=== PATIENT | male | born 1960 | race Caucasian/White ===

== ENCOUNTER 2022-11-11 15:32 | Emergency (ER) | payer MEDICARE, SELFPAY ==
[2022-11-11 15:34] VITALS: BP 177/106; PULSE 74; RESP 18; TEMP 36.1; O2SAT 99; BMI 27.9
[2022-11-11 15:45] VITALS: BP 193/137; PULSE 66; RESP 12; O2SAT 98
--- NOTE | 2022-11-11 15:51 | EKG12_ITS ---
Test Reason : NAUSEA Blood Pressure : / mmHG Vent. Rate : 058 BPM Atrial Rate : 058 BPM P-R Int : 140 ms QRS Dur : 092 ms QT Int : 424 ms P-R-T Axes : 037 040 044 degrees QTc Int : 416 ms Sinus bradycardia with sinus arrhythmia Otherwise normal ECG Confirmed by FREEMAN GIORDANO, MATILDA ([id number]), proposal editor JARROD BOUDREAUX ([id number]) on 11/13/2022 2:01:17 PM Referred By: Confirmed By:MATILDA MILLARD MD
--- NOTE | 2022-11-11 15:54 | EX.ED.DYSGE1 ---
HPI History of Present Illness Chief Complaint: Nausea/Vomiting Informant: patient Narrative Narrative: Patient is a 62-year-old male with history of heart attack and cyclic vomiting syndrome presenting with abdominal pain, nausea and vomiting. He states his symptoms started on Sunday (4 days ago). His states he over ate and drank the day that the symptoms started. He is new to our hospital but usually will go to [facility] as they just moved to the area from [place]. Patient states that he had 3 bowel movements today. He has lost count of how many times he has vomiting, stating its mostly flem. He is complaining of diffuse abdominal pain. States this feels like his prior episodes of cyclic vomiting syndrome. Reports history of hiatal hernia surgery as well as cholecystectomy. Patient states he normally takes morphine as well as some type of cocktail for his symptoms. He denies any other complaints at this time. Denies any chest pain. [facility] Medical History Heart attack Hiatal hernia Home Medications amlodipine 10 mg tablet 10 mg PO DAILY 11/11/22 [History Last Taken Unknown] aspirin 81 mg chewable tablet 81 mg PO DAILY 11/11/22 [History Last Taken Unknown] atorvastatin 40 mg tablet 40 mg PO DAILY 11/11/22 [History Last Taken Unknown] citalopram 40 mg tablet 40 mg PO DAILY 11/11/22 [History Last Taken Unknown] dicyclomine 20 mg tablet 20 mg PO TID PRN abdominal discomfort #20 tabs 11/11/22 [Rx Last Taken Unknown] fenofibrate 120 mg tablet 145 mg PO DAILY 11/11/22 [History Last Taken Unknown] lisinopril 20 mg tablet 20 mg PO DAILY 11/11/22 [History Last Taken Unknown] meloxicam 15 mg tablet 15 mg PO DAILY PRN UNKNOWN 11/11/22 [History Last Taken Unknown] sucralfate 1 gram tablet 1 g PO 4X/DAY 11/11/22 [History Last Taken Unknown] trazodone 50 mg tablet 75 mg PO DAILY 11/11/22 [History Last Taken Unknown] Allergy/AdvReac Type Severity Reaction Status Date / Time nitrofurantoin Allergy Rash Verified 11/11/22 15:40 [From Macrobid] Penicillins [PCN] Allergy Rash Verified 11/11/22 15:40 Surgical History History of cholecystectomy Social History Smoking Status: Current every day smoker tobacco type: cigarettes ROS ROS ED Constitutional Constitutional ED: Denies chills or fever(s) Cardiovascular Cardiovascular: Denies chest pain Respiratory/Chest Respiratory/Chest: Denies cough Gastrointestinal Gastrointestinal: Reports abdominal pain, nausea and vomiting; Denies constipation or diarrhea Genitourinary Genitourinary ED: Denies dysuria or hematuria Musculoskeletal Musculoskeletal: Denies arthralgias Psychiatric Psychiatric: Reports anxiety EXAM Physical Exam Const Vital Signs: 11/11/22 15:34 11/11/22 15:45 11/11/22 17:24 Temperature 97 F L Temperature Source Temporal Pulse Rate 74 66 61 Respiratory Rate 18 12 14 Blood Pressure 177/106 H 193/137 H 203/103 H Blood Pressure Mean 129 155 136 Pulse Ox 99 98 96 Oxygen Delivery Method Room Air Room Air Room Air 11/11/22 18:52 11/11/22 19:34 Temperature Temperature Source Pulse Rate 74 63 Respiratory Rate 14 18 Blood Pressure 135/73 H 132/79 H Blood Pressure Mean 93 Pulse Ox 92 Oxygen Delivery Method Room Air Positive well nourished and well developed Constitutional Narrative: Uncomfortable appearing, moaning and rolling around in the bed General Appearance ED: well developed HEENT Reports dry mucous membranes Mouth ED: Yes dry mucous membranes Mouth: dry mucous membranes Eyes PERRL Neck supple Chest Wall inspection of chest normal Resp normal respiratory effort and clear to auscultation bilaterally Cardio regular rate, regular rhythm and no murmurs GI normal to inspection, nondistended, normoactive bowel sounds GI Narrative: diffuse tenderness Palpation: soft and tender; Negative for guarding or rebound tenderness present Extremity normal to inspection General Extremety ED: Negative for edema General Extremity: Negative for edema Neuro oriented x3 Sensorium / Orientation: alert Motor Exam: Negative for general weakness Psych mental status grossly normal Mood & Affect: anxious Skin no rashes or lesions noted General Skin Exam: Negative for jaundice MDM MDM MDM Narrative Medical decision making narrative: Clinic think information reviewed from patient. This shows he is most recently at [facility] emergency room on 06/27/2022 for abdominal pain thought to be secondary to cyclic vomiting syndrome. He was seen there 2 days before as well. Patient had a CT of his abdomen and pelvis with IV contrast on 06/25/2022 which showed a moderate hiatal hernia, bilateral adrenal gland thickening suggestive of multiple nodules, indeterminate 1.5 cm density in the left anterior mid kidney and mild circumferential bladder wall thickening which could be related to underdistention or cystitis. Differential for patient includes pancreatitis, gastritis, mesenteric ischemia, cyclic vomiting syndrome, gastroenteritis as well as referred cardiac pain. Patient is hypertensive but is quite uncomfortable. Given his history of cyclic vomiting and his report that this feels like a cyclic vomiting he is given medications based on [facility] cyclic vomiting protocol. We will obtain lab work including a lactate as well as an EKG and troponin in addition to belly labs given his medical history. CBC shows no elevated leukocytosis of 17.8 but otherwise normal. BMP and liver panel largely normal. Creatinine is elevated at 1.29 however review on clinic think shows that this is near his baseline. Lactate is mildly elevated at 2.0 and his troponin is normal. Normal liver function. Urinalysis is consistent with dehydration with 10-25 cast and 15 ketones. On repeat evaluation patient has improvement of his pain and is now resting comfortably. He is asking when he can go home. His blood pressure improved significantly. I suspect his laboratory abnormalities are more reactive and associated dehydration. Repeat abdominal exam is benign. Given his extensive history of cyclic vomiting with similar presentation and now benign abdominal exam I feel that he can be discharged home. is agreeable this plan of care. Patient will be given a prescription for Bentyl as he has had this in the past that is helpful. Patient has multiple nausea medicines at home including Reglan and Zofran. The does go on to state that he gorges himself and continues to eat unhealthy, drink alcohol and smoke which is likely what causes these exacerbations. She also states that there has been discussion with his primary care doctor that he could be developing dementia which likely is exacerbating his symptoms. At this time he is safe to go home however. Patient courage to follow-up with his GI doctor and avoid alcohol as well as smoking. Lab Data Labs: Laboratory Results - last 24 hr 11/11/22 11/11/22 11/11/22 16:02 16:02 16:02 WBC 17.8 H RBC 4.92 Hgb 13.4 Hct 40.6 MCV 82.5 MCH 27.2 MCHC 33.0 RDW Std Deviation 48.3 H RDW Coeff of Florencio 16.1 H Plt Count 456 H MPV 9.3 Immature Gran % (Auto) 0.700 Neut % (Auto) 90.0 H Lymph % (Auto) 5.4 L [place] % (Auto) 3.6 Eos % (Auto) 0.1 Baso % (Auto) 0.2 Absolute Neuts (auto) 16.0 H Absolute Lymphs (auto) 0.96 Nucleated RBC % 0 Sodium 137 Potassium 3.7 Chloride 104 Carbon Dioxide 21.0 Anion Gap 12 BUN 17 Creatinine 1.29 H Estim Creat Clear Calc 47.64 Est GFR (MDRD) Af Amer 53 L Est GFR (MDRD) Non-Af 44 L BUN/Creatinine Ratio 13.2 Glucose 115 H Lactic Acid 2.0 Calcium 9.4 Total Bilirubin 0.60 AST 35 ALT 23 Alkaline Phosphatase 65 Troponin I High Sens 13 Total Protein 7.9 Albumin 4.0 Globulin 3.9 Albumin/Globulin Ratio 1.0 Lipase 141 Urine Color Urine Clarity Urine pH Ur Specific [place] Urine Protein Urine Glucose (UA) Urine Ketones Urine Occult Blood Urine Nitrite Urine Bilirubin Urine Urobilinogen Ur Leukocyte Esterase Urine RBC Urine WBC Ur Squamous Epith Cells Urine Bacteria Hyaline Casts Urine Mucus 11/11/22 18:13 WBC RBC Hgb Hct MCV MCH MCHC RDW Std Deviation RDW Coeff of Fl[place]io Plt Count MPV Immature Gran % (Auto) Neut % (Auto) Lymph % (Auto) [place] % (Auto) Eos % (Auto) Baso % (Auto) Absolute Neuts (auto) Absolute Lymphs (auto) Nucleated RBC % Sodium Potassium Chloride Carbon Dioxide Anion Gap BUN Creatinine Estim Creat Clear Calc Est GFR (MDRD) Af Amer Est GFR (MDRD) Non-Af BUN/Creatinine Ratio Glucose Lactic Acid Calcium Total Bilirubin AST ALT Alkaline Phosphatase Troponin I High Sens Total Protein Albumin Globulin Albumin/Globulin Ratio Lipase Urine Color Yellow Urine Clarity Sl. Cloudy Urine pH 5.0 Ur Specific [place] 1.025 Urine Protein 100 H Urine Glucose (UA) Normal Urine Ketones 15 H Urine Occult Blood 25 H Urine Nitrite Negative Urine Bilirubin 1 H Urine Urobilinogen 1 H Ur Leukocyte Esterase 25 H Urine RBC 0-5 SEEN Urine WBC 0-5 SEEN Ur Squamous Epith Cells 0-5 SEEN Urine Bacteria 0 SEEN Hyaline Casts 10-25 SEEN Urine Mucus 0 SEEN Rhythm Strip Rhythm Strip: Sinus Rhythm Rate: 58 Ectopy: None EKG Initial EKG: Attestation: I personally reviewed and interpreted this EKG as follows: Interpretation: Sinus Rhythm Comments: Normal sinus rhythm at a rate of 58 bpm with sinus arrhythmia Normal axis Normal intervals Normal ST segments Discharge Plan Triage Chief Complaint: Nausea/Vomiting ED Provider: Germania Maldonado Dx/Rx/DC Orders Clinical Impression: Cyclic vomiting syndrome, Nausea & vomiting, Abdominal pain, Acute dehydration Instructions: ED Cyclic Vomiting Syndrome Prescriptions: New dicyclomine 20 mg tablet 20 mg PO TID PRN (Reason: abdominal discomfort) Qty: 20 0RF No Action atorvastatin 40 mg Tablet 40 mg PO DAILY citalopram 40 mg Tablet 40 mg PO DAILY trazodone 50 mg Tablet 75 mg PO DAILY meloxicam 15 mg Tablet 15 mg PO DAILY PRN (Reason: UNKNOWN) sucralfate 1 gram Tablet 1 g PO 4X/DAY lisinopril 20 mg Tablet 20 mg PO DAILY amlodipine 10 mg Tablet 10 mg PO DAILY aspirin 81 mg Tablet,Chewable 81 mg PO DAILY fenofibrate 120 mg Tablet 145 mg PO DAILY Primary Care Provider: Arias Lemus Referrals: Arias Lemus [Other] Activity Restrictions/Additional Instructions: IF your pain worsens or changes please return to the ER. Please avoid alcohol, smoking and overeating this is likely can worsen your symptoms. Take your nausea and antacid medicine as directed. Please follow-up with your GI doctor. Disposition Disposition: Home, Self Care Discharge Date/Time: 11/11/22 19:35
[2022-11-11 16:09] LABS: Absolute Lymphocyte Count 0.96 X10^3/uL (0.83-4.51); Basophil# 0.03 X10^3/uL; Basophil% 0.2 % (0-1); Eosinophil# 0.01 X10^3/uL; Eosinophils% 0.1 % (0-5); Hematocrit 40.6 % (37-47); Hemoglobin 13.4 g/dL (12.0-15.0); Lymphocyte # 0.96 X10^3/ul (0.83-4.51); Lymphocyte % 5.4 % (19-41); Mean Corpuscular Hgb 27.2 pg (27.0-32.0); Mean Corpuscular Volume 82.5 fL (81-99); Mean Platelet Vol. 9.3 fl (6.2-12.0); Monocyte# 0.64 X10^3/uL; Monocyte% 3.6 % (0-10); NRBC Flagged by Analyzer 0 % (0-5); Neutrophil # 16.02 X10^3/uL (2.7-7.7); Platelet Count 456 K/mm3 (150-450); RBC Distribution Width CV 16.1 % (11.6-14.6); RBC Distribution Width SD 48.3 fl (35.1-43.9); Red Blood Count 4.92 M/mm3 (4.2-5.4); White Blood Count 17.8 K/mm3 (4.4-11.0)
[2022-11-11] MEDS: 0.9% Normal Saline 1,000 ML 1000 ML IV (16:15)
[2022-11-11] MEDS: LORazepam 2 MG/ML Syringe 0.5 MG IV (16:25)
[2022-11-11] MEDS: Famotidine 200 MG/20 ML MDV 20 MG in 0.9% Normal Saline (Pres. free 8 ML 300 MG IV (16:27)
[2022-11-11] MEDS: Ondansetron 4 MG/2 ML Vial IV (16:27)
[2022-11-11 16:32] LABS: AST(SGOT) 35 U/L (15-37); Alanine Aminotransfer ALT/SGPT 23 U/L (13-56); Alkaline Phosphatase 65 U/L (45-117); Anion Gap 12 (5-15); BUN 17 mg/dL (7-18); BUN/Creat Ratio 13.2 RATIO (10-20); Calcium,Total 9.4 mg/dL (8.5-10.1); Chloride 104 mmol/L (98-107); Creatinine, Serum 1.29 mg/dL (0.55-1.02); EST Glomerular Filtration Rate 44 mL/min (>60); Est Glom Filt Rate - Afr Amer 53 mL/min (>60); Estimated Creatinine Clearance 47.64 ml/min; Globulin 3.9 g/dL (2.2-4.2); Glucose 115 mg/dL (74-106); Lipase 141 U/L (73-393); Potassium 3.7 mmol/L (3.5-5.1); Protein, Total 7.9 g/dL (6.4-8.2); Sodium Level 137 mmol/L (136-145); Troponin-I HS 13 pg/mL (3.0-54.0)
[2022-11-11 17:24] VITALS: BP 203/103; PULSE 61; RESP 14; O2SAT 96
[2022-11-11 18:20] LABS: Bacteria 0 SEEN /hpf (None Seen); Color, Urine Yellow (Yellow); Glucose, Dipstick Normal (Normal); Ketone-Dipstick 15 mg/dl (Negative); Leukocyte Esterase-Dipstick 25 /ul (Negative); Mucous, Urine 0 SEEN /hpf (<or=2+); Nitrite-Dipstick Negative (Negative); Occult Blood-Urine 25 /ul (Negative); Protein-Dipstick 100 mg/dl (Negative); Specific Gravity, Urine 1.025 (1.002-1.030); Urine Clarity Sl. Cloudy (Clear); Urine Urobilinogen 1 mg/dl (Normal)
[2022-11-11 18:37] LABS: Urine Bilirubin Dipstick 1 mg/dL (Negative)
[2022-11-11 18:38] LABS: White Blood Cells 0-5 SEEN /hpf (0-5)
[2022-11-11 18:39] LABS: Hyaline Cast 10-25 SEEN /lpf (0-5); Red Blood Cells-Urine 0-5 SEEN /hpf (0-5); Squamous Epithelial Cells - UA 0-5 SEEN /hpf (5-10)
[2022-11-11 18:52] VITALS: BP 135/73; PULSE 74; RESP 14; O2SAT 92
[2022-11-11 19:34] VITALS: BP 132/79; PULSE 63; RESP 18
[2022-11-11 20:07] LABS: Reflex Lactate? Y
== END 2022-11-11 19:35 | disposition home or self-care (01) ==
PROVIDERS: Emergency Provider Emergency Medicine; Visit Provider Emergency Medicine
DX: R11.15 Cyclical vomiting syndrome unrelated to migraine (principal); R11.2 Nausea with vomiting, unspecified; R10.9 Unspecified abdominal pain; E86.0 Dehydration; F17.210 Nicotine dependence, cigarettes, uncomplicated; I25.2 Old myocardial infarction; Z79.82 Long term (current) use of aspirin; Z79.899 Other long term (current) drug therapy
CPT/HCPCS: 80053; 81001; 83605; 83690; 84484; 85025; 93005; 96365; 96367; 96376; 99283; J7030; A4216; J2405; J3490

== ENCOUNTER 2022-11-17 15:33 | Emergency (ER) | payer MEDICARE, SELFPAY ==
[2022-11-17 15:35] VITALS: BP 148/118; PULSE 120; RESP 18; TEMP 36.6; O2SAT 96
--- NOTE | 2022-11-17 17:26 | EKG12_ITS ---
Test Reason : CP Blood Pressure : / mmHG Vent. Rate : 099 BPM Atrial Rate : 099 BPM P-R Int : 142 ms QRS Dur : 094 ms QT Int : 372 ms P-R-T Axes : 055 050 049 degrees QTc Int : 477 ms Sinus rhythm with Premature supraventricular complexes Cannot rule out Inferior infarct , age undetermined Abnormal ECG Confirmed by KATTY GIORDANO, ROBERT ([id number]), editor managing director JARROD BOUDREAUX ([id number]) on 11/22/2022 1:28:20 PM Referred By: DARRYL Confirmed By:ROBERT ALANIZ MD
--- NOTE | 2022-11-17 17:28 | ED.VIS.GI ---
HPI HPI - GI History of Present Illness Chief Complaint: Abd Pain Informant: patient Abdominal Pain/Flank Pain Onset: Today Context: Gradual Onset Timing: Continuous Quality: Stabbing Location: Diffuse Worsened by: Nothing Relieved by: Nothing Nausea/Vomiting/Emesis GI Symptom: Positive for Nausea and Vomiting Onset: Today Severity: Severe Diarrhea/Melena/Hematochezia GI Symptom: Positive for Diarrhea; Negative for Melena or Hematochezia Associated Symptoms Associated Symptoms: Negative for Dysuria, Frequency or Hematuria Narrative Narrative: Patient presents with nausea and vomiting that began again today. Patient has a history of cyclic vomiting syndrome and started having some nausea and vomiting today. Patient admits to some abdominal pain that is diffuse. Patient states nothing makes it better nothing makes it worse. Patient describes his pain as stabbing. Patient denies any hematemesis or coffee-ground emesis. Patient admits to some diarrhea but denies any melena or hematochezia. Patient denies any dysuria, hematuria, or frequency. [facility] Medical History Heart attack Hiatal hernia Home Medications amlodipine 10 mg tablet 10 mg PO DAILY 11/11/22 [History Last Taken Unknown] aspirin 81 mg chewable tablet 81 mg PO DAILY 11/11/22 [History Last Taken Unknown] atorvastatin 40 mg tablet 40 mg PO DAILY 11/11/22 [History Last Taken Unknown] citalopram 40 mg tablet 40 mg PO DAILY 11/11/22 [History Last Taken Unknown] dicyclomine 20 mg tablet 20 mg PO TID PRN abdominal discomfort #20 tabs 11/11/22 [Rx Last Taken Unknown] fenofibrate 120 mg tablet 145 mg PO DAILY 11/11/22 [History Last Taken Unknown] lisinopril 20 mg tablet 20 mg PO DAILY 11/11/22 [History Last Taken Unknown] meloxicam 15 mg tablet 15 mg PO DAILY PRN UNKNOWN 11/11/22 [History Last Taken Unknown] sucralfate 1 gram tablet 1 g PO 4X/DAY 11/11/22 [History Last Taken Unknown] trazodone 50 mg tablet 75 mg PO DAILY 11/11/22 [History Last Taken Unknown] Allergy/AdvReac Type Severity Reaction Status Date / Time nitrofurantoin Allergy Rash Verified 11/11/22 15:40 [From Macrobid] Penicillins [PCN] Allergy Rash Verified 11/11/22 15:40 Surgical History History of cholecystectomy Social History Smoking Status: Current every day smoker tobacco type: cigars ROS ROS ED Constitutional Constitutional ED: Denies chills or fever(s) Eyes Eyes: Denies blurry vision or change in vision ENT ENT ED: Reports rhinorrhea; Denies sore throat Cardiovascular Cardiovascular: Denies chest pain or palpitations Respiratory/Chest Respiratory/Chest: Denies cough or dyspnea Gastrointestinal Gastrointestinal: Reports abdominal pain, diarrhea, nausea and vomiting Genitourinary Genitourinary ED: Denies dysuria or hematuria Musculoskeletal Musculoskeletal: Denies back pain or neck pain Integumentary Denies abscess or rash Neurologic Neurologic: Denies headache(s) or weakness Allergic/Immunologic Allergic/Immunologic ED: Denies mouth swelling or urticaria EXAM Physical Exam Const Vital Signs: 11/17/22 15:35 11/17/22 18:24 Temperature 97.8 F Temperature Source Temporal Pulse Rate 120 H 86 Respiratory Rate 18 18 Blood Pressure 148/118 H Blood Pressure Mean 128 Pulse Ox 96 96 Oxygen Delivery Method Room Air Room Air Positive well nourished and well developed General Appearance ED: well developed HEENT Reports moist mucous membranes Neck supple and no JVD Resp normal respiratory effort and clear to auscultation bilaterally Cardio regular rate and regular rhythm GI normal to inspection, nondistended, normoactive bowel sounds Palpation: soft and tender epigastric, LLQ, RLQ, LUQ, RUQ, periumbilical and suprapubic; Negative for guarding or rebound tenderness present Extremity normal to inspection General Extremety ED: Negative for edema or tenderness General Extremity: Negative for edema Neuro oriented x3, CN's II-XII intact bilaterally and no sensory deficits noted Sensorium / Orientation: alert Motor Exam: strength 5/5 throughout Psych mental status grossly normal Skin no rashes or lesions noted MDM MDM MDM Narrative Medical decision making narrative: Differential diagnosis includes cyclic vomiting, gastroparesis, bowel obstruction, perforation, gastroenteritis, was in pancreatitis. CBC will be obtained to assess for leukocytosis and anemia. Comprehensive metabolic profile will be obtained to assess for hepatic function, renal function, and electrolyte abnormality. Lipase will be obtained to assess for pancreatitis. Lab Data Attestation: I reviewed the patient's lab results. Lab results narrative: CBC was reviewed and showed a mild leukocytosis of 14.4. This was improved compared to previous result. Comprehensive metabolic profile was reviewed. Creatinine was slightly elevated at 1.31. CO2 was slightly low at 18. Anion gap was normal. Lipase was reviewed and was normal. Labs: Laboratory Results - last 24 hr 11/17/22 11/17/22 17:00 17:00 WBC 14.4 H RBC 5.21 Hgb 13.9 Hct 43.1 MCV 82.7 MCH 26.7 L MCHC 32.3 RDW Std Deviation 51.3 H RDW Coeff of Florencio 17.2 H Plt Count 464 H MPV 10.2 Immature Gran % (Auto) 0.900 Neut % (Auto) 90.3 H Lymph % (Auto) 5.4 L [place] % (Auto) 3.2 Eos % (Auto) 0.0 Baso % (Auto) 0.2 Absolute Neuts (auto) 13.0 H Absolute Lymphs (auto) 0.78 L Nucleated RBC % 0 Sodium 142 Potassium 4.0 Chloride 111 H Carbon Dioxide 18.0 L Anion Gap 13 BUN 7 Creatinine 1.31 H Estim Creat Clear Calc 58.82 Est GFR (MDRD) Af Amer 71 Est GFR (MDRD) Non-Af 58 L BUN/Creatinine Ratio 5.3 L Glucose 149 H Calcium 10.3 H Total Bilirubin 0.50 AST 30 ALT 22 Alkaline Phosphatase 64 Total Protein 8.2 Albumin 4.2 Globulin 4.0 Albumin/Globulin Ratio 1.0 Lipase 110 EKG Initial EKG: Attestation: I personally reviewed and interpreted this EKG as follows: Interpretation: Sinus Rhythm and No Acute Injury Pattern Comments: EKG was ordered by nursing protocol. On my interpretation it shows a normal sinus rhythm with occasional PACs with a rate of 99. AL interval, QRS normal, QTc intervals are within normal limits. [place] is normal. There are no acute ST or T wave changes. Prior EKG tracings: available for review Prior: Unchanged (11/11/2022) Treatment and Re-Evaluation Narrative: Patient was given IV fluids, Pepcid, Ativan, and Zofran per cyclic vomiting protocol. Patient is feeling better on reevaluation. Patient was instructed to start with a liquid diet and advance to a bland diet and then to a regular diet as she feels better. Patient was instructed to follow-up with his primary care physician in 5 to 7 days. Patient understood and was agreeable with the plan. All questions were answered. Discharge Plan Triage Chief Complaint: Abd Pain Other Complaint: Nausea/Vomiting ED Provider: Pieter Yoon Dx/Rx/DC Orders Clinical Impression: Cyclic vomiting syndrome, Nausea & vomiting Instructions: ED Cyclic Vomiting Syndrome, ED Vomiting (Adult) Prescriptions: No Action atorvastatin 40 mg Tablet 40 mg PO DAILY citalopram 40 mg Tablet 40 mg PO DAILY trazodone 50 mg Tablet 75 mg PO DAILY meloxicam 15 mg Tablet 15 mg PO DAILY PRN (Reason: UNKNOWN) sucralfate 1 gram Tablet 1 g PO 4X/DAY lisinopril 20 mg Tablet 20 mg PO DAILY amlodipine 10 mg Tablet 10 mg PO DAILY aspirin 81 mg Tablet,Chewable 81 mg PO DAILY fenofibrate 120 mg Tablet 145 mg PO DAILY dicyclomine 20 mg tablet 20 mg PO TID PRN (Reason: abdominal discomfort) Qty: 20 0RF Primary Care Provider: Care Physician,No Primary Referrals: Care Physician,No Primary [Primary Care Provider] - Doctor,Your [Non-Staff] - 3-5 Days Disposition Disposition: Home, Self Care
[2022-11-17] MEDS: LORazepam 2 MG/ML Syringe 0.5 MG IV (17:41)
[2022-11-17] MEDS: Ondansetron 4 MG/2 ML Vial IV (17:41)
[2022-11-17 17:47] VITALS: BMI 28.7
[2022-11-17 17:48] LABS: Absolute Lymphocyte Count 0.78 X10^3/uL (0.83-4.51); Basophil# 0.03 X10^3/uL; Basophil% 0.2 % (0-1); Hematocrit 43.1 % (40-54); Hemoglobin 13.9 g/dL (13.0-16.5); Lymphocyte # 0.78 X10^3/ul (0.83-4.51); Lymphocyte % 5.4 % (19-41); Mean Corp Hgb Conc 32.3 g/dL (32-36); Mean Corpuscular Hgb 26.7 pg (27.0-32.0); Mean Corpuscular Volume 82.7 fL (80-94); Mean Platelet Vol. 10.2 fl (6.2-12.0); Monocyte# 0.46 X10^3/uL; Monocyte% 3.2 % (0-10); NRBC Flagged by Analyzer 0 % (0-5); Neutrophil # 12.95 X10^3/uL (2.7-7.7); Neutrophil % 90.3 % (47-70); Platelet Count 464 K/mm3 (150-450); RBC Distribution Width CV 17.2 % (11.6-14.6); RBC Distribution Width SD 51.3 fl (35.1-43.9); Red Blood Count 5.21 M/mm3 (4.6-6.2); White Blood Count 14.4 K/mm3 (4.4-11.0)
--- NOTE | 2022-11-17 18:12 | ED.RN ---
[facility] STILL NOT ABLE TO BE LOCATED IN ER, CALLED PHARMACY
[2022-11-17] MEDS: Famotidine 200 MG/20 ML MDV 20 MG in 0.9% Normal Saline (Pres. free 8 ML 300 MG IV (18:22)
[2022-11-17 18:23] LABS: AST(SGOT) 30 U/L (15-37); Alanine Aminotransfer ALT/SGPT 22 U/L (16-61); Albumin, Serum 4.2 g/dL (3.2-5.0); Alkaline Phosphatase 64 U/L (45-117); Anion Gap 13 (5-15); BUN 7 mg/dL (7-18); BUN/Creat Ratio 5.3 RATIO (10-20); Calcium,Total 10.3 mg/dL (8.5-10.1); Chloride 111 mmol/L (98-107); Creatinine, Serum 1.31 mg/dL (0.70-1.30); EST Glomerular Filtration Rate 58 mL/min (>60); Est Glom Filt Rate - Afr Amer 71 mL/min (>60); Estimated Creatinine Clearance 58.82 ml/min; Glucose 149 mg/dL (74-106); Lipase 110 U/L (73-393); Protein, Total 8.2 g/dL (6.4-8.2); Sodium Level 142 mmol/L (136-145)
[2022-11-17 18:24] VITALS: PULSE 86; RESP 18; O2SAT 96
[2022-11-17 20:15] VITALS: BP 132/74; PULSE 78; RESP 18; O2SAT 97
== END 2022-11-17 20:16 | disposition home or self-care (01) ==
PROVIDERS: Emergency Provider Emergency Medicine; Visit Provider Emergency Medicine
DX: R11.15 Cyclical vomiting syndrome unrelated to migraine (principal); I25.2 Old myocardial infarction; F17.290 Nicotine dependence, other tobacco product, uncomplicated; Z79.82 Long term (current) use of aspirin
CPT/HCPCS: 80053; 83690; 85025; 93005; 96374; 96375; 99283; J7030; A4216; J2405; J3490

== ENCOUNTER 2022-12-06 09:44 | Emergency (ER) | payer MEDICARE, SELFPAY ==
[2022-12-06 09:45] VITALS: BP 173/119; PULSE 97; RESP 20; TEMP 36.1; O2SAT 98; BMI 28.7
--- NOTE | 2022-12-06 10:07 | EDS_ITS ---
HPI History of Present Illness Chief Complaint: Nausea/Vomiting Informant: patient Onset/Context/Timing Onset: Today Current Severity: Moderate Maximum Severity: Severe Narrative Narrative: Patient presents secondary to epigastric abdominal pain with nausea and vomiting. He states he ate lasagna and chips and salsa last night. He woke early this morning with abdominal pain and vomiting. He states he does have a history of cyclic vomiting but thinks this was triggered by what he ate. Patient denies fever or chills. He has had soft stool, but states this is common for him since he had his cholecystectomy. [facility] Medical History Heart attack Hiatal hernia Home Medications amlodipine 10 mg tablet 10 mg PO DAILY 11/11/22 [History Last Taken Unknown] aspirin 81 mg chewable tablet 81 mg PO DAILY 11/11/22 [History Last Taken Unknown] atorvastatin 40 mg tablet 40 mg PO DAILY 11/11/22 [History Last Taken Unknown] citalopram 40 mg tablet 40 mg PO DAILY 11/11/22 [History Last Taken Unknown] dicyclomine 20 mg tablet 20 mg PO TID PRN abdominal discomfort #20 tabs 11/11/22 [Rx Last Taken Unknown] fenofibrate 120 mg tablet 145 mg PO DAILY 11/11/22 [History Last Taken Unknown] lisinopril 20 mg tablet 20 mg PO DAILY 11/11/22 [History Last Taken Unknown] meloxicam 15 mg tablet 15 mg PO DAILY PRN UNKNOWN 11/11/22 [History Last Taken Unknown] sucralfate 1 gram tablet 1 g PO 4X/DAY 11/11/22 [History Last Taken Unknown] trazodone 50 mg tablet 75 mg PO DAILY 11/11/22 [History Last Taken Unknown] dicyclomine 20 mg tablet 20 mg PO TID PRN abdominal cramping #14 tabs 12/06/22 [Rx Last Taken Unknown] ondansetron 4 mg disintegrating tablet 4 mg PO Q8H PRN PRN Nausea #10 tabs 12/06/22 [Rx Last Taken Unknown] Allergy/AdvReac Type Severity Reaction Status Date / Time nitrofurantoin Allergy Rash Verified 12/06/22 09:45 [From Macrobid] Penicillins [PCN] Allergy Rash Verified 12/06/22 09:45 Surgical History History of cholecystectomy Social History Smoking Status: Current every day smoker tobacco type: cigars ROS ROS ED Constitutional Constitutional ED: Denies chills or fever(s) Eyes Eyes: Denies change in vision or discharge from eye(s) ENT ENT ED: Denies discharge from eye(s), rhinorrhea or sore throat Cardiovascular Cardiovascular: Denies chest pain or palpitations Respiratory/Chest Respiratory/Chest: Denies cough or dyspnea Gastrointestinal Gastrointestinal: Reports abdominal pain, diarrhea, nausea and vomiting Genitourinary Genitourinary ED: Denies dysuria Musculoskeletal Musculoskeletal: Denies back pain or extremity pain Integumentary Denies Abrasions or rash Neurologic Neurologic: Denies headache(s) or weakness Psychiatric Psychiatric: Denies anxiety or depression Allergic/Immunologic Allergic/Immunologic ED: Denies lip swelling or urticaria EXAM Physical Exam Const Vital Signs: 12/06/22 09:45 12/06/22 12:19 12/06/22 13:00 Temperature 97 F L Temperature Source Temporal Pulse Rate 97 73 Respiratory Rate 20 H 18 Blood Pressure 173/119 H 185/117 H 188/97 H Blood Pressure Mean 137 139 127 Pulse Ox 98 98 Oxygen Delivery Method Room Air Room Air 12/06/22 14:02 Temperature Temperature Source Pulse Rate 72 Respiratory Rate 18 Blood Pressure 160/86 H Blood Pressure Mean 110 Pulse Ox Oxygen Delivery Method Room Air Positive well nourished and well developed General Appearance ED: well developed HEENT Reports normocephalic and head/scalp atraumatic Eyes PERRL and EOMs intact bilaterally Neck supple Chest Wall inspection of chest normal and palpation of chest normal Resp normal respiratory effort and clear to auscultation bilaterally Cardio regular rate and regular rhythm GI GI Narrative: Abdomen soft with mild epigastric tenderness to palpation. No guarding or rebound. Palpation: soft Extremity normal to inspection Neuro oriented x3 and no sensory deficits noted Sensorium / Orientation: alert Motor Exam: strength 5/5 throughout Psych mental status grossly normal Skin no rashes or lesions noted MDM MDM MDM Narrative Medical decision making narrative: Patient initially given IV fluids along with Zofran, Protonix, Bentyl. Labwork obtained to evaluate for leukocytosis, anemia, and electrolyte derangement. Lab Data Attestation: I reviewed the patient's lab results. Labs: Laboratory Results - last 24 hr 12/06/22 12/06/22 10:30 10:30 WBC 10.4 RBC 4.69 Hgb 12.7 L Hct 39.6 L MCV 84.4 MCH 27.1 MCHC 32.1 RDW Std Deviation 51.8 H RDW Coeff of Florencio 16.9 H Plt Count 387 MPV 9.9 Immature Gran % (Auto) 0.500 Neut % (Auto) 89.1 H Lymph % (Auto) 7.3 L [place] % (Auto) 2.5 Eos % (Auto) 0.2 Baso % (Auto) 0.4 Absolute Neuts (auto) 9.3 H Absolute Lymphs (auto) 0.76 L Nucleated RBC % 0 Sodium 141 Potassium 4.1 Chloride 108 H Carbon Dioxide 23.0 Anion Gap 10 BUN 12 Creatinine 1.05 Estim Creat Clear Calc 73.39 Est GFR (MDRD) Af Amer 91 Est GFR (MDRD) Non-Af 75 BUN/Creatinine Ratio 11.4 Glucose 117 H Calcium 9.5 Total Bilirubin 0.30 Direct Bilirubin < 0.05 AST 31 ALT 19 Alkaline Phosphatase 63 Total Protein 7.6 Albumin 3.7 Globulin 3.9 Lipase 167 Radiography Diagnostic Testing: Clinical Impression(s) from Imaging Studies Abdomen/Pelvis CT 12/06/22 13:08 IMPRESSION: 1. Slightly complex debris-filled partially exophytic cyst at the lateral aspect of the midpole of the right kidney measures 3.05 x 3.17 cm with a Bosniak 3 classification should be followed up by the nephrology/renal service. 2. Multiple bilateral renal cysts 3. No acute process. Electronically Signed: Mamadou Segovia MD at 13:49 EDT , Treatment and Re-Evaluation :: CBC and chemistry studies unremarkable other than mild anemia with a hemoglobin of 12.7. LFTs are normal. Lipase is normal at 167. Patient did not have significant improvement in his symptoms with the initial round of medication. He was then given Phenergan and morphine. I was notified by nursing staff that he was still complaining of pain. His was concerned that his blood pressure was elevated in the 190s. He was not able to take his blood pressure medicine this morning. He was given a small dose of Dilaudid as well as a dose of IV labetalol. CT scan of the flank is obtained. This reveals evidence of a cyst on his right ovary, but no other acute findings are noted. On repeat evaluation at this time patient states he feels much improved. He will be given prescription for Zofran and Bentyl at home. He will be referred to Dr. Cerna for follow-up given his renal cyst. Return instructions given. Discharge Plan Triage Chief Complaint: Nausea/Vomiting ED Provider: Patience Lane Dx/Rx/DC Orders Clinical Impression: Vomiting, Renal cyst Instructions: ED Vomiting (Adult) Prescriptions: New dicyclomine 20 mg tablet 20 mg PO TID PRN (Reason: abdominal cramping) Qty: 14 0RF ondansetron 4 mg tablet,disintegrating 4 mg PO Q8H PRN PRN (Reason: Nausea) Qty: 10 0RF No Action atorvastatin 40 mg Tablet 40 mg PO DAILY citalopram 40 mg Tablet 40 mg PO DAILY trazodone 50 mg Tablet 75 mg PO DAILY meloxicam 15 mg Tablet 15 mg PO DAILY PRN (Reason: UNKNOWN) sucralfate 1 gram Tablet 1 g PO 4X/DAY lisinopril 20 mg Tablet 20 mg PO DAILY amlodipine 10 mg Tablet 10 mg PO DAILY aspirin 81 mg Tablet,Chewable 81 mg PO DAILY fenofibrate 120 mg Tablet 145 mg PO DAILY dicyclomine 20 mg tablet 20 mg PO TID PRN (Reason: abdominal discomfort) Qty: 20 0RF Primary Care Provider: Care Physician,No Primary Referrals: Ba Cerna MD [Med Staff - Active Staff] - 1-2 Weeks Care Physician,No Primary [Primary Care Provider] - Activity Restrictions/Additional Instructions: Please follow-up with Dr. Cerna, urologist, secondary to the renal cyst noted on your CAT scan. Disposition Disposition: Home, Self Care
[2022-12-06] MEDS: Dicyclomine 20 MG/2 ML Vial IM (10:26)
[2022-12-06] MEDS: Ondansetron 4 MG/2 ML Vial IV (10:29)
[2022-12-06] MEDS: 0.9% Normal Saline 1,000 ML 1000 ML IV (10:29)
[2022-12-06] MEDS: 0.9% Normal Saline 1,000 ML 150 ML IV (10:36)
[2022-12-06 10:42] LABS: Absolute Lymphocyte Count 0.76 X10^3/uL (0.83-4.51); Absolute Neutrophil Count 9.3 X10^3/uL (2.0-7.7); Basophil# 0.04 X10^3/uL; Basophil% 0.4 % (0-1); Eosinophil# 0.02 X10^3/uL; Eosinophils% 0.2 % (0-5); Hematocrit 39.6 % (40-54); Hemoglobin 12.7 g/dL (13.0-16.5); Lymphocyte # 0.76 X10^3/ul (0.83-4.51); Lymphocyte % 7.3 % (19-41); Mean Corp Hgb Conc 32.1 g/dL (32-36); Mean Corpuscular Hgb 27.1 pg (27.0-32.0); Mean Corpuscular Volume 84.4 fL (80-94); Mean Platelet Vol. 9.9 fl (6.2-12.0); Monocyte# 0.26 X10^3/uL; Monocyte% 2.5 % (0-10); NRBC Flagged by Analyzer 0 % (0-5); Neutrophil # 9.27 X10^3/uL (2.7-7.7); Neutrophil % 89.1 % (47-70); Platelet Count 387 K/mm3 (150-450); RBC Distribution Width CV 16.9 % (11.6-14.6); RBC Distribution Width SD 51.8 fl (35.1-43.9); Red Blood Count 4.69 M/mm3 (4.6-6.2); White Blood Count 10.4 K/mm3 (4.4-11.0)
[2022-12-06 11:02] LABS: AST(SGOT) 31 U/L (15-37); Alanine Aminotransfer ALT/SGPT 19 U/L (16-61); Albumin, Serum 3.7 g/dL (3.2-5.0); Alkaline Phosphatase 63 U/L (45-117); Anion Gap 10 (5-15); BUN 12 mg/dL (7-18); BUN/Creat Ratio 11.4 RATIO (10-20); Bilirubin, Direct < 0.05 mg/dL (0.00-0.30); Calcium,Total 9.5 mg/dL (8.5-10.1); Chloride 108 mmol/L (98-107); Creatinine, Serum 1.05 mg/dL (0.70-1.30); EST Glomerular Filtration Rate 75 mL/min (>60); Est Glom Filt Rate - Afr Amer 91 mL/min (>60); Estimated Creatinine Clearance 73.39 ml/min; Globulin 3.9 g/dL (2.2-4.2); Glucose 117 mg/dL (74-106); Lipase 167 U/L (73-393); Potassium 4.1 mmol/L (3.5-5.1); Protein, Total 7.6 g/dL (6.4-8.2); Sodium Level 141 mmol/L (136-145)
[2022-12-06] MEDS: proMETHazine 25 MG/ML Syringe 12.5 MG IM (11:58)
[2022-12-06] MEDS: Morphine 4 MG/ML Syringe IV (11:58)
[2022-12-06 12:19] VITALS: BP 185/117; PULSE 73; RESP 18; O2SAT 98
[2022-12-06 13:00] VITALS: BP 188/97
--- NOTE | 2022-12-06 13:08 | CT_ITS ---
STUDY: CT ABDOMEN AND PELVIS WITHOUT CONTRAST REASON FOR EXAM: Male, 62 years old. VOMITING SINCE 89. I GOT THE CYCLIC VOMITING SYNDROME. CHOLECYSTECTOM RADIATION DOSAGE (If Supplied By Facility): CTDIvol = ( 10.69 ) mGy, DLP = ( 615.54 ) mGycm TECHNIQUE: Transaxial images were obtained from the dome of the diaphragm to the symphysis pubis without oral contrast, and without intravenous contrast. Sagittal and coronal images were reconstructed. Individualized dose optimization techniques were used for this CT. COMPARISON: None. FINDINGS: The visualized lung bases are unremarkable. The visualized portions of the heart are within normal limits. Normal liver. Mild postcholecystectomy intrahepatic biliary duct dilatation. There are surgical clips in the gallbladder fossa consistent with a prior cholecystectomy. Normal spleen. Normal pancreas. There is symmetric enlargement of the adrenal glands suggesting adrenal hyperplasia. Small benign adrenal myolipoma is also seen in the medial limb and superior aspect of the right adrenal gland. Multiple small cysts are present in both kidneys as well as chronic appearing cortical lobularity and thinning. Mild perinephric stranding is also present bilaterally most likely due to chronic nonspecified medical renal disease. Slightly complex debris-filled partially exophytic cyst at the lateral aspect of the midpole of the right kidney measures 3.05 x 3.17 cm with a Bosniak 3 classification should be followed up by the nephrology/renal service. A large cortical-based exophytic cyst is present at the inferior pole of the left kidney measuring 7.90 cm in diameter. This cyst has simple/benign features. There is no demonstrated hydronephrosis. There is a moderate size hiatal hernia composed mostly of the fundus of the stomach. Normal small intestine. Normal colon. The appendix is visualized and appears normal. No free air or free fluid or bowel dilatation is seen. There is no evidence of bowel obstruction. There is diffuse atherosclerotic calcification of the abdominal aorta, without a demonstrated aneurysm. Normal inferior vena cava. Normal retroperitoneum. Normal urinary bladder. Normal abdominal wall. There are diffuse degenerative changes of the visualized lumbar spine. CT/Abdomen/Pelvis W IV Cont ONLY IMPRESSION: 1. Slightly complex debris-filled partially exophytic cyst at the lateral aspect of the midpole of the right kidney measures 3.05 x 3.17 cm with a Bosniak 3 classification should be followed up by the nephrology/renal service. 2. Multiple bilateral renal cysts 3. No acute process. Electronically Signed: Mamadou Segovia MD at 13:49 EDT ,
[2022-12-06] MEDS: HYDROmorphone 0.5 MG/0.5 ML SYRINGE IV (13:32)
[2022-12-06] MEDS: Labetalol (Prefilled) 20 MG/4 ML 10 MG IV (13:33)
[2022-12-06 14:02] VITALS: BP 160/86; PULSE 72; RESP 18
== END 2022-12-06 14:40 | disposition home or self-care (01) ==
PROVIDERS: Emergency Provider Emergency Medicine; Visit Provider Emergency Medicine
DX: R11.2 Nausea with vomiting, unspecified (principal); N28.1 Cyst of kidney, acquired; F17.290 Nicotine dependence, other tobacco product, uncomplicated; I25.2 Old myocardial infarction
CPT/HCPCS: 74177; 80048; 80076; 83690; 85025; 96365; 96372; 96375; 99283; J7030; Q9967; A4216; J2405

== ENCOUNTER 2022-12-27 15:31 | Emergency (ER) | payer MEDICARE, SELFPAY ==
[2022-12-27 15:32] VITALS: BP 190/102; PULSE 100; RESP 18; TEMP 35.5; O2SAT 98
[2022-12-27] MEDS: 0.9% Normal Saline 1,000 ML 1000 ML IV (16:10)
[2022-12-27 16:17] LABS: Absolute Lymphocyte Count 1.02 X10^3/uL (0.83-4.51); Absolute Neutrophil Count 13.3 X10^3/uL (2.0-7.7); Basophil# 0.05 X10^3/uL; Basophil% 0.3 % (0-1); Eosinophil# 0.01 X10^3/uL; Eosinophils% 0.1 % (0-5); Hematocrit 43.9 % (40-54); Hemoglobin 13.4 g/dL (13.0-16.5); Lymphocyte # 1.02 X10^3/ul (0.83-4.51); Lymphocyte % 6.8 % (19-41); Mean Corp Hgb Conc 30.5 g/dL (32-36); Mean Corpuscular Hgb 27.1 pg (27.0-32.0); Mean Corpuscular Volume 88.7 fL (80-94); Mean Platelet Vol. 9.7 fl (6.2-12.0); Monocyte# 0.49 X10^3/uL; Monocyte% 3.3 % (0-10); NRBC Flagged by Analyzer 0 % (0-5); Neutrophil # 13.34 X10^3/uL (2.7-7.7); Neutrophil % 88.9 % (47-70); Platelet Count 503 K/mm3 (150-450); RBC Distribution Width CV 17.6 % (11.6-14.6); RBC Distribution Width SD 57.4 fl (35.1-43.9); Red Blood Count 4.95 M/mm3 (4.6-6.2)
[2022-12-27 16:29] LABS: Anion Gap 10 (5-15); BUN 9 mg/dL (7-18); BUN/Creat Ratio 7.3 RATIO (10-20); Calcium,Total 10.1 mg/dL (8.5-10.1); Chloride 109 mmol/L (98-107); Creatinine, Serum 1.24 mg/dL (0.70-1.30); EST Glomerular Filtration Rate 62 mL/min (>60); Est Glom Filt Rate - Afr Amer 75 mL/min (>60); Glucose 162 mg/dL (74-106); Potassium 4.7 mmol/L (3.5-5.1); Sodium Level 136 mmol/L (136-145)
--- NOTE | 2022-12-27 18:56 | ED.VIS.GI ---
HPI HPI - GI History of Present Illness Chief Complaint: Abd Pain Informant: patient Narrative Narrative: Patient is 62-year-old male with history of hypertension, CAD and cyclic vomiting syndrome with multiple visits for similar complaint presenting with abdominal pain and nausea/vomiting. He states his symptoms started around 730 this morning. He states he probably ate too much yesterday. He notes that he went to his son-in-law's yesterday so has had a a lot of stress. States this feels like his prior episodes except maybe the pain is more severe. Does not report any black or blood in his vomit or his stool. Denies any changes bowel habits. No other complaints at this time. States he has not followed with GI yet because he is so much going on in his personal life. This is the patient's fourth ER visit since October 2022. [facility] Medical History Heart attack Hiatal hernia Home Medications amlodipine 10 mg tablet 10 mg PO DAILY 11/11/22 [History Last Taken Unknown] aspirin 81 mg chewable tablet 81 mg PO DAILY 11/11/22 [History Last Taken Unknown] atorvastatin 40 mg tablet 40 mg PO DAILY 11/11/22 [History Last Taken Unknown] citalopram 40 mg tablet 40 mg PO DAILY 11/11/22 [History Last Taken Unknown] dicyclomine 20 mg tablet 20 mg PO TID PRN abdominal discomfort #20 tabs 11/11/22 [Rx Last Taken Unknown] fenofibrate 120 mg tablet 145 mg PO DAILY 11/11/22 [History Last Taken Unknown] lisinopril 20 mg tablet 20 mg PO DAILY 11/11/22 [History Last Taken Unknown] meloxicam 15 mg tablet 15 mg PO DAILY PRN UNKNOWN 11/11/22 [History Last Taken Unknown] sucralfate 1 gram tablet 1 g PO 4X/DAY 11/11/22 [History Last Taken Unknown] trazodone 50 mg tablet 75 mg PO DAILY 11/11/22 [History Last Taken Unknown] dicyclomine 20 mg tablet 20 mg PO TID PRN abdominal cramping #14 tabs 12/06/22 [Rx Last Taken Unknown] ondansetron 4 mg disintegrating tablet 4 mg PO Q8H PRN PRN Nausea #10 tabs 12/06/22 [Rx Last Taken Unknown] Allergy/AdvReac Type Severity Reaction Status Date / Time nitrofurantoin Allergy Rash Verified 12/27/22 15:32 [From Macrobid] Penicillins [PCN] Allergy Rash Verified 12/27/22 15:32 Surgical History History of cholecystectomy Social History Smoking Status: Current every day smoker tobacco type: cigars ROS ROS ED Constitutional Constitutional ED: Denies chills or fever(s) Cardiovascular Cardiovascular: Denies chest pain Respiratory/Chest Respiratory/Chest: Denies cough Gastrointestinal Gastrointestinal: Reports abdominal pain, nausea and vomiting; Denies constipation or diarrhea Musculoskeletal Musculoskeletal: Denies arthralgias or myalgias Integumentary Denies rash EXAM Physical Exam Const Vital Signs: 12/27/22 15:32 12/27/22 19:59 12/28/22 00:04 Temperature 96 F L Temperature Source Temporal Pulse Rate 100 92 87 Respiratory Rate 18 22 H 20 H Blood Pressure 190/102 H 177/109 H 166/89 H Blood Pressure Mean 131 131 Pulse Ox 98 97 98 Oxygen Delivery Method Room Air Room Air Positive well nourished and well developed Constitutional Narrative: Patient moaning in the bed General Appearance ED: well developed; Negative for pallor HEENT Reports moist mucous membranes normocephalic and atraumatic Eyes PERRL General Eye ED: Negative for scleral icterus Neck supple Resp normal respiratory effort and clear to auscultation bilaterally Cardio regular rate, regular rhythm and no murmurs GI GI Narrative: Diffusely tender. Does not tolerate even light palpation to the abdomen. No change with deep palpation. No rigidity or peritoneal signs however. Auscultation: hypoactive bowel sounds Palpation: soft and tender Extremity full ROM General Extremety ED: Negative for edema General Extremity: Negative for edema Neuro moves all extremities Sensorium / Orientation: alert Psych mental status grossly normal and thought process normal Skin no wounds General Skin Exam: Negative for jaundice or pallor MDM MDM MDM Narrative Medical decision making narrative: Patient is evaluated for recurrent abdominal pain, nausea and vomiting. Vital signs are significant for hypertension. Protocol labs including a CBC and a BMP were ordered. Liver panel and lipase added on for possibility of hepatitis or pancreatitis. Patient is already had a cholecystectomy. Lower suspicion for choledocholithiasis but will check liver enzymes/bilirubin. With extensive history of cyclic vomiting syndrome we will trial a dose of IV Haldol and reevaluate. Patient is also given IV fluids. On repeat evaluation patient states he is only slightly improved. Is then given IV Ativan, Pepcid and Zofran. He has further improvement of his symptoms. Is given a GI cocktail as he now states he just has burning pain. He is also given oral Bentyl. Patient is now able to tolerate p.o. and is resting comfortably. Will be discharged home. Patient has multiple prescriptions for antacids and nausea medicine so I do not think he requires any refills.Patient does have a mild leukocytosis of 15.0 which is nonspecific and could be reactive from his profuse vomiting. Lipase, CMP and CBC otherwise largely normal. No signs of an STANLEY. Do not suspect an acute surgical abnormality. Is not any chest wall crepitus is not having any chest pain and have a low suspicion for Boerhaave/Shanna-Jaime tear. In addition he is not having any hematemesis. At this time I do not think he requires emergent surgical or gastroenterology consult. Lab Data Attestation: I reviewed the patient's lab results. Labs: Laboratory Results - last 24 hr 12/27/22 12/27/22 12/27/22 16:00 16:00 16:48 WBC 15.0 H RBC 4.95 Hgb 13.4 Hct 43.9 MCV 88.7 MCH 27.1 MCHC 30.5 L RDW Std Deviation 57.4 H RDW Coeff of Florencio 17.6 H Plt Count 503 H MPV 9.7 Immature Gran % (Auto) 0.600 Neut % (Auto) 88.9 H Lymph % (Auto) 6.8 L [place] % (Auto) 3.3 Eos % (Auto) 0.1 Baso % (Auto) 0.3 Absolute Neuts (auto) 13.3 H Absolute Lymphs (auto) 1.02 Nucleated RBC % 0 Sodium 136 Potassium 4.7 Chloride 109 H Carbon Dioxide 17.0 L Anion Gap 10 BUN 9 Creatinine 1.24 Est GFR (MDRD) Af Amer 75 Est GFR (MDRD) Non-Af 62 BUN/Creatinine Ratio 7.3 L Glucose 162 H Calcium 10.1 Total Bilirubin 0.40 Direct Bilirubin 0.08 AST 31 ALT 18 Alkaline Phosphatase 64 Total Protein 8.0 Albumin 4.1 Globulin 3.9 Lipase 12/27/22 16:48 WBC RBC Hgb Hct MCV MCH MCHC RDW Std Deviation RDW Coeff of Florencio Plt Count MPV Immature Gran % (Auto) Neut % (Auto) Lymph % (Auto) [place] % (Auto) Eos % (Auto) Baso % (Auto) Absolute Neuts (auto) Absolute Lymphs (auto) Nucleated RBC % Sodium Potassium Chloride Carbon Dioxide Anion Gap BUN Creatinine Est GFR (MDRD) Af Amer Est GFR (MDRD) Non-Af BUN/Creatinine Ratio Glucose Calcium Total Bilirubin Direct Bilirubin AST ALT Alkaline Phosphatase Total Protein Albumin Globulin Lipase 100 Rhythm Strip Rhythm Strip: Sinus Rhythm Rate: 82 Ectopy: None EKG Initial EKG: Attestation: I personally reviewed and interpreted this EKG as follows: Interpretation: Sinus Rhythm Comments: Sinus rhythm at a rate of 82 bpm with sinus arrhythmia Normal axis Normal intervals Normal ST segments Discharge Plan Triage Chief Complaint: Abd Pain Other Complaint: Nausea/Vomiting ED Provider: Germania Maldonado Dx/Rx/DC Orders Clinical Impression: Nausea and vomiting, Cyclic vomiting syndrome, Abdominal pain, chronic, generalized Instructions: ED Cyclic Vomiting Syndrome Prescriptions: No Action atorvastatin 40 mg Tablet 40 mg PO DAILY citalopram 40 mg Tablet 40 mg PO DAILY trazodone 50 mg Tablet 75 mg PO DAILY meloxicam 15 mg Tablet 15 mg PO DAILY PRN (Reason: UNKNOWN) sucralfate 1 gram Tablet 1 g PO 4X/DAY lisinopril 20 mg Tablet 20 mg PO DAILY amlodipine 10 mg Tablet 10 mg PO DAILY aspirin 81 mg Tablet,Chewable 81 mg PO DAILY fenofibrate 120 mg Tablet 145 mg PO DAILY dicyclomine 20 mg tablet 20 mg PO TID PRN (Reason: abdominal discomfort) Qty: 20 0RF dicyclomine 20 mg tablet 20 mg PO TID PRN (Reason: abdominal cramping) Qty: 14 0RF ondansetron 4 mg tablet,disintegrating 4 mg PO Q8H PRN PRN (Reason: Nausea) Qty: 10 0RF Primary Care Provider: Care Physician,No Primary Referrals: Care Physician,No Primary [Primary Care Provider] - Activity Restrictions/Additional Instructions: Please follow-up with your primary care doctor as well as your GI doctor. Take your antacid medications as prescribed. Avoid eating large meals. Disposition Disposition: Home, Self Care Discharge Date/Time: 12/28/22 00:04
[2022-12-27 19:07] VITALS: BMI 27.1
[2022-12-27] MEDS: Haloperidol Lactate 5 MG/ML Vial 2 MG IV (19:08)
[2022-12-27 19:19] LABS: AST(SGOT) 31 U/L (15-37); Alanine Aminotransfer ALT/SGPT 18 U/L (16-61); Albumin, Serum 4.1 g/dL (3.2-5.0); Alkaline Phosphatase 64 U/L (45-117); Bilirubin, Direct 0.08 mg/dL (0.00-0.30); Globulin 3.9 g/dL (2.2-4.2)
[2022-12-27 19:30] LABS: Lipase 100 U/L (73-393)
[2022-12-27 19:59] VITALS: BP 177/109; PULSE 92; RESP 22; O2SAT 97
[2022-12-27] MEDS: LORazepam 2 MG/ML Syringe 0.5 MG IV (20:27)
[2022-12-27] MEDS: Ondansetron 4 MG/2 ML Vial IV (20:27)
[2022-12-27] MEDS: Famotidine 200 MG/20 ML MDV 20 MG in 0.9% Normal Saline (Pres. free 8 ML 300 MG IV (21:12)
[2022-12-27] MEDS: Dicyclomine 10 MG Capsule 20 MG PO (21:52)
[2022-12-27] MEDS: Mag Hydrox/Al Hydrox/Simeth 30 ML UDC PO (21:52)
[2022-12-28 00:04] VITALS: BP 166/89; PULSE 87; RESP 20; O2SAT 98
== END 2022-12-28 00:04 | disposition home or self-care (01) ==
PROVIDERS: Emergency Provider Emergency Medicine; Visit Provider Emergency Medicine
DX: R11.15 Cyclical vomiting syndrome unrelated to migraine (principal); R10.84 Generalized abdominal pain; I10 Essential (primary) hypertension; I25.2 Old myocardial infarction; F17.290 Nicotine dependence, other tobacco product, uncomplicated; Z90.49 Acquired absence of other specified parts of digestive tract; Z79.82 Long term (current) use of aspirin; Z79.899 Other long term (current) drug therapy
CPT/HCPCS: 80048; 80076; 83690; 85025; 93005; 96361; 96374; 96375; 99284; J7030; A4216; J2405; J3490

== ENCOUNTER 2023-01-01 13:14 | Emergency (ER) | payer MEDICARE, SELFPAY ==
[2023-01-01 13:15] VITALS: PULSE 89; RESP 18; TEMP 36.1; O2SAT 97; BMI 30.1
[2023-01-01 13:26] VITALS: BP 176/110
[2023-01-01] MEDS: 0.9% Normal Saline 1,000 ML 1000 ML IV (15:09)
[2023-01-01] MEDS: LORazepam 2 MG/ML Syringe 0.5 MG IV (15:09)
[2023-01-01] MEDS: Ondansetron 4 MG/2 ML Vial IV (15:10)
[2023-01-01] MEDS: Famotidine 200 MG/20 ML MDV 20 MG in 0.9% Normal Saline (Pres. free 8 ML 300 MG IV (15:10)
[2023-01-01 15:14] VITALS: BP 157/99; PULSE 81; RESP 12; O2SAT 97
[2023-01-01 15:26] LABS: Absolute Lymphocyte Count 0.85 X10^3/uL (0.83-4.51); Absolute Neutrophil Count 13.2 X10^3/uL (2.0-7.7); Basophil# 0.04 X10^3/uL; Basophil% 0.3 % (0-1); Hematocrit 39.2 % (40-54); Hemoglobin 12.9 g/dL (13.0-16.5); Lymphocyte # 0.85 X10^3/ul (0.83-4.51); Lymphocyte % 5.8 % (19-41); Mean Corp Hgb Conc 32.9 g/dL (32-36); Mean Corpuscular Hgb 27.4 pg (27.0-32.0); Mean Corpuscular Volume 83.2 fL (80-94); Monocyte# 0.45 X10^3/uL; Monocyte% 3.1 % (0-10); NRBC Flagged by Analyzer 0 % (0-5); Neutrophil # 13.18 X10^3/uL (2.7-7.7); Platelet Count 410 K/mm3 (150-450); RBC Distribution Width CV 17.2 % (11.6-14.6); RBC Distribution Width SD 52.2 fl (35.1-43.9); Red Blood Count 4.71 M/mm3 (4.6-6.2); White Blood Count 14.6 K/mm3 (4.4-11.0)
[2023-01-01 15:39] LABS: BUN 14 mg/dL (7-18); Creatinine, Serum 1.19 mg/dL (0.70-1.30); Estimated Creatinine Clearance 64.75 ml/min; Glucose 126 mg/dL (74-106)
[2023-01-01 15:40] LABS: AST(SGOT) 15 U/L (15-37); Alanine Aminotransfer ALT/SGPT 17 U/L (16-61); Albumin, Serum 3.7 g/dL (3.2-5.0); Alkaline Phosphatase 62 U/L (45-117); Anion Gap 8 (5-15); BUN/Creat Ratio 11.8 RATIO (10-20); Calcium,Total 9.5 mg/dL (8.5-10.1); Chloride 111 mmol/L (98-107); EST Glomerular Filtration Rate 65 mL/min (>60); Est Glom Filt Rate - Afr Amer 79 mL/min (>60); Globulin 3.7 g/dL (2.2-4.2); Lipase 166 U/L (73-393); Potassium 3.8 mmol/L (3.5-5.1); Protein, Total 7.4 g/dL (6.4-8.2); Sodium Level 140 mmol/L (136-145)
--- NOTE | 2023-01-01 18:06 | ED.VIS.GI ---
HPI HPI - GI History of Present Illness Chief Complaint: Nausea/Vomiting Narrative Narrative: 62-year-old male presenting with nausea/vomiting/abdominal pain. Patient has a history of cyclic vomiting. He states most very similar. He has not had a fever. He states he ate too much last night he believes and asked why he feels this way today. It started this morning. Patient states he ate waffles into oranges last night. He states this would not normally cause any problems. Patient denies constipation or diarrhea. He is passing gas. Patient denies marijuana use. Patient previously seen several times in the ER for similar complaints as he is a new transplant of blister. He does not see his old physicians in [place]. He has not set up any kind of follow-up here in [place] because he states I been busy with [facility]. [facility] Medical History Heart attack Hiatal hernia Home Medications amlodipine 10 mg tablet 10 mg PO DAILY 11/11/22 [History Last Taken Unknown] aspirin 81 mg chewable tablet 81 mg PO DAILY 11/11/22 [History Last Taken Unknown] atorvastatin 40 mg tablet 40 mg PO DAILY 11/11/22 [History Last Taken Unknown] citalopram 40 mg tablet 40 mg PO DAILY 11/11/22 [History Last Taken Unknown] dicyclomine 20 mg tablet 20 mg PO TID PRN abdominal discomfort #20 tabs 11/11/22 [Rx Last Taken Unknown] fenofibrate 120 mg tablet 145 mg PO DAILY 11/11/22 [History Last Taken Unknown] lisinopril 20 mg tablet 20 mg PO DAILY 11/11/22 [History Last Taken Unknown] meloxicam 15 mg tablet 15 mg PO DAILY PRN UNKNOWN 11/11/22 [History Last Taken Unknown] sucralfate 1 gram tablet 1 g PO 4X/DAY 11/11/22 [History Last Taken Unknown] trazodone 50 mg tablet 75 mg PO DAILY 11/11/22 [History Last Taken Unknown] dicyclomine 20 mg tablet 20 mg PO TID PRN abdominal cramping #14 tabs 12/06/22 [Rx Last Taken Unknown] ondansetron 4 mg disintegrating tablet 4 mg PO Q8H PRN PRN Nausea #10 tabs 12/06/22 [Rx Last Taken Unknown] dicyclomine 20 mg tablet 20 mg PO TID #20 tabs 01/01/23 [Rx Last Taken Unknown] promethazine 12.5 mg tablet 12.5 mg PO TID PRN nausea and vomiting #20 tabs 01/01/23 [Rx Last Taken Unknown] Allergy/AdvReac Type Severity Reaction Status Date / Time nitrofurantoin Allergy Rash Verified 12/27/22 15:32 [From Macrobid] Penicillins [PCN] Allergy Rash Verified 12/27/22 15:32 Surgical History History of cholecystectomy Social History Smoking Status: Current every day smoker tobacco type: cigars ROS ROS ED Constitutional Constitutional ED: Denies chills or fever(s) ENT ENT ED: Denies rhinorrhea or sore throat Cardiovascular Cardiovascular: Denies chest pain or palpitations Respiratory/Chest Respiratory/Chest: Denies cough or dyspnea Gastrointestinal Gastrointestinal: Reports abdominal pain, nausea and vomiting; Denies constipation or diarrhea Genitourinary Genitourinary ED: Denies dysuria or hematuria Musculoskeletal Musculoskeletal: Denies arthralgias or back pain Integumentary Denies abscess Neurologic Neurologic: Denies headache(s) or paresthesias Psychiatric Psychiatric: Denies anxiety or suicidal thoughts Endocrine Endocrinology: Denies polydipsia EXAM Physical Exam Const Vital Signs: 01/01/23 13:15 01/01/23 13:26 01/01/23 15:14 Temperature 96.9 F L Temperature Source Temporal Pulse Rate 89 81 Respiratory Rate 18 12 Blood Pressure 176/110 H 157/99 H Blood Pressure Mean 132 118 Pulse Ox 97 97 Oxygen Delivery Method Room Air Room Air Positive well nourished General Appearance ED: Negative for pallor HEENT Reports moist mucous membranes normocephalic and atraumatic Eyes PERRL Resp normal respiratory effort Cardio regular rate and regular rhythm GI GI Narrative: Benign abdomen. Palpation: Negative for guarding or rigid Back/Spine no CVA tenderness Neuro CN's II-XII intact bilaterally, moves all extremities, no sensory deficits noted and gait normal Sensorium / Orientation: alert Psych mental status grossly normal Skin General Skin Exam: Negative for jaundice or pallor MDM MDM MDM Narrative Medical decision making narrative: Patient presenting with abdominal pain. He feels this is consistent with his previous cyclic vomiting. He states he set himself off with waffles and oranges. Abdominal exam is benign. Differential includes but is not limited to GERD, gastritis, peptic ulcer disease, diverticulitis, pancreatitis, viral etiology, food poisoning. CBC to assess white blood cell count, hemoglobin, platelets, differential. CMP to assess liver function, renal function, glucose, anion gap. Lipase to assess for pancreatitis. Patient given IV fluids and cyclic vomiting cocktail. On reevaluation he is doing better. CBC shows his leukocytosis is actually improved. Renal function electrolytes unremarkable. Liver function testing is normal as well. Lipase is normal. He does state that his stomach still occasional flip-flops. Did recommend to him that he make follow-up appointments. His significant other recommended Reglan for home because that helps him the most. I will also give him some Bentyl. Return precautions were discussed. Impression: 1. Cyclic vomiting syndrome Lab Data Attestation: I reviewed the patient's lab results. Labs: Laboratory Results - last 24 hr 01/01/23 01/01/23 15:02 15:02 WBC 14.6 H RBC 4.71 Hgb 12.9 L Hct 39.2 L MCV 83.2 D MCH 27.4 MCHC 32.9 D RDW Std Deviation 52.2 H RDW Coeff of [place] 17.2 H Plt Count 410 MPV 10.0 Immature Gran % (Auto) 0.800 Neut % (Auto) 90.0 H Lymph % (Auto) 5.8 L [place] % (Auto) 3.1 Eos % (Auto) 0.0 Baso % (Auto) 0.3 Absolute Neuts (auto) 13.2 H Absolute Lymphs (auto) 0.85 Nucleated RBC % 0 Sodium 140 Potassium 3.8 Chloride 111 H Carbon Dioxide 21.0 Anion Gap 8 BUN 14 Creatinine 1.19 Estim Creat Clear Calc 64.75 Est GFR (MDRD) Af Amer 79 Est GFR (MDRD) Non-Af 65 BUN/Creatinine Ratio 11.8 Glucose 126 H Calcium 9.5 Total Bilirubin 0.30 AST 15 ALT 17 Alkaline Phosphatase 62 Total Protein 7.4 Albumin 3.7 Globulin 3.7 Albumin/Globulin Ratio 1.0 Lipase 166 Discharge Plan Triage Chief Complaint: Nausea/Vomiting ED Provider: Viet Ramos Dx/Rx/DC Orders Instructions: ED Cyclic Vomiting Syndrome Prescriptions: New promethazine 12.5 mg tablet 12.5 mg PO TID PRN (Reason: nausea and vomiting) Qty: 20 0RF Rx Instructions: 3 doses during day; last dose no later than 4 hr before bedtime dicyclomine 20 mg tablet 20 mg PO TID Qty: 20 0RF No Action atorvastatin 40 mg Tablet 40 mg PO DAILY citalopram 40 mg Tablet 40 mg PO DAILY trazodone 50 mg Tablet 75 mg PO DAILY meloxicam 15 mg Tablet 15 mg PO DAILY PRN (Reason: UNKNOWN) sucralfate 1 gram Tablet 1 g PO 4X/DAY lisinopril 20 mg Tablet 20 mg PO DAILY amlodipine 10 mg Tablet 10 mg PO DAILY aspirin 81 mg Tablet,Chewable 81 mg PO DAILY fenofibrate 120 mg Tablet 145 mg PO DAILY dicyclomine 20 mg tablet 20 mg PO TID PRN (Reason: abdominal discomfort) Qty: 20 0RF dicyclomine 20 mg tablet 20 mg PO TID PRN (Reason: abdominal cramping) Qty: 14 0RF ondansetron 4 mg tablet,disintegrating 4 mg PO Q8H PRN PRN (Reason: Nausea) Qty: 10 0RF Primary Care Provider: KARSON GRAFF Referrals: KARSON GRAFF [Other] Disposition Disposition: Home, Self Care
[2023-01-01 18:21] VITALS: BP 170/103
== END 2023-01-01 18:23 | disposition home or self-care (01) ==
PROVIDERS: Emergency Provider Student in an Organized Health Care Education/Training Program; Visit Provider Student in an Organized Health Care Education/Training Program
DX: R11.15 Cyclical vomiting syndrome unrelated to migraine (principal); F17.290 Nicotine dependence, other tobacco product, uncomplicated; I25.2 Old myocardial infarction; Z79.82 Long term (current) use of aspirin
CPT/HCPCS: 80053; 83690; 85025; 96365; 96375; 99282; A4216; J2405; J3490

== ENCOUNTER 2023-03-08 12:13 | Emergency (ER) | payer MEDICARE, SELFPAY ==
[2023-03-08 12:14] VITALS: BP 155/124; PULSE 120; RESP 18; TEMP 36.3; O2SAT 98
[2023-03-08] MEDS: LORazepam 2 MG/ML Syringe 0.5 MG IV (12:44)
[2023-03-08] MEDS: Ondansetron 4 MG/2 ML Vial IV (12:44)
[2023-03-08] MEDS: 0.9% Normal Saline 1,000 ML 1000 ML IV (12:44)
--- NOTE | 2023-03-08 12:52 | EX.ED.DYSGE1 ---
HPI History of Present Illness Chief Complaint: Nausea/Vomiting Detail of Chief Complaint: I have cyclic vomiting Informant: patient Onset/Context/Timing Onset: Today (0900) Context: Sudden Onset Timing: Continuous Quality: Bilious emesis, numerous Location: GI Current Severity: Severe Maximum Severity: Severe Worsened by: Pain is worse with vomiting Relieved by: Nothing Associated Symptoms Associated Symptoms: Diaphoresis Narrative Narrative: Patient is 62-year-old male with history of cyclic vomiting, hypertension, depression and GERD who presents with vomiting numerous times since 9 AM. Emesis is bilious in color. There is no complaint of diarrhea or constipation. He denies fever, chills night sweats. He denies headache, visual, ocular auditory symptoms. He denies chest discomfort. He denies shortness of breath. His abdominal pain is midline. The pain does not radiate. The pain has been constant since onset. Prior similar symptoms: Yes Recent Illness/Hospitalization: No PFSH PFSH Medical History Heart attack Hiatal hernia Home Medications amlodipine 10 mg tablet 10 mg PO DAILY 11/11/22 [History Last Taken Unknown] aspirin 81 mg chewable tablet 81 mg PO DAILY 11/11/22 [History Last Taken Unknown] atorvastatin 40 mg tablet 40 mg PO DAILY 11/11/22 [History Last Taken Unknown] citalopram 40 mg tablet 40 mg PO DAILY 11/11/22 [History Last Taken Unknown] dicyclomine 20 mg tablet 20 mg PO TID PRN abdominal discomfort #20 tabs 11/11/22 [Rx Last Taken Unknown] fenofibrate 120 mg tablet 145 mg PO DAILY 11/11/22 [History Last Taken Unknown] lisinopril 20 mg tablet 20 mg PO DAILY 11/11/22 [History Last Taken Unknown] meloxicam 15 mg tablet 15 mg PO DAILY PRN UNKNOWN 11/11/22 [History Last Taken Unknown] sucralfate 1 gram tablet 1 g PO 4X/DAY 11/11/22 [History Last Taken Unknown] trazodone 50 mg tablet 75 mg PO DAILY 11/11/22 [History Last Taken Unknown] dicyclomine 20 mg tablet 20 mg PO TID PRN abdominal cramping #14 tabs 12/06/22 [Rx Last Taken Unknown] ondansetron 4 mg disintegrating tablet 4 mg PO Q8H PRN PRN Nausea #10 tabs 12/06/22 [Rx Last Taken Unknown] dicyclomine 20 mg tablet 20 mg PO TID #20 tabs 01/01/23 [Rx Last Taken Unknown] promethazine 12.5 mg tablet 12.5 mg PO TID PRN nausea and vomiting #20 tabs 01/01/23 [Rx Last Taken Unknown] Allergy/AdvReac Type Severity Reaction Status Date / Time nitrofurantoin Allergy Rash Verified 12/27/22 15:32 [From Macrobid] Penicillins [PCN] Allergy Rash Verified 12/27/22 15:32 Surgical History History of cholecystectomy Social History (Updated 03/08/23 @ 12:[address] Dewey Kam MD) Smoking Status: Current every day smoker tobacco type: cigars details: Denies alcohol use and history of pancreatitis substance use type: does not use ROS ROS ED Constitutional Constitutional ED: Reports sweats; Denies chills, fever(s), subjective or weight loss Eyes Eyes: Denies blurry vision, change in vision or diplopia ENT ENT ED: Reports other Details: Dry mouth and thirst ; Denies ear pain, rhinorrhea or sore throat Cardiovascular Cardiovascular: Denies chest pain, palpitations or racing heartbeat Respiratory/Chest Respiratory/Chest: Denies cough, dyspnea or dyspnea on exertion Gastrointestinal Gastrointestinal: Reports abdominal pain, nausea and vomiting; Denies constipation, diarrhea or melena Genitourinary Genitourinary ED: Denies dysuria, hematuria or urinary frequency Musculoskeletal Musculoskeletal: Denies arthralgias, myalgias or neck pain Neurologic Neurologic: Denies headache(s), paresthesias or weakness Psychiatric Psychiatric: Reports anxiety Endocrine Endocrinology: Denies cold intolerance or heat intolerance Hematologic/Lymphatic Hematologic/Lymphatic: Reports systems reviewed and no addt'l complaints, except as documented EXAM Physical Exam Const Vital Signs: 03/08/23 12:14 Temperature 97.4 F L Temperature Source Temporal Pulse Rate 120 H Respiratory Rate 18 Blood Pressure 155/124 H Blood Pressure Mean 134 Pulse Ox 98 Oxygen Delivery Method Room Air Positive well nourished and well developed Constitutional Narrative: Patient appears uncomfortable. He is holding his stomach. General Appearance ED: well developed and diaphoretic; Negative for cyanotic, NAD or pallor HEENT Reports dry mucous membranes HEENT Narrative: Head is atraumatic and normocephalic. Ears are normal. TMs are normal. Posterior pharynx is normal. Mouth ED: Yes dry mucous membranes Mouth: dry mucous membranes Eyes PERRL and EOMs intact bilaterally General Eye ED: Negative for pale conjunctiva or scleral icterus Neck no lymphadenopathy, supple and no JVD Chest Wall inspection of chest normal and palpation of chest normal Resp normal respiratory effort and clear to auscultation bilaterally Cardio regular rhythm, S1 normal heart sound, S2 normal heart sound and no murmurs Rate: tachycardic GI non-distended and no masses; Negative for hepatosplenomegaly Auscultation: hypoactive bowel sounds Palpation: soft and tender other (Diffuse); Negative for guarding, mass or rebound tenderness present Back/Spine no CVA tenderness Extremity normal to inspection General Extremety ED: Negative for edema or tenderness General Extremity: Negative for edema Neuro oriented x3, CN's II-XII intact bilaterally and no sensory deficits noted Sensorium / Orientation: alert Psych Mood & Affect: depressed Skin no rashes or lesions noted, no wounds and skin turgor normal Skin Narrative: Patient is diaphoretic. General Skin Exam: Negative for jaundice or pallor MDM MDM MDM Narrative Medical decision making narrative: Since patient is elderly with his hypertension and vomiting profusely will obtain BMP to assess electrolytes and more importantly renal function. ED cyclic vomiting order set was initiated. He also received 1 L of normal saline wide open. History & Record Review Additional record(s) reviewed:: Prior ED visit, Prior labs and Other (There are no inpatient records at [facility] Lab Data Attestation: I reviewed the patient's lab results. Lab results narrative: Basic metabolic panel reveals a 9 anion gap acidosis. Glucose is 146. Electrolytes and renal function are unremarkable. Labs: Laboratory Results - last 24 hr 03/08/23 12:40 Sodium 135 L Potassium 3.9 Chloride 106 Carbon Dioxide 19.0 L Anion Gap 10 BUN 15 Creatinine 1.20 Est GFR (MDRD) Af Amer 78 Est GFR (MDRD) Non-Af 65 BUN/Creatinine Ratio 12.5 Glucose 146 H Calcium 9.7 Treatment and Re-Evaluation :: Patient was reassessed at 1455. Patient is no longer flushed, diaphoretic or moaning in pain. He has not vomited in the last 45 minutes. At 1506 nurse informed me that patient feels much better. Plan is to discharge to home Discharge Plan Triage Chief Complaint: Nausea/Vomiting ED Provider: Dewey Kam Dx/Rx/DC Orders Clinical Impression: Cyclic vomiting syndrome, Sinus tachycardia, Acute dehydration, Acute hyperglycemia Instructions: ED Cyclic Vomiting Syndrome Prescriptions: No Action atorvastatin 40 mg Tablet 40 mg PO DAILY citalopram 40 mg Tablet 40 mg PO DAILY trazodone 50 mg Tablet 75 mg PO DAILY meloxicam 15 mg Tablet 15 mg PO DAILY PRN (Reason: UNKNOWN) sucralfate 1 gram Tablet 1 g PO 4X/DAY lisinopril 20 mg Tablet 20 mg PO DAILY amlodipine 10 mg Tablet 10 mg PO DAILY aspirin 81 mg Tablet,Chewable 81 mg PO DAILY fenofibrate 120 mg Tablet 145 mg PO DAILY dicyclomine 20 mg tablet 20 mg PO TID PRN (Reason: abdominal discomfort) Qty: 20 0RF dicyclomine 20 mg tablet 20 mg PO TID PRN (Reason: abdominal cramping) Qty: 14 0RF ondansetron 4 mg tablet,disintegrating 4 mg PO Q8H PRN PRN (Reason: Nausea) Qty: 10 0RF promethazine 12.5 mg tablet 12.5 mg PO TID PRN (Reason: nausea and vomiting) Qty: 20 0RF Rx Instructions: 3 doses during day; last dose no later than 4 hr before bedtime dicyclomine 20 mg tablet 20 mg PO TID Qty: 20 0RF Primary Care Provider: KARSON GRAFF Referrals: KARSON GRAFF [Other] - As Needed Disposition Disposition: Home, Self Care
[2023-03-08 13:06] LABS: Anion Gap 10 (5-15); BUN 15 mg/dL (7-18); BUN/Creat Ratio 12.5 RATIO (10-20); Calcium,Total 9.7 mg/dL (8.5-10.1); Chloride 106 mmol/L (98-107); EST Glomerular Filtration Rate 65 mL/min (>60); Est Glom Filt Rate - Afr Amer 78 mL/min (>60); Glucose 146 mg/dL (74-106); Potassium 3.9 mmol/L (3.5-5.1); Sodium Level 135 mmol/L (136-145)
[2023-03-08] MEDS: Famotidine 200 MG/20 ML MDV 20 MG in 0.9% Normal Saline (Pres. free 8 ML 300 MG IV (14:14)
== END 2023-03-08 15:15 | disposition home or self-care (01) ==
PROVIDERS: Emergency Provider Emergency Medicine; Visit Provider Emergency Medicine
DX: R11.15 Cyclical vomiting syndrome unrelated to migraine (principal); R00.0 Tachycardia, unspecified; E86.0 Dehydration; R73.9 Hyperglycemia, unspecified; I25.2 Old myocardial infarction; F17.290 Nicotine dependence, other tobacco product, uncomplicated
CPT/HCPCS: 80048; 96361; 96365; 96375; 99282; A4216; J2405; J3490

== ENCOUNTER 2023-04-17 14:22 | Emergency (ER) | payer MEDICARE, SELFPAY ==
[2023-04-17 14:24] VITALS: BP 151/113; PULSE 133; RESP 20; TEMP 36.6; O2SAT 98; BMI 25.1
--- NOTE | 2023-04-17 14:48 | ED.VIS.GI ---
HPI HPI - GI History of Present Illness Chief Complaint: Nausea/Vomiting Informant: patient Abdominal Pain/Flank Pain Onset: Yesterday Timing: Continuous Quality: Aching and Cramping Location: - (periumbilical) Current Severity: Severe Maximum Severity: Severe Worsened by: Nothing Relieved by: - (Sometimes partially after bowel movement) Nausea/Vomiting/Emesis GI Symptom: Positive for Nausea and Vomiting Diarrhea/Melena/Hematochezia GI Symptom: Positive for Diarrhea (Chronic, grossly unchanged except occasionally black no blood) Associated Symptoms Associated Symptoms: Negative for Dysuria, Frequency, Hematuria or Urgency Narrative Narrative: Patient very poor historian, grunting and abdominal pain, he answers all questions with one-word answers but eventually he admits that he has had this before, was admitted to for 3 days recently after the had this with hematemesis and they were concerned about an esophageal rupture, he did not end up needing any surgery, and he states he has been diagnosed with cyclic vomiting syndrome. He states the pain and vomiting are the same. He has chronic diarrhea because of having had a cholecystectomy and states that the consistency is not really any different. Denies any fevers or chills. No travel out of the area recently. [facility] Medical History (Updated 04/17/23 @ 17:[address] eHnry Ortiz MD) Cyclic vomiting syndrome Heart attack Hiatal hernia Home Medications amlodipine 10 mg tablet 10 mg PO DAILY 11/11/22 [History Last Taken Unknown] aspirin 81 mg chewable tablet 81 mg PO DAILY 11/11/22 [History Last Taken Unknown] atorvastatin 40 mg tablet 40 mg PO DAILY 11/11/22 [History Last Taken Unknown] citalopram 40 mg tablet 40 mg PO DAILY 11/11/22 [History Last Taken Unknown] dicyclomine 20 mg tablet 20 mg PO TID PRN abdominal discomfort #20 tabs 11/11/22 [Rx Last Taken Unknown] fenofibrate 120 mg tablet 145 mg PO DAILY 11/11/22 [History Last Taken Unknown] lisinopril 20 mg tablet 20 mg PO DAILY 11/11/22 [History Last Taken Unknown] meloxicam 15 mg tablet 15 mg PO DAILY PRN UNKNOWN 11/11/22 [History Last Taken Unknown] sucralfate 1 gram tablet 1 g PO 4X/DAY 11/11/22 [History Last Taken Unknown] trazodone 50 mg tablet 75 mg PO DAILY 11/11/22 [History Last Taken Unknown] dicyclomine 20 mg tablet 20 mg PO TID PRN abdominal cramping #14 tabs 12/06/22 [Rx Last Taken Unknown] ondansetron 4 mg disintegrating tablet 4 mg PO Q8H PRN PRN Nausea #10 tabs 12/06/22 [Rx Last Taken Unknown] dicyclomine 20 mg tablet 20 mg PO TID #20 tabs 01/01/23 [Rx Last Taken Unknown] promethazine 12.5 mg tablet 12.5 mg PO TID PRN nausea and vomiting #20 tabs 01/01/23 [Rx Last Taken Unknown] promethazine 25 mg tablet 25 mg PO Q6H PRN PRN Nausea #16 TABLETS 04/17/23 [Rx Last Taken Unknown] Allergy/AdvReac Type Severity Reaction Status Date / Time sertraline [From Zoloft] Allergy Mild Other Verified 04/17/23 15:18 nitrofurantoin Allergy Rash Verified 04/17/23 14:23 [From Macrobid] Penicillins [PCN] Allergy Rash Verified 04/17/23 14:23 Surgical History History of cholecystectomy History of repair of hiatal hernia Social History Smoking Status: Current every day smoker tobacco type: cigars details: Denies alcohol use and history of pancreatitis substance use type: does not use ROS ROS ED Constitutional Constitutional ED: Denies chills or fever(s) Eyes Eyes: Denies change in vision or diplopia ENT ENT ED: Denies rhinorrhea or sore throat Cardiovascular Cardiovascular: Denies chest pain or palpitations Respiratory/Chest Respiratory/Chest: Denies cough or dyspnea Gastrointestinal Gastrointestinal: Reports abdominal pain, diarrhea, nausea and vomiting Genitourinary Genitourinary ED: Denies dysuria or hematuria Musculoskeletal Musculoskeletal: Denies back pain or neck pain Integumentary Denies abscess or rash Neurologic Neurologic: Denies headache(s), paresthesias or weakness Psychiatric Psychiatric: Denies depression or suicidal thoughts EXAM Physical Exam Const Vital Signs: 04/17/23 14:24 Temperature 98 F Temperature Source Temporal Pulse Rate 133 H Respiratory Rate 20 H Blood Pressure 151/113 H Blood Pressure Mean 125 Pulse Ox 98 Oxygen Delivery Method Room Air Positive well nourished and well developed General Appearance ED: well developed and NAD HEENT Reports moist mucous membranes normocephalic and atraumatic Eyes PERRL and EOMs intact bilaterally Neck full ROM and supple Resp normal respiratory effort and clear to auscultation bilaterally Cardio regular rate, regular rhythm and no murmurs Rate: tachycardic GI non-distended GI Narrative: Diffusely tender no guarding or rebound. No [place] sign. No Segal Hunt sign. Auscultation: normoactive bowel sounds Palpation: soft Back/Spine no CVA tenderness General Back: other FROM Extremity normal to inspection General Extremety ED: Negative for edema, pulses abnormal or tenderness General Extremity: Negative for edema or pulses abnormal Neuro oriented x3, CN's II-XII intact bilaterally and no sensory deficits noted Sensorium / Orientation: awake and alert Motor Exam: strength 5/5 throughout Psych Mood & Affect: anxious Skin no rashes or lesions noted and no wounds MDM MDM MDM Narrative Medical decision making narrative: Obtained labs, patient has a significant leukocytosis of 25.7. Given this and his exam, the fact the patient is very uncomfortable I performed a IV contrasted CT of the abdomen/pelvis. I reviewed the images and the report, which I agree with. Basically nothing acute, all chronic and stable findings. I reviewed the report. After giving the patient IV fluids, Reglan, morphine, he is doing much better. He is tolerating oral fluids, he said he had some reflux so he was given some Mylanta and is doing much better and appears much better so will be discharged with a prescription for promethazine to use as needed. Lab Data Attestation: I reviewed the patient's lab results. Labs: Laboratory Results - last 24 hr 04/17/23 04/17/23 14:54 16:06 WBC 25.7 H RBC 5.00 Hgb 13.7 Hct 41.6 MCV 83.2 MCH 27.4 MCHC 32.9 RDW Std Deviation 52.8 H RDW Coeff of Florencio 17.4 H Plt Count 489 H MPV 10.2 Immature Gran % (Auto) 0.700 Neut % (Auto) 93.4 H Lymph % (Auto) 2.4 L Gonzales % (Auto) 3.3 Eos % (Auto) 0.0 Baso % (Auto) 0.2 Absolute Neuts (auto) 24.0 H Absolute Lymphs (auto) 0.62 L Nucleated RBC % 0 Differential Comment SCANNED Sodium 142 Potassium 3.5 Chloride 107 Carbon Dioxide 23.0 Anion Gap 12 BUN 15 Creatinine 1.69 H Estim Creat Clear Calc 45.00 Est GFR (MDRD) Af Amer 53 L Est GFR (MDRD) Non-Af 44 L BUN/Creatinine Ratio 8.9 L Glucose 166 H Calcium 10.0 Total Bilirubin 0.40 AST 22 ALT 20 Alkaline Phosphatase 67 Total Protein 8.1 Albumin 4.2 Globulin 3.9 Albumin/Globulin Ratio 1.1 Lipase 22 Urine Color Yellow Urine Clarity Sl. Cloudy Urine pH 7.0 Ur Specific [place] 1.010 Urine Protein 100 H Urine Glucose (UA) Normal Urine Ketones 5 H Urine Occult Blood 50 H Urine Nitrite Negative Urine Bilirubin Negative Urine Urobilinogen 1 H Ur Leukocyte Esterase 25 H Urine RBC 0-5 SEEN Urine WBC 0-5 SEEN Ur Squamous Epith Cells 0 SEEN Urine Bacteria RARE Urine Mucus 0 SEEN Radiography Diagnostic Testing: Clinical Impression(s) from Imaging Studies Abdomen/Pelvis CT 04/17/23 15:16 IMPRESSION: No definite change or acute abnormality. Stable hiatal hernia. In general the evaluation of GI tract is limited by the absence of oral contrast. Stable enlarged adrenal glands for which a total of one year follow-up recommended. Dilated common bile duct for which evaluation with liver function tests recommended. Stable complex low density mass of the upper pole of the right kidney most likely a complex appearing cyst but please see recommendations as on the prior exam including follow-up. Electronically Signed: Alan Weeks MD at 16:15 EDT , Discharge Plan Triage Chief Complaint: Nausea/Vomiting ED Provider: Henry Ortiz Dx/Rx/DC Orders Clinical Impression: Diffuse abdominal pain, Cyclic vomiting syndrome, Vomiting Instructions: ED Cyclic Vomiting Syndrome, ED Vomiting (Adult) Prescriptions: New promethazine [promethazine] 25 mg tablet 25 mg PO Q6H PRN PRN (Reason: Nausea) Qty: 16 0RF No Action atorvastatin 40 mg Tablet 40 mg PO DAILY citalopram 40 mg Tablet 40 mg PO DAILY trazodone 50 mg Tablet 75 mg PO DAILY meloxicam 15 mg Tablet 15 mg PO DAILY PRN (Reason: UNKNOWN) sucralfate 1 gram Tablet 1 g PO 4X/DAY lisinopril 20 mg Tablet 20 mg PO DAILY amlodipine 10 mg Tablet 10 mg PO DAILY aspirin 81 mg Tablet,Chewable 81 mg PO DAILY fenofibrate 120 mg Tablet 145 mg PO DAILY dicyclomine 20 mg tablet 20 mg PO TID PRN (Reason: abdominal discomfort) Qty: 20 0RF dicyclomine 20 mg tablet 20 mg PO TID PRN (Reason: abdominal cramping) Qty: 14 0RF ondansetron 4 mg tablet,disintegrating 4 mg PO Q8H PRN PRN (Reason: Nausea) Qty: 10 0RF promethazine 12.5 mg tablet 12.5 mg PO TID PRN (Reason: nausea and vomiting) Qty: 20 0RF Rx Instructions: 3 doses during day; last dose no later than 4 hr before bedtime dicyclomine 20 mg tablet 20 mg PO TID Qty: 20 0RF Primary Care Provider: Care Physician,No Primary Referrals: Care Physician,No Primary [Primary Care Provider] - Doctor,Your [Non-Staff] - 3-5 Days if not improving Disposition Disposition: Home, Self Care
[2023-04-17] MEDS: Morphine 4 MG/ML Syringe IV ×2 (14:59→16:02)
[2023-04-17] MEDS: 0.9% Normal Saline 1,000 ML 1000 ML IV (14:59)
[2023-04-17] MEDS: Metoclopramide 10 MG/2 ML Vial 5 MG IV (14:59)
[2023-04-17 15:06] LABS: Absolute Lymphocyte Count 0.62 X10^3/uL (0.83-4.51); Basophil# 0.04 X10^3/uL; Basophil% 0.2 % (0-1); Hematocrit 41.6 % (40-54); Hemoglobin 13.7 g/dL (13.0-16.5); Lymphocyte # 0.62 X10^3/ul (0.83-4.51); Lymphocyte % 2.4 % (19-41); Mean Corp Hgb Conc 32.9 g/dL (32-36); Mean Corpuscular Hgb 27.4 pg (27.0-32.0); Mean Corpuscular Volume 83.2 fL (80-94); Mean Platelet Vol. 10.2 fl (6.2-12.0); Monocyte# 0.85 X10^3/uL; Monocyte% 3.3 % (0-10); NRBC Flagged by Analyzer 0 % (0-5); Neutrophil # 23.98 X10^3/uL (2.7-7.7); Neutrophil % 93.4 % (47-70); POSITIVE DIFFERENTIAL YES; Platelet Count 489 K/mm3 (150-450); RBC Distribution Width CV 17.4 % (11.6-14.6); RBC Distribution Width SD 52.8 fl (35.1-43.9); White Blood Count 25.7 K/mm3 (4.4-11.0)
[2023-04-17 15:07] LABS: Differential Indicated SCAN CRITERIA MET
--- NOTE | 2023-04-17 15:16 | CT_ITS ---
STUDY: CT ABDOMEN AND PELVIS WITH CONTRAST REASON FOR EXAM: Male, 63 years old. diffuse pain, vomiting RADIATION DOSAGE (If Supplied By Facility): CTDIvol = ( 12.56 ) mGy, DLP = ( 814.13 ) mGycm TECHNIQUE: Transaxial images were obtained from the dome of the diaphragm to the symphysis pubis without oral contrast. IV 100mL Isovue-370 was administered. Sagittal and coronal images were reconstructed. Individualized dose optimization techniques were used for this CT. COMPARISON: None. FINDINGS: The visualized lung bases are unremarkable. The visualized portions of the heart are within normal limits. Normal liver. There are surgical clips in the gallbladder fossa consistent with a prior cholecystectomy. Stable distention of the common bile duct measuring 1.2 cm across. Correlate with liver function tests. Stable probable duodenal diverticulum near the ampulla. Normal spleen. Normal pancreas. Stable bilateral symmetrically enlarged generally low density adrenal glands for which follow-up in a total of one year recommended. No acute abnormalities or changes of the kidneys. No stones or hydronephrosis. Stable numerous renal cysts most of which appear simple, but again seen is a complex 2.6 cm mass of the upper pole of the right kidney most likely a complex cyst, but follow-up in 6-12 months recommended. Evaluation of the GI tract is limited by absence of oral contrast. Moderate hiatal hernia Cannot exclude stomach wall thickening. No dilated loops of bowel or evidence for obstruction. Cannot exclude segmental thickening of the perkins of the small or large bowel. Cannot exclude enteritis or colitis. Appendix within normal limits. There is diffuse atherosclerotic calcification of the abdominal aorta, without a demonstrated aneurysm. Normal inferior vena cava. Normal retroperitoneum. Nondistended urinary bladder. Normal abdominal wall. There are diffuse degenerative changes of the visualized lumbar spine. CT/Abdomen/Pelvis W IV Cont ONLY IMPRESSION: No definite change or acute abnormality. Stable hiatal hernia. In general the evaluation of GI tract is limited by the absence of oral contrast. Stable enlarged adrenal glands for which a total of one year follow-up recommended. Dilated common bile duct for which evaluation with liver function tests recommended. Stable complex low density mass of the upper pole of the right kidney most likely a complex appearing cyst but please see recommendations as on the prior exam including follow-up. Electronically Signed: Alan Weeks MD at 16:15 EDT ,
[2023-04-17 15:24] LABS: ALB/GLOB Ratio 1.1 RATIO (0.9-2.4); AST(SGOT) 22 U/L (15-37); Alanine Aminotransfer ALT/SGPT 20 U/L (16-61); Albumin, Serum 4.2 g/dL (3.2-5.0); Alkaline Phosphatase 67 U/L (45-117); Anion Gap 12 (5-15); BUN 15 mg/dL (7-18); BUN/Creat Ratio 8.9 RATIO (10-20); Chloride 107 mmol/L (98-107); Creatinine, Serum 1.69 mg/dL (0.70-1.30); EST Glomerular Filtration Rate 44 mL/min (>60); Est Glom Filt Rate - Afr Amer 53 mL/min (>60); Globulin 3.9 g/dL (2.2-4.2); Glucose 166 mg/dL (74-106); Lipase 22 U/L (13-75); Potassium 3.5 mmol/L (3.5-5.1); Protein, Total 8.1 g/dL (6.4-8.2); Sodium Level 142 mmol/L (136-145)
[2023-04-17 15:31] LABS: Differential Comment SCANNED
[2023-04-17 16:22] LABS: Mucous, Urine 0 SEEN /hpf (<or=2+); Squamous Epithelial Cells - UA 0 SEEN /hpf (0-5)
[2023-04-17 16:29] LABS: Color, Urine Yellow (Yellow); Glucose, Dipstick Normal (Normal); Ketone-Dipstick 5 mg/dl (Negative); Leukocyte Esterase-Dipstick 25 /ul (Negative); Nitrite-Dipstick Negative (Negative); Occult Blood-Urine 50 /ul (Negative); Protein-Dipstick 100 mg/dl (Negative); Urine Bilirubin Dipstick Negative (Negative); Urine Clarity Sl. Cloudy (Clear); Urine Urobilinogen 1 mg/dl (Normal)
[2023-04-17 16:43] LABS: Red Blood Cells-Urine 0-5 SEEN /hpf (0-5); White Blood Cells 0-5 SEEN /hpf (0-5)
[2023-04-17 16:44] LABS: Bacteria RARE /hpf (None Seen)
[2023-04-17] MEDS: Mag Hydrox/Al Hydrox/Simeth 30 ML UDC PO (16:59)
[2023-04-17 17:22] VITALS: RESP 16
== END 2023-04-17 17:23 | disposition home or self-care (01) ==
PROVIDERS: Emergency Provider Emergency Medicine; Visit Provider Emergency Medicine
DX: R10.84 Generalized abdominal pain (principal); R11.15 Cyclical vomiting syndrome unrelated to migraine; F17.290 Nicotine dependence, other tobacco product, uncomplicated
CPT/HCPCS: 74177; 80053; 81001; 83690; 85025; 96361; 96374; 96375; 96376; 99284; Q9967; A4216

== ENCOUNTER 2023-06-18 14:31 | Emergency (ER) | payer MEDICARE, SELFPAY ==
[2023-06-18 14:33] VITALS: BP 185/122; PULSE 103; RESP 20; TEMP 36.4; O2SAT 97
[2023-06-18 15:00] LABS: Absolute Lymphocyte Count 1.36 X10^3/uL (0.83-4.51); Absolute Neutrophil Count 14.5 X10^3/uL (2.0-7.7); Basophil# 0.09 X10^3/uL; Basophil% 0.5 % (0-1); Eosinophil# 0.09 X10^3/uL; Eosinophils% 0.5 % (0-5); Hematocrit 39.4 % (40-54); Hemoglobin 12.7 g/dL (13.0-16.5); Lymphocyte # 1.36 X10^3/ul (0.83-4.51); Lymphocyte % 8.1 % (19-41); Mean Corp Hgb Conc 32.2 g/dL (32-36); Mean Corpuscular Volume 86.8 fL (80-94); Mean Platelet Vol. 9.5 fl (6.2-12.0); NRBC Flagged by Analyzer 0 % (0-5); Neutrophil # 14.45 X10^3/uL (2.7-7.7); Neutrophil % 86.1 % (47-70); Platelet Count 416 K/mm3 (150-450); RBC Distribution Width CV 16.8 % (11.6-14.6); RBC Distribution Width SD 53.5 fl (35.1-43.9); Red Blood Count 4.54 M/mm3 (4.6-6.2); White Blood Count 16.8 K/mm3 (4.4-11.0)
--- NOTE | 2023-06-18 15:10 | EX.ED.GENINJ ---
HPI History of Present Illness Chief Complaint: Nausea/Vomiting [facility] Medical History (Updated 04/25/23 @ 00:00 by Michael Thompson) Cyclic vomiting syndrome Heart attack Hiatal hernia Home Medications amlodipine 10 mg tablet 10 mg PO DAILY 11/11/22 [History Last Taken Unknown] aspirin 81 mg chewable tablet 81 mg PO DAILY 11/11/22 [History Last Taken Unknown] atorvastatin 40 mg tablet 40 mg PO DAILY 11/11/22 [History Last Taken Unknown] citalopram 40 mg tablet 40 mg PO DAILY 11/11/22 [History Last Taken Unknown] dicyclomine 20 mg tablet 20 mg PO TID PRN abdominal discomfort #20 tabs 11/11/22 [Rx Last Taken Unknown] fenofibrate 120 mg tablet 145 mg PO DAILY 11/11/22 [History Last Taken Unknown] lisinopril 20 mg tablet 20 mg PO DAILY 11/11/22 [History Last Taken Unknown] meloxicam 15 mg tablet 15 mg PO DAILY PRN UNKNOWN 11/11/22 [History Last Taken Unknown] sucralfate 1 gram tablet 1 g PO 4X/DAY 11/11/22 [History Last Taken Unknown] trazodone 50 mg tablet 75 mg PO DAILY 11/11/22 [History Last Taken Unknown] dicyclomine 20 mg tablet 20 mg PO TID PRN abdominal cramping #14 tabs 12/06/22 [Rx Last Taken Unknown] ondansetron 4 mg disintegrating tablet 4 mg PO Q8H PRN PRN Nausea #10 tabs 12/06/22 [Rx Last Taken Unknown] dicyclomine 20 mg tablet 20 mg PO TID #20 tabs 01/01/23 [Rx Last Taken Unknown] promethazine 12.5 mg tablet 12.5 mg PO TID PRN nausea and vomiting #20 tabs 01/01/23 [Rx Last Taken Unknown] promethazine 25 mg tablet 25 mg PO Q6H PRN PRN Nausea #16 TABLETS 04/17/23 [Rx Last Taken Unknown] promethazine 25 mg tablet 25 mg PO Q6H PRN nausea and vomiting 7 days #28 tabs 06/18/23 [Rx Last Taken Unknown] Allergy/AdvReac Type Severity Reaction Status Date / Time sertraline [From Zoloft] Allergy Mild Other Verified 06/18/23 14:33 nitrofurantoin Allergy Rash Verified 06/18/23 14:33 [From Macrobid] Penicillins [PCN] Allergy Rash Verified 06/18/23 14:33 Surgical History History of cholecystectomy History of repair of hiatal hernia Social History Smoking Status: Current every day smoker tobacco type: cigars details: Denies alcohol use and history of pancreatitis substance use type: does not use EXAM Physical Exam Const Vital Signs: 06/18/23 14:33 06/18/23 18:10 Temperature 97.6 F L Temperature Source Temporal Pulse Rate 103 H 82 Respiratory Rate 20 H 16 Blood Pressure 185/122 H 141/79 H Blood Pressure Mean 143 99 Pulse Ox 97 95 Oxygen Delivery Method Room Air [facility] MDM Narrative Medical decision making narrative: HISTORY OF PRESENT ILLNESS: 63-year-old male here with nausea and vomiting. He states he started having nausea and vomiting and severe abdominal pain that started approximately 7 hours prior to arrival. Symptoms have been constant, severe with no alleviating factors. States he felt similar to his March visit. Denies any new foods. Denies any marijuana use. Denies any chest pain or shortness of breath. Denies any fevers. Denies recent travel. Denies any diarrhea or constipation. Last bowel movement this morning. History of abdominal surgery. REVIEW OF SYSTEMS: Pertinent positives: Abdominal pain, nausea vomiting Pertinent negatives: Chest pain, shortness of breath, constipation, diarrhea, melena, hematochezia, hematemesis, fever PHYSICAL EXAM: Nursing triage notes reviewed, Vital signs reviewed Constitutional: please see mdm HENT: MMM Eyes: Pupils equal round and reactive to light, Extraocular muscles intact Neck: No stridor, no JVD, full neck ROM Lungs: Clear to auscultation, No wheezing or rales. No increased work of breathing, no conversational dyspnea, no accessory muscle use, no nasal flaring. No respiratory distress noted Heart: Regular rate and rhythm, No murmurs, No rubs and No gallops, 2+ distal pulses (radial, femoral, posterior tibial) in all extremities Abdomen: Soft, there is diffuse tenderness, there is mild distention but no rigidity, rebound or guarding, no obvious peritoneal signs, no palpable pulsatile abdominal masses, no auscultated abdominal bruit : No CVAT Extremities: No edema Neuro: No focal neurological deficits, cranial nerves II through XII intact, 5/5 strength in all extremities. Intact sensation to light touch in all extremities, 2+ reflexes bilateral patella tendons. Normal gait. No ataxia. Skin: No rash or lesions noted MEDICAL DECISION MAKING: Chief Complaint: Abdominal pain External records reviewed: Imaging reviewed, CT scan of the abdomen pelvis from March 2023 shows no definitive abnormality, hiatal hernia. Multiple ED visits in the last 6 months for nausea vomiting, dehydration or cyclic vomiting Factors affecting care: Hypertension, Social determinants of health: none History obtained from others: none Consults: none MDM Narrative: Patient was initially hypertensive, mildly tachycardic. Abdominal exam was nonperitoneal, there is mild distention. Patient was treated with IV fluids, initially Zofran and morphine. He still had symptomatology nausea and vomiting. He was then treated with low-dose of morphine as well as haloperidol. This relieved his nausea and vomiting is able to tolerate p.o. I considered the following differential diagnosis: Small bowel obstruction, dehydration, gastroenteritis, pancreatitis, hepatobiliary obstruction ALL IMAGES (IF OBTAINED) HAVE BEEN PERSONALLY REVIEWED AND INTERPRETED BY MYSELF. CBC with leukocytosis suggestive of systemic inflammation (similar to prior downtrending from last study), mild anemia, no thrombocytopenia EKG with normal sinus rhythm, normal axis, no intervals, no STEMI BMP with mild hypokalemia, baseline CKD, no anion gap to suggest endorgan hypoperfusion LFTs show no evidence of hepatobiliary pathology. Lipase is wnl indicating no pancreatic inflammation. Urinalysis shows no evidence of urinary inflammation suggestive of UTI CT scan shows evidence of hiatal hernia but no acute surgical pathology The amalgamation of the patient's labs images showed no evidence of acute process no evidence of severe dehydration, acute kidney injury, no evidence of hepatobiliary obstruction, no evidence of small bowel obstruction or perforation. There was leukocytosis this is likely reactive secondary to nausea vomiting is not represent a life-threatening process. No indication for further ED treatment or hospitalization at this time. Gave the patient Phenergan for nausea vomiting told at home and gave strict return precautions. The patient and/or family, caregivers express understanding. The patient and/or family, caregivers agrees with the plan. Shared decision making: I will have a discussion with the patient and or visitors regarding risk/benefits of further testing or admission. They will be made aware of of the risk/benefits inherent in this decision they will be given the opportunity to voice understanding. Total critical care time today provided was at least 0 minutes. This excludes separately billable procedures. Critical care time (if documented) is secondary to the patient having high probability of clinically significant/life threatening deterioration in the patient's condition which required my urgent intervention. Impression: 1. Nausea vomiting 2. Leukocytosis 3. Anemia 4. CKD 5. Hiatal hernia Dispo: Discharge Lab Data Attestation: I reviewed the patient's lab results. Labs: Laboratory Results - last 24 hr 06/18/23 06/18/23 14:50 16:45 WBC 16.8 H RBC 4.54 L Hgb 12.7 L Hct 39.4 L MCV 86.8 MCH 28.0 MCHC 32.2 RDW Std Deviation 53.5 H RDW Coeff of Florencio 16.8 H Plt Count 416 MPV 9.5 Immature Gran % (Auto) 1.800 H Neut % (Auto) 86.1 H Lymph % (Auto) 8.1 L Crow[place] % (Auto) 3.0 Eos % (Auto) 0.5 Baso % (Auto) 0.5 Absolute Neuts (auto) 14.5 H Absolute Lymphs (auto) 1.36 Nucleated RBC % 0 Sodium 135 L Potassium 4.0 Chloride 105 Carbon Dioxide 21.0 Anion Gap 9 BUN 19 H Creatinine 1.43 H Est GFR (MDRD) Af Amer 64 Est GFR (MDRD) Non-Af 53 L BUN/Creatinine Ratio 13.3 Glucose 132 H Calcium 9.4 Total Bilirubin 0.30 AST 22 ALT 21 Alkaline Phosphatase 54 Total Protein 8.2 Albumin 4.2 Globulin 4.0 Albumin/Globulin Ratio 1.0 Lipase 40 Urine Color Yellow Urine Clarity Clear Urine pH 6.0 Ur Specific [place] 1.015 Urine Protein 15 H Urine Glucose (UA) Normal Urine Ketones Negative Urine Occult Blood 50 H Urine Nitrite Negative Urine Bilirubin Negative Urine Urobilinogen Normal Ur Leukocyte Esterase Negative Urine RBC 5-10 SEEN Urine WBC 0 SEEN Ur Squamous Epith Cells 0 SEEN Urine Bacteria 0 SEEN Urine Mucus 0 SEEN Radiography Diagnostic Testing: Clinical Impression(s) from Imaging Studies Abdomen/Pelvis CT 06/18/23 15:28 IMPRESSION: 1. Stable hiatal hernia. 2. Bilateral renal cysts with one slightly dense cyst in the right kidney which is unchanged from the reference exam and may represent a complex cyst. If indicated further evaluation with ultrasound or MRI may be beneficial. There has been no change from the reference exam. Electronically Signed: Leo Roberts MD at 16:57 EDT , Discharge Plan Triage Chief Complaint: Nausea/Vomiting ED Provider: Malcom Cordova Dx/Rx/DC Orders Prescriptions: New promethazine 25 mg tablet 25 mg PO Q6H PRN (Reason: nausea and vomiting) 7 Days Qty: 28 0RF No Action atorvastatin 40 mg Tablet 40 mg PO DAILY citalopram 40 mg Tablet 40 mg PO DAILY trazodone 50 mg Tablet 75 mg PO DAILY meloxicam 15 mg Tablet 15 mg PO DAILY PRN (Reason: UNKNOWN) sucralfate 1 gram Tablet 1 g PO 4X/DAY lisinopril 20 mg Tablet 20 mg PO DAILY amlodipine 10 mg Tablet 10 mg PO DAILY aspirin 81 mg Tablet,Chewable 81 mg PO DAILY fenofibrate 120 mg Tablet 145 mg PO DAILY dicyclomine 20 mg tablet 20 mg PO TID PRN (Reason: abdominal discomfort) Qty: 20 0RF dicyclomine 20 mg tablet 20 mg PO TID PRN (Reason: abdominal cramping) Qty: 14 0RF ondansetron 4 mg tablet,disintegrating 4 mg PO Q8H PRN PRN (Reason: Nausea) Qty: 10 0RF promethazine 12.5 mg tablet 12.5 mg PO TID PRN (Reason: nausea and vomiting) Qty: 20 0RF Rx Instructions: 3 doses during day; last dose no later than 4 hr before bedtime dicyclomine 20 mg tablet 20 mg PO TID Qty: 20 0RF promethazine [promethazine] 25 mg tablet 25 mg PO Q6H PRN PRN (Reason: Nausea) Qty: 16 0RF Primary Care Provider: Care Physician,No Primary Referrals: Annabel Hdez MD [Med Staff - Active Staff] - Activity Restrictions/Additional Instructions: Thank you for trusting us with your care today! Please take Tylenol (2 pills, 650 mg), ibuprofen (2 pills, 400 mg) every 6 hours as needed for pain and fever control. Please take Phenergan as prescribed for nausea vomiting control Please return to the emergency department if your symptoms change or worsen. Specifically develop chest pain, abdominal pain, nausea vomiting that causes you to not be able to tolerate food or medicine by mouth Please follow with your primary care physician for further outpatient evaluation and management. Disposition Disposition: Home, Self Care
[2023-06-18 15:13] LABS: AST(SGOT) 22 U/L (15-37); Alanine Aminotransfer ALT/SGPT 21 U/L (16-61); Albumin, Serum 4.2 g/dL (3.2-5.0); Alkaline Phosphatase 54 U/L (45-117); Anion Gap 9 (5-15); BUN 19 mg/dL (7-18); BUN/Creat Ratio 13.3 RATIO (10-20); Calcium,Total 9.4 mg/dL (8.5-10.1); Chloride 105 mmol/L (98-107); Creatinine, Serum 1.43 mg/dL (0.70-1.30); EST Glomerular Filtration Rate 53 mL/min (>60); Est Glom Filt Rate - Afr Amer 64 mL/min (>60); Glucose 132 mg/dL (74-106); Protein, Total 8.2 g/dL (6.4-8.2); Sodium Level 135 mmol/L (136-145)
[2023-06-18] MEDS: 0.9% Normal Saline (1000mL) 1,000 ML 999 ML IV (15:28)
[2023-06-18] MEDS: Morphine 4 MG/ML Syringe IV ×2 (15:28→16:33)
[2023-06-18] MEDS: Metoclopramide 10 MG/2 ML Vial IV (15:28)
--- NOTE | 2023-06-18 15:28 | CT_ITS ---
EXAM: CT ABDOMEN AND PELVIS WITH INTRAVENOUS CONTRAST CLINICAL INDICATION: diffuse abdominal pain TECHNIQUE: Helically acquired images were obtained of the abdomen and pelvis with intravenous contrast. This CT exam was performed using one or more of the following dose reduction techniques: automated exposure control, adjustment of the mA and/or kV according to patient size, and/or use of iterative reconstruction technique. CONTRAST: IV 100mL Isovue-370 COMPARISON: 04/17/2023 FINDINGS: LOWER THORAX: There is a small hiatal hernia present. Lung bases are clear. No cardiomegaly. No significant pericardial effusion. ABDOMEN: LIVER: Unremarkable. Homogeneous. No focal mass. GALLBLADDER AND BILE DUCTS: There are surgical clips from a cholecystectomy. No intra- or extrahepatic biliary ductal dilation. PANCREAS: Unremarkable. No focal cystic or solid mass. SPLEEN: Unremarkable. Normal size without focal cystic or solid mass. ADRENALS: There is mild stable enlargement of the adrenal glands which may be due to hyperplasia. KIDNEYS AND URETERS: There are low-density masses seen on the kidneys which are stable compatible with simple cysts. One cyst in the upper pole of the right kidney is slightly hyperintense but unchanged from the reference exam. If indicated further evaluation with ultrasound or MRI beneficial. No hydronephrosis. STOMACH AND BOWEL: Unremarkable. No stomach or bowel distention. No focal inflammatory change. PELVIS: APPENDIX: No evidence of acute appendicitis. BLADDER: Unremarkable. REPRODUCTIVE: Unremarkable as visualized. No mass. ABDOMEN and PELVIS: INTRAPERITONEAL SPACE: Unremarkable. No ascites or other fluid collection. No free air. BONES/JOINTS: Unremarkable. No suspicious lytic or blastic abnormality. SOFT TISSUES: Unremarkable. No discrete abdominal or pelvic wall hernia. VASCULATURE: Unremarkable. Abdominal aorta is non-dilated. LYMPH NODES: Unremarkable. No enlarged lymph nodes. CT/Abdomen/Pelvis W IV Cont ONLY IMPRESSION: 1. Stable hiatal hernia. 2. Bilateral renal cysts with one slightly dense cyst in the right kidney which is unchanged from the reference exam and may represent a complex cyst. If indicated further evaluation with ultrasound or MRI may be beneficial. There has been no change from the reference exam. Electronically Signed: Leo Roberts MD at 16:57 EDT ,
--- NOTE | 2023-06-18 16:19 | EKG12_ITS ---
Test Reason : N/V Blood Pressure : / mmHG Vent. Rate : 085 BPM Atrial Rate : 085 BPM P-R Int : 160 ms QRS Dur : 106 ms QT Int : 396 ms P-R-T Axes : 039 018 040 degrees QTc Int : 471 ms Normal sinus rhythm Normal ECG Confirmed by FREEMAN GIORDANO, MATILDA ([id number]), electronic news gathering editor REGAN BARRERA ([id number]) on 06/21/2023 1:22:27 PM Referred By: Confirmed By:MATILDA MILLARD MD
[2023-06-18 16:31] LABS: Lipase 40 U/L (13-75)
[2023-06-18] MEDS: Haloperidol Lactate 5 MG/ML Vial 2 MG IV (16:33)
[2023-06-18 16:50] LABS: Bacteria 0 SEEN /hpf (None Seen); Mucous, Urine 0 SEEN /hpf (<or=2+); Squamous Epithelial Cells - UA 0 SEEN /hpf (0-5); White Blood Cells 0 SEEN /hpf (0-5)
[2023-06-18 16:56] LABS: Color, Urine Yellow (Yellow); Glucose, Dipstick Normal (Normal); Ketone-Dipstick Negative (Negative); Leukocyte Esterase-Dipstick Negative /ul (Negative); Nitrite-Dipstick Negative (Negative); Occult Blood-Urine 50 /ul (Negative); Protein-Dipstick 15 mg/dl (Negative); Specific Gravity, Urine 1.015 (1.002-1.030); Urine Bilirubin Dipstick Negative (Negative); Urine Clarity Clear (Clear); Urine Urobilinogen Normal (Normal)
[2023-06-18 17:37] LABS: Red Blood Cells-Urine 5-10 SEEN /hpf (0-5)
[2023-06-18 18:10] VITALS: BP 141/79; PULSE 82; RESP 16; O2SAT 95
[2023-06-18 18:53] VITALS: BP 148/76; PULSE 88; RESP 16; O2SAT 94
== END 2023-06-18 18:54 | disposition home or self-care (01) ==
PROVIDERS: Emergency Provider Emergency Medicine; Visit Provider Emergency Medicine
DX: R11.2 Nausea with vomiting, unspecified (principal); D72.829 Elevated white blood cell count, unspecified; D64.9 Anemia, unspecified; N18.2 Chronic kidney disease, stage 2 (mild); K44.9 Diaphragmatic hernia without obstruction or gangrene; F17.290 Nicotine dependence, other tobacco product, uncomplicated
CPT/HCPCS: 74177; 80053; 81001; 83690; 85025; 93005; 96361; 96374; 96375; 96376; 99283; J7030; Q9967; A4216

== ENCOUNTER 2023-09-06 11:49 | Emergency (ER) | payer MEDICARE, SELFPAY ==
[2023-09-06 11:51] VITALS: BP 168/118; PULSE 116; RESP 18; TEMP 36.8; O2SAT 98; BMI 28.2
--- NOTE | 2023-09-06 12:00 | EKG12_ITS ---
Test Reason : N/V Blood Pressure : / mmHG Vent. Rate : 079 BPM Atrial Rate : 079 BPM P-R Int : 108 ms QRS Dur : 094 ms QT Int : 404 ms P-R-T Axes : -22 016 043 degrees QTc Int : 463 ms Sinus rhythm with short [place] Possible Inferior infarct , age undetermined Abnormal ECG Confirmed by ALKA GIORDANO, NAOMI ([id number]), assistant film editor SAPPIHRE URIBE ([id number]) on 09/10/2023 11:19:53 A M Referred By: ANNABELLE Confirmed By:DAYANARA RUCKER MD
--- NOTE | 2023-09-06 12:01 | EX.ED.DYSGE1 ---
HPI History of Present Illness Chief Complaint: Nausea/Vomiting Detail of Chief Complaint: Vomiting Informant: patient Narrative Narrative: Patient presents to the emergency department with complaint of vomiting this around 5 AM. Patient states that he has a history of cyclic vomiting. His last episode was a few months ago. He describes diffuse abdominal pain. He has vomited multiple times. He denies diarrhea. Denies fever. He denies chest pain or shortness of breath. Prior similar symptoms: Yes [facility] Medical History (Updated 09/06/23 @ 15:[address] Trenton Ruiz, ) Cyclic vomiting syndrome Heart attack Hiatal hernia Home Medications amlodipine 10 mg tablet 10 mg PO DAILY 11/11/22 [History Last Taken Unknown] aspirin 81 mg chewable tablet 81 mg PO DAILY 11/11/22 [History Last Taken Unknown] atorvastatin 40 mg tablet 40 mg PO DAILY 11/11/22 [History Last Taken Unknown] citalopram 40 mg tablet 40 mg PO DAILY 11/11/22 [History Last Taken Unknown] fenofibrate 120 mg tablet 145 mg PO DAILY 11/11/22 [History Last Taken Unknown] lisinopril 20 mg tablet 20 mg PO DAILY 11/11/22 [History Last Taken Unknown] meloxicam 15 mg tablet 15 mg PO DAILY PRN UNKNOWN 11/11/22 [History Last Taken Unknown] sucralfate 1 gram tablet 1 g PO 4X/DAY 11/11/22 [History Last Taken Unknown] trazodone 50 mg tablet 75 mg PO DAILY 11/11/22 [History Last Taken Unknown] promethazine 25 mg tablet 25 mg PO Q6H PRN nausea and vomiting 7 days #28 tabs 06/18/23 [Rx Last Taken Unknown] acetaminophen 500 mg tablet (Tylenol Extra Strength) 500 mg PO Q6H PRN 08/22/23 [History Last Taken Unknown] alprazolam 1 mg tablet See Rx Instructions .Route .COMPLEX #1 TAB 08/22/23 [Rx Last Taken Unknown] clopidogrel 75 mg tablet (Plavix) 75 mg PO DAILY 08/22/23 [History Last Taken Unknown] lansoprazole 15 mg capsule,delayed release 15 mg PO DAILY 08/22/23 [History Last Taken Unknown] metoprolol succinate 25 mg tablet,extended release 24 hr 25 mg PO BID 08/22/23 [History Last Taken Unknown] nitroglycerin 0.4 mg sublingual tablet 0.4 mg sublingual Q5M PRN 08/22/23 [History Last Taken Unknown] Allergy/AdvReac Type Severity Reaction Status Date / Time Penicillins [PCN] Allergy Severe Rash Verified 09/06/23 11:51 sertraline [From Zoloft] Allergy Severe Other Verified 09/06/23 11:51 nitrofurantoin AdvReac Severe Rash Verified 09/06/23 11:51 [From Macrobid] Surgical History History of cholecystectomy History of repair of hiatal hernia Social History Smoking Status: Former smoker details: Denies alcohol use and history of pancreatitis substance use type: does not use ROS ROS ED Review of Systems ROS Unobtainable: other Constitutional Constitutional ED: Reports lethargy; Denies chills, fever(s), sweats or weight loss Eyes Eyes: Denies blurry vision, change in vision or diplopia ENT ENT ED: Denies rhinorrhea or sore throat Cardiovascular Cardiovascular: Denies chest pain, orthopnea or racing heartbeat Respiratory/Chest Respiratory/Chest: Denies cough, dyspnea, dyspnea on exertion, orthopnea or sputum Gastrointestinal Gastrointestinal: Reports abdominal pain, nausea and vomiting; Denies diarrhea Genitourinary Genitourinary ED: Denies dysuria, hematuria or urinary frequency Musculoskeletal Musculoskeletal: Denies arthralgias, back pain, myalgias or neck pain Integumentary Denies abscess, Abrasions or rash Neurologic Neurologic: Denies headache(s) or weakness Psychiatric Psychiatric: Denies anxiety, depression or suicidal thoughts Endocrine Endocrinology: Denies polydipsia, polyphagia or polyuria Hematologic/Lymphatic Hematologic/Lymphatic: Denies easy bleeding, easy bruising or lymphadenopathy Allergic/Immunologic Allergic/Immunologic ED: Denies mouth swelling, tongue swelling or urticaria EXAM Physical Exam Const Vital Signs: 09/06/23 11:51 09/06/23 14:39 Temperature 98.2 F Temperature Source Temporal Pulse Rate 116 H 67 Respiratory Rate 18 20 H Blood Pressure 168/118 H Blood Pressure Mean 134 Pulse Ox 98 99 Oxygen Delivery Method Room Air Room Air Positive well nourished and well developed General Appearance ED: well developed and NAD HEENT Reports TM's clear and moist mucous membranes normocephalic and atraumatic; Negative for trauma or tenderness Tympanic Membrane ED: Yes TM's clear Eyes PERRL and EOMs intact bilaterally General Eye ED: Negative for pale conjunctiva or scleral icterus Neck no lymphadenopathy, supple and no JVD General: Negative for tenderness Chest Wall inspection of chest normal and palpation of chest normal Chest: Negative for tenderness Resp normal respiratory effort and clear to auscultation bilaterally Effort and Inspection: Negative for respiratory distress or pain with movement Auscultation: Negative for rhonchi, wheezes or diminished lung sounds Cardio regular rate, regular rhythm, S1 normal heart sound, S2 normal heart sound and no murmurs Peripheral Pulses: pulses 2+ throughout GI normal to inspection, nondistended, normoactive bowel sounds, soft to palpation, non-distended and no masses GI Narrative: Diffuse tenderness on exam. There is no rebound, rigidity, or perineal signs. No mass palpated. Back/Spine no CVA tenderness and no thoracic nor lumbar tenderness Extremity normal to inspection General Extremety ED: Negative for edema General Extremity: Negative for edema Neuro oriented x3, CN's II-XII intact bilaterally, no sensory deficits noted and gait normal Sensorium / Orientation: awake, alert, oriented to person, oriented to place and oriented to time Motor Exam: strength 5/5 throughout and strength abnormal Psych mental status grossly normal Skin no rashes or lesions noted and no wounds MDM MDM MDM Narrative Medical decision making narrative: Patient presents with vomiting and abdominal pain. History of cyclic vomiting. IV established. CBC with differential white count 14 with hemoglobin 12.8 and platelet count of 407. Chemistries unremarkable. CO2 was depressed at 19. BUN 11 creatinine 1.2. Glucose elevated 164. Lactate elevated 4.9. LFTs unremarkable. Lipase was normal. Patient initially was medicated with Reglan as well as Benadryl and morphine for pain. Patient continued to complain of pain and was given another 4 mg of morphine and Zofran. CT scan of the M pelvis ordered results of which are currently pending. Case patient will be turned over to evening physician awaiting CT results and final disposition. Lab Data Labs: Laboratory Results - last 24 hr 09/06/23 12:15 WBC 14.0 H RBC 4.55 L Hgb 12.8 L Hct 40.2 MCV 88.4 MCH 28.1 MCHC 31.8 L RDW Std Deviation 44.7 H RDW Coeff of Florencio 13.9 Plt Count 407 MPV 10.2 Immature Gran % (Auto) 0.600 Neut % (Auto) 90.5 H Lymph % (Auto) 5.7 L [place] % (Auto) 2.9 Eos % (Auto) 0.0 Baso % (Auto) 0.3 Absolute Neuts (auto) 12.7 H Absolute Lymphs (auto) 0.80 L Nucleated RBC % 0 Sodium 141 Potassium 3.3 L Chloride 110 H Carbon Dioxide 19.0 L Anion Gap 12 BUN 11 Creatinine 1.21 Estim Creat Clear Calc 62.84 Est GFR (MDRD) Af Amer 77 Est GFR (MDRD) Non-Af 64 BUN/Creatinine Ratio 9.1 L Glucose 164 H Lactic Acid 4.9 H* Calcium 9.9 Total Bilirubin 0.40 AST 21 ALT 23 Alkaline Phosphatase 63 Total Protein 8.1 Albumin 4.2 Globulin 3.9 Albumin/Globulin Ratio 1.1 Lipase 30 Radiography Diagnostic Testing: Clinical Impression(s) from Imaging Studies Abdomen/Pelvis CT 09/06/23 14:07 IMPRESSION: Stable examination. There has been no change. Electronically Signed: Ivan Norton MD at 15:25 EST , Discharge Plan Triage Chief Complaint: Nausea/Vomiting ED Provider: Trenton Ruiz Dx/Rx/DC Orders Clinical Impression: Abdominal pain, Vomiting Prescriptions: No Action clopidogrel [Plavix] 75 mg tablet 75 mg PO DAILY metoprolol succinate 25 mg tablet extended release 24 hr 25 mg PO BID lansoprazole 15 mg capsule,delayed release(DR/EC) 15 mg PO DAILY nitroglycerin 0.4 mg tablet, sublingual 0.4 mg sublingual Q5M PRN Rx Instructions: do not exceed 3 doses per episode acetaminophen [Tylenol Extra Strength] 500 mg tablet 500 mg PO Q6H PRN alprazolam 1 mg tablet See Rx Instructions .ROUTE .COMPLEX Qty: 1 0RF Rx Instructions: Take 1 tablet orally 30 minutes prior to MRI atorvastatin 40 mg Tablet 40 mg PO DAILY citalopram 40 mg Tablet 40 mg PO DAILY trazodone 50 mg Tablet 75 mg PO DAILY meloxicam 15 mg Tablet 15 mg PO DAILY PRN (Reason: UNKNOWN) sucralfate 1 gram Tablet 1 g PO 4X/DAY lisinopril 20 mg Tablet 20 mg PO DAILY amlodipine 10 mg Tablet 10 mg PO DAILY aspirin 81 mg Tablet,Chewable 81 mg PO DAILY fenofibrate 120 mg Tablet 145 mg PO DAILY promethazine 25 mg tablet 25 mg PO Q6H PRN (Reason: nausea and vomiting) 7 Days Qty: 28 0RF Primary Care Provider: Care Physician,No Primary Referrals: Care Physician,No Primary [Primary Care Provider] -
[2023-09-06] MEDS: 0.9% Normal Saline (1000mL) 1,000 ML 1000 ML IV (12:15)
[2023-09-06] MEDS: DiphenhydrAMINE 50 MG/ML Syringe 25 MG IV (12:15)
[2023-09-06] MEDS: Morphine 4 MG/ML Syringe IV ×2 (12:15→14:27)
[2023-09-06] MEDS: Metoclopramide 10 MG/2 ML Vial IV (12:16)
[2023-09-06 12:32] LABS: Absolute Neutrophil Count 12.7 X10^3/uL (2.0-7.7); Basophil# 0.04 X10^3/uL; Basophil% 0.3 % (0-1); Hematocrit 40.2 % (40-54); Hemoglobin 12.8 g/dL (13.0-16.5); Lymphocyte % 5.7 % (19-41); Mean Corp Hgb Conc 31.8 g/dL (32-36); Mean Corpuscular Hgb 28.1 pg (27.0-32.0); Mean Corpuscular Volume 88.4 fL (80-94); Mean Platelet Vol. 10.2 fl (6.2-12.0); Monocyte# 0.41 X10^3/uL; Monocyte% 2.9 % (0-10); NRBC Flagged by Analyzer 0 % (0-5); Neutrophil # 12.65 X10^3/uL (2.7-7.7); Neutrophil % 90.5 % (47-70); Platelet Count 407 K/mm3 (150-450); RBC Distribution Width CV 13.9 % (11.6-14.6); RBC Distribution Width SD 44.7 fl (35.1-43.9); Red Blood Count 4.55 M/mm3 (4.6-6.2)
[2023-09-06] MEDS: Pantoprazole Sodium 80 MG in 0.9% Normal Saline (50mL Bag) 15 ML 420 MG IV BOLUS (12:36)
[2023-09-06 12:45] LABS: ALB/GLOB Ratio 1.1 RATIO (0.9-2.4); AST(SGOT) 21 U/L (15-37); Alanine Aminotransfer ALT/SGPT 23 U/L (16-61); Albumin, Serum 4.2 g/dL (3.2-5.0); Alkaline Phosphatase 63 U/L (45-117); Anion Gap 12 (5-15); BUN 11 mg/dL (7-18); BUN/Creat Ratio 9.1 RATIO (10-20); Calcium,Total 9.9 mg/dL (8.5-10.1); Chloride 110 mmol/L (98-107); Creatinine, Serum 1.21 mg/dL (0.70-1.30); EST Glomerular Filtration Rate 64 mL/min (>60); Est Glom Filt Rate - Afr Amer 77 mL/min (>60); Estimated Creatinine Clearance 62.84 ml/min; Globulin 3.9 g/dL (2.2-4.2); Glucose 164 mg/dL (74-106); Lipase 30 U/L (13-75); Potassium 3.3 mmol/L (3.5-5.1); Protein, Total 8.1 g/dL (6.4-8.2); Sodium Level 141 mmol/L (136-145)
[2023-09-06 12:50] LABS: Lactic Acid 4.9 mmol/L (0.4-1.9)
--- NOTE | 2023-09-06 14:07 | CT_ITS ---
STUDY: CT ABDOMEN AND PELVIS WITH CONTRAST REASON FOR EXAM: Male, 63 years old. Abdominal pain and cyclic vomiting. RADIATION DOSAGE (If Supplied By Facility): CTDIvol = ( 13.48 ) mGy, DLP = ( 913.75 ) mGycm TECHNIQUE: Transaxial images were obtained from the dome of the diaphragm to the symphysis pubis without oral contrast. IV 100mL Isovue-300 was administered. Sagittal and coronal images were reconstructed. Individualized dose optimization techniques were used for this CT. COMPARISON: Comparison is made with prior examination dated June 18, 2023. FINDINGS: The visualized lung bases are unremarkable. Coronary artery calcification. There is decreased attenuation of the liver consistent with steatosis. There are surgical clips in the gallbladder fossa consistent with a prior cholecystectomy. Stable lobular enlargement of both adrenal glands more prominent on the right side. A 9 mm fatty lesion is seen within the right adrenal gland suggestive of possible lipoma. Normal spleen. Normal pancreas. Normal bilateral adrenal glands. Stable bilateral renal cysts. The largest cyst in the left kidney is along the inferior pole and measures 7.1 cm x 7.7 cm. The largest cyst in the right kidney is in the lower pole and measures 5 cm x 3.8 cm. Stable 3 cm x 3.2 cm exophytic cyst in the lateral aspect of the midpole of the right kidney. This is slightly denser than a simple cyst. There has been no change. There is a moderate-sized hiatal hernia. Normal small intestine. Normal colon. The appendix is visualized and appears normal. There is diffuse atherosclerotic calcification of the abdominal aorta, without a demonstrated aneurysm. Normal inferior vena cava. Normal retroperitoneum. Normal urinary bladder. Normal abdominal wall. Normal osseous structures. CT/Abdomen/Pelvis W IV Cont ONLY IMPRESSION: Stable examination. There has been no change. Electronically Signed: Ivan Norton MD at 15:25 EST ,
[2023-09-06] MEDS: Ondansetron 4 MG/2 ML Vial IV (14:26)
[2023-09-06 14:39] VITALS: PULSE 67; RESP 20; O2SAT 99
[2023-09-06] MEDS: 0.9% Normal Saline (1000mL) 1,000 ML 999 ML IV (15:38)
[2023-09-06 15:49] LABS: Bacteria 0 SEEN /hpf (None Seen); Mucous, Urine 0 SEEN /hpf (<or=2+)
[2023-09-06 15:52] LABS: Color, Urine Yellow (Yellow); Glucose, Dipstick Normal (Normal); Ketone-Dipstick Negative (Negative); Leukocyte Esterase-Dipstick Negative /ul (Negative); Nitrite-Dipstick Negative (Negative); Occult Blood-Urine 50 /ul (Negative); Protein-Dipstick 15 mg/dl (Negative); Urine Bilirubin Dipstick Negative (Negative); Urine Clarity Clear (Clear); Urine Urobilinogen Normal (Normal)
[2023-09-06 16:00] VITALS: PULSE 65; RESP 20; O2SAT 98
[2023-09-06 16:06] LABS: Red Blood Cells-Urine 0-5 SEEN /hpf (0-5); Squamous Epithelial Cells - UA 0-5 SEEN /hpf (0-5); White Blood Cells 0-5 SEEN /hpf (0-5)
[2023-09-06] MEDS: Haloperidol Lactate 5 MG/ML Vial 2 MG IV (16:12)
[2023-09-06 16:21] LABS: Reflex Lactate? Y
[2023-09-06 17:26] LABS: Lactic Acid 2.1 mmol/L (0.4-1.9)
[2023-09-06 18:00] VITALS: RESP 18; O2SAT 100
== END 2023-09-06 18:05 | disposition home or self-care (01) ==
PROVIDERS: Emergency Medicine; Emergency Provider Emergency Medicine; Visit Provider Emergency Medicine
DX: R10.9 Unspecified abdominal pain (principal); R11.2 Nausea with vomiting, unspecified; Z87.891 Personal history of nicotine dependence
CPT/HCPCS: 74177; 80053; 81001; 83605; 83690; 85025; 87428; 93005; 96361; 96374; 96375; 96376; 99282; J7030; Q9967; A4216; J2405; J3490

== ENCOUNTER → 2023-10-19 | Outpatient (CLI) | payer MEDICARE, SELFPAY ==
--- NOTE | 2023-10-19 13:50 | RAD_ITS ---
STUDY: X-RAY - ORBITS REASON FOR EXAM: Male, 63 years old. History of metal in the eye TECHNIQUE: 1 view(s) of the orbits were obtained. COMPARISON: None. FINDINGS: Normal bilateral orbits without a metallic orbital foreign body. Normal visualized facial bones. Mucosal thickening of the maxillary sinuses bilaterally. The soft tissue structures are unremarkable. RAD/Orbits for Foreign Body IMPRESSION: No demonstrated metallic orbital foreign body. The patient is cleared for an MRI examination. Electronically Signed: Ivan Norton MD at 14:03 EST ,
--- NOTE | 2023-10-19 14:20 | MRI_ITS ---
STUDY: MRI BRAIN WITH AND WITHOUT CONTRAST REASON FOR EXAM: Male, 63 years old. seizure around 2018; mild cognitive impairment TECHNIQUE: Standardized multiplanar fat and water weighted pulse sequences were obtained. IV 18CC CLARISCAN was administered for the contrast portion of the examination. COMPARISON: None. FINDINGS: Normal size of the ventricles and extra-axial spaces for the patient''s age. Normal white matter tracts of the supratentorial brain. Normal bilateral basal ganglia. Normal thalami. There is no extra-axial fluid accumulation. Normal flow voids within the major intracranial circulation suggesting patency by spin echo criteria. Normal venous enhancement. There is no enhancing intra-axial or extra-axial abnormality. Normal sella turcica, pituitary gland, infundibular stalk, optic chiasm and hypothalamus. Normal tectal plate and pineal gland. Normal midbrain, jonh and medulla. Normal cerebellum. Normal basal cisterns. Normal bilateral temporal bones. Normal bilateral internal auditory canals. No demonstrated orbital abnormality, within the constraints of a routine brain study. Mucosal thickening in left maxillary sinus.. Normal calvarium and skull base. Normal visualized soft tissue structures. Normal visualized upper cervical spine. MRI/Brain W/WO Contrast IMPRESSION: Normal unenhanced and enhanced MRI of the brain. Left maxillary sinus disease likely chronic Electronically Signed: Jorge Brizuela MD at 16:43 EST ,
[2023-10-19 15:20] LABS: CREATININE FINGERSTICK 1.4 mg/dL (0.70-1.30)
== END | disposition home or self-care (01) ==
PROVIDERS: Referring Provider Psychiatry & Neurology Neurology; Visit Provider Psychiatry & Neurology Neurology
DX: R56.9 Unspecified convulsions (principal); G31.84 Mild cognitive impairment of uncertain or unknown etiology
CPT/HCPCS: 70030; 70553; A9575

== ENCOUNTER → 2023-11-01 | Outpatient (CLI) | payer MEDICARE, SELFPAY | END | disposition home or self-care (01) | LOC: PSN 12:19 | PROVIDERS: Referring Provider Psychiatry & Neurology Neurology; Visit Provider Psychiatry & Neurology Neurology | DX: R56.9 Unspecified convulsions (principal); G31.84 Mild cognitive impairment of uncertain or unknown etiology | CPT/HCPCS: 95819 ==

== ENCOUNTER → 2023-12-17 | Outpatient (CLI) | payer MEDICARE, SELFPAY ==
[2023-12-17 15:34] LABS: Hematocrit 38.9 % (40-54); Hemoglobin 12.3 g/dL (13.0-16.5); Mean Corp Hgb Conc 31.6 g/dL (32-36); Mean Corpuscular Volume 88.6 fL (80-94); Mean Platelet Vol. 9.3 fl (6.2-12.0); Platelet Count 337 K/mm3 (150-450); RBC Distribution Width CV 18.2 % (11.6-14.6); Red Blood Count 4.39 M/mm3 (4.6-6.2)
[2023-12-17 16:05] LABS: Vitamin B12 159 pg/mL (211-911)
[2023-12-17 16:19] LABS: AST(SGOT) 16 U/L (15-37); Alanine Aminotransfer ALT/SGPT 16 U/L (16-61); Albumin, Serum 3.5 g/dL (3.2-5.0); Alkaline Phosphatase 46 U/L (45-117); Anion Gap 8 (5-15); BUN 11 mg/dL (7-18); BUN/Creat Ratio 11.6 RATIO (10-20); Calcium,Total 8.8 mg/dL (8.5-10.1); Chloride 107 mmol/L (98-107); Creatinine, Serum 0.94 mg/dL (0.70-1.30); EST Glomerular Filtration Rate 85 mL/min (>60); Est Glom Filt Rate - Afr Amer 103 mL/min (>60); Globulin 3.4 g/dL (2.2-4.2); Glucose 80 mg/dL (74-106); Potassium 3.9 mmol/L (3.5-5.1); Protein, Total 6.9 g/dL (6.4-8.2); Sodium Level 137 mmol/L (136-145); Thyroid Stim Hormone (TSH) 0.61 uIU/mL (0.358-3.74)
[2023-12-20 20:07] LABS: Vitamin B1, Thiamine 142.4 nmol/L (66.5-200.0)
== END | disposition home or self-care (01) ==
PROVIDERS: Referring Provider Psychiatry & Neurology Neurology; Visit Provider Psychiatry & Neurology Neurology
DX: R56.9 Unspecified convulsions (principal); G31.84 Mild cognitive impairment of uncertain or unknown etiology
CPT/HCPCS: 80053; 82607; 82746; 84425; 84443; 85027

== ENCOUNTER → 2023-12-25 | Outpatient (CLI) | payer MEDICARE, SELFPAY ==
[2023-12-28 15:08] LABS: Intrinsic Factor Ab 1.1 AU/mL (0.0-1.1)
== END | disposition home or self-care (01) ==
LOC: LAB 12:58 → MTLAB 13:56
PROVIDERS: Referring Provider Psychiatry & Neurology Neurology; Visit Provider Psychiatry & Neurology Neurology
DX: E53.8 Deficiency of other specified B group vitamins (principal)
CPT/HCPCS: 36415; 86340

== ENCOUNTER 2024-01-16 10:46 | Emergency (ER) | payer MEDICARE, SELFPAY ==
[2024-01-16 10:47] VITALS: BP 158/106; PULSE 98; RESP 18; TEMP 35.3; O2SAT 98; BMI 28.3
--- NOTE | 2024-01-16 11:22 | EX.ED.DYSGE1 ---
HPI History of Present Illness Chief Complaint: Nausea/Vomiting Informant: patient Onset/Context/Timing Onset: Today Narrative Narrative: Patient presents secondary to abdominal pain with nausea and vomiting that started about 7 AM this morning. He has a history of cyclic vomiting with similar symptoms. He did have a normal bowel movement this morning. He denies fever. He states when he vomits he will break out in a cold sweat and have chills. [facility] Medical History Cyclic vomiting syndrome Heart attack Hiatal hernia Home Medications amlodipine 10 mg tablet 10 mg PO DAILY 11/11/22 [History Last Taken Unknown] aspirin 81 mg chewable tablet 81 mg PO DAILY 11/11/22 [History Last Taken Unknown] atorvastatin 40 mg tablet 40 mg PO DAILY 11/11/22 [History Last Taken Unknown] citalopram 40 mg tablet 40 mg PO DAILY 11/11/22 [History Last Taken Unknown] fenofibrate 120 mg tablet 145 mg PO DAILY 11/11/22 [History Last Taken Unknown] lisinopril 20 mg tablet 20 mg PO DAILY 11/11/22 [History Last Taken Unknown] meloxicam 15 mg tablet 15 mg PO DAILY PRN UNKNOWN 11/11/22 [History Last Taken Unknown] sucralfate 1 gram tablet 1 g PO 4X/DAY 11/11/22 [History Last Taken Unknown] trazodone 50 mg tablet 75 mg PO DAILY 11/11/22 [History Last Taken Unknown] promethazine 25 mg tablet 25 mg PO Q6H PRN nausea and vomiting 7 days #28 tabs 06/18/23 [Rx Last Taken Unknown] acetaminophen 500 mg tablet (Tylenol Extra Strength) 500 mg PO Q6H PRN 08/22/23 [History Last Taken Unknown] alprazolam 1 mg tablet See Rx Instructions .Route .COMPLEX #1 TAB 08/22/23 [Rx Last Taken Unknown] clopidogrel 75 mg tablet (Plavix) 75 mg PO DAILY 08/22/23 [History Last Taken Unknown] lansoprazole 15 mg capsule,delayed release 15 mg PO DAILY 08/22/23 [History Last Taken Unknown] metoprolol succinate 25 mg tablet,extended release 24 hr 25 mg PO BID 08/22/23 [History Last Taken Unknown] nitroglycerin 0.4 mg sublingual tablet 0.4 mg sublingual Q5M PRN 11/29/23 [History Last Taken Unknown] ondansetron 4 mg disintegrating tablet 4 mg PO Q8H PRN PRN Nausea #10 tabs 09/06/23 [Rx Last Taken Unknown] dicyclomine 20 mg tablet 20 mg PO TID PRN abdominal pain #14 tabs 01/16/24 [Rx Last Taken Unknown] promethazine 25 mg tablet 25 mg PO Q6H PRN nausea and vomiting #20 tabs 01/16/24 [Rx Last Taken Unknown] Allergy/AdvReac Type Severity Reaction Status Date / Time Penicillins [PCN] Allergy Severe Rash Verified 01/16/24 10:47 sertraline [From Zoloft] Allergy Severe Other Verified 01/16/24 10:47 nitrofurantoin AdvReac Severe Rash Verified 01/16/24 10:47 [From Macrobid] Surgical History History of cholecystectomy History of repair of hiatal hernia Social History Smoking Status: Current every day smoker tobacco type: cigarettes details: Denies alcohol use and history of pancreatitis substance use type: does not use ROS ROS ED Constitutional Constitutional ED: Denies chills or fever(s) Eyes Eyes: Denies change in vision or discharge from eye(s) ENT ENT ED: Denies discharge from eye(s), rhinorrhea or sore throat Cardiovascular Cardiovascular: Denies chest pain or palpitations Respiratory/Chest Respiratory/Chest: Denies cough or dyspnea Gastrointestinal Gastrointestinal: Reports abdominal pain, nausea and vomiting; Denies diarrhea Genitourinary Genitourinary ED: Denies dysuria Musculoskeletal Musculoskeletal: Denies back pain or extremity pain Integumentary Denies Abrasions or rash Neurologic Neurologic: Denies headache(s) or weakness Allergic/Immunologic Allergic/Immunologic ED: Denies lip swelling or urticaria EXAM Physical Exam Const Vital Signs: 01/16/24 10:47 01/16/24 13:00 01/16/24 15:00 Temperature 95.5 F L Temperature Source Temporal Pulse Rate 98 88 83 Respiratory Rate 18 14 18 Blood Pressure 158/106 H 182/92 H 134/82 H Blood Pressure Mean 123 122 97 Pulse Ox 98 94 Oxygen Delivery Method Room Air Room Air Positive well nourished and well developed General Appearance ED: well developed HEENT Reports moist mucous membranes Eyes EOMs intact bilaterally Chest Wall inspection of chest normal and palpation of chest normal Resp normal respiratory effort and clear to auscultation bilaterally Cardio regular rate and regular rhythm GI GI Narrative: Abdomen soft and distended. Mild diffuse tenderness. No guarding or rebound. Hypoactive bowel sounds. Extremity normal to inspection Neuro oriented x3 and no sensory deficits noted Motor Exam: strength 5/5 throughout Psych Mood & Affect: anxious Skin no rashes or lesions noted MDM MDM MDM Narrative Medical decision making narrative: IV line established. Patient given Dilaudid, Reglan, Benadryl, and IV fluids. Labwork obtained to evaluate for leukocytosis, anemia, and electrolyte derangement. History & Record Review Discussion w/independent historian: Patient Additional record(s) reviewed:: Prior ED visit and Prior labs Lab Data Attestation: I reviewed the patient's lab results. Labs: Laboratory Results - last 24 hr 01/16/24 11:40 WBC 13.8 H RBC 4.87 Hgb 13.6 Hct 41.8 MCV 85.8 MCH 27.9 MCHC 32.5 RDW Std Deviation 52.3 H RDW Coeff of Florencio 16.6 H Plt Count 408 MPV 10.1 Immature Gran % (Auto) 0.900 Neut % (Auto) 89.0 H Lymph % (Auto) 7.2 L [place] % (Auto) 2.4 Eos % (Auto) 0.1 Baso % (Auto) 0.4 Absolute Neuts (auto) 12.3 H Absolute Lymphs (auto) 0.99 Nucleated RBC % 0 Sodium 140 Potassium 3.4 L Chloride 110 H Carbon Dioxide 22.0 Anion Gap 8 BUN 17 Creatinine 0.96 Estim Creat Clear Calc 86.57 Est GFR (MDRD) Af Amer 101 Est GFR (MDRD) Non-Af 84 BUN/Creatinine Ratio 17.7 Glucose 140 H Calcium 9.4 Total Bilirubin 0.30 Direct Bilirubin 0.09 AST 18 ALT 16 Alkaline Phosphatase 59 Total Protein 7.5 Albumin 3.8 Globulin 3.7 Lipase 46 Treatment and Re-Evaluation :: Patient was initially given Dilaudid, Reglan, Benadryl, and IV fluids. Lab work reveals a white count of 13.8 with 89% neutrophils. Hemoglobin is 13.6. Chemistry studies reveal only slightly low potassium at 3.4. LFTs and lipase are unremarkable. Patient did require second dose of Dilaudid along with a dose of Haldol and Protonix. At this time patient states he does feel improved, just tired. I recommended home to sleep and let his GI tract reset and calm down from this inflammation. I will give him a prescription for Phenergan and Bentyl at home which he states has worked well for him. Return instructions given. Discharge Plan Triage Chief Complaint: Nausea/Vomiting ED Provider: Patience Lane Dx/Rx/DC Orders Clinical Impression: Vomiting Instructions: ED Vomiting (Adult) Prescriptions: New promethazine 25 mg tablet 25 mg PO Q6H PRN (Reason: nausea and vomiting) Qty: 20 0RF dicyclomine 20 mg tablet 20 mg PO TID PRN (Reason: abdominal pain) Qty: 14 0RF No Action clopidogrel [Plavix] 75 mg tablet 75 mg PO DAILY metoprolol succinate 25 mg tablet extended release 24 hr 25 mg PO BID lansoprazole 15 mg capsule,delayed release(DR/EC) 15 mg PO DAILY nitroglycerin 0.4 mg tablet, sublingual 0.4 mg sublingual Q5M PRN Rx Instructions: do not exceed 3 doses per episode acetaminophen [Tylenol Extra Strength] 500 mg tablet 500 mg PO Q6H PRN alprazolam 1 mg tablet See Rx Instructions .ROUTE .COMPLEX Qty: 1 0RF Rx Instructions: Take 1 tablet orally 30 minutes prior to MRI atorvastatin 40 mg Tablet 40 mg PO DAILY citalopram 40 mg Tablet 40 mg PO DAILY trazodone 50 mg Tablet 75 mg PO DAILY meloxicam 15 mg Tablet 15 mg PO DAILY PRN (Reason: UNKNOWN) sucralfate 1 gram Tablet 1 g PO 4X/DAY lisinopril 20 mg Tablet 20 mg PO DAILY amlodipine 10 mg Tablet 10 mg PO DAILY aspirin 81 mg Tablet,Chewable 81 mg PO DAILY fenofibrate 120 mg Tablet 145 mg PO DAILY ondansetron 4 mg tablet,disintegrating 4 mg PO Q8H PRN PRN (Reason: Nausea) Qty: 10 0RF promethazine 25 mg tablet 25 mg PO Q6H PRN (Reason: nausea and vomiting) 7 Days Qty: 28 0RF Primary Care Provider: Care Physician,No Primary Referrals: Friend,Aiden, DO [Med Staff - Active Staff] - As Needed Town Doctor,Out of [Non-Staff] - Disposition Disposition: Home, Self Care
[2024-01-16] MEDS: 0.9% Normal Saline (1000mL) 1,000 ML 1000 ML IV (11:34)
[2024-01-16] MEDS: Metoclopramide 10 MG/2 ML Vial IV (11:35)
[2024-01-16] MEDS: DiphenhydrAMINE 50 MG/ML Syringe 25 MG IV (11:38)
[2024-01-16] MEDS: HYDROmorphone 1 MG/ML Syringe 0.5 MG IV (11:40)
[2024-01-16 11:54] LABS: Absolute Lymphocyte Count 0.99 X10^3/uL (0.83-4.51); Absolute Neutrophil Count 12.3 X10^3/uL (2.0-7.7); Basophil# 0.05 X10^3/uL; Basophil% 0.4 % (0-1); Eosinophil# 0.01 X10^3/uL; Eosinophils% 0.1 % (0-5); Hematocrit 41.8 % (40-54); Hemoglobin 13.6 g/dL (13.0-16.5); Lymphocyte # 0.99 X10^3/ul (0.83-4.51); Lymphocyte % 7.2 % (19-41); Mean Corp Hgb Conc 32.5 g/dL (32-36); Mean Corpuscular Hgb 27.9 pg (27.0-32.0); Mean Corpuscular Volume 85.8 fL (80-94); Mean Platelet Vol. 10.1 fl (6.2-12.0); Monocyte# 0.33 X10^3/uL; Monocyte% 2.4 % (0-10); NRBC Flagged by Analyzer 0 % (0-5); Neutrophil # 12.32 X10^3/uL (2.7-7.7); Platelet Count 408 K/mm3 (150-450); RBC Distribution Width CV 16.6 % (11.6-14.6); RBC Distribution Width SD 52.3 fl (35.1-43.9); Red Blood Count 4.87 M/mm3 (4.6-6.2); White Blood Count 13.8 K/mm3 (4.4-11.0)
[2024-01-16 12:07] LABS: AST(SGOT) 18 U/L (15-37); Alanine Aminotransfer ALT/SGPT 16 U/L (16-61); Albumin, Serum 3.8 g/dL (3.2-5.0); Alkaline Phosphatase 59 U/L (45-117); Anion Gap 8 (5-15); BUN 17 mg/dL (7-18); BUN/Creat Ratio 17.7 RATIO (10-20); Bilirubin, Direct 0.09 mg/dL (0.00-0.30); Calcium,Total 9.4 mg/dL (8.5-10.1); Chloride 110 mmol/L (98-107); Creatinine, Serum 0.96 mg/dL (0.70-1.30); EST Glomerular Filtration Rate 84 mL/min (>60); Est Glom Filt Rate - Afr Amer 101 mL/min (>60); Estimated Creatinine Clearance 86.57 ml/min; Globulin 3.7 g/dL (2.2-4.2); Glucose 140 mg/dL (74-106); Lipase 46 U/L (13-75); Potassium 3.4 mmol/L (3.5-5.1); Protein, Total 7.5 g/dL (6.4-8.2); Sodium Level 140 mmol/L (136-145)
[2024-01-16 13:00] VITALS: BP 182/92; PULSE 88; RESP 14; O2SAT 94
[2024-01-16] MEDS: 0.9% Normal Saline (1000mL) 1,000 ML 150 ML IV (13:11)
[2024-01-16] MEDS: Haloperidol Lactate 5 MG/ML Vial 2 MG IV (13:11)
[2024-01-16] MEDS: HYDROmorphone 0.5 MG/0.5 ML SYRINGE IV (13:43)
[2024-01-16] MEDS: Pantoprazole Sodium 40 MG in 0.9% Normal Saline (100mL MB+) 100 ML 330 MG IV (13:44)
[2024-01-16 15:00] VITALS: BP 134/82; PULSE 83; RESP 18
[2024-01-16 15:41] VITALS: BP 154/83; PULSE 75; RESP 18; TEMP 36.6; O2SAT 92
== END 2024-01-16 15:42 | disposition home or self-care (01) ==
PROVIDERS: Emergency Provider Emergency Medicine; Visit Provider Emergency Medicine
DX: R11.2 Nausea with vomiting, unspecified (principal); I25.2 Old myocardial infarction; F17.210 Nicotine dependence, cigarettes, uncomplicated; Z79.899 Other long term (current) drug therapy; Z79.01 Long term (current) use of anticoagulants
CPT/HCPCS: 80048; 80076; 83690; 85025; 96361; 96365; 96375; 96376; 99284; J7030; A4216

== ENCOUNTER 2024-01-26 12:37 | Emergency (ER) | payer MEDICARE, SELFPAY ==
[2024-01-26 12:38] VITALS: BP 169/124; PULSE 72; RESP 18; TEMP 36.1; O2SAT 100; BMI 27.2
--- NOTE | 2024-01-26 12:48 | CT_ITS ---
HISTORY: right flank pain, right adrenal mass. TECHNIQUE: Helically acquired images were obtained of the abdomen and pelvis after the intravenous administration of 100 mL Isovue-370. A radiation dose optimization technique was used for this scan. 432 images. COMPARISON: 09/06/2023. FINDINGS: LOWER CHEST: Lung bases clear. Coronary artery disease. BOWEL: Moderate hiatal hernia with chronic mild gastric wall thickening. Bowel including appendix nondilated. Mild colonic diverticulosis without pericolonic inflammation. PERITONEUM: No significant ascites. LIVER: No enhancing mass. Mild fatty infiltration. GALLBLADDER/BILIARY TREE: Cholecystectomy with chronic postoperative biliary ductal dilatation. SPLEEN: Calcified granulomas. PANCREAS: Homogeneous and nonenlarged. KIDNEYS: Multiple left renal cysts measuring up to 8.4 cm again seen. Multiple small simple cystic, complex cystic, and complex indeterminate lesions in the right kidney again seen. No hydronephrosis. ADRENAL GLANDS: Stable 10 mm fat-containing right adrenal nodule with right greater than left adrenal thickening. VESSELS: No abdominal aortic aneurysm. Mild atherosclerosis of the abdominal aorta and its major branches. PELVIC ORGANS: Unremarkable. ABDOMINAL WALL: Small fat-containing inguinal hernias. BONES: Mild degenerative change. 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 Stable small cysts and complex lesions in the right kidney. Multiple left renal cysts, similar to prior. Moderate hiatal hernia with chronic gastric wall thickening. Colonic diverticulosis without acute diverticulitis. Unremarkable appendix. Cholecystectomy with chronic biliary ductal dilatation. Hepatic steatosis. Electronically Signed: Kendy Carrera MD at 14:41 EDT ,
--- NOTE | 2024-01-26 12:50 | EX.ED.DYSGE1 ---
HPI History of Present Illness Chief Complaint: Flank Pain Informant: patient Onset/Context/Timing Onset: Today Current Severity: Moderate Maximum Severity: Severe Narrative Narrative: Patient present secondary to right flank pain. He developed pain in the right CVA region this morning that wraps to his right side. He hands me an order from his doctor that states he has a known right adrenal mass and is requesting a CT scan. Patient also reports a history of kidney stones. He denies any obvious hematuria. He was able to urinate this morning without difficulty. [facility] Medical History (Updated 01/26/24 @ 16:[address] MD) Cyclic vomiting syndrome Heart attack Hiatal hernia History of kidney stones History of seizure Right adrenal mass Home Medications amlodipine 10 mg tablet 10 mg PO DAILY 11/11/22 [History Last Taken Unknown] aspirin 81 mg chewable tablet 81 mg PO DAILY 11/11/22 [History Last Taken Unknown] atorvastatin 40 mg tablet 40 mg PO DAILY 11/11/22 [History Last Taken Unknown] citalopram 40 mg tablet 40 mg PO DAILY 11/11/22 [History Last Taken Unknown] fenofibrate 120 mg tablet 145 mg PO DAILY 11/11/22 [History Last Taken Unknown] lisinopril 20 mg tablet 20 mg PO DAILY 11/11/22 [History Last Taken Unknown] meloxicam 15 mg tablet 15 mg PO DAILY PRN UNKNOWN 11/11/22 [History Last Taken Unknown] sucralfate 1 gram tablet 1 g PO 4X/DAY 11/11/22 [History Last Taken Unknown] trazodone 50 mg tablet 75 mg PO DAILY 11/11/22 [History Last Taken Unknown] promethazine 25 mg tablet 25 mg PO Q6H PRN nausea and vomiting 7 days #28 tabs 06/18/23 [Rx Last Taken Unknown] acetaminophen 500 mg tablet (Tylenol Extra Strength) 500 mg PO Q6H PRN 08/22/23 [History Last Taken Unknown] alprazolam 1 mg tablet See Rx Instructions .Route .COMPLEX #1 TAB 08/22/23 [Rx Last Taken Unknown] clopidogrel 75 mg tablet (Plavix) 75 mg PO DAILY 08/22/23 [History Last Taken Unknown] lansoprazole 15 mg capsule,delayed release 15 mg PO DAILY 08/22/23 [History Last Taken Unknown] metoprolol succinate 25 mg tablet,extended release 24 hr 25 mg PO BID 08/22/23 [History Last Taken Unknown] nitroglycerin 0.4 mg sublingual tablet 0.4 mg sublingual Q5M PRN 08/22/23 [History Last Taken Unknown] dicyclomine 20 mg tablet 20 mg PO TID PRN abdominal pain #14 tabs 01/16/24 [Rx Last Taken Unknown] promethazine 25 mg tablet 25 mg PO Q6H PRN nausea and vomiting #20 tabs 01/16/24 [Rx Last Taken Unknown] dicyclomine 20 mg tablet 20 mg PO TID PRN abdominal pain #14 tabs 01/26/24 [Rx Last Taken Unknown] promethazine 25 mg tablet 25 mg PO Q6H PRN nausea and vomiting #14 tabs 01/26/24 [Rx Last Taken Unknown] Allergy/AdvReac Type Severity Reaction Status Date / Time Penicillins [PCN] Allergy Severe Rash Verified 01/26/24 12:38 sertraline [From Zoloft] Allergy Severe Other Verified 01/26/24 12:38 nitrofurantoin AdvReac Severe Rash Verified 01/26/24 12:38 [From Macrobid] Surgical History History of cholecystectomy History of repair of hiatal hernia Social History Smoking Status: Current every day smoker tobacco type: cigarettes details: Denies alcohol use and history of pancreatitis substance use type: does not use ROS ROS ED Constitutional Constitutional ED: Denies chills or fever(s) Eyes Eyes: Denies discharge from eye(s) ENT ENT ED: Denies discharge from eye(s), rhinorrhea or sore throat Cardiovascular Cardiovascular: Denies chest pain or palpitations Respiratory/Chest Respiratory/Chest: Denies cough or dyspnea Gastrointestinal Gastrointestinal: Reports abdominal pain, nausea and vomiting; Denies diarrhea Genitourinary Genitourinary ED: Denies difficulty urinating or dysuria Musculoskeletal Musculoskeletal: Reports back pain; Denies extremity pain Integumentary Denies Abrasions or rash Neurologic Neurologic: Denies headache(s) or weakness Allergic/Immunologic Allergic/Immunologic ED: Denies lip swelling or urticaria EXAM Physical Exam Const Vital Signs: 01/26/24 12:38 01/26/24 14:37 01/26/24 16:00 Temperature 97.0 F L Temperature Source Temporal Pulse Rate 72 84 84 Respiratory Rate 18 20 H 16 Blood Pressure 169/124 H 143/85 H 150/87 H Blood Pressure Mean 139 104 108 Pulse Ox 100 98 98 Oxygen Delivery Method Room Air Room Air Room Air Positive well nourished and well developed General Appearance ED: well developed HEENT Reports moist mucous membranes Eyes EOMs intact bilaterally Chest Wall inspection of chest normal and palpation of chest normal Resp normal respiratory effort and clear to auscultation bilaterally Cardio regular rate and regular rhythm GI non-tender Palpation: soft Back/Spine General Back: CVA tenderness right Extremity normal to inspection Neuro oriented x3 and no sensory deficits noted Motor Exam: strength 5/5 throughout Psych mental status grossly normal Skin no rashes or lesions noted MDM MDM MDM Narrative Medical decision making narrative: IV line established. Patient given Dilaudid, Reglan, and Benadryl. IV fluids initiated. Labwork obtained to evaluate for leukocytosis, anemia, and electrolyte derangement. Urinalysis obtained to evaluate for infection/hematuria. CT abdomen pelvis with IV contrast will be obtained given his right flank pain with known right adrenal mass. History & Record Review Discussion w/independent historian: Patient Lab Data Attestation: I reviewed the patient's lab results. Labs: Laboratory Results - last 24 hr 01/26/24 01/26/24 01/26/24 13:05 15:30 15:55 WBC 11.0 RBC 5.17 Hgb 14.6 Hct 45.0 MCV 87.0 MCH 28.2 MCHC 32.4 RDW Std Deviation 52.3 H RDW Coeff of Florencio 16.3 H Plt Count 282 MPV 9.6 Immature Gran % (Auto) 0.600 Neut % (Auto) 77.4 H Lymph % (Auto) 12.4 L [place] % (Auto) 5.9 Eos % (Auto) 3.2 Baso % (Auto) 0.5 Absolute Neuts (auto) 8.5 H Absolute Lymphs (auto) 1.37 Nucleated RBC % 0 Sodium 132 L Potassium 4.1 Chloride 103 Carbon Dioxide 23.0 Anion Gap 6 BUN 12 Creatinine 1.06 Estim Creat Clear Calc 71.74 Est GFR (MDRD) Af Amer 90 Est GFR (MDRD) Non-Af 74 BUN/Creatinine Ratio 11.3 Glucose 95 Calcium 9.5 Total Bilirubin 0.40 Direct Bilirubin 0.15 AST 21 ALT 15 L Alkaline Phosphatase 53 Total Protein 7.3 Albumin 3.7 Globulin 3.6 Urine Color Cancelled Yellow Urine Clarity Cancelled Clear Urine pH Cancelled 7.0 Ur Specific [place] Cancelled 1.010 U Specif Grav (Refrac) Cancelled Urine Protein Cancelled 15 H Urine Glucose (UA) Cancelled Normal Urine Ketones Cancelled Negative Urine Occult Blood Cancelled 25 H Urine Nitrite Cancelled Negative Urine Bilirubin Cancelled Negative Urine Urobilinogen Cancelled Normal Ur Leukocyte Esterase Cancelled 25 H Urine RBC Cancelled 0-5 SEEN Urine WBC Cancelled 0-5 SEEN Ur Squamous Epith Cells Cancelled 0 SEEN Ur Transition Epith Cell Cancelled Ur Renal Epithelial Cell Cancelled Calcium Oxalate Crystal Cancelled Uric Acid Crystals Cancelled Triple Phos Crystals Cancelled Other Crystals Cancelled Amorphous Sediment Cancelled Urine Bacteria Cancelled 0 SEEN Hyaline Casts Cancelled Fine Granular Casts Cancelled Coarse Granular Casts Cancelled Waxy Casts Cancelled RBC Casts Cancelled WBC Casts Cancelled Urine Mucus Cancelled 0 SEEN Urine Trichomonas Cancelled Urine Yeast Cancelled Radiography Diagnostic Testing: Clinical Impression(s) from Imaging Studies Abdomen/Pelvis CT 01/26/24 12:48 IMPRESSION: No significant interval change in 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 Stable small cysts and complex lesions in the right kidney. Multiple left renal cysts, similar to prior. Moderate hiatal hernia with chronic gastric wall thickening. Colonic diverticulosis without acute diverticulitis. Unremarkable appendix. Cholecystectomy with chronic biliary ductal dilatation. Hepatic steatosis. Electronically Signed: Kendy Carrera MD at 14:41 EDT , Treatment and Re-Evaluation :: CBC was normal white count 11.0 the hemoglobin of 14.6. 77% neutrophils noted. Chemistry studies unremarkable with normal renal function. LFTs are normal. Urinalysis reveals no evidence of acute infection. No hematuria. CT scan of the abdomen and pelvis with IV contrast is obtained given his adrenal mass. There is no significant interval change when compared to August of last year. Moderate hiatal hernia is noted with chronic gastric wall thickening. Stable small cyst and complex lesions in the right kidney. Patient did have additional Phenergan and Dilaudid for continued pain and nausea after initial round of medications. Given continued symptoms he received a dose of Protonix, Haldol, Dilaudid. At this time symptoms are improved. Workup was reviewed with him and unremarkable. He is comfortable with discharge to home. I will write him Phenergan and Bentyl to have at home as needed. Return instructions provided. Discharge Plan Triage Chief Complaint: Flank Pain ED Provider: Patience Lane Dx/Rx/DC Orders Clinical Impression: Flank pain, Vomiting Instructions: ED Flank Pain, Uncertain Cause, ED Vomiting (Adult) Prescriptions: New promethazine 25 mg tablet 25 mg PO Q6H PRN (Reason: nausea and vomiting) Qty: 14 0RF dicyclomine 20 mg tablet 20 mg PO TID PRN (Reason: abdominal pain) Qty: 14 0RF No Action clopidogrel [Plavix] 75 mg tablet 75 mg PO DAILY metoprolol succinate 25 mg tablet extended release 24 hr 25 mg PO BID lansoprazole 15 mg capsule,delayed release(DR/EC) 15 mg PO DAILY nitroglycerin 0.4 mg tablet, sublingual 0.4 mg sublingual Q5M PRN Rx Instructions: do not exceed 3 doses per episode acetaminophen [Tylenol Extra Strength] 500 mg tablet 500 mg PO Q6H PRN alprazolam 1 mg tablet See Rx Instructions .ROUTE .COMPLEX Qty: 1 0RF Rx Instructions: Take 1 tablet orally 30 minutes prior to MRI atorvastatin 40 mg Tablet 40 mg PO DAILY citalopram 40 mg Tablet 40 mg PO DAILY trazodone 50 mg Tablet 75 mg PO DAILY meloxicam 15 mg Tablet 15 mg PO DAILY PRN (Reason: UNKNOWN) sucralfate 1 gram Tablet 1 g PO 4X/DAY lisinopril 20 mg Tablet 20 mg PO DAILY amlodipine 10 mg Tablet 10 mg PO DAILY aspirin 81 mg Tablet,Chewable 81 mg PO DAILY fenofibrate 120 mg Tablet 145 mg PO DAILY promethazine 25 mg tablet 25 mg PO Q6H PRN (Reason: nausea and vomiting) 7 Days Qty: 28 0RF promethazine 25 mg tablet 25 mg PO Q6H PRN (Reason: nausea and vomiting) Qty: 20 0RF dicyclomine 20 mg tablet 20 mg PO TID PRN (Reason: abdominal pain) Qty: 14 0RF Primary Care Provider: Care Physician,No Primary Referrals: Friend,Aiden, DO [Med Staff - Active Staff] - As Needed Care Physician,No Primary [Primary Care Provider] - Disposition Disposition: Home, Self Care
[2024-01-26] MEDS: 0.9% Normal Saline (1000mL) 1,000 ML 150 ML IV (13:07)
[2024-01-26] MEDS: HYDROmorphone 1 MG/ML Syringe 0.5 MG IV (13:08)
[2024-01-26] MEDS: DiphenhydrAMINE 50 MG/ML Syringe 12.5 MG IV (13:08)
[2024-01-26] MEDS: Metoclopramide 10 MG/2 ML Vial 5 MG IV (13:08)
[2024-01-26 13:18] LABS: Absolute Lymphocyte Count 1.37 X10^3/uL (0.83-4.51); Absolute Neutrophil Count 8.5 X10^3/uL (2.0-7.7); Basophil# 0.05 X10^3/uL; Basophil% 0.5 % (0-1); Eosinophil# 0.35 X10^3/uL; Eosinophils% 3.2 % (0-5); Hemoglobin 14.6 g/dL (13.0-16.5); Lymphocyte # 1.37 X10^3/ul (0.83-4.51); Lymphocyte % 12.4 % (19-41); Mean Corp Hgb Conc 32.4 g/dL (32-36); Mean Corpuscular Hgb 28.2 pg (27.0-32.0); Mean Platelet Vol. 9.6 fl (6.2-12.0); Monocyte# 0.65 X10^3/uL; Monocyte% 5.9 % (0-10); NRBC Flagged by Analyzer 0 % (0-5); Neutrophil # 8.54 X10^3/uL (2.7-7.7); Neutrophil % 77.4 % (47-70); Platelet Count 282 K/mm3 (150-450); RBC Distribution Width CV 16.3 % (11.6-14.6); RBC Distribution Width SD 52.3 fl (35.1-43.9); Red Blood Count 5.17 M/mm3 (4.6-6.2)
[2024-01-26 13:29] LABS: AST(SGOT) 21 U/L (15-37); Alanine Aminotransfer ALT/SGPT 15 U/L (16-61); Albumin, Serum 3.7 g/dL (3.2-5.0); Alkaline Phosphatase 53 U/L (45-117); Anion Gap 6 (5-15); BUN 12 mg/dL (7-18); BUN/Creat Ratio 11.3 RATIO (10-20); Bilirubin, Direct 0.15 mg/dL (0.00-0.30); Calcium,Total 9.5 mg/dL (8.5-10.1); Chloride 103 mmol/L (98-107); Creatinine, Serum 1.06 mg/dL (0.70-1.30); EST Glomerular Filtration Rate 74 mL/min (>60); Est Glom Filt Rate - Afr Amer 90 mL/min (>60); Estimated Creatinine Clearance 71.74 ml/min; Globulin 3.6 g/dL (2.2-4.2); Glucose 95 mg/dL (74-106); Potassium 4.1 mmol/L (3.5-5.1); Protein, Total 7.3 g/dL (6.4-8.2); Sodium Level 132 mmol/L (136-145)
[2024-01-26] MEDS: HYDROmorphone 0.5 MG/0.5 ML SYRINGE IV ×2 (14:21→16:10)
[2024-01-26] MEDS: Ketorolac 15 MG/ML Vial IV (14:21)
[2024-01-26] MEDS: proMETHazine 25 MG/ML Syringe 12.5 MG IM (14:27)
[2024-01-26 14:37] VITALS: BP 143/85; PULSE 84; RESP 20; O2SAT 98
[2024-01-26 16:00] VITALS: BP 150/87; PULSE 84; RESP 16; O2SAT 98
[2024-01-26 16:03] LABS: Bacteria 0 SEEN /hpf (None Seen); Mucous, Urine 0 SEEN /hpf (<or=2+); Squamous Epithelial Cells - UA 0 SEEN /hpf (0-5)
[2024-01-26] MEDS: Haloperidol Lactate 5 MG/ML Vial 2 MG IV (16:08)
[2024-01-26] MEDS: Pantoprazole Sodium 40 MG in 0.9% Normal Saline (100mL MB+) 100 ML 330 MG IV (16:10)
[2024-01-26 16:15] LABS: Color, Urine Yellow (Yellow); Glucose, Dipstick Normal (Normal); Ketone-Dipstick Negative (Negative); Leukocyte Esterase-Dipstick 25 /ul (Negative); Nitrite-Dipstick Negative (Negative); Occult Blood-Urine 25 /ul (Negative); Protein-Dipstick 15 mg/dl (Negative); Urine Bilirubin Dipstick Negative (Negative); Urine Clarity Clear (Clear); Urine Urobilinogen Normal (Normal)
[2024-01-26 16:40] LABS: Red Blood Cells-Urine 0-5 SEEN /hpf (0-5); White Blood Cells 0-5 SEEN /hpf (0-5)
[2024-01-26 17:10] VITALS: BP 142/78; PULSE 71; RESP 16; TEMP 36.8; O2SAT 99
== END 2024-01-26 17:16 | disposition home or self-care (01) ==
PROVIDERS: Emergency Provider Emergency Medicine; Visit Provider Emergency Medicine
DX: R10.9 Unspecified abdominal pain (principal); R11.10 Vomiting, unspecified; I25.2 Old myocardial infarction; F17.210 Nicotine dependence, cigarettes, uncomplicated
CPT/HCPCS: 74177; 80048; 80076; 81001; 85025; 96365; 96372; 96375; 96376; 99283; Q9967; A4216

== ENCOUNTER 2024-02-07 02:05 | Emergency (ER) | payer MEDICARE, SELFPAY ==
[2024-02-07 02:05] VITALS: BP 199/106; PULSE 92; RESP 18; TEMP 35.9; O2SAT 97
[2024-02-07 02:07] VITALS: BP 181/112; PULSE 85; RESP 14; TEMP 35.9; O2SAT 97; BMI 27.3
--- NOTE | 2024-02-07 02:14 | EKG12_ITS ---
Test Reason : ABD PAIN Blood Pressure : / mmHG Vent. Rate : 073 BPM Atrial Rate : 073 BPM P-R Int : 152 ms QRS Dur : 112 ms QT Int : 442 ms P-R-T Axes : 054 058 049 degrees QTc Int : 486 ms Sinus rhythm with marked sinus arrhythmia Nonspecific ST abnormality Prolonged QT Abnormal ECG Confirmed by Wai Katz ([id number]), writer editor JARROD BOUDREAUX ([id number]) on 02/11/2024 9:57:27 AM Referred By: Confirmed By:Wai Katz
--- NOTE | 2024-02-07 02:16 | EX.ED.DYSGE1 ---
HPI History of Present Illness Chief Complaint: Abd Pain Informant: patient Onset/Context/Timing Onset: Today Narrative Narrative: Patient presents with abdominal pain with nausea and vomiting that woke him from sleep this morning. He states he felt well when he went to sleep last night. He has a history of cyclic vomiting with similar symptoms. [facility] Medical History Right adrenal mass History of kidney stones History of seizure Cyclic vomiting syndrome Hiatal hernia Heart attack Home Medications ?Medication ?Instructions ?Recorded ?Last Taken ?Type amlodipine 10 mg tablet 10 mg PO DAILY 11/11/22 Unknown History aspirin 81 mg chewable tablet 81 mg PO DAILY 11/11/22 Unknown History atorvastatin 40 mg tablet 40 mg PO DAILY 11/11/22 Unknown History citalopram 40 mg tablet 40 mg PO DAILY 11/11/22 Unknown History fenofibrate 120 mg tablet 145 mg PO DAILY 11/11/22 Unknown History lisinopril 20 mg tablet 20 mg PO DAILY 11/11/22 Unknown History meloxicam 15 mg tablet 15 mg PO DAILY PRN UNKNOWN 11/11/22 Unknown History sucralfate 1 gram tablet 1 g PO 4X/DAY 11/11/22 Unknown History trazodone 50 mg tablet 75 mg PO DAILY 11/11/22 Unknown History promethazine 25 mg tablet 25 mg PO Q6H PRN nausea and 06/18/23 Unknown Rx vomiting 7 days #28 tabs acetaminophen 500 mg tablet 500 mg PO Q6H PRN 08/22/23 Unknown History (Tylenol Extra Strength) alprazolam 1 mg tablet See Rx Instructions .Route 08/22/23 Unknown Rx .COMPLEX #1 TAB clopidogrel 75 mg tablet (Plavix) 75 mg PO DAILY 08/22/23 Unknown History lansoprazole 15 mg capsule,delayed 15 mg PO DAILY 08/22/23 Unknown History release metoprolol succinate 25 mg 25 mg PO BID 08/22/23 Unknown History tablet,extended release 24 hr nitroglycerin 0.4 mg sublingual 0.4 mg sublingual Q5M PRN 08/22/23 Unknown History tablet dicyclomine 20 mg tablet 20 mg PO TID PRN abdominal pain 01/16/24 Unknown Rx #14 tabs promethazine 25 mg tablet 25 mg PO Q6H PRN nausea and 01/16/24 Unknown Rx vomiting #20 tabs dicyclomine 20 mg tablet 20 mg PO TID PRN abdominal pain 01/26/24 Unknown Rx #14 tabs promethazine 25 mg tablet 25 mg PO Q6H PRN nausea and 01/26/24 Unknown Rx vomiting #14 tabs dicyclomine 20 mg tablet 20 mg PO TID PRN abdominal 02/07/24 Unknown Rx cramping #14 tabs promethazine 25 mg tablet 25 mg PO Q6H PRN nausea and 02/07/24 Unknown Rx vomiting #14 tabs Allergy/AdvReac Type Severity Reaction Status Date / Time Penicillins (PCN) Allergy Severe Rash Verified 02/07/24 02:06 sertraline (From Zoloft) Allergy Severe Other Verified 02/07/24 02:06 nitrofurantoin (From AdvReac Severe Rash Verified 02/07/24 02:06 Macrobid) Surgical History History of repair of hiatal hernia History of cholecystectomy Social History Smoking Status: Current every day smoker tobacco type: cigarettes details: Denies alcohol use and history of pancreatitis substance use type: does not use ROS ROS ED Constitutional Constitutional ED: Denies chills or fever(s) Eyes Eyes: Denies discharge from eye(s) ENT ENT ED: Denies discharge from eye(s), rhinorrhea or sore throat Cardiovascular Cardiovascular: Denies chest pain Respiratory/Chest Respiratory/Chest: Denies cough or dyspnea Gastrointestinal Gastrointestinal: Reports abdominal pain, nausea and vomiting; Denies diarrhea Musculoskeletal Musculoskeletal: Denies back pain or extremity pain Integumentary Denies Abrasions or rash Neurologic Neurologic: Denies headache(s) or weakness Psychiatric Psychiatric: Reports anxiety; Denies depression Allergic/Immunologic Allergic/Immunologic ED: Denies lip swelling or urticaria EXAM Physical Exam Const Vital Signs: 02/07/24 02:05 02/07/24 02:07 02/07/24 04:05 Temperature 96.7 F L 96.7 F L Temperature Source Temporal Temporal Pulse Rate 92 85 77 Respiratory Rate 18 14 19 H Blood Pressure 199/106 H 181/112 H 177/86 H Blood Pressure Mean 137 135 116 Pulse Ox 97 97 95 Oxygen Delivery Method Room Air Room Air Room Air 02/07/24 05:33 Temperature Temperature Source Pulse Rate 87 Respiratory Rate 18 Blood Pressure 149/110 H Blood Pressure Mean 123 Pulse Ox 98 Oxygen Delivery Method Room Air Positive well nourished and well developed General Appearance ED: well developed HEENT Reports moist mucous membranes Eyes EOMs intact bilaterally Chest Wall inspection of chest normal and palpation of chest normal Resp normal respiratory effort and clear to auscultation bilaterally Cardio regular rate and regular rhythm GI GI Narrative: Abdomen soft with epigastric tenderness. No guarding or rebound. Hypoactive bowel sounds. Extremity normal to inspection Neuro oriented x3 and no sensory deficits noted Motor Exam: strength 5/5 throughout Psych Mood & Affect: anxious Skin no rashes or lesions noted MDM MDM MDM Narrative Medical decision making narrative: Patient placed on awake overnight monitor. EKG obtained to evaluate for cardiac arrhythmia/ischemia. IV line established. Patient has done well with Dilaudid, Protonix, and Haldol on recent visits. This combination is ordered again along with IV fluids. Labwork obtained to evaluate for leukocytosis, anemia, and electrolyte derangement. History & Record Review Discussion w/independent historian: Patient Additional record(s) reviewed:: Prior ED visit and Prior labs Lab Data Attestation: I reviewed the patient's lab results. Labs: Laboratory Results - last 24 hr 02/07/24 02:20 WBC 19.4 H RBC 4.83 Hgb 13.6 Hct 41.3 MCV 85.5 MCH 28.2 MCHC 32.9 RDW Std Deviation 50.3 H RDW Coeff of Flore[place]io 16.0 H Plt Count 433 MPV 9.7 Immature Gran % (Auto) 1.000 H Neut % (Auto) 80.7 H Lymph % (Auto) 10.9 L [place] % (Auto) 5.9 Eos % (Auto) 1.1 Baso % (Auto) 0.4 Absolute Neuts (auto) 15.7 H Absolute Lymphs (auto) 2.11 Nucleated RBC % 0 Sodium 131 L Potassium 4.2 Chloride 100 Carbon Dioxide 21.0 Anion Gap 10 BUN 17 Creatinine 1.07 Estim Creat Clear Calc 71.07 Est GFR (MDRD) Af Amer 89 Est GFR (MDRD) Non-Af 74 BUN/Creatinine Ratio 15.9 Glucose 107 H Calcium 9.6 Total Bilirubin 0.50 Direct Bilirubin 0.12 AST 31 ALT 19 Alkaline Phosphatase 66 Total Protein 7.7 Albumin 3.8 Globulin 3.9 Lipase 52 EKG Initial EKG: Attestation: I personally reviewed and interpreted this EKG as follows: Interpretation: Sinus Rhythm (Sinus rhythm at 73 bpm. No acute ischemia.) Treatment and Re-Evaluation :: CBC reveals a white count of 19.4 with 80% neutrophils. I believe this is likely demargination from his acute vomiting. Hemoglobin is 13.6. Chemistry studies reveal a sodium of 131 which is consistent with his last values. BUN is 17 and creatinine is 1.07. LFTs and lipase are normal. After initial round of medication patient started to get recurrent pain and nausea about half hour later. He received a dose of Phenergan and Dilaudid. Patient has been observed for an additional hour and a half and has had no further vomiting at this time. Patient's did call to check on him. She states that he has been smoking a lot over the past couple of days and is wondering if this may be a trigger. Patient be given a prescription for Phenergan and Bentyl which she has done well with in the past. His abdominal examination remains benign and I do not believe he needs imaging studies. Return instructions will be given. Addendum: Patient was up for discharge. When the nurse went to get him up he did vomit again. He is given a dose of Compazine and Benadryl. His presented to pick him up, however states she has to go to work for couple hours. She is not able to come back and pick him up for 3 to 4 hours. He will be observed here but I do anticipate he will still be discharged home. Discharge Plan Triage Chief Complaint: Abd Pain ED Provider: Patience Lane Dx/Rx/DC Orders Clinical Impression: Cyclic vomiting syndrome Instructions: ED Cyclic Vomiting Syndrome Prescriptions: New promethazine 25 mg tablet 25 mg PO Q6H PRN (Reason: nausea and vomiting) Qty: 14 0RF dicyclomine 20 mg tablet 20 mg PO TID PRN (Reason: abdominal cramping) Qty: 14 0RF No Action clopidogrel [Plavix] 75 mg tablet 75 mg PO DAILY metoprolol succinate 25 mg tablet extended release 24 hr 25 mg PO BID lansoprazole 15 mg capsule,delayed release(DR/EC) 15 mg PO DAILY nitroglycerin 0.4 mg tablet, sublingual 0.4 mg sublingual Q5M PRN Rx Instructions: do not exceed 3 doses per episode acetaminophen [Tylenol Extra Strength] 500 mg tablet 500 mg PO Q6H PRN alprazolam 1 mg tablet See Rx Instructions .ROUTE .COMPLEX Qty: 1 0RF Rx Instructions: Take 1 tablet orally 30 minutes prior to MRI atorvastatin 40 mg Tablet 40 mg PO DAILY citalopram 40 mg Tablet 40 mg PO DAILY trazodone 50 mg Tablet 75 mg PO DAILY meloxicam 15 mg Tablet 15 mg PO DAILY PRN (Reason: UNKNOWN) sucralfate 1 gram Tablet 1 g PO 4X/DAY lisinopril 20 mg Tablet 20 mg PO DAILY amlodipine 10 mg Tablet 10 mg PO DAILY aspirin 81 mg Tablet,Chewable 81 mg PO DAILY fenofibrate 120 mg Tablet 145 mg PO DAILY promethazine 25 mg tablet 25 mg PO Q6H PRN (Reason: nausea and vomiting) 7 Days Qty: 28 0RF promethazine 25 mg tablet 25 mg PO Q6H PRN (Reason: nausea and vomiting) Qty: 20 0RF dicyclomine 20 mg tablet 20 mg PO TID PRN (Reason: abdominal pain) Qty: 14 0RF promethazine 25 mg tablet 25 mg PO Q6H PRN (Reason: nausea and vomiting) Qty: 14 0RF dicyclomine 20 mg tablet 20 mg PO TID PRN (Reason: abdominal pain) Qty: 14 0RF Primary Care Provider: Care Physician,No Primary Referrals: Jose Fuller MD [Non-Staff] - As Needed Chris Burris MD [Med Staff - [employer]] - As Needed Care Physician,No Primary [Primary Care Provider] - Print Language: Georgian Disposition Disposition: Home, Self Care
[2024-02-07] MEDS: 0.9% Normal Saline (1000mL) 1,000 ML 1000 ML IV (02:26)
[2024-02-07] MEDS: Haloperidol Lactate 5 MG/ML Vial 2 MG IV (02:26)
[2024-02-07] MEDS: Pantoprazole Sodium 40 MG in 0.9% Normal Saline (100mL MB+) 100 ML 330 MG IV (02:26)
[2024-02-07 02:27] LABS: Absolute Lymphocyte Count 2.11 X10^3/uL (0.83-4.51); Absolute Neutrophil Count 15.7 X10^3/uL (2.0-7.7); Basophil# 0.07 X10^3/uL; Basophil% 0.4 % (0-1); Eosinophil# 0.21 X10^3/uL; Eosinophils% 1.1 % (0-5); Hematocrit 41.3 % (40-54); Hemoglobin 13.6 g/dL (13.0-16.5); Lymphocyte # 2.11 X10^3/ul (0.83-4.51); Lymphocyte % 10.9 % (19-41); Mean Corp Hgb Conc 32.9 g/dL (32-36); Mean Corpuscular Hgb 28.2 pg (27.0-32.0); Mean Corpuscular Volume 85.5 fL (80-94); Mean Platelet Vol. 9.7 fl (6.2-12.0); Monocyte# 1.15 X10^3/uL; Monocyte% 5.9 % (0-10); NRBC Flagged by Analyzer 0 % (0-5); Neutrophil # 15.68 X10^3/uL (2.7-7.7); Neutrophil % 80.7 % (47-70); Platelet Count 433 K/mm3 (150-450); RBC Distribution Width SD 50.3 fl (35.1-43.9); Red Blood Count 4.83 M/mm3 (4.6-6.2); White Blood Count 19.4 K/mm3 (4.4-11.0)
[2024-02-07] MEDS: HYDROmorphone 1 MG/ML Syringe 0.5 MG IV (02:27)
[2024-02-07 02:55] LABS: AST(SGOT) 31 U/L (15-37); Alanine Aminotransfer ALT/SGPT 19 U/L (16-61); Albumin, Serum 3.8 g/dL (3.2-5.0); Alkaline Phosphatase 66 U/L (45-117); Anion Gap 10 (5-15); BUN 17 mg/dL (7-18); BUN/Creat Ratio 15.9 RATIO (10-20); Bilirubin, Direct 0.12 mg/dL (0.00-0.30); Calcium,Total 9.6 mg/dL (8.5-10.1); Chloride 100 mmol/L (98-107); Creatinine, Serum 1.07 mg/dL (0.70-1.30); EST Glomerular Filtration Rate 74 mL/min (>60); Est Glom Filt Rate - Afr Amer 89 mL/min (>60); Estimated Creatinine Clearance 71.07 ml/min; Globulin 3.9 g/dL (2.2-4.2); Glucose 107 mg/dL (74-106); Lipase 52 U/L (13-75); Potassium 4.2 mmol/L (3.5-5.1); Protein, Total 7.7 g/dL (6.4-8.2); Sodium Level 131 mmol/L (136-145)
[2024-02-07] MEDS: 0.9% Normal Saline (1000mL) 1,000 ML 150 ML IV ×2 (02:58→07:38)
[2024-02-07] MEDS: proMETHazine 25 MG/ML Syringe 12.5 MG IM ×2 (03:20→07:40)
[2024-02-07] MEDS: HYDROmorphone 0.5 MG/0.5 ML SYRINGE IV (03:20)
[2024-02-07 04:05] VITALS: BP 177/86; PULSE 77; RESP 19; O2SAT 95
[2024-02-07] MEDS: DiphenhydrAMINE 50 MG/ML Syringe 25 MG IV (05:28)
[2024-02-07] MEDS: proCHLORPERazine 10 MG/2 ML Vial IV (05:28)
[2024-02-07 05:33] VITALS: BP 149/110; PULSE 87; RESP 18; O2SAT 98
[2024-02-07 07:00] VITALS: BP 167/83; PULSE 97; RESP 20; O2SAT 95
[2024-02-07 08:28] VITALS: BP 171/90; PULSE 85; RESP 18; TEMP 36.6; O2SAT 99
== END 2024-02-07 08:30 | disposition home or self-care (01) ==
PROVIDERS: Emergency Provider Emergency Medicine; Visit Provider Emergency Medicine
DX: R11.15 Cyclical vomiting syndrome unrelated to migraine (principal); F17.210 Nicotine dependence, cigarettes, uncomplicated; Z23 Encounter for immunization
CPT/HCPCS: 80048; 80076; 83690; 85025; 90471; 93005; 96361; 96365; 96375; 96376; 99284; J7030; A4216

== ENCOUNTER 2024-02-11 12:10 | Emergency (ER) | payer MEDICARE, SELFPAY ==
[2024-02-11 12:11] VITALS: BP 169/121; PULSE 90; RESP 22; TEMP 35.4; O2SAT 95; BMI 27.1
--- NOTE | 2024-02-11 13:08 | EDS_ITS ---
HPI <EMMA Funes - Last Filed: 02/11/24 19:51> History of Present Illness Chief Complaint: Nausea/Vomiting/Diarrhea Narrative Narrative: Patient presenting due to nausea and vomiting that started around 8:30 AM this morning. He reports that he has a history of cyclic vomiting syndrome, he is not exactly sure why he has this but certain foods will set it off. He ate citrus late at night last night and thinks that is the culprit. He reports having generalized abdominal pain and multiple episodes of loose stool since today. He reports that the symptoms are common with his cyclic vomiting. He denies any history of marijuana use. Denies fevers, chills, hematemesis, previous abdominal surgery, and urinary symptoms. [facility] <EMMA Funes - Last Filed: 02/11/24 19:51> [facility] Medical History Right adrenal mass History of kidney stones History of seizure Cyclic vomiting syndrome Hiatal hernia Heart attack Home Medications ?Medication ?Instructions ?Recorded ?Last Taken ?Type amlodipine 10 mg tablet 10 mg PO DAILY 11/11/22 Unknown History aspirin 81 mg chewable tablet 81 mg PO DAILY 11/11/22 Unknown History atorvastatin 40 mg tablet 40 mg PO DAILY 11/11/22 Unknown History citalopram 40 mg tablet 40 mg PO DAILY 11/11/22 Unknown History fenofibrate 120 mg tablet 145 mg PO DAILY 11/11/22 Unknown History lisinopril 20 mg tablet 20 mg PO DAILY 11/11/22 Unknown History meloxicam 15 mg tablet 15 mg PO DAILY PRN UNKNOWN 11/11/22 Unknown History sucralfate 1 gram tablet 1 g PO 4X/DAY 11/11/22 Unknown History trazodone 50 mg tablet 75 mg PO DAILY 11/11/22 Unknown History promethazine 25 mg tablet 25 mg PO Q6H PRN nausea and 06/18/23 Unknown Rx vomiting 7 days #28 tabs acetaminophen 500 mg tablet 500 mg PO Q6H PRN 08/22/23 Unknown History (Tylenol Extra Strength) alprazolam 1 mg tablet See Rx Instructions .Route 08/22/23 Unknown Rx .COMPLEX #1 TAB clopidogrel 75 mg tablet (Plavix) 75 mg PO DAILY 08/22/23 Unknown History lansoprazole 15 mg capsule,delayed 15 mg PO DAILY 08/22/23 Unknown History release metoprolol succinate 25 mg 25 mg PO BID 08/22/23 Unknown History tablet,extended release 24 hr nitroglycerin 0.4 mg sublingual 0.4 mg sublingual Q5M PRN 08/22/23 Unknown History tablet dicyclomine 20 mg tablet 20 mg PO TID PRN abdominal pain 01/16/24 Unknown Rx #14 tabs promethazine 25 mg tablet 25 mg PO Q6H PRN nausea and 01/16/24 Unknown Rx vomiting #20 tabs dicyclomine 20 mg tablet 20 mg PO TID PRN abdominal pain 01/26/24 Unknown Rx #14 tabs promethazine 25 mg tablet 25 mg PO Q6H PRN nausea and 01/26/24 Unknown Rx vomiting #14 tabs dicyclomine 20 mg tablet 20 mg PO TID PRN abdominal 02/07/24 Unknown Rx cramping #14 tabs promethazine 25 mg tablet 25 mg PO Q6H PRN nausea and 02/07/24 Unknown Rx vomiting #14 tabs Allergy/AdvReac Type Severity Reaction Status Date / Time Penicillins (PCN) Allergy Severe Rash Verified 02/11/24 12:10 sertraline (From Zoloft) Allergy Severe Other Verified 02/11/24 12:10 nitrofurantoin (From AdvReac Severe Rash Verified 02/11/24 12:10 Macrobid) Surgical History History of repair of hiatal hernia History of cholecystectomy Social History Smoking Status: Current every day smoker tobacco type: cigars details: Denies alcohol use and history of pancreatitis substance use type: does not use ROS <EMMA Funes - Last Filed: 02/11/24 19:51> ROS ED Constitutional Constitutional ED: Denies chills or fever(s) Cardiovascular Cardiovascular: Denies chest pain Respiratory/Chest Respiratory/Chest: Denies dyspnea Gastrointestinal Gastrointestinal: Reports abdominal pain, diarrhea, nausea and vomiting; Denies constipation or melena Genitourinary Genitourinary ED: Denies dysuria, hematuria or urinary urgency Musculoskeletal Musculoskeletal: Denies arthralgias or myalgias Integumentary Denies rash Neurologic Neurologic: Denies weakness EXAM <EMMA Funes - Last Filed: 02/11/24 19:51> Physical Exam Const Vital Signs: 02/11/24 12:11 02/11/24 14:10 02/11/24 15:15 Temperature 95.8 F L Temperature Source Temporal Pulse Rate 90 93 82 Respiratory Rate 22 H 18 16 Blood Pressure 169/121 H 153/71 H Blood Pressure Mean 137 98 Pulse Ox 95 98 95 Oxygen Delivery Method Room Air Room Air Room Air Positive well nourished, well developed and no apparent distress General Appearance ED: well developed HEENT Reports normocephalic and head/scalp atraumatic Mouth ED: Yes moist mucous membranes normal Eyes PERRL and EOMs intact bilaterally Neck full ROM and supple Chest Wall inspection of chest normal Resp normal respiratory effort and clear to auscultation bilaterally Cardio regular rate and regular rhythm GI soft to palpation, non-distended and no masses GI Narrative: Minimal generalized tenderness to palpation, no rigidity or guarding. Back/Spine normal ROM and normal to inspection Extremity normal to inspection and full ROM Neuro oriented x3, CN's II-XII intact bilaterally, moves all extremities, no focal motor deficits and no sensory deficits noted Sensorium / Orientation: awake and alert Psych mental status grossly normal and thought process normal Skin no rashes or lesions noted and no wounds <Dr. Con Landeros MD - Last Filed: 02/11/24 14:36> Physical Exam Const Vital Signs: 02/11/24 12:11 02/11/24 14:10 02/11/24 15:15 Temperature 95.8 F L Temperature Source Temporal Pulse Rate 90 93 82 Respiratory Rate 22 H 18 16 Blood Pressure 169/121 H 153/71 H Blood Pressure Mean 137 98 Pulse Ox 95 98 95 Oxygen Delivery Method Room Air Room Air Room Air MDM <EMMA Funes - Last Filed: 02/11/24 19:51> [facility] Narrative Medical decision making narrative: Patient presenting with vomiting that started this morning. History of cyclic vomiting. He has been here multiple times in the past for this. He has had multiple CT scans of the abdomen and pelvis over the last year, I do not feel that imaging is indicated at this time. He was given IV fluids, Zofran, and Benadryl. He was also given IM Haldol. He does have leukocytosis, however this is consistent with his previous labs. CMP and lipase unremarkable. On reexamination patient is complaining of pain, he was given IV morphine. He was observed for period of time and began to complain of nausea again, he was given a dose of Reglan and on reexamination reports improvement of his pain and nausea. He is tolerating p.o. fluids. He does have Phenergan and Bentyl at home that he can take. I will give him a GI referral and he will be discharged home in stable condition. I have personally performed a face to face assessment of the patient and have reviewed the [facility] Note. I performed a substantive portion of the visit including all aspects of the following. My interiano findings include: History is 63-year-old male history of cyclic vomiting syndrome of uncertain cause. Reportedly states he does not use marijuana. He has had a prior cholecystectomy. He never had a bowel obstruction. States this morning he started having nausea and vomiting abdominal cramping. He did have a bowel movement yesterday. Denies any fever or dysuria. He had this worked up multiple times has had numerous CAT scans in the last year and a half. All of which have been unremarkable. Exam is 63-year-old male vital signs stable with blood pressure elevated 169/121. H EENT exam unremarkable. Neck nontender. Lungs clear to auscultation bilaterally. Heart regular rhythm rate about 90 no murmur. Abdomen nondistended normal bowel sounds no peritoneal signs. No localizing tenderness. No hernia or mass. No obvious obstruction. Soft with positive bowel sounds. No pulsatile mass. Moving all 4 extremities. Nontender no edema. Neurologically is awake alert no focal motor deficits.] Medical Decision Making [63-year-old male with cyclic vomiting. Treated with IV fluids, screening labs, Zofran, Haldol and Benadryl. He was reassessed and will be given a little bit of morphine for pain. He has had numerous CAT scans over the last 12 to 18 months. They have been unremarkable. I do not think he needs reimaged today. He consistently has an elevated white count he presents with this.] Other additions or changes: [None] Lab Data Labs: Laboratory Results - last 24 hr 02/11/24 13:13 WBC 15.5 H RBC 5.04 Hgb 14.1 Hct 43.9 MCV 87.1 MCH 28.0 MCHC 32.1 RDW Std Deviation 50.4 H RDW Coeff of Florencio 15.9 H Plt Count 464 H MPV 9.7 Immature Gran % (Auto) 0.600 Neut % (Auto) 90.0 H Lymph % (Auto) 6.5 L Bailey % (Auto) 2.4 Eos % (Auto) 0.1 Baso % (Auto) 0.4 Absolute Neuts (auto) 14.0 H Absolute Lymphs (auto) 1.00 Nucleated RBC % 0 Sodium 140 Potassium 3.6 Chloride 109 H Carbon Dioxide 23.0 Anion Gap 8 BUN 14 Creatinine 1.20 Estim Creat Clear Calc 63.37 Est GFR (MDRD) Af Amer 78 Est GFR (MDRD) Non-Af 64 BUN/Creatinine Ratio 11.7 Glucose 150 H Calcium 9.4 Total Bilirubin 0.40 AST 21 ALT 18 Alkaline Phosphatase 59 Total Protein 7.7 Albumin 3.9 Globulin 3.8 Albumin/Globulin Ratio 1.0 Lipase 43 <Dr. Con Landeros MD - Last Filed: 02/11/24 14:36> [facility] Narrative Medical decision making narrative: Patient presenting with vomiting that started this morning. History of cyclic vomiting. He has been here multiple times in the past for this. He was given IV fluids, Zofran, and Benadryl. He was also given IM Haldol. I have personally performed a face to face assessment of the patient and have reviewed the [facility] Note. I performed a substantive portion of the visit including all aspects of the following. My interiano findings include: History is 63-year-old male history of cyclic vomiting syndrome of uncertain cause. Reportedly states he does not use marijuana. He has had a prior cholecystectomy. He never had a bowel obstruction. States this morning he started having nausea and vomiting abdominal cramping. He did have a bowel movement yesterday. Denies any fever or dysuria. He had this worked up multiple times has had numerous CAT scans in the last year and a half. All of which have been unremarkable. Exam is 63-year-old male vital signs stable with blood pressure elevated 169/121. H EENT exam unremarkable. Neck nontender. Lungs clear to auscultation bilaterally. Heart regular rhythm rate about 90 no murmur. Abdomen nondistended normal bowel sounds no peritoneal signs. No localizing tenderness. No hernia or mass. No obvious obstruction. Soft with positive bowel sounds. No pulsatile mass. Moving all 4 extremities. Nontender no edema. Neurologically is awake alert no focal motor deficits.] Medical Decision Making [63-year-old male with cyclic vomiting. Treated with IV fluids, screening labs, Zofran, Haldol and Benadryl. He was reassessed and will be given a little bit of morphine for pain. He has had numerous CAT scans over the last 12 to 18 months. They have been unremarkable. I do not think he needs reimaged today. He consistently has an elevated white count he presents with this.] Other additions or changes: [None] Lab Data Attestation: I reviewed the patient's lab results. Lab results narrative: CBC shows a white count of 15.5. H&H of 14 and 43. Platelets 464. Electrolytes unremarkable gap 8. Normal BUN of 14 creatinine 1.2. Glucose 150. Liver enzymes normal. Lipase normal at 43. Labs: Laboratory Results - last 24 hr 02/11/24 13:13 WBC 15.5 H RBC 5.04 Hgb 14.1 Hct 43.9 MCV 87.1 MCH 28.0 MCHC 32.1 RDW Std Deviation 50.4 H RDW Coeff of Florencio 15.9 H Plt Count 464 H MPV 9.7 Immature Gran % (Auto) 0.600 Neut % (Auto) 90.0 H Lymph % (Auto) 6.5 L Bailey % (Auto) 2.4 Eos % (Auto) 0.1 Baso % (Auto) 0.4 Absolute Neuts (auto) 14.0 H Absolute Lymphs (auto) 1.00 Nucleated RBC % 0 Sodium 140 Potassium 3.6 Chloride 109 H Carbon Dioxide 23.0 Anion Gap 8 BUN 14 Creatinine 1.20 Estim Creat Clear Calc 63.37 Est GFR (MDRD) Af Amer 78 Est GFR (MDRD) Non-Af 64 BUN/Creatinine Ratio 11.7 Glucose 150 H Calcium 9.4 Total Bilirubin 0.40 AST 21 ALT 18 Alkaline Phosphatase 59 Total Protein 7.7 Albumin 3.9 Globulin 3.8 Albumin/Globulin Ratio 1.0 Lipase 43 Discharge Plan Triage Chief Complaint: Nausea/Vomiting/Diarrhea ED Midlevel Provider: Kristel Law ED Provider: Con Landeros Dx/Rx/DC Orders Clinical Impression: Nausea & vomiting, Abdominal pain Instructions: ED Vomiting (Adult) Prescriptions: No Action clopidogrel [Plavix] 75 mg tablet 75 mg PO DAILY metoprolol succinate 25 mg tablet extended release 24 hr 25 mg PO BID lansoprazole 15 mg capsule,delayed release(DR/EC) 15 mg PO DAILY nitroglycerin 0.4 mg tablet, sublingual 0.4 mg sublingual Q5M PRN Rx Instructions: do not exceed 3 doses per episode acetaminophen [Tylenol Extra Strength] 500 mg tablet 500 mg PO Q6H PRN alprazolam 1 mg tablet See Rx Instructions .ROUTE .COMPLEX Qty: 1 0RF Rx Instructions: Take 1 tablet orally 30 minutes prior to MRI atorvastatin 40 mg Tablet 40 mg PO DAILY citalopram 40 mg Tablet 40 mg PO DAILY trazodone 50 mg Tablet 75 mg PO DAILY meloxicam 15 mg Tablet 15 mg PO DAILY PRN (Reason: UNKNOWN) sucralfate 1 gram Tablet 1 g PO 4X/DAY lisinopril 20 mg Tablet 20 mg PO DAILY amlodipine 10 mg Tablet 10 mg PO DAILY aspirin 81 mg Tablet,Chewable 81 mg PO DAILY fenofibrate 120 mg Tablet 145 mg PO DAILY promethazine 25 mg tablet 25 mg PO Q6H PRN (Reason: nausea and vomiting) 7 Days Qty: 28 0RF promethazine 25 mg tablet 25 mg PO Q6H PRN (Reason: nausea and vomiting) Qty: 20 0RF dicyclomine 20 mg tablet 20 mg PO TID PRN (Reason: abdominal pain) Qty: 14 0RF promethazine 25 mg tablet 25 mg PO Q6H PRN (Reason: nausea and vomiting) Qty: 14 0RF dicyclomine 20 mg tablet 20 mg PO TID PRN (Reason: abdominal cramping) Qty: 14 0RF promethazine 25 mg tablet 25 mg PO Q6H PRN (Reason: nausea and vomiting) Qty: 14 0RF dicyclomine 20 mg tablet 20 mg PO TID PRN (Reason: abdominal pain) Qty: 14 0RF Primary Care Provider: Care Physician,No Primary Referrals: Friend,Aiden, DO [Med Staff - Active Staff] - 1 Week Care Physician,No Primary [Primary Care Provider] - Activity Restrictions/Additional Instructions: Please follow-up with GI and return for any worsening of your symptoms. Print Language: Telugu Disposition Disposition: Home, Self Care Discharge Date/Time: 02/11/24 17:13
[2024-02-11] MEDS: 0.9% Normal Saline (1000mL) 1,000 ML 999 ML IV (13:25)
[2024-02-11] MEDS: Ondansetron 4 MG/2 ML Vial IV ×2 (13:25→14:39)
[2024-02-11] MEDS: Haloperidol Lactate 5 MG/ML Vial IM (13:25)
[2024-02-11] MEDS: DiphenhydrAMINE 50 MG/ML Syringe 25 MG IV (13:25)
[2024-02-11 13:28] LABS: Basophil# 0.06 X10^3/uL; Basophil% 0.4 % (0-1); Eosinophil# 0.02 X10^3/uL; Eosinophils% 0.1 % (0-5); Hematocrit 43.9 % (40-54); Hemoglobin 14.1 g/dL (13.0-16.5); Lymphocyte % 6.5 % (19-41); Mean Corp Hgb Conc 32.1 g/dL (32-36); Mean Corpuscular Volume 87.1 fL (80-94); Mean Platelet Vol. 9.7 fl (6.2-12.0); Monocyte# 0.37 X10^3/uL; Monocyte% 2.4 % (0-10); NRBC Flagged by Analyzer 0 % (0-5); Neutrophil # 13.95 X10^3/uL (2.7-7.7); Platelet Count 464 K/mm3 (150-450); RBC Distribution Width CV 15.9 % (11.6-14.6); RBC Distribution Width SD 50.4 fl (35.1-43.9); Red Blood Count 5.04 M/mm3 (4.6-6.2); White Blood Count 15.5 K/mm3 (4.4-11.0)
[2024-02-11 13:43] LABS: AST(SGOT) 21 U/L (15-37); Alanine Aminotransfer ALT/SGPT 18 U/L (16-61); Albumin, Serum 3.9 g/dL (3.2-5.0); Alkaline Phosphatase 59 U/L (45-117); Anion Gap 8 (5-15); BUN 14 mg/dL (7-18); BUN/Creat Ratio 11.7 RATIO (10-20); Calcium,Total 9.4 mg/dL (8.5-10.1); Chloride 109 mmol/L (98-107); EST Glomerular Filtration Rate 64 mL/min (>60); Est Glom Filt Rate - Afr Amer 78 mL/min (>60); Estimated Creatinine Clearance 63.37 ml/min; Globulin 3.8 g/dL (2.2-4.2); Glucose 150 mg/dL (74-106); Lipase 43 U/L (13-75); Potassium 3.6 mmol/L (3.5-5.1); Protein, Total 7.7 g/dL (6.4-8.2); Sodium Level 140 mmol/L (136-145)
[2024-02-11 14:10] VITALS: PULSE 93; RESP 18; O2SAT 98
[2024-02-11] MEDS: morphine 8 MG/ML Syringe 6 MG IV (14:39)
[2024-02-11 15:15] VITALS: BP 153/71; PULSE 82; RESP 16; O2SAT 95
[2024-02-11] MEDS: Famotidine 200 MG/20 ML MDV 20 MG in 0.9% Normal Saline (Pres. free 8 ML 300 MG IV (16:19)
[2024-02-11] MEDS: Metoclopramide 10 MG/2 ML Vial 5 MG IV (16:46)
== END 2024-02-11 17:13 | disposition home or self-care (01) ==
PROVIDERS: Physician Assistant; Emergency Provider Emergency Medicine; Visit Provider Emergency Medicine
DX: R11.2 Nausea with vomiting, unspecified (principal); R10.9 Unspecified abdominal pain; R19.7 Diarrhea, unspecified; I25.2 Old myocardial infarction; F17.290 Nicotine dependence, other tobacco product, uncomplicated
CPT/HCPCS: 80053; 83690; 85025; 96361; 96365; 96372; 96375; 96376; 99283; J7030; A4216; J2405; J3490

== ENCOUNTER 2024-02-15 13:00 | Emergency (ER) | payer MEDICARE, SELFPAY ==
[2024-02-15 13:01] VITALS: BP 178/121; PULSE 99; RESP 18; TEMP 36.4; O2SAT 98; BMI 27.2
--- NOTE | 2024-02-15 13:10 | EDS_ITS ---
HPI <LINDA Caballero - Last Filed: 02/15/24 15:26> History of Present Illness Chief Complaint: Nausea/Vomiting Narrative Narrative: Patient is a 63-year-old male with history of CAD, hypertension, cyclic vomiting syndrome, who presents to the emerged department with ongoing abdominal pain, nausea and vomiting. Patient was seen here 4 days ago, he was given IV Zofran, Benadryl, Reglan, then dosed with morphine, he was able to be discharged. Patient states that he was feeling better, he smoked ham and cheese last evening, and states this could have set off his cyclic vomiting. Patient states it does happen from time to time. He denies any history of alcohol use or marijuana. He denies any fever or chills. Patient states that this is what his cyclic vomiting usually looks like. [facility] <LINDA Caballero - Last Filed: 02/15/24 15:26> [facility] Medical History Right adrenal mass History of kidney stones History of seizure Cyclic vomiting syndrome Hiatal hernia Heart attack Home Medications ?Medication ?Instructions ?Recorded ?Last Taken ?Type amlodipine 10 mg tablet 10 mg PO DAILY 11/11/22 Unknown History aspirin 81 mg chewable tablet 81 mg PO DAILY 11/11/22 Unknown History atorvastatin 40 mg tablet 40 mg PO DAILY 11/11/22 Unknown History citalopram 40 mg tablet 40 mg PO DAILY 11/11/22 Unknown History fenofibrate 120 mg tablet 145 mg PO DAILY 11/11/22 Unknown History lisinopril 20 mg tablet 20 mg PO DAILY 11/11/22 Unknown History meloxicam 15 mg tablet 15 mg PO DAILY PRN UNKNOWN 11/11/22 Unknown History sucralfate 1 gram tablet 1 g PO 4X/DAY 11/11/22 Unknown History trazodone 50 mg tablet 75 mg PO DAILY 11/11/22 Unknown History promethazine 25 mg tablet 25 mg PO Q6H PRN nausea and 06/18/23 Unknown Rx vomiting 7 days #28 tabs acetaminophen 500 mg tablet 500 mg PO Q6H PRN 08/22/23 Unknown History (Tylenol Extra Strength) alprazolam 1 mg tablet See Rx Instructions .Route 08/22/23 Unknown Rx .COMPLEX #1 TAB clopidogrel 75 mg tablet (Plavix) 75 mg PO DAILY 08/22/23 Unknown History lansoprazole 15 mg capsule,delayed 15 mg PO DAILY 08/22/23 Unknown History release metoprolol succinate 25 mg 25 mg PO BID 08/22/23 Unknown History tablet,extended release 24 hr nitroglycerin 0.4 mg sublingual 0.4 mg sublingual Q5M PRN 08/22/23 Unknown History tablet dicyclomine 20 mg tablet 20 mg PO TID PRN abdominal pain 01/16/24 Unknown Rx #14 tabs promethazine 25 mg tablet 25 mg PO Q6H PRN nausea and 01/16/24 Unknown Rx vomiting #20 tabs dicyclomine 20 mg tablet 20 mg PO TID PRN abdominal pain 01/26/24 Unknown Rx #14 tabs promethazine 25 mg tablet 25 mg PO Q6H PRN nausea and 01/26/24 Unknown Rx vomiting #14 tabs dicyclomine 20 mg tablet 20 mg PO TID PRN abdominal 02/07/24 Unknown Rx cramping #14 tabs promethazine 25 mg tablet 25 mg PO Q6H PRN nausea and 02/07/24 Unknown Rx vomiting #14 tabs Allergy/AdvReac Type Severity Reaction Status Date / Time Penicillins (PCN) Allergy Severe Rash Verified 02/11/24 12:10 sertraline (From Zoloft) Allergy Severe Other Verified 02/11/24 12:10 nitrofurantoin (From AdvReac Severe Rash Verified 02/11/24 12:10 Macrobid) Surgical History History of repair of hiatal hernia History of cholecystectomy Social History Smoking Status: Current every day smoker tobacco type: cigars details: Denies alcohol use and history of pancreatitis substance use type: does not use ROS <LINDA Caballero - Last Filed: 02/15/24 15:26> ROS ED ROS Narrative Constitutional: Negative for fever, chills, weight loss, weakness Eyes: Negative for vision loss, vision change, double vision ENT: Negative for any sore throat, ear pain, congestion Cardiovascular: Negative for any chest pain, tightness, palpitations Respiratory: Negative for any cough, sputum production, hemoptysis, dyspnea, dyspnea on exertion, orthopnea Gastrointestinal: Negative for any diarrhea, constipation, blood in stool, blood in vomit. Positive for abdominal pain, nausea and vomiting : Negative for any urinary frequency, dysuria, retention, blood in urine Muscle skeletal: Negative for any neck pain, back pain Neurological: Negative for any headache, syncope, dizziness Skin: Negative for any rashes, itching, abrasions, lacerations Psychiatric: Negative for any depression, anxiety, stress, suicidal ideation, homicidal ideation Hematologic: Negative for any excessive bruising, easy bleeding EXAM <LINDA Caballero - Last Filed: 02/15/24 15:26> Physical Exam Narrative Exam Narrative: Vital signs reviewed. Patient appears to be in minor distress secondary to vomiting, patient slightly diaphoretic HEET: Head normocephalic atraumatic, TMs clear bilaterally. Posterior pharynx is clear, moist mucous membranes. Nares clear bilaterally. Neck: Supple with no lymphadenopathy or tenderness. No signs of meningismus. Cardiac: Regular rate and rhythm no murmurs gallops or rubs, equal peripheral pulses bilaterally. Respiratory: Lungs clear to auscultation bilaterally. No chest tenderness. Abdomen: Soft, nondistended. No abdominal bruit or pulsatile masses. No hepatosplenomegaly. Patient's abdomen is soft, patient pain on proportion with any light touching of his abdomen. Active bowel sounds in all quadrants. Extremities: No peripheral edema, no signs of gross trauma or deformity. Active full range of motion of all extremities. Neuro: Cranial nerves II through XII intact, no focal neurological deficits. Skin: Clean dry and intact with no rash, purpura, petechiae, vesicles or pustules. Backs/flank: No CVA tenderness, no midline spinal tenderness, no deformity. Psych: Normal mood and affect. No SI, HI or acute psychosis. Const Vital Signs: 02/15/24 13:01 02/15/24 15:00 02/15/24 15:39 Temperature 97.6 F L 98.3 F Temperature Source Temporal Pulse Rate 99 106 H 101 H Respiratory Rate 18 20 H 16 Blood Pressure 178/121 H 106/73 106/91 H Blood Pressure Mean 140 84 96 Pulse Ox 98 91 94 Oxygen Delivery Method Room Air Room Air <Dr. Dewey Kam MD - Last Filed: 02/15/24 16:31> Physical Exam Const Vital Signs: 02/15/24 13:01 02/15/24 15:00 02/15/24 15:39 Temperature 97.6 F L 98.3 F Temperature Source Temporal Pulse Rate 99 106 H 101 H Respiratory Rate 18 20 H 16 Blood Pressure 178/121 H 106/73 106/91 H Blood Pressure Mean 140 84 96 Pulse Ox 98 91 94 Oxygen Delivery Method Room Air Room Air [facility] <LINDA Caballero - Last Filed: 02/15/24 15:26> [facility] Lab Data Labs: Laboratory Results - last 24 hr 02/15/24 13:15 WBC 20.6 H RBC 5.19 Hgb 14.7 Hct 45.1 MCV 86.9 MCH 28.3 MCHC 32.6 RDW Std Deviation 49.8 H RDW Coeff of Florencio 15.6 H Plt Count 427 MPV 10.1 Immature Gran % (Auto) 0.600 Neut % (Auto) 90.5 H Lymph % (Auto) 5.5 L Smyth % (Auto) 3.0 Eos % (Auto) 0.1 Baso % (Auto) 0.3 Absolute Neuts (auto) 18.6 H Absolute Lymphs (auto) 1.14 Nucleated RBC % 0 Sodium 141 Potassium 3.3 L Chloride 110 H Carbon Dioxide 19.0 L Anion Gap 12 BUN 16 Creatinine 1.12 Estim Creat Clear Calc 67.89 Est GFR (MDRD) Af Amer 84 Est GFR (MDRD) Non-Af 70 BUN/Creatinine Ratio 14.3 Glucose 149 H Calcium 9.7 Total Bilirubin 0.40 AST 16 ALT 18 Alkaline Phosphatase 66 Total Protein 7.6 Albumin 4.0 Globulin 3.6 Albumin/Globulin Ratio 1.1 Lipase 44 Treatment and Re-Evaluation :: Differential diagnosis includes however is not limited to: Cyclic vomiting syndrome, bowel obstruction, GI viral syndrome Patient appears to be in no obvious respiratory distress, patient is diaphoretic, this is secondary to vomiting. Patient presents to the emergency department with nausea and vomiting, history of cyclic vomiting syndrome. Patient's physical examination did not yield any red flag signs. Patient was given IV fluids, Reglan, IM Bentyl. Patient be reevaluated. I do not believe any imaging is necessary as this is a chronic problem. On reevaluation, the patient was still having pain, he did request pain medicine several times. Patient will be redosed with Benadryl Pepcid Zofran, this is in the cyclic vomiting order set. Patient's CBC shows a leukocytosis at 20.6, this seems to be baseline as the patient is rarely under 13, patient's chemistries show a creatinine of 1.2, anion gap of 12, CO2 19, lipase was negative. Patient will receive the medications. On reevaluation, the patient was feeling much better. The patient states his pain has decreased substantially. At this time, I do believe the patient can be discharged home. I spoke with the patient regarding his pain medicine, that this is not the treatment for cyclic vomiting syndrome. Patient will again be referred to GI. He does have home medication such as Bentyl and Reglan at home. He is instructed to return for any worsening symptoms. All questions were answered, patient stable for discharge. <Dr. Dewey Kam MD - Last Filed: 02/15/24 16:31> [facility] Narrative Medical decision making narrative: I have personally performed a face to face assessment of the patient and have reviewed the FRANCA Note. I performed a substantive portion of the visit including all aspects of the following. My interiano findings include: History is remarkable for cyclic vomiting. Patient was seen on February 10 for abdominal pain with vomiting. He was seen on February 06 for cyclic vomiting. He was seen January 25 for flank pain. January 15 he was seen for vomiting again. Patient demanded pain medicine as I entered the room to obtain history and physical. Patient denies marijuana use. Patient denies fever, chills night sweats. Patient denies headache, visual, ocular auditory symptoms. Patient does complain of abdominal pain. Exam is patient's blood pressure is noted to be elevated. He appears uncomfortable. He was actively vomiting as I entered the room. HEENT exam is unremarkable. Lungs are clear to auscultation. Heart is regular. Rate is normal. Patient reports significant pain to palpation of his abdomen. Bowel sounds are diminished. There is no peritoneal findings. Medical Decision Making will hydrate, treat with antiemetic (will initiate cyclic vomiting order set) Other additions or changes: Patient's pain and symptoms resolved with cyclic vomiting cocktail. History & Record Review Additional record(s) reviewed:: Prior inpatient record and Prior ED visit (Documented in the attending note.) Lab Data Attestation: I reviewed the patient's lab results. Lab results narrative: Patient white count is elevated. He has been elevated in the past. This does show demargination could be due to stress from nausea and vomiting. BUN and creatinine are normal at 16 and 1.19. CO2 anion gap is normal. Lipase and transaminases are normal. Labs: Laboratory Results - last 24 hr 02/15/24 13:15 WBC 20.6 H RBC 5.19 Hgb 14.7 Hct 45.1 MCV 86.9 MCH 28.3 MCHC 32.6 RDW Std Deviation 49.8 H RDW Coeff of Florencio 15.6 H Plt Count 427 MPV 10.1 Immature Gran % (Auto) 0.600 Neut % (Auto) 90.5 H Lymph % (Auto) 5.5 L Smyth % (Auto) 3.0 Eos % (Auto) 0.1 Baso % (Auto) 0.3 Absolute Neuts (auto) 18.6 H Absolute Lymphs (auto) 1.14 Nucleated RBC % 0 Sodium 141 Potassium 3.3 L Chloride 110 H Carbon Dioxide 19.0 L Anion Gap 12 BUN 16 Creatinine 1.12 Estim Creat Clear Calc 67.89 Est GFR (MDRD) Af Amer 84 Est GFR (MDRD) Non-Af 70 BUN/Creatinine Ratio 14.3 Glucose 149 H Calcium 9.7 Total Bilirubin 0.40 AST 16 ALT 18 Alkaline Phosphatase 66 Total Protein 7.6 Albumin 4.0 Globulin 3.6 Albumin/Globulin Ratio 1.1 Lipase 44 Discharge Plan Triage Chief Complaint: Nausea/Vomiting ED Midlevel Provider: Trey Ritchie ED Provider: Dewey Kam Dx/Rx/DC Orders Clinical Impression: Cyclic vomiting syndrome, Mild cognitive impairment, B12 nutritional deficiency, Acute generalized abdominal pain Instructions: ED Cyclic Vomiting Syndrome Prescriptions: No Action clopidogrel [Plavix] 75 mg tablet 75 mg PO DAILY metoprolol succinate 25 mg tablet extended release 24 hr 25 mg PO BID lansoprazole 15 mg capsule,delayed release(DR/EC) 15 mg PO DAILY nitroglycerin 0.4 mg tablet, sublingual 0.4 mg sublingual Q5M PRN Rx Instructions: do not exceed 3 doses per episode acetaminophen [Tylenol Extra Strength] 500 mg tablet 500 mg PO Q6H PRN alprazolam 1 mg tablet See Rx Instructions .ROUTE .COMPLEX Qty: 1 0RF Rx Instructions: Take 1 tablet orally 30 minutes prior to MRI atorvastatin 40 mg Tablet 40 mg PO DAILY citalopram 40 mg Tablet 40 mg PO DAILY trazodone 50 mg Tablet 75 mg PO DAILY meloxicam 15 mg Tablet 15 mg PO DAILY PRN (Reason: UNKNOWN) sucralfate 1 gram Tablet 1 g PO 4X/DAY lisinopril 20 mg Tablet 20 mg PO DAILY amlodipine 10 mg Tablet 10 mg PO DAILY aspirin 81 mg Tablet,Chewable 81 mg PO DAILY fenofibrate 120 mg Tablet 145 mg PO DAILY promethazine 25 mg tablet 25 mg PO Q6H PRN (Reason: nausea and vomiting) 7 Days Qty: 28 0RF promethazine 25 mg tablet 25 mg PO Q6H PRN (Reason: nausea and vomiting) Qty: 20 0RF dicyclomine 20 mg tablet 20 mg PO TID PRN (Reason: abdominal pain) Qty: 14 0RF promethazine 25 mg tablet 25 mg PO Q6H PRN (Reason: nausea and vomiting) Qty: 14 0RF dicyclomine 20 mg tablet 20 mg PO TID PRN (Reason: abdominal cramping) Qty: 14 0RF promethazine 25 mg tablet 25 mg PO Q6H PRN (Reason: nausea and vomiting) Qty: 14 0RF dicyclomine 20 mg tablet 20 mg PO TID PRN (Reason: abdominal pain) Qty: 14 0RF Primary Care Provider: Care Physician,No Primary Referrals: Friend,Aiden, DO [Med Staff - Active Staff] - Care Physician,No Primary [Primary Care Provider] - Print Language: French Disposition Disposition: Home, Self Care Discharge Date/Time: 02/15/24 15:40
[2024-02-15] MEDS: Dicyclomine 20 MG/2 ML Vial IM (13:20)
[2024-02-15] MEDS: 0.9% Normal Saline (1000mL) 1,000 ML 999 ML IV (13:20)
[2024-02-15] MEDS: Metoclopramide 10 MG/2 ML Vial IV (13:20)
[2024-02-15 13:42] LABS: Absolute Lymphocyte Count 1.14 X10^3/uL (0.83-4.51); Absolute Neutrophil Count 18.6 X10^3/uL (2.0-7.7); Basophil# 0.07 X10^3/uL; Basophil% 0.3 % (0-1); Eosinophil# 0.03 X10^3/uL; Eosinophils% 0.1 % (0-5); Hematocrit 45.1 % (40-54); Hemoglobin 14.7 g/dL (13.0-16.5); Lymphocyte # 1.14 X10^3/ul (0.83-4.51); Lymphocyte % 5.5 % (19-41); Mean Corp Hgb Conc 32.6 g/dL (32-36); Mean Corpuscular Hgb 28.3 pg (27.0-32.0); Mean Corpuscular Volume 86.9 fL (80-94); Mean Platelet Vol. 10.1 fl (6.2-12.0); Monocyte# 0.62 X10^3/uL; NRBC Flagged by Analyzer 0 % (0-5); Neutrophil # 18.64 X10^3/uL (2.7-7.7); Neutrophil % 90.5 % (47-70); Platelet Count 427 K/mm3 (150-450); RBC Distribution Width CV 15.6 % (11.6-14.6); RBC Distribution Width SD 49.8 fl (35.1-43.9); Red Blood Count 5.19 M/mm3 (4.6-6.2); White Blood Count 20.6 K/mm3 (4.4-11.0)
[2024-02-15] MEDS: Ondansetron 4 MG/2 ML Vial IV (13:50)
[2024-02-15] MEDS: Famotidine 200 MG/20 ML MDV 20 MG in 0.9% Normal Saline (Pres. free 8 ML 300 MG IV (13:55)
[2024-02-15] MEDS: DiphenhydrAMINE 25 MG, ChlorproMAZINE IM 50 MG in 0.9% Normal Saline (250mL Bag) 250 ML 252.5 MG IV (14:08)
[2024-02-15 14:10] LABS: ALB/GLOB Ratio 1.1 RATIO (0.9-2.4); AST(SGOT) 16 U/L (15-37); Alanine Aminotransfer ALT/SGPT 18 U/L (16-61); Alkaline Phosphatase 66 U/L (45-117); Anion Gap 12 (5-15); BUN 16 mg/dL (7-18); BUN/Creat Ratio 14.3 RATIO (10-20); Calcium,Total 9.7 mg/dL (8.5-10.1); Chloride 110 mmol/L (98-107); Creatinine, Serum 1.12 mg/dL (0.70-1.30); EST Glomerular Filtration Rate 70 mL/min (>60); Est Glom Filt Rate - Afr Amer 84 mL/min (>60); Estimated Creatinine Clearance 67.89 ml/min; Globulin 3.6 g/dL (2.2-4.2); Glucose 149 mg/dL (74-106); Lipase 44 U/L (13-75); Potassium 3.3 mmol/L (3.5-5.1); Protein, Total 7.6 g/dL (6.4-8.2); Sodium Level 141 mmol/L (136-145)
[2024-02-15 15:00] VITALS: BP 106/73; PULSE 106; RESP 20; O2SAT 91
[2024-02-15 15:39] VITALS: BP 106/91; PULSE 101; RESP 16; TEMP 36.8; O2SAT 94
== END 2024-02-15 15:40 | disposition home or self-care (01) ==
PROVIDERS: Nurse Practitioner; Emergency Provider Emergency Medicine; Visit Provider Emergency Medicine
DX: R11.15 Cyclical vomiting syndrome unrelated to migraine (principal); R10.84 Generalized abdominal pain; I25.10 Atherosclerotic heart disease of native coronary artery without angina pectoris; E53.8 Deficiency of other specified B group vitamins; G31.84 Mild cognitive impairment of uncertain or unknown etiology; I10 Essential (primary) hypertension; I25.2 Old myocardial infarction; F17.290 Nicotine dependence, other tobacco product, uncomplicated; Z79.02 Long term (current) use of antithrombotics/antiplatelets; Z79.82 Long term (current) use of aspirin; Z79.899 Other long term (current) drug therapy
CPT/HCPCS: 80053; 83690; 85025; 96365; 96372; 96375; 99282; J7030; A4216; J2405; J3490

== ENCOUNTER 2024-03-27 09:18 | Emergency (ER) | payer MEDICARE, SELFPAY ==
[2024-03-27 09:18] VITALS: BP 176/119; PULSE 94; PULSE 99; RESP 14; RESP 16; TEMP 36.1; O2SAT 97; O2SAT 98; BMI 26.6
--- NOTE | 2024-03-27 09:29 | EDS_ITS ---
HPI History of Present Illness Chief Complaint: Nausea/Vomiting Narrative Narrative: 63-year-old male past medical history of cyclic vomiting syndrome, states that his last episode was probably a few months ago. He awoke this morning feeling clammy and sweaty. He felt improved after about half an hour when he woke up at 630 this morning, 3 hours ago, but then started having vomiting consistent with his cyclic vomiting. He is unsure of any trigger and denies any recent marijuana use. No diarrhea. No exacerbating or alleviating factors. He has had a least 12 episodes of vomiting, nonbloody. This feels very similar to his previous episodes of cyclic vomiting. He has an appointment for upper endoscopy by Dr. Fuller in a week or so. [facility] Medical History Right adrenal mass History of kidney stones History of seizure Cyclic vomiting syndrome Hiatal hernia Heart attack Home Medications ?Medication ?Instructions ?Recorded ?Last Taken ?Type amlodipine 10 mg tablet 10 mg PO DAILY 11/11/22 Unknown History aspirin 81 mg chewable tablet 81 mg PO DAILY 11/11/22 Unknown History atorvastatin 40 mg tablet 40 mg PO DAILY 11/11/22 Unknown History citalopram 40 mg tablet 40 mg PO DAILY 11/11/22 Unknown History fenofibrate 120 mg tablet 145 mg PO DAILY 11/11/22 Unknown History lisinopril 20 mg tablet 20 mg PO DAILY 11/11/22 Unknown History meloxicam 15 mg tablet 15 mg PO DAILY PRN UNKNOWN 11/11/22 Unknown History sucralfate 1 gram tablet 1 g PO 4X/DAY 11/11/22 Unknown History trazodone 50 mg tablet 75 mg PO DAILY 11/11/22 Unknown History promethazine 25 mg tablet 25 mg PO Q6H PRN nausea and 06/18/23 Unknown Rx vomiting 7 days #28 tabs acetaminophen 500 mg tablet 500 mg PO Q6H PRN 08/22/23 Unknown History (Tylenol Extra Strength) alprazolam 1 mg tablet See Rx Instructions .Route 08/22/23 Unknown Rx .COMPLEX #1 TAB clopidogrel 75 mg tablet (Plavix) 75 mg PO DAILY 08/22/23 Unknown History metoprolol succinate 25 mg 25 mg PO BID 08/22/23 Unknown History tablet,extended release 24 hr nitroglycerin 0.4 mg sublingual 0.4 mg sublingual Q5M PRN 08/22/23 Unknown History tablet dicyclomine 20 mg tablet 20 mg PO TID PRN abdominal pain 01/16/24 Unknown Rx #14 tabs promethazine 25 mg tablet 25 mg PO Q6H PRN nausea and 01/16/24 Unknown Rx vomiting #20 tabs dicyclomine 20 mg tablet 20 mg PO TID PRN abdominal pain 01/26/24 Unknown Rx #14 tabs promethazine 25 mg tablet 25 mg PO Q6H PRN nausea and 01/26/24 Unknown Rx vomiting #14 tabs dicyclomine 20 mg tablet 20 mg PO TID PRN abdominal 02/07/24 Unknown Rx cramping #14 tabs promethazine 25 mg tablet 25 mg PO Q6H PRN nausea and 02/07/24 Unknown Rx vomiting #14 tabs dicyclomine 20 mg tablet 20 mg PO TID PRN abdominal 03/27/24 Unknown Rx cramping #20 tabs metoclopramide HCl 10 mg tablet 10 mg PO Q6H PRN nausea and 03/27/24 Unknown Rx (Reglan) vomiting #12 tabs Allergy/AdvReac Type Severity Reaction Status Date / Time Penicillins (PCN) Allergy Severe Rash Verified 03/27/24 09:21 sertraline (From Zoloft) Allergy Severe Other Verified 03/27/24 09:21 meloxicam (From Mobic) Allergy Mild Itching Verified 03/27/24 09:21 nitrofurantoin (From AdvReac Severe Rash Verified 03/27/24 09:21 Macrobid) Surgical History History of repair of hiatal hernia History of cholecystectomy Social History Smoking Status: Current every day smoker tobacco type: cigars details: Denies alcohol use and history of pancreatitis substance use type: does not use ROS ROS ED ROS Narrative Constitutional: No fever, no chills. HEENT: No sore throat. No neck pain. No loss of vision. No rhinorrhea. Cardiovascular: No chest pain. No palpitations. No pedal edema. Respiratory: No cough, no shortness of breath. Abdominal: No abdominal pain. At least 12 episodes of nausea and vomiting. No diarrhea. Genitourinary: No dysuria. No hematuria. Musculoskeletal: No myalgias. No arthralgias. Neurologic: No headaches. No dizziness. No lightheadedness. Skin: No rash. No change in color. Psychiatric: No depression. No anxiety. EXAM Physical Exam Narrative Exam Narrative: Afebrile. Vital signs noted. HEENT: Normocephalic. Atraumatic. PERRL, EOMI. Neck soft and supple. No point tenderness or step off. Cardiovascular: Regular rate and rhythm. No murmurs, rubs, or gallops appreciated. Respiratory: No tachypnea. Lungs clear to auscultation bilaterally. Gastrointestinal: Abdomen soft, nontender, with normoactive bowel sounds. No rebound or guarding. Negative Brumfield sign. Neurological: Awake. Alert. Nonfocal, nonlateralizing. Skin: No rash. Normal color. No pallor. Musculoskeletal: No pedal edema. Full range of motion extremities. Const Vital Signs: 03/27/24 09:18 03/27/24 09:18 03/27/24 11:18 Temperature 97.0 F L Temperature Source Temporal Pulse Rate 94 99 64 Respiratory Rate 16 14 16 Blood Pressure 176/119 H 176/119 H 136/76 H Blood Pressure Mean 138 138 96 Pulse Ox 97 98 98 Oxygen Delivery Method Room Air Room Air Room Air MDM MDM MDM Narrative Medical decision making narrative: I reviewed the patient's prior records, and he has been seen for cyclic vomiting. He had been given medications from the cyclic vomiting protocol as well. Differential diagnosis includes but not limited to cyclic vomiting syndrome versus bowel obstruction versus gastritis versus pancreatitis. As when asked what brought him to the emergency department, he stated cyclic vomiting, I do not feel that he requires emergent imaging currently. I reviewed his laboratory work and he does have a leukocytosis of 18.4, but on his last visit it was as high as 20,000. Hemoglobin 14.3 and normal, hematocrit 43.4, platelet count normal at 409. Electrolyte panel reviewed and he has elevated chloride of 108, BUN of 20 and creatinine 1.0. LFTs are remarkable for an ALT low at 15 with normal AST of 17. Alk phos normal at 60. Lipase is normal at 60 so I doubt pancreatitis. After his first round of medication including Ativan 1 mg, Zofran, and Pepcid, he states that he has not improved. He will be given a second round of medication in the form of Benadryl and chlorpromazine. I was informed by the RN that patient is resting comfortably and sleeping. Upon repeat examination at approximately 1210, there is no active vomiting, and he is easily awakened. I wrote him prescriptions for Reglan and Bentyl which she had last time already at home. He will follow-up with gastroenterology. I feel he can be discharged to follow-up. Return instructions were reviewed. Disposition is discharged home in stable condition. History & Record Review Discussion w/independent historian: Patient Additional record(s) reviewed:: Prior ED visit and Prior labs Lab Data Attestation: I reviewed the patient's lab results. Labs: Laboratory Results - last 24 hr 03/27/24 09:30 WBC 18.4 H RBC 4.97 Hgb 14.3 Hct 43.4 MCV 87.3 MCH 28.8 MCHC 32.9 RDW Std Deviation 51.2 H RDW Coeff of Florencio 15.9 H Plt Count 409 MPV 9.5 Immature Gran % (Auto) 0.600 Neut % (Auto) 84.2 H Lymph % (Auto) 8.8 L [place] % (Auto) 4.8 Eos % (Auto) 1.2 Baso % (Auto) 0.4 Absolute Neuts (auto) 15.5 H Absolute Lymphs (auto) 1.62 Nucleated RBC % 0 Sodium 138 Potassium 3.6 Chloride 108 H Carbon Dioxide 23.0 Anion Gap 7 BUN 20 H Creatinine 1.01 Estim Creat Clear Calc 75.29 Est GFR (MDRD) Af Amer 95 Est GFR (MDRD) Non-Af 79 BUN/Creatinine Ratio 19.8 Glucose 126 H Calcium 9.9 Total Bilirubin 0.30 AST 17 ALT 15 L Alkaline Phosphatase 60 Total Protein 7.7 Albumin 4.0 Globulin 3.7 Albumin/Globulin Ratio 1.1 Lipase 60 Discharge Plan Triage Chief Complaint: Nausea/Vomiting ED Provider: Dada Chung Dx/Rx/DC Orders Clinical Impression: Cyclic vomiting syndrome, Leukocytosis Instructions: ED Cyclic Vomiting Syndrome Prescriptions: New dicyclomine 20 mg tablet 20 mg PO TID PRN (Reason: abdominal cramping) Qty: 20 0RF metoclopramide HCl [Reglan] 10 mg tablet 10 mg PO Q6H PRN (Reason: nausea and vomiting) Qty: 12 0RF No Action clopidogrel [Plavix] 75 mg tablet 75 mg PO DAILY metoprolol succinate 25 mg tablet extended release 24 hr 25 mg PO BID nitroglycerin 0.4 mg tablet, sublingual 0.4 mg sublingual Q5M PRN Rx Instructions: do not exceed 3 doses per episode acetaminophen [Tylenol Extra Strength] 500 mg tablet 500 mg PO Q6H PRN alprazolam 1 mg tablet See Rx Instructions .ROUTE .COMPLEX Qty: 1 0RF Rx Instructions: Take 1 tablet orally 30 minutes prior to MRI atorvastatin 40 mg Tablet 40 mg PO DAILY citalopram 40 mg Tablet 40 mg PO DAILY trazodone 50 mg Tablet 75 mg PO DAILY meloxicam 15 mg Tablet 15 mg PO DAILY PRN (Reason: UNKNOWN) sucralfate 1 gram Tablet 1 g PO 4X/DAY lisinopril 20 mg Tablet 20 mg PO DAILY amlodipine 10 mg Tablet 10 mg PO DAILY aspirin 81 mg Tablet,Chewable 81 mg PO DAILY fenofibrate 120 mg Tablet 145 mg PO DAILY promethazine 25 mg tablet 25 mg PO Q6H PRN (Reason: nausea and vomiting) 7 Days Qty: 28 0RF promethazine 25 mg tablet 25 mg PO Q6H PRN (Reason: nausea and vomiting) Qty: 20 0RF dicyclomine 20 mg tablet 20 mg PO TID PRN (Reason: abdominal pain) Qty: 14 0RF promethazine 25 mg tablet 25 mg PO Q6H PRN (Reason: nausea and vomiting) Qty: 14 0RF dicyclomine 20 mg tablet 20 mg PO TID PRN (Reason: abdominal cramping) Qty: 14 0RF promethazine 25 mg tablet 25 mg PO Q6H PRN (Reason: nausea and vomiting) Qty: 14 0RF dicyclomine 20 mg tablet 20 mg PO TID PRN (Reason: abdominal pain) Qty: 14 0RF Primary Care Provider: Arias Lemus DO Referrals: Jose Fuller MD [Non-Staff] - [facility] appointment Care Physician,No Primary [Non-Staff] - Print Language: Montserratian Disposition Disposition: Home, Self Care
[2024-03-27] MEDS: 0.9% Normal Saline (1000mL) 1,000 ML 999 ML IV (09:36)
[2024-03-27] MEDS: LORazepam 2 MG/ML Syringe 1 MG IV (09:37)
[2024-03-27] MEDS: Ondansetron 4 MG/2 ML Vial IV (09:37)
[2024-03-27 09:39] LABS: Absolute Lymphocyte Count 1.62 X10^3/uL (0.83-4.51); Absolute Neutrophil Count 15.5 X10^3/uL (2.0-7.7); Basophil# 0.08 X10^3/uL; Basophil% 0.4 % (0-1); Eosinophil# 0.22 X10^3/uL; Eosinophils% 1.2 % (0-5); Hematocrit 43.4 % (40-54); Hemoglobin 14.3 g/dL (13.0-16.5); Lymphocyte # 1.62 X10^3/ul (0.83-4.51); Lymphocyte % 8.8 % (19-41); Mean Corp Hgb Conc 32.9 g/dL (32-36); Mean Corpuscular Hgb 28.8 pg (27.0-32.0); Mean Corpuscular Volume 87.3 fL (80-94); Mean Platelet Vol. 9.5 fl (6.2-12.0); Monocyte# 0.89 X10^3/uL; Monocyte% 4.8 % (0-10); NRBC Flagged by Analyzer 0 % (0-5); Neutrophil # 15.45 X10^3/uL (2.7-7.7); Neutrophil % 84.2 % (47-70); Platelet Count 409 K/mm3 (150-450); RBC Distribution Width CV 15.9 % (11.6-14.6); RBC Distribution Width SD 51.2 fl (35.1-43.9); Red Blood Count 4.97 M/mm3 (4.6-6.2); White Blood Count 18.4 K/mm3 (4.4-11.0)
[2024-03-27] MEDS: Famotidine 200 MG/20 ML MDV 20 MG in 0.9% Normal Saline (Pres. free 8 ML 300 MG IV (09:54)
[2024-03-27 09:59] LABS: ALB/GLOB Ratio 1.1 RATIO (0.9-2.4); AST(SGOT) 17 U/L (15-37); Alanine Aminotransfer ALT/SGPT 15 U/L (16-61); Alkaline Phosphatase 60 U/L (45-117); Anion Gap 7 (5-15); BUN 20 mg/dL (7-18); BUN/Creat Ratio 19.8 RATIO (10-20); Calcium,Total 9.9 mg/dL (8.5-10.1); Chloride 108 mmol/L (98-107); Creatinine, Serum 1.01 mg/dL (0.70-1.30); EST Glomerular Filtration Rate 79 mL/min (>60); Est Glom Filt Rate - Afr Amer 95 mL/min (>60); Estimated Creatinine Clearance 75.29 ml/min; Globulin 3.7 g/dL (2.2-4.2); Glucose 126 mg/dL (74-106); Lipase 60 U/L (13-75); Potassium 3.6 mmol/L (3.5-5.1); Protein, Total 7.7 g/dL (6.4-8.2); Sodium Level 138 mmol/L (136-145)
[2024-03-27] MEDS: DiphenhydrAMINE 50 MG, ChlorproMAZINE IM 50 MG in 0.9% Normal Saline (250mL Bag) 250 ML 253 MG IV (10:57)
[2024-03-27 11:18] VITALS: BP 136/76; PULSE 64; RESP 16; O2SAT 98
[2024-03-27 12:25] VITALS: BP 131/63; PULSE 64; RESP 14; TEMP 36.1; O2SAT 95
== END 2024-03-27 12:27 | disposition home or self-care (01) ==
PROVIDERS: Emergency Provider Emergency Medicine; Visit Provider Emergency Medicine
DX: R11.15 Cyclical vomiting syndrome unrelated to migraine (principal); D72.829 Elevated white blood cell count, unspecified; I25.2 Old myocardial infarction; F17.290 Nicotine dependence, other tobacco product, uncomplicated
CPT/HCPCS: 80053; 83690; 85025; 96365; 96366; 96367; 99283; J7030; J7050; A4216; J2405; J3490

== ENCOUNTER 2024-03-28 00:59 | Emergency (ER) | payer MEDICARE, SELFPAY ==
[2024-03-28 01:00] VITALS: BP 146/106; PULSE 105; RESP 19; TEMP 36.2; O2SAT 97; BMI 26.6
[2024-03-28 01:04] VITALS: BP 146/106
--- NOTE | 2024-03-28 01:23 | EX.ED.DYSGE1 ---
HPI History of Present Illness Chief Complaint: Nausea/Vomiting Informant: patient Narrative Narrative: Patient presents secondary to recurrent nausea and vomiting. Patient was seen in the emergency room less than 24 hours ago with cyclic vomiting and abdominal pain. He was discharged to home. Patient states he started vomiting shortly after return home and has not been able to stop. He denies blood in his vomitus. [facility] Medical History Right adrenal mass History of kidney stones History of seizure Cyclic vomiting syndrome Hiatal hernia Heart attack Home Medications ?Medication ?Instructions ?Recorded ?Last Taken ?Type amlodipine 10 mg tablet 10 mg PO DAILY 11/11/22 Unknown History aspirin 81 mg chewable tablet 81 mg PO DAILY 11/11/22 Unknown History atorvastatin 40 mg tablet 40 mg PO DAILY 11/11/22 Unknown History citalopram 40 mg tablet 40 mg PO DAILY 11/11/22 Unknown History fenofibrate 120 mg tablet 145 mg PO DAILY 11/11/22 Unknown History lisinopril 20 mg tablet 20 mg PO DAILY 11/11/22 Unknown History meloxicam 15 mg tablet 15 mg PO DAILY PRN UNKNOWN 11/11/22 Unknown History sucralfate 1 gram tablet 1 g PO 4X/DAY 11/11/22 Unknown History trazodone 50 mg tablet 75 mg PO DAILY 11/11/22 Unknown History promethazine 25 mg tablet 25 mg PO Q6H PRN nausea and 06/18/23 Unknown Rx vomiting 7 days #28 tabs acetaminophen 500 mg tablet 500 mg PO Q6H PRN 08/22/23 Unknown History (Tylenol Extra Strength) alprazolam 1 mg tablet See Rx Instructions .Route 08/22/23 Unknown Rx .COMPLEX #1 TAB clopidogrel 75 mg tablet (Plavix) 75 mg PO DAILY 08/22/23 Unknown History metoprolol succinate 25 mg 25 mg PO BID 08/22/23 Unknown History tablet,extended release 24 hr nitroglycerin 0.4 mg sublingual 0.4 mg sublingual Q5M PRN 08/22/23 Unknown History tablet dicyclomine 20 mg tablet 20 mg PO TID PRN abdominal pain 01/16/24 Unknown Rx #14 tabs promethazine 25 mg tablet 25 mg PO Q6H PRN nausea and 01/16/24 Unknown Rx vomiting #20 tabs dicyclomine 20 mg tablet 20 mg PO TID PRN abdominal pain 01/26/24 Unknown Rx #14 tabs promethazine 25 mg tablet 25 mg PO Q6H PRN nausea and 01/26/24 Unknown Rx vomiting #14 tabs dicyclomine 20 mg tablet 20 mg PO TID PRN abdominal 02/07/24 Unknown Rx cramping #14 tabs promethazine 25 mg tablet 25 mg PO Q6H PRN nausea and 02/07/24 Unknown Rx vomiting #14 tabs dicyclomine 20 mg tablet 20 mg PO TID PRN abdominal 03/27/24 Unknown Rx cramping #20 tabs metoclopramide HCl 10 mg tablet 10 mg PO Q6H PRN nausea and 03/27/24 Unknown Rx (Reglan) vomiting #12 tabs Allergy/AdvReac Type Severity Reaction Status Date / Time Penicillins (PCN) Allergy Severe Rash Verified 03/27/24 09:21 sertraline (From Zoloft) Allergy Severe Other Verified 03/27/24 09:21 meloxicam (From Mobic) Allergy Mild Itching Verified 03/27/24 09:21 nitrofurantoin (From AdvReac Severe Rash Verified 03/27/24 09:21 Macrobid) Surgical History History of repair of hiatal hernia History of cholecystectomy Social History Smoking Status: Current every day smoker tobacco type: cigars details: Denies alcohol use and history of pancreatitis substance use type: does not use ROS ROS ED Constitutional Constitutional ED: Denies chills or fever(s) Eyes Eyes: Denies discharge from eye(s) ENT ENT ED: Denies discharge from eye(s), rhinorrhea or sore throat Cardiovascular Cardiovascular: Denies chest pain or palpitations Respiratory/Chest Respiratory/Chest: Denies cough or dyspnea Gastrointestinal Gastrointestinal: Reports abdominal pain, nausea and vomiting Genitourinary Genitourinary ED: Denies dysuria Musculoskeletal Musculoskeletal: Denies back pain or extremity pain Integumentary Denies Abrasions or rash Neurologic Neurologic: Denies headache(s) or weakness Psychiatric Psychiatric: Denies anxiety or depression Allergic/Immunologic Allergic/Immunologic ED: Denies lip swelling or urticaria EXAM Physical Exam Const Vital Signs: 03/28/24 01:00 03/28/24 01:04 03/28/24 03:00 Temperature 97.1 F L Temperature Source Temporal Pulse Rate 105 H 78 Respiratory Rate 19 H 16 Blood Pressure 146/106 H 146/106 H 144/93 H Blood Pressure Mean 119 119 110 Pulse Ox 97 99 Oxygen Delivery Method Room Air Room Air Positive well nourished and well developed General Appearance ED: well developed HEENT Reports moist mucous membranes Eyes EOMs intact bilaterally Chest Wall inspection of chest normal and palpation of chest normal Resp normal respiratory effort and clear to auscultation bilaterally Cardio regular rhythm Rate: tachycardic GI GI Narrative: Abdomen soft with mild diffuse tenderness palpation. No guarding or rebound. Extremity normal to inspection Neuro oriented x3 and no sensory deficits noted Motor Exam: strength 5/5 throughout Psych Mood & Affect: anxious Skin no rashes or lesions noted MDM MDM MDM Narrative Medical decision making narrative: Patient's visits over the last several months been reviewed. IV line established. Patient given IV fluids, Compazine, Benadryl, and Bentyl. Labwork obtained to evaluate for leukocytosis, anemia, and electrolyte derangement. History & Record Review Discussion w/independent historian: Patient Additional record(s) reviewed:: Prior ED visit and Prior labs Lab Data Attestation: I reviewed the patient's lab results. Labs: Laboratory Results - last 24 hr 03/28/24 01:22 WBC 18.8 H RBC 4.80 Hgb 14.0 Hct 42.0 MCV 87.5 MCH 29.2 MCHC 33.3 RDW Std Deviation 51.5 H RDW Coeff of Florencio 15.9 H Plt Count 410 MPV 9.7 Immature Gran % (Auto) 0.800 Neut % (Auto) 90.5 H Lymph % (Auto) 4.9 L Hemphill % (Auto) 3.6 Eos % (Auto) 0.0 Baso % (Auto) 0.2 Absolute Neuts (auto) 17.0 H Absolute Lymphs (auto) 0.92 Nucleated RBC % 0 Sodium 142 Potassium 3.4 L Chloride 109 H Carbon Dioxide 18.0 L Anion Gap 15 BUN 15 Creatinine 1.17 Estim Creat Clear Calc 64.99 Est GFR (MDRD) Af Amer 80 Est GFR (MDRD) Non-Af 66 BUN/Creatinine Ratio 12.8 Glucose 145 H Calcium 9.7 Total Bilirubin 0.40 Direct Bilirubin 0.19 AST 21 ALT 17 Alkaline Phosphatase 49 Total Protein 7.7 Albumin 4.2 Globulin 3.5 Lipase 39 Treatment and Re-Evaluation :: CBC was a white count of 18.8 which is consistent with his prior values. 90% neutrophils noted. Hemoglobin is normal at 14. Bicarb is slightly low at 18. Potassium is 3.4. Glucose is 145. LFTs and lipase are unremarkable. On repeat evaluation patient states that he feels well. He feels comfortable going home. He has prescriptions that were written for him yesterday. He will call for his ride. Discharge Plan Triage Chief Complaint: Nausea/Vomiting ED Provider: Patience Lane Dx/Rx/DC Orders Clinical Impression: Vomiting Instructions: ED Vomiting (Adult) Prescriptions: No Action clopidogrel [Plavix] 75 mg tablet 75 mg PO DAILY metoprolol succinate 25 mg tablet extended release 24 hr 25 mg PO BID nitroglycerin 0.4 mg tablet, sublingual 0.4 mg sublingual Q5M PRN Rx Instructions: do not exceed 3 doses per episode acetaminophen [Tylenol Extra Strength] 500 mg tablet 500 mg PO Q6H PRN alprazolam 1 mg tablet See Rx Instructions .ROUTE .COMPLEX Qty: 1 0RF Rx Instructions: Take 1 tablet orally 30 minutes prior to MRI atorvastatin 40 mg Tablet 40 mg PO DAILY citalopram 40 mg Tablet 40 mg PO DAILY trazodone 50 mg Tablet 75 mg PO DAILY meloxicam 15 mg Tablet 15 mg PO DAILY PRN (Reason: UNKNOWN) sucralfate 1 gram Tablet 1 g PO 4X/DAY lisinopril 20 mg Tablet 20 mg PO DAILY amlodipine 10 mg Tablet 10 mg PO DAILY aspirin 81 mg Tablet,Chewable 81 mg PO DAILY fenofibrate 120 mg Tablet 145 mg PO DAILY promethazine 25 mg tablet 25 mg PO Q6H PRN (Reason: nausea and vomiting) 7 Days Qty: 28 0RF promethazine 25 mg tablet 25 mg PO Q6H PRN (Reason: nausea and vomiting) Qty: 20 0RF dicyclomine 20 mg tablet 20 mg PO TID PRN (Reason: abdominal pain) Qty: 14 0RF promethazine 25 mg tablet 25 mg PO Q6H PRN (Reason: nausea and vomiting) Qty: 14 0RF dicyclomine 20 mg tablet 20 mg PO TID PRN (Reason: abdominal cramping) Qty: 14 0RF promethazine 25 mg tablet 25 mg PO Q6H PRN (Reason: nausea and vomiting) Qty: 14 0RF dicyclomine 20 mg tablet 20 mg PO TID PRN (Reason: abdominal pain) Qty: 14 0RF dicyclomine 20 mg tablet 20 mg PO TID PRN (Reason: abdominal cramping) Qty: 20 0RF metoclopramide HCl [Reglan] 10 mg tablet 10 mg PO Q6H PRN (Reason: nausea and vomiting) Qty: 12 0RF Primary Care Provider: Arias Lemus DO Referrals: Arias Lemus DO [Other] - 1-2 Weeks Jose Fuller MD [Non-Staff] - Keep Bhavna appointment Print Language: Lao Disposition Disposition: Home, Self Care
[2024-03-28 01:28] LABS: Absolute Lymphocyte Count 0.92 X10^3/uL (0.83-4.51); Basophil# 0.04 X10^3/uL; Basophil% 0.2 % (0-1); Lymphocyte # 0.92 X10^3/ul (0.83-4.51); Lymphocyte % 4.9 % (19-41); Mean Corp Hgb Conc 33.3 g/dL (32-36); Mean Corpuscular Hgb 29.2 pg (27.0-32.0); Mean Corpuscular Volume 87.5 fL (80-94); Mean Platelet Vol. 9.7 fl (6.2-12.0); Monocyte# 0.68 X10^3/uL; Monocyte% 3.6 % (0-10); NRBC Flagged by Analyzer 0 % (0-5); Neutrophil # 16.99 X10^3/uL (2.7-7.7); Neutrophil % 90.5 % (47-70); Platelet Count 410 K/mm3 (150-450); RBC Distribution Width CV 15.9 % (11.6-14.6); RBC Distribution Width SD 51.5 fl (35.1-43.9); White Blood Count 18.8 K/mm3 (4.4-11.0)
[2024-03-28] MEDS: 0.9% Normal Saline (1000mL) 1,000 ML 1000 ML IV (01:31)
[2024-03-28] MEDS: Dicyclomine 20 MG/2 ML Vial IM (01:31)
[2024-03-28] MEDS: DiphenhydrAMINE 50 MG/ML Syringe 25 MG IV (01:32)
[2024-03-28] MEDS: proCHLORPERazine 10 MG/2 ML Vial IV (01:34)
[2024-03-28 01:45] LABS: AST(SGOT) 21 U/L (15-37); Alanine Aminotransfer ALT/SGPT 17 U/L (16-61); Albumin, Serum 4.2 g/dL (3.2-5.0); Alkaline Phosphatase 49 U/L (45-117); Anion Gap 15 (5-15); BUN 15 mg/dL (7-18); BUN/Creat Ratio 12.8 RATIO (10-20); Bilirubin, Direct 0.19 mg/dL (0.00-0.30); Calcium,Total 9.7 mg/dL (8.5-10.1); Chloride 109 mmol/L (98-107); Creatinine, Serum 1.17 mg/dL (0.70-1.30); EST Glomerular Filtration Rate 66 mL/min (>60); Est Glom Filt Rate - Afr Amer 80 mL/min (>60); Estimated Creatinine Clearance 64.99 ml/min; Globulin 3.5 g/dL (2.2-4.2); Glucose 145 mg/dL (74-106); Lipase 39 U/L (13-75); Potassium 3.4 mmol/L (3.5-5.1); Protein, Total 7.7 g/dL (6.4-8.2); Sodium Level 142 mmol/L (136-145)
[2024-03-28 03:00] VITALS: BP 144/93; PULSE 78; RESP 16; O2SAT 99
[2024-03-28 03:59] VITALS: BP 141/80; PULSE 77; RESP 18; TEMP 36.7; O2SAT 98
== END 2024-03-28 04:00 | disposition home or self-care (01) ==
PROVIDERS: Emergency Provider Emergency Medicine; Visit Provider Emergency Medicine
DX: R11.2 Nausea with vomiting, unspecified (principal); I25.2 Old myocardial infarction; F17.290 Nicotine dependence, other tobacco product, uncomplicated
CPT/HCPCS: 80048; 80076; 83690; 85025; 96361; 96372; 96374; 96375; 99283; J7030; A4216

== ENCOUNTER 2024-06-29 09:05 | Emergency (ER) | payer MEDICARE, SELFPAY ==
[2024-06-29] VITALS (7 sets, daily range): BP systolic 98–173; BP diastolic 45–149; PULSE 72–91; RESP 18–24; TEMP 36.6–36.8; O2SAT 94–100; BMI 26.2
--- NOTE | 2024-06-29 09:35 | EX.ED.DYSGE1 ---
HPI History of Present Illness Chief Complaint: Nausea/Vomiting Informant: patient Narrative Narrative: 64-year-old male with a history of cyclic vomiting syndrome presenting to the emergency department with vomiting. Patient states that this morning while at a store he went to have a bowel movement and began vomiting. He states that he has seen Dr. Fuller for gastroenterology before who wanted him to try taking Thorazine but that made him too depressed to take on a daily basis. Patient states that his symptoms have been present over the past couple hours he did not wanted to get out of hand. He notes a generalized abdominal pain. He notes a prior history of cholecystectomy and notes that his bowel movements have been normal for me.. Patient does not relay 1 specific combination of medications that has worked well for him in the past as he states that he has been given many different kinds. He denies any cannabis use. On review of prior ED visits the patient not noted to have significant electrolyte abnormalities or significant creatinine abnormalities. He generally will have a leukocytosis. He denies history of pancreatitis. [facility] Medical History Right adrenal mass History of kidney stones History of seizure Cyclic vomiting syndrome Hiatal hernia Heart attack Home Medications ?Medication ?Instructions ?Recorded ?Last Taken ?Type amlodipine 10 mg tablet 10 mg PO DAILY 11/11/22 Unknown History aspirin 81 mg chewable tablet 81 mg PO DAILY 11/11/22 Unknown History atorvastatin 40 mg tablet 40 mg PO DAILY 11/11/22 Unknown History citalopram 40 mg tablet 40 mg PO DAILY 11/11/22 Unknown History fenofibrate 120 mg tablet 145 mg PO DAILY 11/11/22 Unknown History lisinopril 20 mg tablet 20 mg PO DAILY 11/11/22 Unknown History meloxicam 15 mg tablet 15 mg PO DAILY PRN UNKNOWN 11/11/22 Unknown History sucralfate 1 gram tablet 1 g PO 4X/DAY 11/11/22 Unknown History trazodone 50 mg tablet 75 mg PO DAILY 11/11/22 Unknown History promethazine 25 mg tablet 25 mg PO Q6H PRN nausea and 06/18/23 Unknown Rx vomiting 7 days #28 tabs acetaminophen 500 mg tablet 500 mg PO Q6H PRN 08/22/23 Unknown History (Tylenol Extra Strength) alprazolam 1 mg tablet See Rx Instructions .Route 08/22/23 Unknown Rx .COMPLEX #1 TAB clopidogrel 75 mg tablet (Plavix) 75 mg PO DAILY 08/22/23 Unknown History metoprolol succinate 25 mg 25 mg PO BID 08/22/23 Unknown History tablet,extended release 24 hr nitroglycerin 0.4 mg sublingual 0.4 mg sublingual Q5M PRN 08/22/23 Unknown History tablet dicyclomine 20 mg tablet 20 mg PO TID PRN abdominal pain 01/16/24 Unknown Rx #14 tabs promethazine 25 mg tablet 25 mg PO Q6H PRN nausea and 01/16/24 Unknown Rx vomiting #20 tabs dicyclomine 20 mg tablet 20 mg PO TID PRN abdominal pain 01/26/24 Unknown Rx #14 tabs promethazine 25 mg tablet 25 mg PO Q6H PRN nausea and 01/26/24 Unknown Rx vomiting #14 tabs dicyclomine 20 mg tablet 20 mg PO TID PRN abdominal 02/07/24 Unknown Rx cramping #14 tabs promethazine 25 mg tablet 25 mg PO Q6H PRN nausea and 02/07/24 Unknown Rx vomiting #14 tabs dicyclomine 20 mg tablet 20 mg PO TID PRN abdominal 03/27/24 Unknown Rx cramping #20 tabs metoclopramide HCl 10 mg tablet 10 mg PO Q6H PRN nausea and 03/27/24 Unknown Rx (Reglan) vomiting #12 tabs Allergy/AdvReac Type Severity Reaction Status Date / Time Penicillins (PCN) Allergy Severe Rash Verified 06/29/24 09:06 sertraline (From Zoloft) Allergy Severe Other Verified 06/29/24 09:06 meloxicam (From Mobic) Allergy Mild Itching Verified 06/29/24 09:06 nitrofurantoin (From AdvReac Severe Rash Verified 06/29/24 09:06 Macrobid) Surgical History History of repair of hiatal hernia History of cholecystectomy Social History Smoking Status: Current every day smoker tobacco type: cigars details: Denies alcohol use and history of pancreatitis substance use type: does not use ROS ROS ED Constitutional Constitutional ED: Denies chills, fever(s) or weight loss Eyes Eyes: Denies change in vision or diplopia ENT ENT ED: Denies ear pain, rhinorrhea or sore throat Cardiovascular Cardiovascular: Denies chest pain, orthopnea, palpitations or racing heartbeat Respiratory/Chest Respiratory/Chest: Denies cough, dyspnea or orthopnea Gastrointestinal Gastrointestinal: Reports abdominal pain, nausea and vomiting; Denies constipation or diarrhea Genitourinary Genitourinary ED: Denies dysuria, hematuria or urinary frequency Musculoskeletal Musculoskeletal: Denies arthralgias, back pain or myalgias Integumentary Denies abscess or rash Neurologic Neurologic: Denies headache(s) or weakness Psychiatric Psychiatric: Denies anxiety, depression, suicidal ideation or suicidal thoughts Endocrine Endocrinology: Denies polydipsia, polyphagia or polyuria Allergic/Immunologic Allergic/Immunologic ED: Denies mouth swelling, tongue swelling or urticaria EXAM Physical Exam Narrative Exam Narrative: Patient appears nauseated and is belching. Const Vital Signs: 06/29/24 09:05 06/29/24 09:05 06/29/24 11:05 Temperature 98 F Temperature Source Temporal Pulse Rate 73 79 73 Respiratory Rate 18 18 18 Blood Pressure 154/110 H 166/115 H 173/149 H Blood Pressure Mean 124 132 157 Pulse Ox 100 98 100 Oxygen Delivery Method Room Air Room Air Room Air 06/29/24 13:00 06/29/24 13:45 Temperature Temperature Source Pulse Rate 72 74 Respiratory Rate 18 21 H Blood Pressure 98/77 99/75 Blood Pressure Mean 84 84 Pulse Ox 100 Oxygen Delivery Method Room Air Positive well nourished and well developed General Appearance ED: well developed HEENT Reports normocephalic, head/scalp atraumatic and moist mucous membranes Eyes PERRL and EOMs intact bilaterally Neck no lymphadenopathy, supple and no JVD Resp normal respiratory effort and clear to auscultation bilaterally Cardio regular rate, regular rhythm and no murmurs GI GI Narrative: Mild diffuse tenderness to palpation. Inspection: Negative for abdominal distention Auscultation: normoactive bowel sounds Palpation: soft Back/Spine no CVA tenderness and normal ROM Extremity normal to inspection General Extremety ED: Negative for edema General Extremity: Negative for edema Neuro oriented x3 and CN's II-XII intact bilaterally Sensorium / Orientation: alert Motor Exam: strength 5/5 throughout Psych mental status grossly normal Mood & Affect: Negative for depressed or tearful Skin no rashes or lesions noted and no wounds MDM MDM MDM Narrative Medical decision making narrative: Differential diagnosis includes but not limited to cyclic vomiting syndrome pancreatitis small bowel obstruction volvulus dehydration choledocholithiasis perforated viscus. Patient initially to the received cyclic vomiting order set including Zofran Pepcid and Ativan. This did not relieve E8 his symptoms. He has done well here in the emergency department with chlorpromazine and Benadryl so we administered this. Patient did sleep for couple hours but when he woke up again began to complain of nausea. He then once again began to vomit. At this point I am going to add on blood work give him IV fluids and we can give some more Zofran. Care of the patient will be checked out to the oncoming physician for final disposition. History & Record Review Discussion w/independent historian: Patient Discharge Plan Triage Chief Complaint: Nausea/Vomiting ED Provider: Truong Cooper Dx/Rx/DC Orders Clinical Impression: Cyclic vomiting syndrome, Vomiting Instructions: ED Cyclic Vomiting Syndrome Prescriptions: No Action clopidogrel [Plavix] 75 mg tablet 75 mg PO DAILY metoprolol succinate 25 mg tablet extended release 24 hr 25 mg PO BID nitroglycerin 0.4 mg tablet, sublingual 0.4 mg sublingual Q5M PRN Rx Instructions: do not exceed 3 doses per episode acetaminophen [Tylenol Extra Strength] 500 mg tablet 500 mg PO Q6H PRN alprazolam 1 mg tablet See Rx Instructions .ROUTE .COMPLEX Qty: 1 0RF Rx Instructions: Take 1 tablet orally 30 minutes prior to MRI atorvastatin 40 mg Tablet 40 mg PO DAILY citalopram 40 mg Tablet 40 mg PO DAILY trazodone 50 mg Tablet 75 mg PO DAILY meloxicam 15 mg Tablet 15 mg PO DAILY PRN (Reason: UNKNOWN) sucralfate 1 gram Tablet 1 g PO 4X/DAY lisinopril 20 mg Tablet 20 mg PO DAILY amlodipine 10 mg Tablet 10 mg PO DAILY aspirin 81 mg Tablet,Chewable 81 mg PO DAILY fenofibrate 120 mg Tablet 145 mg PO DAILY promethazine 25 mg tablet 25 mg PO Q6H PRN (Reason: nausea and vomiting) 7 Days Qty: 28 0RF promethazine 25 mg tablet 25 mg PO Q6H PRN (Reason: nausea and vomiting) Qty: 20 0RF dicyclomine 20 mg tablet 20 mg PO TID PRN (Reason: abdominal pain) Qty: 14 0RF promethazine 25 mg tablet 25 mg PO Q6H PRN (Reason: nausea and vomiting) Qty: 14 0RF dicyclomine 20 mg tablet 20 mg PO TID PRN (Reason: abdominal cramping) Qty: 14 0RF promethazine 25 mg tablet 25 mg PO Q6H PRN (Reason: nausea and vomiting) Qty: 14 0RF dicyclomine 20 mg tablet 20 mg PO TID PRN (Reason: abdominal pain) Qty: 14 0RF dicyclomine 20 mg tablet 20 mg PO TID PRN (Reason: abdominal cramping) Qty: 20 0RF metoclopramide HCl [Reglan] 10 mg tablet 10 mg PO Q6H PRN (Reason: nausea and vomiting) Qty: 12 0RF Primary Care Provider: Arias Lemus Activity Restrictions/Additional Instructions: Please follow-up with your doctors Print Language: Maori Disposition Disposition: Home, Self Care
[2024-06-29] MEDS: Ondansetron 4 MG/2 ML Vial IV ×2 (09:47→16:19)
[2024-06-29] MEDS: LORazepam 2 MG/ML Syringe 1 MG IV (09:48)
[2024-06-29] MEDS: Famotidine 200 MG/20 ML MDV 20 MG in 0.9% Normal Saline (Pres. free 8 ML 300 MG IV (09:50)
[2024-06-29] MEDS: DiphenhydrAMINE 50 MG, ChlorproMAZINE IM 50 MG in 0.9% Normal Saline (250mL Bag) 250 ML 253 MG IV (12:07)
[2024-06-29 16:18] LABS: Absolute Lymphocyte Count 0.65 X10^3/uL (0.83-4.51); Absolute Neutrophil Count 9.4 X10^3/uL (2.0-7.7); Basophil# 0.02 X10^3/uL; Basophil% 0.2 % (0-1); Eosinophil# 0.01 X10^3/uL; Eosinophils% 0.1 % (0-5); Hematocrit 35.3 % (40-54); Hemoglobin 11.7 g/dL (13.0-16.5); Lymphocyte # 0.65 X10^3/ul (0.83-4.51); Lymphocyte % 6.2 % (19-41); Mean Corp Hgb Conc 33.1 g/dL (32-36); Mean Corpuscular Hgb 29.5 pg (27.0-32.0); Mean Corpuscular Volume 89.1 fL (80-94); Mean Platelet Vol. 9.1 fl (6.2-12.0); Monocyte# 0.37 X10^3/uL; Monocyte% 3.5 % (0-10); NRBC Flagged by Analyzer 0 % (0-5); Neutrophil # 9.35 X10^3/uL (2.7-7.7); Neutrophil % 89.2 % (47-70); Platelet Count 345 K/mm3 (150-450); RBC Distribution Width CV 14.5 % (11.6-14.6); Red Blood Count 3.96 M/mm3 (4.6-6.2); White Blood Count 10.5 K/mm3 (4.4-11.0)
[2024-06-29] MEDS: 0.9% Normal Saline (1000mL) 1,000 ML 999 ML IV (16:19)
[2024-06-29 16:20] LABS: POSITIVE COUNT NO; POSITIVE DIFFERENTIAL NO; POSITIVE MORPHOLOGY NO
[2024-06-29 16:31] LABS: AST(SGOT) 21 U/L (15-37); Alanine Aminotransfer ALT/SGPT 15 U/L (16-61); Albumin, Serum 3.4 g/dL (3.2-5.0); Alkaline Phosphatase 41 U/L (45-117); Anion Gap 7 (5-15); BUN 14 mg/dL (7-18); Bilirubin, Direct 0.14 mg/dL (0.00-0.30); Calcium,Total 8.8 mg/dL (8.5-10.1); Chloride 102 mmol/L (98-107); Creatinine, Serum 0.93 mg/dL (0.70-1.30); EST Glomerular Filtration Rate 86 mL/min (>60); Est Glom Filt Rate - Afr Amer 104 mL/min (>60); Estimated Creatinine Clearance 80.68 ml/min; Globulin 2.7 g/dL (2.2-4.2); Glucose 107 mg/dL (74-106); Lipase 27 U/L (13-75); Potassium 4.7 mmol/L (3.5-5.1); Protein, Total 6.1 g/dL (6.4-8.2); Sodium Level 130 mmol/L (136-145)
[2024-06-29] MEDS: Dicyclomine 10 MG Capsule 20 MG PO (17:13)
== END 2024-06-29 19:11 | disposition home or self-care (01) ==
PROVIDERS: Emergency Medicine; Emergency Provider Emergency Medicine; PCP Family Medicine; Visit Provider Emergency Medicine
DX: R11.15 Cyclical vomiting syndrome unrelated to migraine (principal); F17.290 Nicotine dependence, other tobacco product, uncomplicated
CPT/HCPCS: 80048; 80076; 83690; 85025; 96361; 96365; 96366; 96368; 96375; 96376; 99284; J7030; J7050; A4216; J2405; J3490

== ENCOUNTER 2024-06-30 01:16 | Emergency (ER) | payer MEDICARE, SELFPAY ==
[2024-06-30 01:18] VITALS: BP 164/101; PULSE 119; RESP 18; TEMP 36.8; O2SAT 98; BMI 26.0
--- NOTE | 2024-06-30 01:28 | CT_ITS ---
EXAM: CT ABDOMEN AND PELVIS WITH INTRAVENOUS CONTRAST CLINICAL INDICATION: LLQ pain, n/v LLQ pain, n/v TECHNIQUE: Helically acquired images were obtained of the abdomen and pelvis with intravenous contrast. This CT exam was performed using one or more of the following dose reduction techniques: automated exposure control, adjustment of the mA and/or kV according to patient size, and/or use of iterative reconstruction technique. CONTRAST: IV 100mL Isovue-300 RADIATION DOSE: CTDIvol = 16.93 mGy, DLP = 1510.64 mGy-cm COMPARISON: CT scan abdomen and pelvis 01/26/2024, 09/06/2023, and 12/04/2022. FINDINGS: LOWER THORAX: There is a moderate hiatal hernia. There are coronary artery calcifications. Lung bases are clear. No cardiomegaly. No significant pericardial effusion. ABDOMEN: LIVER: Unremarkable. Homogeneous. No focal mass. GALLBLADDER AND BILE DUCTS: The gallbladder surgically absent. No intra- or extrahepatic biliary ductal dilation. PANCREAS: Unremarkable. No focal cystic or solid mass. SPLEEN: Unremarkable. Normal size without focal cystic or solid mass. ADRENALS: There is bilateral adrenal gland hypertrophy, right greater than left. There is a 1.2 cm low-attenuation right adrenal nodule which is likely to represent an adenoma. KIDNEYS AND URETERS: There are simple appearing renal cysts bilaterally as well as cysts are too small to reliably characterize. The largest cyst in the left kidney, arising from the lower pole measures 8.9 cm. No follow-up imaging is necessary for simple renal cysts or cysts that are too small to characterize. In the anterior cortex of the mid right kidney, there is a 2.1 cm nodule with attenuation of 70 HU 3 exams. No further evaluation is necessary. STOMACH AND BOWEL: There are colonic diverticula. There is no evidence for acute diverticulitis. There is a 2.4 cm diverticulum of the duodenal sweep. There is no evidence for duodenal diverticulitis. No stomach or bowel distention. PELVIS: APPENDIX: A normal-appearing appendix is seen on axial images 82-89. BLADDER: Unremarkable. REPRODUCTIVE: Unremarkable as visualized. No mass. ABDOMEN and PELVIS: INTRAPERITONEAL SPACE: Unremarkable. No ascites or other fluid collection. No free air. BONES/JOINTS: There are multilevel degenerative changes in the visualized spine. No suspicious lytic or blastic abnormality. SOFT TISSUES: Unremarkable. No discrete abdominal or pelvic wall hernia. VASCULATURE: There is atherosclerotic calcification of the abdominal aorta in size and intra-abdominal arteries. LYMPH NODES: Unremarkable. No enlarged lymph nodes. CT/Abdomen/Pelvis W IV Cont ONLY IMPRESSION: 1. Hiatal hernia. 2. Bilateral adrenal gland hypertrophy. Right adrenal adenoma. No follow-up imaging is necessary. Consider biochemical assays to determine functional status and exclude pheochromocytoma if biopsy/resection is planned. 3. Mild colonic diverticulosis without evidence for acute diverticulitis. 4. Previous cholecystectomy. 5. Atherosclerosis. 6. No evidence for acute pathology. Electronically Signed: Awais Boyd MD at 3:30 EDT Reading Location ID and State: [facility] / [place] , Service support ,
--- NOTE | 2024-06-30 01:31 | EDS_ITS ---
HPI HPI - GI History of Present Illness Chief Complaint: Nausea/Vomiting Informant: patient Narrative Narrative: 64-year-old male states he has not been able to stop vomiting and he has severe diffuse abdominal pain. Started yesterday. He was seen here in the ER 6 or 7 hours ago for the same thing, given medications until he was not throwing up anymore, he presents now saying none of that helped. He reports the vomiting started first. Then the abdominal pain, now in the last hour or so he has a headache and his right ear hurts. He has chronic issues with his right ear. He denies any discharge. He denies any hematemesis. He confirms he has a history of cyclic vomiting syndrome being diagnosed, he states this happens a couple times a year, and agrees that the symptoms are similar to prior episodes but the pain is worse at this time. [facility] Medical History (Updated 06/30/24 @ 03:[address] Henry Ortiz MD) B12 nutritional deficiency Claustrophobia Mild cognitive impairment Tobacco use HLD (hyperlipidemia) HTN (hypertension) Right adrenal mass History of kidney stones History of seizure Cyclic vomiting syndrome Hiatal hernia Heart attack Home Medications ?Medication ?Instructions ?Recorded ?Last Taken ?Type amlodipine 10 mg tablet 10 mg PO DAILY 11/11/22 Unknown History aspirin 81 mg chewable tablet 81 mg PO DAILY 11/11/22 Unknown History atorvastatin 40 mg tablet 40 mg PO DAILY 11/11/22 Unknown History citalopram 40 mg tablet 40 mg PO DAILY 11/11/22 Unknown History fenofibrate 120 mg tablet 145 mg PO DAILY 11/11/22 Unknown History lisinopril 20 mg tablet 20 mg PO DAILY 11/11/22 Unknown History meloxicam 15 mg tablet 15 mg PO DAILY PRN UNKNOWN 11/11/22 Unknown History sucralfate 1 gram tablet 1 g PO 4X/DAY 11/11/22 Unknown History trazodone 50 mg tablet 75 mg PO DAILY 11/11/22 Unknown History promethazine 25 mg tablet 25 mg PO Q6H PRN nausea and 06/18/23 Unknown Rx vomiting 7 days #28 tabs acetaminophen 500 mg tablet 500 mg PO Q6H PRN 08/22/23 Unknown History (Tylenol Extra Strength) alprazolam 1 mg tablet See Rx Instructions .Route 08/22/23 Unknown Rx .COMPLEX #1 TAB clopidogrel 75 mg tablet (Plavix) 75 mg PO DAILY 08/22/23 Unknown History metoprolol succinate 25 mg 25 mg PO BID 08/22/23 Unknown History tablet,extended release 24 hr nitroglycerin 0.4 mg sublingual 0.4 mg sublingual Q5M PRN 08/22/23 Unknown History tablet dicyclomine 20 mg tablet 20 mg PO Q6H PRN abdominal 06/30/24 Unknown Rx cramping #20 tabs metoclopramide HCl 10 mg tablet 10 mg PO Q6H PRN nausea and 06/30/24 Unknown Rx (Reglan) vomiting #16 tabs Allergy/AdvReac Type Severity Reaction Status Date / Time Penicillins (PCN) Allergy Severe Rash Verified 06/30/24 01:17 sertraline (From Zoloft) Allergy Severe Other Verified 06/30/24 01:17 meloxicam (From Mobic) Allergy Mild Itching Verified 06/30/24 01:17 nitrofurantoin (From AdvReac Severe Rash Verified 06/30/24 01:17 Macrobid) Surgical History (Updated 06/30/24 @ 03:[address] Iris Orozco MD) S/P primary angioplasty with coronary stent History of repair of hiatal hernia History of cholecystectomy Social History (Updated 06/30/24 @ 02:[address] Iris Orozco MD) household members: spouse Smoking Status: Current every day smoker tobacco type: cigars details: Denies alcohol use and history of pancreatitis substance use type: does not use ROS ROS ED Constitutional Constitutional ED: Denies chills or fever(s) Eyes Eyes: Denies change in vision or diplopia ENT ENT ED: Reports ear pain right; Denies rhinorrhea or sore throat Cardiovascular Cardiovascular: Denies chest pain or palpitations Respiratory/Chest Respiratory/Chest: Denies cough or dyspnea Gastrointestinal Gastrointestinal: Reports abdominal pain, nausea and vomiting; Denies diarrhea Genitourinary Genitourinary ED: Denies dysuria or hematuria Musculoskeletal Musculoskeletal: Denies back pain or neck pain Integumentary Denies abscess or rash Neurologic Neurologic: Reports headache(s); Denies paresthesias or weakness EXAM Physical Exam Const Vital Signs: 06/30/24 01:18 06/30/24 03:17 Temperature 98.2 F Temperature Source Oral Pulse Rate 119 H 95 Respiratory Rate 18 16 Blood Pressure 164/101 H 116/80 Blood Pressure Mean 122 92 Pulse Ox 98 95 Oxygen Delivery Method Room Air Room Air Positive well nourished and well developed General Appearance ED: well developed and NAD HEENT Reports TM's clear and moist mucous membranes normocephalic and atraumatic Tympanic Membrane ED: Yes TM's clear Eyes PERRL and EOMs intact bilaterally Neck full ROM and supple Resp normal respiratory effort and clear to auscultation bilaterally Cardio regular rate, regular rhythm and no murmurs Rate: tachycardic GI non-distended GI Narrative: Tender in the left lower quadrant. Examination is somewhat limited due to patient moaning and groaning and kicking his legs around before starting the examination, he states because I hurt. Auscultation: normoactive bowel sounds Palpation: soft Back/Spine no CVA tenderness General Back: other FROM Extremity normal to inspection General Extremety ED: Negative for edema, pulses abnormal or tenderness General Extremity: Negative for edema or pulses abnormal Neuro oriented x3, CN's II-XII intact bilaterally and no sensory deficits noted Sensorium / Orientation: awake and alert Motor Exam: strength 5/5 throughout Psych Attitude: agitated Mood & Affect: anxious Skin no rashes or lesions noted and no wounds MDM MDM MDM Narrative Medical decision making narrative: I reviewed a prior CT on this patient, he does have diverticulosis. Given that he has resting tachycardia states he is in severe pain, and is at risk for diverticulitis I think reasonable to obtain a CT scan this time in addition to treating his symptoms and obtaining repeat CBC and BMP in addition to a cardiac workup since he has a significant history of CAD with 7 stents.. Cardiac workup is negative. He is EKG shows nothing acute and his troponin is single digits. He does have more of a leukocytosis in the last time he was here earlier, and I did obtain the CT and I reviewed the images as well as the result which I agree with; it is negative for any acute. Diverticulosis without diverticulitis is noted. I reevaluated him, he states he is feeling a lot better after the medications we gave him which were Thorazine with Benadryl, morphine, Zofran. I asked him if he wanted to try p.o. challenge to make sure he was tolerating liquids, he declines because he states he often gets worse when he drinks fluids right after about like this and prefers to do bowel rest and go home and rest. He states Reglan and dicyclomine have helped at home when he has had those prescriptions in the past so I will give him prescriptions for those. History & Record Review Additional record(s) reviewed:: Prior outpatient record Lab Data Attestation: I reviewed the patient's lab results. Labs: Laboratory Results - last 24 hr 06/30/24 01:31 WBC 15.2 H RBC 4.14 L Hgb 12.4 L Hct 36.8 L MCV 88.9 MCH 30.0 MCHC 33.7 RDW Std Deviation 46.6 H RDW Coeff of Florencio 14.5 Plt Count 449 MPV 9.2 Immature Gran % (Auto) 1.100 H Neut % (Auto) 91.6 H Lymph % (Auto) 3.9 L [place] % (Auto) 3.2 Eos % (Auto) 0.1 Baso % (Auto) 0.1 Absolute Neuts (auto) 14.0 H Absolute Lymphs (auto) 0.59 L Nucleated RBC % 0 Sodium 132 L Potassium 3.7 Chloride 101 Carbon Dioxide 16.0 L Anion Gap 14 BUN 12 Creatinine 1.04 Estim Creat Clear Calc 72.14 Est GFR (MDRD) Af Amer 92 Est GFR (MDRD) Non-Af 76 BUN/Creatinine Ratio 11.5 Glucose 158 H Calcium 9.3 Troponin I High Sens 20 Radiography Diagnostic Testing: Clinical Impression(s) from Imaging Studies Abdomen/Pelvis CT 06/30/24 01:28 IMPRESSION: 1. Hiatal hernia. 2. Bilateral adrenal gland hypertrophy. Right adrenal adenoma. No follow-up imaging is necessary. Consider biochemical assays to determine functional status and exclude pheochromocytoma if biopsy/resection is planned. 3. Mild colonic diverticulosis without evidence for acute diverticulitis. 4. Previous cholecystectomy. 5. Atherosclerosis. 6. No evidence for acute pathology. Electronically Signed: Awais Boyd MD at 3:30 EDT , Rhythm Strip Rhythm Strip: Sinus Rhythm Rate: 95 Ectopy: None EKG Initial EKG: Attestation: I personally reviewed and interpreted this EKG as follows: Interpretation: Sinus Rhythm and No Acute Injury Pattern Prior EKG tracings: available for review Prior: Unchanged Discharge Plan Triage Chief Complaint: Nausea/Vomiting ED Provider: Henry Ortiz Dx/Rx/DC Orders Clinical Impression: Vomiting, Cyclic vomiting syndrome, Abdominal pain, acute, left lower quadrant Instructions: ED Cyclic Vomiting Syndrome Prescriptions: Continued clopidogrel [Plavix] 75 mg tablet 75 mg PO DAILY metoprolol succinate 25 mg tablet extended release 24 hr 25 mg PO BID nitroglycerin 0.4 mg tablet, sublingual 0.4 mg sublingual Q5M PRN Rx Instructions: do not exceed 3 doses per episode acetaminophen [Tylenol Extra Strength] 500 mg tablet 500 mg PO Q6H PRN alprazolam 1 mg tablet See Rx Instructions .ROUTE .COMPLEX Qty: 1 0RF Rx Instructions: Take 1 tablet orally 30 minutes prior to MRI atorvastatin 40 mg Tablet 40 mg PO DAILY citalopram 40 mg Tablet 40 mg PO DAILY trazodone 50 mg Tablet 75 mg PO DAILY meloxicam 15 mg Tablet 15 mg PO DAILY PRN (Reason: UNKNOWN) sucralfate 1 gram Tablet 1 g PO 4X/DAY lisinopril 20 mg Tablet 20 mg PO DAILY amlodipine 10 mg Tablet 10 mg PO DAILY aspirin 81 mg Tablet,Chewable 81 mg PO DAILY fenofibrate 120 mg Tablet 145 mg PO DAILY promethazine 25 mg tablet 25 mg PO Q6H PRN (Reason: nausea and vomiting) 7 Days Qty: 28 0RF metoclopramide HCl [Reglan] 10 mg tablet 10 mg PO Q6H PRN (Reason: nausea and vomiting) Qty: 16 0RF Changed dicyclomine 20 mg tablet 20 mg PO Q6H PRN (Reason: abdominal cramping) Qty: 20 0RF Discontinued promethazine 25 mg tablet 25 mg PO Q6H PRN (Reason: nausea and vomiting) Qty: 20 0RF dicyclomine 20 mg tablet 20 mg PO TID PRN (Reason: abdominal pain) Qty: 14 0RF promethazine 25 mg tablet 25 mg PO Q6H PRN (Reason: nausea and vomiting) Qty: 14 0RF promethazine 25 mg tablet 25 mg PO Q6H PRN (Reason: nausea and vomiting) Qty: 14 0RF dicyclomine 20 mg tablet 20 mg PO TID PRN (Reason: abdominal pain) Qty: 14 0RF dicyclomine 20 mg tablet 20 mg PO TID PRN (Reason: abdominal cramping) Qty: 20 0RF Primary Care Provider: Arias Lemus Referrals: Arias Lemus, DO [Primary Care Provider] - 3-5 Days if not improving Print Language: Belarusian Disposition Disposition: Home, Self Care
[2024-06-30] MEDS: Morphine 4 MG/ML Syringe IV (01:35)
[2024-06-30 01:54] LABS: Absolute Lymphocyte Count 0.59 X10^3/uL (0.83-4.51); Basophil# 0.02 X10^3/uL; Basophil% 0.1 % (0-1); Eosinophil# 0.01 X10^3/uL; Eosinophils% 0.1 % (0-5); Hematocrit 36.8 % (40-54); Hemoglobin 12.4 g/dL (13.0-16.5); Lymphocyte # 0.59 X10^3/ul (0.83-4.51); Lymphocyte % 3.9 % (19-41); Mean Corp Hgb Conc 33.7 g/dL (32-36); Mean Corpuscular Volume 88.9 fL (80-94); Mean Platelet Vol. 9.2 fl (6.2-12.0); Monocyte# 0.48 X10^3/uL; Monocyte% 3.2 % (0-10); NRBC Flagged by Analyzer 0 % (0-5); Neutrophil # 13.95 X10^3/uL (2.7-7.7); Neutrophil % 91.6 % (47-70); POSITIVE DIFFERENTIAL YES; Platelet Count 449 K/mm3 (150-450); RBC Distribution Width CV 14.5 % (11.6-14.6); RBC Distribution Width SD 46.6 fl (35.1-43.9); Red Blood Count 4.14 M/mm3 (4.6-6.2); White Blood Count 15.2 K/mm3 (4.4-11.0)
[2024-06-30 02:00] LABS: Anion Gap 14 (5-15); BUN 12 mg/dL (7-18); BUN/Creat Ratio 11.5 RATIO (10-20); Calcium,Total 9.3 mg/dL (8.5-10.1); Chloride 101 mmol/L (98-107); Creatinine, Serum 1.04 mg/dL (0.70-1.30); EST Glomerular Filtration Rate 76 mL/min (>60); Est Glom Filt Rate - Afr Amer 92 mL/min (>60); Estimated Creatinine Clearance 72.14 ml/min; Glucose 158 mg/dL (74-106); Potassium 3.7 mmol/L (3.5-5.1); Sodium Level 132 mmol/L (136-145); Troponin-I HS 20 pg/mL (3.0-78.0)
[2024-06-30] MEDS: DiphenhydrAMINE 25 MG, ChlorproMAZINE IM 25 MG in 0.9% Normal Saline (100mL Bag) 100 ML 203 MG IV (02:07)
--- NOTE | 2024-06-30 02:17 | EKG12_ITS ---
Test Reason : DYSRHYTHMIA Blood Pressure : / mmHG Vent. Rate : 097 BPM Atrial Rate : 097 BPM P-R Int : 150 ms QRS Dur : 100 ms QT Int : 376 ms P-R-T Axes : 029 044 048 degrees QTc Int : 477 ms Normal sinus rhythm with sinus arrhythmia Normal ECG Confirmed by FREEMAN GIORDANO, MATILDA ([id number]), editor map SAPPHIRE URIBE ([id number]) on 07/01/2024 1:57:28 PM Referred By: BB Confirmed By:MATILDA MILLARD MD
[2024-06-30 03:17] VITALS: BP 116/80; PULSE 95; RESP 16; O2SAT 95
[2024-06-30 03:53] VITALS: BP 113/74; PULSE 94; RESP 18; TEMP 36.8; O2SAT 97
== END 2024-06-30 03:57 | disposition home or self-care (01) ==
PROVIDERS: Emergency Provider Emergency Medicine; PCP Family Medicine; Visit Provider Emergency Medicine
DX: R11.15 Cyclical vomiting syndrome unrelated to migraine (principal); R10.32 Left lower quadrant pain; I25.10 Atherosclerotic heart disease of native coronary artery without angina pectoris; I25.2 Old myocardial infarction; I10 Essential (primary) hypertension; E78.5 Hyperlipidemia, unspecified; F17.290 Nicotine dependence, other tobacco product, uncomplicated; Z95.5 Presence of coronary angioplasty implant and graft; Z90.49 Acquired absence of other specified parts of digestive tract; Z79.02 Long term (current) use of antithrombotics/antiplatelets; Z79.82 Long term (current) use of aspirin; Z79.899 Other long term (current) drug therapy
CPT/HCPCS: 74177; 80048; 84484; 85025; 93005; 96365; 96375; 99284; Q9967; A4216

== ENCOUNTER 2024-07-10 05:28 | Emergency (ER) | payer MEDICARE, SELFPAY ==
[2024-07-10 05:28] VITALS: BP 160/126; PULSE 88; RESP 22; TEMP 36.6; O2SAT 98; BMI 26.2
[2024-07-10 06:00] LABS: Absolute Lymphocyte Count 1.49 X10^3/uL (0.83-4.51); Absolute Neutrophil Count 16.2 X10^3/uL (2.0-7.7); Basophil# 0.07 X10^3/uL; Basophil% 0.4 % (0-1); Eosinophil# 0.27 X10^3/uL; Eosinophils% 1.4 % (0-5); Hemoglobin 13.4 g/dL (13.0-16.5); Lymphocyte # 1.49 X10^3/ul (0.83-4.51); Lymphocyte % 7.7 % (19-41); Mean Corp Hgb Conc 33.5 g/dL (32-36); Mean Corpuscular Hgb 30.2 pg (27.0-32.0); Mean Corpuscular Volume 90.3 fL (80-94); Mean Platelet Vol. 8.8 fl (6.2-12.0); Monocyte% 6.2 % (0-10); NRBC Flagged by Analyzer 0 % (0-5); Neutrophil # 16.17 X10^3/uL (2.7-7.7); Neutrophil % 83.2 % (47-70); Platelet Count 475 K/mm3 (150-450); RBC Distribution Width CV 14.9 % (11.6-14.6); RBC Distribution Width SD 49.8 fl (35.1-43.9); Red Blood Count 4.43 M/mm3 (4.6-6.2); White Blood Count 19.4 K/mm3 (4.4-11.0)
[2024-07-10] MEDS: Morphine 4 MG/ML Syringe IV (06:00)
[2024-07-10] MEDS: 0.9% Normal Saline (1000mL) 1,000 ML 999 ML IV (06:00)
[2024-07-10] MEDS: Ondansetron 4 MG/2 ML Vial IV (06:00)
[2024-07-10] MEDS: DiphenhydrAMINE 50 MG, ChlorproMAZINE IM 25 MG in 0.9% Normal Saline (100mL Bag) 100 ML 204 MG IV (06:24)
[2024-07-10 06:35] LABS: AST(SGOT) 23 U/L (15-37); Alanine Aminotransfer ALT/SGPT 19 U/L (16-61); Alkaline Phosphatase 60 U/L (45-117); Anion Gap 10 (5-15); BUN 12 mg/dL (7-18); BUN/Creat Ratio 12.1 RATIO (10-20); Bilirubin, Direct 0.11 mg/dL (0.00-0.30); Calcium,Total 9.6 mg/dL (8.5-10.1); Chloride 101 mmol/L (98-107); EST Glomerular Filtration Rate 80 mL/min (>60); Est Glom Filt Rate - Afr Amer 97 mL/min (>60); Estimated Creatinine Clearance 75.03 ml/min; Globulin 3.5 g/dL (2.2-4.2); Glucose 136 mg/dL (74-106); Lipase 56 U/L (13-75); Protein, Total 7.5 g/dL (6.4-8.2); Sodium Level 129 mmol/L (136-145)
--- NOTE | 2024-07-10 06:57 | EX.ED.DYSGE1 ---
HPI History of Present Illness Chief Complaint: Nausea/Vomiting Informant: patient Narrative Narrative: Patient is a 64-year-old male with past medical history of hypertension hyperlipidemia and cyclic vomiting syndrome. He states that he awoke this morning from sleep with generalized abdominal pain and began having bouts of nausea and vomiting. He reports intermittent cannabis use but states he has not done so recently. He denies any new medications or illicit drugs. He states that when his symptoms occur they typically spiral out of control and he needs IV fluids and medications in order to resolve his symptoms and secondary to this he comes in for evaluation [facility] Medical History B12 nutritional deficiency Claustrophobia Mild cognitive impairment Tobacco use HLD (hyperlipidemia) HTN (hypertension) Right adrenal mass History of kidney stones History of seizure Cyclic vomiting syndrome Hiatal hernia Heart attack Home Medications ?Medication ?Instructions ?Recorded ?Last Taken ?Type amlodipine 10 mg tablet 10 mg PO DAILY 11/11/22 Unknown History aspirin 81 mg chewable tablet 81 mg PO DAILY 11/11/22 Unknown History atorvastatin 40 mg tablet 40 mg PO DAILY 11/11/22 Unknown History citalopram 40 mg tablet 40 mg PO DAILY 11/11/22 Unknown History fenofibrate 120 mg tablet 145 mg PO DAILY 11/11/22 Unknown History lisinopril 20 mg tablet 20 mg PO DAILY 11/11/22 Unknown History meloxicam 15 mg tablet 15 mg PO DAILY PRN UNKNOWN 11/11/22 Unknown History sucralfate 1 gram tablet 1 g PO 4X/DAY 11/11/22 Unknown History trazodone 50 mg tablet 75 mg PO DAILY 11/11/22 Unknown History promethazine 25 mg tablet 25 mg PO Q6H PRN nausea and 06/18/23 Unknown Rx vomiting 7 days #28 tabs acetaminophen 500 mg tablet 500 mg PO Q6H PRN 08/22/23 Unknown History (Tylenol Extra Strength) alprazolam 1 mg tablet See Rx Instructions .Route 08/22/23 Unknown Rx .COMPLEX #1 TAB clopidogrel 75 mg tablet (Plavix) 75 mg PO DAILY 08/22/23 Unknown History metoprolol succinate 25 mg 25 mg PO BID 08/22/23 Unknown History tablet,extended release 24 hr nitroglycerin 0.4 mg sublingual 0.4 mg sublingual Q5M PRN chest 08/22/23 Unknown History tablet pain dicyclomine 20 mg tablet 20 mg PO Q6H PRN abdominal 06/30/24 Unknown Rx cramping #20 tabs metoclopramide HCl 10 mg tablet 10 mg PO Q6H PRN nausea and 06/30/24 Unknown Rx (Reglan) vomiting #16 tabs fenofibrate nanocrystallized 145 145 mg PO DAILY 07/10/24 Unknown History mg tablet lisinopril 40 mg tablet 40 mg PO DAILY 07/10/24 Unknown History promethazine 25 mg tablet 25 mg PO TID PRN nausea and 07/10/24 Unknown Rx vomiting #21 tabs Allergy/AdvReac Type Severity Reaction Status Date / Time Penicillins (PCN) Allergy Severe Rash Verified 06/30/24 01:17 sertraline (From Zoloft) Allergy Severe Other Verified 06/30/24 01:17 meloxicam (From Mobic) Allergy Mild Itching Verified 06/30/24 01:17 nitrofurantoin (From AdvReac Severe Rash Verified 06/30/24 01:17 Macrobid) Surgical History S/P primary angioplasty with coronary stent History of repair of hiatal hernia History of cholecystectomy Social History (Updated 06/30/24 @ 02:[address] Iris Orozco MD) household members: spouse Smoking Status: Current every day smoker tobacco type: cigars details: Denies alcohol use and history of pancreatitis substance use type: does not use ROS ROS ED Constitutional Constitutional ED: Denies chills or fever(s) Eyes Eyes: Denies blurry vision or change in vision ENT ENT ED: Reports sore throat Cardiovascular Cardiovascular: Denies chest pain Respiratory/Chest Respiratory/Chest: Denies cough or dyspnea Gastrointestinal Gastrointestinal: Reports abdominal pain, nausea and vomiting; Denies diarrhea Genitourinary Genitourinary ED: Denies dysuria Musculoskeletal Musculoskeletal: Denies myalgias Integumentary Denies rash Neurologic Neurologic: Denies headache(s) Hematologic/Lymphatic Hematologic/Lymphatic: Reports easy bleeding and easy bruising Allergic/Immunologic Allergic/Immunologic ED: Denies mouth swelling or tongue swelling EXAM Physical Exam Const Vital Signs: 07/10/24 05:28 Temperature 97.9 F Temperature Source Temporal Pulse Rate 88 Respiratory Rate 22 H Blood Pressure 160/126 H Blood Pressure Mean 137 Pulse Ox 98 Oxygen Delivery Method Room Air Positive well nourished and well developed General Appearance ED: well developed; Negative for pallor HEENT Reports moist mucous membranes HEENT Narrative: No tongue or lip swelling no oral lesions no airway edema or compromise No signs of infection noted in the posterior pharynx Eyes PERRL and EOMs intact bilaterally General Eye ED: Negative for scleral icterus Neck supple Neck Narrative: No nuchal rigidity or meningeal signs noted No crepitance palpated Resp normal respiratory effort and clear to auscultation bilaterally Cardio regular rate and regular rhythm Rate: other Other Details: Heart is regular rate and rhythm Radial and carotid pulses are equal and symmetric GI non-distended and no masses GI Narrative: Abdomen is soft and nondistended with hyperactive bowel sounds. Patient has mild diffuse pain with palpation without voluntary guarding or rigidity or pulsatile mass. Auscultation: hyperactive bowel sounds Palpation: soft Extremity normal to inspection Neuro oriented x3, CN's II-XII intact bilaterally and no sensory deficits noted Sensorium / Orientation: alert Motor Exam: strength 5/5 throughout Psych Psych Narrative: Patient has a nervous/anxious affect Skin no rashes or lesions noted General Skin Exam: Negative for jaundice or pallor MDM MDM MDM Narrative Medical decision making narrative: Patient arrived to ER hypertensive but has a past medical history of this. He reports a longstanding history of cyclic vomiting syndrome and chart review reveals that he has been here in March as well as just approximately 10 days ago for similar event. Just 10 days ago he had blood work as well as a CT scan and these revealed no clinically significant findings such as acute kidney injury or severe electrolyte abnormality and his CT scan was reviewed and shows no signs of acute abdominal pathology such as pancreatitis colitis or bowel obstruction. Chart review at that time documented that he responded to Thorazine Benadryl morphine and Zofran. Therefore these were ordered as well as 1 L of fluid. I did not feel the need to repeat a CT scan based on the patient's imaging from roughly 10 days ago that did not reveal any signs of acute infection or obstruction. The patient's white blood cell count is elevated at 19.4 but this is most likely stress response as chart review reveals he has been between 18 and 20 with bouts of cyclic vomiting in the past. Otherwise he has no signs of acute kidney injury or severe electrolyte abnormality and his lipase is normal going against pancreatitis. Therefore at this time he is waiting response to treatment but I do feel that as this is a chronic issue for him and his labs not reveal STANLEY or acute pancreatitis or elevation to his liver enzymes suggest biliary colic or acute cholecystitis that he should be safe for home after his symptoms have improved with treatment in the ER History & Record Review Discussion w/independent historian: Patient Lab Data Attestation: I reviewed the patient's lab results. Labs: Laboratory Results - last 24 hr 07/10/24 05:53 WBC 19.4 H RBC 4.43 L Hgb 13.4 Hct 40.0 MCV 90.3 MCH 30.2 MCHC 33.5 RDW Std Deviation 49.8 H RDW Coeff of Florencio 14.9 H Plt Count 475 H MPV 8.8 Immature Gran % (Auto) 1.100 H Neut % (Auto) 83.2 H Lymph % (Auto) 7.7 L [place] % (Auto) 6.2 Eos % (Auto) 1.4 Baso % (Auto) 0.4 Absolute Neuts (auto) 16.2 H Absolute Lymphs (auto) 1.49 Nucleated RBC % 0 Sodium 129 L Potassium 4.0 Chloride 101 Carbon Dioxide 18.0 L Anion Gap 10 BUN 12 Creatinine 1.00 Estim Creat Clear Calc 75.03 Est GFR (MDRD) Af Amer 97 Est GFR (MDRD) Non-Af 80 BUN/Creatinine Ratio 12.1 Glucose 136 H Calcium 9.6 Total Bilirubin 0.40 Direct Bilirubin 0.11 AST 23 ALT 19 Alkaline Phosphatase 60 Total Protein 7.5 Albumin 4.0 Globulin 3.5 Lipase 56 Discharge Plan Triage Chief Complaint: Nausea/Vomiting ED Provider: Carson Montenegro Dx/Rx/DC Orders Clinical Impression: Cyclic vomiting syndrome, Hypertension, Hyperlipidemia Instructions: ED Cyclic Vomiting Syndrome, ED Hypertension, Established Prescriptions: New promethazine 25 mg tablet 25 mg PO TID PRN (Reason: nausea and vomiting) Qty: 21 0RF No Action clopidogrel [Plavix] 75 mg tablet 75 mg PO DAILY metoprolol succinate 25 mg tablet extended release 24 hr 25 mg PO BID nitroglycerin 0.4 mg tablet, sublingual 0.4 mg sublingual Q5M PRN (Reason: chest pain) Rx Instructions: do not exceed 3 doses per episode acetaminophen [Tylenol Extra Strength] 500 mg tablet 500 mg PO Q6H PRN alprazolam 1 mg tablet See Rx Instructions .ROUTE .COMPLEX Qty: 1 0RF Rx Instructions: Take 1 tablet orally 30 minutes prior to MRI atorvastatin 40 mg Tablet 40 mg PO DAILY citalopram 40 mg Tablet 40 mg PO DAILY trazodone 50 mg Tablet 75 mg PO DAILY meloxicam 15 mg Tablet 15 mg PO DAILY PRN (Reason: UNKNOWN) sucralfate 1 gram Tablet 1 g PO 4X/DAY lisinopril 20 mg Tablet 20 mg PO DAILY amlodipine 10 mg Tablet 10 mg PO DAILY aspirin 81 mg Tablet,Chewable 81 mg PO DAILY fenofibrate 120 mg Tablet 145 mg PO DAILY promethazine 25 mg tablet 25 mg PO Q6H PRN (Reason: nausea and vomiting) 7 Days Qty: 28 0RF dicyclomine 20 mg tablet 20 mg PO Q6H PRN (Reason: abdominal cramping) Qty: 20 0RF metoclopramide HCl [Reglan] 10 mg tablet 10 mg PO Q6H PRN (Reason: nausea and vomiting) Qty: 16 0RF lisinopril 40 mg tablet 40 mg PO DAILY fenofibrate nanocrystallized 145 mg tablet 145 mg PO DAILY Primary Care Provider: Arias Lemus Referrals: Arias Lemus, DO [Primary Care Provider] - Activity Restrictions/Additional Instructions: If symptoms return please try controlling your nausea and vomiting with the prescribed Phenergan. If your symptoms or not controlled with the prescribed medication or you have any further concerns please return for repeat evaluation Print Language: Rwandan Disposition Disposition: Home, Self Care
[2024-07-10 07:28] VITALS: BP 141/80; PULSE 79; RESP 16; TEMP 36.6; O2SAT 99
[2024-07-10 08:09] VITALS: BP 141/80; PULSE 79; RESP 16; TEMP 36.6; O2SAT 99
== END 2024-07-10 08:11 | disposition home or self-care (01) ==
PROVIDERS: Emergency Provider Emergency Medicine; PCP Family Medicine; Visit Provider Emergency Medicine
DX: R11.15 Cyclical vomiting syndrome unrelated to migraine (principal); I10 Essential (primary) hypertension; I25.2 Old myocardial infarction; E78.5 Hyperlipidemia, unspecified; F17.290 Nicotine dependence, other tobacco product, uncomplicated; Z95.5 Presence of coronary angioplasty implant and graft; Z79.02 Long term (current) use of antithrombotics/antiplatelets; Z79.82 Long term (current) use of aspirin; Z79.899 Other long term (current) drug therapy
CPT/HCPCS: 80048; 80076; 83690; 85025; 96365; 96375; 99282; J7030; A4216; J2405

== ENCOUNTER 2024-07-10 11:37 | Emergency (ER) | payer MEDICARE, SELFPAY ==
[2024-07-10 11:38] VITALS: BP 149/107; PULSE 129; RESP 16; TEMP 36.6; O2SAT 100; BMI 25.9
[2024-07-10 14:04] LABS: Absolute Lymphocyte Count 0.35 X10^3/uL (0.83-4.51); Absolute Neutrophil Count 13.7 X10^3/uL (2.0-7.7); Basophil# 0.02 X10^3/uL; Basophil% 0.1 % (0-1); Hematocrit 36.6 % (40-54); Hemoglobin 12.3 g/dL (13.0-16.5); Lymphocyte # 0.35 X10^3/ul (0.83-4.51); Lymphocyte % 2.4 % (19-41); Mean Corp Hgb Conc 33.6 g/dL (32-36); Mean Corpuscular Hgb 29.3 pg (27.0-32.0); Mean Corpuscular Volume 87.1 fL (80-94); Monocyte# 0.46 X10^3/uL; Monocyte% 3.1 % (0-10); NRBC Flagged by Analyzer 0 % (0-5); Neutrophil % 93.5 % (47-70); POSITIVE DIFFERENTIAL YES; Platelet Count 508 K/mm3 (150-450); RBC Distribution Width CV 14.7 % (11.6-14.6); RBC Distribution Width SD 47.5 fl (35.1-43.9); White Blood Count 14.7 K/mm3 (4.4-11.0)
[2024-07-10] MEDS: LORazepam 2 MG/ML Syringe 0.5 MG IV (14:05)
[2024-07-10] MEDS: Ondansetron 4 MG/2 ML Vial IV (14:05)
[2024-07-10 14:12] LABS: Prothrombin Time (Protime)PT. 13.5 SECONDS (11.7-14.9)
[2024-07-10 14:13] LABS: Partial Thromboplast Time 27.7 Seconds (24.1-36.2)
[2024-07-10 14:25] LABS: ALB/GLOB Ratio 1.1 RATIO (0.9-2.4); AST(SGOT) 27 U/L (15-37); Alanine Aminotransfer ALT/SGPT 17 U/L (16-61); Albumin, Serum 3.9 g/dL (3.2-5.0); Alkaline Phosphatase 45 U/L (45-117); Anion Gap 11 (5-15); BUN 9 mg/dL (7-18); BUN/Creat Ratio 8.8 RATIO (10-20); Calcium,Total 9.4 mg/dL (8.5-10.1); Chloride 102 mmol/L (98-107); Creatinine, Serum 1.02 mg/dL (0.70-1.30); EST Glomerular Filtration Rate 78 mL/min (>60); Est Glom Filt Rate - Afr Amer 94 mL/min (>60); Estimated Creatinine Clearance 73.56 ml/min; Globulin 3.4 g/dL (2.2-4.2); Glucose 144 mg/dL (74-106); Lipase 37 U/L (13-75); Potassium 3.8 mmol/L (3.5-5.1); Protein, Total 7.3 g/dL (6.4-8.2); Sodium Level 130 mmol/L (136-145)
[2024-07-10] MEDS: Famotidine 200 MG/20 ML MDV 20 MG in 0.9% Normal Saline (Pres. free 8 ML 300 MG IV (14:31)
[2024-07-10] MEDS: CHLORPROMAZINE IV (14:32)
[2024-07-10] MEDS: DIPHENHYDRAMINE IV (14:32)
[2024-07-10] MEDS: NORMAL SALINE 0.9% IV (14:32)
[2024-07-10] MEDS: 0.9% Normal Saline (1000mL) 1,000 ML 1000 ML IV (14:37)
[2024-07-10 15:38] VITALS: BP 122/76; PULSE 92; RESP 18; O2SAT 95
--- NOTE | 2024-07-10 15:44 | EX.ED.DYSGE1 ---
HPI History of Present Illness Chief Complaint: Nausea/Vomiting Informant: patient Onset/Context/Timing Onset: Today Context: Gradual Onset Timing: Continuous Quality: Aching Location: Diffuse Worsened by: Nothing Relieved by: Nothing Narrative Narrative: Patient presents with nausea and vomiting that began earlier this morning. Patient was seen here earlier today for cyclic vomiting syndrome. Patient was given antiemetics. states that patient was still having vomiting when he was discharged. Patient now thinks that he is having some blood in his emesis. Patient admits to some diffuse abdominal pain. Patient describes it as aching. Patient states he has been having some diarrhea. Patient denies any melena or hematochezia. Patient denies any fevers or chills. Patient denies any dysuria or hematuria. [facility] Medical History B12 nutritional deficiency Claustrophobia Mild cognitive impairment Tobacco use HLD (hyperlipidemia) HTN (hypertension) Right adrenal mass History of kidney stones History of seizure Cyclic vomiting syndrome Hiatal hernia Heart attack Home Medications ?Medication ?Instructions ?Recorded ?Last Taken ?Type amlodipine 10 mg tablet 10 mg PO DAILY 11/11/22 Unknown History aspirin 81 mg chewable tablet 81 mg PO DAILY 11/11/22 Unknown History atorvastatin 40 mg tablet 40 mg PO DAILY 11/11/22 Unknown History citalopram 40 mg tablet 40 mg PO DAILY 11/11/22 Unknown History fenofibrate 120 mg tablet 145 mg PO DAILY 11/11/22 Unknown History lisinopril 20 mg tablet 20 mg PO DAILY 11/11/22 Unknown History meloxicam 15 mg tablet 15 mg PO DAILY PRN UNKNOWN 11/11/22 Unknown History sucralfate 1 gram tablet 1 g PO 4X/DAY 11/11/22 Unknown History trazodone 50 mg tablet 75 mg PO DAILY 11/11/22 Unknown History promethazine 25 mg tablet 25 mg PO Q6H PRN nausea and 06/18/23 Unknown Rx vomiting 7 days #28 tabs acetaminophen 500 mg tablet 500 mg PO Q6H PRN 08/22/23 Unknown History (Tylenol Extra Strength) alprazolam 1 mg tablet See Rx Instructions .Route 08/22/23 Unknown Rx .COMPLEX #1 TAB clopidogrel 75 mg tablet (Plavix) 75 mg PO DAILY 08/22/23 Unknown History metoprolol succinate 25 mg 25 mg PO BID 08/22/23 Unknown History tablet,extended release 24 hr nitroglycerin 0.4 mg sublingual 0.4 mg sublingual Q5M PRN chest 08/22/23 Unknown History tablet pain dicyclomine 20 mg tablet 20 mg PO Q6H PRN abdominal 06/30/24 Unknown Rx cramping #20 tabs metoclopramide HCl 10 mg tablet 10 mg PO Q6H PRN nausea and 06/30/24 Unknown Rx (Reglan) vomiting #16 tabs fenofibrate nanocrystallized 145 145 mg PO DAILY 07/10/24 Unknown History mg tablet lisinopril 40 mg tablet 40 mg PO DAILY 07/10/24 Unknown History promethazine 25 mg tablet 25 mg PO TID PRN nausea and 07/10/24 Unknown Rx vomiting #21 tabs Allergy/AdvReac Type Severity Reaction Status Date / Time Penicillins (PCN) Allergy Severe Rash Verified 07/10/24 11:40 sertraline (From Zoloft) Allergy Severe Other Verified 07/10/24 11:40 meloxicam (From Mobic) Allergy Mild Itching Verified 07/10/24 11:40 nitrofurantoin (From AdvReac Severe Rash Verified 07/10/24 11:40 Macrobid) Surgical History S/P primary angioplasty with coronary stent History of repair of hiatal hernia History of cholecystectomy Social History household members: spouse Smoking Status: Current every day smoker tobacco type: cigars details: Denies alcohol use and history of pancreatitis substance use type: does not use ROS ROS ED Constitutional Constitutional ED: Denies chills or fever(s) Eyes Eyes: Denies blurry vision or change in vision ENT ENT ED: Denies rhinorrhea or sore throat Cardiovascular Cardiovascular: Denies chest pain or palpitations Respiratory/Chest Respiratory/Chest: Denies cough or dyspnea Gastrointestinal Gastrointestinal: Reports abdominal pain, diarrhea, nausea and vomiting Genitourinary Genitourinary ED: Denies dysuria or hematuria Musculoskeletal Musculoskeletal: Denies back pain or neck pain Integumentary Denies abscess or rash Neurologic Neurologic: Denies headache(s) or weakness Allergic/Immunologic Allergic/Immunologic ED: Denies mouth swelling or urticaria EXAM Physical Exam Const Vital Signs: 07/10/24 11:38 07/10/24 15:38 Temperature 97.8 F Temperature Source Temporal Pulse Rate 129 H 92 Respiratory Rate 16 18 Blood Pressure 149/107 H 122/76 H Blood Pressure Mean 121 91 Pulse Ox 100 95 Oxygen Delivery Method Room Air Room Air Positive well nourished and well developed General Appearance ED: well developed and NAD HEENT Reports moist mucous membranes Neck supple and no JVD Resp normal respiratory effort and clear to auscultation bilaterally Cardio regular rhythm Rate: tachycardic GI non-distended Palpation: soft and tender epigastric, LLQ, RLQ, LUQ, RUQ, periumbilical and suprapubic Neuro oriented x3, CN's II-XII intact bilaterally and no sensory deficits noted Sensorium / Orientation: alert Motor Exam: strength 5/5 throughout Psych mental status grossly normal MDM MDM MDM Narrative Medical decision making narrative: Differential diagnosis includes cyclic vomiting, gastroenteritis, upper gastrointestinal bleeding, peptic ulcer disease, duodenal ulcer, and dehydration. CBC will be obtained to assess for leukocytosis and anemia. Comprehensive metabolic profile will be obtained to assess for hepatic function, renal function, and electrolyte abnormality. Lipase will be obtained to assess for pancreatitis. PT with INR and PTT will be obtained to assess for coagulopathy. Stool will be sent for occult blood to assess for gastrointestinal bleeding. Lab Data Attestation: I reviewed the patient's lab results. Lab results narrative: CBC was reviewed. There is a mild leukocytosis of 14.7. This was improved from earlier today. Hemoglobin was slightly low at 12.3 and hematocrit was 36.6. This was decreased from earlier today. Comprehensive metabolic profile was reviewed. Sodium was slightly low at 130 and CO2 was slightly low at 17. Remainder is within normal limits. Anion gap is normal. PT with INR and PTT were reviewed and were within normal limits. Lipase was reviewed and was normal at 37. Stool for occult blood was reviewed and was positive. Labs: Laboratory Results - last 24 hr 07/10/24 13:39 WBC 14.7 H RBC 4.20 L Hgb 12.3 L Hct 36.6 L MCV 87.1 MCH 29.3 MCHC 33.6 RDW Std Deviation 47.5 H RDW Coeff of Florencio 14.7 H Plt Count 508 H MPV 9.0 Immature Gran % (Auto) 0.900 Neut % (Auto) 93.5 H Lymph % (Auto) 2.4 L [place] % (Auto) 3.1 Eos % (Auto) 0.0 Baso % (Auto) 0.1 Absolute Neuts (auto) 13.7 H Absolute Lymphs (auto) 0.35 L Nucleated RBC % 0 PT 13.5 INR 1.0 APTT 27.7 Sodium 130 L Potassium 3.8 Chloride 102 Carbon Dioxide 17.0 L Anion Gap 11 BUN 9 Creatinine 1.02 Estim Creat Clear Calc 73.56 Est GFR (MDRD) Af Amer 94 Est GFR (MDRD) Non-Af 78 BUN/Creatinine Ratio 8.8 L Glucose 144 H Calcium 9.4 Total Bilirubin 0.40 AST 27 ALT 17 Alkaline Phosphatase 45 Total Protein 7.3 Albumin 3.9 Globulin 3.4 Albumin/Globulin Ratio 1.1 Lipase 37 Management Discussion w/another healthcare provider: [employer] [employer] (Dr. Baptiste from gastroenterology) Treatment and Re-Evaluation :: Patient was given a dose of Zofran and Ativan. Patient was also given a dose of famotidine. Patient was given a dose of Benadryl and Thorazine. Patient is resting comfortably on reevaluation. Patient was given a dose of Protonix here. Case was discussed with Dr. Baptiste from gastroenterology. He feels the patient can be discharged home with outpatient follow-up. states patient normally follows with Dr. Mg. Patient was instructed to continue his medications as previously prescribed. Patient was instructed to start with a bland diet and advance as tolerated. Patient was instructed to follow-up in 3 to 5 days with his mental health aide and primary care physician. Patient and spouse understood and were agreeable with the plan. All questions were answered. Discharge Plan Triage Chief Complaint: Nausea/Vomiting ED Provider: Pieter Yoon Dx/Rx/DC Orders Clinical Impression: Cyclic vomiting syndrome, Gastritis Instructions: ED Cyclic Vomiting Syndrome, ED Gastritis (Adult) Prescriptions: No Action clopidogrel [Plavix] 75 mg tablet 75 mg PO DAILY metoprolol succinate 25 mg tablet extended release 24 hr 25 mg PO BID nitroglycerin 0.4 mg tablet, sublingual 0.4 mg sublingual Q5M PRN (Reason: chest pain) Rx Instructions: do not exceed 3 doses per episode acetaminophen [Tylenol Extra Strength] 500 mg tablet 500 mg PO Q6H PRN alprazolam 1 mg tablet See Rx Instructions .ROUTE .COMPLEX Qty: 1 0RF Rx Instructions: Take 1 tablet orally 30 minutes prior to MRI atorvastatin 40 mg Tablet 40 mg PO DAILY citalopram 40 mg Tablet 40 mg PO DAILY trazodone 50 mg Tablet 75 mg PO DAILY meloxicam 15 mg Tablet 15 mg PO DAILY PRN (Reason: UNKNOWN) sucralfate 1 gram Tablet 1 g PO 4X/DAY lisinopril 20 mg Tablet 20 mg PO DAILY amlodipine 10 mg Tablet 10 mg PO DAILY aspirin 81 mg Tablet,Chewable 81 mg PO DAILY fenofibrate 120 mg Tablet 145 mg PO DAILY promethazine 25 mg tablet 25 mg PO Q6H PRN (Reason: nausea and vomiting) 7 Days Qty: 28 0RF dicyclomine 20 mg tablet 20 mg PO Q6H PRN (Reason: abdominal cramping) Qty: 20 0RF metoclopramide HCl [Reglan] 10 mg tablet 10 mg PO Q6H PRN (Reason: nausea and vomiting) Qty: 16 0RF lisinopril 40 mg tablet 40 mg PO DAILY fenofibrate nanocrystallized 145 mg tablet 145 mg PO DAILY promethazine 25 mg tablet 25 mg PO TID PRN (Reason: nausea and vomiting) Qty: 21 0RF Primary Care Provider: Arias Lemus Referrals: Arias Lemus DO [Primary Care Provider] - 3-5 Days Jose Fuller MD [Non-Staff] - 3-5 Days Print Language: Setswana Disposition Disposition: Home, Self Care
--- NOTE | 2024-07-10 16:00 | CM.ED ---
Social Work Reason for referral: Cyclical Vomiting Syndrome - support; resources Referral source: Case Find Noted patient has been to the ED a high number of times this year, all related to cyclical vomiting syndrome, N/V type complaints. Patient has been to the ED: 4.24, 5.4, 5.16, 5.20, 5.24, 7.4, 7.5, 10.6, 10.7, and 10.17 x2. Presented to patient's room. Patient and patient's in room. Patient dozing when SW initially entered room, with patient opening eyes slightly. 's eyes appearing red and teary. Introduced to self and role; [facility] [facility] Villa also present in room. Patient did not participate in conversation, but talkative, appearing to appreciate a visit and listening ear. shared that she has been to patient for over 40 years now, to have a son and a daughter who are living within 20 minutes of the [place] area. reports patient was diagnoses with the Cyclic Vomiting Syndrome about 14 years ago, from over use of THC. shares that patient's last use of THC was 5 years ago, though patient continues to smoke [employer] cigars, about 6-10 a day. reports the cigars flare patient's Cyclical Vomiting Syndrome, but patient will not listen to the 's urges to cease all type of smoking. report's patient's: PCP is Dr. Lemus in [place], [place] [facility] - Dr. Sharma Neuro - Dr. Angeles (gets a Vitamin B12 shot). reports the cocktail of Thorazine, Benadryl and Ativan work well for patient, to help the severe symptoms of N/V. Patient has even been prescribed the Thorazine in pill form, but this makes patient sleep too much so patient does not use regularly. 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 reports working outside of the home is a coping skill and stress reliever. reports she and the patient have 2 emotional support dogs at home. Patient does not drive, and provides this assist to patient. Supportive listening offered as shared information above. expressed thanks for having some support while patient was in the ED. Patient never woke up enough to participate in conversation. Let know that SW remains available should needs arise prior to discharge from the ED. -SUNDAY Martinez
[2024-07-10] MEDS: Pantoprazole Sodium 80 MG in 0.9% Normal Saline (50mL Bag) 15 ML 420 MG IV BOLUS (17:07)
== END 2024-07-10 17:23 | disposition home or self-care (01) ==
PROVIDERS: Emergency Provider Emergency Medicine; PCP Family Medicine; Visit Provider Emergency Medicine
DX: R11.15 Cyclical vomiting syndrome unrelated to migraine (principal); K29.01 Acute gastritis with bleeding; I10 Essential (primary) hypertension; I25.2 Old myocardial infarction; E78.5 Hyperlipidemia, unspecified; F17.290 Nicotine dependence, other tobacco product, uncomplicated; Z79.02 Long term (current) use of antithrombotics/antiplatelets; Z79.82 Long term (current) use of aspirin; Z79.899 Other long term (current) drug therapy
CPT/HCPCS: 80053; 82274; 83690; 85025; 85610; 85730; 96365; 96366; 96368; 96375; 99282; J7030; J7050; A4216; J2405; J3490

== ENCOUNTER 2024-09-02 16:53 | Observation (INO) | payer MEDICARE, SELFPAY ==
[2024-09-02 16:54] VITALS: BP 159/123; PULSE 133; RESP 18; TEMP 36.4; O2SAT 97; BMI 24.9
--- NOTE | 2024-09-02 17:55 | CT_ITS ---
STUDY: CT ABDOMEN AND PELVIS WITH CONTRAST REASON FOR EXAM: Male, 64 years old. abdominal pain RADIATION DOSAGE (If Supplied By Facility): CTDIvol = ( 12.25 ) mGy, DLP = ( 944.57 ) mGycm TECHNIQUE: Transaxial images were obtained from the dome of the diaphragm to the symphysis pubis without oral contrast. IV 100mL Isovue-370 was administered. Sagittal and coronal images were reconstructed. Individualized dose optimization techniques were used for this CT. COMPARISON: June 30, 2024 FINDINGS: The visualized lung bases are unremarkable. The visualized portions of the heart are within normal limits . Moderate-sized hiatal hernia is noted. Normal liver. Gallbladder has been removed surgically. Normal spleen. Normal pancreas. Bilateral adrenal hyperplasia. There is also a small hypoattenuated nodule most likely benign adenoma There are multiple simple and complex cysts of varying sizes involving both kidneys. unchanged since prior exam There is thickening of the rugal folds in the stomach consistent with nonspecific gastritis. Normal small intestine. Minor diverticular changes of the colon without evidence for acute diverticulitis The appendix is visualized and appears normal. Atherosclerotic changes of the aorta without evidence for aneurysm. Normal inferior vena cava. Normal retroperitoneum. Normal urinary bladder. Normal abdominal wall. Lumbar spine demonstrates degenerative change CT/Abdomen/Pelvis W IV Cont ONLY IMPRESSION: Moderate size hiatal hernia and findings which may be consistent with nonspecific gastritis No evidence for small bowel obstruction or other acute abnormality with other findings as above Electronically Signed: Jorge Brizuela MD at 20:05 EST ,
--- NOTE | 2024-09-02 17:56 | EX.ED.DYSGE1 ---
HPI History of Present Illness Chief Complaint: Nausea/Vomiting Detail of Chief Complaint: Vomiting and abdominal pain Informant: patient Narrative Narrative: Patient presents to the emergency department with complaint of abdominal pain and vomiting this around 6 AM this morning. Patient tells me he has history of cyclic vomiting syndrome. Describes a sharp stabbing pain in the upper abdomen that he typically does not get with his cyclic vomiting. Patient not having hematemesis currently but they there may have been a small amount of blood earlier. Patient denies fever or recent illness otherwise. He has history of coronary artery disease with cardiac stent. He denies alcohol use. [facility] Medical History B12 nutritional deficiency Claustrophobia Mild cognitive impairment Tobacco use HLD (hyperlipidemia) HTN (hypertension) Right adrenal mass History of kidney stones History of seizure Cyclic vomiting syndrome Hiatal hernia Heart attack Home Medications ?Medication ?Instructions ?Recorded ?Last Taken ?Type amlodipine 10 mg tablet 10 mg PO DAILY 11/11/22 Unknown History aspirin 81 mg chewable tablet 81 mg PO DAILY 11/11/22 Unknown History atorvastatin 40 mg tablet 40 mg PO DAILY 11/11/22 Unknown History citalopram 40 mg tablet 40 mg PO DAILY 11/11/22 Unknown History fenofibrate 120 mg tablet 145 mg PO DAILY 11/11/22 Unknown History sucralfate 1 gram tablet 1 g PO 4X/DAY 11/11/22 Unknown History acetaminophen 500 mg tablet 500 mg PO Q6H PRN pain 08/22/23 Unknown History (Tylenol Extra Strength) clopidogrel 75 mg tablet (Plavix) 75 mg PO DAILY 08/22/23 Unknown History metoprolol succinate 25 mg 25 mg PO BID 08/22/23 Unknown History tablet,extended release 24 hr nitroglycerin 0.4 mg sublingual 0.4 mg sublingual Q5M PRN chest 08/22/23 Unknown History tablet pain dicyclomine 20 mg tablet 20 mg PO Q6H PRN abdominal 06/30/24 Unknown Rx cramping #20 tabs fenofibrate nanocrystallized 145 145 mg PO DAILY 07/10/24 Unknown History mg tablet lisinopril 40 mg tablet 40 mg PO DAILY 07/10/24 Unknown History pantoprazole 40 mg tablet,delayed 40 mg PO DAILY 09/02/24 Unknown History release trazodone 100 mg tablet 100 mg PO QHS 09/02/24 Unknown History Allergy/AdvReac Type Severity Reaction Status Date / Time Penicillins (PCN) Allergy Severe Rash Verified 09/02/24 16:54 sertraline (From Zoloft) Allergy Severe Other Verified 09/02/24 16:54 meloxicam (From Mobic) Allergy Mild Itching Verified 09/02/24 16:54 nitrofurantoin (From AdvReac Severe Rash Verified 09/02/24 16:54 Macrobid) Surgical History S/P primary angioplasty with coronary stent History of repair of hiatal hernia History of cholecystectomy Social History household members: spouse Smoking Status: Current every day smoker tobacco type: cigars details: Denies alcohol use and history of pancreatitis substance use type: does not use ROS ROS ED Review of Systems ROS Unobtainable: other Constitutional Constitutional ED: Reports lethargy; Denies chills, fever(s), sweats or weight loss Eyes Eyes: Denies blurry vision, change in vision or diplopia ENT ENT ED: Denies rhinorrhea or sore throat Cardiovascular Cardiovascular: Denies chest pain, orthopnea or racing heartbeat Respiratory/Chest Respiratory/Chest: Denies cough, dyspnea, dyspnea on exertion, orthopnea or sputum Gastrointestinal Gastrointestinal: Reports abdominal pain, nausea and vomiting; Denies diarrhea Genitourinary Genitourinary ED: Denies dysuria, hematuria or urinary frequency Musculoskeletal Musculoskeletal: Denies arthralgias, back pain, myalgias or neck pain Integumentary Denies abscess, Abrasions or rash Neurologic Neurologic: Denies headache(s) or weakness Psychiatric Psychiatric: Denies anxiety, depression or suicidal thoughts Endocrine Endocrinology: Denies polydipsia, polyphagia or polyuria Hematologic/Lymphatic Hematologic/Lymphatic: Denies easy bleeding, easy bruising or lymphadenopathy Allergic/Immunologic Allergic/Immunologic ED: Denies mouth swelling, tongue swelling or urticaria EXAM Physical Exam Const Vital Signs: 09/02/24 16:54 09/02/24 18:53 09/02/24 20:00 Temperature 97.5 F L Temperature Source Temporal Pulse Rate 133 H 73 96 Respiratory Rate 18 16 Blood Pressure 159/123 H 142/87 H Blood Pressure Mean 135 105 Pulse Ox 97 98 Oxygen Delivery Method Room Air Room Air Room Air 09/02/24 20:59 Temperature 97.5 F L Temperature Source Pulse Rate 96 Respiratory Rate 16 Blood Pressure 142/87 H Blood Pressure Mean 105 Pulse Ox 98 Oxygen Delivery Method Positive well nourished and well developed General Appearance ED: well developed and NAD HEENT Reports TM's clear and moist mucous membranes normocephalic and atraumatic; Negative for trauma or tenderness Tympanic Membrane ED: Yes TM's clear Eyes PERRL and EOMs intact bilaterally General Eye ED: Negative for pale conjunctiva or scleral icterus Neck no lymphadenopathy, supple and no JVD General: Negative for tenderness Chest Wall inspection of chest normal and palpation of chest normal Chest: Negative for tenderness Resp normal respiratory effort and clear to auscultation bilaterally Effort and Inspection: Negative for respiratory distress or pain with movement Auscultation: Negative for rhonchi, wheezes or diminished lung sounds Cardio regular rate, regular rhythm, S1 normal heart sound, S2 normal heart sound and no murmurs Peripheral Pulses: pulses 2+ throughout GI normal to inspection, nondistended, normoactive bowel sounds, soft to palpation, non-distended and no masses GI Narrative: Tenderness palpation over the epigastric region and diffusely as well. There is mild guarding. There is no rebound, rigidity, or peritoneal signs. No mass palpated. Back/Spine no CVA tenderness and no thoracic nor lumbar tenderness Extremity normal to inspection General Extremety ED: Negative for edema General Extremity: Negative for edema Neuro oriented x3, CN's II-XII intact bilaterally, no sensory deficits noted and gait normal Sensorium / Orientation: awake, alert, oriented to person, oriented to place and oriented to time Motor Exam: strength 5/5 throughout and strength abnormal Psych mental status grossly normal Skin no rashes or lesions noted and no wounds MDM MDM MDM Narrative Medical decision making narrative: Patient presents with nausea and vomiting since this morning. History of cyclic vomiting syndrome. IV line established. He was medicated with Reglan. He continued complaint nausea and pain I gave him morphine and Zofran. Also given half a milligram of Ativan. CBC with differential white count of 25.8 and hemoglobin of 13.4 and platelet count of 561. Chemistries unremarkable. BUN 14 and creatinine 1.52. LFTs unremarkable. Lactate was elevated at 6.4. Lipase normal at 31. Urinalysis normal. CT scan of the abdomen pelvis showed a hiatal hernia and gastritis. Patient was ordered Protonix 40 milligrams IV. Case will be discussed with hospitalist to evaluate patient for admission for intractable nausea and vomiting and abdominal pain. Also concerned about significant elevation of the white blood cell count and lactic acidosis although I suspect these are related to retching and vomiting. Lab Data Attestation: I reviewed the patient's lab results. Labs: Laboratory Results - last 24 hr 09/02/24 09/02/24 18:20 19:29 WBC 25.8 H RBC 4.58 L Hgb 13.4 Hct 38.8 L MCV 84.7 MCH 29.3 MCHC 34.5 RDW Std Deviation 45.7 H RDW Coeff of Florencio 14.8 H Plt Count 561 H MPV 9.4 Immature Gran % (Auto) 0.900 Neut % (Auto) 92.7 H Lymph % (Auto) 1.5 L [place] % (Auto) 4.6 Eos % (Auto) 0.1 Baso % (Auto) 0.2 Absolute Neuts (auto) 23.9 H Absolute Lymphs (auto) 0.39 L Nucleated RBC % 0 Platelet Estimate SLT INC Hypochromasia 1+ Anisocytosis 1+ Stomatocytes RARE Sodium 135 L Potassium 4.1 Chloride 103 Carbon Dioxide 19.0 L Anion Gap 13 BUN 14 Creatinine 1.52 H Estim Creat Clear Calc 49.36 Est GFR (MDRD) Af Amer 59 L Est GFR (MDRD) Non-Af 49 L BUN/Creatinine Ratio 9.2 L Glucose 165 H Lactic Acid 6.4 H* Calcium 10.8 H Total Bilirubin 0.60 AST 22 ALT 15 L Alkaline Phosphatase 59 Total Protein 8.3 H Albumin 4.6 Globulin 3.7 Albumin/Globulin Ratio 1.2 Lipase 31 Urine Color Nette Urine Clarity Clear Urine pH 5.0 Ur Specific [place] 1.025 Urine Protein 100 H Urine Glucose (UA) Normal Urine Ketones Negative Urine Occult Blood 150 H Urine Nitrite Negative Urine Bilirubin 1 H Urine Urobilinogen 1 H Ur Leukocyte Esterase 25 H Urine RBC 5-10 SEEN Urine WBC 0-5 SEEN Ur Squamous Epith Cells 0 SEEN Amorphous Sediment 1+ Urine Bacteria 1+ Coarse Granular Casts 0-5 SEEN Urine Mucus 0 SEEN Radiography Diagnostic Testing: Clinical Impression(s) from Imaging Studies Abdomen/Pelvis CT 12/10/24 17:55 IMPRESSION: Moderate size hiatal hernia and findings which may be consistent with nonspecific gastritis No evidence for small bowel obstruction or other acute abnormality with other findings as above Electronically Signed: Jorge Brizuela MD at 20:05 EST Reading Location ID and State: [facility] / [place] Tel , Service support , Discharge Plan Dx/Rx/DC Orders Clinical Impression: Abdominal pain, Intractable cyclical vomiting with nausea, Acidosis, lactic, Leukocytosis Disposition Disposition: Acute Care Hospital [facility]
[2024-09-02] MEDS: Metoclopramide 10 MG/2 ML Vial IV (18:24)
[2024-09-02] MEDS: 0.9% Normal Saline (1000mL) 1,000 ML 999 ML IV (18:24)
[2024-09-02 18:35] LABS: Absolute Lymphocyte Count 0.39 X10^3/uL (0.83-4.51); Absolute Neutrophil Count 23.9 X10^3/uL (2.0-7.7); Basophil# 0.05 X10^3/uL; Basophil% 0.2 % (0-1); Eosinophil# 0.03 X10^3/uL; Eosinophils% 0.1 % (0-5); Hematocrit 38.8 % (40-54); Hemoglobin 13.4 g/dL (13.0-16.5); Lymphocyte # 0.39 X10^3/ul (0.83-4.51); Lymphocyte % 1.5 % (19-41); Mean Corp Hgb Conc 34.5 g/dL (32-36); Mean Corpuscular Hgb 29.3 pg (27.0-32.0); Mean Corpuscular Volume 84.7 fL (80-94); Mean Platelet Vol. 9.4 fl (6.2-12.0); Monocyte# 1.18 X10^3/uL; Monocyte% 4.6 % (0-10); NRBC Flagged by Analyzer 0 % (0-5); Neutrophil # 23.87 X10^3/uL (2.7-7.7); Neutrophil % 92.7 % (47-70); POSITIVE DIFFERENTIAL YES; Platelet Count 561 K/mm3 (150-450); RBC Distribution Width CV 14.8 % (11.6-14.6); RBC Distribution Width SD 45.7 fl (35.1-43.9); Red Blood Count 4.58 M/mm3 (4.6-6.2); White Blood Count 25.8 K/mm3 (4.4-11.0)
[2024-09-02 18:38] LABS: Differential Indicated SCAN CRITERIA MET
[2024-09-02 18:53] VITALS: BP 142/87; PULSE 73; O2SAT 98
[2024-09-02 18:59] LABS: ALB/GLOB Ratio 1.2 RATIO (0.9-2.4); AST(SGOT) 22 U/L (15-37); Alanine Aminotransfer ALT/SGPT 15 U/L (16-61); Albumin, Serum 4.6 g/dL (3.2-5.0); Alkaline Phosphatase 59 U/L (45-117); Anion Gap 13 (5-15); BUN 14 mg/dL (7-18); BUN/Creat Ratio 9.2 RATIO (10-20); Calcium,Total 10.8 mg/dL (8.5-10.1); Chloride 103 mmol/L (98-107); Creatinine, Serum 1.52 mg/dL (0.70-1.30); EST Glomerular Filtration Rate 49 mL/min (>60); Est Glom Filt Rate - Afr Amer 59 mL/min (>60); Estimated Creatinine Clearance 49.36 ml/min; Globulin 3.7 g/dL (2.2-4.2); Glucose 165 mg/dL (74-106); Lipase 31 U/L (13-75); Potassium 4.1 mmol/L (3.5-5.1); Protein, Total 8.3 g/dL (6.4-8.2); Sodium Level 135 mmol/L (136-145)
[2024-09-02 19:00] LABS: Anisocytosis 1+; Hypochromasia 1+; Platelet Estimate SLT INC (ADEQ); Stomatocyte RARE
[2024-09-02 19:11] LABS: Lactic Acid 6.4 mmol/L (0.4-1.9)
[2024-09-02 19:34] LABS: Mucous, Urine 0 SEEN /hpf (<or=2+); Squamous Epithelial Cells - UA 0 SEEN /hpf (0-5)
[2024-09-02 19:35] LABS: Color, Urine Amber (Yellow); Glucose, Dipstick Normal (Normal); Ketone-Dipstick Negative (Negative); Leukocyte Esterase-Dipstick 25 /ul (Negative); Nitrite-Dipstick Negative (Negative); Occult Blood-Urine 150 /ul (Negative); Protein-Dipstick 100 mg/dl (Negative); Specific Gravity, Urine 1.025 (1.002-1.030); Urine Clarity Clear (Clear); Urine Urobilinogen 1 mg/dl (Normal)
[2024-09-02 19:39] LABS: Urine Bilirubin Dipstick 1 mg/dL (Negative)
[2024-09-02 19:47] LABS: Amorphous Sediment 1+; Bacteria 1+ /hpf (None Seen); Coarse Granular Cast 0-5 SEEN /lpf (0-5 /lpf); Red Blood Cells-Urine 5-10 SEEN /hpf (0-5); White Blood Cells 0-5 SEEN /hpf (0-5)
[2024-09-02 20:00] VITALS: PULSE 96; RESP 16
--- NOTE | 2024-09-02 20:44 | PCM.HP.STD ---
HPI - General General Date of Admission: 09/02/24 Date of Service: 09/02/24 Chief Complaint: Abdominal pain, N/V HPI Narrative The patient is a 64 y/o M w/ PMHx: HTN, HLD, Tobacco use, Hx prior seizure, CAD s/p RI s/p PCI, GERD, Mild cognitive impairment, Claustrophobia who presents to the [facility] ED on 09/02/2024 with history of onset of abdominal discomfort and nausea and emesis associated starting approximately 6 AM with history of previous cyclic vomiting syndrome with a sharp stabbing pain in the upper abdomen which she notes is not typical with his cyclic emesis with no hematemesis currently but he states earlier there was some blood tingeing following really severe aggressive bout of emesis with no fever or chills or recent illness but given it was persistent prompted ED evaluation to be cautious. Workup in the ED included T97.5, heart rate 133, BP 159/123, respiratory rate 18, 97% on room air with most recent repeat vitals heart rate 73, BP 142/87, oxygenation 98% on room air, CBC with WBC 25.8, human 13.4, platelet 561 with left shift and lymphopenia, CMP with potassium 135, carbon oxide 19, anion gap 13, BUN/creatinine 14/1.52, GFR 49, glucose 165, hepatic profile not marked appearing, lipase 31, lactic acid 6.4, urinalysis with elevated specific gravity 1.025, protein 100, occult blood 150, nitrate negative, leukocyte Estrace 25 with no marked urine WBCs with urine RBCs 5-10 with 1+ urine bacteria, CT abdomen and pelvis with a moderate size hiatal hernia and findings consistent with possible nonspecific gastritis with no evidence of any bowel obstruction or other acute intra-abdominal abnormality. In the ED patient ministered Protonix 40 mg IV x 1, Zofran 4 mg IV x 2, morphine 4 mg IV x 1, Reglan 10 mg IV x 1, Ativan 0.5 mg IV x 1 as well as 1 L normal saline. [facility] Medical History B12 nutritional deficiency Claustrophobia Mild cognitive impairment Tobacco use HLD (hyperlipidemia) HTN (hypertension) Right adrenal mass History of kidney stones History of seizure Cyclic vomiting syndrome Hiatal hernia Heart attack Home Medications ?Medication ?Instructions ?Recorded ?Last Taken ?Type amlodipine 10 mg tablet 10 mg PO DAILY 11/11/22 Unknown History aspirin 81 mg chewable tablet 81 mg PO DAILY 11/11/22 Unknown History atorvastatin 40 mg tablet 40 mg PO DAILY 11/11/22 Unknown History citalopram 40 mg tablet 40 mg PO DAILY 11/11/22 Unknown History fenofibrate 120 mg tablet 145 mg PO DAILY 11/11/22 Unknown History sucralfate 1 gram tablet 1 g PO 4X/DAY 11/11/22 Unknown History acetaminophen 500 mg tablet 500 mg PO Q6H PRN pain 08/22/23 Unknown History (Tylenol Extra Strength) clopidogrel 75 mg tablet (Plavix) 75 mg PO DAILY 08/22/23 Unknown History metoprolol succinate 25 mg 25 mg PO BID 08/22/23 Unknown History tablet,extended release 24 hr nitroglycerin 0.4 mg sublingual 0.4 mg sublingual Q5M PRN chest 08/22/23 Unknown History tablet pain dicyclomine 20 mg tablet 20 mg PO Q6H PRN abdominal 06/30/24 Unknown Rx cramping #20 tabs fenofibrate nanocrystallized 145 145 mg PO DAILY 07/10/24 Unknown History mg tablet lisinopril 40 mg tablet 40 mg PO DAILY 07/10/24 Unknown History pantoprazole 40 mg tablet,delayed 40 mg PO DAILY 09/02/24 Unknown History release trazodone 100 mg tablet 100 mg PO QHS 09/02/24 Unknown History Allergy/AdvReac Type Severity Reaction Status Date / Time Penicillins (PCN) Allergy Severe Rash Verified 09/02/24 16:54 sertraline (From Zoloft) Allergy Severe Other Verified 09/02/24 16:54 meloxicam (From Mobic) Allergy Mild Itching Verified 09/02/24 16:54 nitrofurantoin (From AdvReac Severe Rash Verified 09/02/24 16:54 Macrobid) Family History (Updated 09/03/24 @ 01:[address] Iris Orozco MD) Mother Heart disease Father Heart disease Surgical History S/P primary angioplasty with coronary stent History of repair of hiatal hernia History of cholecystectomy Social History (Updated 09/03/24 @ 01:[address] Iris Orozco MD) household members: spouse Smoking Status: Current every day smoker tobacco type: cigars per week: 28 alcohol intake: never details: Denies alcohol use and history of pancreatitis substance use type: does not use ROS ROS Narrative Admission Review of Systems: CONSTITUTIONAL: No weight loss, fever, chills, + weakness or fatigue. HEENT: Eyes: No visual loss, blurred vision, double vision or yellow sclerae. Ears, Nose, Throat: No hearing loss, sneezing, congestion, runny nose or sore throat. SKIN: No rash or itching, lesions, wounds. CARDIOVASCULAR: No chest pain, chest pressure or chest discomfort, palpitations, edema, orthopnea, syncopal events. RESPIRATORY: No shortness of breath, cough or sputum, wheezing, hemoptysis. GASTROINTESTINAL: + anorexia, nausea, vomiting, sharp abdominal pain. No diarrhea, melena, BRBPR. GENITOURINARY: No dysuria, frequency, urgency or retention. NEUROLOGICAL: + Chart reported history of memory impairment, unclear etiology or extent. No headache, dizziness, syncope, paralysis, ataxia, numbness or tingling in the extremities, focal weakness, change in bowel or bladder control, seizure. MUSCULOSKELETAL: + muscle, back pain, joint pain or stiffness. HEMATOLOGIC: No anemia, bleeding or bruising. LYMPHATICS: No enlarged nodes. No history of splenectomy. PSYCHIATRIC: + History of anxiety and depression, insomnia. ENDOCRINOLOGIC: No reports of sweating, cold or heat intolerance. No polyuria or polydipsia. ALLERGIES: No history of asthma, hives, eczema or rhinitis. Vital Signs Vital Signs Vital Signs: 09/02/24 16:54 09/02/24 18:53 Temperature 97.5 F L Temperature Source Temporal Pulse Rate 133 H 73 Respiratory Rate 18 Blood Pressure 159/123 H 142/87 H Blood Pressure Mean 135 105 Pulse Ox 97 98 Oxygen Delivery Method Room Air Room Air Weight Weight: 173 lb 14.4 oz Body Mass Index (BMI) 24.9 Physical Exam Narrative Physical Examination: General: Awake, alert, oriented x 3 and cooperative, laying in the ED bed in the position, reports that he does feel significantly improved since initial ED arrival, denies any current nausea or any recent emesis, no abdominal pain currently. Skin: Normal color, normal turgor, no icterus, no cyanosis. HEENT: AT/NC, EOMI, PERRLA, dry MM, no carotid bruits or JVD noted. Lungs: Mildly diminished, greater bases, proper effort, no rales, ronchi or wheezing. Heart: Improved, regular rate and rhythm; no gallop, rub audible. Abdomen: Soft, mild general discomfort to palpation of the abdomen but no rebound or guarding, ND, hyperactive BS, no appreciated HSM. Extremities: No cyanosis, clubbing, or edema. Neurological: Patient awake, alert, oriented as noted, cognitive function intact; pupils equally reactive to light and accommodation, cranial nerves grossly normal, moving all 4 extremities, no focal deficits, strength moderately to severely globally decreased secondary to acute presentation complaints. Psychiatric: Affect appears fatigued, ill-appearing but he notes he is improving, no acute evidence of depressive or anxiety feelings but does have underlying history. Results Lab / Micro Data 09/02/24 18:20 12 18:20 Labs: Laboratory Results - last 24 hr 09/02/24 18:20: WBC 25.8 H, RBC 4.58 L, Hgb 13.4, Hct 38.8 L, MCV 84.7, MCH 29.3, MCHC 34.5, RDW Std Deviation 45.7 H, RDW Coeff of Florencio 14.8 H, Plt Count 561 H, MPV 9.4, Immature Gran % (Auto) 0.900, Neut % (Auto) 92.7 H, Lymph % (Auto) 1.5 L, Richardson % (Auto) 4.6, Eos % (Auto) 0.1, Baso % (Auto) 0.2, Absolute Neuts (auto) 23.9 H, Absolute Lymphs (auto) 0.39 L, Nucleated RBC % 0, Platelet Estimate SLT INC, Hypochromasia 1+, Anisocytosis 1+, Stomatocytes RARE, Sodium 135 L, Potassium 4.1, Chloride 103, Carbon Dioxide 19.0 L, Anion Gap 13, BUN 14, Creatinine 1.52 H, Estim Creat Clear Calc 49.36, Est GFR (MDRD) Af Amer 59 L, Est GFR (MDRD) Non-Af 49 L, BUN/Creatinine Ratio 9.2 L, Glucose 165 H, Lactic Acid 6.4 H*, Calcium 10.8 H, Total Bilirubin 0.60, AST 22, ALT 15 L, Alkaline Phosphatase 59, Total Protein 8.3 H, Albumin 4.6, Globulin 3.7, Albumin/Globulin Ratio 1.2, Lipase 31 09/02/24 19:29: Urine Color Nette, Urine Clarity Clear, Urine pH 5.0, Ur Specific [place] 1.025, Urine Protein 100 H, Urine Glucose (UA) Normal, Urine Ketones Negative, Urine Occult Blood 150 H, Urine Nitrite Negative, Urine Bilirubin 1 H, Urine Urobilinogen 1 H, Ur Leukocyte Esterase 25 H, Urine RBC 5-10 SEEN, Urine WBC 0-5 SEEN, Ur Squamous Epith Cells 0 SEEN, Amorphous Sediment 1+, Urine Bacteria 1+, Coarse Granular Casts 0-5 SEEN, Urine Mucus 0 SEEN Imaging Radiology Impression Abdomen/Pelvis CT 09/02/24 17:55 IMPRESSION: Moderate size hiatal hernia and findings which may be consistent with nonspecific gastritis No evidence for small bowel obstruction or other acute abnormality with other findings as above Electronically Signed: Jorge Brizuela MD at 20:05 EST Reading Location ID and State: [facility] / ID Tel , Service support , Assessment & Plan Assessment/Plan (1) Acidosis, lactic: (2) Leukocytosis: (3) Intractable cyclical vomiting with nausea: (4) Abdominal pain: PLAN: Plan The patient is a 64 y/o M w/ PMHx: HTN, HLD, Tobacco use, Hx prior seizure, CAD s/p RI s/p PCI, GERD, Mild cognitive impairment, Claustrophobia who presents to the [facility] ED on 09/02/2024 with history of onset of abdominal discomfort and nausea and emesis associated starting approximately 6 AM with history of previous cyclic vomiting syndrome with a sharp stabbing pain in the upper abdomen which she notes is not typical with his cyclic emesis with no hematemesis currently but he states earlier there was some blood tingeing following really severe aggressive bout of emesis with no fever or chills or recent illness but given it was persistent prompted ED evaluation to be cautious. #1. Acute abdominal pain of unclear etiology with intractable nausea and emesis with previous cyclic vomiting syndrome known with significant leukocytosis and lactic acidosis of unclear etiology, potentially secondary to severity of dehydration: Will admit to medical surgical floor given significantly stable vital signs and high suspicion this is related to dehydration with intractable nausea and emesis, will continue hydration, patient reporting improvement already in the ED thus will allow clears if continued improvement ongoing, will have as needed antiemetics but currently is denying any recurrent symptoms, urine drug screen has been requested this patient does report that he smokes cannabis although at this time he is reporting only occasional, will trend lactic acid per facility protocol, procalcitonin requested, will plan repeat CBC, CMP in AM, maintain on IV PPI. #2. CAD: Status post previous RI, status post PCI, will continue patient home aspirin, Plavix, statin, metoprolol, lisinopril home regimen. #3. Hypertension: Continue home regimen including amlodipine, metoprolol, lisinopril with hold parameters as needed, PRN hydralazine. #4. Hyperlipidemia: Continue home statin therapy. #5. Chronic mild cognitive impairment: Noted in history, unclear exact etiology, not on a chronic memory impairment medications, very conversant and no obvious evident impairment, encourage continued outpatient follow-up as previously arranged. #6. Anxiety and depression: We will continue patient home citalopram and trazodone regimen. #7. Tobacco Abuse: Encouraged cessation, inpatient consultation per RT, NR if desired. #8. GERD: We will continue IV PPI as noted, transition back to home PPI oral regimen once clinically improved, continue home sucralfate regimen. #9. DVT prophylaxis: Lovenox. #10. CODE status: Patient notes that his who is his medical decision-maker. Discussed CODE status at length including difference between FULL code, DNR-CCA and DNR-CC status. Following discussions about the differences in these status, requested Full Code status. Charges/Coding Visit Charges Inpatient E&M: 40038 Init Hosp L3
[2024-09-02] MEDS: LORazepam 2 MG/ML Syringe 0.5 MG IV (20:50)
[2024-09-02] MEDS: Morphine 4 MG/ML Syringe IV (20:51)
[2024-09-02] MEDS: Ondansetron 4 MG/2 ML Vial IV (20:51)
[2024-09-02] MEDS: Pantoprazole Sodium 40 MG in 0.9% Normal Saline (100mL MB+) 100 ML 330 MG IV (20:51)
[2024-09-02 20:59] VITALS: BP 142/87; PULSE 96; RESP 16; TEMP 36.4; O2SAT 98
[2024-09-02 22:13] VITALS: BMI 24.0
[2024-09-02 22:31] LABS: Reflex Lactate? Y
[2024-09-02 22:40] VITALS: BP 149/88; PULSE 95; RESP 16; TEMP 36.7; O2SAT 93
[2024-09-02 23:00] LABS: Magnesium 1.2 mg/dL (1.6-2.6); Phosphorus 3.6 mg/dL (2.5-4.9)
[2024-09-02] MEDS: Mag Hydrox/Al Hydrox/Simeth 30 ML UDC PO (23:09)
[2024-09-02] MEDS: 0.9% Normal Saline (1000mL) 1,000 ML 100 ML IV (23:13)
[2024-09-02] MEDS: 0.9% Saline Lock 10 ML Syringe IV (23:13)
[2024-09-02 23:37] LABS: Lactic Acid 1.6 mmol/L (0.4-1.9)
[2024-09-02 23:44] LABS: Procalcitonin 0.07 ng/mL (0.00-0.09)
[2024-09-03 01:15] LABS: Amphetamine Urine VISTA NEGATIVE (<1000 ng/mL)
[2024-09-03 01:16] LABS: Barbiturate Urine VISTA NEGATIVE (< 200 ng/mL); Benzodiazepine Urine VISTA NEGATIVE (< 200 ng/mL); Cocaine Urine VISTA NEGATIVE (< 300 ng/mL); Ecstacy Urine VISTA POSITIVE (< 500 ng/mL); Methadone Urine VISTA NEGATIVE (< 300 ng/mL); PCP Urine VISTA NEGATIVE (< 25 ng/mL); THC Urine VISTA POSITIVE (< 50 ng/mL)
[2024-09-03 02:13] LABS: Vista UDS pH Range 7
[2024-09-03] MEDS: Magnesium Sulfate 4gm/100mL 4 GM/100 ML IV.SOLN. IV (02:23)
[2024-09-03 03:34] VITALS: BP 135/80; PULSE 96; RESP 18; TEMP 36.7; O2SAT 93
[2024-09-03 03:48] VITALS: BMI 24.5
[2024-09-03] MEDS: Acetaminophen 325 MG Tablet 650 MG PO (05:18)
[2024-09-03] MEDS: Ondansetron 4 MG/2 ML Vial IV (05:28)
[2024-09-03] MEDS: 0.9% Saline Lock 10 ML Syringe IV (05:28)
[2024-09-03] MEDS: Sucralfate 1 GM Tablet PO ×3 (06:44→15:11)
[2024-09-03 07:39] LABS: Absolute Lymphocyte Count 1.29 X10^3/uL (0.83-4.51); Absolute Neutrophil Count 12.9 X10^3/uL (2.0-7.7); Basophil# 0.02 X10^3/uL; Basophil% 0.1 % (0-1); Hematocrit 31.5 % (40-54); Hemoglobin 10.6 g/dL (13.0-16.5); Lymphocyte # 1.29 X10^3/ul (0.83-4.51); Mean Corp Hgb Conc 33.7 g/dL (32-36); Mean Corpuscular Hgb 29.2 pg (27.0-32.0); Mean Corpuscular Volume 86.8 fL (80-94); Mean Platelet Vol. 9.4 fl (6.2-12.0); Monocyte# 1.91 X10^3/uL; Monocyte% 11.8 % (0-10); NRBC Flagged by Analyzer 0 % (0-5); Neutrophil # 12.86 X10^3/uL (2.7-7.7); Neutrophil % 79.4 % (47-70); POSITIVE DIFFERENTIAL YES; Platelet Count 390 K/mm3 (150-450); RBC Distribution Width CV 15.3 % (11.6-14.6); RBC Distribution Width SD 48.6 fl (35.1-43.9); Red Blood Count 3.63 M/mm3 (4.6-6.2); White Blood Count 16.2 K/mm3 (4.4-11.0)
[2024-09-03 07:49] LABS: Differential Indicated SCAN CRITERIA MET
[2024-09-03 08:02] LABS: Magnesium 2.6 mg/dL (1.6-2.6)
[2024-09-03 08:05] VITALS: O2SAT 97
[2024-09-03 08:20] LABS: Differential Comment SCANNED
[2024-09-03 08:28] LABS: ALB/GLOB Ratio 1.2 RATIO (0.9-2.4); AST(SGOT) 36 U/L (15-37); Alanine Aminotransfer ALT/SGPT 18 U/L (16-61); Albumin, Serum 3.7 g/dL (3.2-5.0); Alkaline Phosphatase 44 U/L (45-117); Anion Gap 8 (5-15); BUN 15 mg/dL (7-18); Calcium,Total 9.5 mg/dL (8.5-10.1); Chloride 106 mmol/L (98-107); Creatinine, Serum 1.07 mg/dL (0.70-1.30); EST Glomerular Filtration Rate 73 mL/min (>60); Est Glom Filt Rate - Afr Amer 89 mL/min (>60); Estimated Creatinine Clearance 70.12 ml/min; Globulin 3.2 g/dL (2.2-4.2); Glucose 109 mg/dL (74-106); Potassium 4.3 mmol/L (3.5-5.1); Protein, Total 6.9 g/dL (6.4-8.2); Sodium Level 135 mmol/L (136-145)
[2024-09-03 09:24] VITALS: PULSE 95
[2024-09-03] MEDS: Metoprolol(XL)Succ 25 MG Tablet PO (09:24)
[2024-09-03] MEDS: amLODIPine 10 MG Tablet PO (09:24)
[2024-09-03] MEDS: Citalopram 40 MG TABLET PO (09:24)
[2024-09-03] MEDS: Clopidogrel Bisulfate 75 MG Tablet PO (09:24)
[2024-09-03] MEDS: Aspirin 81 MG TAB.CHEW PO (09:24)
[2024-09-03] MEDS: Lisinopril 40 MG Tablet PO (09:25)
[2024-09-03] MEDS: Enoxaparin 40 MG/0.4 ML Syringe SC (09:26)
[2024-09-03] MEDS: Mag Hydrox/Al Hydrox/Simeth 30 ML UDC PO (09:38)
[2024-09-03] MEDS: proCHLORPERazine 10 MG/2 ML Vial 5 MG IV (09:46)
[2024-09-03 09:51] VITALS: BP 154/90; PULSE 95; RESP 18; TEMP 36.6; O2SAT 96
--- NOTE | 2024-09-03 10:40 | CASEMGMT ---
RN CM RELIEF CHARGE NURSE CM?to room to meet with patient for initial transition planning/care coordination assessment. RN CM?introduced self and role at [facility]. Pt resting in bed in no distress at this time and consents to assessment, but @ bedside and provided most of the following information. Care providers, pharmacy, and demographics verified/updated at this time. PCP: Dr Lemus from [place] Specialists: Dr Fuller-GI, Dr Angeles-neuro Preferred Pharmacy:[facility] Insurance: [employer] [facility] Prescription Benefit: yes LNOK: , Joan. Son and daughter. Living Arrangements: Lives w/ in one-story home w/2 steps to enter. Independent w/ADL's. does most home mgnt tasks. Transportation:? states pt does drive some. also drives. DME: Pt does not use any DME HHC/SNF: No hx of either. Has done cardiac rehab in the past. Pt declines wanting any resources for substance use. Pt wishes to return home and states has no concerns with going home at time of discharge. CM?to follow for any discharge planning/needs. Pt and voice no concerns/needs at this time. PLAN: Home Paco LORENZO RN, CM
[2024-09-03] MEDS: Pantoprazole Sodium 40 MG in 0.9% Normal Saline (100mL MB+) 100 ML 330 MG IV (11:10)
[2024-09-03] MEDS: FLU VACCINE **HIGH DOSE** TV 24-25 180 MCG/0.5 ML SYRINGE IM (11:22)
[2024-09-03] MEDS: Dicyclomine 10 MG Capsule 20 MG PO (13:12)
[2024-09-03 13:58] LABS: Pathologist Review Reviewed
--- NOTE | 2024-09-03 14:56 | DS.PCM_ITS ---
Providers Date of Admission: 09/02/24 Date of Discharge: 09/03/24 Primary Care Physician: Dr. Arias Lemus DO Reason For Visit: INTRACTABLE N/V, LACTIC ACIDOSIS/LEUKOCYTOSIS Diagnosis Discharge Diagnosis (1) Acidosis, lactic: Status: Acute Code(s): E87.20 - Acidosis, unspecified (2) Leukocytosis: Status: Acute Code(s): D72.829 - Elevated white blood cell count, unspecified (3) Intractable cyclical vomiting with nausea: Status: Acute Code(s): R11.15 - Cyclical vomiting syndrome unrelated to migraine (4) Abdominal pain: Status: Acute Code(s): R10.9 - Unspecified abdominal pain Medications at Discharge Home Medications amlodipine 10 mg tablet 10 mg PO DAILY 11/11/22 aspirin 81 mg chewable tablet 81 mg PO DAILY 11/11/22 atorvastatin 40 mg tablet 40 mg PO DAILY 11/11/22 citalopram 40 mg tablet 40 mg PO DAILY 11/11/22 fenofibrate 120 mg tablet 145 mg PO DAILY 11/11/22 sucralfate 1 gram tablet 1 g PO 4X/DAY 11/11/22 acetaminophen 500 mg tablet (Tylenol Extra Strength) 500 mg PO Q6H PRN pain 08/22/23 clopidogrel 75 mg tablet (Plavix) 75 mg PO DAILY 08/22/23 metoprolol succinate 25 mg tablet,extended release 24 hr 25 mg PO BID 08/22/23 nitroglycerin 0.4 mg sublingual tablet 0.4 mg sublingual Q5M PRN chest pain 08/22/23 dicyclomine 20 mg tablet 20 mg PO Q6H PRN abdominal cramping #20 tabs 06/30/24 fenofibrate nanocrystallized 145 mg tablet 145 mg PO DAILY 07/10/24 lisinopril 40 mg tablet 40 mg PO DAILY 07/10/24 pantoprazole 40 mg tablet,delayed release 40 mg PO DAILY 09/02/24 trazodone 100 mg tablet 100 mg PO QHS 09/02/24 Hospital Course Operations None Procedures - (CT of the abdomen and pelvis) Summary of Care Provided Minutes Spent on Discharge: 30 Hospital Course: Mr. Teixeira is a 64-year-old white male with multiple medical problems who presented to the emergency department at [facility] on 09/02/2024 with abdominal pain and nausea and vomiting that was intractable. He has a history of cyclic vomiting syndrome and marijuana use. On presentation he reported that the pain was stabbing in the upper abdomen and he felt this was not typical of his cyclic vomiting syndrome. He had no hematemesis but did state earlier prior to arrival he had some blood in the vomitus after a severe episode of vomiting. He had no fever or chills and had been fine prior. Vital signs emergency department showed temperature 97.5, heart rate 133, blood pressure is 159/123, respiratory rate 18 and oxygen saturation was 97% on room air. Repeat vitals after IV fluids showed a heart rate of 73 and BP 142/87. CBC showed a leukocytosis with a white count of 25.8, platelet count was elevated at 561 and hemoglobin was 13.4. He did have a left shift and lymphopenia. Chemistry panel showed anion gap of 13 and bicarb of 19. Serum creatinine was 1.52. Lipase was normal. Lactic acid was 6.4 and UA was consistent with marked dehydration having specific gravity of 1.025 but not suggestive of infection. CT of the abdomen pelvis was performed and showed a moderate size hiatal hernia and findings consistent with possible nonspecific gastritis and no evidence of bowel obstruction or other acute intra-abdominal abnormality. In the emergency department he was given Protonix, Zofran, and morphine as well as Reglan and Ativan x 1. He was given 1 L of IV fluids. He was admitted to the medical floor and placed on IV fluids for continued hydration. His lactic acid resolved quickly with hydration. Procalcitonin was completely normal. He was tolerating clear liquid diet well by the a.m. of 09/03/2024. I was able to advance his diet to full liquids and patient did well with this and actually was wanting to order toasted cheese for dinner. He felt much better and wanted to go home. Given his marked improvement and stabilization he was discharged home in stable condition on 09/03/2024. Of note, his urine toxicology screen was positive for marijuana and for MDMA. Highly suspect the MDMA positivity was related to his trazodone. Patient and his denied any substance abuse in the recent past. I asked him to follow- up with his primary care physician within the next month and highly recommended complete cessation of cannabis utilization. Discharge diagnoses: Intractable abdominal pain/nausea/vomiting--> highly suspect cyclic vomiting syndrome--> resolved Lactic acidosis-resolved quickly Dehydration Urine toxicology screen positive for marijuana CAD Essential hypertension Hyperlipidemia Chronic mild cognitive impairment GERD Anxiety Depression Tobacco abuse Physical Exam Narrative Patient evaluated this morning and he did okay with clear liquids. Reevaluated in the afternoon patient states he is feeling much better and wants to go home. Const alert, oriented x3, no apparent distress and average body habitus Constitutional Narrative: Upper middle-aged, white male, sitting up in bed, appears comfortable, nontoxic General Appearance: cooperative, comfortable, well kempt and well developed Exam Limitations: no limitations HEENT normocephalic, head/scalp atraumatic and moist oral mucous membranes Resp normal respiratory effort, no retractions, no use of accessory muscles and clear to auscultation bilaterally Resp Narrative: Diffusely diminished Auscultation: Negative for rales, rhonchi or wheezes Cardio regular rate, regular rhythm, S1 normal heart sound, S2 normal heart sound, no murmurs, no rub, no gallops and no clicks GI normal to inspection, nondistended, normoactive bowel sounds, soft to palpation and non-tender Extremity no clubbing, cyanosis or edema Extremity Narrative: Pedal pulses are 2+ Neuro oriented x3, moves all extremities and no focal motor deficits Speech: speech normal Psych Psych Narrative: Affect is flat but eye contact is good and patient interacts appropriately better interaction in the afternoon in the morning Weight / BMI Weight Weight: 77.5 kg Body Mass Index (BMI) 24.5 ABG / Lab / Microbiology Data 09/03/24 07:05 09/03/24 07:05 Laboratory: Laboratory Results - last 24 hr 09/02/24 18:20: WBC 25.8 H, RBC 4.58 L, Hgb 13.4, Hct 38.8 L, MCV 84.7, MCH 29.3, MCHC 34.5, RDW Std Deviation 45.7 H, RDW Coeff of Florencio 14.8 H, Plt Count 561 H, MPV 9.4, Immature Gran % (Auto) 0.900, Neut % (Auto) 92.7 H, Lymph % (Auto) 1.5 L, [place] % (Auto) 4.6, Eos % (Auto) 0.1, Baso % (Auto) 0.2, Absolute Neuts (auto) 23.9 H, Absolute Lymphs (auto) 0.39 L, Nucleated RBC % 0, Platelet Estimate SLT INC, Hypochromasia 1+, Anisocytosis 1+, Stomatocytes RARE, Sodium 135 L, Potassium 4.1, Chloride 103, Carbon Dioxide 19.0 L, Anion Gap 13, BUN 14, Creatinine 1.52 H, Estim Creat Clear Calc 49.36, Est GFR (MDRD) Af Amer 59 L, E st GFR (MDRD) Non-Af 49 L, BUN/Creatinine Ratio 9.2 L, Glucose 165 H, Lactic Acid 6.4 H*, Calcium 10.8 H, Phosphorus 3.6, Magnesium 1.2 L, Total Bilirubin 0.60, AST 22, ALT 15 L, Alkaline Phosphatase 59, Total Protein 8.3 H, Albumin 4.6, Globulin 3.7, Albumin/Globulin Ratio 1.2, Lipase 31 09/02/24 19:29: Urine Color [place], Urine Clarity Clear, Urine pH 5.0, Ur Specific [place] 1.025, Urine Protein 100 H, Urine Glucose (UA) Normal, Urine Ketones Negative, Urine Occult Blood 150 H, Urine Nitrite Negative, Urine Bilirubin 1 H, Urine Urobilinogen 1 H, Ur Leukocyte Esterase 25 H, Urine RBC 5- 10 SEEN, Urine WBC 0-5 SEEN, Ur Squamous Epith Cells 0 SEEN, Amorphous Sediment 1+, Urine Bacteria 1+, Coarse Granular Casts 0-5 SEEN, Urine Mucus 0 SEEN, Urine Opiates Screen NEGATIVE, Urine Methadone Screen NEGATIVE, Ur Barbiturates Screen NEGATIVE, Ur Phencyclidine Scrn NEGATIVE, Ur Amphetamines Screen NEGATIVE, MDMA (Ecstasy) Screen POSITIVE H, U Benzodiazepines Scrn NEGATIVE, Urine Cocaine Screen NEGATIVE, U Cannabinoids Screen POSITIVE H, Ur Drug Screen Comment 09/02/24 23:04: Lactic Acid 1.6, Procalcitonin 0.07 09/03/24 07:05: WBC 16.2 H, RBC 3.63 L, Hgb 10.6 L, Hct 31.5 L, MCV 86.8, MCH 29.2, MCHC 33.7, RDW Std Deviation 48.6 H, RDW Coeff of Florencio 15.3 H, Plt Count 390, MPV 9.4, Immature Gran % (Auto) 0.700, Neut % (Auto) 79.4 H, Lymph % (Auto) 8.0 L, [place] % (Auto) 11.8 H, Eos % (Auto) 0.0, Baso % (Auto) 0.1, Absolute Neuts (auto) 12.9 H, Absolute Lymphs (auto) 1.29, Nucleated RBC % 0, Differential Comment SCANNED, Diff Path Review Reviewed, Sodium 135 L, Potassium 4.3, Chloride 106, Carbon Dioxide 21.0, Anion Gap 8, BUN 15, Creatinine 1.07, Estim Creat Clear Calc 70.12, Est GFR (MDRD) Af Amer 89, Est GFR (MDRD) Non-Af 73, BUN/Creatinine Ratio 14.0, Glucose 109 H, Calcium 9.5, Magnesium 2.6, Total Bilirubin 0.30, AST 36, ALT 18, Alkaline Phosphatase 44 L, Total Protein 6.9, Albumin 3.7, Globulin 3.2, Albumin/Globulin Ratio 1.2 Radiography Diagnostic Testing: Radiology Impression Abdomen/Pelvis CT 09/02/24 17:55 IMPRESSION: Moderate size hiatal hernia and findings which may be consistent with nonspecific gastritis No evidence for small bowel obstruction or other acute abnormality with other findings as above Electronically Signed: Jorge Brizuela MD at 20:05 EST Reading Location ID and State: [facility] / [place] Tel , Service support , D/C Instructions Discharge Diet: Light diet - advance as tolerated Discharge Activity: Return to Normal Activity DC O2, CPAP, BIPAP Needs Additional Home O2 Discharge instructions: No DC home with Oxygen: No Meaningful Use Info Meaningful Use Meaningful Use Diagnoses (Choose all that apply): None applicable Ischemic Stroke Statin Dosing Therapy Reference: STATIN DOSE THERAPY REFERENCE: * Patients > 75 years receive moderate or high dose statin therapy. * Patients 75 years or YOUNGER should receive HIGH intensity statin dose unless contraindicated. You will be required to document reason for non-treatment if statin daily dose does not meet guidelines. HIGH DOSE STATIN THERAPY DAILY Atorvastatin > than or = to 40 mg Rosuvastatin > than or = to 20 mg Amlodipine + Atorvastatin > than or = to 2.5/40 mg Ezetimibe + Simvastatin 10/80 mg Simvastatin 80mg Discharge Plan Admission Admit Date/Time: 09/02/24 21:11 Primary Reason for Your Visit: Intractable nausea and vomiting/abdominal pain Attending Provider: Mirta Meza Primary Care Provider: Arias Lemus Consulting Providers: Iris Orozco Instructions Additional Instructions / Restrictions: 1. Highly recommend completely stopping the use of marijuana Discharge Orders/Prescriptions Prescriptions: Continued clopidogrel [Plavix] 75 mg tablet 75 mg PO DAILY metoprolol succinate 25 mg tablet extended release 24 hr 25 mg PO BID nitroglycerin 0.4 mg tablet, sublingual 0.4 mg sublingual Q5M PRN (Reason: chest pain) Rx Instructions: do not exceed 3 doses per episode acetaminophen [Tylenol Extra Strength] 500 mg tablet 500 mg PO Q6H PRN (Reason: pain) atorvastatin 40 mg Tablet 40 mg PO DAILY citalopram 40 mg Tablet 40 mg PO DAILY sucralfate 1 gram Tablet 1 g PO 4X/DAY amlodipine 10 mg Tablet 10 mg PO DAILY aspirin 81 mg Tablet,Chewable 81 mg PO DAILY fenofibrate 120 mg Tablet 145 mg PO DAILY dicyclomine 20 mg tablet 20 mg PO Q6H PRN (Reason: abdominal cramping) Qty: 20 0RF lisinopril 40 mg tablet 40 mg PO DAILY fenofibrate nanocrystallized 145 mg tablet 145 mg PO DAILY trazodone 100 mg tablet 100 mg PO QHS pantoprazole 40 mg tablet,delayed release (DR/EC) 40 mg PO DAILY Referrals / Follow Up: Arias Lemus DO [Primary Care Provider] - Within 1 Month Disposition Disposition (needs filled in before D/C Order can be placed): Home, Self Care Charges/Coding Visit Charges Inpatient E&M: 83078 Disch Hosp
--- NOTE | 2024-09-03 15:28 | CASEMGMT ---
Patient has order for discharge. RN CM in to discuss needs at discharge, at bedside. Patient denies needs or help at discharge. Patient had no further questions or concerns.
[2024-09-03 15:45] VITALS: BP 144/96; PULSE 90; RESP 16; TEMP 36.7; O2SAT 96
== END 2024-09-03 14:58 | disposition home or self-care (01) ==
LOC: ED 20:44 → PCU 09-03 06:52
PROVIDERS: Admitting Provider Family Medicine; Emergency Provider Emergency Medicine; PCP Family Medicine; Visit Provider Internal Medicine
DX: E87.20 Acidosis, unspecified (principal); I10 Essential (primary) hypertension; K44.9 Diaphragmatic hernia without obstruction or gangrene; G31.84 Mild cognitive impairment of uncertain or unknown etiology; E78.5 Hyperlipidemia, unspecified; I25.10 Atherosclerotic heart disease of native coronary artery without angina pectoris; K21.9 Gastro-esophageal reflux disease without esophagitis; Z95.5 Presence of coronary angioplasty implant and graft; Z79.02 Long term (current) use of antithrombotics/antiplatelets; F41.9 Anxiety disorder, unspecified; E86.0 Dehydration; R11.15 Cyclical vomiting syndrome unrelated to migraine; F32.A Depression, unspecified; D72.810 Lymphocytopenia; F17.290 Nicotine dependence, other tobacco product, uncomplicated; D72.829 Elevated white blood cell count, unspecified; Z23 Encounter for immunization; Z86.74 Personal history of sudden cardiac arrest; Z79.899 Other long term (current) drug therapy; Z79.82 Long term (current) use of aspirin
CPT/HCPCS: 36415; 74177; 80053; 80307; 81001; 83605; 83690; 83735; 84100; 84145; 85025; 87086; 87088; 90662; 96361; 96365; 96366; 96367; 96372; 96375; 96376; 97802; 99221; 99283; Q9967; A4216; G0378; J2405

== ENCOUNTER 2024-10-03 14:45 | Emergency (ER) | payer MEDICARE, SELFPAY ==
[2024-10-03 14:46] VITALS: BP 140/93; PULSE 105; RESP 16; TEMP 36.9; O2SAT 99; BMI 25.0
--- NOTE | 2024-10-03 14:55 | EKG12_ITS ---
Test Reason : CP Blood Pressure : */* mmHG Vent. Rate : 103 BPM Atrial Rate : 103 BPM P-R Int : 162 ms QRS Dur : 98 ms QT Int : 354 ms P-R-T Axes : 43 36 51 degrees QTcB Int : 463 ms Sinus tachycardia Otherwise normal ECG Confirmed by Wai Katz ([id number]), market editor SAPPHIRE URIBE ([id number]) on 10/06/2024 10:23:54 AM Referred By: OJ Confirmed By: Wai Katz
--- NOTE | 2024-10-03 14:56 | EDS_ITS ---
HPI History of Present Illness Chief Complaint: Chest Pain Narrative Narrative: 64-year-old male past medical history of coronary artery disease states he has 7 stents in his heart with the last being placed 3 to 4 years ago. 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 He presents to the emergency department because he states he does not feel well. He has been having intermittent chest pain over the last week. It only lasts a few minutes at its longest. States he has been intermittently nauseated but has not vomited. He has not been diaphoretic, but may have been short of breath as well. He states he is having heart palpitations as well. Initially, he told triage that he has gained weight, but he and his state that over the last few weeks he has lost weight. He is to weigh 210 pounds but now only weighs around 175 pounds. He denies any exacerbating or alleviating factors to his intermittent chest pain. [facility] Medical History B12 nutritional deficiency Claustrophobia Mild cognitive impairment Tobacco use HLD (hyperlipidemia) HTN (hypertension) Right adrenal mass History of kidney stones History of seizure Cyclic vomiting syndrome Hiatal hernia Heart attack Home Medications ?Medication ?Instructions ?Recorded ?Last Taken ?Type amlodipine 10 mg tablet 10 mg PO DAILY 11/11/22 Unknown History aspirin 81 mg chewable tablet 81 mg PO DAILY 11/11/22 Unknown History atorvastatin 40 mg tablet 40 mg PO DAILY 11/11/22 Unknown History citalopram 40 mg tablet 40 mg PO DAILY 11/11/22 Unknown History fenofibrate 120 mg tablet 145 mg PO DAILY 11/11/22 Unknown History sucralfate 1 gram tablet 1 g PO 4X/DAY 11/11/22 Unknown History acetaminophen 500 mg tablet 500 mg PO Q6H PRN pain 08/22/23 Unknown History (Tylenol Extra Strength) clopidogrel 75 mg tablet (Plavix) 75 mg PO DAILY 08/22/23 Unknown History metoprolol succinate 25 mg 25 mg PO BID 08/22/23 Unknown History tablet,extended release 24 hr nitroglycerin 0.4 mg sublingual 0.4 mg sublingual Q5M PRN chest 08/22/23 Unknown History tablet pain dicyclomine 20 mg tablet 20 mg PO Q6H PRN abdominal 10/07/24 Unknown Rx cramping #20 tabs fenofibrate nanocrystallized 145 145 mg PO DAILY 07/10/24 Unknown History mg tablet lisinopril 40 mg tablet 40 mg PO DAILY 07/10/24 Unknown History pantoprazole 40 mg tablet,delayed 40 mg PO DAILY 09/02/24 Unknown History release trazodone 100 mg tablet 100 mg PO QHS 09/02/24 Unknown History Allergy/AdvReac Type Severity Reaction Status Date / Time Penicillins (PCN) Allergy Severe Rash Verified 10/03/24 14:46 sertraline (From Zoloft) Allergy Severe Other Verified 10/03/24 14:46 meloxicam (From Mobic) Allergy Mild Itching Verified 10/03/24 14:46 nitrofurantoin (From AdvReac Severe Rash Verified 10/03/24 14:46 Macrobid) Family History Mother Heart disease Father Heart disease Surgical History S/P primary angioplasty with coronary stent History of repair of hiatal hernia History of cholecystectomy Social History household members: spouse Smoking Status: Current every day smoker tobacco type: cigars per week: 28 alcohol intake: never details: Denies alcohol use and history of pancreatitis substance use type: does not use ROS ROS ED ROS Narrative Constitutional: No fever, no chills. HEENT: No sore throat. No neck pain. No loss of vision. No rhinorrhea. Cardiovascular: Positive chest pain. Positive palpitations. No pedal edema. Respiratory: No cough, no shortness of breath. Abdominal: No abdominal pain. Positive nausea. No vomiting. Genitourinary: No dysuria. No hematuria. Musculoskeletal: No myalgias. No arthralgias. Neurologic: No headaches. No dizziness. Positive lightheadedness. EXAM Physical Exam Narrative Exam Narrative: Afebrile. Vital signs noted. HEENT: Normocephalic. Atraumatic. PERRL, EOMI. Neck soft and supple. No point tenderness or step off. Cardiovascular: Regular rate and rhythm with intermittent tachycardia. Respiratory: No tachypnea. Lungs clear to auscultation bilaterally. Gastrointestinal: Abdomen soft, nontender, with normoactive bowel sounds. No rebound or guarding. Neurological: Awake. Alert. Nonfocal, nonlateralizing. Skin: No rash. Normal color. No pallor. Musculoskeletal: No pedal edema. Full range of motion extremities. Const Vital Signs: 10/03/24 14:46 10/03/24 14:52 10/03/24 15:05 Temperature 98.5 F Temperature Source Oral Pulse Rate 105 H Respiratory Rate 16 Respiratory Effort Normal Non-Labored Blood Pressure 140/93 H Blood Pressure Mean 108 Pulse Ox 99 Oxygen Delivery Method Room Air Room Air 10/03/24 15:46 10/03/24 16:23 10/03/24 17:00 Temperature Temperature Source Pulse Rate 75 85 81 Respiratory Rate 16 16 12 Respiratory Effort Blood Pressure 125/85 H 119/76 121/82 H Blood Pressure Mean 98 90 95 Pulse Ox 95 96 96 Oxygen Delivery Method Room Air Room Air Room Air 10/03/24 17:32 Temperature 98.2 F Temperature Source Pulse Rate 83 Respiratory Rate 16 Respiratory Effort Blood Pressure 124/85 H Blood Pressure Mean 98 Pulse Ox 99 Oxygen Delivery Method Heart Score History: Slightly/Non-Suspicious ECG: Normal Risk Factors: >/= 3 Risk Factors or History of CAD Score: 2 MDM MDM MDM Narrative Medical decision making narrative: Differential diagnosis includes but not limited to ACS versus pneumonia versus pneumothorax versus pulmonary embolism. I have very low suspicion for pulmonary embolism because his pain is intermittent and he is not hypoxic at 99% on room air. EKG was obtained and interpreted by myself independently as sinus tachycardia at 103 bpm without ectopy or acute ST changes. No STEMI. Patient was administered an aspirin 162 mg orally. Chest pain workup was pursued. No feel he needs a D-dimer, and I have low suspicion for CHF based on his physical examination and weight loss. I reviewed his laboratory work, and he has normal white count of 10.1, hemoglobin stable at 12.1 with hematocrit 35.5, platelet count normal at 412. Electrolyte panel shows mild hyponatremia at 133 but has had this in the past when compared to prior laboratories. Potassium normal 3.6, BUN 10 and creatinine 1.10, no signs of dehydration. Glucose elevated at 153 but normal anion gap of 6. Magnesium slightly low at 1.2. This was replaced orally. BNP is normal at 24 so I doubt CHF. Initial high-sensitivity troponin is 6 with repeat at 8 for an acceptable delta troponin. Chest x-ray in 1 view interpreted by myself independently shows no pneumothorax or pneumonia. I reviewed the radiology report which confirms my independent interpretation. I do feel there may be slight anxiety component related to his chest pain and palpitations. He was reassured. I feel he can be discharged safely home with follow-up. Patient is agreeable to the plan. Return instructions to the emergency department were reviewed. Disposition is discharged home in stable condition. History & Record Review Discussion w/independent historian: Patient Lab Data Attestation: I reviewed the patient's lab results. Labs: Laboratory Results - last 24 hr 10/03/24 10/03/24 14:55 16:53 WBC 10.1 RBC 4.13 L Hgb 12.1 L Hct 35.5 L MCV 86.0 MCH 29.3 MCHC 34.1 RDW Std Deviation 49.2 H RDW Coeff of Florencio 15.8 H Plt Count 412 MPV 8.9 Immature Gran % (Auto) 0.600 Neut % (Auto) 68.5 Lymph % (Auto) 21.1 [place] % (Auto) 6.7 Eos % (Auto) 2.6 Baso % (Auto) 0.5 Absolute Neuts (auto) 6.9 Absolute Lymphs (auto) 2.12 Nucleated RBC % 0 Sodium 133 L Potassium 3.6 Chloride 105 Carbon Dioxide 22.0 Anion Gap 6 BUN 10 Creatinine 1.10 Estim Creat Clear Calc 68.21 Est GFR (MDRD) Af Amer 86 Est GFR (MDRD) Non-Af 71 BUN/Creatinine Ratio 9.1 L Glucose 153 H Calcium 8.9 Magnesium 1.2 L Troponin I High Sens 6 8 B-Natriuretic Peptide 24.1 Radiography Chest X-Ray - ED: 1 View Diagnostic Testing: Clinical Impression(s) from Imaging Studies Chest X-Ray 10/03/24 15:00 IMPRESSION: No acute cardiopulmonary process identified. Electronically Signed: Kendy Carrera MD at 15:18 EST , Discharge Plan Triage Chief Complaint: Chest Pain ED Provider: Dada Chung Dx/Rx/DC Orders Clinical Impression: Chest pain, Palpitations Instructions: ED Chest Pain, Uncertain Cause, ED Palpitations Prescriptions: No Action clopidogrel [Plavix] 75 mg tablet 75 mg PO DAILY metoprolol succinate 25 mg tablet extended release 24 hr 25 mg PO BID nitroglycerin 0.4 mg tablet, sublingual 0.4 mg sublingual Q5M PRN (Reason: chest pain) Rx Instructions: do not exceed 3 doses per episode acetaminophen [Tylenol Extra Strength] 500 mg tablet 500 mg PO Q6H PRN (Reason: pain) atorvastatin 40 mg Tablet 40 mg PO DAILY citalopram 40 mg Tablet 40 mg PO DAILY sucralfate 1 gram Tablet 1 g PO 4X/DAY amlodipine 10 mg Tablet 10 mg PO DAILY aspirin 81 mg Tablet,Chewable 81 mg PO DAILY fenofibrate 120 mg Tablet 145 mg PO DAILY dicyclomine 20 mg tablet 20 mg PO Q6H PRN (Reason: abdominal cramping) Qty: 20 0RF lisinopril 40 mg tablet 40 mg PO DAILY fenofibrate nanocrystallized 145 mg tablet 145 mg PO DAILY trazodone 100 mg tablet 100 mg PO QHS pantoprazole 40 mg tablet,delayed release (DR/EC) 40 mg PO DAILY Primary Care Provider: Arias Lemus Referrals: Arias Lemus DO [Primary Care Provider] - 3-5 Days Wai Katz MD [Med Staff - Active Staff] - As soon as possible Activity Restrictions/Additional Instructions: Return with increased pain, new or worsening symptoms. Print Language: [place] Disposition Disposition: Home, Self Care
--- NOTE | 2024-10-03 15:00 | RAD_ITS ---
HISTORY: chest pain. TECHNIQUE: XR Chest 1 View. COMPARISON: None. FINDINGS: CARDIOMEDIASTINAL BORDERS: Cardiac silhouette within normal limits in size. Mediastinal contour unremarkable calcification of the aortic knob. LUNGS: Radiographically clear. PLEURA: No pleural effusion or pneumothorax seen. OSSEOUS STRUCTURES: Mild degenerative change. RAD/Chest 1 View (Portable) IMPRESSION: No acute cardiopulmonary process identified. Electronically Signed: Kendy Carrera MD at 15:18 EST ,
[2024-10-03 15:05] LABS: Absolute Lymphocyte Count 2.12 X10^3/uL (0.83-4.51); Absolute Neutrophil Count 6.9 X10^3/uL (2.0-7.7); Basophil# 0.05 X10^3/uL; Basophil% 0.5 % (0-1); Eosinophil# 0.26 X10^3/uL; Eosinophils% 2.6 % (0-5); Hematocrit 35.5 % (40-54); Hemoglobin 12.1 g/dL (13.0-16.5); Lymphocyte # 2.12 X10^3/ul (0.83-4.51); Lymphocyte % 21.1 % (19-41); Mean Corp Hgb Conc 34.1 g/dL (32-36); Mean Corpuscular Hgb 29.3 pg (27.0-32.0); Mean Platelet Vol. 8.9 fl (6.2-12.0); Monocyte# 0.67 X10^3/uL; Monocyte% 6.7 % (0-10); NRBC Flagged by Analyzer 0 % (0-5); Neutrophil # 6.91 X10^3/uL (2.7-7.7); Neutrophil % 68.5 % (47-70); Platelet Count 412 K/mm3 (150-450); RBC Distribution Width CV 15.8 % (11.6-14.6); RBC Distribution Width SD 49.2 fl (35.1-43.9); Red Blood Count 4.13 M/mm3 (4.6-6.2); White Blood Count 10.1 K/mm3 (4.4-11.0)
[2024-10-03] MEDS: Aspirin 81 MG TAB.CHEW 162 MG PO (15:09)
[2024-10-03 15:41] LABS: Anion Gap 6 (5-15); BUN 10 mg/dL (7-18); BUN/Creat Ratio 9.1 RATIO (10-20); Calcium,Total 8.9 mg/dL (8.5-10.1); Chloride 105 mmol/L (98-107); EST Glomerular Filtration Rate 71 mL/min (>60); Est Glom Filt Rate - Afr Amer 86 mL/min (>60); Estimated Creatinine Clearance 68.21 ml/min; Glucose 153 mg/dL (74-106); Magnesium 1.2 mg/dL (1.6-2.6); Potassium 3.6 mmol/L (3.5-5.1); Sodium Level 133 mmol/L (136-145); Troponin-I HS (w/2H Reflex) 6 pg/mL (3.0-78.0)
[2024-10-03 15:42] LABS: BNP,B-Type NATRIURETIC PEPTIDE 24.1 pg/mL (0-100)
[2024-10-03 15:46] VITALS: BP 125/85; PULSE 75; RESP 16; O2SAT 95
[2024-10-03 16:23] VITALS: BP 119/76; PULSE 85; RESP 16; O2SAT 96
[2024-10-03 17:00] VITALS: BP 121/82; PULSE 81; RESP 12; O2SAT 96
[2024-10-03 17:01] LABS: Reflex Troponin-HS? (from REC) Y
[2024-10-03 17:25] LABS: Troponin-I HS 8 pg/mL (3.0-78.0)
[2024-10-03 17:32] VITALS: BP 124/85; PULSE 83; RESP 16; TEMP 36.8; O2SAT 99
[2024-10-03] MEDS: Magnesium Chloride 64 MG Delay Rel.Tablet 128 MG PO (18:04)
== END 2024-10-03 18:06 | disposition home or self-care (01) ==
PROVIDERS: Emergency Provider Emergency Medicine; PCP Family Medicine; Visit Provider Emergency Medicine
DX: R07.9 Chest pain, unspecified (principal); R00.2 Palpitations; E83.42 Hypomagnesemia; I10 Essential (primary) hypertension; I25.10 Atherosclerotic heart disease of native coronary artery without angina pectoris; I25.2 Old myocardial infarction; E78.5 Hyperlipidemia, unspecified; F17.290 Nicotine dependence, other tobacco product, uncomplicated; Z95.5 Presence of coronary angioplasty implant and graft; Z79.02 Long term (current) use of antithrombotics/antiplatelets; Z79.82 Long term (current) use of aspirin; Z79.899 Other long term (current) drug therapy
CPT/HCPCS: 71045; 80048; 83735; 83880; 84484; 85025; 93005; 99284; A4216

== ENCOUNTER 2024-10-16 12:52 | Emergency (ER) | payer MEDICARE, SELFPAY ==
[2024-10-16 12:53] VITALS: BP 160/99; PULSE 104; RESP 15; TEMP 36.6; O2SAT 97; BMI 25.4
[2024-10-16] MEDS: 0.9% Normal Saline (1000mL) 1,000 ML 999 ML IV ×2 (13:05→15:17)
--- NOTE | 2024-10-16 13:08 | EDS_ITS ---
HPI <LINDA Caballero - Last Filed: 10/16/24 15:11> History of Present Illness Chief Complaint: Abd Pain Narrative Narrative: Patient is a 64-year-old male with history of second vomiting syndrome, CAD who presents to the emerged department for abdominal pain that started around 6 in the morning. Patient has been here before for this. Patient was last admitted in August 2024. Patient dates he has abdominal pain, nausea and vomiting. This consistent with his cyclic vomiting. Patient denies any fever chills. Denies any chest pain, denies any blood in stool or vomit. PFSH <LINDA Caballero - Last Filed: 10/16/24 15:11> [facility] Medical History B12 nutritional deficiency Claustrophobia Mild cognitive impairment Tobacco use HLD (hyperlipidemia) HTN (hypertension) Right adrenal mass History of kidney stones History of seizure Cyclic vomiting syndrome Hiatal hernia Heart attack Home Medications ?Medication ?Instructions ?Recorded ?Last Taken ?Type amlodipine 10 mg tablet 10 mg PO DAILY 11/11/22 Unknown History aspirin 81 mg chewable tablet 81 mg PO DAILY 11/11/22 Unknown History atorvastatin 40 mg tablet 40 mg PO DAILY 11/11/22 Unknown History citalopram 40 mg tablet 40 mg PO DAILY 11/11/22 Unknown History fenofibrate 120 mg tablet 145 mg PO DAILY 11/11/22 Unknown History sucralfate 1 gram tablet 1 g PO 4X/DAY 11/11/22 Unknown History acetaminophen 500 mg tablet 500 mg PO Q6H PRN pain 08/22/23 Unknown History (Tylenol Extra Strength) clopidogrel 75 mg tablet (Plavix) 75 mg PO DAILY 08/22/23 Unknown History metoprolol succinate 25 mg 25 mg PO BID 08/22/23 Unknown History tablet,extended release 24 hr nitroglycerin 0.4 mg sublingual 0.4 mg sublingual Q5M PRN chest 08/22/23 Unknown History tablet pain dicyclomine 20 mg tablet 20 mg PO Q6H PRN abdominal 06/30/24 Unknown Rx cramping #20 tabs fenofibrate nanocrystallized 145 145 mg PO DAILY 07/10/24 Unknown History mg tablet lisinopril 40 mg tablet 40 mg PO DAILY 07/10/24 Unknown History pantoprazole 40 mg tablet,delayed 40 mg PO DAILY 09/02/24 Unknown History release trazodone 100 mg tablet 100 mg PO QHS 09/02/24 Unknown History Allergy/AdvReac Type Severity Reaction Status Date / Time Penicillins (PCN) Allergy Severe Rash Verified 10/03/24 14:46 sertraline (From Zoloft) Allergy Severe Other Verified 10/03/24 14:46 meloxicam (From Mobic) Allergy Mild Itching Verified 10/03/24 14:46 nitrofurantoin (From AdvReac Severe Rash Verified 10/03/24 14:46 Macrobid) Family History Mother Heart disease Father Heart disease Surgical History S/P primary angioplasty with coronary stent History of repair of hiatal hernia History of cholecystectomy Social History household members: spouse Smoking Status: Current every day smoker tobacco type: cigars per week: 28 alcohol intake: never details: Denies alcohol use and history of pancreatitis substance use type: does not use ROS <LINDA Caballero - Last Filed: 10/16/24 15:11> ROS ED ROS Narrative Constitutional: Negative for fever, chills, weight loss, weakness Eyes: Negative for vision loss, vision change, double vision ENT: Negative for any sore throat, ear pain, congestion Cardiovascular: Negative for any chest pain, tightness, palpitations Respiratory: Negative for any cough, sputum production, hemoptysis, dyspnea, dyspnea on exertion, orthopnea Gastrointestinal: Negative for any diarrhea, constipation, blood in stool, blood in vomit. Positive for abdominal pain, nausea and vomiting : Negative for any urinary frequency, dysuria, retention, blood in urine Muscle skeletal: Negative for any neck pain, back pain Neurological: Negative for any headache, syncope, dizziness Skin: Negative for any rashes, itching, abrasions, lacerations Psychiatric: Negative for any depression, anxiety, stress, suicidal ideation, homicidal ideation Hematologic: Negative for any excessive bruising, easy bleeding EXAM <LINDA Caballero - Last Filed: 10/16/24 15:11> Physical Exam Narrative Exam Narrative: Vital signs reviewed. Patient was grunting, and moving his lower extremities throughout my entire evaluation. HEET: Head normocephalic atraumatic, TMs clear bilaterally. Posterior pharynx is clear, moist mucous membranes. Nares clear bilaterally. Neck: Supple with no lymphadenopathy or tenderness. No signs of meningismus. Cardiac: Regular rate and rhythm no murmurs gallops or rubs, equal peripheral pulses bilaterally. Respiratory: Lungs clear to auscultation bilaterally. No chest tenderness. Abdomen: Soft, nontender, nondistended. No abdominal bruit or pulsatile masses. No hepatosplenomegaly Extremities: No peripheral edema, no signs of gross trauma or deformity. Active full range of motion of all extremities. Neuro: Cranial nerves II through XII intact, no focal neurological deficits. Skin: Clean dry and intact with no rash, purpura, petechiae, vesicles or pustules. Backs/flank: No CVA tenderness, no midline spinal tenderness, no deformity. Psych: Normal mood and affect. No SI, HI or acute psychosis. Const Vital Signs: 10/16/24 12:53 10/16/24 14:00 Temperature 98 F Temperature Source Oral Pulse Rate 104 H 93 Respiratory Rate 15 25 H Blood Pressure 160/99 H 135/63 H Blood Pressure Mean 119 85 Pulse Ox 97 95 Oxygen Delivery Method Room Air Positive unkempt General Appearance ED: unkempt Psych Appearance: unkempt <Dr. Truong Cooper DO - Last Filed: 10/16/24 15:06> Physical Exam Const Vital Signs: 10/16/24 12:53 10/16/24 14:00 Temperature 98 F Temperature Source Oral Pulse Rate 104 H 93 Respiratory Rate 15 25 H Blood Pressure 160/99 H 135/63 H Blood Pressure Mean 119 85 Pulse Ox 97 95 Oxygen Delivery Method Room Air MDM <LINDA Caballero - Last Filed: 10/16/24 15:11> [facility] Lab Data Labs: Laboratory Results - last 24 hr 10/16/24 13:07 WBC 20.3 H RBC 4.40 L Hgb 12.7 L Hct 37.7 L MCV 85.7 MCH 28.9 MCHC 33.7 RDW Std Deviation 48.6 H RDW Coeff of Florencio 15.5 H Plt Count 504 H MPV 8.9 Immature Gran % (Auto) 0.800 Neut % (Auto) 92.3 H Lymph % (Auto) 3.3 L [place] % (Auto) 3.3 Eos % (Auto) 0.1 Baso % (Auto) 0.2 Absolute Neuts (auto) 18.7 H Absolute Lymphs (auto) 0.67 L Nucleated RBC % 0 Sodium 132 L Potassium 3.6 Chloride 103 Carbon Dioxide 15.0 L Anion Gap 14 BUN 10 Creatinine 1.08 Estim Creat Clear Calc 69.47 Est GFR (MDRD) Af Amer 88 Est GFR (MDRD) Non-Af 73 BUN/Creatinine Ratio 9.3 L Glucose 178 H Calcium 9.8 Total Bilirubin 0.40 AST 21 ALT 18 Alkaline Phosphatase 56 Total Protein 7.7 Albumin 4.1 Globulin 3.6 Albumin/Globulin Ratio 1.1 Lipase 36 Treatment and Re-Evaluation :: Differential diagnosis includes however is not limited to: Acute on chronic abdominal pain, acute cyclic vomiting syndrome, bowel obstruction, viral gastroenteritis, dehydration, electrolyte abnormality Patient does appear to not feel well, patient is constantly moaning, moving around the bed. Vital signs are stable. Presenting to the emergency department for ongoing abdominal pain, cyclic vomiting syndrome which she has had in the past. Patient will receive some basic laboratory values including CBC CMP lipase, patient will also receive IV fluids, a commendation of Benadryl and Thorazine. Patient will need to be reevaluated. On reevaluation, the patient was sleeping, I did wake the patient up. Patient states he was feeling improvement however did have some still nausea. Patient CBC did show a leukocytosis with a white blood count 20.3, his symptoms this is a constant elevation when the patient comes in for these abdominal pain vomiting episodes. Patient's hemoglobin is stable. Chemistries are unremarkable, glucose 178, lipase was negative. At this time, do not believe the patient needs any advanced imaging. Patient's repeat abdominal exam was unremarkable. Patient is mostly sore from vomiting. Patient be given IV Zofran prior to discharge. Instructed to follow-up outpatient. All questions were answered, patient struck to return for any worsening symptoms. I have personally performed a face to face assessment of the patient and have reviewed the FRANCA Note. I performed a substantive portion of the visit including all aspects of the following. My interiano findings include: History is 64-year-old male history of cyclic vomiting syndrome presented to the emergency room for.. Patient with multiple visits for this in the past in which she is demonstrated a propensity to have leukocytosis. He states this is very similar to his prior symptomology. Exam is patient is moaning retching moving around the bed. There are normal bowel sounds. Medical Decison Making basic blood work shows a leukocytosis. CO2 level 15 glucose of 78. Patient received IV fluids like Thorazine and Benadryl as well as Zofran and Toradol. He is resting more comfortably. Patient will be reevaluated and discharged once improved <Dr. Truong Cooper, DO - Last Filed: 10/16/24 15:06> [facility] History & Record Review Discussion w/independent historian: Patient Additional record(s) reviewed:: Prior ED visit and Prior labs Lab Data Attestation: I reviewed the patient's lab results. Labs: Laboratory Results - last 24 hr 10/16/24 13:07 WBC 20.3 H RBC 4.40 L Hgb 12.7 L Hct 37.7 L MCV 85.7 MCH 28.9 MCHC 33.7 RDW Std Deviation 48.6 H RDW Coeff of [place] 15.5 H Plt Count 504 H MPV 8.9 Immature Gran % (Auto) 0.800 Neut % (Auto) 92.3 H Lymph % (Auto) 3.3 L [place] % (Auto) 3.3 Eos % (Auto) 0.1 Baso % (Auto) 0.2 Absolute Neuts (auto) 18.7 H Absolute Lymphs (auto) 0.67 L Nucleated RBC % 0 Sodium 132 L Potassium 3.6 Chloride 103 Carbon Dioxide 15.0 L Anion Gap 14 BUN 10 Creatinine 1.08 Estim Creat Clear Calc 69.47 Est GFR (MDRD) Af Amer 88 Est GFR (MDRD) Non-Af 73 BUN/Creatinine Ratio 9.3 L Glucose 178 H Calcium 9.8 Total Bilirubin 0.40 AST 21 ALT 18 Alkaline Phosphatase 56 Total Protein 7.7 Albumin 4.1 Globulin 3.6 Albumin/Globulin Ratio 1.1 Lipase 36 Treatment and Re-Evaluation :: Differential diagnosis includes however is not limited to: Acute on chronic abdominal pain, acute cyclic vomiting syndrome, bowel obstruction, viral gastroenteritis, dehydration, electrolyte abnormality Patient does appear to not feel well, patient is constantly moaning, moving around the bed. Vital signs are stable. Presenting to the emergency department for ongoing abdominal pain, cyclic vomiting syndrome which she has had in the past. Patient will receive some basic laboratory values including CBC CMP lipase, patient will also receive IV fluids, a commendation of Benadryl and Thorazine. Patient will need to be reevaluated. I have personally performed a face to face assessment of the patient and have reviewed the FRANCA Note. I performed a substantive portion of the visit including all aspects of the following. My interiano findings include: History is 64-year-old male history of cyclic vomiting syndrome presented to the emergency room for.. Patient with multiple visits for this in the past in which she is demonstrated a propensity to have leukocytosis. He states this is very similar to his prior symptomology. Exam is patient is moaning retching moving around the bed. There are normal bowel sounds. Medical Decison Making basic blood work shows a leukocytosis. CO2 level 15 glucose of 78. Patient received IV fluids like Thorazine and Benadryl as well as Zofran and Toradol. He is resting more comfortably. Patient will be reevaluated and discharged once improved Discharge Plan Triage Chief Complaint: Abd Pain ED Midlevel Provider: Trey Ritchie ED Provider: Truong Cooper Dx/Rx/DC Orders Clinical Impression: Cyclic vomiting syndrome Instructions: ED Cyclic Vomiting Syndrome Prescriptions: No Action clopidogrel [Plavix] 75 mg tablet 75 mg PO DAILY metoprolol succinate 25 mg tablet extended release 24 hr 25 mg PO BID nitroglycerin 0.4 mg tablet, sublingual 0.4 mg sublingual Q5M PRN (Reason: chest pain) Rx Instructions: do not exceed 3 doses per episode acetaminophen [Tylenol Extra Strength] 500 mg tablet 500 mg PO Q6H PRN (Reason: pain) atorvastatin 40 mg Tablet 40 mg PO DAILY citalopram 40 mg Tablet 40 mg PO DAILY sucralfate 1 gram Tablet 1 g PO 4X/DAY amlodipine 10 mg Tablet 10 mg PO DAILY aspirin 81 mg Tablet,Chewable 81 mg PO DAILY fenofibrate 120 mg Tablet 145 mg PO DAILY dicyclomine 20 mg tablet 20 mg PO Q6H PRN (Reason: abdominal cramping) Qty: 20 0RF lisinopril 40 mg tablet 40 mg PO DAILY fenofibrate nanocrystallized 145 mg tablet 145 mg PO DAILY trazodone 100 mg tablet 100 mg PO QHS pantoprazole 40 mg tablet,delayed release (/EC) 40 mg PO DAILY Primary Care Provider: Arias Lemus Referrals: Arias Lemus, [Primary Care Provider] - Activity Restrictions/Additional Instructions: Please follow-up outpatient. Print Language: Stateless Disposition Disposition: Home, Self Care
[2024-10-16 13:15] LABS: Absolute Lymphocyte Count 0.67 X10^3/uL (0.83-4.51); Absolute Neutrophil Count 18.7 X10^3/uL (2.0-7.7); Basophil# 0.04 X10^3/uL; Basophil% 0.2 % (0-1); Eosinophil# 0.03 X10^3/uL; Eosinophils% 0.1 % (0-5); Hematocrit 37.7 % (40-54); Hemoglobin 12.7 g/dL (13.0-16.5); Lymphocyte # 0.67 X10^3/ul (0.83-4.51); Lymphocyte % 3.3 % (19-41); Mean Corp Hgb Conc 33.7 g/dL (32-36); Mean Corpuscular Hgb 28.9 pg (27.0-32.0); Mean Corpuscular Volume 85.7 fL (80-94); Mean Platelet Vol. 8.9 fl (6.2-12.0); Monocyte# 0.67 X10^3/uL; Monocyte% 3.3 % (0-10); NRBC Flagged by Analyzer 0 % (0-5); Neutrophil # 18.74 X10^3/uL (2.7-7.7); Neutrophil % 92.3 % (47-70); Platelet Count 504 K/mm3 (150-450); RBC Distribution Width CV 15.5 % (11.6-14.6); RBC Distribution Width SD 48.6 fl (35.1-43.9); White Blood Count 20.3 K/mm3 (4.4-11.0)
[2024-10-16 13:36] LABS: ALB/GLOB Ratio 1.1 RATIO (0.9-2.4); AST(SGOT) 21 U/L (15-37); Alanine Aminotransfer ALT/SGPT 18 U/L (16-61); Albumin, Serum 4.1 g/dL (3.2-5.0); Alkaline Phosphatase 56 U/L (45-117); Anion Gap 14 (5-15); BUN 10 mg/dL (7-18); BUN/Creat Ratio 9.3 RATIO (10-20); Calcium,Total 9.8 mg/dL (8.5-10.1); Chloride 103 mmol/L (98-107); Creatinine, Serum 1.08 mg/dL (0.70-1.30); EST Glomerular Filtration Rate 73 mL/min (>60); Est Glom Filt Rate - Afr Amer 88 mL/min (>60); Estimated Creatinine Clearance 69.47 ml/min; Globulin 3.6 g/dL (2.2-4.2); Glucose 178 mg/dL (74-106); Lipase 36 U/L (13-75); Potassium 3.6 mmol/L (3.5-5.1); Protein, Total 7.7 g/dL (6.4-8.2); Sodium Level 132 mmol/L (136-145)
[2024-10-16] MEDS: DiphenhydrAMINE 50 MG, ChlorproMAZINE IM 50 MG in 0.9% Normal Saline (250mL Bag) 250 ML 253 MG IV (13:39)
[2024-10-16 14:00] VITALS: BP 135/63; PULSE 93; RESP 25; O2SAT 95
[2024-10-16] MEDS: Ketorolac 15 MG/ML Vial IV (14:12)
[2024-10-16] MEDS: Ondansetron 4 MG/2 ML Vial IV (15:17)
[2024-10-16 15:29] VITALS: BP 130/67; PULSE 93; RESP 16; TEMP 36.6; O2SAT 95
== END 2024-10-16 16:49 | disposition home or self-care (01) ==
PROVIDERS: Nurse Practitioner; Emergency Provider Emergency Medicine; PCP Family Medicine; Referring Provider Emergency Medicine; Visit Provider Emergency Medicine
DX: R11.15 Cyclical vomiting syndrome unrelated to migraine (principal); I25.10 Atherosclerotic heart disease of native coronary artery without angina pectoris; I25.2 Old myocardial infarction
CPT/HCPCS: 80053; 83690; 85025; 96361; 96365; 96366; 96375; 99285; A4216; J2405

== ENCOUNTER 2024-10-17 02:41 | Observation (INO) | payer MEDICARE, SELFPAY ==
[2024-10-17] VITALS (10 sets, daily range): BP systolic 144–183; BP diastolic 54–111; PULSE 72–119; RESP 16–18; TEMP 36.6–37.3; O2SAT 95–98; BMI 24.2; BMI 24.3
--- NOTE | 2024-10-17 02:54 | CT_ITS ---
INDICATION: upper gi bleed EXAMINATION: CTA Abdomen and Pelvis W/ Contrast Injection TECHNIQUE: Helically acquired images were obtained of the abdomen and pelvis with sagittal and coronal reconstructed images. Three-D reconstructed images were reviewed. Individualized dose optimization techniques were used for this CT. IV contrast dosage and agent: 100 mL of Isovue-370. Oral contrast: None. COMPARISON: 09/02/2024 CT. FINDINGS: VESSELS: No abdominal aortic aneurysm or dissection. LIVER: Ill-defined hyperattenuating lesion in the inferior tip of the liver, not seen on previous CTs, likely representing a flash filling hemangioma on this early arterial phase CT. Stable dilation of the common duct likely representing postcholecystectomy change. No intrahepatic duct dilation. GALLBLADDER: Status post cholecystectomy. PANCREAS: No focal solid or cystic mass. No evidence of pancreatitis. SPLEEN: Splenic calcifications consistent with benign old granulomatous disease. ADRENAL GLANDS: Stable thickening of the adrenal glands and right adrenal gland adenoma. KIDNEYS AND URETERS: No urinary tract stone. No hydronephrosis or hydroureter. No significant asymmetric perinephric stranding. Numerous bilateral renal cysts, stable as compared through 12/06/2022, with no follow-up recommended. URINARY BLADDER: Unremarkable. BOWEL: No evidence of diverticulosis or diverticulitis. Appendix appears normal. No evidence of bowel obstruction. REPRODUCTIVE ORGANS: No evidence of a pelvic mass. PERITONEUM: No intraabdominal free fluid or free air. LYMPH NODES: No pathologically enlarged mesenteric or retroperitoneal lymph nodes. ABDOMINAL WALL: No abdominal or pelvic wall hernia. BONES: No acute abnormality. LOWER CHEST: Visualized lung bases are unremarkable. Small hiatal hernia. CT/CTA Abd/Pelvis W/WO Contrast IMPRESSION: No acute abnormality. No evidence of a gastrointestinal bleed. Electronically Signed: Jorge Oneill DO at 4:59 EST ,
--- NOTE | 2024-10-17 02:56 | EX.ED.DYSGE1 ---
HPI History of Present Illness Chief Complaint: Nausea/Vomiting Narrative Narrative: Patient is a 64-year-old male with past medical history of hyperlipidemia, hypertension, seizure, hiatal hernia, B12 deficiency who presented to the emergency department with a chief complaint of nausea vomiting and abdominal pain. Patient states that around 12:30 AM this morning he started vomiting blood. He states that the past few days his stools have been black in nature. He states that he does take a ibuprofen daily for pain control. Patient states he has had an ulcer in the past but states that there was no surgical interventions done at that point time. Patient states that he was here earlier today was given medications and he states that these made him fall asleep and he was ultimately sent home. Patient rates his pain 8 out of 10. [facility] Medical History B12 nutritional deficiency Claustrophobia Mild cognitive impairment Tobacco use HLD (hyperlipidemia) HTN (hypertension) Right adrenal mass History of kidney stones History of seizure Cyclic vomiting syndrome Hiatal hernia Heart attack Home Medications ?Medication ?Instructions ?Recorded ?Last Taken ?Type amlodipine 10 mg tablet 10 mg PO DAILY 11/11/22 Unknown History aspirin 81 mg chewable tablet 81 mg PO DAILY 11/11/22 Unknown History atorvastatin 40 mg tablet 40 mg PO DAILY 11/11/22 Unknown History citalopram 40 mg tablet 40 mg PO DAILY 11/11/22 Unknown History fenofibrate 120 mg tablet 145 mg PO DAILY 11/11/22 Unknown History sucralfate 1 gram tablet 1 g PO 4X/DAY 11/11/22 Unknown History acetaminophen 500 mg tablet 500 mg PO Q6H PRN pain 08/22/23 Unknown History (Tylenol Extra Strength) clopidogrel 75 mg tablet (Plavix) 75 mg PO DAILY 08/22/23 Unknown History metoprolol succinate 25 mg 25 mg PO BID 08/22/23 Unknown History tablet,extended release 24 hr nitroglycerin 0.4 mg sublingual 0.4 mg sublingual Q5M PRN chest 08/22/23 Unknown History tablet pain dicyclomine 20 mg tablet 20 mg PO Q6H PRN abdominal 06/30/24 Unknown Rx cramping #20 tabs lisinopril 40 mg tablet 40 mg PO DAILY 07/10/24 Unknown History pantoprazole 40 mg tablet,delayed 40 mg PO DAILY 09/02/24 Unknown History release trazodone 100 mg tablet 100 mg PO QHS 09/02/24 Unknown History Allergy/AdvReac Type Severity Reaction Status Date / Time Penicillins (PCN) Allergy Severe Rash Verified 10/03/24 14:46 sertraline (From Zoloft) Allergy Severe Other Verified 10/03/24 14:46 meloxicam (From Mobic) Allergy Mild Itching Verified 10/03/24 14:46 nitrofurantoin (From AdvReac Severe Rash Verified 10/03/24 14:46 Macrobid) Family History Mother Heart disease Father Heart disease Surgical History S/P primary angioplasty with coronary stent History of repair of hiatal hernia History of cholecystectomy Social History household members: spouse Smoking Status: Current every day smoker tobacco type: cigars per week: 28 alcohol intake: never details: Denies alcohol use and history of pancreatitis substance use type: does not use ROS ROS ED ROS Narrative Constitutional: Denies any fevers, chills, headaches, lightness, dizziness Cardiovascular: Denies chest pain or palpitations Respiratory: Denies coughing wheezing shortness of breath Abdomen: Complains of abdominal pain and vomiting dark red blood is noted above that started at 12:30 AM this morning as well as dark stools : Denies any urinary symptoms Neurological: Denies numbness, weakness, tingling Skin: Denies any rashes or lesions EXAM Physical Exam Narrative Exam Narrative: General: Patient was lying in bed did appear to be uncomfortable secondary to his abdominal pain Head: Atraumatic, normocephalic Eyes: PERRL bilaterally, EOMI bilateral no conjunctival injection noted Neck: Soft, supple, trachea midline Cardiovascular: Patient was noted be tachycardic with a regular rhythm no murmurs gallops rubs noted Respiratory: Clear to auscultation bilaterally no rales rhonchi or wheezes noted Abdomen: Soft, nondistended, diffuse tenderness to palpation no rebound or guarding on exam Extremities: +5/5 strength noted in the bilateral upper and lower extremities, radial pulses +2/4 in the bilateral per extremities Neurological: Patient following commands knew that he was at [facility] year is 2024 Skin: Warm, dry, intact no rashes or lesions noted Const Vital Signs: 10/17/24 02:43 10/17/24 04:46 10/17/24 05:12 Temperature 98.3 F 98.2 F Temperature Source Oral Pulse Rate 119 H 88 88 Respiratory Rate 18 16 16 Blood Pressure 183/111 H 159/54 H 159/59 H Blood Pressure Mean 135 89 92 Pulse Ox 97 96 96 Oxygen Delivery Method Room Air Room Air MDM MDM MDM Narrative Medical decision making narrative: Patient is a 64-year-old male who presented to the emergency department with a chief complaint of vomiting dark blood that started around 12:30 AM as well as dark tarry stools for the past few days and abdominal pain. On the differential diagnose includes but not limited to Shanna-Jaime tear, peptic ulcer disease, gastritis, bowel obstruction. Once workup is obtained reviewed he will be reevaluated. Patient be given IV fluids, Reglan, morphine, Protonix. Once workup is obtained reviewed he will be reevaluated. Patient's CBC was reviewed and was significant for leukocytosis of 17,000, hemoglobin stable 12.4, platelet count noted to be 458. Patient's sodium was noted to be 136, potassium was 3.6, creatinine normal at 1.14. Patient did have lactic acidosis at 2.4, AST and ALT were 22 and 18 respectively. Patient lipase normal at 32. Patient CT angiography of the abdomen and pelvis reviewed and showed no acute abnormalities no evidence of GI bleed. Patient did test positive fecal occult blood. Given the patient's bounce back and severe abdominal pain with nausea and hematemesis will discuss case with hospitalist for admission for upper GI bleed likely secondary to gastritis from NSAID use with intractable abdominal pain nausea and vomiting. Discussed case with hospitalist Dr. Orozco who will accept patient for admission. Patient was notified is agreeable this plan all question concerns answered. Patient be given another 4 mg of IV morphine as he is still having abdominal pain. Lab Data Labs: Laboratory Results - last 24 hr 10/17/24 03:02 WBC 17.6 H RBC 4.20 L Hgb 12.4 L Hct 35.4 L MCV 84.3 MCH 29.5 MCHC 35.0 RDW Std Deviation 47.7 H RDW Coeff of Flore[place]io 15.8 H Plt Count 458 H MPV 9.1 Immature Gran % (Auto) 0.600 Neut % (Auto) 88.1 H Lymph % (Auto) 4.5 L [place] % (Auto) 6.5 Eos % (Auto) 0.2 Baso % (Auto) 0.1 Absolute Neuts (auto) 15.5 H Absolute Lymphs (auto) 0.79 L Nucleated RBC % 0 Sodium 136 Potassium 3.6 Chloride 104 Carbon Dioxide 20.0 L Anion Gap 12 BUN 13 Creatinine 1.14 Estim Creat Clear Calc 65.81 Est GFR (MDRD) Af Amer 83 Est GFR (MDRD) Non-Af 68 BUN/Creatinine Ratio 11.4 Glucose 149 H Lactic Acid 2.4 H* Calcium 10.5 H Total Bilirubin 0.40 AST 22 ALT 18 Alkaline Phosphatase 49 Total Protein 7.5 Albumin 4.0 Globulin 3.5 Albumin/Globulin Ratio 1.1 Lipase 32 Radiography Diagnostic Testing: Clinical Impression(s) from Imaging Studies Abdomen/Pelvis CTA 10/17/24 02:54 IMPRESSION: No acute abnormality. No evidence of a gastrointestinal bleed. Electronically Signed: Jorge Oneill DO at 4:59 EST Reading Location ID and State: [facility] / ID Tel , Service support , Discharge Plan Triage Chief Complaint: Nausea/Vomiting ED Provider: Tarun Jim Dx/Rx/DC Orders Clinical Impression: Abdominal pain, Hematemesis, Upper gastrointestinal bleeding Prescriptions: No Action clopidogrel [Plavix] 75 mg tablet 75 mg PO DAILY metoprolol succinate 25 mg tablet extended release 24 hr 25 mg PO BID nitroglycerin 0.4 mg tablet, sublingual 0.4 mg sublingual Q5M PRN (Reason: chest pain) Rx Instructions: do not exceed 3 doses per episode acetaminophen [Tylenol Extra Strength] 500 mg tablet 500 mg PO Q6H PRN (Reason: pain) atorvastatin 40 mg Tablet 40 mg PO DAILY citalopram 40 mg Tablet 40 mg PO DAILY sucralfate 1 gram Tablet 1 g PO 4X/DAY amlodipine 10 mg Tablet 10 mg PO DAILY aspirin 81 mg Tablet,Chewable 81 mg PO DAILY fenofibrate 120 mg Tablet 145 mg PO DAILY dicyclomine 20 mg tablet 20 mg PO Q6H PRN (Reason: abdominal cramping) Qty: 20 0RF lisinopril 40 mg tablet 40 mg PO DAILY trazodone 100 mg tablet 100 mg PO QHS pantoprazole 40 mg tablet,delayed release (DR/EC) 40 mg PO DAILY Primary Care Provider: Arias Lemus Referrals: Arias Lemus, [Primary Care Provider] - Print Language: Montenegrin Disposition Disposition: Acute Care Hospital [facility]
[2024-10-17] MEDS: 0.9% Normal Saline (1000mL) 1,000 ML 999 ML IV ×2 (03:11→04:52)
[2024-10-17] MEDS: Pantoprazole Sodium 40 MG in 0.9% Normal Saline (100mL MB+) 100 ML 330 MG IV ×3 (03:11→20:38)
[2024-10-17 03:14] LABS: Absolute Lymphocyte Count 0.79 X10^3/uL (0.83-4.51); Absolute Neutrophil Count 15.5 X10^3/uL (2.0-7.7); Basophil# 0.02 X10^3/uL; Basophil% 0.1 % (0-1); Eosinophil# 0.04 X10^3/uL; Eosinophils% 0.2 % (0-5); Hematocrit 35.4 % (40-54); Hemoglobin 12.4 g/dL (13.0-16.5); Lymphocyte # 0.79 X10^3/ul (0.83-4.51); Lymphocyte % 4.5 % (19-41); Mean Corpuscular Hgb 29.5 pg (27.0-32.0); Mean Corpuscular Volume 84.3 fL (80-94); Mean Platelet Vol. 9.1 fl (6.2-12.0); Monocyte# 1.15 X10^3/uL; Monocyte% 6.5 % (0-10); NRBC Flagged by Analyzer 0 % (0-5); Neutrophil # 15.52 X10^3/uL (2.7-7.7); Neutrophil % 88.1 % (47-70); Platelet Count 458 K/mm3 (150-450); RBC Distribution Width CV 15.8 % (11.6-14.6); RBC Distribution Width SD 47.7 fl (35.1-43.9); White Blood Count 17.6 K/mm3 (4.4-11.0)
[2024-10-17] MEDS: Metoclopramide 10 MG/2 ML Vial IV (03:17)
[2024-10-17] MEDS: Morphine 4 MG/ML Syringe IV ×2 (03:17→05:18)
[2024-10-17 03:33] LABS: ALB/GLOB Ratio 1.1 RATIO (0.9-2.4); AST(SGOT) 22 U/L (15-37); Alanine Aminotransfer ALT/SGPT 18 U/L (16-61); Alkaline Phosphatase 49 U/L (45-117); Anion Gap 12 (5-15); BUN 13 mg/dL (7-18); BUN/Creat Ratio 11.4 RATIO (10-20); Calcium,Total 10.5 mg/dL (8.5-10.1); Chloride 104 mmol/L (98-107); Creatinine, Serum 1.14 mg/dL (0.70-1.30); EST Glomerular Filtration Rate 68 mL/min (>60); Est Glom Filt Rate - Afr Amer 83 mL/min (>60); Estimated Creatinine Clearance 65.81 ml/min; Globulin 3.5 g/dL (2.2-4.2); Glucose 149 mg/dL (74-106); Lipase 32 U/L (13-75); Potassium 3.6 mmol/L (3.5-5.1); Protein, Total 7.5 g/dL (6.4-8.2); Sodium Level 136 mmol/L (136-145)
[2024-10-17 03:46] LABS: Lactic Acid 2.4 mmol/L (0.4-1.9)
--- NOTE | 2024-10-17 05:21 | PCM.HP.STD ---
HPI - General General Date of Admission: 10/17/24 Date of Service: 10/17/24 Chief Complaint: Intractable N/V, dark stools HPI Narrative The patient is a 64 y/o M w/ PMHx: Chronic anemia, HTN, HLD, Tobacco use, CAD s/p PCI, Hx cyclic vomiting syndrome, Mild cognitive impairment, GERD who presents to the [facility] ED on 10/17/24 with history of initial evaluation actually earlier in the day 10/16/2024 secondary to history of persistent nausea and vomiting with stools dark over the last 2 to 3 days with abdominal cramping noting that he has been taking ibuprofen daily for pain control with bouts initially starting over the last 24 hours early in the morning. Upon initial ED evaluation 10/16/2024 patient denied any blood in his stool or vomit. Upon reevaluation 10/17/2023 is at that time patient reported dark black stools and blood-streaked emesis which occurred approximately 1230 this a.m. he describes abdominal discomfort as generalized and sharp stabbing 10 out of 10 in severity. He currently notes the stomach discomfort has abated. Workup in the ED included T98.3, heart rate 119, BP 183/111, respiratory rate 18, 97% on room air with most recent repeat vitals heart rate 88, BP 159/54, respiratory rate 16, 96% on room air, CBC with WC 17.6, hemoglobin 12.4, MCV 84.3, platelet 458 with left shift and lymphopenia, CMP with, oxide 20, glucose 149, lactic acid 2.4, calcium 10.5 otherwise not marked appearing, CT abdomen pelvis with contrast with no acute intra-abdominal findings, stool guaiac positive with stools mildly dark appearing but no black upon evaluation. In the ED patient ministered Protonix 40 mg p.o. x 1, morphine 4 mg IV x 2, Reglan 10 mg IV x 1 and 2 L normal saline. Discussed at length that patient given he is on dual antiplatelet therapy for underlying coronary disease should not be taking any kind of NSAID and recommend in the future he take appropriately dosed per the bottle Tylenol. From discussion suspect he been taking inappropriate dosing of ibuprofen. He also reports ongoing cannabis usage and discussed again his history of cyclic emesis syndrome and benefits of discontinuing this. FORMERLY [facility], [facility] Medical History B12 nutritional deficiency Claustrophobia Mild cognitive impairment Tobacco use HLD (hyperlipidemia) HTN (hypertension) Right adrenal mass History of kidney stones History of seizure Cyclic vomiting syndrome Hiatal hernia Heart attack Home Medications ?Medication ?Instructions ?Recorded ?Last Taken ?Type amlodipine 10 mg tablet 10 mg PO DAILY 11/11/22 Unknown History aspirin 81 mg chewable tablet 81 mg PO DAILY 11/11/22 Unknown History atorvastatin 40 mg tablet 40 mg PO DAILY 11/11/22 Unknown History citalopram 40 mg tablet 40 mg PO DAILY 11/11/22 Unknown History fenofibrate 120 mg tablet 145 mg PO DAILY 11/11/22 Unknown History sucralfate 1 gram tablet 1 g PO 4X/DAY 11/11/22 Unknown History acetaminophen 500 mg tablet 500 mg PO Q6H PRN pain 08/22/23 Unknown History (Tylenol Extra Strength) clopidogrel 75 mg tablet (Plavix) 75 mg PO DAILY 08/22/23 Unknown History metoprolol succinate 25 mg 25 mg PO BID 08/22/23 Unknown History tablet,extended release 24 hr nitroglycerin 0.4 mg sublingual 0.4 mg sublingual Q5M PRN chest 08/22/23 Unknown History tablet pain dicyclomine 20 mg tablet 20 mg PO Q6H PRN abdominal 06/30/24 Unknown Rx cramping #20 tabs lisinopril 40 mg tablet 40 mg PO DAILY 07/10/24 Unknown History pantoprazole 40 mg tablet,delayed 40 mg PO DAILY 09/02/24 Unknown History release trazodone 100 mg tablet 100 mg PO QHS 09/02/24 Unknown History Allergy/AdvReac Type Severity Reaction Status Date / Time Penicillins (PCN) Allergy Severe Rash Verified 10/03/24 14:46 sertraline (From Zoloft) Allergy Severe Other Verified 10/03/24 14:46 meloxicam (From Mobic) Allergy Mild Itching Verified 10/03/24 14:46 nitrofurantoin (From AdvReac Severe Rash Verified 10/03/24 14:46 Macrobid) Family History Mother Heart disease Father Heart disease Surgical History S/P primary angioplasty with coronary stent History of repair of hiatal hernia History of cholecystectomy Social History household members: spouse Smoking Status: Current every day smoker tobacco type: cigars per week: 28 alcohol intake: never details: Denies alcohol use and history of pancreatitis substance use type: does not use ROS ROS Narrative Admission Review of Systems: CONSTITUTIONAL: No weight loss, fever, chills, + weakness or fatigue. HEENT: Eyes: No visual loss, blurred vision, double vision or yellow sclerae. Ears, Nose, Throat: No hearing loss, sneezing, congestion, runny nose or sore throat. SKIN: No rash or itching, lesions, wounds. CARDIOVASCULAR: No chest pain, chest pressure or chest discomfort, palpitations, edema, orthopnea, syncopal events. RESPIRATORY: No shortness of breath, cough or sputum, wheezing, hemoptysis. GASTROINTESTINAL: + anorexia, nausea, vomiting, sharp abdominal pain, dark stools, blood tinged hematemesis. No diarrhea, BRBPR. GENITOURINARY: No dysuria, frequency, urgency or retention. NEUROLOGICAL: + Chart reported history of memory impairment. No headache, dizziness, syncope, paralysis, ataxia, numbness or tingling in the extremities, focal weakness, change in bowel or bladder control, seizure. MUSCULOSKELETAL: + muscle, back pain, joint pain or stiffness. HEMATOLOGIC: + anemia, bleeding concerns as noted. LYMPHATICS: No enlarged nodes. No history of splenectomy. PSYCHIATRIC: + History of anxiety and depression, insomnia. ENDOCRINOLOGIC: No reports of sweating, cold or heat intolerance. No polyuria or polydipsia. ALLERGIES: No history of asthma, hives, eczema or rhinitis. Vital Signs Vital Signs Vital Signs: 10/17/24 02:43 10/17/24 04:46 10/17/24 05:12 Temperature 98.3 F 98.2 F Temperature Source Oral Pulse Rate 119 H 88 88 Respiratory Rate 18 16 16 Blood Pressure 183/111 H 159/54 H 159/59 H Blood Pressure Mean 135 89 92 Pulse Ox 97 96 96 Oxygen Delivery Method Room Air Room Air Weight Weight: 168 lb 13.985 oz Body Mass Index (BMI) 24.2 Physical Exam Narrative Physical Examination: General: Awake, alert, oriented x 3 and cooperative, laying in the ED bed, denies any recent emesis, notes abdominal pain is abating, lengthy discussions about what is appropriate to take for discomfort. Skin: Normal color, normal turgor, no icterus, no cyanosis. HEENT: AT/NC, EOMI, PERRLA, dry MM, no carotid bruits or JVD noted. Lungs: Mildly diminished, greater bases, proper effort, no rales, ronchi or wheezing. Heart: Regular rate and rhythm; no gallop, rub audible. Abdomen: Soft, mild general discomfort to palpation of the abdomen but no rebound or guarding and no specific focal epigastric discomfort, ND, h mildly yperactive BS, no appreciated HSM. Extremities: No cyanosis, clubbing, or edema. Neurological: Patient awake, alert, oriented as noted, cognitive function intact; pupils equally reactive to light and accommodation, cranial nerves grossly normal, moving all 4 extremities, no focal deficits, strength mildly to moderately globally decreased secondary to acute presentation complaints. Psychiatric: Affect appears fatigued, no acute evidence of depressive or anxiety feelings but does have underlying history. Results Lab / Micro Data 10/17/24 03:02 10/17/24 03:02 Labs: Laboratory Results - last 24 hr 10/17/24 03:02: WBC 17.6 H, RBC 4.20 L, Hgb 12.4 L, Hct 35.4 L, MCV 84.3, MCH 29.5, MCHC 35.0, RDW Std Deviation 47.7 H, RDW Coeff of Florencio 15.8 H, Plt Count 458 H, MPV 9.1, Immature Gran % (Auto) 0.600, Neut % (Auto) 88.1 H, Lymph % (Auto) 4.5 L, [place] % (Auto) 6.5, Eos % (Auto) 0.2, Baso % (Auto) 0.1, Absolute Neuts (auto) 15.5 H, Absolute Lymphs (auto) 0.79 L, Nucleated RBC % 0, Sodium 136, Potassium 3.6, Chloride 104, Carbon Dioxide 20.0 L, Anion Gap 12, BUN 13, Creatinine 1.14, Estim Creat Clear Calc 65.81, Est GFR (MDRD) Af Amer 83, Est GFR (MDRD) Non-Af 68, BUN/Creatinine Ratio 11.4, Glucose 149 H, Lactic Acid 2.4 H*, Calcium 10.5 H, Total Bilirubin 0.40, AST 22, ALT 18, Alkaline Phosphatase 49, Total Protein 7.5, Albumin 4.0, Globulin 3.5, Albumin/Globulin Ratio 1.1, Lipase 32 Micro: Microbiology 10/17/24 03:40 Stool Stool Occult Blood (JOSE) - Final Occult Blood Positive Imaging Radiology Impression Abdomen/Pelvis CTA 10/17/24 02:54 IMPRESSION: No acute abnormality. No evidence of a gastrointestinal bleed. Electronically Signed: Jorge Reinosones, at 4:59 EST , Assessment & Plan Assessment/Plan (1) Cyclic vomiting syndrome: PLAN: Plan The patient is a 64 y/o M w/ PMHx: Chronic anemia, HTN, HLD, Tobacco use, CAD s/p PCI, Hx cyclic vomiting syndrome, Mild cognitive impairment, GERD who presents to the [facility] ED on 10/17/24 with history of initial evaluation actually earlier in the day 10/16/2024 secondary to history of persistent nausea and vomiting with stools dark over the last 2 to 3 days with abdominal cramping noting that he has been taking ibuprofen daily for pain control with bouts initially starting over the last 24 hours early in the morning. #1. Acute abdominal pain of unclear etiology with intractable nausea and emesis with previous cyclic vomiting syndrome with leukocytosis and lactic acidosis, possibly secondary to severe dehydration with questionable #2: Will admit to MS given vital sign improvement, will maintain on aggressive IV fluids, as noted will maintain n.p.o. status on IV PPI with continued hemoglobin trending, will have rotating antiemetics, will dose with Haldol given persistent nausea and emesis complaints and may add additional if needed, UDS requested, procalcitonin requested. #2. Questionable GI bleed w/ + stool guiac and questionable hematemesis with intractable nausea and emesis, possibly Shanna-Jaime tear however patient does admit to recent ibuprofen heavy usage: Admission hemoglobin 12.1, stool guaiac positive, previous presentation with hemoglobin ranging 11-12 and hemoglobin stable compared to previously, will cycle H&H's however given nausea and emesis some concern for positive guaiac related to this, will maintain on IV PPI, NPO until nausea and emesis resolving, if hemoglobin trends concerning then may involve gastroenterology otherwise may consider follow-up outpatient. Strongly advised avoidance of NSAIDs given dual antiplatelet therapies. Advised him to take Tylenol as needed for discomfort per dosing on bottle. #3. Hyperglycemia, possibly stress response: Initial glucose 149, no diabetic history, possibly stress response, hemoglobin C requested to be cautious. #4. Chronic normocytic anemia: Admission hemoglobin 12.4, MCV 84.3, baseline hemoglobin primarily 11-12 although vacillates, continue to trend. #5. CAD: Status post previous CA, status post PCI, will temporarily hold aspirin and Plavix given concern for GI bleed as noted, resume once assure hemoglobin trending stable for appropriate, continue statin, metoprolol, lisinopril home regimen. #6. Hypertension: Continue home regimen including amlodipine, metoprolol, lisinopril with hold parameters as needed, PRN hydralazine. #7. Hyperlipidemia: Continue home statin therapy. #8. Chronic mild cognitive impairment: Noted in history, unclear exact etiology, not on a chronic memory impairment medications, very conversant and no obvious evident impairment, encourage continued outpatient follow-up as previously arranged. #9. Anxiety and depression: We will continue patient home citalopram and trazodone regimen. #10. Tobacco Abuse: Encouraged cessation, inpatient consultation per RT, NR if desired. #11. GERD: We will continue IV PPI as noted, transition back to home PPI oral regimen once clinically improved, continue home sucralfate regimen. #12. DVT prophylaxis: SCDs. #13. CODE status: Patient notes that his who is his medical decision-maker. Full Code status. Charges/Coding Visit Charges Inpatient E&M: 44514 Init Hosp L3
[2024-10-17 05:50] LABS: Magnesium 1.2 mg/dL (1.6-2.6)
[2024-10-17 06:34] LABS: Amphetamine Urine NEGATIVE (<1000 ng/mL); Barbiturate Urine VISTA NEGATIVE (< 200 ng/mL); Benzodiazepine Urine VISTA NEGATIVE (< 200 ng/mL); Cocaine Urine VISTA NEGATIVE (< 300 ng/mL); Ecstacy Urine VISTA NEGATIVE (< 500 ng/mL); Methadone Urine VISTA NEGATIVE (< 300 ng/mL); PCP Urine VISTA NEGATIVE (< 25 ng/mL); THC Urine VISTA POSITIVE (< 50 ng/mL); Vista UDS pH Range 7
[2024-10-17] MEDS: Haloperidol Lactate 5 MG/ML Vial 1 MG IV (06:34)
[2024-10-17] MEDS: 0.9% Saline Lock 10 ML Syringe IV (06:34)
[2024-10-17] MEDS: 0.9% Normal Saline (1000mL) 1,000 ML 100 ML IV (06:34)
[2024-10-17 06:54] LABS: Hematocrit 31.7 % (40-54); Hemoglobin 10.5 g/dL (13.0-16.5)
[2024-10-17 07:13] LABS: Reflex Lactate? Y
--- NOTE | 2024-10-17 07:30 | PCM.PN.HOSP ---
Reason for Visit Reason for Visit: Diagnoses Cyclical vomiting syndrome unrelated to migraine (10/17/24) Subjective Subjective Patient is a 64-year-old gentleman with history of cyclical vomiting syndrome presented with nausea vomiting and melena Objective Data Objective Data Vital Signs: Vital Signs Temp Pulse Resp BP Pulse Ox O2 Del Method 97.8 F 92 16 151/91 H 97 Room Air 10/17/24 06:40 10/17/24 06:40 10/17/24 06:40 10/17/24 06:40 10/17/24 06:40 10/17/24 06:40 Oxygen Delivery Method Room Air Weight: 77 kg Body Mass Index (BMI) 24.3 Intake & Output: Intake and Output for Last 24 Hours 10/15/24 10/16/24 10/17/24 23:59 23:59 23:59 Intake Total 2109 Balance 2109 Lab / Micro Data 10/17/24 06:35 10/17/24 03:02 Labs: Laboratory Results - last 24 hr 10/17/24 03:02: WBC 17.6 H, RBC 4.20 L, Hgb 12.4 L, Hct 35.4 L, MCV 84.3, MCH 29.5, MCHC 35.0, RDW Std Deviation 47.7 H, RDW Coeff of Florencio 15.8 H, Plt Count 458 H, MPV 9.1, Immature Gran % (Auto) 0.600, Neut % (Auto) 88.1 H, Lymph % (Auto) 4.5 L, [place] % (Auto) 6.5, Eos % (Auto) 0.2, Baso % (Auto) 0.1, Absolute Neuts (auto) 15.5 H, Absolute Lymphs (auto) 0.79 L, Nucleated RBC % 0, Sodium 136, Potassium 3.6, Chloride 104, Carbon Dioxide 20.0 L, Anion Gap 12, BUN 13, Creatinine 1.14, Estim Creat Clear Calc 65.81, Est GFR (MDRD) Af Amer 83, Est GFR (MDRD) Non-Af 68, BUN/Creatinine Ratio 11.4, Glucose 149 H, Lactic Acid 2.4 H*, Calcium 10.5 H, Phosphorus 3.0, Magnesium 1.2 L, Total Bilirubin 0.40, AST 22, ALT 18, Alkaline Phosphatase 49, Total Protein 7.5, Albumin 4.0, Globulin 3.5, Albumin/Globulin Ratio 1.1, Lipase 32 10/17/24 06:00: Urine Opiates Screen POSITIVE H, Urine Methadone Screen NEGATIVE, Ur Barbiturates Screen NEGATIVE, Ur Phencyclidine Scrn NEGATIVE, Ur Amphetamines Screen NEGATIVE, MDMA (Ecstasy) Screen NEGATIVE, U Benzodiazepines Scrn NEGATIVE, Urine Cocaine Screen NEGATIVE, U Cannabinoids Screen POSITIVE H, Ur Drug Screen Comment 10/17/24 06:35: Hgb 10.5 L, Hct 31.7 L Micro: Microbiology 10/17/24 03:40 Stool Stool Occult Blood (JOSE) - Final Occult Blood Positive Radiography Diagnostic Testing: Radiology Impression Abdomen/Pelvis CTA 10/17/24 02:54 IMPRESSION: No acute abnormality. No evidence of a gastrointestinal bleed. Electronically Signed: Jorge Oneill DO at 4:59 EST Reading Location ID and State: [facility] / [place] Tel , Service support , Physical Exam Narrative GENERAL: cooperative HEENT: Atraumatic; normocephalic EYES; Anicteric, Normal Conjunctiva NECK; supple, normal thyroid, RESPIRATORY: Diminished to auscultation CARDIOVASCULAR: Regular S1 S2, GI: soft, normoactive bowel sounds, : No Renal angle tenderness; EXTREMITIES: No edema, no clubbing, MUSCULOSKELETAL: no muscle wasting NEURO: Awake; no lateralizing signs. SKIN: No Rash PSYCH; Flat affect Assessment & Plan Assessment/Plan (1) Cyclic vomiting syndrome: PLAN: Plan Patient is a 64-year-old gentleman with history of cyclical vomiting syndrome presented with nausea vomiting and melena Abdominal pain ? Patient has history of cyclical vomiting admitted to regular nursing floor for symptom management. UDS obtained came back positive for opiates as well as marijuana 2. Suspected Shanna-Jaime tear ? Given patient intractable nausea vomiting. Patient was placed on PPI 3. Leukocytosis ? Thought to be reactive no evidence of active infection at this point 4. Anemia ? Secondary to chronic disorder monitoring H&H and transfuse if patient becomes symptomatic or hemoglobin falls below 7 5. Severe hypomagnesemia ? Corrected for protocol repeat labs ordered for monitoring 6. Hypertension ? Blood pressure controlled, home medications continued with dose adjustment as needed 7. Coronary artery disease ? With previous PCI patient is on guideline directed medical therapy 8. Dyslipidemia ?Patient is on statin therapy, continued at home dose 9. GERD ? Patient is on PPI 10. Tobacco dependence ? Counseled on cessation, offered nicotine patch for tobacco cravings 11. Polysubstance dependence ? Still screen was positive for opiates as well as marijuana cessation encouraged 12. Depression with anxiety ? Patient is on citalopram 13. DVT prophylaxis ? Given patient suspected Shanna-Jaime tear avoided the use of chemoprophylaxis Time spent in the patient's overall evaluation,decision-making process, review of diagnostic data, adjustment of management, discussion with other providers, nursing nursing and ancillary staff involved in patient's care documentation, 40 Minutes Charges/Coding Visit Charges Inpatient E&M: 41905 PROLNG IP/OBS E/M EA 15 MIN Multi Select Codes Visit Charges Visit Charges: 99392 PROLNG IP/OBS E/M EA 15 MIN
[2024-10-17 07:53] LABS: Lactic Acid 0.7 mmol/L (0.4-1.9)
[2024-10-17 08:01] LABS: Procalcitonin 0.05 ng/mL (0.00-0.09)
[2024-10-17] MEDS: Sucralfate 1 GM Tablet PO ×4 (08:13→20:36)
[2024-10-17] MEDS: Ondansetron 4 MG/2 ML Vial IV ×2 (08:28→18:41)
[2024-10-17] MEDS: Citalopram 40 MG TABLET PO (08:30)
[2024-10-17] MEDS: Metoprolol(XL)Succ 25 MG Tablet PO ×2 (08:30→20:37)
[2024-10-17] MEDS: amLODIPine 10 MG Tablet PO (08:30)
[2024-10-17] MEDS: Lisinopril 40 MG Tablet PO (08:31)
[2024-10-17] MEDS: Fenofibrate 145 MG Tablet PO (08:31)
[2024-10-17 10:26] LABS: Hematocrit 29.5 % (40-54); Hemoglobin 10.1 g/dL (13.0-16.5)
[2024-10-17] MEDS: Magnesium Chloride 64 MG Delay Rel.Tablet 128 MG PO ×2 (12:18→20:36)
[2024-10-17] MEDS: Magnesium Sulfate 4gm/100mL 4 GM/100 ML IV.SOLN. IV (12:20)
[2024-10-17 13:49] LABS: Hematocrit 29.8 % (40-54); Hemoglobin 10.3 g/dL (13.0-16.5)
[2024-10-17] MEDS: Atorvastatin Calcium 40 MG Tablet PO (20:37)
[2024-10-17] MEDS: traZODone 100 MG Tablet PO (20:37)
[2024-10-18 04:51] VITALS: BP 140/80; PULSE 72; RESP 16; TEMP 36.5; O2SAT 98
[2024-10-18 06:00] VITALS: BMI 23.9
[2024-10-18 07:15] LABS: Absolute Lymphocyte Count 1.03 X10^3/uL (0.83-4.51); Absolute Neutrophil Count 6.5 X10^3/uL (2.0-7.7); Basophil# 0.03 X10^3/uL; Basophil% 0.4 % (0-1); Eosinophil# 0.02 X10^3/uL; Eosinophils% 0.2 % (0-5); Hematocrit 32.5 % (40-54); Hemoglobin 10.7 g/dL (13.0-16.5); Lymphocyte # 1.03 X10^3/ul (0.83-4.51); Lymphocyte % 12.1 % (19-41); Mean Corp Hgb Conc 32.9 g/dL (32-36); Mean Corpuscular Hgb 28.9 pg (27.0-32.0); Mean Corpuscular Volume 87.8 fL (80-94); Mean Platelet Vol. 8.9 fl (6.2-12.0); Monocyte# 0.86 X10^3/uL; Monocyte% 10.1 % (0-10); NRBC Flagged by Analyzer 0 % (0-5); Neutrophil % 76.6 % (47-70); Platelet Count 360 K/mm3 (150-450); RBC Distribution Width CV 16.3 % (11.6-14.6); White Blood Count 8.5 K/mm3 (4.4-11.0)
--- NOTE | 2024-10-18 07:45 | PCM.DC.SUM ---
Providers Date of Admission: 10/17/24 Date of Discharge: 10/18/24 Primary Care Physician: Dr. Arias Lemus, Reason For Visit: N/V, POSSIBLE GI BLEED Diagnosis Discharge Diagnosis (1) Cyclic vomiting syndrome: Status: Acute Code(s): R11.15 - Cyclical vomiting syndrome unrelated to migraine Plan Patient is a 64-year-old gentleman with history of cyclical vomiting syndrome presented with nausea vomiting and melena 1. Abdominal pain ? Patient has history of cyclical vomiting admitted to regular nursing floor for symptom management. UDS obtained came back positive for opiates as well as marijuana ? Patient symptoms did improve diet was advanced as tolerated 2. Suspected Shanna-Jaime tear ? Given patient intractable nausea vomiting. Patient was placed on PPI 3. Leukocytosis ? Thought to be reactive no evidence of active infection at this point ? Resolved at the time of discharge 4. Anemia ? Secondary to chronic disorder monitoring H&H and transfuse if patient becomes symptomatic or hemoglobin falls below 7 5. Severe hypomagnesemia ? Corrected for protocol repeat labs ordered for monitoring 6. Hypertension ? Blood pressure controlled, home medications continued with dose adjustment as needed 7. Coronary artery disease ? With previous PCI patient is on guideline directed medical therapy 8. Dyslipidemia ?Patient is on statin therapy, continued at home dose 9. GERD ? Patient is on PPI 10. Tobacco dependence ? Counseled on cessation, offered nicotine patch for tobacco cravings 11. Polysubstance dependence ? Still screen was positive for opiates as well as marijuana cessation encouraged 12. Depression with anxiety ? Patient is on citalopram 13. DVT prophylaxis ? Given patient suspected Shanna-Jaime tear avoided the use of chemoprophylaxis Time spent in the patient's overall evaluation,decision-making process, review of diagnostic data, adjustment of management, discussion with other providers, nursing nursing and ancillary staff involved in patient's care documentation, 35 minutes Medications at Discharge Home Medications amlodipine 10 mg tablet 10 mg PO DAILY 11/11/22 aspirin 81 mg chewable tablet 81 mg PO DAILY 11/11/22 atorvastatin 40 mg tablet 40 mg PO DAILY 11/11/22 citalopram 40 mg tablet 40 mg PO DAILY 11/11/22 fenofibrate 120 mg tablet 145 mg PO DAILY 11/11/22 sucralfate 1 gram tablet 1 g PO 4X/DAY 11/11/22 acetaminophen 500 mg tablet (Tylenol Extra Strength) 500 mg PO Q6H PRN pain 08/22/23 clopidogrel 75 mg tablet (Plavix) 75 mg PO DAILY 08/22/23 metoprolol succinate 25 mg tablet,extended release 24 hr 25 mg PO BID 08/22/23 nitroglycerin 0.4 mg sublingual tablet 0.4 mg sublingual Q5M PRN chest pain 08/22/23 dicyclomine 20 mg tablet 20 mg PO Q6H PRN abdominal cramping #20 tabs 06/30/24 lisinopril 40 mg tablet 40 mg PO DAILY 07/10/24 trazodone 100 mg tablet 100 mg PO QHS 09/02/24 magnesium chloride 64 mg (magnesium chloride) tablet,delayed release (Mag 64) 128 mg (2 x 64 mg) PO BID #60 tabs 10/18/24 pantoprazole 40 mg tablet,delayed release 40 mg PO BID #60 tabs 10/18/24 Physical Exam Narrative GENERAL: cooperative HEENT: Atraumatic; normocephalic EYES; Anicteric, Normal Conjunctiva NECK; supple, normal thyroid, RESPIRATORY: Diminished to auscultation CARDIOVASCULAR: Regular S1 S2, GI: soft, normoactive bowel sounds, : No Renal angle tenderness; EXTREMITIES: No edema, no clubbing, MUSCULOSKELETAL: no muscle wasting NEURO: Awake; no lateralizing signs. SKIN: No Rash PSYCH; Flat affect Weight / BMI Weight Weight: 75.8 kg Body Mass Index (BMI) 23.9 ABG / Lab / Microbiology Data 10/18/24 06:49 10/17/24 03:02 Laboratory: Laboratory Results - last 24 hr 10/17/24 06:08: Procalcitonin 0.05 10/17/24 07:22: Lactic Acid 0.7 10/17/24 10:15: Hgb 10.1 L, Hct 29.5 L 10/17/24 13:46: Hgb 10.3 L, Hct 29.8 L 10/18/24 06:49: WBC 8.5, RBC 3.70 L, Hgb 10.7 L, Hct 32.5 L, MCV 87.8, MCH 28.9, MCHC 32.9 D, RDW Std Deviation 53.0 H, RDW Coeff of Florencio 16.3 H, Plt Count 360, MPV 8.9, Immature Gran % (Auto) 0.600, Neut % (Auto) 76.6 H, Lymph % (Auto) 12.1 L, [place] % (Auto) 10.1 H, Eos % (Auto) 0.2, Baso % (Auto) 0.4, Absolute Neuts (auto) 6.5, Absolute Lymphs (auto) 1.03, Nucleated RBC % 0 Microbiology: Microbiology 10/17/24 03:40 Stool Stool Occult Blood (JOSE) - Final Occult Blood Positive D/C Instructions Discharge Diet: No restrictions Discharge Activity: Return to Normal Activity Call your doctor if you observe: Fever of 101 or Higher, Shortness of breath, Fainting spells and Chest pain DC O2, CPAP, BIPAP Needs Home O2 Discharge instructions: No Meaningful Use Info Meaningful Use Meaningful Use Diagnoses (Choose all that apply): None applicable Ischemic Stroke Statin Dosing Therapy Reference: STATIN DOSE THERAPY REFERENCE: * Patients > 75 years receive moderate or high dose statin therapy. * Patients 75 years or YOUNGER should receive HIGH intensity statin dose unless contraindicated. You will be required to document reason for non-treatment if statin daily dose does not meet guidelines. HIGH DOSE STATIN THERAPY DAILY Atorvastatin > than or = to 40 mg Rosuvastatin > than or = to 20 mg Amlodipine + Atorvastatin > than or = to 2.5/40 mg Ezetimibe + Simvastatin 10/80 mg Simvastatin 80mg Discharge Plan Admission Admit Date/Time: 10/17/24 05:23 Attending Provider: Kamaljit Frias Primary Care Provider: Arias Lemus Consulting Providers: Iris Orozco Discharge Orders/Prescriptions Prescriptions: New magnesium chloride [Mag 64] 64 mg Tablet,Delayed Release (Dr/Ec) 128 mg PO BID Qty: 60 0RF Continued clopidogrel [Plavix] 75 mg tablet 75 mg PO DAILY metoprolol succinate 25 mg tablet extended release 24 hr 25 mg PO BID nitroglycerin 0.4 mg tablet, sublingual 0.4 mg sublingual Q5M PRN (Reason: chest pain) Rx Instructions: do not exceed 3 doses per episode acetaminophen [Tylenol Extra Strength] 500 mg tablet 500 mg PO Q6H PRN (Reason: pain) atorvastatin 40 mg Tablet 40 mg PO DAILY citalopram 40 mg Tablet 40 mg PO DAILY sucralfate 1 gram Tablet 1 g PO 4X/DAY amlodipine 10 mg Tablet 10 mg PO DAILY aspirin 81 mg Tablet,Chewable 81 mg PO DAILY fenofibrate 120 mg Tablet 145 mg PO DAILY dicyclomine 20 mg tablet 20 mg PO Q6H PRN (Reason: abdominal cramping) Qty: 20 0RF lisinopril 40 mg tablet 40 mg PO DAILY trazodone 100 mg tablet 100 mg PO QHS Changed pantoprazole 40 mg tablet,delayed release (DR/EC) 40 mg PO BID Qty: 60 0RF Referrals / Follow Up: Arias Lemus DO [Primary Care Provider] - Within 1 Week Disposition Disposition (needs filled in before D/C Order can be placed): Home, Self Care Charges/Coding Visit Charges Inpatient E&M: 55707 Disch Hosp >30min
[2024-10-18 08:10] VITALS: BP 144/86; PULSE 77; RESP 18; TEMP 36.7; O2SAT 99
[2024-10-18] MEDS: Magnesium Chloride 64 MG Delay Rel.Tablet 128 MG PO (08:14)
[2024-10-18] MEDS: Citalopram 40 MG TABLET PO (08:14)
[2024-10-18] MEDS: Sucralfate 1 GM Tablet PO (08:14)
[2024-10-18 08:15] VITALS: PULSE 77
[2024-10-18] MEDS: amLODIPine 10 MG Tablet PO (08:15)
[2024-10-18] MEDS: Lisinopril 40 MG Tablet PO (08:15)
[2024-10-18] MEDS: Metoprolol(XL)Succ 25 MG Tablet PO (08:15)
[2024-10-18] MEDS: Fenofibrate 145 MG Tablet PO (08:15)
[2024-10-18 08:18] VITALS: O2SAT 96
--- NOTE | 2024-10-18 09:37 | CASEMGMT ---
CARIN AMOR NOTE: Intro role of CM to patient and [facility] form explained re: Observation status for treatment of nausea, vomiting, and GI bleed.? Explained hospitalization will be paid per?his insurance policy for Outpatient billing?and condition will continue to be evaluated for Inpt necessity. Also let pt know that [facility] sends paper in the billing packet with their phone number if questions arise. Pt verbalizes understanding and does not have further questions. ?Form signed, copy made and placed in chart, and original given to pt. Paco LORENZO RN, CM ?
[2024-10-18 09:43] LABS: ALB/GLOB Ratio 1.1 RATIO (0.9-2.4); AST(SGOT) 29 U/L (15-37); Alanine Aminotransfer ALT/SGPT 19 U/L (16-61); Albumin, Serum 3.4 g/dL (3.2-5.0); Alkaline Phosphatase 40 U/L (45-117); Anion Gap 6 (5-15); BUN 17 mg/dL (7-18); BUN/Creat Ratio 16.5 RATIO (10-20); Calcium,Total 9.3 mg/dL (8.5-10.1); Chloride 111 mmol/L (98-107); Creatinine, Serum 1.03 mg/dL (0.70-1.30); EST Glomerular Filtration Rate 77 mL/min (>60); Est Glom Filt Rate - Afr Amer 93 mL/min (>60); Estimated Creatinine Clearance 72.84 ml/min; Globulin 3.1 g/dL (2.2-4.2); Glucose 87 mg/dL (74-106); Magnesium 2.1 mg/dL (1.6-2.6); Potassium 3.5 mmol/L (3.5-5.1); Protein, Total 6.5 g/dL (6.4-8.2); Sodium Level 139 mmol/L (136-145)
[2024-10-18 09:48] LABS: Phosphorus 2.8 mg/dL (2.5-4.9)
[2024-10-18 10:21] LABS: Hemoglobin A1c 4.8 % (3.8-5.6)
== END 2024-10-18 10:39 | disposition home or self-care (01) ==
LOC: ED 05:18 → MS3 05:48
PROVIDERS: Admitting Provider Family Medicine; Emergency Provider Emergency Medicine; PCP Family Medicine; Visit Provider Internal Medicine
DX: R11.15 Cyclical vomiting syndrome unrelated to migraine (principal); F11.20 Opioid dependence, uncomplicated; F12.20 Cannabis dependence, uncomplicated; E78.5 Hyperlipidemia, unspecified; E87.20 Acidosis, unspecified; I10 Essential (primary) hypertension; Z79.02 Long term (current) use of antithrombotics/antiplatelets; I25.10 Atherosclerotic heart disease of native coronary artery without angina pectoris; K21.9 Gastro-esophageal reflux disease without esophagitis; K92.2 Gastrointestinal hemorrhage, unspecified; G31.84 Mild cognitive impairment of uncertain or unknown etiology; Z79.899 Other long term (current) drug therapy; F17.290 Nicotine dependence, other tobacco product, uncomplicated; R73.9 Hyperglycemia, unspecified; D63.8 Anemia in other chronic diseases classified elsewhere; F41.8 Other specified anxiety disorders; E83.42 Hypomagnesemia
CPT/HCPCS: 36415; 74174; 80053; 80307; 82274; 83036; 83605; 83690; 83735; 84100; 84145; 85014; 85018; 85025; 96361; 96365; 96366; 96367; 96375; 96376; 99221; 99252; 99283; Q9967; A4216; G0378; G0463; J2405

== ENCOUNTER → 2024-10-20 | Outpatient (CLI) | payer MEDICARE, SELFPAY ==
[2024-10-20 18:02] LABS: Vitamin B12 338 pg/mL (211-911)
[2024-10-20 18:16] LABS: Ferritin 29 ng/mL (26-388); Iron 35 ug/dL (65-175)
== END | disposition home or self-care (01) ==
LOC: MTLAB 13:42
PROVIDERS: PCP Family Medicine; Referring Provider Psychiatry & Neurology Neurology; Visit Provider Psychiatry & Neurology Neurology
DX: D64.9 Anemia, unspecified (principal); E53.8 Deficiency of other specified B group vitamins
CPT/HCPCS: 36415; 82607; 82728; 83540

== ENCOUNTER 2024-10-23 10:14 | Emergency (ER) | payer MEDICARE, SELFPAY ==
[2024-10-23 10:16] VITALS: BP 178/123; PULSE 124; RESP 18; TEMP 36.2; O2SAT 96
[2024-10-23] MEDS: Ondansetron 4 MG/2 ML Vial IV (11:18)
[2024-10-23] MEDS: 0.9% Normal Saline (1000mL) 1,000 ML 999 ML IV (11:18)
[2024-10-23] MEDS: Morphine 4 MG/ML Syringe IV (11:18)
[2024-10-23 11:20] VITALS: BMI 24.8
[2024-10-23 11:22] LABS: Absolute Lymphocyte Count 0.63 X10^3/uL (0.83-4.51); Absolute Neutrophil Count 15.5 X10^3/uL (2.0-7.7); Basophil# 0.04 X10^3/uL; Basophil% 0.2 % (0-1); Eosinophil# 0.01 X10^3/uL; Eosinophils% 0.1 % (0-5); Hemoglobin 12.1 g/dL (13.0-16.5); Lymphocyte # 0.63 X10^3/ul (0.83-4.51); Lymphocyte % 3.8 % (19-41); Mean Corp Hgb Conc 33.6 g/dL (32-36); Mean Corpuscular Hgb 28.6 pg (27.0-32.0); Mean Corpuscular Volume 85.1 fL (80-94); Monocyte% 2.4 % (0-10); NRBC Flagged by Analyzer 0 % (0-5); Neutrophil # 15.47 X10^3/uL (2.7-7.7); Neutrophil % 92.5 % (47-70); Platelet Count 475 K/mm3 (150-450); RBC Distribution Width CV 16.5 % (11.6-14.6); RBC Distribution Width SD 51.1 fl (35.1-43.9); Red Blood Count 4.23 M/mm3 (4.6-6.2); White Blood Count 16.7 K/mm3 (4.4-11.0)
--- NOTE | 2024-10-23 11:24 | ED.VIS.GI ---
HPI HPI - GI History of Present Illness Chief Complaint: Nausea/Vomiting Informant: patient Narrative Narrative: 64-year-old male presenting with periumbilical severe abdominal pain and nausea/vomiting that started a couple hours ago, saying that centimeters which I ate last night before bed I do not think is sitting well with me. He states it was a ham sandwich with mayonnaise and mustard. He states his had one too, she is not sick. He does not offer any other information other than the fact that he has had prior herniorrhaphy and cholecystectomy. [facility] Medical History B12 nutritional deficiency Claustrophobia Mild cognitive impairment Tobacco use HLD (hyperlipidemia) HTN (hypertension) Right adrenal mass History of kidney stones History of seizure Cyclic vomiting syndrome Hiatal hernia Heart attack Home Medications ?Medication ?Instructions ?Recorded ?Last Taken ?Type amlodipine 10 mg tablet 10 mg PO DAILY 11/11/22 Unknown History aspirin 81 mg chewable tablet 81 mg PO DAILY 11/11/22 Unknown History atorvastatin 40 mg tablet 40 mg PO DAILY 11/11/22 Unknown History citalopram 40 mg tablet 40 mg PO DAILY 11/11/22 Unknown History fenofibrate 120 mg tablet 145 mg PO DAILY 11/11/22 Unknown History sucralfate 1 gram tablet 1 g PO 4X/DAY 11/11/22 Unknown History acetaminophen 500 mg tablet 500 mg PO Q6H PRN pain 08/22/23 Unknown History (Tylenol Extra Strength) clopidogrel 75 mg tablet (Plavix) 75 mg PO DAILY 08/22/23 Unknown History metoprolol succinate 25 mg 25 mg PO BID 08/22/23 Unknown History tablet,extended release 24 hr nitroglycerin 0.4 mg sublingual 0.4 mg sublingual Q5M PRN chest 08/22/23 Unknown History tablet pain dicyclomine 20 mg tablet 20 mg PO Q6H PRN abdominal 06/30/24 Unknown Rx cramping #20 tabs lisinopril 40 mg tablet 40 mg PO DAILY 07/10/24 Unknown History trazodone 100 mg tablet 100 mg PO QHS 09/02/24 Unknown History magnesium chloride 64 mg 128 mg (2 x 64 mg) PO BID #60 tabs 10/18/24 Unknown Rx (magnesium chloride) tablet,delayed release (Mag 64) pantoprazole 40 mg tablet,delayed 40 mg PO BID #60 tabs 10/18/24 Unknown Rx release Allergy/AdvReac Type Severity Reaction Status Date / Time Penicillins (PCN) Allergy Severe Rash Verified 10/23/24 10:19 sertraline (From Zoloft) Allergy Severe Other Verified 10/23/24 10:19 meloxicam (From Mobic) Allergy Mild Itching Verified 10/23/24 10:19 chlorpromazine (From Allergy lethargic Verified 10/23/24 10:19 Thorazine) nitrofurantoin (From AdvReac Severe Rash Verified 10/23/24 10:19 Macrobid) Family History Mother Heart disease Father Heart disease Surgical History S/P primary angioplasty with coronary stent History of repair of hiatal hernia History of cholecystectomy Social History household members: spouse Smoking Status: Current every day smoker tobacco type: cigars per week: 28 alcohol intake: never details: Denies alcohol use and history of pancreatitis substance use type: does not use ROS ROS ED Constitutional Constitutional ED: Denies chills or fever(s) Eyes Eyes: Denies change in vision or diplopia ENT ENT ED: Denies rhinorrhea or sore throat Cardiovascular Cardiovascular: Denies chest pain or palpitations Respiratory/Chest Respiratory/Chest: Denies cough or dyspnea Gastrointestinal Gastrointestinal: Reports abdominal pain, nausea and vomiting; Denies diarrhea, hematemesis or hematochezia Genitourinary Genitourinary ED: Denies dysuria or hematuria Musculoskeletal Musculoskeletal: Denies back pain or neck pain Integumentary Denies abscess or rash Neurologic Neurologic: Denies headache(s), paresthesias or weakness EXAM Physical Exam Const Vital Signs: 10/23/24 10:16 10/23/24 13:16 10/23/24 15:00 Temperature 97.1 F L Temperature Source Temporal Pulse Rate 124 H 95 86 Respiratory Rate 18 22 H 15 Blood Pressure 178/123 H 172/102 H 149/78 H Blood Pressure Mean 141 125 101 Pulse Ox 96 98 95 Oxygen Delivery Method Room Air Room Air 10/23/24 15:31 Temperature 98 F Temperature Source Pulse Rate 86 Respiratory Rate 18 Blood Pressure 149/78 H Blood Pressure Mean 101 Pulse Ox 100 Oxygen Delivery Method Positive well nourished and well developed Constitutional Narrative: Rocking back and forth, grunting in painful distress General Appearance ED: well developed HEENT Reports moist mucous membranes normocephalic and atraumatic Eyes PERRL and EOMs intact bilaterally Neck full ROM and supple Resp normal respiratory effort and clear to auscultation bilaterally Cardio regular rate, regular rhythm and no murmurs Rate: tachycardic GI non-distended GI Narrative: Tender mostly mid abdomen and left upper quadrant. No guarding or rebound. Auscultation: normoactive bowel sounds Palpation: soft Back/Spine no CVA tenderness General Back: other FROM Extremity normal to inspection General Extremety ED: Negative for edema, pulses abnormal or tenderness General Extremity: Negative for edema or pulses abnormal Neuro oriented x3, CN's II-XII intact bilaterally and no sensory deficits noted Sensorium / Orientation: awake and alert Motor Exam: strength 5/5 throughout Psych Mood & Affect: anxious Skin no rashes or lesions noted and no wounds MDM MDM MDM Narrative Medical decision making narrative: Concerned about this patient's clinical appearance. He is very tachycardic appears to be in a lot of pain, holding an emesis bag. Wide differential of potential GI-related issues, for which imaging was usually be indicated. However upon ordering the workup, it is apparent that he has a history of cyclic vomiting syndrome and was seen here very recently, 3 days ago and 6 days ago and had advanced imaging of his abdomen/pelvis which was normal including angiography. He seems to have a leukocytosis every time he comes for similar symptoms, today is no exception although not as high as it has been in the past, currently 16.7. I did obtain labs including a lactic acid, liver enzymes, lipase considering cholangitis, pancreatitis, as well as an acute abdominal series considering viscus perforation and/or bowel obstruction, While treating the patient with IV fluids, morphine, Zofran. This helped only minimally, we did obtain the acute abdominal series and 3 views of my interpretation shows a nonspecific bowel gas pattern no free air, no evidence of a pneumothorax. Radiology in agreement, does not appear to be an obstruction. His lactate is elevated, but he has had that many times in the past as well, usually higher than this. He was additionally given Thorazine, Benadryl, fentanyl. Before completing all of this on reexamination, he states he feels remarkably better with resolution of his pain and nausea. He is tolerating oral fluids and feels better enough to go home. He admits he does smoke marijuana but states he has not had any in a while. He has had follow-up appointment since his last couple ED visits, and has another 1 scheduled here soon. Advised to continue following up. History & Record Review Additional record(s) reviewed:: Prior ED visit Lab Data Attestation: I reviewed the patient's lab results. Labs: Laboratory Results - last 24 hr 10/23/24 10/23/24 11:15 13:10 WBC 16.7 H RBC 4.23 L Hgb 12.1 L Hct 36.0 L MCV 85.1 MCH 28.6 MCHC 33.6 RDW Std Deviation 51.1 H RDW Coeff of Florencio 16.5 H Plt Count 475 H MPV 9.0 Immature Gran % (Auto) 1.000 H Neut % (Auto) 92.5 H Lymph % (Auto) 3.8 L [place] % (Auto) 2.4 Eos % (Auto) 0.1 Baso % (Auto) 0.2 Absolute Neuts (auto) 15.5 H Absolute Lymphs (auto) 0.63 L Nucleated RBC % 0 Sodium 142 Potassium 3.5 Chloride 109 H Carbon Dioxide 20.0 L Anion Gap 13 BUN 17 Creatinine 1.18 Estim Creat Clear Calc 63.58 Est GFR (MDRD) Af Amer 79 Est GFR (MDRD) Non-Af 66 BUN/Creatinine Ratio 14.4 Glucose 165 H Lactic Acid 2.8 H* Calcium 10.0 Total Bilirubin 0.40 AST 17 ALT 19 Alkaline Phosphatase 58 Total Protein 7.8 Albumin 4.0 Globulin 3.8 Albumin/Globulin Ratio 1.1 Lipase 49 Urine Color Yellow Urine Clarity Clear Urine pH 6.5 Ur Specific [place] 1.010 Urine Protein 30 H Urine Glucose (UA) Normal Urine Ketones Negative Urine Occult Blood 150 H Urine Nitrite Negative Urine Bilirubin Negative Urine Urobilinogen Normal Ur Leukocyte Esterase Negative Urine RBC 10-25 SEEN Urine WBC 0 SEEN Ur Squamous Epith Cells 0-5 SEEN Urine Bacteria 2+ Hyaline Casts 0-5 SEEN Urine Mucus 0 SEEN Radiography Diagnostic Testing: Clinical Impression(s) from Imaging Studies Acute Abdomen Series 10/23/24 12:55 IMPRESSION: Right upper quadrant abdominal surgical clips are again seen. A somewhat calcified and tortuous aorta is again noted. No evidence of cardiomegaly. Lungs appear clear throughout. No pleural effusion or pneumothorax is evident. No evidence of pneumoperitoneum. Some air-filled but nondilated small bowel loops are seen. Air and stool are seen throughout the large bowel and rectum. This represents a nonspecific bowel-gas pattern. Prominent degenerative changes of the lumbar spine noted, along with a gentle amount of lumbar levoscoliosis, centered about L1-L2. Reading Location: [address] Discharge Plan Triage Chief Complaint: Nausea/Vomiting ED Provider: Henry Ortiz Dx/Rx/DC Orders Clinical Impression: Diffuse abdominal pain, Cyclic vomiting syndrome Instructions: ED Cyclic Vomiting Syndrome Prescriptions: No Action clopidogrel [Plavix] 75 mg tablet 75 mg PO DAILY metoprolol succinate 25 mg tablet extended release 24 hr 25 mg PO BID nitroglycerin 0.4 mg tablet, sublingual 0.4 mg sublingual Q5M PRN (Reason: chest pain) Rx Instructions: do not exceed 3 doses per episode acetaminophen [Tylenol Extra Strength] 500 mg tablet 500 mg PO Q6H PRN (Reason: pain) atorvastatin 40 mg Tablet 40 mg PO DAILY citalopram 40 mg Tablet 40 mg PO DAILY sucralfate 1 gram Tablet 1 g PO 4X/DAY amlodipine 10 mg Tablet 10 mg PO DAILY aspirin 81 mg Tablet,Chewable 81 mg PO DAILY fenofibrate 120 mg Tablet 145 mg PO DAILY dicyclomine 20 mg tablet 20 mg PO Q6H PRN (Reason: abdominal cramping) Qty: 20 0RF lisinopril 40 mg tablet 40 mg PO DAILY trazodone 100 mg tablet 100 mg PO QHS magnesium chloride [Mag 64] 64 mg Tablet,Delayed Release (Dr/Ec) 128 mg PO BID Qty: 60 0RF pantoprazole 40 mg tablet,delayed release (DR/EC) 40 mg PO BID Qty: 60 0RF Primary Care Provider: Arias Lemus Referrals: Arias Lemus, [Primary Care Provider] - Keep Bhavna appointment Print Language: Persian Disposition Disposition: Home, Self Care Discharge Date/Time: 10/23/24 15:32
[2024-10-23 11:37] LABS: ALB/GLOB Ratio 1.1 RATIO (0.9-2.4); AST(SGOT) 17 U/L (15-37); Alanine Aminotransfer ALT/SGPT 19 U/L (16-61); Alkaline Phosphatase 58 U/L (45-117); Anion Gap 13 (5-15); BUN 17 mg/dL (7-18); BUN/Creat Ratio 14.4 RATIO (10-20); Chloride 109 mmol/L (98-107); Creatinine, Serum 1.18 mg/dL (0.70-1.30); EST Glomerular Filtration Rate 66 mL/min (>60); Est Glom Filt Rate - Afr Amer 79 mL/min (>60); Estimated Creatinine Clearance 63.58 ml/min; Globulin 3.8 g/dL (2.2-4.2); Glucose 165 mg/dL (74-106); Lipase 49 U/L (13-75); Potassium 3.5 mmol/L (3.5-5.1); Protein, Total 7.8 g/dL (6.4-8.2); Sodium Level 142 mmol/L (136-145)
[2024-10-23 11:56] LABS: Lactic Acid 2.8 mmol/L (0.4-1.9)
[2024-10-23] MEDS: fentaNYL 100 MCG/2 ML Ampul 50 MCG IV (12:30)
--- NOTE | 2024-10-23 12:55 | RAD_ITS ---
PROCEDURE: ACUTE ABDOMEN INC CHEST REASON FOR EXAM: Abdominal pain and vomiting. TECHNIQUE: Single view abdomen. 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 A somewhat calcified and tortuous aorta is again noted. No evidence of cardiom egaly. Lungs appear clear throughout. No pleural effusion or pneumothorax is evident. No evidence of pneumoperitoneum. Some air-filled but nondilated small bowel loops are seen. Air and stool are seen throughout the large bowel and rectum. This represents a nonspecific bowel-gas pattern. Prominent degenerative changes of the lumbar spine noted, along with a gentle a mount of lumbar levoscoliosis, centered about L1-L2. Reading Location: [id number]
[2024-10-23] MEDS: DiphenhydrAMINE 25 MG, ChlorproMAZINE IM 25 MG in 0.9% Normal Saline (100mL Bag) 100 ML 203 MG IV (13:10)
[2024-10-23 13:16] VITALS: BP 172/102; PULSE 95; RESP 22; O2SAT 98
[2024-10-23 13:33] LABS: Color, Urine Yellow (Yellow); Glucose, Dipstick Normal (Normal); Ketone-Dipstick Negative (Negative); Leukocyte Esterase-Dipstick Negative /ul (Negative); Mucous, Urine 0 SEEN /hpf (<or=2+); Nitrite-Dipstick Negative (Negative); Occult Blood-Urine 150 /ul (Negative); Protein-Dipstick 30 mg/dl (Negative); Urine Bilirubin Dipstick Negative (Negative); Urine Clarity Clear (Clear); Urine Urobilinogen Normal (Normal); Urine pH 6.5 (5.0 - 8.0); White Blood Cells 0 SEEN /hpf (0-5)
[2024-10-23 13:42] LABS: Red Blood Cells-Urine 10-25 SEEN /hpf (0-5); Squamous Epithelial Cells - UA 0-5 SEEN /hpf (0-5)
[2024-10-23 13:43] LABS: Bacteria 2+ /hpf (None Seen); Hyaline Cast 0-5 SEEN /lpf (0-5)
[2024-10-23 15:00] VITALS: BP 149/78; PULSE 86; RESP 15; O2SAT 95
[2024-10-23 15:19] LABS: Reflex Lactate? Y
[2024-10-23 15:31] VITALS: BP 149/78; PULSE 86; RESP 18; TEMP 36.6; O2SAT 100
== END 2024-10-23 15:32 | disposition home or self-care (01) ==
PROVIDERS: Emergency Provider Emergency Medicine; PCP Family Medicine; Visit Provider Emergency Medicine
DX: R10.33 Periumbilical pain (principal); R10.12 Left upper quadrant pain; R11.15 Cyclical vomiting syndrome unrelated to migraine; I10 Essential (primary) hypertension; F17.290 Nicotine dependence, other tobacco product, uncomplicated; Z79.02 Long term (current) use of antithrombotics/antiplatelets; Z79.82 Long term (current) use of aspirin; Z79.899 Other long term (current) drug therapy
CPT/HCPCS: 74022; 80053; 81001; 83605; 83690; 85025; 96365; 96375; 99282; A4216; J2405

== ENCOUNTER 2024-11-10 15:55 | Inpatient (IN) | payer MEDICARE, SELFPAY ==
[2024-11-10] VITALS (10 sets, daily range): BP systolic 138–185; BP diastolic 91–132; PULSE 102–140; RESP 15–25; TEMP 36.5–37.4; O2SAT 95–99; BMI 23.2; BMI 23.6
[2024-11-10 16:37] LABS: Absolute Neutrophil Count 17.7 X10^3/uL (2.0-7.7); Basophil# 0.02 X10^3/uL; Basophil% 0.1 % (0-1); Eosinophil# 0.05 X10^3/uL; Eosinophils% 0.3 % (0-5); Hematocrit 40.2 % (40-54); Hemoglobin 13.5 g/dL (13.0-16.5); Lymphocyte % 2.6 % (19-41); Mean Corp Hgb Conc 33.6 g/dL (32-36); Mean Corpuscular Hgb 28.1 pg (27.0-32.0); Mean Corpuscular Volume 83.6 fL (80-94); Mean Platelet Vol. 9.5 fl (6.2-12.0); Monocyte% 3.2 % (0-10); NRBC Flagged by Analyzer 0 % (0-5); Neutrophil # 17.72 X10^3/uL (2.7-7.7); Neutrophil % 93.3 % (47-70); POSITIVE DIFFERENTIAL YES; Platelet Count 579 K/mm3 (150-450); RBC Distribution Width CV 15.8 % (11.6-14.6); RBC Distribution Width SD 47.4 fl (35.1-43.9); Red Blood Count 4.81 M/mm3 (4.6-6.2)
--- NOTE | 2024-11-10 16:41 | CT_ITS ---
PROCEDURE: ABDOMEN/PELVIS W IV CONT ONLY REASON FOR EXAM: Lower abdominal pain TECHNIQUE: Abdomen and pelvis CT with intravenous contrast. COMPARISON: None. FINDINGS: Lung bases: Clear Hernia: Moderate hiatal hernia. Liver: Diffuse fatty infiltration. Gallbladder: Surgically absent. Spleen: Unremarkable. Pancreas: Unremarkable. Adrenals: Unremarkable. Kidneys: Normal renal sizes. No hydronephrosis. Bilateral hypodensities the largest in the left measuring 8.2 x 8.5 cm. There is nonspecific perinephric fat stranding. Bladder: Unremarkable. Reproductive Organs: Prostate measures 4.3 cm in transverse dimension. Bowel: Colonic diverticulosis without diverticulitis. Appendix: Normal. Lymph nodes: No suspicious lymph node enlargement. Vasculature: Mild diffuse atherosclerotic calcifications are noted. Peritoneum / Retroperitoneum: No ascites. No free air. Bones: Degenerative changes of the spine. CT/Abdomen/Pelvis W IV Cont ONLY IMPRESSION: 1. Moderate hiatal hernia. 2. Hepatic steatosis. 3. Bilateral renal cysts with nonspecific perinephric fat stranding 4. Mild prostatomegaly. One or more dose reduction techniques were used (e.g., Automated exposure contr ol, adjustment of the mA and/or kV according to patient size, use of iterative reconstruction technique). Reading Location: [facility]
[2024-11-10 16:50] LABS: Bacteria 0 SEEN /hpf (None Seen)
--- NOTE | 2024-11-10 16:50 | EX.ED.DYSGE1 ---
HPI <EMMA Funes - Last Filed: 11/10/24 21:45> History of Present Illness Chief Complaint: Nausea/Vomiting/Diarrhea Narrative Narrative: Patient presenting today with lower abdominal pain he has had over the past 3 days. He reports that his pain has been continuous and gradually worsening. He did have multiple bouts of diarrhea 2 days ago that did resolve. He reports that his bowel movements are now normal. Today he began vomiting and reports that his vomit is dark in color. He does have a previous history of upper GI bleed and states that he has an ulcer.. He did have a previous history of frequent NSAID use. He denies alcohol use. He does take Plavix and aspirin due to cardiac stents, he denies any other blood thinners. He denies fevers, chills, chest pain, shortness of breath. He does admit to daily marijuana use. [facility] <EMMA Funes - Last Filed: 11/10/24 21:45> [facility] Medical History B12 nutritional deficiency Claustrophobia Mild cognitive impairment Tobacco use HLD (hyperlipidemia) HTN (hypertension) Right adrenal mass History of kidney stones History of seizure Cyclic vomiting syndrome Hiatal hernia Heart attack Home Medications ?Medication ?Instructions ?Recorded ?Last Taken ?Type amlodipine 10 mg tablet 10 mg PO DAILY 11/11/22 Unknown History aspirin 81 mg chewable tablet 81 mg PO DAILY 11/11/22 Unknown History atorvastatin 40 mg tablet 40 mg PO DAILY 11/11/22 Unknown History citalopram 40 mg tablet 40 mg PO DAILY 11/11/22 Unknown History sucralfate 1 gram tablet 1 g PO 4X/DAY 11/11/22 Unknown History acetaminophen 500 mg tablet 500 mg PO Q6H PRN pain 08/22/23 Unknown History (Tylenol Extra Strength) clopidogrel 75 mg tablet (Plavix) 75 mg PO DAILY 08/22/23 Unknown History metoprolol succinate 25 mg 25 mg PO DAILY 08/22/23 Unknown History tablet,extended release 24 hr nitroglycerin 0.4 mg sublingual 0.4 mg sublingual Q5M PRN chest 08/22/23 Unknown History tablet pain dicyclomine 20 mg tablet 20 mg PO Q6H PRN abdominal 06/30/24 Unknown Rx cramping #20 tabs lisinopril 40 mg tablet 40 mg PO DAILY 07/10/24 Unknown History trazodone 100 mg tablet 100 mg PO QHS 09/02/24 Unknown History magnesium chloride 64 mg 128 mg (2 x 64 mg) PO BID #60 tabs 10/18/24 Unknown Rx (magnesium chloride) tablet,delayed release (Mag 64) fenofibrate nanocrystallized 145 145 mg PO DAILY 11/10/24 Unknown History mg tablet pantoprazole 40 mg tablet,delayed 40 mg PO DAILY 11/10/24 Unknown History release Allergy/AdvReac Type Severity Reaction Status Date / Time Penicillins (PCN) Allergy Severe Rash Verified 11/10/24 15:56 sertraline (From Zoloft) Allergy Severe Other Verified 11/10/24 15:56 meloxicam (From Mobic) Allergy Mild Itching Verified 11/10/24 15:56 chlorpromazine (From Allergy lethargic Verified 11/10/24 15:56 Thorazine) nitrofurantoin (From AdvReac Severe Rash Verified 11/10/24 15:56 Macrobid) Family History Mother Heart disease Father Heart disease Surgical History S/P primary angioplasty with coronary stent History of repair of hiatal hernia History of cholecystectomy Social History household members: spouse Smoking Status: Current every day smoker tobacco type: cigarettes and cigars per week: 28 alcohol intake: never details: Denies alcohol use and history of pancreatitis substance use type: does not use ROS <EMMA Funes - Last Filed: 11/10/24 21:45> ROS ED Constitutional Constitutional ED: Denies chills or fever(s) Cardiovascular Cardiovascular: Denies chest pain Respiratory/Chest Respiratory/Chest: Denies dyspnea Gastrointestinal Gastrointestinal: Reports abdominal pain, diarrhea, hematemesis, nausea and vomiting; Denies constipation or melena Genitourinary Genitourinary ED: Denies dysuria, hematuria or urinary urgency Musculoskeletal Musculoskeletal: Denies arthralgias or myalgias Integumentary Denies rash Neurologic Neurologic: Denies weakness EXAM <EMMA Funes - Last Filed: 11/10/24 21:45> Physical Exam Const Vital Signs: 11/10/24 15:56 11/10/24 15:59 11/10/24 16:59 Temperature 97.9 F Temperature Source Oral Pulse Rate 140 H 123 H 117 H Respiratory Rate 25 H 16 Blood Pressure 174/114 H 185/114 H Blood Pressure Mean 134 137 Pulse Ox 99 97 98 Oxygen Delivery Method Room Air Room Air Room Air 11/10/24 17:00 11/10/24 18:00 11/10/24 19:00 Temperature Temperature Source Pulse Rate 109 H 119 H 107 H Respiratory Rate 17 15 18 Blood Pressure 158/91 H 145/132 H 168/99 H Blood Pressure Mean 113 136 122 Pulse Ox 97 96 97 Oxygen Delivery Method Room Air Room Air 11/10/24 20:00 11/10/24 20:24 Temperature 99.3 F H Temperature Source Pulse Rate 110 H 108 H Respiratory Rate 18 24 H Blood Pressure 178/105 H 178/105 H Blood Pressure Mean 129 129 Pulse Ox 98 95 Oxygen Delivery Method Positive well nourished, well developed and no apparent distress General Appearance ED: well developed HEENT Reports normocephalic and head/scalp atraumatic Mouth ED: Yes moist mucous membranes normal Eyes PERRL and EOMs intact bilaterally Neck full ROM and supple Chest Wall inspection of chest normal Resp normal respiratory effort and clear to auscultation bilaterally Cardio regular rate and regular rhythm GI soft to palpation, non-distended and no masses GI Narrative: Tenderness across the lower abdomen, no rigidity or guarding. Back/Spine normal ROM and normal to inspection Extremity normal to inspection and full ROM Neuro oriented x3, CN's II-XII intact bilaterally, moves all extremities, no focal motor deficits and no sensory deficits noted Sensorium / Orientation: awake and alert Psych mental status grossly normal and thought process normal Skin no rashes or lesions noted and no wounds <Dr. Dewey Kam MD - Last Filed: 11/12/24 09:57> Physical Exam Const Vital Signs: 11/10/24 15:56 11/10/24 15:59 11/10/24 16:59 Temperature 97.9 F Temperature Source Oral Pulse Rate 140 H 123 H 117 H Respiratory Rate 25 H 16 Blood Pressure 174/114 H 185/114 H Blood Pressure Mean 134 137 Pulse Ox 99 97 98 Oxygen Delivery Method Room Air Room Air Room Air 11/10/24 17:00 11/10/24 18:00 11/10/24 19:00 Temperature Temperature Source Pulse Rate 109 H 119 H 107 H Respiratory Rate 17 15 18 Blood Pressure 158/91 H 145/132 H 168/99 H Blood Pressure Mean 113 136 122 Pulse Ox 97 96 97 Oxygen Delivery Method Room Air Room Air 11/10/24 20:00 11/10/24 20:24 Temperature 99.3 F H Temperature Source Pulse Rate 110 H 108 H Respiratory Rate 18 24 H Blood Pressure 178/105 H 178/105 H Blood Pressure Mean 129 129 Pulse Ox 98 95 Oxygen Delivery Method [facility] <EMMA Funes - Last Filed: 11/10/24 21:45> [facility] Narrative Medical decision making narrative: Patient presenting today with lower abdominal pain He has had over the past 3 days. He had diarrhea 2 days ago that did resolve. Today he began vomiting and noticed dark-colored vomit. He was seen here in the emergency department 10/17 and was admitted to the hospital for similar symptoms and upper GI bleed, they suspected a Shanna-Jaime tear and he was treated with a PPI. He also has a history of cyclic vomiting syndrome and admits to regular marijuana use. He does appear uncomfortable, he has tenderness across his lower abdomen. He does have dark-colored emesis. Labs obtained, he has a leukocytosis with a WBC of 19, sodium of 134, potassium 5.4, he has an STANLEY with a creatinine of 1.75. He also has lactic acidosis at 3.9. UA negative for UTI. Patient given [address] scan of the abdomen pelvis shows a hiatal hernia, fatty liver, bilateral renal cysts with nonspecific perinephric fat stranding, and mild prostamegaly. CT does not reveal any explanation for his abdominal pain, he has been seen in the ED multiple times in the past for abdominal pain and cyclic vomiting due to marijuana use. He was given multiple courses of morphine with improvement of his pain but does report still being uncomfortable. Suspect he has a Shanna-Jaime tear given his hematemesis. Given his upper GI bleed, STANLEY, lactic acidosis, and intractable abdominal pain feel patient would benefit from admission. I spoke with the hospitalist and patient admitted in stable condition. Lab Data Attestation: I reviewed the patient's lab results. Labs: Laboratory Results - last hr 11/10/24 11/10/24 11/10/24 16:29 16:45 17:41 WBC 19.0 H RBC 4.81 Hgb 13.5 Hct 40.2 MCV 83.6 MCH 28.1 MCHC 33.6 RDW Std Deviation 47.4 H RDW Coeff of Florencio 15.8 H Plt Count 579 H MPV 9.5 Immature Gran % (Auto) 0.500 Neut % (Auto) 93.3 H Lymph % (Auto) 2.6 L Dyer % (Auto) 3.2 Eos % (Auto) 0.3 Baso % (Auto) 0.1 Absolute Neuts (auto) 17.7 H Absolute Lymphs (auto) 0.50 L Nucleated RBC % 0 Sodium 134 L Potassium 5.4 H Chloride 102 Carbon Dioxide 15.0 L Anion Gap 17 H BUN 17 Creatinine 1.75 H Estim Creat Clear Calc 42.87 Est GFR (MDRD) Af Amer 50 L Est GFR (MDRD) Non-Af 42 L BUN/Creatinine Ratio 9.7 L Glucose 166 H Lactic Acid 3.9 H* Calcium 11.1 H Total Bilirubin 0.50 AST 39 H ALT 22 Alkaline Phosphatase 63 Total Protein 8.9 H Albumin 4.4 Globulin 4.5 H Albumin/Globulin Ratio 1.0 Lipase 30 L Urine Color Yellow Urine Clarity Clear Urine pH 5.0 Ur Specific [place] 1.025 Urine Protein 30 H Urine Glucose (UA) Normal Urine Ketones Negative Urine Occult Blood 150 H Urine Nitrite Negative Urine Bilirubin Negative Urine Urobilinogen 1 H Ur Leukocyte Esterase 25 H Urine RBC 5-10 SEEN Urine WBC 0-5 SEEN Ur Squamous Epith Cells 0-5 SEEN Calcium Oxalate Crystal 1+ Urine Bacteria 0 SEEN Hyaline Casts 10-25 SEEN Fine Granular Casts 0-5 SEEN WBC Casts 0-5 SEEN Urine Mucus 1+ Radiography Diagnostic Testing: Clinical Impression(s) from Imaging Studies Abdomen/Pelvis CT 11/10/24 16:41 IMPRESSION: 1. Moderate hiatal hernia. 2. Hepatic steatosis. 3. Bilateral renal cysts with nonspecific perinephric fat stranding 4. Mild prostatomegaly. One or more dose reduction techniques were used (e.g., Automated exposure control, adjustment of the mA and/or kV according to patient size, use of iterative reconstruction technique). Reading Location: [facility] <Dr. Dewey Kam MD - Last Filed: 11/12/24 09:57> [facility] Narrative Medical decision making narrative: Patient presenting today with lower abdominal pain He has had over the past 3 days. I have personally performed a face to face assessment of the patient and have reviewed the FRANCA Note. I performed a substantive portion of the visit including all aspects of the following. My interiano findings include: History is remarkable for history of cyclic vomiting from marijuana who presents with diarrhea and also 3 days of lower abdominal pain. He denies fever or chills. HePresents today because of increased pain. He reports vomiting today. He noted blood in his emesis. It was not the first time he vomited. He does admit to NSAID use. He denies alcohol use. He admits to marijuana use. He is not on and anticoagulant. He is on Plavix and aspirin. Patient was admitted towards the end of September for upper GI bleed. He was not seen by GI at that time. Patient denies black or maroon-colored stool. Patient denies antibiotic use in the past month. Patient denies ill contacts. He does endorse thirst and dry mouth. Exam is patient is tachycardic. HEENT is remarkable dry mucosa. Blood pressure is elevated. Heart is rapid and regular. There is no murmur, gallop or rub. Lungs are good auscultation. Abdomen is soft with diffuse tenderness. He has no guarding or peritoneal findings. There is no inguinal adenopathy. There is no CVA tenderness noted. He has a nonfocal neurologic exam. Medical Decision Making CBC, electrolyte panel, was obtained. Because of the elevated white count patient had a CAT scan of the abdomen. CT of the abdomen revealed a moderate size hiatal hernia, bilateral renal cysts with nonspecific perinephric fat stranding and mild enlargement of the prostate. She also evidence of fatty liver. Patient's blood work is remarkable for the elevated white count with shift. His electrolyte panel is remarkable for a CO2 of 15 with an anion gap of 17. His lactate is 3.9. His creatinine has increased from 1.18-1.75 and GFR has decreased to 42. Other additions or changes: The hospitalist Dr. Lowe was paged for admission. Since his CAT scan does not explain things significant. Who Lab Data Labs: Laboratory Results - last 24 hr 11/10/24 11/10/24 11/10/24 16:29 16:45 17:41 WBC 19.0 H RBC 4.81 Hgb 13.5 Hct 40.2 MCV 83.6 MCH 28.1 MCHC 33.6 RDW Std Deviation 47.4 H RDW Coeff of Florencio 15.8 H Plt Count 579 H MPV 9.5 Immature Gran % (Auto) 0.500 Neut % (Auto) 93.3 H Lymph % (Auto) 2.6 L Dyer % (Auto) 3.2 Eos % (Auto) 0.3 Baso % (Auto) 0.1 Absolute Neuts (auto) 17.7 H Absolute Lymphs (auto) 0.50 L Nucleated RBC % 0 Sodium 134 L Potassium 5.4 H Chloride 102 Carbon Dioxide 15.0 L Anion Gap 17 H BUN 17 Creatinine 1.75 H Estim Creat Clear Calc 42.87 Est GFR (MDRD) Af Amer 50 L Est GFR (MDRD) Non-Af 42 L BUN/Creatinine Ratio 9.7 L Glucose 166 H Lactic Acid 3.9 H* Calcium 11.1 H Total Bilirubin 0.50 AST 39 H ALT 22 Alkaline Phosphatase 63 Total Protein 8.9 H Albumin 4.4 Globulin 4.5 H Albumin/Globulin Ratio 1.0 Lipase 30 L Urine Color Yellow Urine Clarity Clear Urine pH 5.0 Ur Specific [place] 1.025 Urine Protein 30 H Urine Glucose (UA) Normal Urine Ketones Negative Urine Occult Blood 150 H Urine Nitrite Negative Urine Bilirubin Negative Urine Urobilinogen 1 H Ur Leukocyte Esterase 25 H Urine RBC 5-10 SEEN Urine WBC 0-5 SEEN Ur Squamous Epith Cells 0-5 SEEN Calcium Oxalate Crystal 1+ Urine Bacteria 0 SEEN Hyaline Casts 10-25 SEEN Fine Granular Casts 0-5 SEEN WBC Casts 0-5 SEEN Urine Mucus 1+ Radiography Diagnostic Testing: Clinical Impression(s) from Imaging Studies Abdomen/Pelvis CT 11/10/24 16:41 IMPRESSION: 1. Moderate hiatal hernia. 2. Hepatic steatosis. 3. Bilateral renal cysts with nonspecific perinephric fat stranding 4. Mild prostatomegaly. One or more dose reduction techniques were used (e.g., Automated exposure control, adjustment of the mA and/or kV according to patient size, use of iterative reconstruction technique). Reading Location: [facility] Management Discussion w/another healthcare provider: Hospitalist (Case discussed with Dr. Trey Lowe who admitted patient. He was a full admit.) Treatment and Re-Evaluation :: Patient presenting today with lower abdominal pain He has had over the past 3 days. I have personally performed a face to face assessment of the patient and have reviewed the FRANCA Note. I performed a substantive portion of the visit including all aspects of the following. My interiano findings include: History is remarkable for history of cyclic vomiting from marijuana who presents with diarrhea and also 3 days of lower abdominal pain. He denies fever or chills. HePresents today because of increased pain. He reports vomiting today. He noted blood in his emesis. It was not the first time he vomited. He does admit to NSAID use. He denies alcohol use. He admits to marijuana use. He is not on and anticoagulant. He is on Plavix and aspirin. Patient was admitted towards the end of September for upper GI bleed. He was not seen by GI at that time. Patient denies black or maroon-colored stool. Patient denies antibiotic use in the past month. Patient denies ill contacts. He does endorse thirst and dry mouth. Exam is patient is tachycardic. HEENT is remarkable dry mucosa. Blood pressure is elevated. Heart is rapid and regular. There is no murmur, gallop or rub. Lungs are good auscultation. Abdomen is soft with diffuse tenderness. He has no guarding or peritoneal findings. There is no inguinal adenopathy. There is no CVA tenderness noted. He has a nonfocal neurologic exam. Medical Decision Making CBC, electrolyte panel, was obtained. Because of the elevated white count patient had a CAT scan of the abdomen. CT of the abdomen revealed a moderate size hiatal hernia, bilateral renal cysts with nonspecific perinephric fat stranding and mild enlargement of the prostate. She also evidence of fatty liver. Patient's blood work is remarkable for the elevated white count with shift. His electrolyte panel is remarkable for a CO2 of 15 with an anion gap of 17. His lactate is 3.9. His creatinine has increased from 1.18-1.75 and GFR has decreased to 42. Other additions or changes: The hospitalist Dr. Lowe was paged for admission. Since his CAT scan does not explain things significant. Discharge Plan Dx/Rx/DC Orders Clinical Impression: Abdominal pain, Shanna-Jaime tear, STANLEY (acute kidney injury), Acute lactic acidosis, Marijuana abuse, Leukocytosis, Sinus tachycardia seen on cafeteria monitor, Elevated blood-pressure reading without diagnosis of hypertension, Antiplatelet or antithrombotic long-term use Disposition Disposition: Acute Care Hospital [facility] Discharge Date/Time: 11/10/24 22:53
[2024-11-10] MEDS: Morphine 4 MG/ML Syringe 6 MG IV (16:57)
[2024-11-10] MEDS: 0.9% Normal Saline (1000mL) 1,000 ML 999 ML IV ×2 (16:57→19:09)
[2024-11-10] MEDS: Ondansetron 4 MG/2 ML Vial IV (16:57)
[2024-11-10 17:02] LABS: Color, Urine Yellow (Yellow); Glucose, Dipstick Normal (Normal); Ketone-Dipstick Negative (Negative); Leukocyte Esterase-Dipstick 25 /ul (Negative); Nitrite-Dipstick Negative (Negative); Occult Blood-Urine 150 /ul (Negative); Protein-Dipstick 30 mg/dl (Negative); Specific Gravity, Urine 1.025 (1.002-1.030); Urine Bilirubin Dipstick Negative (Negative); Urine Clarity Clear (Clear); Urine Urobilinogen 1 mg/dl (Normal)
[2024-11-10 17:04] LABS: AST(SGOT) 39 U/L (15-37); Alanine Aminotransfer ALT/SGPT 22 U/L (16-61); Albumin, Serum 4.4 g/dL (3.2-5.0); Alkaline Phosphatase 63 U/L (45-117); Anion Gap 17 (5-15); BUN 17 mg/dL (7-18); BUN/Creat Ratio 9.7 RATIO (10-20); Calcium,Total 11.1 mg/dL (8.5-10.1); Chloride 102 mmol/L (98-107); Creatinine, Serum 1.75 mg/dL (0.70-1.30); EST Glomerular Filtration Rate 42 mL/min (>60); Est Glom Filt Rate - Afr Amer 50 mL/min (>60); Estimated Creatinine Clearance 42.87 ml/min; Globulin 4.5 g/dL (2.2-4.2); Glucose 166 mg/dL (74-106); Potassium 5.4 mmol/L (3.5-5.1); Protein, Total 8.9 g/dL (6.4-8.2); Sodium Level 134 mmol/L (136-145)
[2024-11-10 17:18] LABS: Calcium Oxalate Crystals Ur 1+ /hpf (<or=2+); Hyaline Cast 10-25 SEEN /lpf (0-5); Mucous, Urine 1+ /hpf (<or=2+); Red Blood Cells-Urine 5-10 SEEN /hpf (0-5); Squamous Epithelial Cells - UA 0-5 SEEN /hpf (0-5); White Blood Cells 0-5 SEEN /hpf (0-5)
[2024-11-10 17:19] LABS: Fine Granular Cast- Urine 0-5 SEEN /lpf (0-5); White Cell Cast 0-5 SEEN /lpf (None Seen)
[2024-11-10 17:46] LABS: Lipase 30 U/L (73-393)
[2024-11-10 18:27] LABS: Lactic Acid 3.9 mmol/L (0.4-1.9)
[2024-11-10] MEDS: Morphine 4 MG/ML Syringe IV (20:23)
--- NOTE | 2024-11-10 20:55 | PCM.HP.STD ---
[facility] - General General Date of Service: 11/10/24 Chief Complaint: Nausea and vomiting HPI Narrative MINDY PENN, is a 64 M who presents to the emergency room with chief complaint of lower abdominal pain which began 3 days ago. He states the pain is continuous and gradually worsening. He has had multiple bouts of diarrhea 2 days ago that have subsequently resolved. Today he began vomiting and his emesis is dark in color. He does have previous history of upper GI bleed and states that he has an ulcer. He has a known history of frequent NSAID use, denies alcohol use but is on Plavix and aspirin for cardiac stents. He denies any fevers, chills or chest pains or shortness of breath at present time and admits to being a routine marijuana user daily. [facility] Medical History B12 nutritional deficiency Claustrophobia Mild cognitive impairment Tobacco use HLD (hyperlipidemia) HTN (hypertension) Right adrenal mass History of kidney stones History of seizure Cyclic vomiting syndrome Hiatal hernia Heart attack Home Medications ?Medication ?Instructions ?Recorded ?Last Taken ?Type amlodipine 10 mg tablet 10 mg PO DAILY 11/11/22 Unknown History aspirin 81 mg chewable tablet 81 mg PO DAILY 11/11/22 Unknown History atorvastatin 40 mg tablet 40 mg PO DAILY 11/11/22 Unknown History citalopram 40 mg tablet 40 mg PO DAILY 11/11/22 Unknown History sucralfate 1 gram tablet 1 g PO 4X/DAY 11/11/22 Unknown History acetaminophen 500 mg tablet 500 mg PO Q6H PRN pain 08/22/23 Unknown History (Tylenol Extra Strength) clopidogrel 75 mg tablet (Plavix) 75 mg PO DAILY 08/22/23 Unknown History metoprolol succinate 25 mg 25 mg PO DAILY 08/22/23 Unknown History tablet,extended release 24 hr nitroglycerin 0.4 mg sublingual 0.4 mg sublingual Q5M PRN chest 08/22/23 Unknown History tablet pain dicyclomine 20 mg tablet 20 mg PO Q6H PRN abdominal 06/30/24 Unknown Rx cramping #20 tabs lisinopril 40 mg tablet 40 mg PO DAILY 07/10/24 Unknown History trazodone 100 mg tablet 100 mg PO QHS 09/02/24 Unknown History magnesium chloride 64 mg 128 mg (2 x 64 mg) PO BID #60 tabs 10/18/24 Unknown Rx (magnesium chloride) tablet,delayed release (Mag 64) fenofibrate nanocrystallized 145 145 mg PO DAILY 11/10/24 Unknown History mg tablet pantoprazole 40 mg tablet,delayed 40 mg PO DAILY 11/10/24 Unknown History release Allergy/AdvReac Type Severity Reaction Status Date / Time Penicillins (PCN) Allergy Severe Rash Verified 11/10/24 15:56 sertraline (From Zoloft) Allergy Severe Other Verified 11/10/24 15:56 meloxicam (From Mobic) Allergy Mild Itching Verified 11/10/24 15:56 chlorpromazine (From Allergy lethargic Verified 11/10/24 15:56 Thorazine) nitrofurantoin (From AdvReac Severe Rash Verified 11/10/24 15:56 Macrobid) Family History Mother Heart disease Father Heart disease Surgical History S/P primary angioplasty with coronary stent History of repair of hiatal hernia History of cholecystectomy Social History household members: spouse Smoking Status: Current every day smoker tobacco type: cigars per week: 28 alcohol intake: never details: Denies alcohol use and history of pancreatitis substance use type: does not use ROS Constitutional Constitutional: Denies chills or fever(s) Eyes Eyes: Denies change in vision ENT HEENT: Denies abnormal hearing Cardiovascular Cardiovascular: Denies chest pain Respiratory/Chest Respiratory/Chest: Denies cough Gastrointestinal Gastrointestinal: Reports abdominal pain, nausea and vomiting Genitourinary Genitourinary: Denies dysuria Musculoskeletal Musculoskeletal: Denies back pain Integumentary Integumentary: Denies dry skin Neurologic Neurologic: Denies abnormal speech or confusion Psychiatric Psychiatric: Denies depression Hematologic/Lymphatic Hematologic/Lymphatic: Denies anemia Vital Signs Vital Signs Vital Signs: 11/10/24 15:56 11/10/24 15:59 11/10/24 16:59 Temperature 97.9 F Temperature Source Oral Pulse Rate 140 H 123 H 117 H Respiratory Rate 25 H 16 Blood Pressure 174/114 H 185/114 H Blood Pressure Mean 134 137 Pulse Ox 99 97 98 Oxygen Delivery Method Room Air Room Air Room Air 11/10/24 17:00 11/10/24 18:00 11/10/24 19:00 Temperature Temperature Source Pulse Rate 109 H 119 H 107 H Respiratory Rate 17 15 18 Blood Pressure 158/91 H 145/132 H 168/99 H Blood Pressure Mean 113 136 122 Pulse Ox 97 96 97 Oxygen Delivery Method Room Air Room Air 11/10/24 20:00 11/10/24 20:24 Temperature 99.3 F H Temperature Source Pulse Rate 110 H 108 H Respiratory Rate 18 24 H Blood Pressure 178/105 H 178/105 H Blood Pressure Mean 129 129 Pulse Ox 98 95 Oxygen Delivery Method Weight Weight: 162 lb Body Mass Index (BMI) 23.2 Physical Exam Const oriented x3 General Appearance: cooperative and well developed HEENT normocephalic and head/scalp atraumatic Eyes PERRL and EOMs intact bilaterally Neck no lymphadenopathy Lymph Lymphatic: no lymphadenopathy noted Resp normal respiratory effort, normal air movement and clear to auscultation bilaterally Cardio regular rate, regular rhythm, S1 normal heart sound, S2 normal heart sound and no murmurs GI Palpation: tender LLQ; Negative for guarding or rebound tenderness present Extremity normal capillary refill General Extremity: Negative for edema Skin General Skin Exam: Negative for no breakdown Neuro no focal motor deficits and no sensory deficits noted Psych thought process normal, cooperative and affect normal Results Lab / Micro Data 11/10/24 16:29 11/10/24 16:29 Labs: Laboratory Results - last 24 hr 11/10/24 16:29: WBC 19.0 H, RBC 4.81, Hgb 13.5, Hct 40.2, MCV 83.6, MCH 28.1, MCHC 33.6, RDW Std Deviation 47.4 H, RDW Coeff of Florencio 15.8 H, Plt Count 579 H, MPV 9.5, Immature Gran % (Auto) 0.500, Neut % (Auto) 93.3 H, Lymph % (Auto) 2.6 L, [place] % (Auto) 3.2, Eos % (Auto) 0.3, Baso % (Auto) 0.1, Absolute Neuts (auto) 17.7 H, Absolute Lymphs (auto) 0.50 L, Nucleated RBC % 0, Sodium 134 L, Potassium 5.4 H, Chloride 102, Carbon Dioxide 15.0 L, Anion Gap 17 H, BUN 17, Creatinine 1.75 H, Estim Creat Clear Calc 42.87, Est GFR (MDRD) Af Amer 50 L, Est GFR (MDRD) Non-Af 42 L, BUN/Creatinine Ratio 9.7 L, Glucose 166 H, Calcium 11.1 H, Total Bilirubin 0.50, AST 39 H, ALT 22, Alkaline Phosphatase 63, Total Protein 8.9 H, Albumin 4.4, Globulin 4.5 H, Albumin/Globulin Ratio 1.0, Lipase 30 L 11/10/24 16:45: Urine Color Yellow, Urine Clarity Clear, Urine pH 5.0, Ur Specific [place] 1.025, Urine Protein 30 H, Urine Glucose (UA) Normal, Urine Ketones Negative, Urine Occult Blood 150 H, Urine Nitrite Negative, Urine Bilirubin Negative, Urine Urobilinogen 1 H, Ur Leukocyte Esterase 25 H, Urine RBC 5-10 SEEN, Urine WBC 0-5 SEEN, Ur Squamous Epith Cells 0-5 SEEN, Calcium Oxalate Crystal 1+, Urine Bacteria 0 SEEN, Hyaline Casts 10-25 SEEN, Fine Granular Casts 0-5 SEEN, WBC Casts 0-5 SEEN, Urine Mucus 1+ 11/10/24 17:41: Lactic Acid 3.9 H* Micro: Microbiology 11/10/24 16:52 Vomitus Gastric Occult Blood - Final Occult Blood Positive Imaging Radiology Impression Abdomen/Pelvis CT 11/10/24 16:41 IMPRESSION: 1. Moderate hiatal hernia. 2. Hepatic steatosis. 3. Bilateral renal cysts with nonspecific perinephric fat stranding 4. Mild prostatomegaly. One or more dose reduction techniques were used (e.g., Automated exposure control, adjustment of the mA and/or kV according to patient size, use of iterative reconstruction technique). Reading Location: [facility] Assessment & Plan Assessment/Plan (1) Abdominal pain: (2) Acidosis, lactic: (3) Acute dehydration: (4) Acute generalized abdominal pain: (5) Cyclic vomiting syndrome: PLAN: Plan 1 abdominal pain, nausea and vomiting with history of cyclic vomiting syndrome?admit patient to general medical floor IV hydration with normal saline at a rate of 125 cc/h, repeat BMP, CBC in a.m. will add Zofran as needed for nausea. Will also give morphine 4 mg IV every 2 hours significant pain 2. DVT prophylaxis will add SCDs 3. Hypertension?can add as needed hydralazine if needed 4. Hyperlipidemia?hold statin while patient is not tolerating p.o.
[2024-11-10 21:50] LABS: Reflex Lactate? Y
[2024-11-10 22:47] LABS: Lactic Acid 0.7 mmol/L (0.4-1.9)
[2024-11-10] MEDS: 0.9% Normal Saline (1000mL) 1,000 ML 125 ML IV (22:47)
[2024-11-10] MEDS: 0.9% Saline Lock 10 ML Syringe IV (23:59)
[2024-11-11] VITALS (7 sets, daily range): BP systolic 152–172; BP diastolic 90–104; PULSE 80–98; RESP 16–18; TEMP 36.3–36.9; O2SAT 96–99
[2024-11-11] MEDS: 0.9% Saline Lock 10 ML Syringe IV ×5 (02:53→22:29)
[2024-11-11] MEDS: Ondansetron 4 MG/2 ML Vial IV ×2 (02:53→13:42)
[2024-11-11] MEDS: Morphine 4 MG/ML Syringe IV ×4 (05:22→15:58)
[2024-11-11 06:35] LABS: Absolute Neutrophil Count 9.8 X10^3/uL (2.0-7.7); Basophil# 0.02 X10^3/uL; Basophil% 0.2 % (0-1); Hematocrit 30.4 % (40-54); Hemoglobin 10.4 g/dL (13.0-16.5); Lymphocyte % 8.1 % (19-41); Mean Corp Hgb Conc 34.2 g/dL (32-36); Mean Corpuscular Hgb 28.9 pg (27.0-32.0); Mean Corpuscular Volume 84.4 fL (80-94); Mean Platelet Vol. 9.7 fl (6.2-12.0); Monocyte# 1.48 X10^3/uL; Monocyte% 11.9 % (0-10); NRBC Flagged by Analyzer 0 % (0-5); Neutrophil # 9.82 X10^3/uL (2.7-7.7); Neutrophil % 79.2 % (47-70); Platelet Count 386 K/mm3 (150-450); RBC Distribution Width CV 15.9 % (11.6-14.6); RBC Distribution Width SD 48.9 fl (35.1-43.9); White Blood Count 12.4 K/mm3 (4.4-11.0)
[2024-11-11 07:13] LABS: Anion Gap 11 (5-15); BUN 21 mg/dL (7-18); BUN/Creat Ratio 19.1 RATIO (10-20); Calcium,Total 9.4 mg/dL (8.5-10.1); Chloride 108 mmol/L (98-107); EST Glomerular Filtration Rate 71 mL/min (>60); Est Glom Filt Rate - Afr Amer 86 mL/min (>60); Estimated Creatinine Clearance 68.21 ml/min; Glucose 113 mg/dL (74-106); Sodium Level 140 mmol/L (136-145)
[2024-11-11] MEDS: 0.9% Normal Saline (1000mL) 1,000 ML 125 ML IV (07:16)
[2024-11-11] MEDS: Metoclopramide 10 MG/2 ML Vial 5 MG IV ×2 (09:08→18:48)
--- NOTE | 2024-11-11 09:56 | PCM.PN.HOSP ---
Subjective Subjective Doing well, no issues overnight Objective Data Objective Data Vital Signs: Vital Signs Temp Pulse Resp BP Pulse Ox O2 Del Method 97.8 F 94 18 154/102 H 98 Room Air 11/11/24 09:02 11/11/24 09:02 11/11/24 09:02 11/11/24 09:02 11/11/24 09:02 11/11/24 09:11 Oxygen Delivery Method Room Air Weight: 165 lb 2.02 oz Body Mass Index (BMI) 23.6 Intake & Output: Intake and Output for Last 24 Hours 11/10/24 11/11/24 11/12/24 03:59 03:59 03:59 Intake Total 2049 1250 / 1250 Output Total 160 / 160 Balance 2049 1090 / 1090 Lab / Micro Data 11/11/24 06:11 11/11/24 06:11 Labs: Laboratory Results - last 24 hr 11/10/24 16:29: WBC 19.0 H, RBC 4.81, Hgb 13.5, Hct 40.2, MCV 83.6, MCH 28.1, MCHC 33.6, RDW Std Deviation 47.4 H, RDW Coeff of Flore[place]io 15.8 H, Plt Count 579 H, MPV 9.5, Immature Gran % (Auto) 0.500, Neut % (Auto) 93.3 H, Lymph % (Auto) 2.6 L, [place] % (Auto) 3.2, Eos % (Auto) 0.3, Baso % (Auto) 0.1, Absolute Neuts (auto) 17.7 H, Absolute Lymphs (auto) 0.50 L, Nucleated RBC % 0, Sodium 134 L, Potassium 5.4 H, Chloride 102, Carbon Dioxide 15.0 L, Anion Gap 17 H, BUN 17, Creatinine 1.75 H, Estim Creat Clear Calc 42.87, Est GFR (MDRD) Af Amer 50 L, Est GFR (MDRD) Non-Af 42 L, BUN/Creatinine Ratio 9.7 L, Glucose 166 H, Calcium 11.1 H, Total Bilirubin 0.50, AST 39 H, ALT 22, Alkaline Phosphatase 63, Total Protein 8.9 H, Albumin 4.4, Globulin 4.5 H, Albumin/Globulin Ratio 1.0, Lipase 30 L 11/10/24 16:45: Urine Color Yellow, Urine Clarity Clear, Urine pH 5.0, Ur Specific [place] 1.025, Urine Protein 30 H, Urine Glucose (UA) Normal, Urine Ketones Negative, Urine Occult Blood 150 H, Urine Nitrite Negative, Urine Bilirubin Negative, Urine Urobilinogen 1 H, Ur Leukocyte Esterase 25 H, Urine RBC 5-10 SEEN, Urine WBC 0-5 SEEN, Ur Squamous Epith Cells 0-5 SEEN, Calcium Oxalate Crystal 1+, Urine Bacteria 0 SEEN, Hyaline Casts 10-25 SEEN, Fine Granular Casts 0-5 SEEN, WBC Casts 0-5 SEEN, Urine Mucus 1+ 11/10/24 17:41: Lactic Acid 3.9 H* 11/10/24 22:15: Lactic Acid 0.7 11/11/24 06:11: WBC 12.4 H, RBC 3.60 L, Hgb 10.4 L, Hct 30.4 L, MCV 84.4, MCH 28.9, MCHC 34.2, RDW Std Deviation 48.9 H, RDW Coeff of Flore[place]io 15.9 H, Plt Count 386, MPV 9.7, Immature Gran % (Auto) 0.600, Neut % (Auto) 79.2 H, Lymph % (Auto) 8.1 L, [place] % (Auto) 11.9 H, Eos % (Auto) 0.0, Baso % (Auto) 0.2, Absolute Neuts (auto) 9.8 H, Absolute Lymphs (auto) 1.00, Nucleated RBC % 0, Sodium 140, Potassium 4.0, Chloride 108 H, Carbon Dioxide 20.0 L, Anion Gap 11, BUN 21 H, Creatinine 1.10, Estim Creat Clear Calc 68.21, Est GFR (MDRD) Af Amer 86, Est GFR (MDRD) Non-Af 71, BUN/Creatinine Ratio 19.1, Glucose 113 H, Calcium 9.4 Micro: Microbiology 11/10/24 16:52 Vomitus Gastric Occult Blood - Final Occult Blood Positive Radiography Diagnostic Testing: Radiology Impression Abdomen/Pelvis CT 11/10/24 16:41 IMPRESSION: 1. Moderate hiatal hernia. 2. Hepatic steatosis. 3. Bilateral renal cysts with nonspecific perinephric fat stranding 4. Mild prostatomegaly. One or more dose reduction techniques were used (e.g., Automated exposure control, adjustment of the mA and/or kV according to patient size, use of iterative reconstruction technique). Reading Location: [facility] Physical Exam Narrative General: Alert, Oriented x3, Cooperative, No apparent distress HEENT: Atraumatic, PERRLA, EOMI, Normocephalic Oral: Moist Mucosa Neck: Supple, No JVD Lungs: Diminished, Normal air movement, No rhonchi, No wheeze, No rales Cardiovascular: Regular rate, Regular Rhythm, Normal S1, Normal S2, No murmurs Abdomen: Soft, minimally tender, Non-Distended, No Hepato-splenomegaly Extremities: No edema, Capillary Refill Less than 3 Seconds Skin: No rashes, No breakdown Musculoskeletal: No Tenderness to Palpation of Joints or Extremities Neurological: No focal neurological deficits, Motor Exam 5/5 strength throughout, Sensory exam intact to light touch and pain Psych/Mental Status: Normal Affect, Appropriate Assessment & Plan Assessment/Plan (1) Abdominal pain: (2) Acute dehydration: (3) Acute generalized abdominal pain: (4) Cyclic vomiting syndrome: PLAN: Plan 1. Left lower quadrant abdominal pain with leukocytosis with cyclic vomiting ? Fecal occult did come back positive and hemoglobin went from 13.5 down to 10.4 ?Will recheck H&H at 1 PM if it continues to go down we will consult GI for scope ? CT of the abdomen pelvis does not demonstrate any signs of infection or diverticulitis he had a similar episode at the end of September ? He was told at that time that he had Shanna-Jaime tear though no endoscopy was performed at that time ? Continue with PPI 2. Essential HTN/HLD ? Continue with lisinopril and metoprolol ? Blood pressures are stable ? Will monitor make adjustments as necessary ? Will hold Plavix 3. Anxiety/depression ? Stable ? Continue with his home medications DVT: SCDs Charges/Coding Visit Charges Inpatient E&M: 32217 Subs Hosp L2
[2024-11-11] MEDS: Sucralfate 1 GM Tablet PO ×3 (11:40→21:42)
[2024-11-11 12:57] LABS: Hematocrit 29.4 % (40-54); Hemoglobin 9.9 g/dL (13.0-16.5)
[2024-11-11] MEDS: Metoprolol(XL)Succ 25 MG Tablet PO (13:39)
[2024-11-11] MEDS: Ensure Plus High Protein 120 ML LIQUID PO ×2 (15:53→16:00)
--- NOTE | 2024-11-11 15:58 | CASEMGMT ---
CARIN AMOR Assessment Face to Face with patient for initial transition planning/care coordination assessment. CARIN AMOR introduced self and role at [facility], pt voices understanding. Pt is A&Ox4 and is resting comfortably in bed and is calm. Care providers, pharmacy, and demographics verified. Admitting dx: N/V PCP: Arias Lemus Specialists: Alina (GI), Karthik (Neuro) [facility]erred [facility] [place] [facility] Prescription Benefit: Yes LNOK: Joan (W) Living Arrangements: Pt lives with his in a ground level apartment with 2 steps to enter ADLs/IADLs: Ind Transportation: Self, DME: BP machine. Cane. Denies needs HHC/SNF: Denies Hx or needs Pt?s goal: Home Plan: Home, anticipate no needs. 6-Click score is 24. Pt denies the need for OP Tx or CCN. Pt states that he feels safe returning home with his once he is medically ready and denies further concerns at this time. Lauro Castillo RN, CM
[2024-11-11] MEDS: Atorvastatin Calcium 40 MG Tablet PO (21:42)
[2024-11-11] MEDS: traZODone 100 MG Tablet PO (22:29)
[2024-11-12] VITALS (8 sets, daily range): BP systolic 147–161; BP diastolic 84–97; PULSE 68–86; RESP 16–18; TEMP 36.6–37; O2SAT 97–100
[2024-11-12 06:03] LABS: Absolute Lymphocyte Count 1.17 X10^3/uL (0.83-4.51); Absolute Neutrophil Count 6.7 X10^3/uL (2.0-7.7); Basophil# 0.04 X10^3/uL; Basophil% 0.5 % (0-1); Eosinophil# 0.08 X10^3/uL; Eosinophils% 0.9 % (0-5); Hematocrit 29.8 % (40-54); Hemoglobin 9.8 g/dL (13.0-16.5); Lymphocyte # 1.17 X10^3/ul (0.83-4.51); Lymphocyte % 13.2 % (19-41); Mean Corp Hgb Conc 32.9 g/dL (32-36); Mean Corpuscular Hgb 28.4 pg (27.0-32.0); Mean Corpuscular Volume 86.4 fL (80-94); Mean Platelet Vol. 9.3 fl (6.2-12.0); Monocyte# 0.81 X10^3/uL; Monocyte% 9.1 % (0-10); NRBC Flagged by Analyzer 0 % (0-5); Neutrophil # 6.71 X10^3/uL (2.7-7.7); Neutrophil % 75.7 % (47-70); Platelet Count 322 K/mm3 (150-450); RBC Distribution Width CV 16.2 % (11.6-14.6); RBC Distribution Width SD 51.1 fl (35.1-43.9); Red Blood Count 3.45 M/mm3 (4.6-6.2); White Blood Count 8.9 K/mm3 (4.4-11.0)
[2024-11-12] MEDS: Sucralfate 1 GM Tablet PO ×4 (06:07→21:54)
[2024-11-12 06:15] LABS: Anion Gap 9 (5-15); BUN 17 mg/dL (7-18); BUN/Creat Ratio 22.3 RATIO (10-20); Calcium,Total 8.9 mg/dL (8.5-10.1); Chloride 107 mmol/L (98-107); Creatinine, Serum 0.76 mg/dL (0.70-1.30); EST Glomerular Filtration Rate 109 mL/min (>60); Est Glom Filt Rate - Afr Amer 131 mL/min (>60); Estimated Creatinine Clearance 93.78 ml/min; Glucose 88 mg/dL (74-106); Potassium 3.8 mmol/L (3.5-5.1); Sodium Level 137 mmol/L (136-145)
[2024-11-12] MEDS: Metoprolol(XL)Succ 25 MG Tablet PO (08:03)
[2024-11-12] MEDS: Ensure Plus High Protein 120 ML LIQUID PO ×2 (08:03→17:17)
[2024-11-12] MEDS: Pantoprazole Sodium 40 MG Tablet PO (08:03)
[2024-11-12] MEDS: Citalopram 40 MG TABLET PO (08:03)
[2024-11-12] MEDS: 0.9% Saline Lock 10 ML Syringe IV ×4 (11:08→22:14)
[2024-11-12] MEDS: Ondansetron 4 MG/2 ML Vial IV (11:08)
--- NOTE | 2024-11-12 11:18 | EX.PCM.CON.G ---
HPI Consult Data Date of Consult: 11/12/24 HPI Narrative Reason for Consultation: Anemia HPI Narrative: MINDY PENN, is a 64 M who presents to the emergency room with chief complaint of lower abdominal pain which began 3 days ago. He states the pain is continuous and gradually worsening. He has had multiple bouts of diarrhea 2 days ago that have subsequently resolved. He came to the ED after he began vomiting and his emesis is dark in color. He does have previous history of upper GI bleed and states that he has an ulcer. He has a known history of frequent NSAID use, denies alcohol use but is on Plavix and aspirin for cardiac stents. He denies any fevers, chills or chest pains or shortness of breath at present time and admits to being a routine marijuana user daily. PENDING SALE TO [facility] Medical History B12 nutritional deficiency Claustrophobia Mild cognitive impairment Tobacco use HLD (hyperlipidemia) HTN (hypertension) Right adrenal mass History of kidney stones History of seizure Cyclic vomiting syndrome Hiatal hernia Heart attack Medical History no medical history Home Medications ?Medication ?Instructions ?Recorded ?Last Taken ?Type amlodipine 10 mg tablet 10 mg PO DAILY 11/11/22 Unknown History aspirin 81 mg chewable tablet 81 mg PO DAILY 11/11/22 Unknown History atorvastatin 40 mg tablet 40 mg PO DAILY 11/11/22 Unknown History citalopram 40 mg tablet 40 mg PO DAILY 11/11/22 Unknown History sucralfate 1 gram tablet 1 g PO 4X/DAY 11/11/22 Unknown History acetaminophen 500 mg tablet 500 mg PO Q6H PRN pain 08/22/23 Unknown History (Tylenol Extra Strength) clopidogrel 75 mg tablet (Plavix) 75 mg PO DAILY 08/22/23 Unknown History metoprolol succinate 25 mg 25 mg PO DAILY 08/22/23 Unknown History tablet,extended release 24 hr nitroglycerin 0.4 mg sublingual 0.4 mg sublingual Q5M PRN chest 08/22/23 Unknown History tablet pain dicyclomine 20 mg tablet 20 mg PO Q6H PRN abdominal 06/30/24 Unknown Rx cramping #20 tabs lisinopril 40 mg tablet 40 mg PO DAILY 07/10/24 Unknown History trazodone 100 mg tablet 100 mg PO QHS 09/02/24 Unknown History magnesium chloride 64 mg 128 mg (2 x 64 mg) PO BID #60 tabs 10/18/24 Unknown Rx (magnesium chloride) tablet,delayed release (Mag 64) fenofibrate nanocrystallized 145 145 mg PO DAILY 11/10/24 Unknown History mg tablet pantoprazole 40 mg tablet,delayed 40 mg PO DAILY 11/10/24 Unknown History release ondansetron 4 mg disintegrating 4 mg PO Q6H PRN nausea and 11/12/24 Unknown Rx tablet vomiting #30 tabs Allergy/AdvReac Type Severity Reaction Status Date / Time Penicillins (PCN) Allergy Severe Rash Verified 11/10/24 15:56 sertraline (From Zoloft) Allergy Severe Other Verified 11/10/24 15:56 meloxicam (From Mobic) Allergy Mild Itching Verified 11/10/24 15:56 chlorpromazine (From Allergy lethargic Verified 11/10/24 15:56 Thorazine) nitrofurantoin (From AdvReac Severe Rash Verified 11/10/24 15:56 Macrobid) Family History Mother Heart disease Father Heart disease Family History no significant family his Surgical History S/P primary angioplasty with coronary stent History of repair of hiatal hernia History of cholecystectomy Surgical History no surgical history Social History household members: spouse Smoking Status: Current every day smoker tobacco type: cigarettes and cigars per week: 28 alcohol intake: never details: Denies alcohol use and history of pancreatitis substance use type: does not use ROS Constitutional Constitutional: Denies fatigue, fever(s), poor appetite, weight gain or weight loss Gastrointestinal Gastrointestinal: Denies belching, bloating, change in bowel habits, change in stool character, chewing difficulty, coffee ground emesis, constipation, cramping, diarrhea, dyspepsia, dysphagia, early satiety, excessive flatus, fecal incontinence, heartburn, hematemesis, hematochezia, hemorrhoids, loose stools, melena, nausea, odynophagia, rectal bleeding, tenesmus, vomiting or weight changes Physical Exam Const alert, oriented x3, no apparent distress and healthy appearing General Appearance: cooperative GI normal to inspection, nondistended, normoactive bowel sounds, soft to palpation, non-tender and non-distended Percussion: normal to percussion Rectal Exam: deferred Lab / Micro Data 11/13/24 06:36 11/13/24 06:36 Labs: Laboratory Results - last 24 hr 11/13/24 06:36: WBC 5.7, RBC 3.29 L, Hgb 9.5 L, Hct 28.2 L, MCV 85.7, MCH 28.9, MCHC 33.7, RDW Std Deviation 50.4 H, RDW Coeff of [place]ore[place]io 15.9 H, Plt Count 262, MPV 9.0, Immature Gran % (Auto) 0.500, Neut % (Auto) 69.3, Lymph % (Auto) 14.7 L, [place] % (Auto) 12.7 H, Eos % (Auto) 2.3, Baso % (Auto) 0.5, Absolute Neuts (auto) 4.0, Absolute Lymphs (auto) 0.84, Nucleated RBC % 0, APTT 31.5, Sodium 135 L, Potassium 3.6, Chloride 106, Carbon Dioxide 23.0, Anion Gap 6, BUN 10, Creatinine 0.81, Estim Creat Clear Calc 92.63, Est GFR (MDRD) Af Amer 122, Est GFR (MDRD) Non-Af 101, BUN/Creatinine Ratio 12.3, Glucose 86, Calcium 8.7 Assessment & Plan Assessment/Plan (1) Shanna-Jaime tear: (2) Abdominal pain: (3) Acute dehydration: (4) Acute generalized abdominal pain: (5) Cyclic vomiting syndrome: PLAN: Plan 1. Left lower quadrant abdominal pain with leukocytosis with cyclic vomiting ? Fecal occult did come back positive and hemoglobin went from 13.5 down to 10.4 ?Will recheck H&H at 1 PM ? CT of the abdomen pelvis does not demonstrate any signs of infection or diverticulitis he had a similar episode at the end of September ? He was told at that time that he had Shanna-Jaime tear though no endoscopy was performed at that time -His hemoglobin has been decreasing all way down to 9 so we will perform an upper endoscopy. ? Continue with PPI DVT: SCDs Charges/Coding Visit Charges Inpatient E&M: 99493 Init Hosp L3
[2024-11-12] MEDS: Metoclopramide 10 MG/2 ML Vial 5 MG IV (15:49)
--- NOTE | 2024-11-12 16:11 | DCINST_ITS ---
Discharge Instructions Diet Discharge Diet: Low fat / Low cholesterol DC O2, CPAP, BIPAP needs Home O2 Discharge instructions: No Dressing / Incision Discharge Activity: Return to Normal Activity Weight Bearing Status: Weight bearing as tolerated Dressing / Incision Call your doctor if you observe: Fever of 101 or Higher, Shortness of breath, Dizziness, Fainting spells, Swelling in the ankles and Chest pain Follow Up Care Test Results: Test results from this visit will be discussed in further detail at your follow- up appointment, if applicable. Discharge Plan Admission Admit Date/Time: 11/10/24 21:05 Primary Reason for Your Visit: intractable nausea and vomiting Attending Provider: Aracelis Roberson Primary Care Provider: Arias Lemus Consulting Providers: Trey Lowe; Talib Diaz Instructions Patient Instructions: ED Cyclic Vomiting Syndrome Additional Instructions / Restrictions: patient counseled to stop smoking marijuana as it can cause vomiting Discharge Orders/Prescriptions Prescriptions: New ondansetron 4 mg tablet,disintegrating 4 mg PO Q6H PRN (Reason: nausea and vomiting) Qty: 30 0RF Continued clopidogrel [Plavix] 75 mg tablet 75 mg PO DAILY metoprolol succinate 25 mg tablet extended release 24 hr 25 mg PO DAILY nitroglycerin 0.4 mg tablet, sublingual 0.4 mg sublingual Q5M PRN (Reason: chest pain) Rx Instructions: do not exceed 3 doses per episode acetaminophen [Tylenol Extra Strength] 500 mg tablet 500 mg PO Q6H PRN (Reason: pain) atorvastatin 40 mg Tablet 40 mg PO DAILY citalopram 40 mg Tablet 40 mg PO DAILY sucralfate 1 gram Tablet 1 g PO 4X/DAY amlodipine 10 mg Tablet 10 mg PO DAILY aspirin 81 mg Tablet,Chewable 81 mg PO DAILY dicyclomine 20 mg tablet 20 mg PO Q6H PRN (Reason: abdominal cramping) Qty: 20 0RF lisinopril 40 mg tablet 40 mg PO DAILY fenofibrate nanocrystallized 145 mg tablet 145 mg PO DAILY pantoprazole 40 mg tablet,delayed release (DR/EC) 40 mg PO DAILY trazodone 100 mg tablet 100 mg PO QHS magnesium chloride [Mag 64] 64 mg Tablet,Delayed Release (Dr/Ec) 128 mg PO BID Qty: 60 0RF Referrals / Follow Up: Arias Lemus DO [Primary Care Provider] - Within 1 Week Friend,Aiden, DO [Med Staff - Active Staff] - Within 2 Weeks (set to establish care) Disposition Disposition (needs filled in before D/C Order can be placed): Home, Self Care
--- NOTE | 2024-11-12 16:14 | DS.PCM_ITS ---
Providers Date of Admission: 11/10/24 Date of Discharge: 11/12/24 Primary Care Physician: Dr. Arias Lemus DO Reason For Visit: INTRACTABLE NAUSEA AND VOMITING W/ ABD PAIN Diagnosis Discharge Diagnosis (1) Abdominal pain: Status: Inactive Code(s): R10.9 - Unspecified abdominal pain (2) Acute dehydration: Status: Inactive Code(s): E86.0 - Dehydration (3) Acute generalized abdominal pain: Status: Inactive Code(s): R10.84 - Generalized abdominal pain (4) Cyclic vomiting syndrome: Status: Inactive Code(s): R11.15 - Cyclical vomiting syndrome unrelated to migraine Medications at Discharge Home Medications amlodipine 10 mg tablet 10 mg PO DAILY 11/11/22 aspirin 81 mg chewable tablet 81 mg PO DAILY 11/11/22 atorvastatin 40 mg tablet 40 mg PO DAILY 11/11/22 citalopram 40 mg tablet 40 mg PO DAILY 11/11/22 sucralfate 1 gram tablet 1 g PO 4X/DAY 11/11/22 acetaminophen 500 mg tablet (Tylenol Extra Strength) 500 mg PO Q6H PRN pain 08/22/23 clopidogrel 75 mg tablet (Plavix) 75 mg PO DAILY 08/22/23 metoprolol succinate 25 mg tablet,extended release 24 hr 25 mg PO DAILY 08/22/23 nitroglycerin 0.4 mg sublingual tablet 0.4 mg sublingual Q5M PRN chest pain 08/22/23 dicyclomine 20 mg tablet 20 mg PO Q6H PRN abdominal cramping #20 tabs 06/30/24 lisinopril 40 mg tablet 40 mg PO DAILY 07/10/24 trazodone 100 mg tablet 100 mg PO QHS 09/02/24 magnesium chloride 64 mg (magnesium chloride) tablet,delayed release (Mag 64) 128 mg (2 x 64 mg) PO BID #60 tabs 10/18/24 fenofibrate nanocrystallized 145 mg tablet 145 mg PO DAILY 11/10/24 pantoprazole 40 mg tablet,delayed release 40 mg PO DAILY 11/10/24 ondansetron 4 mg disintegrating tablet 4 mg PO Q6H PRN nausea and vomiting #30 tabs 11/12/24 Hospital Course Operations None Procedures None Summary of Care Provided Minutes Spent on Discharge: 45 Hospital Course: Patient is a 64-year-old male with a past medical history as outlined was admitted through the ED on 11/10/2024 with a complaint of lower abdominal pain which started 3 days prior to admission. Pain was continuous was gradually worsening and he had had numerous bouts of diarrhea 2 days prior to admission which had subsequently resolved. He said he began vomiting and his emesis was also dark in color. He did have known history of upper GI bleed and said he had a known ulcer. He was on aspirin and Plavix. Patient also admitted to using marijuana daily. Review of systems otherwise negative. He was admitted to be managed for abdominal pain, nausea and vomiting due to cyclical vomiting syndrome in the setting of marijuana use. He was placed on IV Zofran and hydrated with IV fluids. He was also given IV morphine for pain. His nausea and vomiting subsequently resolved and he felt much better. Of note his stool for occult blood came back positive and hemoglobin went down to 10.4. It was 13.5 on admission. Patient had been seen in the hospital and March 2024 for similar complaints and was told he likely had a mild Shanna-Jaime tear then. Weight / BMI Weight Weight: 165 lb 2.02 oz Body Mass Index (BMI) 23.6 ABG / Lab / Microbiology Data 11/12/24 05:44 11/12/24 05:44 Laboratory: Laboratory Results - last 24 hr 11/12/24 05:44: WBC 8.9, RBC 3.45 L, Hgb 9.8 L, Hct 29.8 L, MCV 86.4, MCH 28.4, MCHC 32.9, RDW Std Deviation 51.1 H, RDW Coeff of Florencio 16.2 H, Plt Count 322, MPV 9.3, Immature Gran % (Auto) 0.600, Neut % (Auto) 75.7 H, Lymph % (Auto) 13.2 L, [place] % (Auto) 9.1, Eos % (Auto) 0.9, Baso % (Auto) 0.5, Absolute Neuts (auto) 6.7, Absolute Lymphs (auto) 1.17, Nucleated RBC % 0, Sodium 137, Potassium 3.8, Chloride 107, Carbon Dioxide 21.0, Anion Gap 9, BUN 17, Creatinine 0.76, Estim Creat Clear Calc 93.78, Est GFR (MDRD) Af Amer 131, Est GFR (MDRD) Non-Af 109, B UN/Creatinine Ratio 22.3 H, Glucose 88, Calcium 8.9 Microbiology: Microbiology 11/10/24 16:52 Vomitus Gastric Occult Blood - Final Occult Blood Positive D/C Instructions Discharge Diet: Low fat / Low cholesterol Weight Bearing Status: Weight bearing as tolerated Call your doctor if you observe: Fever of 101 or Higher, Shortness of breath, Dizziness, Fainting spells, Swelling in the ankles and Chest pain DC O2, CPAP, BIPAP Needs Home O2 Discharge instructions: No Meaningful Use Info Ischemic Stroke Statin Dosing Therapy Reference: STATIN DOSE THERAPY REFERENCE: * Patients > 75 years receive moderate or high dose statin therapy. * Patients 75 years or YOUNGER should receive HIGH intensity statin dose unless contraindicated. You will be required to document reason for non-treatment if statin daily dose does not meet guidelines. HIGH DOSE STATIN THERAPY DAILY Atorvastatin > than or = to 40 mg Rosuvastatin > than or = to 20 mg Amlodipine + Atorvastatin > than or = to 2.5/40 mg Ezetimibe + Simvastatin 10/80 mg Simvastatin 80mg Discharge Plan Admission Admit Date/Time: 11/10/24 21:05 Primary Reason for Your Visit: intractable nausea and vomiting Attending Provider: Aracelis Roberson Primary Care Provider: Arias Lemus Consulting Providers: Trey Lowe; Talib Diaz Instructions Patient Instructions: ED Cyclic Vomiting Syndrome Additional Instructions / Restrictions: patient counseled to stop smoking marijuana as it can cause vomiting Discharge Orders/Prescriptions Prescriptions: New ondansetron 4 mg tablet,disintegrating 4 mg PO Q6H PRN (Reason: nausea and vomiting) Qty: 30 0RF Continued clopidogrel [Plavix] 75 mg tablet 75 mg PO DAILY metoprolol succinate 25 mg tablet extended release 24 hr 25 mg PO DAILY nitroglycerin 0.4 mg tablet, sublingual 0.4 mg sublingual Q5M PRN (Reason: chest pain) Rx Instructions: do not exceed 3 doses per episode acetaminophen [Tylenol Extra Strength] 500 mg tablet 500 mg PO Q6H PRN (Reason: pain) atorvastatin 40 mg Tablet 40 mg PO DAILY citalopram 40 mg Tablet 40 mg PO DAILY sucralfate 1 gram Tablet 1 g PO 4X/DAY amlodipine 10 mg Tablet 10 mg PO DAILY aspirin 81 mg Tablet,Chewable 81 mg PO DAILY dicyclomine 20 mg tablet 20 mg PO Q6H PRN (Reason: abdominal cramping) Qty: 20 0RF lisinopril 40 mg tablet 40 mg PO DAILY fenofibrate nanocrystallized 145 mg tablet 145 mg PO DAILY pantoprazole 40 mg tablet,delayed release (DR/EC) 40 mg PO DAILY trazodone 100 mg tablet 100 mg PO QHS magnesium chloride [Mag 64] 64 mg Tablet,Delayed Release (Dr/Ec) 128 mg PO BID Qty: 60 0RF Referrals / Follow Up: Arias Lemus DO [Primary Care Provider] - Within 1 Week FriendAiden DO [Med Staff - Active Staff] - Within 2 Weeks (set to establish care) Disposition Disposition (needs filled in before D/C Order can be placed): Home, Self Care
--- NOTE | 2024-11-12 16:26 | PN_ITS ---
Subjective Subjective Patient seen and examined. He had no complaints. He has not had any more nausea or vomiting. Review of systems otherwise negative. Patient said he was hoping to be discharged today. However hemoglobin trended down to 9.6. BUN over creatinine is also slightly elevated at 22. Patient therefore counseled that we will be advisable to keep him for an upper scope at least by GI. Objective Data Objective Data Vital Signs: Vital Signs Temp Pulse Resp BP Pulse Ox O2 Del Method 98.3 F 75 18 155/95 H 97 Room Air 11/12/24 14:29 11/12/24 14:29 11/12/24 14:29 11/12/24 14:29 11/12/24 14:29 11/12/24 14:30 Oxygen Delivery Method Room Air Weight: 165 lb 2.02 oz Body Mass Index (BMI) 23.6 Intake & Output: Intake and Output for Last 24 Hours 11/10/24 11/11/24 11/12/24 23:59 23:59 23:59 Intake Total 2049 / 2049 3750 / 3750 300 / 300 Output Total 1220 / 1220 400 / 400 Balance 2049 / 2049 2530 / 2530 -100 / -100 Lab / Micro Data 11/12/24 05:44 11/12/24 05:44 Labs: Laboratory Results - last 24 hr 11/12/24 05:44: WBC 8.9, RBC 3.45 L, Hgb 9.8 L, Hct 29.8 L, MCV 86.4, MCH 28.4, MCHC 32.9, RDW Std Deviation 51.1 H, RDW Coeff of Florencio 16.2 H, Plt Count 322, MPV 9.3, Immature Gran % (Auto) 0.600, Neut % (Auto) 75.7 H, Lymph % (Auto) 13.2 L, [place] % (Auto) 9.1, Eos % (Auto) 0.9, Baso % (Auto) 0.5, Absolute Neuts (auto) 6.7, Absolute Lymphs (auto) 1.17, Nucleated RBC % 0, Sodium 137, Potassium 3.8, Chloride 107, Carbon Dioxide 21.0, Anion Gap 9, BUN 17, Creatinine 0.76, Estim Creat Clear Calc 93.78, Est GFR (MDRD) Af Amer 131, Est GFR (MDRD) Non-Af 109, B UN/Creatinine Ratio 22.3 H, Glucose 88, Calcium 8.9 Micro: Microbiology 11/10/24 16:52 Vomitus Gastric Occult Blood - Final Occult Blood Positive Physical Exam Const alert, oriented x3 and no apparent distress General Appearance: cooperative and well developed HEENT normocephalic, head/scalp atraumatic and moist oral mucous membranes Eyes PERRL and EOMs intact bilaterally Neck no lymphadenopathy and supple Lymph Lymphatic: no lymphadenopathy noted and no lymphedema noted Resp normal respiratory effort, normal air movement and clear to auscultation bilaterally Cardio regular rate, regular rhythm, S1 normal heart sound, S2 normal heart sound and no murmurs GI normal to inspection, nondistended, normoactive bowel sounds, soft to palpation, non-tender and non-distended Extremity normal capillary refill, no clubbing, cyanosis or edema and no calf tenderness General Extremity: no tenderness to palpation of joints or extremities Skin General Skin Exam: no breakdown Neuro CN's II-XII intact bilaterally, no focal motor deficits and no sensory deficits noted Motor Exam: strength 5/5 throughout and general weakness Psych thought process normal and cooperative Appearance: appropriate Assessment & Plan Assessment/Plan (1) Marijuana abuse: PLAN: Plan #Cyclical vomiting syndrome * Patient admitted with a complaint of left lower quadrant pain and incessant nausea and vomiting. Uses marijuana. Counseled to quit as this causes the cyclic vomiting syndrome. * On IV Zofran as needed. Patient no longer having any nausea or vomiting. #Acute anemia * Hemoglobin was 13.4 on admission though his baseline usually once around 11- 12. * Hemoglobin today is down to 9.6 from 10.4 yesterday. His stool for occult blood is positive. He had stool for occult blood positive also in September and back in June. It does not seem like he has been worked up for this. * Of note he did have a colonoscopy and EGD back in June 2023 at [facility]. Records were requested and this showed that the EGD was normal but the colonoscopy showed a polyp which was removed. * Even though my plan was to discharge patient today, I do think it is prudent to get GI to evaluate patient due to the drop in globin and elevated BUN over creatinine. * Hold aspirin and Plavix. IV pantoprazole 40 mg twice daily. Gastroenterology consulted for likely scope tomorrow. #Hypertension: On lisinopril and metoprolol #Hyperlipidemia: On statin #History of CAD s/p stents. Hold aspirin and Plavix. On statin. #Anxiety and depression: On Celexa DVT prophylaxis: SCDs * Charges/Coding Visit Charges Inpatient E&M: 71601 Subs Hosp L2
[2024-11-12] MEDS: Morphine 4 MG/ML Syringe IV ×2 (18:31→22:14)
[2024-11-12] MEDS: traZODone 100 MG Tablet PO (21:54)
[2024-11-12] MEDS: Pantoprazole Sodium 40 MG in 0.9% Normal Saline (100mL MB+) 100 ML 330 MG IV (22:20)
[2024-11-12] MEDS: 0.9% Normal Saline (100mL Bag) 100 ML 15 ML IV (22:21)
[2024-11-12] MEDS: Atorvastatin Calcium 40 MG Tablet PO (23:24)
[2024-11-13] VITALS (11 sets, daily range): BP systolic 114–157; BP diastolic 72–101; PULSE 64–82; RESP 16–18; TEMP 36.6–37.1; O2SAT 94–98; BMI 23.8
[2024-11-13] MEDS: 0.9% Normal Saline (100mL Bag) 100 ML 15 ML IV (06:22)
[2024-11-13] MEDS: Sucralfate 1 GM Tablet PO ×2 (06:22→13:17)
[2024-11-13 06:44] LABS: Absolute Lymphocyte Count 0.84 X10^3/uL (0.83-4.51); Basophil# 0.03 X10^3/uL; Basophil% 0.5 % (0-1); Eosinophil# 0.13 X10^3/uL; Eosinophils% 2.3 % (0-5); Hematocrit 28.2 % (40-54); Hemoglobin 9.5 g/dL (13.0-16.5); Lymphocyte # 0.84 X10^3/ul (0.83-4.51); Lymphocyte % 14.7 % (19-41); Mean Corp Hgb Conc 33.7 g/dL (32-36); Mean Corpuscular Hgb 28.9 pg (27.0-32.0); Mean Corpuscular Volume 85.7 fL (80-94); Monocyte# 0.73 X10^3/uL; Monocyte% 12.7 % (0-10); NRBC Flagged by Analyzer 0 % (0-5); Neutrophil # 3.97 X10^3/uL (2.7-7.7); Neutrophil % 69.3 % (47-70); Platelet Count 262 K/mm3 (150-450); RBC Distribution Width CV 15.9 % (11.6-14.6); RBC Distribution Width SD 50.4 fl (35.1-43.9); Red Blood Count 3.29 M/mm3 (4.6-6.2); White Blood Count 5.7 K/mm3 (4.4-11.0)
[2024-11-13 06:56] LABS: Partial Thromboplast Time 31.5 Seconds (24.1-36.2)
[2024-11-13 07:10] LABS: Anion Gap 6 (5-15); BUN 10 mg/dL (7-18); BUN/Creat Ratio 12.3 RATIO (10-20); Calcium,Total 8.7 mg/dL (8.5-10.1); Chloride 106 mmol/L (98-107); Creatinine, Serum 0.81 mg/dL (0.70-1.30); EST Glomerular Filtration Rate 101 mL/min (>60); Est Glom Filt Rate - Afr Amer 122 mL/min (>60); Estimated Creatinine Clearance 92.63 ml/min; Glucose 86 mg/dL (74-106); Potassium 3.6 mmol/L (3.5-5.1); Sodium Level 135 mmol/L (136-145)
[2024-11-13] MEDS: Metoprolol(XL)Succ 25 MG Tablet PO (08:04)
[2024-11-13] MEDS: Pantoprazole Sodium 40 MG in 0.9% Normal Saline (100mL MB+) 100 ML 330 MG IV (08:06)
--- NOTE | 2024-11-13 11:12 | PRE.ANES_ITS ---
ASA Classification* ASA Classification ASA Classification: 3 Assessment & Plan Anesthesia* Anesthesia Assessment Anesthesia Assessment: Discussed sedation and/or anesthesia options, risks, benefits, and alternatives with patient/parents/legal guardian/POA. Questions invited. The patient/parents/legal guardian/POA seems to understand and agrees to proceed with anesthesia plan. Reviewed the physical assessment, medical history, allergy history and patient home medications list prior to surgery/procedure/anesthetic and documented any changes. Performed airway and anesthesia risk assessments. Anesthesia Type Anesthesia Type: MAC History Source History Obtained from:: Patient and Chart Anesthesia Focused Assessment* Temperature: 98.2 F Pulse Rate: 73 Blood Pressure: 147/91 Respiratory Rate: 16 Pulse Ox: 95 Oxygen Delivery Method: Room Air Airway Assessment Mouth opens: >3 cm Mallampati Score: II Teeth Condition: Chipped/Broken and Missing Comment: poor dentition Focused Labs Anesthesia Preop lab: CBC WBC 5.7 K/mm3 (4.4-11.0) 11/13/24 06:36 11/13/24 RBC 3.29 M/mm3 (4.6-6.2) L 11/13/24 06:36 11/13/24 Hgb 9.5 g/dL (13.0-16.5) L 11/13/24 06:36 11/13/24 Hct 28.2 % (40-54) L 11/13/24 06:36 11/13/24 Plt Count 262 K/mm3 (150-450) 11/13/24 06:36 11/13/24 CHEMISTRY Potassium 3.6 mmol/L (3.5-5.1) 11/13/24 06:36 11/13/24 Sodium 135 mmol/L (136-145) L 11/13/24 06:36 11/13/24 Magnesium 2.1 mg/dL (1.6-2.6) 10/18/24 06:49 10/18/24 Phosphorus 2.8 mg/dL (2.5-4.9) 10/18/24 06:49 10/18/24 BUN 10 mg/dL (7-18) 11/13/24 06:36 11/13/24 Creatinine 0.81 mg/dL (0.70-1.30) 11/13/24 06:36 11/13/24 Glucose 86 mg/dL (74-106) 11/13/24 06:36 11/13/24 TSH 0.61 uIU/mL (0.358-3.74) 12/17/23 13:59 COAG PT 13.5 SECONDS (11.7-14.9) 07/10/24 13:39 Pre-Assessment Diagnosis/Proposed Procedure Planned Operative Procedure(s): GI Scope Anesthesia History 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 When Was Last Pacemaker Check QUESTION #4 FULL TEXT: You/Your Family Experience fever (hyperthermia) with Anesthesia Last Oral Intake Last Oral intake: Last Oral Intake NPO since 00:00 11/13/24 07:59 Meds taken in AM with sips of Yes 11/13/24 07:59 water? Meds patient instructed to 0802- -with sip of water- 11/13/24 07:59 take am of surgery metoprolol 25 mg PONV PONV - dials supervisor: PONV - dials supervisor Female HX of Motion Sickness HX of N/V After Surgery Non-Smoker Duration of Surgery greater than 60 minutes Number of Risk Factors PONV Score Height & Weight Height & Weight: Anesthesia: Height & Weight Height 5 ft 10 in 11/13/24 07:59 Weight: 75.4 kg 11/13/24 07:59 Body Mass Index (BMI) 23.8 11/13/24 07:59 Respiratory Assessment Respiratory Assessment - dials supervisor: Respiratory Tract Infection Hx - dials supervisor Hx Respiratory Tract Infection No 11/13/24 07:58 STOP Sleep Apnea STOP Sleep Apnea - dials supervisor: STOP Sleep Apnea - dials supervisor Hx Hypertension Yes 11/10/24 23:22 Hx Sleep Apnea Yes 11/10/24 23:22 CPAP No 11/10/24 23:22 BIPAP No 11/10/24 23:22 Do you snore loudly (louder than talking or can be heard Do you often feel tired/ fatigued/ sleepy during daytime? Has anyone observed you stop breathing during sleep? STOP Results Positive 11/10/24 23:22 QUESTION #5 FULL TEXT : Do you snore loudly (louder than talking or can be heard through closed doors)? 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 Specify any problems Hx of Preganancy in last 3 N/A 11/10/24 23:22 Months Nurse Filling Out Transfusion MSTEFANIC 11/10/24 23:22 & Questions: Date: 11/10/24 11/10/24 23:22 Time: 23:23 11/10/24 23:22 Patient unable to answer at this time (ie. confused, unrespo /Reproduction History /Reproductive History - dials supervisor: /Reproductive Hx- dials supervisor Hx Now Gestational Age (in weeks): EDC: Hx Hx Para Hx Section SAB Active Medications Active Medications: Current Medications Generic Name Dose Route Start Last Admin Trade Name Freq PRN Reason Stop Dose Admin Atorvastatin Calcium 40 mg 11/11/24 22:00 11/12/24 23:24 Atorvastatin Calcium 40 Mg Tablet PO 40 mg QHS AMARA Administration Citalopram Hydrobromide 40 mg 11/12/24 10:00 11/12/24 08:03 Citalopram 40 Mg Tablet PO 40 mg DAILY AMARA Administration Sodium Chloride 100 mls @ 15 mls/hr 11/10/24 23:33 11/13/24 06:22 IV 15 mls/hr .Q6H40M PRN Administration Additional IVPB Infusion Pantoprazole Sodium 40 mg/ 110 mls @ 330 mls/hr 11/12/24 22:00 11/13/24 08:26 Sodium Chloride IV Infused Q12 AMARA Infusion Metoclopramide HCl 5 mg 11/11/24 02:53 11/12/24 15:49 Metoclopramide 10 Mg/2 Ml Vial IV 5 mg Q8H PRN PRN Administration BREAKTHROUGH NAUSEA Metoprolol Succinate 25 mg 11/11/24 13:30 11/13/24 08:04 Metoprolol(Xl)Succ 25 Mg Tablet PO 25 mg DAILY AMARA Administration Protocol Morphine Sulfate 4 mg 11/10/24 23:13 11/12/24 22:14 Morphine 4 Mg/Ml Syringe IV 4 mg Q2H PRN PRN Administration Pain Score 6-10 Nutritional Formula (Lactose Free) 120 ml 11/11/24 14:00 11/13/24 07:23 Ensure Plus High Protein 120 Ml Liquid PO Not Given 4X/DAY AMARA Ondansetron HCl 4 mg 11/10/24 23:13 11/12/24 11:08 Ondansetron 4 Mg/2 Ml Vial IV 4 mg Q8H PRN PRN Administration NAUSEA/VOMITING Pantoprazole Sodium 40 mg 11/12/24 10:00 11/12/24 08:03 Pantoprazole Sodium 40 Mg Tablet PO 40 mg DAILY AMARA Administration Sodium Chloride 10 - 40 ml 11/10/24 23:33 11/12/24 22:14 0.9% Saline Lock 10 Ml Syringe IV 10 ml UD PRN Administration SALINE FLUSH Sucralfate 1 gm 11/11/24 11:00 11/13/24 11:04 Sucralfate 1 Gm Tablet PO Not Given 1HR_ACHS AMARA Trazodone HCl 100 mg 11/11/24 22:00 11/12/24 21:54 Trazodone 100 Mg Tablet PO 100 mg QHS AMARA Administration PFSH Medical History B12 nutritional deficiency Claustrophobia Mild cognitive impairment Tobacco use HLD (hyperlipidemia) HTN (hypertension) Right adrenal mass History of kidney stones History of seizure Cyclic vomiting syndrome Hiatal hernia Heart attack Medical History no medical history Home Medications ?Medication ?Instructions ?Recorded ?Last Taken ?Type amlodipine 10 mg tablet 10 mg PO DAILY 11/11/22 Unkn own History aspirin 81 mg chewable tablet 81 mg PO DAILY 11/11/22 Unknown History atorvastatin 40 mg tablet 40 mg PO DAILY 11/11/22 Unkn own History citalopram 40 mg tablet 40 mg PO DAILY 11/11/22 Unkn own History sucralfate 1 gram tablet 1 g PO 4X/DAY 11/11/22 Unkno wn History acetaminophen 500 mg tablet 500 mg PO Q6H PRN pain Unknown History (Tylenol Extra Strength) clopidogrel 75 mg tablet (Plavix) 75 mg PO DAILY 08/22 Unknown History metoprolol succinate 25 mg 25 mg PO DAILY 08/22/23 Unk nown History tablet,extended release 24 hr nitroglycerin 0.4 mg sublingual 0.4 mg sublingual Q5M PRN chest 08/22/23 Unknown History tablet pain dicyclomine 20 mg tablet 20 mg PO Q6H PRN abdominal 1 Unknown Rx cramping #20 tabs lisinopril 40 mg tablet 40 mg PO DAILY 07/10/24 Unkn own History trazodone 100 mg tablet 100 mg PO QHS 09/02/24 Unkno wn History magnesium chloride 64 mg 128 mg (2 x 64 mg) PO BID #6 0 tabs 10/18/24 Unknown Rx (magnesium chloride) tablet,delayed release (Mag 64) fenofibrate nanocrystallized 145 145 mg PO DAILY 11/10 Unknown History mg tablet pantoprazole 40 mg tablet,delayed 40 mg PO DAILY 11/10 Unknown History release ondansetron 4 mg disintegrating 4 mg PO Q6H PRN nausea and 11/12/24 Unknown Rx tablet vomiting #30 tabs Allergy/AdvReac Type Severity Reaction Status Date / Time Penicillins (PCN) Allergy Severe Rash Verified 11/10/24 15:56 sertraline (From Zoloft) Allergy Severe Other Verified 11/10/24 15:56 meloxicam (From Mobic) Allergy Mild Itching Verified 11/10/24 15:56 chlorpromazine (From Allergy lethargic Verified 11/10/24 15:56 Thorazine) nitrofurantoin (From AdvReac Severe Rash Verified 11/10/24 15:56 Macrobid) Family History Mother Heart disease Father Heart disease Surgical History S/P primary angioplasty with coronary stent History of repair of hiatal hernia History of cholecystectomy Social History household members: spouse Smoking Status: Current every day smoker tobacco type: cigarettes and cigars per week: 28 alcohol intake: never details: Denies alcohol use and history of pancreatitis substance use type: does not use Review of Systems (Anesthesia) ROS Narrative System reviewed and no additional complaints, except as documented.
--- NOTE | 2024-11-13 11:15 | PCM.PN.BLA ---
Progress Note Patient is for upper endoscopy today. He has been n.p.o. overnight. Physical Exam Const alert, oriented x3, no apparent distress and healthy appearing General Appearance: cooperative GI normal to inspection, nondistended, normoactive bowel sounds, soft to palpation, non-tender and non-distended Percussion: normal to percussion Rectal Exam: deferred Assessment & Plan Assessment/Plan (1) Shanna-Jaime tear: (2) Abdominal pain: (3) Acute dehydration: (4) Acute generalized abdominal pain: (5) Cyclic vomiting syndrome: PLAN: Plan 1. Left lower quadrant abdominal pain with leukocytosis with cyclic vomiting ? Fecal occult did come back positive and hemoglobin went from 13.5 down to 10.4 ?Will recheck H&H at 1 PM ? CT of the abdomen pelvis does not demonstrate any signs of infection or diverticulitis he had a similar episode at the end of September ? He was told at that time that he had Shanna-Jaime tear though no endoscopy was performed at that time -His hemoglobin has been decreasing all way down to 9 so we will perform an upper endoscopy. ? Continue with PPI DVT: SCDs Visit Charges Inpatient E&M: 42962 Subs Hosp L2
--- NOTE | 2024-11-13 11:41 | OP.EGD_ITS ---
Patient Name: Truong Rosario Procedure Date: 11/13/2024 11:19 AM Date of : 1960 Age: 64 Procedure: Upper GI endoscopy Indications: Acute post hemorrhagic anemia, Functional Dyspepsia, Melena Providers: Aiden Baptiste DO Referring MD: Dewey Kam MD Medicines: Monitored Anesthesia Care Patient Profile: This is a 64 year old male. Refer to note in patient chart for documentation of history and physical. Patient has symptoms of chronic nausea and acute vomiting. Complications: No immediate complications. Procedure: Pre-Anesthesia Assessment: - Prior to the procedure, a History and Physical was performed, and patient medications and allergies were reviewed. The patient is competent. The risks and benefits of the procedure and the sedation options and risks were discussed with the patient. All questions were answered and informed consent was obtained. Patient identification and proposed procedure were verified by the physician in the pre-procedure area. Mental Status Examination: alert and oriented. Airway Examination: normal oropharyngeal airway and neck mobility. Respiratory Examination: clear to auscultation. CV Examination: normal. Prophylactic Antibiotics: The patient does not require prophylactic antibiotics. Prior Anticoagulants: The patient has taken no anticoagulant or antiplatelet agents except for NSAID medication. ASA Grade Assessment: II - A patient with mild systemic disease. After reviewing the risks and benefits, the patient was deemed in satisfactory condition to undergo the procedure. The anesthesia plan was to use monitored anesthesia care (MAC). Immediately prior to administration of medications, the patient was re-assessed for adequacy to receive sedatives. The heart rate, respiratory rate, oxygen saturations, blood pressure, adequacy of pulmonary ventilation, and response to care were monitored throughout the procedure. The physical status of the patient was re-assessed after the procedure. After obtaining informed consent, the endoscope was passed under direct vision. Throughout the procedure, the patient's blood pressure, pulse, and oxygen saturations were monitored continuously. The Endoscope was introduced through the mouth, and advanced to the second part of duodenum. The upper GI endoscopy was accomplished without difficulty. The patient tolerated the procedure well. Scope In: 11:29:01 AM Scope Out: 11:33:48 AM Total Procedure Duration Time 0 hours 4 minutes 47 seconds Findings: LA Grade A (one or more mucosal breaks less than 5 mm, not extending between tops of 2 mucosal folds) esophagitis with no bleeding was found 36 to 39 cm from the incisors. A large hiatal hernia was present. Diffuse prominent gastric folds were found in the entire examined stomach. Patchy mild inflammation characterized by erosions and erythema was found in the gastric body. Two non-bleeding cratered gastric ulcers with no stigmata of bleeding were found on the lesser curvature of the stomach. The largest lesion was 6 mm in largest dimension. Multiple localized erosions without bleeding were found in the duodenal bulb. Impression: - LA Grade A reflux esophagitis with no bleeding. - Large hiatal hernia. - Enlarged gastric folds. - Chronic gastritis. - Non-bleeding gastric ulcers with no stigmata of bleeding. - Duodenal erosions without bleeding. - No specimens collected. Recommendation: - Discharge patient to home. - Resume previous diet. - Continue present medications. - Use Protonix (pantoprazole) 40 mg PO BID today. Procedure Code(s): --- Professional --- 17488, Esophagogastroduodenoscopy, flexible, transoral; diagnostic, including collection of specimen(s) by brushing or washing, when performed (separate procedure) CPT copyright 2021 [employer]. All rights reserved. The codes documented in this report are preliminary and upon certified medical records coder review may be revised to meet current compliance requirements. Aiden Baptiste DO 11/13/2024 11:40:42 AM This report has been signed electronically. Number of Addenda: 0 Note Initiated On: 11/13/2024 11:19 AM
--- NOTE | 2024-11-13 11:41 | OP.CCLET_ITS ---
11/13/2024 Arias Lemus Do Re : Upper GI endoscopy procedure for Truong Rosario Dear Dr. Lemus This procedure was performed on October. My impressions and recommendations are as follows: Impressions : - LA Grade A reflux esophagitis with no bleeding. - Large hiatal hernia. - Enlarged gastric folds. - Chronic gastritis. - Non-bleeding gastric ulcers with no stigmata of bleeding. - Duodenal erosions without bleeding. - No specimens collected. Recommendations : - Discharge patient to home. - Resume previous diet. - Continue present medications. - Use Protonix (pantoprazole) 40 mg PO BID today. My findings are described in the full procedure note, which is enclosed. If I can be of further assistance, please feel free to contact me at . Sincerely, Aiden Baptiste, 11/13/2024 11:40:42 AM This report has been signed electronically.
--- NOTE | 2024-11-13 11:43 | PCM.POST.ANE ---
Anesthesia: Postop Eval I Current Vital Signs Temperature: 98 F Pulse Rate: 82 Blood Pressure: 117/101 Respiratory Rate: 16 Pulse Ox: 96 Oxygen Delivery Method: Room Air Assessment Airway patent: Yes Spontaneous unlabored respirations: Yes Mental status: Awake and Calm nausea: No Vomiting: No Anesthesia Complication: No Fluid Hydration Crystalloid volume administer (ml): 30 Total IV fluid infused: 30 Progress Note Anesthesia document: Postop Eval 1 completed: Yes
[2024-11-13] MEDS: Citalopram 40 MG TABLET PO (13:17)
--- NOTE | 2024-11-13 14:46 | PCM.DC.SUM ---
Providers Date of Admission: 11/10/24 Date of Discharge: 11/13/24 Primary Care Physician: Dr. Arias Lemus, DO Consultations 11/12/24 16:24 Consult: Gastroenterology Routine Consulting Provider: [facility] Reason for Consult: anemia, positive occult blood EMERGENT Consult: No MD Notified: Yes Date Notified: 11/12/24 Time Notified: 16:24 Method of Notification: Text Reason For Visit: INTRACTABLE NAUSEA AND VOMITING W/ ABD PAIN Diagnosis Discharge Diagnosis (1) Shanna-Jaime tear: Status: Acute Code(s): K22.6 - Gastro-esophageal laceration-hemorrhage syndrome (2) Abdominal pain: Status: Inactive Code(s): R10.9 - Unspecified abdominal pain (3) Acute dehydration: Status: Inactive Code(s): E86.0 - Dehydration (4) Acute generalized abdominal pain: Status: Inactive Code(s): R10.84 - Generalized abdominal pain (5) Cyclic vomiting syndrome: Status: Inactive Code(s): R11.15 - Cyclical vomiting syndrome unrelated to migraine Plan #Cyclical vomiting syndrome Patient admitted with a complaint of left lower quadrant pain and incessant nausea and vomiting. Uses marijuana. Counseled to quit as this causes the cyclic vomiting syndrome. On IV Zofran as needed. Patient no longer having any nausea or vomiting. #Acute anemia Hemoglobin was 13.4 on admission though his baseline usually once around 11-12. Hemoglobin today is down to 9.6 from 10.4 yesterday. His stool for occult blood is positive. He had stool for occult blood positive also in September and back in June. It does not seem like he has been worked up for this. Of note he did have a colonoscopy and EGD back in June 2023 at [facility]. Records were requested and this showed that the EGD was normal but the colonoscopy showed a polyp which was removed. Even though my plan was to discharge patient today, I do think it is prudent to get GI to evaluate patient due to the drop in globin and elevated BUN over creatinine. Hold aspirin and Plavix. IV pantoprazole 40 mg twice daily. Gastroenterology consulted for likely scope tomorrow. #Hypertension: On lisinopril and metoprolol #Hyperlipidemia: On statin #History of CAD s/p stents. Hold aspirin and Plavix. On statin. #Anxiety and depression: On Celexa DVT prophylaxis: SCDs Medications at Discharge Home Medications amlodipine 10 mg tablet 10 mg PO DAILY 11/11/22 aspirin 81 mg chewable tablet 81 mg PO DAILY 11/11/22 atorvastatin 40 mg tablet 40 mg PO DAILY 11/11/22 citalopram 40 mg tablet 40 mg PO DAILY 11/11/22 sucralfate 1 gram tablet 1 g PO 4X/DAY 11/11/22 acetaminophen 500 mg tablet (Tylenol Extra Strength) 500 mg PO Q6H PRN pain 08/22/23 clopidogrel 75 mg tablet (Plavix) 75 mg PO DAILY 08/22/23 metoprolol succinate 25 mg tablet,extended release 24 hr 25 mg PO DAILY 08/22/23 nitroglycerin 0.4 mg sublingual tablet 0.4 mg sublingual Q5M PRN chest pain 08/22/23 dicyclomine 20 mg tablet 20 mg PO Q6H PRN abdominal cramping #20 tabs 06/30/24 lisinopril 40 mg tablet 40 mg PO DAILY 07/10/24 trazodone 100 mg tablet 100 mg PO QHS 09/02/24 magnesium chloride 64 mg (magnesium chloride) tablet,delayed release (Mag 64) 128 mg (2 x 64 mg) PO BID #60 tabs 10/18/24 fenofibrate nanocrystallized 145 mg tablet 145 mg PO DAILY 11/10/24 ondansetron 4 mg disintegrating tablet 4 mg PO Q6H PRN nausea and vomiting #30 tabs 11/12/24 pantoprazole 40 mg tablet,delayed release 40 mg PO BID #60 tabs 11/13/24 Hospital Course Operations None Procedures EGD Summary of Care Provided Minutes Spent on Discharge: 55 Hospital Course: Patient is a 64-year-old male with past medical history as outlined was admitted to the ED on 11/10/2024 with a complaint of lower abdominal pain as well as associated nausea and vomiting and diarrhea. His diarrhea had resolved but he said his nausea and vomiting continued and his emesis was dark in color. He had had previous episodes of GI bleed and stated that he had been told he had an ulcer. He was also on aspirin and Plavix for cardiac stents. He admitted to chronic marijuana use. CT of the abdomen and pelvis showed moderate hiatal hernia with hepatic steatosis and mild prostatomegaly. He was admitted to be managed for acute abdominal pain, nausea and vomiting thought to be due to cyclical vomiting syndrome in light of history of marijuana use. He was placed on IV Zofran and hydrated with IV fluids. Patient's symptoms did improve. However his hemoglobin trended down to a carolyn of 9.6 during admission and his BUN over creatinine was also slightly elevated at 22. Due to his complaint of dark coffee-ground emesis there was concern for GI bleed so gastroenterology was consulted. Patient had EGD on 11/13/2024 which showed grade a reflux esophagitis with no bleeding, large hiatal hernia and enlarged gastric folds as well as chronic gastritis and nonbleeding gastric ulcers with no stigmata of bleeding as well as duodenal erosions with no bleeding. Patient's p.o. pantoprazole was increased from 40 mg daily to 40 mg twice daily. He was counseled strongly to abstain from marijuana use. His aspirin and Plavix were continued. He was discharged home on 11/13/2024. He is follow-up with his primary care doctor within 1 to 2 weeks. Patient seen and examined prior to discharge. He had no active complaints. Review of systems otherwise negative. Labs and vitals reviewed. Home medication reviewed and reconciled. Physical Exam Const alert, oriented x3 and no apparent distress General Appearance: cooperative, comfortable, well kempt and well developed Orientation / Consciousness: awake Exam Limitations: no limitations HEENT normocephalic, head/scalp atraumatic, hearing grossly normal bilaterally, moist oral mucous membranes and oropharynx normal Mouth: oral and palatal mucosa normal Eyes PERRL, EOMs intact bilaterally and conjunctivae normal Neck no lymphadenopathy and supple Lymph Lymphatic: no lymphadenopathy noted and no lymphedema noted Resp normal respiratory effort, normal air movement and clear to auscultation bilaterally Cardio regular rate, regular rhythm, S1 normal heart sound, S2 normal heart sound and no murmurs GI normal to inspection, nondistended, normoactive bowel sounds, soft to palpation, non-tender and non-distended Palpation: tender LLQ; Negative for guarding or rebound tenderness present Extremity normal to inspection, full ROM, normal capillary refill, no clubbing, cyanosis or edema and no calf tenderness General Extremity: no tenderness to palpation of joints or extremities Skin no rashes or lesions noted General Skin Exam: no breakdown Neuro oriented x3, CN's II-XII intact bilaterally, moves all extremities, no focal motor deficits and no sensory deficits noted Sensorium / Orientation: awake and alert Motor Exam: strength 5/5 throughout and general weakness Psych thought process normal, cooperative and affect normal Appearance: appropriate Weight / BMI Weight Weight: 166 lb 3.657 oz Body Mass Index (BMI) 23.8 ABG / Lab / Microbiology Data 11/13/24 06:36 11/13/24 06:36 Laboratory: Laboratory Results - last 24 hr 11/13/24 06:36: WBC 5.7, RBC 3.29 L, Hgb 9.5 L, Hct 28.2 L, MCV 85.7, MCH 28.9, MCHC 33.7, RDW Std Deviation 50.4 H, RDW Coeff of Florencio 15.9 H, Plt Count 262, MPV 9.0, Immature Gran % (Auto) 0.500, Neut % (Auto) 69.3, Lymph % (Auto) 14.7 L, Bucks % (Auto) 12.7 H, Eos % (Auto) 2.3, Baso % (Auto) 0.5, Absolute Neuts (auto) 4.0, Absolute Lymphs (auto) 0.84, Nucleated RBC % 0, APTT 31.5, Sodium 135 L, Potassium 3.6, Chloride 106, Carbon Dioxide 23.0, Anion Gap 6, BUN 10, Creatinine 0.81, Estim Creat Clear Calc 92.63, Est GFR (MDRD) Af Amer 122, Est GFR (MDRD) Non-Af 101, BUN/Creatinine Ratio 12.3, Glucose 86, Calcium 8.7 Microbiology: Microbiology 11/10/24 16:52 Vomitus Gastric Occult Blood - Final Occult Blood Positive D/C Instructions Discharge Diet: Low fat / Low cholesterol Discharge Activity: Return to Normal Activity Weight Bearing Status: Weight bearing as tolerated Call your doctor if you observe: Fever of 101 or Higher, Shortness of breath, Dizziness, Fainting spells, Swelling in the ankles and Chest pain DC O2, CPAP, BIPAP Needs Home O2 Discharge instructions: No DC home with Oxygen: No Meaningful Use Info Meaningful Use Meaningful Use Diagnoses (Choose all that apply): None applicable Ischemic Stroke Statin Dosing Therapy Reference: STATIN DOSE THERAPY REFERENCE: * Patients > 75 years receive moderate or high dose statin therapy. * Patients 75 years or YOUNGER should receive HIGH intensity statin dose unless contraindicated. You will be required to document reason for non-treatment if statin daily dose does not meet guidelines. HIGH DOSE STATIN THERAPY DAILY Atorvastatin > than or = to 40 mg Rosuvastatin > than or = to 20 mg Amlodipine + Atorvastatin > than or = to 2.5/40 mg Ezetimibe + Simvastatin 10/80 mg Simvastatin 80mg Discharge Plan Admission Admit Date/Time: 11/10/24 21:05 Primary Reason for Your Visit: intractable nausea and vomiting Attending Provider: Aracelis Roberson Primary Care Provider: Arias Lemus Consulting Providers: Trey Lowe; Talib Diaz Instructions Patient Instructions: ED Cyclic Vomiting Syndrome Additional Instructions / Restrictions: patient counseled to stop smoking marijuana as it can cause vomiting Discharge Orders/Prescriptions Prescriptions: New ondansetron 4 mg tablet,disintegrating 4 mg PO Q6H PRN (Reason: nausea and vomiting) Qty: 30 0RF pantoprazole 40 mg tablet,delayed release (DR/EC) 40 mg PO BID Qty: 60 2RF Continued clopidogrel [Plavix] 75 mg tablet 75 mg PO DAILY metoprolol succinate 25 mg tablet extended release 24 hr 25 mg PO DAILY nitroglycerin 0.4 mg tablet, sublingual 0.4 mg sublingual Q5M PRN (Reason: chest pain) Rx Instructions: do not exceed 3 doses per episode acetaminophen [Tylenol Extra Strength] 500 mg tablet 500 mg PO Q6H PRN (Reason: pain) atorvastatin 40 mg Tablet 40 mg PO DAILY citalopram 40 mg Tablet 40 mg PO DAILY sucralfate 1 gram Tablet 1 g PO 4X/DAY amlodipine 10 mg Tablet 10 mg PO DAILY aspirin 81 mg Tablet,Chewable 81 mg PO DAILY dicyclomine 20 mg tablet 20 mg PO Q6H PRN (Reason: abdominal cramping) Qty: 20 0RF lisinopril 40 mg tablet 40 mg PO DAILY fenofibrate nanocrystallized 145 mg tablet 145 mg PO DAILY trazodone 100 mg tablet 100 mg PO QHS magnesium chloride [Mag 64] 64 mg Tablet,Delayed Release (Dr/Ec) 128 mg PO BID Qty: 60 0RF Discontinued pantoprazole 40 mg tablet,delayed release (DR/EC) 40 mg PO DAILY Referrals / Follow Up: Arias Lemus DO [Primary Care Provider] - Within 1 Week FriendAiden DO [Med Staff - Active Staff] - Within 2 Weeks (set to establish care) Disposition Disposition (needs filled in before D/C Order can be placed): Home, Self Care Charges/Coding Visit Charges Inpatient E&M: 11539 Disch Hosp >30min
--- NOTE | 2024-11-13 14:59 | PCM.POSTANE2 ---
Anesthesia Postop Eval I Sum Postop Eval Completion status Anesthesia document: Postop Eval 1 completed: Yes Anesthesia Postop Eval I Summary Anesthesia Postop Eval I Summary: Anesthesia Postop Eval I: Assessment Summary Airway patent Yes 11/13/24 11:45 [email or web address] Spontaneous unlabored Yes 11/13/24 11:45 [email or web address] respirations Mental status Awake,Calm 11/13/24 11:45 [email or web address] nausea No 11/13/24 11:45 [email or web address] Vomiting No 11/13/24 11:45 [email or web address] Anesthesia Postop Eval I: Fluid Summary Crystalloid volume administer 30 11/13/24 11:45 [email or web address] (ml) Colloids volume administered ( ml) Blood Product volume administered (ml) Total IV fluid infused 30 11/13/24 11:45 [email or web address] Anesthesia Postop Eval I: Summary Notes Anesthesia Complication No 11/13/24 11:45 [email or web address] Anesthesia Complication Comment: Post-operative progress note Anesthesia: Postop Eval II Evaluation Mental status: Awake and Calm Pain Level: 0 nausea: No Vomiting: No Complications Anesthesia Complication: No
== END 2024-11-13 15:27 | disposition home or self-care (01) | DRG 394 ==
LOC: ED 22:09 → MS3 22:11
PROVIDERS: Anesthesiology; Family Medicine; Internal Medicine Gastroenterology; Physician Assistant; Admitting Provider Family Medicine; Emergency Provider Emergency Medicine; PCP Family Medicine; Referring Provider Emergency Medicine; Visit Provider Student in an Organized Health Care Education/Training Program
PROC: 0DJ08ZZ Inspection of Upper Intestinal Tract, Via Natural or Artificial Opening Endoscopic (ICD-10-PCS; CPT 43235; principal; 2024-11-13 10:55)
DX: R11.15 Cyclical vomiting syndrome unrelated to migraine (principal); D62 Acute posthemorrhagic anemia; F12.188 Cannabis abuse with other cannabis-induced disorder; I10 Essential (primary) hypertension; F32.A Depression, unspecified; K26.9 Duodenal ulcer, unspecified as acute or chronic, without hemorrhage or perforation; K44.9 Diaphragmatic hernia without obstruction or gangrene; I25.10 Atherosclerotic heart disease of native coronary artery without angina pectoris; E78.5 Hyperlipidemia, unspecified; F17.210 Nicotine dependence, cigarettes, uncomplicated; K21.00 Gastro-esophageal reflux disease with esophagitis, without bleeding; K29.50 Unspecified chronic gastritis without bleeding; F41.9 Anxiety disorder, unspecified; F17.290 Nicotine dependence, other tobacco product, uncomplicated; I25.2 Old myocardial infarction; R19.5 Other fecal abnormalities; K25.9 Gastric ulcer, unspecified as acute or chronic, without hemorrhage or perforation; Z95.5 Presence of coronary angioplasty implant and graft; Z79.02 Long term (current) use of antithrombotics/antiplatelets; Z79.82 Long term (current) use of aspirin; Z79.899 Other long term (current) drug therapy
CPT/HCPCS: 36415; 74177; 80048; 80053; 81001; 82271; 83605; 83690; 85014; 85018; 85025; 85730; 93005; 97802; 99284; 99406; Q9967; A4216; J2405

== ENCOUNTER 2024-12-04 18:36 | Emergency (ER) | payer MEDICARE, SELFPAY ==
[2024-12-04 18:36] VITALS: BP 152/107; PULSE 94; RESP 19; TEMP 36.1; O2SAT 97; BMI 23.6
--- NOTE | 2024-12-04 20:38 | EX.ED.DYSGE1 ---
HPI History of Present Illness Chief Complaint: Nausea/Vomiting Informant: patient Narrative Narrative: 3:30 AM vomiting with abdominal pain. History of cyclic vomiting from marijuana use. Had a normal bowel movement this morning. No fevers. Cholecystectomy hiatal hernia repair in the past. He was admitted last month for vomiting blood EGD gastric ulcers nonbleeding. He states he is taking his pantoprazole twice a day. Denies urinary symptoms. Tried hot showers. He admits that he has been using marijuana. Prior similar symptoms: [facility] Medical History Marijuana abuse Shanna-Jaime tear B12 nutritional deficiency Claustrophobia Mild cognitive impairment Tobacco use HLD (hyperlipidemia) HTN (hypertension) Right adrenal mass History of kidney stones History of seizure Cyclic vomiting syndrome Hiatal hernia Heart attack Home Medications ?Medication ?Instructions ?Recorded ?Last Taken ?Type amlodipine 10 mg tablet 10 mg PO DAILY 11/11/22 Unknown History aspirin 81 mg chewable tablet 81 mg PO DAILY 11/11/22 Unknown History atorvastatin 40 mg tablet 40 mg PO DAILY 11/11/22 Unknown History citalopram 40 mg tablet 40 mg PO DAILY 11/11/22 Unknown History sucralfate 1 gram tablet 1 g PO 4X/DAY 11/11/22 Unknown History acetaminophen 500 mg tablet 500 mg PO Q6H PRN pain 08/22/23 Unknown History (Tylenol Extra Strength) clopidogrel 75 mg tablet (Plavix) 75 mg PO DAILY 08/22/23 Unknown History metoprolol succinate 25 mg 25 mg PO DAILY 08/22/23 Unknown History tablet,extended release 24 hr nitroglycerin 0.4 mg sublingual 0.4 mg sublingual Q5M PRN chest 08/22/23 Unknown History tablet pain dicyclomine 20 mg tablet 20 mg PO Q6H PRN abdominal 06/30/24 Unknown Rx cramping #20 tabs lisinopril 40 mg tablet 40 mg PO DAILY 07/10/24 Unknown History trazodone 100 mg tablet 100 mg PO QHS 09/02/24 Unknown History magnesium chloride 64 mg 128 mg (2 x 64 mg) PO BID #60 tabs 10/18/24 Unknown Rx (magnesium chloride) tablet,delayed release (Mag 64) fenofibrate nanocrystallized 145 145 mg PO DAILY 11/10/24 Unknown History mg tablet ondansetron 4 mg disintegrating 4 mg PO Q6H PRN nausea and 11/12/24 Unknown Rx tablet vomiting #30 tabs pantoprazole 40 mg tablet,delayed 40 mg PO BID #60 tabs 11/13/24 Unknown Rx release ondansetron 4 mg disintegrating 4 mg PO Q8H PRN PRN Nausea #10 tabs 12/04/24 Unknown Rx tablet Allergy/AdvReac Type Severity Reaction Status Date / Time Penicillins (PCN) Allergy Severe Rash Verified 12/04/24 18:42 sertraline (From Zoloft) Allergy Severe Other Verified 12/04/24 18:42 meloxicam (From Mobic) Allergy Mild Itching Verified 12/04/24 18:42 chlorpromazine (From Allergy lethargic Verified 12/04/24 18:42 Thorazine) nitrofurantoin (From AdvReac Severe Rash Verified 12/04/24 18:42 Macrobid) Family History Mother Heart disease Father Heart disease Surgical History S/P primary angioplasty with coronary stent History of repair of hiatal hernia History of cholecystectomy Social History household members: spouse Smoking Status: Current every day smoker tobacco type: cigarettes and cigars per week: 28 alcohol intake: never details: Denies alcohol use and history of pancreatitis substance use type: does not use ROS ROS ED Constitutional Constitutional ED: Denies chills, fever(s) or sweats ENT ENT ED: Denies sore throat Cardiovascular Cardiovascular: Denies chest pain, leg edema, palpitations or racing heartbeat Respiratory/Chest Respiratory/Chest: Denies cough, dyspnea or dyspnea on exertion Gastrointestinal Gastrointestinal: Reports abdominal pain, nausea, vomiting and other Details: Denies hematemesis or melena ; Denies diarrhea Genitourinary Genitourinary ED: Denies dysuria, hematuria or urinary frequency Musculoskeletal Musculoskeletal: Denies back pain, extremity pain or neck pain Integumentary Denies rash or wounds Neurologic Neurologic: Denies headache(s), paresthesias or weakness EXAM Physical Exam Const Vital Signs: 12/04/24 18:36 12/04/24 21:16 12/04/24 23:00 Temperature 96.9 F L Temperature Source Temporal Pulse Rate 94 112 H 96 Respiratory Rate 19 H 16 19 H Blood Pressure 152/107 H 123/109 H 149/82 H Blood Pressure Mean 122 113 104 Pulse Ox 97 97 98 Oxygen Delivery Method Room Air Room Air Positive well nourished and well developed Constitutional Narrative: Nontoxic, rocking around bed. General Appearance ED: well developed HEENT Reports moist mucous membranes normocephalic and atraumatic Eyes General Eye ED: Yes normal appearance of both eyes Neck full ROM Chest Wall Chest: Negative for tenderness Resp normal respiratory effort and normal air movement Effort and Inspection: symmetric chest movement; Negative for respiratory distress Cardio regular rate, regular rhythm and no murmurs Peripheral Pulses: pulses 2+ throughout GI normal to inspection, nondistended, normoactive bowel sounds GI Narrative: Soft abdomen with generalized tenderness. No guarding or rebound. Palpation: Negative for guarding or rebound tenderness present Extremity normal to inspection General Extremety ED: Negative for edema or tenderness General Extremity: Negative for edema Neuro oriented x3 and no sensory deficits noted Sensorium / Orientation: awake and alert Skin no rashes or lesions noted and no wounds MDM MDM MDM Narrative Medical decision making narrative: Interventions / MDM: Differential diagnosis: Diagnosis considered but do not suspect: N/A My EKG interpretation: N/A Imaging independently reviewed and interpreted by myself: N/A External documents reviewed: N/A Test considered but not ordered:N/A ED course: Cyclic vomiting history from marijuana. IV be established for abdominal labs fluids. Zofran, Haldol, capsaicin ordered. He had normal QT EKG from last month. 2200: Clinically feeling much better labs white count was 20 lipase normal liver enzymes normal creatinine 1.7 up from 0.8 previously. Add additional 1 L of fluids. With the vomiting surgical history white count will obtain noncontrast CT for further evaluation. 2244: Or by nursing he had a run of narrow complex tachycardia. Reviewed heart rate 160. Abrupt back to sinus rhythm. Likely SVT. He is back in sinus rhythm. 2257: CT abdomen results shows no acute process. Fluids are running. 2330: Fluids running, will plan on p.o. challenge. If successful, plan discharge outpatient by PCP and cardiology. Patient signed out to night physician. Re-evaluation: stable Disposition discussed with patient/family/significant other: Case discussed with consulting clinician: N/A This note was generated with [employer] dictation software. It may contain incorrect words, spelling, and punctuation that were not noted in checking the note before signing. Lab Data Labs: Laboratory Results - last 24 hr 12/04/24 20:41 WBC 20.2 H RBC 3.98 L Hgb 10.9 L Hct 32.7 L MCV 82.2 MCH 27.4 MCHC 33.3 RDW Std Deviation 46.0 H RDW Coeff of Florencio 15.2 H Plt Count 523 H MPV 9.7 Immature Gran % (Auto) 0.800 Neut % (Auto) 88.5 H Lymph % (Auto) 3.2 L [place] % (Auto) 7.1 Eos % (Auto) 0.3 Baso % (Auto) 0.1 Absolute Neuts (auto) 17.9 H Absolute Lymphs (auto) 0.65 L Nucleated RBC % 0 Sodium 143 Potassium 3.7 Chloride 102 Carbon Dioxide 18.1 L Anion Gap 22 H BUN 16 Creatinine 1.73 H Estim Creat Clear Calc 43.37 L Est GFR (MDRD) Non-Af 43 L BUN/Creatinine Ratio 9.5 L Glucose 149 H Calcium 11.5 H Total Bilirubin 0.35 AST 30 ALT 12 Alkaline Phosphatase 54 Total Protein 7.8 Albumin 4.8 Globulin 3.1 Albumin/Globulin Ratio 1.6 Lipase 26 Radiography Diagnostic Testing: Clinical Impression(s) from Imaging Studies Abdomen/Pelvis CT 12/04/24 21:40 IMPRESSION: No acute findings in the abdomen and pelvis. Stable chronic findings as described above. One or more dose reduction techniques were used (e.g., Automated exposure control, adjustment of the mA and/or kV according to patient size, use of iterative reconstruction technique). Reading [facility] Discharge Plan Triage Chief Complaint: Nausea/Vomiting ED Provider: Romero Harrington Dx/Rx/DC Orders Clinical Impression: Cannabis abuse, Cyclical vomiting, Acute renal insufficiency, Dehydration, Abdominal pain, SVT (supraventricular tachycardia) Instructions: Supraventricular Tachycardia, Cannabinoid Hyperemesis Syndrome, ED Renal Insufficiency Prescriptions: New ondansetron 4 mg tablet,disintegrating 4 mg PO Q8H PRN PRN (Reason: Nausea) Qty: 10 0RF No Action clopidogrel [Plavix] 75 mg tablet 75 mg PO DAILY metoprolol succinate 25 mg tablet extended release 24 hr 25 mg PO DAILY nitroglycerin 0.4 mg tablet, sublingual 0.4 mg sublingual Q5M PRN (Reason: chest pain) Rx Instructions: do not exceed 3 doses per episode acetaminophen [Tylenol Extra Strength] 500 mg tablet 500 mg PO Q6H PRN (Reason: pain) atorvastatin 40 mg Tablet 40 mg PO DAILY citalopram 40 mg Tablet 40 mg PO DAILY sucralfate 1 gram Tablet 1 g PO 4X/DAY amlodipine 10 mg Tablet 10 mg PO DAILY aspirin 81 mg Tablet,Chewable 81 mg PO DAILY dicyclomine 20 mg tablet 20 mg PO Q6H PRN (Reason: abdominal cramping) Qty: 20 0RF lisinopril 40 mg tablet 40 mg PO DAILY fenofibrate nanocrystallized 145 mg tablet 145 mg PO DAILY ondansetron 4 mg tablet,disintegrating 4 mg PO Q6H PRN (Reason: nausea and vomiting) Qty: 30 0RF pantoprazole 40 mg tablet,delayed release (DR/EC) 40 mg PO BID Qty: 60 2RF trazodone 100 mg tablet 100 mg PO QHS magnesium chloride [Mag 64] 64 mg Tablet,Delayed Release (Dr/Ec) 128 mg PO BID Qty: 60 0RF Primary Care Provider: Arias Lemus Referrals: Arias Lemus, [Primary Care Provider] - 1 Week Candace Chapa MD [Med Staff - Active Staff] - 1-2 Weeks Activity Restrictions/Additional Instructions: Urine creatinine 1.7, 0.8 last month. You are given 2 L of fluid. You are treated for your cyclic vomiting with improvement. Avoid marijuana. Use nausea medicine as needed. Use topical cream as needed. Follow-up with your doctor. Follow-up with cardiology for your transient SVT. Print Language: Lithuanian Disposition Disposition: Home, Self Care Discharge Date/Time: 12/05/24 00:45
[2024-12-04 20:49] LABS: Absolute Lymphocyte Count 0.65 X10^3/uL (0.83-4.51); Absolute Neutrophil Count 17.9 X10^3/uL (2.0-7.7); Basophil# 0.03 X10^3/uL; Basophil% 0.1 % (0-1); Eosinophil# 0.06 X10^3/uL; Eosinophils% 0.3 % (0-5); Hematocrit 32.7 % (40-54); Hemoglobin 10.9 g/dL (13.0-16.5); Lymphocyte # 0.65 X10^3/ul (0.83-4.51); Lymphocyte % 3.2 % (19-41); Mean Corp Hgb Conc 33.3 g/dL (32-36); Mean Corpuscular Hgb 27.4 pg (27.0-32.0); Mean Corpuscular Volume 82.2 fL (80-94); Mean Platelet Vol. 9.7 fl (6.2-12.0); Monocyte# 1.44 X10^3/uL; Monocyte% 7.1 % (0-10); NRBC Flagged by Analyzer 0 % (0-5); Neutrophil # 17.86 X10^3/uL (2.7-7.7); Neutrophil % 88.5 % (47-70); Platelet Count 523 K/mm3 (150-450); RBC Distribution Width CV 15.2 % (11.6-14.6); Red Blood Count 3.98 M/mm3 (4.6-6.2); White Blood Count 20.2 K/mm3 (4.4-11.0)
[2024-12-04] MEDS: Haloperidol Lactate 5 MG/ML Vial 2 MG IV (21:09)
[2024-12-04] MEDS: Ondansetron 4 MG/2 ML Vial IV (21:09)
[2024-12-04] MEDS: Capsaicin 0.025% 1 APPLIC Tube TOPICAL (21:10)
[2024-12-04] MEDS: 0.9% Normal Saline (1000mL) 1,000 ML 999 ML IV ×2 (21:10→23:08)
[2024-12-04 21:16] VITALS: BP 123/109; PULSE 112; RESP 16; O2SAT 97
[2024-12-04 21:33] LABS: ALB/GLOB Ratio 1.6 RATIO (0.9-2.4); AST(SGOT) 30 U/L (<=37); Alanine Aminotransfer ALT/SGPT 12 U/L (<=46); Albumin, Serum 4.8 g/dL (3.4-4.8); Alkaline Phosphatase 54 U/L (40-129); Anion Gap 22 (5-15); BUN 16 mg/dL (4-19); BUN/Creat Ratio 9.5 RATIO (10-20); Calcium,Total 11.5 mg/dL (7.6-11.0); Carbon Dioxide 18.1 mmol/L (21.0-32.0); Chloride 102 mmol/L (98-108); Creatinine, Serum 1.73 mg/dL (0.70-1.20); EST Glomerular Filtration Rate 43 (>60); Estimated Creatinine Clearance 43.37 ml/min (50-250); Globulin 3.1 g/dL (2.2-4.2); Glucose 149 mg/dL (70-99); Lipase 26 U/L (13-75); Potassium 3.7 mmol/L (3.3-5.1); Protein, Total 7.8 g/dL (5.9-8.4); Sodium Level 143 mmol/L (133-145); Total Bilirubin 0.35 mg/dL (0.00-1.30)
--- NOTE | 2024-12-04 21:40 | CT_ITS ---
PROCEDURE: ABDOMEN/PELVIS WITHOUT CONT REASON FOR EXAM: VOMITING TECHNIQUE: Abdomen and pelvis CT with intravenous contrast. IV CONTRAST: COMPARISON: Multiple CTs of the abdomen and pelvis, most recently 11/10/2024 FINDINGS: Lung bases: Clear Liver: Unremarkable. Gallbladder: Status post cholecystectomy. Spleen: Unremarkable. Pancreas: Unremarkable. Adrenals: Diffuse bilateral adrenal thickening, unchanged over multiple prior examinations. Kidneys: Bilateral simple cysts, the largest in the left inferior pole measures 8.5 cm. Additional hyperdense lesion in the right upper pole, measures 2.4 cm. Bladder: Unremarkable. Reproductive Organs: Unremarkable. Bowel: Moderate hiatal hernia. Remainder of the stomach is unremarkable. No bowel dilation or wall thickening. Large amount of colonic stool. Appendix: Normal. Lymph nodes: No suspicious lymph node enlargement. Vasculature: Severe diffuse atherosclerotic calcifications are noted. Peritoneum / Retroperitoneum: No ascites. No free air. Bones: Degenerative changes of the spine. CT/Abdomen/Pelvis without Cont IMPRESSION: No acute findings in the abdomen and pelvis. Stable chronic findings as described above. One or more dose reduction techniques were used (e.g., Automated exposure contr ol, adjustment of the mA and/or kV according to patient size, use of iterative reconstruction technique). Reading Location: [facility]
[2024-12-04] MEDS: Metoclopramide 10 MG/2 ML Vial 5 MG IV (22:25)
[2024-12-04 23:00] VITALS: BP 149/82; PULSE 96; RESP 19; O2SAT 98
[2024-12-05 00:43] VITALS: BP 156/100; PULSE 97; RESP 18; TEMP 36.7; O2SAT 97
== END 2024-12-05 00:45 | disposition home or self-care (01) ==
PROVIDERS: Emergency Provider Emergency Medicine; PCP Family Medicine; Referring Provider Emergency Medicine; Visit Provider Emergency Medicine
DX: R11.15 Cyclical vomiting syndrome unrelated to migraine (principal); F12.188 Cannabis abuse with other cannabis-induced disorder; E86.0 Dehydration; N28.9 Disorder of kidney and ureter, unspecified; I10 Essential (primary) hypertension; E78.5 Hyperlipidemia, unspecified; I47.10 Supraventricular tachycardia, unspecified; I25.2 Old myocardial infarction; F17.210 Nicotine dependence, cigarettes, uncomplicated; F17.290 Nicotine dependence, other tobacco product, uncomplicated; Z95.5 Presence of coronary angioplasty implant and graft; Z79.82 Long term (current) use of aspirin; Z79.899 Other long term (current) drug therapy
CPT/HCPCS: 74176; 80053; 83690; 85025; 96361; 96374; 96375; 99283; A4216; J2405

== ENCOUNTER 2025-04-05 12:28 | Emergency (ER) | payer MEDICARE, SELFPAY ==
[2025-04-05 12:28] VITALS: BP 181/91; PULSE 83; RESP 20; TEMP 36.6; O2SAT 100; BMI 24.2
--- NOTE | 2025-04-05 12:35 | ED.VIS.GI ---
HPI HPI - GI History of Present Illness Chief Complaint: Nausea/Vomiting Informant: patient Abdominal Pain/Flank Pain Onset: Today Context: Gradual Onset Timing: Continuous Quality: Sharp Location: Diffuse Worsened by: Nothing Relieved by: Nothing Nausea/Vomiting/Emesis GI Symptom: Positive for Nausea and Vomiting Onset: Today Quality: Positive for Nonbilious; Negative for Blood streaks, Coffee ground or Hematemesis Diarrhea/Melena/Hematochezia GI Symptom: Negative for Diarrhea, Melena or Hematochezia Associated Symptoms Associated Symptoms: Negative for Dysuria, Frequency or Hematuria Narrative Narrative: Patient presents with abdominal pain, nausea, and vomiting that began today. Patient states that it came on gradually. Patient states it is constant. Patient states his pain is diffuse across his abdomen. Patient describes it as sharp. Patient states nothing makes it better nothing makes it worse. Patient denies any hematemesis or coffee-ground emesis. Patient denies any diarrhea, melena, or hematochezia. Patient denies any dysuria, frequency, or hematuria. Patient denies any fevers or chills. Patient does admit to smoking marijuana couple days ago. [facility] Medical History Marijuana abuse Shanna-Jaime tear B12 nutritional deficiency Claustrophobia Mild cognitive impairment Tobacco use HLD (hyperlipidemia) HTN (hypertension) Right adrenal mass History of kidney stones History of seizure Cyclic vomiting syndrome Hiatal hernia Heart attack Home Medications ?Medication ?Instructions ?Recorded ?Last Taken ?Type amlodipine 10 mg tablet 10 mg PO DAILY 11/11/22 Unknown History aspirin 81 mg chewable tablet 81 mg PO DAILY 11/11/22 Unknown History atorvastatin 40 mg tablet 40 mg PO DAILY 11/11/22 Unknown History citalopram 40 mg tablet 40 mg PO DAILY 11/11/22 Unknown History sucralfate 1 gram tablet 1 g PO 4X/DAY 11/11/22 Unknown History acetaminophen 500 mg tablet 500 mg PO Q6H PRN pain 08/22/23 Unknown History (Tylenol Extra Strength) clopidogrel 75 mg tablet (Plavix) 75 mg PO DAILY 08/22/23 Unknown History metoprolol succinate 25 mg 25 mg PO DAILY 08/22/23 Unknown History tablet,extended release 24 hr nitroglycerin 0.4 mg sublingual 0.4 mg sublingual Q5M PRN chest 08/22/23 Unknown History tablet pain dicyclomine 20 mg tablet 20 mg PO Q6H PRN abdominal 06/30/24 Unknown Rx cramping #20 tabs lisinopril 40 mg tablet 40 mg PO DAILY 07/10/24 Unknown History trazodone 100 mg tablet 100 mg PO QHS 09/02/24 Unknown History magnesium chloride 64 mg 128 mg (2 x 64 mg) PO BID #60 tabs 10/18/24 Unknown Rx (magnesium chloride) tablet,delayed release (Mag 64) fenofibrate nanocrystallized 145 145 mg PO DAILY 11/10/24 Unknown History mg tablet ondansetron 4 mg disintegrating 4 mg PO Q6H PRN nausea and 11/12/24 Unknown Rx tablet vomiting #30 tabs pantoprazole 40 mg tablet,delayed 40 mg PO BID #60 tabs 11/13/24 Unknown Rx release ondansetron 4 mg disintegrating 4 mg PO Q8H PRN PRN Nausea #10 tabs 12/04/24 Unknown Rx tablet ondansetron 4 mg disintegrating 4 mg PO Q8H PRN PRN Nausea #10 tabs 04/05/25 Unknown Rx tablet Allergy/AdvReac Type Severity Reaction Status Date / Time Penicillins (PCN) Allergy Severe Rash Verified 04/05/25 12:30 sertraline (From Zoloft) Allergy Severe Other Verified 04/05/25 12:30 meloxicam (From Mobic) Allergy Mild Itching Verified 04/05/25 12:30 chlorpromazine (From Allergy lethargic Verified 04/05/25 12:30 Thorazine) nitrofurantoin (From AdvReac Severe Rash Verified 04/05/25 12:30 Macrobid) Family History Mother Heart disease Father Heart disease Surgical History S/P primary angioplasty with coronary stent History of repair of hiatal hernia History of cholecystectomy Social History household members: spouse Smoking Status: Current every day smoker tobacco type: cigarettes and cigars per week: 28 alcohol intake: never details: Denies alcohol use and history of pancreatitis substance use type: does not use ROS ROS ED Constitutional Constitutional ED: Denies chills or fever(s) Eyes Eyes: Denies blurry vision or change in vision ENT ENT ED: Denies rhinorrhea or sore throat Cardiovascular Cardiovascular: Denies chest pain or palpitations Respiratory/Chest Respiratory/Chest: Denies cough or dyspnea Gastrointestinal Gastrointestinal: Reports abdominal pain, nausea and vomiting; Denies diarrhea or melena Genitourinary Genitourinary ED: Denies dysuria or hematuria Musculoskeletal Musculoskeletal: Reports back pain; Denies neck pain Integumentary Denies abscess or rash Neurologic Neurologic: Denies headache(s) or weakness Allergic/Immunologic Allergic/Immunologic ED: Denies mouth swelling or urticaria EXAM Physical Exam Const Vital Signs: 04/05/25 12:28 04/05/25 14:28 04/05/25 16:00 Temperature 97.8 F Temperature Source Oral Pulse Rate 83 77 77 Respiratory Rate 20 H 20 H Blood Pressure 181/91 H 192/113 H Blood Pressure Mean 121 139 Pulse Ox 100 97 Oxygen Delivery Method Room Air Room Air Positive well nourished and well developed Constitutional Narrative: BMI is 24.2. General Appearance ED: well developed and NAD HEENT Reports moist mucous membranes Neck supple and no JVD Resp normal respiratory effort and clear to auscultation bilaterally Cardio regular rate and regular rhythm GI non-distended Palpation: soft and tender epigastric, LLQ, RLQ, LUQ, RUQ, periumbilical and suprapubic Extremity General Extremety ED: Negative for edema or tenderness General Extremity: Negative for edema Neuro CN's II-XII intact bilaterally, moves all extremities and no sensory deficits noted Sensorium / Orientation: alert Motor Exam: strength 5/5 throughout Psych mental status grossly normal MDM MDM MDM Narrative Medical decision making narrative: Differential diagnosis includes cyclic vomiting, bowel obstruction, perforation, pancreatitis, gastritis, peptic ulcer disease, duodenal ulcer, and urinary tract infection. CBC will be obtained to assess for leukocytosis and anemia. Comprehensive metabolic profile will be obtained to assess for hepatic function, renal function, and electrolyte abnormality. Lipase will be obtained to assess for pancreatitis. Urinalysis will be obtained to assess for urinary tract infection and hematuria. History & Record Review Additional record(s) reviewed:: Prior outpatient record, Prior ED visit and Prior labs Lab Data Attestation: I reviewed the patient's lab results. Lab results narrative: CBC was reviewed. There is a mild leukocytosis of 18.9. Hemoglobin was slightly low at 11.2 and hematocrit was 34.7. These are consistent with previous results. Comprehensive metabolic profile was reviewed and was essentially within normal limits. Lipase was reviewed and was normal at 53. Urinalysis was reviewed. There is no evidence of urinary tract infection or hematuria. Labs: Laboratory Results - last 24 hr 04/05/25 04/05/25 13:22 15:36 WBC 18.9 H RBC 4.66 Hgb 11.2 L Hct 34.7 L MCV 74.5 L MCH 24.0 L MCHC 32.3 RDW Std Deviation 50.3 H RDW Coeff of Florencio 19.5 H Plt Count 414 MPV 10.0 Immature Gran % (Auto) 0.800 Neut % (Auto) 84.5 H Lymph % (Auto) 8.8 L [place] % (Auto) 4.7 Eos % (Auto) 0.8 Baso % (Auto) 0.4 Absolute Neuts (auto) 16.0 H Absolute Lymphs (auto) 1.67 Nucleated RBC % 0 Sodium 140 Potassium 3.9 Chloride 106 Carbon Dioxide 16.4 L Anion Gap 18 H BUN 13 Creatinine 1.06 Estim Creat Clear Calc 70.78 Est GFR (MDRD) Non-Af 77 BUN/Creatinine Ratio 11.9 Glucose 106 H Calcium 9.9 Total Bilirubin 0.29 AST 28 ALT 11 Alkaline Phosphatase 57 Total Protein 7.9 Albumin 4.6 Globulin 3.3 Albumin/Globulin Ratio 1.4 Lipase 53 Urine Color Yellow Urine Clarity Clear Urine pH 6.0 Ur Specific [place] 1.010 Urine Protein 15 H Urine Glucose (UA) Normal Urine Ketones Negative Urine Occult Blood 25 H Urine Nitrite Negative Urine Bilirubin Negative Urine Urobilinogen Normal Ur Leukocyte Esterase Negative Urine RBC 0-5 SEEN Urine WBC 0-5 SEEN Ur Squamous Epith Cells 0 SEEN Urine Bacteria 0 SEEN Urine Mucus 0 SEEN Radiography Diagnostic Testing: Clinical Impression(s) from Imaging Studies Abdomen/Pelvis CT 04/05/25 13:06 IMPRESSION: 1. No definite acute intra-abdominal abnormality. There is mild circumferential bladder wall thickening, correlate with urinalysis for evidence of cystitis. 2. Additional unchanged findings as detailed above. Reading Location: [id number] scan of the abdomen and pelvis was obtained. There is no acute abnormality. There is mild bladder wall thickening. There is no free air or free fluid. This was interpreted by the radiologist was also independently reviewed by myself. Treatment and Re-Evaluation :: Patient was given IV fluids. Cyclic vomiting order set was used. Patient had minimal relief with initial orders. Patient was given Reglan, Benadryl, and capsaicin cream. Patient was feeling better on reevaluation. Patient was given prescription for Zofran. Patient was instructed to follow-up with his primary care physician in 5 to 7 days. Patient understood and was agreeable with the plan. All questions were answered. Discharge Plan Triage Chief Complaint: Nausea/Vomiting ED Provider: Pieter Yoon Dx/Rx/DC Orders Clinical Impression: Cyclical vomiting, Marijuana use, Leukocytosis Instructions: ED Cyclic Vomiting Syndrome Prescriptions: New ondansetron 4 mg tablet,disintegrating 4 mg PO Q8H PRN PRN (Reason: Nausea) Qty: 10 0RF No Action clopidogrel [Plavix] 75 mg tablet 75 mg PO DAILY metoprolol succinate 25 mg tablet extended release 24 hr 25 mg PO DAILY nitroglycerin 0.4 mg tablet, sublingual 0.4 mg sublingual Q5M PRN (Reason: chest pain) Rx Instructions: do not exceed 3 doses per episode acetaminophen [Tylenol Extra Strength] 500 mg tablet 500 mg PO Q6H PRN (Reason: pain) atorvastatin 40 mg Tablet 40 mg PO DAILY citalopram 40 mg Tablet 40 mg PO DAILY sucralfate 1 gram Tablet 1 g PO 4X/DAY amlodipine 10 mg Tablet 10 mg PO DAILY aspirin 81 mg Tablet,Chewable 81 mg PO DAILY dicyclomine 20 mg tablet 20 mg PO Q6H PRN (Reason: abdominal cramping) Qty: 20 0RF lisinopril 40 mg tablet 40 mg PO DAILY fenofibrate nanocrystallized 145 mg tablet 145 mg PO DAILY ondansetron 4 mg tablet,disintegrating 4 mg PO Q6H PRN (Reason: nausea and vomiting) Qty: 30 0RF pantoprazole 40 mg tablet,delayed release (DR/EC) 40 mg PO BID Qty: 60 2RF trazodone 100 mg tablet 100 mg PO QHS magnesium chloride [Mag 64] 64 mg Tablet,Delayed Release (Dr/Ec) 128 mg PO BID Qty: 60 0RF ondansetron 4 mg tablet,disintegrating 4 mg PO Q8H PRN PRN (Reason: Nausea) Qty: 10 0RF Primary Care Provider: Arias Lemus Referrals: Arias Lemus DO [Primary Care Provider] - 3-5 Days Print Language: Greenlandic Disposition Disposition: Home, Self Care
--- NOTE | 2025-04-05 13:06 | CT_ITS ---
PROCEDURE: ABDOMEN/PELVIS W IV CONT ONLY 04/05/2025 REASON FOR EXAM: ABDOMINAL PAIN TECHNIQUE: ABDOMEN/PELVIS W IV CONT ONLY Coronal and Sagittal reconstruction series were provided. CONTRAST: Isovue 370 VOLUME: 89 mL One or more dose reduction techniques were used (e.g., Automated exposure control, adjustment of the mA and/or kV according to patient size, use of iterative reconstruction technique. RADIATION DOSE SUMMARY: CTDlvol: 13.4 mGy DLP: 698 mGycm COMPARISON: CT abdomen and pelvis on 12/04/2024, 11/10/2024, and 06/30/2024 FINDINGS: Lung bases: Lung bases are clear. Multivessel coronary calcifications. Hiatal hernia, unchanged. Liver: Unremarkable Gallbladder: Surgically absent. Spleen: Scattered calcifications suggestive of prior granulomatous disease Pancreas: Normal size without evidence of mass surrounding inflammation or ductal dilation. Adrenals: Thickening of the adrenal glands, [id number], is again unchanged. Kidneys: No hydronephrosis or radiodense stone. There are numerous simple cysts throughout both kidneys. A hyperdense cyst in the interpolar region of the right kidney is also unchanged. A lesion at the interpolar region of the left kidney measuring 1.4 cm and 30 Hounsfield units (series 2, image 44) remains unchanged, and measured simple fluid density on prior exams suggesting density is artifactually increased on today's exam. Bladder: Mild circumferential wall thickening. Reproductive Organs: Unremarkable Bowel: Mildly prominent loops of air-filled small bowel in the anterior abdomen, without significant dilation or focal transition point to suggest obstruction. No significant inflammatory changes involving the bowel.. Appendix: Unremarkable Lymph nodes: No suspicious lymph node enlargement. Vasculature: Diffuse atherosclerotic calcifications are noted. Slight fusiform ectasia of the infrarenal abdominal aorta measuring up to 1.8 cm is unchanged. Bones: Degenerative changes of the spine. Soft tissues: Fluid in the right inguinal canal. CT/Abdomen/Pelvis W IV Cont ONLY IMPRESSION: 1. No definite acute intra-abdominal abnormality. There is mild circumferentia l bladder wall thickening, correlate with urinalysis for evidence of cystitis. 2. Additional unchanged findings as detailed above. Reading Location: [id number]
--- OUTSIDE RECORDS SUMMARY | 2025-04-05 13:10 | XMS RPT_ITS | CCD ---
Author Organization [facility] Providers Care Team Lead Name Role Phone PRERNA LEMUS Unavailable Unavailable ROBUSTPRERNA Pereira Unavailable Unavailable BRIZENDINE, CATHERINE Unavailable Unavailable ROBUSTO, G DESIREE Unavailable Unavailable GUARDADO, MER Unavailable Unavailable ROBUSTO, G DESIREE Unavailable Unavailable ROBUSTO, G DESIREE Unavailable Unavailable VILLAROSA, NYDIA Unavailable Unavailable REPENNING, BURTON Unavailable Unavailable YOO, ASHELY Unavailable Unavailable JOSE L, MAZEN Unavailable Unavailable JOSE L, MAZEN Unavailable Unavailable ROBUSTO, G DESIREE Unavailable Unavailable ROBUSTO, G DESIREE Unavailable Unavailable ALYSE, SORAYA Unavailable Unavailable HODGES, TRILOK Unavailable Unavailable MAATOUK, AHMAD Unavailable Unavailable GUARDADO, MER Unavailable Unavailable ROBUSTO, G DESIREE Unavailable Unavailable ROBUSTRandall, PRERNA, R (DO) Referring Unavaila ble JOSE L, MAZEN Attending Unavailable ROBUSTO, G DESIREE Primary Care Unavailable HODGES, TRILOK Attending Unavailable HODGES, TRILOK Referring Unavailable ROBUSTO, G DESIREE Primary Care Unavailable HODGES, TRILOK Attending Unavailable ROBUSTO, G DESIREE Primary Care Unavailable HODGES, TRILOK Attending Unavailable ROBUSTO, G DESIREE Primary Care Unavailable HODGES, TRILOK Attending Unavailable ROBUSTO, G DESIREE Primary Care Unavailable ALYSE, SORAYA Attending Unavailable ROBUSTO, G DESIREE Primary Care Unavailable HODGES, TRILOK Attending Unavailable ROBUSTO, G DESIREE Primary Care Unavailable DESIREE GARG Attending Unavailable ROBUSTO, G DESIREE Primary Care Unavailable PHYSICIAN, NOT RECORDED Primary Care Physician U navailable Prerna Lemus DO Primary Care Provider PRERNA LEMUS Primary Care Unavailable PRERNA LEMUS DO Primary Care Physicia n Miguel Ángel Hou Unavailable Ashlee Cardenas Unavailable Unavailable Theresa, Dr. Ashlee Ruggiero Attending Luz Elena vailable Theresa Dr. Ashlee Ruggiero Admitting Luz Elena vailable Patient, Unavailable Referring Unavailable ROBUSTO DO, PRERNA DESIREE Primary Care Unava ilable BERNICE GIORDANO, DR ROBB Attending Unavailab morro LLAMAS MD, JOSEPH Sim Attending Unavail able ROBUSTO DO, PRERNA DESIREE Primary Care Unava ilable SOBEIDA JOHNS Attending Unavailable ROBUSTO DO, PRERNA DESIREE Primary Care Unava ilable ROB GRIMALDO-DRAUGHTSMAN, CHARLENE Admitting Unavailab le REFERRING, [facility] Primary Care Unavailable BASIL GIORDANO, RAMESH Attending Unavailable BASIL GIORDANO, RAMESH Referring Unavailable MARY LOU GIORDANO FACP, BILLIE Mora Admitting Unavail able ROBUSTO DO, PRERNA DESIREE Primary Care Unava ilable MER VICTORIA MD Consulting Unavailable TREY VARGAS DO Attending Unavailable ROBUSTO DO, PRERNA DESIREE Primary Care Unava ilable JAMEL MARCUS MD Attending Unavailable MARY LOU GIORDANO FACP, BILLIE Mora Consulting Unavail able Dr. Fredi Angeles Attending Provider [phone] Care Physician, No Primary Primary Care Provider Unavailable Care Physician, No Primary Referring Provider Un available Dr. Fredi Angeles Attending Provider ROBUSTO, PRERNA Primary Care Provider Unavailabl e ROBUSTO, PRERNA Referring Provider Unavailable Dr. Fredi Angeles Referring Provider Kam, Dewey Attending Unavailable Robusto, Prerna R Primary Care Unavailable Care Physician, No Primary Primary Care Unava ilable Patience Lane Attending Unavailable COCO FRANCIS Primary Care Unavailable Patience Lane Attending Unavailable Robusto, Prerna R Primary Care Unavailable LoweTrey Attending Unavailable Kam, Dewey Referring Unavailable Trey Lowe Consulting Unavailable LoweTrey Admitting Unavailable Robusto, Prerna R Primary Care Unavailable Emile, Aiden Attending Unavailable Talib Diaz Consulting Unavailable Koram, Aracelis Floresita Consulting Unavailable Koram, Aracelis Floresita Attending Unavailable White, Iris L Consulting Unavailable White, Iris L Attending Unavailable White, Iris L Admitting Unavailable Robusto, Prerna R Primary Care Unavailable Mer Frias Attending Unavailable White, Iris L Consulting Unavailable White, Iris L Admitting Unavailable Robusto, Prerna R Primary Care Unavailable Kam, Dewey Referring Unavailable Trey Lowe Consulting Unavailable Aracelis Roberson Attending Unavailable Robusto, Prerna R Primary Care Unavailable Trey Lowe Admitting Unavailable Talib Diaz Consulting Unavailable Con Landeros Attending Unavailable Care Physician, No Primary Primary Care Unava ilable Dada Chung Attending Unavailable [facility] Primary Care Unavailable Care Physician, No Primary Primary Care Unava ilable Patience Lane Attending Unavailable Fredi Angeles Attending Unavailable Baddour, Fredi Referring Unavailable Robusto, Prerna R Primary Care Unavailable Baddour, Fredi Referring Unavailable Badyin, Fredi Attending Unavailable KAGER, COCO Primary Care Unavailable Robusto, Prerna R Primary Care Unavailable Henry Ortiz Attending Unavailable Robusto, Prerna R Primary Care Unavailable Henry Ortiz Attending Unavailable Pieter Yoon Attending Unavailable Robusto, Prerna R Primary Care Unavailable Romero Harrington Attending Unavailable Le, Romero Referring Unavailable Robusto, Prerna R Primary Care Unavailable Dada Chung Attending Unavailable Robusto, Prerna R Primary Care Unavailable BaddoDanny birdmond Attending Unavailable Robusto, Prerna R Primary Care Unavailable Robusto, Prerna R Referring Unavailable Baddour, Fredi Referring Unavailable Baddour, Fredi Attending [facility]available [facility] Primary Care Unavailable Kam, Dewey Attending Unavailable Care Physician, No Primary Primary Care Unava ilable Patience Lane Attending Unavailable Care Physician, No Primary Primary Care Unava ilable White, Iris L Consulting Unavailable White, Iris L Admitting Unavailable Robusto, Prerna R Primary Care Unavailable Mirta Meza Attending Unavailable Fredi Angeles Attending Unavailable Baddour, Fredi Referring Unavailable Robusto, Prerna R Primary Care Unavailable Talib Diaz Attending Unavailable Mer Frias Attending Unavailable White, Iris L Consulting Unavailable White, Iris L Admitting Unavailable Robusto, Prerna R Primary Care Unavailable Mer Frias Consulting Unavailable Kancherla, Eligio Referring Unavailable Robusto, Prerna R Primary Care Unavailable Lori Xavier Attending Unavailable White, Iris L Attending Unavailable Robusto, Prerna R Primary Care Unavailable Mirta Meza Attending Unavailable Mirta Meza Consulting Unavailable Karthik, Fredi Attending Unavailable Robusto, Prerna R Primary Care Unavailable Baddour, Fredi Referring Unavailable Baddour, Fredi Referring Unavailable Baddour, Fredi Attending Unavailable Baddour, Fredi Referring Unavailable Baddour, Fredi Attending Unavailable Care Physician, No Primary Primary Care Unava ilable Baddour, Fredi Attending Unavailable Baddour, Fredi Referring Unavailable COCO FRANCIS Primary Care Unavailable Baddour, Fredi Referring Unavailable Baddour, Fredi Attending Unavailable Care Physician, No Primary Primary Care Unava ilable Baddour, Fredi Attending Unavailable Baddour, Fredi Referring Unavailable Robusto, Prerna R Primary Care Unavailable Baddour, Fredi Referring Unavailable Baddour, Fredi Attending Unavailable Robusto, Prerna R Primary Care Unavailable [place], Truong Attending Unavailable [place], Truong Referring Unavailable Carson Montenegro Attending Unavailable Robusto, Prerna R Primary Care Unavailable Robusto DO, Dr. Prerna Madison Primary Care Provider Karthik GIORDANO, Dr. Rai Attending Provider Dr. Fredi Angeles MD Referring Provider [phone] Dr. Trenton Ruiz DO Emergency Provider Ernesto GIORDANO, Dr. Iris Goss Admit Provider Ernesto GIORDANO, Dr. Iris Goss Other Provider Derrick BRASHER, Dr. Kirby Attending Provider Derrick BRASHER, Dr. Kirby Other Provider Dada Chung MD Attending Provider Dada Chung MD Emergency Provider Dr. Truong Cooper DO Attending Provider Dr. Truong Cooper DO Referring Provider Dr. Truong Cooper DO Emergency Provider Diandra BRASHER, Dr. Mcneil Emergency Provider Ernesto GIORDANO, Dr. Iris Goss Attending Provider Rodriguez GIORDANO, Dr. Mari Attending Provider Unavaila ble Rodriguez GIORDANO, Dr. Mari Other Provider Unavailable Robustrandall DO, Dr. Prerna Madison Referring Provider Angel GIORDANO, Dr. Figueroa Attending Provider Angel GIORDANO, Dr. Figueroa Emergency Provider Eddy GIORDANO, Dr. Palomo Emergency Provider Mynor GIORDANO, Dr. Yang Attending Provider Eddy GIORDANO, Dr. Palomo Referring Provider Mynor GIORDANO, Dr. Yang Admit Provider Mynor GIORDANO, Dr. Yang Other Provider Karol GIORDANO, Dr. Aracelis Canas Attending Provider Joe GIORDANO, Dr. Talib Duran Other Provider [phone] Joe GIORDANO, Dr. Talib Duran Attending Provider Karol GIORDANO, Dr. Aracelis Canas Other Provider Dr. Aiden Baptiste DO Attending Provider Duc GIORDANO, Dr. Sandoval Attending Provider Caprice GIORDANO, Dr. Del Valle Referring Provider Dr. Romeor Harrington DO Referring Provider Dr. Romero Harrington DO Emergency Provider Allergies Allergy Classification Reported Allergen(s) Allergy Type Date of Onset Reaction(s) Facility (5 sources) morphine; Translations: [MORPHINE] Drug Allergy 07-26-20 11 Unknown [facility] (4 sources) NITROFURANTOIN MONOHYD/M-CRYST; Translations: [NITROFURANTOIN MONOHYD/M-CRYST] Propensity to adverse reactions (disorder) 07-26-20 11 Unknown [facility] Rep[facility] (9 sources) meloxicam; Translations: [meloxicam] Drug Allergy 12-05-19 25 [facility] (8 sources) NITROFURANTOIN, MACROCRYSTALS / Nitrofurantoin, Monohydrate; Translations: [nitrofurantoin] Drug Allergy black eyes [facility] (9 sources) Penicillin; Translations: [penicillin] Drug Allergy [facility] (16 sources) Sertraline; Translations: [sertraline] Drug Allergy 09-06-20 chest pain, Other [facility] (13 sources) Nitrofurantoin Drug Allergy 11-11-19 Rash [facility] (14 sources) Penicillins; Translations: [PENICILLINS] Allergy to substance 11-12-19 Rash [facility] (1 source) Penicillins Propensity to adverse reactions to drug 11-12-[address] [facility] (1 source) NITROFURANTOIN, MACROCRYSTALS / Nitrofurantoin, Monohydrate Drug Allergy Unknown [facility] (1 source) Vancomycin Drug Allergy Rash [facility] (1 source) chlorproMAZINE Drug Allergy 12-05-19 [facility] (1 source) meloxicam Drug Allergy 12-05-19 [facility] (1 source) Nitrofurantoin Drug Allergy 12-05-19 [facility] (1 source) Penicillins Drug allergy (disorder) 12-05-19 [facility] (1 source) Sertraline Drug Allergy 12-05-19 [facility] (1 source) chlorproMAZINE Drug Allergy 12-05-19 [facility] Medications Current Medications Medication Drug Class(es) Dates Sig (Normalized) Sig (Original) acetaminophen 500 mg oral tablet (8 sources) Start: 08-22-2023 acetaminophen 325 mg / oxyCODONE hydrochloride 5 mg oral tablet (3 sources) Opioid Agonist Start: 06-25-2022 acetaminophen-oxyC ODONE 325 mg-5 mg oral tablet 0 Refill(s) Start Date: 06/25/22 Status: Ordered Start: 06-17-2022 End: 06-21-2022 take 1 tablet by mouth every eight hours as needed for pain acetaminophen-oxyCODONE 325 mg-5 mg oral tablet Dose = 1 tab(s), Oral, q8h, PRN as needed for pain, X 4 day(s), # 12 tab(s), 0 Refill(s), Monge fracture Start Date: 06/17/22 Stop Date: 06/21/22 Status: Ordered amLODIPine 10 mg oral tablet (20 sources) Dihydropyridine Calcium Channel Angelica Start: 06-25-2022 Start: 02-24-2017 End: 08-22-2017 take 1 tablet by mouth once daily amLODIPine 10 mg oral tablet ; 1 tab(s) orally once a day Quantity: 30 Refills: 5 Ordered: 24-Feb-2017 Mae Jaime Start: 24-Feb-2017 End: 22-Aug-2017 Generic Substitution Allowed Comment on above: Take 10 mg by mouth once daily. aspirin 81 mg delayed release oral tablet (16 sources) Platelet Aggregation Inhibitor, Nonsteroidal Anti-inflammatory Drug Start: 07-04-2023 aspirin 81 mg oral delayed release tablet Dose : 81 mg = 1 tab(s), Oral, Daily, 0 Refill(s) Start Date: 07/04/23 Status: Ordered Start: 11-11-2022 Start: 02-24-2017 End: 08-22-2017 take 1 tablet by mouth once daily aspirin 81 mg oral tablet, chewable ; 1 tab(s) orally once a day Quantity: 30 Refills: 5 Ordered: 24-Feb-2017 Mae Jaime Start: 24-Feb-2017 End: 22-Aug-2017 Generic Substitution Allowed Start: 10-02-2014 take 1 tablet by saira th once daily aspirin, enteric coated (ASPIRIN, ENTERIC COATED) 81 mg EC tablet Take 1 tablet by mouth once daily. 30 tablet 0 10/02/2014 Active Comment on above: Take 1 tablet by saira th once daily. atorvastatin 40 mg oral tabl et (20 sources) HMG-CoA Reductase Inhibitor Start: 06-25-2022 Start: 02-24-2017 End: 08-22-2017 take 1 tablet by mouth once at bedtime atorvastatin 40 mg oral tablet ; 1 tab(s) orally once (at bedtime) Quantity: 30 Refills: 5 Ordered: 24-Feb-2017 Mae Jaime Start: 24-Feb-2017 End: 22-Aug-2017 Generic Substitution Allowed citalopram 40 mg oral tablet (20 sources) Serotonin Reuptake Inhibitor Start: 06-25-2022 Comment on above: Take 40 mg by mouth once daily. clopidogrel 75 mg oral table t (18 sources) P2Y12 Platelet Inhibitor Start: 08-22-2023 Start: 06-25-2022 clopidogrel 75 mg oral tablet Dose : 75 mg = 1 tab(s), Oral, qDay, 0 Refill(s) Start Date: 04/06/23 Status: Ordered fenofibrate 145 mg oral tabl et (20 sources) Peroxisome Proliferator Receptor alpha Agonist Start: 11-10-2024 Start: 07-10-2024 End: 10-17-2024 Start: 04-06-2023 fenofibrate 16 0 mg oral tablet Dose : 160 mg = 1 tab(s), Oral, qDay, 0 Refill(s) Start Date: 04/06/23 Status: Ordered Start: 11-11-2022 End: 11-10-2024 Start: 06-25-2022 fenofibrate 14 5 mg oral tablet Dose : 145 mg = 1 tab(s), Oral, qDay, 0 Refill(s) Start Date: 06/25/22 Status: Ordered levoFLOXacin 750 mg oral tablet (1 source) Quinolone Antimicrobial Start: 04-08-2023 End: 04-12-2023 take 1 tablet by mouth once daily levoFLOXacin 750 mg oral tablet ; 1 tab(s) orally once a day Quantity: 5 Refills: 0 Ordered: 08-Apr-2023 Dariel Campbell Start: 08-Apr-2023 End: 12-Apr-2023 Generic Substitution Allowed Comments: Avoid prolonged or excessive exposure to direct and/or artificial sunlight while taking this medication.Do not take dairy products, antacids, or iron preparations within one hour of this medication.Finish all this medication unless otherwise directed by prescriber.May cause drowsiness or dizziness.Medication should be taken with plenty of water. Comment on above: Avoid prolonged or e xcessive exposure to direct and/or artificial sunlight while taking this medication.Do not take dairy products, antacids, or iron preparations within one hour of this medication.Finish all this medication unless otherwise directed by prescriber.May cause drowsiness or dizziness.Medication should be taken with plenty of water. lisinopril 40 mg oral tablet (20 sources) Angiotensin Converting Enzyme Inhibitor Start: 07-10-2024 Start: 06-20-2023 lisinopril 40 mg oral tablet Dose : 40 mg = 1 tab(s), Oral, qDay, # 30 tab(s), 0 Refill(s) Start Date: 06/20/23 Status: Ordered Start: 11-13-2019 End: 09-02-2024 Comment on above: Take 1 tablet by saira once daily. magnesium chloride 598 mg delayed release oral tablet (1 source) Start: 10-18-2024 magnesium oxide 250 mg oral tablet (2 sources) Start: 07-04-2023 Magnesium 250 mg tablet Dose : 250 mg = 1 tab(s), Oral, qDay Start Date: 07/04/23 Status: Ordered Start: 11-12-2019 magnesium oxid e 200 mg magnesium tab Take 200 tablets by mouth once daily. Pt takes 2-200mg tablets once a day 0 11/12/2019 Active Comment on above: Take 200 tablets by mouth once daily. Pt takes 2-200mg tablets once a day 24 hr metoprolol succinate 2 5 mg extended release oral tablet (17 sources) beta-Adrenergic Angelica Start: 08-22-2023 Start: 11-13-2019 Metoprolol Suc cinate ER 25 mg oral TABLET extended release Dose : 25 mg = 1 tab(s), Oral, qDay, 0 Refill(s) Start Date: 06/25/22 Status: Ordered take 1 tablet by saira th once daily metoprolol succinate 25 mg oral tablet, extended release ; 1 tab(s) orally once a day Quantity: 0 Refills: 0 Ordered: 07-Apr-2023 Luca Torres Generic Substitution Allowed Comment on above: Take 25 mg by mouth twice daily. nitroglycerin 0.4 mg subling ual tablet (8 sources) Nitrate Vasodilator Start: 08-22-2023 Start: 08-22-2023 Nitroglycerin Active 0.4 MG SL Q5M August 22, 2023 1:00am do not exceed 3 doses per episode ondansetron 4 mg disintegrat ing oral tablet (20 sources) Serotonin-3 Receptor Antagonist Start: 11-12-2024 Start: 09-06-2023 End: 01-16-2024 Start: 04-06-2023 take 1 dose intraven ously every four hours as needed Zofran Dose : 4 mg = 2 mL, IV Push, q4h, PRN Nausea/Vomiting, 0 Refill(s) Start Date: 04/06/23 Status: Ordered Start: 12-06-2022 End: 08-22-2023 take 1 tablet by saira th every eight hours as needed ondansetron (ZOFRAN, HYDROCHLORIDE,) 4 mg tablet Take 4 mg by mouth every 8 hours as needed for Nausea/Vomiting. 0 Active Comment on above: Take 4 mg by mouth e very 8 hours as needed for Nausea/Vomiting. pantoprazole 40 mg delayed release oral tablet (8 sources) Proton Pump Inhibitor Start: 09-02-2024 End: 11-13-2024 Start: 07-04-2023 pantoprazole 2 0 mg oral enteric coated tablet Dose : 20 mg = 1 tab(s), Oral, qDayAC, 0 Refill(s) Start Date: 07/04/23 Status: Ordered Start: 01-16-2023 pantoprazole 4 0 mg oral enteric coated tablet Dose : 40 mg = 1 tab(s), Oral, qDayAC, # 14 tab(s), 0 Refill(s), Pharmacy: [id number], 177.8, cm, 01/15/23 8:01:00 EDT, Height Start Date: 01/16/23 Status: Ordered potassium chloride 1.33 meq oral tablet (1 source) Start: 07-04-2023 potassium chlo ride 99 mg oral tablet Dose : 99 mg = 1 tab(s), Oral, qDay, Take with food, # 100 tab(s), 0 Refill(s) Start Date: 07/04/23 Status: Ordered Protonix IV Push (2 sources) Start: 04-06-2023 Protonix IV Pu sh Dose : 40 mg =, IV Push, BIDAC, 0 Refill(s) Start Date: 04/06/23 Status: Ordered traZODone hydrochloride 100 mg oral tablet (20 sources) Serotonin Reuptake Inhibitor Start: 09-02-2024 Start: 04-06-2023 traZODone 100 mg oral tablet Dose : 100 mg = 1 tab(s), Oral, qHS, 0 Refill(s) Start Date: 04/06/23 Status: Ordered Start: 11-11-2022 End: 09-02-2024 Start: 06-25-2022 traZODone 50 m g oral tablet Dose : 100 mg = 2 tab(s), Oral, qHS, 0 Refill(s) Start Date: 06/25/22 Status: Ordered traZODone (DESYR EL) 50 mg tablet Take 75 mg by mouth daily at bedtime. 0 Active Comment on above: Take 75 mg by mouth daily at bedtime. 200 ml vancomycin 5 mg/ml injection (2 sources) Glycopeptide Antibacterial Start: 04-06-20 take 1 dose intravenously every twenty-four hours vancomycin 1 g/200 mL intravenous solution Dose : 1,000 mg = 200 mL, IV Piggyback, q24h, 0 Refill(s) Start Date: 04/06/23 Status: Ordered Vitamin D3 25 mcg (1000 intl units) oral capsule (1 source) Start: 07-04-20 Vitamin D3 25 mcg (1000 intl units) oral capsule Dose : 25 mcg = 1 cap(s), Oral, Daily, 0 Refill(s) Start Date: 07/04/23 Status: Ordered Completed/Discontinued Medications Medication Drug Class(es) Dates Sig (Normalized) Sig (Original) ALPRAZolam 1 mg oral tablet (8 sources) Benzodiazepine Start: 08-22-2023 End: 09-02-2024 Start: 08-22-2023 Alprazolam Act wilfrido 0 .ROUTE .COMPLEX August 22, 2023 1:00am Take 1 tablet orally 30 minutes prior to MRI dicyclomine hydrochloride 20 mg oral tablet (20 sources) Anticholinergic Start: 01-16-2024 End: 06-30-2024 Start: 11-11-2022 End: 08-22-2023 take 1 tablet by saira four times daily dicyclomine 20 mg oral tablet ; 1 tab(s) orally 4 times a day Quantity: 0 Refills: 0 Ordered: 07-Apr-2023 Luca Torres Generic Substitution Allowed hydroCHLOROthiazide 25 mg oral tablet (1 source) Thiazide Diuretic take 1 tablet by mouth once daily hydroCHLOROthiazide (HYDRODIURIL, ESIDRIX) 25 mg tablet Take 25 mg by mouth once daily. 0 Active Comment on above: Take 25 mg by mouth once daily. Dilaudid (4 sources) Opioid Agonist Start: 023 Dilaudid Dose : 1 mg = 1 mL, IV Push, q2h, PRN Pain, scale 7-10, 0 Refill(s), 84.1 Start Date: 04/06/23 Status: Ordered Start: 04-06-2023 Dilaudid Dose : 0.5 mg = 0.5 mL, IV Push, q2h, PRN Pain, scale 4-6, 0 Refill(s), 84.1 Start Date: 04/06/23 Status: Ordered lansoprazole 15 mg delayed release oral capsule (8 sources) Proton Pump Inhibitor Start: 08-22-2023 End: 03-27-2024 meloxicam 15 mg oral tablet (18 sources) Nonsteroidal Anti-inflammatory Drug Start: 06-25-2022 End: 09-02-2024 meropenem 500 mg injection (2 sources) Penem Antibacterial Start: 04-06-2023 meropenem 500 mg intravenous injection Dose : 500 mg =, IV Piggyback, q8h, 0 Refill(s), 84.1 Start Date: 04/06/23 Status: Ordered metoclopramide 10 mg oral tablet (3 sources) Dopamine-2 Receptor Antagonist Start: 03-27-2024 End: 09-02-2024 take 1 tablet by saira th four times daily metoclopramide HCl (REGLAN) 10 mg tablet Take 10 mg by mouth four times daily. 0 Active Comment on above: Take 10 mg by mouth four times daily. prochlorperazine 10 mg oral tablet (5 sources) Phenothiazine Start: End: take 1 capsule by mouth three times daily Compazine use prochlorperazine Dose : 10 mg =, Oral, TID, # 12 cap(s), 0 Refill(s), Abdominal pain Start Date: 03/09/23 Stop Date: 03/12/23 Status: Ordered promethazine hydrochloride 25 mg oral tablet (20 sources) Phenothiazine Start: End: Start: 01-01-2023 End: 08-22-2023 Start: 06-25-2022 End: 06-28-2022 promethazine 25 mg oral tabl et Dose : 25 mg = 1 tab(s), Oral, q6h, # 12 tab(s), 0 Refill(s) Start Date: 06/25/22 Stop Date: 06/28/22 Status: Ordered Start: 06-25-2022 End: 06-28-2022 promethazine 25 mg rectal hines ppository Dose : 25 mg = 1 supp, Rectal, q6h, # 12 supp, 0 Refill(s) Start Date: 06/25/22 Stop Date: 06/28/22 Status: Ordered promethazine 25 mg rectal suppository ; 1 suppository(ies) rectal 2 times a day, As Needed Quantity: 0 Refills: 0 Ordered: 26-Nov-2015 Hussain Sorto Generic Substitution Allowed simvastatin 40 mg oral tablet (1 source) HMG-CoA Reductase Inhibitor take 1 tablet by mouth once daily at bedtime simvastatin (ZOCOR) 40 mg tablet Take 40 mg by mouth daily at bedtime. 0 Active Comment on above: Take 40 mg by mouth daily at bedtime. sucralfate 1000 mg oral tablet (16 sources) Aluminum Complex Start: 3 sucralfate 1 g oral tablet Dose : 1 gram(s) = 1 tab(s), Oral, QID, # 180 tab(s), 0 Refill(s) Start Date: 01/15/23 Status: Ordered Start: 11-11-2022 ticagrelor 60 mg oral tablet (1 source) Start: 11-12-2019 take 1 tablet by mouth twice daily ticagrelor (BRILINTA) 60 mg tablet Take 60 mg by mouth twice daily. 0 11/12/2019 Active Comment on above: Take 60 mg by mouth twice daily. Vitamin B Complex (1 source) take 1 tablet by mouth once daily VITAMIN B COMPLEX (B COMPLEX 1 ORAL) Take 1 tablet by mouth once daily. 0 Active Comment on above: Take 1 tablet by saira th once daily. Problems Active Problems Problem Classification Problem Date Documented Da te Episodic/Chronic Abdominal pain (20 sources) Abdominal pain; Translations: [Unspecified abdominal pain] Onset: 3 11-11-2022 Episodic Acute and unspecified renal failure (2 sources) Acute renal failure syndrome; Translations: [Acute kidney failure, unspecified] 11-21-2024 Episodic Allergic reactions (1 source) Allergy status to penicillin; Translations: [Allergy status to penicillin] Onset: 3 Episodic Anxiety disorders (8 sources) Claustrophobia; Translations: [Claustrophobia] 08-22-2023 Chronic Cardiac dysrhythmias (1 source) Supraventricular tachycardia; Translations: [Supraventricular tachycardia] 12-04-2024 Chronic Cardiac dysrhythmias (11 sources) Sinus tachycardia; Translations: [Tachycardia, unspecified] 03-08-2023 Episodic Coronary atherosclerosis and other heart disease (6 sources) Coronary arteriosclerosis; Translations: [Atherosclerotic heart disease of [place] coronary artery without angina pectoris] Onset: 0 11-13-2019 Chronic Deficiency and other anemia (1 source) Anemia, unspecified; Translations: [Anemia, unspecified] Onset: 5 Episodic Deficiency and other anemia (2 sources) Anemia; Translations: [Anemia, unspecified] 10-20-2024 Episodic Diabetes mellitus without complication (9 sources) Acute hyperglycemia; Translations: [Hyperglycemia, unspecified] 03-08-2023 Episodic Diseases of white blood cells (5 sources) Elevated white blood cell count, unspecified; Translations: [Leukocytosis] Onset: 4 09-02-2024 Chronic Disorders of lipid metabolism (1 source) Hyperlipidemia; Translations: [Hyperlipidemia, unspecified] 07-18-2024 Chronic Epilepsy; convulsions (15 sources) Seizure; Translations: [Unspecified convulsions] 08-22-2023 Episodic Esophageal disorders (5 sources) Perforation of esophagus; Translations: [Perforation of esophagus] Onset: 3 04-07-2023 Episodic Essential hypertension (7 sources) Hypertensive disorder; Translations: [Essential (primary) hypertension] Onset: 3 09-19-2021 Chronic Fluid and electrolyte disorders (20 sources) Dehydration; Translations: [Dehydration] Onset: 5 11-11-2022 Episodic Fracture of lower limb (1 source) Closed fracture of metatarsal bone; Translations: [Other physeal fracture of unspecified metatarsal, initial encounter for closed fracture] Onset: 2 Episodic Gastritis and duodenitis (1 source) Gastritis; Translations: [Gastritis, unspecified, without bleeding] 07-18-2024 Episodic Gastrointestinal hemorrhage (4 sources) Upper gastrointestinal bleeding; Translations: [Gastrointestinal hemorrhage, unspecified] 10-24-2024 Episodic Malaise and fatigue (3 sources) Other fatigue; Translations: [Fatigue] Onset: 5 08-14-2024 Episodic Nausea and vomiting (20 sources) Nausea and vomiting; Translations: [Nausea with vomiting, unspecified] Onset: 5 11-17-2022 Episodic Nonspecific chest pain (3 sources) Chest pain; Translations: [Chest pain, unspecified] Onset: 5 10-11-2024 Episodic Nutritional deficiencies (12 sources) Cobalamin deficiency; Translations: [Deficiency of other specified B group vitamins] Onset: 5 12-17-2023 Episodic Other aftercare (1 source) Long-term current use of drug therapy; Translations: [assisted (current) use of antithrombotics/antipl atelets] 11-10-2024 Episodic Other circulatory disease (1 source) Elevated blood-pressure reading without diagnosis of hypertension; Translations: [Elevated blood-pressure reading, without diagnosis of hypertension] 11-10-2024 Episodic Other diseases of kidney and ureters (12 sources) Cyst of kidney; Translations: [Cyst of kidney, acquired] 12-06-2022 Episodic Other diseases of kidney and ureters (1 source) Acute renal insufficiency; Translations: [Disorder of kidney and ureter, unspecified] 12-04-2024 Episodic Other disorders of stomach and duodenum (20 sources) Cyclical vomiting syndrome; Translations: [Cyclical vomiting syndrome unrelated to migraine] Onset: 3 Episodic Other ear and sense organ disorders (8 sources) Hearing loss; Translations: [Unspecified hearing loss, unspecified ear] 08-22-2023 Chronic Other ear and sense organ disorders (7 sources) Unspecified hearing loss, unspecified ear; Translations: [Unspecified hearing loss] 08-22-2023 Chronic Other hereditary and degenerative nervous system conditions (9 sources) Impaired cognition; Translations: [Mild cognitive impairment, so stated] 08-22-2023 Chronic Other hereditary and degenerative nervous system conditions (7 sources) Mild cognitive impairment, so stated; Translations: [Mild cognitive impairment, so stated] 08-22-2023 Chronic Other screening for suspected conditions (not mental disorders or infectious disease) (2 sources) Encounter for screening for malignant neoplasm of colon; Translations: [Encounter for screening for malignant neoplasm of colon] Onset: 3 Episodic Pleurisy; pneumothorax; pulmonary collapse (5 sources) Mediastinal emphysema; Translations: [Interstitial emphysema] Onset: 3 04-07-2023 Episodic Residual codes; unclassified (7 sources) History of clinical finding in subject; Translations: [Personal history of other specified conditions] 08-22-2023 Episodic Residual codes; unclassified (1 source) Personal history of other specified conditions; Translations: [History of seizure] 01-26-2024 Episodic Spondylosis; intervertebral disc disorders; other back problems (1 source) Lumbar spondylosis; Translations: [Spondylosis without myelopathy or radiculopathy, lumbar region] Onset: 4 10-20-2013 Chronic Substance-related disorders (5 sources) Cannabis abuse; Translations: [Cannabis abuse, uncomplicated] Onset: 0 11-13-2019 Chronic Unclassified (2 sources) BOERHAAVE'S SYNDROME 04-06-2023 Comment on above: BOERHAAVE'S SYNDROME Unclassified (1 source) Esophageal perforation 04-07-2023 Unclassified (1 source) Acidosis, unspecified; Translations: [Acidosis, unspecified] Onset: 5 Unclassified (2 sources) Cyclical vomiting syndrome unrelated to migraine; Translations: [Cyclical vomiting syndrome unrelated to migraine] Onset: 4 Past or Other Problems Problem Classification Problem Date Documented Da te Episodic/Chronic Other non-traumatic joint disorders (1 source) Pain in right hip joint; Translations: [Pain in right hip] Onset: 10-20-2013 10-20-2013 Episodic Residual codes; unclassified (1 source) Family history of malignant neoplasm of kidney; Translations: [Family history of malignant neoplasm of kidney] Onset: 10-24-2016 10-24-2016 Episodic Residual codes; unclassified (1 source) Altered mental status; Translations: [Altered mental status, unspecified] Onset: 02-19-2017 02-19-2017 Episodic Spondylosis; intervertebral disc disorders; other back problems (1 source) Low back pain; Translations: [Low back pain] Onset: 10-20-2013 Episodic Results Test Name Value Interpretation Reference Range Facility ALP [Catalytic activity/Vol] Ordered By: Romero Harrington on 12-04-2024 Serum or plasma alkaline phosphatase measurement 54 U/L 40-129 [facility] ALT [Catalytic activity/Vol] Ordered By: Romero Harrington on 12-04-2024 Serum or plasma alanine aminotransferase (ALT) measurement 12 U/L <47 [facility] Abdomen/Pelvis without Conto n 12-04-2024 Abdomen/Pelvis without Cont Normal [facility] Absolute neutrophil countOrd ered By: Romero Harrington on 12-04-2024 Absolute neutrophil count 17.9 X10^3/uL High 2.0-7.7 [facility] Albumin [Mass/Vol]Ordered By : Romero Harrington on 12-04-2024 Serum or plasma albumin measurement (mass/volume) 4.8 g/dL 3.4-4.8 [facility] Albumin/Globulin [Mass ratio ]Ordered By: Romero Harrington on 12-04-2024 Serum or plasma albumin/globulin mass ratio 1.6 RATIO 0.9-2.4 [facility] Anion gap [Moles/Vol]Ordered By: Romero Harrington on 12-04-2024 Anion gap in Serum or Plasma 22 High 5-15 [facility] BUN/creatinine ratioOrdered By: Romero Harrington on 12-04-2024 BUN/creatinine ratio 9.5 RATIO Low 10-20 [facility] Basophil percentageOrdered B y: Romero Harrington on 12-04-2024 Basophil percentage 0.1 % 0-1 [facility] Bilirubin, totalOrdered By: Romero Harrington on 12-04-2024 Bilirubin, total 0.35 mg/dL 0.00-1.30 [facility] CBC W/Diff, Automatedon 11-22 Absolute Lymph 0.65 X10 3/uL Low 0.83-4.51 [facility] Comment on above: Performed By: #### L 100.0100, L500.4050, L501.2450 ####[facility] [address] [place], [address] Absolute Neut 17.9 X10 3/uL High 2.0-7.7 [facility] Comment on above: Performed By: #### L 100.0100, L500.4050, L501.2450 ####[facility] [address] [place], [address] Basophils/100 WBC (Bld) 0.1 % Normal 0-1 [facility] Comment on above: Performed By: #### L 100.0100, L500.4050, [id number] ####[facility] [address] [place], [address] Eosinophils/100 WBC (Bld) 0.3 % Normal 0-5 [facility] Comment on above: Performed By: #### L 100.0100, L500.4050, [id number] ####[facility] [address] [place], [address] Erythrocyte distribution width (RBC) [Ratio] 15.2 % High 11.6-14.6 [facility] Comment on above: Performed By: #### L 100.0100, L500.4050, [id number] ####[facility] [address] [place], [address] Hematocrit (Bld) [Volume fraction] 32.7 % Low 40-54 [facility] Comment on above: Performed By: #### L 100.0100, L500.4050, L501.2450 ####[facility] [address] [place], [address] Hemoglobin (Bld) [Mass/Vol] 10.9 g/dL Low 13.0-16.5 [facility] Comment on above: Performed By: #### L 100.0100, L500.4050, L501.2450 ####[facility] [address] [place], [address] IG% 0.800 Normal 0.0-0.9 [facility] Comment on above: Result Comment: IG% - Immature Granulocytes (promyelocytes, myelocytes andmetamyelocytes) > 1% indicates that a LEFT SHIFT is Present. Performed By: #### L 100.0100, L500.4050, L501.2450 ####[facility] [address] [place], [address] Lymphocytes/100 WBC (Bld) 3.2 % Low 19-41 [facility] Comment on above: Performed By: #### L 100.0100, L500.4050, [id number] ####[facility] [address] [place], [address] MCH (RBC) [Entitic mass] 27.4 pg Normal 27.0-32.0 [facility] Comment on above: Performed By: #### L 100.0100, L500.4050, L501.2450 ####[facility] [address] [place], [address] MCHC (RBC) [Mass/Vol] 33.3 g/dL Normal 32-36 [facility] Comment on above: Performed By: #### L 100.0100, L500.4050, [id number] ####[facility] [address] [place], [address] MCV (RBC) [Entitic vol] 82.2 fL Normal 80-94 [facility] Comment on above: Performed By: #### L 100.0100, L500.4050, [id number] ####[facility] [address] [place], [address] Monocytes/100 WBC (Bld) 7.1 % Normal 0-10 [facility] Comment on above: Performed By: #### L 100.0100, L500.4050, [id number] ####[facility] [address] [place], [address] Neutrophils/100 WBC (Bld) 88.5 % High 47-70 [facility] Comment on above: Performed By: #### L 100.0100, L500.4050, [id number] ####[facility] [address] [place], [address] Nucleated RBC (Bld) [#/Vol] 0 10*3/uL Normal 0-5 [facility] Comment on above: Performed By: #### L 100.0100, L500.4050, [id number] ####[facility] [address] [place], [address] Platelet mean volume (Bld) [Entitic vol] 9.7 fL Normal 6.2-12.0 [facility] Comment on above: Performed By: #### L 100.0100, L500.4050, L501.2450 ####[facility] [address] [place], [address] Platelets (Bld) [#/Vol] 523 10*3/uL High 150-450 [facility] Comment on above: Performed By: #### L 100.0100, L500.4050, [id number] ####[facility] [address] [place], [address] RBC (Bld) [#/Vol] 3.98 10*6/uL Low 4.6-6.2 [facility] Comment on above: Performed By: #### L 100.0100, L500.4050, L501.2450 ####[facility] [address] [place], [address] RDW SD 46.0 fl High 35.1-43.9 [facility] Comment on above: Performed By: #### L 100.0100, L500.4050, [id number] ####[facility] [address] [place], [address] WBC (Bld) [#/Vol] 20.2 10*3/uL High 4.4-11.0 [facility] Comment on above: Performed By: #### L 100.0100, L500.4050, [id number] ####[facility] [address] [place], [address] Calcium [Mass/Vol]Ordered By : Romero Harrington on 12-04-2024 Serum or plasma calcium measurement (mass/volume) 11.5 mg/dL High 7.6-11.0 [facility] Carbon dioxide, total [Moles /volume] in Central venous bloodOrdered By: Romero Harrington on 12-04-2024 Carbon dioxide, total [Moles/volume] in Central venous blood 18.1 mmol/L Low 21.0-32.0 [facility] Chloride assayOrdered By: Butch Harrington on 12-04-2024 Chloride assay 102 mmol/L 98-108 [facility] Comprehensive Metabolic Prof ilon 12-04-2024 Albumin [Mass/Vol] 4.8 g/dL Normal 3.4-4.8 [facility] Comment on above: Performed By: #### L 100.0100, L500.4050, [id number] ####[facility] [address] [place], [address] Albumin/Globulin [Mass ratio] 1.6 {ratio} Normal 0.9-2.4 [facility] Comment on above: Performed By: #### L 100.0100, L500.4050, L501.2450 ####[facility] [address] [place], [address] ALK PHOS 54 U/L Normal 40-129 [facility] Comment on above: Performed By: #### L 100.0100, L500.4050, [id number] ####[facility] [address] [place], [address] ALT [Catalytic activity/Vol] 12 U/L Normal <=46 [facility] Comment on above: Performed By: #### L 100.0100, L500.4050, [id number] ####[facility] [address] [place], [address] AST [Catalytic activity/Vol] 30 U/L Normal <=37 [facility] Comment on above: Performed By: #### L 100.0100, L500.4050, [id number] ####[facility] [address] [place], [address] Bilirubin [Mass/Vol] 0.35 mg/dL Normal 0.00-1.30 [facility] Comment on above: Performed By: #### L 100.0100, L500.4050, [id number] ####[facility] [address] [place], [address] BUN/CRE 9.5 RATIO Low 10-20 [facility] Comment on above: Performed By: #### L 100.0100, L500.4050, [id number] ####[facility] [address] [place], [address] Calcium [Mass/Vol] 11.5 mg/dL High 7.6-11.0 [facility] Comment on above: Performed By: #### L 100.0100, L500.4050, [id number] ####[facility] [address] [place], [address] Chloride [Moles/Vol] 102 mmol/L Normal 98-108 [facility] Comment on above: Performed By: #### L 100.0100, L500.4050, [id number] ####[facility] [address] [place], [address] CO2 [Moles/Vol] 18.1 mmol/L Low 21.0-32.0 [facility] Comment on above: Performed By: #### L 100.0100, L500.4050, [id number] ####[facility] [address] [place], [address] Creatinine [Mass/Vol] 1.73 mg/dL High 0.70-1.20 [facility] Comment on above: Performed By: #### L 100.0100, L500.4050, [id number] ####[facility] [address] [place], [address] ECRCL 43.37 ml/min Low 50-250 [facility] Comment on above: Performed By: #### L 100.0100, L500.4050, [id number] ####[facility] [address] [place], [address] GAP 22 High 5-15 [facility] Comment on above: Performed By: #### L 100.0100, L500.4050, [id number] ####[facility] [address] [place], [address] GFR/1.73 sq M.predicted among non-blacks MDRD (S/P/Bld) [Vol rate/Area] 43 mL/min/{1.73_m2} Low >60 [facility] Comment on above: Result Comment: mL/m in/1.73m2 CKD-EPI Creatinine Equation (2020) Performed By: #### L 100.0100, L500.4050, L501.2450 ####[facility] [address] [place], [address] Globulin (S) [Mass/Vol] 3.1 g/dL Normal 2.2-4.2 [facility] Comment on above: Performed By: #### L 100.0100, L500.4050, L501.2450 ####[facility] [address] [place], [address] Glucose [Mass/Vol] 149 mg/dL High 70-99 [facility] Comment on above: Performed By: #### L 100.0100, L500.4050, L501.2450 ####[facility] [address] [place], [address] Potassium [Moles/Vol] 3.7 mmol/L Normal 3.3-5.1 [facility] Comment on above: Performed By: #### L 100.0100, L500.4050, L501.2450 ####[facility] [address] [place], [address] Sodium [Moles/Vol] 143 mmol/L Normal 133-145 [facility] Comment on above: Performed By: #### L 100.0100, L500.4050, L501.2450 ####[facility] [address] [place], [address] T PROT 7.8 g/dL Normal 5.9-8.4 [facility] Comment on above: Performed By: #### L 100.0100, L500.4050, L501.2450 ####[facility] [address] [place], [address] Urea nitrogen [Mass/Vol] 16 mg/dL Normal 4-19 [facility] Comment on above: Performed By: #### L 100.0100, L500.4050, L501.2450 ####[facility] [address] [place], [address] Creatinine [Mass/Vol]Ordered By: Romero Harrington on 12-04-2024 Serum creatinine measurement (mass/volume) 1.73 mg/dL High 0.70-1.20 [facility] Emergency Department Summary on 12-04-2024 Emergency Department Summary Normal [facility] Eosinophil percentageOrdered By: Romero Harrington on 12-04-2024 Eosinophil percentage 0.3 % 0-5 [facility] Erythrocyte distribution wid th (RBC) [Entitic vol]Ordered By: Romero Harrington on 12-04-2024 Erythrocyte distribution width standard deviation 46.0 fl High 35.1-43.9 [facility] Erythrocyte distribution wid th (RBC) [Ratio]Ordered By: Romero Harrington on 12-04-2024 Erythrocyte distribution width ratio 15.2 % High 11.6-14.6 [facility] Estimation of creatinine deion aranceOrdered By: Romero Harrington on 12-04-2024 Estimation of creatinine clearance 43.37 ml/min Low 50-250 [facility] GFR/1.73 sq M.predicted raegan g non-blacks MDRD (S/P/Bld) [Vol rate/Area]Ordered By: Romero Harrington on 12-04-2024 Glomerular filtration rate (GFR) estimation/1.73 sq m using serum, plasma, or whole b 43 Low >60 [facility] Glucose [Mass/Vol]Ordered By : Romero Harrington on 12-04-2024 Serum glucose measurement (mass/volume) 149 mg/dL High 70-99 [facility] Hematocrit Auto (Bld) [Volum e fraction]Ordered By: Romero Harrington on 12-04-2024 Automated blood hematocrit (percentage) 32.7 % Low 40-54 [facility] Hemoglobin measurementOrdere d By: Romero Harrington on 12-04-2024 Hemoglobin measurement 10.9 g/dL Low 13.0-16.5 [facility] Immature granulocytes/100 WB C Auto (Bld)Ordered By: Romero Harrington on 12-04-2024 Automated immature granulocyte percentage 0.800 % 0.0-0.9 [facility] Lipaseon 12-04-2024 Lipase [Catalytic activity/Vol] 26 U/L Normal 13-75 [facility] Comment on above: Result Comment: Edilberto conn note:LIPASE revised reference range effective 23.New Lipase methodology. Expected to produce lower valuesthan the previous assay method.NEW Reference Range: 13 - 75 U/L Performed By: #### L 100.0100, L500.4050, L501.2450 ####[facility] [address] [place], [address] Lipase measurementOrdered By : Romero Harrington on 12-04-2024 Lipase measurement 26 U/L 13-75 [facility] Lymphocytes Auto (Unsp spec) [#/Vol]Ordered By: Romero Harrington on 12-04-2024 Absolute lymphocyte count 0.65 X10^3/uL Low 0.83-4.51 [facility] Lymphocytes/100 WBC Auto (Un sp spec)Ordered By: Romero Harrington on 12-04-2024 Automated lymphocyte count as percentage of total leukocytes 3.2 % Low 19-41 [facility] MCV (RBC) [Entitic vol]Order ed By: Romero Harrington on 12-04-2024 MCV (mean corpuscular volume) determination 82.2 fL 80-94 [facility] Mean corpuscular hemoglobin (MCH) determinationOrdered By: Romero Harrington on 12-04-2024 Mean corpuscular hemoglobin (MCH) determination 27.4 pg 27.0-32.0 [facility] Mean corpuscular hemoglobin concentration (MCHC) determinationOrdered By: Romero Harrington on 12-04-2024 Mean corpuscular hemoglobin concentration (MCHC) determination 33.3 g/dL 32-36 [facility] Mean platelet volume determi nationOrdered By: Romero Harrington on 12-04-2024 Mean platelet volume determination 9.7 fl 6.2-12.0 [facility] Monocyte percentageOrdered B y: Romero Harrington on 12-04-2024 Monocyte percentage 7.1 % 0-10 [facility] Neutrophil percentageOrdered By: Romero Harrington on 12-04-2024 Neutrophil percentage 88.5 % High 47-70 [facility] No Panel InformationOrdered By: Romero Harrington on 12-04-2024 30 U/L <38 [facility] Nucleated red blood cell per centageOrdered By: Romero Harrington on 12-04-2024 Nucleated red blood cell percentage 0 % 0-5 [facility] Platelet countOrdered By: Butch Harrington on 12-04-2024 Platelet count 523 K/mm3 High 150-450 [facility] Potassium (Unsp spec) [Mass/ Vol]Ordered By: Romero Harrington on 12-04-2024 Potassium measurement (mass/volume) 3.7 mmol/L 3.3-5.1 [facility] RBC Auto (Bld) [#/Vol]Ordere d By: Romero Harrington on 12-04-2024 Automated blood erythrocyte count 3.98 M/mm3 Low 4.6-6.2 [facility] Serum globulin measurementOr dered By: Romero Harrington on 12-04-2024 Serum globulin measurement 3.1 g/dL 2.2-4.2 [facility] Sodium levelOrdered By: Romero Harrington on 12-04-2024 Sodium level 143 mmol/L 133-145 [facility] Total proteinOrdered By: Duncan Harrington on 12-04-2024 Total protein 7.8 g/dL 5.9-8.4 [facility] Urea nitrogen [Mass/Vol]Orde red By: Romero Harrington on 12-04-2024 Serum or plasma urea nitrogen measurement (mass/volume) 16 mg/dL 4-19 [facility] White blood cell (WBC) count Ordered By: Romero Harrington on 12-04-2024 White blood cell (WBC) count 20.2 K/mm3 High 4.4-11.0 [facility] Basic Metabolic Profile (BMP )on 11-20-2024 BUN Normal 7-18 [facility] Comment on above: Result Comment: Canc elled via OM: Order cancelled - Patient discharged Performed By: #### L 500.2500, L100.0100 ####[facility] [address] [place], [address] BUN/CRE Normal 10-20 [facility] Comment on above: Result Comment: Canc elled via OM: Order cancelled - Patient discharged Performed By: #### L 500.2500, L100.0100 ####[facility] [address] [place], [address] CA,Total Normal 8.5-10.1 [facility] Comment on above: Result Comment: Canc elled via OM: Order cancelled - Patient discharged Performed By: #### L 500.2500, L100.0100 ####[facility] [address] [place], [address] CL Normal 98-107 [facility] Comment on above: Result Comment: Canc elled via OM: Order cancelled - Patient discharged Performed By: #### L 500.2500, L100.0100 ####[facility] [address] [place], [address] CO2 Normal 21.0-32.0 [facility] Comment on above: Result Comment: Canc elled via OM: Order cancelled - Patient discharged Performed By: #### L 500.2500, L100.0100 ####[facility] [address] [place], [address] CREAT,SERUM Normal 0.70-1.30 [facility] Comment on above: Result Comment: Canc elled via OM: Order cancelled - Patient discharged Performed By: #### L 500.2500, L100.0100 ####[facility] [address] [place], [address] EST GFR Normal >60 [facility] Comment on above: Result Comment: Canc elled via OM: Order cancelled - Patient discharged Performed By: #### L 500.2500, L100.0100 ####[facility] [address] [place], [address] EST GFR - AA Normal >60 [facility] Comment on above: Result Comment: Canc elled via OM: Order cancelled - Patient discharged Performed By: #### L 500.2500, L100.0100 ####[facility] [address] [place], [address] GAP Normal 5-15 [facility] Comment on above: Result Comment: Canc elled via OM: Order cancelled - Patient discharged Performed By: #### L 500.2500, L100.0100 ####[facility] [address] [place], [address] GLU Normal 74-106 [facility] Comment on above: Result Comment: Canc elled via OM: Order cancelled - Patient discharged Performed By: #### L 500.2500, L100.0100 ####[facility] [address] [place], [address] Potassium Normal 3.5-5.1 [facility] Comment on above: Result Comment: Canc elled via OM: Order cancelled - Patient discharged Performed By: #### L 500.2500, L100.0100 ####[facility] [address] [place], [address] Basic Metabolic Profile (BMP) Normal 136-145 [facility] Comment on above: Result Comment: Canc elled via OM: Order cancelled - Patient discharged Performed By: #### L 500.2500, L100.0100 ####[facility] [address] [place], [address] CBC W/Diff, Automatedon 02-2 Absolute Neut Normal 2.0-7.7 [facility] Comment on above: Result Comment: Canc elled via OM: Order cancelled - Patient discharged Performed By: #### L 500.2500, L100.0100 ####[facility] [address] [place], [address] HCT Normal 40-54 [facility] Comment on above: Result Comment: Canc elled via OM: Order cancelled - Patient discharged Performed By: #### L 500.2500, L100.0100 ####[facility] [address] [place], [address] HGB Normal 13.0-16.5 [facility] Comment on above: Result Comment: Canc elled via OM: Order cancelled - Patient discharged Performed By: #### L 500.2500, L100.0100 ####[facility] [address] [place], [address] MCH Normal 27.0-32.0 [facility] Comment on above: Result Comment: Canc elled via OM: Order cancelled - Patient discharged Performed By: #### L 500.2500, L100.0100 ####[facility] [address] [place], [address] MCHC Normal 32-36 [facility] Comment on above: Result Comment: Canc elled via OM: Order cancelled - Patient discharged Performed By: #### L 500.2500, L100.0100 ####[facility] [address] [place], [address] MCV Normal 80-94 [facility] Comment on above: Result Comment: Canc elled via OM: Order cancelled - Patient discharged Performed By: #### L 500.2500, L100.0100 ####[facility] [address] [place], [address] NEUT% Normal 47-70 [facility] Comment on above: Result Comment: Canc elled via OM: Order cancelled - Patient discharged Performed By: #### L 500.2500, L100.0100 ####[facility] [address] [place], [address] PLT Normal 150-450 [facility] Comment on above: Result Comment: Canc elled via OM: Order cancelled - Patient discharged Performed By: #### L 500.2500, L100.0100 ####[facility] [address] [place], [address] RBC Normal 4.6-6.2 [facility] Comment on above: Result Comment: Canc elled via OM: Order cancelled - Patient discharged Performed By: #### L 500.2500, L100.0100 ####[facility] [address] [place], [address] RDW CV Normal 11.6-14.6 [facility] Comment on above: Result Comment: Canc elled via OM: Order cancelled - Patient discharged Performed By: #### L 500.2500, L100.0100 ####[facility] [address] [place], [address] RDW SD Normal 35.1-43.9 [facility] Comment on above: Result Comment: Canc elled via OM: Order cancelled - Patient discharged Performed By: #### L 500.2500, L100.0100 ####[facility] [address] [place], [address] WBC Normal 4.4-11.0 [facility] Comment on above: Result Comment: Canc elled via OM: Order cancelled - Patient discharged Performed By: #### L 500.2500, L100.0100 ####[facility] [address] [place], [address] Basic Metabolic Profile (BMP )on 11-19-2024 BUN Normal 7-18 [facility] Comment on above: Result Comment: Canc elled via OM: Order cancelled - Patient discharged Performed By: #### L 500.2500, L100.0100 ####[facility] [address] [place], [address] BUN/CRE Normal 10-20 [facility] Comment on above: Result Comment: Canc elled via OM: Order cancelled - Patient discharged Performed By: #### L 500.2500, L100.0100 ####[facility] [address] [place], [address] CA,Total Normal 8.5-10.1 [facility] Comment on above: Result Comment: Canc elled via OM: Order cancelled - Patient discharged Performed By: #### L 500.2500, L100.0100 ####[facility] [address] [place], [address] CL Normal 98-107 [facility] Comment on above: Result Comment: Canc elled via OM: Order cancelled - Patient discharged Performed By: #### L 500.2500, L100.0100 ####[facility] [address] [place], [address] CO2 Normal 21.0-32.0 [facility] Comment on above: Result Comment: Canc elled via OM: Order cancelled - Patient discharged Performed By: #### L 500.2500, L100.0100 ####[facility] [address] [place], [address] CREAT,SERUM Normal 0.70-1.30 [facility] Comment on above: Result Comment: Canc elled via OM: Order cancelled - Patient discharged Performed By: #### L 500.2500, L100.0100 ####[facility] [address] [place], [address] EST GFR Normal >60 [facility] Comment on above: Result Comment: Canc elled via OM: Order cancelled - Patient discharged Performed By: #### L 500.2500, L100.0100 ####[facility] [address] [place], [address] EST GFR - AA Normal >60 [facility] Comment on above: Result Comment: Canc elled via OM: Order cancelled - Patient discharged Performed By: #### L 500.2500, L100.0100 ####[facility] [address] [place], [address] GAP Normal 5-15 [facility] Comment on above: Result Comment: Canc elled via OM: Order cancelled - Patient discharged Performed By: #### L 500.2500, L100.0100 ####[facility] [address] [place], [address] GLU Normal 74-106 [facility] Comment on above: Result Comment: Canc elled via OM: Order cancelled - Patient discharged Performed By: #### L 500.2500, L100.0100 ####[facility] [address] [place], [address] Potassium Normal 3.5-5.1 [facility] Comment on above: Result Comment: Canc elled via OM: Order cancelled - Patient discharged Performed By: #### L 500.2500, L100.0100 ####[facility] [address] [place], [address] Basic Metabolic Profile (BMP) Normal 136-145 [facility] Comment on above: Result Comment: Canc elled via OM: Order cancelled - Patient discharged Performed By: #### L 500.2500, L100.0100 ####[facility] [address] [place], [address] CBC W/Diff, Automatedon 02-2 6-2025 Absolute Neut Normal 2.0-7.7 [facility] Comment on above: Result Comment: Canc elled via OM: Order cancelled - Patient discharged Performed By: #### L 500.2500, L100.0100 ####[facility] [address] [place], [address] HCT Normal 40-54 [facility] Comment on above: Result Comment: Canc elled via OM: Order cancelled - Patient discharged Performed By: #### L 500.2500, L100.0100 ####[facility] [address] [place], [address] HGB Normal 13.0-16.5 [facility] Comment on above: Result Comment: Canc elled via OM: Order cancelled - Patient discharged Performed By: #### L 500.2500, L100.0100 ####[facility] [address] [place], [address] MCH Normal 27.0-32.0 [facility] Comment on above: Result Comment: Canc elled via OM: Order cancelled - Patient discharged Performed By: #### L 500.2500, L100.0100 ####[facility] [address] [place], [address] MCHC Normal 32-36 [facility] Comment on above: Result Comment: Canc elled via OM: Order cancelled - Patient discharged Performed By: #### L 500.2500, L100.0100 ####[facility] [address] [place], [address] MCV Normal 80-94 [facility] Comment on above: Result Comment: Canc elled via OM: Order cancelled - Patient discharged Performed By: #### L 500.2500, L100.0100 ####[facility] [address] [place], [address] NEUT% Normal 47-70 [facility] Comment on above: Result Comment: Canc elled via OM: Order cancelled - Patient discharged Performed By: #### L 500.2500, L100.0100 ####[facility] [address] [place], [address] PLT Normal 150-450 [facility] Comment on above: Result Comment: Canc elled via OM: Order cancelled - Patient discharged Performed By: #### L 500.2500, L100.0100 ####[facility] [address] [place], [address] RBC Normal 4.6-6.2 [facility] Comment on above: Result Comment: Canc elled via OM: Order cancelled - Patient discharged Performed By: #### L 500.2500, L100.0100 ####[facility] [address] [place], [address] RDW CV Normal 11.6-14.6 [facility] Comment on above: Result Comment: Canc elled via OM: Order cancelled - Patient discharged Performed By: #### L 500.2500, L100.0100 ####[facility] [address] [place], [address] RDW SD Normal 35.1-43.9 [facility] Comment on above: Result Comment: Canc elled via OM: Order cancelled - Patient discharged Performed By: #### L 500.2500, L100.0100 ####[facility] [address] [place], [address] WBC Normal 4.4-11.0 [facility] Comment on above: Result Comment: Canc elled via OM: Order cancelled - Patient discharged Performed By: #### L 500.2500, L100.0100 ####[facility] [address] [place], [address] Basic Metabolic Profile (BMP )on 11-18-2024 BUN Normal 7-18 [facility] Comment on above: Result Comment: Canc elled via OM: Order cancelled - Patient discharged Performed By: #### L 500.2500, L100.0100 ####[facility] [address] [place], [address] BUN/CRE Normal 10-20 [facility] Comment on above: Result Comment: Canc elled via OM: Order cancelled - Patient discharged Performed By: #### L 500.2500, L100.0100 ####[facility] [address] [place], [address] CA,Total Normal 8.5-10.1 [facility] Comment on above: Result Comment: Canc elled via OM: Order cancelled - Patient discharged Performed By: #### L 500.2500, L100.0100 ####[facility] [address] [place], [address] CL Normal 98-107 [facility] Comment on above: Result Comment: Canc elled via OM: Order cancelled - Patient discharged Performed By: #### L 500.2500, L100.0100 ####[facility] [address] [place], [address] CO2 Normal 21.0-32.0 [facility] Comment on above: Result Comment: Canc elled via OM: Order cancelled - Patient discharged Performed By: #### L 500.2500, L100.0100 ####[facility] [address] [place], [address] CREAT,SERUM Normal 0.70-1.30 [facility] Comment on above: Result Comment: Canc elled via OM: Order cancelled - Patient discharged Performed By: #### L 500.2500, L100.0100 ####[facility] [address] [place], [address] EST GFR Normal >60 [facility] Comment on above: Result Comment: Canc elled via OM: Order cancelled - Patient discharged Performed By: #### L 500.2500, L100.0100 ####[facility] [address] [place], [address] EST GFR - AA Normal >60 [facility] Comment on above: Result Comment: Canc elled via OM: Order cancelled - Patient discharged Performed By: #### L 500.2500, L100.0100 ####[facility] [address] [place], [address] GAP Normal 5-15 [facility] Comment on above: Result Comment: Canc elled via OM: Order cancelled - Patient discharged Performed By: #### L 500.2500, L100.0100 ####[facility] [address] [place], [address] GLU Normal 74-106 [facility] Comment on above: Result Comment: Canc elled via OM: Order cancelled - Patient discharged Performed By: #### L 500.2500, L100.0100 ####[facility] [address] [place], [address] Potassium Normal 3.5-5.1 [facility] Comment on above: Result Comment: Canc elled via OM: Order cancelled - Patient discharged Performed By: #### L 500.2500, L100.0100 ####[facility] [address] [place], [address] Basic Metabolic Profile (BMP) Normal 136-145 [facility] Comment on above: Result Comment: Canc elled via OM: Order cancelled - Patient discharged Performed By: #### L 500.2500, L100.0100 ####[facility] [address] [place], [address] CBC W/Diff, Automatedon 02-2 Absolute Neut Normal 2.0-7.7 [facility] Comment on above: Result Comment: Canc elled via OM: Order cancelled - Patient discharged Performed By: #### L 500.2500, L100.0100 ####[facility] [address] [place], [address] HCT Normal 40-54 [facility] Comment on above: Result Comment: Canc elled via OM: Order cancelled - Patient discharged Performed By: #### L 500.2500, L100.0100 ####[facility] [address] [place], [address] HGB Normal 13.0-16.5 [facility] Comment on above: Result Comment: Canc elled via OM: Order cancelled - Patient discharged Performed By: #### L 500.2500, L100.0100 ####[facility] [address] [place], [address] MCH Normal 27.0-32.0 [facility] Comment on above: Result Comment: Canc elled via OM: Order cancelled - Patient discharged Performed By: #### L 500.2500, L100.0100 ####[facility] [address] [place], [address] MCHC Normal 32-36 [facility] Comment on above: Result Comment: Canc elled via OM: Order cancelled - Patient discharged Performed By: #### L 500.2500, L100.0100 ####[facility] [address] [place], [address] MCV Normal 80-94 [facility] Comment on above: Result Comment: Canc elled via OM: Order cancelled - Patient discharged Performed By: #### L 500.2500, L100.0100 ####[facility] [address] [place], [address] NEUT% Normal 47-70 [facility] Comment on above: Result Comment: Canc elled via OM: Order cancelled - Patient discharged Performed By: #### L 500.2500, L100.0100 ####[facility] [address] [place], [address] PLT Normal 150-450 [facility] Comment on above: Result Comment: Canc elled via OM: Order cancelled - Patient discharged Performed By: #### L 500.2500, L100.0100 ####[facility] [address] [place], [address] RBC Normal 4.6-6.2 [facility] Comment on above: Result Comment: Canc elled via OM: Order cancelled - Patient discharged Performed By: #### L 500.2500, L100.0100 ####[facility] [address] [place], [address] RDW CV Normal 11.6-14.6 [facility] Comment on above: Result Comment: Canc elled via OM: Order cancelled - Patient discharged Performed By: #### L 500.2500, L100.0100 ####[facility] [address] [place], [address] RDW SD Normal 35.1-43.9 [facility] Comment on above: Result Comment: Canc elled via OM: Order cancelled - Patient discharged Performed By: #### L 500.2500, L100.0100 ####[facility] [address] [place], [address] WBC Normal 4.4-11.0 [facility] Comment on above: Result Comment: Canc elled via OM: Order cancelled - Patient discharged Performed By: #### L 500.2500, L100.0100 ####[facility] [address] [place], [address] Basic Metabolic Profile (BMP )on 11-17-2024 BUN Normal 7-18 [facility] Comment on above: Result Comment: Canc elled via OM: Order cancelled - Patient discharged Performed By: #### L 500.2500, L100.0100 ####[facility] [address] [place], [address] BUN/CRE Normal 10-20 [facility] Comment on above: Result Comment: Canc elled via OM: Order cancelled - Patient discharged Performed By: #### L 500.2500, L100.0100 ####[facility] [address] [place], [address] CA,Total Normal 8.5-10.1 [facility] Comment on above: Result Comment: Canc elled via OM: Order cancelled - Patient discharged Performed By: #### L 500.2500, L100.0100 ####[facility] [address] [place], [address] CL Normal 98-107 [facility] Comment on above: Result Comment: Canc elled via OM: Order cancelled - Patient discharged Performed By: #### L 500.2500, L100.0100 ####[facility] [address] [place], [address] CO2 Normal 21.0-32.0 [facility] Comment on above: Result Comment: Canc elled via OM: Order cancelled - Patient discharged Performed By: #### L 500.2500, L100.0100 ####[facility] [address] [place], [address] CREAT,SERUM Normal 0.70-1.30 [facility] Comment on above: Result Comment: Canc elled via OM: Order cancelled - Patient discharged Performed By: #### L 500.2500, L100.0100 ####[facility] [address] [place], [address] EST GFR Normal >60 [facility] Comment on above: Result Comment: Canc elled via OM: Order cancelled - Patient discharged Performed By: #### L 500.2500, L100.0100 ####[facility] [address] [place], [address] EST GFR - AA Normal >60 [facility] Comment on above: Result Comment: Canc elled via OM: Order cancelled - Patient discharged Performed By: #### L 500.2500, L100.0100 ####[facility] [address] [place], [address] GAP Normal 5-15 [facility] Comment on above: Result Comment: Canc elled via OM: Order cancelled - Patient discharged Performed By: #### L 500.2500, L100.0100 ####[facility] [address] [place], [address] GLU Normal 74-106 [facility] Comment on above: Result Comment: Canc elled via OM: Order cancelled - Patient discharged Performed By: #### L 500.2500, L100.0100 ####[facility] [address] [place], [address] Potassium Normal 3.5-5.1 [facility] Comment on above: Result Comment: Canc elled via OM: Order cancelled - Patient discharged Performed By: #### L 500.2500, L100.0100 ####[facility] [address] [place], [address] Basic Metabolic Profile (BMP) Normal 136-145 [facility] Comment on above: Result Comment: Canc elled via OM: Order cancelled - Patient discharged Performed By: #### L 500.2500, L100.0100 ####[facility] [address] [place], [address] CBC W/Diff, Automatedon 02-2 Absolute Neut Normal 2.0-7.7 [facility] Comment on above: Result Comment: Canc elled via OM: Order cancelled - Patient discharged Performed By: #### L 500.2500, L100.0100 ####[facility] [address] [place], [address] HCT Normal 40-54 [facility] Comment on above: Result Comment: Canc elled via OM: Order cancelled - Patient discharged Performed By: #### L 500.2500, L100.0100 ####[facility] [address] [place], [address] HGB Normal 13.0-16.5 [facility] Comment on above: Result Comment: Canc elled via OM: Order cancelled - Patient discharged Performed By: #### L 500.2500, L100.0100 ####[facility] [address] [place], [address] MCH Normal 27.0-32.0 [facility] Comment on above: Result Comment: Canc elled via OM: Order cancelled - Patient discharged Performed By: #### L 500.2500, L100.0100 ####[facility] [address] [place], [address] MCHC Normal 32-36 [facility] Comment on above: Result Comment: Canc elled via OM: Order cancelled - Patient discharged Performed By: #### L 500.2500, L100.0100 ####[facility] [address] [place], [address] MCV Normal 80-94 [facility] Comment on above: Result Comment: Canc elled via OM: Order cancelled - Patient discharged Performed By: #### L 500.2500, L100.0100 ####[facility] [address] [place], [address] NEUT% Normal 47-70 [facility] Comment on above: Result Comment: Canc elled via OM: Order cancelled - Patient discharged Performed By: #### L 500.2500, L100.0100 ####[facility] [address] [place], [address] PLT Normal 150-450 [facility] Comment on above: Result Comment: Canc elled via OM: Order cancelled - Patient discharged Performed By: #### L 500.2500, L100.0100 ####[facility] [address] [place], [address] RBC Normal 4.6-6.2 [facility] Comment on above: Result Comment: Canc elled via OM: Order cancelled - Patient discharged Performed By: #### L 500.2500, L100.0100 ####[facility] [address] [place], [address] RDW CV Normal 11.6-14.6 [facility] Comment on above: Result Comment: Canc elled via OM: Order cancelled - Patient discharged Performed By: #### L 500.2500, L100.0100 ####[facility] [address] [place], [address] RDW SD Normal 35.1-43.9 [facility] Comment on above: Result Comment: Canc elled via OM: Order cancelled - Patient discharged Performed By: #### L 500.2500, L100.0100 ####[facility] [address] [place], [address] WBC Normal 4.4-11.0 [facility] Comment on above: Result Comment: Canc elled via OM: Order cancelled - Patient discharged Performed By: #### L 500.2500, L100.0100 ####[facility] [address] [place], [address] Basic Metabolic Profile (BMP )on 11-16-2024 BUN Normal 7-18 [facility] Comment on above: Result Comment: Canc elled via OM: Order cancelled - Patient discharged Performed By: #### L 500.2500, L100.0100 ####[facility] [address] [place], [address] BUN/CRE Normal 10-20 [facility] Comment on above: Result Comment: Canc elled via OM: Order cancelled - Patient discharged Performed By: #### L 500.2500, L100.0100 ####[facility] [address] [place], [address] CA,Total Normal 8.5-10.1 [facility] Comment on above: Result Comment: Canc elled via OM: Order cancelled - Patient discharged Performed By: #### L 500.2500, L100.0100 ####[facility] [address] [place], [address] CL Normal 98-107 [facility] Comment on above: Result Comment: Canc elled via OM: Order cancelled - Patient discharged Performed By: #### L 500.2500, L100.0100 ####[facility] [address] [place], [address] CO2 Normal 21.0-32.0 [facility] Comment on above: Result Comment: Canc elled via OM: Order cancelled - Patient discharged Performed By: #### L 500.2500, L100.0100 ####[facility] [address] [place], [address] CREAT,SERUM Normal 0.70-1.30 [facility] Comment on above: Result Comment: Canc elled via OM: Order cancelled - Patient discharged Performed By: #### L 500.2500, L100.0100 ####[facility] [address] [place], [address] EST GFR Normal >60 [facility] Comment on above: Result Comment: Canc elled via OM: Order cancelled - Patient discharged Performed By: #### L 500.2500, L100.0100 ####[facility] [address] [place], [address] EST GFR - AA Normal >60 [facility] Comment on above: Result Comment: Canc elled via OM: Order cancelled - Patient discharged Performed By: #### L 500.2500, L100.0100 ####[facility] [address] [place], [address] GAP Normal 5-15 [facility] Comment on above: Result Comment: Canc elled via OM: Order cancelled - Patient discharged Performed By: #### L 500.2500, L100.0100 ####[facility] [address] [place], [address] GLU Normal 74-106 [facility] Comment on above: Result Comment: Canc elled via OM: Order cancelled - Patient discharged Performed By: #### L 500.2500, L100.0100 ####[facility] [address] [place], [address] Potassium Normal 3.5-5.1 [facility] Comment on above: Result Comment: Canc elled via OM: Order cancelled - Patient discharged Performed By: #### L 500.2500, L100.0100 ####[facility] [address] [place], [address] Basic Metabolic Profile (BMP) Normal 136-145 [facility] Comment on above: Result Comment: Canc elled via OM: Order cancelled - Patient discharged Performed By: #### L 500.2500, L100.0100 ####[facility] [address] [place], [address] CBC W/Diff, Automatedon 02-2 Absolute Neut Normal 2.0-7.7 [facility] Comment on above: Result Comment: Canc elled via OM: Order cancelled - Patient discharged Performed By: #### L 500.2500, L100.0100 ####[facility] [address] [place], [address] HCT Normal 40-54 [facility] Comment on above: Result Comment: Canc elled via OM: Order cancelled - Patient discharged Performed By: #### L 500.2500, L100.0100 ####[facility] [address] [place], [address] HGB Normal 13.0-16.5 [facility] Comment on above: Result Comment: Canc elled via OM: Order cancelled - Patient discharged Performed By: #### L 500.2500, L100.0100 ####[facility] [address] [place], [address] MCH Normal 27.0-32.0 [facility] Comment on above: Result Comment: Canc elled via OM: Order cancelled - Patient discharged Performed By: #### L 500.2500, L100.0100 ####[facility] [address] [place], [address] MCHC Normal 32-36 [facility] Comment on above: Result Comment: Canc elled via OM: Order cancelled - Patient discharged Performed By: #### L 500.2500, L100.0100 ####[facility] [address] [place], [address] MCV Normal 80-94 [facility] Comment on above: Result Comment: Canc elled via OM: Order cancelled - Patient discharged Performed By: #### L 500.2500, L100.0100 ####[facility] [address] [place], [address] NEUT% Normal 47-70 [facility] Comment on above: Result Comment: Canc elled via OM: Order cancelled - Patient discharged Performed By: #### L 500.2500, L100.0100 ####[facility] [address] [place], [address] PLT Normal 150-450 [facility] Comment on above: Result Comment: Canc elled via OM: Order cancelled - Patient discharged Performed By: #### L 500.2500, L100.0100 ####[facility] [address] [place], [address] RBC Normal 4.6-6.2 [facility] Comment on above: Result Comment: Canc elled via OM: Order cancelled - Patient discharged Performed By: #### L 500.2500, L100.0100 ####[facility] [address] [place], [address] RDW CV Normal 11.6-14.6 [facility] Comment on above: Result Comment: Canc elled via OM: Order cancelled - Patient discharged Performed By: #### L 500.2500, L100.0100 ####[facility] [address] [place], [address] RDW SD Normal 35.1-43.9 [facility] Comment on above: Result Comment: Canc elled via OM: Order cancelled - Patient discharged Performed By: #### L 500.2500, L100.0100 ####[facility] [address] [place], [address] WBC Normal 4.4-11.0 [facility] Comment on above: Result Comment: Canc elled via OM: Order cancelled - Patient discharged Performed By: #### L 500.2500, L100.0100 ####[facility] [address] [place], [address] Basic Metabolic Profile (BMP )on 11-15-2024 BUN Normal 7-18 [facility] Comment on above: Result Comment: Canc elled via OM: Order cancelled - Patient discharged Performed By: #### L 500.2500, L100.0100 ####[facility] [address] [place], [address] BUN/CRE Normal 10-20 [facility] Comment on above: Result Comment: Canc elled via OM: Order cancelled - Patient discharged Performed By: #### L 500.2500, L100.0100 ####[facility] [address] [place], [address] CA,Total Normal 8.5-10.1 [facility] Comment on above: Result Comment: Canc elled via OM: Order cancelled - Patient discharged Performed By: #### L 500.2500, L100.0100 ####[facility] [address] [place], [address] CL Normal 98-107 [facility] Comment on above: Result Comment: Canc elled via OM: Order cancelled - Patient discharged Performed By: #### L 500.2500, L100.0100 ####[facility] [address] [place], [address] CO2 Normal 21.0-32.0 [facility] Comment on above: Result Comment: Canc elled via OM: Order cancelled - Patient discharged Performed By: #### L 500.2500, L100.0100 ####[facility] [address] [place], [address] CREAT,SERUM Normal 0.70-1.30 [facility] Comment on above: Result Comment: Canc elled via OM: Order cancelled - Patient discharged Performed By: #### L 500.2500, L100.0100 ####[facility] [address] [place], [address] EST GFR Normal >60 [facility] Comment on above: Result Comment: Canc elled via OM: Order cancelled - Patient discharged Performed By: #### L 500.2500, L100.0100 ####[facility] [address] [place], [address] EST GFR - AA Normal >60 [facility] Comment on above: Result Comment: Canc elled via OM: Order cancelled - Patient discharged Performed By: #### L 500.2500, L100.0100 ####[facility] [address] [place], [address] GAP Normal 5-15 [facility] Comment on above: Result Comment: Canc elled via OM: Order cancelled - Patient discharged Performed By: #### L 500.2500, L100.0100 ####[facility] [address] [place], [address] GLU Normal 74-106 [facility] Comment on above: Result Comment: Canc elled via OM: Order cancelled - Patient discharged Performed By: #### L 500.2500, L100.0100 ####[facility] [address] [place], [address] Potassium Normal 3.5-5.1 [facility] Comment on above: Result Comment: Canc elled via OM: Order cancelled - Patient discharged Performed By: #### L 500.2500, L100.0100 ####[facility] [address] [place], [address] Basic Metabolic Profile (BMP) Normal 136-145 [facility] Comment on above: Result Comment: Canc elled via OM: Order cancelled - Patient discharged Performed By: #### L 500.2500, L100.0100 ####[facility] [address] [place], [address] CBC W/Diff, Automatedon 02- Absolute Neut Normal 2.0-7.7 [facility] Comment on above: Result Comment: Canc elled via OM: Order cancelled - Patient discharged Performed By: #### L 500.2500, L100.0100 ####[facility] [address] [place], [address] HCT Normal 40-54 [facility] Comment on above: Result Comment: Canc elled via OM: Order cancelled - Patient discharged Performed By: #### L 500.2500, L100.0100 ####[facility] [address] [place], [address] HGB Normal 13.0-16.5 [facility] Comment on above: Result Comment: Canc elled via OM: Order cancelled - Patient discharged Performed By: #### L 500.2500, L100.0100 ####[facility] [address] [place], [address] MCH Normal 27.0-32.0 [facility] Comment on above: Result Comment: Canc elled via OM: Order cancelled - Patient discharged Performed By: #### L 500.2500, L100.0100 ####[facility] [address] [place], [address] MCHC Normal 32-36 [facility] Comment on above: Result Comment: Canc elled via OM: Order cancelled - Patient discharged Performed By: #### L 500.2500, L100.0100 ####[facility] [address] [place], [address] MCV Normal 80-94 [facility] Comment on above: Result Comment: Canc elled via OM: Order cancelled - Patient discharged Performed By: #### L 500.2500, L100.0100 ####[facility] [address] [place], [address] NEUT% Normal 47-70 [facility] Comment on above: Result Comment: Canc elled via OM: Order cancelled - Patient discharged Performed By: #### L 500.2500, L100.0100 ####[facility] [address] [place], [address] PLT Normal 150-450 [facility] Comment on above: Result Comment: Canc elled via OM: Order cancelled - Patient discharged Performed By: #### L 500.2500, L100.0100 ####[facility] [address] [place], [address] RBC Normal 4.6-6.2 [facility] Comment on above: Result Comment: Canc elled via OM: Order cancelled - Patient discharged Performed By: #### L 500.2500, L100.0100 ####[facility] [address] [place], [address] RDW CV Normal 11.6-14.6 [facility] Comment on above: Result Comment: Canc elled via OM: Order cancelled - Patient discharged Performed By: #### L 500.2500, L100.0100 ####[facility] [address] [place], [address] RDW SD Normal 35.1-43.9 [facility] Comment on above: Result Comment: Canc elled via OM: Order cancelled - Patient discharged Performed By: #### L 500.2500, L100.0100 ####[facility] [address] [place], [address] WBC Normal 4.4-11.0 [facility] Comment on above: Result Comment: Canc elled via OM: Order cancelled - Patient discharged Performed By: #### L 500.2500, L100.0100 ####[facility] [address] [place], [address] Basic Metabolic Profile (BMP )on 11-14-2024 BUN Normal 7-18 [facility] Comment on above: Result Comment: Canc elled via OM: Order cancelled - Patient discharged Performed By: #### L 500.2500, L100.0100 ####[facility] [address] [place], [address] BUN/CRE Normal 10-20 [facility] Comment on above: Result Comment: Canc elled via OM: Order cancelled - Patient discharged Performed By: #### L 500.2500, L100.0100 ####[facility] [address] [place], [address] CA,Total Normal 8.5-10.1 [facility] Comment on above: Result Comment: Canc elled via OM: Order cancelled - Patient discharged Performed By: #### L 500.2500, L100.0100 ####[facility] [address] [place], [address] CL Normal 98-107 [facility] Comment on above: Result Comment: Canc elled via OM: Order cancelled - Patient discharged Performed By: #### L 500.2500, L100.0100 ####[facility] [address] [place], [address] CO2 Normal 21.0-32.0 [facility] Comment on above: Result Comment: Canc elled via OM: Order cancelled - Patient discharged Performed By: #### L 500.2500, L100.0100 ####[facility] [address] [place], [address] CREAT,SERUM Normal 0.70-1.30 [facility] Comment on above: Result Comment: Canc elled via OM: Order cancelled - Patient discharged Performed By: #### L 500.2500, L100.0100 ####[facility] [address] [place], [address] EST GFR Normal >60 [facility] Comment on above: Result Comment: Canc elled via OM: Order cancelled - Patient discharged Performed By: #### L 500.2500, L100.0100 ####[facility] [address] [place], [address] EST GFR - AA Normal >60 [facility] Comment on above: Result Comment: Canc elled via OM: Order cancelled - Patient discharged Performed By: #### L 500.2500, L100.0100 ####[facility] [address] [place], [address] GAP Normal 5-15 [facility] Comment on above: Result Comment: Canc elled via OM: Order cancelled - Patient discharged Performed By: #### L 500.2500, L100.0100 ####[facility] [address] [place], [address] GLU Normal 74-106 [facility] Comment on above: Result Comment: Canc elled via OM: Order cancelled - Patient discharged Performed By: #### L 500.2500, L100.0100 ####[facility] [address] [place], [address] Potassium Normal 3.5-5.1 [facility] Comment on above: Result Comment: Canc elled via OM: Order cancelled - Patient discharged Performed By: #### L 500.2500, L100.0100 ####[facility] [address] [place], [address] Basic Metabolic Profile (BMP) Normal 136-145 [facility] Comment on above: Result Comment: Canc elled via OM: Order cancelled - Patient discharged Performed By: #### L 500.2500, L100.0100 ####[facility] [address] [place], [address] CBC W/Diff, Automatedon 02-2 Absolute Neut Normal 2.0-7.7 [facility] Comment on above: Result Comment: Canc elled via OM: Order cancelled - Patient discharged Performed By: #### L 500.2500, L100.0100 ####[facility] [address] [place], [address] HCT Normal 40-54 [facility] Comment on above: Result Comment: Canc elled via OM: Order cancelled - Patient discharged Performed By: #### L 500.2500, L100.0100 ####[facility] [address] [place], [address] HGB Normal 13.0-16.5 [facility] Comment on above: Result Comment: Canc elled via OM: Order cancelled - Patient discharged Performed By: #### L 500.2500, L100.0100 ####[facility] [address] [place], [address] MCH Normal 27.0-32.0 [facility] Comment on above: Result Comment: Canc elled via OM: Order cancelled - Patient discharged Performed By: #### L 500.2500, L100.0100 ####[facility] [address] [place], [address] MCHC Normal 32-36 [facility] Comment on above: Result Comment: Canc elled via OM: Order cancelled - Patient discharged Performed By: #### L 500.2500, L100.0100 ####[facility] [address] [place], [address] MCV Normal 80-94 [facility] Comment on above: Result Comment: Canc elled via OM: Order cancelled - Patient discharged Performed By: #### L 500.2500, L100.0100 ####[facility] [address] [place], [address] NEUT% Normal 47-70 [facility] Comment on above: Result Comment: Canc elled via OM: Order cancelled - Patient discharged Performed By: #### L 500.2500, L100.0100 ####[facility] [address] [place], [address] PLT Normal 150-450 [facility] Comment on above: Result Comment: Canc elled via OM: Order cancelled - Patient discharged Performed By: #### L 500.2500, L100.0100 ####[facility] [address] [place], [address] RBC Normal 4.6-6.2 [facility] Comment on above: Result Comment: Canc elled via OM: Order cancelled - Patient discharged Performed By: #### L 500.2500, L100.0100 ####[facility] [address] [place], [address] RDW CV Normal 11.6-14.6 [facility] Comment on above: Result Comment: Canc elled via OM: Order cancelled - Patient discharged Performed By: #### L 500.2500, L100.0100 ####[facility] [address] [place], [address] RDW SD Normal 35.1-43.9 [facility] Comment on above: Result Comment: Canc elled via OM: Order cancelled - Patient discharged Performed By: #### L 500.2500, L100.0100 ####[facility] [address] [place], [address] WBC Normal 4.4-11.0 [facility] Comment on above: Result Comment: Canc elled via OM: Order cancelled - Patient discharged Performed By: #### L 500.2500, L100.0100 ####[facility] [address] [place], [address] Absolute neutrophil countOrd ered By: Aracelis Roberson on 11-13-2024 Absolute neutrophil count 4.0 X10^3/uL 2.0-7.7 [facility] Basic Metabolic Profile (BMP )on 11-13-2024 BUN/CRE 12.3 RATIO Normal - [facility] Comment on above: Performed By: #### L 100.0100, L500.2500 ####[facility] [address] [place], [address] [place],Total 8.7 mg/dL Normal 8.5-10.1 [facility] Comment on above: Performed By: #### L 100.0100, L500.2500 ####[facility] [address] [place], [address] Chloride [Moles/Vol] 106 mmol/L Normal 98-107 [facility] Comment on above: Performed By: #### L 100.0100, L500.2500 ####[facility] [address] [place], [address] CO2 [Moles/Vol] 23.0 mmol/L Normal 21.0-32.0 [facility] Comment on above: Performed By: #### L 100.0100, L500.2500 ####[facility] [address] [place], [address] Creatinine [Mass/Vol] 0.81 mg/dL Normal 0.70-1.30 [facility] Comment on above: Result Comment: The validity of the calculated GFR GFRAA in patients over70 years has not been determined. Clinical correlation isessential. Performed By: #### L 100.0100, L500.2500 ####[facility] [address] [place], [address] ECRCL 92.63 ml/min Normal [facility] Comment on above: Performed By: #### L 100.0100, L500.2500 ####[facility] [address] [place], [address] EST GFR - AA 122 mL/min Normal >60 [facility] Comment on above: Result Comment: Afri can [place] GFR Calc Performed By: #### L 100.0100, L500.2500 ####[facility] [address] [place], [address] GAP 6 Normal 5-15 [facility] Comment on above: Performed By: #### L 100.0100, L500.2500 ####[facility] [address] [place], [address] GFR/1.73 sq M.predicted among non-blacks MDRD (S/P/Bld) [Vol rate/Area] 101 mL/min/{1.73_m2} Normal >60 [facility] Comment on above: Result Comment: Non- GFR Calc Performed By: #### L 100.0100, L500.2500 ####[facility] [address] [place], [address] Glucose [Mass/Vol] 86 mg/dL Normal 74-106 [facility] Comment on above: Performed By: #### L 100.0100, L500.2500 ####[facility] [address] [place], [address] Potassium [Moles/Vol] 3.6 mmol/L Normal 3.5-5.1 [facility] Comment on above: Performed By: #### L 100.0100, L500.2500 ####[facility] [address] [place], [address] Sodium [Moles/Vol] 135 mmol/L Low 136-145 [facility] Comment on above: Performed By: #### L 100.0100, L500.2500 ####[facility] [address] [place], [address] Urea nitrogen [Mass/Vol] 10 mg/dL Normal 7-18 [facility] Comment on above: Performed By: #### L 100.0100, L500.2500 ####[facility] [address] [place], [address] Basophil percentageOrdered B y: Araceliscristin Roberson on 11-13-2024 Basophil percentage 0.5 % 0-1 [facility] Blood urea nitrogen (BUN)/cr eatinine ratioOrdered By: Araceliscristin Roberson on 11-13-2024 Blood urea nitrogen (BUN)/creatinine ratio 12.3 RATIO 07-13 [facility] CBC W/Diff, Automatedon 10-26 Absolute Lymph 0.84 X10 3/uL Normal 0.83-4.51 [facility] Comment on above: Performed By: #### L 100.0100, L500.2500 ####[facility] [address] [place], [address] Absolute Neut 4.0 X10 3/uL Normal 2.0-7.7 [facility] Comment on above: Performed By: #### L 100.0100, L500.2500 ####[facility] [address] [place], [address] Basophils/100 WBC (Bld) 0.5 % Normal 0-1 [facility] Comment on above: Performed By: #### L 100.0100, L500.2500 ####[facility] [address] [place], [address] Eosinophils/100 WBC (Bld) 2.3 % Normal 0-5 [facility] Comment on above: Performed By: #### L 100.0100, L500.2500 ####[facility] [address] [place], [address] Erythrocyte distribution width (RBC) [Ratio] 15.9 % High 11.6-14.6 [facility] Comment on above: Performed By: #### L 100.0100, L500.2500 ####[facility] [facility] [address] [place], [address] Hematocrit (Bld) [Volume fraction] 28.2 % Low 40-54 [facility] Comment on above: Performed By: #### L 100.0100, L500.2500 ####[facility] [address] [place], [address] Hemoglobin (Bld) [Mass/Vol] 9.5 g/dL Low 13.0-16.5 [facility] Comment on above: Performed By: #### L 100.0100, L500.2500 ####[facility] [address] [place], [address] IG% 0.500 Normal 0.0-0.9 [facility] Comment on above: Result Comment: IG% - Immature Granulocytes (promyelocytes, myelocytes andmetamyelocytes) > 1% indicates that a LEFT SHIFT is Present. Performed By: #### L 100.0100, L500.2500 ####[facility] [address] [place], [address] Lymphocytes/100 WBC (Bld) 14.7 % Low 19-41 [facility] Comment on above: Performed By: #### L 100.0100, L500.2500 ####[facility] [address] [place], [address] MCH (RBC) [Entitic mass] 28.9 pg Normal 27.0-32.0 [facility] Comment on above: Performed By: #### L 100.0100, L500.2500 ####[facility] [address] [place], [address] MCHC (RBC) [Mass/Vol] 33.7 g/dL Normal 32-36 [facility] Comment on above: Performed By: #### L 100.0100, L500.2500 ####[facility] [address] [place], [address] MCV (RBC) [Entitic vol] 85.7 fL Normal 80-94 [facility] Comment on above: Performed By: #### L 100.0100, L500.2500 ####[facility] [address] [place], [address] Monocytes/100 WBC (Bld) 12.7 % High 0-10 [facility] Comment on above: Performed By: #### L 100.0100, L500.2500 ####[facility] [address] [place], [address] Neutrophils/100 WBC (Bld) 69.3 % Normal 47-70 [facility] Comment on above: Performed By: #### L 100.0100, L500.2500 ####[facility] [address] [place], [address] Nucleated RBC (Bld) [#/Vol] 0 10*3/uL Normal 0-5 [facility] Comment on above: Performed By: #### L 100.0100, L500.2500 ####[facility] [address] [place], [address] Platelet mean volume (Bld) [Entitic vol] 9.0 fL Normal 6.2-12.0 [facility] Comment on above: Performed By: #### L 100.0100, L500.2500 ####[facility] [address] [place], [address] Platelets (Bld) [#/Vol] 262 10*3/uL Normal 150-450 [facility] Comment on above: Performed By: #### L 100.0100, L500.2500 ####[facility] [address] [place], [address] RBC (Bld) [#/Vol] 3.29 10*6/uL Low 4.6-6.2 [facility] Comment on above: Performed By: #### L 100.0100, L500.2500 ####[facility] [address] [place], [address] RDW SD 50.4 fl High 35.1-43.9 [facility] Comment on above: Performed By: #### L 100.0100, L500.2500 ####[facility] [address] [place], [address] WBC (Bld) [#/Vol] 5.7 10*3/uL Normal 4.4-11.0 [facility] Comment on above: Performed By: #### L 100.0100, L500.2500 ####[facility] [address] [place], [address] Calcium [Mass/Vol]Ordered By : Aracelis Roberson on 11-13-2024 Serum or plasma calcium measurement (mass/volume) 8.7 mg/dL 8.5-10.1 [facility] Carbon dioxide measurementOr dered By: Aracelis Roberson on 11-13-2024 Carbon dioxide measurement 23.0 mmol/L 21.0-32.0 [facility] Chloride measurementOrdered By: Aracelis Roberson on 11-13-2024 Chloride measurement 106 mmol/L 98-107 [facility] Creatinine [Mass/Vol]Ordered By: Aracelis Roberson on 11-13-2024 Serum or plasma creatinine measurement (mass/volume) 0.81 mg/dL 0.70-1.30 [facility] Discharge Instructionon 10-26 Discharge Instruction Normal [facility] EGD Reporton 11-13-2024 EGD Report Normal [facility] Eosinophil percentageOrdered By: Aracelis Roberson on 11-13-2024 Eosinophil percentage 2.3 % 0-5 [facility] Erythrocyte distribution wid th (RBC) [Entitic vol]Ordered By: Aracelis Roberson on 11-13-2024 Erythrocyte distribution width standard deviation 50.4 fl High 35.1-43.9 [facility] Erythrocyte distribution wid th (RBC) [Ratio]Ordered By: Aracelis Roberson on 11-13-2024 Erythrocyte distribution width ratio 15.9 % High 11.6-14.6 [facility] Estimated glomerular filtrat ion rate (GFR) AmericanOrdered By: Aracelis Roberson on 11-13-2024 Estimated glomerular filtration rate (GFR) 122 mL/min >60 [facility] Estimation of creatinine deion aranceOrdered By: Aracelis Roberson on 11-13-2024 Estimation of creatinine clearance 92.63 ml/min [facility] Glomerular filtration rate ( GFR) estimationOrdered By: Aracelis Roberson on 11-13-2024 Glomerular filtration rate (GFR) estimation 101 mL/min >60 [facility] Glucose measurementOrdered B y: Aracelis Roberson on 11-13-2024 Glucose measurement 86 mg/dL 74-106 [facility] Hematocrit Auto (Bld) [Volum e fraction]Ordered By: Aracelis Roberson on 11-13-2024 Automated blood hematocrit (percentage) 28.2 % Low 40-54 [facility] Hemoglobin measurementOrdere d By: Aracelis Roberson on 11-13-2024 Hemoglobin measurement 9.5 g/dL Low 13.0-16.5 [facility] Immature granulocytes/100 WB C Auto (Bld)Ordered By: Aracelis Roberson on 11-13-2024 Automated immature granulocyte percentage 0.500 % 0.0-0.9 [facility] Lymphocytes Auto (Unsp spec) [#/Vol]Ordered By: Aracelis Roberson on 11-13-2024 Absolute lymphocyte count 0.84 X10^3/uL 0.83-4.51 [facility] Lymphocytes/100 WBC Auto (Un sp spec)Ordered By: Aracelis Roberson on 11-13-2024 Automated lymphocyte count as percentage of total leukocytes 14.7 % Low 19-41 [facility] MCV (RBC) [Entitic vol]Order ed By: Aracelis Roberson on 11-13-2024 MCV (mean corpuscular volume) determination 85.7 fL 80-94 [facility] MR/POSTOP.ANEon 11-13-2024 MR/POSTOP.ANE Normal [facility] MR/DSLPDQYT7sl 11-13-2024 MR/POSTOPAN2 Normal [facility] Mean corpuscular hemoglobin (MCH) determinationOrdered By: Aracelis Roberson on 11-13-2024 Mean corpuscular hemoglobin (MCH) determination 28.9 pg 27.0-32.0 [facility] Mean corpuscular hemoglobin concentration (MCHC) determinationOrdered By: Aracelis Roberson on 11-13-2024 Mean corpuscular hemoglobin concentration (MCHC) determination 33.7 g/dL 32-36 [facility] Mean platelet volume determi nationOrdered By: Aracelis Roberson on 11-13-2024 Mean platelet volume determination 9.0 fl 6.2-12.0 [facility] Monocyte percentageOrdered B y: Aracelis Roberson on 11-13-2024 Monocyte percentage 12.7 % High 0-10 [facility] Neutrophil percentageOrdered By: Aracelis Roberson on 11-13-2024 Neutrophil percentage 69.3 % 47-70 [facility] Nucleated red blood cell per centageOrdered By: Aracelis Roberson on 11-13-2024 Nucleated red blood cell percentage 0 % 0-5 [facility] Partial Thromboplast Timeon 11-13-2024 aPTT Coag (Bld) [Time] 31.5 s Normal 24.1-36.2 [facility] Comment on above: Performed By: #### L 666.3726 ####[facility] [address] [place], [address] Platelet countOrdered By: Miriam Roberson on 11-13-2024 Platelet count 262 K/mm3 150-450 [facility] Potassium measurementOrdered By: Aracelis Roberson on 11-13-2024 Potassium measurement 3.6 mmol/L 3.5-5.1 [facility] RBC Auto (Bld) [#/Vol]Ordere d By: Aracelis Roberson on 11-13-2024 Automated blood erythrocyte count 3.29 M/mm3 Low 4.6-6.2 [facility] Serum anion gap measurementO rdered By: Aracelis Roberson on 11-13-2024 Serum anion gap measurement 6 5-15 [facility] Sodium levelOrdered By: Aracelis Roberson on 11-13-2024 Sodium level 135 mmol/L Low 136-145 [facility] Urea nitrogen [Mass/Vol]Orde red By: Aracelis Roberson on 11-13-2024 Serum or plasma urea nitrogen measurement (mass/volume) 10 mg/dL 7-18 [facility] White blood cell (WBC) count Ordered By: Aracelis Roberson on 11-13-2024 White blood cell (WBC) count 5.7 K/mm3 4.4-11.0 [facility] aPTT Coag (PPP) [Time]Ordere d By: Eligio Vasques on 11-13-2024 Activated partial thromboplastin time (aPTT) in platelet poor plasma by coagulation a 31.5 Seconds 24.1-36.2 [facility] Basic Metabolic Profile (BMP )on 11-12-2024 BUN/CRE 22.3 RATIO High 10-20 [facility] Comment on above: Performed By: #### L 100.0100, L500.2500 ####[facility] [address] [place], [address] CA,Total 8.9 mg/dL Normal 8.5-10.1 [facility] Comment on above: Performed By: #### L 100.0100, L500.2500 ####[facility] [address] [place], [address] Chloride [Moles/Vol] 107 mmol/L Normal 98-107 [facility] Comment on above: Performed By: #### L 100.0100, L500.2500 ####[facility] [address] [place], [address] CO2 [Moles/Vol] 21.0 mmol/L Normal 21.0-32.0 [facility] Comment on above: Performed By: #### L 100.0100, L500.2500 ####[facility] [address] [place], [address] Creatinine [Mass/Vol] 0.76 mg/dL Normal 0.70-1.30 [facility] Comment on above: Result Comment: The validity of the calculated GFR GFRAA in patients over70 years has not been determined. Clinical correlation isessential. Performed By: #### L 100.0100, L500.2500 ####[facility] [address] [place], [address] ECRCL 93.78 ml/min Normal [facility] Comment on above: Performed By: #### L 100.0100, L500.2500 ####[facility] [address] [place], [address] EST GFR - AA 131 mL/min Normal >60 [facility] Comment on above: Result Comment: Afri can [place] GFR Calc Performed By: #### L 100.0100, L500.2500 ####[facility] [address] [place], [address] GAP 9 Normal 5-15 [facility] Comment on above: Performed By: #### L 100.0100, L500.2500 ####[facility] [address] [place], [address] GFR/1.73 sq M.predicted among non-blacks MDRD (S/P/Bld) [Vol rate/Area] 109 mL/min/{1.73_m2} Normal >60 [facility] Comment on above: Result Comment: Non- GFR Calc Performed By: #### L 100.0100, L500.2500 ####[facility] [address] [place], [address] Glucose [Mass/Vol] 88 mg/dL Normal 74-106 [facility] Comment on above: Performed By: #### L 100.0100, L500.2500 ####[facility] [address] [place], [address] Potassium [Moles/Vol] 3.8 mmol/L Normal 3.5-5.1 [facility] Comment on above: Performed By: #### L 100.0100, L500.2500 ####[facility] [address] [place], [address] Sodium [Moles/Vol] 137 mmol/L Normal 136-145 [facility] Comment on above: Performed By: #### L 100.0100, L500.2500 ####[facility] [address] [place], [address] Urea nitrogen [Mass/Vol] 17 mg/dL Normal 7-18 [facility] Comment on above: Performed By: #### L 100.0100, L500.2500 ####[facility] [address] [place], [address] CBC W/Diff, Automatedon 10-25 Absolute Lymph 1.17 X10 3/uL Normal 0.83-4.51 [facility] Comment on above: Performed By: #### L 100.0100, L500.2500 ####[facility] [address] [place], [address] Absolute Neut 6.7 X10 3/uL Normal 2.0-7.7 [facility] Comment on above: Performed By: #### L 100.0100, L500.2500 ####[facility] [address] [place], [address] Basophils/100 WBC (Bld) 0.5 % Normal 0-1 [facility] Comment on above: Performed By: #### L 100.0100, L500.2500 ####[facility] [address] [place], [address] Eosinophils/100 WBC (Bld) 0.9 % Normal 0-5 [facility] Comment on above: Performed By: #### L 100.0100, L500.2500 ####[facility] [address] [place], [address] Erythrocyte distribution width (RBC) [Ratio] 16.2 % High 11.6-14.6 [facility] Comment on above: Performed By: #### L 100.0100, L500.2500 ####[facility] [address] [place], [address] Hematocrit (Bld) [Volume fraction] 29.8 % Low 40-54 [facility] Comment on above: Performed By: #### L 100.0100, L500.2500 ####[facility] [address] [place], [address] Hemoglobin (Bld) [Mass/Vol] 9.8 g/dL Low 13.0-16.5 [facility] Comment on above: Performed By: #### L 100.0100, L500.2500 ####[facility] [address] [place], [address] IG% 0.600 Normal 0.0-0.9 [facility] Comment on above: Result Comment: IG% - Immature Granulocytes (promyelocytes, myelocytes andmetamyelocytes) > 1% indicates that a LEFT SHIFT is Present. Performed By: #### L 100.0100, L500.2500 ####[facility] [address] [place], [address] Lymphocytes/100 WBC (Bld) 13.2 % Low 19-41 [facility] Comment on above: Performed By: #### L 100.0100, L500.2500 ####[facility] [address] [place], [address] MCH (RBC) [Entitic mass] 28.4 pg Normal 27.0-32.0 [facility] Comment on above: Performed By: #### L 100.0100, L500.2500 ####[facility] [address] [place], [address] MCHC (RBC) [Mass/Vol] 32.9 g/dL Normal 32-36 [facility] Comment on above: Performed By: #### L 100.0100, L500.2500 ####[facility] [address] [place], [address] MCV (RBC) [Entitic vol] 86.4 fL Normal 80-94 [facility] Comment on above: Performed By: #### L 100.0100, L500.2500 ####[facility] [address] [place], [address] Monocytes/100 WBC (Bld) 9.1 % Normal 0-10 [facility] Comment on above: Performed By: #### L 100.0100, L500.2500 ####[facility] [address] [place], [address] Neutrophils/100 WBC (Bld) 75.7 % High 47-70 [facility] Comment on above: Performed By: #### L 100.0100, L500.2500 ####[facility] [address] [place], [address] Nucleated RBC (Bld) [#/Vol] 0 10*3/uL Normal 0-5 [facility] Comment on above: Performed By: #### L 100.0100, L500.2500 ####[facility] [address] [place], [address] Platelet mean volume (Bld) [Entitic vol] 9.3 fL Normal 6.2-12.0 [facility] Comment on above: Performed By: #### L 100.0100, L500.2500 ####[facility] [address] [place], [address] Platelets (Bld) [#/Vol] 322 10*3/uL Normal 150-450 [facility] Comment on above: Performed By: #### L 100.0100, L500.2500 ####[facility] [address] [place], [address] RBC (Bld) [#/Vol] 3.45 10*6/uL Low 4.6-6.2 [facility] Comment on above: Performed By: #### L 100.0100, L500.2500 ####[facility] [address] [place], [address] RDW SD 51.1 fl High 35.1-43.9 [facility] Comment on above: Performed By: #### L 100.0100, L500.2500 ####[facility] [address] [place], [address] WBC (Bld) [#/Vol] 8.9 10*3/uL Normal 4.4-11.0 [facility] Comment on above: Performed By: #### L 100.0100, L500.2500 ####[facility] [address] [place], [address] Discharge Instructionon 10-25 Discharge Instruction Normal [facility] MR/CON.PCM.GIon 11-12-2024 MR/CON.PCM.GI Normal [facility] Basic Metabolic Profile (BMP )on 11-11-2024 BUN/CRE 19.1 RATIO Normal 10-20 [facility] Comment on above: Performed By: #### L 100.0100, L500.2500 ####[facility] [address] [place], [address] CA,Total 9.4 mg/dL Normal 8.5-10.1 [facility] Comment on above: Performed By: #### L 100.0100, L500.2500 ####[facility] [address] [place], [address] Chloride [Moles/Vol] 108 mmol/L High 98-107 [facility] Comment on above: Performed By: #### L 100.0100, L500.2500 ####[facility] [address] [place], [address] CO2 [Moles/Vol] 20.0 mmol/L Low 21.0-32.0 [facility] Comment on above: Performed By: #### L 100.0100, L500.2500 ####[facility] [address] [place], [address] Creatinine [Mass/Vol] 1.10 mg/dL Normal 0.70-1.30 [facility] Comment on above: Result Comment: The validity of the calculated GFR GFRAA in patients over70 years has not been determined. Clinical correlation isessential. Performed By: #### L 100.0100, L500.2500 ####[facility] [address] [place], [address] ECRCL 68.21 ml/min Normal [facility] Comment on above: Performed By: #### L 100.0100, L500.2500 ####[facility] [address] [place], [address] EST GFR - AA 86 mL/min Normal >60 [facility] Comment on above: Result Comment: Afri can [place] GFR Calc Performed By: #### L 100.0100, L500.2500 ####[facility] [address] [place], [address] GAP 11 Normal 5-15 [facility] Comment on above: Performed By: #### L 100.0100, L500.2500 ####[facility] [address] [place], [address] GFR/1.73 sq M.predicted among non-blacks MDRD (S/P/Bld) [Vol rate/Area] 71 mL/min/{1.73_m2} Normal >60 [facility] Comment on above: Result Comment: Non- GFR Calc Performed By: #### L 100.0100, L500.2500 ####[facility] [address] [place], [address] Glucose [Mass/Vol] 113 mg/dL High 74-106 [facility] Comment on above: Result Comment: Fast ing Glucose result from 100 to 125 mg/dLsuggests IMPAIRED HOMEOSTASIS per A.D.A. criteria. Performed By: #### L 100.0100, L500.2500 ####[facility] [address] [place], [address] Potassium [Moles/Vol] 4.0 mmol/L Normal 3.5-5.1 [facility] Comment on above: Performed By: #### L 100.0100, L500.2500 ####[facility] [address] [place], [address] Sodium [Moles/Vol] 140 mmol/L Normal 136-145 [facility] Comment on above: Performed By: #### L 100.0100, L500.2500 ####[facility] [address] [place], [address] Urea nitrogen [Mass/Vol] 21 mg/dL High 7-18 [facility] Comment on above: Performed By: #### L 100.0100, L500.2500 ####[facility] [address] [place], [address] CBC W/Diff, Automatedon 10-25 Absolute Lymph 1.00 X10 3/uL Normal 0.83-4.51 [facility] Comment on above: Performed By: #### L 100.0100, L500.2500 ####[facility] [address] [place], [address] Absolute Neut 9.8 X10 3/uL High 2.0-7.7 [facility] Comment on above: Performed By: #### L 100.0100, L500.2500 ####[facility] [address] [place], [address] Basophils/100 WBC (Bld) 0.2 % Normal 0-1 [facility] Comment on above: Performed By: #### L 100.0100, L500.2500 ####[facility] [address] [place], [address] Eosinophils/100 WBC (Bld) 0.0 % Normal 0-5 [facility] Comment on above: Performed By: #### L 100.0100, L500.2500 ####[facility] [address] [place], [address] Erythrocyte distribution width (RBC) [Ratio] 15.9 % High 11.6-14.6 [facility] Comment on above: Performed By: #### L 100.0100, L500.2500 ####[facility] [address] [place], [address] Hematocrit (Bld) [Volume fraction] 30.4 % Low 40-54 [facility] Comment on above: Performed By: #### L 100.0100, L500.2500 ####[facility] [address] [place], [address] Hemoglobin (Bld) [Mass/Vol] 10.4 g/dL Low 13.0-16.5 [facility] Comment on above: Performed By: #### L 100.0100, L500.2500 ####[facility] [address] [place], [address] IG% 0.600 Normal 0.0-0.9 [facility] Comment on above: Result Comment: IG% - Immature Granulocytes (promyelocytes, myelocytes andmetamyelocytes) > 1% indicates that a LEFT SHIFT is Present. Performed By: #### L 100.0100, L500.2500 ####[facility] [address] [place], [address] Lymphocytes/100 WBC (Bld) 8.1 % Low 19-41 [facility] Comment on above: Performed By: #### L 100.0100, L500.2500 ####[facility] [address] [place], [address] MCH (RBC) [Entitic mass] 28.9 pg Normal 27.0-32.0 [facility] Comment on above: Performed By: #### L 100.0100, L500.2500 ####[facility] [address] [place], [address] MCHC (RBC) [Mass/Vol] 34.2 g/dL Normal 32-36 [facility] Comment on above: Performed By: #### L 100.0100, L500.2500 ####[facility] [address] [place], [address] MCV (RBC) [Entitic vol] 84.4 fL Normal 80-94 [facility] Comment on above: Performed By: #### L 100.0100, L500.2500 ####[facility] [address] [place], [address] Monocytes/100 WBC (Bld) 11.9 % High 0-10 [facility] Comment on above: Performed By: #### L 100.0100, L500.2500 ####[facility] [address] [place], [address] Neutrophils/100 WBC (Bld) 79.2 % High 47-70 [facility] Comment on above: Performed By: #### L 100.0100, L500.2500 ####[facility] [address] [place], [address] Nucleated RBC (Bld) [#/Vol] 0 10*3/uL Normal 0-5 [facility] Comment on above: Performed By: #### L 100.0100, L500.2500 ####[facility] [address] [place], [address] Platelet mean volume (Bld) [Entitic vol] 9.7 fL Normal 6.2-12.0 [facility] Comment on above: Performed By: #### L 100.0100, L500.2500 ####[facility] [address] [place], [address] Platelets (Bld) [#/Vol] 386 10*3/uL Normal 150-450 [facility] Comment on above: Performed By: #### L 100.0100, L500.2500 ####[facility] [address] [place], [address] RBC (Bld) [#/Vol] 3.60 10*6/uL Low 4.6-6.2 [facility] Comment on above: Performed By: #### L 100.0100, L500.2500 ####[facility] [address] [place], [address] RDW SD 48.9 fl High 35.1-43.9 [facility] Comment on above: Performed By: #### L 100.0100, L500.2500 ####[facility] [address] [place], [address] WBC (Bld) [#/Vol] 12.4 10*3/uL High 4.4-11.0 [facility] Comment on above: Performed By: #### L 100.0100, L500.2500 ####[facility] [address] [place], [address] HH, Hemoglobin AND Hematocri ton 02-18-2025 Hematocrit (Bld) [Volume fraction] 29.4 % Low 40-54 [facility] Comment on above: Performed By: #### L 100.0600 ####[facility] [address] [place], [place], [address] Hemoglobin (Bld) [Mass/Vol] 9.9 g/dL Low 13.0-16.5 [facility] Comment on above: Performed By: #### L 100.0600 ####[facility] [address] [place], [place], [id number] ALP [Catalytic activity/Vol] Ordered By: Deweyrandall Kam on 11-10-2024 Serum or plasma alkaline phosphatase measurement 63 U/L 45-117 [facility] ALT [Catalytic activity/Vol] Ordered By: Deweyrandall Kam on 11-10-2024 Serum or plasma alanine aminotransferase (ALT) measurement 22 U/L 16-61 [facility] Abdomen/Pelvis W IV Cont ONL Yon 11-10-2024 Abdomen/Pelvis W IV Cont ONLY Normal [facility] Albumin [Mass/Vol]Ordered By : Deweyrandall Kam on 11-10-2024 Serum or plasma albumin measurement (mass/volume) 4.4 g/dL 3.2-5.0 [facility] Albumin to globulin ratioOrd ered By: Deweyrandall Kam on 11-10-2024 Albumin to globulin ratio 1.0 RATIO 0.9-2.4 [facility] Bacteria LM.HPF (Urine sed) [#/Area]Ordered By: Deweyrandall Kam on 11-10-2024 Urine sediment bacteria count by microscopy (number/high power field) 0 SEEN /hpf None Seen [facility] Bilirubin, totalOrdered By: Deweyrandall Kam on 11-10-2024 Bilirubin, total 0.50 mg/dL 0.20-1.00 [facility] CBC W/Diff, Automatedon 10-25 Absolute Lymph 0.50 X10 3/uL Low 0.83-4.51 [facility] Comment on above: Performed By: #### L 100.0100, L500.4050 ####[facility] [address] [place], [address] Absolute Neut 17.7 X10 3/uL High 2.0-7.7 [facility] Comment on above: Performed By: #### L 100.0100, L500.4050 ####[facility] [address] [place], [address] Basophils/100 WBC (Bld) 0.1 % Normal 0-1 [facility] Comment on above: Performed By: #### L 100.0100, L500.4050 ####[facility] [address] [place], [address] Eosinophils/100 WBC (Bld) 0.3 % Normal 0-5 [facility] Comment on above: Performed By: #### L 100.0100, L500.4050 ####[facility] [address] [place], [address] Erythrocyte distribution width (RBC) [Ratio] 15.8 % High 11.6-14.6 [facility] Comment on above: Performed By: #### L 100.0100, L500.4050 ####[facility] [address] [place], [address] Hematocrit (Bld) [Volume fraction] 40.2 % Normal 40-54 [facility] Comment on above: Performed By: #### L 100.0100, L500.4050 ####[facility] [address] [place], [address] Hemoglobin (Bld) [Mass/Vol] 13.5 g/dL Normal 13.0-16.5 [facility] Comment on above: Performed By: #### L 100.0100, L500.4050 ####[facility] [address] [place], [address] IG% 0.500 Normal 0.0-0.9 [facility] Comment on above: Result Comment: IG% - Immature Granulocytes (promyelocytes, myelocytes andmetamyelocytes) > 1% indicates that a LEFT SHIFT is Present. Performed By: #### L 100.0100, L500.4050 ####[facility] [address] [place], [address] Lymphocytes/100 WBC (Bld) 2.6 % Low 19-41 [facility] Comment on above: Performed By: #### L 100.0100, L500.4050 ####[facility] [address] [place], [address] MCH (RBC) [Entitic mass] 28.1 pg Normal 27.0-32.0 [facility] Comment on above: Performed By: #### L 100.0100, L500.4050 ####[facility] [address] [place], [address] MCHC (RBC) [Mass/Vol] 33.6 g/dL Normal 32-36 [facility] Comment on above: Performed By: #### L 100.0100, L500.4050 ####[facility] [address] [place], [address] MCV (RBC) [Entitic vol] 83.6 fL Normal 80-94 [facility] Comment on above: Performed By: #### L 100.0100, L500.4050 ####[facility] [address] [place], [address] Monocytes/100 WBC (Bld) 3.2 % Normal 0-10 [facility] Comment on above: Performed By: #### L 100.0100, L500.4050 ####[facility] [address] [place], [address] Neutrophils/100 WBC (Bld) 93.3 % High 47-70 [facility] Comment on above: Performed By: #### L 100.0100, L500.4050 ####[facility] [address] [place], [address] Nucleated RBC (Bld) [#/Vol] 0 10*3/uL Normal 0-5 [facility] Comment on above: Performed By: #### L 100.0100, L500.4050 ####[facility] [address] [place], [address] Platelet mean volume (Bld) [Entitic vol] 9.5 fL Normal 6.2-12.0 [facility] Comment on above: Performed By: #### L 100.0100, L500.4050 ####[facility] [address] [place], [address] Platelets (Bld) [#/Vol] 579 10*3/uL High 150-450 [facility] Comment on above: Performed By: #### L 100.0100, L500.4050 ####[facility] [address] [place], [address] RBC (Bld) [#/Vol] 4.81 10*6/uL Normal 4.6-6.2 [facility] Comment on above: Performed By: #### L 100.0100, L500.4050 ####[facility] [address] [place], [address] RDW SD 47.4 fl High 35.1-43.9 [facility] Comment on above: Performed By: #### L 100.0100, L500.4050 ####[facility] [address] [place], [address] WBC (Bld) [#/Vol] 19.0 10*3/uL High 4.4-11.0 [facility] Comment on above: Performed By: #### L 100.0100, L500.4050 ####[facility] [address] [place], [address] Clarity (U)Ordered By: Dewey Centeno allo on 11-10-2024 Urine clarity Clear Clear [facility] Color (U)Ordered By: Dewey Hall lo on 11-10-2024 Urine color determination Yellow Yellow [facility] Comprehensive Metabolic Prof ilon 11-10-2024 Albumin [Mass/Vol] 4.4 g/dL Normal 3.2-5.0 [facility] Comment on above: Performed By: #### L 100.0100, L500.4050 ####[facility] [address] [place], [address] Albumin/Globulin [Mass ratio] 1.0 {ratio} Normal 0.9-2.4 [facility] Comment on above: Performed By: #### L 100.0100, L500.4050 ####[facility] [address] [place], [address] ALK P 63 U/L Normal 45-117 [facility] Comment on above: Performed By: #### L 100.0100, L500.4050 ####[facility] [address] [place], [address] ALT [Catalytic activity/Vol] 22 U/L Normal 16-61 [facility] Comment on above: Performed By: #### L 100.0100, L500.4050 ####[facility] [address] [place], [address] AST [Catalytic activity/Vol] 39 U/L High 15-37 [facility] Comment on above: Result Comment: Mode rate Hemolysis, Result may be falsely increased. Performed By: #### L 100.0100, L500.4050 ####[facility] [address] [place], [address] Bilirubin [Mass/Vol] 0.50 mg/dL Normal 0.20-1.00 [facility] Comment on above: Result Comment: For patients on eltrombopag therapy, use of Dimension [place] TBIL is not recommended. Performed By: #### L 100.0100, L500.4050 ####[facility] [address] [place], [address] BUN/CRE 9.7 RATIO Low 10-20 [facility] Comment on above: Performed By: #### L 100.0100, L500.4050 ####[facility] [address] [place], [address] CA,Total 11.1 mg/dL High 8.5-10.1 [facility] Comment on above: Performed By: #### L 100.0100, L500.4050 ####[facility] [address] [place], [address] Chloride [Moles/Vol] 102 mmol/L Normal 98-107 [facility] Comment on above: Performed By: #### L 100.0100, L500.4050 ####[facility] [address] [place], [address] CO2 [Moles/Vol] 15.0 mmol/L Low 21.0-32.0 [facility] Comment on above: Performed By: #### L 100.0100, L500.4050 ####[facility] [address] [place], [address] Creatinine [Mass/Vol] 1.75 mg/dL High 0.70-1.30 [facility] Comment on above: Result Comment: The validity of the calculated GFR GFRAA in patients over70 years has not been determined. Clinical correlation isessential. Performed By: #### L 100.0100, L500.4050 ####[facility] [address] [place], [address] ECRCL 42.87 ml/min Normal [facility] Comment on above: Performed By: #### L 100.0100, L500.4050 ####[facility] [address] [place], [address] EST GFR - AA 50 mL/min Low >60 [facility] Comment on above: Result Comment: Afri can [place] GFR Calc Performed By: #### L 100.0100, L500.4050 ####[facility] [address] [place], [address] GAP 17 High 5-15 [facility] Comment on above: Performed By: #### L 100.0100, L500.4050 ####[facility] [address] [place], [address] GFR/1.73 sq M.predicted among non-blacks MDRD (S/P/Bld) [Vol rate/Area] 42 mL/min/{1.73_m2} Low >60 [facility] Comment on above: Result Comment: Non- GFR Calc Performed By: #### L 100.0100, L500.4050 ####[facility] [address] [place], [address] Globulin (S) [Mass/Vol] 4.5 g/dL High 2.2-4.2 [facility] Comment on above: Performed By: #### L 100.0100, L500.4050 ####[facility] [address] [place], [address] Glucose [Mass/Vol] 166 mg/dL High 74-106 [facility] Comment on above: Result Comment: Fast ing Glucose result greater than or equal to 126 mg/dLsuggests DIABETES MELLITUS per A.D.A. criteria. Performed By: #### L 100.0100, L500.4050 ####[facility] [address] [place], [address] Potassium [Moles/Vol] 5.4 mmol/L High 3.5-5.1 [facility] Comment on above: Result Comment: Mode rate Hemolysis, Result may be falsely increased. Performed By: #### L 100.0100, L500.4050 ####[facility] [address] [place], [address] Sodium [Moles/Vol] 134 mmol/L Low 136-145 [facility] Comment on above: Performed By: #### L 100.0100, L500.4050 ####[facility] [address] [place], [address] T PROT 8.9 g/dL High 6.4-8.2 [facility] Comment on above: Performed By: #### L 100.0100, L500.4050 ####[facility] [address] [place], [address] Urea nitrogen [Mass/Vol] 17 mg/dL Normal 7-18 [facility] Comment on above: Performed By: #### L 100.0100, L500.4050 ####[facility] [address] [place], [address] Emergency Department Summary on 11-10-2024 Emergency Department Summary Normal [facility] Gastric, Occult Bloodon 10-25 GASTOC Normal Reference Ran ge = Negative Gastrocult- Occult Blood A * POSITIVE * A Gastroccult pH 3 OCCULT BLOOD POSITIVE Normal [facility] Comment on above: Performed By: #### M 100.6928 ####[facility] [address] [place], [address] Glucose Ql (U)Ordered By: Ug o Kam on 11-10-2024 Urine glucose detection Normal mg/dl Normal [facility] Hemoglobin.gastrointestinal Ql ([place])Ordered By: Kristel Law on 11-10-2024 Gastric contents occult blood detection Positive Abnormal [facility] Hyaline casts LM.LPF (Urine sed) [#/Area]Ordered By: Dewey Kam on 11-10-2024 Urine sediment hyaline cast count by microscopy (number/low power field) 10-25 SEEN /lpf 0-5 [facility] Lactic Acidon 11-10-2024 Lactate [Moles/Vol] 0.7 mmol/L Normal 0.4-1.9 [facility] Comment on above: Performed By: #### L 503.6005 ####[facility] [address] [facility] [address] [place], [place], [address] Lactate [Moles/Vol] 3.9 mmol/L Invalid Interpretation Code 0.4-1.9 [facility] Comment on above: Order Comment: Y Result Comment: Crit ical Result(s) Called at: 18:25:49 11/10/2024 by: MAXIMILIAN ESCALONA. Results read back by same. Performed By: #### L 503.6005 ####[facility] [address] [facility] [place], [place], [address] Lactic acid measurementOrder ed By: Kristel Law on 11-10-2024 Lactic acid measurement 0.7 mmol/L 0.4-2.0 [facility] Leukocyte esterase Test stri p Ql (U)Ordered By: Dewey Kam on 11-10-2024 Urine leukocyte esterase detection by dipstick 25 /ul High Negative [facility] Lipaseon 11-10-2024 Lipase [Catalytic activity/Vol] 30 U/L Low 73-393 [facility] Comment on above: Performed By: #### L 501.2450 ####[facility] [address] [facility] [place], [place], [address] Lipase measurementOrdered By : Kristel Law on 11-10-2024 Lipase measurement 30 U/L Low 73-393 [facility] Microscopic analysis of urin e for red blood cells (RBC)Ordered By: Dewey Kam on 11-10-2024 Microscopic analysis of urine for red blood cells (RBC) 5-10 SEEN /hpf 0-5 [facility] Mucus detection in urine sed iment by light microscopyOrdered By: Dewey Kam on 11-10-2024 Mucus detection in urine sediment by light microscopy 1+ /hpf [facility] No Panel InformationOrdered By: Dewey Kam on 11-10-2024 39 U/L High 15-37 [facility] Protein Test strip Ql (U)Ord ered By: Dewey Kam on 11-10-2024 Urine protein assay by test strip, semi-quantitative 30 mg/dl High Negative [facility] Serum globulin measurementOr dered By: Dewey Kam on 11-10-2024 Serum globulin measurement 4.5 g/dL High 2.2-4.2 [facility] Specific gravity (U) [Rel de nsity]Ordered By: Dewey Picketto on 11-10-2024 Urine specific gravity measurement 1.025 1.002-1.03 0 [facility] Total proteinOrdered By: Deweyrandall Kam on 11-10-2024 Total protein 8.9 g/dL High 6.4-8.2 [facility] Urinalysis, Completeon 11-10 CAST,FINE GRAN 0-5 SEEN Normal 0-5 [facility] Comment on above: Order Comment: CLEAN CATCH Performed By: #### L 400.0001 ####[facility] [address] [place], [place], [id number] CAST,WBC 0-5 SEEN Normal None Seen [facility] Comment on above: Order Comment: CLEAN CATCH Performed By: #### L 400.0001 ####[facility] [address] [place], [address] CA OX CRYSTAL 1+ /hpf Normal [facility] Comment on above: Order Comment: CLEAN CATCH Performed By: #### L 400.0001 ####[facility] [address] [place], [address] CAST,HYALINE 10-25 SEEN Normal 0-5 [facility] Comment on above: Order Comment: CLEAN CATCH Performed By: #### L 400.0001 ####[facility] [address] [place], [address] EPI,SQUAMOUS 0-5 SEEN Normal 0-5 [facility] Comment on above: Order Comment: CLEAN CATCH Performed By: #### L 400.0001 ####[facility] [address] [place], [place], [address] Mucus Ql (Urine sed) 1+ /hpf Normal [facility] Comment on above: Order Comment: CLEAN CATCH Performed By: #### L 400.0001 ####[facility] [address] [place], [place], [address] RBC 5-10 SEEN Normal 0-5 [facility] Comment on above: Order Comment: CLEAN CATCH Performed By: #### L 400.0001 ####[facility] [address] [place], [address] WBC 0-5 SEEN Normal 0-5 [facility] Comment on above: Order Comment: CLEAN CATCH Performed By: #### L 400.0001 ####[facility] [address] [place], [place], [address] BACTERIA 0 SEEN Normal None Seen [facility] Comment on above: Order Comment: CLEAN CATCH Performed By: #### L 400.0001 ####[facility] [address] [place], [place], [address] Urine blood detectionOrdered By: Dewey Kam on 11-10-2024 Urine blood detection 150 /ul High Negative [facility] Urine sediment fine granular cast count by microscopy (number/low power field)Ordered By: Dewey Kam on 11-10-2024 Urine sediment fine granular cast count by microscopy (number/low power field) 0-5 SEEN /lpf None Seen [facility] Urine total bilirubin detect ion by test stripOrdered By: Dewey Kam on 11-10-2024 Urine total bilirubin detection by test strip Negative Negative [facility] Urobilinogen Ql (U)Ordered B y: Dewey Kam on 11-10-2024 Urine urobilinogen measurement 1 mg/dl High Normal [facility] White blood cell countOrdere d By: Dewey Kam on 11-10-2024 White blood cell count 0-5 SEEN /hpf 0-5 [facility] pH (U)Ordered By: Dewey Kam on 11-10-2024 Urine pH 5.0 5.0 - 8.0 [facility] ALP [Catalytic activity/Vol] Ordered By: Henry Angel on 10-23-2024 Serum or plasma alkaline phosphatase measurement 58 U/L 45-117 [facility] ALT [Catalytic activity/Vol] Ordered By: Culbertson Angel on 10-23-2024 Serum or plasma alanine aminotransferase (ALT) measurement 19 U/L 16-61 [facility] Absolute neutrophil countOrd ered By: [facility]2024 Absolute neutrophil count 15.5 X10^3/uL High 2.0-7.7 [facility] Acute Abdomen Inc Cheston Acute Abdomen Inc Chest Normal [facility] Albumin [Mass/Vol]Ordered By : [facility] on 10-23-2024 Serum or plasma albumin measurement (mass/volume) 4.0 g/dL 3.2-5.0 [facility] Albumin to globulin ratioOrd ered By: [facility] on 10-23-2024 Albumin to globulin ratio 1.1 RATIO 0.9-2.4 [facility] Bacteria LM.HPF (Urine sed) [#/Area]Ordered By: Henrytabitha Ortiz on 10-23-2024 Urine sediment bacteria count by microscopy (number/high power field) 2+ /hpf None Seen [facility] Basophil percentageOrdered B y: Henry Angel on 10-23-2024 Basophil percentage 0.2 % 0-1 [facility] Bilirubin, totalOrdered By: [facility] on 10-23-2024 Bilirubin, total 0.40 mg/dL 0.20-1.00 [facility] Blood urea nitrogen (BUN)/cr eatinine ratioOrdered By: [facility] on 10-23-2024 Blood urea nitrogen (BUN)/creatinine ratio 14.4 RATIO 10-20 [facility] CBC W/Diff, Automatedon 09-26 Absolute Lymph 0.63 X10 3/uL Low 0.83-4.51 [facility] Comment on above: Performed By: #### L 100.0100, L500.4050, L501.2450, L503.6005 ####[facility] [address] [place], [address] Absolute Neut 15.5 X10 3/uL High 2.0-7.7 [facility] Comment on above: Performed By: #### L 100.0100, L500.4050, L501.2450, L503.6005 ####[facility] [address] [place], [address] Basophils/100 WBC (Bld) 0.2 % Normal 0-1 [facility] Comment on above: Performed By: #### L 100.0100, L500.4050, L501.2450, L503.6005 ####[facility] [address] [place], [address] Eosinophils/100 WBC (Bld) 0.1 % Normal 0-5 [facility] Comment on above: Performed By: #### L 100.0100, L500.4050, L501.2450, L503.6005 ####[facility] [address] [place], [address] Erythrocyte distribution width (RBC) [Ratio] 16.5 % High 11.6-14.6 [facility] Comment on above: Performed By: #### L 100.0100, L500.4050, L501.2450, L503.6005 ####[facility] [address] [place], [address] Hematocrit (Bld) [Volume fraction] 36.0 % Low 40-54 [facility] Comment on above: Performed By: #### L 100.0100, L500.4050, L501.2450, L503.6005 ####[facility] [address] [place], [address] Hemoglobin (Bld) [Mass/Vol] 12.1 g/dL Low 13.0-16.5 [facility] Comment on above: Performed By: #### L 100.0100, L500.4050, L501.2450, L503.6005 ####[facility] [address] [place], [address] IG% 1.000 High 0.0-0.9 [facility] Comment on above: Result Comment: IG% - Immature Granulocytes (promyelocytes, myelocytes andmetamyelocytes) > 1% indicates that a LEFT SHIFT is Present. Performed By: #### L 100.0100, L500.4050, L501.2450, L503.6005 ####[facility] [address] [place], [address] Lymphocytes/100 WBC (Bld) 3.8 % Low 19-41 [facility] Comment on above: Performed By: #### L 100.0100, L500.4050, L501.2450, L503.6005 ####[facility] [address] [place], [address] MCH (RBC) [Entitic mass] 28.6 pg Normal 27.0-32.0 [facility] Comment on above: Performed By: #### L 100.0100, L500.4050, L501.2450, L503.6005 ####[facility] [address] [place], [address] MCHC (RBC) [Mass/Vol] 33.6 g/dL Normal 32-36 [facility] Comment on above: Performed By: #### L 100.0100, L500.4050, L501.2450, L503.6005 ####[facility] [address] [place], [address] MCV (RBC) [Entitic vol] 85.1 fL Normal 80-94 [facility] Comment on above: Performed By: #### L 100.0100, L500.4050, L501.2450, L503.6005 ####[facility] [address] [place], [address] Monocytes/100 WBC (Bld) 2.4 % Normal 0-10 [facility] Comment on above: Performed By: #### L 100.0100, L500.4050, L501.2450, L503.6005 ####[facility] [address] [place], [address] Neutrophils/100 WBC (Bld) 92.5 % High 47-70 [facility] Comment on above: Performed By: #### L 100.0100, L500.4050, L501.2450, L503.6005 ####[facility] [address] [place], [address] Nucleated RBC (Bld) [#/Vol] 0 10*3/uL Normal 0-5 [facility] Comment on above: Performed By: #### L 100.0100, L500.4050, L501.2450, L503.6005 ####[facility] [address] [place], [address] Platelet mean volume (Bld) [Entitic vol] 9.0 fL Normal 6.2-12.0 [facility] Comment on above: Performed By: #### L 100.0100, L500.4050, L501.2450, L503.6005 ####[facility] [address] [place], [address] Platelets (Bld) [#/Vol] 475 10*3/uL High 150-450 [facility] Comment on above: Performed By: #### L 100.0100, L500.4050, L501.2450, L503.6005 ####[facility] [address] [place], [address] RBC (Bld) [#/Vol] 4.23 10*6/uL Low 4.6-6.2 [facility] Comment on above: Performed By: #### L 100.0100, L500.4050, L501.2450, L503.6005 ####[facility] [address] [place], [address] RDW SD 51.1 fl High 35.1-43.9 [facility] Comment on above: Performed By: #### L 100.0100, L500.4050, L501.2450, L503.6005 ####[facility] [address] [place], [address] WBC (Bld) [#/Vol] 16.7 10*3/uL High 4.4-11.0 [facility] Comment on above: Performed By: #### L 100.0100, L500.4050, L501.2450, L503.6005 ####[facility] [address] [place], [address] Calcium [Mass/Vol]Ordered By : Henry Ortiz on 10-23-2024 Serum or plasma calcium measurement (mass/volume) 10.0 mg/dL 8.5-10.1 [facility] Carbon dioxide measurementOr dered By: Henry Ortiz on 10-23-2024 Carbon dioxide measurement 20.0 mmol/L Low 21.0-32.0 [facility] Chloride measurementOrdered By: Henry Ortiz on 10-23-2024 Chloride measurement 109 mmol/L High 98-107 [facility] Clarity (U)Ordered By: Justin Ortiz on 10-23-2024 Urine clarity Clear Clear [facility] Color (U)Ordered By: Henry Ortiz on 10-23-2024 Urine color determination Yellow Yellow [facility] Comprehensive Metabolic Prof ilon 10-23-2024 Albumin [Mass/Vol] 4.0 g/dL Normal 3.2-5.0 [facility] Comment on above: Performed By: #### L 100.0100, L500.4050, L501.2450, L503.6005 ####[facility] [address] [place], [address] Albumin/Globulin [Mass ratio] 1.1 {ratio} Normal 0.9-2.4 [facility] Comment on above: Performed By: #### L 100.0100, L500.4050, L501.2450, L503.6005 ####[facility] [address] [place], [address] ALK P 58 U/L Normal 45-117 [facility] Comment on above: Performed By: #### L 100.0100, L500.4050, L501.2450, L503.6005 ####[facility] [address] [place], [address] ALT [Catalytic activity/Vol] 19 U/L Normal 16-61 [facility] Comment on above: Performed By: #### L 100.0100, L500.4050, L501.2450, L503.6005 ####[facility] [address] [place], [address] AST [Catalytic activity/Vol] 17 U/L Normal 15-37 [facility] Comment on above: Performed By: #### L 100.0100, L500.4050, L501.2450, L503.6005 ####[facility] [address] [place], [address] Bilirubin [Mass/Vol] 0.40 mg/dL Normal 0.20-1.00 [facility] Comment on above: Result Comment: For patients on eltrombopag therapy, use of Dimension [place] TBIL is not recommended. Performed By: #### L 100.0100, L500.4050, L501.2450, L503.6005 ####[facility] [address] [place], [address] BUN/CRE 14.4 RATIO Normal 10-20 [facility] Comment on above: Performed By: #### L 100.0100, L500.4050, L501.2450, L503.6005 ####[facility] [address] [place], [address] CA,Total 10.0 mg/dL Normal 8.5-10.1 [facility] Comment on above: Performed By: #### L 100.0100, L500.4050, L501.2450, L503.6005 ####[facility] [address] [place], [address] Chloride [Moles/Vol] 109 mmol/L High 98-107 [facility] Comment on above: Performed By: #### L 100.0100, L500.4050, L501.2450, L503.6005 ####[facility] [address] [place], [address] CO2 [Moles/Vol] 20.0 mmol/L Low 21.0-32.0 [facility] Comment on above: Performed By: #### L 100.0100, L500.4050, L501.2450, L503.6005 ####[facility] [address] [place], [address] Creatinine [Mass/Vol] 1.18 mg/dL Normal 0.70-1.30 [facility] Comment on above: Result Comment: The validity of the calculated GFR GFRAA in patients over70 years has not been determined. Clinical correlation isessential. Performed By: #### L 100.0100, L500.4050, L501.2450, L503.6005 ####[facility] [address] [place], [address] ECRCL 63.58 ml/min Normal [facility] Comment on above: Performed By: #### L 100.0100, L500.4050, L501.2450, L503.6005 ####[facility] [address] [place], [address] EST GFR - AA 79 mL/min Normal >60 [facility] Comment on above: Result Comment: Afri can [place] GFR Calc Performed By: #### L 100.0100, L500.4050, L501.2450, L503.6005 ####[facility] [address] [place], [address] GAP 13 Normal 5-15 [facility] Comment on above: Performed By: #### L 100.0100, L500.4050, L501.2450, L503.6005 ####[facility] [address] [place], [address] GFR/1.73 sq M.predicted among non-blacks MDRD (S/P/Bld) [Vol rate/Area] 66 mL/min/{1.73_m2} Normal >60 [facility] Comment on above: Result Comment: Non- GFR Calc Performed By: #### L 100.0100, L500.4050, L501.2450, L503.6005 ####[facility] [address] [place], [address] Globulin (S) [Mass/Vol] 3.8 g/dL Normal 2.2-4.2 [facility] Comment on above: Performed By: #### L 100.0100, L500.4050, L501.2450, L503.6005 ####[facility] [address] [place], [address] Glucose [Mass/Vol] 165 mg/dL High 74-106 [facility] Comment on above: Result Comment: Fast ing Glucose result greater than or equal to 126 mg/dLsuggests DIABETES MELLITUS per A.D.A. criteria. Performed By: #### L 100.0100, L500.4050, L501.2450, L503.6005 ####[facility] [address] [place], [address] Potassium [Moles/Vol] 3.5 mmol/L Normal 3.5-5.1 [facility] Comment on above: Performed By: #### L 100.0100, L500.4050, L501.2450, L503.6005 ####[facility] [address] [place], [address] Sodium [Moles/Vol] 142 mmol/L Normal 136-145 [facility] Comment on above: Performed By: #### L 100.0100, L500.4050, L501.2450, L503.6005 ####[facility] [address] [place], [address] T PROT 7.8 g/dL Normal 6.4-8.2 [facility] Comment on above: Performed By: #### L 100.0100, L500.4050, L501.2450, L503.6005 ####[facility] [address] [place], [address] Urea nitrogen [Mass/Vol] 17 mg/dL Normal 7-18 [facility] Comment on above: Performed By: #### L 100.0100, L500.4050, L501.2450, L503.6005 ####[facility] [address] [place], [address] Creatinine [Mass/Vol]Ordered By: Henry Ortiz on 10-23-2024 Serum or plasma creatinine measurement (mass/volume) 1.18 mg/dL 0.70-1.30 [facility] Emergency Department Summary on 10-23-2024 Emergency Department Summary Normal [facility] Eosinophil percentageOrdered By: Henry Ortiz on 10-23-2024 Eosinophil percentage 0.1 % 0-5 [facility] Epithelial cells.squamous LM Ql (Urine sed)Ordered By: Henry Ortiz on 10-23-2024 Squamous epithelial cells detection in urine sediment by light microscopy 0-5 SEEN /hpf 0-5 [facility] Erythrocyte distribution wid th (RBC) [Entitic vol]Ordered By: Henry Ortiz on 10-23-2024 Erythrocyte distribution width standard deviation 51.1 fl High 35.1-43.9 [facility] Erythrocyte distribution wid th (RBC) [Ratio]Ordered By: Henrytabitha Ortiz on 10-23-2024 Erythrocyte distribution width ratio 16.5 % High 11.6-14.6 [facility] Estimated glomerular filtrat ion rate (GFR) AmericanOrdered By: Henry Ortiz on 10-23-2024 Estimated glomerular filtration rate (GFR) 79 mL/min >60 [facility] Estimation of creatinine deion aranceOrdered By: Henry Ortiz on 10-23-2024 Estimation of creatinine clearance 63.58 ml/min [facility] Glomerular filtration rate ( GFR) estimationOrdered By: [facility] on 10-23-2024 Glomerular filtration rate (GFR) estimation 66 mL/min >60 [facility] Glucose measurementOrdered B y: Henrytabitha Ortiz on 10-23-2024 Glucose measurement 165 mg/dL High 74-106 [facility] Hematocrit Auto (Bld) [Volum e fraction]Ordered By: Henrytabitha Ortiz on 10-23-2024 Automated blood hematocrit (percentage) 36.0 % Low 40-54 [facility] Hemoglobin measurementOrdere d By: Henrytabitha Ortiz on 10-23-2024 Hemoglobin measurement 12.1 g/dL Low 13.0-16.5 [facility] Hyaline casts LM.LPF (Urine sed) [#/Area]Ordered By: Henrytabitha Ortiz on 10-23-2024 Urine sediment hyaline cast count by microscopy (number/low power field) 0-5 SEEN /lpf 0-5 [facility] Immature granulocytes/100 WB C Auto (Bld)Ordered By: Henry Ortiz on 10-23-2024 Automated immature granulocyte percentage 1.000 % High 0.0-0.9 [facility] Lactic Acidon 10-23-2024 Lactate [Moles/Vol] 2.8 mmol/L Invalid Interpretation Code 0.4-1.9 [facility] Comment on above: Order Comment: Y Result Comment: Crit ical Result(s) Called at: 11:55:49 10/23/2024 by: Layne Garces RN (ER). Results read back by same. Performed By: #### L 100.0100, L500.4050, L501.2450, L503.6005 ####[facility] [address] [place], [place], [address] Lactic acid measurementOrder ed By: Henry Ortiz on 10-23-2024 Lactic acid measurement 2.8 mmol/L High 0.4-2.0 [facility] Lipaseon 10-23-2024 Lipase [Catalytic activity/Vol] 49 U/L Normal 13-75 [facility] Comment on above: Result Comment: Edilberto conn note:LIPASE revised reference range effective 23.New Lipase methodology. Expected to produce lower valuesthan the previous assay method.NEW Reference Range: 13 - 75 U/L Performed By: #### L 100.0100, L500.4050, L501.2450, L503.6005 ####[facility] [address] [facility] [place], [address] Lipase measurementOrdered By : Henry Ortiz on 10-23-2024 Lipase measurement 49 U/L 13-75 [facility] Lymphocytes Auto (Unsp spec) [#/Vol]Ordered By: Henry Ortiz on 10-23-2024 Absolute lymphocyte count 0.63 X10^3/uL Low 0.83-4.51 [facility] Lymphocytes/100 WBC Auto (Un sp spec)Ordered By: Henry Ortiz on 10-23-2024 Automated lymphocyte count as percentage of total leukocytes 3.8 % Low 19-41 [facility] MCV (RBC) [Entitic vol]Order ed By: Henry Ortiz on 10-23-2024 MCV (mean corpuscular volume) determination 85.1 fL 80-94 [facility] Mean corpuscular hemoglobin (MCH) determinationOrdered By: Henry Ortiz on 10-23-2024 Mean corpuscular hemoglobin (MCH) determination 28.6 pg 27.0-32.0 [facility] Mean corpuscular hemoglobin concentration (MCHC) determinationOrdered By: Henry Ortiz on 10-23-2024 Mean corpuscular hemoglobin concentration (MCHC) determination 33.6 g/dL 32-36 [facility] Mean platelet volume determi nationOrdered By: Henry Ortiz on 10-23-2024 Mean platelet volume determination 9.0 fl 6.2-12.0 [facility] Microscopic analysis of urin e for red blood cells (RBC)Ordered By: Henry Ortiz on 10-23-2024 Microscopic analysis of urine for red blood cells (RBC) 10-25 SEEN /hpf 0-5 [facility] Monocyte percentageOrdered B y: Henry Ortiz on 10-23-2024 Monocyte percentage 2.4 % 0-10 [facility] Neutrophil percentageOrdered By: Henry Ortiz on 10-23-2024 Neutrophil percentage 92.5 % High 47-70 [facility] No Panel InformationOrdered By: Henry Ortiz on 10-23-2024 17 U/L 15-37 [facility] Nucleated red blood cell per centageOrdered By: Henry Ortiz on 10-23-2024 Nucleated red blood cell percentage 0 % 0-5 [facility] Platelet countOrdered By: Wolf Ortiz on 10-23-2024 Platelet count 475 K/mm3 High 150-450 [facility] Potassium measurementOrdered By: Henry Ortiz on 10-23-2024 Potassium measurement 3.5 mmol/L 3.5-5.1 [facility] Protein Test strip Ql (U)Ord ered By: Henry Ortiz on 10-23-2024 Urine protein assay by test strip, semi-quantitative 30 mg/dl High Negative [facility] RBC Auto (Bld) [#/Vol]Ordere d By: Henry Ortiz on 10-23-2024 Automated blood erythrocyte count 4.23 M/mm3 Low 4.6-6.2 [facility] Serum anion gap measurementO rdered By: Henry Ortiz on 10-23-2024 Serum anion gap measurement 13 5-15 [facility] Serum globulin measurementOr dered By: Henry Ortiz on 10-23-2024 Serum globulin measurement 3.8 g/dL 2.2-4.2 [facility] Sodium levelOrdered By: Kenrick Ortiz on 10-23-2024 Sodium level 142 mmol/L 136-145 [facility] Specific gravity (U) [Rel de nsity]Ordered By: Henry Ortiz on 10-23-2024 Urine specific gravity measurement 1.010 1.002-1.03 0 [facility] Total proteinOrdered By: Guy Ortiz on 10-23-2024 Total protein 7.8 g/dL 6.4-8.2 [facility] Urea nitrogen [Mass/Vol]Orde red By: Henry Ortiz on 10-23-2024 Serum or plasma urea nitrogen measurement (mass/volume) 17 mg/dL 7-18 [facility] Urinalysis, Completeon 10-23 BACTERIA 2+ /hpf Normal None Seen [facility] Comment on above: Order Comment: CLEAN CATCH Performed By: #### L 400.0001 ####[facility] [address] [place], [address] CAST,HYALINE 0-5 SEEN Normal 0-5 [facility] Comment on above: Order Comment: CLEAN CATCH Performed By: #### L 400.0001 ####[facility] [address] [place], [address] EPI,SQUAMOUS 0-5 SEEN Normal 0-5 [facility] Comment on above: Order Comment: CLEAN CATCH Performed By: #### L 400.0001 ####[facility] [address] [place], [address] RBC 10-25 SEEN Normal 0-5 [facility] Comment on above: Order Comment: CLEAN CATCH Performed By: #### L 400.0001 ####[facility] [address] [place], [address] Mucus Ql (Urine sed) 0 SEEN Normal [facility] Comment on above: Order Comment: CLEAN CATCH Performed By: #### L 400.0001 ####[facility] [address] [place], [address] WBC 0 SEEN Normal 0-5 [facility] Comment on above: Order Comment: CLEAN CATCH Performed By: #### L 400.0001 ####[facility] [address] [place], [address] Urine blood detectionOrdered By: Henry Ortiz on 10-23-2024 Urine blood detection 150 /ul High Negative [facility] Urine glucose detectionOrder ed By: Henry Ortiz on 10-23-2024 Urine glucose detection Normal mg/dl Normal [facility] Urine total bilirubin detect ion by test stripOrdered By: Henry Ortiz on 10-23-2024 Urine total bilirubin detection by test strip Negative Negative [facility] White blood cell (WBC) count Ordered By: Henry Ortiz on 10-23-2024 White blood cell (WBC) count 16.7 K/mm3 High 4.4-11.0 [facility] White blood cell countOrdere d By: Henry Ortiz on 10-23-2024 White blood cell count 0 SEEN /hpf [facility] pH (U)Ordered By: Henry young on 10-23-2024 Urine pH 6.5 5.0 - 8.0 [facility] Ferritinon 10-20-2024 Ferritin [Mass/Vol] 29 ng/mL Normal 26-388 [facility] Comment on above: Performed By: #### L 503.0105, L503.6150, L503.6550 ####[facility] [address] [place], [place], [address] Ferritin measurementOrdered By: Fredi Angeles on 10-20-2024 Ferritin measurement 29 ng/mL 26-388 [facility] Ironon 10-20-2024 Iron [Mass/Vol] 35 ug/dL Low 65-175 [facility] Comment on above: Performed By: #### L 503.0105, L503.6150, L503.6550 ####[facility] [address] [place], [place], [address] Iron (Unsp spec) [Mass/Mass] Ordered By: Fredi Angeles on 10-20-2024 Iron measurement (mass/mass) 35 ug/dL Low 65-175 [facility] Neurology Visit Reporton Neurology Visit Report Normal [facility] Vitamin B12on 10-20-2024 Cobalamin (Vitamin B12) [Mass/Vol] 338 pg/mL Normal 211-911 [facility] Comment on above: Performed By: #### L 503.0105, L503.5350, L503.6550 ####[facility] [address] [place], [place], [address] Vitamin B12 measurementOrder ed By: Fredi Angeles on 10-20-2024 Vitamin B12 measurement 338 pg/mL 211-911 [facility] ALP [Catalytic activity/Vol] Ordered By: [facility] Ernesto on 10-18-2024 Serum or plasma alkaline phosphatase measurement 40 U/L Low 45-117 [facility] ALT [Catalytic activity/Vol] Ordered By: [facility] Ernesto on 10-18-2024 Serum or plasma alanine aminotransferase (ALT) measurement 19 U/L 16-61 [facility] Absolute neutrophil countOrd ered By: [facility] Ernesto on 10-18-2024 Absolute neutrophil count 6.5 X10^3/uL 2.0-7.7 [facility] Albumin [Mass/Vol]Ordered By : [facility] Ernesto on 10-18-2024 Serum or plasma albumin measurement (mass/volume) 3.4 g/dL 3.2-5.0 [facility] Albumin to globulin ratioOrd ered By: [facility] Ernesto on 10-18-2024 Albumin to globulin ratio 1.1 RATIO 0.9-2.4 [facility] Basophil percentageOrdered B y: Iris Ernesto on 10-18-2024 Basophil percentage 0.4 % 0-1 [facility] Bilirubin, totalOrdered By: [facility] Ernesto on 10-18-2024 Bilirubin, total 0.50 mg/dL 0.20-1.00 [facility] Blood urea nitrogen (BUN)/cr eatinine ratioOrdered By: [facility] Ernesto on 10-18-2024 Blood urea nitrogen (BUN)/creatinine ratio 16.5 RATIO 10-20 [facility] CBC W/Diff, Automatedon 09-25 Absolute Lymph 1.03 X10 3/uL Normal 0.83-4.51 [facility] Comment on above: Performed By: #### L 100.0100, L500.4050, L501.5200, L501.9985 ####[facility] [address] [place], [address] Absolute Neut 6.5 X10 3/uL Normal 2.0-7.7 [facility] Comment on above: Performed By: #### L 100.0100, L500.4050, L501.5200, L501.9985 ####[facility] [address] [place], [address] Basophils/100 WBC (Bld) 0.4 % Normal 0-1 [facility] Comment on above: Performed By: #### L 100.0100, L500.4050, L501.5200, L501.9985 ####[facility] [address] [place], [address] Eosinophils/100 WBC (Bld) 0.2 % Normal 0-5 [facility] Comment on above: Performed By: #### L 100.0100, L500.4050, L501.5200, L501.9985 ####[facility] [address] [place], [address] Erythrocyte distribution width (RBC) [Ratio] 16.3 % High 11.6-14.6 [facility] Comment on above: Performed By: #### L 100.0100, L500.4050, L501.5200, L501.9985 ####[facility] [address] [place], [address] Hematocrit (Bld) [Volume fraction] 32.5 % Low 40-54 [facility] Comment on above: Performed By: #### L 100.0100, L500.4050, L501.5200, L501.9985 ####[facility] [address] [place], [address] Hemoglobin (Bld) [Mass/Vol] 10.7 g/dL Low 13.0-16.5 [facility] Comment on above: Performed By: #### L 100.0100, L500.4050, L501.5200, L501.9985 ####[facility] [address] [place], [address] IG% 0.600 Normal 0.0-0.9 [facility] Comment on above: Result Comment: IG% - Immature Granulocytes (promyelocytes, myelocytes andmetamyelocytes) > 1% indicates that a LEFT SHIFT is Present. Performed By: #### L 100.0100, L500.4050, L501.5200, L501.9985 ####[facility] [address] [place], [address] Lymphocytes/100 WBC (Bld) 12.1 % Low 19-41 [facility] Comment on above: Performed By: #### L 100.0100, L500.4050, L501.5200, L501.9985 ####[facility] [address] [place], [address] MCH (RBC) [Entitic mass] 28.9 pg Normal 27.0-32.0 [facility] Comment on above: Performed By: #### L 100.0100, L500.4050, L501.5200, L501.9985 ####[facility] [address] [place], [address] MCHC (RBC) [Mass/Vol] 32.9 g/dL Normal 32-36 [facility] Comment on above: Performed By: #### L 100.0100, L500.4050, L501.5200, L501.9985 ####[facility] [address] [place], [address] MCV (RBC) [Entitic vol] 87.8 fL Normal 80-94 [facility] Comment on above: Performed By: #### L 100.0100, L500.4050, L501.5200, L501.9985 ####[facility] [address] [place], [address] Monocytes/100 WBC (Bld) 10.1 % High 0-10 [facility] Comment on above: Performed By: #### L 100.0100, L500.4050, L501.5200, L501.9985 ####[facility] [address] [place], [address] Neutrophils/100 WBC (Bld) 76.6 % High 47-70 [facility] Comment on above: Performed By: #### L 100.0100, L500.4050, L501.5200, L501.9985 ####[facility] [address] [place], [address] Nucleated RBC (Bld) [#/Vol] 0 10*3/uL Normal 0-5 [facility] Comment on above: Performed By: #### L 100.0100, L500.4050, L501.5200, L501.9985 ####[facility] [address] [place], [address] Platelet mean volume (Bld) [Entitic vol] 8.9 fL Normal 6.2-12.0 [facility] Comment on above: Performed By: #### L 100.0100, L500.4050, L501.5200, L501.9985 ####[facility] [address] [place], [address] Platelets (Bld) [#/Vol] 360 10*3/uL Normal 150-450 [facility] Comment on above: Performed By: #### L 100.0100, L500.4050, L501.5200, L501.9985 ####[facility] [address] [place], [address] RBC (Bld) [#/Vol] 3.70 10*6/uL Low 4.6-6.2 [facility] Comment on above: Performed By: #### L 100.0100, L500.4050, L501.5200, L501.9985 ####[facility] [address] [place], [address] RDW SD 53.0 fl High 35.1-43.9 [facility] Comment on above: Performed By: #### L 100.0100, L500.4050, L501.5200, L501.9985 ####[facility] [address] [place], [address] WBC (Bld) [#/Vol] 8.5 10*3/uL Normal 4.4-11.0 [facility] Comment on above: Performed By: #### L 100.0100, L500.4050, L501.5200, L501.9985 ####[facility] [address] [place], [address] Calcium [Mass/Vol]Ordered By : Iris Orozco on 10-18-2024 Serum or plasma calcium measurement (mass/volume) 9.3 mg/dL 8.5-10.1 [facility] Carbon dioxide measurementOr dered By: Iris Ernesto on 10-18-2024 Carbon dioxide measurement 22.0 mmol/L 21.0-32.0 [facility] [facility] Chloride measurementOrdered By: Iris Orozco on 10-18-2024 Chloride measurement 111 mmol/L High 98-107 [facility] Comprehensive Metabolic Prof ilon 10-18-2024 Albumin [Mass/Vol] 3.4 g/dL Normal 3.2-5.0 [facility] Comment on above: Performed By: #### L 100.0100, L500.4050, L501.5200, L501.9985 ####[facility] [address] [place], [address] Albumin/Globulin [Mass ratio] 1.1 {ratio} Normal 0.9-2.4 [facility] Comment on above: Performed By: #### L 100.0100, L500.4050, L501.5200, L501.9985 ####[facility] [address] [place], [address] ALK P 40 U/L Low 45-117 [facility] Comment on above: Performed By: #### L 100.0100, L500.4050, L501.5200, L501.9985 ####[facility] [address] [place], [address] ALT [Catalytic activity/Vol] 19 U/L Normal 16-61 [facility] Comment on above: Performed By: #### L 100.0100, L500.4050, L501.5200, L501.9985 ####[facility] [address] [place], [address] AST [Catalytic activity/Vol] 29 U/L Normal 15-37 [facility] Comment on above: Performed By: #### L 100.0100, L500.4050, L501.5200, L501.9985 ####[facility] [address] [place], [address] Bilirubin [Mass/Vol] 0.50 mg/dL Normal 0.20-1.00 [facility] Comment on above: Result Comment: For patients on eltrombopag therapy, use of Dimension [place] TBIL is not recommended. Performed By: #### L 100.0100, L500.4050, L501.5200, L501.9985 ####[facility] [address] [place], [address] BUN/CRE 16.5 RATIO Normal 10-20 [facility] Comment on above: Performed By: #### L 100.0100, L500.4050, L501.5200, L501.9985 ####[facility] [address] [place], [address] CA,Total 9.3 mg/dL Normal 8.5-10.1 [facility] Comment on above: Performed By: #### L 100.0100, L500.4050, L501.5200, L501.9985 ####[facility] [address] [place], [address] Chloride [Moles/Vol] 111 mmol/L High 98-107 [facility] Comment on above: Performed By: #### L 100.0100, L500.4050, L501.5200, L501.9985 ####[facility] [address] [place], [address] CO2 [Moles/Vol] 22.0 mmol/L Normal 21.0-32.0 [facility] Comment on above: Performed By: #### L 100.0100, L500.4050, L501.5200, L501.9985 ####[facility] [address] [place], [address] Creatinine [Mass/Vol] 1.03 mg/dL Normal 0.70-1.30 [facility] Comment on above: Result Comment: The validity of the calculated GFR GFRAA in patients over70 years has not been determined. Clinical correlation isessential. Performed By: #### L 100.0100, L500.4050, L501.5200, L501.9985 ####[facility] [address] [place], [address] ECRCL 72.84 ml/min Normal [facility] Comment on above: Performed By: #### L 100.0100, L500.4050, L501.5200, L501.9985 ####[facility] [address] [place], [address] EST GFR - AA 93 mL/min Normal >60 [facility] Comment on above: Result Comment: Afri can [place] GFR Calc Performed By: #### L 100.0100, L500.4050, L501.5200, L501.9985 ####[facility] [address] [place], [address] GAP 6 Normal 5-15 [facility] Comment on above: Performed By: #### L 100.0100, L500.4050, L501.5200, L501.9985 ####[facility] [address] [place], [address] GFR/1.73 sq M.predicted among non-blacks MDRD (S/P/Bld) [Vol rate/Area] 77 mL/min/{1.73_m2} Normal >60 [facility] Comment on above: Result Comment: Non- GFR Calc Performed By: #### L 100.0100, L500.4050, L501.5200, L501.9985 ####[facility] [address] [place], [address] Globulin (S) [Mass/Vol] 3.1 g/dL Normal 2.2-4.2 [facility] Comment on above: Performed By: #### L 100.0100, L500.4050, L501.5200, L501.9985 ####[facility] [address] [place], [address] Glucose [Mass/Vol] 87 mg/dL Normal 74-106 [facility] Comment on above: Performed By: #### L 100.0100, L500.4050, L501.5200, L501.9985 ####[facility] [address] [place], [address] Potassium [Moles/Vol] 3.5 mmol/L Normal 3.5-5.1 [facility] Comment on above: Performed By: #### L 100.0100, L500.4050, L501.5200, L501.9985 ####[facility] [address] [place], [address] Sodium [Moles/Vol] 139 mmol/L Normal 136-145 [facility] Comment on above: Performed By: #### L 100.0100, L500.4050, L501.5200, L501.9985 ####[facility] [address] [place], [address] T PROT 6.5 g/dL Normal 6.4-8.2 [facility] Comment on above: Performed By: #### L 100.0100, L500.4050, L501.5200, L501.9985 ####[facility] [address] [place], [address] Urea nitrogen [Mass/Vol] 17 mg/dL Normal 7-18 [facility] Comment on above: Performed By: #### L 100.0100, L500.4050, L501.5200, L501.9985 ####[facility] [address] [place], [address] Creatinine [Mass/Vol]Ordered By: Iris Orozco on 10-18-2024 Serum or plasma creatinine measurement (mass/volume) 1.03 mg/dL 0.70-1.30 [facility] Eosinophil percentageOrdered By: Ernesto on 10-18-2024 Eosinophil percentage 0.2 % 0-5 [facility] Erythrocyte distribution wid th (RBC) [Entitic vol]Ordered By: Iris Ernesto on 10-18-2024 Erythrocyte distribution width standard deviation 53.0 fl High 35.1-43.9 [facility] Erythrocyte distribution wid th (RBC) [Ratio]Ordered By: Iris Ernesto on 10-18-2024 Erythrocyte distribution width ratio 16.3 % High 11.6-14.6 [facility] Estimated glomerular filtrat ion rate (GFR) AmericanOrdered By: Iris Ernesto on 10-18-2024 Estimated glomerular filtration rate (GFR) 93 mL/min >60 [facility] Estimation of creatinine deion aranceOrdered By: Iris Orozco on 10-18-2024 Estimation of creatinine clearance 72.84 ml/min [facility] Glomerular filtration rate ( GFR) estimationOrdered By: Iris Ernesto on 10-18-2024 Glomerular filtration rate (GFR) estimation 77 mL/min >60 [facility] Glucose measurementOrdered B y: Iris Orozco on 10-18-2024 Glucose measurement 87 mg/dL 74-106 [facility] HbA1c (Bld) [Mass fraction]O rdered By: Iris Orozco on 10-18-2024 Hemoglobin A1c percentage 4.8 % 3.8-5.6 [facility] Hematocrit Auto (Bld) [Volum e fraction]Ordered By: Iris Orozco on 10-18-2024 Automated blood hematocrit (percentage) 32.5 % Low 40-54 [facility] Hemoglobin A1con 10-18-2024 HbA1c (Bld) [Mass fraction] 4.8 % Normal 3.8-5.6 [facility] Comment on above: Result Comment: Norm al < 5.7 % Prediabetic 5.7 - 6.4 % Diabetic >or= 6.5 % Please note range changes. Performed By: #### L 100.0100, L500.4050, L501.5200, L501.9985 ####[facility] [address] [facility] [place], [place], [id number] Hemoglobin measurementOrdere d By: Iris Orozco on 10-18-2024 Hemoglobin measurement 10.7 g/dL Low 13.0-16.5 [facility] Immature granulocytes/100 WB C Auto (Bld)Ordered By: Iris Ernesto on 10-18-2024 Automated immature granulocyte percentage 0.600 % 0.0-0.9 [facility] Lymphocytes Auto (Unsp spec) [#/Vol]Ordered By: Iris Ernesto on 10-18-2024 Absolute lymphocyte count 1.03 X10^3/uL 0.83-4.51 [facility] Lymphocytes/100 WBC Auto (Un sp spec)Ordered By: [facility] Ernesto on 10-18-2024 Automated lymphocyte count as percentage of total leukocytes 12.1 % Low 19-41 [facility] MCV (RBC) [Entitic vol]Order ed By: Iris Orozco on 10-18-2024 MCV (mean corpuscular volume) determination 87.8 fL 80-94 [facility] Magnesiumon 10-18-2024 Magnesium [Mass/Vol] 2.1 mg/dL Normal 1.6-2.6 [facility] Comment on above: Performed By: #### L 100.0100, L500.4050, L501.5200, L501.9985 ####[facility] [address] [place], [place], [id number] Magnesium measurementOrdered By: Mer Frias on 10-18-2024 Magnesium measurement 2.1 mg/dL 1.6-2.6 [facility] Mean corpuscular hemoglobin (MCH) determinationOrdered By: Iris Orozco on 10-18-2024 Mean corpuscular hemoglobin (MCH) determination 28.9 pg 27.0-32.0 [facility] Mean corpuscular hemoglobin concentration (MCHC) determinationOrdered By: Ernesto on 10-18-2024 Mean corpuscular hemoglobin concentration (MCHC) determination 32.9 g/dL 32-36 [facility] Mean platelet volume determi nationOrdered By: Riis Ernesto on 10-18-2024 Mean platelet volume determination 8.9 fl 6.2-12.0 [facility] Monocyte percentageOrdered B y: Iris White on 10-18-2024 Monocyte percentage 10.1 % High 0-10 [facility] Neutrophil percentageOrdered By: White on 10-18-2024 Neutrophil percentage 76.6 % High 47-70 [facility] No Panel InformationOrdered By: Iris Orozco on 10-18-2024 29 U/L 15-37 [facility] Nucleated red blood cell per centageOrdered By: Ernesto on 10-18-2024 Nucleated red blood cell percentage 0 % 0-5 [facility] Phosphoruson 10-18-2024 Phosphate [Mass/Vol] 2.8 mg/dL Normal 2.5-4.9 [facility] Comment on above: Performed By: #### L 501.2300 ####[facility] [address] [place], [place], [address] Phosphorus measurementOrdere d By: Mer Frias on 10-18-2024 Phosphorus measurement 2.8 mg/dL 2.5-4.9 [facility] Platelet countOrdered By: Vijaya Orozco on 10-18-2024 Platelet count 360 K/mm3 150-450 [facility] Potassium measurementOrdered By: Iris Orozco on 10-18-2024 Potassium measurement 3.5 mmol/L 3.5-5.1 [facility] RBC Auto (Bld) [#/Vol]Ordere d By: Iris Ernesto on 10-18-2024 Automated blood erythrocyte count 3.70 M/mm3 Low 4.6-6.2 [facility] Serum anion gap measurementO rdered By: Iris Ernesto on 10-18-2024 Serum anion gap measurement 6 5-15 [facility] Serum globulin measurementOr dered By: Iris Orozco on 10-18-2024 Serum globulin measurement 3.1 g/dL 2.2-4.2 [facility] Sodium levelOrdered By: Gonzalou mn White on 10-18-2024 Sodium level 139 mmol/L 136-145 [facility] Total proteinOrdered By: Gonzalo umn White on 10-18-2024 Total protein 6.5 g/dL 6.4-8.2 [facility] Urea nitrogen [Mass/Vol]Orde red By: Iris Orozco on 10-18-2024 Serum or plasma urea nitrogen measurement (mass/volume) 17 mg/dL 7-18 [facility] White blood cell (WBC) count Ordered By: Iris Orozco on 10-18-2024 White blood cell (WBC) count 8.5 K/mm3 4.4-11.0 [facility] CBC W/Diff, Automatedon 09-25 Absolute Lymph 0.79 X10 3/uL Low 0.83-4.51 [facility] Comment on above: Performed By: #### L 100.0100, L503.6005, L500.4050, L501.2450, M100.7900 ####[facility] [address] [place], [address] Absolute Neut 15.5 X10 3/uL High 2.0-7.7 [facility] Comment on above: Performed By: #### L 100.0100, L503.6005, L500.4050, L501.2450, M100.7900 ####[facility] [address] [place], [address] Basophils/100 WBC (Bld) 0.1 % Normal 0-1 [facility] Comment on above: Performed By: #### L 100.0100, L503.6005, L500.4050, L501.2450, M100.7900 ####[facility] [address] [place], [address] Eosinophils/100 WBC (Bld) 0.2 % Normal 0-5 [facility] Comment on above: Performed By: #### L 100.0100, L503.6005, L500.4050, L501.2450, M100.7900 ####[facility] [address] [place], [address] Erythrocyte distribution width (RBC) [Ratio] 15.8 % High 11.6-14.6 [facility] Comment on above: Performed By: #### L 100.0100, L503.6005, L500.4050, L501.2450, M100.7900 ####[facility] [address] [place], [address] Hematocrit (Bld) [Volume fraction] 35.4 % Low 40-54 [facility] Comment on above: Performed By: #### L 100.0100, L503.6005, L500.4050, L501.2450, M100.7900 ####[facility] [address] [place], [address] Hemoglobin (Bld) [Mass/Vol] 12.4 g/dL Low 13.0-16.5 [facility] Comment on above: Performed By: #### L 100.0100, L503.6005, L500.4050, L501.2450, M100.7900 ####[facility] [address] [place], [address] IG% 0.600 Normal 0.0-0.9 [facility] Comment on above: Result Comment: IG% - Immature Granulocytes (promyelocytes, myelocytes andmetamyelocytes) > 1% indicates that a LEFT SHIFT is Present. Performed By: #### L 100.0100, L503.6005, L500.4050, L501.2450, M100.7900 ####[facility] [address] [place], [address] Lymphocytes/100 WBC (Bld) 4.5 % Low 19-41 [facility] Comment on above: Performed By: #### L 100.0100, L503.6005, L500.4050, L501.2450, M100.7900 ####[facility] [address] [place], [address] MCH (RBC) [Entitic mass] 29.5 pg Normal 27.0-32.0 [facility] Comment on above: Performed By: #### L 100.0100, L503.6005, L500.4050, L501.2450, M100.7900 ####[facility] [address] [place], [address] MCHC (RBC) [Mass/Vol] 35.0 g/dL Normal 32-36 [facility] Comment on above: Performed By: #### L 100.0100, L503.6005, L500.4050, L501.2450, M100.7900 ####[facility] [address] [place], [address] MCV (RBC) [Entitic vol] 84.3 fL Normal 80-94 [facility] Comment on above: Performed By: #### L 100.0100, L503.6005, L500.4050, L501.2450, M100.7900 ####[facility] [address] [place], [address] Monocytes/100 WBC (Bld) 6.5 % Normal 0-10 [facility] Comment on above: Performed By: #### L 100.0100, L503.6005, L500.4050, L501.2450, M100.7900 ####[facility] [address] [place], [address] Neutrophils/100 WBC (Bld) 88.1 % High 47-70 [facility] Comment on above: Performed By: #### L 100.0100, L503.6005, L500.4050, L501.2450, M100.7900 ####[facility] [address] [place], [address] Nucleated RBC (Bld) [#/Vol] 0 10*3/uL Normal 0-5 [facility] Comment on above: Performed By: #### L 100.0100, L503.6005, L500.4050, L501.2450, M100.7900 ####[facility] [address] [place], [address] Platelet mean volume (Bld) [Entitic vol] 9.1 fL Normal 6.2-12.0 [facility] Comment on above: Performed By: #### L 100.0100, L503.6005, L500.4050, L501.2450, M100.7900 ####[facility] [address] [place], [address] Platelets (Bld) [#/Vol] 458 10*3/uL High 150-450 [facility] Comment on above: Performed By: #### L 100.0100, L503.6005, L500.4050, L501.2450, M100.7900 ####[facility] [address] [place], [address] RBC (Bld) [#/Vol] 4.20 10*6/uL Low 4.6-6.2 [facility] Comment on above: Performed By: #### L 100.0100, L503.6005, L500.4050, L501.2450, M100.7900 ####[facility] [address] [place], [address] RDW SD 47.7 fl High 35.1-43.9 [facility] Comment on above: Performed By: #### L 100.0100, L503.6005, L500.4050, L501.2450, M100.7900 ####[facility] [address] [place], [address] WBC (Bld) [#/Vol] 17.6 10*3/uL High 4.4-11.0 [facility] Comment on above: Performed By: #### L 100.0100, L503.6005, L500.4050, L501.2450, M100.7900 ####[facility] [address] [place], [address] CTA Abd/Pelvis W/WO Contrast on 10-17-2024 CTA Abd/Pelvis W/WO Contrast Normal [facility] Comprehensive Metabolic Prof ilon 10-17-2024 Albumin [Mass/Vol] 4.0 g/dL Normal 3.2-5.0 [facility] Comment on above: Performed By: #### L 100.0100, L503.6005, L500.4050, L501.2450, M100.7900 ####[facility] [address] [place], [address] Albumin/Globulin [Mass ratio] 1.1 {ratio} Normal 0.9-2.4 [facility] Comment on above: Performed By: #### L 100.0100, L503.6005, L500.4050, L501.2450, M100.7900 ####[facility] [address] [place], [address] ALK P 49 U/L Normal 45-117 [facility] Comment on above: Performed By: #### L 100.0100, L503.6005, L500.4050, L501.2450, M100.7900 ####[facility] [address] [place], [address] ALT [Catalytic activity/Vol] 18 U/L Normal 16-61 [facility] Comment on above: Performed By: #### L 100.0100, L503.6005, L500.4050, L501.2450, M100.7900 ####[facility] [address] [place], [address] AST [Catalytic activity/Vol] 22 U/L Normal 15-37 [facility] Comment on above: Performed By: #### L 100.0100, L503.6005, L500.4050, L501.2450, M100.7900 ####[facility] [address] [place], [address] Bilirubin [Mass/Vol] 0.40 mg/dL Normal 0.20-1.00 [facility] Comment on above: Result Comment: For patients on eltrombopag therapy, use of Dimension [place] TBIL is not recommended. Performed By: #### L 100.0100, L503.6005, L500.4050, L501.2450, M100.7900 ####[facility] [address] [place], [address] BUN/CRE 11.4 RATIO Normal 10-20 [facility] Comment on above: Performed By: #### L 100.0100, L503.6005, L500.4050, L501.2450, M100.7900 ####[facility] [address] [place], [address] CA,Total 10.5 mg/dL High 8.5-10.1 [facility] Comment on above: Performed By: #### L 100.0100, L503.6005, L500.4050, L501.2450, M100.7900 ####[facility] [address] [place], [address] Chloride [Moles/Vol] 104 mmol/L Normal 98-107 [facility] Comment on above: Performed By: #### L 100.0100, L503.6005, L500.4050, L501.2450, M100.7900 ####[facility] [address] [place], [address] CO2 [Moles/Vol] 20.0 mmol/L Low 21.0-32.0 [facility] Comment on above: Performed By: #### L 100.0100, L503.6005, L500.4050, L501.2450, M100.7900 ####[facility] [address] [place], [address] Creatinine [Mass/Vol] 1.14 mg/dL Normal 0.70-1.30 [facility] Comment on above: Result Comment: The validity of the calculated GFR GFRAA in patients over70 years has not been determined. Clinical correlation isessential. Performed By: #### L 100.0100, L503.6005, L500.4050, L501.2450, M100.7900 ####[facility] [address] [place], [address] ECRCL 65.81 ml/min Normal [facility] Comment on above: Performed By: #### L 100.0100, L503.6005, L500.4050, L501.2450, M100.7900 ####[facility] [address] [place], [address] EST GFR - AA 83 mL/min Normal >60 [facility] Comment on above: Result Comment: Afri can [place] GFR Calc Performed By: #### L 100.0100, L503.6005, L500.4050, L501.2450, M100.7900 ####[facility] [address] [place], [address] GAP 12 Normal 5-15 [facility] Comment on above: Performed By: #### L 100.0100, L503.6005, L500.4050, L501.2450, M100.7900 ####[facility] [address] [place], [address] GFR/1.73 sq M.predicted among non-blacks MDRD (S/P/Bld) [Vol rate/Area] 68 mL/min/{1.73_m2} Normal >60 [facility] Comment on above: Result Comment: Non- GFR Calc Performed By: #### L 100.0100, L503.6005, L500.4050, L501.2450, M100.7900 ####[facility] [address] [place], [address] Globulin (S) [Mass/Vol] 3.5 g/dL Normal 2.2-4.2 [facility] Comment on above: Performed By: #### L 100.0100, L503.6005, L500.4050, L501.2450, M100.7900 ####[facility] [address] [place], [address] Glucose [Mass/Vol] 149 mg/dL High 74-106 [facility] Comment on above: Result Comment: Fast ing Glucose result greater than or equal to 126 mg/dLsuggests DIABETES MELLITUS per A.D.A. criteria. Performed By: #### L 100.0100, L503.6005, L500.4050, L501.2450, M100.7900 ####[facility] [address] [place], [address] Potassium [Moles/Vol] 3.6 mmol/L Normal 3.5-5.1 [facility] Comment on above: Performed By: #### L 100.0100, L503.6005, L500.4050, L501.2450, M100.7900 ####[facility] [address] [place], [address] Sodium [Moles/Vol] 136 mmol/L Normal 136-145 [facility] Comment on above: Performed By: #### L 100.0100, L503.6005, L500.4050, L501.2450, M100.7900 ####[facility] [address] [place], [address] T PROT 7.5 g/dL Normal 6.4-8.2 [facility] Comment on above: Performed By: #### L 100.0100, L503.6005, L500.4050, L501.2450, M100.7900 ####[facility] [address] [place], [address] Urea nitrogen [Mass/Vol] 13 mg/dL Normal 7-18 [facility] Comment on above: Performed By: #### L 100.0100, L503.6005, L500.4050, L501.2450, M100.7900 ####[facility] [address] [place], [address] Emergency Department Summary on 10-17-2024 Emergency Department Summary Normal [facility] H AND P Exam - Hospitaliston 10-17-2024 H&P Exam - Hospitalist Normal [facility] HH, Hemoglobin AND Hematocri ton 10-17-2024 Hematocrit (Bld) [Volume fraction] 29.8 % Low 40-54 [facility] Comment on above: Performed By: #### L 100.0600 ####[facility] [address] [place], [address] Hemoglobin (Bld) [Mass/Vol] 10.3 g/dL Low 13.0-16.5 [facility] Comment on above: Performed By: #### L 100.0600 ####[facility] [address] [place], [address] Hematocrit (Bld) [Volume fraction] 29.5 % Low 40-54 [facility] Comment on above: Performed By: #### L 100.0600 ####[facility] [address] [place], [address] Hemoglobin (Bld) [Mass/Vol] 10.1 g/dL Low 13.0-16.5 [facility] Comment on above: Performed By: #### L 100.0600 ####[facility] [address] [place], [address] Hematocrit (Bld) [Volume fraction] 31.7 % Low 40-54 [facility] Comment on above: Performed By: #### L 100.0600 ####[facility] [address] [place], [address] Hemoglobin (Bld) [Mass/Vol] 10.5 g/dL Low 13.0-16.5 [facility] Comment on above: Performed By: #### L 100.0600 ####[facility] [address] [place], [address] Lactic Acidon 10-17-2024 Lactate [Moles/Vol] 0.7 mmol/L Normal 0.4-1.9 [facility] Comment on above: Performed By: #### L 503.6005 ####[facility] [address] [place], [address] Lactate [Moles/Vol] 2.4 mmol/L Invalid Interpretation Code 0.4-1.9 [facility] Comment on above: Order Comment: Y Result Comment: Crit ical Result(s) Called at: 03:45:31 10/17/2024 by: Domo. butch Donovan RN ED. Results read back by same. Performed By: #### L 100.0100, L503.6005, L500.4050, L501.2450, M100.7900 ####[facility] [address] [place], [place], [address] Lactic acid measurementOrder ed By: Tarun Jim on 10-17-2024 Lactic acid measurement 0.7 mmol/L 0.4-2.0 [facility] Lipaseon 10-17-2024 Lipase [Catalytic activity/Vol] 32 U/L Normal 13-75 [facility] Comment on above: Result Comment: Edilberto conn note:LIPASE revised reference range effective 23.New Lipase methodology. Expected to produce lower valuesthan the previous assay method.NEW Reference Range: 13 - 75 U/L Performed By: #### L 100.0100, L503.6005, L500.4050, L501.2450, M100.7900 ####[facility] [address] [place], [address] Lipase measurementOrdered By : Tarun Jim on 10-17-2024 Lipase measurement 32 U/L 13-75 [facility] Magnesiumon 10-17-2024 Magnesium [Mass/Vol] 1.2 mg/dL Low 1.6-2.6 [facility] Comment on above: Order Comment: Comme nts: May add to ED labsComments: may add to ED labs Performed By: #### L 501.2300, L501.5200, L505.5000, L509.7000 ####[facility] [address] [place], [address] No Panel InformationOrdered By: Iris Orozco on 10-17-2024 [facility] Phosphoruson 10-17-2024 Phosphate [Mass/Vol] 3.0 mg/dL Normal 2.5-4.9 [facility] Comment on above: Order Comment: Comme nts: May add to ED labsComments: may add to ED labs Performed By: #### L 501.2300, L501.5200, L505.5000, L509.7000 ####[facility] [address] [place], [address] Procalcitoninon 10-17-2024 Procalcitonin 0.05 ng/mL Normal 0.00-0.09 [facility] Comment on above: Result Comment: A pr ocalcitonin (PCT) level above 2.0 ng/mL on the first day of ICU admission is associated with a high risk for progression to severe sepsis and/or septic shock. A PCT level below 0.5 ng/mL on the first day of ICU admission is associated with a low risk for progression to severe and/or septic shock. Note: Concentrations <0.5 ng/mL do not exclude an infection on account of localized infections (without systemic signs) which can be associated with such low concentrations, or a systemic infection in its initial stages (<6 hours). Furthermore, increased procalcitonin can occur without infection. PCT concentrations between 0.5 and 2.0 ng/mL should be interpreted taking into account the patient's history. It is recommended to retest PCT within 6-24 hours if any concentrations <2 ng/mL are obtained. Performed By: #### L 501.2300, L501.5200, L505.5000, L509.7000 ####[facility] [address] [facility] [place], [place], [id number] Procalcitonin [Mass/Vol]Orde red By: Iris Orozco on 10-17-2024 Serum procalcitonin measurement 0.05 ng/mL 0.00-0.09 [facility] Quantitative urine opiates m easurementOrdered By: Iris Orozco on 10-17-2024 Quantitative urine opiates measurement Positive Abnormal [facility] Stool Occult Blood iFOBon STOB Positive Normal [facility] Comment on above: Performed By: #### L 100.0100, L503.6005, L500.4050, L501.2450, M100.7900 ####[facility] [address] [facility] [place], [place], [id number] Urine Drug Screen (VISTA)on 10-17-2024 AMPHETAMINES Negative Normal <1000 ng/mL [facility] Comment on above: Performed By: #### L 501.2300, L501.5200, L505.5000, L509.7000 ####[facility] [address] [place], [address] BARBITIURATES Negative Normal < 200 ng/mL [facility] Comment on above: Performed By: #### L 501.2300, L501.5200, L505.5000, L509.7000 ####[facility] [address] [place], [address] BENZODIAZIPINE Negative Normal < 200 ng/mL [facility] Comment on above: Performed By: #### L 501.2300, L501.5200, L505.5000, L509.7000 ####[facility] [address] [place], [address] COCAINE Negative Normal < 300 ng/mL [facility] Comment on above: Performed By: #### L 501.2300, L501.5200, L505.5000, L509.7000 ####[facility] [address] [place], [address] ECSTACY Negative Normal < 500 ng/mL [facility] Comment on above: Performed By: #### L 501.2300, L501.5200, L505.5000, L509.7000 ####[facility] [address] [place], [address] METHADONE Negative Normal < 300 ng/mL [facility] Comment on above: Performed By: #### L 501.2300, L501.5200, L505.5000, L509.7000 ####[facility] [address] [place], [address] OPIATES Positive Abnormal < 300 ng/mL [facility] Comment on above: Performed By: #### L 501.2300, L501.5200, L505.5000, L509.7000 ####[facility] [address] [place], [address] PCP Negative Normal < 25 ng/mL [facility] Comment on above: Performed By: #### L 501.2300, L501.5200, L505.5000, L509.7000 ####[facility] [address] [place], [address] THC Positive Abnormal < 50 ng/mL [facility] Comment on above: Performed By: #### L 501.2300, L501.5200, L505.5000, L509.7000 ####[facility] [address] [place], [address] VISTA UDS PH 7 Normal [facility] Comment on above: Performed By: #### L 501.2300, L501.5200, L505.5000, L509.7000 ####[facility] [address] [place], [address] Urine amphetamine measuremen tOrdered By: Iris Orozco on 10-17-2024 Urine amphetamine measurement Negative < 25 ng/mL [facility] ALP [Catalytic activity/Vol] Ordered By: Trey Ritchie on 10-16-2024 Serum or plasma alkaline phosphatase measurement 56 U/L 45-117 [facility] ALT [Catalytic activity/Vol] Ordered By: Trey Ritchie on 10-16-2024 Serum or plasma alanine aminotransferase (ALT) measurement 18 U/L 16-61 [facility] Absolute neutrophil countOrd ered By: Trey Ritchie on 10-16-2024 Absolute neutrophil count 18.7 X10^3/uL High 2.0-7.7 [facility] Albumin [Mass/Vol]Ordered By : Trey Ritchie on 10-16-2024 Serum or plasma albumin measurement (mass/volume) 4.1 g/dL 3.2-5.0 [facility] Albumin to globulin ratioOrd ered By: Trey Ritchie on 10-16-2024 Albumin to globulin ratio 1.1 RATIO 0.9-2.4 [facility] Automated lymphocyte count a s percentage of total leukocytesOrdered By: Trey Ritchie on 10-16-2024 Automated lymphocyte count as percentage of total leukocytes 3.3 % 0-10 [facility] Basophil percentageOrdered B y: Trey Ritchie on 10-16-2024 Basophil percentage 0.2 % 0-1 [facility] Bilirubin, totalOrdered By: Trey Ritchie on 10-16-2024 Bilirubin, total 0.40 mg/dL 0.20-1.00 [facility] Blood urea nitrogen (BUN)/cr eatinine ratioOrdered By: Trey Ritchie on 10-16-2024 Blood urea nitrogen (BUN)/creatinine ratio 9.3 RATIO Low 10-20 [facility] CBC W/Diff, Automatedon 09-25 Absolute Lymph 0.67 X10 3/uL Low 0.83-4.51 [facility] Comment on above: Performed By: #### L 500.4050, L501.2450, L100.0100 ####[facility] [address] [place], [address] Absolute Neut 18.7 X10 3/uL High 2.0-7.7 [facility] Comment on above: Performed By: #### L 500.4050, L501.2450, L100.0100 ####[facility] [address] [place], [address] Basophils/100 WBC (Bld) 0.2 % Normal 0-1 [facility] Comment on above: Performed By: #### L 500.4050, L501.2450, L100.0100 ####[facility] [address] [place], [address] Eosinophils/100 WBC (Bld) 0.1 % Normal 0-5 [facility] Comment on above: Performed By: #### L 500.4050, L501.2450, L100.0100 ####[facility] [address] [place], [address] Erythrocyte distribution width (RBC) [Ratio] 15.5 % High 11.6-14.6 [facility] Comment on above: Performed By: #### L 500.4050, L501.2450, L100.0100 ####[facility] [address] [place], [address] Hematocrit (Bld) [Volume fraction] 37.7 % Low 40-54 [facility] Comment on above: Performed By: #### L 500.4050, L501.2450, L100.0100 ####[facility] [address] [place], [address] Hemoglobin (Bld) [Mass/Vol] 12.7 g/dL Low 13.0-16.5 [facility] Comment on above: Performed By: #### L 500.4050, L501.2450, L100.0100 ####[facility] [address] [place], [address] IG% 0.800 Normal 0.0-0.9 [facility] Comment on above: Result Comment: IG% - Immature Granulocytes (promyelocytes, myelocytes andmetamyelocytes) > 1% indicates that a LEFT SHIFT is Present. Performed By: #### L 500.4050, L501.2450, L100.0100 ####[facility] [address] [place], [address] Lymphocytes/100 WBC (Bld) 3.3 % Low 19-41 [facility] Comment on above: Performed By: #### L 500.4050, L501.2450, L100.0100 ####[facility] [address] [place], [address] MCH (RBC) [Entitic mass] 28.9 pg Normal 27.0-32.0 [facility] Comment on above: Performed By: #### L 500.4050, L501.2450, L100.0100 ####[facility] [address] [place], [address] MCHC (RBC) [Mass/Vol] 33.7 g/dL Normal 32-36 [facility] Comment on above: Performed By: #### L 500.4050, L501.2450, L100.0100 ####[facility] [address] [place], [address] MCV (RBC) [Entitic vol] 85.7 fL Normal 80-94 [facility] Comment on above: Performed By: #### L 500.4050, L501.2450, L100.0100 ####[facility] [address] [place], [address] Monocytes/100 WBC (Bld) 3.3 % Normal 0-10 [facility] Comment on above: Performed By: #### L 500.4050, L501.2450, L100.0100 ####[facility] [address] [place], [address] Neutrophils/100 WBC (Bld) 92.3 % High 47-70 [facility] Comment on above: Performed By: #### L 500.4050, L501.2450, L100.0100 ####[facility] [address] [place], [address] Nucleated RBC (Bld) [#/Vol] 0 10*3/uL Normal 0-5 [facility] Comment on above: Performed By: #### L 500.4050, L501.2450, L100.0100 ####[facility] [address] [place], [address] Platelet mean volume (Bld) [Entitic vol] 8.9 fL Normal 6.2-12.0 [facility] Comment on above: Performed By: #### L 500.4050, L501.2450, L100.0100 ####[facility] [address] [place], [address] Platelets (Bld) [#/Vol] 504 10*3/uL High 150-450 [facility] Comment on above: Performed By: #### L 500.4050, L501.2450, L100.0100 ####[facility] [address] [place], [address] RBC (Bld) [#/Vol] 4.40 10*6/uL Low 4.6-6.2 [facility] Comment on above: Performed By: #### L 500.4050, L501.2450, L100.0100 ####[facility] [address] [place], [address] RDW SD 48.6 fl High 35.1-43.9 [facility] Comment on above: Performed By: #### L 500.4050, L501.2450, L100.0100 ####[facility] [address] [place], [address] WBC (Bld) [#/Vol] 20.3 10*3/uL High 4.4-11.0 [facility] Comment on above: Performed By: #### L 500.4050, L501.2450, L100.0100 ####[facility] [address] [place], [address] Calcium [Mass/Vol]Ordered By : Trey Ritchie on 10-16-2024 Serum or plasma calcium measurement (mass/volume) 9.8 mg/dL 8.5-10.1 [facility] Carbon dioxide measurementOr dered By: Trey Ritchie on 10-16-2024 Carbon dioxide measurement 15.0 mmol/L Low 21.0-32.0 [facility] Chloride measurementOrdered By: Trey Ritchie on 10-16-2024 Chloride measurement 103 mmol/L 98-107 [facility] Comprehensive Metabolic Prof ilon 10-16-2024 Albumin [Mass/Vol] 4.1 g/dL Normal 3.2-5.0 [facility] Comment on above: Performed By: #### L 500.4050, L501.2450, L100.0100 ####[facility] [address] [place], [address] Albumin/Globulin [Mass ratio] 1.1 {ratio} Normal 0.9-2.4 [facility] Comment on above: Performed By: #### L 500.4050, L501.2450, L100.0100 ####[facility] [address] [place], [address] ALK P 56 U/L Normal 45-117 [facility] Comment on above: Performed By: #### L 500.4050, L501.2450, L100.0100 ####[facility] [address] [place], [address] ALT [Catalytic activity/Vol] 18 U/L Normal 16-61 [facility] Comment on above: Performed By: #### L 500.4050, L501.2450, L100.0100 ####[facility] [address] [place], [address] AST [Catalytic activity/Vol] 21 U/L Normal 15-37 [facility] Comment on above: Performed By: #### L 500.4050, L501.2450, L100.0100 ####[facility] [address] [place], [address] Bilirubin [Mass/Vol] 0.40 mg/dL Normal 0.20-1.00 [facility] Comment on above: Result Comment: For patients on eltrombopag therapy, use of Dimension [place] TBIL is not recommended. Performed By: #### L 500.4050, L501.2450, L100.0100 ####[facility] [address] [place], [address] BUN/CRE 9.3 RATIO Low 10-20 [facility] Comment on above: Performed By: #### L 500.4050, L501.2450, L100.0100 ####[facility] [address] [place], [address] CA,Total 9.8 mg/dL Normal 8.5-10.1 [facility] Comment on above: Performed By: #### L 500.4050, L501.2450, L100.0100 ####[facility] [address] [place], [address] Chloride [Moles/Vol] 103 mmol/L Normal 98-107 [facility] Comment on above: Performed By: #### L 500.4050, L501.2450, L100.0100 ####[facility] [address] [place], [address] CO2 [Moles/Vol] 15.0 mmol/L Low 21.0-32.0 [facility] Comment on above: Performed By: #### L 500.4050, L501.2450, L100.0100 ####[facility] [address] [place], [address] Creatinine [Mass/Vol] 1.08 mg/dL Normal 0.70-1.30 [facility] Comment on above: Result Comment: The validity of the calculated GFR GFRAA in patients over70 years has not been determined. Clinical correlation isessential. Performed By: #### L 500.4050, L501.2450, L100.0100 ####[facility] [address] [place], [address] ECRCL 69.47 ml/min Normal [facility] Comment on above: Performed By: #### L 500.4050, L501.2450, L100.0100 ####[facility] [address] [place], [address] EST GFR - AA 88 mL/min Normal >60 [facility] Comment on above: Result Comment: Afri can [place] GFR Calc Performed By: #### L 500.4050, L501.2450, L100.0100 ####[facility] [address] [place], [address] GAP 14 Normal 5-15 [facility] Comment on above: Performed By: #### L 500.4050, L501.2450, L100.0100 ####[facility] [address] [place], [address] GFR/1.73 sq M.predicted among non-blacks MDRD (S/P/Bld) [Vol rate/Area] 73 mL/min/{1.73_m2} Normal >60 [facility] Comment on above: Result Comment: Non- GFR Calc Performed By: #### L 500.4050, L501.2450, L100.0100 ####[facility] [address] [place], [address] Globulin (S) [Mass/Vol] 3.6 g/dL Normal 2.2-4.2 [facility] Comment on above: Performed By: #### L 500.4050, L501.2450, L100.0100 ####[facility] [address] [place], [address] Glucose [Mass/Vol] 178 mg/dL High 74-106 [facility] Comment on above: Result Comment: Fast ing Glucose result greater than or equal to 126 mg/dLsuggests DIABETES MELLITUS per A.D.A. criteria. Performed By: #### L 500.4050, L501.2450, L100.0100 ####[facility] [address] [place], [address] Potassium [Moles/Vol] 3.6 mmol/L Normal 3.5-5.1 [facility] Comment on above: Performed By: #### L 500.4050, L501.2450, L100.0100 ####[facility] [address] [place], [address] Sodium [Moles/Vol] 132 mmol/L Low 136-145 [facility] Comment on above: Performed By: #### L 500.4050, L501.2450, L100.0100 ####[facility] [address] [place], [address] T PROT 7.7 g/dL Normal 6.4-8.2 [facility] Comment on above: Performed By: #### L 500.4050, L501.2450, L100.0100 ####[facility] [address] [place], [address] Urea nitrogen [Mass/Vol] 10 mg/dL Normal 7-18 [facility] Comment on above: Performed By: #### L 500.4050, L501.2450, L100.0100 ####[facility] [address] [place], [address] Creatinine [Mass/Vol]Ordered By: Trey Ritchie on 10-16-2024 Serum or plasma creatinine measurement (mass/volume) 1.08 mg/dL 0.70-1.30 [facility] Emergency Department Summary on 10-16-2024 Emergency Department Summary Normal [facility] Eosinophil percentageOrdered By: Trey Ritchie on 10-16-2024 Eosinophil percentage 0.1 % 0-5 [facility] Erythrocyte distribution wid th (RBC) [Entitic vol]Ordered By: Trey Ritchie on 10-16-2024 Erythrocyte distribution width standard deviation 48.6 fl High 35.1-43.9 [facility] Erythrocyte distribution wid th (RBC) [Ratio]Ordered By: Trey Ritchie on 10-16-2024 Erythrocyte distribution width ratio 15.5 % High 11.6-14.6 [facility] Estimated glomerular filtrat ion rate (GFR) AmericanOrdered By: Trey Ritchie on 10-16-2024 Estimated glomerular filtration rate (GFR) 88 mL/min >60 [facility] Estimation of creatinine deion aranceOrdered By: Trey Ritchie on 10-16-2024 Estimation of creatinine clearance 69.47 ml/min [facility] Glomerular filtration rate ( GFR) estimationOrdered By: Trey Ritchie on 10-16-2024 Glomerular filtration rate (GFR) estimation 73 mL/min >60 [facility] Glucose measurementOrdered B y: Trey Ritchie on 10-16-2024 Glucose measurement 178 mg/dL High 74-106 [facility] Hematocrit Auto (Bld) [Volum e fraction]Ordered By: Trey Ritchie on 10-16-2024 Automated blood hematocrit (percentage) 37.7 % Low 40-54 [facility] Hemoglobin measurementOrdere d By: Trey Ritchie on 10-16-2024 Hemoglobin measurement 12.7 g/dL Low 13.0-16.5 [facility] Immature granulocytes/100 WB C Auto (Bld)Ordered By: Trey Ritchie on 10-16-2024 Automated immature granulocyte percentage 0.800 % 0.0-0.9 [facility] Lipaseon 10-16-2024 Lipase [Catalytic activity/Vol] 36 U/L Normal 13-75 [facility] Comment on above: Result Comment: Edilberto conn note:LIPASE revised reference range effective 23.New Lipase methodology. Expected to produce lower valuesthan the previous assay method.NEW Reference Range: 13 - 75 U/L Performed By: #### L 500.4050, L501.2450, L100.0100 ####[facility] [address] [place], [address] Lipase measurementOrdered By : Trey Ritchie on 10-16-2024 Lipase measurement 36 U/L 13-75 [facility] Lymphocytes Auto (Unsp spec) [#/Vol]Ordered By: Trey Ritchie on 10-16-2024 Absolute lymphocyte count 0.67 X10^3/uL Low 0.83-4.51 [facility] MCV (RBC) [Entitic vol]Order ed By: Trey Ritchie on 10-16-2024 MCV (mean corpuscular volume) determination 85.7 fL 80-94 [facility] Mean corpuscular hemoglobin (MCH) determinationOrdered By: Trey Ritchie on 10-16-2024 Mean corpuscular hemoglobin (MCH) determination 28.9 pg 27.0-32.0 [facility] Mean corpuscular hemoglobin concentration (MCHC) determinationOrdered By: Trey Ritchie on 10-16-2024 Mean corpuscular hemoglobin concentration (MCHC) determination 33.7 g/dL 32-36 [facility] Mean platelet volume determi nationOrdered By: Trey Ritchie on 10-16-2024 Mean platelet volume determination 8.9 fl 6.2-12.0 [facility] Neutrophil percentageOrdered By: Trey Ritchie on 10-16-2024 Neutrophil percentage 92.3 % High 47-70 [facility] No Panel InformationOrdered By: Trey Ritchie on 10-16-2024 21 U/L 15-37 [facility] Nucleated red blood cell per centageOrdered By: Trey Ritchie on 10-16-2024 Nucleated red blood cell percentage 0 % 0-5 [facility] Platelet countOrdered By: Emma Ritchie on 10-16-2024 Platelet count 504 K/mm3 High 150-450 [facility] Potassium measurementOrdered By: Trey Ritchie on 10-16-2024 Potassium measurement 3.6 mmol/L 3.5-5.1 [facility] RBC Auto (Bld) [#/Vol]Ordere d By: Trey Ritchie on 10-16-2024 Automated blood erythrocyte count 4.40 M/mm3 Low 4.6-6.2 [facility] Serum anion gap measurementO rdered By: Trey Ritchie on 10-16-2024 Serum anion gap measurement 14 5-15 [facility] Serum globulin measurementOr dered By: Trey Ritchie on 10-16-2024 Serum globulin measurement 3.6 g/dL 2.2-4.2 [facility] Sodium levelOrdered By: Trey Ritchie on 10-16-2024 Sodium level 132 mmol/L Low 136-145 [facility] Total proteinOrdered By: Aline Ritchie on 10-16-2024 Total protein 7.7 g/dL 6.4-8.2 [facility] Urea nitrogen [Mass/Vol]Orde red By: Trey Ritchie on 10-16-2024 Serum or plasma urea nitrogen measurement (mass/volume) 10 mg/dL 7-18 [facility] White blood cell (WBC) count Ordered By: Trey Ritchie on 10-16-2024 White blood cell (WBC) count 20.3 K/mm3 High 4.4-11.0 [facility] 12 Lead EKGon 10-03-2024 12 Lead EKG Normal [facility] Absolute neutrophil countOrd ered By: Dada Chung on 10-03-2024 Absolute neutrophil count 6.9 X10^3/uL 2.0-7.7 [facility] BNP (brain natriuretic pepti de measurement)Ordered By: Dada Chung on 10-03-2024 BNP (brain natriuretic peptide measurement) 24.1 pg/mL 0-100 [facility] BNP,B-Type NATRIURETIC PEPTI Tala 10-03-2024 Natriuretic peptide B (Bld) [Mass/Vol] 24.1 pg/mL Normal 0-100 [facility] Comment on above: Performed By: #### L 100.0100, L503.6620, L500.2500, L501.5200, L501.5425 ####[facility] [address] [place], [address] Basic Metabolic Profile (BMP )on 10-03-2024 BUN/CRE 9.1 RATIO Low 10- [facility] [facility] Comment on above: Order Comment: 1Y Performed By: #### L 100.0100, L503.6620, L500.2500, L501.5200, L501.5425 ####[facility] [address] [place], [address] CA,Total 8.9 mg/dL Normal 8.5-10.1 [facility] Comment on above: Order Comment: 1Y Performed By: #### L 100.0100, L503.6620, L500.2500, L501.5200, L501.5425 ####[facility] [address] [place], [address] Chloride [Moles/Vol] 105 mmol/L Normal 98-107 [facility] Comment on above: Order Comment: 1Y Performed By: #### L 100.0100, L503.6620, L500.2500, L501.5200, L501.5425 ####[facility] [address] [place], [address] CO2 [Moles/Vol] 22.0 mmol/L Normal 21.0-32.0 [facility] Comment on above: Order Comment: 1Y Performed By: #### L 100.0100, L503.6620, L500.2500, L501.5200, L501.5425 ####[facility] [address] [place], [address] Creatinine [Mass/Vol] 1.10 mg/dL Normal 0.70-1.30 [facility] Comment on above: Order Comment: 1Y Result Comment: The validity of the calculated GFR GFRAA in patients over70 years has not been determined. Clinical correlation isessential. Performed By: #### L 100.0100, L503.6620, L500.2500, L501.5200, L501.5425 ####[facility] [address] [place], [address] ECRCL 68.21 ml/min Normal [facility] Comment on above: Order Comment: 1Y Performed By: #### L 100.0100, L503.6620, L500.2500, L501.5200, L501.5425 ####[facility] [address] [place], [address] EST GFR - AA 86 mL/min Normal >60 [facility] Comment on above: Order Comment: 1Y Result Comment: Afri can [place] GFR Calc Performed By: #### L 100.0100, L503.6620, L500.2500, L501.5200, L501.5425 ####[facility] [address] [place], [address] GAP 6 Normal 5-15 [facility] Comment on above: Order Comment: 1Y Performed By: #### L 100.0100, L503.6620, L500.2500, L501.5200, L501.5425 ####[facility] [address] [place], [address] GFR/1.73 sq M.predicted among non-blacks MDRD (S/P/Bld) [Vol rate/Area] 71 mL/min/{1.73_m2} Normal >60 [facility] Comment on above: Order Comment: 1Y Result Comment: Non- GFR Calc Performed By: #### L 100.0100, L503.6620, L500.2500, L501.5200, L501.5425 ####[facility] [address] [place], [address] Glucose [Mass/Vol] 153 mg/dL High 74-106 [facility] Comment on above: Order Comment: 1Y Result Comment: Fast ing Glucose result greater than or equal to 126 mg/dLsuggests DIABETES MELLITUS per A.D.A. criteria. Performed By: #### L 100.0100, L503.6620, L500.2500, L501.5200, L501.5425 ####[facility] [address] [place], [address] Potassium [Moles/Vol] 3.6 mmol/L Normal 3.5-5.1 [facility] Comment on above: Order Comment: 1Y Performed By: #### L 100.0100, L503.6620, L500.2500, L501.5200, L501.5425 ####[facility] [address] [place], [address] Sodium [Moles/Vol] 133 mmol/L Low 136-145 [facility] Comment on above: Order Comment: 1Y Performed By: #### L 100.0100, L503.6620, L500.2500, L501.5200, L501.5425 ####[facility] [address] [place], [address] Urea nitrogen [Mass/Vol] 10 mg/dL Normal 7-18 [facility] Comment on above: Order Comment: 1Y Performed By: #### L 100.0100, L503.6620, L500.2500, L501.5200, L501.5425 ####[facility] [address] [place], [address] Basophil percentageOrdered B y: Dada Rdzcristin on 10-03-2024 Basophil percentage 0.5 % 0-1 [facility] Blood urea nitrogen (BUN)/cr eatinine ratioOrdered By: Dada Kendellcristin on 10-03-2024 Blood urea nitrogen (BUN)/creatinine ratio 9.1 RATIO Low 10-20 [facility] CBC W/Diff, Automatedon - Absolute Lymph 2.12 X10 3/uL Normal 0.83-4.51 [facility] Comment on above: Performed By: #### L 100.0100, L503.6620, L500.2500, L501.5200, L501.5425 ####[facility] [address] [place], [address] Absolute Neut 6.9 X10 3/uL Normal 2.0-7.7 [facility] Comment on above: Performed By: #### L 100.0100, L503.6620, L500.2500, L501.5200, L501.5425 ####[facility] [address] [place], [address] Basophils/100 WBC (Bld) 0.5 % Normal 0-1 [facility] Comment on above: Performed By: #### L 100.0100, L503.6620, L500.2500, L501.5200, L501.5425 ####[facility] [address] [place], [address] Eosinophils/100 WBC (Bld) 2.6 % Normal 0-5 [facility] Comment on above: Performed By: #### L 100.0100, L503.6620, L500.2500, L501.5200, L501.5425 ####[facility] [address] [place], [address] Erythrocyte distribution width (RBC) [Ratio] 15.8 % High 11.6-14.6 [facility] Comment on above: Performed By: #### L 100.0100, L503.6620, L500.2500, L501.5200, L501.5425 ####[facility] [address] [place], [address] Hematocrit (Bld) [Volume fraction] 35.5 % Low 40-54 [facility] Comment on above: Performed By: #### L 100.0100, L503.6620, L500.2500, L501.5200, L501.5425 ####[facility] [address] [place], [address] Hemoglobin (Bld) [Mass/Vol] 12.1 g/dL Low 13.0-16.5 [facility] Comment on above: Performed By: #### L 100.0100, L503.6620, L500.2500, L501.5200, L501.5425 ####[facility] [address] [place], [address] IG% 0.600 Normal 0.0-0.9 [facility] Comment on above: Result Comment: IG% - Immature Granulocytes (promyelocytes, myelocytes andmetamyelocytes) > 1% indicates that a LEFT SHIFT is Present. Performed By: #### L 100.0100, L503.6620, L500.2500, L501.5200, L501.5425 ####[facility] [address] [place], [address] Lymphocytes/100 WBC (Bld) 21.1 % Normal 19-41 [facility] Comment on above: Performed By: #### L 100.0100, L503.6620, L500.2500, L501.5200, L501.5425 ####[facility] [address] [place], [address] MCH (RBC) [Entitic mass] 29.3 pg Normal 27.0-32.0 [facility] Comment on above: Performed By: #### L 100.0100, L503.6620, L500.2500, L501.5200, L501.5425 ####[facility] [address] [place], [address] MCHC (RBC) [Mass/Vol] 34.1 g/dL Normal 32-36 [facility] Comment on above: Performed By: #### L 100.0100, L503.6620, L500.2500, L501.5200, L501.5425 ####[facility] [address] [place], [address] MCV (RBC) [Entitic vol] 86.0 fL Normal 80-94 [facility] Comment on above: Performed By: #### L 100.0100, L503.6620, L500.2500, L501.5200, L501.5425 ####[facility] [address] [place], [address] Monocytes/100 WBC (Bld) 6.7 % Normal 0-10 [facility] Comment on above: Performed By: #### L 100.0100, L503.6620, L500.2500, L501.5200, L501.5425 ####[facility] [address] [place], [address] Neutrophils/100 WBC (Bld) 68.5 % Normal 47-70 [facility] Comment on above: Performed By: #### L 100.0100, L503.6620, L500.2500, L501.5200, L501.5425 ####[facility] [address] [place], [address] Nucleated RBC (Bld) [#/Vol] 0 10*3/uL Normal 0-5 [facility] Comment on above: Performed By: #### L 100.0100, L503.6620, L500.2500, L501.5200, L501.5425 ####[facility] [address] [place], [address] Platelet mean volume (Bld) [Entitic vol] 8.9 fL Normal 6.2-12.0 [facility] Comment on above: Performed By: #### L 100.0100, L503.6620, L500.2500, L501.5200, L501.5425 ####[facility] [address] [place], [address] Platelets (Bld) [#/Vol] 412 10*3/uL Normal 150-450 [facility] Comment on above: Performed By: #### L 100.0100, L503.6620, L500.2500, L501.5200, L501.5425 ####[facility] [address] [place], [address] RBC (Bld) [#/Vol] 4.13 10*6/uL Low 4.6-6.2 [facility] Comment on above: Performed By: #### L 100.0100, L503.6620, L500.2500, L501.5200, L501.5425 ####[facility] [address] [place], [address] RDW SD 49.2 fl High 35.1-43.9 [facility] Comment on above: Performed By: #### L 100.0100, L503.6620, L500.2500, L501.5200, L501.5425 ####[facility] [address] [place], [address] WBC (Bld) [#/Vol] 10.1 10*3/uL Normal 4.4-11.0 [facility] Comment on above: Performed By: #### L 100.0100, L503.0820, L500.2500, L501.5200, L501.5463 ####[facility] [address] [place], [address] Calcium [Mass/Vol]Ordered By : Dada Chung on 10-03-2024 Serum or plasma calcium measurement (mass/volume) 8.9 mg/dL 8.5-10.1 [facility] Carbon dioxide measurementOr dered By: Dada Chung on 10-03-2024 Carbon dioxide measurement 22.0 mmol/L 21.0-32.0 [facility] Chest 1 View (Portable)on Chest 1 View (Portable) Normal [facility] Chloride measurementOrdered By: Dada Chung on 10-03-2024 Chloride measurement 105 mmol/L 98-107 [facility] Creatinine [Mass/Vol]Ordered By: Dada Chung on 10-03-2024 Serum or plasma creatinine measurement (mass/volume) 1.10 mg/dL 0.70-1.30 [facility] Emergency Department Summary on 10-03-2024 Emergency Department Summary Normal [facility] Eosinophil percentageOrdered By: Dada Chung on 10-03-2024 Eosinophil percentage 2.6 % 0-5 [facility] Erythrocyte distribution wid th (RBC) [Entitic vol]Ordered By: Dada Chung on 10-03-2024 Erythrocyte distribution width standard deviation 49.2 fl High 35.1-43.9 [facility] Erythrocyte distribution wid th (RBC) [Ratio]Ordered By: Dada Chung on 10-03-2024 Erythrocyte distribution width ratio 15.8 % High 11.6-14.6 [facility] Estimated glomerular filtrat ion rate (GFR) AmericanOrdered By: Dada Chung on 10-03-2024 Estimated glomerular filtration rate (GFR) 86 mL/min >60 [facility] Estimation of creatinine deion aranceOrdered By: Dada Chung on 10-03-2024 Estimation of creatinine clearance 68.21 ml/min [facility] Glomerular filtration rate ( GFR) estimationOrdered By: Dada Chung on 10-03-2024 Glomerular filtration rate (GFR) estimation 71 mL/min >60 [facility] Glucose measurementOrdered B y: Dada Chung on 10-03-2024 Glucose measurement 153 mg/dL High 74-106 [facility] Hematocrit Auto (Bld) [Volum e fraction]Ordered By: Dada Rdzcristin on 10-03-2024 Automated blood hematocrit (percentage) 35.5 % Low 40-54 [facility] Hemoglobin measurementOrdere d By: Dada Chung on 10-03-2024 Hemoglobin measurement 12.1 g/dL Low 13.0-16.5 [facility] Immature granulocytes/100 WB C Auto (Bld)Ordered By: Dada Rdzcristin on 10-03-2024 Automated immature granulocyte percentage 0.600 % 0.0-0.9 [facility] L501.4020on 10-03-2024 TROPONIN-I HS 8 pg/mL Normal 3.0-78.0 [facility] Comment on above: Result Comment: Plea se Note: New Test Units and Gender Specific Reference Ranges. For more information see Policy Stat Procedure [place] High Sensitivity Troponin (TNIH) and attachments. Performed By: #### L 501.4020 ####[facility] [address] [facility] [address] [place], [address] L501.5425on 10-03-2024 TROPONIN-I HS 6 pg/mL Normal 3.0-78.0 [facility] Comment on above: Order Comment: 1Y Result Comment: Plea se Note: New Test Units and Gender Specific Reference Ranges. For more information see Policy Stat Procedure [place] High Sensitivity Troponin (TNIH) and attachments. Performed By: #### L 100.0100, L503.6620, L500.2500, L501.5200, L501.5425 ####[facility] [address] [place], [address] Lymphocytes Auto (Unsp spec) [#/Vol]Ordered By: Dada Chung on 10-03-2024 Absolute lymphocyte count 2.12 X10^3/uL 0.83-4.51 [facility] Lymphocytes/100 WBC Auto (Un sp spec)Ordered By: Dada Chung on 10-03-2024 Automated lymphocyte count as percentage of total leukocytes 21.1 % 19-41 [facility] MCV (RBC) [Entitic vol]Order ed By: Dada Chung on 10-03-2024 MCV (mean corpuscular volume) determination 86.0 fL 80-94 [facility] Magnesiumon 10-03-2024 Magnesium [Mass/Vol] 1.2 mg/dL Low 1.6-2.6 [facility] Comment on above: Order Comment: 1Y Performed By: #### L 100.0100, L503.6620, L500.2500, L501.5200, L501.5425 ####[facility] [address] [place], [address] Magnesium measurementOrdered By: Dada Chung on 10-03-2024 Magnesium measurement 1.2 mg/dL Low 1.6-2.6 [facility] Mean corpuscular hemoglobin (MCH) determinationOrdered By: Dada Chung on 10-03-2024 Mean corpuscular hemoglobin (MCH) determination 29.3 pg 27.0-32.0 [facility] Mean corpuscular hemoglobin concentration (MCHC) determinationOrdered By: Dada Chung on 10-03-2024 Mean corpuscular hemoglobin concentration (MCHC) determination 34.1 g/dL 32-36 [facility] Mean platelet volume determi nationOrdered By: Dada Chung on 10-03-2024 Mean platelet volume determination 8.9 fl 6.2-12.0 [facility] Monocyte percentageOrdered B y: Dada Chung on 10-03-2024 Monocyte percentage 6.7 % 0-10 [facility] Neutrophil percentageOrdered By: Dada Chung on 10-03-2024 Neutrophil percentage 68.5 % 47-70 [facility] Nucleated red blood cell per centageOrdered By: Dada Chung on 10-03-2024 Nucleated red blood cell percentage 0 % 0-5 [facility] Platelet countOrdered By: Hema Chung on 10-03-2024 Platelet count 412 K/mm3 150-450 [facility] Potassium measurementOrdered By: Dada Chung on 10-03-2024 Potassium measurement 3.6 mmol/L 3.5-5.1 [facility] RBC Auto (Bld) [#/Vol]Ordere d By: Dada Chung on 10-03-2024 Automated blood erythrocyte count 4.13 M/mm3 Low 4.6-6.2 [facility] Serum anion gap measurementO rdered By: Dada Chung on 10-03-2024 Serum anion gap measurement 6 5-15 [facility] Sodium levelOrdered By: Dada Chung on 10-03-2024 Sodium level 133 mmol/L Low 136-145 [facility] Troponin IOrdered By: Dada noonan on 10-03-2024 Troponin I 8 pg/mL 3.0-78.0 [facility] Urea nitrogen [Mass/Vol]Orde red By: Dada Chung on 10-03-2024 Serum or plasma urea nitrogen measurement (mass/volume) 10 mg/dL 7-18 [facility] White blood cell (WBC) count Ordered By: Dada Chung on 10-03-2024 White blood cell (WBC) count 10.1 K/mm3 4.4-11.0 [facility] Office Visit Reporton 2023 Office Visit Report Normal [facility] Urine Cultureon 09-05-2024 URC Below infection leve l. Mixed Gram Positive Organisms [place] Count 1000-10,000 MIXC Mixed contaminants. Submit a new specimen if indicated. Normal [facility] Comment on above: Performed By: #### M 100.2200 ####[facility] [address] [place], [address] ALP [Catalytic activity/Vol] Ordered By: Iris Orozco on 09-03-2024 Serum or plasma alkaline phosphatase measurement 44 U/L Low 45-117 [facility] ALT [Catalytic activity/Vol] Ordered By: Iris Orozco on 09-03-2024 Serum or plasma alanine aminotransferase (ALT) measurement 18 U/L 16-61 [facility] Absolute neutrophil countOrd ered By: Iris Orozco on 09-03-2024 Absolute neutrophil count 12.9 X10^3/uL High 2.0-7.7 [facility] Albumin [Mass/Vol]Ordered By : Iris Ernesto on 09-03-2024 Serum or plasma albumin measurement (mass/volume) 3.7 g/dL 3.2-5.0 [facility] Albumin to globulin ratioOrd ered By: Iris Orozco on 09-03-2024 Albumin to globulin ratio 1.2 RATIO 0.9-2.4 [facility] Basophil percentageOrdered B y: Iris Orozco on 09-03-2024 Basophil percentage 0.1 % 0-1 [facility] Bilirubin, totalOrdered By: Iris Ernesto on 09-03-2024 Bilirubin, total 0.30 mg/dL 0.20-1.00 [facility] Blood urea nitrogen (BUN)/cr eatinine ratioOrdered By: Iris Ernesto on 09-03-2024 Blood urea nitrogen (BUN)/creatinine ratio 14.0 RATIO 10-20 [facility] CBC W/Diff, Automatedon 08-24 PATH REV Reviewed Normal [facility] Comment on above: Result Comment: Neut rophilic leukocytosis.Normocytic anemia.Clinical correlation necessary.Chaz Kat M.D. 09/03/24 AMENDED REPORT 09/03/24 [id number] PATH REV previously reported as: January Performed By: #### L 100.0100, L500.4050 ####[facility] [address] [place], [address] Calcium [Mass/Vol]Ordered By : Iris Orozco on 09-03-2024 Serum or plasma calcium measurement (mass/volume) 9.5 mg/dL 8.5-10.1 [facility] Carbon dioxide measurementOr dered By: Iris Orozco on 09-03-2024 Carbon dioxide measurement 21.0 mmol/L 21.0-32.0 [facility] Chloride measurementOrdered By: Iris Orozco on 09-03-2024 Chloride measurement 106 mmol/L 98-107 [facility] Comprehensive Metabolic Prof ilon 09-03-2024 Albumin [Mass/Vol] 3.7 g/dL Normal 3.2-5.0 [facility] Comment on above: Performed By: #### L 100.0100, L500.4050 ####[facility] [address] [place], [address] Albumin/Globulin [Mass ratio] 1.2 {ratio} Normal 0.9-2.4 [facility] Comment on above: Performed By: #### L 100.0100, L500.4050 ####[facility] [address] [place], [address] ALK P 44 U/L Low 45-117 [facility] Comment on above: Performed By: #### L 100.0100, L500.4050 ####[facility] [address] [place], [address] ALT [Catalytic activity/Vol] 18 U/L Normal 16-61 [facility] Comment on above: Performed By: #### L 100.0100, L500.4050 ####[facility] [address] [place], [address] AST [Catalytic activity/Vol] 36 U/L Normal 15-37 [facility] Comment on above: Performed By: #### L 100.0100, L500.4050 ####[facility] [address] [place], [address] Bilirubin [Mass/Vol] 0.30 mg/dL Normal 0.20-1.00 [facility] Comment on above: Result Comment: For patients on eltrombopag therapy, use of Dimension [place] TBIL is not recommended. Performed By: #### L 100.0100, L500.4050 ####[facility] [address] [place], [address] BUN/CRE 14.0 RATIO Normal 10-20 [facility] Comment on above: Performed By: #### L 100.0100, L500.4050 ####[facility] [address] [place], [address] CA,Total 9.5 mg/dL Normal 8.5-10.1 [facility] Comment on above: Performed By: #### L 100.0100, L500.4050 ####[facility] [address] [place], [address] Chloride [Moles/Vol] 106 mmol/L Normal 98-107 [facility] Comment on above: Performed By: #### L 100.0100, L500.4050 ####[facility] [address] [place], [address] CO2 [Moles/Vol] 21.0 mmol/L Normal 21.0-32.0 [facility] Comment on above: Performed By: #### L 100.0100, L500.4050 ####[facility] [address] [place], [address] Creatinine [Mass/Vol] 1.07 mg/dL Normal 0.70-1.30 [facility] Comment on above: Result Comment: The validity of the calculated GFR GFRAA in patients over70 years has not been determined. Clinical correlation isessential. Performed By: #### L 100.0100, L500.4050 ####[facility] [address] [place], [address] ECRCL 70.12 ml/min Normal [facility] Comment on above: Performed By: #### L 100.0100, L500.4050 ####[facility] [address] [place], [address] EST GFR - AA 89 mL/min Normal >60 [facility] Comment on above: Result Comment: Afri can [place] GFR Calc Performed By: #### L 100.0100, L500.4050 ####[facility] [address] [place], [address] GAP 8 Normal 5-15 [facility] Comment on above: Performed By: #### L 100.0100, L500.4050 ####[facility] [address] [place], [address] GFR/1.73 sq M.predicted among non-blacks MDRD (S/P/Bld) [Vol rate/Area] 73 mL/min/{1.73_m2} Normal >60 [facility] Comment on above: Result Comment: Non- GFR Calc Performed By: #### L 100.0100, L500.4050 ####[facility] [address] [place], [address] Globulin (S) [Mass/Vol] 3.2 g/dL Normal 2.2-4.2 [facility] Comment on above: Performed By: #### L 100.0100, L500.4050 ####[facility] [address] [place], [address] Glucose [Mass/Vol] 109 mg/dL High 74-106 [facility] Comment on above: Result Comment: Fast ing Glucose result from 100 to 125 mg/dLsuggests IMPAIRED HOMEOSTASIS per A.D.A. criteria. Performed By: #### L 100.0100, L500.4050 ####[facility] [address] [place], [address] Potassium [Moles/Vol] 4.3 mmol/L Normal 3.5-5.1 [facility] Comment on above: Performed By: #### L 100.0100, L500.4050 ####[facility] [address] [place], [address] Sodium [Moles/Vol] 135 mmol/L Low 136-145 [facility] Comment on above: Performed By: #### L 100.0100, L500.4050 ####[facility] [address] [place], [address] T PROT 6.9 g/dL Normal 6.4-8.2 [facility] Comment on above: Performed By: #### L 100.0100, L500.4050 ####[facility] [address] [place], [address] Urea nitrogen [Mass/Vol] 15 mg/dL Normal 7-18 [facility] Comment on above: Performed By: #### L 100.0100, L500.4050 ####[facility] [address] [place], [address] Creatinine [Mass/Vol]Ordered By: Iris Orozco on 09-03-2024 Serum or plasma creatinine measurement (mass/volume) 1.07 mg/dL 0.70-1.30 [facility] Eosinophil percentageOrdered By: Iris Orozco on 09-03-2024 Eosinophil percentage 0.0 % 0-5 [facility] Erythrocyte distribution wid th (RBC) [Entitic vol]Ordered By: Iris Ernesto on 09-03-2024 Erythrocyte distribution width standard deviation 48.6 fl High 35.1-43.9 [facility] Erythrocyte distribution wid th (RBC) [Ratio]Ordered By: Iris Ernesto on 09-03-2024 Erythrocyte distribution width ratio 15.3 % High 11.6-14.6 [facility] Estimated glomerular filtrat ion rate (GFR) AmericanOrdered By: Iris Orozco on 09-03-2024 Estimated glomerular filtration rate (GFR) 89 mL/min >60 [facility] Estimation of creatinine deion aranceOrdered By: Iris Orozco on 09-03-2024 Estimation of creatinine clearance 70.12 ml/min [facility] Glomerular filtration rate ( GFR) estimationOrdered By: Iris Orozco on 09-03-2024 Glomerular filtration rate (GFR) estimation 73 mL/min >60 [facility] Glucose measurementOrdered B y: Iris Orozco on 09-03-2024 Glucose measurement 109 mg/dL High 74-106 [facility] Hematocrit Auto (Bld) [Volum e fraction]Ordered By: Iris Orozco on 09-03-2024 Automated blood hematocrit (percentage) 31.5 % Low 40-54 [facility] Hemoglobin measurementOrdere d By: Iris Orozco on 09-03-2024 Hemoglobin measurement 10.6 g/dL Low 13.0-16.5 [facility] Immature granulocytes/100 WB C Auto (Bld)Ordered By: Iris Orozco on 09-03-2024 Automated immature granulocyte percentage 0.700 % 0.0-0.9 [facility] Lymphocytes Auto (Unsp spec) [#/Vol]Ordered By: Iris Orozco on 09-03-2024 Absolute lymphocyte count 1.29 X10^3/uL 0.83-4.51 [facility] Lymphocytes/100 WBC Auto (Un sp spec)Ordered By: Iris Orozco on 09-03-2024 Automated lymphocyte count as percentage of total leukocytes 8.0 % Low 19-41 [facility] MCV (RBC) [Entitic vol]Order ed By: Iris Orozco on 09-03-2024 MCV (mean corpuscular volume) determination 86.8 fL 80-94 [facility] Magnesiumon 09-03-2024 Magnesium [Mass/Vol] 2.6 mg/dL Normal 1.6-2.6 [facility] Comment on above: Performed By: #### L 501.5200 ####[facility] [address] [place], [address] Magnesium measurementOrdered By: [facility] Ernesto on 09-03-2024 Magnesium measurement 2.6 mg/dL 1.6-2.6 [facility] Manual differential comment Sami (Bld) [Interp]Ordered By: Iris Orozco on 09-03-2024 Blood manual differential comment interpretation (narrative result) SCANNED [facility] Mean corpuscular hemoglobin (MCH) determinationOrdered By: Iris Orozco on 09-03-2024 Mean corpuscular hemoglobin (MCH) determination 29.2 pg 27.0-32.0 [facility] Mean corpuscular hemoglobin concentration (MCHC) determinationOrdered By: Iris Ernesto on 09-03-2024 Mean corpuscular hemoglobin concentration (MCHC) determination 33.7 g/dL 32-36 [facility] Mean platelet volume determi nationOrdered By: Iris White on 09-03-2024 Mean platelet volume determination 9.4 fl 6.2-12.0 [facility] Monocyte percentageOrdered B y: Iris White on 09-03-2024 Monocyte percentage 11.8 % High 0-10 [facility] Neutrophil percentageOrdered By: Iris Orozco on 09-03-2024 Neutrophil percentage 79.4 % High 47-70 [facility] No Panel InformationOrdered By: Iris Orozco on 09-03-2024 36 U/L 15-37 [facility] Nucleated red blood cell per centageOrdered By: Iris Ernesto on 09-03-2024 Nucleated red blood cell percentage 0 % 0-5 [facility] Pathologist review Smai (Unsp spec) [Interp]Ordered By: Iris Orozco on 09-03-2024 Review by pathologist Reviewed [facility] Platelet countOrdered By: Vijaya rogeliokoby Orozco on 09-03-2024 Platelet count 390 K/mm3 150-450 [facility] Potassium measurementOrdered By: Iris Orozco on 09-03-2024 Potassium measurement 4.3 mmol/L 3.5-5.1 [facility] RBC Auto (Bld) [#/Vol]Ordere d By: Iris Orozco on 09-03-2024 Automated blood erythrocyte count 3.63 M/mm3 Low 4.6-6.2 [facility] Serum anion gap measurementO rdered By: Iris Orozco on 09-03-2024 Serum anion gap measurement 8 5-15 [facility] Serum globulin measurementOr dered By: Iris Orozco on 09-03-2024 Serum globulin measurement 3.2 g/dL 2.2-4.2 [facility] Sodium levelOrdered By: Yissel mn Ernesto on 09-03-2024 Sodium level 135 mmol/L Low 136-145 [facility] Total proteinOrdered By: Gonzalo blancon Ernesto on 09-03-2024 Total protein 6.9 g/dL 6.4-8.2 [facility] Urea nitrogen [Mass/Vol]Orde red By: Iris Orozco on 09-03-2024 Serum or plasma urea nitrogen measurement (mass/volume) 15 mg/dL 7-18 [facility] Urine Drug Screen (VISTA)on 09-03-2024 VISTA UDS PH 7 Normal [facility] Comment on above: Result Comment: AMENDED REPORT 09/03/24 0213 VISTA UDS PH previously reported as: 6 Performed By: #### L 505.5000 ####[facility] [address] [place], [address] White blood cell (WBC) count Ordered By: Iris White on 09-03-2024 White blood cell (WBC) count 16.2 K/mm3 High 4.4-11.0 [facility] Abdomen/Pelvis W IV Cont ONL Yon 09-02-2024 Abdomen/Pelvis W IV Cont ONLY Normal [facility] Amorphous sediment LM Ql (Ur ine sed)Ordered By: Trenton Ruiz on 09-02-2024 Amorphous sediment detection in urine sediment by light microscopy 1+ [facility] Bacteria LM.HPF (Urine sed) [#/Area]Ordered By: Trenton Ruiz on 09-02-2024 Urine sediment bacteria count by microscopy (number/high power field) 1+ /hpf None Seen [facility] CBC W/Diff, Automatedon 08-24 Anisocytosis Ql (Bld) 1+ Normal [facility] Comment on above: Performed By: #### L 100.0100, L500.4050, L501.2450, L503.6005 ####[facility] [address] [place], [address] HYPOCHROMASIA 1+ Normal [facility] Comment on above: Performed By: #### L 100.0100, L500.4050, L501.2450, L503.6005 ####[facility] [address] [place], [address] PLT EST SLT INC Normal ADEQ [facility] Comment on above: Performed By: #### L 100.0100, L500.4050, L501.2450, L503.6005 ####[facility] [address] [place], [address] STOMATOCYTE RARE Normal [facility] Comment on above: Performed By: #### L 100.0100, L500.4050, L501.2450, L503.6005 ####[facility] [address] [place], [address] Clarity (U)Ordered By: Trenton Crawfordur on 09-02-2024 Urine clarity Clear Clear [facility] Coarse Granular Casts LM Ql (Urine sed)Ordered By: Remus Ungur on 09-02-2024 Urine coarse granular cast detection 0-5 SEEN /lpf 0-5 /lpf [facility] Color (U)Ordered By: Remus U ngur on 09-02-2024 Urine color determination Nette Yellow [facility] Comprehensive Metabolic Prof ilon 09-02-2024 Albumin [Mass/Vol] 4.6 g/dL Normal 3.2-5.0 [facility] Comment on above: Performed By: #### L 100.0100, L500.4050, L501.2450, L503.6005 ####[facility] [address] [place], [address] Albumin/Globulin [Mass ratio] 1.2 {ratio} Normal 0.9-2.4 [facility] Comment on above: Performed By: #### L 100.0100, L500.4050, L501.2450, L503.6005 ####[facility] [address] [place], [address] ALK P 59 U/L Normal 45-117 [facility] Comment on above: Performed By: #### L 100.0100, L500.4050, L501.2450, L503.6005 ####[facility] [address] [place], [address] ALT [Catalytic activity/Vol] 15 U/L Low 16-61 [facility] Comment on above: Performed By: #### L 100.0100, L500.4050, L501.2450, L503.6005 ####[facility] [address] [place], [address] AST [Catalytic activity/Vol] 22 U/L Normal 15-37 [facility] Comment on above: Performed By: #### L 100.0100, L500.4050, L501.2450, L503.6005 ####[facility] [address] [place], [address] Bilirubin [Mass/Vol] 0.60 mg/dL Normal 0.20-1.00 [facility] Comment on above: Result Comment: For patients on eltrombopag therapy, use of Dimension [place] TBIL is not recommended. Performed By: #### L 100.0100, L500.4050, L501.2450, L503.6005 ####[facility] [address] [place], [address] BUN/CRE 9.2 RATIO Low 10-20 [facility] Comment on above: Performed By: #### L 100.0100, L500.4050, L501.2450, L503.6005 ####[facility] [address] [place], [address] CA,Total 10.8 mg/dL High 8.5-10.1 [facility] Comment on above: Performed By: #### L 100.0100, L500.4050, L501.2450, L503.6005 ####[facility] [address] [place], [address] Chloride [Moles/Vol] 103 mmol/L Normal 98-107 [facility] Comment on above: Performed By: #### L 100.0100, L500.4050, L501.2450, L503.6005 ####[facility] [address] [place], [address] CO2 [Moles/Vol] 19.0 mmol/L Low 21.0-32.0 [facility] Comment on above: Performed By: #### L 100.0100, L500.4050, L501.2450, L503.6005 ####[facility] [address] [place], [address] Creatinine [Mass/Vol] 1.52 mg/dL High 0.70-1.30 [facility] Comment on above: Result Comment: The validity of the calculated GFR GFRAA in patients over70 years has not been determined. Clinical correlation isessential. Performed By: #### L 100.0100, L500.4050, L501.2450, L503.6005 ####[facility] [address] [place], [address] ECRCL 49.36 ml/min Normal [facility] Comment on above: Performed By: #### L 100.0100, L500.4050, L501.2450, L503.6005 ####[facility] [address] [place], [address] EST GFR - AA 59 mL/min Low >60 [facility] Comment on above: Result Comment: Afri can [place] GFR Calc Performed By: #### L 100.0100, L500.4050, L501.2450, L503.6005 ####[facility] [address] [place], [address] GAP 13 Normal 5-15 [facility] Comment on above: Performed By: #### L 100.0100, L500.4050, L501.2450, L503.6005 ####[facility] [address] [place], [address] GFR/1.73 sq M.predicted among non-blacks MDRD (S/P/Bld) [Vol rate/Area] 49 mL/min/{1.73_m2} Low >60 [facility] Comment on above: Result Comment: Non- GFR Calc Performed By: #### L 100.0100, L500.4050, L501.2450, L503.6005 ####[facility] [address] [place], [address] Globulin (S) [Mass/Vol] 3.7 g/dL Normal 2.2-4.2 [facility] Comment on above: Performed By: #### L 100.0100, L500.4050, L501.2450, L503.6005 ####[facility] [address] [place], [address] Glucose [Mass/Vol] 165 mg/dL High 74-106 [facility] Comment on above: Result Comment: Fast ing Glucose result greater than or equal to 126 mg/dLsuggests DIABETES MELLITUS per A.D.A. criteria. Performed By: #### L 100.0100, L500.4050, L501.2450, L503.6005 ####[facility] [address] [place], [address] Potassium [Moles/Vol] 4.1 mmol/L Normal 3.5-5.1 [facility] Comment on above: Performed By: #### L 100.0100, L500.4050, L501.2450, L503.6005 ####[facility] [address] [place], [address] Sodium [Moles/Vol] 135 mmol/L Low 136-145 [facility] Comment on above: Performed By: #### L 100.0100, L500.4050, L501.2450, L503.6005 ####[facility] [address] [place], [address] T PROT 8.3 g/dL High 6.4-8.2 [facility] Comment on above: Performed By: #### L 100.0100, L500.4050, L501.2450, L503.6005 ####[facility] [address] [place], [address] Urea nitrogen [Mass/Vol] 14 mg/dL Normal 7-18 [facility] Comment on above: Performed By: #### L 100.0100, L500.4050, L501.2450, L503.6005 ####[facility] [address] [place], [place], [address] Emergency Department Summary on 09-02-2024 Emergency Department Summary Normal [facility] Glucose Ql (U)Ordered By: Hailee Ruiz on 09-02-2024 Urine glucose detection Normal mg/dl Normal [facility] H AND P Exam - Hospitaliston 09-02-2024 H&P Exam - Hospitalist Normal [facility] Hypochromatic red blood cell detectionOrdered By: Trenton Ruiz on 09-02-2024 Hypochromatic red blood cell detection 1+ [facility] Lactic Acidon 09-02-2024 Lactate [Moles/Vol] 1.6 mmol/L Normal 0.4-1.9 [facility] Comment on above: Performed By: #### L 503.6005 ####[facility] [address] [place], [address] Lactate [Moles/Vol] 6.4 mmol/L Invalid Interpretation Code 0.4-1.9 [facility] Comment on above: Order Comment: Y Result Comment: Crit ical Result(s) Called at: 19:08:55 09/02/2024 by: MAXIMILAIN TO LSPARR. Results read back by same. Performed By: #### L 100.0100, L500.4050, L501.2450, L503.6005 ####[facility] [address] [place], [place], [address] Lactic acid measurementOrder ed By: Trenton Ruiz on 09-02-2024 Lactic acid measurement 1.6 mmol/L 0.4-2.0 [facility] Leukocyte esterase Test stri p Ql (U)Ordered By: Trenton Ruiz on 09-02-2024 Urine leukocyte esterase detection by dipstick 25 /ul High Negative [facility] Lipaseon 09-02-2024 Lipase [Catalytic activity/Vol] 31 U/L Normal 13-75 [facility] Comment on above: Result Comment: Edilberto conn note:LIPASE revised reference range effective 23.New Lipase methodology. Expected to produce lower valuesthan the previous assay method.NEW Reference Range: 13 - 75 U/L Performed By: #### L 100.0100, L500.4050, L501.2450, L503.6005 ####[facility] [address] [place], [address] Lipase measurementOrdered By : Trenton Ruiz on 09-02-2024 Lipase measurement 31 U/L 13-75 [facility] Magnesiumon 09-02-2024 Magnesium [Mass/Vol] 1.2 mg/dL Low 1.6-2.6 [facility] Comment on above: Order Comment: Comme nts: May add to ED labsComments: may add to ED labs Performed By: #### L 501.2300, L501.5200, L509.7000 ####[facility] [address] [place], [place], [address] Microscopic analysis of urin e for red blood cells (RBC)Ordered By: Trenton Ruiz on 09-02-2024 Microscopic analysis of urine for red blood cells (RBC) 5-10 SEEN /hpf 0-5 [facility] No Panel InformationOrdered By: Iris Orozco on 09-02-2024 [facility] Phosphoruson 09-02-2024 Phosphate [Mass/Vol] 3.6 mg/dL Normal 2.5-4.9 [facility] Comment on above: Order Comment: Comme nts: May add to ED labsComments: may add to ED labs Performed By: #### L 501.2300, L501.5200, L509.7000 ####[facility] [address] [place], [address] Phosphorus measurementOrdere d By: Iris Orozco on 09-02-2024 Phosphorus measurement 3.6 mg/dL 2.5-4.9 [facility] Platelets LM Ql (Bld)Ordered By: Trenton Ruiz on 09-02-2024 Platelet estimate SLT INC ADEQ [facility] Procalcitoninon 09-02-2024 Procalcitonin 0.07 ng/mL Normal 0.00-0.09 [facility] Comment on above: Result Comment: A pr ocalcitonin (PCT) level above 2.0 ng/mL on the first day of ICU admission is associated with a high risk for progression to severe sepsis and/or septic shock. A PCT level below 0.5 ng/mL on the first day of ICU admission is associated with a low risk for progression to severe and/or septic shock. Note: Concentrations <0.5 ng/mL do not exclude an infection on account of localized infections (without systemic signs) which can be associated with such low concentrations, or a systemic infection in its initial stages (<6 hours). Furthermore, increased procalcitonin can occur without infection. PCT concentrations between 0.5 and 2.0 ng/mL should be interpreted taking into account the patient's history. It is recommended to retest PCT within 6-24 hours if any concentrations <2 ng/mL are obtained. Performed By: #### L 501.2300, L501.5200, L509.7000 ####[facility] [address] [place], [place], [address] Procalcitonin [Mass/Vol]Orde red By: Iris White on 09-02-2024 Serum procalcitonin measurement 0.07 ng/mL 0.00-0.09 [facility] Protein Test strip Ql (U)Ord ered By: Trenton Ruiz on 09-02-2024 Urine protein assay by test strip, semi-quantitative 100 mg/dl High Negative [facility] Specific gravity (U) [Rel de nsity]Ordered By: Trenton Ruiz on 09-02-2024 Urine specific gravity measurement 1.025 1.002-1.03 0 [facility] Squamous epithelial cells de tection in urine sediment by light microscopyOrdered By: Trenton Ruiz on 09-02-2024 Squamous epithelial cells detection in urine sediment by light microscopy 0 SEEN /hpf [facility] Stomatocytes LM Ql (Bld)Orde red By: Trenton Ruiz on 09-02-2024 Blood stomatocytes detection by light microscopy RARE [facility] Urinalysis, Completeon 09-02 AMORPHOUS 1+ Normal [facility] Comment on above: Order Comment: COLOR OF URINE MAY AFFECT DIPSTICK RESULTS.CLEAN CATCH Performed By: #### L 400.0001 ####[facility] [address] [place], [address] BACTERIA 1+ /hpf Normal None Seen [facility] Comment on above: Order Comment: COLOR OF URINE MAY AFFECT DIPSTICK RESULTS.CLEAN CATCH Performed By: #### L 400.0001 ####[facility] [address] [place], [address] CAST,COARSE GR 0-5 SEEN Normal 0-5 /lpf [facility] Comment on above: Order Comment: COLOR OF URINE MAY AFFECT DIPSTICK RESULTS.CLEAN CATCH Performed By: #### L 400.0001 ####[facility] [address] [place], [address] RBC 5-10 SEEN Normal 0-5 [facility] Comment on above: Order Comment: COLOR OF URINE MAY AFFECT DIPSTICK RESULTS.CLEAN CATCH Performed By: #### L 400.0001 ####[facility] [address] [place], [address] WBC 0-5 SEEN Normal 0-5 [facility] Comment on above: Order Comment: COLOR OF URINE MAY AFFECT DIPSTICK RESULTS.CLEAN CATCH Performed By: #### L 400.0001 ####[facility] [address] [place], [address] EPI,SQUAMOUS 0 SEEN Normal 0-5 [facility] Comment on above: Order Comment: COLOR OF URINE MAY AFFECT DIPSTICK RESULTS.CLEAN CATCH Performed By: #### L 400.0001 ####[facility] [address] [place], [address] Mucus Ql (Urine sed) 0 SEEN Normal [facility] Comment on above: Order Comment: COLOR OF URINE MAY AFFECT DIPSTICK RESULTS.CLEAN CATCH Performed By: #### L 400.0001 ####[facility] [address] [place], [address] Urine blood detectionOrdered By: Trenton Ruiz on 09-02-2024 Urine blood detection 150 /ul High Negative [facility] Urine cultureOrdered By: Aut umn White on 09-02-2024 Urine culture Positive Abnormal [facility] Urine ketones detection by t est stripOrdered By: Trenton Ruiz on 09-02-2024 Urine ketones detection by test strip Negative < 25 ng/mL [facility] Urine methylenedioxymethamph etamine (MDMA) measurementOrdered By: Iris White on 09-02-2024 Urine methylenedioxymethamphet amine (MDMA) measurement Positive High < 50 ng/mL [facility] Urine total bilirubin detect ion by test stripOrdered By: Trenton Ruiz on 09-02-2024 Urine total bilirubin detection by test strip 1 mg/dL High Normal [facility] White blood cell countOrdere d By: Trenton Ruiz on 09-02-2024 White blood cell count 0-5 SEEN /hpf 0-5 [facility] pH (U)Ordered By: Trenton Haney r on 09-02-2024 Urine pH 5.0 5.0 - 8.0 [facility] Office Visit Reporton 2023 Office Visit Report Normal [facility] Office Visit Reporton 2023 Office Visit Report Normal [facility] Basic Metabolic Profile (BMP )on 07-10-2024 BUN/CRE 12.1 RATIO Normal 07-13 [facility] Comment on above: Performed By: #### L 100.0100, L500.2500, L500.3400, L501.2450 ####[facility] [address] [place], [address] CA,Total 9.6 mg/dL Normal 8.5-10.1 [facility] Comment on above: Performed By: #### L 100.0100, L500.2500, L500.3400, L501.2450 ####[facility] [address] [place], [address] Chloride [Moles/Vol] 101 mmol/L Normal 98-107 [facility] Comment on above: Performed By: #### L 100.0100, L500.2500, L500.3400, L501.2450 ####[facility] [address] [place], [address] CO2 [Moles/Vol] 18.0 mmol/L Low 21.0-32.0 [facility] Comment on above: Performed By: #### L 100.0100, L500.2500, L500.3400, L501.2450 ####[facility] [address] [place], [address] Creatinine [Mass/Vol] 1.00 mg/dL Normal 0.70-1.30 [facility] Comment on above: Result Comment: The validity of the calculated GFR GFRAA in patients over70 years has not been determined. Clinical correlation isessential. Performed By: #### L 100.0100, L500.2500, L500.3400, L501.2450 ####[facility] [address] [place], [address] ECRCL 75.03 ml/min Normal [facility] Comment on above: Performed By: #### L 100.0100, L500.2500, L500.3400, L501.2450 ####[facility] [address] [place], [address] EST GFR - AA 97 mL/min Normal >60 [facility] Comment on above: Result Comment: Afri can [place] GFR Calc Performed By: #### L 100.0100, L500.2500, L500.3400, L501.2450 ####[facility] [address] [place], [address] GAP 10 Normal 5-15 [facility] Comment on above: Performed By: #### L 100.0100, L500.2500, L500.3400, L501.2450 ####[facility] [address] [place], [address] GFR/1.73 sq M.predicted among non-blacks MDRD (S/P/Bld) [Vol rate/Area] 80 mL/min/{1.73_m2} Normal >60 [facility] Comment on above: Result Comment: Non- GFR Calc Performed By: #### L 100.0100, L500.2500, L500.3400, L501.2450 ####[facility] [address] [place], [address] Glucose [Mass/Vol] 136 mg/dL High 74-106 [facility] Comment on above: Result Comment: Fast ing Glucose result greater than or equal to 126 mg/dLsuggests DIABETES MELLITUS per A.D.A. criteria. Performed By: #### L 100.0100, L500.2500, L500.3400, L501.2450 ####[facility] [address] [place], [address] Potassium [Moles/Vol] 4.0 mmol/L Normal 3.5-5.1 [facility] Comment on above: Result Comment: Slig ht Hemolysis, Result may be falsely increased. Performed By: #### L 100.0100, L500.2500, L500.3400, L501.2450 ####[facility] [address] [place], [address] Sodium [Moles/Vol] 129 mmol/L Low 136-145 [facility] Comment on above: Performed By: #### L 100.0100, L500.2500, L500.3400, L501.2450 ####[facility] [address] [place], [address] Urea nitrogen [Mass/Vol] 12 mg/dL Normal 7-18 [facility] Comment on above: Performed By: #### L 100.0100, L500.2500, L500.3400, L501.2450 ####[facility] [address] [place], [address] CBC W/Diff, Automatedon 10- Absolute Lymph 0.35 X10 3/uL Low 0.83-4.51 [facility] Comment on above: Performed By: #### L 100.0100, L300.3900, L300.4310, L500.4050, L501.2450 ####[facility] [address] [place], [address] Absolute Neut 13.7 X10 3/uL High 2.0-7.7 [facility] Comment on above: Performed By: #### L 100.0100, L300.3900, L300.4310, L500.4050, L501.2450 ####[facility] [address] [place], [address] Basophils/100 WBC (Bld) 0.1 % Normal 0-1 [facility] Comment on above: Performed By: #### L 100.0100, L300.3900, L300.4310, L500.4050, L501.2450 ####[facility] [address] [place], [address] Eosinophils/100 WBC (Bld) 0.0 % Normal 0-5 [facility] Comment on above: Performed By: #### L 100.0100, L300.3900, L300.4310, L500.4050, L501.2450 ####[facility] [address] [place], [address] Erythrocyte distribution width (RBC) [Ratio] 14.7 % High 11.6-14.6 [facility] Comment on above: Performed By: #### L 100.0100, L300.3900, L300.4310, L500.4050, L501.2450 ####[facility] [address] [place], [address] Hematocrit (Bld) [Volume fraction] 36.6 % Low 40-54 [facility] Comment on above: Performed By: #### L 100.0100, L300.3900, L300.4310, L500.4050, L501.2450 ####[facility] [address] [place], [address] Hemoglobin (Bld) [Mass/Vol] 12.3 g/dL Low 13.0-16.5 [facility] Comment on above: Performed By: #### L 100.0100, L300.3900, L300.4310, L500.4050, L501.2450 ####[facility] [address] [place], [address] IG% 0.900 Normal 0.0-0.9 [facility] Comment on above: Result Comment: IG% - Immature Granulocytes (promyelocytes, myelocytes andmetamyelocytes) > 1% indicates that a LEFT SHIFT is Present. Performed By: #### L 100.0100, L300.3900, L300.4310, L500.4050, L501.2450 ####[facility] [address] [place], [address] Lymphocytes/100 WBC (Bld) 2.4 % Low 19-41 [facility] Comment on above: Performed By: #### L 100.0100, L300.3900, L300.4310, L500.4050, L501.2450 ####[facility] [address] [place], [address] MCH (RBC) [Entitic mass] 29.3 pg Normal 27.0-32.0 [facility] Comment on above: Performed By: #### L 100.0100, L300.3900, L300.4310, L500.4050, L501.2450 ####[facility] [address] [place], [address] MCHC (RBC) [Mass/Vol] 33.6 g/dL Normal 32-36 [facility] Comment on above: Performed By: #### L 100.0100, L300.3900, L300.4310, L500.4050, L501.2450 ####[facility] [address] [place], [address] MCV (RBC) [Entitic vol] 87.1 fL Normal 80-94 [facility] Comment on above: Performed By: #### L 100.0100, L300.3900, L300.4310, L500.4050, L501.2450 ####[facility] [address] [place], [address] Monocytes/100 WBC (Bld) 3.1 % Normal 0-10 [facility] Comment on above: Performed By: #### L 100.0100, L300.3900, L300.4310, L500.4050, L501.2450 ####[facility] [address] [place], [address] Neutrophils/100 WBC (Bld) 93.5 % High 47-70 [facility] Comment on above: Performed By: #### L 100.0100, L300.3900, L300.4310, L500.4050, L501.2450 ####[facility] [address] [place], [address] Nucleated RBC (Bld) [#/Vol] 0 10*3/uL Normal 0-5 [facility] Comment on above: Performed By: #### L 100.0100, L300.3900, L300.4310, L500.4050, L501.2450 ####[facility] [address] [place], [address] Performed By: #### L 100.0100, L500.2500, L500.3400, L501.2450 ####[facility] [address] [place], [address] Platelet mean volume (Bld) [Entitic vol] 9.0 fL Normal 6.2-12.0 [facility] Comment on above: Performed By: #### L 100.0100, L300.3900, L300.4310, L500.4050, L501.2450 ####[facility] [address] [place], [address] Platelets (Bld) [#/Vol] 508 10*3/uL High 150-450 [facility] Comment on above: Performed By: #### L 100.0100, L300.3900, L300.4310, L500.4050, L501.2450 ####[facility] [address] [place], [address] RBC (Bld) [#/Vol] 4.20 10*6/uL Low 4.6-6.2 [facility] Comment on above: Performed By: #### L 100.0100, L300.3900, L300.4310, L500.4050, L501.2450 ####[facility] [address] [place], [address] RDW SD 47.5 fl High 35.1-43.9 [facility] Comment on above: Performed By: #### L 100.0100, L300.3900, L300.4310, L500.4050, L501.2450 ####[facility] [address] [place], [address] WBC (Bld) [#/Vol] 14.7 10*3/uL High 4.4-11.0 [facility] Comment on above: Performed By: #### L 100.0100, L300.3900, L300.4310, L500.4050, L501.2450 ####[facility] [address] [place], [address] Absolute Lymph 1.49 X10 3/uL Normal 0.83-4.51 [facility] Comment on above: Performed By: #### L 100.0100, L500.2500, L500.3400, L501.2450 ####[facility] [address] [place], [address] Absolute Neut 16.2 X10 3/uL High 2.0-7.7 [facility] Comment on above: Performed By: #### L 100.0100, L500.2500, L500.3400, L501.2450 ####[facility] [address] [place], [address] Basophils/100 WBC (Bld) 0.4 % Normal 0-1 [facility] Comment on above: Performed By: #### L 100.0100, L500.2500, L500.3400, L501.2450 ####[facility] [address] [place], [address] Eosinophils/100 WBC (Bld) 1.4 % Normal 0-5 [facility] Comment on above: Performed By: #### L 100.0100, L500.2500, L500.3400, L501.2450 ####[facility] [address] [place], [address] Erythrocyte distribution width (RBC) [Ratio] 14.9 % High 11.6-14.6 [facility] Comment on above: Performed By: #### L 100.0100, L500.2500, L500.3400, L501.2450 ####[facility] [address] [place], [address] Hematocrit (Bld) [Volume fraction] 40.0 % Normal 40-54 [facility] Comment on above: Performed By: #### L 100.0100, L500.2500, L500.3400, L501.2450 ####[facility] [address] [place], [address] Hemoglobin (Bld) [Mass/Vol] 13.4 g/dL Normal 13.0-16.5 [facility] Comment on above: Performed By: #### L 100.0100, L500.2500, L500.3400, L501.2450 ####[facility] [address] [place], [address] IG% 1.100 High 0.0-0.9 [facility] Comment on above: Result Comment: IG% - Immature Granulocytes (promyelocytes, myelocytes andmetamyelocytes) > 1% indicates that a LEFT SHIFT is Present. Performed By: #### L 100.0100, L500.2500, L500.3400, L501.2450 ####[facility] [address] [place], [address] Lymphocytes/100 WBC (Bld) 7.7 % Low 19-41 [facility] Comment on above: Performed By: #### L 100.0100, L500.2500, L500.3400, L501.2450 ####[facility] [address] [place], [address] MCH (RBC) [Entitic mass] 30.2 pg Normal 27.0-32.0 [facility] Comment on above: Performed By: #### L 100.0100, L500.2500, L500.3400, L501.2450 ####[facility] [address] [place], [address] MCHC (RBC) [Mass/Vol] 33.5 g/dL Normal 32-36 [facility] Comment on above: Performed By: #### L 100.0100, L500.2500, L500.3400, L501.2450 ####[facility] [address] [place], [address] MCV (RBC) [Entitic vol] 90.3 fL Normal 80-94 [facility] Comment on above: Performed By: #### L 100.0100, L500.2500, L500.3400, L501.2450 ####[facility] [address] [place], [address] Monocytes/100 WBC (Bld) 6.2 % Normal 0-10 [facility] Comment on above: Performed By: #### L 100.0100, L500.2500, L500.3400, L501.2450 ####[facility] [address] [place], [address] Neutrophils/100 WBC (Bld) 83.2 % High 47-70 [facility] Comment on above: Performed By: #### L 100.0100, L500.2500, L500.3400, L501.2450 ####[facility] [address] [place], [address] Platelet mean volume (Bld) [Entitic vol] 8.8 fL Normal 6.2-12.0 [facility] Comment on above: Performed By: #### L 100.0100, L500.2500, L500.3400, L501.2450 ####[facility] [address] [place], [address] Platelets (Bld) [#/Vol] 475 10*3/uL High 150-450 [facility] Comment on above: Performed By: #### L 100.0100, L500.2500, L500.3400, L501.2450 ####[facility] [address] [place], [address] RBC (Bld) [#/Vol] 4.43 10*6/uL Low 4.6-6.2 [facility] Comment on above: Performed By: #### L 100.0100, L500.2500, L500.3400, L501.2450 ####[facility] [address] [place], [address] RDW SD 49.8 fl High 35.1-43.9 [facility] Comment on above: Performed By: #### L 100.0100, L500.2500, L500.3400, L501.2450 ####[facility] [address] [place], [address] WBC (Bld) [#/Vol] 19.4 10*3/uL High 4.4-11.0 [facility] Comment on above: Performed By: #### L 100.0100, L500.2500, L500.3400, L501.2450 ####[facility] [address] [place], [address] Comprehensive Metabolic Prof ilon 07-10-2024 Albumin [Mass/Vol] 3.9 g/dL Normal 3.2-5.0 [facility] Comment on above: Performed By: #### L 100.0100, L300.3900, L300.4310, L500.4050, L501.2450 ####[facility] [address] [place], [address] Albumin/Globulin [Mass ratio] 1.1 {ratio} Normal 0.9-2.4 [facility] Comment on above: Performed By: #### L 100.0100, L300.3900, L300.4310, L500.4050, L501.2450 ####[facility] [address] [place], [address] ALK P 45 U/L Normal 45-117 [facility] Comment on above: Performed By: #### L 100.0100, L300.3900, L300.4310, L500.4050, L501.2450 ####[facility] [address] [place], [address] ALT [Catalytic activity/Vol] 17 U/L Normal 16-61 [facility] Comment on above: Performed By: #### L 100.0100, L300.3900, L300.4310, L500.4050, L501.2450 ####[facility] [address] [place], [address] AST [Catalytic activity/Vol] 27 U/L Normal 15-37 [facility] Comment on above: Performed By: #### L 100.0100, L300.3900, L300.4310, L500.4050, L501.2450 ####[facility] [address] [place], [address] Bilirubin [Mass/Vol] 0.40 mg/dL Normal 0.20-1.00 [facility] Comment on above: Result Comment: For patients on eltrombopag therapy, use of Dimension [place] TBIL is not recommended. Performed By: #### L 100.0100, L300.3900, L300.4310, L500.4050, L501.2450 ####[facility] [address] [place], [address] BUN/CRE 8.8 RATIO Low 10-20 [facility] Comment on above: Performed By: #### L 100.0100, L300.3900, L300.4310, L500.4050, L501.2450 ####[facility] [address] [place], [address] CA,Total 9.4 mg/dL Normal 8.5-10.1 [facility] Comment on above: Performed By: #### L 100.0100, L300.3900, L300.4310, L500.4050, L501.2450 ####[facility] [address] [place], [address] Chloride [Moles/Vol] 102 mmol/L Normal 98-107 [facility] Comment on above: Performed By: #### L 100.0100, L300.3900, L300.4310, L500.4050, L501.2450 ####[facility] [address] [place], [address] CO2 [Moles/Vol] 17.0 mmol/L Low 21.0-32.0 [facility] Comment on above: Performed By: #### L 100.0100, L300.3900, L300.4310, L500.4050, L501.2450 ####[facility] [address] [place], [address] Creatinine [Mass/Vol] 1.02 mg/dL Normal 0.70-1.30 [facility] Comment on above: Result Comment: The validity of the calculated GFR GFRAA in patients over70 years has not been determined. Clinical correlation isessential. Performed By: #### L 100.0100, L300.3900, L300.4310, L500.4050, L501.2450 ####[facility] [address] [place], [address] ECRCL 73.56 ml/min Normal [facility] Comment on above: Performed By: #### L 100.0100, L300.3900, L300.4310, L500.4050, L501.2450 ####[facility] [address] [place], [address] EST GFR - AA 94 mL/min Normal >60 [facility] Comment on above: Result Comment: Afri can [place] GFR Calc Performed By: #### L 100.0100, L300.3900, L300.4310, L500.4050, L501.2450 ####[facility] [address] [place], [address] GAP 11 Normal 5-15 [facility] Comment on above: Performed By: #### L 100.0100, L300.3900, L300.4310, L500.4050, L501.2450 ####[facility] [address] [place], [address] GFR/1.73 sq M.predicted among non-blacks MDRD (S/P/Bld) [Vol rate/Area] 78 mL/min/{1.73_m2} Normal >60 [facility] Comment on above: Result Comment: Non- GFR Calc Performed By: #### L 100.0100, L300.3900, L300.4310, L500.4050, L501.2450 ####[facility] [address] [place], [address] Globulin (S) [Mass/Vol] 3.4 g/dL Normal 2.2-4.2 [facility] Comment on above: Performed By: #### L 100.0100, L300.3900, L300.4310, L500.4050, L501.2450 ####[facility] [address] [place], [address] Glucose [Mass/Vol] 144 mg/dL High 74-106 [facility] Comment on above: Result Comment: Fast ing Glucose result greater than or equal to 126 mg/dLsuggests DIABETES MELLITUS per A.D.A. criteria. Performed By: #### L 100.0100, L300.3900, L300.4310, L500.4050, L501.2450 ####[facility] [address] [place], [address] Potassium [Moles/Vol] 3.8 mmol/L Normal 3.5-5.1 [facility] Comment on above: Performed By: #### L 100.0100, L300.3900, L300.4310, L500.4050, L501.2450 ####[facility] [address] [place], [address] Sodium [Moles/Vol] 130 mmol/L Low 136-145 [facility] Comment on above: Performed By: #### L 100.0100, L300.3900, L300.4310, L500.4050, L501.2450 ####[facility] [address] [place], [place], [address] T PROT 7.3 g/dL Normal 6.4-8.2 [facility] Comment on above: Performed By: #### L 100.0100, L300.3900, L300.4310, L500.4050, L501.2450 ####[facility] [address] [place], [address] Urea nitrogen [Mass/Vol] 9 mg/dL Normal 7-18 [facility] Comment on above: Performed By: #### L 100.0100, L300.3900, L300.4310, L500.4050, L501.2450 ####[facility] [address] [place], [place], [id number] Emergency Department Summary on 07-10-2024 Emergency Department Summary Normal [facility] Emergency Department Summary Normal [facility] Lipaseon 07-10-2024 Lipase [Catalytic activity/Vol] 37 U/L Normal 13-75 [facility] Comment on above: Result Comment: Edilberto conn note:LIPASE revised reference range effective 23.New Lipase methodology. Expected to produce lower valuesthan the previous assay method.NEW Reference Range: 13 - 75 U/L Performed By: #### L 100.0100, L300.3900, L300.4310, L500.4050, L501.2450 ####[facility] [address] [place], [address] Lipase [Catalytic activity/Vol] 56 U/L Normal 13-75 [facility] Comment on above: Result Comment: Edilberto conn note:LIPASE revised reference range effective 23.New Lipase methodology. Expected to produce lower valuesthan the previous assay method.NEW Reference Range: 13 - 75 U/L Performed By: #### L 100.0100, L500.2500, L500.3400, L501.2450 ####[facility] [address] [place], [address] Liver Profileon 07-10-2024 Albumin [Mass/Vol] 4.0 g/dL Normal 3.2-5.0 [facility] Comment on above: Performed By: #### L 100.0100, L500.2500, L500.3400, L501.2450 ####[facility] [address] [place], [address] ALK P 60 U/L Normal 45-117 [facility] Comment on above: Performed By: #### L 100.0100, L500.2500, L500.3400, L501.2450 ####[facility] [address] [place], [address] ALT [Catalytic activity/Vol] 19 U/L Normal 16-61 [facility] Comment on above: Performed By: #### L 100.0100, L500.2500, L500.3400, L501.2450 ####[facility] [address] [place], [address] AST [Catalytic activity/Vol] 23 U/L Normal 15-37 [facility] Comment on above: Result Comment: Slig ht Hemolysis, Result may be falsely increased. Performed By: #### L 100.0100, L500.2500, L500.3400, L501.2450 ####[facility] [address] [place], [address] Bilirubin [Mass/Vol] 0.40 mg/dL Normal 0.20-1.00 [facility] Comment on above: Result Comment: For patients on eltrombopag therapy, use of Dimension [place] TBIL is not recommended. Performed By: #### L 100.0100, L500.2500, L500.3400, L501.2450 ####[facility] [address] [place], [address] Bilirubin.direct [Mass/Vol] 0.11 mg/dL Normal 0.00-0.30 [facility] Comment on above: Performed By: #### L 100.0100, L500.2500, L500.3400, L501.2450 ####[facility] [address] [place], [address] Globulin (S) [Mass/Vol] 3.5 g/dL Normal 2.2-4.2 [facility] Comment on above: Performed By: #### L 100.0100, L500.2500, L500.3400, L501.2450 ####[facility] [address] [place], [address] T PROT 7.5 g/dL Normal 6.4-8.2 [facility] Comment on above: Performed By: #### L 100.0100, L500.2500, L500.3400, L501.2450 ####[facility] [address] [place], [address] Partial Thromboplast Timeon 07-10-2024 aPTT Coag (Bld) [Time] 27.7 s Normal 24.1-36.2 [facility] Comment on above: Performed By: #### L 100.0100, L300.3900, L300.4310, L500.4050, L501.2450 ####[facility] [address] [place], [address] Prothrombin Time w/INRon INR Coag (PPP) [Relative time] 1.0 {INR} Normal [facility] Comment on above: Performed By: #### L 100.0100, L300.3900, L300.4310, L500.4050, L501.2450 ####[facility] [address] [place], [address] PT Coag (PPP) [Time] 13.5 s Normal 11.7-14.9 [facility] Comment on above: Performed By: #### L 100.0100, L300.3900, L300.4310, L500.4050, L501.2450 ####[facility] [address] [place], [address] Stool Occult Blood iFOBon STOB Positive Normal [facility] Comment on above: Performed By: #### M 100.7900 ####[facility] [address] [place], [address] 12 Lead EKGon 06-30-2024 12 Lead EKG Normal [facility] Abdomen/Pelvis W IV Cont ONL Yon 06-30-2024 Abdomen/Pelvis W IV Cont ONLY Normal [facility] Basic Metabolic Profile (BMP )on 06-30-2024 BUN/CRE 11.5 RATIO Normal 20 [facility] Comment on above: Order Comment: 'TROP ' Serial specimen #1, #2 or #3: 1 Performed By: #### L 100.0100, L500.2500, L501.4020 ####[facility] [address] [place], [address] CA,Total 9.3 mg/dL Normal 8.5-10.1 [facility] Comment on above: Order Comment: 'TROP ' Serial specimen #1, #2 or #3: 1 Performed By: #### L 100.0100, L500.2500, L501.4020 ####[facility] [address] [place], [address] Chloride [Moles/Vol] 101 mmol/L Normal 98-107 [facility] Comment on above: Order Comment: 'TROP ' Serial specimen #1, #2 or #3: 1 Performed By: #### L 100.0100, L500.2500, L501.4020 ####[facility] [address] [place], [address] CO2 [Moles/Vol] 16.0 mmol/L Low 21.0-32.0 [facility] Comment on above: Order Comment: 'TROP ' Serial specimen #1, #2 or #3: 1 Performed By: #### L 100.0100, L500.2500, L501.4020 ####[facility] [address] [place], [address] Creatinine [Mass/Vol] 1.04 mg/dL Normal 0.70-1.30 [facility] Comment on above: Order Comment: 'TROP ' Serial specimen #1, #2 or #3: 1 Result Comment: The validity of the calculated GFR GFRAA in patients over70 years has not been determined. Clinical correlation isessential. Performed By: #### L 100.0100, L500.2500, L501.4020 ####[facility] [address] [place], [address] ECRCL 72.14 ml/min Normal [facility] Comment on above: Order Comment: 'TROP ' Serial specimen #1, #2 or #3: 1 Performed By: #### L 100.0100, L500.2500, L501.4020 ####[facility] [address] [place], [address] EST GFR - AA 92 mL/min Normal >60 [facility] Comment on above: Order Comment: 'TROP ' Serial specimen #1, #2 or #3: 1 Result Comment: Afri can [place] GFR Calc Performed By: #### L 100.0100, L500.2500, L501.4020 ####[facility] [address] [place], [address] GAP 14 Normal 5-15 [facility] Comment on above: Order Comment: 'TROP ' Serial specimen #1, #2 or #3: 1 Performed By: #### L 100.0100, L500.2500, L501.4020 ####[facility] [address] [place], [address] GFR/1.73 sq M.predicted among non-blacks MDRD (S/P/Bld) [Vol rate/Area] 76 mL/min/{1.73_m2} Normal >60 [facility] Comment on above: Order Comment: 'TROP ' Serial specimen #1, #2 or #3: 1 Result Comment: Non- GFR Calc Performed By: #### L 100.0100, L500.2500, L501.4020 ####[facility] [address] [place], [address] Glucose [Mass/Vol] 158 mg/dL High 74-106 [facility] Comment on above: Order Comment: 'TROP ' Serial specimen #1, #2 or #3: 1 Result Comment: Fast ing Glucose result greater than or equal to 126 mg/dLsuggests DIABETES MELLITUS per A.D.A. criteria. Performed By: #### L 100.0100, L500.2500, L501.4020 ####[facility] [address] [place], [address] Potassium [Moles/Vol] 3.7 mmol/L Normal 3.5-5.1 [facility] Comment on above: Order Comment: 'TROP ' Serial specimen #1, #2 or #3: 1 Performed By: #### L 100.0100, L500.2500, L501.4020 ####[facility] [address] [place], [address] Sodium [Moles/Vol] 132 mmol/L Low 136-145 [facility] Comment on above: Order Comment: 'TROP ' Serial specimen #1, #2 or #3: 1 Performed By: #### L 100.0100, L500.2500, L501.4020 ####[facility] [address] [place], [address] Urea nitrogen [Mass/Vol] 12 mg/dL Normal 7-18 [facility] Comment on above: Order Comment: 'TROP ' Serial specimen #1, #2 or #3: 1 Performed By: #### L 100.0100, L500.2500, L501.4020 ####[facility] [address] [place], [address] CBC W/Diff, Automatedon 10-0 7-2024 Absolute Lymph 0.59 X10 3/uL Low 0.83-4.51 [facility] Comment on above: Performed By: #### L 100.0100, L500.2500, L501.4020 ####[facility] [address] [place], [address] Absolute Neut 14.0 X10 3/uL High 2.0-7.7 [facility] Comment on above: Performed By: #### L 100.0100, L500.2500, L501.4020 ####[facility] [address] [place], [address] Basophils/100 WBC (Bld) 0.1 % Normal 0-1 [facility] Comment on above: Performed By: #### L 100.0100, L500.2500, L501.4020 ####[facility] [address] [place], [address] Eosinophils/100 WBC (Bld) 0.1 % Normal 0-5 [facility] Comment on above: Performed By: #### L 100.0100, L500.2500, L501.4020 ####[facility] [address] [place], [address] Erythrocyte distribution width (RBC) [Ratio] 14.5 % Normal 11.6-14.6 [facility] Comment on above: Performed By: #### L 100.0100, L500.2500, L501.4020 ####[facility] [address] [place], [address] Hematocrit (Bld) [Volume fraction] 36.8 % Low 40-54 [facility] Comment on above: Performed By: #### L 100.0100, L500.2500, L501.4020 ####[facility] [address] [place], [address] Hemoglobin (Bld) [Mass/Vol] 12.4 g/dL Low 13.0-16.5 [facility] Comment on above: Performed By: #### L 100.0100, L500.2500, L501.4020 ####[facility] [address] [place], [address] IG% 1.100 High 0.0-0.9 [facility] Comment on above: Result Comment: IG% - Immature Granulocytes (promyelocytes, myelocytes andmetamyelocytes) > 1% indicates that a LEFT SHIFT is Present. Performed By: #### L 100.0100, L500.2500, L501.4020 ####[facility] [address] [place], [address] Lymphocytes/100 WBC (Bld) 3.9 % Low 19-41 [facility] Comment on above: Performed By: #### L 100.0100, L500.2500, L501.4020 ####[facility] [address] [place], [address] MCH (RBC) [Entitic mass] 30.0 pg Normal 27.0-32.0 [facility] Comment on above: Performed By: #### L 100.0100, L500.2500, L501.4020 ####[facility] [address] [place], [address] MCHC (RBC) [Mass/Vol] 33.7 g/dL Normal 32-36 [facility] Comment on above: Performed By: #### L 100.0100, L500.2500, L501.4020 ####[facility] [address] [place], [address] MCV (RBC) [Entitic vol] 88.9 fL Normal 80-94 [facility] Comment on above: Performed By: #### L 100.0100, L500.2500, L501.4020 ####[facility] [address] [place], [address] Monocytes/100 WBC (Bld) 3.2 % Normal 0-10 [facility] Comment on above: Performed By: #### L 100.0100, L500.2500, L501.4020 ####[facility] [address] [place], [address] Neutrophils/100 WBC (Bld) 91.6 % High 47-70 [facility] Comment on above: Performed By: #### L 100.0100, L500.2500, L501.4020 ####[facility] [address] [place], [address] Nucleated RBC (Bld) [#/Vol] 0 10*3/uL Normal 0-5 [facility] Comment on above: Performed By: #### L 100.0100, L500.2500, L501.4020 ####[facility] [address] [place], [address] Platelet mean volume (Bld) [Entitic vol] 9.2 fL Normal 6.2-12.0 [facility] Comment on above: Performed By: #### L 100.0100, L500.2500, L501.4020 ####[facility] [address] [place], [address] Platelets (Bld) [#/Vol] 449 10*3/uL Normal 150-450 [facility] Comment on above: Performed By: #### L 100.0100, L500.2500, L501.4020 ####[facility] [address] [place], [address] RBC (Bld) [#/Vol] 4.14 10*6/uL Low 4.6-6.2 [facility] Comment on above: Performed By: #### L 100.0100, L500.2500, L501.4020 ####[facility] [address] [place], [address] RDW SD 46.6 fl High 35.1-43.9 [facility] Comment on above: Performed By: #### L 100.0100, L500.2500, L501.4020 ####[facility] [address] [place], [address] WBC (Bld) [#/Vol] 15.2 10*3/uL High 4.4-11.0 [facility] Comment on above: Performed By: #### L 100.0100, L500.2500, L501.4020 ####[facility] [address] [place], [address] Emergency Department Summary on 06-30-2024 Emergency Department Summary Normal [facility] L501.4020on 06-30-2024 TROPONIN-I HS 20 pg/mL Normal 3.0-78.0 [facility] Comment on above: Order Comment: 'TROP ' Serial specimen #1, #2 or #3: 1 Result Comment: Edilberto conn Note: New Test Units and Gender Specific Reference Ranges. For more information see Policy Stat Procedure [place] High Sensitivity Troponin (TNIH) and attachments. Performed By: #### L 100.0100, L500.2500, L501.4020 ####[facility] [address] [place], [address] Basic Metabolic Profile (BMP )on 06-29-2024 BUN/CRE 15.0 RATIO Normal 07-13 [facility] Comment on above: Performed By: #### L 100.0100, L500.2500, L500.3400, L501.2450 ####[facility] [address] [place], [address] CA,Total 8.8 mg/dL Normal 8.5-10.1 [facility] Comment on above: Performed By: #### L 100.0100, L500.2500, L500.3400, L501.2450 ####[facility] [address] [place], [address] Chloride [Moles/Vol] 102 mmol/L Normal 98-107 [facility] Comment on above: Performed By: #### L 100.0100, L500.2500, L500.3400, L501.2450 ####[facility] [address] [place], [address] CO2 [Moles/Vol] 21.0 mmol/L Normal 21.0-32.0 [facility] Comment on above: Performed By: #### L 100.0100, L500.2500, L500.3400, L501.2450 ####[facility] [address] [place], [address] Creatinine [Mass/Vol] 0.93 mg/dL Normal 0.70-1.30 [facility] Comment on above: Result Comment: The validity of the calculated GFR GFRAA in patients over70 years has not been determined. Clinical correlation isessential. Performed By: #### L 100.0100, L500.2500, L500.3400, L501.2450 ####[facility] [address] [place], [address] ECRCL 80.68 ml/min Normal [facility] Comment on above: Performed By: #### L 100.0100, L500.2500, L500.3400, L501.2450 ####[facility] [address] [place], [address] EST GFR - AA 104 mL/min Normal >60 [facility] Comment on above: Result Comment: Afri can [place] GFR Calc Performed By: #### L 100.0100, L500.2500, L500.3400, L501.2450 ####[facility] [address] [place], [address] GAP 7 Normal 5-15 [facility] Comment on above: Performed By: #### L 100.0100, L500.2500, L500.3400, L501.2450 ####[facility] [address] [place], [address] GFR/1.73 sq M.predicted among non-blacks MDRD (S/P/Bld) [Vol rate/Area] 86 mL/min/{1.73_m2} Normal >60 [facility] Comment on above: Result Comment: Non- GFR Calc Performed By: #### L 100.0100, L500.2500, L500.3400, L501.2450 ####[facility] [address] [place], [address] Glucose [Mass/Vol] 107 mg/dL High 74-106 [facility] Comment on above: Result Comment: Fast ing Glucose result from 100 to 125 mg/dLsuggests IMPAIRED HOMEOSTASIS per A.D.A. criteria. Performed By: #### L 100.0100, L500.2500, L500.3400, L501.2450 ####[facility] [address] [place], [address] Potassium [Moles/Vol] 4.7 mmol/L Normal 3.5-5.1 [facility] Comment on above: Result Comment: Mode rate Hemolysis, Result may be falsely increased. Performed By: #### L 100.0100, L500.2500, L500.3400, L501.2450 ####[facility] [address] [place], [address] Sodium [Moles/Vol] 130 mmol/L Low 136-145 [facility] Comment on above: Performed By: #### L 100.0100, L500.2500, L500.3400, L501.2450 ####[facility] [address] [place], [address] Urea nitrogen [Mass/Vol] 14 mg/dL Normal 7-18 [facility] Comment on above: Performed By: #### L 100.0100, L500.2500, L500.3400, L501.2450 ####[facility] [address] [place], [address] CBC W/Diff, Automatedon 10-0 6-2024 Absolute Lymph 0.65 X10 3/uL Low 0.83-4.51 [facility] Comment on above: Performed By: #### L 100.0100, L500.2500, L500.3400, L501.2450 ####[facility] [address] [place], [address] Absolute Neut 9.4 X10 3/uL High 2.0-7.7 [facility] Comment on above: Performed By: #### L 100.0100, L500.2500, L500.3400, L501.2450 ####[facility] [address] [place], [address] Basophils/100 WBC (Bld) 0.2 % Normal 0-1 [facility] Comment on above: Performed By: #### L 100.0100, L500.2500, L500.3400, L501.2450 ####[facility] [address] [place], [address] Eosinophils/100 WBC (Bld) 0.1 % Normal 0-5 [facility] Comment on above: Performed By: #### L 100.0100, L500.2500, L500.3400, L501.2450 ####[facility] [address] [place], [address] Erythrocyte distribution width (RBC) [Ratio] 14.5 % Normal 11.6-14.6 [facility] Comment on above: Performed By: #### L 100.0100, L500.2500, L500.3400, L501.2450 ####[facility] [address] [place], [address] Hematocrit (Bld) [Volume fraction] 35.3 % Low 40-54 [facility] Comment on above: Performed By: #### L 100.0100, L500.2500, L500.3400, L501.2450 ####[facility] [address] [place], [address] Hemoglobin (Bld) [Mass/Vol] 11.7 g/dL Low 13.0-16.5 [facility] Comment on above: Performed By: #### L 100.0100, L500.2500, L500.3400, L501.2450 ####[facility] [address] [place], [address] IG% 0.800 Normal 0.0-0.9 [facility] Comment on above: Result Comment: IG% - Immature Granulocytes (promyelocytes, myelocytes andmetamyelocytes) > 1% indicates that a LEFT SHIFT is Present. Performed By: #### L 100.0100, L500.2500, L500.3400, L501.2450 ####[facility] [address] [place], [address] Lymphocytes/100 WBC (Bld) 6.2 % Low 19-41 [facility] Comment on above: Performed By: #### L 100.0100, L500.2500, L500.3400, L501.2450 ####[facility] [address] [place], [address] MCH (RBC) [Entitic mass] 29.5 pg Normal 27.0-32.0 [facility] Comment on above: Performed By: #### L 100.0100, L500.2500, L500.3400, L501.2450 ####[facility] [address] [place], [address] MCHC (RBC) [Mass/Vol] 33.1 g/dL Normal 32-36 [facility] Comment on above: Performed By: #### L 100.0100, L500.2500, L500.3400, L501.2450 ####[facility] [address] [place], [address] MCV (RBC) [Entitic vol] 89.1 fL Normal 80-94 [facility] Comment on above: Performed By: #### L 100.0100, L500.2500, L500.3400, L501.2450 ####[facility] [address] [place], [address] Monocytes/100 WBC (Bld) 3.5 % Normal 0-10 [facility] Comment on above: Performed By: #### L 100.0100, L500.2500, L500.3400, L501.2450 ####[facility] [address] [place], [address] Neutrophils/100 WBC (Bld) 89.2 % High 47-70 [facility] Comment on above: Performed By: #### L 100.0100, L500.2500, L500.3400, L501.2450 ####[facility] [address] [place], [address] Nucleated RBC (Bld) [#/Vol] 0 10*3/uL Normal 0-5 [facility] Comment on above: Performed By: #### L 100.0100, L500.2500, L500.3400, L501.2450 ####[facility] [address] [place], [address] Platelet mean volume (Bld) [Entitic vol] 9.1 fL Normal 6.2-12.0 [facility] Comment on above: Performed By: #### L 100.0100, L500.2500, L500.3400, L501.2450 ####[facility] [address] [place], [address] Platelets (Bld) [#/Vol] 345 10*3/uL Normal 150-450 [facility] Comment on above: Performed By: #### L 100.0100, L500.2500, L500.3400, L501.2450 ####[facility] [address] [place], [address] RBC (Bld) [#/Vol] 3.96 10*6/uL Low 4.6-6.2 [facility] Comment on above: Performed By: #### L 100.0100, L500.2500, L500.3400, L501.2450 ####[facility] [address] [place], [address] RDW SD 47.0 fl High 35.1-43.9 [facility] Comment on above: Performed By: #### L 100.0100, L500.2500, L500.3400, L501.2450 ####[facility] [address] [place], [address] WBC (Bld) [#/Vol] 10.5 10*3/uL Normal 4.4-11.0 [facility] Comment on above: Performed By: #### L 100.0100, L500.2500, L500.3400, L501.2450 ####[facility] [address] [place], [address] Emergency Department Summary on 06-29-2024 Emergency Department Summary Normal [facility] Lipaseon 06-29-2024 Lipase [Catalytic activity/Vol] 27 U/L Normal 13-75 [facility] Comment on above: Result Comment: Edilberto conn note:LIPASE revised reference range effective 23.New Lipase methodology. Expected to produce lower valuesthan the previous assay method.NEW Reference Range: 13 - 75 U/L Performed By: #### L 100.0100, L500.2500, L500.3400, L501.2450 ####[facility] [address] [place], [address] Liver Profileon 06-29-2024 Albumin [Mass/Vol] 3.4 g/dL Normal 3.2-5.0 [facility] Comment on above: Performed By: #### L 100.0100, L500.2500, L500.3400, L501.2450 ####[facility] [address] [place], [address] ALK P 41 U/L Low 45-117 [facility] Comment on above: Performed By: #### L 100.0100, L500.2500, L500.3400, L501.2450 ####[facility] [address] [place], [address] ALT [Catalytic activity/Vol] 15 U/L Low 16-61 [facility] Comment on above: Performed By: #### L 100.0100, L500.2500, L500.3400, L501.2450 ####[facility] [address] [place], [address] AST [Catalytic activity/Vol] 21 U/L Normal 15-37 [facility] Comment on above: Result Comment: Mode rate Hemolysis, Result may be falsely increased. Performed By: #### L 100.0100, L500.2500, L500.3400, L501.2450 ####[facility] [address] [place], [address] Bilirubin [Mass/Vol] 0.50 mg/dL Normal 0.20-1.00 [facility] Comment on above: Result Comment: For patients on eltrombopag therapy, use of Dimension [place] TBIL is not recommended. Performed By: #### L 100.0100, L500.2500, L500.3400, L501.2450 ####[facility] [address] [place], [address] Bilirubin.direct [Mass/Vol] 0.14 mg/dL Normal 0.00-0.30 [facility] Comment on above: Result Comment: Spec imen is hemolyzed. The presence of hemoglobin canfalsley depress direct bilirubin reslts. Collection of anew specimen is suggested if clinicaly indicated. Performed By: #### L 100.0100, L500.2500, L500.3400, L501.2450 ####[facility] [address] [place], [address] Globulin (S) [Mass/Vol] 2.7 g/dL Normal 2.2-4.2 [facility] Comment on above: Performed By: #### L 100.0100, L500.2500, L500.3400, L501.2450 ####[facility] [address] [place], [address] T PROT 6.1 g/dL Low 6.4-8.2 [facility] Comment on above: Performed By: #### L 100.0100, L500.2500, L500.3400, L501.2450 ####[facility] [address] [place], [address] Office Visit Reporton 2023 Office Visit Report Normal [facility] Office Visit Reporton 2023 Office Visit Report Normal [facility] Office Visit Reporton 2023 Office Visit Report Normal [facility] Basic Metabolic Profile (BMP )on 03-28-2024 BUN/CRE 12.8 RATIO Normal 10-20 [facility] Comment on above: Performed By: #### L 500.3400, L501.2450, L100.0100, L500.2500 ####[facility] [address] [place], [address] CA,Total 9.7 mg/dL Normal 8.5-10.1 [facility] Comment on above: Performed By: #### L 500.3400, L501.2450, L100.0100, L500.2500 ####[facility] [address] [place], [address] Chloride [Moles/Vol] 109 mmol/L High 98-107 [facility] Comment on above: Performed By: #### L 500.3400, L501.2450, L100.0100, L500.2500 ####[facility] [address] [place], [address] CO2 [Moles/Vol] 18.0 mmol/L Low 21.0-32.0 [facility] Comment on above: Performed By: #### L 500.3400, L501.2450, L100.0100, L500.2500 ####[facility] [address] [place], [address] Creatinine [Mass/Vol] 1.17 mg/dL Normal 0.70-1.30 [facility] Comment on above: Result Comment: The validity of the calculated GFR GFRAA in patients over70 years has not been determined. Clinical correlation isessential. Performed By: #### L 500.3400, L501.2450, L100.0100, L500.2500 ####[facility] [address] [place], [address] ECRCL 64.99 ml/min Normal [facility] Comment on above: Performed By: #### L 500.3400, L501.2450, L100.0100, L500.2500 ####[facility] [address] [place], [address] EST GFR - AA 80 mL/min Normal >60 [facility] Comment on above: Result Comment: Afri can [place] GFR Calc Performed By: #### L 500.3400, L501.2450, L100.0100, L500.2500 ####[facility] [address] [place], [address] GAP 15 Normal 5-15 [facility] Comment on above: Performed By: #### L 500.3400, L501.2450, L100.0100, L500.2500 ####[facility] [address] [place], [address] GFR/1.73 sq M.predicted among non-blacks MDRD (S/P/Bld) [Vol rate/Area] 66 mL/min/{1.73_m2} Normal >60 [facility] Comment on above: Result Comment: Non- GFR Calc Performed By: #### L 500.3400, L501.2450, L100.0100, L500.2500 ####[facility] [address] [place], [address] Glucose [Mass/Vol] 145 mg/dL High 74-106 [facility] Comment on above: Result Comment: Fast ing Glucose result greater than or equal to 126 mg/dLsuggests DIABETES MELLITUS per A.D.A. criteria. Performed By: #### L 500.3400, L501.2450, L100.0100, L500.2500 ####[facility] [address] [place], [address] Potassium [Moles/Vol] 3.4 mmol/L Low 3.5-5.1 [facility] Comment on above: Performed By: #### L 500.3400, L501.2450, L100.0100, L500.2500 ####[facility] [address] [place], [address] Sodium [Moles/Vol] 142 mmol/L Normal 136-145 [facility] Comment on above: Performed By: #### L 500.3400, L501.2450, L100.0100, L500.2500 ####[facility] [address] [place], [address] Urea nitrogen [Mass/Vol] 15 mg/dL Normal 7-18 [facility] Comment on above: Performed By: #### L 500.3400, L501.2450, L100.0100, L500.2500 ####[facility] [address] [place], [address] CBC W/Diff, Automatedon 07-0 5-2024 Absolute Lymph 0.92 X10 3/uL Normal 0.83-4.51 [facility] Comment on above: Performed By: #### L 500.3400, L501.2450, L100.0100, L500.2500 ####[facility] [address] [place], [address] Absolute Neut 17.0 X10 3/uL High 2.0-7.7 [facility] Comment on above: Performed By: #### L 500.3400, L501.2450, L100.0100, L500.2500 ####[facility] [address] [place], [address] Basophils/100 WBC (Bld) 0.2 % Normal 0-1 [facility] Comment on above: Performed By: #### L 500.3400, L501.2450, L100.0100, L500.2500 ####[facility] [address] [place], [address] Eosinophils/100 WBC (Bld) 0.0 % Normal 0-5 [facility] Comment on above: Performed By: #### L 500.3400, L501.2450, L100.0100, L500.2500 ####[facility] [address] [place], [address] Erythrocyte distribution width (RBC) [Ratio] 15.9 % High 11.6-14.6 [facility] Comment on above: Performed By: #### L 500.3400, L501.2450, L100.0100, L500.2500 ####[facility] [address] [place], [address] Hematocrit (Bld) [Volume fraction] 42.0 % Normal 40-54 [facility] Comment on above: Performed By: #### L 500.3400, L501.2450, L100.0100, L500.2500 ####[facility] [address] [place], [address] Hemoglobin (Bld) [Mass/Vol] 14.0 g/dL Normal 13.0-16.5 [facility] Comment on above: Performed By: #### L 500.3400, L501.2450, L100.0100, L500.2500 ####[facility] [address] [place], [address] IG% 0.800 Normal 0.0-0.9 [facility] Comment on above: Result Comment: IG% - Immature Granulocytes (promyelocytes, myelocytes andmetamyelocytes) > 1% indicates that a LEFT SHIFT is Present. Performed By: #### L 500.3400, L501.2450, L100.0100, L500.2500 ####[facility] [address] [place], [address] Lymphocytes/100 WBC (Bld) 4.9 % Low 19-41 [facility] Comment on above: Performed By: #### L 500.3400, L501.2450, L100.0100, L500.2500 ####[facility] [address] [place], [address] MCH (RBC) [Entitic mass] 29.2 pg Normal 27.0-32.0 [facility] Comment on above: Performed By: #### L 500.3400, L501.2450, L100.0100, L500.2500 ####[facility] [address] [place], [address] MCHC (RBC) [Mass/Vol] 33.3 g/dL Normal 32-36 [facility] Comment on above: Performed By: #### L 500.3400, L501.2450, L100.0100, L500.2500 ####[facility] [address] [place], [address] MCV (RBC) [Entitic vol] 87.5 fL Normal 80-94 [facility] Comment on above: Performed By: #### L 500.3400, L501.2450, L100.0100, L500.2500 ####[facility] [address] [place], [address] Monocytes/100 WBC (Bld) 3.6 % Normal 0-10 [facility] [facility] Comment on above: Performed By: #### L 500.3400, L501.2450, L100.0100, L500.2500 ####[facility] [address] [place], [address] Neutrophils/100 WBC (Bld) 90.5 % High 47-70 [facility] Comment on above: Performed By: #### L 500.3400, L501.2450, L100.0100, L500.2500 ####[facility] [address] [place], [address] Nucleated RBC (Bld) [#/Vol] 0 10*3/uL Normal 0-5 [facility] Comment on above: Performed By: #### L 500.3400, L501.2450, L100.0100, L500.2500 ####[facility] [address] [place], [address] Platelet mean volume (Bld) [Entitic vol] 9.7 fL Normal 6.2-12.0 [facility] Comment on above: Performed By: #### L 500.3400, L501.2450, L100.0100, L500.2500 ####[facility] [address] [place], [address] Platelets (Bld) [#/Vol] 410 10*3/uL Normal 150-450 [facility] Comment on above: Performed By: #### L 500.3400, L501.2450, L100.0100, L500.2500 ####[facility] [address] [place], [address] RBC (Bld) [#/Vol] 4.80 10*6/uL Normal 4.6-6.2 [facility] Comment on above: Performed By: #### L 500.3400, L501.2450, L100.0100, L500.2500 ####[facility] [address] [place], [address] RDW SD 51.5 fl High 35.1-43.9 [facility] Comment on above: Performed By: #### L 500.3400, L501.2450, L100.0100, L500.2500 ####[facility] [address] [place], [address] WBC (Bld) [#/Vol] 18.8 10*3/uL High 4.4-11.0 [facility] Comment on above: Performed By: #### L 500.3400, L501.2450, L100.0100, L500.2500 ####[facility] [address] [place], [address] Emergency Department Summary on 03-28-2024 Emergency Department Summary Normal [facility] Lipaseon 03-28-2024 Lipase [Catalytic activity/Vol] 39 U/L Normal 13-75 [facility] Comment on above: Result Comment: Edilberto conn note:LIPASE revised reference range effective 23.New Lipase methodology. Expected to produce lower valuesthan the previous assay method.NEW Reference Range: 13 - 75 U/L Performed By: #### L 500.3400, L501.2450, L100.0100, L500.2500 ####[facility] [address] [place], [address] Liver Profileon 03-28-2024 Albumin [Mass/Vol] 4.2 g/dL Normal 3.2-5.0 [facility] Comment on above: Performed By: #### L 500.3400, L501.2450, L100.0100, L500.2500 ####[facility] [address] [place], [address] ALK P 49 U/L Normal 45-117 [facility] Comment on above: Performed By: #### L 500.3400, L501.2450, L100.0100, L500.2500 ####[facility] [address] [place], [address] ALT [Catalytic activity/Vol] 17 U/L Normal 16-61 [facility] Comment on above: Performed By: #### L 500.3400, L501.2450, L100.0100, L500.2500 ####[facility] [address] [place], [address] AST [Catalytic activity/Vol] 21 U/L Normal 15-37 [facility] Comment on above: Performed By: #### L 500.3400, L501.2450, L100.0100, L500.2500 ####[facility] [address] [place], [address] Bilirubin [Mass/Vol] 0.40 mg/dL Normal 0.20-1.00 [facility] Comment on above: Result Comment: For patients on eltrombopag therapy, use of Dimension [place] TBIL is not recommended. Performed By: #### L 500.3400, L501.2450, L100.0100, L500.2500 ####[facility] [address] [place], [address] Bilirubin.direct [Mass/Vol] 0.19 mg/dL Normal 0.00-0.30 [facility] Comment on above: Performed By: #### L 500.3400, L501.2450, L100.0100, L500.2500 ####[facility] [address] [place], [address] Globulin (S) [Mass/Vol] 3.5 g/dL Normal 2.2-4.2 [facility] Comment on above: Performed By: #### L 500.3400, L501.2450, L100.0100, L500.2500 ####[facility] [address] [place], [address] T PROT 7.7 g/dL Normal 6.4-8.2 [facility] Comment on above: Performed By: #### L 500.3400, L501.2450, L100.0100, L500.2500 ####[facility] [address] [place], [address] CBC W/Diff, Automatedon 07-0 4-2023 Absolute Lymph 1.62 X10 3/uL Normal 0.83-4.51 [facility] Comment on above: Performed By: #### L 100.0100, L500.4050, L501.2450 ####[facility] [address] [place], [address] Absolute Neut 15.5 X10 3/uL High 2.0-7.7 [facility] Comment on above: Performed By: #### L 100.0100, L500.4050, L501.2450 ####[facility] [address] [place], [address] Basophils/100 WBC (Bld) 0.4 % Normal 0-1 [facility] Comment on above: Performed By: #### L 100.0100, L500.4050, L501.2450 ####[facility] [address] [place], [address] Eosinophils/100 WBC (Bld) 1.2 % Normal 0-5 [facility] Comment on above: Performed By: #### L 100.0100, L500.4050, L501.2450 ####[facility] [address] [place], [address] Erythrocyte distribution width (RBC) [Ratio] 15.9 % High 11.6-14.6 [facility] Comment on above: Performed By: #### L 100.0100, L500.4050, L501.2450 ####[facility] [address] [place], [address] Hematocrit (Bld) [Volume fraction] 43.4 % Normal 40-54 [facility] Comment on above: Performed By: #### L 100.0100, L500.4050, L501.2450 ####[facility] [address] [place], [address] Hemoglobin (Bld) [Mass/Vol] 14.3 g/dL Normal 13.0-16.5 [facility] Comment on above: Performed By: #### L 100.0100, L500.4050, L501.2450 ####[facility] [address] [place], [address] IG% 0.600 Normal 0.0-0.9 [facility] Comment on above: Result Comment: IG% - Immature Granulocytes (promyelocytes, myelocytes andmetamyelocytes) > 1% indicates that a LEFT SHIFT is Present. Performed By: #### L 100.0100, L500.4050, L501.2450 ####[facility] [address] [place], [address] Lymphocytes/100 WBC (Bld) 8.8 % Low 19-41 [facility] Comment on above: Performed By: #### L 100.0100, L500.4050, L501.2450 ####[facility] [address] [place], [address] MCH (RBC) [Entitic mass] 28.8 pg Normal 27.0-32.0 [facility] Comment on above: Performed By: #### L 100.0100, L500.4050, L501.2450 ####[facility] [address] [place], [address] MCHC (RBC) [Mass/Vol] 32.9 g/dL Normal 32-36 [facility] Comment on above: Performed By: #### L 100.0100, L500.4050, L501.2450 ####[facility] [address] [place], [address] MCV (RBC) [Entitic vol] 87.3 fL Normal 80-94 [facility] Comment on above: Performed By: #### L 100.0100, L500.4050, L501.2450 ####[facility] [address] [place], [address] Monocytes/100 WBC (Bld) 4.8 % Normal 0-10 [facility] Comment on above: Performed By: #### L 100.0100, L500.4050, L501.2450 ####[facility] [address] [place], [address] Neutrophils/100 WBC (Bld) 84.2 % High 47-70 [facility] Comment on above: Performed By: #### L 100.0100, L500.4050, L501.2450 ####[facility] [address] [place], [address] Nucleated RBC (Bld) [#/Vol] 0 10*3/uL Normal 0-5 [facility] Comment on above: Performed By: #### L 100.0100, L500.4050, L501.2450 ####[facility] [address] [place], [address] Platelet mean volume (Bld) [Entitic vol] 9.5 fL Normal 6.2-12.0 [facility] Comment on above: Performed By: #### L 100.0100, L500.4050, L501.2450 ####[facility] [address] [place], [address] Platelets (Bld) [#/Vol] 409 10*3/uL Normal 150-450 [facility] Comment on above: Performed By: #### L 100.0100, L500.4050, L501.2450 ####[facility] [address] [place], [address] RBC (Bld) [#/Vol] 4.97 10*6/uL Normal 4.6-6.2 [facility] Comment on above: Performed By: #### L 100.0100, L500.4050, L501.2450 ####[facility] [address] [place], [address] RDW SD 51.2 fl High 35.1-43.9 [facility] Comment on above: Performed By: #### L 100.0100, L500.4050, L501.2450 ####[facility] [address] [place], [address] WBC (Bld) [#/Vol] 18.4 10*3/uL High 4.4-11.0 [facility] Comment on above: Performed By: #### L 100.0100, L500.4050, L501.2450 ####[facility] [address] [place], [address] Comprehensive Metabolic Prof ilon 03-27-2024 Albumin [Mass/Vol] 4.0 g/dL Normal 3.2-5.0 [facility] Comment on above: Performed By: #### L 100.0100, L500.4050, L501.2450 ####[facility] [address] [place], [address] Albumin/Globulin [Mass ratio] 1.1 {ratio} Normal 0.9-2.4 [facility] Comment on above: Performed By: #### L 100.0100, L500.4050, L501.2450 ####[facility] [address] [place], [address] ALK P 60 U/L Normal 45-117 [facility] Comment on above: Performed By: #### L 100.0100, L500.4050, L501.2450 ####[facility] [address] [place], [address] ALT [Catalytic activity/Vol] 15 U/L Low 16-61 [facility] Comment on above: Performed By: #### L 100.0100, L500.4050, L501.2450 ####[facility] [address] [place], [address] AST [Catalytic activity/Vol] 17 U/L Normal 15-37 [facility] Comment on above: Performed By: #### L 100.0100, L500.4050, L501.2450 ####[facility] [address] [place], [address] Bilirubin [Mass/Vol] 0.30 mg/dL Normal 0.20-1.00 [facility] Comment on above: Result Comment: For patients on eltrombopag therapy, use of Dimension [place] TBIL is not recommended. Performed By: #### L 100.0100, L500.4050, L501.2450 ####[facility] [address] [place], [address] BUN/CRE 19.8 RATIO Normal 10-20 [facility] Comment on above: Performed By: #### L 100.0100, L500.4050, L501.2450 ####[facility] [address] [place], [address] CA,Total 9.9 mg/dL Normal 8.5-10.1 [facility] Comment on above: Performed By: #### L 100.0100, L500.4050, L501.2450 ####[facility] [address] [place], [address] Chloride [Moles/Vol] 108 mmol/L High 98-107 [facility] Comment on above: Performed By: #### L 100.0100, L500.4050, L501.2450 ####[facility] [address] [place], [address] CO2 [Moles/Vol] 23.0 mmol/L Normal 21.0-32.0 [facility] Comment on above: Performed By: #### L 100.0100, L500.4050, L501.2450 ####[facility] [address] [place], [address] Creatinine [Mass/Vol] 1.01 mg/dL Normal 0.70-1.30 [facility] Comment on above: Result Comment: The validity of the calculated GFR GFRAA in patients over70 years has not been determined. Clinical correlation isessential. Performed By: #### L 100.0100, L500.4050, L501.2450 ####[facility] [address] [place], [address] ECRCL 75.29 ml/min Normal [facility] Comment on above: Performed By: #### L 100.0100, L500.4050, L501.2450 ####[facility] [address] [place], [address] EST GFR - AA 95 mL/min Normal >60 [facility] Comment on above: Result Comment: Afri can [place] GFR Calc Performed By: #### L 100.0100, L500.4050, L501.2450 ####[facility] [address] [place], [address] GAP 7 Normal 5-15 [facility] Comment on above: Performed By: #### L 100.0100, L500.4050, L501.2450 ####[facility] [address] [place], [address] GFR/1.73 sq M.predicted among non-blacks MDRD (S/P/Bld) [Vol rate/Area] 79 mL/min/{1.73_m2} Normal >60 [facility] Comment on above: Result Comment: Non- GFR Calc Performed By: #### L 100.0100, L500.4050, L501.2450 ####[facility] [address] [place], [address] Globulin (S) [Mass/Vol] 3.7 g/dL Normal 2.2-4.2 [facility] Comment on above: Performed By: #### L 100.0100, L500.4050, L501.2450 ####[facility] [address] [place], [address] Glucose [Mass/Vol] 126 mg/dL High 74-106 [facility] Comment on above: Result Comment: Fast ing Glucose result greater than or equal to 126 mg/dLsuggests DIABETES MELLITUS per A.D.A. criteria. Performed By: #### L 100.0100, L500.4050, L501.2450 ####[facility] [address] [place], [address] Potassium [Moles/Vol] 3.6 mmol/L Normal 3.5-5.1 [facility] Comment on above: Performed By: #### L 100.0100, L500.4050, L501.2450 ####[facility] [address] [place], [address] Sodium [Moles/Vol] 138 mmol/L Normal 136-145 [facility] Comment on above: Performed By: #### L 100.0100, L500.4050, L501.2450 ####[facility] [address] [place], [address] T PROT 7.7 g/dL Normal 6.4-8.2 [facility] Comment on above: Performed By: #### L 100.0100, L500.4050, L501.2450 ####[facility] [address] [place], [address] Urea nitrogen [Mass/Vol] 20 mg/dL High 7-18 [facility] Comment on above: Performed By: #### L 100.0100, L500.4050, L501.2450 ####[facility] [address] [place], [address] Emergency Department Summary on 03-27-2024 Emergency Department Summary Normal [facility] Lipaseon 03-27-2024 Lipase [Catalytic activity/Vol] 60 U/L Normal 13-75 [facility] Comment on above: Result Comment: Edilberto conn note:LIPASE revised reference range effective 23.New Lipase methodology. Expected to produce lower valuesthan the previous assay method.NEW Reference Range: 13 - 75 U/L Performed By: #### L 100.0100, L500.4050, L501.2450 ####[facility] [address] [place], [address] Office Visit Reporton 2023 Office Visit Report Normal [facility] CBC W/Diff, Automatedon 05-2 Absolute Lymph 1.14 X10 3/uL Normal 0.83-4.51 [facility] Comment on above: Performed By: #### L 100.0100, L500.4050, L501.2450 ####[facility] [address] [place], [address] Absolute Neut 18.6 X10 3/uL High 2.0-7.7 [facility] Comment on above: Performed By: #### L 100.0100, L500.4050, L501.2450 ####[facility] [address] [place], [address] Basophils/100 WBC (Bld) 0.3 % Normal 0-1 [facility] Comment on above: Performed By: #### L 100.0100, L500.4050, L501.2450 ####[facility] [address] [place], [address] Eosinophils/100 WBC (Bld) 0.1 % Normal 0-5 [facility] Comment on above: Performed By: #### L 100.0100, L500.4050, L501.2450 ####[facility] [address] [place], [address] Erythrocyte distribution width (RBC) [Ratio] 15.6 % High 11.6-14.6 [facility] Comment on above: Performed By: #### L 100.0100, L500.4050, L501.2450 ####[facility] [address] [place], [address] Hematocrit (Bld) [Volume fraction] 45.1 % Normal 40-54 [facility] Comment on above: Performed By: #### L 100.0100, L500.4050, L501.2450 ####[facility] [address] [place], [address] Hemoglobin (Bld) [Mass/Vol] 14.7 g/dL Normal 13.0-16.5 [facility] Comment on above: Performed By: #### L 100.0100, L500.4050, L501.2450 ####[facility] [address] [place], [address] IG% 0.600 Normal 0.0-0.9 [facility] Comment on above: Result Comment: IG% - Immature Granulocytes (promyelocytes, myelocytes andmetamyelocytes) > 1% indicates that a LEFT SHIFT is Present. Performed By: #### L 100.0100, L500.4050, L501.2450 ####[facility] [address] [place], [address] Lymphocytes/100 WBC (Bld) 5.5 % Low 19-41 [facility] Comment on above: Performed By: #### L 100.0100, L500.4050, L501.2450 ####[facility] [address] [place], [address] MCH (RBC) [Entitic mass] 28.3 pg Normal 27.0-32.0 [facility] Comment on above: Performed By: #### L 100.0100, L500.4050, L501.2450 ####[facility] [address] [place], [address] MCHC (RBC) [Mass/Vol] 32.6 g/dL Normal 32-36 [facility] Comment on above: Performed By: #### L 100.0100, L500.4050, L501.2450 ####[facility] [address] [place], [address] MCV (RBC) [Entitic vol] 86.9 fL Normal 80-94 [facility] Comment on above: Performed By: #### L 100.0100, L500.4050, L501.2450 ####[facility] [address] [place], [address] Monocytes/100 WBC (Bld) 3.0 % Normal 0-10 [facility] Comment on above: Performed By: #### L 100.0100, L500.4050, L501.2450 ####[facility] [address] [place], [address] Neutrophils/100 WBC (Bld) 90.5 % High 47-70 [facility] Comment on above: Performed By: #### L 100.0100, L500.4050, L501.2450 ####[facility] [address] [place], [address] Nucleated RBC (Bld) [#/Vol] 0 10*3/uL Normal 0-5 [facility] Comment on above: Performed By: #### L 100.0100, L500.4050, L501.2450 ####[facility] [address] [place], [address] Platelet mean volume (Bld) [Entitic vol] 10.1 fL Normal 6.2-12.0 [facility] Comment on above: Performed By: #### L 100.0100, L500.4050, L501.2450 ####[facility] [address] [place], [address] Platelets (Bld) [#/Vol] 427 10*3/uL Normal 150-450 [facility] Comment on above: Performed By: #### L 100.0100, L500.4050, L501.2450 ####[facility] [address] [place], [address] RBC (Bld) [#/Vol] 5.19 10*6/uL Normal 4.6-6.2 [facility] Comment on above: Performed By: #### L 100.0100, L500.4050, L501.2450 ####[facility] [address] [place], [address] RDW SD 49.8 fl High 35.1-43.9 [facility] Comment on above: Performed By: #### L 100.0100, L500.4050, L501.2450 ####[facility] [address] [place], [address] WBC (Bld) [#/Vol] 20.6 10*3/uL High 4.4-11.0 [facility] Comment on above: Performed By: #### L 100.0100, L500.4050, L501.2450 ####[facility] [address] [place], [address] Comprehensive Metabolic Prof ilon 02-15-2024 Albumin [Mass/Vol] 4.0 g/dL Normal 3.2-5.0 [facility] Comment on above: Performed By: #### L 100.0100, L500.4050, L501.2450 ####[facility] [address] [place], [address] Albumin/Globulin [Mass ratio] 1.1 {ratio} Normal 0.9-2.4 [facility] Comment on above: Performed By: #### L 100.0100, L500.4050, L501.2450 ####[facility] [address] [place], [address] ALK P 66 U/L Normal 45-117 [facility] Comment on above: Performed By: #### L 100.0100, L500.4050, L501.2450 ####[facility] [address] [place], [address] ALT [Catalytic activity/Vol] 18 U/L Normal 16-61 [facility] Comment on above: Performed By: #### L 100.0100, L500.4050, L501.2450 ####[facility] [address] [place], [address] AST [Catalytic activity/Vol] 16 U/L Normal 15-37 [facility] Comment on above: Performed By: #### L 100.0100, L500.4050, L501.2450 ####[facility] [address] [place], [address] Bilirubin [Mass/Vol] 0.40 mg/dL Normal 0.20-1.00 [facility] Comment on above: Result Comment: For patients on eltrombopag therapy, use of Dimension [place] TBIL is not recommended. Performed By: #### L 100.0100, L500.4050, L501.2450 ####[facility] [address] [place], [address] BUN/CRE 14.3 RATIO Normal 10-20 [facility] Comment on above: Performed By: #### L 100.0100, L500.4050, L501.2450 ####[facility] [address] [place], [address] CA,Total 9.7 mg/dL Normal 8.5-10.1 [facility] Comment on above: Performed By: #### L 100.0100, L500.4050, L501.2450 ####[facility] [address] [place], [address] Chloride [Moles/Vol] 110 mmol/L High 98-107 [facility] Comment on above: Performed By: #### L 100.0100, L500.4050, L501.2450 ####[facility] [address] [place], [address] CO2 [Moles/Vol] 19.0 mmol/L Low 21.0-32.0 [facility] Comment on above: Performed By: #### L 100.0100, L500.4050, L501.2450 ####[facility] [address] [place], [address] Creatinine [Mass/Vol] 1.12 mg/dL Normal 0.70-1.30 [facility] Comment on above: Result Comment: The validity of the calculated GFR GFRAA in patients over70 years has not been determined. Clinical correlation isessential. Performed By: #### L 100.0100, L500.4050, L501.2450 ####[facility] [address] [place], [address] ECRCL 67.89 ml/min Normal [facility] Comment on above: Performed By: #### L 100.0100, L500.4050, L501.2450 ####[facility] [address] [place], [address] EST GFR - AA 84 mL/min Normal >60 [facility] Comment on above: Result Comment: Afri can [place] GFR Calc Performed By: #### L 100.0100, L500.4050, L501.2450 ####[facility] [address] [place], [address] GAP 12 Normal 5-15 [facility] Comment on above: Performed By: #### L 100.0100, L500.4050, L501.2450 ####[facility] [address] [place], [address] GFR/1.73 sq M.predicted among non-blacks MDRD (S/P/Bld) [Vol rate/Area] 70 mL/min/{1.73_m2} Normal >60 [facility] Comment on above: Result Comment: Non- GFR Calc Performed By: #### L 100.0100, L500.4050, L501.2450 ####[facility] [address] [place], [address] Globulin (S) [Mass/Vol] 3.6 g/dL Normal 2.2-4.2 [facility] Comment on above: Performed By: #### L 100.0100, L500.4050, L501.2450 ####[facility] [address] [place], [address] Glucose [Mass/Vol] 149 mg/dL High 74-106 [facility] Comment on above: Result Comment: Fast ing Glucose result greater than or equal to 126 mg/dLsuggests DIABETES MELLITUS per A.D.A. criteria. Performed By: #### L 100.0100, L500.4050, L501.2450 ####[facility] [address] [place], [address] Potassium [Moles/Vol] 3.3 mmol/L Low 3.5-5.1 [facility] Comment on above: Performed By: #### L 100.0100, L500.4050, L501.2450 ####[facility] [address] [place], [address] Sodium [Moles/Vol] 141 mmol/L Normal 136-145 [facility] Comment on above: Performed By: #### L 100.0100, L500.4050, L501.2450 ####[facility] [address] [place], [address] T PROT 7.6 g/dL Normal 6.4-8.2 [facility] Comment on above: Performed By: #### L 100.0100, L500.4050, L501.2450 ####[facility] [address] [place], [address] Urea nitrogen [Mass/Vol] 16 mg/dL Normal 7-18 [facility] Comment on above: Performed By: #### L 100.0100, L500.4050, L501.2450 ####[facility] [address] [place], [address] Emergency Department Summary on 02-15-2024 Emergency Department Summary Normal [facility] Lipaseon 02-15-2024 Lipase [Catalytic activity/Vol] 44 U/L Normal 13-75 [facility] Comment on above: Result Comment: Edilberto conn note:LIPASE revised reference range effective 23.New Lipase methodology. Expected to produce lower valuesthan the previous assay method.NEW Reference Range: 13 - 75 U/L Performed By: #### L 100.0100, L500.4050, L501.2450 ####[facility] [address] [place], [address] CBC W/Diff, Automatedon 05-2 0-2024 Absolute Lymph 1.00 X10 3/uL Normal 0.83-4.51 [facility] Comment on above: Performed By: #### L 100.0100, L500.4050, L501.2450 ####[facility] [address] [place], [address] Absolute Neut 14.0 X10 3/uL High 2.0-7.7 [facility] Comment on above: Performed By: #### L 100.0100, L500.4050, L501.2450 ####[facility] [address] [place], [address] Basophils/100 WBC (Bld) 0.4 % Normal 0-1 [facility] Comment on above: Performed By: #### L 100.0100, L500.4050, L501.2450 ####[facility] [address] [place], [address] Eosinophils/100 WBC (Bld) 0.1 % Normal 0-5 [facility] Comment on above: Performed By: #### L 100.0100, L500.4050, L501.2450 ####[facility] [address] [place], [address] Erythrocyte distribution width (RBC) [Ratio] 15.9 % High 11.6-14.6 [facility] Comment on above: Performed By: #### L 100.0100, L500.4050, L501.2450 ####[facility] [address] [place], [address] Hematocrit (Bld) [Volume fraction] 43.9 % Normal 40-54 [facility] Comment on above: Performed By: #### L 100.0100, L500.4050, L501.2450 ####[facility] [address] [place], [address] Hemoglobin (Bld) [Mass/Vol] 14.1 g/dL Normal 13.0-16.5 [facility] Comment on above: Performed By: #### L 100.0100, L500.4050, L501.2450 ####[facility] [address] [place], [address] IG% 0.600 Normal 0.0-0.9 [facility] Comment on above: Result Comment: IG% - Immature Granulocytes (promyelocytes, myelocytes andmetamyelocytes) > 1% indicates that a LEFT SHIFT is Present. Performed By: #### L 100.0100, L500.4050, L501.2450 ####[facility] [address] [place], [address] Lymphocytes/100 WBC (Bld) 6.5 % Low 19-41 [facility] Comment on above: Performed By: #### L 100.0100, L500.4050, L501.2450 ####[facility] [address] [place], [address] MCH (RBC) [Entitic mass] 28.0 pg Normal 27.0-32.0 [facility] Comment on above: Performed By: #### L 100.0100, L500.4050, L501.2450 ####[facility] [address] [place], [address] MCHC (RBC) [Mass/Vol] 32.1 g/dL Normal 32-36 [facility] Comment on above: Performed By: #### L 100.0100, L500.4050, L501.2450 ####[facility] [address] [place], [address] MCV (RBC) [Entitic vol] 87.1 fL Normal 80-94 [facility] Comment on above: Performed By: #### L 100.0100, L500.4050, L501.2450 ####[facility] [address] [place], [address] Monocytes/100 WBC (Bld) 2.4 % Normal 0-10 [facility] Comment on above: Performed By: #### L 100.0100, L500.4050, L501.2450 ####[facility] [address] [place], [address] Neutrophils/100 WBC (Bld) 90.0 % High 47-70 [facility] Comment on above: Performed By: #### L 100.0100, L500.4050, L501.2450 ####[facility] [address] [place], [address] Nucleated RBC (Bld) [#/Vol] 0 10*3/uL Normal 0-5 [facility] Comment on above: Performed By: #### L 100.0100, L500.4050, L501.2450 ####[facility] [address] [place], [address] Platelet mean volume (Bld) [Entitic vol] 9.7 fL Normal 6.2-12.0 [facility] Comment on above: Performed By: #### L 100.0100, L500.4050, L501.2450 ####[facility] [address] [place], [address] Platelets (Bld) [#/Vol] 464 10*3/uL High 150-450 [facility] Comment on above: Performed By: #### L 100.0100, L500.4050, L501.2450 ####[facility] [address] [place], [address] RBC (Bld) [#/Vol] 5.04 10*6/uL Normal 4.6-6.2 [facility] Comment on above: Performed By: #### L 100.0100, L500.4050, L501.2450 ####[facility] [address] [place], [address] RDW SD 50.4 fl High 35.1-43.9 [facility] Comment on above: Performed By: #### L 100.0100, L500.4050, L501.2450 ####[facility] [address] [place], [address] WBC (Bld) [#/Vol] 15.5 10*3/uL High 4.4-11.0 [facility] Comment on above: Performed By: #### L 100.0100, L500.4050, L501.2450 ####[facility] [address] [place], [address] Comprehensive Metabolic Prof uton 02-11-2024 Albumin [Mass/Vol] 3.9 g/dL Normal 3.2-5.0 [facility] Comment on above: Performed By: #### L 100.0100, L500.4050, L501.2450 ####[facility] [address] [place], [address] Albumin/Globulin [Mass ratio] 1.0 {ratio} Normal 0.9-2.4 [facility] Comment on above: Performed By: #### L 100.0100, L500.4050, L501.2450 ####[facility] [address] [place], [address] ALK P 59 U/L Normal 45-117 [facility] Comment on above: Performed By: #### L 100.0100, L500.4050, L501.2450 ####[facility] [address] [place], [address] ALT [Catalytic activity/Vol] 18 U/L Normal 16-61 [facility] Comment on above: Performed By: #### L 100.0100, L500.4050, L501.2450 ####[facility] [address] [place], [address] AST [Catalytic activity/Vol] 21 U/L Normal 15-37 [facility] Comment on above: Result Comment: Slig ht Hemolysis, Result may be falsely increased. Performed By: #### L 100.0100, L500.4050, L501.2450 ####[facility] [address] [place], [address] Bilirubin [Mass/Vol] 0.40 mg/dL Normal 0.20-1.00 [facility] Comment on above: Result Comment: For patients on eltrombopag therapy, use of Dimension [place] TBIL is not recommended. Performed By: #### L 100.0100, L500.4050, L501.2450 ####[facility] [address] [place], [address] BUN/CRE 11.7 RATIO Normal 10-20 [facility] Comment on above: Performed By: #### L 100.0100, L500.4050, L501.2450 ####[facility] [address] [place], [address] CA,Total 9.4 mg/dL Normal 8.5-10.1 [facility] Comment on above: Performed By: #### L 100.0100, L500.4050, L501.2450 ####[facility] [address] [place], [address] Chloride [Moles/Vol] 109 mmol/L High 98-107 [facility] Comment on above: Performed By: #### L 100.0100, L500.4050, L501.2450 ####[facility] [address] [place], [address] CO2 [Moles/Vol] 23.0 mmol/L Normal 21.0-32.0 [facility] Comment on above: Performed By: #### L 100.0100, L500.4050, L501.2450 ####[facility] [address] [place], [address] Creatinine [Mass/Vol] 1.20 mg/dL Normal 0.70-1.30 [facility] Comment on above: Result Comment: The validity of the calculated GFR GFRAA in patients over70 years has not been determined. Clinical correlation isessential. Performed By: #### L 100.0100, L500.4050, L501.2450 ####[facility] [address] [place], [address] ECRCL 63.37 ml/min Normal [facility] Comment on above: Performed By: #### L 100.0100, L500.4050, L501.2450 ####[facility] [address] [place], [address] EST GFR - AA 78 mL/min Normal >60 [facility] Comment on above: Result Comment: Afri can [place] GFR Calc Performed By: #### L 100.0100, L500.4050, L501.2450 ####[facility] [address] [place], [address] GAP 8 Normal 5-15 [facility] Comment on above: Performed By: #### L 100.0100, L500.4050, L501.2450 ####[facility] [address] [place], [address] GFR/1.73 sq M.predicted among non-blacks MDRD (S/P/Bld) [Vol rate/Area] 64 mL/min/{1.73_m2} Normal >60 [facility] Comment on above: Result Comment: Non- GFR Calc Performed By: #### L 100.0100, L500.4050, L501.2450 ####[facility] [address] [place], [address] Globulin (S) [Mass/Vol] 3.8 g/dL Normal 2.2-4.2 [facility] Comment on above: Performed By: #### L 100.0100, L500.4050, L501.2450 ####[facility] [address] [place], [address] Glucose [Mass/Vol] 150 mg/dL High 74-106 [facility] Comment on above: Result Comment: Fast ing Glucose result greater than or equal to 126 mg/dLsuggests DIABETES MELLITUS per A.D.A. criteria. Performed By: #### L 100.0100, L500.4050, L501.2450 ####[facility] [address] [place], [address] Potassium [Moles/Vol] 3.6 mmol/L Normal 3.5-5.1 [facility] Comment on above: Result Comment: Slig ht Hemolysis, Result may be falsely increased. Performed By: #### L 100.0100, L500.4050, L501.2450 ####[facility] [address] [place], [address] Sodium [Moles/Vol] 140 mmol/L Normal 136-145 [facility] Comment on above: Performed By: #### L 100.0100, L500.4050, L501.2450 ####[facility] [address] [place], [address] T PROT 7.7 g/dL Normal 6.4-8.2 [facility] Comment on above: Performed By: #### L 100.0100, L500.4050, L501.2450 ####[facility] [address] [place], [address] Urea nitrogen [Mass/Vol] 14 mg/dL Normal 7-18 [facility] Comment on above: Performed By: #### L 100.0100, L500.4050, L501.2450 ####[facility] [address] [place], [address] Emergency Department Summary on 02-11-2024 Emergency Department Summary Normal [facility] Lipaseon 02-11-2024 Lipase [Catalytic activity/Vol] 43 U/L Normal 13-75 [facility] Comment on above: Result Comment: Edilberto conn note:LIPASE revised reference range effective 23.New Lipase methodology. Expected to produce lower valuesthan the previous assay method.NEW Reference Range: 13 - 75 U/L Performed By: #### L 100.0100, L500.4050, L501.2450 ####[facility] [address] [place], [address] 12 Lead EKGon 02-07-2024 12 Lead EKG Normal [facility] Basic Metabolic Profile (BMP )on 02-07-2024 BUN/CRE 15.9 RATIO Normal 10-20 [facility] Comment on above: Performed By: #### L 100.0100, L500.2500, L500.3400, L501.2450 ####[facility] [address] [place], [address] CA,Total 9.6 mg/dL Normal 8.5-10.1 [facility] Comment on above: Performed By: #### L 100.0100, L500.2500, L500.3400, L501.2450 ####[facility] [address] [place], [address] Chloride [Moles/Vol] 100 mmol/L Normal 98-107 [facility] Comment on above: Performed By: #### L 100.0100, L500.2500, L500.3400, L501.2450 ####[facility] [address] [place], [address] CO2 [Moles/Vol] 21.0 mmol/L Normal 21.0-32.0 [facility] Comment on above: Performed By: #### L 100.0100, L500.2500, L500.3400, L501.2450 ####[facility] [address] [place], [address] Creatinine [Mass/Vol] 1.07 mg/dL Normal 0.70-1.30 [facility] Comment on above: Result Comment: The validity of the calculated GFR GFRAA in patients over70 years has not been determined. Clinical correlation isessential. Performed By: #### L 100.0100, L500.2500, L500.3400, L501.2450 ####[facility] [address] [place], [address] ECRCL 71.07 ml/min Normal [facility] Comment on above: Performed By: #### L 100.0100, L500.2500, L500.3400, L501.2450 ####[facility] [address] [place], [address] EST GFR - AA 89 mL/min Normal >60 [facility] Comment on above: Result Comment: Afri can [place] GFR Calc Performed By: #### L 100.0100, L500.2500, L500.3400, L501.2450 ####[facility] [address] [place], [address] GAP 10 Normal 5-15 [facility] Comment on above: Performed By: #### L 100.0100, L500.2500, L500.3400, L501.2450 ####[facility] [address] [place], [address] GFR/1.73 sq M.predicted among non-blacks MDRD (S/P/Bld) [Vol rate/Area] 74 mL/min/{1.73_m2} Normal >60 [facility] Comment on above: Result Comment: Non- GFR Calc Performed By: #### L 100.0100, L500.2500, L500.3400, L501.2450 ####[facility] [address] [place], [address] Glucose [Mass/Vol] 107 mg/dL High 74-106 [facility] Comment on above: Result Comment: Fast ing Glucose result from 100 to 125 mg/dLsuggests IMPAIRED HOMEOSTASIS per A.D.A. criteria. Performed By: #### L 100.0100, L500.2500, L500.3400, L501.2450 ####[facility] [address] [place], [address] Potassium [Moles/Vol] 4.2 mmol/L Normal 3.5-5.1 [facility] Comment on above: Result Comment: Mode rate Hemolysis, Result may be falsely increased. Performed By: #### L 100.0100, L500.2500, L500.3400, L501.2450 ####[facility] [address] [place], [address] Sodium [Moles/Vol] 131 mmol/L Low 136-145 [facility] Comment on above: Performed By: #### L 100.0100, L500.2500, L500.3400, L501.2450 ####[facility] [address] [place], [address] Urea nitrogen [Mass/Vol] 17 mg/dL Normal 7-18 [facility] Comment on above: Performed By: #### L 100.0100, L500.2500, L500.3400, L501.2450 ####[facility] [address] [place], [address] CBC W/Diff, Automatedon 05 Absolute Lymph 2.11 X10 3/uL Normal 0.83-4.51 [facility] Comment on above: Performed By: #### L 100.0100, L500.2500, L500.3400, L501.2450 ####[facility] [address] [place], [address] Absolute Neut 15.7 X10 3/uL High 2.0-7.7 [facility] Comment on above: Performed By: #### L 100.0100, L500.2500, L500.3400, L501.2450 ####[facility] [address] [place], [address] Basophils/100 WBC (Bld) 0.4 % Normal 0-1 [facility] Comment on above: Performed By: #### L 100.0100, L500.2500, L500.3400, L501.2450 ####[facility] [address] [place], [address] Eosinophils/100 WBC (Bld) 1.1 % Normal 0-5 [facility] Comment on above: Performed By: #### L 100.0100, L500.2500, L500.3400, L501.2450 ####[facility] [address] [place], [address] Erythrocyte distribution width (RBC) [Ratio] 16.0 % High 11.6-14.6 [facility] Comment on above: Performed By: #### L 100.0100, L500.2500, L500.3400, L501.2450 ####[facility] [address] [place], [address] Hematocrit (Bld) [Volume fraction] 41.3 % Normal 40-54 [facility] Comment on above: Performed By: #### L 100.0100, L500.2500, L500.3400, L501.2450 ####[facility] [address] [place], [address] Hemoglobin (Bld) [Mass/Vol] 13.6 g/dL Normal 13.0-16.5 [facility] Comment on above: Performed By: #### L 100.0100, L500.2500, L500.3400, L501.2450 ####[facility] [address] [place], [address] IG% 1.000 High 0.0-0.9 [facility] Comment on above: Result Comment: IG% - Immature Granulocytes (promyelocytes, myelocytes andmetamyelocytes) > 1% indicates that a LEFT SHIFT is Present. Performed By: #### L 100.0100, L500.2500, L500.3400, L501.2450 ####[facility] [address] [place], [address] Lymphocytes/100 WBC (Bld) 10.9 % Low 19-41 [facility] Comment on above: Performed By: #### L 100.0100, L500.2500, L500.3400, L501.2450 ####[facility] [address] [place], [address] MCH (RBC) [Entitic mass] 28.2 pg Normal 27.0-32.0 [facility] Comment on above: Performed By: #### L 100.0100, L500.2500, L500.3400, L501.2450 ####[facility] [address] [place], [address] MCHC (RBC) [Mass/Vol] 32.9 g/dL Normal 32-36 [facility] Comment on above: Performed By: #### L 100.0100, L500.2500, L500.3400, L501.2450 ####[facility] [address] [place], [address] MCV (RBC) [Entitic vol] 85.5 fL Normal 80-94 [facility] Comment on above: Performed By: #### L 100.0100, L500.2500, L500.3400, L501.2450 ####[facility] [address] [place], [address] Monocytes/100 WBC (Bld) 5.9 % Normal 0-10 [facility] Comment on above: Performed By: #### L 100.0100, L500.2500, L500.3400, L501.2450 ####[facility] [address] [place], [address] Neutrophils/100 WBC (Bld) 80.7 % High 47-70 [facility] Comment on above: Performed By: #### L 100.0100, L500.2500, L500.3400, L501.2450 ####[facility] [address] [place], [address] Nucleated RBC (Bld) [#/Vol] 0 10*3/uL Normal 0-5 [facility] Comment on above: Performed By: #### L 100.0100, L500.2500, L500.3400, L501.2450 ####[facility] [address] [place], [address] Platelet mean volume (Bld) [Entitic vol] 9.7 fL Normal 6.2-12.0 [facility] Comment on above: Performed By: #### L 100.0100, L500.2500, L500.3400, L501.2450 ####[facility] [address] [place], [address] Platelets (Bld) [#/Vol] 433 10*3/uL Normal 150-450 [facility] Comment on above: Performed By: #### L 100.0100, L500.2500, L500.3400, L501.2450 ####[facility] [address] [place], [address] RBC (Bld) [#/Vol] 4.83 10*6/uL Normal 4.6-6.2 [facility] Comment on above: Performed By: #### L 100.0100, L500.2500, L500.3400, L501.2450 ####[facility] [address] [place], [address] RDW SD 50.3 fl High 35.1-43.9 [facility] Comment on above: Performed By: #### L 100.0100, L500.2500, L500.3400, L501.2450 ####[facility] [address] [place], [address] WBC (Bld) [#/Vol] 19.4 10*3/uL High 4.4-11.0 [facility] Comment on above: Performed By: #### L 100.0100, L500.2500, L500.3400, L501.2450 ####[facility] [address] [place], [address] Emergency Department Summary on 02-07-2024 Emergency Department Summary Normal [facility] Lipaseon 02-07-2024 Lipase [Catalytic activity/Vol] 52 U/L Normal 13-75 [facility] Comment on above: Result Comment: Edilberto conn note:LIPASE revised reference range effective 23.New Lipase methodology. Expected to produce lower valuesthan the previous assay method.NEW Reference Range: 13 - 75 U/L Performed By: #### L 100.0100, L500.2500, L500.3400, L501.2450 ####[facility] [address] [place], [address] Liver Profileon 02-07-2024 Albumin [Mass/Vol] 3.8 g/dL Normal 3.2-5.0 [facility] Comment on above: Performed By: #### L 100.0100, L500.2500, L500.3400, L501.2450 ####[facility] [address] [place], [address] ALK P 66 U/L Normal 45-117 [facility] Comment on above: Performed By: #### L 100.0100, L500.2500, L500.3400, L501.2450 ####[facility] [address] [place], [address] ALT [Catalytic activity/Vol] 19 U/L Normal 16-61 [facility] Comment on above: Performed By: #### L 100.0100, L500.2500, L500.3400, L501.2450 ####[facility] [address] [place], [address] AST [Catalytic activity/Vol] 31 U/L Normal 15-37 [facility] Comment on above: Result Comment: Mode rate Hemolysis, Result may be falsely increased. Performed By: #### L 100.0100, L500.2500, L500.3400, L501.2450 ####[facility] [address] [place], [address] Bilirubin [Mass/Vol] 0.50 mg/dL Normal 0.20-1.00 [facility] Comment on above: Result Comment: For patients on eltrombopag therapy, use of Dimension [place] TBIL is not recommended. Performed By: #### L 100.0100, L500.2500, L500.3400, L501.2450 ####[facility] [address] [place], [address] Bilirubin.direct [Mass/Vol] 0.12 mg/dL Normal 0.00-0.30 [facility] Comment on above: Performed By: #### L 100.0100, L500.2500, L500.3400, L501.2450 ####[facility] [address] [place], [address] Globulin (S) [Mass/Vol] 3.9 g/dL Normal 2.2-4.2 [facility] Comment on above: Performed By: #### L 100.0100, L500.2500, L500.3400, L501.2450 ####[facility] [address] [place], [address] T PROT 7.7 g/dL Normal 6.4-8.2 [facility] Comment on above: Performed By: #### L 100.0100, L500.2500, L500.3400, L501.2450 ####[facility] [address] [place], [address] Office Visit Reporton 2023 Office Visit Report Normal [facility] Abdomen/Pelvis W IV Cont ONL Yon 01-26-2024 Abdomen/Pelvis W IV Cont ONLY Normal [facility] Absolute lymphocyte countOrd ered By: Patience Lane on 01-26-2024 Lymphocytes Auto (Unsp spec) [#/Vol] 1.37 10*3/uL 0.83-4.51 [facility] Automated lymphocyte count a s percentage of total leukocytesOrdered By: Patience Lane on 01-26-2024 Lymphocytes/100 WBC Auto (Unsp spec) 12.4 % 19-41 [facility] Basic Metabolic Profile (BMP )on 01-26-2024 BUN/CRE 11.3 RATIO Normal 10-20 [facility] Comment on above: Performed By: #### L 500.3400, L100.0100, L500.2500 ####[facility] [address] [place], [address] CA,Total 9.5 mg/dL Normal 8.5-10.1 [facility] Comment on above: Performed By: #### L 500.3400, L100.0100, L500.2500 ####[facility] [address] [place], [address] Chloride [Moles/Vol] 103 mmol/L Normal 98-107 [facility] Comment on above: Performed By: #### L 500.3400, L100.0100, L500.2500 ####[facility] [address] [place], [address] CO2 [Moles/Vol] 23.0 mmol/L Normal 21.0-32.0 [facility] Comment on above: Performed By: #### L 500.3400, L100.0100, L500.2500 ####[facility] [address] [place], [address] Creatinine [Mass/Vol] 1.06 mg/dL Normal 0.70-1.30 [facility] Comment on above: Result Comment: The validity of the calculated GFR GFRAA in patients over70 years has not been determined. Clinical correlation isessential. Performed By: #### L 500.3400, L100.0100, L500.2500 ####[facility] [address] [place], [address] ECRCL 71.74 ml/min Normal [facility] Comment on above: Performed By: #### L 500.3400, L100.0100, L500.2500 ####[facility] [address] [place], [address] EST GFR - AA 90 mL/min Normal >60 [facility] Comment on above: Result Comment: Afri can Z[place]ian GFR Calc Performed By: #### L 500.3400, L100.0100, L500.2500 ####[facility] [address] [place], [address] GAP 6 Normal 5-15 [facility] Comment on above: Performed By: #### L 500.3400, L100.0100, L500.2500 ####[facility] [address] [place], [address] GFR/1.73 sq M.predicted among non-blacks MDRD (S/P/Bld) [Vol rate/Area] 74 mL/min/{1.73_m2} Normal >60 [facility] Comment on above: Result Comment: Non- GFR Calc Performed By: #### L 500.3400, L100.0100, L500.2500 ####[facility] [address] [place], [address] Glucose [Mass/Vol] 95 mg/dL Normal 74-106 [facility] Comment on above: Performed By: #### L 500.3400, L100.0100, L500.2500 ####[facility] [address] [place], [address] Potassium [Moles/Vol] 4.1 mmol/L Normal 3.5-5.1 [facility] Comment on above: Performed By: #### L 500.3400, L100.0100, L500.2500 ####[facility] [address] [place], [address] Sodium [Moles/Vol] 132 mmol/L Low 136-145 [facility] Comment on above: Performed By: #### L 500.3400, L100.0100, L500.2500 ####[facility] [address] [place], [address] Urea nitrogen [Mass/Vol] 12 mg/dL Normal 7-18 [facility] Comment on above: Performed By: #### L 500.3400, L100.0100, L500.2500 ####[facility] [address] [place], [address] Basophil percentageOrdered B y: Patience Lane on 01-26-2024 Basophil percentage 0-5 SEEN /hpf 0-5 [facility] Basophils/100 WBC (Bld) 0.5 % 0-1 [facility] Bilirubin [Mass/Vol] 0.40 mg/dL 0.20-1.00 [facility] Comment on above: For patients on eltr ombopag therapy, use of Dimension [place] TBIL is not recommended. Chloride [Moles/Vol] 103 mmol/L 98-107 [facility] Eosinophils/100 WBC (Bld) 3.2 % 0-5 [facility] Glucose [Mass/Vol] 95 mg/dL 74-106 [facility] Hemoglobin (Bld) [Mass/Vol] 14.6 g/dL 13.0-16.5 [facility] Monocytes/100 WBC (Bld) 5.9 % 0-10 [facility] Neutrophils (Bld) [#/Vol] 8.5 10*3/uL 2.0-7.7 [facility] Neutrophils/100 WBC (Bld) 77.4 % 47-70 [facility] Potassium [Moles/Vol] 4.1 mmol/L 3.5-5.1 [facility] Protein [Mass/Vol] 7.3 g/dL 6.4-8.2 [facility] Sodium [Moles/Vol] 132 mmol/L 136-145 [facility] WBC (Bld) [#/Vol] 11.0 10*3/uL 4.4-11.0 [facility] Bilirubin Test strip Ql (U)O rdered By: Patience Lane on 01-26-2024 Bilirubin Ql (U) Negative Negative [facility] CBC W/Diff, Automatedon Absolute Lymph 1.37 X10 3/uL Normal 0.83-4.51 [facility] Comment on above: Performed By: #### L 500.3400, L100.0100, L500.2500 ####[facility] [address] [place], [address] Absolute Neut 8.5 X10 3/uL High 2.0-7.7 [facility] Comment on above: Performed By: #### L 500.3400, L100.0100, L500.2500 ####[facility] [address] [place], [address] Basophils/100 WBC (Bld) 0.5 % Normal 0-1 [facility] Comment on above: Performed By: #### L 500.3400, L100.0100, L500.2500 ####[facility] [address] [place], [address] Eosinophils/100 WBC (Bld) 3.2 % Normal 0-5 [facility] Comment on above: Performed By: #### L 500.3400, L100.0100, L500.2500 ####[facility] [address] [place], [address] Erythrocyte distribution width (RBC) [Ratio] 16.3 % High 11.6-14.6 [facility] Comment on above: Performed By: #### L 500.3400, L100.0100, L500.2500 ####[facility] [address] [place], [address] Hematocrit (Bld) [Volume fraction] 45.0 % Normal 40-54 [facility] Comment on above: Performed By: #### L 500.3400, L100.0100, L500.2500 ####[facility] [address] [place], [address] Hemoglobin (Bld) [Mass/Vol] 14.6 g/dL Normal 13.0-16.5 [facility] Comment on above: Performed By: #### L 500.3400, L100.0100, L500.2500 ####[facility] [address] [place], [address] IG% 0.600 Normal 0.0-0.9 [facility] Comment on above: Result Comment: IG% - Immature Granulocytes (promyelocytes, myelocytes andmetamyelocytes) > 1% indicates that a LEFT SHIFT is Present. Performed By: #### L 500.3400, L100.0100, L500.2500 ####[facility] [address] [place], [address] Lymphocytes/100 WBC (Bld) 12.4 % Low 19-41 [facility] Comment on above: Performed By: #### L 500.3400, L100.0100, L500.2500 ####[facility] [address] [place], [address] MCH (RBC) [Entitic mass] 28.2 pg Normal 27.0-32.0 [facility] Comment on above: Performed By: #### L 500.3400, L100.0100, L500.2500 ####[facility] [address] [place], [address] MCHC (RBC) [Mass/Vol] 32.4 g/dL Normal 32-36 [facility] Comment on above: Performed By: #### L 500.3400, L100.0100, L500.2500 ####[facility] [address] [place], [address] MCV (RBC) [Entitic vol] 87.0 fL Normal 80-94 [facility] Comment on above: Performed By: #### L 500.3400, L100.0100, L500.2500 ####[facility] [address] [place], [address] Monocytes/100 WBC (Bld) 5.9 % Normal 0-10 [facility] Comment on above: Performed By: #### L 500.3400, L100.0100, L500.2500 ####[facility] [address] [place], [address] Neutrophils/100 WBC (Bld) 77.4 % High 47-70 [facility] Comment on above: Performed By: #### L 500.3400, L100.0100, L500.2500 ####[facility] [address] [place], [address] Nucleated RBC (Bld) [#/Vol] 0 10*3/uL Normal 0-5 [facility] Comment on above: Performed By: #### L 500.3400, L100.0100, L500.2500 ####[facility] [address] [place], [address] Platelet mean volume (Bld) [Entitic vol] 9.6 fL Normal 6.2-12.0 [facility] Comment on above: Performed By: #### L 500.3400, L100.0100, L500.2500 ####[facility] [address] [place], [address] Platelets (Bld) [#/Vol] 282 10*3/uL Normal 150-450 [facility] Comment on above: Performed By: #### L 500.3400, L100.0100, L500.2500 ####[facility] [address] [place], [address] RBC (Bld) [#/Vol] 5.17 10*6/uL Normal 4.6-6.2 [facility] Comment on above: Performed By: #### L 500.3400, L100.0100, L500.2500 ####[facility] [address] [place], [address] RDW SD 52.3 fl High 35.1-43.9 [facility] Comment on above: Performed By: #### L 500.3400, L100.0100, L500.2500 ####[facility] [address] [place], [address] WBC (Bld) [#/Vol] 11.0 10*3/uL Normal 4.4-11.0 [facility] Comment on above: Performed By: #### L 500.3400, L100.0100, L500.2500 ####[facility] [address] [place], [address] Determination of erythrocyte mean corpuscular volume (MCV)Ordered By: Patience Lane on 01-26-2024 MCV (RBC) [Entitic vol] 87.0 fL 80-94 [facility] Direct bilirubinOrdered By: Patience Lane on 01-26-2024 Bilirubin.direct [Mass/Vol] 0.15 mg/dL 0.00-0.30 [facility] Emergency Department Summary on 01-26-2024 Emergency Department Summary Normal [facility] Erythrocyte distribution wid th ratioOrdered By: Patience Lane on 01-26-2024 Erythrocyte distribution width (RBC) [Ratio] 16.3 % 11.6-14.6 [facility] Erythrocyte distribution wid th standard deviationOrdered By: Patience Lane on 01-26-2024 Erythrocyte distribution width (RBC) [Entitic vol] 52.3 fL 35.1-43.9 [facility] Hematocrit Auto (Bld) [Volum e fraction]Ordered By: Patience Lane on 01-26-2024 Hematocrit (Bld) [Volume fraction] 45.0 % 40-54 [facility] Immature granulocytes/100 WB C Auto (Bld)Ordered By: Patience Lane on 01-26-2024 Immature granulocytes/100 WBC (Bld) 0.600 % 0.0-0.9 [facility] Comment on above: IG% - Immature Granu locytes (promyelocytes, myelocytes and metamyelocytes) > 1% indicates that a LEFT SHIFT is Present. Ketones Test strip Ql (U)Ord ered By: Patience Lane on 01-26-2024 Ketones Ql (U) Negative Negative [facility] Laboratory - Chemistry and C hemistry - challengeOrdered By: Patience Lane on 01-26-2024 ALP [Catalytic activity/Vol] 53 U/L 45-117 [facility] ALT [Catalytic activity/Vol] 15 U/L 16-61 [facility] CO2 [Moles/Vol] 23.0 mmol/L 21.0-32.0 [facility] Globulin (S) [Mass/Vol] 3.6 g/dL 2.2-4.2 [facility] Urea nitrogen/Creatinine [Mass ratio] 11.3 mg/mg 10-20 [facility] Laboratory - Hematology and Cell countsOrdered By: Patience Lane on 01-26-2024 MCH (RBC) [Entitic mass] 28.2 pg 27.0-32.0 [facility] MCHC (RBC) [Mass/Vol] 32.4 g/dL 32-36 [facility] Nucleated RBC/100 WBC (Bld) [Ratio] 0 % 0-5 [facility] Platelet mean volume (Bld) [Entitic vol] 9.6 fL 6.2-12.0 [facility] Platelets (Bld) [#/Vol] 282 10*3/uL 150-450 [facility] Liver Profileon 01-26-2024 Albumin [Mass/Vol] 3.7 g/dL Normal 3.2-5.0 [facility] Comment on above: Performed By: #### L 500.3400, L100.0100, L500.2500 ####[facility] [address] [place], [address] ALK P 53 U/L Normal 45-117 [facility] Comment on above: Performed By: #### L 500.3400, L100.0100, L500.2500 ####[facility] [address] [place], [address] ALT [Catalytic activity/Vol] 15 U/L Low 16-61 [facility] Comment on above: Performed By: #### L 500.3400, L100.0100, L500.2500 ####[facility] [address] [place], [address] AST [Catalytic activity/Vol] 21 U/L Normal 15-37 [facility] Comment on above: Performed By: #### L 500.3400, L100.0100, L500.2500 ####[facility] [address] [place], [address] Bilirubin [Mass/Vol] 0.40 mg/dL Normal 0.20-1.00 [facility] Comment on above: Result Comment: For patients on eltrombopag therapy, use of Dimension [place] TBIL is not recommended. Performed By: #### L 500.3400, L100.0100, L500.2500 ####[facility] [address] [place], [address] Bilirubin.direct [Mass/Vol] 0.15 mg/dL Normal 0.00-0.30 [facility] Comment on above: Performed By: #### L 500.3400, L100.0100, L500.2500 ####[facility] [address] [place], [address] Globulin (S) [Mass/Vol] 3.6 g/dL Normal 2.2-4.2 [facility] Comment on above: Performed By: #### L 500.3400, L100.0100, L500.2500 ####[facility] [address] [place], [address] T PROT 7.3 g/dL Normal 6.4-8.2 [facility] Comment on above: Performed By: #### L 500.3400, L100.0100, L500.2500 ####[facility] [address] [place], [address] Mucus LM Ql (Urine sed)Order ed By: Patience Lane on 01-26-2024 Mucus Ql (Urine sed) 0 SEEN /hpf [facility] Nitrite Test strip Ql (U)Ord ered By: Patience Lane on 01-26-2024 Nitrite Ql (U) Negative Negative [facility] No Panel InformationOrdered By: Patience Lane on 01-26-2024 Urine RBC 0-5 SEEN /hpf 0-5 [facility] Estimated Creatinine Clearance Calc 71.74 ml/min [facility] Estimated GFR (MDRD) Amer 90 mL/min >60 [facility] Comment on above: GFR Calc Estimated GFR (MDRD) Non-Af Amer 74 mL/min >60 [facility] Comment on above: Non- GFR Calc Protein Test strip Ql (U)Ord ered By: Patience Lane on 01-26-2024 Protein Ql (U) 15 mg/dl Negative [facility] RBC Auto (Bld) [#/Vol]Ordere d By: Patience Lane on 01-26-2024 RBC (Bld) [#/Vol] 5.17 10*6/uL 4.6-6.2 [facility] Serum or plasma calcium madelyn urement (mass/volume)Ordered By: Patience Lane on 01-26-2024 Calcium [Mass/Vol] 9.5 mg/dL 8.5-10.1 [facility] Serum or plasma creatinine m easurement (mass/volume)Ordered By: Patience Lane on 01-26-2024 Creatinine [Mass/Vol] 1.06 mg/dL 0.70-1.30 [facility] Comment on above: The validity of the calculated GFR & GFRAA in patients over 70 years has not been determined. Clinical correlation is essential. Serum or plasma urea nitroge n measurement (mass/volume)Ordered By: Patience Lane on 01-26-2024 Urea nitrogen [Mass/Vol] 12 mg/dL 7-18 [facility] Squamous epithelial cells de tection in urine sediment by light microscopyOrdered By: Patience Lane on 01-26-2024 Epithelial cells.squamous LM Ql (Urine sed) 0 SEEN /hpf 0-5 [facility] Thin prep Papanicolaou smear with manual screeningOrdered By: Patience Lane on 01-26-2024 Thin prep Papanicolaou smear with manual screening 3.7 g/dL 3.2-5.0 [facility] Thin prep Papanicolaou smear with manual screening 21 U/L 15-37 [facility] Thin prep Papanicolaou smear with manual screening 6 5-15 [facility] Urinalysis, Completeon 01-25 RBC 0-5 SEEN Normal 0-5 [facility] Comment on above: Order Comment: GRAEME Mora. PREVIOUS SPECIMEN REJECTED DUE TOMISLABELED. 01/26/24 1558CLEAN CATCH Performed By: #### L 400.0001 ####[facility] [address] [place], [address] WBC 0-5 SEEN Normal 0-5 [facility] Comment on above: Order Comment: GRAEME W. PREVIOUS SPECIMEN REJECTED DUE TOMISLABELED. 01/26/24 1558CLEAN CATCH Performed By: #### L 400.0001 ####[facility] [address] [place], [address] BACTERIA 0 SEEN Normal None Seen [facility] Comment on above: Order Comment: REDRA W. PREVIOUS SPECIMEN REJECTED DUE TOMISLABELED. 01/26/24 1558CLEAN CATCH Performed By: #### L 400.0001 ####[facility] [address] [place], [address] EPI,SQUAMOUS 0 SEEN Normal 0-5 [facility] Comment on above: Order Comment: REDRA W. PREVIOUS SPECIMEN REJECTED DUE TOMISLABELED. 01/26/24 1558CLEAN CATCH Performed By: #### L 400.0001 ####[facility] [address] [place], [address] Mucus Ql (Urine sed) 0 SEEN Normal [facility] Comment on above: Order Comment: REDRA W. PREVIOUS SPECIMEN REJECTED DUE TOMISLABELED. 01/26/24 1558CLEAN CATCH Performed By: #### L 400.0001 ####[facility] [address] [place], [address] BACTERIA 0 SEEN Normal None Seen [facility] Comment on above: Order Comment: CLEAN CATCH Result Comment: This specimen has been REJECTED due to Laboratory criteria:MisLabelled.MihaelaBEMAINE has been notified of need of recollection.01/26/24 1557 Cordelia Clapper Performed By: #### L 400.0001 ####[facility] [address] [place], [address] EPI,SQUAMOUS 0 SEEN Normal 0-5 [facility] Comment on above: Order Comment: CLEAN CATCH Result Comment: This specimen has been REJECTED due to Laboratory criteria:MisLabelled.ZBEAM has been notified of need of recollection.01/26/24 1557 Cordelia Clapper Performed By: #### L 400.0001 ####[facility] [address] [place], [address] Mucus Ql (Urine sed) 0 SEEN Normal [facility] Comment on above: Order Comment: CLEAN CATCH Result Comment: This specimen has been REJECTED due to Laboratory criteria:MisLabelled.ZBEAM has been notified of need of recollection.01/26/24 1557 Cordelia Clapper Performed By: #### L 400.0001 ####[facility] [address] [place], [address] RBC 0 SEEN Normal 0-5 [facility] Comment on above: Order Comment: CLEAN CATCH Result Comment: This specimen has been REJECTED due to Laboratory criteria:MisLabelled.ZBEAM has been notified of need of recollection.01/26/24 1557 Cordelia Clapper Performed By: #### L 400.0001 ####[facility] [address] [place], [address] WBC 0 SEEN Normal 0-5 [facility] Comment on above: Order Comment: CLEAN CATCH Result Comment: This specimen has been REJECTED due to Laboratory criteria:MisLabelled.ZBEAM has been notified of need of recollection.01/26/24 1557 Cordelia Clapper Performed By: #### L 400.0001 ####[facility] [address] [place], [address] BILIRUBIN URINE Normal Negative [facility] Comment on above: Order Comment: CLEAN CATCH Result Comment: This specimen has been REJECTED due to Laboratory criteria:MisLabelled.MihaelaBEAM has been notified of need of recollection.01/26/24 1557 Cordelia Clapper Performed By: #### L 400.0001 ####[facility] [address] [place], [address] Clarity (U) Normal Clear [facility] Comment on above: Order Comment: CLEAN CATCH Result Comment: This specimen has been REJECTED due to Laboratory criteria:MisLabelled.MihaelaBEAM has been notified of need of recollection.01/26/24 1557 Cordelia Clapper Performed By: #### L 400.0001 ####[facility] [address] [place], [address] Color (U) Normal Yellow [facility] Comment on above: Order Comment: CLEAN CATCH Result Comment: This specimen has been REJECTED due to Laboratory criteria:MisLabelled.ZBEAM has been notified of need of recollection.01/26/24 1557 Cordelia Clapper Performed By: #### L 400.0001 ####[facility] [address] [place], [address] GLUCOSE, UR Normal Normal [facility] Comment on above: Order Comment: CLEAN CATCH Result Comment: This specimen has been REJECTED due to Laboratory criteria:MisLabelled.ZBEAM has been notified of need of recollection.01/26/24 1557 Cordelia Clapper Performed By: #### L 400.0001 ####[facility] [address] [place], [address] KETONE UR Normal Negative [facility] Comment on above: Order Comment: CLEAN CATCH Result Comment: This specimen has been REJECTED due to Laboratory criteria:MisLabelled.ZBEAM has been notified of need of recollection.01/26/24 1557 Cordelia Clapper Performed By: #### L 400.0001 ####[facility] [address] [place], [address] LEUK ESTERASE Normal Negative [facility] Comment on above: Order Comment: CLEAN CATCH Result Comment: This specimen has been REJECTED due to Laboratory criteria:MisLabelled.ZBEAM has been notified of need of recollection.01/26/24 1557 Cordelia Clapper Performed By: #### L 400.0001 ####[facility] [address] [place], [address] Nitrite Ql (U) Normal Negative [facility] Comment on above: Order Comment: CLEAN CATCH Result Comment: This specimen has been REJECTED due to Laboratory criteria:MisLabelled.ZBEAM has been notified of need of recollection.01/26/24 1557 Cordelia Clapper Performed By: #### L 400.0001 ####[facility] [address] [place], [address] OCCULT BLOOD-UR Normal Negative [facility] Comment on above: Order Comment: CLEAN CATCH Result Comment: This specimen has been REJECTED due to Laboratory criteria:MisLabelled.ZBEAM has been notified of need of recollection.01/26/24 1557 Cordelia Clapper Performed By: #### L 400.0001 ####[facility] [address] [place], [address] pH UR Normal 5.0 - 8.0 [facility] Comment on above: Order Comment: CLEAN CATCH Result Comment: This specimen has been REJECTED due to Laboratory criteria:MisLabelled.ZBEAM has been notified of need of recollection.01/26/24 1557 Cordelia Clapper Performed By: #### L 400.0001 ####[facility] [address] [place], [place], [address] PROT DIPSTX Normal Negative [facility] Comment on above: Order Comment: CLEAN CATCH Result Comment: This specimen has been REJECTED due to Laboratory criteria:MisLabelled.ZBEAM has been notified of need of recollection.01/26/24 1557 Cordelia Clapper Performed By: #### L 400.0001 ####[facility] [address] [place], [address] SP.GR. DIPSTX Normal 1.002-1.03 0 [facility] Comment on above: Order Comment: CLEAN CATCH Result Comment: This specimen has been REJECTED due to Laboratory criteria:MisLabelled.ZBEAM has been notified of need of recollection.01/26/24 1557 Cordelia Clapper Performed By: #### L 400.0001 ####[facility] [address] [place], [place], [address] UR Preservative Normal [facility] Comment on above: Order Comment: CLEAN CATCH Result Comment: This specimen has been REJECTED due to Laboratory criteria:MisLabelled.ZBEAM has been notified of need of recollection.01/26/24 1557 Cordelia Clapper Performed By: #### L 400.0001 ####[facility] [address] [place], [place], [address] UROBILI Normal Normal [facility] Comment on above: Order Comment: CLEAN CATCH Result Comment: This specimen has been REJECTED due to Laboratory criteria:MisLabelled.ALLA has been notified of need of recollection.01/26/24 1557 Cordelia Clapper Performed By: #### L 400.0001 ####[facility] [address] [place], [address] Urine blood detectionOrdered By: Patience Lane on 01-26-2024 RBC Ql (U) 25 /ul Negative [facility] Urine clarityOrdered By: Vanessa Lane on 01-26-2024 Clarity (U) Clear Clear [facility] Urine color determinationOrd ered By: Patience Lane on 01-26-2024 Color (U) Yellow Yellow [facility] Urine glucose detectionOrder ed By: Patience Lane on 01-26-2024 Glucose Ql (U) Normal mg/dl Normal [facility] Urine leukocyte esterase det ection by dipstickOrdered By: Patience Lane on 01-26-2024 Leukocyte esterase Test strip Ql (U) 25 /ul Negative [facility] Urine pHOrdered By: Patience Lane on 01-26-2024 pH (U) 7.0 [pH] 5.0 - 8.0 [facility] Urine sediment bacteria coun t by microscopy (number/high power field)Ordered By: Patience Lane on 01-26-2024 Bacteria LM.HPF (Urine sed) [#/Area] 0 /[HPF] None Seen [facility] Urine specific gravity measu rementOrdered By: Patience Lane on 01-26-2024 Specific gravity (U) [Rel density] 1.010 1.002-1.03 0 [facility] Urine urobilinogen measureme ntOrdered By: Patience Lane on 01-26-2024 Urobilinogen Ql (U) Normal mg/dl Normal [facility] Absolute lymphocyte countOrd ered By: Patience Lane on 01-16-2024 Lymphocytes Auto (Unsp spec) [#/Vol] 0.99 10*3/uL 0.83-4.51 [facility] Automated lymphocyte count a s percentage of total leukocytesOrdered By: Patience Lane on 01-16-2024 Lymphocytes/100 WBC Auto (Unsp spec) 7.2 % 19-41 [facility] Basic Metabolic Profile (BMP )on 01-16-2024 BUN/CRE 17.7 RATIO Normal 10-20 [facility] Comment on above: Performed By: #### L 100.0100, L500.2500, L500.3400, L501.2450 ####[facility] [address] [place], [address] CA,Total 9.4 mg/dL Normal 8.5-10.1 [facility] Comment on above: Performed By: #### L 100.0100, L500.2500, L500.3400, L501.2450 ####[facility] [address] [place], [address] Chloride [Moles/Vol] 110 mmol/L High 98-107 [facility] Comment on above: Performed By: #### L 100.0100, L500.2500, L500.3400, L501.2450 ####[facility] [address] [place], [address] CO2 [Moles/Vol] 22.0 mmol/L Normal 21.0-32.0 [facility] Comment on above: Performed By: #### L 100.0100, L500.2500, L500.3400, L501.2450 ####[facility] [address] [place], [address] Creatinine [Mass/Vol] 0.96 mg/dL Normal 0.70-1.30 [facility] Comment on above: Result Comment: The validity of the calculated GFR GFRAA in patients over70 years has not been determined. Clinical correlation isessential. Performed By: #### L 100.0100, L500.2500, L500.3400, L501.2450 ####[facility] [address] [place], [address] ECRCL 86.57 ml/min Normal [facility] Comment on above: Performed By: #### L 100.0100, L500.2500, L500.3400, L501.2450 ####[facility] [address] [place], [address] EST GFR - AA 101 mL/min Normal >60 [facility] Comment on above: Result Comment: Afri can [place] GFR Calc Performed By: #### L 100.0100, L500.2500, L500.3400, L501.2450 ####[facility] [address] [place], [address] GAP 8 Normal 5-15 [facility] Comment on above: Performed By: #### L 100.0100, L500.2500, L500.3400, L501.2450 ####[facility] [address] [place], [address] GFR/1.73 sq M.predicted among non-blacks MDRD (S/P/Bld) [Vol rate/Area] 84 mL/min/{1.73_m2} Normal >60 [facility] Comment on above: Result Comment: Non- GFR Calc Performed By: #### L 100.0100, L500.2500, L500.3400, L501.2450 ####[facility] [address] [place], [address] Glucose [Mass/Vol] 140 mg/dL High 74-106 [facility] Comment on above: Result Comment: Fast ing Glucose result greater than or equal to 126 mg/dLsuggests DIABETES MELLITUS per A.D.A. criteria. Performed By: #### L 100.0100, L500.2500, L500.3400, L501.2450 ####[facility] [address] [place], [address] Potassium [Moles/Vol] 3.4 mmol/L Low 3.5-5.1 [facility] Comment on above: Performed By: #### L 100.0100, L500.2500, L500.3400, L501.2450 ####[facility] [address] [place], [address] Sodium [Moles/Vol] 140 mmol/L Normal 136-145 [facility] Comment on above: Performed By: #### L 100.0100, L500.2500, L500.3400, L501.2450 ####[facility] [address] [place], [address] Urea nitrogen [Mass/Vol] 17 mg/dL Normal 7-18 [facility] Comment on above: Performed By: #### L 100.0100, L500.2500, L500.3400, L501.2450 ####[facility] [address] [place], [address] Basophil percentageOrdered B y: Patience Lane on 01-16-2024 Basophils/100 WBC (Bld) 0.4 % 0-1 [facility] Bilirubin [Mass/Vol] 0.30 mg/dL 0.20-1.00 [facility] Comment on above: For patients on eltr ombopag therapy, use of Dimension [place] TBIL is not recommended. Chloride [Moles/Vol] 110 mmol/L 98-107 [facility] Eosinophils/100 WBC (Bld) 0.1 % 0-5 [facility] Glucose [Mass/Vol] 140 mg/dL 74-106 [facility] Comment on above: Fasting Glucose resu lt greater than or equal to 126 mg/dL suggests DIABETES MELLITUS per A.D.A. criteria. Hemoglobin (Bld) [Mass/Vol] 13.6 g/dL 13.0-16.5 [facility] Monocytes/100 WBC (Bld) 2.4 % 0-10 [facility] Neutrophils (Bld) [#/Vol] 12.3 10*3/uL 2.0-7.7 [facility] Neutrophils/100 WBC (Bld) 89.0 % 47-70 [facility] Potassium [Moles/Vol] 3.4 mmol/L 3.5-5.1 [facility] Protein [Mass/Vol] 7.5 g/dL 6.4-8.2 [facility] Sodium [Moles/Vol] 140 mmol/L 136-145 [facility] WBC (Bld) [#/Vol] 13.8 10*3/uL 4.4-11.0 [facility] CBC W/Diff, Automatedon 12-24-2023 Absolute Lymph 0.99 X10 3/uL Normal 0.83-4.51 [facility] Comment on above: Performed By: #### L 100.0100, L500.2500, L500.3400, L501.2450 ####[facility] [address] [place], [address] Absolute Neut 12.3 X10 3/uL High 2.0-7.7 [facility] Comment on above: Performed By: #### L 100.0100, L500.2500, L500.3400, L501.2450 ####[facility] [address] [place], [address] Basophils/100 WBC (Bld) 0.4 % Normal 0-1 [facility] Comment on above: Performed By: #### L 100.0100, L500.2500, L500.3400, L501.2450 ####[facility] [address] [place], [address] Eosinophils/100 WBC (Bld) 0.1 % Normal 0-5 [facility] Comment on above: Performed By: #### L 100.0100, L500.2500, L500.3400, L501.2450 ####[facility] [address] [place], [address] Erythrocyte distribution width (RBC) [Ratio] 16.6 % High 11.6-14.6 [facility] Comment on above: Performed By: #### L 100.0100, L500.2500, L500.3400, L501.2450 ####[facility] [address] [place], [address] Hematocrit (Bld) [Volume fraction] 41.8 % Normal 40-54 [facility] Comment on above: Performed By: #### L 100.0100, L500.2500, L500.3400, L501.2450 ####[facility] [address] [place], [address] Hemoglobin (Bld) [Mass/Vol] 13.6 g/dL Normal 13.0-16.5 [facility] Comment on above: Performed By: #### L 100.0100, L500.2500, L500.3400, L501.2450 ####[facility] [address] [place], [address] IG% 0.900 Normal 0.0-0.9 [facility] Comment on above: Result Comment: IG% - Immature Granulocytes (promyelocytes, myelocytes andmetamyelocytes) > 1% indicates that a LEFT SHIFT is Present. Performed By: #### L 100.0100, L500.2500, L500.3400, L501.2450 ####[facility] [address] [place], [address] Lymphocytes/100 WBC (Bld) 7.2 % Low 19-41 [facility] Comment on above: Performed By: #### L 100.0100, L500.2500, L500.3400, L501.2450 ####[facility] [address] [place], [address] MCH (RBC) [Entitic mass] 27.9 pg Normal 27.0-32.0 [facility] Comment on above: Performed By: #### L 100.0100, L500.2500, L500.3400, L501.2450 ####[facility] [address] [place], [address] MCHC (RBC) [Mass/Vol] 32.5 g/dL Normal 32-36 [facility] Comment on above: Performed By: #### L 100.0100, L500.2500, L500.3400, L501.2450 ####[facility] [address] [place], [address] MCV (RBC) [Entitic vol] 85.8 fL Normal 80-94 [facility] Comment on above: Performed By: #### L 100.0100, L500.2500, L500.3400, L501.2450 ####[facility] [address] [place], [address] Monocytes/100 WBC (Bld) 2.4 % Normal 0-10 [facility] Comment on above: Performed By: #### L 100.0100, L500.2500, L500.3400, L501.2450 ####[facility] [address] [place], [address] Neutrophils/100 WBC (Bld) 89.0 % High 47-70 [facility] Comment on above: Performed By: #### L 100.0100, L500.2500, L500.3400, L501.2450 ####[facility] [address] [place], [address] Nucleated RBC (Bld) [#/Vol] 0 10*3/uL Normal 0-5 [facility] Comment on above: Performed By: #### L 100.0100, L500.2500, L500.3400, L501.2450 ####[facility] [address] [place], [address] Platelet mean volume (Bld) [Entitic vol] 10.1 fL Normal 6.2-12.0 [facility] Comment on above: Performed By: #### L 100.0100, L500.2500, L500.3400, L501.2450 ####[facility] [address] [place], [address] Platelets (Bld) [#/Vol] 408 10*3/uL Normal 150-450 [facility] Comment on above: Performed By: #### L 100.0100, L500.2500, L500.3400, L501.2450 ####[facility] [address] [place], [address] RBC (Bld) [#/Vol] 4.87 10*6/uL Normal 4.6-6.2 [facility] Comment on above: Performed By: #### L 100.0100, L500.2500, L500.3400, L501.2450 ####[facility] [address] [place], [address] RDW SD 52.3 fl High 35.1-43.9 [facility] Comment on above: Performed By: #### L 100.0100, L500.2500, L500.3400, L501.2450 ####[facility] [address] [place], [address] WBC (Bld) [#/Vol] 13.8 10*3/uL High 4.4-11.0 [facility] Comment on above: Performed By: #### L 100.0100, L500.2500, L500.3400, L501.2450 ####[facility] [address] [place], [address] Determination of erythrocyte mean corpuscular volume (MCV)Ordered By: Patience Lane on 01-16-2024 MCV (RBC) [Entitic vol] 85.8 fL 80-94 [facility] Direct bilirubinOrdered By: Patience Lane on 01-16-2024 Bilirubin.direct [Mass/Vol] 0.09 mg/dL 0.00-0.30 [facility] Emergency Department Summary on 01-16-2024 Emergency Department Summary Normal [facility] Erythrocyte distribution wid th ratioOrdered By: Patience Lane on 01-16-2024 Erythrocyte distribution width (RBC) [Ratio] 16.6 % 11.6-14.6 [facility] Erythrocyte distribution wid th standard deviationOrdered By: Patience Lane on 01-16-2024 Erythrocyte distribution width (RBC) [Entitic vol] 52.3 fL 35.1-43.9 [facility] Hematocrit Auto (Bld) [Volum e fraction]Ordered By: Patience Lane on 01-16-2024 Hematocrit (Bld) [Volume fraction] 41.8 % 40-54 [facility] Immature granulocytes/100 WB C Auto (Bld)Ordered By: Patience Lane on 01-16-2024 Immature granulocytes/100 WBC (Bld) 0.900 % 0.0-0.9 [facility] Comment on above: IG% - Immature Granu locytes (promyelocytes, myelocytes and metamyelocytes) > 1% indicates that a LEFT SHIFT is Present. Laboratory - Chemistry and C hemistry - challengeOrdered By: Patience Lane on 01-16-2024 ALP [Catalytic activity/Vol] 59 U/L 45-117 [facility] ALT [Catalytic activity/Vol] 16 U/L 16-61 [facility] CO2 [Moles/Vol] 22.0 mmol/L 21.0-32.0 [facility] Globulin (S) [Mass/Vol] 3.7 g/dL 2.2-4.2 [facility] Lipase [Catalytic activity/Vol] 46 U/L 13-75 [facility] Comment on above: Please note:LIPASE r evised reference range effective 23. New Lipase methodology. Expected to produce lower values than the previous assay method. NEW Reference Range: 13 - 75 U/L Urea nitrogen/Creatinine [Mass ratio] 17.7 mg/mg 10-20 [facility] Laboratory - Hematology and Cell countsOrdered By: Patience Lane on 01-16-2024 MCH (RBC) [Entitic mass] 27.9 pg 27.0-32.0 [facility] MCHC (RBC) [Mass/Vol] 32.5 g/dL 32-36 [facility] Nucleated RBC/100 WBC (Bld) [Ratio] 0 % 0-5 [facility] Platelet mean volume (Bld) [Entitic vol] 10.1 fL 6.2-12.0 [facility] Platelets (Bld) [#/Vol] 408 10*3/uL 150-450 [facility] Lipaseon 01-16-2024 Lipase [Catalytic activity/Vol] 46 U/L Normal 13-75 [facility] Comment on above: Result Comment: Edilberto conn note:LIPASE revised reference range effective 23.New Lipase methodology. Expected to produce lower valuesthan the previous assay method.NEW Reference Range: 13 - 75 U/L Performed By: #### L 100.0100, L500.2500, L500.3400, L501.2450 ####[facility] [address] [place], [address] Liver Profileon 01-16-2024 Albumin [Mass/Vol] 3.8 g/dL Normal 3.2-5.0 [facility] Comment on above: Performed By: #### L 100.0100, L500.2500, L500.3400, L501.2450 ####[facility] [address] [place], [address] ALK P 59 U/L Normal 45-117 [facility] Comment on above: Performed By: #### L 100.0100, L500.2500, L500.3400, L501.2450 ####[facility] [address] [place], [address] ALT [Catalytic activity/Vol] 16 U/L Normal 16-61 [facility] Comment on above: Performed By: #### L 100.0100, L500.2500, L500.3400, L501.2450 ####[facility] [address] [place], [address] AST [Catalytic activity/Vol] 18 U/L Normal 15-37 [facility] Comment on above: Performed By: #### L 100.0100, L500.2500, L500.3400, L501.2450 ####[facility] [address] [place], [address] Bilirubin [Mass/Vol] 0.30 mg/dL Normal 0.20-1.00 [facility] Comment on above: Result Comment: For patients on eltrombopag therapy, use of Dimension [place] TBIL is not recommended. Performed By: #### L 100.0100, L500.2500, L500.3400, L501.2450 ####[facility] [address] [place], [address] Bilirubin.direct [Mass/Vol] 0.09 mg/dL Normal 0.00-0.30 [facility] Comment on above: Performed By: #### L 100.0100, L500.2500, L500.3400, L501.2450 ####[facility] [address] [place], [address] Globulin (S) [Mass/Vol] 3.7 g/dL Normal 2.2-4.2 [facility] Comment on above: Performed By: #### L 100.0100, L500.2500, L500.3400, L501.2450 ####[facility] [address] [place], [address] T PROT 7.5 g/dL Normal 6.4-8.2 [facility] Comment on above: Performed By: #### L 100.0100, L500.2500, L500.3400, L501.2450 ####[facility] [address] [place], [address] No Panel InformationOrdered By: Patience Lane on 01-16-2024 Estimated Creatinine Clearance Calc 86.57 ml/min [facility] Estimated GFR (MDRD) Amer 101 mL/min >60 [facility] Comment on above: GFR Calc Estimated GFR (MDRD) Non-Af Amer 84 mL/min >60 [facility] Comment on above: Non- GFR Calc RBC Auto (Bld) [#/Vol]Ordere d By: Patience Lane on 01-16-2024 RBC (Bld) [#/Vol] 4.87 10*6/uL 4.6-6.2 [facility] Serum or plasma calcium madelyn urement (mass/volume)Ordered By: Patience Lane on 01-16-2024 Calcium [Mass/Vol] 9.4 mg/dL 8.5-10.1 [facility] Serum or plasma creatinine m easurement (mass/volume)Ordered By: Patience Lane on 01-16-2024 Creatinine [Mass/Vol] 0.96 mg/dL 0.70-1.30 [facility] Comment on above: The validity of the calculated GFR & GFRAA in patients over 70 years has not been determined. Clinical correlation is essential. Serum or plasma urea nitroge n measurement (mass/volume)Ordered By: Patience Lane on 01-16-2024 Urea nitrogen [Mass/Vol] 17 mg/dL 7-18 [facility] Thin prep Papanicolaou smear with manual screeningOrdered By: Patience Lane on 01-16-2024 Thin prep Papanicolaou smear with manual screening 3.8 g/dL 3.2-5.0 [facility] Thin prep Papanicolaou smear with manual screening 18 U/L 15-37 [facility] Thin prep Papanicolaou smear with manual screening 8 5-15 [facility] Intrinsic Factor Abon 2023 INTRINS FACT AB 1.1 AU/mL Normal 0.0-1.1 [facility] Comment on above: Result Comment: Perf ormed at: BN - [facility] [address] [place], [place] [id number] Director: Fabian Qureshi MD, Phone: [phone] Performed By: #### L 3410.0900 ####[facility] [address] [place], [address] No Panel InformationOrdered By: Fredi Angeles on 12-25-2023 Intrinsic Factor Antibody 1.1 AU/mL 0.0-1.1 [facility] Comment on above: Performed at: - [address] [id number] Director: Fabian Qureshi MD, Phone: [phone] Office Visit Reporton 2023 Office Visit Report Normal [facility] Basophil percentageOrdered B y: Fredi Angeles on 12-17-2023 Bilirubin [Mass/Vol] 0.30 mg/dL 0.20-1.00 [facility] Comment on above: For patients on eltr ombopag therapy, use of Dimension [place] TBIL is not recommended. Chloride [Moles/Vol] 107 mmol/L 98-107 [facility] Glucose [Mass/Vol] 80 mg/dL 74-106 [facility] Hemoglobin (Bld) [Mass/Vol] 12.3 g/dL 13.0-16.5 [facility] Potassium [Moles/Vol] 3.9 mmol/L 3.5-5.1 [facility] Protein [Mass/Vol] 6.9 g/dL 6.4-8.2 [facility] Sodium [Moles/Vol] 137 mmol/L 136-145 [facility] WBC (Bld) [#/Vol] 13.0 10*3/uL 4.4-11.0 [facility] Determination of erythrocyte mean corpuscular volume (MCV)Ordered By: Fredi Angeles on 12-17-2023 MCV (RBC) [Entitic vol] 88.6 fL 80-94 [facility] Erythrocyte distribution wid th ratioOrdered By: Fredi Angeles on 12-17-2023 Erythrocyte distribution width (RBC) [Ratio] 18.2 % 11.6-14.6 [facility] Erythrocyte distribution wid th standard deviationOrdered By: Fredi Angeles on 12-17-2023 Erythrocyte distribution width (RBC) [Entitic vol] 59.0 fL 35.1-43.9 [facility] Hematocrit Auto (Bld) [Volum e fraction]Ordered By: Fredi Angeles on 12-17-2023 Hematocrit (Bld) [Volume fraction] 38.9 % 40-54 [facility] Laboratory - Chemistry and C hemistry - challengeOrdered By: Fredi Angeles on 12-17-2023 Albumin/Globulin [Mass ratio] 1.0 {ratio} 0.9-2.4 [facility] ALP [Catalytic activity/Vol] 46 U/L 45-117 [facility] ALT [Catalytic activity/Vol] 16 U/L 16-61 [facility] CO2 [Moles/Vol] 22.0 mmol/L 21.0-32.0 [facility] Cobalamin (Vitamin B12) [Mass/Vol] 159 pg/mL 211-911 [facility] Globulin (S) [Mass/Vol] 3.4 g/dL 2.2-4.2 [facility] Urea nitrogen/Creatinine [Mass ratio] 11.6 mg/mg 10-20 [facility] Laboratory - Hematology and Cell countsOrdered By: Fredi Angeles on 12-17-2023 MCH (RBC) [Entitic mass] 28.0 pg 27.0-32.0 [facility] MCHC (RBC) [Mass/Vol] 31.6 g/dL 32-36 [facility] Platelet mean volume (Bld) [Entitic vol] 9.3 fL 6.2-12.0 [facility] Platelets (Bld) [#/Vol] 337 10*3/uL 150-450 [facility] No Panel InformationOrdered By: Fredi Angeles on 12-17-2023 Estimated GFR (MDRD) Amer 103 mL/min >60 [facility] Comment on above: GFR Calc Estimated GFR (MDRD) Non-Af Amer 85 mL/min >60 [facility] Comment on above: Non- GFR Calc Folate 11.00 ng/mL 3.1-55.4 [facility] RBC Auto (Bld) [#/Vol]Ordere d By: Fredi Angeles on 12-17-2023 RBC (Bld) [#/Vol] 4.39 10*6/uL 4.6-6.2 [facility] Serum or plasma calcium madelyn urement (mass/volume)Ordered By: Fredi Angeles on 12-17-2023 Calcium [Mass/Vol] 8.8 mg/dL 8.5-10.1 [facility] Serum or plasma creatinine m easurement (mass/volume)Ordered By: Fredi Angeles on 12-17-2023 Creatinine [Mass/Vol] 0.94 mg/dL 0.70-1.30 [facility] Comment on above: The validity of the calculated GFR & GFRAA in patients over 70 years has not been determined. Clinical correlation is essential. Serum or plasma thiamine russ surement (mass/volume)Ordered By: Fredi Angeles on 12-17-2023 Thiamine [Mass/Vol] 142.4 nmol/L 66.5-200.0 [facility] Comment on above: Performed at: [address] [id number] Director: Fabian Qureshi MD, Phone: [phone] Serum or plasma thyroid stim ulating hormone (TSH) measurement (units/volume)Ordered By: Fredi Angeles on 12-17-2023 TSH Qn 0.61 uIU/mL 0.358-3.74 [facility] Serum or plasma urea nitroge n measurement (mass/volume)Ordered By: Fredi Angeles on 12-17-2023 Urea nitrogen [Mass/Vol] 11 mg/dL 7-18 [facility] Thin prep Papanicolaou smear with manual screeningOrdered By: Fredi Angeles on 12-17-2023 Thin prep Papanicolaou smear with manual screening 3.5 g/dL 3.2-5.0 [facility] Thin prep Papanicolaou smear with manual screening 16 U/L 15-37 [facility] Thin prep Papanicolaou smear with manual screening 8 5-15 [facility] ALBUMIN, RANDOM URINE W/CREA TININEon 11-08-2023 ALBUMIN, URINE 0.4 mg/dL Normal See Note: [facility] Comment on above: Result Comment: Refe rence Range: Reference Range Not established Performed By: #### 6 517, [address], [address], 7059 #### [facility] [address], [address] [place] [address] Home Advisor: Malvin Saez MD ALBUMIN/CREATININE RATIO, RANDOM URINE 4 mcg/mg creat Normal <30 [facility] Comment on above: Result Comment: The ADA defines abnormalities in albumin excretion as follows: Albuminuria Category Result (mcg/mg creatinine) Normal to Mildly increased <30 Moderately increased 30-299 Severely increased > OR = 300 The ADA recommends that at least two of three specimens collected within a 3-6 month period be abnormal before considering a patient to be within a diagnostic category. Performed By: #### 6 517, 79178, 08549, 6399 #### [facility] [place] [address] Home Advisor: Malvin Saez MD Creatinine (U) [Mass/Vol] 90 mg/dL Normal 20-320 [facility] Comment on above: Performed By: #### 6 517, 98108, 58282, 6399 #### [facility] [place] [address] Home Advisor: Malvin Saez MD CBC (INCLUDES DIFF/PLT)on Basophils (Bld) [#/Vol] 0.028 10*3/uL Normal 0-200 [facility] Comment on above: Performed By: #### 6 517, 39173, 50233, 6399 #### [facility] [place] [address] Home Advisor: Malvin Saez MD Basophils/100 WBC (Bld) 0.3 % Normal [facility] Comment on above: Performed By: #### 6 517, 15439, 76940, 6399 #### [facility] [place] [address] Home Advisor: Malvin Saez MD Eosinophils (Bld) [#/Vol] 0.167 10*3/uL Normal 15-500 [facility] Comment on above: Performed By: #### 6 517, 28700, 12344, 6399 #### [facility] [place] [address] Home Advisor: Malvin Saez MD Eosinophils/100 WBC (Bld) 1.8 % Normal [facility] Comment on above: Performed By: #### 6 517, 03282, 37094, 6399 #### [facility] [place] [address] Home Advisor: Malvin Saez MD Erythrocyte distribution width (RBC) [Ratio] 14.7 % Normal 11.0-15.0 [facility] Comment on above: Performed By: #### 6 517, 65838, 62397, 6399 #### [facility] [place] [address] Home Advisor: Malvin Saez MD Hematocrit (Bld) [Volume fraction] 38.1 % Low 38.5-50.0 [facility] Comment on above: Performed By: #### 6 517, 33740, 60613, 6399 #### [facility] [place] [address] Home Advisor: Malvin Saez MD Hemoglobin (Bld) [Mass/Vol] 12.4 g/dL Low 13.2-17.1 [facility] Comment on above: Performed By: #### 6 517, 07223, 89973, 6399 #### [facility] [place] [address] Home Advisor: Malvin Saez MD Lymphocytes (Bld) [#/Vol] 1.469 10*3/uL Normal 850-3900 [facility] Comment on above: Performed By: #### 6 517, 55789, 49780, 6399 #### [facility] [place] [address] Home Advisor: Malvin Saez MD Lymphocytes/100 WBC (Bld) 15.8 % Normal [facility] Comment on above: Performed By: #### 6 517, 19243, 28877, 6399 #### [facility] [place] [address] Home Advisor: Malvin Saez MD MCH (RBC) [Entitic mass] 27.2 pg Normal 27.0-33.0 [facility] Comment on above: Performed By: #### 6 517, 19307, 72061, 6399 #### [facility] [place] [address] Home Advisor: Malvin Saez MD MCHC (RBC) [Mass/Vol] 32.5 g/dL Normal 32.0-36.[address] [facility] Comment on above: Performed By: #### 6 517, 62212, 71204, 6399 #### [facility] [place] [address] Home Advisor: Malvin Saez MD MCV (RBC) [Entitic vol] 83.6 fL Normal 80.0-100.0 [facility] Comment on above: Performed By: #### 6 517, 70097, 00683, 6399 #### [facility] [place] [address] Home Advisor: Malvin Saez MD Monocytes (Bld) [#/Vol] 0.763 10*3/uL Normal 200-950 [facility] Comment on above: Performed By: #### 6 517, 04307, 73079, 6399 #### [facility] [place] [address] Home Advisor: Malvin Saez MD Monocytes/100 WBC (Bld) 8.2 % Normal [facility] Comment on above: Performed By: #### 6 517, 67651, 85801, 6399 #### [facility] [place] [address] Home Advisor: Malvin Saez MD Neutrophils (Bld) [#/Vol] 6.873 10*3/uL Normal 2868-8277 [facility] Comment on above: Performed By: #### 6 517, 49704, 73214, 6399 #### [facility] [place] [address] Home Advisor: Malvin Saez MD Neutrophils/100 WBC (Bld) 73.9 % Normal [facility] Comment on above: Performed By: #### 6 517, 76149, 78293, 6399 #### [facility] [place] [address] Home Advisor: Malvin Saez MD Platelet mean volume (Bld) [Entitic vol] 10.3 fL Normal 7.5-12.5 [facility] Comment on above: Performed By: #### 6 517, 21851, 33870, 6399 #### [facility] of [address], [address] [place] [address] Home Advisor: Malvin Saez MD Platelets (Bld) [#/Vol] 368 10*3/uL Normal 140-400 [facility] Comment on above: Performed By: #### 6 517, 31924, 94495, 6399 #### [facility] [place] [address] Home Advisor: Malvin Saez MD RBC (Bld) [#/Vol] 4.56 10*6/uL Normal 4.20-5.80 [facility] Comment on above: Performed By: #### 6 517, 57469, 04814, 6399 #### [facility] [place] [address] Home Advisor: Malvin Saez MD WBC (Bld) [#/Vol] 9.3 10*3/uL Normal 3.8-10.8 [facility] Comment on above: Performed By: #### 6 517, 46079, 72692, 6399 #### [facility] [place] [address] Home Advisor: Malvin Saez MD COMPREHENSIVE METABOLIC PANE [facility] 11-08-2023 Albumin [Mass/Vol] 4.5 g/dL Normal 3.6-5.1 [facility] Comment on above: Performed By: #### 6 517, 60838, 60173, 6399 #### [facility] [place] [address] Home Advisor: Malvin Saez MD Albumin/Globulin [Mass ratio] 1.8 {ratio} Normal 1.0-2.5 [facility] Comment on above: Performed By: #### 6 517, 97243, 70230, 6399 #### [facility] [place] [address] Home Advisor: Malvin Saez MD ALP [Catalytic activity/Vol] 48 U/L Normal 35-144 [facility] Comment on above: Performed By: #### 6 517, 69687, 60780, 6399 #### [facility] [address], [address] [place] [address] Home Advisor: Malvin Saez MD ALT [Catalytic activity/Vol] 11 U/L Normal 9-46 [facility] Comment on above: Performed By: #### 6 517, 62306, 46485, 6399 #### [facility] [place] [address] Home Advisor: Malvin Saez MD AST [Catalytic activity/Vol] 19 U/L Normal 10-35 [facility] Comment on above: Performed By: #### 6 517, 31274, 68810, 6399 #### [facility] [place] [address] Home Advisor: Malvin Saez MD Bilirubin [Mass/Vol] 0.5 mg/dL Normal 0.2-1.2 [facility] Comment on above: Performed By: #### 6 517, 88778, 44804, 6399 #### [facility] [place] [address] Home Advisor: Malvin Saez MD BUN/CREATININE RATIO SEE NOTE: Normal 6-22 [facility] Comment on above: Result Comment: Not Reported: BUN and Creatinine are within reference range. Performed By: #### 6 517, 62028, 61780, 6399 #### [facility] [place] [address] Home Advisor: Malvin Saez MD Calcium [Mass/Vol] 9.8 mg/dL Normal 8.6-10.3 [facility] Comment on above: Performed By: #### 6 517, 63703, 68750, 6399 #### [facility] [address], [address] [place] [address] Home Advisor: Malvin Saez MD Chloride [Moles/Vol] 104 mmol/L Normal 98-110 [facility] Comment on above: Performed By: #### 6 517, 99180, 46349, 6399 #### [facility] [address], [address] [place] [address] Home Advisor: Malvin Saez MD CO2 [Moles/Vol] 19 mmol/L Low 20-32 [facility] Comment on above: Performed By: #### 6 517, 14397, 37651, 6399 #### [facility] [address], [address] [place] [address] Home Advisor: Malvin Saez MD Creatinine [Mass/Vol] 1.06 mg/dL Normal 0.70-1.[address] [facility] Comment on above: Performed By: #### 6 517, 93118, 02099, 6399 #### [facility] [place] [address] Home Advisor: Malvin Saez MD GFR/1.73 sq M.predicted among non-blacks MDRD (S/P/Bld) [Vol rate/Area] 78 mL/min/{1.73_m2} Normal > OR = 60 [facility] Comment on above: Performed By: #### 6 517, 81803, 13624, 6399 #### [facility] [address], [address] [place] [address] Home Advisor: Malvin Saez MD Globulin (S) [Mass/Vol] 2.5 g/dL Normal 1.9-3.7 [facility] Comment on above: Performed By: #### 6 517, 43196, 80093, 6399 #### [facility] [address], [address] [place] [address] Home Advisor: Malvin Saez MD Glucose [Mass/Vol] 90 mg/dL Normal 65-99 [facility] Comment on above: Result Comment: Fasting reference interval Performed By: #### 6 517, 45984, 26877, 6399 #### [facility] [place] [address] Home Advisor: Malvin Saez MD Potassium [Moles/Vol] 4.4 mmol/L Normal 3.5-5.[address] [facility] Comment on above: Performed By: #### 6 517, 43606, 08663, 6399 #### [facility] [place] [address] Home Advisor: Malvin Saez MD Protein [Mass/Vol] 7.0 g/dL Normal 6.1-8.1 [facility] Comment on above: Performed By: #### 6 517, 85653, 25356, 6399 #### [facility] [place] [address] Home Advisor: Malvin Saez MD Sodium [Moles/Vol] 134 mmol/L Low 135-146 [facility] Comment on above: Performed By: #### 6 517, 65051, 43478, 6399 #### [facility] [place] [address] Home Advisor: Malvin Saez MD Urea nitrogen [Mass/Vol] 19 mg/dL Normal 7-25 [facility] Comment on above: Performed By: #### 6 517, 07451, 07630, 6399 #### [facility] [place] [address] Home Advisor: Malvin Saez MD LIPID PANEL WITH REFLEX TO D IRECT LDLon 11-08-2023 Cholesterol [Mass/Vol] 154 mg/dL Normal <200 [facility] Comment on above: Order Comment: FASTI NG:YES FASTING: YES Performed By: #### 6 517, 55046, 34800, 6399 #### [facility] [place] [address] Home Advisor: Malvin Saez MD Cholesterol in HDL [Mass/Vol] 44 mg/dL Normal > OR = 40 [facility] Comment on above: Order Comment: FASTI NG:YES FASTING: YES Performed By: #### 6 517, 99486, 13260, 6399 #### [facility] [address], [address] [place] [address] Home Advisor: Malvin Saez MD Cholesterol in LDL [Mass/Vol] 86 mg/dL Normal [facility] Comment on above: Order Comment: FASTI NG:YES FASTING: YES Result Comment: Refe rence range: <100 Desirable range <100 mg/dL for primary prevention; <70 mg/dL for patients with CHD or diabetic patients with > or = 2 CHD risk factors. LDL-C is now calculated using the Fozia calculation, which is a validated novel method providing better accuracy than the Friedewald equation in the estimation of LDL-C. Rojas GALVAN et al. SIGRID. 2013;310(19): 9422-7627 (http://education.Salsify.Toushay - It's what's in store/faq/VKR127) Performed By: #### 6 517, 43884, 48776, 6399 #### [facility] [address], [address] [place] [address] Home Advisor: Malvin Saez MD Cholesterol.total/Choles terol in HDL [Mass ratio] 3.5 {ratio} Normal <5.0 [facility] Comment on above: Order Comment: FASTI NG:YES FASTING: YES Performed By: #### 6 517, 70041, 39464, 6399 #### [facility] [address], [address] [place] [address] Home Advisor: Malvin Saez MD NON HDL CHOLESTEROL 110 mg/dL (calc) Normal <130 [facility] Comment on above: Order Comment: FASTI NG:YES FASTING: YES Result Comment: For patients with diabetes plus 1 major ASCVD risk factor, treating to a non-HDL-C goal of <100 mg/dL (LDL-C of <70 mg/dL) is considered a therapeutic option. Performed By: #### 6 517, 77439, 03507, 6399 #### [facility] [address], [address] [place] [address] Home Advisor: Malvin Saez MD Triglyceride [Mass/Vol] 139 mg/dL Normal <150 [facility] Comment on above: Order Comment: FASTI NG:YES FASTING: YES Performed By: #### 6 517, 88487, 77551, 6399 #### [facility] [address], [address] [place] [address] Home Advisor: Malvin Saez MD PSA, TOTALon 11-08-2023 PSA, TOTAL 0.73 ng/mL Normal < OR = 4.00 [facility] Comment on above: Result Comment: The total PSA value from this assay system is standardized against the WHO standard. The test result will be approximately 20% lower when compared to the equimolar-standardized total PSA (Concepcion Dwayne). Comparison of serial PSA results should be interpreted with this fact in mind. This test was performed using the Siemens chemiluminescent method. Values obtained from different assay methods cannot be used interchangeably. PSA levels, regardless of value, should not be interpreted as absolute evidence of the presence or absence of disease. Performed By: #### 6 517, 73861, 42309, 6399 #### [facility] [address], [address] [place] [address] Home Advisor: Malvin Saez MD Basophil percentageOrdered B y: Fredi Angeles on 10-19-2023 Creatinine [Mass/Vol] 1.4 mg/dL 0.70-1.30 [facility] Laboratory - Chemistry and C hemistry - challengeOrdered By: Fredi Angeles on 10-19-2023 GFR/1.73 sq M.predicted among non-blacks MDRD (S/P/Bld) [Vol rate/Area] 55.0000 mL/min/{1.73_m2} >60 [facility] Absolute lymphocyte countOrd ered By: Trenton Ruiz on 09-06-2023 Lymphocytes Auto (Unsp spec) [#/Vol] 0.80 10*3/uL 0.83-4.51 [facility] Basophil percentageOrdered B y: Trenton Ruiz on 09-06-2023 Lactate [Moles/Vol] 2.1 mmol/L 0.4-2.0 [facility] Comment on above: Critical Result(s) C alled at: 17:23:44 09/06/2023 by: Tiana Singer. Results read back by same. Basophils/100 WBC (Bld) 0.3 % 0-1 [facility] Bilirubin [Mass/Vol] 0.40 mg/dL 0.20-1.00 [facility] Comment on above: For patients on eltr ombopag therapy, use of Dimension [place] TBIL is not recommended. Chloride [Moles/Vol] 110 mmol/L 98-107 [facility] Eosinophils/100 WBC (Bld) 0.0 % 0-5 [facility] Glucose [Mass/Vol] 164 mg/dL 74-106 [facility] Comment on above: Fasting Glucose resu lt greater than or equal to 126 mg/dL suggests DIABETES MELLITUS per A.D.A. criteria. Neutrophils (Bld) [#/Vol] 12.7 10*3/uL 2.0-7.7 [facility] Neutrophils/100 WBC (Bld) 90.5 % 47-70 [facility] Potassium [Moles/Vol] 3.3 mmol/L 3.5-5.1 [facility] Protein [Mass/Vol] 8.1 g/dL 6.4-8.2 [facility] Sodium [Moles/Vol] 141 mmol/L 136-145 [facility] WBC (Bld) [#/Vol] 14.0 10*3/uL 4.4-11.0 [facility] Basophil percentageOrdered B y: Malcom Cordova on 09-06-2023 Basophil percentage 0-5 SEEN /hpf 0-5 [facility] Bilirubin Test strip Ql (U)O rdered By: Malcom Cordova on 09-06-2023 Bilirubin Ql (U) Negative Negative [facility] Blood erythrocytes count (nu mber/volume)Ordered By: Trenton Ruiz on 09-06-2023 RBC (Bld) [#/Vol] 4.55 10*6/uL 4.6-6.2 [facility] Blood hemoglobin measurement (mass/volume)Ordered By: Trenton Ruiz on 09-06-2023 Hemoglobin (Bld) [Mass/Vol] 12.8 g/dL 13.0-16.5 [facility] Blood lymphocytes/100 leukoc ytesOrdered By: Trenton Ruiz on 09-06-2023 Lymphocytes/100 WBC (Bld) 5.7 % 19-41 [facility] Blood monocytes/100 leukocyt esOrdered By: Trenton Ruiz on 09-06-2023 Monocytes/100 WBC (Bld) 2.9 % 0-10 [facility] Blood platelet mean volumeOr dered By: Trenton Ruiz on 09-06-2023 Platelet mean volume (Bld) [Entitic vol] 10.2 fL 6.2-12.0 [facility] Determination of erythrocyte mean corpuscular volume (MCV)Ordered By: Trenton Ruiz on 09-06-2023 MCV (RBC) [Entitic vol] 88.4 fL 80-94 [facility] Hematocrit Auto (Bld) [Volum e fraction]Ordered By: Trenton Ruiz on 09-06-2023 Hematocrit (Bld) [Volume fraction] 40.2 % 40-54 [facility] Influenza virus A and B and SARS-CoV-2 (COVID-19) Ag panel - Upper respiratory specimOrdered By: Malcom Cordova on 09-06-2023 SARS-CoV-2 (COVID-19) RNA VILMA+probe Ql (Resp) [facility] Ketones Test strip Ql (U)Ord ered By: Malcom Cordova on 09-06-2023 Ketones Ql (U) Negative Negative [facility] Laboratory - Chemistry and C hemistry - challengeOrdered By: Trenton Ruiz on 09-06-2023 ALP [Catalytic activity/Vol] 63 U/L 45-117 [facility] ALT [Catalytic activity/Vol] 23 U/L 16-61 [facility] CO2 [Moles/Vol] 19.0 mmol/L 21.0-32.0 [facility] Globulin (S) [Mass/Vol] 3.9 g/dL 2.2-4.2 [facility] Lipase [Catalytic activity/Vol] 30 U/L 13-75 [facility] Comment on above: Please note:LIPASE r evised reference range effective 23. New Lipase methodology. Expected to produce lower values than the previous assay method. NEW Reference Range: 13 - 75 U/L Urea nitrogen/Creatinine [Mass ratio] 9.1 mg/mg 10-20 [facility] Laboratory - Hematology and Cell countsOrdered By: Trenton Ruiz on 09-06-2023 Erythrocyte distribution width (RBC) [Entitic vol] 44.7 fL 35.1-43.9 [facility] Erythrocyte distribution width (RBC) [Ratio] 13.9 % 11.6-14.6 [facility] Immature granulocytes/100 WBC (Bld) 0.600 % 0.0-0.9 [facility] Comment on above: IG% - Immature Granu locytes (promyelocytes, myelocytes and metamyelocytes) > 1% indicates that a LEFT SHIFT is Present. MCH (RBC) [Entitic mass] 28.1 pg 27.0-32.0 [facility] Nucleated RBC/100 WBC (Bld) [Ratio] 0 % 0-5 [facility] MCHC Auto (RBC) [Mass/Vol]Or dered By: Trenton Ruiz on 09-06-2023 MCHC (RBC) [Mass/Vol] 31.8 g/dL 32-36 [facility] Mucus LM Ql (Urine sed)Order ed By: Malcom Cordova on 09-06-2023 Mucus Ql (Urine sed) 0 SEEN /hpf [facility] Nitrite Test strip Ql (U)Ord ered By: Malcom Cordova on 09-06-2023 Nitrite Ql (U) Negative Negative [facility] No Panel InformationOrdered By: Trenton Ruiz on 09-06-2023 Estimated Creatinine Clearance Calc 62.84 ml/min [facility] Estimated GFR (MDRD) Amer 77 mL/min >60 [facility] Comment on above: GFR Calc Estimated GFR (MDRD) Non-Af Amer 64 mL/min >60 [facility] Comment on above: Non- GFR Calc Platelets bldOrdered By: Myla Ruiz on 09-06-2023 Platelets (Bld) [#/Vol] 407 10*3/uL 150-450 [facility] Protein Test strip Ql (U)Ord ered By: Malcom Cordova on 09-06-2023 Protein Ql (U) 15 mg/dl Negative [facility] Serum or plasma albumin madelyn urement (mass/volume)Ordered By: Trenton Ruiz on 09-06-2023 Albumin [Mass/Vol] 4.2 g/dL 3.2-5.0 [facility] Serum or plasma albumin/glob ulin mass ratioOrdered By: [facility] on 09-06-2023 Albumin/Globulin [Mass ratio] 1.1 {ratio} 0.9-2.4 [facility] Serum or plasma calcium madelyn urement (mass/volume)Ordered By: [facility] on 09-06-2023 Calcium [Mass/Vol] 9.9 mg/dL 8.5-10.1 [facility] Serum or plasma creatinine m easurement (mass/volume)Ordered By: [facility] on 09-06-2023 Creatinine [Mass/Vol] 1.21 mg/dL 0.70-1.30 [facility] Comment on above: The validity of the calculated GFR & GFRAA in patients over 70 years has not been determined. Clinical correlation is essential. Serum or plasma urea nitroge n measurement (mass/volume)Ordered By: Trenton Ruiz on 09-06-2023 Urea nitrogen [Mass/Vol] 11 mg/dL 7-18 [facility] Squamous epithelial cells de tection in urine sediment by light microscopyOrdered By: Malcom Cordova on 09-06-2023 Epithelial cells.squamous LM Ql (Urine sed) 0-5 SEEN /hpf 0-5 [facility] Thin prep Papanicolaou smear with manual screeningOrdered By: Trenton Ruiz on 09-06-2023 Thin prep Papanicolaou smear with manual screening 21 U/L 15-37 [facility] Thin prep Papanicolaou smear with manual screening 12 5-15 [facility] Upper respiratory specimen i nfluenza A virus, influenza B virus, and severe acute respiratory syndromOrdered By: Malcom Cordova on 09-06-2023 Upper respiratory specimen influenza A virus, influenza B virus, and severe acute respiratory syndrom [facility] Urine blood detectionOrdered By: Malcom Cordova on 09-06-2023 RBC Ql (U) 50 /ul Negative [facility] RBC Ql (U) 0-5 SEEN /hpf 0-5 [facility] Urine clarityOrdered By: Ra Cordova on 09-06-2023 Clarity (U) Clear Clear [facility] Urine color determinationOrd ered By: Malcom Cordova on 09-06-2023 Color (U) Yellow Yellow [facility] Urine glucose detectionOrder ed By: Malcom Cordova on 09-06-2023 Glucose Ql (U) Normal mg/dl Normal [facility] Urine leukocyte esterase det ection by dipstickOrdered By: Malcom Cordova on 09-06-2023 Leukocyte esterase Test strip Ql (U) Negative Negative [facility] Urine pHOrdered By: Malcom bone on 09-06-2023 pH (U) 7.0 [pH] 5.0 - 8.0 [facility] Urine sediment bacteria coun t by microscopy (number/high power field)Ordered By: Malcom Cordova on 09-06-2023 Bacteria LM.HPF (Urine sed) [#/Area] 0 /[HPF] None Seen [facility] Urine specific gravity measu rementOrdered By: Malcom Cordova on 09-06-2023 Specific gravity (U) [Rel density] 1.010 1.002-1.03 0 [facility] Urobilinogen Auto test strip Ql (U)Ordered By: Malcom Cordova on 09-06-2023 Urobilinogen Ql (U) Normal mg/dl Normal [facility] Final Surgical Pathology Rep [facility] 07-06-2023 Final Surgical Pathology Report . Pathology Reports Accession: Collected Date/Time: Received Date/Time: Pathologist: [id number] 07/04/2023 09:02 EDT 07/05/2023 09:42 EDT TRUONG ROMO MD Final Surgical Pathology Report DIAGNOSIS: A. STOMACH, BIOPSY: - SLIGHT CHRONIC INFLAMMATION. NO ACTIVE GASTRITIS OR HELICOBACTER B. DISTAL TRANSVERSE COLON, POLYPECTOMY: - TUBULAR ADENOMA CLINICAL INFORMATION: ENCOUNTER FOR OTHER SPECIFIED SPECIAL EXAMINATIONS ,CYCLICAL VOMITING, DIVERTICULAR DISEASE OF INTESTINE Procedure: ESOPHAGOGASTRODUODENOSCO PY (EGD) WITH BX AND COLONOSCOPY WITH POLYPECTOMY Preoperative diagnosis: ENCOUNTER FOR OTHER SPECIFIED SPECIAL EXAMINATIONS ,CYCLICAL VOMITING Postoperative diagnosis: ENCOUNTER FOR OTHER SPECIFIED SPECIAL EXAMINATIONS ,CYCLICAL VOMITING AND DIVERTICULOSIS SPECIMEN: A BX STOMACH - MUCOSAL THICKENING B POLYP DISTAL TRANSVERSE 5 MM GROSS DESCRIPTION: All parts labelled with patient name and [id number] A. Received in formalin labeled stomach biopsy are multiple ortiz-pink tissue fragments aggregating 1.8 x 0.3 x 0.2 cm. TS-1 B. Received in formalin labeled distal transverse polyp 5 mm are 2 ortiz tissue fragments each measuring 0.3 cm. TS-1 Ro Patrick, Grossing Police Crime Scene Technician/ Dr. Truong Romo, Pathologist Dictated by Ro Patrick MICROSCOPIC DESCRIPTION: The microscopic examination is performed, except in the case of Gross Only. Electronically Signed by Pathology Report verified by [facility] TRUONG ROMO Sign out Date: 07/06/2023 14:02 Performing Lab: [facility], [address] [place] [address] Pathology Dept Disclaimer If ancillary studies were utilized, the following Laboratory Developed Test (LDT) disclaimer will apply: Under CLIA requirements, [facility] is qualified to perform high complexity testing. For all ancillary stains, positive and negative controls stain appropriately. Performance characteristics of immunohistochemical and chromogenic in-situ hybridization tests have been determined by [facility]. These tests are used for clinical purposes, They should not be regarded as investigational or for research. Normal [facility] Absolute lymphocyte countOrd ered By: ED PROVIDER on 06-18-2023 Lymphocytes Auto (Unsp spec) [#/Vol] 1.36 10*3/uL 0.83-4.51 [facility] Basophil percentageOrdered B y: Malcom Cordova on 06-18-2023 Basophil percentage 0 SEEN /hpf 0-5 [facility] Bilirubin [Mass/Vol] 0.30 mg/dL 0.20-1.00 [facility] Comment on above: For patients on eltr ombopag therapy, use of Dimension [place] TBIL is not recommended. Chloride [Moles/Vol] 105 mmol/L 98-107 [facility] Glucose [Mass/Vol] 132 mg/dL 74-106 [facility] Comment on above: Fasting Glucose resu lt greater than or equal to 126 mg/dL suggests DIABETES MELLITUS per A.D.A. criteria. Potassium [Moles/Vol] 4.0 mmol/L 3.5-5.1 [facility] Protein [Mass/Vol] 8.2 g/dL 6.4-8.2 [facility] Sodium [Moles/Vol] 135 mmol/L 136-145 [facility] Basophil percentageOrdered B y: ED PROVIDER on 06-18-2023 Basophils/100 WBC (Bld) 0.5 % 0-1 [facility] Eosinophils/100 WBC (Bld) 0.5 % 0-5 [facility] Neutrophils (Bld) [#/Vol] 14.5 10*3/uL 2.0-7.7 [facility] Neutrophils/100 WBC (Bld) 86.1 % 47-70 [facility] WBC (Bld) [#/Vol] 16.8 10*3/uL 4.4-11.0 [facility] Bilirubin Test strip Ql (U)O rdered By: Malcom Cordova on 06-18-2023 Bilirubin Ql (U) Negative Negative [facility] Blood erythrocytes count (nu mber/volume)Ordered By: ED PROVIDER on 06-18-2023 RBC (Bld) [#/Vol] 4.54 10*6/uL 4.6-6.2 [facility] Blood hemoglobin measurement (mass/volume)Ordered By: ED PROVIDER on 06-18-2023 Hemoglobin (Bld) [Mass/Vol] 12.7 g/dL 13.0-16.5 [facility] Blood lymphocytes/100 leukoc ytesOrdered By: ED PROVIDER on 06-18-2023 Lymphocytes/100 WBC (Bld) 8.1 % 19-41 [facility] Blood monocytes/100 leukocyt esOrdered By: ED PROVIDER on 06-18-2023 Monocytes/100 WBC (Bld) 3.0 % 0-10 [facility] Blood platelet mean volumeOr dered By: ED PROVIDER on 06-18-2023 Platelet mean volume (Bld) [Entitic vol] 9.5 fL 6.2-12.0 [facility] Determination of erythrocyte mean corpuscular volume (MCV)Ordered By: ED PROVIDER on 06-18-2023 MCV (RBC) [Entitic vol] 86.8 fL 80-94 [facility] Hematocrit Auto (Bld) [Volum e fraction]Ordered By: ED PROVIDER on 06-18-2023 Hematocrit (Bld) [Volume fraction] 39.4 % 40-54 [facility] Ketones Test strip Ql (U)Ord ered By: Malcom Cordova on 06-18-2023 Ketones Ql (U) Negative Negative [facility] Laboratory - Chemistry and C hemistry - challengeOrdered By: Malcom Cordova on 06-18-2023 ALP [Catalytic activity/Vol] 54 U/L 45-117 [facility] ALT [Catalytic activity/Vol] 21 U/L 16-61 [facility] CO2 [Moles/Vol] 21.0 mmol/L 21.0-32.0 [facility] Globulin (S) [Mass/Vol] 4.0 g/dL 2.2-4.2 [facility] Lipase [Catalytic activity/Vol] 40 U/L 13-75 [facility] Comment on above: Please note:LIPASE r evised reference range effective 23. New Lipase methodology. Expected to produce lower values than the previous assay method. NEW Reference Range: 13 - 75 U/L Urea nitrogen/Creatinine [Mass ratio] 13.3 mg/mg 10-20 [facility] Laboratory - Hematology and Cell countsOrdered By: ED PROVIDER on 06-18-2023 Erythrocyte distribution width (RBC) [Entitic vol] 53.5 fL 35.1-43.9 [facility] Erythrocyte distribution width (RBC) [Ratio] 16.8 % 11.6-14.6 [facility] Immature granulocytes/100 WBC (Bld) 1.800 % 0.0-0.9 [facility] Comment on above: IG% - Immature Granu locytes (promyelocytes, myelocytes and metamyelocytes) > 1% indicates that a LEFT SHIFT is Present. MCH (RBC) [Entitic mass] 28.0 pg 27.0-32.0 [facility] Nucleated RBC/100 WBC (Bld) [Ratio] 0 % 0-5 [facility] MCHC Auto (RBC) [Mass/Vol]Or dered By: ED PROVIDER on 06-18-2023 MCHC (RBC) [Mass/Vol] 32.2 g/dL 32-36 [facility] Mucus LM Ql (Urine sed)Order ed By: Malcom Cordova on 06-18-2023 Mucus Ql (Urine sed) 0 SEEN /hpf [facility] Nitrite Test strip Ql (U)Ord ered By: Malcom Cordova on 06-18-2023 Nitrite Ql (U) Negative Negative [facility] No Panel InformationOrdered By: Malcom Cordova on 06-18-2023 Estimated GFR (MDRD) Amer 64 mL/min >60 [facility] Comment on above: GFR Calc Estimated GFR (MDRD) Non-Af Amer 53 mL/min >60 [facility] Comment on above: Non- GFR Calc Platelets bldOrdered By: ED PROVIDER on 06-18-2023 Platelets (Bld) [#/Vol] 416 10*3/uL 150-450 [facility] Protein Test strip Ql (U)Ord ered By: Malcom Cordova on 06-18-2023 Protein Ql (U) 15 mg/dl Negative [facility] Serum or plasma albumin madelyn urement (mass/volume)Ordered By: Malcom Cordova on 06-18-2023 Albumin [Mass/Vol] 4.2 g/dL 3.2-5.0 [facility] Serum or plasma albumin/glob ulin mass ratioOrdered By: Malcom Cordova on 06-18-2023 Albumin/Globulin [Mass ratio] 1.0 {ratio} 0.9-2.4 [facility] Serum or plasma calcium madelyn urement (mass/volume)Ordered By: Malcom Cordova on 06-18-2023 Calcium [Mass/Vol] 9.4 mg/dL 8.5-10.1 [facility] Serum or plasma creatinine m easurement (mass/volume)Ordered By: Malcom Cordova on 06-18-2023 Creatinine [Mass/Vol] 1.43 mg/dL 0.70-1.30 [facility] Comment on above: The validity of the calculated GFR & GFRAA in patients over 70 years has not been determined. Clinical correlation is essential. Serum or plasma urea nitroge n measurement (mass/volume)Ordered By: Malcom Cordova on 09-25-2023 Urea nitrogen [Mass/Vol] 19 mg/dL 7-18 [facility] Squamous epithelial cells de tection in urine sediment by light microscopyOrdered By: Malcom Cordova on 06-18-2023 Epithelial cells.squamous LM Ql (Urine sed) 0 SEEN /hpf 0-5 [facility] Thin prep Papanicolaou smear with manual screeningOrdered By: Malcom Cordova on 06-18-2023 Thin prep Papanicolaou smear with manual screening 22 U/L 15-37 [facility] Thin prep Papanicolaou smear with manual screening 9 5-15 [facility] Urine blood detectionOrdered By: Malcom Cordova on 06-18-2023 RBC Ql (U) 50 /ul Negative [facility] RBC Ql (U) 5-10 SEEN /hpf 0-5 [facility] Urine clarityOrdered By: Ra Cordova on 06-18-2023 Clarity (U) Clear Clear [facility] Urine color determinationOrd ered By: Malcom Cordova on 06-18-2023 Color (U) Yellow Yellow [facility] Urine glucose detectionOrder ed By: Malcom Cordova on 06-18-2023 Glucose Ql (U) Normal mg/dl Normal [facility] Urine leukocyte esterase det ection by dipstickOrdered By: Malcom Cordova on 06-18-2023 Leukocyte esterase Test strip Ql (U) Negative Negative [facility] Urine pHOrdered By: Malcom bone on 06-18-2023 pH (U) 6.0 [pH] 5.0 - 8.0 [facility] Urine sediment bacteria coun t by microscopy (number/high power field)Ordered By: Malcom Cordova on 06-18-2023 Bacteria LM.HPF (Urine sed) [#/Area] 0 /[HPF] None Seen [facility] Urine specific gravity measu rementOrdered By: Malcom Cordova on 06-18-2023 Specific gravity (U) [Rel density] 1.015 1.002-1.03 0 [facility] Urobilinogen Auto test strip Ql (U)Ordered By: Mlacom Cordova on 06-18-2023 Urobilinogen Ql (U) Normal mg/dl Normal [facility] CT ABD/PELVIS W/ IV CONTRAST ONLYon 04-13-2023 CT ABD/PELVIS W/ IV CONTRAST ONLY ADDENDUM ADDENDUM: Findings were discussed with the physician in charge of patient care on 04/06/2023 at approximately 7:44 a.m. via telephone. Interpreted by: Sandeep Grey MD Preliminary Report By: Sandeep Grey MD Electronically signed By Sandeep Grey MD Dictated Date: 04/13/2023 5:52:40 AM Prelim Date: 04/06/2023 7:22:46 AM Sign Date: 04/13/2023 5:54:25 AM Ordering Provider: MARTI GUILLAUME ORIGINAL EXAMINATION: CT OF THE ABDOMEN AND PELVIS WITH CONTRAST 04/06/2023 7:04 am TECHNIQUE: CT of the abdomen and pelvis was performed with the administration of intravenous contrast. Multiplanar reformatted images are provided for review. Automated exposure control, iterative reconstruction, and/or weight based adjustment of the mA/kV was utilized to reduce the radiation dose to as low as reasonably achievable. COMPARISON: CT abdomen pelvis 03/09/2023, 01/15/2023 HISTORY: ORDERING SYSTEM PROVIDED HISTORY: Reason for Exam: pain, N/V, marked leukocytosis FINDINGS: Degenerative changes of the spine. Moderate sized hiatal hernia. The included thoracic structures are otherwise unremarkable. Normal liver. Status post cholecystectomy. Scattered calcified granulomas in the spleen. Otherwise, normal spleen and pancreas. There is bilateral adrenal gland thickening with a few nodules, similar in appearance. There are bilateral simple renal cysts measuring up to 7.7 cm on the left. Indeterminate right midpole renal lesion measures up to 2.5 cm (previously 2.7 cm). Nonaneurysmal abdominal aorta. No abdominal lymphadenopathy, free fluid, or intraperitoneal free air identified. Diverticulosis without diverticulitis. The small bowel is unremarkable. Normal appendix. The urinary bladder is under distended limiting evaluation. Pelvic organs are otherwise unremarkable. Small fat containing left inguinal hernia. IMPRESSION: Diverticulosis without diverticulitis. Stable indeterminate right midpole renal lesion. Nonemergent renal ultrasound or MR may be obtained for further characterisation. Similar appearing adrenal thickening without underlying hypodensities may reflect benign adrenal adenomas. Further evaluation with adrenal CT or MR protocol to be considered. Small quantity of gas anterior to the distal esophagus which is only partially visualized on this exam could potentially represent free air in the mediastinum, CT thorax could be useful in further evaluation. Findings could potentially represent esophageal perforation. I have personally reviewed the images of this examination and agree with the resident's findings and interpretation. Interpreted by: Sandeep Grey MD Preliminary Report By: Manuel Gutierrez Electronically signed By Sandeep Grey MD Dictated Date: 04/06/2023 7:11:17 AM Prelim Date: 04/06/2023 7:22:46 AM Sign Date: 04/06/2023 7:41:51 AM Ordering Provider: MARTI [facility] ([place]) Discharge Planning [id number] 04-08-2023 Discharge Planning Note2 Discharge Plann ing: Needs Prior to Discharge (ex. Home Care Orders, IV/O2 prescriptions) PT/OT Discharge Barriersmedical Planned Dispositionhome AMPAC < 20no PCP/Next Provider Follow Up Scheduledyes [place] of Choice Explainedno Anticipated Discharge [id number] Discharge Planning Transitional Power Press Supervisor Note: 04/08/2023@ 12:25 Met with patient/ to introduce myself, role and discuss discharge planning s/p thoracic surgery is alert and oriented lives with spouse. Independent in all ADL's. Requires a cane to assist with mobility. Patient denies active home care or home care needs. Demographics and contact information confirmed. Will continue to monitor patient for all home going needs. Julissa Morales RN [facility] [phone] Assessment: Discharge Planning Assessment [id number] Discharge Planning Assessment Completed byJulissa Morales, Doc Halo [facility] [phone] Prior Level of FunctioningIndependent in all adl's. Lives Withdomestic partner(1) Living Arrangementshouse(1) Stated Reason for Admissionvomiting and nausea(1) Arrived Fromhospital (1) PCPDr. Santana Hou [facility] Recent [facility]/ Injury/ Need Assist with Ambulationn/a Home Care Agency/Support Servicesn/a Diabetic/Supplies Neededn/a Resource/Environmental Concernsnone(1) Anticipated Transition T[place](1) Services Anticipated at Transitionnone(1) Anticipated Changes Related to Illnessnone Equipment Needed After Dischargenone Anticipated Discharge Facility/Level of Care Needs.Home Discharge Planning CommentsPatient feels safe at home and denies any issues with making follow up appointments or getting his medications. Social Determinants of Health Identifiedn/a Transportation Home Who/HowFamily will transport Medication Adherence/Afford/Obtainy es O2 LPMn/a Discharge Documentation: Code StatusCode Status order at time of discharge: Full Code Electronic Signatures: Julissa Morales (CLIN [employer]) (Signed 08-Apr-2023 12:39) Authored: Discharge Planning, Assessment, Discharge Documentation Last Updated: 08-Apr-2023 12:39 by Julissa Morales ([employer]) References: 1. Data Referenced From Patient Profile - Adult v2 07-Apr-2023 02:50 Normal [facility] UA MICROSCOPICon 04-08-2023 BACTERIA 1+ /HPF Abnormal [facility] Comment on above: Performed By: #### U AMIC ####[id number] [place] [address] Mucus Ql (Urine sed) 2+ /LPF Normal [facility] Comment on above: Performed By: #### U AMIC ####[id number] [place] [address] RBC 8 /HPF Abnormal 0-5 [facility] Comment on above: Performed By: #### U AMIC ####[id number] [place] [address] WBC 5 /HPF Normal 0-5 [facility] Comment on above: Performed By: #### U AMIC ####[id number] [place] [address] URINALYSIS WITH CULTURE IF I NDICATEDon 04-08-2023 Appearance (U) CLEAR Normal CLEAR [facility] Comment on above: Performed By: #### U ARFX ####[id number] [place] [address] Bilirubin Ql (U) Negative Normal NEGATIVE [facility] Comment on above: Performed By: #### U ARFX ####[id number] [place] [address] Color (U) NETTE Normal STRAW,YELL OW [facility] Comment on above: Performed By: #### U ARFX ####[id number] [place] [address] Glucose Ql (U) Negative Normal NEGATIVE [facility] Comment on above: Performed By: #### U ARFX ####[id number] [place] [address] Hemoglobin Ql (U) SMALL (1+) Abnormal NEGATIVE [facility] Comment on above: Performed By: #### U ARFX ####[id number] [place] [address] Ketones Ql (U) 5 (TRACE) Abnormal NEGATIVE [facility] Comment on above: Performed By: #### U ARFX ####[id number] [place] [address] Leukocyte esterase Test strip Ql (U) Negative Normal NEGATIVE [facility] Comment on above: Performed By: #### U ARFX ####[id number] [place] [address] Nitrite Ql (U) Negative Normal NEGATIVE [facility] Comment on above: Performed By: #### U ARFX ####[id number] [place] [address] pH (U) 6.0 [pH] Normal 5.0 - 8.0 [facility] Comment on above: Performed By: #### U ARFX ####[id number] [place] [address] Protein Ql (U) Negative Normal NEGATIVE [facility] Comment on above: Performed By: #### U ARFX ####[id number] [place] [address] Specific gravity (U) [Rel density] 1.025 Normal 1.005 - 1.035 [facility] Comment on above: Performed By: #### U ARFX ####[id number] [place] [address] Urobilinogen (U) [Mass/Vol] mg/dL Normal 0.0 - 1.9 [facility] Comment on above: Performed By: #### U ARFX ####[id number] [place] [address] .Auto Diffon 04-07-2023 Basophil, Absolute 0.1 10 3/mcL Normal 0.0-0.3 [facility] ([place]) Comment on above: Performed By: #### G FR, MG, LIP, MDW, CBC, CMP, MORPH, DIFF #### [address] [address] Basophils/100 WBC (Bld) 0.7 % Normal 0.0-2.5 [facility] ([place]) Comment on above: Performed By: #### G FR, MG, LIP, MDW, CBC, CMP, MORPH, DIFF #### [address] [address] Eosinophil, Absolute 0.0 10 3/mcL Normal 0.0-0.7 [facility] ([place]) Comment on above: Performed By: #### G FR, MG, LIP, MDW, CBC, CMP, MORPH, DIFF #### [address] [address] Eosinophils/100 WBC (Bld) 0.1 % Normal 0.0-6.0 [facility] ([place]) Comment on above: Performed By: #### G FR, MG, LIP, MDW, CBC, CMP, MORPH, DIFF #### [address] [address] Lymphocyte, Absolute 1.5 10 3/mcL Normal 0.9-4.3 [facility] ([place]) Comment on above: Performed By: #### G FR, MG, LIP, MDW, CBC, CMP, MORPH, DIFF #### [address] [address] Lymphocytes/100 WBC (Bld) 10.6 % Low 20.0-40.0 [facility] ([place]) Comment on above: Performed By: #### G FR, MG, LIP, MDW, CBC, CMP, MORPH, DIFF #### [address] [address] Monocyte, Absolute 1.3 10 3/mcL Normal 0.1-1.4 [facility] ([place]) Comment on above: Performed By: #### G FR, MG, LIP, MDW, CBC, CMP, MORPH, DIFF #### [address] [address] Monocytes/100 WBC (Bld) 9.4 % Normal 2.0-13.0 [facility] ([place]) Comment on above: Performed By: #### G FR, MG, LIP, MDW, CBC, CMP, MORPH, DIFF #### [address] [address] Neutrophils/100 WBC (Bld) 79.2 % High 50.0-75.0 [facility] ([place]) Comment on above: Performed By: #### G FR, MG, LIP, MDW, CBC, CMP, MORPH, DIFF #### [address] [address] .GFRon 04-07-2023 GFR Non- >60 Normal [facility] ([place]) Comment on above: Result Comment: GFR Population mean for , Non- Americans Ages 20-29 = 116 mL/min/1.73 sq.m. Ages 30-39 = 107 mL/min/1.73 sq.m. Ages 40-49 = 99 mL/min/1.73 sq.m. Ages 50-59 = 93 mL/min/1.73 sq.m. Ages 60-69 = 85 mL/min/1.73 sq.m. Ages 70+ = 75 mL/min/1.73 sq.m. Chronic Kidney Disease: Less than 60 mL/min/1.73 square meters End Stage Renal Disease: Less than 15 mL/min/1.73 square meters Performed By: #### G FR, MG, LIP, MDW, CBC, CMP, MORPH, DIFF #### [address] [address] GFR >60 Normal [facility] ([place]) Comment on above: Result Comment: GFR Population mean for , Non- Americans Ages 20-29 = 116 mL/min/1.73 sq.m. Ages 30-39 = 107 mL/min/1.73 sq.m. Ages 40-49 = 99 mL/min/1.73 sq.m. Ages 50-59 = 93 mL/min/1.73 sq.m. Ages 60-69 = 85 mL/min/1.73 sq.m. Ages 70+ = 75 mL/min/1.73 sq.m. Chronic Kidney Disease: Less than 60 mL/min/1.73 square meters End Stage Renal Disease: Less than 15 mL/min/1.73 square meters Performed By: #### G FR, MG, LIP, MDW, CBC, CMP, MORPH, DIFF #### [id number] [place], [place] [address] .NEUABSon 04-07-2023 Neutrophil, Absolute 10.9 10 3/mcL High 2.3-8.1 A [facility] ([place]) Comment on above: Performed By: #### G FR, MG, LIP, MDW, CBC, CMP, MORPH, DIFF #### [id number] [place], [place] [address] Admission Risk Screen - Adul ton 04-07-2023 Admission Risk Screen - Adult Allergies: Allergies: vancomycin: Rash penicillin: Unknown Macrobid: Unknown morphine: Unknown Patient Verification: New W ID Band Applied in my Departmentyes Patient Identity Verified Bypatient ID Band FULL Name, include Middle, spelling matches patient's ID used for verificationyes ID Band Matches Patient ID used for Verficationyes ID Band MRN Matches EMR MRNyes Visitor Restriction: Coronavirus Visitor Restriction: Reasonable restrictions to in-person visitors will be observed due to current coronavirus pandemic. 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 Moderate risk (25-44). High risk (>44).35 Zamudio InterventionsMODERATE INTERVENTIONS: *Low Interventions Plus: * falls risk band/sticker applied to patient, *yellow non-skid footwear, *instruct to call for assistance before getting out of bed, *bed/chair/bedside commode/toilet alarms, *sensory devices/ambulatory aides available and in reach, *medications reviewed for potential side effects and care planning. Family Violence Screen: Are you or have you been threatened or abused physically, emotionally, or sexually by anyoneno Do you feel UNSAFE going back to the place where you are livingno Clinical assessment: Are there any apparent signs of injuries/behaviors that could be related to abuse/neglectno Social Service Consult for abuse/neglect needed this visitno Functional Screen: Functional Screen: In the recent/past 2-4 weeks, patient or family have noticedno issues that require a speech/language consult at this time AM-PAC- Basic Mobility/Daily Activity: Patient baseline bedboundno Learning Assessment (Patient): Patient is Able to be Assessed for Learningyes Factors Influencing Readiness to Learnacuteness of illness Factors that Impact Ability to Learnnone Devices/Methods Used to Communicatenone Learning Preferencesaudio Cultural Considerationsnone Developmental Considerationsnone Taoism Considerationsnone Learning Assessment (Other Learner): Other learner availableno Depression Screen: During the past month, have you often been bothered by feeling down, depressed or hopelessno During the past month, have you often had little interest or pleasure in doing thingsno Have you had any thoughts of harming anyone elseno [place] Suicide: Risk Screen Not Applicable/Able to Answerable to be screened In the Past Month: Have you wished you were or could go to sleep and not wake upno In the Past Month: Have you had any actual thoughts of killing yourselfno Lifetime: Have you ever done, started to do, or prepared to do anything to end your lifeno [place] Suicide Risknegative Adult Nutrition Screen: Have you recently lost weight without tryingunsure Have you been eating poorly because of a decreased appetiteno Malnutrition Screening Tool Score2 Malnutrition Screening Tool RiskMST = 2 or more At Risk. Eating poorly and/or recent weight loss Nutrition Consult needed this visitno Can Patient Participate in Room Serviceyes Patient requires Paper Dishes/Plastic Utensilsno Pain Screen: Pain Scalenumerical 0-10 Pain Scale Educationteaching provided Current Pain Level3 = Mild Acceptable Pain Level3 = Mild Expression of Pain (nonverbal)none Chronic Painno Spiritual Screen: Are there any cultural, spiritual, amish practices/values/needs that are important for us to knowno CAGE: Is this an injured patient at a Trauma Center ([facility]/[place] /[place]): no Vaccinations: Vaccination - Influenza Vaccination Screen: Is it flu season (between and December 22)No Vaccination - Pneumonia Vaccination Screen: Patient has received a previous pneumonia vaccine:yes Sukhi: Skin - Sukhi Scale: Sukhi: Sensory Perception (response to environment)(4) no impairment Sukhi: Moisture (degree skin exposed to moisture)(4) rarely moist Sukhi: Activity (ability to walk)(4) walks frequently Sukhi: Mobility (amount/control of body movement)(4) no limitation Sukhi: Nutrition (quality of food intake)(2) probably inadequate Sukhi: Friction and Shear(3) no apparent problem [place] (more content not included)... Normal [facility] BMPon 04-07-2023 BUN/Creatinine Ratio 18.7 ratio Normal 10.0-22.0 [facility] ([place]) Comment on above: Performed By: #### G FR, MG, LIP, MDW, CBC, CMP, MORPH, DIFF #### [address] [address] Calcium [Mass/Vol] 8.8 mg/dL Normal 8.7-10.4 [facility] ([place]) Comment on above: Performed By: #### G FR, MG, LIP, MDW, CBC, CMP, MORPH, DIFF #### [address] [place], [place] [address] Chloride [Moles/Vol] 114 mmol/L High 98-110 [facility] ([place]) Comment on above: Performed By: #### G FR, MG, LIP, MDW, CBC, CMP, MORPH, DIFF #### [address] [place], [place] [address] CO2 [Moles/Vol] 23 mmol/L Normal 22-32 [facility] ([place]) Comment on above: Performed By: #### G FR, MG, LIP, MDW, CBC, CMP, MORPH, DIFF #### [address] [address] Creatinine [Mass/Vol] 1.07 mg/dL Normal 0.60-1.40 [facility] ([place] Comment on above: Performed By: #### G FR, MG, LIP, MDW, CBC, CMP, MORPH, DIFF #### [address] [address] Electrolyte Balance 12.0 mEq/L Normal 4.0-15.0 [facility] ([place]) Comment on above: Performed By: #### G FR, MG, LIP, MDW, CBC, CMP, MORPH, DIFF #### [address] [address] Glucose [Mass/Vol] 88 mg/dL Normal 82-115 [facility] ([place]) Comment on above: Performed By: #### G FR, MG, LIP, MDW, CBC, CMP, MORPH, DIFF #### [address] [address] Potassium [Moles/Vol] 3.6 mmol/L Normal 3.5-5.0 [facility] ([place]) Comment on above: Result Comment: Spec imen slightly hemolyzed. Performed By: #### G FR, MG, LIP, MDW, CBC, CMP, MORPH, DIFF #### [address] [address] Sodium [Moles/Vol] 149 mmol/L High 136-145 [facility] ([place]) Comment on above: Performed By: #### G FR, MG, LIP, MDW, CBC, CMP, MORPH, DIFF #### [address] [address] Urea nitrogen [Mass/Vol] 20.0 mg/dL Normal 8.0-22.0 [facility] ([place]) Comment on above: Performed By: #### G FR, MG, LIP, MDW, CBC, CMP, MORPH, DIFF #### [id number] [place], [place] [address] CBCon 04-07-2023 Erythrocyte distribution width (RBC) [Ratio] 17.7 % High 11.5 - 14.5 [facility] Comment on above: Performed By: #### C BC #### [facility] [address] [place] [address] Hematocrit (Bld) [Volume fraction] 31.4 % Low 41.0 - 52.0 [facility] Comment on above: Performed By: #### C BC #### [facility] [address] [place] [address] Hemoglobin (Bld) [Mass/Vol] 10.2 g/dL Low 13.5 - 17.5 [facility] Comment on above: Performed By: #### C BC #### [facility] [address] [place] [address] MCHC (RBC) [Mass/Vol] 32.5 g/dL Normal 32.0 - 36.0 [facility] Comment on above: Performed By: #### C BC #### [facility] [address] [place] [address] MCV (RBC) [Entitic vol] 85 fL Normal 80 - 100 U [facility] Comment on above: Performed By: #### C BC #### [facility] [address] [place] [address] NUCLEATED RBC 0.0 /100 WBC Normal 0.0-0.0 [facility] Comment on above: Performed By: #### C BC #### [facility] [address] [place] [address] Platelets (Bld) [#/Vol] 321 10*3/uL Normal 150 - 450 [facility] Comment on above: Performed By: #### C BC #### [facility] [address] [place] [address] RBC 3.70 x10E12/L Low 4.50 - 5.90 [facility] Comment on above: Performed By: #### C BC #### [facility] [address] [place] [address] WBC (Bld) [#/Vol] 11.2 10*3/uL Normal 4.4 - 11.3 [facility] Comment on above: Performed By: #### C BC #### [facility] [address] [place] [address] Erythrocyte distribution width (RBC) [Ratio] 18.0 % High 11.5-15.5 [facility] ([place]) Comment on above: Performed By: #### G FR, BMP, ANEU, CBC, ADIFF #### [address] [address] Hematocrit (Bld) [Volume fraction] 31.1 % Low 40.0-52.0 [facility] ([place]) Comment on above: Performed By: #### G FR, BMP, ANEU, CBC, ADIFF #### [address] [address] Hgb 10.2 G/dL Low 13.0-17.5 [facility] ([place]) Comment on above: Performed By: #### G FR, BMP, ANEU, CBC, ADIFF #### [address] [address] MCH (RBC) [Entitic mass] 27.4 pg Normal 27.0-33.0 [facility] ([place]) Comment on above: Performed By: #### G FR, BMP, ANEU, CBC, ADIFF #### [address] [address] MCHC 32.9 G/dL Normal 32.0-36.0 [facility] ([place]) Comment on above: Performed By: #### G FR, BMP, ANEU, CBC, ADIFF #### [address] [address] MCV (RBC) [Entitic vol] 83.2 fL Normal 81.0-100.0 [facility] ([place]) Comment on above: Performed By: #### G FR, BMP, ANEU, CBC, ADIFF #### [address] [address] Platelet 304 10 3/mcL Normal 150-450 [facility] ([place]) Comment on above: Performed By: #### G FR, BMP, ANEU, CBC, ADIFF #### [address] [address] Platelet mean volume (Bld) [Entitic vol] 8.1 fL Normal 6.4-10.5 [facility] ([place]) Comment on above: Performed By: #### G FR, BMP, ANEU, CBC, ADIFF #### [address] [address] RBC 3.74 10 6/mcL Low 4.50-6.00 [facility] ([place]) Comment on above: Performed By: #### G FR, BMP, ANEU, CBC, ADIFF #### [address] [address] WBC 13.8 10 3/mcL High 4.5-10.8 [facility] ([place]) Comment on above: Performed By: #### G FR, BMP, ANEU, CBC, ADIFF #### [address] [address] CBC AND DIFFERENTIALon 04-07 % AUTOMATED IMMATURE GRAN 0.6 % Normal 0.0 - 0.9 [facility] Comment on above: Result Comment: Salome ture Granulocyte Count (IG) includes promyelocytes, myelocytes and metamyelocytes but does not include bands. Percent differential counts (%) should be interpreted in the context of the absolute cell counts (cells/L). Performed By: #### C BCDF #### [facility] [address] [place] [address] Basophils (Bld) [#/Vol] 0.04 10*3/uL Normal 0.00 - 0.10 [facility] Comment on above: Performed By: #### C BCDF #### [facility] [address] [place] [address] Basophils/100 WBC (Bld) 0.3 % Normal 0.0 - 2.0 [facility] Comment on above: Performed By: #### C BCDF #### [facility] [address] [place] [address] Eosinophils (Bld) [#/Vol] 0.02 10*3/uL Normal 0.00 - 0.70 [facility] Comment on above: Performed By: #### C BCDF #### [facility] [address] [place] [address] Eosinophils/100 WBC (Bld) 0.1 % Normal 0.0 - 6.0 [facility] Comment on above: Performed By: #### C BCDF #### [facility] [address] [place] [address] Erythrocyte distribution width (RBC) [Ratio] 17.9 % High 11.5 - 14.5 [facility] Comment on above: Performed By: #### C BCDF #### [facility] [address] [place] [address] Hematocrit (Bld) [Volume fraction] 31.9 % Low 41.0 - 52.0 [facility] Comment on above: Performed By: #### C BCDF #### [facility] [address] [place] [address] Hemoglobin (Bld) [Mass/Vol] 10.3 g/dL Low 13.5 - 17.5 [facility] Comment on above: Performed By: #### C BCDF #### [facility] [address] [place] [address] Lymphocytes (Bld) [#/Vol] 1.79 10*3/uL Normal 1.20 - 4.80 [facility] Comment on above: Performed By: #### C BCDF #### [facility] [address] [place] [address] Lymphocytes/100 WBC (Bld) 12.5 % Normal 13.0 - 44.0 [facility] Comment on above: Performed By: #### C BCDF #### [facility] [address] [place] [address] MCHC (RBC) [Mass/Vol] 32.3 g/dL Normal 32.0 - 36.0 [facility] Comment on above: Performed By: #### C BCDF #### [facility] [address] [place] [address] MCV (RBC) [Entitic vol] 85 fL Normal 80 - 100 U [facility] Comment on above: Performed By: #### C BCDF #### [facility] [address] [place] [address] Monocytes (Bld) [#/Vol] 1.29 10*3/uL High 0.10 - 1.00 [facility] Comment on above: Performed By: #### C BCDF #### [facility] [address] [place] [address] Monocytes/100 WBC (Bld) 9.0 % Normal 2.0 - 10.0 [facility] Comment on above: Performed By: #### C BCDF #### [facility] [address] [place] [address] Neutrophils (Bld) [#/Vol] 11.12 10*3/uL High 1.20 - 7.70 [facility] Comment on above: Performed By: #### C BCDF #### [facility] [address] [place] [address] Neutrophils/100 WBC (Bld) 77.5 % Normal 40.0 - 80.0 [facility] Comment on above: Performed By: #### C BCDF #### [facility] [address] [place] [address] NUCLEATED RBC 0.0 /100 WBC Normal 0.0-0.0 [facility] Comment on above: Performed By: #### C BCDF #### [facility] [address] [place] [address] Platelets (Bld) [#/Vol] 299 10*3/uL Normal 150 - 450 [facility] Comment on above: Performed By: #### C BCDF #### [facility] [address] [place] [address] RBC 3.75 x10E12/L Low 4.50 - 5.90 [facility] Comment on above: Performed By: #### C BCDF #### [facility] [address] [place] [address] WBC (Bld) [#/Vol] 14.3 10*3/uL High 4.4 - 11.3 [facility] Comment on above: Performed By: #### C BCDF #### [facility] [address] [place] [address] COAGULATION SCREENon 023 aPTT Coag (Bld) [Time] 30 s Normal 27 - 38 [facility] Comment on above: Result Comment: Note new reference range as of 03/13/2023 at 10:00am. Performed By: #### C OAGS #### [facility] [address] [place] [address] PT Coag (PPP) [Time] 11.9 s Normal 9.8 - 12.8 [facility] Comment on above: Result Comment: Note new reference range as of 03/13/2023 at 10:00am. Performed By: #### C OAGS #### [facility] [address] [place] [address] PT, INR 1.1 Normal 0.9 - 1.1 [facility] Comment on above: Performed By: #### C OAGS #### [facility] [address] [place] [address] Discharge [id number] Discharge Profile2 Discharge Orders: Anticipated Discharge Date: Anticipated Discharge [id number] Problem List: Additional Dx: Esophageal perforation: Catalog Name: Perforation of esophagus Hospital Providers: Provider RoleProvider Name AttendingAshlee Cardenas Aaron J Code Status: Code Status at Discharge: Full Code DNR Order Additional Instructions (peds only): Activity: activity as tolerated. May shower. May return to school/work Instructions: May drive. Call Provider If (Homegoing Patients): Breathing faster than normal. Breathing harder than normal or having retractions. Fever of 100.4 F (38 C) or higher. Chills. Acting very sleepy and difficult to awaken. Vomiting (throwing up) and not able to eat or drink for 12 hours. Thoracic: Patient Instructions: - Return to emergency room for severe chest pain or shortness of breath. Diet: Clear liquid diet for 5 days followed by Full liquid diet for 2 days and regular diet after that. Follow-Up Appointment: Physician/Dept/ServiceTh oracic surgery Dr. Cardenas Call to Schedule in2 weeks Phone [phone] Hospital Course (Home Care/Gold Form): Hospital Course: Hospital Course: include significant abnormal lab values 62YO M admitted due to concerns for esophageal perforation given pneumomediastinum after 1-2 weeks of severe episodes of vomiting. Patient does have a history of cyclic vomiting and treatments for GERD such as prior hiatal hernia repair and Gabriela fundoplication. Patient has been hemodynamically stable and his pain and other symptoms of nausea and vomiting improved and subsequently resolved since admission. His leukocytosis has improved since presentation with broad-spectrum antibiotics. CT scan from outside hospital does demonstrate pneumomediastinum. Esophagram done here demonstrates no definitive leak of contrast. He does not have any signs or symptoms concerning for a large esophageal perforation such as dysphagia, chest wall crepitus, pleural effusion, worsening clinical status. PO challenge with clear liquids was well tolerated and patient appropriate to discharge home with oral antibiotics for 5 days, clear liquid diet for 5 days followed by full liquid diet for 2 days and subsequent regular diet with outpatient follow up. Provider FINAL REVIEW of Orders: Final Review: Final Review of Medication Reconciliation and Orders Completedby Physician Reviewing ProviderTruong Szymanski MD (Resident) at 07-Apr-2023 13:50:39 Electronic Signatures: Truong Szymanski (Resident)) (Signed 07-Apr-2023 17:36) Authored: Discharge Orders, Thoracic, Hospital Course (Home Care/Gold Form), Provider FINAL REVIEW of Orders, Gold Form - [employer] Summary Last Updated: 07-Apr-2023 17:36 by Truong Szymanski ( (Resident)) Normal [facility] Electrocardiogram 12 Leadon 04-07-2023 Electrocardiogram 12 Lead Ventricular Rate 66 Atrial Rate 66 P-R Interval 142 QRS Duration 102 Q-T Interval 448 QTC Calculation(Bazett) 469 P Advance 48 R Advance 23 T Advance 14 QRS Count 11 Q Onset 219 P Onset 148 P Offset 209 T Offset 443 QTC Fredericia 462 Diagnosis Class Abnormal Diagnosis Normal sinus rhythm Possible Inferior infarct , age undetermined Abnormal ECG No previous ECGs available Confirmed by Thelma Smyth ([email or web address]) on 04/10/2023 10:28:27 PM Normal [facility] GI ESOPHAGRAMon 04-07-2023 GI ESOPHAGRAM Patient Name: TRUONG ROSARIO STUDY: GI ESOPHAGRAM; 04/07/2023 2:27 am INDICATION: Concern for Esophageal Perforation . COMPARISON: CT chest dated 04/06/2023 ACCESSION NUMBER(S): [id number] ORDERING CLINICIAN: LUCA TORRES TECHNIQUE: Initial photoflash powder mixer radiograph of the esophagus was obtained. Multiple fluoroscopic spot images were obtained after the administration of 80 mL of gastrografin contrast. The patient tolerated the procedure well. Fluoroscopic time was 0.2 minutes. FINDINGS: Initial photoflash powder mixer image demonstrates an unremarkable upper chest. Fluoroscopic images demonstrate normal peristalsis with free flow of gastrografin through the pharynx and esophagus without evidence of obstruction or stricture. There is expansion of contrast at the level of the diaphragm. There is no evidence of extrinsic compression of the esophagus or pharynx. IMPRESSION: Expansion of contrast at the level of the diaphragm may correlate with hiatal hernia noted on recent CT chest, and imaging findings may represent contrast expansion into the larger lumen of the herniated stomach. However, contrast leakage is not entirely excluded among differentials, given limited visualization. Consider CT follow-up if clinical concern persists. I personally reviewed the images/study and I agree with the resident findings as stated. This study was interpreted at [facility], [place], [place]. The critical information above was relayed directly by resident Dr. Sobeida Dougherty by telephone to LUCA TORRES on 04/07/2023 at 2:49 am with readback verification. Electronically signed by: CLAYTON MONSIVAIS MD Normal [facility] HEPATIC FUNCTION PANELon Albumin [Mass/Vol] 3.9 g/dL Normal 3.4 - 5.0 [facility] Comment on above: Performed By: #### H EPFP #### [facility] [address] [place] [address] Performed By: #### R ENAL #### [facility] [address] [place] [address] ALP [Catalytic activity/Vol] 46 U/L Normal 33 - 136 [facility] Comment on above: Performed By: #### H EPFP #### [facility] [address] [place] [address] ALT [Catalytic activity/Vol] 13 U/L Normal 10 - 52 [facility] Comment on above: Result Comment: Suyapa ents treated with Sulfasalazine may generate falsely decreased results for ALT. Performed By: #### H EPFP #### [facility] [address] [place] [address] AST [Catalytic activity/Vol] 31 U/L Normal 9 - 39 [facility] Comment on above: Result Comment: MILD HEMOLYSIS DETECTED. The result may be falsely elevated due to hemolysis or other interferents. Clinical correlation is recommended. Repeat testing may be considered. Performed By: #### H EPFP #### [facility] [address] [place] [address] Bilirubin [Mass/Vol] 0.5 mg/dL Normal 0.0 - 1.2 [facility] Comment on above: Performed By: #### H EPFP #### [facility] [address] [place] [address] Bilirubin.indirect [Mass/Vol] 0.1 mg/dL Normal 0.0 - 0.3 [facility] Comment on above: Result Comment: MILD HEMOLYSIS DETECTED. The result may be falsely decreased due to hemolysis or other interferents. Clinical correlation is recommended. Repeat testing may be considered. Performed By: #### H EPFP #### [facility] [address] [place] [address] Protein [Mass/Vol] 5.9 g/dL Low 6.4 - 8.2 [facility] Comment on above: Performed By: #### H EPFP #### [facility] [address] [place] [address] LACTATEon 04-07-2023 Lactate [Moles/Vol] 0.9 mmol/L Normal 0.4 - 2.0 [facility] Comment on above: Result Comment: Monica puncture immediately after or during the administration of Metamizole may lead to falsely low results. Testing should be performed immediately prior to Metamizole dosing. Performed By: #### L ACT #### [facility] [address] [place] [address] MAGNESIUMon 04-07-2023 Magnesium [Mass/Vol] 2.02 mg/dL Normal 1.60 - 2.40 [facility] Comment on above: Performed By: #### M G #### [facility] [address] [place] [address] Order Reconciliationon 04-07 Order Reconciliation Page 1 Discharge Reconciliation Document Reconciliation Type: Discharge requested on behalf of Dariel Campbell (Resident) done by Dariel Campbell ( (Resident)) Discharge - Partial Reconciliation: 07-Apr-2023 13:39 by: Truong Szymanski ( (Resident)) Discharge - Reconciliation: 07-Apr-2023 17:33 by: Truong Szymanski ( (Resident)) Discharge - Reset to Incomplete: 08-Apr-2023 11:44 by: Dariel Campbell ( (Resident)) Discharge - Reconciliation: 08-Apr-2023 11:46 by: Dariel Campbell ( (Resident)) Discharge - Reset to Incomplete: 08-Apr-2023 12:38 by: Dariel Campbell ( (Resident)) Discharge - Reconciliation: 08-Apr-2023 12:39 by: Dariel Campbell ( (Resident)) Discharge - Reset to Incomplete: 08-Apr-2023 12:40 by: Dariel Campbell ( (Resident)) Discharge - Reconciliation: 08-Apr-2023 12:40 by: Dariel Campbell ( (Resident)) Home Medications EnteredHOME MEDICATIONS AT DISCHARGE DateReconciliation Comment/ Additional Information amLODIPine 10 mg oral tablet 1 tab(s) orally once a day 24-Feb-2017 00:00 amLODIPine 10 mg oral tablet 1 tab(s) orally once a day 24-Feb-2017 00:00 amLODIPine 10 mg oral tablet is continued as amLODIPine 10 mg oral tablet aspirin 81 mg oral tablet, chewable 1 tab(s) orally once a day 24-Feb-2017 00:00 aspirin 81 mg oral tablet, chewable 1 tab(s) orally once a day 24-Feb-2017 00:00 aspirin 81 mg oral tablet, chewable is continued as aspirin 81 mg oral tablet, chewable atorvastatin 40 mg oral tablet 1 tab(s) orally once (at bedtime) 24-Feb-2017 00:00 atorvastatin 40 mg oral tablet 1 tab(s) orally once (at bedtime) 24-Feb-2017 00:00 atorvastatin 40 mg oral tablet is continued as atorvastatin 40 mg oral tablet citalopram 40 mg oral tablet 1 tab(s) orally once a day 26-Nov-2015 21:20 citalopram 40 mg oral tablet 1 tab(s) orally once a day 26-Nov-2015 21:20 citalopram 40 mg oral tablet is continued as citalopram 40 mg oral tablet clopidogrel 75 mg oral tablet 1 tab(s) orally once a day 07-Apr-2023 01:25 clopidogrel 75 mg oral tablet 1 tab(s) orally once a day 07-Apr-2023 01:25 clopidogrel 75 mg oral tablet is continued as clopidogrel 75 mg oral tablet dicyclomine 20 mg oral tablet 1 tab(s) orally 4 times a day 07-Apr-2023 01:26 dicyclomine 20 mg oral tablet 1 tab(s) orally 4 times a day 07-Apr-2023 01:26 dicyclomine 20 mg oral tablet is continued as dicyclomine 20 mg oral tablet fenofibrate 145 mg oral tablet 1 tab(s) orally once a day 07-Apr-2023 01:26 Discontinued; Discontinue from ORM fenofibrate 145 mg oral tablet is not required levoFLOXacin 750 mg oral tablet 1 tab(s) orally once a day 07-Apr-2023 17:41 levoFLOXacin 750 mg oral tablet 1 tab(s) orally once a day 08-Apr-2023 12:40 Discontinued; Discontinue from ORM Prescription is created for levoFLOXacin 750 mg oral tablet lisinopril 20 mg oral tablet 1 tab(s) orally once a day 07-Apr-2023 01:26 lisinopril 20 mg oral tablet 1 tab(s) orally once a day 07-Apr-2023 01:26 lisinopril 20 mg oral tablet is continued as lisinopril 20 mg oral tablet meloxicam 15 mg oral tablet 1 tab(s) orally once a day 07-Apr-2023 01:26 meloxicam 15 mg oral tablet 1 tab(s) orally once a day 07-Apr-2023 01:26 meloxicam 15 mg oral tablet is continued as meloxicam 15 mg oral tablet metoprolol succinate 25 mg oral tablet, extended release 1 tab(s) orally once a day 07-Apr-2023 01:27 metoprolol succinate 25 mg oral tablet, extended release 1 tab(s) orally once a day 07-Apr-2023 01:27 metoprolol succinate 25 mg oral tablet, extended release is continued as metoprolol succinate 25 mg oral tablet, extended release prochlorperazine 10 mg oral tablet 1 tab(s) orally 3 times a day 07-Apr-2023 01:25 prochlorperazine 10 mg oral tablet 1 tab(s) orally 3 times a day 07-Apr-2023 01:25 prochlorperazine 10 mg oral tablet is continued as prochlorperazine 10 mg oral tablet promethazine 25 mg oral tablet 1 tab(s) orally every 6 hours 07-Apr-2023 01:27 promethazine 25 mg oral tablet 1 tab(s) orally every 6 hours 07-Apr-2023 01:27 promethazine 25 mg oral tablet is continued as promethazine 25 mg oral tablet promethazine 25 mg rectal suppository 1 suppository(ies) rectal 2 times a day, As Needed 26-Nov-2015 21:20 promethazine 25 mg rectal suppository 1 suppository(ies) rectal 2 times a day, As Needed 26-Nov-2015 21:20 promethazine 25 mg rectal suppository is continued as promethazine 25 mg rectal suppository Protonix 40 mg oral delayed release tablet 1 tab(s) orally 2 times a day 26-Nov-2015 21:18 Protonix 40 mg oral delayed release tablet 1 tab(s) orally 2 times a day 26-Nov-2015 21:18 Protonix 40 mg oral delayed release tablet is continued as Protonix 40 mg oral delayed release tablet sucralfate 1 g oral tablet 1 tab(s) orally 4 times a day (before meals and at bedtime) 07-Apr-2023 01:27 sucralfate 1 g oral tablet 1 tab(s) orally 4 times a day (before meals and at bedtime) 07-Apr-2023 01:27 sucralfate 1 g oral (more content not included)... Normal [facility] Order Reconciliation Page 1 Admission Reconciliation Document Reconciliation Type: Admission requested on behalf of Luca Torres (Resident) done by Luca Torres ( (Resident)) Admission - Partial Reconciliation: 07-Apr-2023 01:21 by: Luca Torres ( (Resident)) Admission - Reconciliation: 07-Apr-2023 01:29 by: Luca Torres ( (Resident)) Home MedicationsEnteredLast Dose TakenReconciled with current Order Reconciliation Comment/ Additional Information acetaminophen 325 mg oral tablet 2 tab(s) orally every 6 hours, As needed, Pain - Mild (1-3) 07-Apr-2023 NoLongerTaking amitriptyline 10 mg oral tablet 2 tab(s) orally once (at bedtime) 07-Apr-2023 NoLongerTaking amLODIPine 10 mg oral tablet 1 tab(s) orally once a [id number] Reviewed and Held aspirin 81 mg oral tablet, chewable 1 tab(s) orally once a [id number] Reviewed and Held atorvastatin 40 mg oral tablet 1 tab(s) orally once (at bedtime)07-Apr-2023 Reviewed and Held Benicar HCT 40 mg-25 mg oral tablet 1 tab(s) orally once a day 07-Apr-2023 NoLongerTaking citalopram 40 mg oral tablet 1 tab(s) orally once a [id number] Reviewed and Held clopidogrel 75 mg oral tablet 1 tab(s) orally once a [id number] Reviewed and Held dicyclomine 20 mg oral tablet 1 tab(s) orally 4 times a [id number] Reviewed and Held docusate sodium 100 mg oral capsule 1 cap(s) orally 2 times a day, As Needed for constipation 07-Apr-2023 NoLongerTaking fenofibrate 145 mg oral tablet 1 tab(s) orally once a [id number] Reviewed and Held gabapentin 400 mg oral tablet 1 dose(s) orally 3 times a day 07-Apr-2023 NoLongerTaking levETIRAcetam 500 mg oral tablet 1 tab(s) orally 2 times a day 07-Apr-2023 NoLongerTaking lisinopril 20 mg oral tablet 1 tab(s) orally once a [id number] Reviewed and Held magnesium oxide 400 mg (241.3 mg elemental magnesium) oral tablet 1 tab(s) orally once a day 07-Apr-2023 NoLongerTaking meloxicam 15 mg oral tablet 1 tab(s) orally once a [id number] Reviewed and Held metoprolol succinate 25 mg oral tablet, extended release 1 tab(s) orally once a [id number] Reviewed and Held polyethylene glycol 3350 oral powder for reconstitution 17 gram(s) orally once a day, As needed, constipation 07-Apr-2023 NoLongerTaking prochlorperazine 10 mg oral tablet 1 tab(s) orally 3 times a [id number] Reviewed and Held promethazine 25 mg oral tablet 1 tab(s) orally every [id number] Reviewed and Held promethazine 25 mg rectal suppository 1 suppository(ies) rectal 2 times a day, As [id number] Reviewed and Held Protonix 40 mg oral delayed release tablet 1 tab(s) orally 2 times a day 07-Apr-2023 Reviewed and Held Reglan 10 mg oral tablet 1 tab(s) orally 4 times a day (before meals and at bedtime), As Needed for nausea 07-Apr-2023 NoLongerTaking sucralfate 1 g oral tablet 1 tab(s) orally 4 times a day (before meals and at bedtime)07-Apr-2023 Reviewed and Held traZODone 100 milligram(s) orally once a day (at bedtime)07-Apr-2023 Reviewed and Held traZODone 75 milligram(s) orally once a day (at bedtime) 07-Apr-2023 Discontinued; Copy / Discontinue Zofran 4 mg oral tablet 1 tab(s) orally every 8 hours, As Needed 07-Apr-2023 NoLongerTaking Additional Current Orders Lactated Ringers Infusion IV Bag Volume = 1,000 mL Run at: 100 mL/hr IntraVenous Pantoprazole Injectable (PROTONIX)DOSE = 40 mg IntraVenous Push Every 12 Hours Normal [facility] Patient Profile - Adult v2on 04-07-2023 Patient Profile - Adult v2 Profile: Initial Info: How to be AddressedDaniel Spoken Language PreferredEnglish Stated Reason for Admissionvomiting and nausea Wants Family/Rep Notified of Admissionno Notify PCPdo not notify PCP Informed of Patient Visiting Rightsyes Arrived Fromhospital Patient Belongingsnone Medications Brought to Hospitalno General Health: Weight in kg81.5 kilogram(s)(1) Weight in bou307.6 pound(s) Weight Methodactual (measured) (1) Scale Typestanding (1) Height in cm180.1 centimeter(s) Height in feet5 feet Height in .94 inch(es) Height Methodstated BMI (kg/m2)25.126 square meter RSP Based Care: How would you like to participate in your carebe informed What is the number one concern for you during this hospitalizationgetting better What is the most important thing we can do to support you during this hospitalizationbe informed on plan of care Is there anything we need to know to best care for youno Substance: Smoking Statuslight user (uses <10 cig/day, OR <0.5 ppd, OR 1 can/pouch loose leaf tobacco per week, OR <0.5 vape pods per day) Tobacco Cessation Education (provide if tobacco use within the last 12 mos)yes Health Mgmt: Symptoms/Conditions Managed at Homegastrointestinal Gastrointestinal Managementnot managed Relationship/Environ: Resource/Environmental Concernsnone Primary Source of Support/Comfortspouse Lives Withdomestic partner Living Arrangementshouse Services Anticipated at Transitionnone Anticipated Transition Tohome Significant IndicatorsComplete Information Review: Allergies, Home Meds and Significant Events have been Reviewed and Verified with Patient/Familyyes ALLERGY, INTOLERANCE, ADVERSE EVENT: Allergies: vancomycin: Drug, Rash, Active penicillin: Drug, Unknown, Active Macrobid: Drug, Unknown, Active morphine: Drug, Unknown, Active Electronic Signatures: Sol Montoya (CARIN) (Signed 07-Apr-2023 02:53) Authored: Initial Info, General Health, RSP Based Care, Substance, Health Mgmt, Relationship/Environ, Additional Information Last Updated: 07-Apr-2023 02:53 by Sol Montoya (CARIN) References: 1. Data Referenced From 1. Vital Signs 07-Apr-2023 02:35 Normal [facility] RENAL FUNCTION PANELon 04-07 Anion gap [Moles/Vol] 14 mmol/L Normal 10 - 20 [facility] Comment on above: Performed By: #### R ENAL #### [facility] [address] [place] [address] Calcium [Mass/Vol] 9.1 mg/dL Normal 8.6 - 10.6 [facility] Comment on above: Performed By: #### R ENAL #### [facility] [address] [place] [address] Chloride [Moles/Vol] 112 mmol/L High 98 - 107 [facility] Comment on above: Performed By: #### R ENAL #### [facility] [address] [place] [address] Creatinine [Mass/Vol] 1.07 mg/dL Normal 0.50 - 1.30 [facility] Comment on above: Performed By: #### R ENAL #### [facility] [address] [place] [address] GFR/1.73 sq M.predicted among non-blacks MDRD (S/P/Bld) [Vol rate/Area] 77 mL/min/{1.73_m2} Normal >90 [facility] Comment on above: Result Comment: CALC ULATIONS OF ESTIMATED GFR ARE PERFORMED USING THE 2020 CKD-EPI STUDY REFIT EQUATION WITHOUT THE RACE VARIABLE FOR THE IDMS-TRACEABLE CREATININE METHODS. https://jasn.asnjournals.org/content//ASN.555 6143071 Performed By: #### R ENAL #### [facility] [address] [place] [address] Glucose [Mass/Vol] 83 mg/dL Normal 74 - 99 [facility] Comment on above: Performed By: #### R ENAL #### [facility] [address] [place] [address] HCO3 (Bld) [Moles/Vol] 24 mmol/L Normal 21 - 32 [facility] Comment on above: Performed By: #### R ENAL #### [facility] [address] [place] [address] Phosphate [Mass/Vol] 3.3 mg/dL Normal 2.5 - 4.9 [facility] Comment on above: Result Comment: The performance characteristics of phosphorus testing in heparinized plasma have been validated by the individual laboratory site where testing is performed. Testing on heparinized plasma is not approved by the FDA; however, such approval is not necessary. MILD HEMOLYSIS DETECTED. The result may be falsely elevated due to hemolysis or other interferents. Clinical correlation is recommended. Repeat testing may be considered. Performed By: #### R ENAL #### [facility] [address] [place] [address] Potassium [Moles/Vol] 3.9 mmol/L Normal 3.5 - 5.3 [facility] Comment on above: Result Comment: MILD HEMOLYSIS DETECTED. The result may be falsely elevated due to hemolysis or other interferents. Clinical correlation is recommended. Repeat testing may be considered. Performed By: #### R ENAL #### [facility] [address] [place] [address] Sodium [Moles/Vol] 146 mmol/L High 136 - 145 [facility] Comment on above: Performed By: #### R ENAL #### [facility] [address] [place] [address] Urea nitrogen [Mass/Vol] 20 mg/dL Normal 6 - 23 [facility] Comment on above: Performed By: #### R ENAL #### [facility] [address] [place] [address] TH CHEST 1 VIEWon 04-07-2023 CHEST 1 VIEW Patient Name: TRUONG ROSARIO STUDY: CHEST 1 VIEW; 04/07/2023 9:46 am INDICATION: Follow UP CXR . COMPARISON: Chest radiograph dated 04/07/2023, 2:[address] 04/06/2023 ACCESSION NUMBER(S): [id number] ORDERING CLINICIAN: LUCA TORRES FINDINGS: AP radiograph of the chest CARDIOMEDIASTINAL SILHOUETTE: The cardiomediastinal silhouette is stable in size and configuration. Aortic knob calcifications are seen.Coronary artery calcifications and stents are better seen on comparative CT scan. Trace pneumomediastinum seen on prior CT scan could not be confirmed on present plain radiograph. LUNGS: No focal consolidation, pleural effusion, or pneumothorax. ABDOMEN: No remarkable upper abdominal findings. BONES: No acute osseous abnormality. IMPRESSION: 1. No evidence of acute cardiopulmonary process. Of note, trace pneumomediastinum seen on CT scan from yesterday, could not be confirmed on present plain radiograph. Electronically signed by: JURGEN MEDEL MD Normal [facility] TH CHEST 1 VIEW Patient Name: TRUONG ROSARIO STUDY: CHEST 1 VIEW; 04/07/2023 2:21 am INDICATION: New Admission, Concern for Esophageal Perforation . COMPARISON: Chest CT 04/06/2023 ACCESSION NUMBER(S): [id number] ORDERING CLINICIAN: LUCA TORRES FINDINGS: PA radiograph of the chest, including dual energy subtraction images, are available for interpretation. CARDIOMEDIASTINAL SILHOUETTE: Cardiac silhouette is normal in size. Coronary artery calcifications and stents are better seen on comparative CT scan. Trace pneumomediastinum seen on prior CT scan could not be confirmed on present plain radiograph. LUNGS: No focal consolidation, pleural effusion, or pneumothorax. ABDOMEN: No remarkable upper abdominal findings. BONES: No acute osseous abnormality. IMPRESSION: No radiographic evidence of acute cardiopulmonary process. Of note, trace pneumomediastinum seen on prior CT scan could not be confirmed on present plain radiograph. I personally reviewed the images/study and I agree with the findings as stated. Electronically signed by: JURGEN MEDEL MD Normal [facility] TYPE + SCREENon 04-07-2023 ABO TYPE O Normal [facility] Comment on above: Performed By: #### T +S #### [facility] [address] [place] [address] RH TYPE Positive Normal [facility] Comment on above: Performed By: #### T +S #### [facility] [address] [place] [address] .Auto Diffon 04-06-2023 Basophil, Absolute 0.0 10 3/mcL Normal 0.0-0.2 [facility] ([place]) Comment on above: Performed By: #### G FR, MG, LIP, MDW, CBC, CMP, MORPH, DIFF #### [address] [address] Basophils/100 WBC (Bld) 0.1 % Normal 0.0-2.5 A [facility] ([place]) Comment on above: Performed By: #### G FR, MG, LIP, MDW, CBC, CMP, MORPH, DIFF #### [address] [address] Eosinophil, Absolute 0.0 10 3/mcL Normal 0.0-0.4 [facility] ([place]) Comment on above: Performed By: #### G FR, MG, LIP, MDW, CBC, CMP, MORPH, DIFF #### [address] [address] Eosinophils/100 WBC (Bld) 0.0 % Normal 0.0-7.0 [facility] ([place]) Comment on above: Performed By: #### G FR, MG, LIP, MDW, CBC, CMP, MORPH, DIFF #### [address] [address] Lymphocyte, Absolute 1.0 10 3/mcL Normal 0.8-3.9 [facility] ([place]) Comment on above: Performed By: #### G FR, MG, LIP, MDW, CBC, CMP, MORPH, DIFF #### [address] [address] Lymphocytes/100 WBC (Bld) 4.3 % Low 10.0-50.0 [facility] ([place]) Comment on above: Performed By: #### G FR, MG, LIP, MDW, CBC, CMP, MORPH, DIFF #### [address] [address] Monocyte, Absolute 1.7 10 3/mcL High 0.2-1.0 [facility] ([place]) Comment on above: Performed By: #### G FR, MG, LIP, MDW, CBC, CMP, MORPH, DIFF #### [address] [address] Monocytes/100 WBC (Bld) 7.7 % Normal 1.7-13.0 A [facility] ([place]) Comment on above: Performed By: #### G FR, MG, LIP, MDW, CBC, CMP, MORPH, DIFF #### [address] [address] Neutrophils/100 WBC (Bld) 87.9 % High 37.0-80.0 [facility] ([place]) Comment on above: Performed By: #### G FR, MG, LIP, MDW, CBC, CMP, MORPH, DIFF #### [address] [address] .GFRon 04-06-2023 GFR Non- 33 ml/min/1.73sqm Normal [facility] ([place]) Comment on above: Result Comment: GFR Population mean for , Non- Americans Ages 20-29 = 116 mL/min/1.73 sq.m. Ages 30-39 = 107 mL/min/1.73 sq.m. Ages 40-49 = 99 mL/min/1.73 sq.m. Ages 50-59 = 93 mL/min/1.73 sq.m. Ages 60-69 = 85 mL/min/1.73 sq.m. Ages 70+ = 75 mL/min/1.73 sq.m. Chronic Kidney Disease: Less than 60 mL/min/1.73 square meters End Stage Renal Disease: Less than 15 mL/min/1.73 square meters Performed By: #### G FR, MG, LIP, MDW, CBC, CMP, MORPH, DIFF #### [address] [address] GFR 40 ml/min/1.73sqm Normal [facility] ([place]) Comment on above: Result Comment: GFR Population mean for , Non- Americans Ages 20-29 = 116 mL/min/1.73 sq.m. Ages 30-39 = 107 mL/min/1.73 sq.m. Ages 40-49 = 99 mL/min/1.73 sq.m. Ages 50-59 = 93 mL/min/1.73 sq.m. Ages 60-69 = 85 mL/min/1.73 sq.m. Ages 70+ = 75 mL/min/1.73 sq.m. Chronic Kidney Disease: Less than 60 mL/min/1.73 square meters End Stage Renal Disease: Less than 15 mL/min/1.73 square meters Performed By: #### G FR, MG, LIP, MDW, CBC, CMP, MORPH, DIFF #### [place] [address] .MDWon 04-06-2023 Monocyte Distribution Width 16.89 Normal 0.00-20.00 [facility] ([place]) Comment on above: Result Comment: For ED adult patients suspected of sepsis, MDW<=20.0 does not rule out sepsis or risk of sepsis Performed By: #### G FR, MG, LIP, MDW, CBC, CMP, MORPH, DIFF #### [place] [address] Monocyte Distribution Width 18.24 Normal 0.00-20.00 [facility] ([place]) Comment on above: Result Comment: For ED adult patients suspected of sepsis, MDW<=20.0 does not rule out sepsis or risk of sepsis Performed By: #### G FR, MG, LIP, MDW, CBC, CMP, MORPH, DIFF #### [place] [address] .Manual Diffon 04-06-2023 Basophil %, Manual 0.0 % Normal 0.0-2.5 [facility] ([place]) Comment on above: Performed By: #### G FR, MG, LIP, MDW, CBC, CMP, MORPH, DIFF #### [place] [address] Basophil, Abs Manual 0.0 10 3/mcL Normal 0.0-0.2 [facility] ([place]) Comment on above: Performed By: #### G FR, MG, LIP, MDW, CBC, CMP, MORPH, DIFF #### [place] [address] Eosinophil %, Manual 0.0 % Normal 0.0-7.0 [facility] ([place]) Comment on above: Performed By: #### G FR, MG, LIP, MDW, CBC, CMP, MORPH, DIFF #### [place] [address] Eosinophil, Abs Manual 0.0 10 3/mcL Normal 0.0-0.4 [facility] ([place]) Comment on above: Performed By: #### G FR, MG, LIP, MDW, CBC, CMP, MORPH, DIFF #### [address] [address] Lymphocyte %, Manual 6.0 % Low 10.0-50.0 [facility] ([place]) Comment on above: Performed By: #### G FR, MG, LIP, MDW, CBC, CMP, MORPH, DIFF #### [address] [address] Lymphocyte, Abs Manual 1.3 10 3/mcL Normal 0.8-3.9 [facility] ([place]) Comment on above: Performed By: #### G FR, MG, LIP, MDW, CBC, CMP, MORPH, DIFF #### [address] [address] Monocyte %, Manual 3.0 % Normal 1.7-13.0 [facility] ([place]) Comment on above: Performed By: #### G FR, MG, LIP, MDW, CBC, CMP, MORPH, DIFF #### [address] [address] Monocyte, Abs Manual 0.7 10 3/mcL Normal 0.2-1.0 [facility] ([place]) Comment on above: Performed By: #### G FR, MG, LIP, MDW, CBC, CMP, MORPH, DIFF #### [address] [address] Neutrophil %, Manual 91.0 % High 37.0-80.0 [facility] ([place]) Comment on above: Performed By: #### G FR, MG, LIP, MDW, CBC, CMP, MORPH, DIFF #### [address] [address] Neutrophil, Abs Manual 20.5 10 3/mcL High 2.9-6.2 [facility] ([place]) Comment on above: Performed By: #### G FR, MG, LIP, MDW, CBC, CMP, MORPH, DIFF #### [address] [address] Nucleated RBC 0.0 /100 WBC Normal [facility] ([place]) Comment on above: Performed By: #### G FR, MG, LIP, MDW, CBC, CMP, MORPH, DIFF #### [address] [address] Basophil %, Manual 0.0 % Normal 0.0-2.5 [facility] ([place]) Comment on above: Performed By: #### G FR, MG, LIP, MDW, CBC, CMP, MORPH, DIFF #### [address] [address] Basophil, Abs Manual 0.0 10 3/mcL Normal 0.0-0.2 [facility] ([place]) Comment on above: Performed By: #### G FR, MG, LIP, MDW, CBC, CMP, MORPH, DIFF #### [address] [address] Eosinophil %, Manual 0.0 % Normal 0.0-7.0 [facility] ([place]) Comment on above: Performed By: #### G FR, MG, LIP, MDW, CBC, CMP, MORPH, DIFF #### [address] [address] Eosinophil, Abs Manual 0.0 10 3/mcL Normal 0.0-0.4 [facility] ([place]) Comment on above: Performed By: #### G FR, MG, LIP, MDW, CBC, CMP, MORPH, DIFF #### [address] [address] Lymphocyte %, Manual 7.0 % Low 10.0-50.0 [facility] ([place]) Comment on above: Performed By: #### G FR, MG, LIP, MDW, CBC, CMP, MORPH, DIFF #### [address] [address] Lymphocyte, Abs Manual 2.3 10 3/mcL Normal 0.8-3.9 [facility] ([place]) Comment on above: Performed By: #### G FR, MG, LIP, MDW, CBC, CMP, MORPH, DIFF #### [address] [address] Monocyte %, Manual 5.0 % Normal 1.7-13.0 [facility] ([place]) Comment on above: Performed By: #### G FR, MG, LIP, MDW, CBC, CMP, MORPH, DIFF #### [address] [address] Monocyte, Abs Manual 1.7 10 3/mcL High 0.2-1.0 [facility] ([place]) Comment on above: Performed By: #### G FR, MG, LIP, MDW, CBC, CMP, MORPH, DIFF #### [address] [address] Neutrophil %, Manual 88.0 % High 37.0-80.0 [facility] ([place]) Comment on above: Performed By: #### G FR, MG, LIP, MDW, CBC, CMP, MORPH, DIFF #### [address] [address] Neutrophil, Abs Manual 29.4 10 3/mcL High 2.9-6.2 [facility] ([place]) Comment on above: Performed By: #### G FR, MG, LIP, MDW, CBC, CMP, MORPH, DIFF #### [address] [address] Nucleated RBC 0.0 /100 WBC Normal [facility] ([place]) Comment on above: Performed By: #### G FR, MG, LIP, MDW, CBC, CMP, MORPH, DIFF #### [address] [address] .Morphon 04-06-2023 Platelet Estimate Normal Normal [facility] ([place]) Comment on above: Performed By: #### G FR, MG, LIP, MDW, CBC, CMP, MORPH, DIFF #### [address] [address] Platelet Estimate Normal Normal [facility] ([place]) Comment on above: Performed By: #### G FR, MG, LIP, MDW, CBC, CMP, MORPH, DIFF #### [address] [address] .NEUABSon 04-06-2023 Neutrophil, Absolute 19.8 10 3/mcL High 2.9-6.2 A [facility] ([place]) Comment on above: Performed By: #### G FR, MG, LIP, MDW, CBC, CMP, MORPH, DIFF #### [place] [address] .Urinalysis Microscopic (AO) on 04-06-2023 UA Fine Granular Casts 0-5 Abnormal [facility] ([place]) Comment on above: Performed By: #### G FR, MG, LIP, MDW, CBC, CMP, MORPH, DIFF #### [place] [address] UA Hyal Cast 0-5 Abnormal [facility] ([place]) Comment on above: Performed By: #### G FR, MG, LIP, MDW, CBC, CMP, MORPH, DIFF #### [place] [address] UA RBC 0-5 Abnormal None Seen [facility] ([place]) Comment on above: Performed By: #### G FR, MG, LIP, MDW, CBC, CMP, MORPH, DIFF #### [place] [address] UA Squam Epithelial 0-5 Abnormal None Seen [facility] ([place]) Comment on above: Performed By: #### G FR, MG, LIP, MDW, CBC, CMP, MORPH, DIFF #### [place] [address] UA WBC 5-10 Abnormal None Seen [facility] ([place]) Comment on above: Performed By: #### G FR, MG, LIP, MDW, CBC, CMP, MORPH, DIFF #### [place] [address] CBCon 04-06-2023 Erythrocyte distribution width (RBC) [Ratio] 18.0 % High 11.5-14.5 [facility] ([place]) Comment on above: Performed By: #### G FR, MG, LIP, MDW, CBC, CMP, MORPH, DIFF #### [address] [address] Hematocrit (Bld) [Volume fraction] 34.4 % Low 42.0-52.0 [facility] ([place]) Comment on above: Performed By: #### G FR, MG, LIP, MDW, CBC, CMP, MORPH, DIFF #### [place] [address] Hgb 11.4 G/dL Low 14.0-18.0 [facility] ([place]) Comment on above: Performed By: #### G FR, MG, LIP, MDW, CBC, CMP, MORPH, DIFF #### [place] [address] MCH (RBC) [Entitic mass] 27.1 pg Normal 27.0-31.2 [facility] ([place]) Comment on above: Performed By: #### G FR, MG, LIP, MDW, CBC, CMP, MORPH, DIFF #### [place] [address] MCHC 33.2 G/dL Normal 31.8-35.4 [facility] ([place]) Comment on above: Performed By: #### G FR, MG, LIP, MDW, CBC, CMP, MORPH, DIFF #### [place] [address] MCV (RBC) [Entitic vol] 81.6 fL Normal 80.0-94.0 [facility] ([place]) Comment on above: Performed By: #### G FR, MG, LIP, MDW, CBC, CMP, MORPH, DIFF #### [place] [address] Platelet 351 10 3/mcL Normal 130-400 [facility] ([place]) Comment on above: Performed By: #### G FR, MG, LIP, MDW, CBC, CMP, MORPH, DIFF #### [place] [address] Platelet mean volume (Bld) [Entitic vol] 8.0 fL Normal 7.4-10.4 [facility] ([place]) Comment on above: Performed By: #### G FR, MG, LIP, MDW, CBC, CMP, MORPH, DIFF #### [address] [address] RBC 4.21 10 6/mcL Normal 4.04-6.13 [facility] ([place]) Comment on above: Performed By: #### G FR, MG, LIP, MDW, CBC, CMP, MORPH, DIFF #### [address] [address] WBC 22.5 10 3/mcL High 4.6-10.8 [facility] ([place]) Comment on above: Performed By: #### G FR, MG, LIP, MDW, CBC, CMP, MORPH, DIFF #### [address] [address] Erythrocyte distribution width (RBC) [Ratio] 18.1 % High 11.5-14.5 [facility] ([place]) Comment on above: Performed By: #### G FR, MG, LIP, MDW, CBC, CMP, MORPH, DIFF #### [address] [address] Hematocrit (Bld) [Volume fraction] 40.7 % Low 42.0-52.0 [facility] ([place]) Comment on above: Performed By: #### G FR, MG, LIP, MDW, CBC, CMP, MORPH, DIFF #### [place] [address] Hgb 13.5 G/dL Low 14.0-18.0 [facility] ([place]) Comment on above: Performed By: #### G FR, MG, LIP, MDW, CBC, CMP, MORPH, DIFF #### [place] [id number] MCH (RBC) [Entitic mass] 26.9 pg Low 27.0-31.2 [facility] ([place] Comment on above: Performed By: #### G FR, MG, LIP, MDW, CBC, CMP, MORPH, DIFF #### [address] [address] MCHC 33.1 G/dL Normal 31.8-35.4 [facility] ([place]) Comment on above: Performed By: #### G FR, MG, LIP, MDW, CBC, CMP, MORPH, DIFF #### [address] [address] MCV (RBC) [Entitic vol] 81.4 fL Normal 80.0-94.0 A [facility] ([place]) Comment on above: Performed By: #### G FR, MG, LIP, MDW, CBC, CMP, MORPH, DIFF #### [address] [address] Platelet 467 10 3/mcL High 130-400 [facility] ([place]) Comment on above: Performed By: #### G FR, MG, LIP, MDW, CBC, CMP, MORPH, DIFF #### [address] [address] Platelet mean volume (Bld) [Entitic vol] 8.1 fL Normal 7.4-10.4 [facility] ([place]) Comment on above: Performed By: #### G FR, MG, LIP, MDW, CBC, CMP, MORPH, DIFF #### [address] [address] RBC 5.00 10 6/mcL Normal 4.04-6.13 [facility] ([place]) Comment on above: Performed By: #### G FR, MG, LIP, MDW, CBC, CMP, MORPH, DIFF #### [address] [address] WBC 33.4 10 3/mcL High 4.6-10.8 [facility] ([place]) Comment on above: Performed By: #### G FR, MG, LIP, MDW, CBC, CMP, MORPH, DIFF #### [address] [address] CMPon 04-06-2023 Albumin Level 4.5 G/dL Normal 3.4-4.8 [facility] ([place]) Comment on above: Performed By: #### G FR, MG, LIP, MDW, CBC, CMP, MORPH, DIFF #### [address] [address] Albumin/Globulin [Mass ratio] 1.2 {ratio} Normal 1.1-2.5 [facility] ([place]) Comment on above: Performed By: #### G FR, MG, LIP, MDW, CBC, CMP, MORPH, DIFF #### [address] [address] ALP [Catalytic activity/Vol] 76 U/L Normal 40-135 [facility] ([place]) Comment on above: Performed By: #### G FR, MG, LIP, MDW, CBC, CMP, MORPH, DIFF #### [address] [address] ALT [Catalytic activity/Vol] 15 U/L Low 16-63 [facility] ([place]) Comment on above: Performed By: #### G FR, MG, LIP, MDW, CBC, CMP, MORPH, DIFF #### [address] [address] AST [Catalytic activity/Vol] 24 U/L Normal 10-40 [facility] ([place]) Comment on above: Performed By: #### G FR, MG, LIP, MDW, CBC, CMP, MORPH, DIFF #### [address] [address] Bili Total 0.5 mg/dL Normal 0.2-1.0 [facility] ([place]) Comment on above: Result Comment: Use of this assay is not recommended for patients undergoing treatment with eltrombopag due to the potential for falsely elevated results. Performed By: #### G FR, MG, LIP, MDW, CBC, CMP, MORPH, DIFF #### [address] [address] BUN/Creatinine Ratio 7 ratio Normal 7-27 [facility] ([place]) Comment on above: Performed By: #### G FR, MG, LIP, MDW, CBC, CMP, MORPH, DIFF #### [address] [address] Calcium [Mass/Vol] 11.1 mg/dL High 8.4-10.2 [facility] ([place]) Comment on above: Performed By: #### G FR, MG, LIP, MDW, CBC, CMP, MORPH, DIFF #### [address] [address] Chloride [Moles/Vol] 105 mmol/L Normal 98-107 [facility] ([place]) Comment on above: Performed By: #### G FR, MG, LIP, MDW, CBC, CMP, MORPH, DIFF #### [address] [address] CO2 [Moles/Vol] 21 mmol/L Low 23-31 [facility] ([place]) Comment on above: Performed By: #### G FR, MG, LIP, MDW, CBC, CMP, MORPH, DIFF #### [address] [address] Creatinine [Mass/Vol] 2.06 mg/dL High 0.70-1.30 [facility] ([place]) Comment on above: Performed By: #### G FR, MG, LIP, MDW, CBC, CMP, MORPH, DIFF #### [address] [address] Electrolyte Balance 20.0 mEq/L High 4.0-15.0 [facility] ([place]) Comment on above: Performed By: #### G FR, MG, LIP, MDW, CBC, CMP, MORPH, DIFF #### [address] [address] Globulin 3.6 G/dL Normal [facility] ([place]) Comment on above: Performed By: #### G FR, MG, LIP, MDW, CBC, CMP, MORPH, DIFF #### [address] [address] Glucose [Mass/Vol] 151 mg/dL High 80-115 [facility] ([place]) Comment on above: Performed By: #### G FR, MG, LIP, MDW, CBC, CMP, MORPH, DIFF #### [address] [address] Potassium [Moles/Vol] 3.8 mmol/L Normal 3.5-5.1 [facility] ([place]) Comment on above: Performed By: #### G FR, MG, LIP, MDW, CBC, CMP, MORPH, DIFF #### [address] [address] Sodium [Moles/Vol] 146 mmol/L High 136-145 [facility] ([place]) Comment on above: Performed By: #### G FR, MG, LIP, MDW, CBC, CMP, MORPH, DIFF #### [address] [address] Total Protein 8.1 G/dL Normal 6.4-8.2 [facility] ([place]) Comment on above: Performed By: #### G FR, MG, LIP, MDW, CBC, CMP, MORPH, DIFF #### [address] [address] Urea nitrogen [Mass/Vol] 15 mg/dL Normal 7-18 [facility] ([place]) Comment on above: Performed By: #### G FR, MG, LIP, MDW, CBC, CMP, MORPH, DIFF #### [address] [address] [address] THORAX W/O CONTRASTon CT THORAX W/O CONTRAST ORIGINAL EXAMINATION: CT OF THE CHEST WITHOUT CONTRAST04/06/2023 8:28 am TECHNIQUE: CT of the chest was performed without the administration of intravenous contrast. Multiplanar reformatted images are provided for review. Automated exposure control, iterative reconstruction, and/or weight based adjustment of the mA/kV was utilized to reduce the radiation dose to as low as reasonably achievable. COMPARISON: Same day CT abdomen/pelvis HISTORY: ORDERING SYSTEM PROVIDED HISTORY: Reason for Exam: Air in mediastinum FINDINGS: The heart size is within normal limits. There is no pericardial thickening or effusion. Multi-vessel coronary artery stents and/or calcifications. Nonaneurysmal, atherosclerotic thoracic aorta. Locules of air adjacent to a small to moderate hiatal hernia within the lower mediastinum, beginning just inferior to the leonard and extending a few cm inferiorly. The visualized trachea and mainstem bronchi are patent. No pleural effusion, pneumothorax, or focal consolidation. Scattered areas of pleural and parenchymal scarring. No lymphadenopathy within the limits of a noncontrast study. No acute osseous abnormality. No aggressive osseous lesions. Varying degrees of multifocal degenerative change. The abdomen is dictated separately. IMPRESSION: Locules of air adjacent to the distal esophagus/hiatal hernia within the lower mediastinum. 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 Critical results were called by Dr. Wai Willams to Dr. Marcus On 04/06/2023 at 08:40. I have reviewed this report and agree with the resident findings and interpretation. Interpreted by: Mainor Sandoval MD Preliminary Report By: Wai Willams Electronically signed By Mainor Sandoval MD Dictated Date: 04/06/2023 8:31:35 AM Prelim Date: 04/06/2023 8:45:40 AM Sign Date: 04/06/2023 9:04:26 AM Ordering Provider: JAMEL MARCUS [facility] ([place]) LABORATORYOrdered By: SYSTEM SYSTEM on 04-06-2023 Basophils (Bld) [#/Vol] 0.1 103/mcL Invalid Interpretation Code 0.0 - 0.3 10^3/mcL Workflow SS Basophils/100 WBC (Bld) 0.7 % Invalid Interpretation Code 0.0 - 2.5 % AH Workflow SS Calcium [Mass/Vol] 8.8 mg/dL Invalid Interpretation Code 8.7 - 10.4 mg/dL ADM SS Chloride [Moles/Vol] 114 mmol/L Invalid Interpretation Code 98 - 110 mEq/L ADM SS CO2 [Moles/Vol] 23 mmol/L Invalid Interpretation Code 22 - 32 mEq/L ADM SS Creatinine [Mass/Vol] 1.07 mg/dL Invalid Interpretation Code 0.60 - 1.40 mg/dL AH ADM SS Electrolyte Balance 12.0 mEq/L Invalid Interpretation Code 4.0 - 15.0 mEq/L ADM SS Eosinophils (Bld) [#/Vol] 0.0 103/mcL Invalid Interpretation Code 0.0 - 0.7 10^3/mcL AH Workflow SS Eosinophils/100 WBC (Bld) 0.1 % Invalid Interpretation Code 0.0 - 6.0 % AH Workflow SS Erythrocyte distribution width (RBC) [Ratio] 18.0 % Invalid Interpretation Code 11.5 - 15.5 % AH Workflow SS GFR/1.73 sq M.predicted among blacks MDRD (S/P/Bld) [Vol rate/Area] ml/min/1.73sqm Invalid Interpretation Code Chemistry S GFR/1.73 sq M.predicted among non-blacks MDRD (S/P/Bld) [Vol rate/Area] ml/min/1.73sqm Invalid Interpretation Code Chemistry S Glucose [Mass/Vol] 88 mg/dL Invalid Interpretation Code 82 - 115 mg/dL ADM SS Hematocrit (Bld) [Volume fraction] 31.1 % Invalid Interpretation Code 40.0 - 52.0 % Workflow SS Hemoglobin (Bld) [Mass/Vol] 10.2 G/dL Invalid Interpretation Code 13.0 - 17.5 G/dL AH Workflow SS Lymphocytes (Bld) [#/Vol] 1.5 103/mcL Invalid Interpretation Code 0.9 - 4.3 10^3/mcL AH Workflow SS Lymphocytes/100 WBC (Bld) 10.6 % Invalid Interpretation Code 20.0 - 40.0 % AH Workflow SS MCH (RBC) [Entitic mass] 27.4 pg Invalid Interpretation Code 27.0 - 33.0 pg AH Workflow SS MCHC 32.9 G/dL Invalid Interpretation Code 32.0 - 36.0 G/dL AH Workflow SS MCV (RBC) [Entitic vol] 83.2 fL Invalid Interpretation Code 81.0 - 100.0 fL Workflow SS Monocytes (Bld) [#/Vol] 1.3 103/mcL Invalid Interpretation Code 0.1 - 1.4 10^3/mcL AH Workflow SS Monocytes/100 WBC (Bld) 9.4 % Invalid Interpretation Code 2.0 - 13.0 % AH Workflow SS Neutrophils (Bld) [#/Vol] 10.9 103/mcL Invalid Interpretation Code 2.3 - 8.1 10^3/mcL AH Workflow SS Neutrophils/100 WBC (Bld) 79.2 % Invalid Interpretation Code 50.0 - 75.0 % Workflow SS Platelet mean volume (Bld) [Entitic vol] 8.1 fL Invalid Interpretation Code 6.4 - 10.5 fL AH Workflow SS Platelets (Bld) [#/Vol] 304 103/mcL Invalid Interpretation Code 150 - 450 10^3/mcL AH Workflow SS Potassium [Moles/Vol] 3.6 mmol/L Invalid Interpretation Code 3.5 - 5.0 mEq/L AH ADM SS Comment on above: Result Comment: Spec imen slightly hemolyzed. RBC (Bld) [#/Vol] 3.74 106/mcL Invalid Interpretation Code 4.50 - 6.00 10^6/mcL AH Workflow SS Sodium [Moles/Vol] 149 mmol/L Invalid Interpretation Code 136 - 145 mEq/L ADM SS Urea nitrogen [Mass/Vol] 20.0 mg/dL Invalid Interpretation Code 8.0 - 22.0 mg/dL AH ADM SS Urea nitrogen/Creatinine [Mass ratio] 18.7 ratio Invalid Interpretation Code 10.0 - 22.0 ratio AH ADM SS WBC (Bld) [#/Vol] 13.8 103/mcL Invalid Interpretation Code 4.5 - 10.8 10^3/mcL AH Workflow SS Basophil %, Manual 0.0 1 Invalid Interpretation Code 0.0 - 2.5 % AO Workflow SS Basophil, Abs Manual 0.0 103/mcL Invalid Interpretation Code 0.0 - 0.2 10^3/mcL AO Workflow SS Basophil, Absolute 0.0 103/mcL Invalid Interpretation Code 0.0 - 0.2 10^3/mcL AO Workflow SS Basophils/100 WBC (Bld) 0.1 % Invalid Interpretation Code 0.0 - 2.5 % AO Workflow SS Eosinophil %, Manual 0.0 1 Invalid Interpretation Code 0.0 - 7.0 % AO Workflow SS Eosinophil, Absolute 0.0 103/mcL Invalid Interpretation Code 0.0 - 0.4 10^3/mcL AO Workflow SS Eosinophils (Bld) [#/Vol] 0.0 103/mcL Invalid Interpretation Code 0.0 - 0.4 10^3/mcL AO Workflow SS Eosinophils/100 WBC (Bld) 0.0 % Invalid Interpretation Code 0.0 - 7.0 % AO Workflow SS Erythrocyte distribution width (RBC) [Ratio] 18.0 % Invalid Interpretation Code 11.5 - 14.5 % AO Workflow SS Hematocrit (Bld) [Volume fraction] 34.4 % Invalid Interpretation Code 42.0 - 52.0 % AO Workflow SS Hemoglobin (Bld) [Mass/Vol] 11.4 G/dL Invalid Interpretation Code 14.0 - 18.0 G/dL AO Workflow SS Lactate [Moles/Vol] 1.5 mmol/L Invalid Interpretation Code 0.4 - 2.0 mmol/L AO ADM SS Lymphocyte %, Manual 6.0 1 Invalid Interpretation Code 10.0 - 50.0 % AO Workflow SS Lymphocyte, Abs Manual 1.3 103/mcL Invalid Interpretation Code 0.8 - 3.9 10^3/mcL AO Workflow SS Lymphocyte, Absolute 1.0 103/mcL Invalid Interpretation Code 0.8 - 3.9 10^3/mcL AO Workflow SS Lymphocytes/100 WBC (Bld) 4.3 % Invalid Interpretation Code 10.0 - 50.0 % AO Workflow SS Magnesium [Mass/Vol] 2.8 mg/dL Invalid Interpretation Code 1.8 - 2.4 mg/dL AO ADM SS MCH (RBC) [Entitic mass] 27.1 pg Invalid Interpretation Code 27.0 - 31.2 pg AO Workflow SS MCHC 33.2 G/dL Invalid Interpretation Code 31.8 - 35.4 G/dL AO Workflow SS MCV (RBC) [Entitic vol] 81.6 fL Invalid Interpretation Code 80.0 - 94.0 fL AO Workflow SS Monocyte %, Manual 3.0 1 Invalid Interpretation Code 1.7 - 13.0 % AO Workflow SS Monocyte distribution width Auto (Bld) [Entitic vol] 16.89 Invalid Interpretation Code 0.00 - 20.00 AO Workflow SS Comment on above: Result Comment: For ED adult patients suspected of sepsis, MDW<=20.0 does not rule out sepsis or risk of sepsis Monocyte, Abs Manual 0.7 103/mcL Invalid Interpretation Code 0.2 - 1.0 10^3/mcL AO Workflow SS Monocyte, Absolute 1.7 103/mcL Invalid Interpretation Code 0.2 - 1.0 10^3/mcL AO Workflow SS Monocytes/100 WBC (Bld) 7.7 % Invalid Interpretation Code 1.7 - 13.0 % AO Workflow SS Neutrophil %, Manual 91.0 1 Invalid Interpretation Code 37.0 - 80.0 % AO Workflow SS Neutrophil, Abs Manual 20.5 103/mcL Invalid Interpretation Code 2.9 - 6.2 10^3/mcL AO Workflow SS Neutrophil, Absolute 19.8 103/mcL Invalid Interpretation Code 2.9 - 6.2 10^3/mcL AO Workflow SS Neutrophils/100 WBC (Bld) 87.9 % Invalid Interpretation Code 37.0 - 80.0 % AO Workflow SS Nucleated RBC 0.0 /100 WBC Invalid Interpretation Code AO Workflow SS Platelet Estimate Normal *NA* (04/06/23 8:55 AM) Invalid Interpretation Code AO Workflow SS Platelet mean volume (Bld) [Entitic vol] 8.0 fL Invalid Interpretation Code 7.4 - 10.4 fL AO Workflow SS Platelets (Bld) [#/Vol] 351 103/mcL Invalid Interpretation Code 130 - 400 10^3/mcL AO Workflow SS RBC (Bld) [#/Vol] 4.21 106/mcL Invalid Interpretation Code 4.04 - 6.13 10^6/mcL AO Workflow SS WBC (Bld) [#/Vol] 22.5 103/mcL Invalid Interpretation Code 4.6 - 10.8 10^3/mcL AO Workflow SS Lactate [Moles/Vol] 2.0 mmol/L Invalid Interpretation Code 0.4 - 2.0 mmol/L AO ADM SS Albumin BCP dye [Mass/Vol] 4.5 G/dL Invalid Interpretation Code 3.4 - 4.8 G/dL AO ADM SS Albumin/Globulin [Mass ratio] 1.2 {ratio} Invalid Interpretation Code 1.1 - 2.5 ratio AO ADM SS ALP [Catalytic activity/Vol] 76 U/L Invalid Interpretation Code 40 - 135 U/L AO ADM SS ALT With P-5'-P [Catalytic activity/Vol] 15 U/L Invalid Interpretation Code 16 - 63 U/L AO ADM SS AST With P-5'-P [Catalytic activity/Vol] 24 U/L Invalid Interpretation Code 10 - 40 U/L AO ADM SS Basophil %, Manual 0.0 1 Invalid Interpretation Code 0.0 - 2.5 % AO Workflow SS Basophil, Abs Manual 0.0 103/mcL Invalid Interpretation Code 0.0 - 0.2 10^3/mcL AO Workflow SS Bilirubin [Mass/Vol] 0.5 mg/dL Invalid Interpretation Code 0.2 - 1.0 mg/dL AO ADM SS Calcium [Mass/Vol] 11.1 mg/dL Invalid Interpretation Code 8.4 - 10.2 mg/dL AO ADM SS Chloride [Moles/Vol] 105 mmol/L Invalid Interpretation Code 98 - 107 mmol/L AO ADM SS CO2 [Moles/Vol] 21 mmol/L Invalid Interpretation Code 23 - 31 mmol/L AO ADM SS Creatinine [Mass/Vol] 2.06 mg/dL Invalid Interpretation Code 0.70 - 1.30 mg/dL AO ADM SS Electrolyte Balance 20.0 mEq/L Invalid Interpretation Code 4.0 - 15.0 mEq/L AO ADM SS Eosinophil %, Manual 0.0 1 Invalid Interpretation Code 0.0 - 7.0 % AO Workflow SS Eosinophils (Bld) [#/Vol] 0.0 103/mcL Invalid Interpretation Code 0.0 - 0.4 10^3/mcL AO Workflow SS Erythrocyte distribution width (RBC) [Ratio] 18.1 % Invalid Interpretation Code 11.5 - 14.5 % AO Workflow SS GFR/1.73 sq M.predicted among blacks MDRD (S/P/Bld) [Vol rate/Area] 40 ml/min/1.73sqm Invalid Interpretation Code AO Chemistry S GFR/1.73 sq M.predicted among non-blacks MDRD (S/P/Bld) [Vol rate/Area] 33 ml/min/1.73sqm Invalid Interpretation Code AO Chemistry S Globulin 3.6 G/dL Invalid Interpretation Code AO ADM SS Glucose [Mass/Vol] 151 mg/dL Invalid Interpretation Code 80 - 115 mg/dL AO ADM SS Hematocrit (Bld) [Volume fraction] 40.7 % Invalid Interpretation Code 42.0 - 52.0 % AO Workflow SS Hemoglobin (Bld) [Mass/Vol] 13.5 G/dL Invalid Interpretation Code 14.0 - 18.0 G/dL AO Workflow SS Lipase [Catalytic activity/Vol] 25 U/L Invalid Interpretation Code 16 - 77 U/L AO ADM SS Lymphocyte %, Manual 7.0 1 Invalid Interpretation Code 10.0 - 50.0 % AO Workflow SS Lymphocyte, Abs Manual 2.3 103/mcL Invalid Interpretation Code 0.8 - 3.9 10^3/mcL AO Workflow SS Magnesium [Mass/Vol] 1.1 mg/dL Invalid Interpretation Code 1.8 - 2.4 mg/dL AO ADM SS MCH (RBC) [Entitic mass] 26.9 pg Invalid Interpretation Code 27.0 - 31.2 pg AO Workflow SS MCHC 33.1 G/dL Invalid Interpretation Code 31.8 - 35.4 G/dL AO Workflow SS MCV (RBC) [Entitic vol] 81.4 fL Invalid Interpretation Code 80.0 - 94.0 fL AO Workflow SS Monocyte %, Manual 5.0 1 Invalid Interpretation Code 1.7 - 13.0 % AO Workflow SS Monocyte distribution width Auto (Bld) [Entitic vol] 18.24 Invalid Interpretation Code 0.00 - 20.00 AO Workflow SS Comment on above: Result Comment: For ED adult patients suspected of sepsis, MDW<=20.0 does not rule out sepsis or risk of sepsis Monocyte, Abs Manual 1.7 103/mcL Invalid Interpretation Code 0.2 - 1.0 10^3/mcL AO Workflow SS Neutrophil %, Manual 88.0 1 Invalid Interpretation Code 37.0 - 80.0 % AO Workflow SS Neutrophil, Abs Manual 29.4 103/mcL Invalid Interpretation Code 2.9 - 6.2 10^3/mcL AO Workflow SS Nucleated RBC 0.0 /100 WBC Invalid Interpretation Code AO Workflow SS Platelet Estimate Normal *NA* (04/06/23 4:49 AM) Invalid Interpretation Code AO Workflow SS Platelet mean volume (Bld) [Entitic vol] 8.1 fL Invalid Interpretation Code 7.4 - 10.4 fL AO Workflow SS Platelets (Bld) [#/Vol] 467 103/mcL Invalid Interpretation Code 130 - 400 10^3/mcL AO Workflow SS Potassium [Moles/Vol] 3.8 mmol/L Invalid Interpretation Code 3.5 - 5.1 mmol/L AO ADM SS Protein [Mass/Vol] 8.1 G/dL Invalid Interpretation Code 6.4 - 8.2 G/dL AO ADM SS RBC (Bld) [#/Vol] 5.00 106/mcL Invalid Interpretation Code 4.04 - 6.13 10^6/mcL AO Workflow SS Sodium [Moles/Vol] 146 mmol/L Invalid Interpretation Code 136 - 145 mmol/L AO ADM SS Urea nitrogen [Mass/Vol] 15 mg/dL Invalid Interpretation Code 7 - 18 mg/dL AO ADM SS Urea nitrogen/Creatinine [Mass ratio] 7 ratio Invalid Interpretation Code 7 - 27 ratio AO ADM SS WBC (Bld) [#/Vol] 33.4 103/mcL Invalid Interpretation Code 4.6 - 10.8 10^3/mcL AO Workflow SS LABORATORYOrdered By: Mee Tubbs on 04-06-2023 Appearance (U) Slightly Cloudy *ABN* (04/06/23 8:55 AM) Invalid Interpretation Code Clear AO Auto Urine SS Bilirubin Ql (U) Small *ABN* (04/06/23 8:55 AM) Invalid Interpretation Code Negative AO Auto Urine SS Color (U) Dark yellow Invalid Interpretation Code AO Auto Urine SS Glucose Test strip (U) [Mass/Vol] Negative Invalid Interpretation Code Negativemg /dL AO Auto Urine SS Hemoglobin Auto test strip (U) [Mass/Vol] Small *ABN* (04/06/23 8:55 AM) Invalid Interpretation Code Negative AO Auto Urine SS Ketones Ql (U) Trace mg/dL Invalid Interpretation Code Negativemg /dL AO Auto Urine SS UA Fine Granular Casts 0-5 /LPF Invalid Interpretation Code AO Auto Urine SS UA Hyal Cast 0-5 /LPF Invalid Interpretation Code AO Auto Urine SS UA Leuk Est Negative (04/06/23 8:55 AM) Invalid Interpretation Code Negative AO Auto Urine SS UA Nitrite Negative (04/06/23 8:55 AM) Invalid Interpretation Code Negative AO Auto Urine SS UA pH 5.5 (04/06/23 8:55 AM) Invalid Interpretation Code 5.0 - 8.0 AO Auto Urine SS UA Protein 100 mg/dL Invalid Interpretation Code Negativemg /dL AO Auto Urine SS UA RBC 0-5 /HPF Invalid Interpretation Code None Seen/HPF AO Auto Urine SS UA Spec Grav 1.025 (04/06/23 8:55 AM) Invalid Interpretation Code 1.015-1.02 5 AO Auto Urine SS UA Specimen Type Void (04/06/23 8:55 AM) Invalid Interpretation Code AO Auto Urine SS UA Squam Epithelial 0-5 /HPF Invalid Interpretation Code None Seen/HPF AO Auto Urine SS UA Urobilinogen 0.2 E.U./dL Invalid Interpretation Code 0.2-1.0E.U ./dL AO Auto Urine SS WBC LM.HPF (Urine sed) [#/Area] 5-10 /HPF Invalid Interpretation Code None Seen/HPF AO Auto Urine SS LACon 04-06-2023 Lactic Acid Lvl 1.5 mmol/L Normal 0.4-2.0 [facility] ([place]) Comment on above: Order Comment: Order ed secondary to Lactic Acid result greater than or equal to 2.0 Performed By: #### G FR, MG, LIP, MDW, CBC, CMP, MORPH, DIFF #### [address] [address] Lactic Acid Lvl 2.0 mmol/L Normal 0.4-2.0 [facility] ([place]) Comment on above: Performed By: #### G FR, MG, LIP, MDW, CBC, CMP, MORPH, DIFF #### [address] [address] LIPon 04-06-2023 Lipase Level 25 U/L Normal 16-77 [facility] ([place]) Comment on above: Performed By: #### G FR, MG, LIP, MDW, CBC, CMP, MORPH, DIFF #### [address] [address] MGon 04-06-2023 Magnesium [Mass/Vol] 2.8 mg/dL High 1.8-2.4 [facility] ([place]) Comment on above: Performed By: #### M G #### [address] [address] Magnesium [Mass/Vol] 1.1 mg/dL Low 1.8-2.4 [facility] ([place]) Comment on above: Performed By: #### G FR, MG, LIP, MDW, CBC, CMP, MORPH, DIFF #### [address] [address] No Panel Informationon 04-06 Microscopic examination of blood, culture Culture has been received in lab and is no growth to date. Routine cultures are held for 5 days. [facility] [place] Work Phone: UAon 04-06-2023 Color (U) Dark yellow Normal [facility] ([place]) Comment on above: Performed By: #### G FR, MG, LIP, MDW, CBC, CMP, MORPH, DIFF #### [address] [address] Glucose (U) [Mass/Vol] Negative Normal Negative [facility] ([place]) Comment on above: Performed By: #### G FR, MG, LIP, MDW, CBC, CMP, MORPH, DIFF #### [address] [address] Ketones Ql (U) Trace Abnormal Negative [facility] ([place]) Comment on above: Performed By: #### G FR, MG, LIP, MDW, CBC, CMP, MORPH, DIFF #### [address] [address] UA Appear Slightly Cloudy Abnormal Clear [facility] ([place] Comment on above: Performed By: #### G FR, MG, LIP, MDW, CBC, CMP, MORPH, DIFF #### [address] [address] UA Bili Small Abnormal Negative [facility] ([place] Comment on above: Performed By: #### G FR, MG, LIP, MDW, CBC, CMP, MORPH, DIFF #### [place] [address] UA Blood Small Abnormal Negative [facility] ([place] Comment on above: Performed By: #### G FR, MG, LIP, MDW, CBC, CMP, MORPH, DIFF #### [place] [address] UA Leuk Est Negative Normal Negative [facility] ([place] Comment on above: Performed By: #### G FR, MG, LIP, MDW, CBC, CMP, MORPH, DIFF #### [address] [address] UA Nitrite Negative Normal Negative [facility] ([place] Comment on above: Performed By: #### G FR, MG, LIP, MDW, CBC, CMP, MORPH, DIFF #### [address] [address] UA pH 5.5 Normal 5.0 - 8.0 [facility] ([place] Comment on above: Performed By: #### G FR, MG, LIP, MDW, CBC, CMP, MORPH, DIFF #### [place] [address] UA Protein 100 mg/dL Abnormal Negative [facility] ([place] Comment on above: Performed By: #### G FR, MG, LIP, MDW, CBC, CMP, MORPH, DIFF #### [place] [address] UA Spec Grav 1.025 Normal 1.015-1.02 5 [facility] ([place] Comment on above: Performed By: #### G FR, MG, LIP, MDW, CBC, CMP, MORPH, DIFF #### [address] [address] UA Specimen Type Void Normal [facility] ([place] Comment on above: Performed By: #### G FR, MG, LIP, MDW, CBC, CMP, MORPH, DIFF #### [address] [address] UA Urobilinogen 0.2 E.U./dL Normal 0.2-1.0 [facility] ([place] Comment on above: Performed By: #### G FR, MG, LIP, MDW, CBC, CMP, MORPH, DIFF #### [address] [address] .Auto Diffon 03-27-2023 Basophil, Absolute 0.1 10 3/mcL Normal 0.0-0.2 [facility] ([place]) Comment on above: Performed By: #### G FR, MG, LIP, MDW, CBC, CMP, MORPH, DIFF #### [place] [address] Basophils/100 WBC (Bld) 0.8 % Normal 0.0-2.5 A [facility] ([place]) Comment on above: Performed By: #### G FR, MG, LIP, MDW, CBC, CMP, MORPH, DIFF #### [place] [address] Eosinophil, Absolute 0.1 10 3/mcL Normal 0.0-0.4 [facility] ([place]) Comment on above: Performed By: #### G FR, MG, LIP, MDW, CBC, CMP, MORPH, DIFF #### [address] [address] Eosinophils/100 WBC (Bld) 0.4 % Normal 0.0-7.0 [facility] ([place] Comment on above: Performed By: #### G FR, MG, LIP, MDW, CBC, CMP, MORPH, DIFF #### [address] [address] Lymphocyte, Absolute 1.4 10 3/mcL Normal 0.8-3.9 [facility] ([place] Comment on above: Performed By: #### G FR, MG, LIP, MDW, CBC, CMP, MORPH, DIFF #### [address] [address] Lymphocytes/100 WBC (Bld) 8.7 % Low 10.0-50.0 [facility] ([place] Comment on above: Performed By: #### G FR, MG, LIP, MDW, CBC, CMP, MORPH, DIFF #### [address] [address] Monocyte, Absolute 0.4 10 3/mcL Normal 0.2-1.0 [facility] ([place] Comment on above: Performed By: #### G FR, MG, LIP, MDW, CBC, CMP, MORPH, DIFF #### [address] [address] Monocytes/100 WBC (Bld) 2.5 % Normal 1.7-13.0 A [facility] ([place] Comment on above: Performed By: #### G FR, MG, LIP, MDW, CBC, CMP, MORPH, DIFF #### [address] [address] Neutrophils/100 WBC (Bld) 87.6 % High 37.0-80.0 [facility] ([place] Comment on above: Performed By: #### G FR, MG, LIP, MDW, CBC, CMP, MORPH, DIFF #### [address] [address] .GFRon 03-27-2023 GFR 96 ml/min/1.73sqm Normal [facility] ([place]) Comment on above: Result Comment: GFR Population mean for , Non- Americans Ages 20-29 = 116 mL/min/1.73 sq.m. Ages 30-39 = 107 mL/min/1.73 sq.m. Ages 40-49 = 99 mL/min/1.73 sq.m. Ages 50-59 = 93 mL/min/1.73 sq.m. Ages 60-69 = 85 mL/min/1.73 sq.m. Ages 70+ = 75 mL/min/1.73 sq.m. Chronic Kidney Disease: Less than 60 mL/min/1.73 square meters End Stage Renal Disease: Less than 15 mL/min/1.73 square meters Performed By: #### G FR, MG, LIP, MDW, CBC, CMP, MORPH, DIFF #### [address] [address] GFR Non- 79 ml/min/1.73sqm Normal [facility] ([place] Comment on above: Result Comment: GFR Population mean for , Non- Americans Ages 20-29 = 116 mL/min/1.73 sq.m. Ages 30-39 = 107 mL/min/1.73 sq.m. Ages 40-49 = 99 mL/min/1.73 sq.m. Ages 50-59 = 93 mL/min/1.73 sq.m. Ages 60-69 = 85 mL/min/1.73 sq.m. Ages 70+ = 75 mL/min/1.73 sq.m. Chronic Kidney Disease: Less than 60 mL/min/1.73 square meters End Stage Renal Disease: Less than 15 mL/min/1.73 square meters Performed By: #### G FR, MG, LIP, MDW, CBC, CMP, MORPH, DIFF #### [address] [address] .MDWon 03-27-2023 Monocyte Distribution Width 14.96 Normal 0.00-20.00 [facility] ([place]) Comment on above: Result Comment: For ED adult patients suspected of sepsis, MDW<=20.0 does not rule out sepsis or risk of sepsis Performed By: #### G FR, MG, LIP, MDW, CBC, CMP, MORPH, DIFF #### [address] [address] .NEUABSon 03-27-2023 Neutrophil, Absolute 13.7 10 3/mcL High 2.9-6.2 A [facility] ([place]) Comment on above: Performed By: #### G FR, MG, LIP, MDW, CBC, CMP, MORPH, DIFF #### [address] [address] BMPon 03-27-2023 BUN/Creatinine Ratio 12 ratio Normal 7-27 [facility] ([place]) Comment on above: Performed By: #### G FR, MG, LIP, MDW, CBC, CMP, MORPH, DIFF #### [address] [address] Calcium [Mass/Vol] 9.8 mg/dL Normal 8.4-10.2 [facility] ([place]) Comment on above: Performed By: #### G FR, MG, LIP, MDW, CBC, CMP, MORPH, DIFF #### [address] [address] Chloride [Moles/Vol] 99 mmol/L Normal 98-107 [facility] ([place]) Comment on above: Performed By: #### G FR, MG, LIP, MDW, CBC, CMP, MORPH, DIFF #### [address] [address] CO2 [Moles/Vol] 21 mmol/L Low 23-31 [facility] ([place]) Comment on above: Performed By: #### G FR, MG, LIP, MDW, CBC, CMP, MORPH, DIFF #### [address] [address] Creatinine [Mass/Vol] 0.96 mg/dL Normal 0.70-1.30 [facility] ([place]) Comment on above: Performed By: #### G FR, MG, LIP, MDW, CBC, CMP, MORPH, DIFF #### [address] [address] Electrolyte Balance 16.0 mEq/L High 4.0-15.0 [facility] ([place]) Comment on above: Performed By: #### G FR, MG, LIP, MDW, CBC, CMP, MORPH, DIFF #### [address] [address] Glucose [Mass/Vol] 143 mg/dL High 80-115 [facility] ([place]) Comment on above: Performed By: #### G FR, MG, LIP, MDW, CBC, CMP, MORPH, DIFF #### [address] [address] Potassium [Moles/Vol] 4.0 mmol/L Normal 3.5-5.1 [facility] ([place] Comment on above: Performed By: #### G FR, MG, LIP, MDW, CBC, CMP, MORPH, DIFF #### [address] [address] Sodium [Moles/Vol] 136 mmol/L Normal 136-145 [facility] ([place]) Comment on above: Performed By: #### G FR, MG, LIP, MDW, CBC, CMP, MORPH, DIFF #### [address] [address] Urea nitrogen [Mass/Vol] 12 mg/dL Normal 7-18 [facility] [facility] ([place]) Comment on above: Performed By: #### G FR, MG, LIP, MDW, CBC, CMP, MORPH, DIFF #### [address] [address] CBCon 03-27-2023 Erythrocyte distribution width (RBC) [Ratio] 18.0 % High 11.5-14.5 [facility] ([place]) Comment on above: Performed By: #### G FR, MG, LIP, MDW, CBC, CMP, MORPH, DIFF #### [address] [address] Hematocrit (Bld) [Volume fraction] 40.6 % Low 42.0-52.0 [facility] ([place]) Comment on above: Performed By: #### G FR, MG, LIP, MDW, CBC, CMP, MORPH, DIFF #### [address] [address] Hgb 13.4 G/dL Low 14.0-18.0 [facility] ([place]) Comment on above: Performed By: #### G FR, MG, LIP, MDW, CBC, CMP, MORPH, DIFF #### [address] [address] MCH (RBC) [Entitic mass] 27.1 pg Normal 27.0-31.2 [facility] ([place]) Comment on above: Performed By: #### G FR, MG, LIP, MDW, CBC, CMP, MORPH, DIFF #### [address] [address] MCHC 33.0 G/dL Normal 31.8-35.4 [facility] ([place]) Comment on above: Performed By: #### G FR, MG, LIP, MDW, CBC, CMP, MORPH, DIFF #### [address] [address] MCV (RBC) [Entitic vol] 82.0 fL Normal 80.0-94.0 A [facility] ([place]) Comment on above: Performed By: #### G FR, MG, LIP, MDW, CBC, CMP, MORPH, DIFF #### [address] [address] Platelet 443 10 3/mcL High 130-400 [facility] ([place]) Comment on above: Performed By: #### G FR, MG, LIP, MDW, CBC, CMP, MORPH, DIFF #### [address] [address] Platelet mean volume (Bld) [Entitic vol] 7.6 fL Normal 7.4-10.4 [facility] ([place]) Comment on above: Performed By: #### G FR, MG, LIP, MDW, CBC, CMP, MORPH, DIFF #### [address] [address] RBC 4.96 10 6/mcL Normal 4.04-6.13 [facility] ([place]) Comment on above: Performed By: #### G FR, MG, LIP, MDW, CBC, CMP, MORPH, DIFF #### [address] [address] WBC 15.7 10 3/mcL High 4.6-10.8 [facility] ([place]) Comment on above: Performed By: #### G FR, MG, LIP, MDW, CBC, CMP, MORPH, DIFF #### [place] [address] [place], [place] [address] LABORATORYOrdered By: SYSTEM SYSTEM on 03-27-2023 Basophil, Absolute 0.1 103/mcL Invalid Interpretation Code 0.0 - 0.2 10^3/mcL AO Workflow SS Basophils/100 WBC (Bld) 0.8 % Invalid Interpretation Code 0.0 - 2.5 % AO Workflow SS Calcium [Mass/Vol] 9.8 mg/dL Invalid Interpretation Code 8.4 - 10.2 mg/dL AO ADM SS Chloride [Moles/Vol] 99 mmol/L Invalid Interpretation Code 98 - 107 mmol/L AO ADM SS CO2 [Moles/Vol] 21 mmol/L Invalid Interpretation Code 23 - 31 mmol/L AO ADM SS Creatinine [Mass/Vol] 0.96 mg/dL Invalid Interpretation Code 0.70 - 1.30 mg/dL AO ADM SS Electrolyte Balance 16.0 mEq/L Invalid Interpretation Code 4.0 - 15.0 mEq/L AO ADM SS Eosinophil, Absolute 0.1 103/mcL Invalid Interpretation Code 0.0 - 0.4 10^3/mcL AO Workflow SS Eosinophils/100 WBC (Bld) 0.4 % Invalid Interpretation Code 0.0 - 7.0 % AO Workflow SS Erythrocyte distribution width (RBC) [Ratio] 18.0 % Invalid Interpretation Code 11.5 - 14.5 % AO Workflow SS GFR/1.73 sq M.predicted among blacks MDRD (S/P/Bld) [Vol rate/Area] 96 ml/min/1.73sqm Invalid Interpretation Code AO Chemistry S GFR/1.73 sq M.predicted among non-blacks MDRD (S/P/Bld) [Vol rate/Area] 79 ml/min/1.73sqm Invalid Interpretation Code AO Chemistry S Glucose [Mass/Vol] 143 mg/dL Invalid Interpretation Code 80 - 115 mg/dL AO ADM SS Hematocrit (Bld) [Volume fraction] 40.6 % Invalid Interpretation Code 42.0 - 52.0 % AO Workflow SS Hemoglobin (Bld) [Mass/Vol] 13.4 G/dL Invalid Interpretation Code 14.0 - 18.0 G/dL AO Workflow SS Lymphocyte, Absolute 1.4 103/mcL Invalid Interpretation Code 0.8 - 3.9 10^3/mcL AO Workflow SS Lymphocytes/100 WBC (Bld) 8.7 % Invalid Interpretation Code 10.0 - 50.0 % AO Workflow SS Magnesium [Mass/Vol] 1.3 mg/dL Invalid Interpretation Code 1.8 - 2.4 mg/dL AO ADM SS MCH (RBC) [Entitic mass] 27.1 pg Invalid Interpretation Code 27.0 - 31.2 pg AO Workflow SS MCHC 33.0 G/dL Invalid Interpretation Code 31.8 - 35.4 G/dL AO Workflow SS MCV (RBC) [Entitic vol] 82.0 fL Invalid Interpretation Code 80.0 - 94.0 fL AO Workflow SS Monocyte distribution width Auto (Bld) [Entitic vol] 14.96 Invalid Interpretation Code 0.00 - 20.00 AO Workflow SS Comment on above: Result Comment: For ED adult patients suspected of sepsis, MDW<=20.0 does not rule out sepsis or risk of sepsis Monocyte, Absolute 0.4 103/mcL Invalid Interpretation Code 0.2 - 1.0 10^3/mcL AO Workflow SS Monocytes/100 WBC (Bld) 2.5 % Invalid Interpretation Code 1.7 - 13.0 % AO Workflow SS Neutrophil, Absolute 13.7 103/mcL Invalid Interpretation Code 2.9 - 6.2 10^3/mcL AO Workflow SS Neutrophils/100 WBC (Bld) 87.6 % Invalid Interpretation Code 37.0 - 80.0 % AO Workflow SS Platelet mean volume (Bld) [Entitic vol] 7.6 fL Invalid Interpretation Code 7.4 - 10.4 fL AO Workflow SS Platelets (Bld) [#/Vol] 443 103/mcL Invalid Interpretation Code 130 - 400 10^3/mcL AO Workflow SS Potassium [Moles/Vol] 4.0 mmol/L Invalid Interpretation Code 3.5 - 5.1 mmol/L AO ADM SS RBC (Bld) [#/Vol] 4.96 106/mcL Invalid Interpretation Code 4.04 - 6.13 10^6/mcL AO Workflow SS Sodium [Moles/Vol] 136 mmol/L Invalid Interpretation Code 136 - 145 mmol/L AO ADM SS Urea nitrogen [Mass/Vol] 12 mg/dL Invalid Interpretation Code 7 - 18 mg/dL AO ADM SS Urea nitrogen/Creatinine [Mass ratio] 12 ratio Invalid Interpretation Code 7 - 27 ratio AO ADM SS WBC (Bld) [#/Vol] 15.7 103/mcL Invalid Interpretation Code 4.6 - 10.8 10^3/mcL AO Workflow SS MGon 03-27-2023 Magnesium [Mass/Vol] 1.3 mg/dL Low 1.8-2.4 [facility] ([place]) Comment on above: Performed By: #### G FR, MG, LIP, MDW, CBC, CMP, MORPH, DIFF #### [address] [address] .GFRon 03-09-2023 GFR 40 ml/min/1.73sqm Normal [facility] ([place]) Comment on above: Result Comment: GFR Population mean for , Non- Americans Ages 20-29 = 116 mL/min/1.73 sq.m. Ages 30-39 = 107 mL/min/1.73 sq.m. Ages 40-49 = 99 mL/min/1.73 sq.m. Ages 50-59 = 93 mL/min/1.73 sq.m. Ages 60-69 = 85 mL/min/1.73 sq.m. Ages 70+ = 75 mL/min/1.73 sq.m. Chronic Kidney Disease: Less than 60 mL/min/1.73 square meters End Stage Renal Disease: Less than 15 mL/min/1.73 square meters Performed By: #### G FR, MG, LIP, MDW, CBC, CMP, MORPH, DIFF #### [address] [address] GFR Non- 33 ml/min/1.73sqm Normal [facility] ([place]) Comment on above: Result Comment: GFR Population mean for , Non- Americans Ages 20-29 = 116 mL/min/1.73 sq.m. Ages 30-39 = 107 mL/min/1.73 sq.m. Ages 40-49 = 99 mL/min/1.73 sq.m. Ages 50-59 = 93 mL/min/1.73 sq.m. Ages 60-69 = 85 mL/min/1.73 sq.m. Ages 70+ = 75 mL/min/1.73 sq.m. Chronic Kidney Disease: Less than 60 mL/min/1.73 square meters End Stage Renal Disease: Less than 15 mL/min/1.73 square meters Performed By: #### G FR, MG, LIP, MDW, CBC, CMP, MORPH, DIFF #### [place] [address] .MDWon 03-09-2023 Monocyte Distribution Width 15.16 Normal 0.00-20.00 [facility] ([place]) Comment on above: Result Comment: For ED adult patients suspected of sepsis, MDW<=20.0 does not rule out sepsis or risk of sepsis Performed By: #### G FR, MG, LIP, MDW, CBC, CMP, MORPH, DIFF #### [place] [address] .Manual Diffon 03-09-2023 Basophil %, Manual 0.0 % Normal 0.0-2.5 [facility] ([place]) Comment on above: Performed By: #### G FR, MG, LIP, MDW, CBC, CMP, MORPH, DIFF #### [place] [address] Basophil, Abs Manual 0.0 10 3/mcL Normal 0.0-0.2 [facility] ([place]) Comment on above: Performed By: #### G FR, MG, LIP, MDW, CBC, CMP, MORPH, DIFF #### [place] [address] Eosinophil %, Manual 1.0 % Normal 0.0-7.0 [facility] ([place]) Comment on above: Performed By: #### G FR, MG, LIP, MDW, CBC, CMP, MORPH, DIFF #### [place] [address] Eosinophil, Abs Manual 0.2 10 3/mcL Normal 0.0-0.4 [facility] ([place]) Comment on above: Performed By: #### G FR, MG, LIP, MDW, CBC, CMP, MORPH, DIFF #### [place] [id number] Lymphocyte %, Manual 5.0 % Low 10.0-50.0 [facility] ([place]) Comment on above: Performed By: #### G FR, MG, LIP, MDW, CBC, CMP, MORPH, DIFF #### [address] [address] Lymphocyte, Abs Manual 1.1 10 3/mcL Normal 0.8-3.9 [facility] ([place]) Comment on above: Performed By: #### G FR, MG, LIP, MDW, CBC, CMP, MORPH, DIFF #### [address] [address] Monocyte %, Manual 8.0 % Normal 1.7-13.0 [facility] ([place]) Comment on above: Performed By: #### G FR, MG, LIP, MDW, CBC, CMP, MORPH, DIFF #### [address] [address] Monocyte, Abs Manual 1.7 10 3/mcL High 0.2-1.0 [facility] ([place]) Comment on above: Performed By: #### G FR, MG, LIP, MDW, CBC, CMP, MORPH, DIFF #### [address] [address] Neutrophil %, Manual 86.0 % High 37.0-80.0 [facility] ([place]) Comment on above: Performed By: #### G FR, MG, LIP, MDW, CBC, CMP, MORPH, DIFF #### [address] [address] Neutrophil, Abs Manual 18.7 10 3/mcL High 2.9-6.2 [facility] ([place]) Comment on above: Performed By: #### G FR, MG, LIP, MDW, CBC, CMP, MORPH, DIFF #### [address] [address] Nucleated RBC 0.0 /100 WBC Normal [facility] ([place]) Comment on above: Performed By: #### G FR, MG, LIP, MDW, CBC, CMP, MORPH, DIFF #### [address] [address] .Morphon 03-09-2023 Anisocytosis Ql (Bld) 1+ Normal [facility] ([place]) Comment on above: Performed By: #### G FR, MG, LIP, MDW, CBC, CMP, MORPH, DIFF #### [place] [address] Hyperseg 1+ Normal [facility] ([place]) Comment on above: Performed By: #### G FR, MG, LIP, MDW, CBC, CMP, MORPH, DIFF #### [place] [address] Ovalocytes 1+ Normal [facility] ([place]) Comment on above: Performed By: #### G FR, MG, LIP, MDW, CBC, CMP, MORPH, DIFF #### [place] [address] Platelet Estimate Slt Increased Normal [facility] ([place]) Comment on above: Performed By: #### G FR, MG, LIP, MDW, CBC, CMP, MORPH, DIFF #### [place] [address] .Urinalysis Microscopic (AO) on 03-09-2023 UA Coarse Granular Casts 5-10 Abnormal [facility] ([place]) Comment on above: Performed By: #### G FR, MG, LIP, MDW, CBC, CMP, MORPH, DIFF #### [place] [id number] UA Hyal Cast 5-10 Abnormal [facility] ([place]) Comment on above: Performed By: #### G FR, MG, LIP, MDW, CBC, CMP, MORPH, DIFF #### [place] [address] UA Mucous 1+ /hpf Normal [facility] ([place]) Comment on above: Performed By: #### G FR, MG, LIP, MDW, CBC, CMP, MORPH, DIFF #### [place] [address] UA RBC 0-5 Abnormal None Seen [facility] ([place]) Comment on above: Performed By: #### G FR, MG, LIP, MDW, CBC, CMP, MORPH, DIFF #### [place] [address] UA Squam Epithelial 0-5 Abnormal None Seen [facility] ([place]) Comment on above: Performed By: #### G FR, MG, LIP, MDW, CBC, CMP, MORPH, DIFF #### [place] [address] UA WBC 0-5 Abnormal None Seen [facility] ([place]) Comment on above: Performed By: #### G FR, MG, LIP, MDW, CBC, CMP, MORPH, DIFF #### [place] [address] UA Yeast Trace Abnormal [facility] ([place]) Comment on above: Performed By: #### G FR, MG, LIP, MDW, CBC, CMP, MORPH, DIFF #### [place] [address] CBCon 03-09-2023 Erythrocyte distribution width (RBC) [Ratio] 17.8 % High 11.5-14.5 [facility] ([place]) Comment on above: Performed By: #### G FR, MG, LIP, MDW, CBC, CMP, MORPH, DIFF #### [place] [address] Hematocrit (Bld) [Volume fraction] 40.4 % Low 42.0-52.0 [facility] ([place]) Comment on above: Performed By: #### G FR, MG, LIP, MDW, CBC, CMP, MORPH, DIFF #### [place] [address] Hgb 13.3 G/dL Low 14.0-18.0 [facility] ([place]) Comment on above: Performed By: #### G FR, MG, LIP, MDW, CBC, CMP, MORPH, DIFF #### [place] [address] MCH (RBC) [Entitic mass] 26.6 pg Low 27.0-31.2 [facility] ([place] Comment on above: Performed By: #### G FR, MG, LIP, MDW, CBC, CMP, MORPH, DIFF #### [address] [address] MCHC 32.9 G/dL Normal 31.8-35.4 [facility] ([place] Comment on above: Performed By: #### G FR, MG, LIP, MDW, CBC, CMP, MORPH, DIFF #### [address] [address] MCV (RBC) [Entitic vol] 80.7 fL Normal 80.0-94.0 A [facility] ([place]) Comment on above: Performed By: #### G FR, MG, LIP, MDW, CBC, CMP, MORPH, DIFF #### [address] [address] Platelet 528 10 3/mcL High 130-400 [facility] ([place]) Comment on above: Performed By: #### G FR, MG, LIP, MDW, CBC, CMP, MORPH, DIFF #### [address] [address] Platelet mean volume (Bld) [Entitic vol] 7.6 fL Normal 7.4-10.4 [facility] ([place]) Comment on above: Performed By: #### G FR, MG, LIP, MDW, CBC, CMP, MORPH, DIFF #### [address] [address] RBC 5.00 10 6/mcL Normal 4.04-6.13 [facility] ([place]) Comment on above: Performed By: #### G FR, MG, LIP, MDW, CBC, CMP, MORPH, DIFF #### [address] [address] WBC 21.7 10 3/mcL High 4.6-10.8 [facility] ([place]) Comment on above: Performed By: #### G FR, MG, LIP, MDW, CBC, CMP, MORPH, DIFF #### [address] [address] CMPon 03-09-2023 Albumin Level 4.6 G/dL Normal 3.4-4.8 [facility] ([place]) Comment on above: Performed By: #### G FR, MG, LIP, MDW, CBC, CMP, MORPH, DIFF #### [address] [address] Albumin/Globulin [Mass ratio] 1.4 {ratio} Normal 1.1-2.5 [facility] ([place]) Comment on above: Performed By: #### G FR, MG, LIP, MDW, CBC, CMP, MORPH, DIFF #### [address] [address] ALP [Catalytic activity/Vol] 64 U/L Normal 40-135 [facility] ([place]) Comment on above: Performed By: #### G FR, MG, LIP, MDW, CBC, CMP, MORPH, DIFF #### [address] [address] ALT [Catalytic activity/Vol] 23 U/L Normal 16-63 [facility] ([place]) Comment on above: Performed By: #### G FR, MG, LIP, MDW, CBC, CMP, MORPH, DIFF #### [address] [address] AST [Catalytic activity/Vol] 38 U/L Normal 10-40 [facility] ([place]) Comment on above: Performed By: #### G FR, MG, LIP, MDW, CBC, CMP, MORPH, DIFF #### [address] [address] Bili Total 0.4 mg/dL Normal 0.2-1.0 [facility] ([place]) Comment on above: Result Comment: Use of this assay is not recommended for patients undergoing treatment with eltrombopag due to the potential for falsely elevated results. Performed By: #### G FR, MG, LIP, MDW, CBC, CMP, MORPH, DIFF #### [address] [address] BUN/Creatinine Ratio 8 ratio Normal 7-27 [facility] ([place]) Comment on above: Performed By: #### G FR, MG, LIP, MDW, CBC, CMP, MORPH, DIFF #### [address] [address] Calcium [Mass/Vol] 11.6 mg/dL High 8.4-10.2 [facility] ([place]) Comment on above: Performed By: #### G FR, MG, LIP, MDW, CBC, CMP, MORPH, DIFF #### [address] [address] Chloride [Moles/Vol] 102 mmol/L Normal 98-107 [facility] ([place]) Comment on above: Performed By: #### G FR, MG, LIP, MDW, CBC, CMP, MORPH, DIFF #### [address] [address] CO2 [Moles/Vol] 21 mmol/L Low 23-31 [facility] ([place]) Comment on above: Performed By: #### G FR, MG, LIP, MDW, CBC, CMP, MORPH, DIFF #### [address] [address] Creatinine [Mass/Vol] 2.03 mg/dL High 0.70-1.30 [facility] ([place]) Comment on above: Performed By: #### G FR, MG, LIP, MDW, CBC, CMP, MORPH, DIFF #### [address] [address] Electrolyte Balance 16.0 mEq/L High 4.0-15.0 [facility] ([place]) Comment on above: Performed By: #### G FR, MG, LIP, MDW, CBC, CMP, MORPH, DIFF #### [address] [address] Globulin 3.4 G/dL Normal [facility] ([place]) Comment on above: Performed By: #### G FR, MG, LIP, MDW, CBC, CMP, MORPH, DIFF #### [address] [address] Glucose [Mass/Vol] 161 mg/dL High 80-115 [facility] ([place]) Comment on above: Performed By: #### G FR, MG, LIP, MDW, CBC, CMP, MORPH, DIFF #### [address] [address] Potassium [Moles/Vol] 4.1 mmol/L Normal 3.5-5.1 [facility] ([place]) Comment on above: Performed By: #### G FR, MG, LIP, MDW, CBC, CMP, MORPH, DIFF #### [address] [address] Sodium [Moles/Vol] 139 mmol/L Normal 136-145 [facility] ([place]) Comment on above: Performed By: #### G FR, MG, LIP, MDW, CBC, CMP, MORPH, DIFF #### [address] [address] Total Protein 8.0 G/dL Normal 6.4-8.2 [facility]) Comment on above: Performed By: #### G FR, MG, LIP, MDW, CBC, CMP, MORPH, DIFF #### [address] [address] Urea nitrogen [Mass/Vol] 17 mg/dL Normal 7-18 [facility] ([place]) Comment on above: Performed By: #### G FR, MG, LIP, MDW, CBC, CMP, MORPH, DIFF #### [address] [address] [address] ABD/PELVIS W/ IV CONTRAST ONLYon 03-09-2023 CT ABD/PELVIS W/ IV CONTRAST ONLY ORIGINAL EXAMINATION: CT OF THE ABDOMEN AND PELVIS WITH CONTRAST 03/09/2023 6:15 am TECHNIQUE: CT of the abdomen and pelvis was performed with the administration of intravenous contrast. Multiplanar reformatted images are provided for review. Automated exposure control, iterative reconstruction, and/or weight based adjustment of the mA/kV was utilized to reduce the radiation dose to as low as reasonably achievable. COMPARISON: 01/15/2023 HISTORY: ORDERING SYSTEM PROVIDED HISTORY: Reason for Exam: abdominal pain FINDINGS: The lung bases demonstrate no acute process. There are coronary artery stents. No focal hepatic lesion. Calcified splenic granulomas. Unchanged bilateral adrenal thickening with several small nodules. Prior cholecystectomy. The pancreas is unremarkable. Symmetric nephrograms. The ureters are unremarkable. Mild circumferential bladder wall thickening. Similar stable benign-appearing renal cysts measuring up to 7.4 cm on the left. Stable indeterminate 2.7 cm right mid pole and left anterior 1.2 cm renal lesions. Stable moderate hiatal hernia. Nondilated loops of small bowel. A normal appendix is identified. Few scattered sigmoid diverticular noted without adjacent inflammation. Atherosclerotic nonaneurysmal abdominal aorta. No lymphadenopathy. Prostate is unremarkable. Small left and tiny right fat containing inguinal hernias. No free intraperitoneal gas or fluid. Degenerative changes of the spine most notably inferiorly. IMPRESSION: Circumferential bladder wall thickening which may relate to underdistention versus cystitis. Correlation with urinalysis is recommended. Stable indeterminate bilateral renal lesions. Nonemergent renal ultrasound or MRI may be obtained for further characterization. Similar prominent adrenal thickening with underlying hypodensities possibly representing adenomas. Further evaluation with dedicated adrenal CT could be obtained for further characterization. Moderate hiatal hernia. Colonic diverticulosis without diverticulitis. Preliminary Report was Dictated by a Resident Interpreted by: Sandeep Grey MD Preliminary Report By: Adolfo Delatorre Electronically signed By Sandeep Grey MD Dictated Date: 03/09/2023 6:17:46 AM Prelim Date: 03/09/2023 6:31:48 AM Sign Date: 03/09/2023 6:55:31 AM Ordering Provider: ALFRED LANDAVERDE [facility] ([place]) LABORATORYOrdered By: SYSTEM SYSTEM on 03-09-2023 Albumin BCP dye [Mass/Vol] 4.6 G/dL Invalid Interpretation Code 3.4 - 4.8 G/dL AO ADM SS Albumin/Globulin [Mass ratio] 1.4 {ratio} Invalid Interpretation Code 1.1 - 2.5 ratio AO ADM SS ALP [Catalytic activity/Vol] 64 U/L Invalid Interpretation Code 40 - 135 U/L AO ADM SS ALT With P-5'-P [Catalytic activity/Vol] 23 U/L Invalid Interpretation Code 16 - 63 U/L AO ADM SS AST With P-5'-P [Catalytic activity/Vol] 38 U/L Invalid Interpretation Code 10 - 40 U/L AO ADM SS Bilirubin [Mass/Vol] 0.4 mg/dL Invalid Interpretation Code 0.2 - 1.0 mg/dL AO ADM SS Calcium [Mass/Vol] 11.6 mg/dL Invalid Interpretation Code 8.4 - 10.2 mg/dL AO ADM SS Chloride [Moles/Vol] 102 mmol/L Invalid Interpretation Code 98 - 107 mmol/L AO ADM SS CO2 [Moles/Vol] 21 mmol/L Invalid Interpretation Code 23 - 31 mmol/L AO ADM SS Creatinine [Mass/Vol] 2.03 mg/dL Invalid Interpretation Code 0.70 - 1.30 mg/dL AO ADM SS Electrolyte Balance 16.0 mEq/L Invalid Interpretation Code 4.0 - 15.0 mEq/L AO ADM SS GFR/1.73 sq M.predicted among blacks MDRD (S/P/Bld) [Vol rate/Area] 40 ml/min/1.73sqm Invalid Interpretation Code AO Chemistry S GFR/1.73 sq M.predicted among non-blacks MDRD (S/P/Bld) [Vol rate/Area] 33 ml/min/1.73sqm Invalid Interpretation Code AO Chemistry S Globulin 3.4 G/dL Invalid Interpretation Code AO ADM SS Glucose [Mass/Vol] 161 mg/dL Invalid Interpretation Code 80 - 115 mg/dL AO ADM SS Lipase [Catalytic activity/Vol] 35 U/L Invalid Interpretation Code 16 - 77 U/L AO ADM SS Magnesium [Mass/Vol] 1.1 mg/dL Invalid Interpretation Code 1.8 - 2.4 mg/dL AO ADM SS Potassium [Moles/Vol] 4.1 mmol/L Invalid Interpretation Code 3.5 - 5.1 mmol/L AO ADM SS Protein [Mass/Vol] 8.0 G/dL Invalid Interpretation Code 6.4 - 8.2 G/dL AO ADM SS Sodium [Moles/Vol] 139 mmol/L Invalid Interpretation Code 136 - 145 mmol/L AO ADM SS Urea nitrogen [Mass/Vol] 17 mg/dL Invalid Interpretation Code 7 - 18 mg/dL AO ADM SS Urea nitrogen/Creatinine [Mass ratio] 8 ratio Invalid Interpretation Code 7 - 27 ratio AO ADM SS LABORATORYOrdered By: Karina Kimble on 03-09-2023 Anisocytosis Ql (Bld) 1+ (03/09/23 5:14 AM) Invalid Interpretation Code AO Hematology S Basophil %, Manual 0.0 1 Invalid Interpretation Code 0.0 - 2.5 % AO Workflow SS Basophil, Abs Manual 0.0 103/mcL Invalid Interpretation Code 0.0 - 0.2 10^3/mcL AO Workflow SS Eosinophil %, Manual 1.0 1 Invalid Interpretation Code 0.0 - 7.0 % AO Workflow SS Eosinophils (Bld) [#/Vol] 0.2 103/mcL Invalid Interpretation Code 0.0 - 0.4 10^3/mcL AO Workflow SS Erythrocyte distribution width (RBC) [Ratio] 17.8 % Invalid Interpretation Code 11.5 - 14.5 % AO Workflow SS Hematocrit (Bld) [Volume fraction] 40.4 % Invalid Interpretation Code 42.0 - 52.0 % AO Workflow SS Hemoglobin (Bld) [Mass/Vol] 13.3 G/dL Invalid Interpretation Code 14.0 - 18.0 G/dL AO Workflow SS Lymphocyte %, Manual 5.0 1 Invalid Interpretation Code 10.0 - 50.0 % AO Workflow SS Lymphocyte, Abs Manual 1.1 103/mcL Invalid Interpretation Code 0.8 - 3.9 10^3/mcL AO Workflow SS MCH (RBC) [Entitic mass] 26.6 pg Invalid Interpretation Code 27.0 - 31.2 pg AO Workflow SS MCHC 32.9 G/dL Invalid Interpretation Code 31.8 - 35.4 G/dL AO Workflow SS MCV (RBC) [Entitic vol] 80.7 fL Invalid Interpretation Code 80.0 - 94.0 fL AO Workflow SS Monocyte %, Manual 8.0 1 Invalid Interpretation Code 1.7 - 13.0 % AO Workflow SS Monocyte distribution width Auto (Bld) [Entitic vol] 15.16 Invalid Interpretation Code 0.00 - 20.00 AO Workflow SS Comment on above: Result Comment: For ED adult patients suspected of sepsis, MDW<=20.0 does not rule out sepsis or risk of sepsis Monocyte, Abs Manual 1.7 103/mcL Invalid Interpretation Code 0.2 - 1.0 10^3/mcL AO Workflow SS Neutrophil %, Manual 86.0 1 Invalid Interpretation Code 37.0 - 80.0 % AO Workflow SS Neutrophil, Abs Manual 18.7 103/mcL Invalid Interpretation Code 2.9 - 6.2 10^3/mcL AO Workflow SS Neutrophils.hypersegment ed LM Ql (Bld) 1+ (03/09/23 5:14 AM) Invalid Interpretation Code AO Hematology S Nucleated RBC 0.0 /100 WBC Invalid Interpretation Code AO Workflow SS Ovalocytes LM Ql (Bld) 1+ (03/09/23 5:14 AM) Invalid Interpretation Code AO Hematology S Platelet Estimate Slt Increased (03/09/23 5:14 AM) Invalid Interpretation Code AO Hematology S Platelet mean volume (Bld) [Entitic vol] 7.6 fL Invalid Interpretation Code 7.4 - 10.4 fL AO Workflow SS Platelets (Bld) [#/Vol] 528 103/mcL Invalid Interpretation Code 130 - 400 10^3/mcL AO Workflow SS RBC (Bld) [#/Vol] 5.00 106/mcL Invalid Interpretation Code 4.04 - 6.13 10^6/mcL AO Workflow SS WBC (Bld) [#/Vol] 21.7 103/mcL Invalid Interpretation Code 4.6 - 10.8 10^3/mcL AO Workflow SS LABORATORYOrdered By: Blanca Parkinson on 03-09-2023 Appearance (U) Cloudy *ABN* (03/09/23 5:14 AM) Invalid Interpretation Code Clear AO Auto Urine SS Bilirubin Ql (U) Negative (03/09/23 5:14 AM) Invalid Interpretation Code Negative AO Auto Urine SS Color (U) Yellow (03/09/23 5:14 AM) Invalid Interpretation Code AO Auto Urine SS Glucose Test strip (U) [Mass/Vol] Negative Invalid Interpretation Code Negativemg /dL AO Auto Urine SS Hemoglobin Auto test strip (U) [Mass/Vol] Small *ABN* (03/09/23 5:14 AM) Invalid Interpretation Code Negative AO Auto Urine SS Ketones Ql (U) Negative Invalid Interpretation Code Negativemg /dL AO Auto Urine SS UA Coarse Granular Casts 5-10 /LPF Invalid Interpretation Code AO Auto Urine SS UA Hyal Cast 5-10 /LPF Invalid Interpretation Code AO Auto Urine SS UA Leuk Est Negative (03/09/23 5:14 AM) Invalid Interpretation Code Negative AO Auto Urine SS UA Mucous 1+ /HPF Invalid Interpretation Code AO Auto Urine SS UA Nitrite Negative (03/09/23 5:14 AM) Invalid Interpretation Code Negative AO Auto Urine SS UA pH 5.5 (03/09/23 5:14 AM) Invalid Interpretation Code 5.0 - 8.0 AO Auto Urine SS UA Protein >=300 mg/dL Invalid Interpretation Code Negativemg /dL AO Auto Urine SS UA RBC 0-5 /HPF Invalid Interpretation Code None Seen/HPF AO Auto Urine SS UA Spec Grav >=1.030 *ABN* (03/09/23 5:14 AM) Invalid Interpretation Code 1.015-1.02 5 AO Auto Urine SS UA Specimen Type Clean Catch (03/09/23 5:14 AM) Invalid Interpretation Code AO Auto Urine SS UA Squam Epithelial 0-5 /HPF Invalid Interpretation Code None Seen/HPF AO Auto Urine SS UA Urobilinogen 0.2 E.U./dL Invalid Interpretation Code 0.2-1.0E.U ./dL AO Auto Urine SS WBC LM.HPF (Urine sed) [#/Area] 0-5 /HPF Invalid Interpretation Code None Seen/HPF AO Auto Urine SS Yeast LM.HPF (Urine sed) [#/Area] Trace /HPF Invalid Interpretation Code AO Auto Urine SS LIPon 03-09-2023 Lipase Level 35 U/L Normal 16-77 [facility] ([place]) Comment on above: Performed By: #### G FR, MG, LIP, MDW, CBC, CMP, MORPH, DIFF #### [address] [address] [facility] 03-09-2023 Magnesium [Mass/Vol] 1.1 mg/dL Low 1.8-2.4 [facility] ([place]) Comment on above: Performed By: #### G FR, MG, LIP, MDW, CBC, CMP, MORPH, DIFF #### [address] [address] UAon 03-09-2023 Color (U) Yellow Normal [facility] ([place]) Comment on above: Performed By: #### G FR, MG, LIP, MDW, CBC, CMP, MORPH, DIFF #### [address] [address] Glucose (U) [Mass/Vol] Negative Normal Negative [facility] ([place]) Comment on above: Performed By: #### G FR, MG, LIP, MDW, CBC, CMP, MORPH, DIFF #### [address] [address] Ketones Ql (U) Negative Normal Negative [facility] ([place]) Comment on above: Performed By: #### G FR, MG, LIP, MDW, CBC, CMP, MORPH, DIFF #### [address] [address] UA Appear Cloudy Abnormal Clear [facility] ([place]) Comment on above: Performed By: #### G FR, MG, LIP, MDW, CBC, CMP, MORPH, DIFF #### [address] [address] UA Blood Small Abnormal Negative [facility] ([place]) Comment on above: Performed By: #### G FR, MG, LIP, MDW, CBC, CMP, MORPH, DIFF #### [address] [address] UA Leuk Est Negative Normal Negative [facility] ([place]) Comment on above: Performed By: #### G FR, MG, LIP, MDW, CBC, CMP, MORPH, DIFF #### [address] [address] UA Nitrite Negative Normal Negative [facility] ([place]) Comment on above: Performed By: #### G FR, MG, LIP, MDW, CBC, CMP, MORPH, DIFF #### [address] [address] UA pH 5.5 Normal 5.0 - 8.0 [facility] ([place]) Comment on above: Performed By: #### G FR, MG, LIP, MDW, CBC, CMP, MORPH, DIFF #### [address] [address] UA Protein >=300 Abnormal Negative [facility] ([place]) Comment on above: Performed By: #### G FR, MG, LIP, MDW, CBC, CMP, MORPH, DIFF #### [address] [address] UA Spec Grav >=1.030 Abnormal 1.015-1.02 5 [facility] ([place]) Comment on above: Performed By: #### G FR, MG, LIP, MDW, CBC, CMP, MORPH, DIFF #### [place] [address] [place], [place] [address] UA Specimen Type Clean Catch Normal [facility] ([place]) Comment on above: Performed By: #### G FR, MG, LIP, MDW, CBC, CMP, MORPH, DIFF #### [place] [address] [place], [place] [address] UA Urobilinogen 0.2 E.U./dL Normal 0.2-1.0 [facility] ([place]) Comment on above: Performed By: #### G FR, MG, LIP, MDW, CBC, CMP, MORPH, DIFF #### [place] [address] [place], [place] [address] Urobilinogen (U) [Mass/Vol] Negative Normal Negative [facility] ([place]) Comment on above: Performed By: #### G FR, MG, LIP, MDW, CBC, CMP, MORPH, DIFF #### [place] [address] [place], [place] [address] Basophil percentageOrdered B y: Dr. Kam on 03-08-2023 Chloride [Moles/Vol] 106 mmol/L 98-107 [facility] Glucose [Mass/Vol] 146 mg/dL 74-106 [facility] Comment on above: Fasting Glucose resu lt greater than or equal to 126 mg/dL suggests DIABETES MELLITUS per A.D.A. criteria. Potassium [Moles/Vol] 3.9 mmol/L 3.5-5.1 [facility] Sodium [Moles/Vol] 135 mmol/L 136-145 [facility] CBC (INCLUDES DIFF/PLT)on Basophils (Bld) [#/Vol] 0.049 10*3/uL Normal 0-200 [facility] Comment on above: Performed By: #### 1 4852, 6381, 87386, 5338 #### [facility] [address] [place] [address], [address] [place] [address] Home Advisor: Malvin Saez MD Basophils/100 WBC (Bld) 0.4 % Normal [facility] Comment on above: Performed By: #### 1 4852, 6399, 52707, 5363 #### [facility] of [place] [address] Home Advisor: Malvin Saez MD Eosinophils (Bld) [#/Vol] 0.197 10*3/uL Normal 15-500 [facility] Comment on above: Performed By: #### 1 4852, 6399, 24554, 5363 #### [facility] of [place] [address] Home Advisor: Malvin Saez MD Eosinophils/100 WBC (Bld) 1.6 % Normal [facility] Comment on above: Performed By: #### 1 4852, 6399, 34371, 5363 #### [facility] of [place] [address] Home Advisor: Malvin Saez MD Erythrocyte distribution width (RBC) [Ratio] 16.0 % High 11.0-15.0 [facility] Comment on above: Performed By: #### 1 4852, 6399, 56044, 5363 #### [facility] [place] [address] Home Advisor: Malvin Saez MD Hematocrit (Bld) [Volume fraction] 40.2 % Normal 38.5-50.0 [facility] Comment on above: Performed By: #### 1 4852, 6399, 43772, 5363 #### [facility] of [place] [address] Home Advisor: Malvin Saez MD Hemoglobin (Bld) [Mass/Vol] 12.8 g/dL Low 13.2-17.1 [facility] Comment on above: Performed By: #### 1 4852, 6399, 10353, 5363 #### [facility] of [place] [address] Home Advisor: Malvin Saez MD Lymphocytes (Bld) [#/Vol] 1.759 10*3/uL Normal 850-3900 [facility] Comment on above: Performed By: #### 1 4852, 6399, 08220, 5363 #### [facility] [place] [address] Home Advisor: Malvin Saez MD Lymphocytes/100 WBC (Bld) 14.3 % Normal [facility] Comment on above: Performed By: #### 1 4852, 6399, 75782, 5363 #### [facility] [place] [address] Home Advisor: Malvin Saez MD MCH (RBC) [Entitic mass] 26.8 pg Low 27.0-33.0 [facility] Comment on above: Performed By: #### 1 4852, 6399, 03930, 5363 #### [facility] of [place] [address] Home Advisor: Malvin Saez MD MCHC (RBC) [Mass/Vol] 31.8 g/dL Low 32.0-36.[address] [facility] Comment on above: Performed By: #### 1 4852, 6399, 30636, 5363 #### [facility] [place] [address] Home Advisor: Malvin Saez MD MCV (RBC) [Entitic vol] 84.1 fL Normal 80.0-100.0 [facility] Comment on above: Performed By: #### 1 4852, 63, 91775, 5363 #### [facility] [place] [address] Home Advisor: Malvin Saez MD Monocytes (Bld) [#/Vol] 0.664 10*3/uL Normal 200-950 [facility] Comment on above: Performed By: #### 1 4852, 6399, 08251, 5363 #### [facility] [place] [address] Home Advisor: Malvin Saez MD Monocytes/100 WBC (Bld) 5.4 % Normal [facility] Comment on above: Performed By: #### 1 4852, 6399, 29145, 5363 #### [facility] [place] [address] Home Advisor: Malvin Saez MD Neutrophils (Bld) [#/Vol] 9.631 10*3/uL High 0430-7748 [facility] Comment on above: Performed By: #### 1 4852, 6399, 05716, 5363 #### [facility] [place] [address] Home Advisor: Malvin Saez MD Neutrophils/100 WBC (Bld) 78.3 % Normal [facility] Comment on above: Performed By: #### 1 4852, 6399, 25127, 5363 #### [facility] [place] [address] Home Advisor: Malvin Saez MD Platelet mean volume (Bld) [Entitic vol] 10.5 fL Normal 7.5-12.5 [facility] Comment on above: Performed By: #### 1 4852, 6399, 87387, 5363 #### [facility] [place] [address] Home Advisor: Malvin Saez MD Platelets (Bld) [#/Vol] 417 10*3/uL High 140-400 [facility] Comment on above: Performed By: #### 1 4852, 6399, 38077, 5363 #### [facility] [place] [address] Home Advisor: Malvin Saez MD RBC (Bld) [#/Vol] 4.78 10*6/uL Normal 4.20-5.80 [facility] Comment on above: Performed By: #### 1 4852, 6399, 31465, 5363 #### [facility] [place] [address] Home Advisor: Malvin Saez MD WBC (Bld) [#/Vol] 12.3 10*3/uL High 3.8-10.8 [facility] Comment on above: Performed By: #### 1 4852, 6399, 41329, 5363 #### [facility] [place] [address] Home Advisor: Malvin Saez MD [facility] 03-08-2023 Albumin [Mass/Vol] 4.3 g/dL Normal 3.6-5.1 [facility] Comment on above: Performed By: #### 1 4852, 6399, 71047, 5363 #### [facility] [place] [address] Home Advisor: Malvin Saez MD Albumin/Globulin [Mass ratio] 1.9 {ratio} Normal 1.0-2.5 [facility] Comment on above: Performed By: #### 1 4852, 6399, 37928, 5363 #### [facility] [place] [address] Home Advisor: Malvin Saez MD ALP [Catalytic activity/Vol] 43 U/L Normal 35-144 [facility] Comment on above: Performed By: #### 1 4852, 6399, 43325, 5363 #### [facility] [place] [address] Home Advisor: Malvin Saez MD ALT [Catalytic activity/Vol] 10 U/L Normal 9-46 [facility] Comment on above: Performed By: #### 1 4852, 6399, 66550, 5363 #### [facility] [place] [address] Home Advisor: Malvin Saez MD AST [Catalytic activity/Vol] 23 U/L Normal 10-35 [facility] Comment on above: Performed By: #### 1 4852, 6399, 11472, 5363 #### [facility] [place] [address] Home Advisor: Malvin Saez MD Bilirubin [Mass/Vol] 0.4 mg/dL Normal 0.2-1.2 [facility] Comment on above: Performed By: #### 1 4852, 6399, 76702, 5363 #### [facility] [place] [address] Home Advisor: Malvin Saez MD BUN/CREATININE RATIO NOT APPLICABLE Normal 6-22 [facility] Comment on above: Performed By: #### 1 4852, 6399, 84706, 5363 #### [facility] [place] [address] Home Advisor: Malvin Saez MD Calcium [Mass/Vol] 9.7 mg/dL Normal 8.6-10.3 [facility] Comment on above: Performed By: #### 1 4852, 6399, 96089, 5363 #### [facility] [place] [address] Home Advisor: Malvin Saez MD Chloride [Moles/Vol] 103 mmol/L Normal 98-110 [facility] Comment on above: Performed By: #### 1 4852, 6399, 38552, 5363 #### [facility] [place] [address] Home Advisor: Malvin Saez MD CO2 [Moles/Vol] 20 mmol/L Normal 20-32 [facility] Comment on above: Performed By: #### 1 4852, 6399, 02957, 5363 #### [facility] [place] [address] Home Advisor: Malvin Saez MD Creatinine [Mass/Vol] 1.04 mg/dL Normal 0.70-1.[address] [facility] Comment on above: Performed By: #### 1 4852, 6399, 98007, 5363 #### [facility] [place] [address] Home Advisor: Malvin Saez MD GFR/1.73 sq M.predicted among non-blacks MDRD (S/P/Bld) [Vol rate/Area] 80 mL/min/{1.73_m2} Normal > OR = 60 [facility] Comment on above: Result Comment: The eGFR is based on the CKD-EPI 2020 equation. To calculate the new eGFR from a previous Creatinine or Cystatin C result, go to https://www.kidney.org/professionals/ kdoqi/gfr%5Fcalculator Performed By: #### 1 4852, 6399, 96548, 5363 #### [facility] [address], [address] [place] [address] Home Advisor: Malvin Saez MD Globulin (S) [Mass/Vol] 2.3 g/dL Normal 1.9-3.7 [facility] Comment on above: Performed By: #### 1 4852, 6399, 24076, 5363 #### [facility] [place] [address] Home Advisor: Malvin Saez MD Glucose [Mass/Vol] 86 mg/dL Normal 65-99 [facility] Comment on above: Result Comment: Fasting reference interval Performed By: #### 1 4852, 6399, 81892, 5363 #### [facility] [address], [address] [place] [address] Home Advisor: Malvin Saez MD Potassium [Moles/Vol] 4.5 mmol/L Normal 3.5-5.[address] [facility] Comment on above: Performed By: #### 1 4852, 6399, 04234, 5363 #### [facility] [place] [address] Home Advisor: Malvin Saez MD Protein [Mass/Vol] 6.6 g/dL Normal 6.1-8.1 [facility] Comment on above: Performed By: #### 1 4852, 6399, 96919, 5363 #### [facility] [place] [address] Home Advisor: Malvin Saez MD Sodium [Moles/Vol] 132 mmol/L Low 135-146 [facility] Comment on above: Performed By: #### 1 4852, 6399, 74057, 5363 #### [facility] [address], [address] [place] [address] Home Advisor: Malvin Saez MD Urea nitrogen [Mass/Vol] 11 mg/dL Normal 7-25 [facility] Comment on above: Performed By: #### 1 4852, 6399, 41073, 5363 #### [facility] [address], [address] [place] [address] Home Advisor: Malvin Saez MD LIPID PANEL WITH REFLEX TO D IRECT LDLon 03-08-2023 Cholesterol [Mass/Vol] 188 mg/dL Normal <200 [facility] Comment on above: Order Comment: FASTI NG:YES FASTING: YES Performed By: #### 1 4852, 6399, 09831, 5363 #### [facility] [address], [address] [place] [address] Home Advisor: Malvin Saez MD Cholesterol in HDL [Mass/Vol] 45 mg/dL Normal > OR = 40 [facility] Comment on above: Order Comment: FASTI NG:YES FASTING: YES Performed By: #### 1 4852, 6399, 95949, 5363 #### [facility] [place] [address] Home Advisor: Malvin Saez MD Cholesterol in LDL [Mass/Vol] 115 mg/dL High [facility] Comment on above: Order Comment: FASTI NG:YES FASTING: YES Result Comment: Refe rence range: <100 Desirable range <100 mg/dL for primary prevention; <70 mg/dL for patients with CHD or diabetic patients with > or = 2 CHD risk factors. LDL-C is now calculated using the Fozia calculation, which is a validated novel method providing better accuracy than the Friedewald equation in the estimation of LDL-C. Rojas SS et al. SIGRID. 2013;310(19): 1979-0283 (http://education.Salsify.Toushay - It's what's in store/faq/IPN166) Performed By: #### 1 4852, 6399, 13969, 5363 #### [facility] [address], [address] [place] [address] Home Advisor: Malvin Saez MD Cholesterol.total/Choles terol in HDL [Mass ratio] 4.2 {ratio} Normal <5.0 [facility] Comment on above: Order Comment: FASTI NG:YES FASTING: YES Performed By: #### 1 4852, 6399, 83476, 5363 #### [facility] [address], [address] [place] [address] Home Advisor: Malvin Saez MD NON HDL CHOLESTEROL 143 mg/dL (calc) High <130 [facility] Comment on above: Order Comment: FASTI NG:YES FASTING: YES Result Comment: For patients with diabetes plus 1 major ASCVD risk factor, treating to a non-HDL-C goal of <100 mg/dL (LDL-C of <70 mg/dL) is considered a therapeutic option. Performed By: #### 1 4852, 6399, 12067, 5363 #### [facility] [address], [address] [place] [address] Home Advisor: Malvin Saez MD Triglyceride [Mass/Vol] 160 mg/dL High <150 [facility] Comment on above: Order Comment: FASTI NG:YES FASTING: YES Performed By: #### 1 4852, 6399, 86420, 5363 #### [facility] [address], [address] [place] [address] Home Advisor: Malvin Saez MD Laboratory - Chemistry and C hemistry - challengeOrdered By: Dr. Kam on 03-08-2023 CO2 [Moles/Vol] 19.0 mmol/L 21.0-32.0 [facility] Urea nitrogen/Creatinine [Mass ratio] 12.5 mg/mg 10-20 [facility] No Panel InformationOrdered By: Dr. Kam on 03-08-2023 Estimated GFR (MDRD) Amer 78 mL/min >60 [facility] Comment on above: GFR Calc Estimated GFR (MDRD) Non-Af Amer 65 mL/min >60 [facility] Comment on above: Non- GFR Calc PSA, TOTALon 03-08-2023 PSA, TOTAL 0.43 ng/mL Normal < OR = 4.00 [facility] Comment on above: Result Comment: The total PSA value from this assay system is standardized against the WHO standard. The test result will be approximately 20% lower when compared to the equimolar-standardized total PSA (Concepcion Dwayne). Comparison of serial PSA results should be interpreted with this fact in mind. This test was performed using the Siemens chemiluminescent method. Values obtained from different assay methods cannot be used interchangeably. PSA levels, regardless of value, should not be interpreted as absolute evidence of the presence or absence of disease. Performed By: #### 1 4852, 6399, 96224, 5363 #### [facility] [address], [address] [place] [address] Home Advisor: Malvin Saez MD Serum or plasma calcium madelyn urement (mass/volume)Ordered By: Dr. Kam on 03-08-2023 Calcium [Mass/Vol] 9.7 mg/dL 8.5-10.1 [facility] Serum or plasma creatinine m easurement (mass/volume)Ordered By: Dr. Kam on 03-08-2023 Creatinine [Mass/Vol] 1.20 mg/dL 0.70-1.30 [facility] Comment on above: The validity of the calculated GFR & GFRAA in patients over 70 years has not been determined. Clinical correlation is essential. Serum or plasma urea nitroge n measurement (mass/volume)Ordered By: Dr. Kam on 03-08-2023 Urea nitrogen [Mass/Vol] 15 mg/dL 7-18 [facility] TSHon 03-08-2023 TSH Qn 1.82 m[IU]/L Normal 0.40-4.50 [facility] Comment on above: Performed By: #### 1 4852, 6399, 94670, 5363 #### [facility] [address], [address] [place] [address] Home Advisor: Malvin Saez MD Thin prep Papanicolaou smear with manual screeningOrdered By: Dr. Kam on 03-08-2023 Thin prep Papanicolaou smear with manual screening 02-05 [facility] .GFRon 01-16-2023 GFR 89 ml/min/1.73sqm Normal [facility] ([place]) Comment on above: Result Comment: GFR Population mean for , Non- Americans Ages 20-29 = 116 mL/min/1.73 sq.m. Ages 30-39 = 107 mL/min/1.73 sq.m. Ages 40-49 = 99 mL/min/1.73 sq.m. Ages 50-59 = 93 mL/min/1.73 sq.m. Ages 60-69 = 85 mL/min/1.73 sq.m. Ages 70+ = 75 mL/min/1.73 sq.m. Chronic Kidney Disease: Less than 60 mL/min/1.73 square meters End Stage Renal Disease: Less than 15 mL/min/1.73 square meters Performed By: #### G FR, MG, LIP, MDW, CBC, CMP, MORPH, DIFF #### [address] [address] GFR Non- 74 ml/min/1.73sqm Normal [facility] ([place]) Comment on above: Result Comment: GFR Population mean for , Non- Americans Ages 20-29 = 116 mL/min/1.73 sq.m. Ages 30-39 = 107 mL/min/1.73 sq.m. Ages 40-49 = 99 mL/min/1.73 sq.m. Ages 50-59 = 93 mL/min/1.73 sq.m. Ages 60-69 = 85 mL/min/1.73 sq.m. Ages 70+ = 75 mL/min/1.73 sq.m. Chronic Kidney Disease: Less than 60 mL/min/1.73 square meters End Stage Renal Disease: Less than 15 mL/min/1.73 square meters Performed By: #### G FR, MG, LIP, MDW, CBC, CMP, MORPH, DIFF #### [address] [address] .Manual Diffon 01-16-2023 Atypical Lymphs 3.0 % Normal 0.0-5.0 [facility] ([place]) Comment on above: Performed By: #### G FR, MG, LIP, MDW, CBC, CMP, MORPH, DIFF #### [address] [address] Basophil %, Manual 1.0 % Normal 0.0-2.5 [facility] ([place]) Comment on above: Performed By: #### G FR, MG, LIP, MDW, CBC, CMP, MORPH, DIFF #### [address] [address] Basophil, Abs Manual 0.1 10 3/mcL Normal 0.0-0.2 [facility] ([place]) Comment on above: Performed By: #### G FR, MG, LIP, MDW, CBC, CMP, MORPH, DIFF #### [address] [address] Eosinophil %, Manual 3.0 % Normal 0.0-7.0 [facility] ([place]) Comment on above: Performed By: #### G FR, MG, LIP, MDW, CBC, CMP, MORPH, DIFF #### [address] [address] Eosinophil, Abs Manual 0.2 10 3/mcL Normal 0.0-0.4 [facility] ([place] Comment on above: Performed By: #### G FR, MG, LIP, MDW, CBC, CMP, MORPH, DIFF #### [address] [address] Lymphocyte %, Manual 27.0 % Normal 10.0-50.0 [facility] ([place]) Comment on above: Performed By: #### G FR, MG, LIP, MDW, CBC, CMP, MORPH, DIFF #### [address] [address] Lymphocyte, Abs Manual 1.8 10 3/mcL Normal 0.8-3.9 [facility] ([place]) Comment on above: Performed By: #### G FR, MG, LIP, MDW, CBC, CMP, MORPH, DIFF #### [address] [address] Monocyte %, Manual 4.0 % Normal 1.7-13.0 [facility] ([place]) Comment on above: Performed By: #### G FR, MG, LIP, MDW, CBC, CMP, MORPH, DIFF #### [address] [address] Monocyte, Abs Manual 0.3 10 3/mcL Normal 0.2-1.0 [facility] ([place]) Comment on above: Performed By: #### G FR, MG, LIP, MDW, CBC, CMP, MORPH, DIFF #### [address] [address] Neutrophil %, Manual 62.0 % Normal 37.0-80.0 [facility] ([place]) Comment on above: Performed By: #### G FR, MG, LIP, MDW, CBC, CMP, MORPH, DIFF #### [address] [address] Neutrophil, Abs Manual 4.1 10 3/mcL Normal 2.9-6.2 [facility] ([place] Comment on above: Performed By: #### G FR, MG, LIP, MDW, CBC, CMP, MORPH, DIFF #### [address] [address] Nucleated RBC 0.0 /100 WBC Normal [facility] ([place]) Comment on above: Performed By: #### G FR, MG, LIP, MDW, CBC, CMP, MORPH, DIFF #### [address] [address] .Morphon 01-16-2023 Hyperseg 1+ Normal [facility] ([place]) Comment on above: Performed By: #### G FR, MG, LIP, MDW, CBC, CMP, MORPH, DIFF #### [address] [address] Ovalocytes 1+ Normal [facility] ([place]) Comment on above: Performed By: #### G FR, MG, LIP, MDW, CBC, CMP, MORPH, DIFF #### [address] [address] Platelet Estimate Normal Normal [facility] ([place]) Comment on above: Performed By: #### G FR, MG, LIP, MDW, CBC, CMP, MORPH, DIFF #### [address] [address] CBCon 01-16-2023 Erythrocyte distribution width (RBC) [Ratio] 17.1 % High 11.5-14.5 [facility] ([place]) Comment on above: Performed By: #### G FR, MG, LIP, MDW, CBC, CMP, MORPH, DIFF #### [address] [address] Hematocrit (Bld) [Volume fraction] 34.2 % Low 42.0-52.0 [facility] ([place] Comment on above: Performed By: #### G FR, MG, LIP, MDW, CBC, CMP, MORPH, DIFF #### [address] [address] Hgb 11.3 G/dL Low 14.0-18.0 [facility] ([place] Comment on above: Performed By: #### G FR, MG, LIP, MDW, CBC, CMP, MORPH, DIFF #### [address] [address] MCH (RBC) [Entitic mass] 26.9 pg Low 27.0-31.2 [facility] ([place] Comment on above: Performed By: #### G FR, MG, LIP, MDW, CBC, CMP, MORPH, DIFF #### [address] [address] MCHC 33.0 G/dL Normal 31.8-35.4 [facility] ([place] Comment on above: Performed By: #### G FR, MG, LIP, MDW, CBC, CMP, MORPH, DIFF #### [address] [address] MCV (RBC) [Entitic vol] 81.3 fL Normal 80.0-94.0 [facility] ([place]) Comment on above: Performed By: #### G FR, MG, LIP, MDW, CBC, CMP, MORPH, DIFF #### [address] [address] Platelet 300 10 3/mcL Normal 130-400 [facility] ([place]) Comment on above: Performed By: #### G FR, MG, LIP, MDW, CBC, CMP, MORPH, DIFF #### [place] [address] Platelet mean volume (Bld) [Entitic vol] 7.7 fL Normal 7.4-10.4 [facility] ([place] Comment on above: Performed By: #### G FR, MG, LIP, MDW, CBC, CMP, MORPH, DIFF #### [place] [address] RBC 4.20 10 6/mcL Normal 4.04-6.13 [facility] ([place] Comment on above: Performed By: #### G FR, MG, LIP, MDW, CBC, CMP, MORPH, DIFF #### [place] [address] WBC 6.7 10 3/mcL Normal 4.6-10.8 [facility] ([place] Comment on above: Performed By: #### G FR, MG, LIP, MDW, CBC, CMP, MORPH, DIFF #### [place] [address] CMPon 01-16-2023 Albumin Level 3.3 G/dL Low 3.4-4.8 [facility]) Comment on above: Performed By: #### G FR, MG, LIP, MDW, CBC, CMP, MORPH, DIFF #### [place] [id number] Albumin/Globulin [Mass ratio] 1.2 {ratio} Normal 1.1-2.5 [facility]) Comment on above: Performed By: #### G FR, MG, LIP, MDW, CBC, CMP, MORPH, DIFF #### [place] [id number] ALP [Catalytic activity/Vol] 48 U/L Normal 40-135 [facility] ([place] Comment on above: Performed By: #### G FR, MG, LIP, MDW, CBC, CMP, MORPH, DIFF #### [place] [id number] ALT [Catalytic activity/Vol] 18 U/L Normal 16-63 [facility] ([place] Comment on above: Performed By: #### G FR, MG, LIP, MDW, CBC, CMP, MORPH, DIFF #### [address] [address] AST [Catalytic activity/Vol] 20 U/L Normal 10-40 [facility] ([place] Comment on above: Performed By: #### G FR, MG, LIP, MDW, CBC, CMP, MORPH, DIFF #### [address] [address] Bili Total 0.4 mg/dL Normal 0.2-1.0 [facility] ([place]) Comment on above: Result Comment: Use of this assay is not recommended for patients undergoing treatment with eltrombopag due to the potential for falsely elevated results. Performed By: #### G FR, MG, LIP, MDW, CBC, CMP, MORPH, DIFF #### [address] [address] BUN/Creatinine Ratio 9 ratio Normal 7-27 [facility] ([place]) Comment on above: Performed By: #### G FR, MG, LIP, MDW, CBC, CMP, MORPH, DIFF #### [address] [address] Calcium [Mass/Vol] 8.8 mg/dL Normal 8.4-10.2 [facility] ([place]) Comment on above: Performed By: #### G FR, MG, LIP, MDW, CBC, CMP, MORPH, DIFF #### [address] [address] Chloride [Moles/Vol] 107 mmol/L Normal 98-107 [facility] ([place]) Comment on above: Performed By: #### G FR, MG, LIP, MDW, CBC, CMP, MORPH, DIFF #### [address] [address] CO2 [Moles/Vol] 25 mmol/L Normal 23-31 [facility] ([place]) Comment on above: Performed By: #### G FR, MG, LIP, MDW, CBC, CMP, MORPH, DIFF #### [address] [address] Creatinine [Mass/Vol] 1.02 mg/dL Normal 0.70-1.30 [facility] ([place]) Comment on above: Performed By: #### G FR, MG, LIP, MDW, CBC, CMP, MORPH, DIFF #### [address] [address] Electrolyte Balance 10.0 mEq/L Normal 4.0-15.0 [facility] ([place]) Comment on above: Performed By: #### G FR, MG, LIP, MDW, CBC, CMP, MORPH, DIFF #### [address] [address] Globulin 2.7 G/dL Normal [facility] ([place]) Comment on above: Performed By: #### G FR, MG, LIP, MDW, CBC, CMP, MORPH, DIFF #### [address] [address] Glucose [Mass/Vol] 101 mg/dL Normal 80-115 [facility] ([place]) Comment on above: Performed By: #### G FR, MG, LIP, MDW, CBC, CMP, MORPH, DIFF #### [address] [address] Potassium [Moles/Vol] 3.7 mmol/L Normal 3.5-5.1 [facility] ([place]) Comment on above: Performed By: #### G FR, MG, LIP, MDW, CBC, CMP, MORPH, DIFF #### [address] [address] Sodium [Moles/Vol] 142 mmol/L Normal 136-145 [facility] ([place]) Comment on above: Performed By: #### G FR, MG, LIP, MDW, CBC, CMP, MORPH, DIFF #### [address] [address] Total Protein 6.0 G/dL Low 6.4-8.2 [facility] ([place]) Comment on above: Performed By: #### G FR, MG, LIP, MDW, CBC, CMP, MORPH, DIFF #### [address] [address] Urea nitrogen [Mass/Vol] 9 mg/dL Normal 7-18 [facility] ([place]) Comment on above: Performed By: #### G FR, MG, LIP, MDW, CBC, CMP, MORPH, DIFF #### [address] [address] MGon 01-16-2023 Magnesium [Mass/Vol] 1.4 mg/dL Low 1.8-2.4 [facility] ([place]) Comment on above: Performed By: #### G FR, MG, LIP, MDW, CBC, CMP, MORPH, DIFF #### [address] [address] .Auto Diffon 01-15-2023 Basophil, Absolute 0.3 10 3/mcL High 0.0-0.2 [facility] ([place]) Comment on above: Performed By: #### G FR, MG, LIP, MDW, CBC, CMP, MORPH, DIFF #### [address] [address] Basophils/100 WBC (Bld) 1.5 % Normal 0.0-2.5 A [facility] ([place]) Comment on above: Performed By: #### G FR, MG, LIP, MDW, CBC, CMP, MORPH, DIFF #### [address] [address] Eosinophil, Absolute 0.2 10 3/mcL Normal 0.0-0.4 [facility] ([place]) Comment on above: Performed By: #### G FR, MG, LIP, MDW, CBC, CMP, MORPH, DIFF #### [address] [address] Eosinophils/100 WBC (Bld) 1.0 % Normal 0.0-7.0 [facility] ([place]) Comment on above: Performed By: #### G FR, MG, LIP, MDW, CBC, CMP, MORPH, DIFF #### [address] [address] Lymphocyte, Absolute 2.1 10 3/mcL Normal 0.8-3.9 [facility] ([place]) Comment on above: Performed By: #### G FR, MG, LIP, MDW, CBC, CMP, MORPH, DIFF #### [address] [address] Lymphocytes/100 WBC (Bld) 11.4 % Normal 10.0-50.0 [facility] ([place]) Comment on above: Performed By: #### G FR, MG, LIP, MDW, CBC, CMP, MORPH, DIFF #### [address] [address] Monocyte, Absolute 0.9 10 3/mcL Normal 0.2-1.0 [facility] ([place]) Comment on above: Performed By: #### G FR, MG, LIP, MDW, CBC, CMP, MORPH, DIFF #### [address] [address] Monocytes/100 WBC (Bld) 4.7 % Normal 1.7-13.0 A [facility] ([place]) Comment on above: Performed By: #### G FR, MG, LIP, MDW, CBC, CMP, MORPH, DIFF #### [address] [address] Neutrophils/100 WBC (Bld) 81.4 % High 37.0-80.0 [facility] ([place]) Comment on above: Performed By: #### G FR, MG, LIP, MDW, CBC, CMP, MORPH, DIFF #### [address] [address] .GFRon 01-15-2023 GFR 72 ml/min/1.73sqm Normal [facility] ([place]) Comment on above: Result Comment: GFR Population mean for , Non- Americans Ages 20-29 = 116 mL/min/1.73 sq.m. Ages 30-39 = 107 mL/min/1.73 sq.m. Ages 40-49 = 99 mL/min/1.73 sq.m. Ages 50-59 = 93 mL/min/1.73 sq.m. Ages 60-69 = 85 mL/min/1.73 sq.m. Ages 70+ = 75 mL/min/1.73 sq.m. Chronic Kidney Disease: Less than 60 mL/min/1.73 square meters End Stage Renal Disease: Less than 15 mL/min/1.73 square meters Performed By: #### G FR, MG, LIP, MDW, CBC, CMP, MORPH, DIFF #### [address] [address] GFR Non- 59 ml/min/1.73sqm Normal [facility] ([place]) Comment on above: Result Comment: GFR Population mean for , Non- Americans Ages 20-29 = 116 mL/min/1.73 sq.m. Ages 30-39 = 107 mL/min/1.73 sq.m. Ages 40-49 = 99 mL/min/1.73 sq.m. Ages 50-59 = 93 mL/min/1.73 sq.m. Ages 60-69 = 85 mL/min/1.73 sq.m. Ages 70+ = 75 mL/min/1.73 sq.m. Chronic Kidney Disease: Less than 60 mL/min/1.73 square meters End Stage Renal Disease: Less than 15 mL/min/1.73 square meters Performed By: #### G FR, MG, LIP, MDW, CBC, CMP, MORPH, DIFF #### [address] [address] .MDWon 01-15-2023 Monocyte Distribution Width 21.20 High 0.00-20.00 [facility] ([place]) Comment on above: Result Comment: For adults in ED, MDW>20.0 may be associated with a higher risk of sepsis during the first 12hrs of hospital admission Performed By: #### G FR, MG, LIP, MDW, CBC, CMP, MORPH, DIFF #### [address] [address] .NEUABSon 01-15-2023 Neutrophil, Absolute 15.3 10 3/mcL High 2.9-6.2 A [facility] ([place]) Comment on above: Performed By: #### G FR, MG, LIP, MDW, CBC, CMP, MORPH, DIFF #### [address] [address] .Urinalysis Microscopic (AO) on 01-15-2023 UA Coarse Granular Casts 0-5 Abnormal [facility] ([place]) Comment on above: Performed By: #### G FR, MG, LIP, MDW, CBC, CMP, MORPH, DIFF #### [address] [address] UA Hyal Cast 10-15 Abnormal [facility] ([place]) Comment on above: Performed By: #### G FR, MG, LIP, MDW, CBC, CMP, MORPH, DIFF #### [address] [address] UA Bacteria 1+ /hpf Abnormal [facility] ([place]) Comment on above: Performed By: #### G FR, MG, LIP, MDW, CBC, CMP, MORPH, DIFF #### [address] [address] UA Mucous 1+ /hpf Normal [facility] ([place]) Comment on above: Performed By: #### G FR, MG, LIP, MDW, CBC, CMP, MORPH, DIFF #### [address] [address] UA RBC 5-10 Abnormal None Seen [facility] ([place]) Comment on above: Performed By: #### G FR, MG, LIP, MDW, CBC, CMP, MORPH, DIFF #### [address] [address] UA Squam Epithelial 0-5 Abnormal None Seen [facility] ([place]) Comment on above: Performed By: #### G FR, MG, LIP, MDW, CBC, CMP, MORPH, DIFF #### [address] [address] UA WBC 5-10 Abnormal None Seen [facility] ([place]) Comment on above: Performed By: #### G FR, MG, LIP, MDW, CBC, CMP, MORPH, DIFF #### [place] [address] UA Yeast Trace Abnormal [facility] ([place]) Comment on above: Performed By: #### G FR, MG, LIP, MDW, CBC, CMP, MORPH, DIFF #### [place] [address] CBCon 01-15-2023 Erythrocyte distribution width (RBC) [Ratio] 18.0 % High 11.5-14.5 [facility] ([place]) Comment on above: Performed By: #### G FR, MG, LIP, MDW, CBC, CMP, MORPH, DIFF #### [place] [address] Hematocrit (Bld) [Volume fraction] 42.0 % Normal 42.0-52.0 [facility] ([place]) Comment on above: Performed By: #### G FR, MG, LIP, MDW, CBC, CMP, MORPH, DIFF #### [place] [address] Hgb 13.6 G/dL Low 14.0-18.0 [facility] ([place]) Comment on above: Performed By: #### G FR, MG, LIP, MDW, CBC, CMP, MORPH, DIFF #### [place] [address] MCH (RBC) [Entitic mass] 26.2 pg Low 27.0-31.2 [facility] ([place]) Comment on above: Performed By: #### G FR, MG, LIP, MDW, CBC, CMP, MORPH, DIFF #### [place] [address] MCHC 32.4 G/dL Normal 31.8-35.4 [facility] ([place]) Comment on above: Performed By: #### G FR, MG, LIP, MDW, CBC, CMP, MORPH, DIFF #### [place] [address] MCV (RBC) [Entitic vol] 80.8 fL Normal 80.0-94.0 A [facility] ([place]) Comment on above: Performed By: #### G FR, MG, LIP, MDW, CBC, CMP, MORPH, DIFF #### [address] [address] Platelet 492 10 3/mcL High 130-400 [facility] ([place]) Comment on above: Performed By: #### G FR, MG, LIP, MDW, CBC, CMP, MORPH, DIFF #### [address] [address] Platelet mean volume (Bld) [Entitic vol] 8.7 fL Normal 7.4-10.4 [facility] ([place]) Comment on above: Performed By: #### G FR, MG, LIP, MDW, CBC, CMP, MORPH, DIFF #### [address] [address] RBC 5.20 10 6/mcL Normal 4.04-6.13 [facility] ([place]) Comment on above: Performed By: #### G FR, MG, LIP, MDW, CBC, CMP, MORPH, DIFF #### [address] [address] WBC 18.8 10 3/mcL High 4.6-10.8 [facility] ([place]) Comment on above: Performed By: #### G FR, MG, LIP, MDW, CBC, CMP, MORPH, DIFF #### [address] [address] CMPon 01-15-2023 AST [Catalytic activity/Vol] 25 U/L Normal 10-40 [facility] ([place]) Comment on above: Performed By: #### G FR, MG, LIP, MDW, CBC, CMP, MORPH, DIFF #### [address] [address] Calcium [Mass/Vol] 10.8 mg/dL High 8.4-10.2 [facility] ([place]) Comment on above: Performed By: #### G FR, MG, LIP, MDW, CBC, CMP, MORPH, DIFF #### [address] [address] Albumin Level 4.4 G/dL Normal 3.4-4.8 [facility] ([place]) Comment on above: Performed By: #### G FR, MG, LIP, MDW, CBC, CMP, MORPH, DIFF #### [address] [address] Albumin/Globulin [Mass ratio] 1.3 {ratio} Normal 1.1-2.5 [facility] ([place]) Comment on above: Performed By: #### G FR, MG, LIP, MDW, CBC, CMP, MORPH, DIFF #### [address] [address] ALP [Catalytic activity/Vol] 72 U/L Normal 40-135 [facility] ([place]) Comment on above: Performed By: #### G FR, MG, LIP, MDW, CBC, CMP, MORPH, DIFF #### [address] [address] ALT [Catalytic activity/Vol] 16 U/L Normal 16-63 [facility] ([place]) Comment on above: Performed By: #### G FR, MG, LIP, MDW, CBC, CMP, MORPH, DIFF #### [address] [address] Bili Total 0.3 mg/dL Normal 0.2-1.0 [facility] ([place]) Comment on above: Result Comment: Use of this assay is not recommended for patients undergoing treatment with eltrombopag due to the potential for falsely elevated results. Performed By: #### G FR, MG, LIP, MDW, CBC, CMP, MORPH, DIFF #### [address] [address] BUN/Creatinine Ratio 11 ratio Normal 7-27 [facility] ([place]) Comment on above: Performed By: #### G FR, MG, LIP, MDW, CBC, CMP, MORPH, DIFF #### [address] [address] Chloride [Moles/Vol] 104 mmol/L Normal 98-107 [facility] ([place]) Comment on above: Performed By: #### G FR, MG, LIP, MDW, CBC, CMP, MORPH, DIFF #### [address] [address] CO2 [Moles/Vol] 25 mmol/L Normal 23-31 [facility] ([place]) Comment on above: Performed By: #### G FR, MG, LIP, MDW, CBC, CMP, MORPH, DIFF #### [address] [address] Creatinine [Mass/Vol] 1.23 mg/dL Normal 0.70-1.30 [facility] ([place]) Comment on above: Performed By: #### G FR, MG, LIP, MDW, CBC, CMP, MORPH, DIFF #### [address] [address] Electrolyte Balance 14.0 mEq/L Normal 4.0-15.0 [facility] ([place]) Comment on above: Performed By: #### G FR, MG, LIP, MDW, CBC, CMP, MORPH, DIFF #### [address] [address] Globulin 3.5 G/dL Normal [facility] ([place]) Comment on above: Performed By: #### G FR, MG, LIP, MDW, CBC, CMP, MORPH, DIFF #### [address] [address] Glucose [Mass/Vol] 133 mg/dL High 80-115 [facility] ([place]) Comment on above: Performed By: #### G FR, MG, LIP, MDW, CBC, CMP, MORPH, DIFF #### [address] [address] Potassium [Moles/Vol] 3.8 mmol/L Normal 3.5-5.1 [facility] ([place]) Comment on above: Performed By: #### G FR, MG, LIP, MDW, CBC, CMP, MORPH, DIFF #### [address] [address] Sodium [Moles/Vol] 143 mmol/L Normal 136-145 [facility] ([place]) Comment on above: Performed By: #### G FR, MG, LIP, MDW, CBC, CMP, MORPH, DIFF #### [place] [address] [place], [place] [address] Total Protein 7.9 G/dL Normal 6.4-8.2 [facility] ([place]) Comment on above: Performed By: #### G FR, MG, LIP, MDW, CBC, CMP, MORPH, DIFF #### [place] [address] [place], [place] [address] Urea nitrogen [Mass/Vol] 14 mg/dL Normal 7-18 [facility] ([place]) Comment on above: Performed By: #### G FR, MG, LIP, MDW, CBC, CMP, MORPH, DIFF #### [address] [address] [address] ABD/PELVIS W/ IV CONTRAST ONLYon 01-15-2023 CT ABD/PELVIS W/ IV CONTRAST ONLY ORIGINAL EXAMINATION: CT OF THE ABDOMEN AND PELVIS WITH CONTRAST 01/15/2023 4:04 am TECHNIQUE: CT of the abdomen and pelvis was performed with the administration of intravenous contrast. Multiplanar reformatted images are provided for review. Automated exposure control, iterative reconstruction, and/or weight based adjustment of the mA/kV was utilized to reduce the radiation dose to as low as reasonably achievable. COMPARISON: CT abdomen/pelvis 06/25/2022. HISTORY: ORDERING SYSTEM PROVIDED HISTORY: Reason for Exam: pain FINDINGS: Lung bases are clear. Moderate hiatal hernia is noted. Liver, spleen, pancreas demonstrate no acute findings. There is bilateral adrenal thickening noted which is stable. There appear to be several small adrenal nodules which also appear unchanged. Kidneys enhance symmetrically, bilateral stable benign-appearing renal cysts are noted, the largest of which measures up to 7.5 cm extending off the lower pole of the left kidney.. Indeterminate 2.6 cm cyst in the interpolar region of the right kidney and 1.3 cm region within the mid anterior left kidney are redemonstrated. No evidence of obstructive uropathy. Urinary bladder demonstrates minimal wall thickening with subtle adjacent haziness. The colon is normal in caliber. There do appear to be a few mildly distended segments of small bowel in the anterior superior abdomen., no definite transition point is however identified. No intra-abdominal free air or free fluid. Atherosclerotic calcification is noted along the course of the aorta which is nonaneurysmal. Visualized osseous structures are intact. Degenerative changes are noted throughout the spine. IMPRESSION: 1. A prominent bilateral adrenal cysts, nonemergent renal ultrasound or MRI would be useful in further evaluation. 2. Stable bilateral adrenal wall thickening with suspected small bilateral adrenal nodules, findings could represent hyperplasia with underlying adenomas. Dedicated adrenal CT is suggested for further evaluation. 3. A few mildly distended segments of small bowel in the anterior mid abdomen could potentially represent ileus versus is a developing or partial small bowel obstruction, follow-up to resolution is suggested. 4. Minimal wall thickening of the urinary bladder could represent a mild infectious or inflammatory cystitis, correlation with urinalysis is suggested. RECOMMENDATIONS: Unavailable Interpreted by: Sandeep Grey MD Preliminary Report By: Sandeep Grey MD Electronically signed By Sandeep Grey MD Dictated Date: 01/15/2023 4:06:52 AM Prelim Date: 01/15/2023 4:15:44 AM Sign Date: 01/15/2023 4:15:44 AM Ordering Provider: SOBEIDA LOGAN Normal [facility] ([place]) LIPon 01-15-2023 Lipase Level 49 U/L Normal 16-77 [facility] ([place]) Comment on above: Performed By: #### G FR, MG, LIP, MDW, CBC, CMP, MORPH, DIFF #### [address] [address] UAon 01-15-2023 Color (U) Yellow Normal [facility] ([place]) Comment on above: Performed By: #### G FR, MG, LIP, MDW, CBC, CMP, MORPH, DIFF #### [place] [address] [place], [place] [address] Glucose (U) [Mass/Vol] Negative Normal Negative [facility] ([place]) Comment on above: Performed By: #### G FR, MG, LIP, MDW, CBC, CMP, MORPH, DIFF #### [place] [address] [place], [place] [address] Ketones Ql (U) Negative Normal Negative [facility] ([place]) Comment on above: Performed By: #### G FR, MG, LIP, MDW, CBC, CMP, MORPH, DIFF #### [address] [address] UA Appear Slightly Cloudy Abnormal Clear [facility] ([place]) Comment on above: Performed By: #### G FR, MG, LIP, MDW, CBC, CMP, MORPH, DIFF #### [place] [address] UA Blood Trace Abnormal Negative [facility] ([place]) Comment on above: Performed By: #### G FR, MG, LIP, MDW, CBC, CMP, MORPH, DIFF #### [place] [address] UA Leuk Est Negative Normal Negative [facility] ([place]) Comment on above: Performed By: #### G FR, MG, LIP, MDW, CBC, CMP, MORPH, DIFF #### [place] [address] UA Nitrite Negative Normal Negative [facility] ([place]) Comment on above: Performed By: #### G FR, MG, LIP, MDW, CBC, CMP, MORPH, DIFF #### [address] [address] UA pH 7.0 Normal 5.0 - 8.0 [facility] ([place]) Comment on above: Performed By: #### G FR, MG, LIP, MDW, CBC, CMP, MORPH, DIFF #### [place] [address] UA Protein 100 mg/dL Abnormal Negative [facility] ([place]) Comment on above: Performed By: #### G FR, MG, LIP, MDW, CBC, CMP, MORPH, DIFF #### [place] [address] UA Spec Grav 1.015 Normal 1.015-1.02 5 [facility] ([place]) Comment on above: Performed By: #### G FR, MG, LIP, MDW, CBC, CMP, MORPH, DIFF #### [address] [address] UA Specimen Type Clean Catch Normal [facility] ([place]) Comment on above: Performed By: #### G FR, MG, LIP, MDW, CBC, CMP, MORPH, DIFF #### [place] [address] [place], [place] [address] UA Urobilinogen 0.2 E.U./dL Normal 0.2-1.0 [facility] ([place]) Comment on above: Performed By: #### G FR, MG, LIP, MDW, CBC, CMP, MORPH, DIFF #### [place] [address] [place], [place] [address] Urobilinogen (U) [Mass/Vol] Negative Normal Negative [facility] ([place]) Comment on above: Performed By: #### G FR, MG, LIP, MDW, CBC, CMP, MORPH, DIFF #### [place] [address] [place] [address] Absolute lymphocyte countOrd ered By: Dr. Ramos on 01-01-2023 Lymphocytes Auto (Unsp spec) [#/Vol] 0.85 10*3/uL 0.83-4.51 [facility] Basophil percentageOrdered B y: Dr. Ramos on 01-01-2023 Basophils/100 WBC (Bld) 0.3 % 0-1 [facility] Bilirubin [Mass/Vol] 0.30 mg/dL 0.20-1.00 [facility] Comment on above: For patients on eltr ombopag therapy, use of Dimension [place] TBIL is not recommended. Chloride [Moles/Vol] 111 mmol/L 98-107 [facility] Eosinophils/100 WBC (Bld) 0.0 % 0-5 [facility] Glucose [Mass/Vol] 126 mg/dL 74-106 [facility] Comment on above: Fasting Glucose resu lt greater than or equal to 126 mg/dL suggests DIABETES MELLITUS per A.D.A. criteria. Neutrophils (Bld) [#/Vol] 13.2 10*3/uL 2.0-7.7 [facility] Neutrophils/100 WBC (Bld) 90.0 % 47-70 [facility] Potassium [Moles/Vol] 3.8 mmol/L 3.5-5.1 [facility] Protein [Mass/Vol] 7.4 g/dL 6.4-8.2 [facility] Sodium [Moles/Vol] 140 mmol/L 136-145 [facility] WBC (Bld) [#/Vol] 14.6 10*3/uL 4.4-11.0 [facility] Blood erythrocytes count (nu mber/volume)Ordered By: Dr. Ramos on 01-01-2023 RBC (Bld) [#/Vol] 4.71 10*6/uL 4.6-6.2 [facility] Blood hemoglobin measurement (mass/volume)Ordered By: Dr. Ramos on 01-01-2023 Hemoglobin (Bld) [Mass/Vol] 12.9 g/dL 13.0-16.5 [facility] Blood lymphocytes/100 leukoc ytesOrdered By: Dr. Ramos on 01-01-2023 Lymphocytes/100 WBC (Bld) 5.8 % 19-41 [facility] Blood monocytes/100 leukocyt esOrdered By: Dr. Ramos on 01-01-2023 Monocytes/100 WBC (Bld) 3.1 % 0-10 [facility] Blood platelet mean volumeOr dered By: Dr. Ramos on 01-01-2023 Platelet mean volume (Bld) [Entitic vol] 10.0 fL 6.2-12.0 [facility] CNOVon 01-01-2023 CNOV Office Visit (UCWSTR ) -------- TRUONG ROSARIO III ([id number]) 1960 M Date Time Provider Department 01/01/23 1:15 PM JAGUAR KEARNEY During your visit today, we recorded the following information about you: Jaguar Kearney MD 01/01/2023 1:16 PM Signed Express Care Triage Note: Patient presents to the express care with complaint of severe nausea and vomiting since this morning. Denies severe abdominal pain or blood in emesis/stool, but he is feeling weak. Patient is persistently retching and has difficulty standing for discussion. Anti-emetic is available here, but is going to the ER for her leg numbness and pain, so she will take him too. Referring Provider: SELF [[id number]] Allergies As of Date: 01/01/2023 Noted Allergy Reaction MACROBID (NITROFURANTOIN MONOHYD/*07/26/2011 16 - Unknown MORPHINE 07/26/2011 16 - Unknown Comments: (pt states he isn't allergic) PENICILLINS 11/12/2019 11 - Vomiting Date Reviewed: 11/13/2019 Reviewed by: Charlie (Rn) CARIN Gutierrez - Fully Assessed Primary Visit Diagnosis:Nausea and vomiting, unspecified vomiting type [R11.2] Prescriptions as of 01/01/2023 - lisinopril (ZESTRIL, PRINIVIL) 20 mg tablet Take 1 tablet by mouth once daily. - metoprolol tartrate, short acting, (LOPRESSOR) 25 mg tablet Take 25 mg by mouth twice daily. - ticagrelor (BRILINTA) 60 mg tablet Take 60 mg by mouth twice daily. - magnesium oxide 200 mg magnesium tab Take 200 tablets by mouth once daily. Pt takes 2-200mg tablets once a day - VITAMIN B COMPLEX (B COMPLEX 1 ORAL) Take 1 tablet by mouth once daily. - simvastatin (ZOCOR) 40 mg tablet Take 40 mg by mouth daily at bedtime. - traZODone (DESYREL) 50 mg tablet Take 75 mg by mouth daily at bedtime. - amLODIPine (NORVASC) 10 mg tablet Take 10 mg by mouth once daily. - hydroCHLOROthiazide (HYDRODIURIL, ESIDRIX) 25 mg tablet Take 25 mg by mouth once daily. - metoclopramide HCl (REGLAN) 10 mg tablet Take 10 mg by mouth four times daily. - ondansetron (ZOFRAN, HYDROCHLORIDE,) 4 mg tablet Take 4 mg by mouth every 8 hours as needed for Nausea/Vomiting. - aspirin, enteric coated (ASPIRIN, ENTERIC COATED) 81 mg EC tablet Take 1 tablet by mouth once daily. - citalopram (CELEXA) 40 mg tablet Take 40 mg by mouth once daily. Problem List As Of Date 01/01/2023 Noted Resolved Abdominal pain [R10.9] 09/12/2013 HTN (hypertension) [I10] 09/12/2013 Cyclical vomiting syndrome [R11.15] 09/12/2013 Leucocytosis [D72.829] 09/12/2013 11/13/2019 Right hip pain [M25.551] 10/20/2013 Low back pain [M54.50] 10/20/2013 Lumbar spondylosis [M47.816] 10/20/2013 Chest pain [R07.9] 10/01/2014 Nausea and vomiting [R11.2] 10/01/2014 Family history of renal cancer [Z80.51] 10/24/2016 Mental status, decreased [R41.82] 02/19/2017 Cannabinoid hyperemesis syndrome (HCC) [R11.2, *11/12/2019 Intractable nausea and vomiting [R11.2] 11/12/2019 11/13/2019 Lactic acidosis [E87.20] 11/12/2019 11/13/2019 Coronary artery disease [I25.10] 11/12/2019 Hypomagnesemia [E83.42] 11/12/2019 11/13/2019 Marijuana abuse [F12.10] 11/12/2019 Acute kidney injury (HCC) [N17.9] 11/12/2019 11/13/2019 SIRS (systemic inflammatory response syndrome) *11/12/2019 11/13/2019 Encounter Status:Closed by JAGUAR KEARNEY on 01/01/23 [facility] Determination of erythrocyte mean corpuscular volume (MCV)Ordered By: Dr. Ramos on 01-01-2023 MCV (RBC) [Entitic vol] 83.2 fL 80-94 [facility] Comment on above: [place]: 88.7 on 12/27-1600 Hematocrit Auto (Bld) [Volum e fraction]Ordered By: Dr. Ramos on 01-01-2023 Hematocrit (Bld) [Volume fraction] 39.2 % 40-54 [facility] Laboratory - Chemistry and C hemistry - challengeOrdered By: Dr. Ramos on 01-01-2023 ALP [Catalytic activity/Vol] 62 U/L 45-117 [facility] ALT [Catalytic activity/Vol] 17 U/L 16-61 [facility] CO2 [Moles/Vol] 21.0 mmol/L 21.0-32.0 [facility] Globulin (S) [Mass/Vol] 3.7 g/dL 2.2-4.2 [facility] [facility] Lipase [Catalytic activity/Vol] 166 U/L 73-393 [facility] Urea nitrogen/Creatinine [Mass ratio] 11.8 mg/mg 10-20 [facility] Laboratory - Hematology and Cell countsOrdered By: Dr. Ramos on 01-01-2023 Erythrocyte distribution width (RBC) [Entitic vol] 52.2 fL 35.1-43.9 [facility] Erythrocyte distribution width (RBC) [Ratio] 17.2 % 11.6-14.6 [facility] Immature granulocytes/100 WBC (Bld) 0.800 % 0.0-0.9 [facility] Comment on above: IG% - Immature Granu locytes (promyelocytes, myelocytes and metamyelocytes) > 1% indicates that a LEFT SHIFT is Present. MCH (RBC) [Entitic mass] 27.4 pg 27.0-32.0 [facility] Nucleated RBC/100 WBC (Bld) [Ratio] 0 % 0-5 [facility] MCHC Auto (RBC) [Mass/Vol]Or dered By: Dr. Ramos on 01-01-2023 MCHC (RBC) [Mass/Vol] 32.9 g/dL 32-36 [facility] Comment on above: Delta: 30.5 on 12/27-1600 No Panel InformationOrdered By: Dr. Ramos on 01-01-2023 Estimated Creatinine Clearance Calc 64.75 ml/min [facility] Estimated GFR (MDRD) Amer 79 mL/min >60 [facility] Comment on above: GFR Calc Estimated GFR (MDRD) Non-Af Amer 65 mL/min >60 [facility] Comment on above: Non- GFR Calc Platelets bldOrdered By: Dr. Ramos on 01-01-2023 Platelets (Bld) [#/Vol] 410 10*3/uL 150-450 [facility] Serum or plasma albumin madelyn urement (mass/volume)Ordered By: Dr. Ramos on 01-01-2023 Albumin [Mass/Vol] 3.7 g/dL 3.2-5.0 [facility] Serum or plasma albumin/glob ulin mass ratioOrdered By: Dr. Ramos on 01-01-2023 Albumin/Globulin [Mass ratio] 1.0 {ratio} 0.9-2.4 [facility] Serum or plasma calcium madelyn urement (mass/volume)Ordered By: Dr. Ramos on 01-01-2023 Calcium [Mass/Vol] 9.5 mg/dL 8.5-10.1 [facility] Serum or plasma creatinine m easurement (mass/volume)Ordered By: Dr. Ramos on 01-01-2023 Creatinine [Mass/Vol] 1.19 mg/dL 0.70-1.30 [facility] Comment on above: The validity of the calculated GFR & GFRAA in patients over 70 years has not been determined. Clinical correlation is essential. Serum or plasma urea nitroge n measurement (mass/volume)Ordered By: Dr. Ramos on 01-01-2023 Urea nitrogen [Mass/Vol] 14 mg/dL 7-18 [facility] Thin prep Papanicolaou smear with manual screeningOrdered By: Dr. Ramos on 01-01-2023 Thin prep Papanicolaou smear with manual screening 15 U/L 15-37 [facility] Thin prep Papanicolaou smear with manual screening 8 5-15 [facility] Absolute lymphocyte countOrd ered By: ED PROVIDER on 12-27-2022 Lymphocytes Auto (Unsp spec) [#/Vol] 1.02 10*3/uL 0.83-4.51 [facility] Basophil percentageOrdered B y: Dr. Maldonado on 12-27-2022 Bilirubin [Mass/Vol] 0.40 mg/dL 0.20-1.00 [facility] Comment on above: For patients on eltr ombopag therapy, use of Dimension [place] TBIL is not recommended. Protein [Mass/Vol] 8.0 g/dL 6.4-8.2 [facility] Basophil percentageOrdered B y: ED PROVIDER on 12-27-2022 Basophils/100 WBC (Bld) 0.3 % 0-1 [facility] Chloride [Moles/Vol] 109 mmol/L 98-107 [facility] Eosinophils/100 WBC (Bld) 0.1 % 0-5 [facility] Glucose [Mass/Vol] 162 mg/dL 74-106 [facility] Comment on above: Fasting Glucose resu lt greater than or equal to 126 mg/dL suggests DIABETES MELLITUS per A.D.A. criteria. Neutrophils (Bld) [#/Vol] 13.3 10*3/uL 2.0-7.7 [facility] Neutrophils/100 WBC (Bld) 88.9 % 47-70 [facility] Potassium [Moles/Vol] 4.7 mmol/L 3.5-5.1 [facility] Comment on above: Moderate Hemolysis, Result may be falsely increased. Sodium [Moles/Vol] 136 mmol/L 136-145 [facility] WBC (Bld) [#/Vol] 15.0 10*3/uL 4.4-11.0 [facility] Blood erythrocytes count (nu mber/volume)Ordered By: ED PROVIDER on 12-27-2022 RBC (Bld) [#/Vol] 4.95 10*6/uL 4.6-6.2 [facility] Blood hemoglobin measurement (mass/volume)Ordered By: ED PROVIDER on 12-27-2022 Hemoglobin (Bld) [Mass/Vol] 13.4 g/dL 13.0-16.5 [facility] Blood lymphocytes/100 leukoc ytesOrdered By: ED PROVIDER on 12-27-2022 Lymphocytes/100 WBC (Bld) 6.8 % 19-41 [facility] Blood monocytes/100 leukocyt esOrdered By: ED PROVIDER on 12-27-2022 Monocytes/100 WBC (Bld) 3.3 % 0-10 [facility] Blood platelet mean volumeOr dered By: ED PROVIDER on 12-27-2022 Platelet mean volume (Bld) [Entitic vol] 9.7 fL 6.2-12.0 [facility] Determination of erythrocyte mean corpuscular volume (MCV)Ordered By: ED PROVIDER on 12-27-2022 MCV (RBC) [Entitic vol] 88.7 fL 80-94 [facility] Direct bilirubinOrdered By: Dr. Maldonado on 12-27-2022 Bilirubin.direct [Mass/Vol] 0.08 mg/dL 0.00-0.30 [facility] Hematocrit Auto (Bld) [Volum e fraction]Ordered By: ED PROVIDER on 12-27-2022 Hematocrit (Bld) [Volume fraction] 43.9 % 40-54 [facility] Laboratory - Chemistry and C hemistry - challengeOrdered By: Dr. Maldonado on 12-27-2022 ALP [Catalytic activity/Vol] 64 U/L 45-117 [facility] ALT [Catalytic activity/Vol] 18 U/L 16-61 [facility] Globulin (S) [Mass/Vol] 3.9 g/dL 2.2-4.2 [facility] Lipase [Catalytic activity/Vol] 100 U/L 73-393 [facility] Laboratory - Chemistry and C hemistry - challengeOrdered By: ED PROVIDER on 12-27-2022 CO2 [Moles/Vol] 17.0 mmol/L 21.0-32.0 [facility] Urea nitrogen/Creatinine [Mass ratio] 7.3 mg/mg 10-20 [facility] Laboratory - Hematology and Cell countsOrdered By: ED PROVIDER on 12-27-2022 Erythrocyte distribution width (RBC) [Entitic vol] 57.4 fL 35.1-43.9 [facility] Erythrocyte distribution width (RBC) [Ratio] 17.6 % 11.6-14.6 [facility] Immature granulocytes/100 WBC (Bld) 0.600 % 0.0-0.9 [facility] Comment on above: IG% - Immature Granu locytes (promyelocytes, myelocytes and metamyelocytes) > 1% indicates that a LEFT SHIFT is Present. MCH (RBC) [Entitic mass] 27.1 pg 27.0-32.0 [facility] Nucleated RBC/100 WBC (Bld) [Ratio] 0 % 0-5 [facility] MCHC Auto (RBC) [Mass/Vol]Or dered By: ED PROVIDER on 12-27-2022 MCHC (RBC) [Mass/Vol] 30.5 g/dL 32-36 [facility] No Panel InformationOrdered By: ED PROVIDER on 12-27-2022 Estimated GFR (MDRD) Amer 75 mL/min >60 [facility] Comment on above: GFR Calc Estimated GFR (MDRD) Non-Af Amer 62 mL/min >60 [facility] Comment on above: Non- GFR Calc Platelets bldOrdered By: ED PROVIDER on 12-27-2022 Platelets (Bld) [#/Vol] 503 10*3/uL 150-450 [facility] Serum or plasma albumin madelyn urement (mass/volume)Ordered By: Dr. Maldonado on 12-27-2022 Albumin [Mass/Vol] 4.1 g/dL 3.2-5.0 [facility] Serum or plasma calcium madelyn urement (mass/volume)Ordered By: ED PROVIDER on 12-27-2022 Calcium [Mass/Vol] 10.1 mg/dL 8.5-10.1 [facility] Serum or plasma creatinine m easurement (mass/volume)Ordered By: ED PROVIDER on 12-27-2022 Creatinine [Mass/Vol] 1.24 mg/dL 0.70-1.30 [facility] Comment on above: The validity of the calculated GFR & GFRAA in patients over 70 years has not been determined. Clinical correlation is essential. Serum or plasma urea nitroge n measurement (mass/volume)Ordered By: ED PROVIDER on 12-27-2022 Urea nitrogen [Mass/Vol] 9 mg/dL 7-18 [facility] Thin prep Papanicolaou smear with manual screeningOrdered By: Dr. Maldonado on 12-27-2022 Thin prep Papanicolaou smear with manual screening 31 U/L 15-37 [facility] Comment on above: Moderate Hemolysis, Result may be falsely increased. Thin prep Papanicolaou smear with manual screeningOrdered By: ED PROVIDER on 12-27-2022 Thin prep Papanicolaou smear with manual screening 10 5-15 [facility] Absolute lymphocyte countOrd ered By: Dr. Lane on 12-06-2022 Lymphocytes Auto (Unsp spec) [#/Vol] 0.76 10*3/uL 0.83-4.51 [facility] Basophil percentageOrdered B y: Dr. Lane on 12-06-2022 Basophils/100 WBC (Bld) 0.4 % 0-1 [facility] Bilirubin [Mass/Vol] 0.30 mg/dL 0.20-1.00 [facility] Comment on above: For patients on eltr ombopag therapy, use of Dimension [place] TBIL is not recommended. Chloride [Moles/Vol] 108 mmol/L 98-107 [facility] Eosinophils/100 WBC (Bld) 0.2 % 0-5 [facility] Glucose [Mass/Vol] 117 mg/dL 74-106 [facility] Comment on above: Fasting Glucose resu lt from 100 to 125 mg/dL suggests IMPAIRED HOMEOSTASIS per A.D.A. criteria. Neutrophils (Bld) [#/Vol] 9.3 10*3/uL 2.0-7.7 [facility] Neutrophils/100 WBC (Bld) 89.1 % 47-70 [facility] Potassium [Moles/Vol] 4.1 mmol/L 3.5-5.1 [facility] Comment on above: Moderate Hemolysis, Result may be falsely increased. Protein [Mass/Vol] 7.6 g/dL 6.4-8.2 [facility] Sodium [Moles/Vol] 141 mmol/L 136-145 [facility] WBC (Bld) [#/Vol] 10.4 10*3/uL 4.4-11.0 [facility] Blood erythrocytes count (nu mber/volume)Ordered By: Dr. Lane on 12-06-2022 RBC (Bld) [#/Vol] 4.69 10*6/uL 4.6-6.2 [facility] Blood hemoglobin measurement (mass/volume)Ordered By: Dr. Lane on 12-06-2022 Hemoglobin (Bld) [Mass/Vol] 12.7 g/dL 13.0-16.5 [facility] Blood lymphocytes/100 leukoc ytesOrdered By: Dr. Lane on 12-06-2022 Lymphocytes/100 WBC (Bld) 7.3 % 19-41 [facility] Blood monocytes/100 leukocyt esOrdered By: Dr. Lane on 12-06-2022 Monocytes/100 WBC (Bld) 2.5 % 0-10 [facility] Blood platelet mean volumeOr dered By: Dr. Lane on 12-06-2022 Platelet mean volume (Bld) [Entitic vol] 9.9 fL 6.2-12.0 [facility] Determination of erythrocyte mean corpuscular volume (MCV)Ordered By: Dr. Lane on 12-06-2022 MCV (RBC) [Entitic vol] 84.4 fL 80-94 [facility] Direct bilirubinOrdered By: Dr. Lane on 12-06-2022 Bilirubin.direct [Mass/Vol] mg/dL 0.00-0.30 [facility] Hematocrit Auto (Bld) [Volum e fraction]Ordered By: Dr. Lane on 12-06-2022 Hematocrit (Bld) [Volume fraction] 39.6 % 40-54 [facility] Laboratory - Chemistry and C hemistry - challengeOrdered By: Dr. Lane on 12-06-2022 ALP [Catalytic activity/Vol] 63 U/L 45-117 [facility] ALT [Catalytic activity/Vol] 19 U/L 16-61 [facility] CO2 [Moles/Vol] 23.0 mmol/L 21.0-32.0 [facility] Globulin (S) [Mass/Vol] 3.9 g/dL 2.2-4.2 [facility] Lipase [Catalytic activity/Vol] 167 U/L 73-393 [facility] Urea nitrogen/Creatinine [Mass ratio] 11.4 mg/mg 10-20 [facility] Laboratory - Hematology and Cell countsOrdered By: Dr. Lane on 12-06-2022 Erythrocyte distribution width (RBC) [Entitic vol] 51.8 fL 35.1-43.9 [facility] Erythrocyte distribution width (RBC) [Ratio] 16.9 % 11.6-14.6 [facility] Immature granulocytes/100 WBC (Bld) 0.500 % 0.0-0.9 [facility] Comment on above: IG% - Immature Granu locytes (promyelocytes, myelocytes and metamyelocytes) > 1% indicates that a LEFT SHIFT is Present. MCH (RBC) [Entitic mass] 27.1 pg 27.0-32.0 [facility] Nucleated RBC/100 WBC (Bld) [Ratio] 0 % 0-5 [facility] MCHC Auto (RBC) [Mass/Vol]Or dered By: Dr. Lane on 12-06-2022 MCHC (RBC) [Mass/Vol] 32.1 g/dL 32-36 [facility] No Panel InformationOrdered By: Dr. Lane on 12-06-2022 Estimated Creatinine Clearance Calc 73.39 ml/min [facility] Estimated GFR (MDRD) Amer 91 mL/min >60 [facility] Comment on above: GFR Calc Estimated GFR (MDRD) Non-Af Amer 75 mL/min >60 [facility] Comment on above: Non- GFR Calc Platelets bldOrdered By: Dr. Lane on 12-06-2022 Platelets (Bld) [#/Vol] 387 10*3/uL 150-450 [facility] Serum or plasma albumin madelyn urement (mass/volume)Ordered By: Dr. Lane on 12-06-2022 Albumin [Mass/Vol] 3.7 g/dL 3.2-5.0 [facility] Serum or plasma calcium madelyn urement (mass/volume)Ordered By: Dr. Lane on 12-06-2022 Calcium [Mass/Vol] 9.5 mg/dL 8.5-10.1 [facility] Serum or plasma creatinine m easurement (mass/volume)Ordered By: Dr. Lane on 12-06-2022 Creatinine [Mass/Vol] 1.05 mg/dL 0.70-1.30 [facility] Comment on above: The validity of the calculated GFR & GFRAA in patients over 70 years has not been determined. Clinical correlation is essential. Serum or plasma urea nitroge n measurement (mass/volume)Ordered By: Dr. Lane on 12-06-2022 Urea nitrogen [Mass/Vol] 12 mg/dL 7-18 [facility] Thin prep Papanicolaou smear with manual screeningOrdered By: Dr. Lane on 12-06-2022 Thin prep Papanicolaou smear with manual screening 31 U/L 15- [facility] Comment on above: Moderate Hemolysis, Result may be falsely increased. Thin prep Papanicolaou smear with manual screening 10 - [facility] Absolute lymphocyte countOrd ered By: Dr. Yoon on 11-17-2022 Lymphocytes Auto (Unsp spec) [#/Vol] 0.78 10*3/uL 0.83-4.51 [facility] Basophil percentageOrdered B y: Dr. Yoon on 11-17-2022 Basophils/100 WBC (Bld) 0.2 % 0-1 [facility] Bilirubin [Mass/Vol] 0.50 mg/dL 0.20-1.00 [facility] Comment on above: For patients on eltr ombopag therapy, use of Dimension [place] TBIL is not recommended. Chloride [Moles/Vol] 111 mmol/L 98-107 [facility] Eosinophils/100 WBC (Bld) 0.0 % 0-5 [facility] Glucose [Mass/Vol] 149 mg/dL 74-106 [facility] Comment on above: Fasting Glucose resu lt greater than or equal to 126 mg/dL suggests DIABETES MELLITUS per A.D.A. criteria. Neutrophils (Bld) [#/Vol] 13.0 10*3/uL 2.0-7.7 [facility] Neutrophils/100 WBC (Bld) 90.3 % 47-70 [facility] Potassium [Moles/Vol] 4.0 mmol/L 3.5-5.1 [facility] Comment on above: Moderate Hemolysis, Result may be falsely increased. Protein [Mass/Vol] 8.2 g/dL 6.4-8.2 [facility] Sodium [Moles/Vol] 142 mmol/L 136-145 [facility] WBC (Bld) [#/Vol] 14.4 10*3/uL 4.4-11.0 [facility] Blood erythrocytes count (nu mber/volume)Ordered By: Dr. Yoon on 11-17-2022 RBC (Bld) [#/Vol] 5.21 10*6/uL 4.6-6.2 [facility] Blood hemoglobin measurement (mass/volume)Ordered By: Dr. Yoon on 11-17-2022 Hemoglobin (Bld) [Mass/Vol] 13.9 g/dL 13.0-16.5 [facility] Blood lymphocytes/100 leukoc ytesOrdered By: Dr. Yoon on 11-17-2022 Lymphocytes/100 WBC (Bld) 5.4 % 19-41 [facility] Blood monocytes/100 leukocyt esOrdered By: Dr. Yoon on 11-17-2022 Monocytes/100 WBC (Bld) 3.2 % 0-10 [facility] Blood platelet mean volumeOr dered By: Dr. Yoon on 11-17-2022 Platelet mean volume (Bld) [Entitic vol] 10.2 fL 6.2-12.0 [facility] Determination of erythrocyte mean corpuscular volume (MCV)Ordered By: Dr. Yoon on 11-17-2022 MCV (RBC) [Entitic vol] 82.7 fL 80-94 [facility] Hematocrit Auto (Bld) [Volum e fraction]Ordered By: Dr. Yoon on 11-17-2022 Hematocrit (Bld) [Volume fraction] 43.1 % 40-54 [facility] Laboratory - Chemistry and C hemistry - challengeOrdered By: Dr. Yoon on 11-17-2022 ALP [Catalytic activity/Vol] 64 U/L 45-117 [facility] ALT [Catalytic activity/Vol] 22 U/L 16-61 [facility] CO2 [Moles/Vol] 18.0 mmol/L 21.0-32.0 [facility] Globulin (S) [Mass/Vol] 4.0 g/dL 2.2-4.2 [facility] Lipase [Catalytic activity/Vol] 110 U/L 73-393 [facility] Urea nitrogen/Creatinine [Mass ratio] 5.3 mg/mg 10-20 [facility] Laboratory - Hematology and Cell countsOrdered By: Dr. Yoon on 11-17-2022 Erythrocyte distribution width (RBC) [Entitic vol] 51.3 fL 35.1-43.9 [facility] Erythrocyte distribution width (RBC) [Ratio] 17.2 % 11.6-14.6 [facility] Immature granulocytes/100 WBC (Bld) 0.900 % 0.0-0.9 [facility] Comment on above: IG% - Immature Granu locytes (promyelocytes, myelocytes and metamyelocytes) > 1% indicates that a LEFT SHIFT is Present. MCH (RBC) [Entitic mass] 26.7 pg 27.0-32.0 [facility] Nucleated RBC/100 WBC (Bld) [Ratio] 0 % 0-5 [facility] MCHC Auto (RBC) [Mass/Vol]Or dered By: Dr. Yoon on 11-17-2022 MCHC (RBC) [Mass/Vol] 32.3 g/dL 32-36 [facility] No Panel InformationOrdered By: Dr. Yoon on 11-17-2022 Estimated Creatinine Clearance Calc 58.82 ml/min [facility] Estimated GFR (MDRD) Amer 71 mL/min >60 [facility] Comment on above: GFR Calc Estimated GFR (MDRD) Non-Af Amer 58 mL/min >60 [facility] Comment on above: Non- GFR Calc Platelets bldOrdered By: Dr. Yoon on 11-17-2022 Platelets (Bld) [#/Vol] 464 10*3/uL 150-450 [facility] Serum or plasma albumin madelyn urement (mass/volume)Ordered By: Dr. Yoon on 11-17-2022 Albumin [Mass/Vol] 4.2 g/dL 3.2-5.0 [facility] Serum or plasma albumin/glob ulin mass ratioOrdered By: Dr. Yoon on 11-17-2022 Albumin/Globulin [Mass ratio] 1.0 {ratio} 0.9-2.4 [facility] Serum or plasma calcium madelyn urement (mass/volume)Ordered By: Dr. Yoon on 11-17-2022 Calcium [Mass/Vol] 10.3 mg/dL 8.5-10.1 [facility] Serum or plasma creatinine m easurement (mass/volume)Ordered By: Dr. Yoon on 11-17-2022 Creatinine [Mass/Vol] 1.31 mg/dL 0.70-1.30 [facility] Comment on above: The validity of the calculated GFR & GFRAA in patients over 70 years has not been determined. Clinical correlation is essential. Serum or plasma urea nitroge n measurement (mass/volume)Ordered By: Dr. Yoon on 11-17-2022 Urea nitrogen [Mass/Vol] 7 mg/dL 7-18 [facility] Thin prep Papanicolaou smear with manual screeningOrdered By: Dr. Yoon on 11-17-2022 Thin prep Papanicolaou smear with manual screening 30 U/L 15-37 [facility] Comment on above: Moderate Hemolysis, Result may be falsely increased. Thin prep Papanicolaou smear with manual screening 13 5-15 [facility] Absolute lymphocyte countOrd ered By: Dr. Maldonado on 11-11-2022 Lymphocytes Auto (Unsp spec) [#/Vol] 0.96 10*3/uL 0.83-4.51 [facility] Basophil percentageOrdered B y: Dr. Maldonado on 11-11-2022 Basophil percentage 0-5 SEEN /hpf 0-5 [facility] Basophils/100 WBC (Bld) 0.2 % 0-1 [facility] Bilirubin [Mass/Vol] 0.60 mg/dL 0.20-1.00 [facility] Comment on above: For patients on eltr ombopag therapy, use of Dimension [place] TBIL is not recommended. Chloride [Moles/Vol] 104 mmol/L 98-107 [facility] Eosinophils/100 WBC (Bld) 0.1 % 0-5 [facility] Glucose [Mass/Vol] 115 mg/dL 74-106 [facility] Comment on above: Fasting Glucose resu lt from 100 to 125 mg/dL suggests IMPAIRED HOMEOSTASIS per A.D.A. criteria. Lactate [Moles/Vol] 2.0 mmol/L 0.4-2.0 [facility] Comment on above: Critical Result(s) C alled at: 17:22:12 11/11/2022 by: Cordelia Huntley to [place]. Results read back by same. Neutrophils (Bld) [#/Vol] 16.0 10*3/uL 2.0-7.7 [facility] Neutrophils/100 WBC (Bld) 90.0 % 47-70 [facility] Potassium [Moles/Vol] 3.7 mmol/L 3.5-5.1 [facility] Protein [Mass/Vol] 7.9 g/dL 6.4-8.2 [facility] Sodium [Moles/Vol] 137 mmol/L 136-145 [facility] WBC (Bld) [#/Vol] 17.8 10*3/uL 4.4-11.0 [facility] Bilirubin Test strip Ql (U)O rdered By: Dr. Maldonado on 11-11-2022 Bilirubin Ql (U) 1 mg/dL Negative [facility] Comment on above: COLOR OF URINE MAY A FFECT DIPSTICK RESULTS. Blood erythrocytes count (nu mber/volume)Ordered By: Dr. Maldonado on 11-11-2022 RBC (Bld) [#/Vol] 4.92 10*6/uL 4.2-5.4 [facility] Blood hemoglobin measurement (mass/volume)Ordered By: Dr. Maldonado on 11-11-2022 Hemoglobin (Bld) [Mass/Vol] 13.4 g/dL 12.0-15.0 [facility] Blood lymphocytes/100 leukoc ytesOrdered By: Dr. Maldonado on 11-11-2022 Lymphocytes/100 WBC (Bld) 5.4 % 19-41 [facility] Blood monocytes/100 leukocyt esOrdered By: Dr. Maldonado on 11-11-2022 Monocytes/100 WBC (Bld) 3.6 % 0-10 [facility] Blood platelet mean volumeOr dered By: Dr. Maldonado on 11-11-2022 Platelet mean volume (Bld) [Entitic vol] 9.3 fL 6.2-12.0 [facility] Determination of erythrocyte mean corpuscular volume (MCV)Ordered By: Dr. Maldonado on 11-11-2022 MCV (RBC) [Entitic vol] 82.5 fL 81-99 [facility] Hematocrit Auto (Bld) [Volum e fraction]Ordered By: Dr. Maldonado on 11-11-2022 Hematocrit (Bld) [Volume fraction] 40.6 % 37-47 [facility] Hyaline casts LM.LPF (Urine sed) [#/Area]Ordered By: Dr. Maldonado on 11-11-2022 Hyaline casts (Urine sed) [#/Area] 10 /[LPF] 0-5 [facility] Ketones Test strip Ql (U)Ord ered By: Dr. Maldonado on 11-11-2022 Ketones Ql (U) 15 mg/dl Negative [facility] Laboratory - Chemistry and C hemistry - challengeOrdered By: Dr. Maldonado on 11-11-2022 ALP [Catalytic activity/Vol] 65 U/L 45-117 [facility] ALT [Catalytic activity/Vol] 23 U/L 13-56 [facility] CO2 [Moles/Vol] 21.0 mmol/L 21.0-32.0 [facility] Globulin (S) [Mass/Vol] 3.9 g/dL 2.2-4.2 [facility] Lipase [Catalytic activity/Vol] 141 U/L 73-393 [facility] Urea nitrogen/Creatinine [Mass ratio] 13.2 mg/mg 10-20 [facility] Laboratory - Hematology and Cell countsOrdered By: Dr. Maldonado on 11-11-2022 Erythrocyte distribution width (RBC) [Entitic vol] 48.3 fL 35.1-43.9 [facility] Erythrocyte distribution width (RBC) [Ratio] 16.1 % 11.6-14.6 [facility] Immature granulocytes/100 WBC (Bld) 0.700 % 0.0-0.9 [facility] Comment on above: IG% - Immature Granu locytes (promyelocytes, myelocytes and metamyelocytes) > 1% indicates that a LEFT SHIFT is Present. MCH (RBC) [Entitic mass] 27.2 pg 27.0-32.0 [facility] Nucleated RBC/100 WBC (Bld) [Ratio] 0 % 0-5 [facility] MCHC Auto (RBC) [Mass/Vol]Or dered By: Dr. Maldonado on 11-11-2022 MCHC (RBC) [Mass/Vol] 33.0 g/dL 32-36 [facility] Mucus LM Ql (Urine sed)Order ed By: Dr. Maldonado on 11-11-2022 Mucus Ql (Urine sed) 0 SEEN /hpf [facility] Nitrite Test strip Ql (U)Ord ered By: Dr. Maldonado on 11-11-2022 Nitrite Ql (U) Negative Negative [facility] No Panel InformationOrdered By: Dr. Maldonado on 11-11-2022 Estimated Creatinine Clearance Calc 47.64 ml/min [facility] Estimated GFR (MDRD) Amer 53 mL/min >60 [facility] Comment on above: GFR Calc Estimated GFR (MDRD) Non-Af Amer 44 mL/min >60 [facility] Comment on above: Non- GFR Calc Troponin I High Sensitivity 13 pg/mL 3.0-54.0 [facility] Comment on above: Please Note: New Jum[place] t Units and Gender Specific Reference Ranges. For more information see Policy Stat Procedure [place] High Sensitivity Troponin (TNIH) and attachments. Platelets bldOrdered By: Dr. Maldonado on 11-11-2022 Platelets (Bld) [#/Vol] 456 10*3/uL 150-450 [facility] Protein Test strip Ql (U)Ord ered By: Dr. Maldonado on 11-11-2022 Protein Ql (U) 100 mg/dl Negative [facility] Serum or plasma albumin madelyn urement (mass/volume)Ordered By: Dr. Maldonado on 11-11-2022 Albumin [Mass/Vol] 4.0 g/dL 3.2-5.0 [facility] Serum or plasma albumin/glob ulin mass ratioOrdered By: Dr. Maldonado on 11-11-2022 Albumin/Globulin [Mass ratio] 1.0 {ratio} 0.9-2.4 [facility] Serum or plasma calcium madelyn urement (mass/volume)Ordered By: Dr. Maldonado on 11-11-2022 Calcium [Mass/Vol] 9.4 mg/dL 8.5-10.1 [facility] Serum or plasma creatinine m easurement (mass/volume)Ordered By: Dr. Maldonado on 11-11-2022 Creatinine [Mass/Vol] 1.29 mg/dL 0.55-1.02 [facility] Comment on above: The validity of the calculated GFR & GFRAA in patients over 70 years has not been determined. Clinical correlation is essential. Serum or plasma urea nitroge n measurement (mass/volume)Ordered By: Dr. Maldonado on 11-11-2022 Urea nitrogen [Mass/Vol] 17 mg/dL - [facility] Squamous epithelial cells de tection in urine sediment by light microscopyOrdered By: Dr. Maldonado on 11-11-2022 Epithelial cells.squamous LM Ql (Urine sed) 0-5 SEEN /hpf 5-10 [facility] Thin prep Papanicolaou smear with manual screeningOrdered By: Dr. Maldonado on 11-11-2022 Thin prep Papanicolaou smear with manual screening 35 U/L 15-37 [facility] Thin prep Papanicolaou smear with manual screening 12 5-15 [facility] Urine blood detectionOrdered By: Dr. Maldonado on 11-11-2022 RBC Ql (U) 25 /ul Negative [facility] RBC Ql (U) 0-5 SEEN /hpf 0-5 [facility] Urine clarityOrdered By: Dr. Maldonado on 11-11-2022 Clarity (U) Sl. Cloudy Clear [facility] Urine color determinationOrd ered By: Dr. Maldonado on 11-11-2022 Color (U) Yellow Yellow [facility] Urine glucose detectionOrder ed By: Dr. Maldonado on 11-11-2022 Glucose Ql (U) Normal mg/dl Normal [facility] Urine leukocyte esterase det ection by dipstickOrdered By: Dr. Maldonado on 11-11-2022 Leukocyte esterase Test strip Ql (U) 25 /ul Negative [facility] Urine pHOrdered By: Dr. Gabriele pina on 11-11-2022 pH (U) 5.0 [pH] 5.0 - 8.0 [facility] Urine sediment bacteria coun t by microscopy (number/high power field)Ordered By: Dr. Maldonado on 11-11-2022 Bacteria LM.HPF (Urine sed) [#/Area] 0 /[HPF] None Seen [facility] Urine specific gravity measu rementOrdered By: Dr. Maldonado on 11-11-2022 Specific gravity (U) [Rel density] 1.025 1.002-1.03 0 [facility] Urobilinogen Auto test strip Ql (U)Ordered By: Dr. Maldonado on 11-11-2022 Urobilinogen Ql (U) 1 mg/dl Normal [facility] LABORATORYOrdered By: Latoya Zelaya on 06-27-2022 Albumin BCP dye [Mass/Vol] 4.5 G/dL Invalid Interpretation Code 3.4 - 4.8 G/dL AO ADM SS Albumin/Globulin [Mass ratio] 1.3 {ratio} Invalid Interpretation Code 1.1 - 2.5 ratio AO ADM SS ALP [Catalytic activity/Vol] 65 U/L Invalid Interpretation Code 40 - 135 U/L AO ADM SS ALT With P-5'-P [Catalytic activity/Vol] 28 U/L Invalid Interpretation Code 16 - 63 U/L AO ADM SS AST With P-5'-P [Catalytic activity/Vol] 42 U/L Invalid Interpretation Code 10 - 40 U/L AO ADM SS Bilirubin [Mass/Vol] 0.5 mg/dL Invalid Interpretation Code 0.2 - 1.0 mg/dL AO ADM SS Calcium [Mass/Vol] 10.6 mg/dL Invalid Interpretation Code 8.4 - 10.2 mg/dL AO ADM SS Chloride [Moles/Vol] 97 mmol/L Invalid Interpretation Code 98 - 107 mmol/L AO ADM SS CO2 [Moles/Vol] 25 mmol/L Invalid Interpretation Code 23 - 31 mmol/L AO ADM SS Creatinine [Mass/Vol] 1.34 mg/dL Invalid Interpretation Code 0.70 - 1.30 mg/dL AO ADM SS Electrolyte Balance 17.0 mEq/L Invalid Interpretation Code 4.0 - 15.0 mEq/L AO ADM SS Globulin 3.4 G/dL Invalid Interpretation Code AO ADM SS Glucose [Mass/Vol] 108 mg/dL Invalid Interpretation Code 80 - 115 mg/dL AO ADM SS Lipase [Catalytic activity/Vol] 101 U/L Invalid Interpretation Code 73 - 393 U/L AO ADM SS Potassium [Moles/Vol] 4.6 mmol/L Invalid Interpretation Code 3.5 - 5.1 mmol/L AO ADM SS Protein [Mass/Vol] 7.9 G/dL Invalid Interpretation Code 6.4 - 8.2 G/dL AO ADM SS Sodium [Moles/Vol] 139 mmol/L Invalid Interpretation Code 136 - 145 mmol/L AO ADM SS Urea nitrogen [Mass/Vol] 16 mg/dL Invalid Interpretation Code 7 - 18 mg/dL AO ADM SS Urea nitrogen/Creatinine [Mass ratio] 12 ratio Invalid Interpretation Code 7 - 27 ratio AO ADM SS LABORATORYOrdered By: Cristina Hawley on 06-27-2022 Basophil, Absolute 0.0 103/mcL Invalid Interpretation Code 0.0 - 0.2 10^3/mcL AO Workflow SS Basophils/100 WBC (Bld) 0.3 % Invalid Interpretation Code 0.0 - 2.5 % AO Workflow SS Eosinophil, Absolute 0.0 103/mcL Invalid Interpretation Code 0.0 - 0.4 10^3/mcL AO Workflow SS Eosinophils/100 WBC (Bld) 0.1 % Invalid Interpretation Code 0.0 - 7.0 % AO Workflow SS Erythrocyte distribution width (RBC) [Ratio] 17.5 % Invalid Interpretation Code 11.5 - 14.5 % AO Workflow SS Hematocrit (Bld) [Volume fraction] 44.8 % Invalid Interpretation Code 42.0 - 52.0 % AO Workflow SS Hemoglobin (Bld) [Mass/Vol] 15.0 G/dL Invalid Interpretation Code 14.0 - 18.0 G/dL AO Workflow SS Lymphocyte, Absolute 0.8 103/mcL Invalid Interpretation Code 0.8 - 3.9 10^3/mcL AO Workflow SS Lymphocytes/100 WBC (Bld) 7.3 % Invalid Interpretation Code 10.0 - 50.0 % AO Workflow SS MCH (RBC) [Entitic mass] 27.0 pg Invalid Interpretation Code 27.0 - 31.2 pg AO Workflow SS MCHC 33.4 G/dL Invalid Interpretation Code 31.8 - 35.4 G/dL AO Workflow SS MCV (RBC) [Entitic vol] 80.9 fL Invalid Interpretation Code 80.0 - 94.0 fL AO Workflow SS Monocyte distribution width Auto (Bld) [Entitic vol] 17.14 Invalid Interpretation Code 0.00 - 20.00 AO Workflow SS Comment on above: Result Comment: For ED adult patients suspected of sepsis, MDW<=20.0 does not rule out sepsis or risk of sepsis Monocyte, Absolute 0.7 103/mcL Invalid Interpretation Code 0.2 - 1.0 10^3/mcL AO Workflow SS Monocytes/100 WBC (Bld) 6.3 % Invalid Interpretation Code 1.7 - 13.0 % AO Workflow SS Neutrophil, Absolute 9.3 103/mcL Invalid Interpretation Code 2.9 - 6.2 10^3/mcL AO Workflow SS Neutrophils/100 WBC (Bld) 86.0 % Invalid Interpretation Code 37.0 - 80.0 % AO Workflow SS Platelet mean volume (Bld) [Entitic vol] 8.3 fL Invalid Interpretation Code 7.4 - 10.4 fL AO Workflow SS Platelets (Bld) [#/Vol] 447 103/mcL Invalid Interpretation Code 130 - 400 10^3/mcL AO Workflow SS RBC (Bld) [#/Vol] 5.53 106/mcL Invalid Interpretation Code 4.04 - 6.13 10^6/mcL AO Workflow SS WBC (Bld) [#/Vol] 10.9 103/mcL Invalid Interpretation Code 4.6 - 10.8 10^3/mcL AO Workflow SS LABORATORYOrdered By: SYSTEM SYSTEM on 06-27-2022 GFR 65 ml/min/1.73sqm Invalid Interpretation Code AO Chemistry S GFR Non- 54 ml/min/1.73sqm Inval id Interpretation Code AO Chemistry S LABORATORYOrdered By: Cristina Chang on 06-25-2022 Appearance (U) Clear (06/25/22 3:36 PM) Invalid Interpretation Code Clear AO Auto Urine SS Bacteria LM.HPF (Urine sed) [#/Area] 2 /[HPF] Invalid Interpretation Code AO Auto Urine SS Bilirubin Ql (U) Moderate *ABN* (06/25/22 3:36 PM) Invalid Interpretation Code Negative AO Auto Urine SS Color (U) Yellow (06/25/22 3:36 PM) Invalid Interpretation Code AO Auto Urine SS Glucose Test strip (U) [Mass/Vol] Negative Invalid Interpretation Code Negativemg /dL AO Auto Urine SS Hemoglobin Auto test strip (U) [Mass/Vol] Small *ABN* (06/25/22 3:36 PM) Invalid Interpretation Code Negative AO Auto Urine SS Ketones Ql (U) 15 mg/dL Invalid Interpretation Code Negativemg /dL AO Auto Urine SS UA Fine Granular Casts 5-10 /LPF Invalid Interpretation Code AO Auto Urine SS UA Leuk Est Negative (06/25/22 3:36 PM) Invalid Interpretation Code Negative AO Auto Urine SS UA Nitrite Negative (06/25/22 3:36 PM) Invalid Interpretation Code Negative AO Auto Urine SS UA pH 5.5 (06/25/22 3:36 PM) Invalid Interpretation Code 5.0 - 8.0 AO Auto Urine SS UA Protein >=300 mg/dL Invalid Interpretation Code Negativemg /dL AO Auto Urine SS UA RBC 5-10 /HPF Invalid Interpretation Code None Seen/HPF AO Auto Urine SS UA Spec Grav >=1.030 *ABN* (06/25/22 3:36 PM) Invalid Interpretation Code 1.015-1.02 5 AO Auto Urine SS UA Specimen Type Clean Catch (06/25/22 3:36 PM) Invalid Interpretation Code AO Auto Urine SS UA Squam Epithelial 5-10 /HPF Invalid Interpretation Code None Seen/HPF AO Auto Urine SS UA Urobilinogen 0.2 E.U./dL Invalid Interpretation Code 0.2-1.0E.U ./dL AO Auto Urine SS WBC LM.HPF (Urine sed) [#/Area] 0-5 /HPF Invalid Interpretation Code None Seen/HPF AO Auto Urine SS Albumin BCP dye [Mass/Vol] 4.8 G/dL Invalid Interpretation Code 3.4 - 4.8 G/dL AO ADM SS Albumin/Globulin [Mass ratio] 1.4 {ratio} Invalid Interpretation Code 1.1 - 2.5 ratio AO ADM SS ALP [Catalytic activity/Vol] 66 U/L Invalid Interpretation Code 40 - 135 U/L AO ADM SS ALT With P-5'-P [Catalytic activity/Vol] 21 U/L Invalid Interpretation Code 16 - 63 U/L AO ADM SS AST With P-5'-P [Catalytic activity/Vol] 17 U/L Invalid Interpretation Code 10 - 40 U/L AO ADM SS Basophil, Absolute 0.0 103/mcL Invalid Interpretation Code 0.0 - 0.2 10^3/mcL AO Workflow SS Basophils/100 WBC (Bld) 0.4 % Invalid Interpretation Code 0.0 - 2.5 % AO Workflow SS Bilirubin [Mass/Vol] 0.4 mg/dL Invalid Interpretation Code 0.2 - 1.0 mg/dL AO ADM SS Calcium [Mass/Vol] 10.6 mg/dL Invalid Interpretation Code 8.4 - 10.2 mg/dL AO ADM SS Chloride [Moles/Vol] 99 mmol/L Invalid Interpretation Code 98 - 107 mmol/L AO ADM SS CO2 [Moles/Vol] 27 mmol/L Invalid Interpretation Code 23 - 31 mmol/L AO ADM SS Creatinine [Mass/Vol] 1.39 mg/dL Invalid Interpretation Code 0.70 - 1.30 mg/dL AO ADM SS Electrolyte Balance 16.0 mEq/L Invalid Interpretation Code 4.0 - 15.0 mEq/L AO ADM SS Eosinophil, Absolute 0.0 103/mcL Invalid Interpretation Code 0.0 - 0.4 10^3/mcL AO Workflow SS Eosinophils/100 WBC (Bld) 0.1 % Invalid Interpretation Code 0.0 - 7.0 % AO Workflow SS Erythrocyte distribution width (RBC) [Ratio] 17.9 % Invalid Interpretation Code 11.5 - 14.5 % AO Workflow SS Globulin 3.5 G/dL Invalid Interpretation Code AO ADM SS Glucose [Mass/Vol] 153 mg/dL Invalid Interpretation Code 80 - 115 mg/dL AO ADM SS Hematocrit (Bld) [Volume fraction] 43.7 % Invalid Interpretation Code 42.0 - 52.0 % AO Workflow SS Hemoglobin (Bld) [Mass/Vol] 14.6 G/dL Invalid Interpretation Code 14.0 - 18.0 G/dL AO Workflow SS Lipase [Catalytic activity/Vol] 126 U/L Invalid Interpretation Code 73 - 393 U/L AO ADM SS Lymphocyte, Absolute 0.5 103/mcL Invalid Interpretation Code 0.8 - 3.9 10^3/mcL AO Workflow SS Lymphocytes/100 WBC (Bld) 4.4 % Invalid Interpretation Code 10.0 - 50.0 % AO Workflow SS MCH (RBC) [Entitic mass] 26.6 pg Invalid Interpretation Code 27.0 - 31.2 pg AO Workflow SS MCHC 33.3 G/dL Invalid Interpretation Code 31.8 - 35.4 G/dL AO Workflow SS MCV (RBC) [Entitic vol] 80.1 fL Invalid Interpretation Code 80.0 - 94.0 fL AO Workflow SS Monocyte distribution width Auto (Bld) [Entitic vol] 16.24 Invalid Interpretation Code 0.00 - 20.00 AO Workflow SS Comment on above: Result Comment: For ED adult patients suspected of sepsis, MDW<=20.0 does not rule out sepsis or risk of sepsis Monocyte, Absolute 0.5 103/mcL Invalid Interpretation Code 0.2 - 1.0 10^3/mcL AO Workflow SS Monocytes/100 WBC (Bld) 4.0 % Invalid Interpretation Code 1.7 - 13.0 % AO Workflow SS Neutrophil, Absolute 10.8 103/mcL Invalid Interpretation Code 2.9 - 6.2 10^3/mcL AO Workflow SS Neutrophils/100 WBC (Bld) 91.1 % Invalid Interpretation Code 37.0 - 80.0 % AO Workflow SS Platelet mean volume (Bld) [Entitic vol] 7.7 fL Invalid Interpretation Code 7.4 - 10.4 fL AO Workflow SS Platelets (Bld) [#/Vol] 494 103/mcL Invalid Interpretation Code 130 - 400 10^3/mcL AO Workflow SS Potassium [Moles/Vol] 4.1 mmol/L Invalid Interpretation Code 3.5 - 5.1 mmol/L AO ADM SS Protein [Mass/Vol] 8.3 G/dL Invalid Interpretation Code 6.4 - 8.2 G/dL AO ADM SS RBC (Bld) [#/Vol] 5.46 106/mcL Invalid Interpretation Code 4.04 - 6.13 10^6/mcL AO Workflow SS Sodium [Moles/Vol] 142 mmol/L Invalid Interpretation Code 136 - 145 mmol/L AO ADM SS Urea nitrogen [Mass/Vol] 13 mg/dL Invalid Interpretation Code 7 - 18 mg/dL AO ADM SS Urea nitrogen/Creatinine [Mass ratio] 9 ratio Invalid Interpretation Code 7 - 27 ratio AO ADM SS WBC (Bld) [#/Vol] 11.8 103/mcL Invalid Interpretation Code 4.6 - 10.8 10^3/mcL AO Workflow SS LABORATORYOrdered By: SYSTEM SYSTEM on 06-25-2022 GFR 62 ml/min/1.73sqm Invalid Interpretation Code AO Chemistry S GFR Non- 51 ml/min/1.73sqm Inval id Interpretation Code AO Chemistry S ED Discharge Educationon ED Discharge Education Knee Pain Knee pain is a very common symptom and can have many causes. Knee pain often goes away when you follow your health care provider's instructions for relieving pain and discomfort at home. However, knee pain can develop into a condition that needs treatment. Some conditions may include: ? Arthritis caused by wear and tear (osteoarthritis). ? Arthritis caused by swelling and irritation (rheumatoid arthritis or gout). ? A cyst or growth in your knee. ? An infection in your knee joint. ? An injury that will not heal. ? Damage, swelling, or irritation of the tissues that support your knee (torn ligaments or tendinitis). If your knee pain continues, additional tests may be ordered to diagnose your condition. Tests may include X-rays or other imaging studies of your knee. You may also need to have fluid removed from your knee. Treatment for ongoing knee pain depends on the cause, but treatment may include: ? Medicines to relieve pain or swelling. ? Steroid injections in your knee. ? Physical therapy. ? Surgery. HOME CARE INSTRUCTIONS ? Take medicines only as directed by your health care provider. ? Rest your knee and keep it raised (elevated) while you are resting. ? Do not do things that cause or worsen pain. ? Avoid high-impact activities or exercises, such as running, jumping rope, or doing jumping jacks. ? Apply ice to the knee area: ? Put ice in a plastic bag. ? Place a towel between your skin and the bag. ? Leave the ice on for 20 minutes, 2?3 times a day. ? Ask your health care provider if you should wear an elastic knee support. ? Keep a pillow under your knee when you sleep. ? Lose weight if you are overweight. Extra weight can put pressure on your knee. ? Do not use any tobacco products, including cigarettes, chewing tobacco, or electronic cigarettes. If you need help quitting, ask your health care provider. Smoking may slow the healing of any bone and joint problems that you may have. SEEK MEDICAL CARE IF: ? Your knee pain continues, changes, or gets worse. ? You have a fever along with knee pain. ? Your knee dago or locks up. ? Your knee becomes more swollen. SEEK IMMEDIATE MEDICAL CARE IF: ? Your knee joint feels hot to the touch. ? You have chest pain or trouble breathing. This information is not intended to replace advice given to you by your health care provider. Make sure you discuss any questions you have with your health care provider. Document Released: 07/07/2008 Document Revised: 10/01/2015 Document Reviewed: 04/26/2015 ExitCare? Patient Information ?2016 [employer] [facility]. Normal [facility] ED Patient Summaryon 022 ED Patient Summary [facility] Emergency Department Discharge Instructions [address] [place] [address] \.br\(Patient Copy)\.br\ \.br\Name: TRUONG ROSARIO III : 1960 \.br\Allergies: Vancomycin Hydrochloride; penicillins; erythromycin; Zoloft; Macrobid\.br\Diagnosis: Diagnoses This Visit\.br\ Chronic pain of right knee (M25.561)\.br\ Knee pain-swelling ([id number])\.br\ Knee pain-swelling ([id number])\.br\\.br\ \.br\ \.br\ Visit Date: 11/26/2021 12:28:26 \.br\ Current Date Time: 11/26/2021 13:50:25 \.br\Address: [address] [place] [address] \.br\Phone: [phone] \.br\ \.br\Primary Care Provider: \.br\ Name: PRERNA LEMUS DO\.br\ \.br\ \.br\Emergency Department Care Providers: \.br\ Primary Physician: BROOKE ALBERT DO \.br\ \.br\ \.br\\.br\Thank you for choosing [facility] for your emergency care. You are very important to us. Our goal is to demonstrate our high quality medical care, and provide you with a very good patient experience.\.br\\.br\You may receive a survey about our service. Please take the time to complete the survey and return it so we can continue to enhance our service.\.br\\.br\Thank you again for allowing the [facility] Emergency Department to care for your medical needs. If you have questions about your care or follow up information please contact us at [phone].\.br\\.br\ Follow-Up Instructions\.br\ \.br\TRUONG ROSARIO III has been given these follow-up instructions:\.br\\.br\\ .br\With: Address: When: \.br\PRERNA LEMUS [address] [place] [address]\.br\ Business (1) Within 3 to 5 days \.br\\.br\\.br\\.br\\.br \ Patient Education Materials\.br\ \.br\TRUONG ROSARIO III has been given the following patient education materials:\.br\Knee Pain\.br\\.br\Knee pain is a very common symptom and can have many causes. Knee pain often goes away when you follow your health care provider's instructions for relieving pain and discomfort at home. However, knee pain can develop into a condition that needs treatment. Some conditions may include:\.br\\.br\(Inser ranjan Image. Unable to display) \.br\? Arthritis caused by wear and tear (osteoarthritis).\.br\? Arthritis caused by swelling and irritation (rheumatoid arthritis or gout).\.br\? A cyst or growth in your knee.\.br\? An infection in your knee joint.\.br\? An injury that will not heal.\.br\? Damage, swelling, or irritation of the tissues that support your knee (torn ligaments or tendinitis).\.br\If your knee pain continues, additional tests may be ordered to diagnose your condition. Tests may include X-rays or other imaging studies of your knee. You may also need to have fluid removed from your knee. Treatment for ongoing knee pain depends on the cause, but treatment may include:\.br\? Medicines to relieve pain or swelling.\.br\? Steroid injections in your knee.\.br\? Physical therapy.\.br\? Surgery.\.br\\.br\HOME CARE INSTRUCTIONS\.br\? Take medicines only as directed by your health care provider. \.br\? Rest your knee and keep it raised (elevated) while you are resting.\.br\? Do not do things that cause or worsen pain.\.br\? Avoid high-impact activities or exercises, such as running, jumping rope, or doing jumping jacks.\.br\? Apply ice to the knee area:\.br\? Put ice in a plastic bag.\.br\? Place a towel between your skin and the bag.\.br\? Leave the ice on for 20 minutes, 2?3 times a day.\.br\? Ask your health care provider if you should wear an elastic knee support.\.br\? Keep a pillow under your knee when you sleep.\.br\? Lose weight if you are overweight. Extra weight can put pressure on your knee.\.br\? Do not use any tobacco products, including cigarettes, chewing tobacco, or electronic cigarettes. If you need help quitting, ask your health care provider. Smoking may slow the healing of any bone and joint problems that you may have.\.br\\.br\SEEK MEDICAL CARE IF:\.br\? Your knee pain continues, changes, or gets worse.\.br\? You have a fever along with knee pain.\.br\? Your knee dago or locks up.\.br\? Your knee becomes more swollen.\.br\\.br\SEEK IMMEDIATE MEDICAL CARE IF:\.br\? Your knee joint feels hot to the touch.\.br\? You have chest pain or trouble breathing.\.br\This information is not intended to replace advice given to you by your health care provider. Make sure you discuss any questions you have with your health care provider.\.br\\.br\Docum ent Released: 07/07/2008 Document Revised: 10/01/2015 Document Reviewed: 04/26/2015\.br\ExitCare? Patient Information ?2015 [employer].\.br\\.br\\.br\\.br\ \.br\ \.br\BEFORE YOU LEAVE\.br\\.br\Set up your [facility] [employer] account!\.br\ \.br\[employer] is a secure, online health management tool that connects you to portions of your hospital- (more content not included)... Normal [facility] ED Physician Reporton 2021 ED Physician Report Patient: TRUONG ROSARIO III Age: 61 years Sex: Male : 1960 Associated Diagnoses: Chronic pain of right knee Author: BROOKE ALBERT DO History of Present Illness The onset was chronic. Type of injury: none. Location: Right knee. The character of symptoms is pain and swelling. The degree at present is minimal. The exacerbating factor is movement. The relieving factor is rest. Associated symptoms: denies fever and denies chills. Review of Systems Constitutional symptoms: No fever, no chills. Skin symptoms: No rash, Eye symptoms: Vision unchanged. ENMT symptoms: No sore throat, no nasal congestion. Respiratory symptoms: No shortness of breath, no cough. Cardiovascular symptoms: No chest pain, no palpitations. Gastrointestinal symptoms: No abdominal pain, no nausea, no vomiting. Genitourinary symptoms: No dysuria, Musculoskeletal symptoms: No back pain, no Joint pain. Neurologic symptoms No headache, Additional review of systems information: All other systems reviewed and otherwise negative. Health Status Allergies: Allergic Reactions (Selected) Severity Not Documented Erythromycin- No reactions were documented. Macrobid- Eyes swell/ skin discoloration. Penicillins- Hives-at age 18 and vomit. Vancomycin Hydrochloride- No reactions were documented. Zoloft- No reactions were documented.. Medications: (Selected) Prescriptions Prescribed Plavix 75 mg oral tablet: 75 mg = 1 tabs, ORAL, DAILY, 90 tabs, 3 Refill(s) TriCor: 145 mg, ORAL, DAILY WITH BREAKFAST, 30 tabs, 5 Refill(s) atorvastatin 40 mg oral tablet: 40 mg = 1 tabs, ORAL, DAILY, 30 tabs, 3 Refill(s) nitroglycerin 0.4 mg sublingual tablet: 0.4 mg = 1 tabs, Sublingual, Q5MIN, PRN: Chest Pain, 100 tabs, 1 Refill(s) Documented Medications Documented Mobic 15 mg oral tablet: 15 mg = 1 tabs, ORAL, PRN, 0 Refill(s) Norvasc 10 mg oral tablet: 10 mg = 1 tabs, ORAL, DAILY, 0 Refill(s) Refresh Redness Relief: 1 drops, Both Eyes, DAILY, PRN: as needed for dry eyes, 0 Refill(s) Zestril 20 mg oral tablet: 20 mg = 1 tabs, ORAL, BID, 0 Refill(s) aspirin 81 mg oral tablet, chewable: 81 mg, 1 tabs, ORAL, DAILY, 0 Refill(s) citalopram 40 mg oral tablet: 40 mg = 1 tabs, ORAL, DAILY, 30 tabs, 0 Refill(s) isosorbide mononitrate 30 mg oral tablet, extended release: 30 mg = 1 tabs, ORAL, DAILY, 0 Refill(s) metoclopramide 10 mg oral tablet: 10 mg = 1 tabs, ORAL, DAILY, PRN: Nausea, 0 Refill(s) metoprolol succinate 25 mg oral tablet, extended release: 25 mg = 1 tabs, ORAL, DAILY, 30 tabs, 0 Refill(s) sucralfate 1 g oral tablet: 1 g = 1 tabs, ORAL, BID, 60 tabs, 0 Refill(s) traZODone 50 mg oral tablet: 75 mg = 1.5 tabs, ORAL, QHS, 0 Refill(s). Past Medical/ Family/ Social History Medical history: No active or resolved past medical history items have been selected or recorded.. Surgical history: Left Heart Catheterization, left ventriculogram. ([id number]) on 11/03/2021 at 61 Years. Drug Eluting Stent- Coronary Artery. (C9600) on 11/03/2021 at 61 Years. Drug Eluting Stent- Coronary Artery. (C9600) on 05/01/2018 at 58 Years. Coronary Angiograms. ([id number]) on 05/01/2018 at 58 Years. Left Heart Catheterization, left ventriculogram. ([id number]) on 04/16/2018 at 58 Years. Percutaneous Coronary Angioplasty. ([id number]) on 04/16/2018 at 58 Years. Drug Eluting Stent- Coronary Artery. (C9600) on 04/16/2018 at 58 Years. Comments: 04/17/2018 9:40 RENATE CRUZ MD, YOSI PCI with 3 by 20mm Promus NEVAEH Laparoscopy, surgical, esophagogastric fundoplasty (eg, Gabriela, Toupet procedures) ([id number]) on 10/20/2015 at 55 Years. Comments: 10/20/2015 8:22 Monik Scott RN LAPAROSCOPIC GABRIELA FUNDOPLICATION HERNIA on 10/20/2015 at 55 Years. Comments: 11/01/2015 11:00 Dorothy Lovelace RN 2 WEEKS AGO esophagogastroduodenosco py(EGD). ([id number]) on 08/17/2015 at 55 Years. COLONOSCOPY AND BIOPSY (PT:59) in 2015 at 55 Years. Cholecystectomy; (12812). EGD. Wrist surgery. Comments: 07/27/2015 14:08 Soraida Hayes MA left cardiac stents.. Family history: Leukemia Brother () Heart attack.. Father () Mother () Sister () Heart disease.. Father () Mother () Sister () . Social history: Alcohol use: Denies, Tobacco use: Denies, Drug use: Denies. Physical Examination Vital Signs Vital Signs 11/26/2021 12:30 EST Temperature Oral 37 degC NORMAL Peripheral Pulse Rate 106 bpm HI Respiratory Rate 18 br/min NORMAL Systolic Blood Pressure 154 mmHg HI Diastolic Blood Pressure 88 mmHg NORMAL SpO2 96 % NORMAL Oxygen Therapy Room air Weight Measured Type of Scale Patient Stated Weight Height/Length Dosing 177.8 cm Patient Stated Weight 95.5 kg . General: Alert. Skin: Warm, dry. Head: Normocephalic, atraumatic. Eye: Normal conjunctiva, vision unchanged. Ears, nose, mouth and throat: Oral mucosa moist, no pharyngeal regan (more content not included)... Normal [facility] ED Progress Noteon ED Progress Note pt to bred ra1 c/o r t knee pain x 2 weeks has had problems in past including scopes no specific injury pts orthopedic dr retired so does not have one 1349 Rx(s) given, verbalized understanding discharged pt in NAD, instructions given, verbalized understanding encouraged close f/u with dr or return for worsening Normal [facility] Cardiac Catheterization-Repo rton 11-03-2021 Cardiac Catheterization-Report Patient: TRUONG ROSARIO III Age: 61 years Sex: Male : 1960 Associated Diagnoses: None Author: CARROLL GIORDANO, [facility] CARDIAC CATHETERIZATION REPORT HISTORY: Patient was in the emergency room with chest pains. ACS was ruled out. He had outpatient nuclear stress test on 11/01/2021 which showed inferior and lateral wall myocardial ischemia. LVEF was 57%. Patient had more chest pains requiring sublingual nitroglycerin. Cardiac catheterization therefore was advised. Patient is known to have extensive coronary artery disease and has had multivessel PCI. On 04/16/2018 he had a 3 x 20 mm Promus NEVAEH in the middle part of a large OMB which consisted of most of the circumflex system. On 05/01/2018 he had a 2.5 x 20 mm Promus Elite NEVAEH in proximal to mid LAD. Extensive stenting of RCA was done on that day. He had a 3 x 24 mm proximal RCA stent and 3 overlapping drug-eluting stents from RCA to the PDA jailing the posterolateral branch. These stents were 3 x 38 mm, 2.5 x 38 mm and 2.5 x 38 mm drug-eluting stents. Patient has done well since then until the recent onset of chest pains. There is history of hypertension, hyperlipidemia and depression. PHYSICAL EXAMINATION: A middle-aged white male in no acute distress. Pulse 90/min, regular, blood pressure 110/70 mmHg. JVP not elevated. Lungs: Clear. Cardiac: Normal. Abdomen: Normal. HEALTHCARE ANALYST: Normal. Extremities: Normal. EKG: NSR 92 bpm. Old inferior IN. FLUOROSCOPY: Stents are seen in LAD, circumflex and RCA including PDA PROCEDURE: The right radial area was prepared, draped, and anesthetized in the usual manner. A 6-Maldivian sheath was inserted in the right radial artery. Then, 5000 units of heparin was given intravenously. 3 mg of verapamil was given intra-arterially. A 6-Maldivian multipurpose A2 catheter was used. Left ventricular and aortic pressures were measured. Selective coronary angiograms were done in various projections. A left ventriculogram was obtained in 30 degree CAST projection. The radial puncture site hemostasis was achieved with a Vasc Band. There were no complications. HEMODYNAMICS: The ascending aortic pressure was 128/80 (100) mmHg. At the time of pullback, ascending aortic pressure was 128/78 mmHg. Left ventricular pressure was 130/15?22 mmHg. Resting LVEDP was 20?22 mmHg. There were no gradient across the aortic valve during systole. The high LVEDP was consistent with moderate left ventricular diastolic dysfunction. CORONARY ANGIOGRAMS: 1. Left main coronary artery: Normal 2. Left anterior descending coronary artery: Small and severely and diffusely diseased. Patent stent in proximal to mid LAD without any in-stent restenosis. Severe diffuse narrowing of the distal and terminal LAD and its diagonal branches. 3. Circumflex coronary artery: The circumflex system consists of a large OMB. The stent in middle part of this vessel is widely patent. There is 70% of stenosis just before the stent. It totally occluded branch of circumflex fills retrograde from right coronary artery. The site of total occlusion of this branch is not seen. 4. Right coronary artery: The entire vessel is stented including the PDA. There is no in-stent restenosis. All stents are widely patent. The jailed posterolateral branch has 50% ostial narrowing. RCA gives collaterals to a totally occluded branch of circumflex coronary artery. LEFT VENTRICULOGRAM: There is moderate hypokinesis of basal inferior wall of the left ventricle. Remaining left ventricular segments contract normally. The global left ventricular ejection fraction is 50-55%. There is no mural thrombus. DISCUSSION: All the stents and multiple coronary arteries are widely patent without any in-stent restenosis. LAD system is a small and diffusely diseased. This vessel is not suitable for PCI or surgical revascularization. No critical lesion is seen in LAD system. One of the branches of circumflex coronary artery is totally occluded and fills retrograde by collaterals from RCA. The origin of this totally occluded branch is not visualized. There is 70% restenosis in the middle part of the large OMB or circumflex coronary artery just before the prior stent. Angiographically this lesion does not appear significant but given his chest pains and ischemia in the inferior and lateral segments, this lesion was considered to be the culprit lesion. PCI of this lesion therefore was advised. CONCLUSION: 1. Coronary artery disease with a. Patent stent in LAD. Moderate diffuse mid to distal distal narrowing of the small LAD and its diagonal branches. b. 70% stenosis in the middle part of large circumflex coronary artery just before a prior stent. Stent is widely patent. It totally occluded branch of this vessel fills retrograde by collaterals from RCA. c. Widely patent stents in RCA and PDA. No occlusive disease in the right coronary territory. 50% ostial narrowing of the jailed posterolateral branch of right coronary artery. 2. Moderate basal inferior wall hypo (more content not included)... Normal [facility] Inpatient Patient Summaryon 11-03-2021 Inpatient Patient Summary [facility] Discharge Instructions [address] [place] [address] \.br\(Patient Copy)\.br\ \.br\ \.br\Name: TRUONG ROSARIO III : 1960 \.br\Diagnosis: \.br\ \.br\Allergies: Vancomycin Hydrochloride; penicillins; erythromycin; Zoloft; Macrobid\.br\ \.br\Registration Date: 11/03/21\.br\\.br\\.br\M RN: [id number] \.br\[facility]#: [id number] Current Date Time: 11/03/2021 19:31:24 \.br\ \.br\Address: [address] [place] [address] \.br\Phone: [phone] \.br\ \.br\Primary Care Provider: \.br\Name: PRERNA LEMUS DO\.br\ \.br\ \.br\Thank you for choosing [facility] for your care. You are very important to us. Our goal is to demonstrate our high quality medical care and provide you with a very good patient experience.\.br\ You may receive a survey about our service. Please take the time to complete the survey and return it so we can continue to enhance our service.\.br\ Thank you again for allowing [facility] to care for your medical needs. If you have any questions about your care or follow up information please contact your doctor.\.br\\.br\Follow- up Instructions\.br\\.br\\. br\With: Address: When: \.br\follow up as instructed \.br\\.br\\.br\\.br\\.br \\.br\Medication Information\.br\Only Take The Medicines On This List. \.br\Keep This List and Bring It To Your Next Appointment. \.br\Medicines To Take At Home: \.br\ Medicine Name\.br\ (Generic Name) Amount to Take How to Take it How Often to Take it Additional Instructions Next Dose Due \.br\ Norvasc 10 mg oral tablet\.br\(amlodipine) 10 mg By Mouth DAILY \.br\ aspirin 81 mg oral tablet, chewable\.br\(aspirin) 81 mg By Mouth DAILY \.br\ atorvastatin 40 mg oral tablet\.br\(atorvastatin ) 40 mg By Mouth DAILY \.br\ citalopram 40 mg oral tablet\.br\(citalopram) 40 mg By Mouth DAILY \.br\ Plavix 75 mg oral tablet *\.br\(clopidogrel) 75 mg By Mouth DAILY \.br\ TriCor\.br\(fenofibrate) 145 mg By Mouth DAILY WITH BREAKFAST \.br\ isosorbide mononitrate 30 mg oral tablet, extended release\.br\(isosorbide mononitrate = ismo, monoket, imdur) 30 mg By Mouth DAILY \.br\ Zestril 20 mg oral tablet\.br\(lisinopril) 20 mg By Mouth TWICE A DAY \.br\ Mobic 15 mg oral tablet\.br\(meloxicam) 15 mg By Mouth NEEDED \.br\ metoclopramide 10 mg oral tablet\.br\(metocloprami de) 10 mg By Mouth DAILY Take as needed for Nausea\.br\\.br\\.br\\.b r\\.br\\.br\ \.br\ metoprolol succinate 25 mg oral tablet, extended release\.br\(metoprolol) 25 mg By Mouth DAILY \.br\ nitroglycerin 0.4 mg sublingual tablet\.br\(nitroglyceri n) 0.4 mg Sublingual EVERY FIVE MINUTES Take as needed for Chest Pain\.br\\.br\\.br\\.br\ \.br\\.br\ \.br\ Refresh Redness Relief\.br\(ocular lubricant) 1 drops Both Eyes DAILY Take as needed for dry eyes\.br\\.br\\.br\\.br\ \.br\\.br\\.br\\.br\ \.br\ sucralfate 1 g oral tablet\.br\(sucralfate) 1 g By Mouth TWICE A DAY \.br\ traZODone 50 mg oral tablet\.br\(trazodone = desyrel) 75 mg By Mouth AT BEDTIME \.br\\.br\Understanding your home medicine is important to keeping you healthy. If you are taking medications that are not on the preceding list, please call your doctor to see if you are to continue taking that medication. It is important that you do not skip or make up doses. If you are ordered an antibiotic, finish taking all the medicine unless your doctor tells you otherwise. Call your doctor if you have any questions or problems. Take the medicine list with you to all follow up appointments.\.br\\.br\P atient education materials, if any, will display below\.br\\.br\Cardiovas cular Lab Discharge Instructions\.br\[facility]\.br\Radial Cardiac Catheterization\.br\\.br \A catheter was inserted through an artery in your arm and then it was carefully guided up to your heart. Once it reached your heart, the catheter was placed into 2 different arteries that deliver blood to your heart and contrast dye was injected. The dye allowed your doctor to see any areas in your coronary arteries that were blocked. If you had some blockage, you may have had angioplasty and a stent placed in your heart during the procedure. \.br\\.br\What to Expect at Home:\.br\Your arm may be sore where the catheter was placed. You may also have some bruising around and below the insertion site. The bruising may change color and possibly extend to your hand. This is normal. \.br\\.br\Activity:\.br\ \.br\? You may shower 24?48 hours after the procedure or as directed by your health care provider. Remove the bandage (dressing) and gently wash the site with plain soap and water. Pat the area dry with a clean towel. Do not rub the site, because this may cause bleeding.\.br\? Do not take baths, swim, or use a hot tub until your health care provider approves.\.br\? Check your insertion site every day for redness, swelling, or drainage.\.br\? Do not apply powder or lotion to the site.\.br\? Do not flex or bend the affected arm for 24 hours or as directed by your health care provider.\.br\? Do (more content not included)... Normal [facility] Nursing Clinical Noteon 10-25 Nursing Clinical [facility] incident 1745 ambulating halls with no incident 1814 initiated removal of radial band instruction to call for assist OOB did not wait for assist to get into bathroom at bedside Normal [facility] POC Nahid 11-03-2021 POC ACT 261 seconds Normal [facility] Comment on above: Result Comment: The target value anticipated for sheath removal is less than or equal to 170 seconds or as indicated by the physician. Panic values are designated by the physician and are individualized to each patient. Performed By: #### C D:[id number] #### [facility] [address] [place] [address] Home Advisor: Rojas Hernandez MD ED Discharge Educationon ED Discharge Education Cardiovascular Chest Pain: Care Instructions Your Care Instructions There are many things that can cause chest pain. Some are not serious and will get better on their own in a few days. But some kinds of chest pain need more testing and treatment. Your doctor may have recommended a follow-up visit in the next 8 to 12 hours. If you are not getting better, you may need more tests or treatment. Even though your doctor has released you, you still need to watch for any problems. The doctor carefully checked you, but sometimes problems can develop later. If you have new symptoms or if your symptoms do not get better, get medical care right away. If you have worse or different chest pain or pressure that lasts more than 5 minutes or you passed out (lost consciousness), call 911 or seek other emergency help right away. A medical visit is only one step in your treatment. Even if you feel better, you still need to do what your doctor recommends, such as going to all suggested follow-up appointments and taking medicines exactly as directed. This will help you recover and help prevent future problems. How can you care for yourself at home? ? Rest until you feel better. ? Take your medicine exactly as prescribed. Call your doctor if you think you are having a problem with your medicine. ? Do not drive after taking a prescription pain medicine. When should you call for help? Call 911 if: ? You passed out (lost consciousness). ? You have severe difficulty breathing. ? You have symptoms of a heart attack. These may include: ? Chest pain or pressure, or a strange feeling in your chest. ? Sweating. ? Shortness of breath. ? Nausea or vomiting. ? Pain, pressure, or a strange feeling in your back, neck, jaw, or upper belly or in one or both shoulders or arms. ? Lightheadedness or sudden weakness. ? A fast or irregular heartbeat. After you call 911, the concrete pipe making machine operator may tell you to chew 1 adult-strength or 2 to 4 low-dose aspirin. Wait for an ambulance. Do not try to drive yourself. Call your doctor today if: ? You have any trouble breathing. ? Your chest pain gets worse. ? You are dizzy or lightheaded, or you feel like you may faint. ? You are not getting better as expected. ? You are having new or different chest pain. Where can you learn more? Go to https://www.[employer].Flowgear et/patientEd Enter A120 in the search box to learn more about Chest Pain: Care Instructions. Current as of: November 19, 2019 Content Version: 12.7 ? [employer] Care instructions adapted under license by your healthcare professional. If you have questions about a medical condition or this instruction, always ask your healthcare professional. [employer] disclaims any warranty or liability for your use of this information. Normal [facility] ED Patient Summaryon 022 ED Patient Summary [facility] Emergency Department Discharge Instructions [address] [place] [address] \.br\(Patient Copy)\.br\ \.br\Name: TRUONG ROSARIO III : 1960 \.br\Allergies: Vancomycin Hydrochloride; penicillins; erythromycin; Zoloft; Macrobid\.br\Diagnosis: Diagnoses This Visit\.br\ Chest pain ([id number])\.br\ Chest pain ([id number])\.br\ Chest pain (R07.9)\.br\\.br\\.br\ \.br\ Visit Date: 09/26/2021 18:54:49 \.br\ Current Date Time: 09/26/2021 22:09:39 \.br\Address: [address] [place] [address] \.br\ \.br\ \.br\Primary Care Provider: \.br\ Name: MARIAH BRASHER PRERNA [place]\.br\ \.br\ \.br\Emergency Department Care Providers: \.br\ Primary Physician: BROOKE ALBERT DO \.br\ \.br\ \.br\\.br\Thank you for choosing [facility] for your emergency care. You are very important to us. Our goal is to demonstrate our high quality medical care, and provide you with a very good patient experience.\.br\\.br\You may receive a survey about our service. Please take the time to complete the survey and return it so we can continue to enhance our service.\.br\\.br\Thank you again for allowing the [facility] Emergency Department to care for your medical needs. If you have questions about your care or follow up information please contact us at [phone].\.br\\.br\ Follow-Up Instructions\.br\ \.br\TRUONG ROSARIO III has been given these follow-up instructions:\.br\\.br\\ .br\With: Address: When: \.br\YOSI CRUZ, Cardiology, Radiology [address] [facility], [address] [address]\.br\[phone] Business (1) Within 3 to 5 days \.br\\.br\\.br\With: Address: When: \.br\PRERNA ELMUS [address] [place] [address]\.br\ Business (1) Within 3 to 5 days \.br\\.br\\.br\\.br\\.br \ Patient Education Materials\.br\ \.br\FILI RAYMUNDO TRUONG Duran has been given the following patient education materials:\.br\\.br\Ches t Pain: Care Instructions\.br\Your Care Instructions\.br\\.br\Th ere are many things that can cause chest pain. Some are not serious and will get better on their own in a few days. But some kinds of chest pain need more testing and treatment. Your doctor may have recommended a follow-up visit in the next 8 to 12 hours. If you are not getting better, you may need more tests or treatment.\.br\Even though your doctor has released you, you still need to watch for any problems. The doctor carefully checked you, but sometimes problems can develop later. If you have new symptoms or if your symptoms do not get better, get medical care right away.\.br\If you have worse or different chest pain or pressure that lasts more than 5 minutes or you passed out (lost consciousness), call 911 or seek other emergency help right away. \.br\A medical visit is only one step in your treatment. Even if you feel better, you still need to do what your doctor recommends, such as going to all suggested follow-up appointments and taking medicines exactly as directed. This will help you recover and help prevent future problems.\.br\How can you care for yourself at home?\.br\? Rest until you feel better.\.br\? Take your medicine exactly as prescribed. Call your doctor if you think you are having a problem with your medicine.\.br\? Do not drive after taking a prescription pain medicine.\.br\When should you call for help?\.br\ Call 911 if: \.br\ ? You passed out (lost consciousness). \.br\ ? You have severe difficulty breathing. \.br\ ? You have symptoms of a heart attack. These may include: \.br\? Chest pain or pressure, or a strange feeling in your chest.\.br\? Sweating.\.br\? Shortness of breath.\.br\? Nausea or vomiting.\.br\? Pain, pressure, or a strange feeling in your back, neck, jaw, or upper belly or in one or both shoulders or arms.\.br\? Lightheadedness or sudden weakness.\.br\? A fast or irregular heartbeat.\.br\After you call 911, the concrete pipe making machine operator may tell you to chew 1 adult-strength or 2 to 4 low-dose aspirin. Wait for an ambulance. Do not try to drive yourself. \.br\Call your doctor today if:\.br\ ? You have any trouble breathing. \.br\ ? Your chest pain gets worse. \.br\ ? You are dizzy or lightheaded, or you feel like you may faint. \.br\ ? You are not getting better as expected. \.br\ ? You are having new or different chest pain. \.br\Where can you learn more?\.br\Go to https://www.[employer].n et/patientEd\.br\Enter A120 in the search box to learn more about Chest Pain: Care Instructions.\.br\Rashaun king as of: November 19, 2019 Content Version: 12.7\.br\? [id number] [employer]. \.br\Care instructions adapted under license by your healthcare professional. If you have questions about a medical condition or this instruction, always ask your healthcare professional. [employer] (more content not included)... Normal [facility] ED Physician Reporton 2021 ED Physician Report Patient: TRUONG ROSARIO III Age: 61 years Sex: Male : 1960 Associated Diagnoses: Chest pain Author: BROOKE ALBERT DO Basic Information Time seen: Date & time 09/26/2021 19:00:00. History source: Patient. Arrival mode: Private vehicle. History limitation: None. History of Present Illness The patient presents with chest pain. The onset was 3 days ago. The course/duration of symptoms is constant. Location: Left lateral. The character of symptoms is sharp and stabbing. The degree at onset was minimal. The degree at maximum was minimal. The degree at present is minimal. The relieving factor is rest. Risk factors consist of coronary artery disease and Patient has 6 stents. Associated symptoms: denies shortness of breath, denies nausea and denies vomiting. Review of Systems Constitutional symptoms: No fever, no chills, no sweats, no weakness. Skin symptoms: No abrasions, Eye symptoms: Vision unchanged. ENMT symptoms: No ear pain, no sore throat. Respiratory symptoms: No shortness of breath, no cough. Cardiovascular symptoms: No chest pain, no palpitations. Gastrointestinal symptoms: No abdominal pain, no nausea, no vomiting. Genitourinary symptoms: No dysuria, Musculoskeletal symptoms: Negative except as documented in HPI, No back pain, Hematologic/Lymphatic symptoms: Bleeding tendency negative, Neurologic symptoms No headache, no dizziness, no altered level of consciousness. Additional review of systems information: All other systems reviewed and otherwise negative. Health Status Allergies: Allergic Reactions (Selected) Severity Not Documented Erythromycin- No reactions were documented. Macrobid- Eyes swell/ skin discoloration. Penicillins- Hives-at age 18 and vomit. Vancomycin Hydrochloride- No reactions were documented. Zoloft- No reactions were documented.. Medications: (Selected) Inpatient Medications Ordered Saline Flush: 3 mL, IV Push, PRN, PRN: See Note Line Saline Flush: 3 mL, IV Push, [id number] Prescriptions Prescribed TriCor: 145 mg, ORAL, DAILY WITH BREAKFAST, 30 tabs, 5 Refill(s) atorvastatin 40 mg oral tablet: 40 mg = 1 tabs, ORAL, DAILY, 30 tabs, 3 Refill(s) nitroglycerin 0.4 mg sublingual tablet: 0.4 mg = 1 tabs, Sublingual, Q5MIN, PRN: Chest Pain, 100 tabs, 1 Refill(s) Documented Medications Documented Brilinta (ticagrelor) 90 mg oral tablet: 90 mg = 1 tabs, ORAL, BID, 0 Refill(s) Mobic 15 mg oral tablet: 15 mg = 1 tabs, ORAL, PRN, 0 Refill(s) Norvasc 10 mg oral tablet: 10 mg = 1 tabs, ORAL, DAILY, 0 Refill(s) Refresh Redness Relief: 1 drops, Both Eyes, DAILY, PRN: as needed for dry eyes, 0 Refill(s) Zestril 20 mg oral tablet: 20 mg = 1 tabs, ORAL, DAILY, 0 Refill(s) aspirin 81 mg oral tablet, chewable: 81 mg, 1 tabs, ORAL, DAILY, 0 Refill(s) citalopram 40 mg oral tablet: 40 mg = 1 tabs, ORAL, DAILY, 30 tabs, 0 Refill(s) metoclopramide 10 mg oral tablet: 10 mg = 1 tabs, ORAL, DAILY, PRN: Nausea, 0 Refill(s) metoprolol succinate 25 mg oral tablet, extended release: 25 mg = 1 tabs, ORAL, DAILY, 30 tabs, 0 Refill(s) sucralfate 1 g oral tablet: 1 g = 1 tabs, ORAL, BID, 60 tabs, 0 Refill(s) traZODone 50 mg oral tablet: 75 mg = 1.5 tabs, ORAL, QHS, 0 Refill(s). Past Medical/ Family/ Social History Medical history: No active or resolved past medical history items have been selected or recorded.. Surgical history: Drug Eluting Stent- Coronary Artery. ([id number]) on 05/01/2018 at 58 Years. Coronary Angiograms. ([id number]) on 05/01/2018 at 58 Years. Left Heart Catheterization, left ventriculogram. ([id number]) on 04/16/2018 at 58 Years. Percutaneous Coronary Angioplasty. ([id number]) on 04/16/2018 at 58 Years. Drug Eluting Stent- Coronary Artery. (C9600) on 04/16/2018 at 58 Years. Comments: 04/17/2018 9:40 RENATE CRUZ MD, YOSI PCI with 3 by 20mm Promus NEVAEH Laparoscopy, surgical, esophagogastric fundoplasty (eg, Gabriela, Toupet procedures) ([id number]) on 10/20/2015 at 55 Years. Comments: 10/20/2015 8:22 Monik Scott RN LAPAROSCOPIC GABRIELA FUNDOPLICATION HERNIA on 10/20/2015 at 55 Years. Comments: 11/01/2015 11:00 Dorothy Lovelace RN 2 WEEKS AGO esophagogastroduodenosco py(EGD). (72473) on 08/17/2015 at 55 Years. COLONOSCOPY AND BIOPSY (PT:59) in 2015 at 55 Years. Cholecystectomy; (02552). EGD. Wrist surgery. Comments: 07/27/2015 14:08 ALFONZO Katz MA, Soraida left cardiac stents.. Family history: Leukemia Brother () Heart attack.. Father () Mother () Sister () Heart disease.. Father () Mother () Sister () . Social history: Alcohol use: Denies, Tobacco use: Denies, Drug use: Denies. Physical Examination Vital Signs Vital Signs 09/26/2021 21:30 EST Heart Rate Monitored 81 bpm NORMAL Peripheral Pulse Rate 82 bpm NORMAL Respiratory Rate 23 br/min HI SpO2 96 % NORMAL 09/26/2021 21:00 EST Heart Rate Monitor (more content not included)... Normal [facility] ED Progress Noteon ED Progress Note Pt presents to ED fr om home w/ c/o CP this AM. Pt has hx of IN and stents in the past. EKG done, IV placed and labs drawn. VSS and RR unlabored. Pt ambulated to DC w/ steady gait. VSS and RR unlabored. IV removed w/o incident. DC instructions and f/u recommendations given to pt who states understanding. All questions answered prior to DC. Normal [facility] AUTO DIFFon 09-26-2021 Baso Count 0.10 x1000 Normal 0.00-0.20 [facility] Comment on above: Performed By: #### 9 [id number] #### [facility] [address] [place] [address] [id number] Home Advisor: Rojas Hernandez MD Basos % 1.4 % Normal [facility] Comment on above: Performed By: #### 9 [id number] #### [facility] [address] [place] [address] 78870 Home Advisor: Rojas Hernandez MD Eos Count 0.10 x1000 Normal 0.00-0.50 [facility] Comment on above: Performed By: #### 9 [id number] #### [facility] [address] [place] [address] [phone] Home Advisor: Rojas Hernandez MD Eosinophils/100 WBC (Bld) 1.3 % Normal [facility] Comment on above: Performed By: #### 9 [id number] #### [facility] [address] [place] [address] 59407 Home Advisor: Rojas Hernandez MD Lymph Count 1.20 x1000 Normal 1.20-4.80 [facility] Comment on above: Performed By: #### 9 [id number] #### [facility] [address] [place] [address] 24198 Home Advisor: Rojas Hernandez MD Lymphocytes/100 WBC (Bld) 13.8 % Normal [facility] Comment on above: Performed By: #### 9 [id number] #### [facility] [address] [place] [address] 81952 Home Advisor: Rojas Hernandez MD [place] Count 0.70 x1000 Normal 0.10-1.00 [facility] Comment on above: Performed By: #### 9 [id number] #### [facility] [address] [place] [address] 47695 Home Advisor: Rojas Hernandez MD Monocytes/100 WBC (Bld) 8.0 % Normal [facility] Comment on above: Performed By: #### 9 [id number] #### [facility] [address] [place] [address] 47077 Home Advisor: Rojas Hernandez MD Neutrophil Count (ANC) 6.40 x1000 Normal 1.40-8.80 [facility] Comment on above: Performed By: #### 9 [id number] #### [facility] [address] [place] [address] 24430 Home Advisor: Rojas Hernandez MD Neutrophils/100 WBC (Bld) 75.5 % Normal [facility] Comment on above: Performed By: #### 9 [id number] #### [facility] [address] [place] [address] 33746 Home Advisor: Rojas Hernandez MD Red Blood Cell Morphology See Notes Abnormal [facility] Comment on above: Result Comment: Anis ocytosis 1+ Performed By: #### 9 [id number] #### [facility] [address] [place] [address] 16721 Home Advisor: MD Zacarias Cain 09-26-2021 GFR Estimated 85 Normal [facility] Comment on above: Result Comment: The GFR is calculated and is Age, Sex, and Race adjusted. Performed By: #### 9 [id number] #### [facility] [address] [place] [address] 08119 Home Advisor: Rojas Hernandez MD Albumin [Mass/Vol] 3.7 g/dL Normal 3.4-5.0 [facility] Comment on above: Performed By: #### 9 [id number] #### [facility] [address] [place] [address] 97996 Home Advisor: Rojas Hernandez MD Albumin/Globulin [Mass ratio] 1.2 {ratio} Normal [facility] Comment on above: Performed By: #### 9 [id number] #### [facility] [address] [place] [address] 08141 Home Advisor: Rojas Hernandez MD Alk Phos 91 unit/L Normal 45-117 [facility] Comment on above: Performed By: #### 9 [id number] #### [facility] [address] [place] [address] 56013 Home Advisor: Rojas Hernandez MD Bilirubin [Mass/Vol] 0.30 mg/dL Normal 0.20-1.00 [facility] Comment on above: Result Comment: Use of this assay is not recommended for patients undergoing treatment with eltrombopag due to the potential for falsely elevated results. Performed By: #### 9 [id number] #### [facility] [address] [place] [address] 97912 Home Advisor: Rojas Hernandez MD Calcium [Mass/Vol] 8.8 mg/dL Normal 8.5-10.5 [facility] Comment on above: Performed By: #### 9 [id number] #### [facility] [address] [place] [address] Home Advisor: Rojas Hernandez MD Chloride [Moles/Vol] 103 mmol/L Normal 100-109 [facility] Comment on above: Performed By: #### 9 [id number] #### [facility] [address] [place] [address] 31937 Home Advisor: Rojas Hernandez MD CO2 [Moles/Vol] 23.7 mmol/L Normal 21.0-32.0 [facility] Comment on above: Performed By: #### 9 [id number] #### [facility] [address] [place] [address] 66370 Home Advisor: Roajs Hernandez MD Creatinine [Mass/Vol] 0.9 mg/dL Normal 0.7-1.3 [facility] Comment on above: Performed By: #### 9 [id number] #### [facility] [address] [place] [address] 98794 Home Advisor: Rojas Hernandez MD Globulin (S) [Mass/Vol] 3.2 g/dL Normal [facility] Comment on above: Performed By: #### 9 [id number] #### [facility] [address] [place] [address] 84640 Home Advisor: Rojas Hernandez MD Glucose [Mass/Vol] 171 mg/dL High 72-100 [facility] Comment on above: Result Comment: Monica puncture should occur prior to sulfasalazine administration due to the potential for falsely depressed results. Venipuncture should occur prior to sulfapyridine administration due to the potential falsely elevated results. Baseline assay values before administration of sulfasalazine and sulfapyridine therapy would not be affected. Performed By: #### 9 [id number] #### [facility] [address] [place] [address] 44838 Home Advisor: Rojas Hernandez MD GOT 20 unit/L Normal 15-37 [facility] Comment on above: Result Comment: Monica puncture should occur prior to sulfasalazine administration due to the potential for falsely depressed results. Baseline assay values before administration of sulfasalazine and sulfapyridine therapy would not be affected. Performed By: #### 9 [id number] #### [facility] [address] [place] [address] 49597 Home Advisor: Rojas Hernandez MD GPT 28 unit/L Normal 16-63 [facility] Comment on above: Result Comment: Monica puncture should occur prior to sulfasalazine administration due to the potential for falsely depressed results. Baseline assay values before administration of sulfasalazine and sulfapyridine therapy would not be affected. Performed By: #### 9 [id number] #### [facility] [address] [place] [address] 69745 Home Advisor: Rojas Hernandez MD Osmolality [Osmolality] 282 mosm/kg Normal 275-295 [facility] Comment on above: Performed By: #### 9 [id number] #### [facility] [address] [place] [address] 59127 Home Advisor: Rojas Hernandez MD Potassium [Moles/Vol] 4.0 mmol/L Normal 3.5-5.1 [facility] Comment on above: Performed By: #### 9 [id number] #### [facility] [address] [place] [address] 53579 Home Advisor: Rojas Hernandez MD Protein [Mass/Vol] 6.9 g/dL Normal 6.0-8.5 [facility] Comment on above: Performed By: #### 9 [id number] #### [facility] [address] [place] [address] 55095 Home Advisor: Rojas Hernandez MD Sodium [Moles/Vol] 139 mmol/L Normal 135-145 [facility] Comment on above: Performed By: #### 9 [id number] #### [facility] [address] [place] [address] 89070 Home Advisor: Rojas Hernandez MD Urea nitrogen [Mass/Vol] 13 mg/dL Normal 10-20 [facility] Comment on above: Performed By: #### 9 [id number] #### [facility] [address] [place] [address] 43533 Home Advisor: Rojas Hernandez MD Urea nitrogen/Creatinine [Mass ratio] 14.4 mg/mg Normal [facility] Comment on above: Performed By: #### 9 [id number] #### [facility] [address] [place] [address] 21266 Home Advisor: Rojas Hernandez MD HEMOon 09-26-2021 DIFF? No Normal [facility] Comment on above: Performed By: #### 9 [id number] #### [facility] [address] [place] [address] 60953 Home Advisor: Rojas Hernandez MD Erythrocyte distribution width (RBC) [Ratio] 17.1 % High 11.5-14.5 [facility] Comment on above: Performed By: #### 9 [id number] #### [facility] [address] [place] [address] 78058 Home Advisor: Rojas Hernandez MD Hematocrit (Bld) [Volume fraction] 38.2 % Low 41.0-52.0 [facility] Comment on above: Performed By: #### 9 [id number] #### [facility] [address] [place] [address] 17327 Home Advisor: Rojas Hernandez MD Hemoglobin (Bld) [Mass/Vol] 12.4 g/dL Low 13.5-17.5 [facility] Comment on above: Performed By: #### 9 [id number] #### [facility] [address] [place] [address] 50228 Home Advisor: Rojas Hernandez MD Instr WBC 8.4 Normal [facility] Comment on above: Performed By: #### 9 [id number] #### [facility] [address] [place] [address] 97818 Home Advisor: Rojas Hernandez MD MCH (RBC) [Entitic mass] 26.2 pg Low 27.0-34.0 [facility] Comment on above: Performed By: #### 9 [id number] #### [facility] [address] [place] [address] 19149 Home Advisor: Rojas Hernandez MD MCHC (RBC) [Mass/Vol] 32.5 g/dL Normal 32.0-37.0 [facility] Comment on above: Performed By: #### 9 [id number] #### [facility] [address] [place] [address] 26191 Home Advisor: Rojas Hernandez MD MCV (RBC) [Entitic vol] 80.6 fL Normal 80.0-100.0 [facility] Comment on above: Performed By: #### 9 [id number] #### [facility] [address] [place] [address] 13604 Home Advisor: Rojas Hernandez MD Nucleated RBC 0 /100WBC Normal [facility] Comment on above: Performed By: #### 9 [id number] #### [facility] [address] [place] [address] 50558 Home Advisor: Rojas Hernandez MD Platelet 326 x1000 Normal 150-450 [facility] Comment on above: Performed By: #### 9 [id number] #### [facility] [address] [place] [address] 41428 Home Advisor: Rojas Hernandez MD Platelet mean volume (Bld) [Entitic vol] 8.0 fL Normal 7.4-10.4 [facility] Comment on above: Performed By: #### 9 [id number] #### [facility] [address] [place] [address] 86834 Home Advisor: Rojas Hernandez MD RBC 4.74 x10 Normal 4.70-6.10 [facility] Comment on above: Result Comment: Note : RBC morphology is normal unless otherwise stated. Evaluation performed only if differential is requested. Performed By: #### 9 [id number] #### [facility] [address] [place] [address] 21715 Home Advisor: Rojas Hernandez MD WBC 8.4 x10 Normal 4.5-11.0 [facility] Comment on above: Performed By: #### 9 [id number] #### [facility] [address] [place] [address] 53093 Home Advisor: Rojas Hernandez MD TROPONIN HS 0HRon 09-26-2021 Troponin HS 0 Hr 13 pg/mL Normal [facility] Comment on above: Performed By: #### 9 [id number] #### [facility] [address] [address] Home Advisor: Rojas Hernandez MD TROPONIN HS 2HRon 09-26-2021 Delta Troponin 2 Hr 1 pg/mL Normal 0-14 [facility] Comment on above: Result Comment: The term acute myocardial infarction should be used when there is acute myocardial injury with clinical evidence of acute myocardial ischemia and the rise or fall of serial Troponin HS values (delta troponin) greater than or equal to 15 pg/mL with at least one Troponin HS value above the 99th percentile reference range Performed By: #### 9 [id number] #### [facility] [address] [place] [address] 70240 Home Advisor: Rojas Hernandez MD Troponin HS 2 Hr 14 pg/mL Normal [facility] Comment on above: Performed By: #### 9 [id number] #### [facility] [address] [place] [address] 96704 Home Advisor: Rojas Hernandez MD XR CHEST PORTABLEon 09-26-19 XR CHEST PORTABLE EXAM DESCRIPTION: Site: XR CHEST PORTABLE RP: XR CHEST 1 VIEW CLINICAL HISTORY: 61 years Male; CHEST PAIN; WHAT SYMPTOMS ARE YOU EXPERIENCING? - C/O ONSET OF LEFT SIDE UPPER CHEST PAIN THIS AM, HX IN AND 6 STENTS IN 2018 COMPARISON: 01/07/2021 FINDINGS: Lungs: Lungs are clear, with no focal infiltrate, pneumothorax, or pleural effusion. Mediastinum: Mediastinum is within normal limits for this positioning. Bones: Bony structures are unremarkable. IMPRESSION: 1. No acute pulmonary findings. Electronically signed by: Celso Rizzo MD 09/26/2021 7:06 PM [facility] Technologist: SK Dictated By: VERONICA RIZZO MD Signed By: VERONICA RIZZO MD Signed Out: 09/26/21 20:06:18 Normal [facility] ED Physician Reporton 2020 ED Physician Report Patient: TRUONG ROSARIO III Age: 61 years Sex: Male : 1960 Associated Diagnoses: Cyst of left kidney; Renal colic on left side Author: BROOKE ALBERT DO Basic Information Time seen: Date & time 07/11/2021 16:50:00. History source: Patient. Arrival mode: Private vehicle. History limitation: None. History of Present Illness The patient presents with flank pain. The onset was 1 weeks ago. The character of symptoms is achy. The degree at onset was minimal. The Location of pain at onset was left and flank. The degree at present is minimal. The Location of pain at present is left and flank. Associated symptoms: denies chest pain, denies nausea and denies vomiting. Review of Systems Constitutional symptoms: No fever, no chills, no sweats, no weakness. Skin symptoms: No abrasions, Eye symptoms: Vision unchanged. ENMT symptoms: No ear pain, no sore throat. Respiratory symptoms: No shortness of breath, no cough. Cardiovascular symptoms: No chest pain, no palpitations. Gastrointestinal symptoms: No abdominal pain, no nausea, no vomiting. Genitourinary symptoms: No dysuria, Musculoskeletal symptoms: Negative except as documented in HPI, No back pain, Hematologic/Lymphatic symptoms: Bleeding tendency negative, Neurologic symptoms No headache, no dizziness, no altered level of consciousness. Additional review of systems information: All other systems reviewed and otherwise negative. Health Status Allergies: Allergic Reactions (Selected) Severity Not Documented Erythromycin- No reactions were documented. Macrobid- Eyes swell/ skin discoloration. Penicillins- Hives-at age 18 and vomit. Vancomycin Hydrochloride- No reactions were documented. Zoloft- No reactions were documented.. Medications: (Selected) Prescriptions Prescribed TriCor: 145 mg, ORAL, DAILY WITH BREAKFAST, 30 tabs, 5 Refill(s) atorvastatin 40 mg oral tablet: 40 mg = 1 tabs, ORAL, DAILY, 30 tabs, 3 Refill(s) nitroglycerin 0.4 mg sublingual tablet: 0.4 mg = 1 tabs, Sublingual, Q5MIN, PRN: Chest Pain, 100 tabs, 1 Refill(s) Documented Medications Documented Brilinta (ticagrelor) 90 mg oral tablet: 90 mg = 1 tabs, ORAL, BID, 0 Refill(s) Mobic 15 mg oral tablet: 15 mg = 1 tabs, ORAL, PRN, 0 Refill(s) Norvasc 10 mg oral tablet: 10 mg = 1 tabs, ORAL, DAILY, 0 Refill(s) Refresh Redness Relief: 1 drops, Both Eyes, DAILY, PRN: as needed for dry eyes, 0 Refill(s) Zestril 20 mg oral tablet: 20 mg = 1 tabs, ORAL, DAILY, 0 Refill(s) aspirin 81 mg oral tablet, chewable: 81 mg, 1 tabs, ORAL, DAILY, 0 Refill(s) citalopram 40 mg oral tablet: 40 mg = 1 tabs, ORAL, DAILY, 30 tabs, 0 Refill(s) metoclopramide 10 mg oral tablet: 10 mg = 1 tabs, ORAL, DAILY, PRN: Nausea, 0 Refill(s) metoprolol succinate 25 mg oral tablet, extended release: 25 mg = 1 tabs, ORAL, DAILY, 30 tabs, 0 Refill(s) sucralfate 1 g oral tablet: 1 g = 1 tabs, ORAL, BID, 60 tabs, 0 Refill(s) traZODone 50 mg oral tablet: 75 mg = 1.5 tabs, ORAL, QHS, 0 Refill(s). Past Medical/ Family/ Social History Medical history: No active or resolved past medical history items have been selected or recorded.. Surgical history: Drug Eluting Stent- Coronary Artery. (C9600) on 05/01/2018 at 58 Years. Coronary Angiograms. (92482) on 05/01/2018 at 58 Years. Left Heart Catheterization, left ventriculogram. (92184) on 04/16/2018 at 58 Years. Percutaneous Coronary Angioplasty. (31943) on 04/16/2018 at 58 Years. Drug Eluting Stent- Coronary Artery. (C9600) on 04/16/2018 at 58 Years. Comments: 04/17/2018 9:40 EDT - NANCY GIORDANO, YOSI PCI with 3 by 20mm Promus NEVAEH Laparoscopy, surgical, esophagogastric fundoplasty (eg, Gabriela, Toupet procedures) (91826) on 10/20/2015 at 55 Years. Comments: 10/20/2015 8:22 ALFONZO Rios RN, Monik LAPAROSCOPIC GABRIELA FUNDOPLICATION HERNIA on 10/20/2015 at 55 Years. Comments: 11/01/2015 11:00 Dorothy Lovelace RN 2 WEEKS AGO esophagogastroduodenosco py(EGD). (19331) on 08/17/2015 at 55 Years. COLONOSCOPY AND BIOPSY (PT:59) in 2015 at 55 Years. Cholecystectomy; (39979). EGD. Wrist surgery. Comments: 07/27/2015 14:08 ALFONZO Katz MA, Soraida left cardiac stents.. Family history: Leukemia Brother () Heart attack.. Father () Mother () Sister () Heart disease.. Father () Mother () Sister () . Social history: Alcohol use: Denies, Tobacco use: Denies, Drug use: Denies. Physical Examination Vital Signs Vital Signs 07/11/2021 16:37 EDT Temperature Oral 36.7 degC NORMAL Peripheral Pulse Rate 92 bpm NORMAL Respiratory Rate 16 br/min NORMAL Systolic Blood Pressure 148 mmHg HI Diastolic Blood Pressure 107 mmHg HI SpO2 98 % NORMAL Oxygen Therapy Room air Weight Measured Type of Scale Patient Stated Weight Height/Length Dosing 177.80 cm Patient Stated Weight 100 kg . General: Alert. Skin: Warm, dry. (more content not included)... Normal [facility] AUTO DIFFon 07-11-2021 Baso Count 0.10 x1000 Normal 0.00-0.20 [facility] Comment on above: Performed By: #### 1 [id number] #### [facility] [address] [place] [address] 19860 Home Advisor: Rojas Hernandez MD Basos % 1.0 % Normal [facility] Comment on above: Performed By: #### 1 [id number] #### [facility] [address] [place] [address] 79119 Home Advisor: Rojas Hernandez MD Eos Count 0.20 x1000 Normal 0.00-0.50 [facility] Comment on above: Performed By: #### 1 [id number] #### [facility] [address] [place] [address] 99016 Home Advisor: Rojas Hernandez MD Eosinophils/100 WBC (Bld) 1.7 % Normal [facility] Comment on above: Performed By: #### 1 [id number] #### [facility] [address] [place] [address] 93383 Home Advisor: Rojas Hernandez MD Lymph Count 1.60 x1000 Normal 1.20-4.80 [facility] Comment on above: Performed By: #### 1 [id number] #### [facility] [address] [place] [address] 98527 Home Advisor: Rojas Hernandez MD Lymphocytes/100 WBC (Bld) 16.6 % Normal [facility] Comment on above: Performed By: #### 1 [id number] #### [facility] [address] [place] [address] 03601 Home Advisor: Rojas Hernandez MD [place] Count 0.80 x1000 Normal 0.10-1.00 [facility] Comment on above: Performed By: #### 1 [id number] #### [facility] [address] [place] [address] 67379 Home Advisor: Rojas Hernandez MD Monocytes/100 WBC (Bld) 8.5 % Normal [facility] Comment on above: Performed By: #### 1 [id number] #### [facility] [address] [place] [address] 44460 Home Advisor: Rojas Hernandez MD Neutrophil Count (ANC) 7.10 x1000 Normal 1.40-8.80 [facility] Comment on above: Performed By: #### 1 [id number] #### [facility] [address] [place] [address] 83977 Home Advisor: Rojas Hernandez MD Neutrophils/100 WBC (Bld) 72.2 % Normal [facility] Comment on above: Performed By: #### 1 [id number] #### [facility] [address] [place] [address] 60162 Home Advisor: Rojas Hernandez MD Red Blood Cell Morphology See Notes Abnormal [facility] Comment on above: Result Comment: Anis ocytosis 1+ Performed By: #### 1 [id number] #### [facility] [address] [place] [address] 94454 Home Advisor: Rojas Hernandez MD COMPMETAon 07-11-2021 GFR Estimated 75 Normal [facility] Comment on above: Result Comment: The GFR is calculated and is Age, Sex, and Race adjusted. Performed By: #### 1 [id number] #### [facility] [address] [place] [address] 24740 Home Advisor: Rojas Hernandez MD Albumin [Mass/Vol] 4.2 g/dL Normal 3.4-5.0 [facility] Comment on above: Performed By: #### 1 [id number] #### [facility] [address] [place] [address] 19236 Home Advisor: Rojas Hernandez MD Albumin/Globulin [Mass ratio] 1.4 {ratio} Normal [facility] Comment on above: Performed By: #### 1 [id number] #### [facility] [address] [place] [address] 29788 Home Advisor: Rojas Hernandez MD Alk Phos 97 unit/L Normal 45-117 [facility] Comment on above: Performed By: #### 1 24020 #### [facility] [address] [place] [address] 67050 Home Advisor: Rojas Hernandez MD Bilirubin [Mass/Vol] 0.40 mg/dL Normal 0.20-1.00 [facility] Comment on above: Result Comment: Use of this assay is not recommended for patients undergoing treatment with eltrombopag due to the potential for falsely elevated results. Performed By: #### 1 [id number] #### [facility] [address] [place] [address] 94796 Home Advisor: Rojas Hernandez MD Calcium [Mass/Vol] 9.7 mg/dL Normal 8.5-10.5 [facility] Comment on above: Performed By: #### 1 [id number] #### [facility] [address] [place] [address] 97674 Home Advisor: Rojas Hernandez MD Chloride [Moles/Vol] 99 mmol/L Low 100-109 [facility] Comment on above: Performed By: #### 1 38846 #### [facility] [address] [place] [address] 97717 Home Advisor: Rojas Hernandez MD CO2 [Moles/Vol] 22.8 mmol/L Normal 21.0-32.0 [facility] Comment on above: Performed By: #### 1 [id number] #### [facility] [address] [place] [address] 18664 Home Advisor: Rojas Hernandez MD Creatinine [Mass/Vol] 1.0 mg/dL Normal 0.7-1.3 [facility] Comment on above: Performed By: #### 1 [id number] #### [facility] [address] [place] [address] 58685 Home Advisor: Rojas Hernandez MD Globulin (S) [Mass/Vol] 3.1 g/dL Normal S [facility] Comment on above: Performed By: #### 1 [id number] #### [facility] [address] [place] [address] 32024 Home Advisor: Rojas Hernandez MD Glucose [Mass/Vol] 95 mg/dL Normal 72-100 [facility] Comment on above: Result Comment: Monica puncture should occur prior to sulfasalazine administration due to the potential for falsely depressed results. Venipuncture should occur prior to sulfapyridine administration due to the potential falsely elevated results. Baseline assay values before administration of sulfasalazine and sulfapyridine therapy would not be affected. Performed By: #### 1 [id number] #### [facility] [address] [place] [address] 13611 Home Advisor: Rojas Hernandez MD GOT 22 unit/L Normal 15-37 [facility] Comment on above: Result Comment: Monica puncture should occur prior to sulfasalazine administration due to the potential for falsely depressed results. Baseline assay values before administration of sulfasalazine and sulfapyridine therapy would not be affected. Performed By: #### 1 [id number] #### [facility] [address] [place] [address] 23799 Home Advisor: Rojas Hernandez MD GPT 33 unit/L Normal 16-63 [facility] Comment on above: Result Comment: Monica puncture should occur prior to sulfasalazine administration due to the potential for falsely depressed results. Baseline assay values before administration of sulfasalazine and sulfapyridine therapy would not be affected. Performed By: #### 1 [id number] #### [facility] [address] [place] [address] 75181 Home Advisor: Rojas Hernandez MD Osmolality [Osmolality] 266 mosm/kg Low 275-295 [facility] Comment on above: Performed By: #### 1 [id number] #### [facility] [address] [place] [address] 49505 Home Advisor: Rojas Hernandez MD Potassium [Moles/Vol] 4.4 mmol/L Normal 3.5-5.1 [facility] Comment on above: Performed By: #### 1 [id number] #### [facility] [address] [place] [address] Home Advisor: Rojas Hernandez MD Protein [Mass/Vol] 7.3 g/dL Normal 6.0-8.5 [facility] Comment on above: Performed By: #### 1 [id number] #### [facility] [address] [place] [address] 84682 Home Advisor: Rojas Hernandez MD Sodium [Moles/Vol] 132 mmol/L Low 135-145 [facility] Comment on above: Performed By: #### 1 [id number] #### [facility] [address] [place] [address] 17142 Home Advisor: Rojas Hernandez MD Urea nitrogen [Mass/Vol] 16 mg/dL Normal 10-20 [facility] Comment on above: Performed By: #### 1 [id number] #### [facility] [address] [place] [address] 36073 Home Advisor: Rojas Hernandez MD Urea nitrogen/Creatinine [Mass ratio] 16.0 mg/mg Normal [facility] Comment on above: Performed By: #### 1 [id number] #### [facility] [address] [place] [address] 54572 Home Advisor: Rojas Hernandez MD CT ABD PELVIS WO IV CONTRAST on 07-11-2021 CT ABD PELVIS WO IV CONTRAST EXAM DESCRIPTION: Site: CT ABD PELVIS WO IV CONTRAST RP: CT ABDOMEN PELVIS WITHOUT IV CONTRAST CLINICAL HISTORY: 61 years Male; TENDERNESS; WHAT SYMPTOMS ARE YOU EXPERIENCING? - LEFT FLANK PAIN. H/O HIATEL HERNIA REPAIR AND CHOLECYSTECTOMY. TECHNIQUE: CT of the abdomen and pelvis without intravenous contrast. All CT scans at this facility use dose modulation, iterative reconstruction, and/or weight based dosing when appropriate to reduce radiation dose to as low as reasonably achievable. COMPARISON: 11/27/2020 FINDINGS: Abdomen: Stomach: Nondistended. Large hiatal hernia. No acute edema. Liver:No focal lesions. No intrahepatic ductal distention. Gallbladder: Surgically absent Pancreas:Within normal limits Spleen:Within normal limits Right kidney: Multiple exophytic cysts are unchanged. No hydronephrosis. No calculi. Left kidney: Exophytic cyst at the lower pole is smaller, 2.5 x 6.1 x 4.5 cm where it previously measured 6.2 x 7.3 x 5.8 cm. A small exophytic upper pole cyst has not changed. No calculi or hydronephrosis. Adrenal glands: There is thickening of both adrenal glands, but no focal nodule. This has not changed. Vascular structures: Moderate aortic and branch calcifications. No aortic aneurysm. Pelvis: Small bowel:No significant distention. Appendix:Within normal limits Colon:No distention or acute pericolonic edema. No free intraperitoneal fluid or air. Bones: Multilevel chronic degenerative changes in the lumbar spine as on prior exam. No acute bone findings. Bladder: Nondistended. No adjacent edema. No pelvic mass or adenopathy. Note that evaluation of the bowel and solid organs is somewhat limited due to lack of intravenous and oral contrast. IMPRESSION: 1. A large exophytic cyst at the lower pole of the left kidney is significantly smaller since 11/27/2020, consistent with partial rupture. 2. No renal calculi or hydronephrosis 3. Large hiatal hernia as on prior exam 4. Previous cholecystectomy Electronically signed by: Celso Rizzo MD 07/11/2021 5:50 PM CDT Technologist: CARIN Dictated By: VERONICA RIZZO MD Signed By: VERONICA RIZZO MD Signed Out: 07/11/21 18:50:51 Normal [facility] ED Discharge Educationon ED Discharge Education Gastrointestinal Abdominal Pain: Care Instructions Your Care Instructions Abdominal pain has many possible causes. Some aren't serious and get better on their own in a few days. Others need more testing and treatment. If your pain continues or gets worse, you need to be rechecked and may need more tests to find out what is wrong. You may need surgery to correct the problem. Don't ignore new symptoms, such as fever, nausea and vomiting, urination problems, pain that gets worse, and dizziness. These may be signs of a more serious problem. Your doctor may have recommended a follow-up visit in the next 8 to 12 hours. If you are not getting better, you may need more tests or treatment. The doctor has checked you carefully, but problems can develop later. If you notice any problems or new symptoms, get medical treatment right away. Follow-up care is a interiano part of your treatment and safety. Be sure to make and go to all appointments, and call your doctor if you are having problems. It's also a good idea to know your test results and keep a list of the medicines you take. How can you care for yourself at home? ? Rest until you feel better. ? To prevent dehydration, drink plenty of fluids, enough so that your urine is light yellow or clear like water. Choose water and other caffeine-free clear liquids until you feel better. If you have kidney, heart, or liver disease and have to limit fluids, talk with your doctor before you increase the amount of fluids you drink. ? If your stomach is upset, eat mild foods, such as rice, dry toast or crackers, bananas, and applesauce. Try eating several small meals instead of two or three large ones. ? Wait until 48 hours after all symptoms have gone away before you have spicy foods, alcohol, and drinks that contain caffeine. ? Do not eat foods that are high in fat. ? Avoid anti-inflammatory medicines such as aspirin, ibuprofen (Advil, Motrin), and naproxen (Aleve). These can cause stomach upset. Talk to your doctor if you take daily aspirin for another health problem. When should you call for help? Call 911 anytime you think you may need emergency care. For example, call if: ? You passed out (lost consciousness). ? You pass maroon or very bloody stools. ? You vomit blood or what looks like coffee grounds. ? You have new, severe belly pain. Call your doctor now or seek immediate medical care if: ? Your pain gets worse, especially if it becomes focused in one area of your belly. ? You have a new or higher fever. ? Your stools are black and look like tar, or they have streaks of blood. ? You have unexpected vaginal bleeding. ? You have symptoms of a urinary tract infection. These may include: ? Pain when you urinate. ? Urinating more often than usual. ? Blood in your urine. ? You are dizzy or lightheaded, or you feel like you may faint. Watch closely for changes in your health, and be sure to contact your doctor if: ? You are not getting better after 1 day (24 hours). Where can you learn more? Go to https://www.[employer].n et/patientEd Enter E907 in the search box to learn more about Abdominal Pain: Care Instructions. Current as of: November 19, 2019 Content Version: 12.7 ? [employer] Care instructions adapted under license by your healthcare professional. If you have questions about a medical condition or this instruction, always ask your healthcare professional. [employer] disclaims any warranty or liability for your use of this information. Normal [facility] ED Patient Summaryon 021 ED Patient Summary [facility] Emergency Department Discharge Instructions [address] [place] [address] \.br\(Patient Copy)\.br\ \.br\Name: TRUONG ROSARIO III : 1960 \.br\Allergies: Vancomycin Hydrochloride; penicillins; erythromycin; Zoloft; Macrobid\.br\Diagnosis: Diagnoses This Visit\.br\ Cyst of left kidney (N28.1)\.br\ Flank pain ([id number])\.br\ Renal colic on left side (N23)\.br\\.br\\.br\ \.br\ Visit Date: 07/11/2021 16:36:09 \.br\ Current Date Time: 07/11/2021 19:48:35 \.br\Address: [address] [place] [address] \.br\ \.br\ \.br\Primary Care Provider: \.br\ Name: PRERNA LEMUS DO\.br\ \.br\ \.br\Emergency Department Care Providers: \.br\ Primary Physician: BROOKE ALBERT DO \.br\ \.br\ \.br\\.br\Thank you for choosing [facility] for your emergency care. You are very important to us. Our goal is to demonstrate our high quality medical care, and provide you with a very good patient experience.\.br\\.br\You may receive a survey about our service. Please take the time to complete the survey and return it so we can continue to enhance our service.\.br\\.br\Thank you again for allowing the [facility] to care for your medical needs. If you have questions about your care or follow up information please contact us at [phone].\.br\\.br\ Follow-Up Instructions\.br\ \.br\TRUONG ROSARIO III has been given these follow-up instructions:\.br\\.br\\ .br\With: Address: When: \.br\JAYE WONG, Urology [address] [facility] [place] [address]\.br\ Business (1) Within 3 to 5 days \.br\\.br\\.br\With: Address: When: \.br\PRERNA LEMUS [address] [place] [address]\.br\ Business (1) Within 3 to 5 days \.br\\.br\\.br\\.br\\.br \ Patient Education Materials\.br\ \.br\TRUONG ROSARIO III has been given the following patient education materials:\.br\\.br\Abdo abilio Pain: Care Instructions\.br\Your Care Instructions\.br\\.br\Ab dominal pain has many possible causes. Some aren't serious and get better on their own in a few days. Others need more testing and treatment. If your pain continues or gets worse, you need to be rechecked and may need more tests to find out what is wrong. You may need surgery to correct the problem.\.br\Don't ignore new symptoms, such as fever, nausea and vomiting, urination problems, pain that gets worse, and dizziness. These may be signs of a more serious problem.\.br\Your doctor may have recommended a follow-up visit in the next 8 to 12 hours. If you are not getting better, you may need more tests or treatment.\.br\The doctor has checked you carefully, but problems can develop later. If you notice any problems or new symptoms, get medical treatment right away.\.br\Follow-up care is a interiano part of your treatment and safety. Be sure to make and go to all appointments, and call your doctor if you are having problems. It's also a good idea to know your test results and keep a list of the medicines you take.\.br\How can you care for yourself at home?\.br\? Rest until you feel better.\.br\? To prevent dehydration, drink plenty of fluids, enough so that your urine is light yellow or clear like water. Choose water and other caffeine-free clear liquids until you feel better. If you have kidney, heart, or liver disease and have to limit fluids, talk with your doctor before you increase the amount of fluids you drink.\.br\? If your stomach is upset, eat mild foods, such as rice, dry toast or crackers, bananas, and applesauce. Try eating several small meals instead of two or three large ones.\.br\? Wait until 48 hours after all symptoms have gone away before you have spicy foods, alcohol, and drinks that contain caffeine.\.br\? Do not eat foods that are high in fat.\.br\? Avoid anti-inflammatory medicines such as aspirin, ibuprofen (Advil, Motrin), and naproxen (Aleve). These can cause stomach upset. Talk to your doctor if you take daily aspirin for another health problem.\.br\When should you call for help?\.br\ Call 911 anytime you think you may need emergency care. For example, call if: \.br\ ? You passed out (lost consciousness). \.br\ ? You pass maroon or very bloody stools. \.br\ ? You vomit blood or what looks like coffee grounds. \.br\ ? You have new, severe belly pain. \.br\Call your doctor now or seek immediate medical care if:\.br\ ? Your pain gets worse, especially if it becomes focused in one area of your belly. \.br\ ? You have a new or higher fever. \.br\ ? Your stools are black and look like tar, or they have streaks of blood. \.br\ ? You have unexpected vaginal bleeding. \.br\ ? You have symptoms of a urinary tract infection. These may include: \.br\? Pain when you urinate.\.br\? Urinating more often than usual.\.br\ (more content not included)... Normal [facility] ED Progress Noteon ED Progress Note 1637 brought in thro [facility] triage for left flank pain. denies fever and chills. patient medicated. patient updated on plan of care. report given to fermin null rn. 1905 - Pt care assumed from Yohana DEL ROSARIO 1915 - Pt requesting pain medication. Dr. Albert aware 1935 - Dr. Albert at bedside to update pt. IV removed. Pt given prescription and discharge instructions and verbalizes understanding with no further questions Normal [facility] HEMOon 07-11-2021 DIFF? No Normal [facility] Comment on above: Performed By: #### 9 [id number] #### [facility] [address] [place], [place] [id number] Home Advisor: Rojas Hernandez MD Erythrocyte distribution width (RBC) [Ratio] 17.4 % High 11.5-14.5 [facility] Comment on above: Performed By: #### 9 [id number] #### [facility] [address] [place], [place] [id number] Home Advisor: Rojas Hernandez MD Hematocrit (Bld) [Volume fraction] 43.5 % Normal 41.0-52.0 [facility] Comment on above: Performed By: #### 9 [id number] #### [facility] [address] [place], [place] [id number] Home Advisor: Rojas Hernandez MD Hemoglobin (Bld) [Mass/Vol] 14.3 g/dL Normal 13.5-17.5 [facility] Comment on above: Performed By: #### 9 [id number] #### [facility] [place] [id number] Home Advisor: Rojas Hernandez MD Instr WBC 9.8 Normal [facility] Comment on above: Performed By: #### 9 [id number] #### [facility] [address] [place], [place] [id number] Home Advisor: Rojas Hernandez MD MCH (RBC) [Entitic mass] 26.3 pg Low 27.0-34.0 [facility] Comment on above: Performed By: #### 9 [id number] #### [facility] [address] [place], [place] [id number] Home Advisor: Rojas Hernandez MD MCHC (RBC) [Mass/Vol] 32.9 g/dL Normal 32.0-37.0 [facility] Comment on above: Performed By: #### 9 [id number] #### [facility] [address] [place] [address] 66879 Home Advisor: Rojas Hernandez MD MCV (RBC) [Entitic vol] 79.9 fL Low 80.0-100.0 [facility] Comment on above: Performed By: #### 9 [id number] #### [facility] [address] [place] [address] 69426 Home Advisor: Rojas Hernandez MD Nucleated RBC 0 /100WBC Normal [facility] Comment on above: Performed By: #### 9 [id number] #### [facility] [address] [place] [address] 81219 Home Advisor: Rojas Hernandez MD Platelet 327 x1000 Normal 150-450 [facility] Comment on above: Performed By: #### 9 [id number] #### [facility] [address] [place] [address] 62093 Home Advisor: Rojas Hernandez MD Platelet mean volume (Bld) [Entitic vol] 8.6 fL Normal 7.4-10.4 [facility] Comment on above: Performed By: #### 9 [id number] #### [facility] [address] [place] [address] 78280 Home Advisor: Rojas Hernandez MD RBC 5.44 x10 Normal 4.70-6.10 [facility] Comment on above: Result Comment: Note : RBC morphology is normal unless otherwise stated. Evaluation performed only if differential is requested. Performed By: #### 9 [id number] #### [facility] [address] [place] [address] 25398 Home Advisor: Rojas Hernandez MD WBC 9.8 x10 Normal 4.5-11.0 [facility] Comment on above: Performed By: #### 9 [id number] #### [facility] [address] [place] [address] 65777 Home Advisor: Rojas Hernandez MD UAon 07-11-2021 Bacteria, U Occasional Normal [facility] Comment on above: Performed By: #### 1 [id number] #### [facility] [address] [place] [address] 21995 Home Advisor: Rojas Hernandez MD RBC/HPF, U <1 Normal 0-3 [facility] Comment on above: Performed By: #### 1 [id number] #### [facility] [address] [place] [address] 72187 Home Advisor: Rojas Hernandez MD Squamous Epithelial Cells, U <1 Normal [facility] Comment on above: Performed By: #### 1 [id number] #### [facility] [address] [place] [address] 01331 Home Advisor: Rojas Hernandez MD U MICRO Indicated Normal [facility] Comment on above: Performed By: #### 1 13445 #### [facility] [address] [place] [address] 74605 Home Advisor: Rojas Henrandez MD Appearance, U Clear Normal [facility] Comment on above: Performed By: #### 1 [id number] #### [facility] [address] [place] [address] 92775 Home Advisor: Rojas Hernandez MD Bilirubin, U Negative Normal Negative [facility] Comment on above: Performed By: #### 1 [id number] #### [facility] [address] [place] [address] 68666 Home Advisor: Rojas Hernandez MD Blood, U Small Abnormal Negative [facility] Comment on above: Performed By: #### 1 [id number] #### [facility] [address] [place] [address] 02286 Home Advisor: Rojas Hernandez MD Color, U Yellow Normal [facility] Comment on above: Performed By: #### 1 [id number] #### [facility] [address] [place] [address] 58921 Home Advisor: Rojas Hernandez MD Glucose Qual, U Negative Normal Negative [facility] Comment on above: Performed By: #### 1 [id number] #### [facility] [address] [place] [address] 83658 Home Advisor: Rojas Hernandez MD Ketones, U Negative Normal Negative [facility] Comment on above: Performed By: #### 1 [id number] #### [facility] [address] [place] [address] 93463 Home Advisor: Rojas Hernandez MD Leukocyte Esterase, U Negative Normal Negative [facility] Comment on above: Performed By: #### 1 79925 #### [facility] [address] [place] [address] 09574 Home Advisor: Rojas Hernandez MD Nitrite, U Negative Normal Negative [facility] Comment on above: Performed By: #### 1 [id number] #### [facility] [address] [place] [address] 97665 Home Advisor: Rojas Hernandez MD pH, U 5.5 Normal 4.5-8.0 [facility] Comment on above: Performed By: #### 1 [id number] #### [facility] [address] [place] [address] 95162 Home Advisor: Rojas Hernandez MD Protein, U Negative Normal Negative [facility] Comment on above: Performed By: #### 1 [id number] #### [facility] [address] [place] [address] 74458 Home Advisor: Rojas Hernandez MD Specific Victor, U 1.015 Normal 1.001-1. 03 5 [facility] Comment on above: Performed By: #### 1 13438 #### [facility] [address] [place] [address] 24138 Home Advisor: Rojas Hernandez MD Urobilinogen Qual, U 0.2 EU/dl Normal 0.1-1.0 mg/dl [facility] Comment on above: Result Comment: EU/d l and mg/dl are equivalent units. Performed By: #### 1 [id number] #### [facility] [address] [place] [address] 63558 Home Advisor: Rojas Hernandez MD ED Discharge Educationon ED Discharge Education Hypomagnesemia Hypomagnesemia is a condition in which the level of magnesium in the blood is low. Magnesium is a mineral that is found in many foods. It is used in many different processes in the body. Hypomagnesemia can affect every organ in the body. It can cause life-threatening problems. What are the causes? Causes of hypomagnesemia include: ? Not getting enough magnesium in your diet. ? Malnutrition. ? Problems with absorbing magnesium from the intestines. ? Dehydration. ? Alcohol abuse. ? Vomiting. ? Severe diarrhea. ? Some medicines, including medicines that make you urinate more. ? Certain diseases, such as kidney disease, diabetes, and overactive thyroid. What are the signs or symptoms? ? Involuntary shaking or trembling of a body part (tremor). ? Confusion. ? Muscle weakness. ? Sensitivity to light, sound, and touch. ? Psychiatric issues, such as depression, irritability, or psychosis. ? Sudden tightening of muscles (muscle spasms). ? Tingling in the arms and legs. ? A feeling of fluttering of the heart. These symptoms are more severe if magnesium levels drop suddenly. How is this diagnosed? To make a diagnosis, your health care provider will do a physical exam and order blood and urine tests. How is this treated? Treatment will depend on the cause and the severity of your condition. It may involve: ? A magnesium supplement. This can be taken in pill form. It can also be given through an IV tube. This is usually done if the condition is severe. ? Changes to your diet. You may be directed to eat foods that have a lot of magnesium, such as green leafy vegetables, peas, beans, and nuts. ? Eliminating alcohol from your diet. Follow these instructions at home: ? Include foods with magnesium in your diet. Foods that are rich in magnesium include green vegetables, beans, nuts and seeds, and whole grains. ? Take medicines only as directed by your health care provider. ? Take magnesium supplements if your health care provider instructs you to do that. Take them as directed. ? Have your magnesium levels monitored as directed by your health care provider. ? When you are active, drink fluids that contain electrolytes. ? Keep all follow-up visits as directed by your health care provider. This is important. Contact a health care provider if: ? You get worse instead of better. ? Your symptoms return. Get help right away if: ? Your symptoms are severe. This information is not intended to replace advice given to you by your health care provider. Make sure you discuss any questions you have with your health care provider. Document Released: 06/06/2006 Document Revised: 02/15/2017 Document Reviewed: 04/26/2015 [employer] Interactive Patient Education ? 2018 [employer] Cardiovascular Palpitations: Care Instructions Your Care Instructions Heart palpitations are the uncomfortable sensation that your heart is beating fast or irregularly. You might feel pounding or fluttering in your chest. It might feel like your heart is skipping a beat. Although palpitations may be caused by a heart problem, they also occur because of stress, fatigue, or use of alcohol, caffeine, or nicotine. Many medicines, including diet pills, antihistamines, decongestants, and some herbal products, can cause heart palpitations. Nearly everyone has palpitations from time to time. Depending on your symptoms, your doctor may need to do more tests to try to find the cause of your palpitations. Follow-up care is a interiano part of your treatment and safety. Be sure to make and go to all appointments, and call your doctor if you are having problems. It's also a good idea to know your test results and keep a list of the medicines you take. How can you care for yourself at home? ? Avoid caffeine, nicotine, and excess alcohol. ? Do not take illegal drugs, such as methamphetamines and cocaine. ? Do not take weight loss or diet medicines unless you talk with your doctor first. ? Get plenty of sleep. ? Do not overeat. ? If you have palpitations again, take deep breaths and try to relax. This may slow a racing heart. ? If you start to feel lightheaded, lie down to avoid injuries that might result if you pass out and fall down. ? Keep a record of your palpitations and bring it to your next doctor's appointment. Write down: ? The date and time. ? Your pulse. (If your heart is beating fast, it may be hard to count your pulse.) ? What you were doing when the palpitations started. ? How long the palpitations lasted. ? Any other symptoms. ? If an activity causes palpitations, slow down or stop. Talk to your doctor before you do that activity again. ? Take your medicines exactly as prescribed. Call your doctor if you think you are having a problem with your medicine. When should you call for help? Call 911 anytime you think you may need emergency care. For example, call if: ? You passed out (lost consciousness). ? You have symptoms (more content not included)... Normal [facility] ED Physician Reporton 2020 ED Physician Report Patient: TRUONG ROSARIO III Age: 60 years Sex: Male : 1960 Associated Diagnoses: Palpitations; Hypomagnesemia Author: JEFF ZHU MD Basic Information Time seen: Date & time 01/07/2021 18:25:00. History source: Patient. Arrival mode: Private vehicle. History limitation: None. History of Present Illness The patient presents with palpitations, Feels his heart beating in his chest and has a stabbing chest pain off and on as well as pain in his throat. This all started on December 27 and He was seen by his primary care doctor they did an EKG and it was normal.. The onset was 12/27/2020 . The course/duration of symptoms is fluctuating in intensity. Character of symptoms pounding. The degree at onset was moderate. The degree at present is minimal. The exacerbating factor is none. The relieving factor is none. Risk factors consist of hypertension, coronary artery disease and Has 6 stents. Prior episodes: none. Therapy today: Patient took his normal medication aspirin Brilinta and metoprolol. Associated symptoms: chest pain, dyspnea, headache, He feels like he gets winded when he walks a little bit., denies nausea and denies vomiting. Review of Systems Constitutional symptoms: Negative except as documented in HPI. Skin symptoms: Negative except as documented in HPI. Eye symptoms: Negative except as documented in HPI. ENMT symptoms: Negative except as documented in HPI. Respiratory symptoms: Negative except as documented in HPI. Cardiovascular symptoms: Negative except as documented in HPI. Gastrointestinal symptoms: Negative except as documented in HPI. Genitourinary symptoms: Negative except as documented in HPI. Musculoskeletal symptoms: Negative except as documented in HPI. Psychiatric symptoms: Negative except as documented in HPI. Endocrine symptoms: Negative except as documented in HPI. Hematologic/Lymphatic symptoms: Negative except as documented in HPI. Allergy/immunologic symptoms: Negative except as documented in HPI. Neurologic symptoms Negative except as documented in HPI. Additional review of systems information: All other systems reviewed and otherwise negative. Health Status Allergies: Allergic Reactions (Selected) Severity Not Documented Erythromycin- No reactions were documented. Macrobid- Eyes swell/ skin discoloration. Penicillins- Hives-at age 18 and vomit. Vancomycin Hydrochloride- No reactions were documented. Zoloft- No reactions were documented.. Medications: Per nurse's notes. Immunizations: Up to date. Past Medical/ Family/ Social History Medical history: No active or resolved past medical history items have been selected or recorded.. Surgical history: Drug Eluting Stent- Coronary Artery. (C9600) on 05/01/2018 at 58 Years. Coronary Angiograms. (09585) on 05/01/2018 at 58 Years. Left Heart Catheterization, left ventriculogram. (18696) on 04/16/2018 at 58 Years. Percutaneous Coronary Angioplasty. (89136) on 04/16/2018 at 58 Years. Drug Eluting Stent- Coronary Artery. (C9600) on 04/16/2018 at 58 Years. Comments: 04/17/2018 9:40 RENATE CRUZ MD, YOSI PCI with 3 by 20mm Promus NEVAEH Laparoscopy, surgical, esophagogastric fundoplasty (eg, Gabriela, Toupet procedures) (95051) on 10/20/2015 at 55 Years. Comments: 10/20/2015 8:22 Monik Scott RN LAPAROSCOPIC GABRIELA FUNDOPLICATION HERNIA on 10/20/2015 at 55 Years. Comments: 11/01/2015 11:00 Dorothy Lovelace RN 2 WEEKS AGO esophagogastroduodenosco py(EGD). (17097) on 08/17/2015 at 55 Years. COLONOSCOPY AND BIOPSY (PT:59) in 2015 at 55 Years. Cholecystectomy; (56455). EGD. Wrist surgery. Comments: 07/27/2015 14:08 Soraida Hayes MA left cardiac stents.. Family history: Leukemia Brother () Heart attack.. Father () Mother () Sister () Heart disease.. Father () Mother () Sister () . Social history: Alcohol use: Denies, Tobacco use: Denies, Drug use: Denies, Occupation: Retired, Family/social situation: . Problem list: Active Problems (28) Abdominal abscess Abdominal pain Abnormal CT of the abdomen Anemia At risk for falls Barretts esophagus Bilateral lower extremity edema Colitis Colon cancer screening Colon polyps Cyclical vomiting Depression Diarrhea GERD (gastroesophageal reflux disease) Hiatal hernia HTN (hypertension) Hypercholesteremia Hypomagnesemia Insomnia Low vitamin B12 level IN (myocardial infarction) Nausea Nausea and vomiting Physical exam RULE OUT Clostridium difficile diarrhea Seizure Sleep apnea Status post laparoscopic Gabriela fundoplication . Physical Examination General: Alert, no acute distress. Vital Signs Skin: Warm, dry, no rash. Head: Normocephalic, atraumatic. Neck: Supple, trachea midline. Eye: Normal conjunctiva, vision unchanged. Ears, nose, mouth and throat: (more content not included)... Normal [facility] ED Progress Noteon ED Progress Note WALKED INTO ED TODAY WITH . STATES HEART PALPITATIONS FOR THE PAST SEVERAL DAYS. HAS HX IN IN THE PAST WITH SEVERAL STENTS. STATES OCCASIONAL TWINGES OF CHEST DISCOMFORT WHEN HE FEELS THE PALPITATIONS. DENIES CP AT THIS TIME. DR ZHU IN ROOM TO EXAMINE. REPORT GIVEN TO [facility] RECIEVED, NOTIFIED. 1930 PT MEDICATED PER MD ORDER. WILL CONTINUE TO MONITOR. 2100 repeat labwork obtained and sent. pt resting comfortably in bed at this time. 2155 rpt mg level obtained and sent to lab. denies any needs at this time 2230 IV removed, intact. Patient discharged from ED with written discharge instructions. Patient educated appropriately. Patient voices no question or concerns at this time. Pt ambulatory with steady gait out to private vehicle. Normal [facility] LIPID PNLon 01-08-2021 Calculated LDL Cholesterol 87 mg/dL Normal 60-130 [facility] Comment on above: Result Comment: <100 mg/dl Optimal 100-129 mg/dl Near Optimal 130-159 mg/dl Borderline High 160-189 mg/dl High >=190 mg/dl Very High Performed By: #### 1 [id number] #### [facility] [address] [place] [address] Home Advisor: Rojas Hernandez MD Total Chol/HDL Chol Ratio 3.5 Normal [facility] Comment on above: Performed By: #### 1 69700 #### [facility] [address] [place] [address] Home Advisor: Rojas Hernandez MD Cholesterol [Mass/Vol] 165 mg/dL Normal 100-200 [facility] Comment on above: Result Comment: <200 mg/dl Desirable 200-239 mg/dl Borderline High >= 240 mg/dl High Performed By: #### 1 15632 #### [facility] [address] [place] [address] Home Advisor: Rojas Hernandez MD Cholesterol in HDL [Mass/Vol] 47 mg/dL Normal 40-60 [facility] Comment on above: Performed By: #### 1 05615 #### [facility] [address] [place] [address] Home Advisor: Rojas Hernandez MD Triglyceride [Mass/Vol] 153 mg/dL High 30-150 [facility] Comment on above: Performed By: #### 1 93559 #### [facility] [address] [place] [address] 269[address] Home Advisor: Rojas Hernandez MD MG LEVELon 01-08-2021 Magnesium [Mass/Vol] 2.4 mg/dL Normal 1.6-2.6 [facility] Comment on above: Performed By: #### 1 [id number] #### [facility] [address] [place] [address] Home Advisor: Rojas Hernandez MD PSAon 01-08-2021 Prostatic Specific Antigen 0.9 ng/mL Normal 0.0-4.0 [facility] Comment on above: Performed By: #### 1 25351 #### [facility] [address] [place] [address] Home Advisor: Rojas Hernandez MD ACETAMIN LEVELon 01-07-2021 Acetaminophen [Mass/Vol] ug/mL Low 10.0-30.0 [facility] Comment on above: Performed By: #### 9 [id number] #### [facility] [address] [place] [address] Home Advisor: Rojas Hernandez MD Date Last Dose Normal [facility] Comment on above: Performed By: #### 9 [id number] #### [facility] [address] [place] [address] Home Advisor: Rojas Hernandez MD Time Last Dose Normal [facility] Comment on above: Performed By: #### 9 [id number] #### [facility] [address] [place] [address] Home Advisor: Rojas Hernandez MD APTTon 01-07-2021 aPTT Coag (Bld) [Time] 29.7 s Normal 25.0-35.0 [facility] Comment on above: Performed By: #### 1 53088 #### [facility] [address] [place] [address]14[address] Home Advisor: Rojas Hernandez MD AUTO DIFFon 01-07-2021 Baso Count 0.10 x1000 Normal 0.00-0.20 [facility] Comment on above: Performed By: #### 1 90401 #### [facility] [address] [place] [address] Home Advisor: Rojas Hernandez MD Basos % 0.7 % Normal [facility] Comment on above: Performed By: #### 1 51082 #### [facility] [address] [place] [address] Home Advisor: Rojas Hernandez MD Eos Count 0.10 x1000 Normal 0.00-0.50 [facility] Comment on above: Performed By: #### 1 54971 #### [facility] [address] [place] [address] Home Advisor: Rojas Hernandez MD Eosinophils/100 WBC (Bld) 1.6 % Normal [facility] Comment on above: Performed By: #### 1 24595 #### [facility] [address] [place] [address]3661 Home Advisor: Rojas Hernandez MD Lymph Count 1.50 x1000 Normal 1.20-4.80 [facility] Comment on above: Performed By: #### 1 83073 #### [facility] [address] [place] [address] 31647 Home Advisor: Rojas Hernandez MD Lymphocytes/100 WBC (Bld) 17.8 % Normal [facility] Comment on above: Performed By: #### 1 31836 #### [facility] [address] [place] [address] 39953 Home Advisor: Rojas Hernandez MD [place] Count 0.50 x1000 Normal 0.10-1.00 [facility] Comment on above: Performed By: #### 1 50434 #### [facility] [address] [place] [address] Home Advisor: Rojas Hernandez MD Monocytes/100 WBC (Bld) 5.8 % Normal [facility] Comment on above: Performed By: #### 1 12273 #### [facility] [address] [place] [address]8870 Home Advisor: Rojas Hernandez MD Neutrophil Count (ANC) 6.30 x1000 Normal 1.40-8.80 [facility] Comment on above: Performed By: #### 1 84889 #### [facility] [address] [place] [address] 06771 Home Advisor: Rojas Hernandez MD Neutrophils/100 WBC (Bld) 74.1 % Normal [facility] Comment on above: Performed By: #### 1 77083 #### [facility] [address] [place] [address] Home Advisor: Rojas Hernandez MD Red Blood Cell Morphology See Notes Abnormal [facility] Comment on above: Result Comment: Anis ocytosis 1+ Performed By: #### 1 95083 #### [facility] [address] [place] [address] Home Advisor: MD Zacarias Cain 01-07-2021 GFR Estimated 61 Normal [facility] Comment on above: Result Comment: The GFR is calculated and is Age, Sex, and Race adjusted. Performed By: #### 1 32565 #### [facility] [address] [place] [address]1794 Home Advisor: Rojas Hernandez MD Albumin [Mass/Vol] 3.8 g/dL Normal 3.4-5.0 [facility] Comment on above: Performed By: #### 1 60894 #### [facility] [address] [place] [address] 98835 Home Advisor: Rojas Hernandez MD Albumin/Globulin [Mass ratio] 1.1 {ratio} Normal [facility] Comment on above: Performed By: #### 1 93480 #### [facility] [address] [place] [address] 26262 Home Advisor: Rojas Hernandez MD Alk Phos 58 unit/L Normal 45-117 [facility] Comment on above: Performed By: #### 1 43820 #### [facility] [address] [place] [address]335 Home Advisor: Rojas Hernandez MD Bilirubin [Mass/Vol] 0.40 mg/dL Normal 0.20-1.00 [facility] Comment on above: Result Comment: Use of this assay is not recommended for patients undergoing treatment with eltrombopag due to the potential for falsely elevated results. Performed By: #### 1 36366 #### [facility] [address] [place] [address] 60898 Home Advisor: Rojas Hernandez MD Calcium [Mass/Vol] 8.7 mg/dL Normal 8.5-10.5 [facility] Comment on above: Performed By: #### 1 74481 #### [facility] [address] [place] [address] 70286 Home Advisor: Rojas Hernandez MD Chloride [Moles/Vol] 107 mmol/L Normal 100-109 [facility] Comment on above: Performed By: #### 1 45980 #### [facility] [address] [place] [address] 27994 Home Advisor: Rojas Hernandez MD CO2 [Moles/Vol] 22.0 mmol/L Normal 21.0-32.0 [facility] Comment on above: Performed By: #### 1 98367 #### [facility] [address] [place] [address] 86248 Home Advisor: Rojas Hernandez MD Creatinine [Mass/Vol] 1.2 mg/dL Normal 0.7-1.3 [facility] Comment on above: Performed By: #### 1 99960 #### [facility] [address] [place], [place] [phone] Home Advisor: Rojas Hernandez MD Globulin (S) [Mass/Vol] 3.4 g/dL Normal [facility] Comment on above: Performed By: #### 1 66368 #### [facility] [address] [place], [place] [address] Home Advisor: Rojas Hernandez MD Glucose [Mass/Vol] 117 mg/dL High 72-100 [facility] Comment on above: Result Comment: Monica puncture should occur prior to sulfasalazine administration due to the potential for falsely depressed results. Venipuncture should occur prior to sulfapyridine administration due to the potential falsely elevated results. Baseline assay values before administration of sulfasalazine and sulfapyridine therapy would not be affected. Performed By: #### 1 46106 #### [facility] [address] [place], [place] [address] Home Advisor: Rojas Hernandez MD GOT 23 unit/L Normal 15-37 [facility] Comment on above: Result Comment: Monica puncture should occur prior to sulfasalazine administration due to the potential for falsely depressed results. Baseline assay values before administration of sulfasalazine and sulfapyridine therapy would not be affected. Performed By: #### 1 90460 #### [facility] [address] [place] [address]997 Home Advisor: Rojas Hernandez MD GPT 28 unit/L Normal 16-63 [facility] Comment on above: Result Comment: Monica puncture should occur prior to sulfasalazine administration due to the potential for falsely depressed results. Baseline assay values before administration of sulfasalazine and sulfapyridine therapy would not be affected. Performed By: #### 1 42272 #### [facility] [address] [place] [address] 54787 Home Advisor: Rojas Hernandez MD Osmolality [Osmolality] 282 mosm/kg Normal 275-295 [facility] Comment on above: Performed By: #### 1 55719 #### [facility] [address] [place] [address] 97886 Home Advisor: Rojas Hernandez MD Potassium [Moles/Vol] 3.7 mmol/L Normal 3.5-5.1 [facility] Comment on above: Performed By: #### 1 04216 #### [facility] [address] [place] [address] 48147 Home Advisor: Rojas Hernandez MD Protein [Mass/Vol] 7.2 g/dL Normal 6.0-8.5 [facility] Comment on above: Performed By: #### 1 31527 #### [facility] [address] [place] [address] 54576 Home Advisor: Rojas Hernandez MD Sodium [Moles/Vol] 141 mmol/L Normal 135-145 [facility] Comment on above: Performed By: #### 1 38809 #### [facility] [address] [place] [address] 00700 Home Advisor: Rojas Hernandez MD Urea nitrogen [Mass/Vol] 12 mg/dL Normal 10-20 [facility] Comment on above: Performed By: #### 1 28262 #### [facility] [address] [place] [address] Home Advisor: Rojas Hernandez MD Urea nitrogen/Creatinine [Mass ratio] 10.0 mg/mg Normal [facility] Comment on above: Performed By: #### 1 03505 #### [facility] [address] [place] [address] 92553 Home Advisor: Rojas Hernandez MD D Dimer HSon 01-07-2021 D Dimer HS 309 ng/mL FEU Normal <=499 [facility] Comment on above: Result Comment: Excl usion of PE and DVT The D Dimer HS assay is reported in ng/ml Fibrinogen Equivalent Units (FEU). Per camera person?s instructions for use, a value less than 500ng/ml (FEU) may help to exclude DVT and /or PE in outpatients when the assay is used with a clinical pretest probability assessment. D-Dimer used for DIC Screens Assay results should be used with other information, including the clinical context in forming a diagnosis. Performed By: #### 1 56945 #### [facility] [address] [place] [address] 20660 Home Advisor: Rojas Hernandez MD HEMOon 01-07-2021 DIFF? No Normal [facility] Comment on above: Performed By: #### 1 34504 #### [facility] [address] [place] [address] 89334 Home Advisor: Rojas Hernandez MD Erythrocyte distribution width (RBC) [Ratio] 17.3 % High 11.5-14.5 [facility] Comment on above: Performed By: #### 1 66349 #### [facility] [address] [place] [address] 66300 Home Advisor: Rojas Hernandez MD Hematocrit (Bld) [Volume fraction] 37.4 % Low 41.0-52.0 [facility] Comment on above: Performed By: #### 1 62157 #### [facility] [address] [place] [address] 84262 Home Advisor: Rojas Hernandez MD Hemoglobin (Bld) [Mass/Vol] 12.3 g/dL Low 13.5-17.5 [facility] Comment on above: Performed By: #### 1 54799 #### [facility] [address] [place] [address] 09092 Home Advisor: Rojas Hernandez MD Instr WBC 8.4 Normal [facility] Comment on above: Performed By: #### 1 17418 #### [facility] [address] [place] [address] 86127 Home Advisor: Rojas Hernandez MD MCH (RBC) [Entitic mass] 27.6 pg Normal 27.0-34.0 [facility] Comment on above: Performed By: #### 1 99575 #### [facility] [address] [place], [place] [address] Home Advisor: Rojas Hernandez MD MCHC (RBC) [Mass/Vol] 33.0 g/dL Normal 32.0-37.0 [facility] Comment on above: Performed By: #### 1 45997 #### [facility] [address] [place], [place] [address] Home Advisor: Rojas Hernandez MD MCV (RBC) [Entitic vol] 83.8 fL Normal 80.0-100.0 [facility] Comment on above: Performed By: #### 1 70004 #### [facility] [address] [place] [address] 71376 Home Advisor: Rojas Hernandez MD Nucleated RBC 0 /100WBC Normal [facility] Comment on above: Performed By: #### 1 46661 #### [facility] [address] [place] [address] 21740 Home Advisor: Rojas Hernandez MD Platelet 299 x1000 Normal 150-450 [facility] Comment on above: Performed By: #### 1 51556 #### [facility] [address] [place] [address] 50002 Home Advisor: Rojas Hernandez MD Platelet mean volume (Bld) [Entitic vol] 7.9 fL Normal 7.4-10.4 [facility] Comment on above: Performed By: #### 1 03922 #### [facility] [address] [place] [address] 03574 Home Advisor: Rojas Hernandez MD RBC 4.46 x10 Low 4.70-6.10 [facility] Comment on above: Result Comment: Note : RBC morphology is normal unless otherwise stated. Evaluation performed only if differential is requested. Performed By: #### 1 22337 #### [facility] [address] [place] [address] 19235 Home Advisor: Rojas Hernandez MD WBC 8.4 x10 Normal 4.5-11.0 [facility] Comment on above: Performed By: #### 1 32597 #### [facility] [address] [place] [address] 20660 Home Advisor: Rojas Hernandez MD MG LEVELon 01-07-2021 Magnesium [Mass/Vol] 4.1 mg/dL High 1.6-2.6 [facility] Comment on above: Result Comment: rchk d Performed By: #### 1 41801 #### [facility] [address] [place] [address] 64904 Home Advisor: Rojas Hernandez MD Magnesium [Mass/Vol] 1.0 mg/dL Critically abnormal 1.6-2.6 [facility] Comment on above: Result Comment: ckdv /rbr/adria cobos rn by exnjrnvl76/16/2021 19:17:15 EDT Performed By: #### 1 94325 #### [facility] [address] [place] [address] 93484 Home Advisor: Rojas Hernandez MD PT INRon 01-07-2021 INR Coag (PPP) [Relative time] 1.0 {INR} Normal [facility] Comment on above: Result Comment: INR Reference Range: Normal reference range for INR on patients not on anticoagulant therapy: 0.9-1.1 General therapeutic range for patients on anticoagulant therapy: 2.0-3.5 Performed By: #### 1 12472 #### [facility] [address] [place], [place] [address] Home Advisor: Rojas Hernandez MD Protime Patient 11.8 seconds Normal 10.1-13.3 [facility] Comment on above: Performed By: #### 1 16902 #### [facility] [address] [place], [place] [address] Home Advisor: Rojas Hernandez MD THY GPon 01-07-2021 Free T4 [Mass/Vol] 0.94 ng/dL Normal 0.76-1.40 [facility] Comment on above: Result Comment: High levels of serum biotin may interfere with this test. Performed By: #### 1 [id number] #### [facility] [address] [place], [place] [address] Home Advisor: Rojas Hernandez MD TSH Qn 2.18 m[IU]/L Normal 0.36-3.74 [facility] Comment on above: Result Comment: High levels of serum biotin may interfere with this test. Performed By: #### 1 [id number] #### [facility] [address] [place], [place] [id number] Home Advisor: Rojas Hernandez MD TROPONINon 01-07-2021 Troponin I.cardiac [Mass/Vol] ng/mL Normal 0.000-0.[address] [place] [address] Comment on above: Result Comment: This test is a quantitative determination of cardiac troponin I. High levels of serum biotin may interfere with this test. Performed By: #### 1 [id number] #### [facility] [address] [place], [place] [address] Home Advisor: Rojas Hernandez MD Troponin I.cardiac [Mass/Vol] ng/mL Normal 0.000-0.09 9 [facility] Comment on above: Result Comment: This test is a quantitative determination of cardiac troponin I. High levels of serum biotin may interfere with this test. Performed By: #### 9 [id number] #### [facility] [address] [place] [address] Home Advisor: Rojas Hernandez MD XR CHEST PORTABLEon 01-08-20 XR CHEST PORTABLE EXAM DESCRIPTION: XR CHEST PORTABLE, single view CLINICAL HISTORY: 60 years Male, CHEST PAIN. Palpitations. COMPARISON: Single view of the chest 11/04/2019 FINDINGS: Lungs: Lungs are clear. No pneumonia or edema. No pneumothorax or pleural effusion. Mediastinum: Cardiac and mediastinal silhouette are normal. Bones: Osseous structures are normal. IMPRESSION: No acute process. No significant interval change. Electronically signed by: Aliza Dupree MD 01/07/2021 6:24 PM CDT Technologist: LSS Dictated By: ALIZA DUPREE MD Signed By: ALIZA DUPREE MD Signed Out: 01/07/21 19:24:52 Normal [facility] proBNPon 01-07-2021 Natriuretic peptide B (Bld) [Mass/Vol] 71 pg/mL Normal 0-124 [facility] Comment on above: Order Comment: order able at [facility] ONLY Result Comment: Acut e CHF Rule-in: less than 50 yrs old greater than or equal to 450 pg/ml greater than 50 yrs old greater than or equal to 900 pg/ml Performed By: #### 9 [id number] #### [facility] [address] [place] [address] Home Advisor: Rojas Hernandez MD C BLOODon 12-07-2020 C BLOOD [facility] pt of Laboratory Services [address] [place] [phone] Name: TRUONG ROSARIO III : 1960 Admitting NYDIA TURK MD Provider: Gender: Male Financial [id number] Number: Location: 1DOF; D166; 02 Admit 11/27/2020 Date: Discharge 11/28/2020 Date: Microbiology PROCEDURE: C BLOOD SOURCE: Blood BODY SITE: COLLECTED DATE/TIME: 11/27/2020 01:50 EST RECEIVED DATE/TIME: 11/27/2020 13:38 EST START DATE/TIME: 11/27/2020 13:38 EST FREE TEXT SOURCE: ORDERING PHYSICIAN: NYDIA TURK MD AMENDED REPORTS Amended Report [] Verified Date/Time: 12/07/2020 06:38 EDT Positive after 6 days. Staphylococcus epidermidis Gram stain results phoned to: Dr Serra 12/03/2020 08:04:42 RBR, by KIMBERLY. SUSCEPTIBILITY RESULTS Staphylococcus epidermidis Antibiotic JOSE Dil Ciprofloxacin <=0.5 Clindamycin <0.25 Erythromycin <0.25 Gentamicin <=0.5 Moxifloxacin <0.25 Oxacillin <=0.25 [C1] Rifampin <=0.5 Tetracycline 2 Trimethoprim/Sulfamethox azole <=10 Vancomycin 1 L=Low, H= High, *= Abnormal, C=Critical, f=Footnote, c=Corrected, i=Interp Data Name: TRUONG ROSARIO III Print Date/ 12/07/2020 06:38 EDT Time: [facility] [address] [place] [phone] Name: TRUONG ROSARIO III : 1960 Admitting NYDIA TURK MD Provider: Gender: Male Financial [id number] Number: Location: 1DOF; D166; 02 Admit 11/27/2020 Date: Discharge 11/28/2020 Date: Microbiology SUSCEPTIBILITY RESULTS Staphylococcus epidermidis Antibiotic JOSE Interp Amp/Sulbactam Susceptible Cefazolin Susceptible Ciprofloxacin Susceptible Clindamycin Susceptible Erythromycin Susceptible Gentamicin Susceptible Moxifloxacin Susceptible Oxacillin Susceptible [C2] Rifampin Susceptible Tetracycline Susceptible Trimethoprim/Sulfamethox azole Susceptible Vancomycin Susceptible Corrected Results C1: Oxacillin Corrected from Not Applicable on 12/06/2020 11:29 EDT by Anya Joshi Corrected from <0.25 on 12/06/2020 06:55 EDT by Anya Joshi C2: Oxacillin Corrected from Susceptible on 12/06/2020 06:55 EDT by Anya Joshi Corrected from Not Applicable on 12/06/2020 11:29 EDT by Anya Joshi L=Low, H= High, *= Abnormal, C=Critical, f=Footnote, c=Corrected, i=Interp Data Name: TRUONG ROSARIO III Print Date12/07/2020 06:38 EDT Time: Normal [facility] Comment on above: Performed By: #### 1 [id number] #### [facility] [address] [place] [address] Home Advisor: MD Lam Cain BLOODon 12-02-2020 BLOOD [facility] of [facility] Services [address] [place] [phone] Name: TRUONG ROSARIO III : 1960 Admitting NYDIA TURK MD Provider: Gender: Male Financial [id number] Number: Location: 1DOF; D166; 02 Admit 11/27/2020 Date: Discharge 11/28/2020 Date: Microbiology PROCEDURE: C BLOOD SOURCE: Blood BODY SITE: COLLECTED DATE/TIME: 11/27/2020 01:45 EST RECEIVED DATE/TIME: 11/27/2020 13:38 EST START DATE/TIME: 11/27/2020 13:38 EST FREE TEXT SOURCE: ORDERING PHYSICIAN: NYDIA TURK MD FINAL REPORTS Final Report [] Verified Date/Time: 12/02/2020 19:00 EST No growth after 5 days. L=Low, H= High, *= Abnormal, C=Critical, f=Footnote, c=Corrected, i=Interp Data Name: TRUONG ROSARIO III Print Date/ 12/02/2020 19:00 EST Time: Normal [facility] Comment on above: Performed By: #### 1 [id number] ####[facility] [id number] [place] [address] Medical Director: Rojas Hernandez MD BASICMETAon 11-28-2020 Calcium [Mass/Vol] 8.3 mg/dL Low 8.5-10.5 [facility] Comment on above: Performed By: #### 9 [id number] #### [facility] [address] [place] [address] Home Advisor: Rojas Hernandez MD Chloride [Moles/Vol] 112 mmol/L High 100-109 [facility] Comment on above: Performed By: #### 9 [id number] #### [facility] [address] [place] [address] Home Advisor: Rojas Hernandez MD CO2 [Moles/Vol] 25.3 mmol/L Normal 21.0-32.0 [facility] Comment on above: Performed By: #### 9 [id number] #### [facility] [address] [place] [address] Home Advisor: Rojas Hernandez MD Creatinine [Mass/Vol] 1.1 mg/dL Normal 0.7-1.3 [facility] Comment on above: Performed By: #### 9 [id number] #### [facility] [address] [place] [address] Home Advisor: Rojas Hernandez MD GFR AA >60 Normal [facility] Comment on above: Result Comment: Afri can Zambian GFR Calc Medical judgement is necessary to interpret GFR. The calculated GFR may not accurately reflect renal status in patients >70 years, women, acutely ill hospitalized patients and patients with acute renal failure or known renal disease. The MDRD GFR formula is valid only for adults greater than 18 years of age. Note: Creatinine clearance (not GFR) should be used for drug dosing. Performed By: #### 9 [id number] #### [facility] [address] [place] [address] Home Advisor: Rojas Hernandez MD Glomerular Filtration Rate >60 Normal [facility] Comment on above: Result Comment: Non GFR Calc Medical judgement is necessary to interpret GFR. The calculated GFR may not accurately reflect renal status in patients >70 years, women, acutely ill hospitalized patients and patients with acute renal failure or known renal disease. The MDRD GFR formula is valid only for adults greater than 18 years of age. Note: Creatinine clearance (not GFR) should be used for drug dosing. Performed By: #### 9 [id number] #### [facility] [address] [place] [address] Home Advisor: Rojas Hernandez MD Glucose [Mass/Vol] 75 mg/dL Normal 72-100 [facility] Comment on above: Result Comment: Monica puncture should occur prior to sulfasalazine administration due to the potential for falsely depressed results. Venipuncture should occur prior to sulfapyridine administration due to the potential falsely elevated results. Baseline assay values before administration of sulfasalazine and sulfapyridine therapy would not be affected. Performed By: #### 9 [id number] #### [facility] [address] [place] [address] Home Advisor: Rojas Hernandez MD Osmolality [Osmolality] 283 mosm/kg Normal 275-295 [facility] Comment on above: Performed By: #### 9 [id number] #### [facility] [address] [place] [address] Home Advisor: Rojas Hernandez MD Potassium [Moles/Vol] 3.7 mmol/L Normal 3.5-5.1 [facility] Comment on above: Performed By: #### 9 [id number] #### [facility] [address] [place] [address] Home Advisor: Rojas Hernandez MD Sodium [Moles/Vol] 142 mmol/L Normal 135-145 [facility] Comment on above: Performed By: #### 9 [id number] #### [facility] [address] [place] [address] Home Advisor: Rojas Hernandez MD Urea nitrogen [Mass/Vol] 15 mg/dL Normal 10-20 [facility] Comment on above: Performed By: #### 9 [id number] #### [facility] [address] [place] [address] Home Advisor: Rojas Hernandez MD Urea nitrogen/Creatinine [Mass ratio] 13.8 mg/mg Normal [facility] Comment on above: Performed By: #### 9 [id number] #### [facility] [address] [place] [address] Home Advisor: Rojas Hernandez MD C URINEon 11-28-2020 C URINE [facility] [address] [place] [phone] Name: TRUONG ROSARIO III : 1960 Admitting NYDIA TURK MD Provider: Gender: Male [facility] [id number] Number: Location: 1DOF; D166; 02 Admit 11/27/2020 Date: Discharge Date: Microbiology PROCEDURE: C URINE SOURCE: CLEAN CATCH BODY SITE: COLLECTED DATE/TIME: 11/27/2020 06:28 EST RECEIVED DATE/TIME: 11/27/2020 13:42 EST START DATE/TIME: 11/27/2020 13:42 EST FREE TEXT SOURCE: ORDERING PHYSICIAN: NYDIA TURK MD FINAL REPORTS Final Report [] Verified Date/Time: 11/28/2020 09:25 EST No significant growth. L=Low, H= High, *= Abnormal, C=Critical, f=Footnote, c=Corrected, i=Interp Data Name: TRUONG ROSARIO III Print Date/ 11/28/2020 09:25 EST Time: Normal [facility] Comment on above: Performed By: #### 1 [id number] #### [facility] [address] [place], [place] [address] Home Advisor: Rojas Hernandez MD CBCNDon 11-28-2020 Erythrocyte distribution width (RBC) [Ratio] 16.8 % High 11.5-14.5 [facility] Comment on above: Performed By: #### 9 [id number] #### [facility] [address] [place], [place] [address] Home Advisor: Rojas Hernandez MD Hematocrit (Bld) [Volume fraction] 35.9 % Low 41.0-52.0 [facility] Comment on above: Performed By: #### 9 [id number] #### [facility] [address] [place] [address] Home Advisor: Rojas Hernandez MD Hemoglobin (Bld) [Mass/Vol] 11.6 g/dL Low 13.5-17.5 [facility] Comment on above: Result Comment: Revi ewed Performed By: #### 9 [id number] #### [facility] [address] [place] [address] Home Advisor: Rojas Hernandez MD Instr WBC ND 6.8 Normal [facility] Comment on above: Performed By: #### 9 [id number] #### [facility] [address] [place] [address] Home Advisor: Rojas Hernandez MD MCH (RBC) [Entitic mass] 27.2 pg Normal 27.0-34.0 [facility] Comment on above: Performed By: #### 9 [id number] #### [facility] [address] [place] [address] Home Advisor: Rojas Hernandez MD MCHC (RBC) [Mass/Vol] 32.4 g/dL Normal 32.0-37.0 [facility] Comment on above: Performed By: #### 9 [id number] #### [facility] [address] [place] [address] Home Advisor: Rojas Hernandez MD MCV (RBC) [Entitic vol] 83.8 fL Normal 80.0-100.0 [facility] Comment on above: Performed By: #### 9 [id number] #### [facility] [address] [place] [address] Home Advisor: Rojas Hernandez MD Platelet 245 x1000 Normal 150-450 [facility] Comment on above: Result Comment: Revi ewed Performed By: #### 9 [id number] #### [facility] [address] [place] [address] Home Advisor: Rojas Hernandez MD Platelet mean volume (Bld) [Entitic vol] 8.1 fL Normal 7.4-10.4 [facility] Comment on above: Performed By: #### 9 [id number] #### [facility] [address] [place] [address] Home Advisor: Rojas Hernandez MD RBC 4.28 x10 Low 4.70-6.10 [facility] Comment on above: Result Comment: Note : RBC morphology is normal unless otherwise stated. Evaluation performed only if differential is requested. Performed By: #### 9 [id number] #### [facility] [address] [place] [address] Home Advisor: Rojas Hernandez MD WBC 6.8 x10 Normal 4.5-11.0 [facility] Comment on above: Performed By: #### 9 [id number] #### [facility] [address] [place] [address] Home Advisor: Rojas Hernandez MD Nursing Clinical Noteon Nursing Clinical Note 0700-Morning round s report received from Mimi DEL ROSARIO. Pt alert and oriented sitting up in bed, call miranda within reach. 0825-Pt medicated with morning orders, assessment complete, see Powerchart. Pt updated with plan of care, pt verbalized understanding without any further questions. All needs met at this time. Call miranda within reach. Normal [facility] COVID-19 by PCR [facility]on 11-27 SARS-CoV-2 (COVID-19) RNA VILMA+probe Ql (Unsp spec) Negative Normal [facility] Comment on above: Performed By: #### C [id number] #### [facility] [address] [place] [address] Home Advisor: Rojas Hernandez MD Consult Reporton 11-27-2020 Consult Report Patient: TRUONG ROSARIO III Age: 60 years Sex: Male : 1960 Associated Diagnoses: None Author: EVANGELINA GIORDANO, [facility] Consult Note IMPRESSION: 1. Chest pain: The setting of intractable cyclic vomiting 2. CAD, NEVAEH to OM, LAD, NEVEAH x 4 to the RCA 3. Hypertension 4. Hyperlipidemia 5. Depression 6. GERD PLAN: No evidence of acute coronary syndrome. EKG without changes. Troponins are negative. Symptoms most likely related to esophageal dysmotility or related to intractable vomiting. Consider GI referral. Will follow with outpatient operator engineer in 1 to 2 weeks post discharge. Continue all outpatient cardiac medicines including DAPT with aspirin and Brilinta due to multiple overlapping stents in all coronary beds, antianginal as tolerated. He follows with Dr. Cruz. --------- History of Presenting Illness: 61-year-old with above complex past medical history, underwent multivessel PCI in 2018, presents with intractable vomiting. He was diagnosed with cyclic vomiting disorder with recurrent severe vomiting and large hiatal hernia. Cardiology consulted for chest pain. Currently patient is asymptomatic laying flat. He complaining of generalized fatigue however no chest pain shortness of breath palpitation lightheadedness. Home Medications (15) Active aspirin 81 mg oral tablet, chewable 81 mg = 1 tabs, ORAL, DAILY atorvastatin 40 mg oral tablet 40 mg = 1 tabs, ORAL, DAILY Brilinta (ticagrelor) 90 mg oral tablet 90 mg = 1 tabs, ORAL, BID citalopram 40 mg oral tablet 40 mg = 1 tabs, ORAL, DAILY lansoprazole 15 mg oral delayed release capsule 15 mg = 1 caps, ORAL, DAILY metoclopramide 10 mg oral tablet 10 mg = 1 tabs, PRN, ORAL, DAILY metoprolol succinate 25 mg oral tablet, extended release 25 mg = 1 tabs, ORAL, DAILY Mobic 15 mg oral tablet 15 mg = 1 tabs, ORAL, PRN nitroglycerin 0.4 mg sublingual tablet 0.4 mg = 1 tabs, PRN, Sublingual, Q5MIN Norvasc 10 mg oral tablet 10 mg = 1 tabs, ORAL, DAILY Refresh Redness Relief 1 drops, PRN, Both Eyes, DAILY sucralfate 1 g oral tablet 1 g = 1 tabs, ORAL, BID traZODone 50 mg oral tablet 75 mg = 1.5 tabs, ORAL, QHS TriCor 145 mg, ORAL, DAILY WITH BREAKFAST Zestril 20 mg oral tablet 20 mg = 1 tabs, ORAL, DAILY Medications (10) Active Scheduled: (9) AMLODIPINE 10MG TAB 10 mg 1 tabs, ORAL, DAILY ASPIRIN 81 MG CHEW TAB 81 mg 1 tabs, ORAL, DAILY CITALOPRAM 20MG TAB 40 mg 2 tabs, ORAL, DAILY FENOFIBRATE 145MG TAB 145 mg 1 tabs, ORAL, DAILY WITH BREAKFAST KCL 40 mEq 20 mL, IV Piggyback, ONCE PANTOPRAZOLE 40MG TAB 40 mg 1 tabs, ORAL, DAILY SUCRALFATE 1 GM TABLET 1 g 1 tabs, ORAL, QID TICAGRELOR 90MG TAB 90 mg 1 tabs, ORAL, BID TrazODONE 50MG TABLET 75 mg 1.5 tabs, ORAL, QHS Continuous: (1) LACTATED RINGERS 1,000 mL 1,000 mL, IV, 150 mL/hr PRN: (0) Allergies (5) Active Reaction erythromycin None Documented Macrobid eyes swell/ skin discoloration penicillins vomit Vancomycin Hydrochloride None Documented Zoloft None Documented Review of Systems: As per HPI, all other systems reviewed and negative Cardiac History: [As above] Past Medical History: [As above] Surgical History: [Reviewed] Social History: History Tobacco:Former smoker Performed Date Time:01/12/2016 Substance abuse:Past Performed Date Time:06/09/2019 Family History: Father (): Heart attack..; Heart disease.. Mother (): Heart attack..; Heart disease.. Brother (): Leukemia Sister (): Heart attack..; Heart disease.. PHYSICAL EXAM: Vital Signs (last 24 hrs) Last Charted Temp Oral 36.6 degC (NOV 27 08:34) Heart Rate Peripheral 86 bpm (NOV 27 08:36) Resp Rate 12 br/min (NOV 27 08:36) SBP H 157mmHg (NOV 27 08:34) DBP 90 mmHg (NOV 27 08:34) Weight 90.8 kg (NOV 27 08:39) Height 178 cm (NOV 27 08:39) BMI 28.66 (NOV 27 08:39) General: [Awake alert oriented not in acute distress.] Neck: [No JVD. no carotid bruit no neck stiffness] CV: [RRR normal S1-S2, no murmur, no gallop. PMI not displaced] Lungs: [Good bilateral air entry, clear to auscultation. No crackles no wheezing.] Abdomen: [Soft bowel sounds positive nontender nondistended. No organomegaly.] Extremities: [Peripheral pulse positive throughout. No lower extremity edema. No clubbing no cyanosis.] Neuro: [Cranial nerves grossly intact. No focal deficit.] I/O's and DAILY WEIGHTS [default] ECG/Telemetry: [NSR with no acute ischemic changes] Radiology: [CXR without infiltrate or effusion] LABS: Labs (Last four charted values) WBC H 17.8 (NOV 27) Hgb 14.5 (NOV 27) Hct 44.0 (NOV 27) Plt 449 (NOV 27) Na 140 (NOV 27) K L 3.4 (NOV 27) CO2 25.6 (NOV 27) Cl L 98 (NOV 27) Cr H 1.9 (NOV 27) BUN H 31 (NOV 27) Glucose Random H 171 (NOV 27) Mg 1.8 (NOV 27) Ca 10.1 (NOV 27) INR 1.1 (MA (more content not included)... Normal [facility] ED Discharge Educationon ED Discharge Education Normal [facility] ED Physician Reporton 2020 ED Physician Report Patient: TRUONG ROSARIO III Age: 60 years Sex: Male : 1960 Associated Diagnoses: Acute chest pain; Acute abdominal pain; Vomiting; Dehydration Author: NYDIA TURK MD Basic Information Time seen: Date & time 11/27/2020 01:18:00. History source: Patient. Arrival mode: Private vehicle. History limitation: None. History of Present Illness Patient with a history of cyclic vomiting syndrome presents with waxing/waning epigastric and periumbilical pain x two days. Worse with oral intake. Not lateralizing. Associated vomiting, and diarrhea (five episodes over past day, non-bloody). Pt has had prior repair of hiatal hernia, as well as cholecystectomy. No recent antibiotics or hospitalization. Review of Systems Constitutional symptoms: No fever, ENMT symptoms: Patient denies sneezing, rhinorrhea, sore throat; no known recent Covid exposure. . Respiratory symptoms: No shortness of breath, no cough. Cardiovascular symptoms: No chest pain, Gastrointestinal symptoms: No hematemesis., No rectal bleeding, Genitourinary symptoms: No dysuria, no hematuria. Additional review of systems information: All other systems reviewed and otherwise negative. Health Status Allergies: Allergic Reactions (Selected) Severity Not Documented Erythromycin- No reactions were documented. Macrobid- Eyes swell/ skin discoloration. Penicillins- Hives-at age 18 and vomit. Vancomycin Hydrochloride- No reactions were documented. Zoloft- No reactions were documented. Nonallergic Reactions (Selected) Severity Not Documented Morphine- Hallucinations.. Past Medical/ Family/ Social History Medical history: Cyclic vomiting syndrome. CAD. HTN. Seizures.. Surgical history: Drug Eluting Stent- Coronary Artery. (C9600) on 05/01/2018 at 58 Years. Coronary Angiograms. ([id number]) on 05/01/2018 at 58 Years. Left Heart Catheterization, left ventriculogram. (00308) on 04/16/2018 at 58 Years. Percutaneous Coronary Angioplasty. ([id number]) on 04/16/2018 at 58 Years. Drug Eluting Stent- Coronary Artery. (C9600) on 04/16/2018 at 58 Years. Comments: 04/17/2018 9:40 RENATE CRUZ MD, YOSI PCI with 3 by 20mm Promus NEVAEH Laparoscopy, surgical, esophagogastric fundoplasty (eg, Gabriela, Toupet procedures) ([id number]) on 10/20/2015 at 55 Years. Comments: 10/20/2015 8:22 Monik Scott RN LAPAROSCOPIC GABRIELA FUNDOPLICATION HERNIA on 10/20/2015 at 55 Years. Comments: 11/01/2015 11:00 ALFONZO Cherry RN, Dorothy 2 WEEKS AGO esophagogastroduodenosco py(EGD). (24013) on 08/17/2015 at 55 Years. COLONOSCOPY AND BIOPSY (PT:59) in 2014 at 55 Years. Cholecystectomy; (04012). EGD. Wrist surgery. Comments: 07/27/2015 14:08 EST - Gianna WIRGHT, Soraida left cardiac stents., Reviewed as documented in chart. Social history: Alcohol use: Denies, Tobacco use, Drug use: Marijuana. Physical Examination Vital Signs Vital Signs 11/27/2020 0:39 EST Temperature Oral 36.6 degC NORMAL Peripheral Pulse Rate 127 bpm HI Respiratory Rate 18 br/min NORMAL Systolic Blood Pressure 174 mmHg HI Diastolic Blood Pressure 83 mmHg NORMAL SpO2 95 % NORMAL Oxygen Therapy Room air Weight Measured Type of Scale Standing Scale Height/Length Dosing 177.8 cm Weight Dosing 100 kg Body Mass Index Dosing 32 . Oxygen saturation. General: Alert, no acute distress, Not ill-appearing, Skin: Warm, dry. Head: Normocephalic, atraumatic. Eye: Normal conjunctiva. Cardiovascular: No murmur, Normal peripheral perfusion, No edema, Regular rhythm, increased rate.. Respiratory: Lungs are clear to auscultation, respirations are non-labored, breath sounds are equal. Gastrointestinal: Soft, Non distended, Tenderness: Mild, epigastric, Guarding: Negative, Bowel sounds: Hyperactive. Musculoskeletal: No tenderness, no swelling. Psychiatric: Cooperative, appropriate mood & affect, normal judgment. Neurological Alert and oriented to person, place, time, and situation, No focal neurological deficit observed. Medical Decision Making Electrocardiogram: Time 11/27/2020 01:18:00, rate 109, EP Interp, Sinus tachycardia. Non-specific ST changes; no ST elevation. No T change. Slightly prolonged QTc.. Results review: Elevated WBC. Hg 14.5. Troponin 0.07. BUN 31, cr 1.9. K 3.4; normal Mg. GOT 38; other hepatic labs and lipase wnl. Lactate mildly elevated at 2.3. . Radiology results: Reviewed radiologist's report, reveals no acute disease process. After careful consideration of all the relevant factors involved, my judgment is that the benefit of CT scan in helping to determine diagnosis and evaluate for possibly emergent conditions which might require surgery/antibiotics/hosp italization outweighs the risk of radiation exposure, and that reasonably-available alternative radiological studies would not adequately substitute. 02:51 Repeat 12-lead EKG, my interpretation: HR = 94. No ST or T abnormality. Prolonged QT. No ectopy. (more content not included)... Normal [facility] ED Progress Noteon ED Progress Note Pt presents to ED fr om home w/ c/o abd pain, n/v/d x 1-2days. Pt has hx of cyclic vomiting. IV placed, labs drawn and EKG done. Pt tachy upon arrival. RR unlabored. 0100: Pt medicated per orders. 0600: pt to be admitted to [facility]. Awaiting bed assignment. Pt to be transferred to [facility], Physicians called for transport. ETA 0730, Report given to Thelma DEL ROSARIO at [facility]. Patient care transferred to EMS without incident. Normal [facility] Nursing Clinical Noteon Nursing Clinical Note 1348-Pt with compl aints of headache, pt medicated with Tylenol per orders. All needs met at this time. Call miranda within reach. Normal [facility] TROPONINon 11-27-2020 Troponin I.cardiac [Mass/Vol] 0.096 ng/mL Normal 0.000-0.09 9 [facility] Comment on above: Result Comment: This test is a quantitative determination of cardiac troponin I. High levels of serum biotin may interfere with this test. Performed By: #### 1 [id number] #### [facility] [address] [place] [address] 22126 Home Advisor: Rojas Hernandez MD U DOAon 11-27-2020 Amphetamines, U Negative [facility] Comment on above: Performed By: #### 1 31037 #### [facility] [address] [place] [address] 52566 Home Advisor: Rojas Hernandez MD Barbituates, U Negative [facility] Comment on above: Performed By: #### 1 46933 #### [facility] [address] [place] [address] 76099 Home Advisor: Rojas Hernandez MD Benzodiazepines, U Negative Normal [facility] Comment on above: Performed By: #### 1 27642 #### [facility] [address] [place] [address] 69747 Home Advisor: Rojas Hernandez MD Cocaine, U Negative Normal [facility] Comment on above: Performed By: #### 1 35708 #### [facility] [address] [place] [address] 00814 Home Advisor: Rojas Hernandez MD Ecstasy, U see note Normal [facility] Comment on above: Result Comment: Init ially positive for MDMA family of substances which may include prescription medications. Clinical judgment required for interpretation. Performed By: #### 1 15105 #### [facility] [address] [place] [address] 01067 Home Advisor: Rojas Hernandez MD Opiates, U Negative [facility] Comment on above: Performed By: #### 1 96808 #### [facility] [address] [place] [address] 04892 Home Advisor: Rojas Hernandez MD PCP, U Negative [facility] Comment on above: Performed By: #### 1 05340 #### [facility] [address] [place] [address] 71071 Home Advisor: Rojas Hernandez MD THC, U Positive [facility] Comment on above: Performed By: #### 1 72172 #### [facility] [address] [place] [address] 68186 Home Advisor: Rojas Hernandez MD UAon 11-27-2020 Appearance, U Slightly Cloudy Normal [facility] Comment on above: Performed By: #### 1 26773 #### [facility] [address] [place] [address] 99987 Home Advisor: Rojas Hernandez MD Bacteria, U Occasional Normal [facility] Comment on above: Performed By: #### 1 12367 #### [facility] [address] [place] [address] 47659 Home Advisor: Rojas Hernandez MD Bilirubin, U see note Normal [facility] Comment on above: Result Comment: Init ial positive results not confirmed. Interfering substances may include elevated urobilinogen. Performed By: #### 1 06500 #### [facility] [address] [place] [address] Home Advisor: Rojas Hernandez MD Blood, U Moderate Abnormal Negative [facility] Comment on above: Performed By: #### 1 78863 #### [facility] [address] [place] [address] 83492 Home Advisor: Rojas Hernandez MD Color, U Yellow Normal [facility] Comment on above: Performed By: #### 1 02755 #### [facility] [address] [place] [address] 03183 Home Advisor: Rojas Hernandez MD Glucose Qual, U Negative Normal Negative [facility] Comment on above: Performed By: #### 1 52091 #### [facility] [address] [place] [address] 02243 Home Advisor: Rojas Hernandez MD Granular Cast 1 #/HPF Normal [facility] Comment on above: Performed By: #### 1 34178 #### [facility] [address] [place] [address] 69893 Home Advisor: Rojas Hernandez MD Ketones, U Trace Normal Negative [facility] Comment on above: Performed By: #### 1 36827 #### [facility] [address] [place] [address] 12256 Home Advisor: Rojas Hernandez MD Leukocyte Esterase, U Negative Normal Negative [facility] Comment on above: Performed By: #### 1 49458 #### [facility] [address] [place] [address] 47936 Home Advisor: Rojas Hernandez MD Mucous, U Occasional Normal [facility] Comment on above: Performed By: #### 1 26481 #### [facility] [address] [place] [address] 67161 Home Advisor: Rojas Hernandez MD Nitrite, U Negative Normal Negative [facility] Comment on above: Performed By: #### 1 51894 #### [facility] [address] [place] [address] 58490 Home Advisor: Rojas Hernandez MD Non-Squamous Epithelial, U 1 #/HPF Normal [facility] Comment on above: Performed By: #### 1 01168 #### [facility] [address] [place] [address] 22091 Home Advisor: Rojas Hernandez MD pH, U 7.0 Normal 4.5-8.0 [facility] Comment on above: Performed By: #### 1 67465 #### [facility] [address] [place] [address] 20416 Home Advisor: Rojas Hernandez MD Protein, U 100 mg/dl Abnormal Negative [facility] Comment on above: Performed By: #### 1 21284 #### [facility] [address] [place] [address] 85803 Home Advisor: Rojas Hernandez MD RBC/HPF, U 2 #/HPF Normal 0-3 [facility] Comment on above: Performed By: #### 1 33905 #### [facility] [address] [place] [address] 45548 Home Advisor: Rojas Hernandez MD Specific Victor, U 1.020 Normal 1.001-1. 03 5 [facility] Comment on above: Performed By: #### 1 69679 #### [facility] [address] [place] [address] 22563 Home Advisor: Rojas Hernandez MD Squamous Epithelial Cells, U 1 #/HPF Normal [facility] Comment on above: Performed By: #### 1 39434 #### [facility] [address] [place] [address] 47632 Home Advisor: Rojas Hernandez MD U MICRO Indicated Normal [facility] Comment on above: Performed By: #### 1 91523 #### [facility] [address] [place], [place] [phone] Home Advisor: Rojas Hernandez MD Urobilinogen Qual, U 0.2 EU/dl Normal 0.1-1.0 mg/dl [facility] Comment on above: Result Comment: EU/d l and mg/dl are equivalent units. Performed By: #### 1 70664 #### [facility] [address] [place] [address] Home Advisor: Rojas Hernandez MD WBC/HPF, U 5 #/HPF Normal 0-5 [facility] Comment on above: Performed By: #### 1 36162 #### [facility] [address] [place] [address] 44130 Home Advisor: Rojas Hernandez MD Utilization Review Noteon Utilization Review Note PER ROUNDS HAS N OT CROSSED 1 [place], ANTICIPATE DC TOMORROW IF TOLERATING DIET AND STANLEY IMPROVES Normal [facility] ALLIED HEALTHon 11-13-2019 ALLIED HEALTH HNO ID: [id number] Author: Ibeth (RtJojo Luna Service: ? Author Type: Police Crime Scene Technician Type: Allied Health Filed: 11/13/2019 10:53 AM Note Text: Radiology Service Progress Note PATIENT NAME: Truong Rosario III DATE OF SERVICE: November 13, 2019 TIME: 10:52 AM PATIENT IDENTITY VERIFICATION COMPLETED USING TWO (2) IDENTIFIERS: Name and Date of confirmed by patient verbally. PATIENT GENDER DATA: Male PATIENT RELEVANT IMPLANT DATA REVIEWED: Not Applicable RADIOLOGY DEPARTMENT: General X-ray: Exam(s) Completed: Chest X-Ray PERIPHERAL IV DATA: Not applicable SIGNED BY: RT Amanda November 13, 2019 10:52 AM Normal [facility] Basic Metabolic Panlon 11-13 Anion gap [Moles/Vol] 13 mmol/L Normal 9-18 [facility] Comment on above: Performed By: #### C BCDIF, BMP, MG1 ####[facility] [address] [place], [place] [phone] Calcium [Mass/Vol] 8.7 mg/dL Normal 8.5-10.2 [facility] Comment on above: Performed By: #### C BCDIF, BMP, MG1 ####[facility] [address] [place] [phone] Chloride [Moles/Vol] 108 mmol/L High 97-105 [facility] Comment on above: Performed By: #### C BCDIF, BMP, MG1 ####[facility] [address] [place] [phone] CO2 [Moles/Vol] 21 mmol/L Low 22-30 [facility] Comment on above: Performed By: #### C BCDIF, BMP, MG1 ####[facility] Tr[address]fr5260 [address] Creatinine [Mass/Vol] 0.96 mg/dL Normal 0.73-1.22 [facility] Comment on above: Performed By: #### C BCDIF, BMP, MG1 ####[facility] [address] [place] [phone] eGFR- Amer. >60 Normal [facility] Comment on above: Performed By: #### C BCDIF, BMP, MG1 ####[facility] Yskf[address]ntlr4559 [address]5160 GFR/1.73 sq M predicted among non-blacks MDRD (S/P/Bld) [Vol rate/Area] mL/min/{1.73_m2} Normal [facility] Comment on above: Result Comment: eGFR (Estimated GFR) Units of measure: mL/min/1.73 meters squared eGFR is derived from the reexpressed MDRD Study equation using the following parameters: serum creatinine, age, gender and race. The creatinine assay has been calibrated to be traceable to IDMS. An eGFR <60 mL/min/1.73m2 for >3 months is consistent with chronic kidney disease. Refer to KDOQI guidelines for clinical interpretation. In patients with unstable renal function, e.g. those with acute kidney injury, the eGFR may not accurately reflect actual GFR. Performed By: #### C BCDIF, BMP, MG1 ####[facility] Q[address]tr5991 [address]721-5160 Glucose [Mass/Vol] 88 mg/dL Normal 74-99 [facility] Comment on above: Result Comment: The [place] Diabetes Association (ADA) provides guidance for cutoff values for fasting glucose and random glucose. The ADA defines fasting as no caloric intake for at least 8 hours. Fasting plasma glucose results between 100 to 125 mg/dL indicate increased risk for diabetes (prediabetes). Fasting plasma glucose results greater than or equal to 126 mg/dL meet the criteria for diagnosis of diabetes. In the absence of unequivocal hyperglycemia, results should be confirmed by repeat testing. In a patient with classic symptoms of hyperglycemia or hyperglycemic crisis, random plasma glucose results greater than or equal to 200 mg/dL meet the criteria for diagnosis of diabetes. Reference: Standards of Medical Care in Diabetes 2016, [place] [employer] Association. Diabetes Care. 2016.39(Suppl 1). Performed By: #### C CHRISTI [place], MG1 ####[facility] [address] [place] [address] Potassium [Moles/Vol] 3.4 mmol/L Low 3.7-5.1 [facility] Comment on above: Performed By: #### C CHRISTI [place], MG1 ####[facility] [address] [place] [address] Sodium [Moles/Vol] 142 mmol/L Normal 136-144 [facility] Comment on above: Performed By: #### C CHRISTI [place], MG1 ####[facility] [address] [place] [address] Urea nitrogen [Mass/Vol] 11 mg/dL Normal 9-24 [facility] Comment on above: Performed By: #### C CHRISTI [place], MG1 ####[facility] [address] [place] [address] CASE MANAGEMon 11-13-2019 CASE MANAGEM HNO ID: [id number] Author: Aliza (Rn) CARIN Jo Service: Case Management Author Type: Registered Nurse Type: Care Mgt Progress Note Filed: 11/13/2019 2:33 PM Note Text: CARE MANAGEMENT DISCHARGE NOTE SERVICE DATE: 11/13/2019 SERVICE TIME: 2:28 PM LOS: 0 days Admission Date: 11/12/2019 DISCHARGE ARRANGEMENT (list agency and phone number) Discharge Arrangement: Home CAREGIVER ASSESSMENT: Caregiver is ready, willing and able to meet the patient's needs as recommended by the inter-professional team:: No Caregiver needed Does the patient have an acute stroke diagnosis, or has the patient had a stroke during this admission?: No Patient's transition needs and plan for meeting these needs: Home with self care HANDOFF COMMUNICATION: Handoff to: Primary Care Physician Primary Care Physician Name/Phone: Prerna Madison DO Mariah; Summary of Care to Prerna Lemus DO TRANSPORTATION ARRANGEMENTS: Transportation Arrangements: No-Spouse to transport ADDITIONAL CONTACT RESOURCES: N/A Needs Prior to Discharge: None;Ready for Discharge Discharge order written for today to home. RN CM met with the patient at bedside to discuss discharge plans. He is agreeable to d/c today. No skilled needs identified. He would like to schedule his own PCP follow-up appointment. SIGNATURE: Aliza Jo RN PATIENT NAME: Truong Rosario III DATE: November 13, 2019 TIME: 2:28 PM PAGER/CONTACT #: [phone] [facility] CASE MANAGEM HNO ID: [id number] Author: Mayra Flood (Msw) Service: ? Author Type: Electroformer Type: Care Mgt Progress Note Filed: 11/13/2019 2:08 PM Note Text: CARE MANAGEMENT PROGRESS NOTE SERVICE DATE: 11/13/2019 SERVICE TIME: 1:52 PM LOS: 0 days Chronic THC use SW Consult received regarding pt's chronic THC use. Met with pt at bedside to discuss. 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 Pt states he is aware of the adverse affect it is having on his health. He is interested in stopping. Open to resources to stop. Encouraged pt to contact his insurance provider for OP options that may be in network for him. Also provided [facility] with [facility], [facility], and [facility]. Pt appreciative of resources and information. Denies any other needs at this time. Assigned CM will continue to follow for possible dc needs. SIGNATURE: MICHELLE Grier, BOILER OPERATOR PATIENT NAME: Truong Rosario III DATE: November 13, 2019 TIME: 1:52 PM PAGER/CONTACT #: [phone] [facility] CASE MGT INIT ASSESon 2019 CASE MGT INIT [facility] HNO ID: [id number] Author: Aliza (Rn) CARIN Jo Service: Case Management Author Type: Registered Nurse Type: Care Mgt Initial Assessment Filed: 11/13/2019 11:27 AM Note Text: CARE MANAGEMENT: ASSESSMENT AND DISCHARGE PLAN SERVICE DATE: November 13, 2019 SERVICE TIME: 11:23 AM PRIMARY CARE PHYSICIAN: Prerna Lemus, DO/Confirmed ADMISSION STATUS: Observation Needs Prior to Discharge: Other: See Comment(Medical Clearance) MEDICAL: BLUE 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 Last discharge within 30 days: No Advance Directive: Current Advance Directive: Health Care Power of Grease Rack Worker In Chart: No Biomedical Engineering Technician Attempted to Assist with AD Completion: Yes Action: Education Provided Health LiteracyHow often do you need to have someone help you when you read instructions, pamphlets, or other written material from your doctor or pharmacy? : 1 - Never How confident are you filling out medical forms by yourself?: 1 - Extremely If Patient scores > 3 on either question, the following interventions were put into place:: Patient did not score > 3 on either question. Baseline Mental Status Prior to this Illness what was the patient's Baseline Mental Status?: Alert AND Oriented Prior to this illness, has anyone described the patient having any of the following behaviors?: Not Applicable Relationship of the informant to the patient:: Self Functional Status: Independent Does Patient Currently Receive Any Community Services or Home Care?: None Equipment Prior to Admission: Other: See Comment(Walking stick) SOCIAL: Living Arrangements: Home Financial Resources: DisabledPrimary Contact: Extended Emergency Contact Information Primary Emergency Contact: Joan Rosario Address: [address] [place] [address] [place] [phone] Relation: Spouse Supportive Patient Contact:: Yes Social Needs Food insecurity Worry: Never true Inability: Never true Resources Needed: No Social Needs Financial resource strain: Not very hard Social Needs Transportation needs Medical: No Non-medical: No Caregiver AssessmentCaregiver is ready, willing and able to meet the patient's needs as recommended by the inter-professional team:: No Caregiver needed Does the patient have an acute stroke diagnosis, or has the patient had a stroke during this admission?: No Patient's transition needs and plan for meeting these needs: Anticipate home with self care Patient's perception of need for this admission: Nausea Medication Adherance I am convinced of the importance of my prescription medication: 0 - Agree Completely I worry that my prescription medication will do more harm than good to me : 0 - Disagree Completely I feel financially burdened by my dyw-th-lnedks expenses for my prescription medication:: 0 - Disagree Completely Risk Score: 0 Patient is categorized as: Low risk < 2 Are you interested in bedside delivery of your medications? No, preferred community Pharmacy is [facility]. Is Patient Psychosocially Complex?: Yes, refer to Social Work ASSESSMENT AND PLAN: Medical Needs: Medical Needs: Two or more chronic diseases Psychosocial Needs: Psychosocial Needs: Chemical Dependency Drug of Choice: Marijuana Treatment: None FREEDOM OF CHOICE EXPLAINED: [place] of Choice Given: No Reason Not Given: No placements necessary POTENTIAL TRANSITION PLANS Home EMR reviewed and CM assessment complete. 59 year old patient assigned to Observation bed for Cannabinoid hyperemesis syndrome. 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 No skilled needs anticipated at discharge. BOILER OPERATOR to follow-up with patient regarding chonic Marijuana use. CM assigned will continue to follow. SIGNATURE: Aliza Jo RN PATIENT NAME: Truong Rosario III DATE: November 13, 2019 TIME: 11:23 AM PAGER/CONTACT #: [phone] Normal [facility] CBC and Differentialon 11-13 Abs Baso <0.03 Normal <0.11 [facility] Comment on above: Performed By: #### C BCDIF, BMP, MG1 ####[facility] [address] [place] [phone] Abs [place] 0.65 k/uL Normal <0.87 [facility] Comment on above: Performed By: #### C BCDIF, BMP, MG1 ####[facility] Okbanwetjl8916 [phone] Abs Neut 5.39 k/uL Normal 1.45-7.50 [facility] Comment on above: Performed By: #### C BCDIF, BMP, MG1 ####[facility] [address] [place] [phone] Basophils/100 WBC (Bld) 0.3 % Normal [facility] Comment on above: Performed By: #### C BCDIF, BMP, MG1 ####[facility] Ourzleolpt6821 [address]721-5160 Eosinophils (Bld) [#/Vol] 0.06 10*3/uL Normal <0.46 [facility] Comment on above: Performed By: #### C BCDIF BMP, MG1 ####[facility] [address] [place], [place] [phone] Eosinophils/100 WBC (Bld) 0.8 % Normal [facility] Comment on above: Performed By: #### C BCDIF BMP, MG1 ####[facility] [address] [place], [place] [address] Erythrocyte distribution width (RBC) [Ratio] 18.3 % High 11.5-15.0 [facility] Comment on above: Performed By: #### C BCDIF BMP, MG1 ####[facility] [address] [place], [place] [address] Hematocrit (Bld) [Volume fraction] 34.4 % Low 39.0-51.0 [facility] Comment on above: Performed By: #### C BCDIF, BMP, MG1 ####[facility] [address] [place], [place] [address] Hemoglobin (Bld) [Mass/Vol] 10.7 g/dL Low 13.0-17.0 [facility] Comment on above: Performed By: #### C BCDIF, BMP, MG1 ####[facility] [address] [place], [place] [phone] Lymphocytes (Bld) [#/Vol] 1.85 10*3/uL Normal 1.00-4.00 [facility] Comment on above: Performed By: #### C BCDIF, BMP, MG1 ####[facility] [address] [place], [place] [phone] Lymphocytes/100 WBC (Bld) 23.2 % Normal [facility] Comment on above: Performed By: #### C BCDIF, BMP, MG1 ####[facility] [address] [place] [phone] MCH (RBC) [Entitic mass] 26.8 pG Normal 26.0-34.0 [facility] Comment on above: Performed By: #### C BCCHRISTI CHEW, MG1 ####[facility] [address] [place] [phone] MCHC (RBC) [Mass/Vol] 31.1 g/dL Normal 30.5-36.0 [facility] Comment on above: Performed By: #### C BCCHRISTI CHEW, MG1 ####[facility] I[address]axwy2812 [address]5160 MCV (RBC) [Entitic vol] 86.0 fL Normal 80.0-100.0 [facility] Comment on above: Performed By: #### Lam BCCHRISTI CHEW, MG1 ####[facility] Tszfomxhfa9203 [address]721-5160 Monocytes/100 WBC (Bld) 8.2 % Normal [facility] Comment on above: Performed By: #### C BCCHRISTI CHEW, MG1 ####[facility] [address] [place] [phone] Neutrophils/100 WBC (Bld) 67.5 % Normal [facility] Comment on above: Performed By: #### Lam BCCHRISTI CHEW, MG1 ####[facility] Nfffmuijoe3001 [address]721-5160 Platelet mean volume (Bld) [Entitic vol] 10.5 fL Normal 9.0-12.7 [facility] Comment on above: Performed By: #### C BCCHRISTI CHEW, MG1 ####[facility] Hk[address]xtvzw1986 [address]721-5160 Platelets (Bld) [#/Vol] 263 10*3/uL Normal 150-400 [facility] Comment on above: Performed By: #### Lam BCCHRISTI CHEW, MG1 ####[facility] [address] [place] [phone] RBC (Bld) [#/Vol] 4.00 10*6/uL Low 4.20-6.00 [facility] Comment on above: Performed By: #### Lam BCJEEVAN BMP, MG1 ####[facility] [address] [place] [phone] WBC (Bld) [#/Vol] 7.97 10*3/uL Normal 3.70-11.00 [facility] Comment on above: Performed By: #### C BCDIF, BMP, MG1 ####[facility] [address]trp6847 [address] [place] [phone] CK, Total and CKMBon 020 CK [Catalytic activity/Vol] 241 U/L Normal 51-298 [facility] Comment on above: Performed By: #### C KCKMB #### [facility] Laboratory [address] [facility] [phone] CK MB % 1.1 % Normal 0.0-4.0 [facility] Comment on above: Performed By: #### C KCKMB #### [facility] Laboratory [address] [facility] [phone] MB 2.7 ng/mL Normal <7.8 [facility] Comment on above: Performed By: #### C KCKMB #### [facility] Laboratory [address] [facility] [phone] CNCOon 11-13-2019 CNCO Letter Text Normal [facility] ECG COMPLETEon 11-13-2019 ECG COMPLETE NAME : TRUONG ROSARIO PID : [id number] Gender : Male Race : ORD : [id number] Procedure Date : Nov 13 2019 00:54:23 Edit Date : Nov 14 2019 15:19:53 Diagnosis:NORMAL SINUS RHYTHM WHEN COMPARED WITH ECG OF 19-FEB-2017 16:38, VENT. RATE HAS DECREASED BY 58 BPM NON-SPECIFIC CHANGE IN ST SEGMENT IN INFERIOR LEADS Confirmed by MD PADILLA QARAB ([id number]) on 11/14/2019 3:19:51 PM Ventricular Rate : 60 BPM Atrial Rate : 60 BPM P-R Interval : 150 ms QRS Duration : 102 ms Q-T Interval : 468 ms QTC Calculation(Bazett) : 468 ms P Advance : 35 degrees R Advance : 4 degrees T Advance : 14 degrees Test Reason : Chest Pain Location : 4 : 2S 204-1 Overread By : MD PADILLA QARAB Edited By : MD PADILLA QARAB Referred By : NYDIA TURK Acquired by : BS, Normal [facility] Lipaseon 11-13-2019 Lipase [Catalytic activity/Vol] 36 U/L Normal 16-61 [facility] Comment on above: Performed By: #### L IPA ####[facility] [address] [place] [phone] Magnesiumon 11-13-2019 Magnesium [Mass/Vol] 1.6 mg/dL Low 1.7-2.3 [facility] Comment on above: Performed By: #### C BCDIF, BMP, MG1 ####[facility] [address] [place] [phone] NURSING PROGon 11-13-2019 NURSING PROG HNO ID: [id number] Author: Charlie (Rn) CARIN Gutierrez Service: ? Author Type: Registered Nurse Type: Nursing Progress Note Filed: 11/13/2019 3:14 PM Note Text: Nursing Progress Note Patient Name: Truong Rosario III Patient Location: [place] [id number] 0700-pt resting comfortably in bed without s/s distress. Potassium phos running without complications. SR-SB on tele. Patent iv access and falls precautions maintained. Pt has no s/s nausea, CP, SOB, lightheadedness, dizziness. VSS. 0738-morning assessment completed. Am med pas completed. Pt denies nausea, CP, SOB, lightheadedness, dizziness, chills, BERRIOS. 0936-pt c/o ear ache, pt given tylenol per NOV order. Pt denies nausea, CP, SOB, lightheadedness, dizziness, chills, BERRIOS. IV KPhos and Mg running without s/s complications. IVF DC'd per order. Monitoring pt. 1023-rounded with Dr. Benitez at pt bedside, pt possibly discharged today pending cxr and trending troponin results. Spoke with cxr, stated will come up to see pt after STAT and ED xrays. Spoke with phlebotomy, confirmed pt is on list to draw. Pt resting quietly in bed. 1146-pt IV magnesium and potassium phos finished. Pt encouraged to walk and eat meals, pt verbalized compliance. Pt denies nausea, CP, SOB, lightheadedness, dizziness, chills, BERRIOS. IV KPhos and Mg running without s/s complications. CXR obtained and processing. 1340-pt relaxing in bed, eating lunch, cardiac labs obtained. Pt denies nausea, CP, SOB, lightheadedness, dizziness, chills, BERRIOS. Mg and Kphos completed. No further needs at this time, patent iv access maintained. 1446-cardiac labs resulted, Dr. Benitez paged and updated. discharge orders in, Pt denies nausea, CP, SOB, lightheadedness, dizziness, chills, BERRIOS. Per CM and primary team ok to discharge pt home at this time, awaiting transport from pt spouse. 1500-pt given back home medications. pt discharged accordingly. This note was completed by: Charlie Gutierrez RN [facility] NURSING PROG HNO ID: [id number] Author: Leila Munoz) CARIN Lewis Service: ? Author Type: Registered Nurse Type: Nursing Progress Note Filed: 11/13/2019 7:02 AM Note Text: Nursing Progress Note Patient Name: Truong Rosario III Patient [id number] Daily Note: 2100 pt awake,symmetrical chest rise, no pain, sinus rhythm on tele 2300 pt awake,symmetrical chest rise, no pain, sinus rhythm on tele 1254 pt was having chest tightness that didn't radiate, pt denies SOB, EKG performed hospitalist notified 0300 pt awake,symmetrical chest rise,sinus rhythm on tele, no chest tightness 0500 pt awake,symmetrical chest rise sinus rhythm on tele This note was completed by: Leila Lewis RN [facility] PLAN OF CAREon 11-13-2019 PLAN OF CARE HNO ID: [id number] Author: Shalonda Ross Service: Hospital Medicine Author Type: Physician Type: Plan of Care Filed: 11/13/2019 7:59 AM Note Text: Ordered EKG ,trops and CXR due to patient's complaint of chest pain. History of coronary artery disease with stent Shalonda Ross MD [facility] Troponin Ton 11-13-2019 Troponin T.cardiac [Mass/Vol] ug/L Normal 0.000-0.[address] [place] [address] Comment on above: Performed By: #### T NT ####[facility] [address] Troponin T.cardiac [Mass/Vol] ug/L Normal 0.000-0.[address] [place] [address] Comment on above: Performed By: #### T NT ####[facility] [address]378 [address]160 XR CHEST 1V FRONTAL PORTon 0 11-13-2019 XR CHEST 1V FRONTAL PORT * * *Final Repo rt* * * DATE OF EXAM: Nov 13 2019 10:49AM MDX [id number] - XR CHEST 1V FRONTAL PORT / PROCEDURE REASON: Chest pain * * * * Physician Interpretation * * * * Portable chest x-ray: HISTORY: Chest pain FINDINGS: The cardiac-pericardial silhouette is within normal limits. No evidence of infiltrate, vascular redistribution, or pleural effusion. IMPRESSION: No acute finding Fisher Spear: [facility] Transcribe Date/Time: Nov 13 2019 11:45A Dictated by : NEEL VAZQUEZ MD This examination was interpreted and the report reviewed and electronically signed by: NEEL VAZQUEZ MD on Nov 13 2019 11:48AM EST [id number] [facility] Basic Metabolic Panlon 11-12 Anion gap [Moles/Vol] 8 mmol/L Low 06-11 [facility] Comment on above: Performed By: #### B MP ####[facility] [address] [place] [phone] Calcium [Mass/Vol] 8.8 mg/dL Normal 8.5-10.2 [facility] Comment on above: Performed By: #### B MP ####[facility] [address] [place] [address] Chloride [Moles/Vol] 113 mmol/L High 97-105 [facility] Comment on above: Performed By: #### B MP ####[facility] [address] [place] [address] CO2 [Moles/Vol] 22 mmol/L Normal 22-30 [facility] Comment on above: Performed By: #### B MP ####[facility] [address] [place] [address] Creatinine [Mass/Vol] 0.96 mg/dL Normal 0.73-1.22 [facility] Comment on above: Performed By: #### B MP ####[facility] [address] [place] [address] eGFR- Amer. >60 Normal [facility] Comment on above: Performed By: #### B MP ####[facility] [address] [place] [id number] GFR/1.73 sq M predicted among non-blacks MDRD (S/P/Bld) [Vol rate/Area] mL/min/{1.73_m2} Normal [facility] Comment on above: Result Comment: eGFR (Estimated GFR) Units of measure: mL/min/1.73 meters squared eGFR is derived from the reexpressed MDRD Study equation using the following parameters: serum creatinine, age, gender and race. The creatinine assay has been calibrated to be traceable to IDMS. An eGFR <60 mL/min/1.73m2 for >3 months is consistent with chronic kidney disease. Refer to KDOQI guidelines for clinical interpretation. In patients with unstable renal function, e.g. those with acute kidney injury, the eGFR may not accurately reflect actual GFR. Performed By: #### B MP ####[facility] [address] [place] [phone] Glucose [Mass/Vol] 102 mg/dL High 74-99 [facility] Comment on above: Result Comment: The [place] [employer] (ADA) provides guidance for cutoff values for fasting glucose and random glucose. The ADA defines fasting as no caloric intake for at least 8 hours. Fasting plasma glucose results between 100 to 125 mg/dL indicate increased risk for diabetes (prediabetes). Fasting plasma glucose results greater than or equal to 126 mg/dL meet the criteria for diagnosis of diabetes. In the absence of unequivocal hyperglycemia, results should be confirmed by repeat testing. In a patient with classic symptoms of hyperglycemia or hyperglycemic crisis, random plasma glucose results greater than or equal to 200 mg/dL meet the criteria for diagnosis of diabetes. Reference: Standards of Medical Care in Diabetes 2016, [place] [employer]. Diabetes Care. 2016.39(Suppl 1). Performed By: #### B MP ####[facility] [address] [place] [address] Potassium [Moles/Vol] 3.7 mmol/L Normal 3.7-5.1 [facility] Comment on above: Performed By: #### B MP ####[facility] [address] [place] [address] Sodium [Moles/Vol] 143 mmol/L Normal 136-144 [facility] Comment on above: Performed By: #### B MP ####[facility] [address] [place] [address] Urea nitrogen [Mass/Vol] 16 mg/dL Normal 9-24 [facility] Comment on above: Performed By: #### B MP ####[facility] [address] [place] [address] Anion gap [Moles/Vol] 15 mmol/L Normal 9-18 [facility] Comment on above: Performed By: #### L IPA, MG1, BMP, CBCDIF, HFP ####[facility] [address] [place] [address] Calcium [Mass/Vol] 9.0 mg/dL Normal 8.5-10.2 [facility] Comment on above: Performed By: #### L IPA, MG1, BMP, CBCDIF, HFP ####[facility] [address] [place] [address] Chloride [Moles/Vol] 112 mmol/L High 97-105 [facility] Comment on above: Performed By: #### L IPA, MG1, BMP, CBCDIF, HFP ####[facility] [address] [place] [address] CO2 [Moles/Vol] 20 mmol/L Low 22-30 [facility] Comment on above: Performed By: #### L IPA, MG1, BMP, CBCDIF, HFP ####[facility] [address] [place] [address] Creatinine [Mass/Vol] 0.97 mg/dL Normal 0.73-1.22 [facility] Comment on above: Performed By: #### L IPA, MG1, BMP, CBCDIF, HFP ####[facility] [address] [place] [address] eGFR- Amer. >60 Normal [facility] Comment on above: Performed By: #### L IPA, MG1, BMP, CBCDIF, HFP ####[facility] [address] [place] [address] GFR/1.73 sq M predicted among non-blacks MDRD (S/P/Bld) [Vol rate/Area] mL/min/{1.73_m2} Normal [facility] Comment on above: Result Comment: eGFR (Estimated GFR) Units of measure: mL/min/1.73 meters squared eGFR is derived from the reexpressed MDRD Study equation using the following parameters: serum creatinine, age, gender and race. The creatinine assay has been calibrated to be traceable to IDMS. An eGFR <60 mL/min/1.73m2 for >3 months is consistent with chronic kidney disease. Refer to KDOQI guidelines for clinical interpretation. In patients with unstable renal function, e.g. those with acute kidney injury, the eGFR may not accurately reflect actual GFR. Performed By: #### L IPA, MG1, BMP, CBCDIF, HFP ####[facility] [address] [place] [address] Glucose [Mass/Vol] 101 mg/dL High 74-99 [facility] Comment on above: Result Comment: The [place] Diabetes [employer] (ADA) provides guidance for cutoff values for fasting glucose and random glucose. The ADA defines fasting as no caloric intake for at least 8 hours. Fasting plasma glucose results between 100 to 125 mg/dL indicate increased risk for diabetes (prediabetes). Fasting plasma glucose results greater than or equal to 126 mg/dL meet the criteria for diagnosis of diabetes. In the absence of unequivocal hyperglycemia, results should be confirmed by repeat testing. In a patient with classic symptoms of hyperglycemia or hyperglycemic crisis, random plasma glucose results greater than or equal to 200 mg/dL meet the criteria for diagnosis of diabetes. Reference: Standards of Medical Care in Diabetes 2016, [place] [employer]. Diabetes Care. 2016.39(Suppl 1). Performed By: #### L IPA, MG1, BMP, CBCDIF, HFP ####[facility] [address] [place] [phone] Potassium [Moles/Vol] 3.6 mmol/L Low 3.7-5.1 [facility] Comment on above: Performed By: #### L IPA, MG1, BMP, CBCDIF, HFP ####[facility] [address] [place] [phone] Sodium [Moles/Vol] 147 mmol/L High 136-144 [facility] Comment on above: Performed By: #### L IPA, MG1, BMP, CBCDIF, HFP ####[facility] [address] [place], [place] [address] Urea nitrogen [Mass/Vol] 18 mg/dL Normal 9-24 [facility] Comment on above: Performed By: #### L IPA, MG1, BMP, CBCDIF, HFP ####[facility] [address] [place] [phone] Blood Cultureon 11-12-2019 Bacteria identified Cx Nom (Bld) Culture Result - No growth 5 days Normal [facility] Comment on above: Performed By: #### B LCUL ####[facility] [address] AveCMath[place], [place] [phone] Bacteria identified Cx Nom (Bld) Culture Result - No growth 5 days Normal [facility] Comment on above: Performed By: #### B LCUL ####[facility] [address] eCMath[place], [place] [phone] CBC and Differentialon 11-12 Abs Baso <0.03 Normal <0.11 [facility] Comment on above: Performed By: #### L IPA, MG1, BMP, CBCDIF, HFP #### [facility] Laboratory [address] [place] [phone] Abs [place] 1.17 k/uL High <0.87 [facility] Comment on above: Performed By: #### L IPA, MG1, BMP, CBCDIF, HFP #### [facility] Laboratory [address] Abs Neut 11.14 k/uL High 1.45-7.50 [facility] Comment on above: Performed By: #### L IPA, MG1, BMP, CBCDIF, HFP #### [facility] Laboratory [address] [place], [place] [phone] Basophils/100 WBC (Bld) 0.1 % Normal [facility] Comment on above: Performed By: #### L IPA, MG1, BMP, CBCDIF, HFP #### [facility] Laboratory [address] [place], [place] [phone] Eosinophils (Bld) [#/Vol] 10*3/uL Normal <0.46 [facility] Comment on above: Performed By: #### L IPA, MG1, BMP, CBCDIF, HFP #### [facility] Laboratory [address] [place] [address] Eosinophils/100 WBC (Bld) 0.0 % Normal [facility] Comment on above: Performed By: #### L IPA, MG1, BMP, CBCDIF, HFP #### [facility] Laboratory [address] [place] [address] Erythrocyte distribution width (RBC) [Ratio] 18.1 % High 11.5-15.0 [facility] Comment on above: Performed By: #### L IPA, MG1, BMP, CBCDIF, HFP #### [facility] Laboratory [address] [place] [address] Hematocrit (Bld) [Volume fraction] 34.3 % Low 39.0-51.0 [facility] Comment on above: Performed By: #### L IPA, MG1, BMP, CBCDIF, HFP #### [facility] Laboratory [address] [place], [place] [phone] Hemoglobin (Bld) [Mass/Vol] 10.8 g/dL Low 13.0-17.0 [facility] Comment on above: Performed By: #### L IPA, MG1, BMP, CBCDIF, HFP #### [facility] Laboratory [address] [place] [address] Lymphocytes (Bld) [#/Vol] 1.42 10*3/uL Normal 1.00-4.00 [facility] Comment on above: Performed By: #### L IPA, MG1, BMP, CBCDIF, HFP #### [facility] Laboratory [address] [facility] [phone] Lymphocytes/100 WBC (Bld) 10.3 % Normal [facility] Comment on above: Performed By: #### L IPA, MG1, BMP, CBCDIF, HFP #### [facility] Laboratory [address] [facility] [phone] MCH (RBC) [Entitic mass] 26.7 pG Normal 26.0-34.0 [facility] Comment on above: Performed By: #### L IPA, MG1, BMP, CBCDIF, HFP #### [facility] Laboratory [address] [place] [address] MCHC (RBC) [Mass/Vol] 31.5 g/dL Normal 30.5-36.0 [facility] Comment on above: Performed By: #### L IPA, MG1, BMP, CBCDIF, HFP #### [facility] Laboratory [address] [place], [place] [address] MCV (RBC) [Entitic vol] 84.9 fL Normal 80.0-100.0 [facility] Comment on above: Performed By: #### L IPA, MG1, BMP, CBCDIF, HFP #### [facility] Laboratory [address] [place] [address] Monocytes/100 WBC (Bld) 8.5 % Normal [facility] Comment on above: Performed By: #### L IPA, MG1, BMP, CBCDIF, HFP #### [facility] Laboratory [address] [place] [address] Neutrophils/100 WBC (Bld) 81.1 % Normal [facility] Comment on above: Performed By: #### L IPA, MG1, BMP, CBCDIF, HFP #### [facility] Laboratory [address] [place] [phone] Platelet mean volume (Bld) [Entitic vol] 11.3 fL Normal 9.0-12.7 [facility] Comment on above: Performed By: #### L IPA, MG1, BMP, CBCDIF, HFP #### [facility] Laboratory [address] [facility] [phone] Platelets (Bld) [#/Vol] 296 10*3/uL Normal 150-400 [facility] Comment on above: Performed By: #### L IPA, MG1, BMP, CBCDIF, HFP #### [facility] Laboratory [address] [facility] [phone] RBC (Bld) [#/Vol] 4.04 10*6/uL Low 4.20-6.00 [facility] Comment on above: Performed By: #### L IPA, MG1, BMP, CBCDIF, HFP #### [facility] Laboratory [address] [facility] [phone] WBC (Bld) [#/Vol] 13.74 10*3/uL High 3.70-11.00 [facility] Comment on above: Performed By: #### L IPA, MG1, BMP, CBCDIF, HFP #### [facility] Laboratory [address] [facility] [phone] HISTORY PHYSICALon 0 HISTORY PHYSICAL HNO ID: [id number] Author: Leti Seth (Pa) Service: Hospital Medicine Author Type: Physician Business Analytics Intern Type: HANDP Filed: 11/12/2019 4:52 AM Note Text: -------- Attestation signed by Mateusz Wagner at 11/12/2019 6:51 AM I evaluated the patient and personally participated in the interiano components. I discussed the care with [facility]. I agree with the findings and plan as documented in the note above. I reviewed all the medications, vital signs, labs and imaging. Intractable vomiting likely due to cannabis Symptomatic management. Monitor for worsening of clinical state. Watch WBC Mateusz Wagner MD Hospital Medicine Staff DATE of Service: 11/12/2019 TIME of Service: 6:50 AM -------- SERVICE DATE: 11/12/2019 SERVICE TIME: 3:49 AM HOSPITAL MEDICINE HISTORY AND PHYSICAL PCP: Prerna Lemus DO NIGHT AND WEEKEND COVERAGE: Nights: Please contact pager [phone]. SUBJECTIVE Chief Complaint: Nausea and vomiting HPI: This is a 59 year old male with a PMH significant for cannabis hyperemesis syndrome, C diff colitis, CAD s/p PCI x 6, HLD, HTN, and GERD who presented to ED for evaluation of nausea and vomiting. Patient reports recurrent ED visits and hospitalizations for similar of which he has been told is likely related to cannabis use. He does admit to cannabis use on the evening of 11/10. On the morning of 11/11 he began developing generalized abdominal cramping as well as severe nausea and numerous episodes of non bloody non bilious vomiting. He reports at least 20 episodes of vomiting throughout the day yesterday and has been unable to tolerate any PO intake. He had a similar episode approximately one week ago for which he was evaluated in the ED at OSH. CT of the A/P was obtained at that time which was reportedly unremarkable. He reports at least 2-3 hospitalizations per year for similar and has been trying to cut back on marijuana use but has been unable to completely break the habit. He typically uses zofran and reglan at home to manage these symptoms but has been unable to tolerate any of his oral medications. He denies ETOH or NSAID use. He denies any CP, SOB, dizziness, light headedness, diarrhea, constipation, melena, hematochezia, hematemesis, LE swelling, BERRIOS, URI symptoms, urinary symptoms, fevers or chills. In the ED patient remained hemodynamically stable. Lab work was notable for lactic acidosis at 4.5 of which he was given IVF bolus with repeat lactate improved to 2.1. Labs also revealed leukocytosis (22.6), hypomagnesemia (1.0) and elevated creatinine (1.2). Given recurrent CT scans, most recent being 1 week ago, repeat imaging was not pursued. Tox screen was positive for marijuana only. He was given protonix, haldol and toradol in the ED with improvement in his symptoms. Abdominal pain currently resolved, now only complaining of indigestion. PAST MEDICAL HISTORY Diagnosis Date - Coronary artery disease - Cyclic vomiting syndrome - Fracture - History of nephrolithiasis - Hyperlipidemia - Hypertension - Marijuana use - Staph infection 2014 infection after the cholecystectomy PAST SURGICAL HISTORY Procedure Laterality Date - CC PCI CORONARY INTERVENT Stent x 6 - CHOLECYSTECTOMY 2015 [facility] - HIATAL HERNIA REPAIR HX 09/2015 Dr. Celis[facility] - PAST SURGICAL HISTORY OF Left left wrist katelyn due to work injury FAMILY HISTORY Problem Relation Age of Onset - Coronary Artery Disease Mother - Coronary Artery Disease Father - Cancer Brother bone cancer - Cancer Brother renal cancer Social History Tobacco Use - Smoking status: Former Smoker Packs/day: 2.00 Years: 17.00 Pack years: 34.00 Types: Cigars Last attempt to quit: 07/16/2001 Years since quittin.3 - Smokeless tobacco: Never Used Substance Use Topics - Alcohol use: No - Drug use: Yes Types: Marijuana Medications: Reviewed Allergies: ALLERGIES Allergen Reactions - Macrobid [Nitrofura* Unknown - Morphine Unknown - Penicillins Vomiting Review of Systems: GENERAL: No weight loss, malaise or fevers HEENT: Negative for frequent or significant headaches, No changes in hearing or vision, no nose bleeds or other nasal problems NECK: Negative for lumps, goiter, pain and significant neck swelling RESPIRATORY: Negative for cough, hemoptysis, wheezing, COPD, dyspnea or shortness of breath CARDIOVASCULAR: Negative for chest pain, leg swelling, hypertension, CHF or palpitations GI: +Abdominal pain +Nausea +vomiting. No diarrhea or constipation : No history of dysuria, frequency or incontinence MUSCULOSKELETAL: Negative for joint pain or swelling, back pain or muscle pain SKIN: Negative for lesions, rash, and itching PSYCH: +Hx of depression. Negative for sleep disturbance or recent psychosocial stressors HEMATOLOGY/LYMPHOLOGY: Negative for prolonged bleeding, bruising easily or swollen nodes ENDOCRINE: Negative for cold or heat intolerance, polyuria, polydipsia and goiter NEURO: No history of headaches, syncope, paralysis, or tremors OBJECTIVE: PHYSICAL EXAM BP 136/83 Pulse 100 Temp (Src) 98.4 (Oral) Resp 20 Ht 5' 9 (1.75m) Wt 217 lb 4.8 oz (98.6kg) SpO2 95% BMI 32.08 kg/(m2). O2 Therapy: Room Air Physical Exam Performed: GENERAL: Alert, no distress, cooperative SKIN: Skin color, texture, turgor normal. No rashes or lesions. HEAD/SINUSES: No significant findings. AT/NC EYES: PERRLA, EOMI OROPHARYNX: +Dry MM. Lips, mucosa, and tongue normal. Oropharynx normal. NECK: No jugulovenous distention, No carotid bruits, no thyromegaly, Supple LUNGS: +Diminished breath sounds at the lung bases otherwise clear to auscultation, Good diaphragmatic excursion. CARDIAC: RRR. Normal S1 and S2; no rubs, murmurs, or gallops. ABDOMEN: Abdomen soft, non-tender to palpation, non-distended, BS normal, No masses or organomegaly EXTREMITIES: Extremities normal, no deformities, edema, clubbing or skin discoloration. NEURO:AANDO x 3. Cognition and motor function grossly intact. PULSES: 2+ radial, 2+ dorsalis pedis Lines, Drains, and Airways Line Peripheral 11/11/192099 Admission to Hospital Short Right Arm 16 Gauge less than 1 day Reviewed lines and needs to be continued: REASONS: Intravenous fluids Diagnostic tests reviewed: Most recent labs and imaging results Assessment AND Plan Active Hospital Problems as of 11/12/2019 Noted - Resolved Hospital Intractable nausea and vomiting 11/12/2019 - Present Current Assessment AND Plan Patient with hx of cannabis hyperemesis syndrome presenting with 24 hours of continuous nausea and vomiting in setting of recent marijuana use Reports history of recurrent ED visits and hospitalizations for similar, most recent ED visit one week ago with reported negative CT A/P (unable to view results in Epic) Abdominal pain now resolved after haldol and toradol in the ED although still with some dyspepsia and nausea Abdominal examination is rather benign without significant TTP, rebound or guarding at this time Likely secondary to cannabis use, urine tox screen + marijuana Given recurrent CT of the A/P, most recently being one week ago will hold off on further imaging for now Consider CT if any change in clinical condition, although overall appears to be improved Check hepatic panel and lipase Pain control and anti-emetics prn Lactated ringers Clear liquid diet for now, advance as tolerated PPI Follow daily CBC, BMP, Mag Lactic acidosis 11/12/2019 - Present Current Assessment AND Plan Lactate initially 4.5 with improvement to 2.1 after IVF hydration in the ED Suspect in setting of significant dehydration from cannabis hyperemesis syndrome, less concern for infectious etiology Given concomitant leukocytosis will get check blood cultures Monitor off antibiotics for now Follow daily CBC, BMP Leucocytosis 09/12/2013 - Present Current Assessment AND Plan Suspect likely reactive vs secondary to dehydration Has had leukocytosis with similar presentation in past Less suspicious for infectious etiology Repeat CBC in am after IV hydration Hypomagnesemia 11/12/2019 - Present Current Assessment AND Plan Mag 1.0 on admission, IV mag sulfate given in the ED Repeat Mag now Replete as needed SIRS (systemic inflammatory response syndrome) (HCC) 11/12/2019 - Present Current Assessment AND Plan Patient noted to have leukocytosis, lactic acidosis and tachycardia on admission Patient appears non toxic on examination, no urinary or URI symptoms Suspect likely in setting of severe dehydration and less suspicious for sepsis or infectious etiology Check blood cultures Remainder of plan as above Monitor off antibiotics for now, especially given history of C diff colitis Acute kidney injury (HCC) 11/12/2019 - Present Current Assessment AND Plan Likely pre-renal in setting of volume depletion Creatinine initially 1.5-->1.2 after IV hydration in ED Unclear recent baseline although appears to be around 0.7-0.9 based on labwork from 2017 Continue lactated ringers Follow daily renal function Avoid nephrotoxins ACEI and diuretic held until creatine further improved HTN (hypertension) 09/12/2013 - Present Current Assessment AND Plan Stable Resume norvasc Holding ACEI and HCTZ in setting of STAN[place] Can resume when renal function back to baseline Coronary artery disease 11/12/2019 - Present Current Assessment AND Plan History of CAD with multiple stents (6 total); most recent per patient placed in 03/2018 Patient reports he follows with cardiology through [facility] No chest pain or SOB currently Continue ASA and statin Marijuana abuse 11/12/2019 - Present Current Assessment AND Plan Discussed with patient that use is likely precipitant of recurrent abdominal symptoms Counseled on cessation Medication and Non-Pharmacologic VTE Prophylaxis/Anticoagulan ts Anticoagulant AND Antiplatelet Medications (From admission, onward) Start Dose Route Frequency Ordered Stop 11/13/19 0900 aspirin, enteric coated 81 mg tab(s) 81 mg ORAL DAILY 11/12/19 0408 -- 11/12/19 0245 vte non-pharmacologic prophylaxis - none indicated (fl,oh) VTE Prophylaxis: VTE prophylaxis appropriate SIGNATURE: Leti Seth PA-C PATIENT NAME: Truong Rosario III DATE: November 12, 2019 TIME: 4:49 AM PAGER/CONTACT #: [phone] Normal [facility] Hepatic Functn Panelon 11-12 Albumin [Mass/Vol] 3.9 g/dL Normal 3.9-4.9 [facility] Comment on above: Performed By: #### L IPA, MG1, BMP, CBCDIF, HFP ####[facility] [address] [place] [address] ALP [Catalytic activity/Vol] 44 U/L Normal 38-113 [facility] Comment on above: Performed By: #### L IPA, MG1, BMP, CBCDIF, HFP ####[facility] [address] [place] [address] ALT [Catalytic activity/Vol] 20 U/L Normal 10-54 [facility] Comment on above: Performed By: #### L IPA, MG1, BMP, CBCDIF, HFP ####[facility] [address] [place] [address] AST [Catalytic activity/Vol] 20 U/L Normal 14-40 [facility] Comment on above: Performed By: #### L IPA, MG1, BMP, CBCDIF, HFP ####[facility] [address] [place] [address] Bilirubin [Mass/Vol] 0.3 mg/dL Normal 0.2-1.3 [facility] Comment on above: Performed By: #### L IPA, MG1, BMP, CBCDIF, HFP ####[facility] [address] [place] [address] Bilirubin,Conjugated <0.2 Normal <0.2 [facility] Comment on above: Performed By: #### L IPA, MG1, BMP, CBCDIF, HFP ####[facility] [address] [place] [address] Protein [Mass/Vol] 6.3 g/dL Normal 6.3-8.0 [facility] Comment on above: Performed By: #### L IPA, MG1, BMP, CBCDIF, HFP ####[facility] [address] [place] [phone] Lipaseon 11-12-2019 Lipase [Catalytic activity/Vol] 30 U/L Normal 16-61 [facility] Comment on above: Performed By: #### L IPA, MG1, BMP, CBCDIF, HFP ####[facility] [address] [place] [place] [phone] Magnesiumon 11-12-2019 Magnesium [Mass/Vol] 1.8 mg/dL Normal 1.7-2.3 [facility] Comment on above: Performed By: #### L IPA, MG1, BMP, CBCDIF, HFP ####[facility] [address] [place] [phone] NURSING PROGon 11-12-2019 NURSING PROG HNO ID: [id number] Author: Charlie (Rn) CARIN Gutierrez Service: ? Author Type: Registered Nurse Type: Nursing Progress Note Filed: 11/12/2019 6:21 PM Note Text: Nursing Progress Note Patient Name: Truong Rosario III Patient Location: [id number] 0711-pt resting in bed, A+Ox3, denies nausea/pain/sob/dizzines s/lightheadedness. Patent iv access maintained, IVF running without s/s complication. Awaiting outstanding UA sample. Urinal at bedside. Monitoring pt. 0915-pt c/o BERRIOS-given tylenol per NOV. Denies nausea/abd pain/dizziness/lighthead edness/SOB/cp. Patent iv access maintained, IVF running without complications. UA obtained and processing. Monitoring pt. 1110-pt verbalized BERRIOS resolved, denies pain. IVF running without complications. Denies nausea/abd pain/dizziness/lighthead edness/SOB/cp. Team rounded on pt. Pt refusing bath and eating meals, pt stated, I just want to rest. Pt resting quietly in bed. 1345-pt resting comfortably in bed, new bag IVF hung. Pt c/o chills, VSS, no fever noted. Labs drawn per order. Denies nausea/abd pain/dizziness/lighthead edness/SOB/cp.denies pain. Patent iv access and falls precautions remain. 1515- pt negligent to eat, fearing he will throw it up. Pt encouraged to increase po intake and educated on nausea regimen/poc. Primary Dr. Benitez updated on pt status t/o shift. Denies nausea/abd pain/dizziness/lighthead edness/SOB/cp. Patent iv access and falls precautions remain. 1700-pt relaxing in bed, Denies nausea/abd pain/dizziness/lighthead edness/SOB/cp.denies pain. Patent iv access and falls precautions remain. Dinner tray at bedside. Monitoring pt , patent iv access maintained. 1818-pt c/o feeling anxious. Pt also asking to take brilinta which he states he takes at home for management of previous cardiac stents. EMMA Seth made aware on floor. Per EMMA Seth, verbal order ok to restart brilinta on floor tonight. Following orders accordingly. Monitoring pt. This note was completed by: Charlie Gutierrez RN [facility] NURSING PROG HNO ID: [id number] Author: Leila (Rn) CARIN Lewis Service: ? Author Type: Registered Nurse Type: Nursing Progress Note Filed: 11/12/2019 6:25 AM Note Text: Nursing Progress Note Patient Name: Truong Rosario III Patient Location: [id number] Daily Note: 0300 pt awake, sinus rhythm on tele, no pain, no vomiting,symmetrical chest rise, vitals stable, complains of heart burn hospitalist notified. 0500 pt awake, sinus rhythm on tele, no vomiting,symmetrical chest rise, vitals stable, This note was completed by: Leila Lewis RN [facility] PLAN OF CAREon 11-12-2019 PLAN OF CARE HNO ID: [id number] Author: Wesley Benitez Service: Hospital Medicine Author Type: Physician Type: Plan of Care Filed: 11/12/2019 1:33 PM Note Text: Patient seen and examined. Resting and no pain/ any other symptoms. Continue on current Mx and monitoring overnight. [facility] PLAN OF CARE HNO ID: [id number] Author: Leti Seth (Pa) Service: Hospital Medicine Author Type: Physician Business Analytics Intern Type: Plan of Care Filed: 11/12/2019 4:58 AM Note Text: After completion of HANDP was made aware that patient's PCP is Dr. Lemus Discussed with solution spec [facility] group for private physicians who will contact Dr. Redding for possible transfer of care in the am [facility] Urinalysison 11-12-2019 Bilirubin, Urine Negative Normal Negative [facility] Comment on above: Performed By: #### U AMIC, UA #### [facility] [address] [place] [address] Clarity (U) Clear Normal Clear [facility] Comment on above: Performed By: #### U AMIC, UA #### [facility] [address] [place] [address] Color (U) Yellow Normal Yellow [facility] Comment on above: Performed By: #### U AMIC, UA #### [facility] [address] [place], [place] [phone] Glucose Ql (U) Negative Normal Negative [facility] Comment on above: Performed By: #### U AMIC, UA #### [facility] [address] [place] [address] Hemoglobin/Blood,Ur Small Critically abnormal Negative [facility] Comment on above: Performed By: #### U AMIC, UA #### [facility] [address] [place], [place] [phone] Ketones Ql (U) Negative Normal Negative [facility] Comment on above: Performed By: #### U AMIC, UA #### [facility] [address] [phone] Leukest Negative Normal Negative [facility] Comment on above: Performed By: #### U AMIC, UA #### [facility] [address] [phone] Nitrite Ql (U) Negative Normal Negative [facility] Comment on above: Performed By: #### U AMIC, UA #### [facility] [address] [address] pH (Bld) 6.5 Normal 5.0-8.0 [facility] Comment on above: Performed By: #### U AMIC, UA #### [facility] [address] [phone] Protein (U) [Mass/Vol] Negative Normal Negative [facility] Comment on above: Performed By: #### U AMIC, UA #### [facility] [address] [address] Specific Victor, Ur 1.025 Normal 1.001-1 .02 9 [facility] Comment on above: Performed By: #### U AMIC, UA #### [facility] [address] [address] Urobilinogen Qn (U) 0.2 Normal 0.2-1.0 [facility] Comment on above: Performed By: #### U AMIC, UA #### [facility] [address] Urine Microscopic (FOR LAB U SE ONLY)on 11-12-2019 Cast SEE COMMENT Normal 0 [facility] Comment on above: Result Comment: 0 Performed By: #### U AMIC, UA #### [facility] [address] [place] [address] Epithelial cells LM.HPF (Urine sed) [#/Area] SEE COMMENT Normal [facility] Comment on above: Result Comment: 0-5 Squamous Epithelial Cells Performed By: #### U AMIC, UA #### [facility] [address] RBC (U) [#/Vol] 3-5 Critically abnormal 0-3 [facility] Comment on above: Performed By: #### U AMIC, UA #### [facility] [address] [place], [place] [phone] WBC (Bld) [#/Vol] 0-5 Normal 0-5 [facility] Comment on above: Performed By: #### U AMIC, UA #### [facility] [address] [place], [place] [phone] PROGRESSon 10-08-2018 Protein mass conc HNO ID: [id number] Author: Provider Left [facility] Service: (none) Author Type: Physician Type: Progress Notes Filed: 10/08/2018 1:15 PM Note Text: This note is incomplete and has been administratively closed. [facility] CNOVon 01-09-2018 CNOV Office Visit (SLPBTH ) -------- TRUONG ROSARIO III ([id number]) 1960 M Date Time Provider Department 01/09/18 8:00 PM SLEEP LAB BATH BED 2 SLPBTH During your visit today, we recorded the following information about you: System, Provider Left [facility] 10/08/2018 1:15 PM Signed This note is incomplete and has been administratively closed. Referring Provider: PRERNA LEMUS [[id number]] Allergies As of Date: 01/09/2018 Noted Allergy Reaction MACROBID (NITROFURANTOIN MONOHYD/*07/26/2011 16 - Unknown MORPHINE 07/26/2011 16 - Unknown Date Reviewed: 02/21/2017 Reviewed by: Carol (Rn) CARIN Cisse - Fully Assessed Primary Visit Diagnosis:Administrative Closure Prescriptions as of 01/09/2018 Sig: LISINOPRIL 20 MG TABLET Take 20 mg by mouth once gracy* CHOLESTYRAMINE (WITH SUGAR) 4* Take 1 Packet by mouth twice * B COMPLEX 1 ORAL Take 1 tablet by mouth once d* SIMVASTATIN 40 MG TABLET Take 40 mg by mouth daily at * TRAZODONE 50 MG TABLET Take 75 mg by mouth daily at * AMLODIPINE 10 MG TABLET Take 10 mg by mouth once gracy* GABAPENTIN 400 MG CAPSULE Take 400 mg by mouth three ti* HYDROCHLOROTHIAZIDE 25 MG TAB* Take 25 mg by mouth once gracy* METOCLOPRAMIDE 10 MG TABLET Take 10 mg by mouth four time* ONDANSETRON HCL 4 MG TABLET Take 4 mg by mouth every 8 ho* ASPIRIN 81 MG TABLET,DELAYED * Take 1 tablet by mouth once d* CITALOPRAM 40 MG TABLET Take 40 mg by mouth once gracy* Problem List As Of Date 01/09/2018 Noted Resolved Abdominal pain [R10.9] INVALID FOR* More... HTN (hypertension) [I10] INVALID FOR* More... Cyclical vomiting syndrome [G43.A0] INVALID FOR* More... Leucocytosis [D72.829] INVALID FOR* Right hip pain [M25.551] INVALID FOR* Low back pain [M54.5] INVALID FOR* More... Lumbar spondylosis [M47.816] INVALID FOR* Chest pain [R07.9] INVALID FOR* More... Nausea and vomiting [R11.2] INVALID FOR* More... Family history of renal cancer [Z80.51] INVALID FOR* Mental status, decreased [R41.82] INVALID FOR* Encounter Status:Closed by SYSTEM, PROVIDER LEFT CLOSED on 10/08/18 Normal [facility] Vital Signs Date Time Vital Sign Value Performing Clinician Facility 12-05-2024 00:43-0400 Body temperature 98 [degF] Dr. Prerna Lemus DO Work Phone: [facility] 12-05-2024 00:43-0400 Diastolic blood pressure 100 mm[Hg] Dr. Prerna Lemus DO Work Phone: [facility] 12-05-2024 00:43-0400 Heart rate 97 /min Dr. Prerna Lemus DO Work Phone: [facility] 12-05-2024 00:43-0400 Respiratory rate 18 /min Dr. Prerna Lemus DO Work Phone: [facility] 12-05-2024 00:43-0400 SaO2% (BldA) [Mass fraction] 97 % Dr. Prerna Lemus DO Work Phone: [facility] 12-05-2024 00:43-0400 Systolic blood pressure 156 mm[Hg] Dr. Prerna Lemus DO Work Phone: [facility] 12-04-2024 18:36-0400 Body height 177.[address] Prerna Lemus DO Work Phone: [facility] 12-04-2024 18:36-0400 Body mass index (BMI) [Ratio] 23.6 kg/m2 Dr. Prerna Lemus DO Work Phone: [facility] 12-04-2024 18:36-0400 Body weight 74.[address] Prerna Lemus DO Work Phone: [facility] 11-13-2024 15:33-0500 Body temperature 98.1 [degF] Dr. Prerna Lemus DO Work Phone: [facility] 11-13-2024 15:33-0500 Diastolic blood pressure 92 mm[Hg] Dr. Prerna Lemus DO Work Phone: [facility] 11-13-2024 15:33-0500 Heart rate 69 /min Dr. Prerna Lemus DO Work Phone: [facility] 11-13-2024 15:33-0500 Respiratory rate 18 /min Dr. Prerna Lemus DO Work Phone: [facility] 11-13-2024 15:33-0500 SaO2% (BldA) [Mass fraction] 98 % Dr. Prerna Lemus DO Work Phone: [facility] 11-13-2024 15:33-0500 Systolic blood pressure 157 mm[Hg] Dr. Prerna Lemus DO Work Phone: [facility] 11-13-2024 07:59-0500 Body mass index (BMI) [Ratio] 23.8 kg/m2 Dr. Prerna Lemus DO Work Phone: [facility] 11-13-2024 07:59-0500 Body weight 75.[address] Prerna Lemus DO Work Phone: [facility] 10-23-2024 15:31-0500 Body temperature 98 [degF] Dr. Prerna Lemus DO Work Phone: [facility] 10-23-2024 15:31-0500 Diastolic blood pressure 78 mm[Hg] Dr. Prerna Lemus DO Work Phone: [facility] 10-23-2024 15:31-0500 Heart rate 86 /min Dr. Prerna Lemus DO Work Phone: [facility] 10-23-2024 15:31-0500 Respiratory rate 18 /min Dr. Prerna Lemus DO Work Phone: [facility] 10-23-2024 15:31-0500 SaO2% (BldA) [Mass fraction] 100 % Dr. Prerna Lemus DO Work Phone: [facility] 10-23-2024 15:31-0500 Systolic blood pressure 149 mm[Hg] Dr. Prerna Lemus DO Work Phone: [facility] 10-23-2024 11:20-0500 Body mass index (BMI) [Ratio] 24.8 kg/m2 Dr. Prerna Lemus DO Work Phone: [facility] 10-23-2024 11:20-0500 Body weight 78.[address] Prerna Lemus DO Work Phone: [facility] 10-20-2024 13:03-0500 Body mass index (BMI) [Ratio] 25 kg/m2 Dr. Prerna Lemus DO Work Phone: [facility] 10-20-2024 13:03-0500 Body temperature 98 [degF] Dr. Prerna Lemus DO Work Phone: [facility] 10-20-2024 13:03-0500 Body weight 78.[address] Prerna Lemus DO Work Phone: [facility] 10-20-2024 13:03-0500 Diastolic blood pressure 88 mm[Hg] Dr. Prerna Lemus DO Work Phone: [facility] 10-20-2024 13:03-0500 Heart rate 98 /min Dr. Prerna Lemus DO Work Phone: [facility] 10-20-2024 13:03-0500 Respiratory rate 15 /min Dr. Prerna Lemus DO Work Phone: [facility] 10-20-2024 13:03-0500 SaO2% (BldA) [Mass fraction] 97 % Dr. Prerna Lemus DO Work Phone: [facility] 10-20-2024 13:03-0500 Systolic blood pressure 132 mm[Hg] Dr. Prerna Lemus DO Work Phone: [facility] 10-18-2024 08:18-0500 SaO2% (BldA) [Mass fraction] 96 % Dr. Prerna Lemus DO Work Phone: [facility] 10-18-2024 08:15-0500 Heart rate 77 /min Dr. Prerna Lemus DO Work Phone: [facility] 10-18-2024 08:10-0500 Body temperature 98.1 [degF] Dr. Prerna Lemus DO Work Phone: [facility] 10-18-2024 08:10-0500 Diastolic blood pressure 86 mm[Hg] Dr. Prerna Lemus DO Work Phone: [facility] 10-18-2024 08:10-0500 Respiratory rate 18 /min Dr. Prerna Lemus DO Work Phone: [facility] 10-18-2024 08:10-0500 Systolic blood pressure 144 mm[Hg] Dr. Prerna Lemus DO Work Phone: [facility] 10-18-2024 06:00-0500 Body mass index (BMI) [Ratio] 23.9 kg/m2 Dr. Prerna Lemus DO Work Phone: [facility] 10-18-2024 06:00-0500 Body weight 75.[address] Prerna Lemus DO Work Phone: [facility] 10-16-2024 15:29-0500 Body temperature 97.9 [degF] Dr. Prerna Lemus DO Work Phone: [facility] 10-16-2024 15:29-0500 Diastolic blood pressure 67 mm[Hg] Dr. Prerna Lemus DO Work Phone: [facility] 10-16-2024 15:29-0500 Heart rate 93 /min Dr. Prerna Lemus DO Work Phone: [facility] 10-16-2024 15:29-0500 Respiratory rate 16 /min Dr. Prerna Lemus DO Work Phone: [facility] 10-16-2024 15:29-0500 SaO2% (BldA) [Mass fraction] 95 % Dr. Prerna Lemus DO Work Phone: [facility] 10-16-2024 15:29-0500 Systolic blood pressure 130 mm[Hg] Dr. Prerna Lemus DO Work Phone: [facility] 10-16-2024 12:53-0500 Body mass index (BMI) [Ratio] 25.4 kg/m2 Dr. Prerna Lemus DO Work Phone: [facility] 10-16-2024 12:53-0500 Body weight 80.[address] Prerna Lemus DO Work Phone: [facility] 10-03-2024 17:32-0500 Body temperature 98.2 [degF] Dr. Prerna Lemus DO Work Phone: [facility] 10-03-2024 17:32-0500 Diastolic blood pressure 85 mm[Hg] Dr. Prerna Lemus DO Work Phone: [facility] 10-03-2024 17:32-0500 Heart rate 83 /min Dr. Prerna Lemus DO Work Phone: [facility] 10-03-2024 17:32-0500 Respiratory rate 16 /min Dr. Prerna Lemus DO Work Phone: [facility] 10-03-2024 17:32-0500 SaO2% (BldA) [Mass fraction] 99 % Dr. Prerna Lemus DO Work Phone: [facility] 10-03-2024 17:32-0500 Systolic blood pressure 124 mm[Hg] Dr. Prerna Lemus DO Work Phone: [facility] 10-03-2024 14:46-0500 Body mass index (BMI) [Ratio] 25 kg/m2 Dr. Prerna Lemus DO Work Phone: [facility] 10-03-2024 14:46-0500 Body weight 78.[address] Prerna Lemus DO Work Phone: [facility] 09-22-2024 13:31-0500 Body mass index (BMI) [Ratio] 24.5 kg/m2 Dr. Prerna Lemus DO Work Phone: [facility] 09-22-2024 13:31-0500 Body temperature 97.8 [degF] Dr. Prerna Lemus DO Work Phone: [facility] 09-22-2024 13:31-0500 Body weight 77.[address] Prerna Lemus DO Work Phone: [facility] 09-22-2024 13:31-0500 Diastolic blood pressure 80 mm[Hg] Dr. Prerna Lemus DO Work Phone: [facility] 09-22-2024 13:31-0500 Heart rate 96 /min Dr. Prerna Lemus DO Work Phone: [facility] 09-22-2024 13:31-0500 Respiratory rate 17 /min Dr. Prerna Lemus DO Work Phone: [facility] 09-22-2024 13:31-0500 SaO2% (BldA) [Mass fraction] 98 % Dr. Prerna Lemus DO Work Phone: [facility] 09-22-2024 13:31-0500 Systolic blood pressure 140 mm[Hg] Dr. Prerna Lemus DO Work Phone: [facility] 09-03-2024 15:45-0500 Body temperature 98 [degF] Dr. Prerna Lemus DO Work Phone: [facility] 09-03-2024 15:45-0500 Diastolic blood pressure 96 mm[Hg] Dr. Prerna Lemus DO Work Phone: [facility] 09-03-2024 15:45-0500 Heart rate 90 /min Dr. Prerna Lemus DO Work Phone: [facility] 09-03-2024 15:45-0500 Respiratory rate 16 /min Dr. Prerna Lemus DO Work Phone: [facility] 09-03-2024 15:45-0500 SaO2% (BldA) [Mass fraction] 96 % Dr. Prerna Lemus DO Work Phone: [facility] 09-03-2024 15:45-0500 Systolic blood pressure 144 mm[Hg] Dr. Prerna Lemus DO Work Phone: [facility] 09-03-2024 13:47-0500 Body weight 77.[address] Prerna Lemus DO Work Phone: [facility] 09-03-2024 03:48-0500 Body mass index (BMI) [Ratio] 24.5 kg/m2 Dr. Prerna Lemus DO Work Phone: [facility] 08-14-2024 13:32-0500 Body mass index (BMI) [Ratio] 26.2 kg/m2 Dr. Prerna Lemus DO Work Phone: [facility] 08-14-2024 13:32-0500 Body temperature 98.2 [degF] Dr. Prerna Lemus DO Work Phone: [facility] 08-14-2024 13:32-0500 Body weight 83.[address] Prerna Lemus DO Work Phone: [facility] 08-14-2024 13:32-0500 Diastolic blood pressure 80 mm[Hg] Dr. Prerna Lemus DO Work Phone: [facility] 08-14-2024 13:32-0500 Heart rate 79 /min Dr. Prerna Lemus DO Work Phone: [facility] 08-14-2024 13:32-0500 Respiratory rate 17 /min Dr. Prerna Lemus DO Work Phone: [facility] 08-14-2024 13:32-0500 SaO2% (BldA) [Mass fraction] 98 % Dr. Prerna Lemus DO Work Phone: [facility] 08-14-2024 13:32-0500 Systolic blood pressure 128 mm[Hg] Dr. Prerna Lemus DO Work Phone: [facility] 01-26-2024 17:10-0400 Body temperature 98.2 [degF] [facility] 01-26-2024 17:10-0400 Diastolic blood pressure 78 mm[Hg] [facility] 01-26-2024 17:10-0400 Heart rate 71 /min [facility] 01-26-2024 17:10-0400 Respiratory rate 16 /min [facility] 01-26-2024 17:10-0400 SaO2% (BldA) [Mass fraction] 99 % [facility] 01-26-2024 17:10-0400 Systolic blood pressure 142 mm[Hg] [facility] 01-26-2024 12:38-0400 Body height 177.8 cm [facility] 01-26-2024 12:38-0400 Body mass index (BMI) [Ratio] 27.2 kg/m2 [facility] 01-26-2024 12:38-0400 Body weight 86.18 kg [facility] 01-16-2024 15:41-0400 Body temperature 98 [degF] [facility] 01-16-2024 15:41-0400 Diastolic blood pressure 83 mm[Hg] [facility] 01-16-2024 15:41-0400 Heart rate 75 /min [facility] 01-16-2024 15:41-0400 Respiratory rate 18 /min [facility] 01-16-2024 15:41-0400 SaO2% (BldA) [Mass fraction] 92 % [facility] 01-16-2024 15:41-0400 Systolic blood pressure 154 mm[Hg] [facility] 01-16-2024 10:47-0400 Body height 178 cm [facility] 01-16-2024 10:47-0400 Body mass index (BMI) [Ratio] 28.3 kg/m2 [facility] 01-16-2024 10:47-0400 Body weight 89.94 kg [facility] 12-25-2023 13:21-0400 Body temperature 98.6 [degF] [facility] 12-25-2023 13:21-0400 Diastolic blood pressure 85 mm[Hg] [facility] 12-25-2023 13:21-0400 Heart rate 88 /min [facility] 12-25-2023 13:21-0400 Respiratory rate 14 /min [facility] 12-25-2023 13:21-0400 SaO2% (BldA) [Mass fraction] 97 % [facility] 12-25-2023 13:21-0400 Systolic blood pressure 135 mm[Hg] [facility] 12-18-2023 11:30-0400 Body height 177.8 cm [facility] 12-17-2023 13:24-0400 Body temperature 97.8 [degF] [facility] 13:24-0400 Body weight 91.79 [facility] [place] 12-17-2023 13:24-0400 Diastolic blood pressure 78 mm[Hg] [facility] 12-17-2023 13:24-0400 Heart rate 98 /min [facility] 12-17-2023 13:24-0400 Respiratory rate 14 /min [facility] 12-17-2023 13:24-0400 SaO2% (BldA) [Mass fraction] 98 % [facility] 12-17-2023 13:24-0400 Systolic blood pressure 115 mm[Hg] [facility] 09-06-2023 18:00-0500 Respiratory rate 18 /min No Primary Care Physician [facility] 09-06-2023 18:00-0500 SaO2% (BldA) [Mass fraction] 100 % No Primary Care Physician [facility] 09-06-2023 16:00-0500 Heart rate 65 /min No Primary Care Physician [facility] 09-06-2023 11:51-0500 Body height 177.8 cm No Primary Care Physician [facility] 09-06-2023 11:51-0500 Body mass index (BMI) [Ratio] 28.2 kg/m2 No Primary Care Physician [facility] 09-06-2023 11:51-0500 Body temperature 98.2 [degF] No Primary Care Physician [facility] 09-06-2023 11:51-0500 Body weight 89.3 kg No Primary Care Physician [facility] 09-06-2023 11:51-0500 Diastolic blood pressure 118 mm[Hg] No Primary Care Physician [facility] 09-06-2023 11:51-0500 Systolic blood pressure 168 mm[Hg] No Primary Care Physician [facility] 08-22-2023 07:57-0500 Body mass index (BMI) [Ratio] 28.3 kg/m2 No Primary Care Physician [facility] 08-22-2023 07:57-0500 Body temperature 98.6 [degF] No Primary Care Physician [facility] 08-22-2023 07:57-0500 Body weight 89.52 kg No Primary Care Physician [facility] 08-22-2023 07:57-0500 Diastolic blood pressure 88 mm[Hg] No Primary Care Physician [facility] 08-22-2023 07:57-0500 Heart rate 91 /min No Primary Care Physician [facility] 08-22-2023 07:57-0500 Respiratory rate 17 /min No Primary Care Physician [facility] 08-22-2023 07:57-0500 SaO2% (BldA) [Mass fraction] 98 % No Primary Care Physician [facility] 08-22-2023 07:57-0500 Systolic blood pressure 142 mm[Hg] No Primary Care Physician [facility] 07-04-2023 09:32-[address] SOBEIDA JOHNS MD [facility] [place] 07-04-2023 09:32-0400 Body temperature 97.34 [degF] DR SOBEIDA JOHNS MD [facility] [place] 07-04-2023 09:32-0400 Diastolic Blood Pressure Non-Invasive [address] SOBEIDA JOHNS MD [facility] [place] 07-04-2023 09:32-0400 Heart rate 65 /min DR SOBEIDA JOHNS MD [facility] [place] 07-04-2023 09:32-0400 Respiratory rate 12 /min DR SOBEIDA JOHNS MD [facility] [place] 07-04-2023 09:32-0400 Systolic Blood Pressure Non-Invasive [address] SOBEIDA JOHNS MD [facility] [place] 07-04-2023 09:09-0400 Body temperature 97.16 [degF] DR SOBEIDA JOHNS MD [facility] [place] 07-04-2023 09:09-0400 Diastolic Blood Pressure Non-Invasive [address] SOBEIDA JOHNS MD [facility] [place] 07-04-2023 09:09-0400 Heart rate 74 /min DR SOBEIDA JOHNS MD [facility] [place] 07-04-2023 09:09-0400 Respiratory rate 19 /min DR SOBEIDA JOHNS MD [facility] [place] 07-04-2023 09:09-0400 Systolic Blood Pressure Non-Invasive [address] SOBEIDA JOHNS MD [facility] [place] 07-04-2023 09:00-0400 Diastolic Blood Pressure Non-Invasive [address] SOBEIDA JOHNS MD [facility] [place] 07-04-2023 09:00-0400 Heart rate 75 /min DR SOBEIDA JOHNS MD [facility] [place] 07-04-2023 08:55-0400 Respiratory Rate - Anes 22 br/min DR SOBEIDA JOHNS MD [facility] [place] 07-04-2023 08:50-0400 Respiratory Rate - Anes 27 br/min DR SOBEIDA JOHNS MD [facility] [place] 07-04-2023 07:48-[address] SOBEIDA JOHNS MD [facility] [place] 07-04-2023 07:48-0400 Body height 177.[address] SOBEIDA JOHNS MD [facility] [place] 07-04-2023 07:48-0400 Body temperature 98.24 [degF] DR SOBEIDA JOHNS MD [facility] [place] 07-04-2023 07:48-0400 Body weight 88.[address] SOBEIDA JOHNS MD [facility] [place] 07-04-2023 07:48-0400 Body weight 28.03 kg/m2 DR SOBEIDA JOHNS MD [facility] [place] 07-04-2023 07:48-0400 Heart rate 79 /min DR SOBEIDA JOHNS MD [facility] [place] 07-04-2023 07:48-0400 Respiratory rate 12 /min DR SOBEIDA JOHNS MD [facility] [place] 06-18-2023 18:53-0400 Diastolic blood pressure 76 mm[Hg] No Primary Care Physician [facility] 06-18-2023 18:53-0400 Heart rate 88 /min No Primary Care Physician [facility] 06-18-2023 18:53-0400 Respiratory rate 16 /min No Primary Care Physician [facility] 06-18-2023 18:53-0400 SaO2% (BldA) [Mass fraction] 94 % No Primary Care Physician [facility] 06-18-2023 18:53-0400 Systolic blood pressure 148 mm[Hg] No Primary Care Physician [facility] 06-18-2023 14:33-0400 Body temperature 97.6 [degF] No Primary Care Physician [facility] 04-08-2023 11:15-0400 Body temperature 99.14 [degF] Miguel Ángel Hou Other Phone: [facility] 04-08-2023 11:15-0400 Diastolic blood pressure 86 mm[Hg] Miguel Ángel Hou Other Phone: [facility] 04-08-2023 11:15-0400 Heart rate 54 /min Miguel Ángel Hou Other Phone: [facility] 04-08-2023 11:15-0400 Respiratory rate 19 /min Miguel Ángel Hou Other Phone: [facility] 04-08-2023 11:15-0400 SaO2% (BldA) [Mass fraction] 96 % Miguel Ángel Cuevasdonny Other Phone: [facility] 04-08-2023 11:15-0400 Systolic blood pressure 149 mm[Hg] Miguel Ángel Cuevasdonny Other Phone: [facility] 04-08-2023 08:18-0400 Body weight 82.1 kg Miguel Ángel Ameya Other Phone: [facility] 04-06-2023 20:36-0400 Body temperature 98.24 [degF] BILLIE BARRETO MD FACP [address] [place] [address] 04-06-2023 20:36-0400 Diastolic Blood Pressure Non-Invasive 84 1 BILLIE BARRETO MD FACP [address] [place] [address] 04-06-2023 20:36-0400 Heart rate 66 /min BILLIE BARRETO MD FACP [address] [place] [address] 04-06-2023 20:36-0400 Respiratory rate 20 /min BILLIE BARRETO MD FACP [address] [place] [address] 04-06-2023 20:36-0400 Systolic Blood Pressure Non-Invasive 161 1 BILLIE BARRETO MD FACP [address] [place] [address] 04-06-2023 20:14-0400 Body height 177.8 cm BILLIE BARRETO MD FACP [address] [place] [address] 04-06-2023 20:14-0400 Body weight 84.1 kg BILLIE BARRETO MD FACP [address] [place] [address] 04-06-2023 20:14-0400 Body weight 26.6 kg/m2 BILLIE BARRETO MD FACP [address] [place] [address] 04-06-2023 17:45-0400 Diastolic Blood Pressure Non-Invasive 74 1 JAMEL MARCUS MD [facility] [place] 04-06-2023 17:45-0400 Heart rate 83 /min JAMEL MARCUS MD [facility] [place] 04-06-2023 17:45-0400 Respiratory rate 18 /min JAMEL MARCUS MD [facility] [place] 04-06-2023 17:45-0400 Systolic Blood Pressure Non-Invasive 140 1 JAMEL MARCUS MD [facility] [place] 04-06-2023 15:32-0400 Diastolic Blood Pressure Non-Invasive 72 1 JAMEL MARCUS MD [facility] [place] 04-06-2023 15:32-0400 Heart rate 86 /min JAMEL MARCUS MD [facility] [place] 04-06-2023 15:32-0400 Respiratory rate 18 /min JAMEL MARCUS MD [facility] [place] 04-06-2023 15:32-0400 Systolic Blood Pressure Non-Invasive 139 1 JAMEL MARCUS MD [facility] [place] 04-06-2023 12:50-0400 Diastolic Blood Pressure Non-Invasive 73 1 JAMEL MARCUS MD [facility] [place] 04-06-2023 12:50-0400 Heart rate 78 /min JAMEL MARCUS MD [facility] [place] 04-06-2023 12:50-0400 Respiratory rate 16 /min JAMEL MARCUS MD [facility] [place] 04-06-2023 12:50-0400 Systolic Blood Pressure Non-Invasive 138 1 JAMEL MARCUS MD [facility] [place] 04-06-2023 05:15-0400 Reason For Taking VItal Signs JAMEL MARCUS MD [facility] [place] 04-06-2023 04:33-0400 Body height 177.8 cm JAMEL MARCUS MD [facility] [place] 04-06-2023 04:33-0400 Body temperature 98.24 [degF] JAMEL MARCUS MD [facility] [place] 04-06-2023 04:33-0400 Body weight 86.4 kg JAMEL MARCUS MD [facility] [place] 03-27-2023 16:23-0400 Diastolic Blood Pressure Non-Invasive 78 1 JOSEPH LLAMAS MD [facility] [place] 03-27-2023 16:23-0400 Heart rate 68 /min JOSEPH LLAMAS MD [facility] [place] 03-27-2023 16:23-0400 Respiratory rate 18 /min JOSEPH LLAMAS MD [facility] [place] 03-27-2023 16:23-0400 Systolic Blood Pressure Non-Invasive 149 1 JOSEPH LLAMAS MD [facility] [place] 03-27-2023 15:42-0400 Diastolic Blood Pressure Non-Invasive 90 1 JOSEPH LLAMAS MD [facility] [place] 03-27-2023 15:42-0400 Heart rate 70 /min JOSEPH LLAMAS MD [facility] [place] 03-27-2023 15:42-0400 Respiratory rate 18 /min JOSEPH LLAMAS MD [facility] [place] 03-27-2023 15:42-0400 Systolic Blood Pressure Non-Invasive 160 1 JOSEPH LLAMAS MD [facility] [place] 03-27-2023 14:24-0400 Body height 177.8 cm JOSEPH LLAMAS MD [facility] [place] 03-27-2023 14:24-0400 Body temperature 98.6 [degF] JOSEPH LLAMAS MD [facility] [place] 03-27-2023 14:24-0400 Body weight 90.9 kg JOSEPH LLAMAS MD [facility] [place] 03-27-2023 14:24-0400 Diastolic Blood Pressure Non-Invasive 97 1 JOSEPH LLAMAS MD [facility] [place] 03-27-2023 14:24-0400 Heart rate 90 /min JOSEPH LLAMAS MD [facility] [place] 03-27-2023 14:24-0400 Respiratory rate 20 /min JOSEPH LLAMAS MD [facility] [place] 03-27-2023 14:24-0400 Systolic Blood Pressure Non-Invasive 129 1 JOSEPH LLAMAS MD [facility] [place] 03-09-2023 08:36-[address] CLARISSE QUEEN MD [facility] [place] 03-09-2023 08:36-[address] CLARISSE QUEEN MD [facility] [place] 03-09-2023 08:36-0400 Diastolic Blood Pressure Non-Invasive [address] CLARISSE QUEEN MD [facility] [place] 03-09-2023 08:36-0400 Heart rate 97 /min DR CLARISSE QUEEN MD [facility] [place] 03-09-2023 08:36-0400 Respiratory rate 18 /min DR CLARISSE QUEEN MD [facility] [place] 03-09-2023 08:36-0400 Systolic Blood Pressure Non-Invasive [address] CLARISSE QUEEN MD [facility] [place] 03-09-2023 05:47-0400 Diastolic Blood Pressure Non-Invasive [address] CLARISSE QUEEN MD [facility] [place] 03-09-2023 05:47-0400 Heart rate 92 /min DR CLARISSE QUEEN MD [facility] [place] 03-09-2023 05:47-0400 Respiratory rate 18 /min DR CLARISSE QUEEN MD [facility] [place] 03-09-2023 05:47-0400 Systolic Blood Pressure Non-Invasive [address] CLARISSE QUEEN MD [facility] [place] 03-09-2023 05:30-0400 Heart rate 102 /min DR CLARISSE QUEEN MD [facility] [place] 03-09-2023 04:50-0400 Blood Pressure Cuff Size DR CLARISSE QUEEN MD [facility] [place] 03-09-2023 04:50-[address] CLARISSE QUEEN MD [facility] [place] 03-09-2023 04:50-[address] CLARISSE QUEEN MD [facility] [place] 03-09-2023 04:50-0400 Body height 177.[address] CLARISSE QUEEN MD [facility] [place] 03-09-2023 04:50-0400 Body temperature 97.34 [degF] DR CLARISSE QUEEN MD [facility] [place] 03-09-2023 04:50-0400 Body weight 88.[address] CLARISSE QUEEN MD [facility] [place] 03-09-2023 04:50-0400 Diastolic Blood Pressure Non-Invasive [address] CLARISSE QUEEN MD [facility] [place] 03-09-2023 04:50-0400 Reason For Taking VItal Signs DR CLARISSE QUEEN MD [facility] [place] 03-09-2023 04:50-0400 Respiratory rate 22 /min DR CLARISSE QUEEN MD [facility] [place] 03-09-2023 04:50-0400 Systolic Blood Pressure Non-Invasive [address] CLARISSE QUEEN MD [facility] [place] 03-08-2023 12:14-0400 Body height 177.8 cm [facility] 03-08-2023 12:14-0400 Body temperature 97.4 [degF] [facility] 03-08-2023 12:14-0400 Diastolic blood pressure 124 mm[Hg] [facility] 03-08-2023 12:14-0400 Heart rate 120 /min [facility] 03-08-2023 12:14-0400 Respiratory rate 18 /min [facility] 03-08-2023 12:14-0400 SaO2% (BldA) [Mass fraction] 98 % [facility] 03-08-2023 12:14-0400 Systolic blood pressure 155 mm[Hg] [facility] 01-01-2023 18:21-0400 Diastolic blood pressure 103 mm[Hg] [facility] 01-01-2023 18:21-0400 Systolic blood pressure 170 mm[Hg] [facility] 01-01-2023 15:14-0400 Heart rate 81 /min [facility] 01-01-2023 15:14-0400 Respiratory rate 12 /min [facility] 01-01-2023 15:14-0400 SaO2% (BldA) [Mass fraction] 97 % [facility] 01-01-2023 13:15-0400 Body height 177.8 cm [facility] 01-01-2023 13:15-0400 Body mass index (BMI) [Ratio] 30.1 kg/m2 [facility] 01-01-2023 13:15-0400 Body temperature 96.9 [degF] [facility] 01-01-2023 13:15-0400 Body weight 95.25 kg [facility] 12-28-2022 00:04-0400 Diastolic blood pressure 89 mm[Hg] [facility] 12-28-2022 00:04-0400 Heart rate 87 /min [facility] 12-28-2022 00:04-0400 Respiratory rate 20 /min [facility] 12-28-2022 00:04-0400 SaO2% (BldA) [Mass fraction] 98 % [facility] 12-28-2022 00:04-0400 Systolic blood pressure 166 mm[Hg] [facility] 12-27-2022 19:07-0400 Body mass index (BMI) [Ratio] 27.1 kg/m2 [facility] 12-27-2022 19:07-0400 Body weight 85.6 kg [facility] 12-27-2022 15:32-0400 Body height 177.8 cm [facility] 12-27-2022 15:32-0400 Body temperature 96 [degF] [facility] 12-06-2022 14:02-0400 Diastolic blood pressure 86 mm[Hg] [facility] 12-06-2022 14:02-0400 Heart rate 72 /min [facility] 12-06-2022 14:02-0400 Respiratory rate 18 /min [facility] 12-06-2022 14:02-0400 Systolic blood pressure 160 mm[Hg] [facility] 12-06-2022 12:19-0400 SaO2% (BldA) [Mass fraction] 98 % [facility] 12-06-2022 09:45-0400 Body height 177.8 cm [facility] 12-06-2022 09:45-0400 Body mass index (BMI) [Ratio] 28.7 kg/m2 [facility] 12-06-2022 09:45-0400 Body temperature 97 [degF] [facility] 12-06-2022 09:45-0400 Body weight 90.7 kg [facility] 11-17-2022 20:15-0500 Diastolic blood pressure 74 mm[Hg] [facility] 11-17-2022 20:15-0500 Heart rate 78 /min [facility] 11-17-2022 20:15-0500 Respiratory rate 18 /min [facility] 11-17-2022 20:15-0500 SaO2% (BldA) [Mass fraction] 97 % [facility] 11-17-2022 20:15-0500 Systolic blood pressure 132 mm[Hg] [facility] 11-17-2022 17:47-0500 Body height 177.8 cm [facility] 11-17-2022 17:47-0500 Body mass index (BMI) [Ratio] 28.7 kg/m2 [facility] 11-17-2022 17:47-0500 Body weight 90.71 kg [facility] 11-17-2022 15:35-0500 Body temperature 97.8 [degF] [facility] 11-11-2022 19:34-0500 Diastolic blood pressure 79 mm[Hg] [facility] 11-11-2022 19:34-0500 Heart rate 63 /min [facility] 11-11-2022 19:34-0500 Respiratory rate 18 /min [facility] 11-11-2022 19:34-0500 Systolic blood pressure 132 mm[Hg] [facility] 11-11-2022 18:52-0500 SaO2% (BldA) [Mass fraction] 92 % [facility] 11-11-2022 15:34-0500 Body mass index (BMI) [Ratio] 27.9 kg/m2 [facility] 11-11-2022 15:34-0500 Body temperature 97 [degF] [facility] 11-11-2022 15:34-0500 Body weight 88.3 kg [facility] 06-27-2022 22:24-0400 Diastolic blood pressure 96 mm[Hg] JOSEPH LLAMAS MD [facility] [place] 06-27-2022 22:24-0400 Heart rate 80 /min JOSEPH LLAMAS MD [facility] [place] 06-27-2022 22:24-0400 Respiratory rate 18 /min JOSEPH LLAMAS MD [facility] [place] 06-27-2022 22:24-0400 Systolic blood pressure 146 mm[Hg] JOSEPH LLAMAS MD [facility] [facility] [place] 06-27-2022 19:20-0400 Body temperature 98.06 [degF] JOSEPH LLAMAS MD [facility] [place] 06-27-2022 19:20-0400 Diastolic blood pressure 92 mm[Hg] JOSEPH LLAMAS MD [facility] [place] 06-27-2022 19:20-0400 Heart rate 90 /min JOSEPH LLAMAS MD [facility] [place] 06-27-2022 19:20-0400 Respiratory rate 20 /min JOSEPH LLAMAS MD [facility] [place] 06-27-2022 19:20-0400 Systolic blood pressure 169 mm[Hg] JOSEPH LLAMAS MD [facility] [place] 06-25-2022 15:31-0400 Diastolic blood pressure 95 mm[Hg] HAN SAVAGE DO [facility] [place] 06-25-2022 15:31-0400 Heart rate 120 /min HAN SAVAGE DO [facility] [place] 06-25-2022 15:31-0400 Respiratory rate 18 /min HAN SAVAGE DO [facility] [place] 06-25-2022 15:31-0400 Systolic blood pressure 145 mm[Hg] HAN SAVAGE DO [facility] [place] 06-25-2022 14:25-0400 Body temperature 98.06 [degF] HAN SAVAGE DO [facility] [place] 06-25-2022 14:25-0400 Diastolic blood pressure 101 mm[Hg] HAN SAVAGE DO [facility] [place] 06-25-2022 14:25-0400 Heart rate 128 /min HAN SAVAGE DO [facility] [place] 06-25-2022 14:25-0400 Respiratory rate 18 /min HAN SAVAGE DO [facility] [place] 06-25-2022 14:25-0400 Systolic blood pressure 150 mm[Hg] HAN SAVAGE DO [facility] [place] 06-17-2022 05:30-0400 Body temperature 98.06 [degF] DR MIGUEL ÁNGEL BARROSO MD [facility] [place] 06-17-2022 05:30-0400 Diastolic blood pressure 90 mm[Hg] DR MIGUEL ÁNGEL BARROSO MD [facility] [place] 06-17-2022 05:30-0400 Heart rate 80 /min DR MIGUEL ÁNGEL BARROSO MD [facility] [place] 06-17-2022 05:30-0400 Respiratory rate 18 /min DR MIGUEL ÁNGEL BARROSO MD [facility] [place] 06-17-2022 05:30-0400 Systolic blood pressure 148 mm[Hg] DR MIGUEL ÁNGEL BARROSO MD [facility] [place] Encounters Encounter Date Encounter Type Care Provider Facility Start: 12-04-2024 End: 12-05-2024 Dr. Prerna Lemus DO Work Phone: -Emergency Department Work Phone: Start: 12-04-2024 End: 12-05-2024 Emergency department patient visit Romero Harrington Facility:[facility] Start: 11-13-2024 Dr. Aracelis Roberson MD - [facility] Work Phone: Start: 11-13-2024 Aiden Baptiste DO -[facility] Start: 11-13-2024 End: 11-13-2024 ambulatory [facility] Facility[facility] Start: 11-13-2024 End: 11-13-2024 Dr. Lori Xavier MD -[facility] Work Phone: Start: 11-12-2024 Dr. Aracelis Roberson MD - [facility] Work Phone: Start: 11-12-2024 Aiden Baptiste DO -[facility] Start: 11-11-2024 Dr. Talib Diaz MD -[facility] Work Phone: Start: 11-10-2024 End: 11-13-2024 Evaluation and management of inpatient Dewey Kam Facility:[facility] Start: 11-10-2024 ambulatory Dewey Kam [facility] Start: 11-10-2024 End: 11-13-2024 Dr. Aracelis Roberson MD -[facility] 3 Work Phone: Start: 10-23-2024 End: 10-23-2024 Dr. Henry Ortiz MD -Emergency Departm ent Work Phone: Start: 10-23-2024 End: 10-23-2024 Emergency department patient visit Prerna Lemus Facility:[facility] Start: 10-20-2024 End: 10-20-2024 Dr. Fredi Angeles MD -[facility] Work Phone: Start: 10-20-2024 End: 10-20-2024 ambulatory [facility] Facility:[facility] Start: 10-20-2024 End: 10-20-2024 ambulatory [facility] Facility:[facility] Start: 10-18-2024 Dr. Mer Frias MD -[facility] Work Phone: Start: 10-17-2024 End: 10-18-2024 ambulatory Mer Frias Facility:[facility] Start: 10-17-2024 End: 10-18-2024 Dr. Mer Frias MD -Medical Surgical 3 Work Phone: Start: 10-16-2024 End: 10-16-2024 Dr. Truong Cooper DO -Emergency Departmt nt Work Phone: Start: 10-16-2024 End: 10-16-2024 Emergency department patient visit Prerna Lemus Facility:[facility] Start: 10-03-2024 End: 10-03-2024 Dr. Dada Chung MD -Emergency Departmen t Work Phone: Start: 10-03-2024 End: 10-03-2024 Emergency department patient visit Dada Chung Facility:[facility] Start: 09-22-2024 End: 09-22-2024 Dr. Fredi Angeles MD -[facility] Work Phone: Start: 09-22-2024 End: 09-22-2024 ambulatory [facility] Facility[facility] Start: 09-03-2024 Dr. Mirta Meza DO -[facility] Work Phone: Start: 09-02-2024 End: 09-03-2024 ambulatory Iris Orozco Facility:[facility] Start: 09-02-2024 End: 09-03-2024 Dr. Mirta Derrick DO -[facility] Work Phone: Start: 08-14-2024 End: 08-14-2024 Dr. Fredi Angeles MD -[facility] Work Phone: Start: 08-14-2024 End: 08-14-2024 ambulatory Fredi Angeles Facility[facility] Start: 07-14-2024 End: 07-14-2024 ambulatory Fredi Lópezyin Facility:[facility] Start: 07-10-2024 End: 07-10-2024 Emergency department patient visit Pieter Yoon Facility:[facility] Start: 07-10-2024 End: 07-10-2024 Emergency department patient visit Carson Montenegro Facility:[facility] Start: 06-30-2024 End: 06-30-2024 Emergency department patient visit Prerna Lemus Facility:[facility] Start: 06-29-2024 End: 06-29-2024 Emergency department patient visit Dewey Kam Facility:[facility] Start: 06-12-2024 End: 06-12-2024 ambulatory Fredi Garnermarge Facility:[facility] Start: 05-12-2024 End: 05-12-2024 ambulatory Fredi Garnermarge Facility:[facility] Start: 04-07-2024 End: 04-07-2024 ambulatory Fredi Lópezyin Facility:[facility] Start: 03-28-2024 End: 03-28-2024 Emergency department patient visit COCOANT FRANCIS Facility:[facility] Start: 03-27-2024 End: 03-27-2024 Emergency department patient visit Dada Chung Facility:[facility] Start: 03-03-2024 End: 03-03-2024 ambulatory Fredi Angeles Facility:[facility] Start: 02-15-2024 End: 02-15-2024 Emergency department patient visit Deweyrandall Picketto Facility:[facility] Start: 02-11-2024 End: 02-11-2024 Emergency department patient visit Con Landeros Facility:[facility] Start: 02-07-2024 End: 02-07-2024 Emergency department patient visit Patience Lane Facility:[facility] Start: 01-28-2024 End: 01-28-2024 ambulatory Fredi [facility] Start: 01-26-2024 End: 01-26-2024 [facility] Start: 01-16-2024 End: 01-16-2024 Emergency department patient visit PRERNA LEMUS [facility]-Emergency Department Work Phone: Start: 12-25-2023 End: 12-25-2023 ambulatory PRERNA [facility] Work Phone: Start: 12-25-2023 End: 12-25-2023 Patient encounter procedure PRERNA LEMUS [facility] Work Phone: Start: 12-25-2023 End: 12-25-2023 ambulatory [facility] Facility:[facility] Start: 12-17-2023 End: 12-17-2023 ambulatory [facility] Work Phone: Start: 12-17-2023 End: 12-17-2023 Patient encounter procedure PRERNA LEMUS [facility] Work Phone: Start: 11-01-2023 End: 11-01-2023 ambulatory No Primary Care Physician [facility] Work Phone: Start: 11-01-2023 End: 11-01-2023 Patient encounter procedure No Primary Care Physician [facility]-Pulmonary Services/Neurology Work Phone: Start: 10-19-2023 End: 10-19-2023 ambulatory No Primary Care Physician [facility] Work Phone: Start: 10-19-2023 End: 10-19-2023 Patient encounter procedure No Primary Care Physician [facility] Work Phone: Start: 09-06-2023 End: 09-06-2023 Emergency department patient visit No Primary Care Physician [facility]-Emergency Department Work Phone: Start: 08-22-2023 End: 08-22-2023 Patient encounter procedure No [facility] Phys[facility] Work Phone: Start: 07-04-2023 End: 07-04-2023 ambulatory SOBEIDA JOHNS Facility:B Start: 07-04-2023 End: 07-04-[address] SOBEIDA JOHNS MD [facility] Start: 06-18-2023 End: 06-18-2023 Emergency department patient visit No Primary Care Physician [facility]-Emergency Department Work Phone: Start: 04-07-2023 End: 04-08-2023 Evaluation and management of inpatient Ashlee Cardenas [facility] [id number] Start: 04-06-2023 End: 04-07-2023 Evaluation and management of inpatient BILLIE BARRETO MD [facility] Facility:A Start: 04-06-2023 End: 04-06-2023 Evaluation and management of inpatient BILLIE BARRETO MD [facility] Start: 04-06-2023 End: 04-06-2023 Emergency department patient visit PRERNA LEMUS DO Facility:B Start: 04-06-2023 End: 04-06-2023 Emergency department patient visit JAMEL MARCUS MD [facility] Start: 03-27-2023 End: 03-27-2023 Emergency department patient visit JOSEPH LLAMAS MD Facility:B Start: 03-27-2023 End: 03-27-2023 Emergency department patient visit JOSEPH LLAMAS MD [facility] Start: 03-09-2023 End: 03-09-2023 Emergency department patient visit PRERNA DESIREE LEMUS DO Facility:B Start: 03-09-2023 End: 03-09-2023 Emergency department patient visit DR CLARISSE QUEEN MD [facility] Start: 03-08-2023 End: 03-08-2023 Emergency department patient visit [facility]-Emergency Department Start: 01-15-2023 End: 01-16-2023 ambulatory CHARLENE RIVAS APRN-[employer] Facility:B Start: 01-01-2023 End: 01-01-2023 ambulatory PRERNA LEMUS Facility:[facility] Start: 01-01-2023 End: 01-01-2023 Patient encounter procedure Jaguar Kearney MD Work Phone: [facility] Comment on above: Nausea and vomiting, unspecified vomiting type (Primary Dx) Start: 01-01-2023 End: 01-01-2023 Emergency department patient visit [facility]-Emergency Department Start: 12-27-2022 End: 12-28-2022 Emergency department patient visit [facility]-Emergency Department Start: 12-06-2022 End: 12-06-2022 Emergency department patient visit [facility]-Emergency Department Start: 11-17-2022 End: 11-17-2022 Emergency department patient visit [facility]-Emergency Department Start: 11-11-2022 End: 11-11-2022 Emergency department patient visit [facility]-Emergency Department Start: 06-27-2022 End: 06-27-2022 Emergency department patient visit JOSEPH LLAMAS MD [facility] Start: 06-25-2022 End: 06-25-2022 Emergency department patient visit HAN SAVAGE DO [facility] Start: 06-17-2022 End: 06-17-2022 Emergency department patient visit DR MIGUEL ÁNGEL BARROSO MD [facility] Start: 12-12-2018 End: 12-12-2018 Emergency department patient visit DESIREE GARG Facility:[id number] Start: 09-25-2018 End: 09-27-2018 Patient encounter procedure SHEN HODGES Facility:[id number] Start: 09-09-2018 End: 09-09-2018 Emergency department patient visit SORAYA CULLEN Facility:[id number] Start: 08-24-2018 End: 09-24-2018 Patient encounter procedure SHEN HODGES Facility:[id number] Start: 07-25-2018 Patient encounter procedure SHEN HODGES Facility:[id number] Start: 06-24-2018 Patient encounter procedure SHEN HODGES Facility:[id number] Start: 06-14-2018 Patient encounter procedure SHEN HODGES Facility:[id number] Start: 05-21-2018 Patient encounter procedure FERNANDEZ BRICEA Facility:[id number] Start: 04-23-2018 Patient encounter FERNANDEZ BRICEA Facil ity:[id number] Start: 04-19-2018 End: 04-19-2018 Emergency department patient visit MER GUARDADO Facility:[id number] Start: 04-15-2018 End: 04-17-2018 Evaluation and management of inpatient Jacobo DESIREE LEMUS Facility:[id number] Start: 03-12-2018 End: 03-13-2018 Patient encounter Jacobo DESIREE LEMUS Facility:[id number] Start: 03-08-2018 End: 03-08-2018 Emergency department patient visit MER GUARDADO Facility:[id number] Start: 01-09-2018 Ambulatory PRERNA LEMUS Facility :[facility] Start: 10-27-2017 End: 10-27-2017 Emergency department patient visit CATHERINE DEO Facility:[id number] Procedures Date Procedure Procedure Detail Performing Clinician Start: 12-04-2024 CT of abdomen and pelvis without contrast Dr. Prerna Lemus DO Work Phone: Start: 11-13-[address] Prerna fuentes DO Work Phone: Start: 11-10-2024 Computed tomography of abdomen and pelvis with intravenous contrast Dr. Prerna Lemus DO Work Phone: Start: 11-10-2024 Measurement of occult blood in gastric fluid specimen Dr. Prerna Lemus DO Work Phone: Start: 10-23-2024 Plain X-ray abdomen Dr. Prerna Lemus DO Work Phone: Start: 10-17-2024 Measurement of occult blood in stool specimen using immunoassay Dr. Prerna Lemus DO Work Phone: Start: 10-17-2024 Computed tomography of abdomen and pelvis with contrast Dr. Prerna Lemus DO Work Phone: Start: 10-03-2024 Plain chest X-ray Dr. Prerna Lemus DO Work Phone: Start: 09-02-2024 Computed tomography of abdomen and pelvis with intravenous contrast Dr. Prerna Lemus DO Work Phone: Start: 09-02-[address] Prerna Lemus DO Work Phone: Start: 01-26-2024 Computed tomography of abdomen and pelvis with intravenous contrast PRERNA LEMUS Start: 10-19-2023 MRI of brain with contrast No Primary Ca re Physician Start: 10-19-2023 X-ray of eye for foreign body No Primary Care Physician Start: 09-06-2023 Computed tomography of abdomen and pelvis with intravenous contrast No Primary Care Physician Start: 09-06-2023 SARS-CoV-2 & FLU Antigen (Rapid) No Prim yolis Care Physician Start: 09-06-2023 Viral antigen assay No Primary Care Physician Start: 07-04-[address] SOBEIDA JOHNS MD Start: 07-04-2023 Esophagogastroduodenoscopic electrohydraulic lithotripsy of bezoar in stomach DR SOBEIDA JOHNS MD Start: 06-18-2023 Computed tomography of abdomen and pelvis with intravenous contrast No Primary Care Physician Start: 04-07-[address] Ashlee Cardenas Comment on above: Performed By: #### T+S #### [facility] [id number] [address] [address] Start: 04-07-2023 End: 04-07-2023 EKG impression Luca Mossus Start: 12-06-2022 Computed tomography of abdomen and pelvis with intravenous contrast Arthroscopy of knee DR VAN JOHNS MD Comment on above: right Marti's esophagus (disorder) HAN SAVAGE DO Cholecystectomy HAN SAL DO Colonoscopy DR SOBEIDA CUEVA MD Coronary artery sten t (physical object) DR SOBEIDA JOHNS MD Comment on above: 7 stents Esophageal hiatus hernia repair DR SOBEIDA JOHNS MD Esophagogastroduodenoscopy D R SOBEIDA JOHNS MD H/O: surgery History of metal removed from eye No Primary Care Physician Hernia of abdominal cavity (disorder) DR CLARISSE QUEEN MD Wrist region structu re (body structure) DR CLARISSE QUEEN MD Comment on above: katelyn left wrist Plan of Treatment Date Care Activity Detail Author Start: 12-05-2024 [facility] Start: 11-13-2024 Patient discharge [facility] Start: 11-12-2024 Referral to gastroenterology service [facility] Start: 11-12-2024 Chart related administrative procedure [facility] Start: 11-11-2024 Application of intermittent pneumatic compression device [facility] Start: 11-10-2024 Following clinical pathway protocol [facility] Start: 11-10-2024 Ambulation without limitation [facility] Start: 11-10-2024 Assessment of risk of venous thromboembolism [facility] Start: 11-10-2024 Insertion of catheter into peripheral vein [facility] Start: 11-10-2024 Providing care according to standard [facility] Start: 11-10-2024 [facility] Start: 11-10-2024 Admission procedure [facility] Start: 11-10-2024 Patient referral to dietitian [facility] Start: 10-18-2024 Patient discharge [facility] Start: 10-17-2024 Following clinical pathway protocol [facility] Start: 10-17-2024 Application of intermittent pneumatic compression device [facility] Start: 10-17-2024 Assessment of risk of venous thromboembolism [facility] Start: 10-17-2024 Inhalation therapy procedure [facility] Start: 10-17-2024 Insertion of catheter into peripheral vein [facility] Start: 10-17-2024 Introduction of urinary catheter [facility] Start: 10-17-2024 Measuring intake and output [facility] Start: 10-17-2024 Oxygen therapy [facility] Start: 10-17-2024 Providing care according to standard [facility] Start: 10-17-2024 Provision of activity privileges [facility] Start: 10-17-2024 Referral to service [facility] Start: 10-17-2024 Tobacco use cessation education [facility] Start: 10-17-2024 [facility] Start: 10-17-2024 Admission procedure [facility] Start: 10-16-2024 [facility] Start: 10-03-2024 [facility] Start: 10-03-2024 [facility] Start: 09-03-2024 Patient discharge [facility] Start: 09-03-2024 Admission procedure [facility] Start: 09-02-2024 End: 09-02-2024 Following clinical pathway protocol [facility] Start: 09-02-2024 Assessment of risk of venous thromboembolism [facility] Start: 09-02-2024 Incentive spirometry [facility] Start: 09-02-2024 Insertion of catheter into peripheral vein [facility] Start: 09-02-2024 Introduction of urinary catheter [facility] Start: 09-02-2024 Oxygen therapy [facility] Start: 09-02-2024 Providing care according to standard [facility] Start: 09-02-2024 Provision of activity privileges [facility] Start: 09-02-2024 Tobacco use cessation education [facility] Start: 09-02-2024 [facility] Start: 09-02-2024 Measuring intake and output [facility] Start: 09-02-2024 Admission procedure [facility] Start: 09-02-2024 Patient referral to dietitian [facility] Start: 01-26-2024 [facility] Start: 01-16-2024 [facility] Start: 09-06-2023 [facility] Start: 08-22-2023 Patient referral [facility] Work Phone: Start: 05-25-2023 Influenza vaccination INFLUENZA (Season Ended) [facility] Start: 04-07-2023 End: 04-07-2024 oxyCODONE Immediate Release 5 mg Oral Tablet Every 4 Hours ; Tablet (OXYIR, ROXICODONE)DOSE = 2.5 mg Oral Every 4 Hours, PRN Pain - Mod (4-6) Start: 07-Apr-2023 End: 06-Apr-2024 Ordered: 07-Apr-2023 Truong Szymanski [facility] Start: 04-07-2023 End: 04-07-2024 Ibuprofen 600 mg Oral Tablet Every 6 Hours PRN ; Tablet (ADVIL, MOTRIN)DOSE = 600 mg Oral Every 8 Hours Start: 07-Apr-2023 End: 06-Apr-2024 Ordered: 07-Apr-2023 Truong Szymanski [facility] Start: 04-07-2023 End: 04-07-2024 Ondansetron Injectable 4 mg IntraVenous Push Every 6 Hours PRN ; (ZOFRAN)DOSE = 4 mg IntraVenous Push Every 6 Hours, PRN Nausea and/or Vomiting Start: 07-Apr-2023 End: 06-Apr-2024 Ordered: 07-Apr-2023 Luca Torres [facility] Start: 12-27-2022 [facility] Start: 11-13-2022 DIABETES SCREEN DIABETES SCREEN [facility] Start: 09-24-2022 DEPRESSION ASSESSMENT DEPRESSION ASSESSMENT [facility] Start: 12-14-2021 COVID-19 VACCINE (3 - Booster for Pfizer series) COVID-19 VACCINE (3 - Booster for Pfizer series) [facility] Start: 05-10-2016 PROSTATE CANCER SCREENING DISCUSSION PROSTATE CANCER SCREENING DISCUSSION [facility] Start: 2008 SHINGRIX VACCINE (1 of 2) SHINGRIX VACCINE (1 of 2) [facility] Start: 2003 COLOGUARD (FIT-DNA) COLOGUARD (FIT-DNA) [facility] Start: 2003 Colonoscopy COLONOSCOPY [facility] Start: 2003 COLORECTAL CANCER SCREENING COLORECTAL CANCER SCREENING [facility] Start: [address] COLONOGRAPHY [facility] Start: 2003 FECAL OCCULT BLOOD FECAL OCCULT BLOOD [facility] Start: 2003 SIGMOIDOSCOPY SIGMOIDOSCOPY [facility] Start: 1993 LIPID SCREEN LIPID SCREEN [facility] Start: 1977 Urine microalbumin profile DTAP,TDAP,TD (1 - Tdap) [facility] Start: 1976 ANNUAL PCP TEAM CHRONIC DISEASE VISIT ANNUAL PCP TEAM CHRONIC DISEASE VISIT [facility] Start: 1976 BP CONTROLLED (<130/80) BP CONTROLLED (<130/80) [facility] Start: 1976 Hepatitis B surface antibody level LDL CHOLESTEROL [facility] Start: 1976 HEPATITIS C SCREENING HEPATITIS C SCREENING [facility] Start: 1976 HIV SCREENING HIV SCREENING [facility] Complete blood count [facility] Electroencephalogram [facility] Folate [Mass/volume] in Serum or Plasma [facility] Intrinsic factor blo cking Ab [Units/volume] in Serum [facility] MR Brain WO and W contrast IV [facility] Patient Education [facility] Work Phone: Patient referral [facility] Work Phone: Thiamine measurement [facility] Thyroid stimulating hormone measurement [facility] Vitamin B12 measurement [facility] XR Orbit - bilateral Views for foreign body [facility] Immunizations Immunization Date Immunization Notes Care Provider Ben rojas 09-03-2024 influenza, high dose seasonal, preservative-free Dr. Prerna Lemus DO Work Phone: [facility] 03-31-2024 tetanus toxoid, redu chato diphtheria toxoid, and acellular pertussis vaccine, adsorbed Dr. Prerna Lemus DO Work Phone: [facility] 03-31-[address] Prerna Lemus DO Work Phone: [facility] 01-22-2024 Pneumococcal Vaccine PCV20 (Prevnar 20) Dr. Prerna Lemus DO Work Phone: [facility] 01-22-[address] Prerna Lemus DO Work Phone: [facility] 10-19-2021 Covid (Pfizer) Dr. Prerna fuentes DO Work Phone: [facility] 10-19-2021 influenza virus vacc ine, unspecified formulation DR CLARISSE QUEEN MD [facility] 10-19-2021 SARS-CoV-2 mRNA (aasvyyrsbdl-vcpq-tvbybi e) vaccine DR CLARISSE QUEEN MD [facility] 10-19-2021 Seasonal, quadrivale nt, recombinant, injectable influenza vaccine, preservative free Dr. Prerna Lemus DO Work Phone: [facility] 09-28-2021 SARS-CoV-2 mRNA (tozinameran) vaccine DR CLARISSE QUEEN MD [facility] 06-11-2019 influenza virus vacc ine, unspecified formulation DR CLARISSE QUEEN MD [facility] 06-11-2019 influenza, injectabl e, quadrivalent, preservative free Dr. Prerna Lemus DO Work Phone: [facility] 07-05-2018 influenza virus vacc ine, unspecified formulation DR CLARISSE QUEEN MD [facility] 07-05-2018 influenza, injectabl e, quadrivalent, preservative free Dr. Prerna Lemus DO Work Phone: [facility] 06-06-2017 influenza virus vacc ine, unspecified formulation DR CLARISSE QUEEN MD [facility] 06-06-2017 influenza, seasonal, injectable, preservative free Dr. Prerna Lemus DO Work Phone: [facility] 11-27-2015 influenza virus vacc ine, unspecified formulation DR CLARISSE QUEEN MD [facility] 11-27-2015 influenza, injectabl e, quadrivalent, preservative free Dr. Prerna Lemus DO Work Phone: [facility] 11-27-2015 pneumococcal polysaccharide vaccine, [address] CLARISSE QUEEN MD [facility] 06-28-2015 influenza virus vacc ine, unspecified formulation DR CLARISSE QUEEN MD [facility] 06-28-2015 influenza, injectabl e, quadrivalent, preservative free Dr. Prerna Lemus DO Work Phone: [facility] Payers Date Payer Category Payer Self-pay 2023 Private Health Insurance [id number] 2023 Medicare [id number] 2022 Unknown [id number] 2021 Medicare [id number] 2008 Medicare 2008 Unknown [id number] 1958 Unknown [id number] 2.16.8 40.1.882331.3.579.2.159 1958 Unknown [id number] 2.16.8 40.1.819647.3.579.2.159 1958 Unknown [id number] 2.16.8 40.1.013790.3.579.2.159 1958 Unknown [id number] 2.16.8 40.1.075721.3.579.2.159 1958 Unknown [id number] 2.16.8 40.1.204194.3.579.2.159 1958 Unknown [id number] 2.16.8 40.1.559678.3.579.2.159 1958 Unknown [id number] 2.16.8 40.1.449046.3.579.2.159 1958 Unknown [id number] 2.16. 840.1.145934.3.579.2.356 1958 Unknown [id number] 2.16.8 40.1.713580.3.579.2.627 1958 Unknown [id number] 2.16.8 40.1.329634.3.579.2.627 1958 Unknown [id number] 2.16.8 40.1.337260.3.579.2.627 1958 Unknown [id number] 2.16.8 40.1.871006.3.579.2.627 1958 Unknown [id number] 2.16.8 40.1.793456.3.579.2.627 1958 Unknown [id number] 2.16.8 40.1.916101.3.579.2.627 Unknown [id number] Unknown [id number] 2.16.8 40.1.300668.3.579.2.462 Unknown [id number] 2.16.8 40.1.741650.3.579.2.462 Unknown [id number] 2.16.8 40.1.471491.3.579.2.462 Unknown [id number] 2.16.8 40.1.727816.3.579.2.462 Unknown [id number] 2.16.8 40.1.336337.3.579.2.462 Unknown [id number] 2.16.8 40.1.938940.3.579.2.462 Unknown [id number] 2.16.8 40.1.503458.3.579.2.462 Unknown [id number] 2.16.8 40.1.111178.3.579.2.462 Unknown [id number] 2.16.8 40.1.925161.3.579.2.462 Unknown [id number] 2.16.8 40.1.310541.3.579.2.462 Unknown [id number] 2.16.8 40.1.209456.3.579.2.462 Unknown [id number] 2.16.8 40.1.273236.3.579.2.462 Unknown [id number] 2.16.8 40.1.774004.3.579.2.462 Unknown [id number] 2.16.8 40.1.314786.3.579.2.462 Unknown [id number] 2.16.8 40.1.955940.3.579.2.462 Unknown [id number] 2.16.8 40.1.509755.3.579.2.462 Unknown [id number] 2.16.8 40.1.949339.3.579.2.462 Unknown [id number] 2.16.8 40.1.870571.3.579.2.462 Unknown [id number] 2.16.8 40.1.906674.3.579.2.462 Unknown [id number] 2.16.8 40.1.118219.3.579.2.462 Unknown [id number] 2.16.8 40.1.013677.3.579.2.462 Unknown [id number] 2.16.8 40.1.592568.3.579.2.462 Unknown [id number] 2.16.8 40.1.773285.3.579.2.462 Unknown [id number] 2.16.8 40.1.357774.3.579.2.462 Unknown [id number] 2.16.8 40.1.994580.3.579.2.462 Unknown [id number] 2.16.8 40.1.979318.3.579.2.462 Unknown [id number] 2.16.8 40.1.185850.3.579.2.462 Unknown [id number] 2.16.8 40.1.665407.3.579.2.462 Unknown [id number] 2.16.8 40.1.562724.3.579.2.462 Unknown [id number] 2.16.8 40.1.708412.3.579.2.462 Unknown [id number] 2.16.8 40.1.675499.3.579.2.462 Unknown [id number] 2.16.8 40.1.945382.3.579.2.462 Unknown [id number] 2.16.8 40.1.461304.3.579.2.462 Unknown [id number] 2.16.8 40.1.261568.3.579.2.462 Unknown [id number] 2.16.8 40.1.944731.3.579.2.462 Unknown [id number] 2.16.8 40.1.960009.3.579.2.462 Unknown [id number] 2.16.8 40.1.612949.3.579.2.462 Unknown [id number] 2.16.8 40.1.434440.3.579.2.462 Unknown [id number] 2.16.8 40.1.673586.3.579.2.462 Unknown [id number] 2.16.8 40.1.789287.3.579.2.462 Unknown [id number] 2.16.8 40.1.444701.3.579.2.462 Social History Date Type Detail Facility Tobacco smoking status [facility] Start: 1960 Sex Assigned At Male A [facility] Start: 06-25-2022 Tobacco smoking status Heavy t obacco smoker (finding) [facility] Start: 11-17-2022 End: 09-06-2023 Tobacco smoking status COIS Unknown if ever smoked [facility] Start: 11-12-2019 [facility] Work Phone: End: 07-16-2001 History of tobacco use Current smoker [facility] Work Phone: End: 07-16-2001 History of tobacco use Cigarette Smoker [facility] Work Phone: History of tobacco use Cigar Smoker [facility] Work Phone: Start: 11-12-2019 Cigarettes smoked current (pack per day) - Reported [address] [facility] Start: 11-12-2019 Tobacco use and exposure Smokeless tobacco non-user [facility] Work Phone: Start: 11-13-2019 Alcohol intake Current non-dr timing inspector of alcohol (finding) [facility] Start: 11-13-2019 History SDOH Financial [address] [facility] Start: 11-13-2019 History SDOH Food Worry [address] [facility] Start: 11-13-2019 History SDOH Transpo rt Med [address] [facility] Start: 1960 Sex Assigned At Not on file [facility] Start: 01-15-2023 End: 12-04-2024 Tobacco smoking status Smokes tobacco daily (finding) [facility] Start: 12-05-2024 Sex Male (finding) [facility] Goals Date Patient Goal Desired Activity /State Functional Status Date Assessment Result Facility 11-13-2024 Functional status Ambulates;Up ad evangelist [facility] Work Phone: 10-18-2024 Functional status Bathroom Privilege [facility] Work Phone: 09-03-2024 Functional status Ambulates [facility] Work Phone: 07-04-2023 Functional Status Repositions self [facility] 07-04-2023 Functional Status Maintained, Less than 8 hours [facility] 04-06-2023 Functional Status Awake, Repositions self [facility] 04-06-2023 Functional Status Activity Parul tance Independent [facility] 04-06-2023 Functional Status Repositions se lf, Sleeping quietly with easy respirations [facility] 04-06-2023 Functional Status [facility] 04-06-2023 Functional Status [facility] 03-27-2023 Functional Status Up ad evangelist [facility] 03-27-2023 Functional Status Standard Safet y ID band on, Allergy Band on, Call device within reach, Bed in low position, Visitor at bedside [facility] 03-09-2023 Functional Status Independent [facility] 03-09-2023 Functional Status Ambulating in turner, Ambulating in room, Awake, Bathroom privileges [facility] 06-27-2022 Functional Status Independent [facility] 06-27-2022 Functional Status ID band on, Call device within reach, Bed in low position, Wheels locked, Visitor at bedside [facility] 06-25-2022 Functional Status Independent Parker [facility] 06-25-2022 Functional Status Standard Safet y ID band on, Allergy Band on, Call device within reach, Bed in low position, Wheels locked, Upper/Half-Length side-rails up, Phone within reach, personal items within reach, Assistive devices within reach, Toileting device within reach, Bedside Cart Locked, Visitor at bedside, Safety level maintained [facility] 06-17-2022 Functional Status ID band on, Call device within reach, Bed in low position, Wheels locked, Upper/Half-Length side-rails up [facility] Functional observable [facility] Mental Status Date Assessment Result Facility 11-13-2024 Cognitive function Voice/Name [facility] Work Phone: 10-18-2024 Cognitive function Voice/Name [facility] Work Phone: 10-03-2024 Cognitive function Awake;Alert;Appropriat e [facility] Work Phone: 07-04-2023 Mental Status Oriented x 4 [facility] 04-07-2023 Cognitive functi ons [id number] [facility] 04-06-2023 Mental Status Oriented x 4 [facility] 04-06-2023 Mental Status Orientation Oriented x 4 [facility] 04-06-2023 [facility]06[facility]23 Mental Status [facility] 03-27-2023 Mental Status Orientation Oriented x 4 [facility] 03-27-2023 [facility] Status [facility] 03-09-2023 Mental Status Orientation Oriented x 4 [facility] 03-09-2023 Mental Status [facility] 06-27-2022 Mental Status Orientation Oriented x 4 [facility] 06-27-2022 Mental Status [facility] 06-25-2022 Mental Status Orientation Oriented x 4 [facility] 06-25-2022 Mental Status [facility] 06-17-2022 Mental Status Oriented x 4 [facility] Clinical Notes 11-12-2019 to 12-04-2024 Note Date & Type Note Facility 12-04-2024 Radiology Diagnostic study note [facility] 11-21-2024 Hospital Discharg e instructions Additional Instructions Urine creatinine 1.7 mL 0.8 last month. You are given 2 L of fluid. You are treated for your cyclic vomiting with improvement. Avoid marijuana. Use nausea medicine as needed. Use topical cream as needed. Follow-up with your doctor. Follow-up with cardiology for your transient SVT. [facility] Work Phone: 11-13-2024 Note [facility] 11-10-2024 Note [facility] 10-18-2024 Note [facility] 09-03-2024 Note [facility] 08-14-2024 Evaluation note Diagnosis Onset Date Resolution B12 nutritional deficiency acute August 14, 1:21pm Fatigue noneactive August 14, 2024 1:21pm Leukocytosis acute August 9:11pm Abdominal pain resolved August 242023 9:11pm Acidosis, lactic resolved September 02, 2024 9:11pm Intractable cyclical vomiting with nausea resolved September 022023 9:11pm B12 nutritional deficiency acute September 22, 2 024 1:22pm Fatigue noneactive September 22, 2024 1:22pm Abdominal pain resolved October 172024 5:23am Hematemesis resolved October 17, 2024 5:23am Upper gastrointestinal bleeding resolved October 17 5:23am Cyclic vomiting syndrome inactive October 17, 2024 5:23am Anemia acute October 20, 2024 1:14pm B12 nutritional deficiency acute October 20 1:14pm Mild cognitive impairment chronic October 20, 2024 1:14pm Abdominal pain inactive October 252024 9:05pm Acidosis, lactic resolved November 10, 2024 9:05pm Acute lactic acidosis resolved Oct 9:05pm STANLEY (acute kidney injury) resolved November 10, 2024 9:05pm Acute dehydration inactive 2024 9:05pm Acute generalized abdominal pain inactive November 10, 2 025 9:05pm Cyclic vomiting syndrome inactive November 10, 2024 9:05pm Shanna-Jaime tear inactive 2024 9:05pm Marijuana abuse inactive November 10, 2024 9:05pm [facility] Work Phone: 1(966) 641-926405-04-2024 Discharge summary Author Patience Lane [facility] January 26, 2024 4:50pm Note Date/Time January 26, 2024 12:53p [facility] Medical Records Department [address] [place] [address] Emergency Department Summary 01/26/24 MR#: [id number] Acct: [id number] Name: TRUONG ROSARIO Rep #:[id number] : 1960 63 From: Patience Lane MD PCP: Care Physician,No Primary Status :REG ER Location: ED HPI History of Present Illness Chief Complaint: Flank Pain Informant: patient Onset/Context/Timing Onset: Today Current Severity: Moderate Maximum Severity: Severe Narrative Narrative: Patient present secondary to right flank pain. He developed pain in the right CVA region this morning that wraps to his right side. He hands me an order fromhis doctor that states he has a known right adrenal mass and is requesting a CT scan. Patient also reports a history of kidney stones. He denies any obvious hematuria. He was able to urinate this morning without difficulty. [facility] Medical History (Updated 01/26/24 @ 16:[address] Patience [address] MD) Cyclic vomiting syndrome Heart attack Hiatal hernia History of kidney stones History of seizure Right adrenal mass Home Medications amlodipine 10 mg tablet 10 mg PO DAILY 11/11/22 [History Last Taken Unknown] aspirin 81 mg chewable tablet 81 mg PO DAILY 11/11/22 [History Last Taken Unknown] atorvastatin 40 mg tablet 40 mg PO DAILY 11/11/22 [History Last Taken Unknown] citalopram 40 mg tablet 40 mg PO DAILY 11/11/22 [History Last Taken Unknown] fenofibrate 120 mg tablet 145 mg PO DAILY 11/11/22 [History Last Taken Unknown] lisinopril 20 mg tablet 20 mg PO DAILY 11/11/22 [History Last Taken Unknown] meloxicam 15 mg tablet 15 mg PO DAILY PRN UNKNOWN 11/11/22 [History Last Taken Unknown] sucralfate 1 gram tablet 1 g PO 4X/DAY 11/11/22 [History Last Taken Unknown] trazodone 50 mg tablet 75 mg PO DAILY 11/11/22 [History Last Taken Unknown] promethazine 25 mg tablet 25 mg PO Q6H PRN nausea and vomiting 7 days #28 tabs 06/18/23 [Rx Last Taken Unknown] acetaminophen 500 mg tablet (Tylenol Extra Strength) 500 mg PO Q6H PRN 08/22/23 [History Last Taken Unknown] alprazolam 1 mg tablet See Rx Instructions .Route .COMPLEX #1 TAB 08/22/23 [Rx Last Taken Unknown] clopidogrel 75 mg tablet (Plavix) 75 mg PO DAILY 08/22/23 [History Last Taken Unknown] lansoprazole 15 mg capsule,delayed release 15 mg PO DAILY 08/22/23 [History Last Taken Unknown] metoprolol succinate 25 mg tablet,extended release 24 hr 25 mg PO BID 08/22/23 [History Last Taken Unknown] nitroglycerin 0.4 mg sublingual tablet 0.4 mg sublingual Q5M PRN 08/22/23 [History Last Taken Unknown] dicyclomine 20 mg tablet 20 mg PO TID PRN abdominal pain #14 tabs 01/16/24 [Rx Last Taken Unknown] promethazine 25 mg tablet 25 mg PO Q6H PRN nausea and vomiting #20 tabs 01/16/24[Rx Last Taken Unknown] dicyclomine 20 mg tablet 20 mg PO TID PRN abdominal pain #14 tabs 01/26/24 [Rx Last Taken Unknown] promethazine 25 mg tablet 25 mg PO Q6H PRN nausea and vomiting #14 tabs 01/26/24[Rx Last Taken Unknown] Allergy/AdvReac Type Severity Reaction Status Date / Time Penicillins [PCN] Allergy Severe Rash Verified 01/26/24 12:38 sertraline [From Zoloft] Allergy Severe Other Verified 01/26/24 12:38 nitrofurantoin AdvReac Severe Rash Verified 01/26/24 12:38 [From Macrobid] Surgical History History of cholecystectomy History of repair of hiatal hernia Social History Smoking Status: Current every day smoker tobacco type: cigarettes details: Denies alcohol use and history of pancreatitis substance use type: does not use ROS ROS ED Constitutional Constitutional ED: Denies chills or fever(s) Eyes Eyes: Denies discharge from eye(s) ENT ENT ED: Denies discharge from eye(s), rhinorrhea or sore throat Cardiovascular Cardiovascular: Denies chest pain or palpitations Respiratory/Chest Respiratory/Chest: Denies cough or dyspnea Gastrointestinal Gastrointestinal: Reports abdominal pain, nausea and vomiting; Denies diarrhea Genitourinary Genitourinary ED: Denies difficulty urinating or dysuria Musculoskeletal Musculoskeletal: Reports back pain; Denies extremity pain Integumentary Denies Abrasions or rash Neurologic Neurologic: Denies headache(s) or weakness Allergic/Immunologic Allergic/Immunologic ED: Denies lip swelling or urticaria EXAM Physical Exam Const Vital Signs: 01/26/24 12:38 01/26/24 14:37 01/26/24 16:00 Temperature 97.0 F L Temperature Source Temporal Pulse Rate 72 84 84 Respiratory Rate 18 20 H 16 Blood Pressure 169/124 H 143/85 H 150/87 H Blood Pressure Mean 139 104 108 Pulse Ox 100 98 98 Oxygen Delivery Method Room Air Room Air Room Air Positive well nourished and well developed General Appearance ED: well developed HEENT Reports moist mucous membranes Eyes EOMs intact bilaterally Chest Wall inspection of chest normal and palpation of chest normal Resp normal respiratory effort and clear to auscultation bilaterally Cardio regular rate and regular rhythm GI non-tender Palpation: soft Back/Spine General Back: CVA tenderness right Extremity normal to inspection Neuro oriented x3 and no sensory deficits noted Motor Exam: strength 5/5 throughout Psych mental status grossly normal Skin no rashes or lesions noted MDM MDM MDM Narrative Medical decision making narrative: IV line established. Patient given Dilaudid, Reglan, and Benadryl. IV fluids initiated. Labwork obtained to evaluate for leukocytosis, anemia, and electrolyte derangement. Urinalysis obtained to evaluate for infection/hematuria. CT abdomen pelvis with IV contrast will be obtained given his right flank pain with known right adrenal mass. History & Record Review Discussion w/independent historian: Patient Lab Data Attestation: I reviewed the patient's lab results. Labs: Laboratory Results - last 24 hr 01/26/24 01/26/24 01/26/24 13:05 15:30 15:55 WBC 11.0 RBC 5.17 Hgb 14.6 Hct 45.0 MCV 87.0 MCH 28.2 MCHC 32.4 RDW Std Deviation 52.3 H RDW Coeff of Florencio 16.3 H Plt Count 282 MPV 9.6 Immature Gran % (Auto) 0.600 Neut % (Auto) 77.4 H Lymph % (Auto) 12.4 L [place] % (Auto) 5.9 Eos % (Auto) 3.2 Baso % (Auto) 0.5 Absolute Neuts (auto) 8.5 H Absolute Lymphs (auto) 1.37 Nucleated RBC % 0 Sodium 132 L Potassium 4.1 Chloride 103 Carbon Dioxide 23.0 Anion Gap 6 BUN 12 Creatinine 1.06 Estim Creat Clear Calc 71.74 Est GFR (MDRD) Af Amer 90 Est GFR (MDRD) Non-Af 74 BUN/Creatinine Ratio 11.3 Glucose 95 Calcium 9.5 Total Bilirubin 0.40 Direct Bilirubin 0.15 AST 21 ALT 15 L Alkaline Phosphatase 53 Total Protein 7.3 Albumin 3.7 Globulin 3.6 Urine Color Cancelled Yellow Urine Clarity Cancelled Clear Urine pH Cancelled 7.0 Ur Specific Victor Cancelled 1.010 U Specif Grav (Refrac) Cancelled Urine Protein Cancelled 15 H Urine Glucose (UA) Cancelled Normal Urine Ketones Cancelled Negative Urine Occult Blood Cancelled 25 H Urine Nitrite Cancelled Negative Urine Bilirubin Cancelled Negative Urine Urobilinogen Cancelled Normal Ur Leukocyte Esterase Cancelled 25 H Urine RBC Cancelled 0-5 SEEN Urine WBC Cancelled 0-5 SEEN Ur Squamous Epith Cells Cancelled 0 SEEN Ur Transition Epith Cell Cancelled Ur Renal Epithelial Cell Cancelled Calcium Oxalate Crystal Cancelled Uric Acid Crystals Cancelled Triple Phos Crystals Cancelled Other Crystals Cancelled Amorphous Sediment Cancelled Urine Bacteria Cancelled 0 SEEN Hyaline Casts Cancelled Fine Granular Casts Cancelled Coarse Granular Casts Cancelled Waxy Casts Cancelled RBC Casts Cancelled WBC Casts Cancelled Urine Mucus Cancelled 0 SEEN Urine Trichomonas Cancelled Urine Yeast Cancelled Radiography Diagnostic Testing: Clinical Impression(s) from Imaging Studies Abdomen/Pelvis CT 01/26/24 12:48 IMPRESSION: No significant interval change in 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 Stable small cysts and complex lesions in the right kidney. Multiple left renal cysts, similar to prior. Moderate hiatal hernia with chronic gastric wall thickening. Colonic diverticulosis without acute diverticulitis. Unremarkable appendix. Cholecystectomy with chronic biliary ductal dilatation. Hepatic steatosis. Electronically Signed: Kendy Carrera MD at 14:41 EDT Reading Location ID and State: [facility] / [place] Tel , Service support , Treatment and Re-Evaluation :: CBC was normal white count 11.0 the hemoglobin of 14.6. 77% neutrophils noted. Chemistry studies unremarkable with normal renal function. LFTs are normal. Urinalysis reveals no evidence of acute infection. No hematuria. CT scan of the abdomen and pelvis with IV contrast is obtained given his adrenal mass. There is no significant interval change when compared to August of last year. Moderate hiatal hernia is noted with chronic gastric wall thickening. Stable small cyst and complex lesions in the right kidney. Patient did have additional Phenergan and Dilaudid for continued pain and nauseaafter initial round of medications. Given continued symptoms he received a doseof Protonix, Haldol, Dilaudid. At this time symptoms are improved. Workup was reviewed with him and unremarkable. He is comfortable with discharge to home. I will write him Phenbandar and Viriyl to have at home as needed. Return instructions provided. Discharge Plan Triage Chief Complaint: Flank Pain ED Provider: Patience Lane Dx/Rx/DC Orders Clinical Impression: Flank pain, Vomiting Instructions: ED Flank Pain, Uncertain Cause, ED Vomiting (Adult) Prescriptions: New promethazine 25 mg tablet 25 mg PO Q6H PRN (Reason: nausea and vomiting) Qty: 14 0RF dicyclomine 20 mg tablet 20 mg PO TID PRN (Reason: abdominal pain) Qty: 14 0RF No Action clopidogrel [Plavix] 75 mg tablet 75 mg PO DAILY metoprolol succinate 25 mg tablet extended release 24 hr 25 mg PO BID lansoprazole 15 mg capsule,delayed release(DR/EC) 15 mg PO DAILY nitroglycerin 0.4 mg tablet, sublingual 0.4 mg sublingual Q5M PRN Rx Instructions: do not exceed 3 doses per episode acetaminophen [Tylenol Extra Strength] 500 mg tablet 500 mg PO Q6H PRN alprazolam 1 mg tablet See Rx Instructions .ROUTE .COMPLEX Qty: 1 0RF Rx Instructions: Take 1 tablet orally 30 minutes prior to MRI atorvastatin 40 mg Tablet 40 mg PO DAILY citalopram 40 mg Tablet 40 mg PO DAILY trazodone 50 mg Tablet 75 mg PO DAILY meloxicam 15 mg Tablet 15 mg PO DAILY PRN (Reason: UNKNOWN) sucralfate 1 gram Tablet 1 g PO 4X/DAY lisinopril 20 mg Tablet 20 mg PO DAILY amlodipine 10 mg Tablet 10 mg PO DAILY aspirin 81 mg Tablet,Chewable 81 mg PO DAILY fenofibrate 120 mg Tablet 145 mg PO DAILY promethazine 25 mg tablet 25 mg PO Q6H PRN (Reason: nausea and vomiting) 7 Days Qty: 28 0RF promethazine 25 mg tablet 25 mg PO Q6H PRN (Reason: nausea and vomiting) Qty: 20 0RF dicyclomine 20 mg tablet 20 mg PO TID PRN (Reason: abdominal pain) Qty: 14 0RF Primary Care Provider: Care Physician,No Primary Referrals: Friend,Aiden, DO [Med Staff - Active Staff] - As Needed Care Physician,No Primary [Primary Care Provider] - Disposition Disposition: Home, Self Care What to do if you have Problems For any increased pain, shortness of breath, bleeding, nausea or vomiting, chestpain, or any unexpected problems, contact your Primary Care Provider. Call [facility] ([phone]) or report to the closest Emergency Room. Call 911 if necessary. 01/26/24 1650 <Electronically signed by Patience Lane MD> Cosigner Signature (if applicable): CC: No Primary Care Physician ~ Signed [facility] Work Phone: 1(769) 334-632912-14-2023 Discharge summary Author Trenton Ruiz [facility] September 06, 2023 3:28pm Note Date/Time September 06, 2023 12:03pm [facility] Medical Records Department [address] [place] [address] Emergency Department Summary 09/06/23 MR#: [id number] Acct: [id number] Name: TRUONG ROSARIO Rep #:[id number] : [id number] 63 From: Trenton Ruiz DO PCP: Care Physician,No Primary Status :REG ER Location: ED HPI History of Present Illness Chief Complaint: Nausea/Vomiting Detail of Chief Complaint: Vomiting Informant: patient Narrative Narrative: Patient presents to the emergency department with complaint of vomiting this around 5 AM. Patient states that he has a history of cyclic vomiting. His lastepisode was a few months ago. He describes diffuse abdominal pain. He has vomited multiple times. He denies diarrhea. Denies fever. He denies chest pain or shortness of breath. Prior similar symptoms: Yes PFSH [facility] Medical History (Updated 09/06/23 @ 15:[address] Trenton Ruiz DO) Cyclic vomiting syndrome Heart attack Hiatal hernia Home Medications amlodipine 10 mg tablet 10 mg PO DAILY 11/11/22 [History Last Taken Unknown] aspirin 81 mg chewable tablet 81 mg PO DAILY 11/11/22 [History Last Taken Unknown] atorvastatin 40 mg tablet 40 mg PO DAILY 11/11/22 [History Last Taken Unknown] citalopram 40 mg tablet 40 mg PO DAILY 11/11/22 [History Last Taken Unknown] fenofibrate 120 mg tablet 145 mg PO DAILY 11/11/22 [History Last Taken Unknown] lisinopril 20 mg tablet 20 mg PO DAILY 11/11/22 [History Last Taken Unknown] meloxicam 15 mg tablet 15 mg PO DAILY PRN UNKNOWN 11/11/22 [History Last Taken Unknown] sucralfate 1 gram tablet 1 g PO 4X/DAY 11/11/22 [History Last Taken Unknown] trazodone 50 mg tablet 75 mg PO DAILY 11/11/22 [History Last Taken Unknown] promethazine 25 mg tablet 25 mg PO Q6H PRN nausea and vomiting 7 days #28 tabs 06/18/23 [Rx Last Taken Unknown] acetaminophen 500 mg tablet (Tylenol Extra Strength) 500 mg PO Q6H PRN 08/22/23 [History Last Taken Unknown] alprazolam 1 mg tablet See Rx Instructions .Route .COMPLEX #1 TAB 08/22/23 [Rx Last Taken Unknown] clopidogrel 75 mg tablet (Plavix) 75 mg PO DAILY 08/22/23 [History Last Taken Unknown] lansoprazole 15 mg capsule,delayed release 15 mg PO DAILY 08/22/23 [History Last Taken Unknown] metoprolol succinate 25 mg tablet,extended release 24 hr 25 mg PO BID 08/22/23 [History Last Taken Unknown] nitroglycerin 0.4 mg sublingual tablet 0.4 mg sublingual Q5M PRN 08/22/23 [History Last Taken Unknown] Allergy/AdvReac Type Severity Reaction Status Date / Time Penicillins [PCN] Allergy Severe Rash Verified 09/06/23 11:51 sertraline [From Zoloft] Allergy Severe Other Verified 09/06/23 11:51 nitrofurantoin AdvReac Severe Rash Verified 09/06/23 11:51 [From Macrobid] Surgical History History of cholecystectomy History of repair of hiatal hernia Social History Smoking Status: Former smoker details: Denies alcohol use and history of pancreatitis substance use type: does not use ROS ROS ED Review of Systems ROS Unobtainable: other Constitutional Constitutional ED: Reports lethargy; Denies chills, fever(s), sweats or weight loss Eyes Eyes: Denies blurry vision, change in vision or diplopia ENT ENT ED: Denies rhinorrhea or sore throat Cardiovascular Cardiovascular: Denies chest pain, orthopnea or racing heartbeat Respiratory/Chest Respiratory/Chest: Denies cough, dyspnea, dyspnea on exertion, orthopnea or sputum Gastrointestinal Gastrointestinal: Reports abdominal pain, nausea and vomiting; Denies diarrhea Genitourinary Genitourinary ED: Denies dysuria, hematuria or urinary frequency Musculoskeletal Musculoskeletal: Denies arthralgias, back pain, myalgias or neck pain Integumentary Denies abscess, Abrasions or rash Neurologic Neurologic: Denies headache(s) or weakness Psychiatric Psychiatric: Denies anxiety, depression or suicidal thoughts Endocrine Endocrinology: Denies polydipsia, polyphagia or polyuria Hematologic/Lymphatic Hematologic/Lymphatic: Denies easy bleeding, easy bruising or lymphadenopathy Allergic/Immunologic Allergic/Immunologic ED: Denies mouth swelling, tongue swelling or urticaria EXAM Physical Exam Const Vital Signs: 09/06/23 11:51 09/06/23 14:39 Temperature 98.2 F Temperature Source Temporal Pulse Rate 116 H 67 Respiratory Rate 18 20 H Blood Pressure 168/118 H Blood Pressure Mean 134 Pulse Ox 98 99 Oxygen Delivery Method Room Air Room Air Positive well nourished and well developed General Appearance ED: well developed and NAD HEENT Reports TM's clear and moist mucous membranes normocephalic and atraumatic; Negative for trauma or tenderness Tympanic Membrane ED: Yes TM's clear Eyes PERRL and EOMs intact bilaterally General Eye ED: Negative for pale conjunctiva or scleral icterus Neck no lymphadenopathy, supple and no JVD General: Negative for tenderness Chest Wall inspection of chest normal and palpation of chest normal Chest: Negative for tenderness Resp normal respiratory effort and clear to auscultation bilaterally Effort and Inspection: Negative for respiratory distress or pain with movement Auscultation: Negative for rhonchi, wheezes or diminished lung sounds Cardio regular rate, regular rhythm, S1 normal heart sound, S2 normal heart sound and no murmurs Peripheral Pulses: pulses 2+ throughout GI normal to inspection, nondistended, normoactive bowel sounds, soft to palpation,non-distended and no masses GI Narrative: Diffuse tenderness on exam. There is no rebound, rigidity, or perineal signs. No mass palpated. Back/Spine no CVA tenderness and no thoracic nor lumbar tenderness Extremity normal to inspection General Extremety ED: Negative for edema General Extremity: Negative for edema Neuro oriented x3, CN's II-XII intact bilaterally, no sensory deficits noted and gait normal Sensorium / Orientation: awake, alert, oriented to person, oriented to place andoriented to time Motor Exam: strength 5/5 throughout and strength abnormal Psych mental status grossly normal Skin no rashes or lesions noted and no wounds MDM MDM MDM Narrative Medical decision making narrative: Patient presents with vomiting and abdominal pain. History of cyclic vomiting. IV established. CBC with differential white count 14 with hemoglobin 12.8 and platelet count of 407. Chemistries unremarkable. CO2 was depressed at 19. BUN11 creatinine 1.2. Glucose elevated 164. Lactate elevated 4.9. LFTs unremarkable. Lipase was normal. Patient initially was medicated with Reglan as well as Benadryl and morphine for pain. Patient continued to complain of pain and was given another 4 mg of morphine and Zofran. CT scan of the M pelvisordered results of which are currently pending. Case patient will be turned over to evening physician awaiting CT results and final disposition. Lab Data Labs: Laboratory Results - last 24 hr 09/06/23 12:15 WBC 14.0 H RBC 4.55 L Hgb 12.8 L Hct 40.2 MCV 88.4 MCH 28.1 MCHC 31.8 L RDW Std Deviation 44.7 H RDW Coeff of [place]ore[place] 13.9 Plt Count 407 MPV 10.2 Immature Gran % (Auto) 0.600 Neut % (Auto) 90.5 H Lymph % (Auto) 5.7 L [place] % (Auto) 2.9 Eos % (Auto) 0.0 Baso % (Auto) 0.3 Absolute Neuts (auto) 12.7 H Absolute Lymphs (auto) 0.80 L Nucleated RBC % 0 Sodium 141 Potassium 3.3 L Chloride 110 H Carbon Dioxide 19.0 L Anion Gap 12 BUN 11 Creatinine 1.21 Estim Creat Clear Calc 62.84 Est GFR (MDRD) Af Amer 77 Est GFR (MDRD) Non-Af 64 BUN/Creatinine Ratio 9.1 L Glucose 164 H Lactic Acid 4.9 H* Calcium 9.9 Total Bilirubin 0.40 AST 21 ALT 23 Alkaline Phosphatase 63 Total Protein 8.1 Albumin 4.2 Globulin 3.9 Albumin/Globulin Ratio 1.1 Lipase 30 Radiography Diagnostic Testing: Clinical Impression(s) from Imaging Studies Abdomen/Pelvis CT 09/06/23 14:07 IMPRESSION: Stable examination. There has been no change. Electronically Signed: Ivan Norton MD at 15:25 EST , Discharge Plan Triage Chief Complaint: Nausea/Vomiting ED Provider: Trenton Ruiz Dx/Rx/DC Orders Clinical Impression: Abdominal pain, Vomiting Prescriptions: No Action clopidogrel [Plavix] 75 mg tablet 75 mg PO DAILY metoprolol succinate 25 mg tablet extended release 24 hr 25 mg PO BID lansoprazole 15 mg capsule,delayed release(DR/EC) 15 mg PO DAILY nitroglycerin 0.4 mg tablet, sublingual 0.4 mg sublingual Q5M PRN Rx Instructions: do not exceed 3 doses per episode acetaminophen [Tylenol Extra Strength] 500 mg tablet 500 mg PO Q6H PRN alprazolam 1 mg tablet See Rx Instructions .ROUTE .COMPLEX Qty: 1 0RF Rx Instructions: Take 1 tablet orally 30 minutes prior to MRI atorvastatin 40 mg Tablet 40 mg PO DAILY citalopram 40 mg Tablet 40 mg PO DAILY trazodone 50 mg Tablet 75 mg PO DAILY meloxicam 15 mg Tablet 15 mg PO DAILY PRN (Reason: UNKNOWN) sucralfate 1 gram Tablet 1 g PO 4X/DAY lisinopril 20 mg Tablet 20 mg PO DAILY amlodipine 10 mg Tablet 10 mg PO DAILY aspirin 81 mg Tablet,Chewable 81 mg PO DAILY fenofibrate 120 mg Tablet 145 mg PO DAILY promethazine 25 mg tablet 25 mg PO Q6H PRN (Reason: nausea and vomiting) 7 Days Qty: 28 0RF Primary Care Provider: Care Physician,No Primary Referrals: Care Physician,No Primary [Primary Care Provider] - What to do if you have Problems For any increased pain, shortness of breath, bleeding, nausea or vomiting, chestpain, or any unexpected problems, contact your Primary Care Provider. Call [facility] ([phone]) or report to the closest Emergency Room. Call 911 if necessary. 09/06/23 1528 <Electronically signed by Trenton Ruiz DO> Cosigner Signature (if applicable): CC: No Primary Care Physician ~ Signed [facility] Work Phone: [phone]) 163-819810-11-2023 Evaluation + Plan noteExtracted from: Title:History and Physical Author:BERNARDA JOHNS MD Date:07/04/23 Orders: Lactated Ringers Infusion 1,000 mL, Start: 07/04/23 7:35:00 EDT, Rate: 20 mL/hr, 07/04/23 7:35:00 EDT Lactated Ringers Infusion 1,000 mL, Start: 07/04/23 7:35:00 EDT, Rate: 50 mL/hr, 07/04/23 7:35:00 EDT Communication Order (scheduled) Communication Order (scheduled) Consult to Anesthesia Consult to Anesthesia IV Catheter Insertion/Care NPO for Procedure Sign Consent Sign Consent Sign Consent Vital Signs PRN Recurrent vomiting, history of prior polyps. Consent conference held for EGD and colonoscopy. [facility] 10-11-2023 Hospital Discharge instructions Patient Education 07/04/2023 09:23:17 9 - AO Minor Esophagogastroduodenoscopy (12/05)(CUSTOM) Esophagogastroduodenoscopy This is an endoscopic procedure (a procedure that uses a device like a flexible telescope) that allows your caregiver to view the upper stomach and small bowel. This test allows your caregiver to look at the esophagus. The esophagus carries food from your mouth to your stomach. They can also look at your duodenum. This is the first part of the small intestine that attaches to the stomach. This test is used to detect problems in the bowel such as ulcers and inflammation. MEANING OF TEST Your caregiver will go over the test results with you and discuss the importance and meaning of your results, as well as treatment options and the need for additional tests if necessary. OBTAINING THE TEST RESULTS Your caregiver s office will call you with the results of the test. POST SEDATION INSTRUCTIONS Rest at home today. Since your coordination may be impaired, be cautious on stairways, do not drive any vehicle or operate any heavy machinery, or use any sharp instruments for the remainder of the day. Do not drink any alcoholic beverages or make any major decisions for 24 hours. POST PROCEDURE INSTRUCTIONS Progress slowly with full liquids then resume previous diet and medications. Belching or passing of gas is to be expected. Notify the physician if you have severe chest pain, fever, or if difficulty when swallowing persists. 12/02/13 Custom 07/04/2023 09:22:34 Monitored Anesthesia Care, Care After Monitored Anesthesia Care, Care After These instructions provide you with information about caring for yourself after your procedure. Your health care provider may also give you more specific instructions. Your treatment has been plannedaccording to current medical practices, but problems sometimes occur. Call your health care provider if you have any problems or questions after your procedure. What can I expect after the procedure? After your procedure, you may: Feel sleepy for several hours. Feel clumsy and have poor balance for several hours. Feel forgetful about what happened after the procedure. Have poor judgment for several hours. Feel nauseous or vomit. Have a sore throat if you had a breathing tube during the procedure. Follow these instructions at home: For at least 24 hours after the procedure: Have a responsible adult stay with you. It is important to have someone help care for you until youare awake and alert. Rest as needed. Do not: ?Participate in activities in which you could fall or become injured. ?Drive. ?Use heavy machinery. ?Drink alcohol. ?Take sleeping pills or medicines that cause drowsiness. ?Make important decisions or sign legal documents. ?Take care of children on your own. Eating and drinking Follow the diet that is recommended by your health care provider. If you vomit, drink water, juice, or soup when you can drink without vomiting. Make sure you have little or no nausea before eating solid foods. General instructions Take gxyp-ugs-dkywcyw and prescription medicines only as told by your health care provider. If you have sleep apnea, surgery and certain medicines can increase your risk for breathing problems. Follow instructions from your health care provider about wearing your sleep device: ?Anytime you are sleeping, including during daytime naps. ?While taking prescription pain medicines, sleeping medicines, or medicines that make you drowsy. If you smoke, do not smoke without supervision. Keep all follow-up visits as told by your health care provider. This is important. Contact a health care provider if: You keep feeling nauseous or you keep vomiting. You feel light-headed. You develop a rash. You have a fever. Get help right away if: You have trouble breathing. Summary For several hours after your procedure, you may feel sleepy and have poor judgment. Have a responsible adult stay with you for at least 24 hours or until you are awake and alert. This information is not intended to replace advice given to you by your health care provider. Make sure you discuss any questions you have with your health care provider. Document Released: 12/31/2016 Document Revised: 12/09/2018 Document Reviewed: 12/31/2016 XO1 Patient Education 2020 [employer]. 07/04/2023 09:22:06 Colonoscopy, Adult, Care After Colonoscopy, Adult, Care After This sheet gives you information about how to care for yourself after your procedure. Your health care provider may also give you more specific instructions. If you have problems or questions, contact your health care provider. What can I expect after the procedure? After the procedure, it is common to have: A small amount of blood in your stool for 24 hours after the procedure. Some gas. Mild abdominal cramping or bloating. Follow these instructions at home: General instructions For the first 24 hours after the procedure: ?Do not drive or use machinery. ?Do not sign important documents. ?Do not drink alcohol. ?Do your regular daily activities at a slower pace than normal. ?Eat soft, zpjt-in-ezuklj foods. Take ljlb-mgo-dqzprji or prescription medicines only as told by your health care provider. Relieving cramping and bloating Try walking around when you have cramps or feel bloated. Apply heat to your abdomen as told by your health care provider. Use a heat source that your healthcare provider recommends, such as a moist heat pack or a heating pad. ?Place a towel between your skin and the heat source. ?Leave the heat on for 20 30 minutes. ?Remove the heat if your skin turns bright red. This is especially important if you are unable to feel pain, heat, or cold. You may have a greater risk of getting burned. Eating and drinking Drink enough fluid to keep your urine pale yellow. Resume your normal diet as instructed by your health care provider. Avoid heavy or fried foods thatare hard to digest. Avoid drinking alcohol for as long as instructed by your health care provider. Contact a health care provider if: You have blood in your stool 2 3 days after the procedure. Get help right away if: You have more than a small spotting of blood in your stool. You pass large blood clots in your stool. Your abdomen is swollen. You have nausea or vomiting. You have a fever. You have increasing abdominal pain that is not relieved with medicine. Summary After the procedure, it is common to have a small amount of blood in your stool. You may also have mild abdominal cramping and bloating. For the first 24 hours after the procedure, do not drive or use machinery, sign important documents, or drink alcohol. Contact your health care provider if you have a lot of blood in your stool, nausea or vomiting, a fever, or increased abdominal pain. This information is not intended to replace advice given to you by your health care provider. Make sure you discuss any questions you have with your health care provider. Document Released: 04/24/2005 Document Revised: 07/03/2018 Document Reviewed: 11/21/2016 XO1 Patient Education 2020 [employer]. Follow Up Care 06/21/2023 08:24:07 With:SOBEIDA JOHNS Address: [address] [place] [address] [phone] Business (1) When: Unknown Comments:Follow-up as needed. Followup based on biopsy results [facility] 10-11-2023 Note Discharge Instructions Thank you for allowing [facility] to assist you with your healthcare needs. The following is importantdischarge information regarding your hospital visit. Your Care Team PRERNA LEMUS DO Dr. Johns What to do next Follow Up Appointments Follow Up with SOBEIDA JOHNS When Why: Follow-up as needed. Followup based on biopsy results Where: [address] [place] [address] [place] [phone] Business (1) The Following Activity and Diet Have Been Ordered for You Discharge Activity - Ordered -- Other, Follow the post-operative/post-procedure activity instructions provided by your physician's office., 07/04/23 9:02:00 EDT Discharge Diet - Ordered -- Follow the post-operative/post-procedure diet instructions provided by your physician's office.,07/04/23 9:02:00 EDT Allergies Macrobid (black eyes) Zoloft (chest pain) meloxicam penicillin Medications Please ask your primary doctor or pharmacist before taking any other medication not listed, including over the counter drugs, herbal medications, vitamins and or supplements as they may interact withyour home medications. What How Much When Instructions Last Dose Unchanged amLODIPine (amLODIPine 10 mg oral tablet) 1 tab(s) by mouth Once a day Unchanged aspirin (aspirin 81 mg oral delayed release tablet) 1 tab(s) by mouth Every day Unchanged atorvastatin (atorvastatin 40 mg oral tablet) 1 tab(s) by mouth Daily at bedtime Unchanged cholecalciferol (Vitamin D3 25 mcg (1000 intl units) oral capsule) 1 cap by mouth Every day Unchanged citalopram (citalopram 40 mg oral tablet) 1 tab(s) by mouth Once a day Unchanged clopidogrel (clopidogrel 75 mg oral tablet) 1 tab(s) by mouth Once a day Unchanged fenofibrate (fenofibrate 160 mg oral tablet) 1 tab(s) by mouth Once a day Unchanged lisinopril (lisinopril 40 mg oral tablet) 1 tab(s) by mouth Once a day Unchanged magnesium oxide (Magnesium 250 mg tablet) 1 tab(s) by mouth Once a day Unchanged metoprolol (Metoprolol Succinate ER 25 mg oral TABLET extended release) 1 tab(s) by mouth Once a day Unchanged pantoprazole (pantoprazole 20 mg oral enteric coated tablet) 1 tab(s) by mouth Once a day before a meal Unchanged potassium chloride (potassium chloride 99 mg oral tablet) 1 tab(s) by mouth Once a day Take with food Unchanged promethazine (promethazine 25 mg oral tablet) 1 tab(s) by mouth Every 6 hours as needed for as needed for nausea/vomiting Unchanged traZODone (traZODone 50 mg oral tablet) 2 tab(s) by mouth Daily at bedtime Please take this list to your next doctor s visit. Bring all medications you take, including over the counter medications, herbals and other supplements with you to your doctor s visit. Patients and families are reminded to discard old lists and to update any records with all medication providers or retail pharmacies. Education Materials Esophagogastroduodenoscopy This is an endoscopic procedure (a procedure that uses a device like a flexible telescope) that allows your caregiver to view the upper stomach and small bowel. This test allows your caregiver to look at the esophagus. The esophagus carries food from your mouth to your stomach. They can also look at your duodenum. This is the first part of the small intestine that attaches to the stomach. This test is used to detect problems in the bowel such as ulcers and inflammation. MEANING OF TEST Your caregiver will go over the test results with you and discuss the importance and meaning of your results, as well as treatment options and the need for additional tests if necessary. OBTAINING THE TEST RESULTS Your caregiver s office will call you with the results of the test. POST SEDATION INSTRUCTIONS Rest at home today. Since your coordination may be impaired, be cautious on stairways, do not drive any vehicle or operate any heavy machinery, or use any sharp instruments for the remainder of the day. Do not drink any alcoholic beverages or make any major decisions for 24 hours. POST PROCEDURE INSTRUCTIONS Progress slowly with full liquids then resume previous diet and medications. Belching or passing of gas is to be expected. Notify the physician if you have severe chest pain, fever, or if difficulty when swallowing persists. 12/02/13 Custom Monitored Anesthesia Care, Care After These instructions provide you with information about caring for yourself after your procedure. Your health care provider may also give you more specific instructions. Your treatment has been plannedaccording to current medical practices, but problems sometimes occur. Call your health care provider if you have any problems or questions after your procedure. What can I expect after the procedure? After your procedure, you may: Feel sleepy for several hours. Feel clumsy and have poor balance for several hours. Feel forgetful about what happened after the procedure. Have poor judgment for several hours. Feel nauseous or vomit. Have a sore throat if you had a breathing tube during the procedure. Follow these instructions at home: For at least 24 hours after the procedure: Have a responsible adult stay with you. It is important to have someone help care for you until youare awake and alert. Rest as needed. Do not: ? Participate in activities in which you could fall or become injured. ? Drive. ? Use heavy machinery. ? Drink alcohol. ? Take sleeping pills or medicines that cause drowsiness. ? Make important decisions or sign legal documents. ? Take care of children on your own. Eating and drinking Follow the diet that is recommended by your health care provider. If you vomit, drink water, juice, or soup when you can drink without vomiting. Make sure you have little or no nausea before eating solid foods. General instructions Take rtbz-dmg-crkztwr and prescription medicines only as told by your health care provider. If you have sleep apnea, surgery and certain medicines can increase your risk for breathing problems. Follow instructions from your health care provider about wearing your sleep device: ? Anytime you are sleeping, including during daytime naps. ? While taking prescription pain medicines, sleeping medicines, or medicines that make you drowsy. If you smoke, do not smoke without supervision. Keep all follow-up visits as told by your health care provider. This is important. Contact a health care provider if: You keep feeling nauseous or you keep vomiting. You feel light-headed. You develop a rash. You have a fever. Get help right away if: You have trouble breathing. Summary For several hours after your procedure, you may feel sleepy and have poor judgment. Have a responsible adult stay with you for at least 24 hours or until you are awake and alert. This information is not intended to replace advice given to you by your health care provider. Make sure you discuss any questions you have with your health care provider. Document Released: 12/31/2016 Document Revised: 12/09/2018 Document Reviewed: 12/31/2016 XO1 Patient Education 2020 [employer]. Colonoscopy, Adult, Care After This sheet gives you information about how to care for yourself after your procedure. Your health care provider may also give you more specific instructions. If you have problems or questions, contact your health care provider. What can I expect after the procedure? After the procedure, it is common to have: A small amount of blood in your stool for 24 hours after the procedure. Some gas. Mild abdominal cramping or bloating. Follow these instructions at home: General instructions For the first 24 hours after the procedure: ? Do not drive or use machinery. ? Do not sign important documents. ? Do not drink alcohol. ? Do your regular daily activities at a slower pace than normal. ? Eat soft, wkov-bg-hjrojd foods. Take xhyq-hdg-igzzpvl or prescription medicines only as told by your health care provider. Relieving cramping and bloating Try walking around when you have cramps or feel bloated. Apply heat to your abdomen as told by your health care provider. Use a heat source that your healthcare provider recommends, such as a moist heat pack or a heating pad. ? Place a towel between your skin and the heat source. ? Leave the heat on for 20 30 minutes. ? Remove the heat if your skin turns bright red. This is especially important if you are unable to feel pain, heat, or cold. You may have a greater risk of getting burned. Eating and drinking Drink enough fluid to keep your urine pale yellow. Resume your normal diet as instructed by your health care provider. Avoid heavy or fried foods thatare hard to digest. Avoid drinking alcohol for as long as instructed by your health care provider. Contact a health care provider if: You have blood in your stool 2 3 days after the procedure. Get help right away if: You have more than a small spotting of blood in your stool. You pass large blood clots in your stool. Your abdomen is swollen. You have nausea or vomiting. You have a fever. You have increasing abdominal pain that is not relieved with medicine. Summary After the procedure, it is common to have a small amount of blood in your stool. You may also have mild abdominal cramping and bloating. For the first 24 hours after the procedure, do not drive or use machinery, sign important documents, or drink alcohol. Contact your health care provider if you have a lot of blood in your stool, nausea or vomiting, a fever, or increased abdominal pain. This information is not intended to replace advice given to you by your health care provider. Make sure you discuss any questions you have with your health care provider. Document Released: 04/24/2005 Document Revised: 07/03/2018 Document Reviewed: 11/21/2016 XO1 Patient Education 2020 [employer] Additional Information VACCINATE! IT SAVES LIVES! Members of the community who have not yet received the COVID-19 vaccine and would like to receive it can visit one of [facility] vaccine clinics. There are many vaccine clinic locations within the [facility]. For locations and available times, please visit [email or web address].[place].gov/. It is important to note that some COVID mobile vaccine clinics are held outdoors and may be canceled in rainy or stormy conditions. To learn more about pediatric vaccinations (ages 5-11), we invite you to visit the [facility] webpage. [email or web address]/[email or web address] [email or web address] learn more about the COVID-19 vaccine, we invite you to visit the CDC website for a list of frequently asked questions.https://www.cdc.gov/coronavirus/2019-ncov/vaccines/faq.html [facility] [employer] Patient Portal Access Instructions: Stay connected with your healthcare team and access your personal medical information anytime with the [email or web address] Patient Portal. Please follow the directions below to create your [email or web address] account: 1.Access the email account you provided upon registration to the hospital/physician office.2.Look for an invitation email from [facility].3.Open the email and access the invitation link: AcceptInvitation to [email or web address].4.Fill in the required roth to create your account. To access your account, visit [email or web address]. Click the blue button labeled Access Patient Portal and then log in with the username and password that you created in the steps above. You will be able to view your test results, lab results, a summary of your visits, upcoming appointments and more. There is also a convenient messaging option where you can send secure messages to your [facility]. In addition, you will have the ability to download any documents or summaries to your computer and/or send the information securely to a physician. Remember that your healthcare information is confidential, so carefully consider who you will allowto register on the [email or web address] Patient Portal for access to your information. You can also access the [facility] Patient Portal on the [facility] franca. Simply click on Patient Portal and then log into your account. If you would like to receive a full copy of your medical records, please contact the [facility] Medical Records Department by calling [phone], Sunday through Sunday between 8 a.m. and 4:30 p.m. HOW TO SAFELY DISPOSE OF PRESCRIPTION MEDICATIONS Please use one of the following methods to safely dispose of your unused medications. 1.Use a drug disposal kit: the drug disposal pouch allows you to safely discard your old and unuseddrugs. Ask your nurse to give you one when you are discharged.2.Visit a local take-back location: Many local pharmacies and police departments have programs that collect old and unwanted prescriptiondrugs. Call your local pharmacy or go to http://bit.ly/8O7Be3k to find one close to you.3.Make use of household items: Use cat litter or old coffee grounds to dispose medications if other options arenot available. Mix your drugs with these household products, seal them in an airtight container andthrow it into the garbage. Call [facility]: [phone] to be sure your drugs can be disposed of in this way. Some medicines may require a different approach.4.Never flush your medications down the toilet. IF YOU HAVE BEEN PRESCRIBED AN OPIOID FOR PAIN If you have been prescribed an opioid (such as hydrocodone, oxycodone or morphine), it is critical to understand the possible side effects and risks of opioid pain medications. Even when taken as directed, opioids can have several side effects including: Tolerance, meaning you might need to take more of a medication for the same pain relief. Nausea, vomiting and/or constipation. Sleepiness, dizziness, dry mouth, confusion, depression or itching. Physical dependence, meaning you have withdrawal symptoms when a medication is stopped, can develop within a few days. KNOW YOUR RESPONSIBILITIES It is important to know exactly how much and how often to take the opioid pain medications you are prescribed. Never take opioids in higher amounts or more often than prescribed. Do not combine opioids with alcohol or other drugs that cause drowsiness, such as benzodiazepines, also known as benzos, including diazepam and alprazolam, muscle relaxants or sleep aids. Never sell or share prescription opioids. This is illegal. Store opioids in a secure place and out of reach of others (including children, family, friends and visitors). The last page of this document has been signed and retained as a CHART COPY. Signatures Patient Education Materials 9 - AO Minor Esophagogastroduodenoscopy (12/05)(CUSTOM) Monitored Anesthesia Care, Care After Colonoscopy, Adult, Care After Medication Leaflets My discharge plan and instructions have been reviewed and explained to me and IFILI DANIEL F understand my current condition and have read and understand these discharge instructions. I have received a written copy of the plan/instructions. If I have questions, I am aware that I should contact my doctor. 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 The patient was originally evaluated by Chante Castillo APRN. Please refer to her note also. I independently and personally performed a history and physicalexamination with this patient and repeated the interiano components of the exam/history. I have reviewed her note. The patient was scheduled for endoscopy based on that visit and was evaluated by me prior to it. Voice recognition software was utilized for this document and may contain recognition errors inherent in that process. This is a patient who has had episodes of recurrent vomiting and was referred for upper endoscopy. He is also here for screening colonoscopy. Uses Plavix and meloxicam. Thereis report of having had precancerous polyps removed in the distant past. Physical Exam Vitals and Measurements T: 36.8 C (Tympanic) HR: 79(Apical) RR: 12 BP: 153/97 SpO2: 97% HT: 177.8 cm WT: 88.6 kg BMI: 28.03 Weight Dosing Weight: 88.6 kg (07/04/23) General appearance: The patient is alert and oriented and in no apparent distress. Vital signs werereviewed. HEENT: Hearing is appropriate. Sclera are clear and nonicteric. Nares normal. Oral mucosa is normal. Neck is free of lymphadenopathy. The trachea is midline. Chest: No supraclavicular lymphadenopathy. Lungs: Lungs are clear bilaterally. No rales or wheezing. Cardiac: normal Abdomen: Bowel sounds are present. The abdomen is soft, nontender. No palpable masses. No organomegaly. No inguinal lymphadenopathy. Rectal examination is deferred. Extremities: No cyanosis or clubbing. Neurology: No gross focal neurologic deficits. Integument: No telangiectasias or petechiae are seen. Lymphatic: No supraclavicular cervical inguinal adenopathy found Psychiatric examination: The patient is alert and oriented. Cognition seems appropriate. Recent andremote memory intact. Affect is appropriate. Lab Results No 36 Hour Lab Data Assessment/Plan Orders: Lactated Ringers Infusion 1,000 mL, Start: 07/04/23 7:35:00 EDT, Rate: 20 mL/hr, 07/04/23 7:35:00 EDT Lactated Ringers Infusion 1,000 mL, Start: 07/04/23 7:35:00 EDT, Rate: 50 mL/hr, 07/04/23 7:35:00 EDT Communication Order (scheduled) Communication Order (scheduled) Consult to Anesthesia Consult to Anesthesia IV Catheter Insertion/Care NPO for Procedure Sign Consent Sign Consent Sign Consent Vital Signs PRN Recurrent vomiting, history of prior polyps. Consent conference held for EGD and colonoscopy. Problem List/Past Medical History Ongoing Coronary artery disease Hypertension Historical No qualifying data Procedure/Surgical History Wrist Repair of diaphragmatic hiatal hernia Arthroscopy of knee EGD - esophagogastroduodenoscopy Colonoscopy Coronary artery stent Cholecystectomy Medications Home Medications (14) Active amLODIPine 10 mg oral tablet 10 mg = 1 tab(s), Oral, qDay aspirin 81 mg oral delayed release tablet 81 mg = 1 tab(s), Oral, Daily atorvastatin 40 mg oral tablet 40 mg = 1 tab(s), Oral, qHS citalopram 40 mg oral tablet 40 mg = 1 tab(s), Oral, qDay clopidogrel 75 mg oral tablet 75 mg = 1 tab(s), Oral, qDay fenofibrate 160 mg oral tablet 160 mg = 1 tab(s), Oral, qDay lisinopril 40 mg oral tablet 40 mg = 1 tab(s), Oral, qDay Magnesium 250 mg tablet 250 mg = 1 tab(s), Oral, qDay Metoprolol Succinate ER 25 mg oral TABLET extended release 25 mg = 1 tab(s), Oral, qDay pantoprazole 20 mg oral enteric coated tablet 20 mg = 1 tab(s), Oral, qDayAC potassium chloride 99 mg oral tablet 99 mg = 1 tab(s), Oral, qDay promethazine 25 mg oral tablet 25 mg = 1 tab(s), PRN, Oral, q6h traZODone 50 mg oral tablet 100 mg = 2 tab(s), Oral, qHS Vitamin D3 25 mcg (1000 intl units) oral capsule 25 mcg = 1 cap(s), Oral, Daily Allergies Macrobid (black eyes) Zoloft (chest pain) meloxicam penicillin Social History Alcohol - No Risk, 06/25/2022 Use: Past., 01/15/2023 Home/Environment Domestic Concerns: None. Living situation: Home with assistance. Primary Customer Service Administrator: Self. Safe place to go: Yes. Current Home Treatments Blood Pressure monitoring, cpap, pulse ox. Spouse Name: Lobo. Marital Status: ., 07/04/2023 Nutrition/Health Type of diet: Regular, Low sodium. Appetite Good. Eating Difficulties None. Enteral Feedings No. TPN Feedings No. Skin Breakdown No., 07/04/2023 Substance Abuse - No Risk, 06/25/2022 Use: Never., 01/15/2023 Tobacco - High Risk, 06/25/2022 Nicotine Use: Cigars or pipes daily within last 30 days. Type: Cigars. Tobacco use per day: 4. Number of years: 1., 07/04/2023 Nicotine Use: Former smoker, quit more than 30 days ago. Type: Cigarettes. Number of years: 20. Stopped at age: 28 Years., 07/04/2023 Family History Cancer: Brother. Heart attack: Mother and Father. Leukemia: Brother. Immunizations pneumococcal 23-valent vaccine(Pneumovax: 0 unknown unit (11/27/15) SARS-CoV-2 mRNA (tozinameran) vaccine: 0.3 unknown unit (09/28/21) Code Status No qualifying data available. Digitally Signed by SOBEIDA JOHNS MD on 07/04/2023 08:40 AM [facility]10-11-2023 Anesthesiology Consult note Patient: TRUONG ROSARIO Age: 63 years Sex: Male : 1960 Associated Diagnoses: None Author: NAHED PAULSON APRN-THEATRICAL DRESSER Preoperative Information Anesthesia history Patient's history: negative. Family's history: negative. Health Status Allergies: Allergic Reactions (Selected) Severity Not Documented Macrobid- Black eyes. Meloxicam- No reactions were documented. Penicillin- No reactions were documented. Zoloft- Chest pain., Allergies (4) ActiveReaction Macrobidblack eyes meloxicamNone Documented penicillinNone Documented Zoloftchest pain Current medications: (Selected) Inpatient Medications Ordered LR 1,000 mL: 50 mL/hr, Intravenous Lactated Ringers Infusion 1,000 mL: 20 mL/hr, Intravenous Documented Medications Documented Magnesium 250 mg tablet: 250 mg, 1 tab(s), Oral, qDay Metoprolol Succinate ER 25 mg oral TABLET extended release: 25 mg, 1 tab(s), Oral, qDay, 0 Refill(s) Vitamin D3 25 mcg (1000 intl units) oral capsule: 25 mcg, 1 cap(s), Oral, Daily, 0 Refill(s) amLODIPine 10 mg oral tablet: 10 mg, 1 tab(s), Oral, qDay, 30 tab(s), 0 Refill(s) aspirin 81 mg oral delayed release tablet: 81 mg, 1 tab(s), Oral, Daily, 0 Refill(s) atorvastatin 40 mg oral tablet: 40 mg, 1 tab(s), Oral, qHS, 0 Refill(s) citalopram 40 mg oral tablet: 40 mg, 1 tab(s), Oral, qDay, 0 Refill(s) clopidogrel 75 mg oral tablet: 75 mg, 1 tab(s), Oral, qDay, 0 Refill(s) fenofibrate 160 mg oral tablet: 160 mg, 1 tab(s), Oral, qDay, 0 Refill(s) lisinopril 40 mg oral tablet: 40 mg, 1 tab(s), Oral, qDay, 30 tab(s), 0 Refill(s) pantoprazole 20 mg oral enteric coated tablet: 20 mg, 1 tab(s), Oral, qDayAC, 0 Refill(s) potassium chloride 99 mg oral tablet: 99 mg, 1 tab(s), Oral, qDay, Take with food, 100 tab(s), 0 Refill(s) promethazine 25 mg oral tablet: 25 mg, 1 tab(s), Oral, q6h, PRN: as needed for nausea/vomiting, 0 Refill(s) traZODone 50 mg oral tablet: 100 mg, 2 tab(s), Oral, qHS, 0 Refill(s), Medications (2) Active Scheduled: (0) Continuous: (2) Lactated Ringers 1,000 mL 1,000 mL, Intravenous, 20 mL/hr Lactated Ringers 1,000 mL 1,000 mL, Intravenous, 50 mL/hr PRN: (0) Problem list: Medical Coronary artery disease / SNOMED CT 15809259 / Confirmed Hypertension / SNOMED CT 6555494675 / Confirmed, Active Problems (9) Adrenal cyst Coronary artery disease Cyclical vomiting Hemorrhoids Hypertension IN (myocardial infarction) OA (osteoarthritis) Sleep apnea Tobacco use Histories Past Medical History: No active or resolved past medical history items have been selected or recorded. Family History: Cancer Brother Heart attack Mother Father Leukemia Brother Procedure history: Cholecystectomy ([id number]). Wrist ([id number]). Comments: 01/15/2023 9:59 Janene Blair RN katelyn left wrist Coronary artery stent ([id number]). Comments: 07/04/2023 7:44 Dayami Pacheco RN 7 stents Repair of diaphragmatic hiatal hernia ([id number]). EGD - esophagogastroduodenoscopy ([id number]). Colonoscopy (134528334). Arthroscopy of knee ([id number]). Comments: 07/04/2023 7:48 Dayami Pacheco RN right Social History Social & Psychosocial Habits Alcohol 07/04/2023Risk Assessment: No Risk 07/04/2023 Use: Past Substance Abuse 07/04/2023Risk Assessment: No Risk 07/04/2023 Use: Never Tobacco 07/04/2023Risk Assessment: High Risk 07/04/2023 Tobacco Use: Former smoker, quit more Type: Cigarettes Number of years: 20 Stopped at age: 28 Years 07/04/2023 Tobacco Use: Cigars or pipes daily wit Type: Cigars Tobacco use per day: 4 Number of years: 1 Home/Environment 07/04/2023 Domestic Concerns None Living situation: Home with assistance Primary Customer Service Administrator: Self Safe place to go: Yes Current Home Treatments Blood Pressure monitoring, cpap, pulse ox Spouse Name Lobo Marital Status of Patient if Patient Independent Adult: Nutrition/Health 07/04/2023 Type of diet: Low sodium, Regular Appetite Good Eating Difficulties None Enteral Feedings No TPN Feedings No Skin Breakdown/Decubitus Ulcers No . Physical Examination Vital Signs 07/04/2023 7:48 EDT Temperature Tympanic 36.8 DegC Apical Heart Rate 79 bpm Respiratory Rate 12 br/min LOW Systolic Blood Pressure Non-Invasive 153 mmHg HI Diastolic Blood Pressure Non-Invasive 97 mmHg HI Blood Pressure Location Left arm Vital Signs(last 24 hrs) Last Charted Temp Lenvawkx39.8 DegC (JUL 04 07:48) Resp Rate L 12br/min (JUL 04:48) SBPH 153mmHg (JUL 04:48) DBPH 97mmHg (JUL 04:48) BMI28.03 (JUL 04:48) Measurements from flowsheet : Measurements 07/04/2023 7:48 EDT Height 177.8 cm Admission Weight 88.6 kg Weight Method Stated [place] Body Weight 73.00 kg BSA Admission 2.07 Body Mass Index 28.03 kg/m2 Pain assessment: Pain Assessment 07/04/2023 7:48 EDT Primary Pain Intensity 0 Primary Pain Nonverbal Response Appears restful Pain Scale Type 0-10 Pain scale . General: Alert and oriented. Airway: Normal temporomandibular joint mobility. Mallampati classification: II (soft palate, fauces, uvula visible). Dentition Evaluation: Missing teeth, Chipped teeth. Respiratory: Respirations are non-labored. Cardiovascular: Normal rate, Regular rhythm. Neurologic: Alert, Oriented. Review / Management Results review: No qualifying data available , Lab results 07/04/2023 8:30 EDT Lactated Ringers Injection Begin Bag 1,000 mL mL 07/04/2023 7:50 EDT Urinary Elimination Voiding, no difficulties IV Present Present Allergies Yes Anesthesia Extension Set Applied Yes Chief Information Security Officer On Yes Colon Prep Results Good Consent Form Signed Yes Patient Dressed In Hospital gown, No undergarments Pre-op Preparation Glasses removed Bowel Prep Completed Yes Belongings At Bedside Glasses, Jacket, Pants, Shirt, Shoes, Socks, Undergarments, Wallet NPO Status Maintained, Less than 8 hours Allergy Band on and Verified Yes Patient ID Band on and Verified Yes Implants Verified Yes Pacemaker/AICD Verified Yes Site Verified by Patient/Family Yes Blood Consent Signed No Last Fluid Intake 07/04/2023 6:00 Last Food Intake 07/02/2023 19:00 Last Void 07/04/2023 7:30 07/04/2023 7:48 EDT Designated Person #1 We May Share PHI Geena Rosario [phone] Designated Person #1 Relationship Spouse Designated Person #2 We May Share PHI Raquel Teixeira [phone] Designated Person #2 Relationship Son Privacy Restrictions Requested None Height 177.8 cm Admission Weight 88.6 kg Weight Method Stated [place] Body Weight 73.00 kg BSA Admission 2.07 Body Mass Index 28.03 kg/m2 Temperature Tympanic 36.8 DegC Apical Heart Rate 79 bpm Respiratory Rate 12 br/min LOW Systolic Blood Pressure Non-Invasive 153 mmHg HI Diastolic Blood Pressure Non-Invasive 97 mmHg HI Blood Pressure Location Left arm Primary Pain Intensity 0 Primary Pain Nonverbal Response Appears restful Pain Scale Type 0-10 Pain scale Heart Rhythm Regular Respirations Unlabored Respiratory Pattern Regular Oxygen Therapy Room air Oxygen Saturation 97 % Abdomen Description Soft, Rounded Bowel Sounds All Quadrants Present Status N/A Skin Temperature Warm Skin Description [place], Dry Skin Integrity Intact Skin Moisture General Dry Neurological Symptoms Patient denies Extremity Movement Equal Characteristics of Speech Clear Level of Consciousness Alert Strength All Extremities Strong Tone All Extremities Normal Sensation All Extremities Intact Affect/Behavior Appropriate, Calm, Cooperative Orientation Oriented x 4 Sensory Deficits None Infectious Disease Symptoms Patient states no symptoms Infectious Disease Recent Exposure No Alcohol and Drug Use No Employee of Institutional Living No Health Care Employee No History of Exposure to TB No History of Positive Chest X-Ray for TB No History of Positive TB Skin Test No Homeless No Known Immunosuppression No Recent Immigrant No Resident of Institutional Living No Bloody Sputum No Fatigue No Fever No Loss of Appetite No Night Sweats No Persistent Cough > 3 Weeks No Weight Loss No Shantel Motor (2) Moves 4 extremities voluntarily or on command Shantel Respirations (2) Spontaneous respiration without support, RR > 10 Shantel Blood Pressure (2) BP 20% above or below preanesthetic level Shantel Pulse (2) Pulse 20% above or below preanesthetic level Shantel Oxygen Saturation (2) 94% or more Shantel Level of Consciousness (2) Fully awake Shantel III Score 12 Barriers to Learning None evident Teaching Method Explanation, Printed materials Preferred Spoken Language Swedish Preferred Written Language Swedish Information Given by Patient Patient's Current Physicians Patient's Current Physicians Discharge To, Anticipated Home independently Assistive Device None Positioning Repositions self Activity Status ADL Awake, Resting Standard Safety ID band on, Allergy Band on, Call device within reach, Bed in low position, Wheels locked Demonstrates Correct Call Light Use Yes Prev Test Positive/Diagnosis w/COVID-19 No Current Quarantine/Isolated any Illness No Any Contact with Sick Animals/Birds No Traveled Anywhere in Last 30 Days No N/A Personal Devices, Patient Valuables Glasses Admission Note-Nursing Procedure/Therapy Intake 07/04/2023 7:30 EDT Wrist Right 07/04/2023 22 gauge Peripheral IV Activity: Insert new site Peripheral IV Dressing Condition: Clean, Dry, Intact Peripheral IV Dressing Activity: Applied, Transparent dressing Peripheral IV Line Status/Patency: Continuous infusion, Good blood return Peripheral IV Site Condition: No complications Peripheral IV Equipment: Extension set Peripheral IV Number of Attempts: 1 . Assessment and Plan [place] Society [employer] Anesthesiologists (ASA) physical status classification: Class III. Anesthetic Preoperative Plan Anesthetic technique: MAC. Postoperative pain management: Per surgeon. Risks discussed: nausea, vomiting, sore throat, dental injury, hypotension, allergic reaction, serious complications. Informed consent: signed by patient. Digitally Signed by NAHED PAULSON on 07/04/2023 08:40 AM [facility]07-19-2023 Note. MICRO - Microbiology PROCEDURE: Blood Culture (bacterial) [*1] SOURCE: Blood BODY SITE: COLLECTED DATE/TIME: 04/06/2023 06:25 EDT RECEIVED DATE/TIME: 04/06/2023 15:07 EDT START DATE/TIME: 04/06/2023 15:07 EDT FREE TEXT SOURCE: FINAL REPORTS Final Report [] Verified Date/Time/Personnel: 2023 15:59 EDT Blood Culture: No Growth at 5 days. PRELIMINARY REPORTS Preliminary Report [] Verified Date/Time/Personnel: 04/06/2023 15:59 EDT Culture has been received in lab and is no growth to date. Routine cultures are held for 5 days. Performing Locations *1: This test was performed at: [facility], [address] [place] [address], [phone] , [facility] ([place])2023 Note. MICRO - Microbiology PROCEDURE: Blood Culture (bacterial) [*1] SOURCE: Blood BODY SITE: COLLECTED DATE/TIME: 04/06/2023 06:25 EDT RECEIVED DATE/TIME: 04/06/2023 15:07 EDT START DATE/TIME: 04/06/2023 15:07 EDT FREE TEXT SOURCE: FINAL REPORTS Final Report [] Verified Date/Time/Personnel: 2023 15:59 EDT Blood Culture: No Growth at 5 days. PRELIMINARY REPORTS Preliminary Report [] Verified Date/Time/Personnel: 04/06/2023 15:59 EDT Culture has been received in lab and is no growth to date. Routine cultures are held for 5 days. Performing Locations *1: This test was performed at: [address], [facility] , [facility] ([place])04-07-2023 NoteSend Summary: Discharge Summary Providers: Provider RoleProvider Name PrimaryWMiguel Ángel hay Note Recipients: Correct Info, Needed, Ashlee Bui, Miguel Ángel Alfredo, - [phone] [] Discharge: Summary: Admission Date: .07-Apr-2023 00:56:00 Discharge Date: 08-Apr-2023 Attending Physician at Discharge: Ashlee Cardenas Admission Reason: Pneumomediastinum with concerns for esophageal perforation. Final Discharge Diagnoses: Pneumomediastinum Procedures: none Condition at Discharge: Satisfactory Disposition at Discharge: .Home Vital Signs: T PRBPMAPSpO2 [id number]% Date/Time04/07 13: 13: 13: 13: 13:26 Range(36.1C - 37.3C ) (61 - 74 ) (16 - 19 ) (165 - 170 )/ (76 - 91 ) (94% - 98% ) Highest temp of 37.3 C was recorded at 04/07 13:26 Date: Weight/Scale Type:Height: 07-Apr-2023 02:5081.5 kg / orbkiixu763.1 cm Physical Exam: Awake alert in no acute distress NCAT, neck supple Mucous membranes dry Barrel chested, no crepitus felt over entire chest wall, chest wall is stable, lungs clear to auscultation bilaterally, breathing comfortably on room air without conversational dyspnea. Abdomen is soft, there is no guarding, patient is tender worst in epigastrium and right upper quadrant, abdomen is nondistended. Pulses are regular and strong in bilateral wrists and feet. Extremities are warm and dry. No focal deficits noted. Hospital Course: 62YO M admitted due to concerns for esophageal perforation given pneumomediastinum after 1-2 weeks of severe episodes of vomiting. Patient does have a history of cyclic vomiting and treatments for GERD such as prior hiatal hernia repair and Gabriela fundoplication. Patient has been hemodynamically stable and his pain and other symptoms of nausea and vomiting improved and subsequently resolved since admission. His leukocytosis has improved since presentation with broad-spectrum antibiotics. CT scan from outside hospital does demonstrate pneumomediastinum. Esophagram done here demonstrates no definitive leak of contrast. He does not have any signs or symptoms concerning for a large esophageal perforation such as dysphagia, chest wall crepitus, pleural effusion, worsening clinical status. PO challenge with clear liquids was well tolerated and patient appropriate to discharge home with oral antibiotics for 5 days, clear liquid diet for 5 days followed by full liquid diet for 2 days and subsequent regular diet with outpatient follow up. Immunizations: Immunizations: 27-Nov-2015 .Influenza- Influenza Virus: Immunizations, 27-Nov-2015 Pneumonia- Pneumococcal polysaccharide vaccine: Immunizations, 27-Nov-2015 Discharge Information: and Continuing Care: Lab Results - Pending: None Radiology Results - Pending: None Discharge Instructions: Activity: activity as tolerated. May shower.. May return to school/work. May drive.. Nutrition/Diet: Clear liquid diet for 5 days followed by Full liquid diet for 2 days and regular diet after that. Follow Up Appointments: Follow-Up Appointment: Physician/Dept/Service: Thoracic surgery Dr. Cardenas Call to Schedule in: 2 weeks Phone Number: [phone] Discharge Medications: Home Medication citalopram 40 mg oral tablet - 1 tab(s) orally once a day atorvastatin 40 mg oral tablet - 1 tab(s) orally once (at bedtime) amLODIPine 10 mg oral tablet - 1 tab(s) orally once a day aspirin 81 mg oral tablet, chewable - 1 tab(s) orally once a day traZODone - 100 milligram(s) orally once a day (at bedtime) clopidogrel 75 mg oral tablet - 1 tab(s) orally once a day prochlorperazine 10 mg oral tablet - 1 tab(s) orally 3 times a day dicyclomine 20 mg oral tablet - 1 tab(s) orally 4 times a day lisinopril 20 mg oral tablet - 1 tab(s) orally once a day meloxicam 15 mg oral tablet - 1 tab(s) orally once a day metoprolol succinate 25 mg oral tablet, extended release - 1 tab(s) orally once a day promethazine 25 mg oral tablet - 1 tab(s) orally every 6 hours sucralfate 1 g oral tablet - 1 tab(s) orally 4 times a day (before meals and at bedtime) levoFLOXacin 750 mg oral tablet - 1 tab(s) orally once a day Protonix 40 mg oral delayed release tablet - 1 tab(s) orally 2 times a day PRN Medication promethazine 25 mg rectal suppository - 1 suppository(ies) rectal 2 times a day, As Needed DNR Status: Code StatusCode Status order at time of discharge: Full Code Attestation: Note Completion: I am a: Resident/Fellow Attending AttestationI saw and evaluated the patient. I personally obtained the interiano and critical portions of the history and physical exam or was physically present for interiano and critical portions performed by the resident/fellow. I reviewed the resident/fellows documentation and discussed the patient with the resident/fellow. I agree with the resident/fellows medical decision (more content not included)...[facility] 04-07-2023 Note. MICRO - Microbiology PROCEDURE: Urine Culture [*1] SOURCE: Urine, Clean Catch BODY SITE: COLLECTED DATE/TIME: 04/06/2023 08:55 EDT RECEIVED DATE/TIME: 04/06/2023 15:19 EDT START DATE/TIME: 04/06/2023 15:19 EDT FREE TEXT SOURCE: FINAL REPORTS Final Report [] Verified Date/Time/Personnel: 04/07/2023 15:39 EDT 10,000 - 50,000 cfu/ml Multiple bacterial morphotypes present. Probable Contamination. Suggest recollection if clinically indicated. Performing Locations *1: This test was performed at: [facility], [address] [place] [address], [phone] , [facility] ([place])04-07-2023 NoteHistory of Present Illness: HPI: TRUONG ROSARIO is a 62 year old Man With past medical history significant for GERD, cyclic vomiting syndrome, Marti's esophagus, prior hiatal hernia repair with Gabriela fundoplication, who presented to outside hospital with 2 days of more severe nausea and forceful vomiting. He states that this vomiting was worse than usual and it caused him to have more abdominal pain than he has had previously with bouts of nausea and vomiting. He did have some bloody emesis but this has resolved for more than 48 hours. He presented to outside hospital ED and received CT chest and abdomen and pelvis which demonstrated small pneumomediastinum anterior to the esophagus. He was started on broad-spectrum antibiotics. He was transferred to the floor at [facility] for further evaluation. Upon my interview the patient endorses moderate abdominal pain worst in the epigastrium. He has not vomited since 3 AM 04/06/2023. He is quite thirsty he denies any pain with swallowing. He does not endorse any difficulty breathing or any chest pain. He denies fever or chills. He does admit that this pain is new for him despite his long history of cyclic vomiting and functional abdominal pain. He reports regular bowel movements. He is currently taking dual antiplatelet therapy consisting of aspirin and Plavix. He denies any other blood thinners. He last ate greater than 24 hours ago. PMH CAD HTN HLD Cyclic Vomiting GERD Marti's Esophagus PSH Coronary Stents X7 Hiatal Hernia Repair with Gabriela Fundoplication in 2016 Cholecystectomy Wrist Surgery FH CAD--> Both Parents Leukemia--> Brother SH Current Cigar and cigarette smoker Denies current ETOH or Drug Use Lives with Allergies Confirms Penicillin Allergy, unsure about others, see EMR ROS Complete and Pertinent Positives and Negatives Noted in HPI Comorbidities: Comorbidites: Comorbid Conditionshypertension Allergies: vancomycin: Rash penicillin: Unknown Macrobid: Unknown morphine: Unknown Medications Prior to Admission: Protonix 40 mg oral delayed release tablet: 1 tab(s) orally 2 times a day promethazine 25 mg rectal suppository: 1 suppository(ies) rectal 2 times a day, As Needed citalopram 40 mg oral tablet: 1 tab(s) orally once a day atorvastatin 40 mg oral tablet: 1 tab(s) orally once (at bedtime) amLODIPine 10 mg oral tablet: 1 tab(s) orally once a day aspirin 81 mg oral tablet, chewable: 1 tab(s) orally once a day traZODone: 100 milligram(s) orally once a day (at bedtime) clopidogrel 75 mg oral tablet: 1 tab(s) orally once a day prochlorperazine 10 mg oral tablet: 1 tab(s) orally 3 times a day dicyclomine 20 mg oral tablet: 1 tab(s) orally 4 times a day fenofibrate 145 mg oral tablet: 1 tab(s) orally once a day lisinopril 20 mg oral tablet: 1 tab(s) orally once a day meloxicam 15 mg oral tablet: 1 tab(s) orally once a day metoprolol succinate 25 mg oral tablet, extended release: 1 tab(s) orally once a day promethazine 25 mg oral tablet: 1 tab(s) orally every 6 hours sucralfate 1 g oral tablet: 1 tab(s) orally 4 times a day (before meals and at bedtime). Objective: Physical Exam Narrative: Physical Exam: Awake alert in no acute distress NCAT, neck supple Mucous membranes dry Barrel chested, no crepitus felt over entire chest wall, chest wall is stable, lungs clear to auscultation bilaterally, breathing comfortably on room air without conversational dyspnea. Abdomen is soft, there is no guarding, patient is tender worst in epigastrium and right upper quadrant, abdomen is nondistended. Pulses are regular and strong in bilateral wrists and feet. Extremities are warm and dry. No focal deficits noted. Medications: Medications: Continuous Medications 1. Lactated Ringers Infusion: 1000 mL IntraVenous Scheduled Medications 1. Meropenem IV Piggy Back: 1 gram(s) IntraVenous Piggyback Every 8 Hours 2. Metoprolol Injectable: 5 mg IntraVenous Push Every 6 Hours 3. Pantoprazole Injectable: 40 mg IntraVenous Push Every 12 Hours PRN Medications 1. Ondansetron Injectable: 4 mg IntraVenous Push Every 6 Hours Recent Lab Results: Results: I have reviewed these laboratory results: Hepatic Function Panel 07-Apr-2023 01:24:00 ResultValue Aspartate Transaminase, Serum 31 ALB 3.9 T Bili 0.5 Bilirubin, Serum Direct - Conjugated 0.1 ALKP 46 Alanine Aminotransferase, Serum 13 T Pro 5.9 L Complete Blood Count + Differential 07-Apr-2023 01:24:00 ResultValue White Blood Cell Count 14.3 H Nucleated Erythrocyte Count 0.0 Red Blood Cell Count 3.75 L HGB 10.3 L HCT 31.9 L MCV 85 MCHC 32.3 PLT 299 RDW-CV 17.9 H Neutrophil % 77.5 Immature Granulocytes % 0.6 Lymphocyte % 12.5 Monocyte % 9 (more content not included)...[facility]07-15-2023 Hospital Discharge instructions Patient Education 04/06/2023 22:42:06 Nausea and Vomiting, Adult, Gads-gj-Ntnr Nausea and Vomiting, Adult Nausea is feeling sick to your stomach or feeling that you are about to throw up (vomit). Vomiting is when food in your stomach is thrown up and out of the mouth. Throwing up can make you feel weak. It can also make you lose too much water in your body (get dehydrated). If you lose too much water in your body, you may: Feel tired. Feel thirsty. Have a dry mouth. Have cracked lips. Go pee (urinate) less often. Older adults and people with other diseases or a weak body defense system (immune system) are at higher risk for losing too much water in the body. If you feel sick to your stomach and you throw up, it is important to follow instructions from your doctor about how to take care of yourself. Follow these instructions at home: Watch your symptoms for any changes. Tell your doctor about them. Follow these instructions to carefor yourself at home. Eating and drinking Take an ORS (oral rehydration solution). This is a drink that is sold at pharmacies and stores. Drink clear fluids in small amounts as you are able, such as: ?Water. ?Ice chips. ?Fruit juice that has water added (diluted fruit juice). ?Low-calorie sports drinks. Eat bland, ileg-wm-jscoil foods in small amounts as you are able, such as: ?Bananas. ?Applesauce. ?Rice. ?Low-fat (lean) meats. ?[place]. ?Crackers. Avoid drinking fluids that have a lot of sugar or caffeine in them. This includes energy drinks, sports drinks, and soda. Avoid alcohol. Avoid spicy or fatty foods. General instructions Take tbec-wsj-qgciqhc and prescription medicines only as told by your doctor. Drink enough fluid to keep your pee (urine) pale yellow. Wash your hands often with soap and water. If you cannot use soap and water, use hand pet handler. Make sure that all people in your home wash their hands well and often. Rest at home while you get better. Watch your condition for any changes. Take slow and deep breaths when you feel sick to your stomach. Keep all follow-up visits as told by your doctor. This is important. Contact a doctor if: Your symptoms get worse. You have new symptoms. You have a fever. You cannot drink fluids without throwing up. You feel sick to your stomach for more than 2 days. You feel light-headed or dizzy. You have a headache. You have muscle cramps. You have a rash. You have pain while peeing. Get help right away if: You have pain in your chest, neck, arm, or jaw. You feel very weak or you pass out (faint). You throw up again and again. You have throw up that is bright red or looks like black coffee grounds. You have bloody or black poop (stools) or poop that looks like tar. You have a very bad headache, a stiff neck, or both. You have very bad pain, cramping, or bloating in your belly (abdomen). You have trouble breathing. You are breathing very quickly. Your heart is beating very quickly. Your skin feels cold and clammy. You feel confused. You have signs of losing too much water in your body, such as: ?Dark pee, very little pee, or no pee. ?Cracked lips. ?Dry mouth. ?Sunken eyes. ?Sleepiness. ?Weakness. These symptoms may be an emergency. Do not wait to see if the symptoms will go away. Get medical help right away. Call your local emergency services (911 in the [place] Do not drive yourself to the hospital. Summary Nausea is feeling sick to your stomach or feeling that you are about to throw up (vomit). Vomiting is when food in your stomach is thrown up and out of the mouth. Follow instructions from your doctor about eating and drinking to keep from losing too much water in your body. Take pwaq-uvc-vindzkb and prescription medicines only as told by your doctor. Contact your doctor if your symptoms get worse or you have new symptoms. Keep all follow-up visits as told by your doctor. This is important. This information is not intended to replace advice given to you by your health care provider. Make sure you discuss any questions you have with your health care provider. Document Released: 02/26/2009 Document Revised: 01/02/2020 Document Reviewed: 02/18/2019 XO1 Patient Education 2020 [employer]. Follow Up Care 04/06/2023 20:09:30 With:PRERNA LEMUS DO Address: [address] [place] [phone] When:1-2 days [facility] 07-14-2023 Note Discharge Instructions Thank you for allowing [facility] to assist you with your healthcare needs. The following is importantdischarge information regarding your hospital visit. Your Care Team PRERNA LEMUS DO Your Diagnosis Abdominal pain What to do next Follow Up Appointments Follow Up with PRERNA LEMUS DO When Within 1-2 days Where: [address] [place] [phone] The Following Activity and Diet Have Been Ordered for You No qualifying data available. No qualifying data available. The Following Equipment Has Been Ordered for You No qualifying data available. The Following Treatments Have Been Ordered for You Discharge Labs No qualifying data available. Discharge Radiology No qualifying data available. Other Therapies No qualifying data available. Post Acute Orders No qualifying data available. Someone Will Contact You Regarding These Home Health Referrals No home referrals have been ordered for you. No one will call you. Allergies Macrobid Zoloft meloxicam penicillin Medications Please ask your primary doctor or pharmacist before taking any other medication not listed, including over the counter drugs, herbal medications, vitamins and or supplements as they may interact withyour home medications. What How Much When Why Instructions Last Dose New HYDROmorphone (Dilaudid) 1 Milligram IV Push Every 2 hours as needed for Pain, scale 7-10 New HYDROmorphone (Dilaudid) 0.5 Milligram IV Push Every 2 hours as needed for Pain, scale 4-6 New meropenem (meropenem 500 mg intravenous injection) 500 Milligram IV Piggyback Every 8 hours New ondansetron (Zofran) 4 Milligram IV Push Every 4 hours as needed for Nausea/Vomiting New vancomycin (vancomycin 1 g/ 200 mL intravenous solution) 200 Milliliter IV Piggyback Every 24 hours Changed amLODIPine (amLODIPine 10 mg oral tablet) 1 tab(s) by mouth Once a day Changed amLODIPine (amLODIPine 10 mg oral tablet) 1 tab(s) by mouth Once a day Changed atorvastatin (atorvastatin 40 mg oral tablet) 1 tab(s) by mouth Daily at bedtime Changed atorvastatin (atorvastatin 40 mg oral tablet) 1 tab(s) by mouth Daily at bedtime Changed citalopram (citalopram 40 mg oral tablet) 1 tab(s) by mouth Once a day Changed citalopram (citalopram 40 mg oral tablet) 1 tab(s) by mouth Once a day Changed clopidogrel (clopidogrel 75 mg oral tablet) 1 tab(s) by mouth Once a day Changed clopidogrel (clopidogrel 75 mg oral tablet) 1 tab(s) by mouth Once a day Changed dicyclomine (dicyclomine 20 mg oral tablet) 2 tab(s) by mouth Four (4) times a day as needed for abdominal discomfort Changed dicyclomine (dicyclomine 20 mg oral tablet) 2 tab(s) by mouth Four (4) times a day as needed for abdominal discomfort Changed fenofibrate (fenofibrate 145 mg oral tablet) 1 tab(s) by mouth Once a day Changed fenofibrate (fenofibrate 160 mg oral tablet) 1 tab(s) by mouth Once a day Changed pantoprazole (Protonix IV Push) 40 Milligram IV Push Two (2) times daily before meals Changed promethazine (promethazine 25 mg oral tablet) 1 tab(s) by mouth Every 6 hours Changed promethazine (promethazine 25 mg oral tablet) 1 tab(s) by mouth Every 6 hours Duration: 3 Days Changed traZODone (traZODone 100 mg oral tablet) 1 tab(s) by mouth Daily at bedtime Changed traZODone (traZODone 50 mg oral tablet) 2 tab(s) by mouth Daily at bedtime Unchanged metoprolol (Metoprolol Succinate ER 25 mg oral TABLET extended release) 1 tab(s) by mouth Once a day Unchanged prochlorperazine (Compazine use prochlorperazine ) 10 Milligram by mouth Three (3) times a day Abdominal pain Duration: 3 Days What How Much When Comments Stop Taking lisinopril (lisinopril 20 mg oral tablet) 1 tab(s) by mouth Two (2) times a day Stop Taking meloxicam (meloxicam 15 mg oral tablet) 1 tab(s) by mouth Once a day as needed for Pain Stop Taking sucralfate (sucralfate 1 g oral tablet) 1 tab(s) by mouth Four (4) times a day Please take this list to your next doctor s visit. Bring all medications you take, including over the counter medications, herbals and other supplements with you to your doctor s visit. Patients and families are reminded to discard old lists and to update any records with all medication providers or retail pharmacies. Education Materials Nausea and Vomiting, Adult Nausea is feeling sick to your stomach or feeling that you are about to throw up (vomit). Vomiting is when food in your stomach is thrown up and out of the mouth. Throwing up can make you feel weak. It can also make you lose too much water in your body (get dehydrated). If you lose too much water in your body, you may: Feel tired. Feel thirsty. Have a dry mouth. Have cracked lips. Go pee (urinate) less often. Older adults and people with other diseases or a weak body defense system (immune system) are at higher risk for losing too much water in the body. If you feel sick to your stomach and you throw up, it is important to follow instructions from your doctor about how to take care of yourself. Follow these instructions at home: Watch your symptoms for any changes. Tell your doctor about them. Follow these instructions to carefor yourself at home. Eating and drinking Take an ORS (oral rehydration solution). This is a drink that is sold at pharmacies and stores. Drink clear fluids in small amounts as you are able, such as: ? Water. ? Ice chips. ? Fruit juice that has water added (diluted fruit juice). ? Low-calorie sports drinks. Eat bland, dhal-uy-ryqrps foods in small amounts as you are able, such as: ? Bananas. ? Applesauce. ? Rice. ? Low-fat (lean) meats. ? [place]. ? Crackers. Avoid drinking fluids that have a lot of sugar or caffeine in them. This includes energy drinks, sports drinks, and soda. Avoid alcohol. Avoid spicy or fatty foods. General instructions Take kkbg-ahg-lfjmycd and prescription medicines only as told by your doctor. Drink enough fluid to keep your pee (urine) pale yellow. Wash your hands often with soap and water. If you cannot use soap and water, use hand pet handler. Make sure that all people in your home wash their hands well and often. Rest at home while you get better. Watch your condition for any changes. Take slow and deep breaths when you feel sick to your stomach. Keep all follow-up visits as told by your doctor. This is important. Contact a doctor if: Your symptoms get worse. You have new symptoms. You have a fever. You cannot drink fluids without throwing up. You feel sick to your stomach for more than 2 days. You feel light-headed or dizzy. You have a headache. You have muscle cramps. You have a rash. You have pain while peeing. Get help right away if: You have pain in your chest, neck, arm, or jaw. You feel very weak or you pass out (faint). You throw up again and again. You have throw up that is bright red or looks like black coffee grounds. You have bloody or black poop (stools) or poop that looks like tar. You have a very bad headache, a stiff neck, or both. You have very bad pain, cramping, or bloating in your belly (abdomen). You have trouble breathing. You are breathing very quickly. Your heart is beating very quickly. Your skin feels cold and clammy. You feel confused. You have signs of losing too much water in your body, such as: ? Dark pee, very little pee, or no pee. ? Cracked lips. ? Dry mouth. ? Sunken eyes. ? Sleepiness. ? Weakness. These symptoms may be an emergency. Do not wait to see if the symptoms will go away. Get medical help right away. Call your local emergency services (911 in the [place] Do not drive yourself to the hospital. Summary Nausea is feeling sick to your stomach or feeling that you are about to throw up (vomit). Vomiting is when food in your stomach is thrown up and out of the mouth. Follow instructions from your doctor about eating and drinking to keep from losing too much water in your body. Take ofaf-ren-fcvaals and prescription medicines only as told by your doctor. Contact your doctor if your symptoms get worse or you have new symptoms. Keep all follow-up visits as told by your doctor. This is important. This information is not intended to replace advice given to you by your health care provider. Make sure you discuss any questions you have with your health care provider. Document Released: 02/26/2009 Document Revised: 01/02/2020 Document Reviewed: 02/18/2019 XO1 Patient Education 2020 [employer]. Additional Information VACCINATE! IT SAVES LIVES! Members of the community who have not yet received the COVID-19 vaccine and would like to receive it can visit one of [facility] vaccine clinics. There are many vaccine clinic locations within the [facility]. For locations and available times, please visit https://gettheshot.coronavirus.[place].gov/. It is important to note that some COVID mobile vaccine clinics are held outdoors and may be canceled in rainy or stormy conditions. To learn more about pediatric vaccinations (ages 5-11), we invite you to visit the [facility] webpage. [email or web address] learn more about the COVID-19 vaccine, we invite you to visit the CDC website for a list of frequently asked questions.https://www.cdc.gov/coronavirus/2019-ncov/vaccines/faq.html [facility] Patient Portal Access Instructions: Stay connected with your healthcare team and access your personal medical information anytime with the [email or web address] Patient Portal. Please follow the directions below to create your [email or web address] account: 1.Access the email account you provided upon registration to the hospital/physician office.2.Look for an invitation email from [facility].3.Open the email and access the invitation link: AcceptInvitation to [email or web address].4.Fill in the required roth to create your account. To access your account, visit [facility]. Click the blue button labeled Access Patient Portal and then log in with the username and password that you created in the steps above. You will be able to view your test results, lab results, a summary of your visits, upcoming appointments and more. There is also a convenient messaging option where you can send secure messages to your [employer]. In addition, you will have the ability to download any documents or summaries to your computer and/or send the information securely to a physician. Remember that your healthcare information is confidential, so carefully consider who you will allowto register on the [facility] Patient Portal for access to your information. You can also access the [facility] Patient Portal on the [facility]. Simply click on Patient Portal and then log into your account. If you would like to receive a full copy of your medical records, please contact the [facility] Medical Records Department by calling [phone], Sunday through Sunday between 8 a.m. and 4:30 p.m. HOW TO SAFELY DISPOSE OF PRESCRIPTION MEDICATIONS Please use one of the following methods to safely dispose of your unused medications. 1.Use a drug disposal kit: the drug disposal pouch allows you to safely discard your old and unuseddrugs. Ask your nurse to give you one when you are discharged.2.Visit a local take-back location: Many local pharmacies and police departments have programs that collect old and unwanted prescriptiondrugs. Call your local pharmacy or go to http://bit.IQMS/6O6Nw7h to find one close to you.3.Make use of household items: Use cat litter or old coffee grounds to dispose medications if other options arenot available. Mix your drugs with these household products, seal them in an airtight container andthrow it into the garbage. Call [facility]: [phone] to be sure your drugs can be disposed of in this way. Some medicines may require a different approach.4.Never flush your medications down the toilet. IF YOU HAVE BEEN PRESCRIBED AN OPIOID FOR PAIN If you have been prescribed an opioid (such as hydrocodone, oxycodone or morphine), it is critical to understand the possible side effects and risks of opioid pain medications. Even when taken as directed, opioids can have several side effects including: Tolerance, meaning you might need to take more of a medication for the same pain relief. Nausea, vomiting and/or constipation. Sleepiness, dizziness, dry mouth, confusion, depression or itching. Physical dependence, meaning you have withdrawal symptoms when a medication is stopped, can develop within a few days. KNOW YOUR RESPONSIBILITIES It is important to know exactly how much and how often to take the opioid pain medications you are prescribed. Never take opioids in higher amounts or more often than prescribed. Do not combine opioids with alcohol or other drugs that cause drowsiness, such as benzodiazepines, also known as benzos, including diazepam and alprazolam, muscle relaxants or sleep aids. Never sell or share prescription opioids. This is illegal. Store opioids in a secure place and out of reach of others (including children, family, friends and visitors). The last page of this document has been signed and retained as a CHART COPY. Signatures Patient Education Materials Nausea and Vomiting, Adult, Irou-qf-Ruwz Medication Leaflets My discharge plan and instructions have been reviewed and explained to me and IFILI DANIEL F understand my current condition and have read and understand these discharge instructions. I have received a written copy of the plan/instructions. If I have questions, I am aware that I should contact my doctor. 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 Signature: Date/Time: Relationship to Patient: Witness Name/Signature: Date/Time: [id number] History and physical note Date of Service 04/06/2023 Chief Complaint Chest pain, N/V History of Present Illness 62 yo M w/a PMH consistent with cyclic vomiting syndrome, HTN, HLP, CAD, Marti's esophagus who presented to [facility] with the complaint of intractable nausea/vomiting in the setting of [facility].He endorses intermittent marijuana use and has had multiple ED visits over the last year for the afo rementioned complaint. Reflex CT in [facility] revealed: Locules of air adjacent to the distal esophagus/hiatal hernia withinthe lower mediastinum. 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 Transfer to was initiated. Upon arrival, our service immediately initiated transfer to . Labs: CBC with WBC of 22.5, Hgb: 11.4. CMP with sCr: 2.05. EKG pending. Started on Vanc/Meropenem and LR MIV. On exam patient states that he has had intermittently hematemesis. Denies active CP, SOB, NVD. Someintermittent sharp abdominal pain. Vital signs stable. Review of Systems Complete detailed review of systems obtained and all pertinent positives and negatives are noted inthe history of present illness. Physical Exam Vitals and Measurements HT: 177.8 cm WT: 84.1 kg BMI: 26.6 Weight Dosing Weight: 84.1 kg (04/06/23) Physical Examination General: No apparent distress. Alert and appropriate. HEENT: NCAT EOMI Neck: Supple. No appreciable elevation in JVP. Cardiovascular: S1 S2 normal. No extra-audible heart tones. Respiratory: Bilaterally clear breath sounds with no crepitation or wheeze. Abdominal: Soft, minimal epigastric tenderness and nonrigid. No guarding. Bowel sounds present. Extremities: No edema. Adequate peripheral circulation. Neurological: Grossly intact without focal deficit. Cerebellar function preserved. Skin: Intact. Dry. No rash. Lab Results No 36 Hour Lab Data Imaging Results and Diagnostics IMPRESSION: CTAP Locules of air adjacent to the distal esophagus/hiatal hernia within the lower mediastinum. 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 Critical results were called by Dr. Wai Willams to Dr. Marcus On 04/06/2023 at 08:40. Reviewed EKG Ordered, pending Assessment/Plan Boerhaave Syndrome Intractable Nausea/Vomiting Cyclic Vomiting Syndrome CAD HTN HLP Patient was transferred to from [facility] during the day out of concern for Boerhaave's syndrome found on CT that resulted this AM. Upon arrival to the floor consult placed to thoracic surgery, after speaking with them they recommended transfer to as thoracic here has limited capabilities for esophageal surgery. I conferenced with transfer line and patient was accepted by Thoracic surgery and is to be transferred within the next 12 hrs. Meanwhile, patient initiated on protonix IV, IV Vanc/Meropenem, and MIV 100 cc/hr LR. IV Zofran fornausea. Continue home meds for CAD, HTN, HLP. Problem List/Past Medical History Ongoing Coronary artery disease Hypertension Historical No qualifying data Procedure/Surgical History Hernia Wrist Cholecystectomy Marti esophagus Medications Home Medications (15) Active amLODIPine 10 mg oral tablet 10 mg = 1 tab(s), Oral, qDay atorvastatin 40 mg oral tablet 40 mg = 1 tab(s), Oral, qHS citalopram 40 mg oral tablet 40 mg = 1 tab(s), Oral, qDay clopidogrel 75 mg oral tablet 75 mg = 1 tab(s), Oral, qDay Compazine use prochlorperazine 10 mg, Oral, TID dicyclomine 20 mg oral tablet 40 mg = 2 tab(s), PRN, Oral, QID fenofibrate 145 mg oral tablet 145 mg = 1 tab(s), Oral, qDay lisinopril 20 mg oral tablet 20 mg = 1 tab(s), Oral, BID meloxicam 15 mg oral tablet 15 mg = 1 tab(s), PRN, Oral, qDay Metoprolol Succinate ER 25 mg oral TABLET extended release 25 mg = 1 tab(s), Oral, qDay pantoprazole 40 mg oral enteric coated tablet 40 mg = 1 tab(s), Oral, qDayAC promethazine 25 mg oral tablet 25 mg = 1 tab(s), Oral, q6h promethazine 25 mg rectal suppository 25 mg = 1 supp, Rectal, q6h sucralfate 1 g oral tablet 1 gram(s) = 1 tab(s), Oral, QID traZODone 50 mg oral tablet 100 mg = 2 tab(s), Oral, qHS Allergies Macrobid Zoloft meloxicam penicillin Social History Alcohol - No Risk, 06/25/2022 Use: Past., 01/15/2023 Home/Environment Living situation: Home with assistance. Safe place to go: Yes. Current Home Treatments Blood Pressure monitoring, cpap, pulse ox., 01/15/2023 Nutrition/Health Type of diet: Regular, Low sodium. Appetite Poor. Eating Difficulties None. Enteral Feedings No. TPN Feedings No. Skin Breakdown No., 01/15/2023 Substance Abuse - No Risk, 06/25/2022 Use: Never., 01/15/2023 Tobacco - High Risk, 06/25/2022 Nicotine Use: Cigars or pipes daily within last 30 days. Type: Cigars. Tobacco use per day: 4., 01/15/2023 Nicotine Use: 10 or more cigarettes (1/2 pack or more)/day in last 30 days. Type: Cigarettes., 06/25/2022 Family History Cancer: Brother. Heart attack: Mother and Father. Leukemia: Brother. Immunizations pneumococcal 23-valent vaccine(Pneumovax: 0 unknown unit (11/27/15) SARS-CoV-2 mRNA (tozinameran) vaccine: 0.3 unknown unit (09/28/21) Code Status Code Status - Ordered -- 04/06/23 20:28:00 EDT, Full Code, Constant Order Digitally Signed by TREY VARGAS DO on 04/06/2023 10:17 PM [facility] [id number] Evaluation + Plan note Diagnostic Tests Pending * Urine Culture 04/06/23 [facility] 07-14-2023 Evaluation + Plan noteExtracted from: Title:History and Physical Author:TREY VARGAS Date:04/06/23 Boerhaave Syndrome Intractable Nausea/Vomiting Cyclic Vomiting Syndrome CAD HTN HLP Patient was transferred to from [facility] during the day out of concern for Boerhaave's syndrome found on CT that resulted this AM. Upon arrival to the floor consult placed to thoracic surgery, after speaking with them they recommended transfer to as thoracic here has limited capabilities for esophageal surgery. I conferenced with transfer line and patient was accepted by Thoracic surgery and is to be transferred within the next 12 hrs. Meanwhile, patient initiated on protonix IV, IV Vanc/Meropenem, and MIV 100 cc/hr LR. IV Zofran for nausea. Continue home meds for CAD, HTN, HLP. [facility] 07-14-2023 Note ORIGINAL EXAMINATION: CT OF THE CHEST WITHOUT CONTRAST04/06/2023 8:28 am TECHNIQUE: CT of the chest was performed without the administration of intravenous contrast. Multiplanar reformatted images are provided for review. Automated exposure control, iterative reconstruction, and/or weight based adjustment of the mA/kV was utilized to reduce the radiation dose to as low as reasonably achievable. COMPARISON: Same day CT abdomen/pelvis HISTORY: ORDERING SYSTEM PROVIDED HISTORY: Reason for Exam: Air in mediastinum FINDINGS: The heart size is within normal limits. There is no pericardial thickening or effusion. Multi-vessel coronary artery stents and/or calcifications. Nonaneurysmal, atherosclerotic thoracic aorta. Locules of air adjacent to a small to moderate hiatal hernia within the lower mediastinum, beginning just inferior to the leonard and extending a few cm inferiorly. The visualized trachea and mainstem bronchi are patent. No pleural effusion, pneumothorax, or focal consolidation. Scattered areas of pleural and parenchymal scarring. No lymphadenopathy within the limits of a noncontrast study. No acute osseous abnormality. No aggressive osseous lesions. Varying degrees of multifocal degenerative change. The abdomen is dictated separately. IMPRESSION: Locules of air adjacent to the distal esophagus/hiatal hernia within the lower mediastinum. 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 Critical results were called by Dr. Wai Willams to Dr. Marcus On 04/06/2023 at 08:40. I have reviewed this report and agree with the resident findings and interpretation. Interpreted by: Mainor Sandoval MD Preliminary Report By: Wai Willams Electronically signed By Mainor Sandoval MD Dictated Date: 04/06/2023 8:31:35 AM Prelim Date: 04/06/2023 8:45:40 AM Sign Date: 04/06/2023 9:04:26 AM Ordering Provider: [facility]07-14-2023 Note ORIGINAL EXAMINATION: CT OF THE CHEST WITHOUT CONTRAST04/06/2023 8:28 am TECHNIQUE: CT of the chest was performed without the administration of intravenous contrast. Multiplanar reformatted images are provided for review. Automated exposure control, iterative reconstruction, and/or weight based adjustment of the mA/kV was utilized to reduce the radiation dose to as low as reasonably achievable. COMPARISON: Same day CT abdomen/pelvis HISTORY: ORDERING SYSTEM PROVIDED HISTORY: Reason for Exam: Air in mediastinum FINDINGS: The heart size is within normal limits. There is no pericardial thickening or effusion. Multi-vessel coronary artery stents and/or calcifications. Nonaneurysmal, atherosclerotic thoracic aorta. Locules of air adjacent to a small to moderate hiatal hernia within the lower mediastinum, beginning just inferior to the leonard and extending a few cm inferiorly. The visualized trachea and mainstem bronchi are patent. No pleural effusion, pneumothorax, or focal consolidation. Scattered areas of pleural and parenchymal scarring. No lymphadenopathy within the limits of a noncontrast study. No acute osseous abnormality. No aggressive osseous lesions. Varying degrees of multifocal degenerative change. The abdomen is dictated separately. IMPRESSION: Locules of air adjacent to the distal esophagus/hiatal hernia within the lower mediastinum. 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 Critical results were called by Dr. Wai Willams to Dr. Marcus On 04/06/2023 at 08:40. I have reviewed this report and agree with the resident findings and interpretation. Interpreted by: Mainor Sandoval MD Preliminary Report By: Wai Willams Electronically signed By Mainor Sandoval MD Dictated Date: 04/06/2023 8:31:35 AM Prelim Date: 04/06/2023 8:45:40 AM Sign Date: 04/06/2023 9:04:26 AM Ordering Provider: [facility]07-14-2023 Note ORIGINAL EXAMINATION: CT OF THE ABDOMEN AND PELVIS WITH CONTRAST 04/06/2023 7:04 am TECHNIQUE: CT of the abdomen and pelvis was performed with the administration of intravenous contrast. Multiplanar reformatted images are provided for review. Automated exposure control, iterative reconstruction, and/or weight based adjustment of the mA/kV was utilized to reduce the radiation dose to as low as reasonably achievable. COMPARISON: CT abdomen pelvis 03/09/2023, 01/15/2023 HISTORY: ORDERING SYSTEM PROVIDED HISTORY: Reason for Exam: pain, N/V, marked leukocytosis FINDINGS: Degenerative changes of the spine. Moderate sized hiatal hernia. The included thoracic structures are otherwise unremarkable. Normal liver. Status post cholecystectomy. Scattered calcified granulomas in the spleen. Otherwise, normal spleen and pancreas. There is bilateral adrenal gland thickening with a few nodules, similar in appearance. There are bilateral simple renal cysts measuring up to 7.7 cm on the left. Indeterminate right midpole renal lesion measures up to 2.5 cm (previously 2.7 cm). Nonaneurysmal abdominal aorta. No abdominal lymphadenopathy, free fluid, or intraperitoneal free air identified. Diverticulosis without diverticulitis. The small bowel is unremarkable. Normal appendix. The urinary bladder is under distended limiting evaluation. Pelvic organs are otherwise unremarkable. Small fat containing left inguinal hernia. IMPRESSION: Diverticulosis without diverticulitis. Stable indeterminate right midpole renal lesion. Nonemergent renal ultrasound or MR may be obtained for further characterisation. Similar appearing adrenal thickening without underlying hypodensities may reflect benign adrenal adenomas. Further evaluation with adrenal CT or MR protocol to be considered. Small quantity of gas anterior to the distal esophagus which is only partially visualized on this exam could potentially represent free air in the mediastinum, CT thorax could be useful in further evaluation. Findings could potentially represent esophageal perforation. I have personally reviewed the images of this examination and agree with the resident's findings and interpretation. Interpreted by: Sandeep Grey MD Preliminary Report By: Manuel Gutierrez Electronically signed By Sandeep Grey MD Dictated Date: 04/06/2023 7:11:17 AM Prelim Date: 04/06/2023 7:22:46 AM Sign Date: 04/06/2023 7:41:51 AM Ordering Provider: [facility]07-14-2023 Note ORIGINAL EXAMINATION: CT OF THE ABDOMEN AND PELVIS WITH CONTRAST 04/06/2023 7:04 am TECHNIQUE: CT of the abdomen and pelvis was performed with the administration of intravenous contrast. Multiplanar reformatted images are provided for review. Automated exposure control, iterative reconstruction, and/or weight based adjustment of the mA/kV was utilized to reduce the radiation dose to as low as reasonably achievable. COMPARISON: CT abdomen pelvis 03/09/2023, 01/15/2023 HISTORY: ORDERING SYSTEM PROVIDED HISTORY: Reason for Exam: pain, N/V, marked leukocytosis FINDINGS: Degenerative changes of the spine. Moderate sized hiatal hernia. The included thoracic structures are otherwise unremarkable. Normal liver. Status post cholecystectomy. Scattered calcified granulomas in the spleen. Otherwise, normal spleen and pancreas. There is bilateral adrenal gland thickening with a few nodules, similar in appearance. There are bilateral simple renal cysts measuring up to 7.7 cm on the left. Indeterminate right midpole renal lesion measures up to 2.5 cm (previously 2.7 cm). Nonaneurysmal abdominal aorta. No abdominal lymphadenopathy, free fluid, or intraperitoneal free air identified. Diverticulosis without diverticulitis. The small bowel is unremarkable. Normal appendix. The urinary bladder is under distended limiting evaluation. Pelvic organs are otherwise unremarkable. Small fat containing left inguinal hernia. IMPRESSION: Diverticulosis without diverticulitis. Stable indeterminate right midpole renal lesion. Nonemergent renal ultrasound or MR may be obtained for further characterisation. Similar appearing adrenal thickening without underlying hypodensities may reflect benign adrenal adenomas. Further evaluation with adrenal CT or MR protocol to be considered. Small quantity of gas anterior to the distal esophagus which is only partially visualized on this exam could potentially represent free air in the mediastinum, CT thorax could be useful in further evaluation. Findings could potentially represent esophageal perforation. I have personally reviewed the images of this examination and agree with the resident's findings and interpretation. Interpreted by: Sandeep Grey MD Preliminary Report By: Manuel Gutierrez Electronically signed By Sandeep Gery MD Dictated Date: 04/06/2023 7:11:17 AM Prelim Date: 04/06/2023 7:22:46 AM Sign Date: 04/06/2023 7:41:51 AM Ordering Provider: [facility]07-04-2023 Hospital Discharge instructions Patient Education 03/27/2023 16:41:12 Vomiting (Adult) Vomiting (Adult) Vomiting is a common symptom that may be due to different causes. These include gastroenteritis (stomach flu), food poisoning and gastritis. There are other more serious causes of vomiting which may be hard to diagnose early in the illness. Therefore, it is important to watch for the warning signs listed below. The main danger from repeated vomiting is dehydration. This is due to excess loss of water and minerals from the body. When this occurs, your body fluids must be replaced. Home care If symptoms are severe, rest at home for the next 24 hours. Because your symptoms may be from an infection, wash your hands often and well. If soap and water are not available, use alcohol-based pet handler to keep from spreading the infection to others. Wash your hands for at least 20 seconds. Humming the happy birthday song twice while you wash is aneasy way to make sure you've washed for 20 seconds. Wash your hands after using the toilet, before and after preparing food, before eating food, after changing a diaper, cleaning a wound, caring for a sick person, and blowing your nose, coughing, or sneezing. You should also wash your hands after caring for someone who is sick, touching pet food, ortreats, and touching an animal, or animal waste. You may use acetaminophen or NSAID medicines like ibuprofen or naproxen to control fever, unless another medicine was prescribed. If you have chronic liver or kidney disease or ever had a stomach ulcer or gastrointestinal bleeding, talk with your doctor before using these medicines. Aspirin should never be used in anyone under 18 years of age who is ill with a fever. It may cause severe liver damage. Don't use NSAID medicines if you are already taking one for another condition (like arthritis) or are on aspirin (such as for heart disease, or after a stroke) Don't use tobacco and or drink alcohol, which may worsen your symptoms. If medicines for vomiting were prescribed, take as directed. Once vomiting stops, then follow these guidelines: During the first 12 to 24 hours follow the diet below: Fruit juices. Apple, grape juice, clear fruit drinks, and electrolyte replacement drinks. Beverages. Soft drinks without caffeine; mineral water (plain or flavored), decaffeinated tea and coffee. Soups. Clear broth and bouillon Desserts. Plain gelatin, ice pops, and fruit juice bars. As you feel better, you may add 6 to 8 ounces of yogurt per day. During the next 24 hours you may add the following to the above: Hot cereal, plain toast, bread, rolls, crackers Plain noodles, rice, mashed potatoes, chicken noodle or rice soup Unsweetened canned fruit such as applesauce, bananas (avoid pineapple and citrus) Limit caffeine and chocolate. No spices or seasonings except salt. During the next 24 hours: Gradually resume a normal diet, as you feel better and your symptoms lessen. Follow-up care Follow up with your healthcare provider, or as advised. When to seek medical advice Call your healthcare provider right away if any of these occur: Constant right-sided lower belly pain or increasing general belly pain Continued vomiting (unable to keep liquids down) for 24 hours Vomiting blood or coffee grounds Swollen belly Frequent diarrhea (more than 5 times a day); blood (red or black color) or mucus in diarrhea Reduced urine output or extreme thirst Weakness, dizziness or fainting Unusually drowsy or confused Fever of 100.4 F (38 C) oral or higher, or as directed Yellow color of the eyes or skin [id number] [employer]. [address] [place], [place] [address]. All rights reserved. This information is not intended as a substitute for professional medical care. Always follow yourhealthcare professional's instructions. Follow Up Care 03/27/2023 14:22:32 With:PRERNA LEMUS DO Address: [address] [place] [phone] When:2-4 days [facility] 07-04-2023 Note Discharge Instructions Thank you for allowing [facility] to assist you with your healthcare needs. The following is importantdischarge information regarding your hospital visit. Diagnosis from Today's Visit Cyclical vomiting Vomiting What to Do Next Instructions from Your Care Team No qualifying data available. Post Acute Orders No qualifying data available. You Need to Schedule the Following Appointments Follow Up with PRERNA LEMUS DO When Within 2-4 days Where: [address] [place] [phone] Allergies Macrobid Zoloft meloxicam penicillin Medications Please ask your primary doctor or pharmacist before taking any other medication not listed, including over the counter drugs, herbal medications, vitamins and or supplements as they may interact withyour home medications. What How Much When Why Instructions Last Dose Unchanged amLODIPine (amLODIPine 10 mg oral tablet) 1 tab(s) by mouth Once a day Unchanged atorvastatin (atorvastatin 40 mg oral tablet) 1 tab(s) by mouth Daily at bedtime Unchanged citalopram (citalopram 40 mg oral tablet) 1 tab(s) by mouth Once a day Unchanged clopidogrel (clopidogrel 75 mg oral tablet) 1 tab(s) by mouth Once a day Unchanged dicyclomine (dicyclomine 20 mg oral tablet) 2 tab(s) by mouth Four (4) times a day as needed for abdominal discomfort Unchanged fenofibrate (fenofibrate 145 mg oral tablet) 1 tab(s) by mouth Once a day Unchanged lisinopril (lisinopril 20 mg oral tablet) 1 tab(s) by mouth Two (2) times a day Unchanged meloxicam (meloxicam 15 mg oral tablet) 1 tab(s) by mouth Once a day as needed for Pain Unchanged metoprolol (Metoprolol Succinate ER 25 mg oral TABLET extended release) 1 tab(s) by mouth Once a day Unchanged pantoprazole (pantoprazole 40 mg oral enteric coated tablet) 1 tab(s) by mouth Once a day before a meal Unchanged prochlorperazine (Compazine use prochlorperazine ) 10 Milligram by mouth Three (3) times a day Abdominal pain Duration: 3 Days Unchanged promethazine (promethazine 25 mg oral tablet) 1 tab(s) by mouth Every 6 hours Duration: 3 Days Unchanged promethazine (promethazine 25 mg rectal suppository) 1 suppository(ies) in the rectum Every 6 hours Duration: 3 Days Unchanged sucralfate (sucralfate 1 g oral tablet) 1 tab(s) by mouth Four (4) times a day Unchanged traZODone (traZODone 50 mg oral tablet) 1 tab(s) by mouth Daily at bedtime Please take this list to your next doctor s visit. Bring all medications you take, including over the counter medications, herbals and other supplements with you to your doctor s visit. Patients and families are reminded to discard old lists and to update any records with all medication providers or retail pharmacies. Education Materials Vomiting (Adult) Vomiting is a common symptom that may be due to different causes. These include gastroenteritis (stomach flu), food poisoning and gastritis. There are other more serious causes of vomiting which may be hard to diagnose early in the illness. Therefore, it is important to watch for the warning signs listed below. The main danger from repeated vomiting is dehydration. This is due to excess loss of water and minerals from the body. When this occurs, your body fluids must be replaced. Home care If symptoms are severe, rest at home for the next 24 hours. Because your symptoms may be from an infection, wash your hands often and well. If soap and water are not available, use alcohol-based pet handler to keep from spreading the infection to others. Wash your hands for at least 20 seconds. Humming the happy birthday song twice while you wash is aneasy way to make sure you've washed for 20 seconds. Wash your hands after using the toilet, before and after preparing food, before eating food, after changing a diaper, cleaning a wound, caring for a sick person, and blowing your nose, coughing, or sneezing. You should also wash your hands after caring for someone who is sick, touching pet food, ortreats, and touching an animal, or animal waste. You may use acetaminophen or NSAID medicines like ibuprofen or naproxen to control fever, unless another medicine was prescribed. If you have chronic liver or kidney disease or ever had a stomach ulcer or gastrointestinal bleeding, talk with your doctor before using these medicines. Aspirin should never be used in anyone under 18 years of age who is ill with a fever. It may cause severe liver damage. Don't use NSAID medicines if you are already taking one for another condition (like arthritis) or are on aspirin (such as for heart disease, or after a stroke) Don't use tobacco and or drink alcohol, which may worsen your symptoms. If medicines for vomiting were prescribed, take as directed. Once vomiting stops, then follow these guidelines: During the first 12 to 24 hours follow the diet below: Fruit juices. Apple, grape juice, clear fruit drinks, and electrolyte replacement drinks. Beverages. Soft drinks without caffeine; mineral water (plain or flavored), decaffeinated tea and coffee. Soups. Clear broth and bouillon Desserts. Plain gelatin, ice pops, and fruit juice bars. As you feel better, you may add 6 to 8 ounces of yogurt per day. During the next 24 hours you may add the following to the above: Hot cereal, plain toast, bread, rolls, crackers Plain noodles, rice, mashed potatoes, chicken noodle or rice soup Unsweetened canned fruit such as applesauce, bananas (avoid pineapple and citrus) Limit caffeine and chocolate. No spices or seasonings except salt. During the next 24 hours: Gradually resume a normal diet, as you feel better and your symptoms lessen. Follow-up care Follow up with your healthcare provider, or as advised. When to seek medical advice Call your healthcare provider right away if any of these occur: Constant right-sided lower belly pain or increasing general belly pain Continued vomiting (unable to keep liquids down) for 24 hours Vomiting blood or coffee grounds Swollen belly Frequent diarrhea (more than 5 times a day); blood (red or black color) or mucus in diarrhea Reduced urine output or extreme thirst Weakness, dizziness or fainting Unusually drowsy or confused Fever of 100.4 F (38 C) oral or higher, or as directed Yellow color of the eyes or skin 8139-8925 [employer]. [address] [place] [address]. All rights reserved. This information is not intended as a substitute for professional medical care. Always follow yourhealthcare professional's instructions. Additional Information VACCINATE! IT SAVES LIVES! Members of the community who have not yet received the COVID-19 vaccine and would like to receive it can visit one of [facility] vaccine clinics. There are many vaccine clinic locations within the [facility]. For locations and available times, please visit [email or web address]/. It is important to note that some COVID mobile vaccine clinics are held outdoors and may be canceled in rainy or stormy conditions. To learn more about pediatric vaccinations (ages 5-11), we invite you to visit the [facility] webpage. https://www.[email or web address]/pages/[email or web address]-Ljhsj-Pbzobxbmage-Halcyzbjbo-Gbtsw-Dur stions.htmlTo learn more about the COVID-19 vaccine, we invite you to visit the CDC website for a list of frequently asked questions. https://www.cdc.gov/coronavirus/2019-ncov/vaccines/faq.html [facility] Access Instructions: Stay connected with your healthcare team and access your personal medical information anytime with the [email or web address] Patient Portal. If you would like a full copy of your medical records please contact the [facility] Medical Records Department Sunday through Sunday between 8a.m. and 4:30p.m. Please follow the directions below to access the portal: 1.Access the email account you provided upon registration to the [facility].2.Look for an invitation email from [facility].3.Open the email and access the invitation link: Accept Invitation to [facility]4.Fill in the required roth to create your account. Sign into [email or web address] with your username and password that you created in the above steps to stay up to date. You can then view a summary of results, a summary of your visits, and the ability to download your summaries to your computer or send the information securely to a physician. Remember that your healthcare information is confidential, so carefully consider who you will allow to register on the [facility] Patient Portal for access to your information. You can also access the [email or web address] Patient Portal on the [address]. Simply click on Health Records under [employer] and then click on the [facility] logo. HOW TO SAFELY DISPOSE OF PRESCRIPTION MEDICATIONS Please use one of the following methods to safely dispose of your unused medications. 1.Use a drug disposal kit: the drug disposal pouch allows you to safely discard your old and unuseddrugs. Ask your nurse to give you one when you are discharged.2.Visit a local take-back location: Many local pharmacies and police departments have programs that collect old and unwanted prescriptiondrugs. Call your local pharmacy or go to http://bit.IQMS/6H5Gp2i to find one close to you.3.Make use of household items: Use cat litter or old coffee grounds to dispose medications if other options arenot available. Mix your drugs with these household products, seal them in an airtight container andthrow it into the garbage. Call [facility]: [phone] to be sure your drugs can be disposed of in this way. Some medicines may require a different approach.4.Never flush your medications down the toilet. IF YOU HAVE BEEN PRESCRIBED AN OPIOIDS FOR PAIN If you have been prescribed an opioid (such as hydrocodone, oxycodone or morphine), it is critical to understand the possible side effects and risks of opioid pain medications. Even when taken as directed, opioids can have several side effects including: Tolerance, meaning you might need to take more of a medication for the same pain relief. Nausea, vomiting and/or constipation. Sleepiness, dizziness, dry mouth, confusion, depression or itching. Physical dependence, meaning you have withdrawal symptoms when a medication is stopped ? this can develop within a few days. KNOW YOUR RESPONSIBILITIES It is important to know exactly how much and how often to take the opioid pain medications you are prescribed. Never take opioids in higher amounts or more often than prescribed. Do not combine opioids with alcohol or other drugs that cause drowsiness, such as benzodiazepines, also known as benzos,including diazepam and alprazolam, muscle relaxants or sleep aids. Never sell or share prescriptionopioids. This is illegal. Store opioids in a secure place and out of reach of others (including children, family, friends and visitors). The last page(s) of this document has been signed and retained as a CHART COPY Signatures Patient Education Materials Vomiting (Adult) Medication Leaflets My discharge plan and instructions have been reviewed and explained to me and I,TRUONG ROSARIO understand my current condition and have read and understand these discharge instructions. I have received a written copy of the plan/instructions. If I have questions, I am aware that I should contact my doctor. 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 These include gastroenteritis (stomach flu), food poisoning and gastritis. There are other more serious causes of vomiting which may be hard to diagnose early in the illness. Therefore, it is important to watch for the warning signs listed below. The main danger from repeated vomiting is dehydration. This is due to excess loss of water and minerals from the body. When this occurs, your body fluids must be replaced. Home care If symptoms are severe, rest at home for the next 24 hours. Because your symptoms may be from an infection, wash your hands often and well. If soap and water are not available, use alcohol-based pet handler to keep from spreading the infection to others. Wash your hands for at least 20 seconds. Humming the happy birthday song twice while you wash is aneasy way to make sure you've washed for 20 seconds. Wash your hands after using the toilet, before and after preparing food, before eating food, after changing a diaper, cleaning a wound, caring for a sick person, and blowing your nose, coughing, or sneezing. You should also wash your hands after caring for someone who is sick, touching pet food, ortreats, and touching an animal, or animal waste. You may use acetaminophen or NSAID medicines like ibuprofen or naproxen to control fever, unless another medicine was prescribed. If you have chronic liver or kidney disease or ever had a stomach ulcer or gastrointestinal bleeding, talk with your doctor before using these medicines. Aspirin should never be used in anyone under 18 years of age who is ill with a fever. It may cause severe liver damage. Don't use NSAID medicines if you are already taking one for another condition (like arthritis) or are on aspirin (such as for heart disease, or after a stroke) Don't use tobacco and or drink alcohol, which may worsen your symptoms. If medicines for vomiting were prescribed, take as directed. Once vomiting stops, then follow these guidelines: During the first 12 to 24 hours follow the diet below: Fruit juices. Apple, grape juice, clear fruit drinks, and electrolyte replacement drinks. Beverages. Soft drinks without caffeine; mineral water (plain or flavored), decaffeinated tea and coffee. Soups. Clear broth and bouillon Desserts. Plain gelatin, ice pops, and fruit juice bars. As you feel better, you may add 6 to 8 ounces of yogurt per day. During the next 24 hours you may add the following to the above: Hot cereal, plain toast, bread, rolls, crackers Plain noodles, rice, mashed potatoes, chicken noodle or rice soup Unsweetened canned fruit such as applesauce, bananas (avoid pineapple and citrus) Limit caffeine and chocolate. No spices or seasonings except salt. During the next 24 hours: Gradually resume a normal diet, as you feel better and your symptoms lessen. Follow-up care Follow up with your healthcare provider, or as advised. When to seek medical advice Call your healthcare provider right away if any of these occur: Constant right-sided lower belly pain or increasing general belly pain Continued vomiting (unable to keep liquids down) for 24 hours Vomiting blood or coffee grounds Swollen belly Frequent diarrhea (more than 5 times a day); blood (red or black color) or mucus in diarrhea Reduced urine output or extreme thirst Weakness, dizziness or fainting Unusually drowsy or confused Fever of 100.4 F (38 C) oral or higher, or as directed Yellow color of the eyes or skin [id number] [employer]. [address] [place] [address]. All rights reserved. This information is not intended as a substitute for professional medical care. Always follow yourhealthcare professional's instructions. Follow Up Care 03/09/2023 04:50:48 With:TELLO LOVETT MD Address: [address] [facility] [address] [address] [phone] When:2-4 days With:PRERNA LEMUS DO Address: [address] [place] [phone] When:2-4 days [facility] 06-16-2023 Note Discharge Instructions Thank you for allowing [facility] to assist you with your healthcare needs. The following is importantdischarge information regarding your hospital visit. Diagnosis from Today's Visit Abdominal pain Vomiting What to Do Next Instructions from Your Care Team Your CT scan shows no acute issue today. Does show some cysts/lesions in both kidneys and the radiologist is recommending you follow-up with your family physician to obtain an ultrasound dedicated tolooking at the kidneys and adrenal glands. You are also instructed to follow-up with primary care physician next week to have your electrolytes rechecked as your kidney function was off today which was most likely related to the being dehydrated from your vomiting. No qualifying data available. Post Acute Orders No qualifying data available. You Need to Schedule the Following Appointments Follow Up with TELLO LOVETT MD When Within 2-4 days Where: [address] [phone] Follow Up with PRERNA LEMUS DO When Within 2-4 days Where: [address] [place] [phone] Allergies Macrobid Zoloft meloxicam penicillin Medications Please ask your primary doctor or pharmacist before taking any other medication not listed, including over the counter drugs, herbal medications, vitamins and or supplements as they may interact withyour home medications. What How Much When Why Instructions Last Dose New prochlorperazine (Compazine use prochlorperazine ) 10 Milligram by mouth Three (3) times a day Abdominal pain Duration: 3 Days Printed Prescription Unchanged amLODIPine (amLODIPine 10 mg oral tablet) 1 tab(s) by mouth Once a day Unchanged atorvastatin (atorvastatin 40 mg oral tablet) 1 tab(s) by mouth Daily at bedtime Unchanged citalopram (citalopram 40 mg oral tablet) 1 tab(s) by mouth Once a day Unchanged clopidogrel (clopidogrel 75 mg oral tablet) 1 tab(s) by mouth Once a day Unchanged dicyclomine (dicyclomine 20 mg oral tablet) 2 tab(s) by mouth Four (4) times a day as needed for abdominal discomfort Unchanged fenofibrate (fenofibrate 145 mg oral tablet) 1 tab(s) by mouth Once a day Unchanged lisinopril (lisinopril 20 mg oral tablet) 1 tab(s) by mouth Two (2) times a day Unchanged meloxicam (meloxicam 15 mg oral tablet) 1 tab(s) by mouth Once a day as needed for Pain Unchanged metoprolol (Metoprolol Succinate ER 25 mg oral TABLET extended release) 1 tab(s) by mouth Once a day Unchanged pantoprazole (pantoprazole 40 mg oral enteric coated tablet) 1 tab(s) by mouth Once a day before a meal Unchanged promethazine (promethazine 25 mg oral tablet) 1 tab(s) by mouth Every 6 hours Duration: 3 Days Unchanged promethazine (promethazine 25 mg rectal suppository) 1 suppository(ies) in the rectum Every 6 hours Duration: 3 Days Unchanged sucralfate (sucralfate 1 g oral tablet) 1 tab(s) by mouth Four (4) times a day Unchanged traZODone (traZODone 50 mg oral tablet) 1 tab(s) by mouth Daily at bedtime Please take this list to your next doctor s visit. Bring all medications you take, including over the counter medications, herbals and other supplements with you to your doctor s visit. Patients and families are reminded to discard old lists and to update any records with all medication providers or retail pharmacies. Education Materials Vomiting (Adult) Vomiting is a common symptom that may be due to different causes. These include gastroenteritis (stomach flu), food poisoning and gastritis. There are other more serious causes of vomiting which may be hard to diagnose early in the illness. Therefore, it is important to watch for the warning signs listed below. The main danger from repeated vomiting is dehydration. This is due to excess loss of water and minerals from the body. When this occurs, your body fluids must be replaced. Home care If symptoms are severe, rest at home for the next 24 hours. Because your symptoms may be from an infection, wash your hands often and well. If soap and water are not available, use alcohol-based pet handler to keep from spreading the infection to others. Wash your hands for at least 20 seconds. Humming the happy birthday song twice while you wash is aneasy way to make sure you've washed for 20 seconds. Wash your hands after using the toilet, before and after preparing food, before eating food, after changing a diaper, cleaning a wound, caring for a sick person, and blowing your nose, coughing, or sneezing. You should also wash your hands after caring for someone who is sick, touching pet food, ortreats, and touching an animal, or animal waste. You may use acetaminophen or NSAID medicines like ibuprofen or naproxen to control fever, unless another medicine was prescribed. If you have chronic liver or kidney disease or ever had a stomach ulcer or gastrointestinal bleeding, talk with your doctor before using these medicines. Aspirin should never be used in anyone under 18 years of age who is ill with a fever. It may cause severe liver damage. Don't use NSAID medicines if you are already taking one for another condition (like arthritis) or are on aspirin (such as for heart disease, or after a stroke) Don't use tobacco and or drink alcohol, which may worsen your symptoms. If medicines for vomiting were prescribed, take as directed. Once vomiting stops, then follow these guidelines: During the first 12 to 24 hours follow the diet below: Fruit juices. Apple, grape juice, clear fruit drinks, and electrolyte replacement drinks. Beverages. Soft drinks without caffeine; mineral water (plain or flavored), decaffeinated tea and coffee. Soups. Clear broth and bouillon Desserts. Plain gelatin, ice pops, and fruit juice bars. As you feel better, you may add 6 to 8 ounces of yogurt per day. During the next 24 hours you may add the following to the above: Hot cereal, plain toast, bread, rolls, crackers Plain noodles, rice, mashed potatoes, chicken noodle or rice soup Unsweetened canned fruit such as applesauce, bananas (avoid pineapple and citrus) Limit caffeine and chocolate. No spices or seasonings except salt. During the next 24 hours: Gradually resume a normal diet, as you feel better and your symptoms lessen. Follow-up care Follow up with your healthcare provider, or as advised. When to seek medical advice Call your healthcare provider right away if any of these occur: Constant right-sided lower belly pain or increasing general belly pain Continued vomiting (unable to keep liquids down) for 24 hours Vomiting blood or coffee grounds Swollen belly Frequent diarrhea (more than 5 times a day); blood (red or black color) or mucus in diarrhea Reduced urine output or extreme thirst Weakness, dizziness or fainting Unusually drowsy or confused Fever of 100.4 F (38 C) oral or higher, or as directed Yellow color of the eyes or skin [id number] [employer]. [address] [place] [address], [place] [address]. All rights reserved. This information is not intended as a substitute for professional medical care. Always follow yourhealthcare professional's instructions. Additional Information VACCINATE! IT SAVES LIVES! Members of the community who have not yet received the COVID-19 vaccine and would like to receive it can visit one of [facility] vaccine clinics. There are many vaccine clinic locations within the [facility]. For locations and available times, please visit www.[email or web address].[place].gov/. It is important to note that some COVID mobile vaccine clinics are held outdoors and may be canceled in rainy or stormy conditions. To learn more about pediatric vaccinations (ages 5-11), we invite you to visit the [facility] webpage. https://www.[facility].org/pages/5844-Vnjoo-Btkdrevddqd-Rcaolvewaj-Kkuvr-Dpm stions.htmlTo learn more about the COVID-19 vaccine, we invite you to visit the CDC website for a list of frequently asked questions. https://www.cdc.gov/coronavirus/2019-ncov/vaccines/faq.html [facility] [employer] Patient Portal Access Instructions: Stay connected with your healthcare team and access your personal medical information anytime with the [email or web address] Patient Portal. If you would like a full copy of your medical records please contact the [facility] Medical Records Department Sunday through Sunday between 8a.m. and 4:30p.m. Please follow the directions below to access the portal: 1.Access the email account you provided upon registration to the hospital.2.Look for an invitation email from [facility].3.Open the email and access the invitation link: Accept Invitation to [email or web address].Fill in the required roth to create your account. Sign into [email or web address] with your username and password that you created in the above steps to stay up to date. You can then view a summary of results, a summary of your visits, and the ability to download your summaries to your computer or send the information securely to a physician. Remember that your healthcare information is confidential, so carefully consider who you will allow to register on the [email or web address] Patient Portal for access to your information. You can also access the [email or web address] Patient Portal on the [address]. Simply click on Health Records under [employer] and then click on the [facility] logo. HOW TO SAFELY DISPOSE OF PRESCRIPTION MEDICATIONS Please use one of the following methods to safely dispose of your unused medications. 1.Use a drug disposal kit: the drug disposal pouch allows you to safely discard your old and unuseddrugs. Ask your nurse to give you one when you are discharged.2.Visit a local take-back location: Many local pharmacies and police departments have programs that collect old and unwanted prescriptiondrugs. Call your local pharmacy or go to http://[employer].IQMS/8I0Ub5k to find one close to you.3.Make use of household items: Use cat litter or old coffee grounds to dispose medications if other options arenot available. Mix your drugs with these household products, seal them in an airtight container andthrow it into the garbage. Call [facility]: [phone] to be sure your drugs can be disposed of in this way. Some medicines may require a different approach.4.Never flush your medications down the toilet. IF YOU HAVE BEEN PRESCRIBED AN OPIOIDS FOR PAIN If you have been prescribed an opioid (such as hydrocodone, oxycodone or morphine), it is critical to understand the possible side effects and risks of opioid pain medications. Even when taken as directed, opioids can have several side effects including: Tolerance, meaning you might need to take more of a medication for the same pain relief. Nausea, vomiting and/or constipation. Sleepiness, dizziness, dry mouth, confusion, depression or itching. Physical dependence, meaning you have withdrawal symptoms when a medication is stopped ? this can develop within a few days. KNOW YOUR RESPONSIBILITIES It is important to know exactly how much and how often to take the opioid pain medications you are prescribed. Never take opioids in higher amounts or more often than prescribed. Do not combine opioids with alcohol or other drugs that cause drowsiness, such as benzodiazepines, also known as benzos,including diazepam and alprazolam, muscle relaxants or sleep aids. Never sell or share prescriptionopioids. This is illegal. Store opioids in a secure place and out of reach of others (including children, family, friends and visitors). The last page(s) of this document has been signed and retained as a CHART COPY Signatures Patient Education Materials Vomiting (Adult) Medication Leaflets My discharge plan and instructions have been reviewed and explained to me and I,ROSARIO, TRUONG F understand my current condition and have read and understand these discharge instructions. I have received a written copy of the plan/instructions. If I have questions, I am aware that I should contact my doctor. 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 Multiplanar reformatted images are provided for review. Automated exposure control, iterative reconstruction, and/or weight based adjustment of the mA/kV was utilized to reduce the radiation dose to as low as reasonably achievable. COMPARISON: 01/15/2023 HISTORY: ORDERING SYSTEM PROVIDED HISTORY: Reason for Exam: abdominal pain FINDINGS: The lung bases demonstrate no acute process. There are coronary artery stents. No focal hepatic lesion. Calcified splenic granulomas. Unchanged bilateral adrenal thickening with several small nodules. Prior cholecystectomy. The pancreas is unremarkable. Symmetric nephrograms. The ureters are unremarkable. Mild circumferential bladder wall thickening. Similar stable benign-appearing renal cysts measuring up to 7.4 cm on the left. Stable indeterminate 2.7 cm right mid pole and left anterior 1.2 cm renal lesions. Stable moderate hiatal hernia. Nondilated loops of small bowel. A normal appendix is identified. Few scattered sigmoid diverticular noted without adjacent inflammation. Atherosclerotic nonaneurysmal abdominal aorta. No lymphadenopathy. Prostate is unremarkable. Small left and tiny right fat containing inguinal hernias. No free intraperitoneal gas or fluid. Degenerative changes of the spine most notably inferiorly. IMPRESSION: Circumferential bladder wall thickening which may relate to underdistention versus cystitis. Correlation with urinalysis is recommended. Stable indeterminate bilateral renal lesions. Nonemergent renal ultrasound or MRI may be obtained for further characterization. Similar prominent adrenal thickening with underlying hypodensities possibly representing adenomas. Further evaluation with dedicated adrenal CT could be obtained for further characterization. Moderate hiatal hernia. Colonic diverticulosis without diverticulitis. Preliminary Report was Dictated by a Resident Interpreted by: Sandeep Grey MD Preliminary Report By: Adolfo Delatorre Electronically signed By Sandeep Grey MD Dictated Date: 03/09/2023 6:17:46 AM Prelim Date: 03/09/2023 6:31:48 AM Sign Date: 03/09/2023 6:55:31 AM Ordering Provider: [facility]06-16-2023 Note ORIGINAL EXAMINATION: CT OF THE ABDOMEN AND PELVIS WITH CONTRAST 03/09/2023 6:15 am TECHNIQUE: CT of the abdomen and pelvis was performed with the administration of intravenous contrast. Multiplanar reformatted images are provided for review. Automated exposure control, iterative reconstruction, and/or weight based adjustment of the mA/kV was utilized to reduce the radiation dose to as low as reasonably achievable. COMPARISON: 01/15/2023 HISTORY: ORDERING SYSTEM PROVIDED HISTORY: Reason for Exam: abdominal pain FINDINGS: The lung bases demonstrate no acute process. There are coronary artery stents. No focal hepatic lesion. Calcified splenic granulomas. Unchanged bilateral adrenal thickening with several small nodules. Prior cholecystectomy. The pancreas is unremarkable. Symmetric nephrograms. The ureters are unremarkable. Mild circumferential bladder wall thickening. Similar stable benign-appearing renal cysts measuring up to 7.4 cm on the left. Stable indeterminate 2.7 cm right mid pole and left anterior 1.2 cm renal lesions. Stable moderate hiatal hernia. Nondilated loops of small bowel. A normal appendix is identified. Few scattered sigmoid diverticular noted without adjacent inflammation. Atherosclerotic nonaneurysmal abdominal aorta. No lymphadenopathy. Prostate is unremarkable. Small left and tiny right fat containing inguinal hernias. No free intraperitoneal gas or fluid. Degenerative changes of the spine most notably inferiorly. IMPRESSION: Circumferential bladder wall thickening which may relate to underdistention versus cystitis. Correlation with urinalysis is recommended. Stable indeterminate bilateral renal lesions. Nonemergent renal ultrasound or MRI may be obtained for further characterization. Similar prominent adrenal thickening with underlying hypodensities possibly representing adenomas. Further evaluation with dedicated adrenal CT could be obtained for further characterization. Moderate hiatal hernia. Colonic diverticulosis without diverticulitis. Preliminary Report was Dictated by a Resident Interpreted by: Sandeep Grey MD Preliminary Report By: Adolfo Delatorre Electronically signed By Sandeep Grey MD Dictated Date: 03/09/2023 6:17:46 AM Prelim Date: 03/09/2023 6:31:48 AM Sign Date: 03/09/2023 6:55:31 AM Ordering Provider: [facility]06-15-[address] Kam [facility] March 08, 2023 3:08pm Note Date/Time March 08, 2023 12:5 7pm [facility] Medical Records Department [address] [place] [address] Emergency Department Summary 03/08/23 MR#: [id number] Acct: [id number] Name: TRUONG ROSARIO III Rep #:[id number] : 1960 62 From: Dewey Kam MD PCP: MARIAH GRAFF Status:REG ER Location: ED HPI History of Present Illness Chief Complaint: Nausea/Vomiting Detail of Chief Complaint: I have cyclic vomiting Informant: patient Onset/Context/Timing Onset: Today (0900) Context: Sudden Onset Timing: Continuous Quality: Bilious emesis, numerous Location: GI Current Severity: Severe Maximum Severity: Severe Worsened by: Pain is worse with vomiting Relieved by: Nothing Associated Symptoms Associated Symptoms: Diaphoresis Narrative Narrative: Patient is 62-year-old male with history of cyclic vomiting, hypertension, depression and GERD who presents with vomiting numerous times since 9 AM. Emesis is bilious in color. There is no complaint of diarrhea or constipation. He denies fever, chills night sweats. He denies headache, visual, ocular auditory symptoms. He denies chest discomfort. He denies shortness of breath. His abdominal pain is midline. The pain does not radiate. The pain has been constant since onset. Prior similar symptoms: Yes Recent Illness/Hospitalization: No PFSH PFSH Medical History Heart attack Hiatal hernia Home Medications amlodipine 10 mg tablet 10 mg PO DAILY 11/11/22 [History Last Taken Unknown] aspirin 81 mg chewable tablet 81 mg PO DAILY 11/11/22 [History Last Taken Unknown] atorvastatin 40 mg tablet 40 mg PO DAILY 11/11/22 [History Last Taken Unknown] citalopram 40 mg tablet 40 mg PO DAILY 11/11/22 [History Last Taken Unknown] dicyclomine 20 mg tablet 20 mg PO TID PRN abdominal discomfort #20 tabs 11/11/22[Rx Last Taken Unknown] fenofibrate 120 mg tablet 145 mg PO DAILY 11/11/22 [History Last Taken Unknown] lisinopril 20 mg tablet 20 mg PO DAILY 11/11/22 [History Last Taken Unknown] meloxicam 15 mg tablet 15 mg PO DAILY PRN UNKNOWN 11/11/22 [History Last Taken Unknown] sucralfate 1 gram tablet 1 g PO 4X/DAY 11/11/22 [History Last Taken Unknown] trazodone 50 mg tablet 75 mg PO DAILY 11/11/22 [History Last Taken Unknown] dicyclomine 20 mg tablet 20 mg PO TID PRN abdominal cramping #14 tabs 12/06/22 [Rx Last Taken Unknown] ondansetron 4 mg disintegrating tablet 4 mg PO Q8H PRN PRN Nausea #10 tabs 12/06/22 [Rx Last Taken Unknown] dicyclomine 20 mg tablet 20 mg PO TID #20 tabs 01/01/23 [Rx Last Taken Unknown] promethazine 12.5 mg tablet 12.5 mg PO TID PRN nausea and vomiting #20 tabs 01/01/23 [Rx Last Taken Unknown] Allergy/AdvReac Type Severity Reaction Status Date / Time nitrofurantoin Allergy Rash Verified 12/27/22 15:32 [From Macrobid] Penicillins [PCN] Allergy Rash Verified 12/27/22 15:32 Surgical History History of cholecystectomy Social History (Updated 03/08/23 @ 12:[address] Dewey Kam MD) Smoking Status: Current every day smoker tobacco type: cigars details: Denies alcohol use and history of pancreatitis substance use type: does not use ROS ROS ED Constitutional Constitutional ED: Reports sweats; Denies chills, fever(s), subjective or weight loss Eyes Eyes: Denies blurry vision, change in vision or diplopia ENT ENT ED: Reports other Details: Dry mouth and thirst ; Denies ear pain, rhinorrhea or sore throat Cardiovascular Cardiovascular: Denies chest pain, palpitations or racing heartbeat Respiratory/Chest Respiratory/Chest: Denies cough, dyspnea or dyspnea on exertion Gastrointestinal Gastrointestinal: Reports abdominal pain, nausea and vomiting; Denies constipation, diarrhea or melena Genitourinary Genitourinary ED: Denies dysuria, hematuria or urinary frequency Musculoskeletal Musculoskeletal: Denies arthralgias, myalgias or neck pain Neurologic Neurologic: Denies headache(s), paresthesias or weakness Psychiatric Psychiatric: Reports anxiety Endocrine Endocrinology: Denies cold intolerance or heat intolerance Hematologic/Lymphatic Hematologic/Lymphatic: Reports systems reviewed and no addt'l complaints, except as documented EXAM Physical Exam Const Vital Signs: 03/08/23 12:14 Temperature 97.4 F L Temperature Source Temporal Pulse Rate 120 H Respiratory Rate 18 Blood Pressure 155/124 H Blood Pressure Mean 134 Pulse Ox 98 Oxygen Delivery Method Room Air Positive well nourished and well developed Constitutional Narrative: Patient appears uncomfortable. He is holding his stomach. General Appearance ED: well developed and diaphoretic; Negative for cyanotic, NAD or pallor HEENT Reports dry mucous membranes HEENT Narrative: Head is atraumatic and normocephalic. Ears are normal. TMs are normal. Posterior pharynx is normal. Mouth ED: Yes dry mucous membranes Mouth: dry mucous membranes Eyes PERRL and EOMs intact bilaterally General Eye ED: Negative for pale conjunctiva or scleral icterus Neck no lymphadenopathy, supple and no JVD Chest Wall inspection of chest normal and palpation of chest normal Resp normal respiratory effort and clear to auscultation bilaterally Cardio regular rhythm, S1 normal heart sound, S2 normal heart sound and no murmurs Rate: tachycardic GI non-distended and no masses; Negative for hepatosplenomegaly Auscultation: hypoactive bowel sounds Palpation: soft and tender other (Diffuse); Negative for guarding, mass or rebound tenderness present Back/Spine no CVA tenderness Extremity normal to inspection General Extremety ED: Negative for edema or tenderness General Extremity: Negative for edema Neuro oriented x3, CN's II-XII intact bilaterally and no sensory deficits noted Sensorium / Orientation: alert Psych Mood & Affect: depressed Skin no rashes or lesions noted, no wounds and skin turgor normal Skin Narrative: Patient is diaphoretic. General Skin Exam: Negative for jaundice or pallor MDM MDM MDM Narrative Medical decision making narrative: Since patient is elderly with his hypertension and vomiting profusely will obtain BMP to assess electrolytes and more importantly renal function. ED cyclic vomiting order set was initiated. He also received 1 L of normal saline wide open. History & Record Review Additional record(s) reviewed:: Prior ED visit, Prior labs and Other (There are no inpatient records at [facility].) Lab Data Attestation: I reviewed the patient's lab results. Lab results narrative: Basic metabolic panel reveals a 9 anion gap acidosis. Glucose is 146. Electrolytes and renal function are unremarkable. Labs: Laboratory Results - last 24 hr 03/08/23 12:40 Sodium 135 L Potassium 3.9 Chloride 106 Carbon Dioxide 19.0 L Anion Gap 10 BUN 15 Creatinine 1.20 Est GFR (MDRD) Af Amer 78 Est GFR (MDRD) Non-Af 65 BUN/Creatinine Ratio 12.5 Glucose 146 H Calcium 9.7 Treatment and Re-Evaluation :: Patient was reassessed at 1455. Patient is no longer flushed, diaphoretic or moaning in pain. He has not vomited in the last 45 minutes. At 1506 nurse informed me that patient feels much better. Plan is to discharge to home Discharge Plan Triage Chief Complaint: Nausea/Vomiting ED Provider: Dewey Kam Dx/Rx/DC Orders Clinical Impression: Cyclic vomiting syndrome, Sinus tachycardia, Acute dehydration, Acute hyperglycemia Instructions: ED Cyclic Vomiting Syndrome Prescriptions: No Action atorvastatin 40 mg Tablet 40 mg PO DAILY citalopram 40 mg Tablet 40 mg PO DAILY trazodone 50 mg Tablet 75 mg PO DAILY meloxicam 15 mg Tablet 15 mg PO DAILY PRN (Reason: UNKNOWN) sucralfate 1 gram Tablet 1 g PO 4X/DAY lisinopril 20 mg Tablet 20 mg PO DAILY amlodipine 10 mg Tablet 10 mg PO DAILY aspirin 81 mg Tablet,Chewable 81 mg PO DAILY fenofibrate 120 mg Tablet 145 mg PO DAILY dicyclomine 20 mg tablet 20 mg PO TID PRN (Reason: abdominal discomfort) Qty: 20 0RF dicyclomine 20 mg tablet 20 mg PO TID PRN (Reason: abdominal cramping) Qty: 14 0RF ondansetron 4 mg tablet,disintegrating 4 mg PO Q8H PRN PRN (Reason: Nausea) Qty: 10 0RF promethazine 12.5 mg tablet 12.5 mg PO TID PRN (Reason: nausea and vomiting) Qty: 20 0RF Rx Instructions: 3 doses during day; last dose no later than 4 hr before bedtime dicyclomine 20 mg tablet 20 mg PO TID Qty: 20 0RF Primary Care Provider: MARIAH GRAFF Referrals: MARIAH GRAFF [Other] - As Needed Disposition Disposition: Home, Self Care What to do if you have Problems For any increased pain, shortness of breath, bleeding, nausea or vomiting, chest pain, or any unexpected problems, contact your Primary Care Provider. Call [facility] ([phone]) or report to the closest Emergency Room. Call 911 if necessary. 03/08/23 2619 <Electronically signed by Dewey Kam MD> Cosigner Signature (if applicable): CC: MARIAH GRAFF ~ Signed [facility] Work Phone: [phone]) 894-717504-10-2023 NoteHNO ID: [id number] Author: Jaguar Kearney MD Service: ? Author Type: Physician Type: Progress Notes Filed: 01/01/2023 1:16 PM Note Text: Express Care Triage Note: Patient presents to the express care with complaint of severe nausea and vomiting since this morning. Denies severe abdominal pain or blood in emesis/stool, but he is feeling weak. Patient is persistently retching and has difficulty standing for discussion. Anti-emetic is available here, but is going to the ER for her leg numbness and pain, so she will take him too.[facility]04-10-[address] Ramos [facility] January 01, 2023 6:14pm Note Date/Time January 01, 2023 6:1 4pm [facility] Medical Records Department [address] [place] [address] Emergency Department Summary 01/01/23 MR#: [id number] Acct: [id number] Name: TRUONG ROSARIO III Rep #:[id number] : 1960 62 From: Catherine Ramos DO PCP: MARIAH GRAFF Status:REG ER Location: ED HPI HPI - GI History of Present Illness Chief Complaint: Nausea/Vomiting Narrative Narrative: 62-year-old male presenting with nausea/vomiting/abdominal pain. Patient has a history of cyclic vomiting. He states most very similar. He has not had a fever. He states he ate too much last night he believes and asked why he feels this way today. It started this morning. Patient states he ate waffles into oranges last night. He states this would not normally cause any problems. Patient denies constipation or diarrhea. He is passing gas. Patient denies marijuana use. Patient previously seen several times in the ER for similar complaints as he is a new transplant of blister. He does not see his old physicians in [place]. He has not set up any kind of follow-up here in [place] because he states [facility] Medical History Heart attack Hiatal hernia Home Medications amlodipine 10 mg tablet 10 mg PO DAILY 11/11/22 [History Last Taken Unknown] aspirin 81 mg chewable tablet 81 mg PO DAILY 11/11/22 [History Last Taken Unknown] atorvastatin 40 mg tablet 40 mg PO DAILY 11/11/22 [History Last Taken Unknown] citalopram 40 mg tablet 40 mg PO DAILY 11/11/22 [History Last Taken Unknown] dicyclomine 20 mg tablet 20 mg PO TID PRN abdominal discomfort #20 tabs 11/11/22[Rx Last Taken Unknown] fenofibrate 120 mg tablet 145 mg PO DAILY 11/11/22 [History Last Taken Unknown] lisinopril 20 mg tablet 20 mg PO DAILY 11/11/22 [History Last Taken Unknown] meloxicam 15 mg tablet 15 mg PO DAILY PRN UNKNOWN 11/11/22 [History Last Taken Unknown] sucralfate 1 gram tablet 1 g PO 4X/DAY 11/11/22 [History Last Taken Unknown] trazodone 50 mg tablet 75 mg PO DAILY 11/11/22 [History Last Taken Unknown] dicyclomine 20 mg tablet 20 mg PO TID PRN abdominal cramping #14 tabs 12/06/22 [Rx Last Taken Unknown] ondansetron 4 mg disintegrating tablet 4 mg PO Q8H PRN PRN Nausea #10 tabs 12/06/22 [Rx Last Taken Unknown] dicyclomine 20 mg tablet 20 mg PO TID #20 tabs 01/01/23 [Rx Last Taken Unknown] promethazine 12.5 mg tablet 12.5 mg PO TID PRN nausea and vomiting #20 tabs 01/01/23 [Rx Last Taken Unknown] Allergy/AdvReac Type Severity Reaction Status Date / Time nitrofurantoin Allergy Rash Verified 12/27/22 15:32 [From Macrobid] Penicillins [PCN] Allergy Rash Verified 12/27/22 15:32 Surgical History History of cholecystectomy Social History Smoking Status: Current every day smoker tobacco type: cigars ROS ROS ED Constitutional Constitutional ED: Denies chills or fever(s) ENT ENT ED: Denies rhinorrhea or sore throat Cardiovascular Cardiovascular: Denies chest pain or palpitations Respiratory/Chest Respiratory/Chest: Denies cough or dyspnea Gastrointestinal Gastrointestinal: Reports abdominal pain, nausea and vomiting; Denies constipation or diarrhea Genitourinary Genitourinary ED: Denies dysuria or hematuria Musculoskeletal Musculoskeletal: Denies arthralgias or back pain Integumentary Denies abscess Neurologic Neurologic: Denies headache(s) or paresthesias Psychiatric Psychiatric: Denies anxiety or suicidal thoughts Endocrine Endocrinology: Denies polydipsia EXAM Physical Exam Const Vital Signs: 01/01/23 13:15 01/01/23 13:26 01/01/23 15:14 Temperature 96.9 F L Temperature Source Temporal Pulse Rate 89 81 Respiratory Rate 18 12 Blood Pressure 176/110 H 157/99 H Blood Pressure Mean 132 118 Pulse Ox 97 97 Oxygen Delivery Method Room Air Room Air Positive well nourished General Appearance ED: Negative for pallor HEENT Reports moist mucous membranes normocephalic and atraumatic Eyes PERRL Resp normal respiratory effort Cardio regular rate and regular rhythm GI GI Narrative: Benign abdomen. Palpation: Negative for guarding or rigid Back/Spine no CVA tenderness Neuro CN's II-XII intact bilaterally, moves all extremities, no sensory deficits noted and gait normal Sensorium / Orientation: alert Psych mental status grossly normal Skin General Skin Exam: Negative for jaundice or pallor MDM MDM MDM Narrative Medical decision making narrative: Patient presenting with abdominal pain. He feels this is consistent with his previous cyclic vomiting. He states he set himself off with waffles and oranges. Abdominal exam is benign. Differential includes but is not limited to GERD, gastritis, peptic ulcer disease, diverticulitis, pancreatitis, viral etiology, food poisoning. CBC to assess white blood cell count, hemoglobin, platelets, differential. CMP to assess liver function, renal function, glucose, anion gap. Lipase to assess for pancreatitis. Patient given IV fluids and cyclic vomiting cocktail. On reevaluation he is doing better. CBC shows his leukocytosis is actually improved. Renal function electrolytes unremarkable. Liver function testing is normal as well. Lipase is normal. He does state that his stomach still occasional flip-flops. Did recommend to him that he make follow-up appointments. His significant other recommended Reglan for home because that helps him the most. I will also give him some Bentyl. Return precautions were discussed. Impression: 1. Cyclic vomiting syndrome Lab Data Attestation: I reviewed the patient's lab results. Labs: Laboratory Results - last 24 hr 01/01/23 01/01/23 15:02 15:02 WBC 14.6 H RBC 4.71 Hgb 12.9 L Hct 39.2 L MCV 83.2 D MCH 27.4 MCHC 32.9 D RDW Std Deviation 52.2 H RDW Coeff of Florencio 17.2 H Plt Count 410 MPV 10.0 Immature Gran % (Auto) 0.800 Neut % (Auto) 90.0 H Lymph % (Auto) 5.8 L [place] % (Auto) 3.1 Eos % (Auto) 0.0 Baso % (Auto) 0.3 Absolute Neuts (auto) 13.2 H Absolute Lymphs (auto) 0.85 Nucleated RBC % 0 Sodium 140 Potassium 3.8 Chloride 111 H Carbon Dioxide 21.0 Anion Gap 8 BUN 14 Creatinine 1.19 Estim Creat Clear Calc 64.75 Est GFR (MDRD) Af Amer 79 Est GFR (MDRD) Non-Af 65 BUN/Creatinine Ratio 11.8 Glucose 126 H Calcium 9.5 Total Bilirubin 0.30 AST 15 ALT 17 Alkaline Phosphatase 62 Total Protein 7.4 Albumin 3.7 Globulin 3.7 Albumin/Globulin Ratio 1.0 Lipase 166 Discharge Plan Triage Chief Complaint: Nausea/Vomiting ED Provider: Catherine Ramos Dx/Rx/DC Orders Instructions: ED Cyclic Vomiting Syndrome Prescriptions: New promethazine 12.5 mg tablet 12.5 mg PO TID PRN (Reason: nausea and vomiting) Qty: 20 0RF Rx Instructions: 3 doses during day; last dose no later than 4 hr before bedtime dicyclomine 20 mg tablet 20 mg PO TID Qty: 20 0RF No Action atorvastatin 40 mg Tablet 40 mg PO DAILY citalopram 40 mg Tablet 40 mg PO DAILY trazodone 50 mg Tablet 75 mg PO DAILY meloxicam 15 mg Tablet 15 mg PO DAILY PRN (Reason: UNKNOWN) sucralfate 1 gram Tablet 1 g PO 4X/DAY lisinopril 20 mg Tablet 20 mg PO DAILY amlodipine 10 mg Tablet 10 mg PO DAILY aspirin 81 mg Tablet,Chewable 81 mg PO DAILY fenofibrate 120 mg Tablet 145 mg PO DAILY dicyclomine 20 mg tablet 20 mg PO TID PRN (Reason: abdominal discomfort) Qty: 20 0RF dicyclomine 20 mg tablet 20 mg PO TID PRN (Reason: abdominal cramping) Qty: 14 0RF ondansetron 4 mg tablet,disintegrating 4 mg PO Q8H PRN PRN (Reason: Nausea) Qty: 10 0RF Primary Care Provider: MARIAH GRAFF Referrals: MARIAH GRAFF [Other] Disposition Disposition: Home, Self Care What to do if you have Problems For any increased pain, shortness of breath, bleeding, nausea or vomiting, chest pain, or any unexpected problems, contact your Primary Care Provider. Call [facility] ([phone]) or report to the closest Emergency Room. Call 911 if necessary. 01/01/231813 <Electronically signed by Catherine Ramos DO> Cosigner Signature (if applicable): CC: MARIAH GRAFF ~ Signed [facility] Work Phone: [phone] 277-738604-10-2023 History of Present illness Narrative* Jaguar Kearney MD - 01/01/2023 1:11 PM EDT Express Care Triage Note: Patient presents to the express care with complaint of severe nausea and vomiting since this morning. Denies severe abdominal pain or blood in emesis/stool, but he is feeling weak. Patient is persistently retching and has difficulty standing for discussion. Anti-emetic is available here, but is going to the ER for her leg numbness and pain, so she will take him too. [facility] Discharge instructions Patient Education 06/27/2022 22:13:46 Vomiting (Adult) Vomiting (Adult) Vomiting is a common symptom that may be due to different causes. These include gastroenteritis (stomach flu), food poisoning and gastritis. There are other more serious causes of vomiting which may be hard to diagnose early in the illness. Therefore, it is important to watch for the warning signs listed below. The main danger from repeated vomiting is dehydration. This is due to excess loss of water and minerals from the body. When this occurs, your body fluids must be replaced. Home care If symptoms are severe, rest at home for the next 24 hours. Because your symptoms may be from an infection, wash your hands often and well. If soap and water are not available, use alcohol-based pet handler to keep from spreading the infection to others. Wash your hands for at least 20 seconds. Humming the happy birthday song twice while you wash is aneasy way to make sure you've washed for 20 seconds. Wash your hands after using the toilet, before and after preparing food, before eating food, after changing a diaper, cleaning a wound, caring for a sick person, and blowing your nose, coughing, or sneezing. You should also wash your hands after caring for someone who is sick, touching pet food, ortreats, and touching an animal, or animal waste. You may use acetaminophen or NSAID medicines like ibuprofen or naproxen to control fever, unless another medicine was prescribed. If you have chronic liver or kidney disease or ever had a stomach ulcer or gastrointestinal bleeding, talk with your doctor before using these medicines. Aspirin should never be used in anyone under 18 years of age who is ill with a fever. It may cause severe liver damage. Don't use NSAID medicines if you are already taking one for another condition (like arthritis) or are on aspirin (such as for heart disease, or after a stroke) Don't use tobacco and or drink alcohol, which may worsen your symptoms. If medicines for vomiting were prescribed, take as directed. Once vomiting stops, then follow these guidelines: During the first 12 to 24 hours follow the diet below: Fruit juices. Apple, grape juice, clear fruit drinks, and electrolyte replacement drinks. Beverages. Soft drinks without caffeine; mineral water (plain or flavored), decaffeinated tea and coffee. Soups. Clear broth and bouillon Desserts. Plain gelatin, ice pops, and fruit juice bars. As you feel better, you may add 6 to 8 ounces of yogurt per day. During the next 24 hours you may add the following to the above: Hot cereal, plain toast, bread, rolls, crackers Plain noodles, rice, mashed potatoes, chicken noodle or rice soup Unsweetened canned fruit such as applesauce, bananas (avoid pineapple and citrus) Limit caffeine and chocolate. No spices or seasonings except salt. During the next 24 hours: Gradually resume a normal diet, as you feel better and your symptoms lessen. Follow-up care Follow up with your healthcare provider, or as advised. When to seek medical advice Call your healthcare provider right away if any of these occur: Constant right-sided lower belly pain or increasing general belly pain Continued vomiting (unable to keep liquids down) for 24 hours Vomiting blood or coffee grounds Swollen belly Frequent diarrhea (more than 5 times a day); blood (red or black color) or mucus in diarrhea Reduced urine output or extreme thirst Weakness, dizziness or fainting Unusually drowsy or confused Fever of 100.4 F (38 C) oral or higher, or as directed Yellow color of the eyes or skin [id number] [employer]. [address] [place] [address], [place] [address]. All rights reserved. This information is not intended as a substitute for professional medical care. Always follow yourhealthcare professional's instructions. Follow Up Care 06/27/2022 19:17:30 With:Follow up with primary care provider Address:Unknown When:2-4 days [facility] 10-04-2022 Note Discharge Instructions Thank you for allowing [facility] to assist you with your healthcare needs. The following is importantdischarge information regarding your hospital visit. Diagnosis from Today's Visit Cyclical vomiting syndrome Abdominal pain Headache What to Do Next Instructions from Your Care Team No qualifying data available. Post Acute Orders No qualifying data available. You Need to Schedule the Following Appointments Follow Up with Follow up with primary care provider When Within 2-4 days Allergies Macrobid Zoloft meloxicam penicillin Medications Please ask your primary doctor or pharmacist before taking any other medication not listed, including over the counter drugs, herbal medications, vitamins and or supplements as they may interact withyour home medications. What How Much When Instructions Last Dose Unchanged acetaminophen-oxyCODONE (acetaminophen-oxyCODONE 325 mg-5 mg oral tablet) Unchanged amLODIPine (amLODIPine 10 mg oral tablet) Unchanged atorvastatin (atorvastatin 40 mg oral tablet) Unchanged citalopram (citalopram 40 mg oral tablet) Unchanged clopidogrel (clopidogrel 75 mg oral tablet) Unchanged fenofibrate (fenofibrate 145 mg oral tablet) Unchanged lisinopril (lisinopril 20 mg oral tablet) Unchanged meloxicam (meloxicam 15 mg oral tablet) Unchanged metoprolol (Metoprolol Succinate ER 25 mg oral TABLET extended release) Unchanged promethazine (promethazine 25 mg oral tablet) 1 tab(s) by mouth Every 6 hours Duration: 3 Days Unchanged promethazine (promethazine 25 mg rectal suppository) 1 suppository(ies) in the rectum Every 6 hours Duration: 3 Days Unchanged traZODone (traZODone 50 mg oral tablet) Please take this list to your next doctor s visit. Bring all medications you take, including over the counter medications, herbals and other supplements with you to your doctor s visit. Patients and families are reminded to discard old lists and to update any records with all medication providers or retail pharmacies. Education Materials Vomiting (Adult) Vomiting is a common symptom that may be due to different causes. These include gastroenteritis (stomach flu), food poisoning and gastritis. There are other more serious causes of vomiting which may be hard to diagnose early in the illness. Therefore, it is important to watch for the warning signs listed below. The main danger from repeated vomiting is dehydration. This is due to excess loss of water and minerals from the body. When this occurs, your body fluids must be replaced. Home care If symptoms are severe, rest at home for the next 24 hours. Because your symptoms may be from an infection, wash your hands often and well. If soap and water are not available, use alcohol-based pet handler to keep from spreading the infection to others. Wash your hands for at least 20 seconds. Humming the happy birthday song twice while you wash is aneasy way to make sure you've washed for 20 seconds. Wash your hands after using the toilet, before and after preparing food, before eating food, after changing a diaper, cleaning a wound, caring for a sick person, and blowing your nose, coughing, or sneezing. You should also wash your hands after caring for someone who is sick, touching pet food, ortreats, and touching an animal, or animal waste. You may use acetaminophen or NSAID medicines like ibuprofen or naproxen to control fever, unless another medicine was prescribed. If you have chronic liver or kidney disease or ever had a stomach ulcer or gastrointestinal bleeding, talk with your doctor before using these medicines. Aspirin should never be used in anyone under 18 years of age who is ill with a fever. It may cause severe liver damage. Don't use NSAID medicines if you are already taking one for another condition (like arthritis) or are on aspirin (such as for heart disease, or after a stroke) Don't use tobacco and or drink alcohol, which may worsen your symptoms. If medicines for vomiting were prescribed, take as directed. Once vomiting stops, then follow these guidelines: During the first 12 to 24 hours follow the diet below: Fruit juices. Apple, grape juice, clear fruit drinks, and electrolyte replacement drinks. Beverages. Soft drinks without caffeine; mineral water (plain or flavored), decaffeinated tea and coffee. Soups. Clear broth and bouillon Desserts. Plain gelatin, ice pops, and fruit juice bars. As you feel better, you may add 6 to 8 ounces of yogurt per day. During the next 24 hours you may add the following to the above: Hot cereal, plain toast, bread, rolls, crackers Plain noodles, rice, mashed potatoes, chicken noodle or rice soup Unsweetened canned fruit such as applesauce, bananas (avoid pineapple and citrus) Limit caffeine and chocolate. No spices or seasonings except salt. During the next 24 hours: Gradually resume a normal diet, as you feel better and your symptoms lessen. Follow-up care Follow up with your healthcare provider, or as advised. When to seek medical advice Call your healthcare provider right away if any of these occur: Constant right-sided lower belly pain or increasing general belly pain Continued vomiting (unable to keep liquids down) for 24 hours Vomiting blood or coffee grounds Swollen belly Frequent diarrhea (more than 5 times a day); blood (red or black color) or mucus in diarrhea Reduced urine output or extreme thirst Weakness, dizziness or fainting Unusually drowsy or confused Fever of 100.4 F (38 C) oral or higher, or as directed Yellow color of the eyes or skin [id number] [employer]. [address] [place] [address]. All rights reserved. This information is not intended as a substitute for professional medical care. Always follow yourhealthcare professional's instructions. Additional Information VACCINATE! IT SAVES LIVES! Members of the community who have not yet received the COVID-19 vaccine and would like to receive it can visit one of [facility] vaccine clinics. There are many vaccine clinic locations within the [facility]. For locations and available times, please visit [email or web address]. It is important to note that some COVID mobile vaccine clinics are held outdoors and may be canceled in rainy orstormy conditions. To learn more about pediatric vaccinations (ages 5-11), we invite you to visit the [facility] webpage. [email or web address] learn more about the COVID-19 vaccine, we invite you to visit the [facility] website for a list of frequently asked questions. [email or web address] [facility] Patient Portal Access Instructions: Stay connected with your healthcare team and access your personal medical information anytime with the [facility] Patient Portal. If you would like a full copy of your medical records please contact the [facility] Medical Records Department Sunday through Sunday between 8a.m. and 4:30p.m. Please follow the directions below to access the portal: 1.Access the email account you provided upon registration to the [facility].2.Look for an invitation email from [facility].3.Open the email and access the invitation link: Accept Invitation to [facility]4.Fill in the required roth to create your account. Sign into [email or web address] with your username and password that you created in the above steps to stay up to date. You can then view a summary of results, a summary of your visits, and the ability to download your summaries to your computer or send the information securely to a physician. Remember that your healthcare information is confidential, so carefully consider who you will allow to register on the [facility] Patient Portal for access to your information. You can also access the [facility] Patient Portal on the [address]. Simply click on Health Records under [employer] and then click on the [facility] logo. HOW TO SAFELY DISPOSE OF PRESCRIPTION MEDICATIONS Please use one of the following methods to safely dispose of your unused medications. 1.Use a drug disposal kit: the drug disposal pouch allows you to safely discard your old and unuseddrugs. Ask your nurse to give you one when you are discharged.2.Visit a local take-back location: Many local pharmacies and police departments have programs that collect old and unwanted prescriptiondrugs. Call your local pharmacy or go to http://[employer].IQMS/0X3It1p to find one close to you.3.Make use of household items: Use cat litter or old coffee grounds to dispose medications if other options arenot available. Mix your drugs with these household products, seal them in an airtight container andthrow it into the garbage. Call [facility]: [phone] to be sure your drugs can be disposed of in this way. Some medicines may require a different approach.4.Never flush your medications down the toilet. IF YOU HAVE BEEN PRESCRIBED AN OPIOIDS FOR PAIN If you have been prescribed an opioid (such as hydrocodone, oxycodone or morphine), it is critical to understand the possible side effects and risks of opioid pain medications. Even when taken as directed, opioids can have several side effects including: Tolerance, meaning you might need to take more of a medication for the same pain relief. Nausea, vomiting and/or constipation. Sleepiness, dizziness, dry mouth, confusion, depression or itching. Physical dependence, meaning you have withdrawal symptoms when a medication is stopped ? this can develop within a few days. KNOW YOUR RESPONSIBILITIES It is important to know exactly how much and how often to take the opioid pain medications you are prescribed. Never take opioids in higher amounts or more often than prescribed. Do not combine opioids with alcohol or other drugs that cause drowsiness, such as benzodiazepines, also known as benzos,including diazepam and alprazolam, muscle relaxants or sleep aids. Never sell or share prescriptionopioids. This is illegal. Store opioids in a secure place and out of reach of others (including children, family, friends and visitors). The last page(s) of this document has been signed and retained as a CHART COPY Signatures Patient Education Materials Vomiting (Adult) Medication Leaflets My discharge plan and instructions have been reviewed and explained to me and I,TRUONG ROSARIO understand my current condition and have read and understand these discharge instructions. I have received a written copy of the plan/instructions. If I have questions, I am aware that I should contact my doctor. 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 The small opening in the diaphragm where the esophagus and stomach meet is called the hiatus. When you eat, the musclearound the hiatus relaxes to let food pass from the esophagus into the stomach. The hiatus tightensto keep food and acid in the stomach. In some people, the hiatus is too large or the muscle around it is weak. Then the top of the stomach can push upward through the hiatus. This is called a hiatal hernia. A hiatal hernia can let stomach acid flow back up the esophagus. This is called acid reflux. Hiatal hernias are common. The cause of a hiatal hernia is not certain, but some things may make itmore likely. These may include obesity, , and vomiting or coughing. Many people with hiatal hernia do not have symptoms. Often the symptoms are like those of GERD or acid reflux. They can include: Burning feeling under the breastbone (heartburn) Other chest discomfort Frequent burping Food coming back up into the throat or mouth Acid taste in the mouth Trouble swallowing food or liquid Nighttime choking, coughing, or wheezing Feeling full after eating only a small amount of food Nausea and vomiting Treatment can reduce symptoms. This includes medicines and lifestyle changes. In severe cases, you may need surgery to tighten the hiatus. Home care Medicines help control symptoms, but they can't fix the hernia. Antacids help neutralize the normal acids in your stomach. You may find one works better than another for you. Acid blockers (H2 blockers) decrease acid production. Acid inhibitors (PPIs) decrease acid production in a different way than the blockers. Don't take NSAIDs such as aspirin, ibuprofen, and naproxen. These may worsen symptoms in some people. If you are taking these medicines for another medical problem, talk with your healthcare providerbefore stopping them. Lifestyle changes are important in treating your symptoms. You can help reduce or relieve your symptoms if you: Stop smoking and using tobacco. Also if possible, avoid second-hand smoke. Lose excess weight. Excess weight puts pressure on the stomach and esophagus. Symptoms can be worsened by certain foods. Limit or avoid fatty, fried, and spicy foods, as well ascoffee, chocolate, mint, and foods with high acid content such as tomatoes and citrus fruit and juices (orange, grapefruit, lemon). Eat smaller amounts at a time. Don't get overfull. Don't use alcohol, caffeine, or tobacco. They can delay healing and worsen your symptoms. Follow-up care Follow up with your healthcare provider. Regular visits may be needed to check on your health. Be sure to take any medicines as prescribed and keep all your appointments. In some cases, you may need surgery to stop symptoms. Your healthcare provider will talk with you about this option if needed. When to seek medical advice Call your healthcare provider right away if any of these occur: Severe pain in your chest or abdomen Can t keep down food or liquid Symptoms get worse Other symptoms as indicated by your healthcare provider Call 911 Call 911 if any of these occur: Trouble breathing or swallowing Worsening chest pain, especially if different from usual Vomiting blood Large amounts of blood in stool [id number] [employer]. [address] [place] [address]. All rights reserved. This information is not intended as a substitute for professional medical care. Always follow yourhealthcare professional's instructions. Follow Up Care 06/25/2022 14:14:50 With:GARRET MCWILLIAMS MD Address: [address] [place] [address]- When:2-4 days With:TELLO LOVETT MD Address: [address] [facility] [address] [place], [place] [phone]- [phone] When:2-4 days [facility] 10-02-2022 Emergency department Discharge summary Discharge Instructions Thank you for allowing [facility] to assist you with your healthcare needs. The following is importantdischarge information regarding your hospital visit. Diagnosis from Today's Visit Emesis What to Do Next Instructions from Your Care Team No qualifying data available. Post Acute Orders No qualifying data available. You Need to Schedule the Following Appointments Follow Up with GARRET MCWILLIAMS MD When Within 2-4 days Where: [address] [place] [id number]- Follow Up with TELLO LOVETT MD When Within 2-4 days [facility]: [address] [facility] [address] [place], [place] [phone]- [phone] Allergies Macrobid Zoloft meloxicam penicillin Medications Please ask your primary doctor or pharmacist before taking any other medication not listed, including over the counter drugs, herbal medications, vitamins and or supplements as they may interact withyour home medications. What How Much When Instructions Last Dose New promethazine (promethazine 25 mg oral tablet) 1 tab(s) by mouth Every 6 hours Duration: 3 Days Printed Prescription New promethazine (promethazine 25 mg rectal suppository) 1 suppository(ies) in the rectum Every 6 hours Duration: 3 Days Printed Prescription Unchanged acetaminophen-oxyCODONE (acetaminophen-oxyCODONE 325 mg-5 mg oral tablet) Unchanged amLODIPine (amLODIPine 10 mg oral tablet) Unchanged atorvastatin (atorvastatin 40 mg oral tablet) Unchanged citalopram (citalopram 40 mg oral tablet) Unchanged clopidogrel (clopidogrel 75 mg oral tablet) Unchanged fenofibrate (fenofibrate 145 mg oral tablet) Unchanged lisinopril (lisinopril 20 mg oral tablet) Unchanged meloxicam (meloxicam 15 mg oral tablet) Unchanged metoprolol (Metoprolol Succinate ER 25 mg oral TABLET extended release) Unchanged traZODone (traZODone 50 mg oral tablet) Please take this list to your next doctor s visit. Bring all medications you take, including over the counter medications, herbals and other supplements with you to your doctor s visit. Patients and families are reminded to discard old lists and to update any records with all medication providers or retail pharmacies. Medication Leaflets promethazine (oral) (pro METH a zeen) Phenergan What is the most important information I should know about promethazine? Promethazine should not be given to a child younger than 2 years old. Promethazine can cause severebreathing problems or in very young children. What is promethazine? Promethazine is used to treat allergy symptoms such as itching, runny nose, sneezing, itchy or watery eyes, hives, and itchy skin rashes. Promethazine also prevents motion sickness, and treats nausea and vomiting or pain after surgery. It is also used as a sedative or sleep aid. Promethazine is not for use in treating symptoms of asthma, pneumonia, or other lower respiratory tract infections. Promethazine may also be used for purposes not listed in this medication guide. What should I discuss with my healthcare provider before taking promethazine? Promethazine should not be given to a child younger than 2 years old. Promethazine can cause severebreathing problems or in very young children. Carefully follow your doctor's instructions when giving this medicine to a child of any age. You should not take this medicine if you are allergic to promethazine or to similar medicines such as chlorpromazine, fluphenazine, mesoridazine, perphenazine, prochlorperazine, thioridazine, or trifluoperazine. Tell your doctor if you have ever had: asthma, chronic obstructive pulmonary disease (COPD), sleep apnea, or other breathing disorder; a history of seizures; a weak immune system (bone marrow depression); glaucoma; enlarged prostate or problems with urination; stomach ulcer or obstruction; heart disease or high blood pressure; liver disease; or if you have ever had a serious side effect while using promethazine or any other phenothiazine. Tell your doctor if you are or . How should I take promethazine? Follow all directions on your prescription label and read all medication guides or instruction sheets. Your doctor may occasionally change your dose. Use the medicine exactly as directed. Promethazine is often taken at bedtime or before meals. For motion sickness, promethazine is usually started within 1 hour before traveling. When used for surgery, promethazine is usually taken the night before the surgery. How often you take this medicine and the timing of your dose will depend on the condition being treated. Measure liquid medicine with the dosing syringe provided, or with a special dose-measuring spoon ormedicine cup. If you do not have a dose-measuring device, ask your pharmacist for one. If a child is using this medicine, tell your doctor if the child has any changes in weight. Promethazine doses are based on weight in children, and any changes may affect your child's dose. Call your doctor if your symptoms do not improve, or if they get worse while using promethazine. This medicine can cause unusual results with certain medical tests. Tell any doctor who treats you that you are using promethazine. Store at room temperature away from moisture, heat, and light. What happens if I miss a dose? Take the medicine as soon as you can, but skip the missed dose if it is almost time for your next dose. Do not take two doses at one time. What happens if I overdose? Seek emergency medical attention or call the Poison Help line at . Overdose symptoms may include overactive reflexes, loss of coordination, severe drowsiness or weakness, fainting, dilated pupils, weak or shallow breathing, or seizure (convulsions). What should I avoid while taking promethazine? This medicine may impair your thinking or reactions. Be careful if you drive or do anything that requires you to be alert. Avoid getting up too fast from a sitting or lying position, or you may feel dizzy. Get up slowly and steady yourself to prevent a fall. Drinking alcohol can increase certain side effects of promethazine. Avoid exposure to sunlight or tanning beds. Promethazine can make you sunburn more easily. Wear protective clothing and use sunscreen (SPF 30 or higher) when you are outdoors. What are the possible side effects of promethazine? Get emergency medical help if you have signs of an allergic reaction: hives; difficult breathing; swelling of your face, lips, tongue, or throat. Call your doctor at once if you have: severe drowsiness, weak or shallow breathing; a light-headed feeling, like you might pass out; confusion, agitation, hallucinations, nightmares; seizure (convulsions); fast or slow heartbeats; jaundice (yellowing of the skin or eyes); uncontrolled muscle movements in your face (chewing, lip smacking, frowning, tongue movement, blinking or eye movement); easy bruising or bleeding (nosebleeds, bleeding gums); sudden weakness or ill feeling, fever, chills, sore throat, mouth sores, red or swollen gums, trouble swallowing; or severe nervous system reaction--very stiff (rigid) muscles, high fever, sweating, confusion, fast or uneven heartbeats, tremors, feeling like you might pass out. Common side effects may include: drowsiness, dizziness; ringing in your ears; double vision; feeling nervous; dry mouth; or tiredness, sleep problems (insomnia). This is not a complete list of side effects and others may occur. Call your doctor for medical advice about side effects. You may report side effects to FDA at 6-248-JQT-4763. What other drugs will affect promethazine? Using promethazine with other drugs that make you drowsy can worsen this effect. Ask your doctor before using opioid medication, a sleeping pill, a muscle relaxer, or medicine for anxiety or seizures. Other drugs may affect promethazine, including prescription and abud-xot-cqkqcyz medicines, vitamins, and herbal products. Tell your doctor about all other medicines you use. Where can I get more information? Your doctor or pharmacist can provide more information about promethazine. Remember, keep this and all other medicines out of the reach of children, never share your medicines with others, and use this medication only for the indication prescribed. Every effort has been made to ensure that the information provided by [employer]. ('[employer]') is accurate, up-to-date, and complete, but no guarantee is made to that effect. Drug information contained herein may be time sensitive. [employer] information has been compiled for use by healthcare practitioners and consumers in the [place] and therefore [employer] does not warrant that uses outside of the [place] are appropriate, unless specifically indicated otherwise. [employer] drug information does not endorse drugs, diagnose patients or recommend therapy. [employer] drug information isan informational resource designed to assist licensed healthcare practitioners in caring for their p atients and/or to serve consumers viewing this service as a supplement to, and not a substitute for, the expertise, skill, knowledge and judgment of healthcare practitioners. The absence of a warningfor a given drug or drug combination in no way should be construed to indicate that the drug or drug combination is safe, effective or appropriate for any given patient. [employer] does not assume any responsibility for any aspect of healthcare administered with the aid of information [employer] provides. The information contained herein is not intended to cover all possible uses, directions, precautions, warnings, drug interactions, allergic reactions, or adverse effects. If you have questions about the drugs you are taking, check with your doctor, nurse or pharmacist. Copyright 0648-6504 [employer]. Version: 8.01. Revision Date: 10/19/2021. promethazine (rectal) (pro METH a zeen) Phenadoz, Promethegan What is the most important information I should know about promethazine rectal? Promethazine should not be given to a child younger than 2 years old. Promethazine can cause severebreathing problems or in very young children. What is promethazine rectal? Promethazine is used to treat allergy symptoms such as itching, runny nose, sneezing, itchy or watery eyes, hives, and itchy skin rashes. Promethazine also prevents motion sickness, and treats nausea and vomiting or pain after surgery. It is also used as a sedative or sleep aid. Promethazine is not for use in treating symptoms of asthma, pneumonia, or other lower respiratory tract infections. Promethazine may also be used for other purposes not listed in this medication guide. What should I discuss with my health care provider before using promethazine rectal? Promethazine should not be used in a child younger than 2 years old. Promethazine can cause severe breathing problems or in a child younger than 2. Carefully follow your doctor's instructions when giving this medicine to a child of any age. You should not use this medicine if you are allergic to promethazine or to similar medicines such as chlorpromazine, fluphenazine, mesoridazine, perphenazine, prochlorperazine, thioridazine, or trifluoperazine. Tell your doctor if you have ever had: asthma, chronic obstructive pulmonary disease (COPD), sleep apnea, or other breathing disorder; a history of seizures; a weak immune system (bone marrow depression); glaucoma; enlarged prostate or problems with urination; stomach ulcer or obstruction; heart disease or high blood pressure; liver disease; or if you have ever had a serious side effect while using promethazine or any other phenothiazine. Tell your doctor if you are or . How should I use promethazine rectal? Follow all directions on your prescription label and read all medication guides or instruction sheets. Use the medicine exactly as directed. Do not take promethazine by mouth. It is for use only in your rectum. Try to empty your bowel and bladder just before using the promethazine suppository. Remove the outer wrapper from the suppository before inserting it. Avoid handling the suppository too long or it will melt in your hands. For best results from the suppository, lie down after inserting it and hold in the suppository for a few minutes. The suppository will melt quickly once inserted and you should feel little or no discomfort while holding it in. Avoid using the bathroom just after you have inserted the suppository. Call your doctor if your symptoms do not improve, or if they get worse while using promethazine. This medicine can cause unusual results with certain medical tests. Tell any doctor who treats you that you are using promethazine rectal. Store the rectal suppositories in the refrigerator but do not allow them to freeze. What happens if I miss a dose? Use the medicine as soon as you can, but skip the missed dose if it is almost time for your next dose. Do not use two doses at one time. What happens if I overdose? Seek emergency medical attention or call the Poison Help line at . Overdose symptoms may include overactive reflexes, loss of coordination, severe drowsiness or weakness, fainting, dilated pupils, weak or shallow breathing, or seizure (convulsions). What should I avoid while using promethazine rectal? This medicine may impair your thinking or reactions. Be careful if you drive or do anything that requires you to be alert. Avoid getting up too fast from a sitting or lying position, or you may feel dizzy. Get up slowly and steady yourself to prevent a fall. Drinking alcohol can increase certain side effects of promethazine. Avoid exposure to sunlight or tanning beds. Promethazine can make you sunburn more easily. Wear protective clothing and use sunscreen (SPF 30 or higher) when you are outdoors. What are the possible side effects of promethazine rectal? Get emergency medical help if you have signs of an allergic reaction: hives; difficult breathing; swelling of your face, lips, tongue, or throat. Call your doctor at once if you have: severe drowsiness, weak or shallow breathing; a light-headed feeling, like you might pass out; confusion, agitation, hallucinations, nightmares; seizure (convulsions); fast or slow heartbeats; jaundice (yellowing of the skin or eyes); uncontrolled muscle movements in your face (chewing, lip smacking, frowning, tongue movement, blinking or eye movement); easy bruising or bleeding (nosebleeds, bleeding gums); sudden weakness or ill feeling, fever, chills, sore throat, mouth sores, red or swollen gums, trouble swallowing; or severe nervous system reaction--very stiff (rigid) muscles, high fever, sweating, confusion, fast or uneven heartbeats, tremors, feeling like you might pass out. Common side effects may include: drowsiness, dizziness; ringing in your ears; double vision; feeling nervous; dry mouth; or tiredness, sleep problems (insomnia). This is not a complete list of side effects and others may occur. Tell your doctor about any unusual or bothersome side effect. You may report side effects to FDA at 5-181-VRQ-5582. What other drugs will affect promethazine rectal? Using promethazine rectal with other drugs that make you drowsy can worsen this effect. Ask your doctor before using opioid medication, a sleeping pill, a muscle relaxer, or medicine for anxiety or seizures. Other drugs may affect promethazine rectal, including prescription and swkb-yog-isaesjl medicines, vitamins, and herbal products. Tell your doctor about all other medicines you use. Where can I get more information? Your doctor or pharmacist can provide more information about promethazine rectal. Remember, keep this and all other medicines out of the reach of children, never share your medicines with others, and use this medication only for the indication prescribed. Every effort has been made to ensure that the information provided by [employer]. ('[employer]') is accurate, up-to-date, and complete, but no guarantee is made to that effect. Drug information contained herein may be time sensitive. [employer] information has been compiled for use by healthcare practitioners and consumers in the [place] and therefore [employer] does not warrant that uses outside of the [place] are appropriate, unless specifically indicated otherwise. [employer] drug information does not endorse drugs, diagnose patients or recommend therapy. [employer] drug information isan informational resource designed to assist licensed healthcare practitioners in caring for their p atients and/or to serve consumers viewing this service as a supplement to, and not a substitute for, the expertise, skill, knowledge and judgment of healthcare practitioners. The absence of a warningfor a given drug or drug combination in no way should be construed to indicate that the drug or drug combination is safe, effective or appropriate for any given patient. [employer] does not assume any responsibility for any aspect of healthcare administered with the aid of information [employer] provides. The information contained herein is not intended to cover all possible uses, directions, precautions, warnings, drug interactions, allergic reactions, or adverse effects. If you have questions about the drugs you are taking, check with your doctor, nurse or pharmacist. Copyright 4598-7555 [employer]. Version: 6.01. Revision Date: 10/19/2021. Education Materials Hiatal Hernia The diaphragm is a thin sheet of muscle that runs across the top of the stomach. The small opening in the diaphragm where the esophagus and stomach meet is called the hiatus. When you eat, the musclearound the hiatus relaxes to let food pass from the esophagus into the stomach. The hiatus tightensto keep food and acid in the stomach. In some people, the hiatus is too large or the muscle around it is weak. Then the top of the stomach can push upward through the hiatus. This is called a hiatal hernia. A hiatal hernia can let stomach acid flow back up the esophagus. This is called acid reflux. Hiatal hernias are common. The cause of a hiatal hernia is not certain, but some things may make itmore likely. These may include obesity, , and vomiting or coughing. Many people with hiatal hernia do not have symptoms. Often the symptoms are like those of GERD or acid reflux. They can include: Burning feeling under the breastbone (heartburn) Other chest discomfort Frequent burping Food coming back up into the throat or mouth Acid taste in the mouth Trouble swallowing food or liquid Nighttime choking, coughing, or wheezing Feeling full after eating only a small amount of food Nausea and vomiting Treatment can reduce symptoms. This includes medicines and lifestyle changes. In severe cases, you may need surgery to tighten the hiatus. Home care Medicines help control symptoms, but they can't fix the hernia. Antacids help neutralize the normal acids in your stomach. You may find one works better than another for you. Acid blockers (H2 blockers) decrease acid production. Acid inhibitors (PPIs) decrease acid production in a different way than the blockers. Don't take NSAIDs such as aspirin, ibuprofen, and naproxen. These may worsen symptoms in some people. If you are taking these medicines for another medical problem, talk with your healthcare providerbefore stopping them. Lifestyle changes are important in treating your symptoms. You can help reduce or relieve your symptoms if you: Stop smoking and using tobacco. Also if possible, avoid second-hand smoke. Lose excess weight. Excess weight puts pressure on the stomach and esophagus. Symptoms can be worsened by certain foods. Limit or avoid fatty, fried, and spicy foods, as well ascoffee, chocolate, mint, and foods with high acid content such as tomatoes and citrus fruit and juices (orange, grapefruit, lemon). Eat smaller amounts at a time. Don't get overfull. Don't use alcohol, caffeine, or tobacco. They can delay healing and worsen your symptoms. Follow-up care Follow up with your healthcare provider. Regular visits may be needed to check on your health. Be sure to take any medicines as prescribed and keep all your appointments. In some cases, you may need surgery to stop symptoms. Your healthcare provider will talk with you about this option if needed. When to seek medical advice Call your healthcare provider right away if any of these occur: Severe pain in your chest or abdomen Can t keep down food or liquid Symptoms get worse Other symptoms as indicated by your healthcare provider Call 911 Call 911 if any of these occur: Trouble breathing or swallowing Worsening chest pain, especially if different from usual Vomiting blood Large amounts of blood in stool [id number] [employer]. [address] [place] [address]. All rights reserved. This information is not intended as a substitute for professional medical care. Always follow yourhealthcare professional's instructions. Additional Information VACCINATE! IT SAVES LIVES! Members of the community who have not yet received the COVID-19 vaccine and would like to receive it can visit one of [facility] vaccine clinics. There are many vaccine clinic locations within the [facility]. For locations and available times, please visit [email or web address]. It is important to note that some COVID mobile vaccine clinics are held outdoors and may be canceled in rainy orstormy conditions. To learn more about pediatric vaccinations (ages 5-11), we invite you to visit the [facility] webpage. [email or web address] learn more about the COVID-19 vaccine, we invite you to visit the [facility] website for a list of frequently asked questions. [email or web address] [facility] Patient Portal Access Instructions: Stay connected with your healthcare team and access your personal medical information anytime with the [facility] Patient Portal. If you would like a full copy of your medical records please contact the [facility] Medical Records Department [place] through Sunday between 8a.m. and 4:30p.m. Please follow the directions below to access the portal: 1.Access the email account you provided upon registration to the hospital.2.Look for an invitation email from [facility].3.Open the email and access the invitation link: Accept Invitation to [facility] [employer]4.Fill in the required roth to create your account. Sign into [email or web address] with your username and password that you created in the above steps to stay up to date. You can then view a summary of results, a summary of your visits, and the ability to download your summaries to your computer or send the information securely to a physician. Remember that your healthcare information is confidential, so carefully consider who you will allow to register on the [facility] [employer] Patient Portal for access to your information. You can also access the [email or web address] Patient Portal on the [employer]. Simply click on Health Records under [employer] and then click on the [facility] logo. HOW TO SAFELY DISPOSE OF PRESCRIPTION MEDICATIONS Please use one of the following methods to safely dispose of your unused medications. 1.Use a drug disposal kit: the drug disposal pouch allows you to safely discard your old and unuseddrugs. Ask your nurse to give you one when you are discharged.2.Visit a local take-back location: Many local pharmacies and police departments have programs that collect old and unwanted prescriptiondrugs. Call your local pharmacy or go to http://[employer].IQMS/[email or web address] to find one close to you.3.Make use of household items: Use cat litter or old coffee grounds to dispose medications if other options arenot available. Mix your drugs with these household products, seal them in an airtight container andthrow it into the garbage. Call [facility]: [phone] to be sure your drugs can be disposed of in this way. Some medicines may require a different approach.4.Never flush your medications down the toilet. IF YOU HAVE BEEN PRESCRIBED AN OPIOIDS FOR PAIN If you have been prescribed an opioid (such as hydrocodone, oxycodone or morphine), it is critical to understand the possible side effects and risks of opioid pain medications. Even when taken as directed, opioids can have several side effects including: Tolerance, meaning you might need to take more of a medication for the same pain relief. Nausea, vomiting and/or constipation. Sleepiness, dizziness, dry mouth, confusion, depression or itching. Physical dependence, meaning you have withdrawal symptoms when a medication is stopped ? this can develop within a few days. KNOW YOUR RESPONSIBILITIES It is important to know exactly how much and how often to take the opioid pain medications you are prescribed. Never take opioids in higher amounts or more often than prescribed. Do not combine opioids with alcohol or other drugs that cause drowsiness, such as benzodiazepines, also known as benzos,including diazepam and alprazolam, muscle relaxants or sleep aids. Never sell or share prescriptionopioids. This is illegal. Store opioids in a secure place and out of reach of others (including children, family, friends and visitors). The last page(s) of this document has been signed and retained as a CHART COPY Signatures Patient Education Materials Hiatal Hernia Medication Leaflets promethazine (rectal), promethazine (oral) My discharge plan and instructions have been reviewed and explained to me and I,TRUONG ROSARIO understand my current condition and have read and understand these discharge instructions. I have received a written copy of the plan/instructions. If I have questions, I am aware that I should contact my doctor. 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 Multiplanar reformatted images are provided for review. Automated exposure control, iterative reconstruction, and/or weight based adjustment of the mA/kV was utilized to reduce the radiation dose to as low as reasonably achievable. COMPARISON: Radiograph of the abdomen June 25, 2022 HISTORY: ORDERING SYSTEM PROVIDED HISTORY: Reason for Exam: pain FINDINGS: Lower Chest: Coronary artery calcifications. Moderate hiatal hernia. Organs: Cholecystectomy. Scattered pancreatic calcified granulomas. Enlarged bilateral adrenal glands with suggested multiple small nodules. The liver and pancreas are unremarkable. No hydronephrosis or hydroureter. Bilateral renal cysts. Indeterminate density oval circumscribed structure in the anterior left mid kidney measuring 1.5 x 1.1 cm (series 2, image 53). GI/Bowel: No bowel obstruction, pneumoperitoneum, or ascites. Appendix is normal. Scattered colon diverticula without evidence of diverticulitis. Pelvis: Bladder is nearly decompressed, limiting its evaluation although there is suggested mild circumferential wall thickening. Prostate is normal in size. Peritoneum/Retroperitoneum: Nonaneurysmal abdominal aorta with atherosclerotic plaque. No enlarged lymph nodes. Bones/Soft Tissues: Degenerative changes of the spine. IMPRESSION: Moderate hiatal hernia. Bilateral adrenal gland thickening with suggested multiple nodules. Findings could relate to hyperplasia with multiple adenomas although further investigation with dedicated adrenal gland protocol cross-sectional imaging should be considered to evaluate for underlying malignancy, or comparison with prior cross-sectional exams. Indeterminate 1.5 cm density in the left anterior mid kidney, which can also be further evaluated with the above suggestions if warranted. Mild circumferential bladder wall thickening of a nearly decompressed bladder, could relate to under distension although correlate for any symptoms of cystitis. Interpreted by: Nicholas Khalil Preliminary Report By: Nicholas Khalil Electronically signed By Nicholas Khalil Dictated Date: 06/25/2022 4:47:43 PM Prelim Date: 06/25/2022 4:54:29 PM Sign Date: 06/25/2022 4:54:29 PM Ordering Provider: [facility]10-02-2022 Note ORIGINAL EXAMINATION: CT OF THE ABDOMEN AND PELVIS WITH CONTRAST 06/25/2022 4:32 pm TECHNIQUE: CT of the abdomen and pelvis was performed with the administration of intravenous contrast. Multiplanar reformatted images are provided for review. Automated exposure control, iterative reconstruction, and/or weight based adjustment of the mA/kV was utilized to reduce the radiation dose to as low as reasonably achievable. COMPARISON: Radiograph of the abdomen June 25, 2022 HISTORY: ORDERING SYSTEM PROVIDED HISTORY: Reason for Exam: pain FINDINGS: Lower Chest: Coronary artery calcifications. Moderate hiatal hernia. Organs: Cholecystectomy. Scattered pancreatic calcified granulomas. Enlarged bilateral adrenal glands with suggested multiple small nodules. The liver and pancreas are unremarkable. No hydronephrosis or hydroureter. Bilateral renal cysts. Indeterminate density oval circumscribed structure in the anterior left mid kidney measuring 1.5 x 1.1 cm (series 2, image 53). GI/Bowel: No bowel obstruction, pneumoperitoneum, or ascites. Appendix is normal. Scattered colon diverticula without evidence of diverticulitis. Pelvis: Bladder is nearly decompressed, limiting its evaluation although there is suggested mild circumferential wall thickening. Prostate is normal in size. Peritoneum/Retroperitoneum: Nonaneurysmal abdominal aorta with atherosclerotic plaque. No enlarged lymph nodes. Bones/Soft Tissues: Degenerative changes of the spine. IMPRESSION: Moderate hiatal hernia. Bilateral adrenal gland thickening with suggested multiple nodules. Findings could relate to hyperplasia with multiple adenomas although further investigation with dedicated adrenal gland protocol cross-sectional imaging should be considered to evaluate for underlying malignancy, or comparison with prior cross-sectional exams. Indeterminate 1.5 cm density in the left anterior mid kidney, which can also be further evaluated with the above suggestions if warranted. Mild circumferential bladder wall thickening of a nearly decompressed bladder, could relate to under distension although correlate for any symptoms of cystitis. Interpreted by: Nicholas Khalil Preliminary Report By: Nicholas Khalil Electronically signed By Nicholas Khalil Dictated Date: 06/25/2022 4:47:43 PM Prelim Date: 06/25/2022 4:54:29 PM Sign Date: 06/25/2022 4:54:29 PM Ordering Provider: [facility]10-02-2022 Note ORIGINAL EXAMINATION: TWO XRAY VIEWS OF THE ABDOMEN AND SINGLE XRAY VIEW OF THE CHEST 06/25/2022 3:24 pm COMPARISON: None. HISTORY: ORDERING SYSTEM PROVIDED HISTORY: Reason for Exam: Cyclic vomiting and pain. FINDINGS: Chest: Cardiomediastinal silhouette is within normal limits. Atherosclerotic aorta. No focal lung consolidation, pleural effusion, pneumothorax, or vascular congestion. Abdomen: Numerous gas-filled loops of small and large bowel which do not appear significantly dilated. Mild colonic stool burden. No evidence of free intraperitoneal air. Cholecystectomy clips noted. Pelvic phleboliths. Bones: No acute osseous abnormality. IMPRESSION: Numerous gas-filled loops of small and large bowel, which do not appear significantly dilated. Findings may represent a mild ileus. I have personally reviewed the images of this examination and agree with the resident's findings and interpretation. Interpreted by: Han Carrion MD Preliminary Report By: Dez Quintana Electronically signed By Han Carrion MD Dictated Date: 06/25/2022 3:36:56 PM Prelim Date: 06/25/2022 3:40:37 PM Sign Date: 06/25/2022 3:57:35 PM Ordering Provider: [facility]10-02-2022 Note ORIGINAL EXAMINATION: TWO XRAY VIEWS OF THE ABDOMEN AND SINGLE XRAY VIEW OF THE CHEST 06/25/2022 3:24 pm COMPARISON: None. HISTORY: ORDERING SYSTEM PROVIDED HISTORY: Reason for Exam: Cyclic vomiting and pain. FINDINGS: Chest: Cardiomediastinal silhouette is within normal limits. Atherosclerotic aorta. No focal lung consolidation, pleural effusion, pneumothorax, or vascular congestion. Abdomen: Numerous gas-filled loops of small and large bowel which do not appear significantly dilated. Mild colonic stool burden. No evidence of free intraperitoneal air. Cholecystectomy clips noted. Pelvic phleboliths. Bones: No acute osseous abnormality. IMPRESSION: Numerous gas-filled loops of small and large bowel, which do not appear significantly dilated. Findings may represent a mild ileus. I have personally reviewed the images of this examination and agree with the resident's findings and interpretation. Interpreted by: Han Carrion MD Preliminary Report By: Dez Quintana Electronically signed By Han Carrion MD Dictated Date: 06/25/2022 3:36:56 PM Prelim Date: 06/25/2022 3:40:37 PM Sign Date: 06/25/2022 3:57:35 PM Ordering Provider: [facility] [place]09-24-2022 Hospital Discharge instructions Patient Education 06/17/2022 06:03:02 Fracture, Foot Foot Fracture You have a broken bone (fracture) in your foot. This will cause pain, swelling, and often bruising.It will usually take about 4 to 8 weeks to heal. A foot fracture may be treated with a special shoe, splint, cast, or boot. Home care Follow these guidelines when caring for yourself at home: You may be given a splint, cast, shoe, or boot to keep the injured area from moving. Unless you were told otherwise, use crutches or a walker. Don t put weight on the injured foot until your health care provider says you can do so. (You can rent crutches and a walker at many pharmacies and [facility] orthopedic supply stores.) Don t put weight on a splint, or it will break. Keep your leg elevated to reduce pain and swelling. When sleeping, put a pillow under the injured leg. When sitting, support the injured leg so it is above your waist. This is very important during the first 2 days (48 hours). Put an ice pack on the injured area. Do this for 20 minutes every 1 to 2 hours the first day for pain relief. You can make an ice pack by wrapping a plastic bag of ice cubes in a thin towel. As the ice melts, be careful that the splint, cast, boot, or shoe doesn t get wet. You can place the ice pack directly over the splint or cast. Unless told otherwise, you can open the boot or shoe to apply the ice pack. Continue using the ice pack 3 to 4 times a day for the next 2 days. Then use the ice pack as needed to ease pain and swelling. Keep the splint, cast, boot, or shoe dry. When bathing, protect it with a large plastic bag, rubber-banded at the top end. If a fiberglass splint or cast or boot gets wet, you can dry it with a hairspring fabrication supervisor. Unless told otherwise, you can take off the boot or shoe to bathe. You may use acetaminophen or ibuprofen to control pain, unless another pain medicine was prescribed. If you have chronic liver or kidney disease, talk with your healthcare provider before using thesemedicines. Also talk with your provider if you ve had a stomach ulcer or gastrointestinal bleeding. Don t put creams or objects under the cast if you have itching. Follow-up care Follow up with your healthcare provider, or as advised. This is to make sure the bone is healing the way it should. If you were given a splint, it may be changed to a cast or boot at your follow-up visit. X-rays may be taken. You will be told of any new findings that may affect your care. When to seek medical advice Call your healthcare provider right away if any of these occur: The cast or splint cracks The plaster cast or splint becomes wet or soft The fiberglass cast or splint stays wet for more than 24 hours Bad odor from the cast or wound fluid stains the cast Tightness or pain under the cast or splint gets worse Toes become swollen, cold, blue, numb, or tingly You can t move your toes Skin around cast or splint becomes red Fever of 100.4 F (38 C) or higher, or as directed by your healthcare provider [id number] [employer]. [address] [place] [address], [place] [address]. All rights reserved. This information is not intended as a substitute for professional medical care. Always follow yourhealthcare professional's instructions. Follow Up Care 06/17/2022 05:30:07 With:BILLIE JUÁREZ DPM, Surgery Address: [address] [place] [address] Foot and Ankle [place], [place] [id number]- When:2-4 days [facility] 09-24-2022 Note Discharge Instructions Thank you for allowing [facility] to assist you with your healthcare needs. The following is importantdischarge information regarding your hospital visit. Diagnosis from Today's Visit Foot pain-swelling Monge fracture What to Do Next Instructions from Your Care Team Discharge Home Equipment - Ordered -- Crutches, 99 month(s), 06/17/22 6:02:00 EDT Discharge Home Equipment - Ordered -- Walking Boot, 99 month(s), 06/17/22 6:02:00 EDT Post Acute Orders No qualifying data available. You Need to Schedule the Following Appointments Follow Up with BILLIE JUÁREZ DPM, Surgery When Within 2-4 days Where: [address] [place] [address], [facility] [address] [place] [address] Foot and Ankle [place], [place] [id number]- Allergies Macrobid Zoloft meloxicam penicillin Medications Please ask your primary doctor or pharmacist before taking any other medication not listed, including over the counter drugs, herbal medications, vitamins and or supplements as they may interact withyour home medications. What How Much When Why Instructions Last Dose New acetaminophen-oxyCODONE (acetaminophen-oxyCODONE 325 mg-5 mg oral tablet) 1 tab(s) by mouth Every 8 hours as needed for as needed for pain Monge fracture Duration: 4 Days Printed Prescription Please take this list to your next doctor s visit. Bring all medications you take, including over the counter medications, herbals and other supplements with you to your doctor s visit. Patients and families are reminded to discard old lists and to update any records with all medication providers or retail pharmacies. Education Materials Foot Fracture You have a broken bone (fracture) in your foot. This will cause pain, swelling, and often bruising.It will usually take about 4 to 8 weeks to heal. A foot fracture may be treated with a special shoe, splint, cast, or boot. Home care Follow these guidelines when caring for yourself at home: You may be given a splint, cast, shoe, or boot to keep the injured area from moving. Unless you were told otherwise, use crutches or a walker. Don t put weight on the injured foot until your health care provider says you can do so. (You can rent crutches and a walker at many pharmacies and surgicalor orthopedic supply stores.) Don t put weight on a splint, or it will break. Keep your leg elevated to reduce pain and swelling. When sleeping, put a pillow under the injured leg. When sitting, support the injured leg so it is above your waist. This is very important during the first 2 days (48 hours). Put an ice pack on the injured area. Do this for 20 minutes every 1 to 2 hours the first day for pain relief. You can make an ice pack by wrapping a plastic bag of ice cubes in a thin towel. As the ice melts, be careful that the splint, cast, boot, or shoe doesn t get wet. You can place the ice pack directly over the splint or cast. Unless told otherwise, you can open the boot or shoe to apply the ice pack. Continue using the ice pack 3 to 4 times a day for the next 2 days. Then use the ice pack as needed to ease pain and swelling. Keep the splint, cast, boot, or shoe dry. When bathing, protect it with a large plastic bag, rubber-banded at the top end. If a fiberglass splint or cast or boot gets wet, you can dry it with a hairspring fabrication supervisor. Unless told otherwise, you can take off the boot or shoe to bathe. You may use acetaminophen or ibuprofen to control pain, unless another pain medicine was prescribed. If you have chronic liver or kidney disease, talk with your healthcare provider before using thesemedicines. Also talk with your provider if you ve had a stomach ulcer or gastrointestinal bleeding. Don t put creams or objects under the cast if you have itching. Follow-up care Follow up with your healthcare provider, or as advised. This is to make sure the bone is healing the way it should. If you were given a splint, it may be changed to a cast or boot at your follow-up visit. X-rays may be taken. You will be told of any new findings that may affect your care. When to seek medical advice Call your healthcare provider right away if any of these occur: The cast or splint cracks The plaster cast or splint becomes wet or soft The fiberglass cast or splint stays wet for more than 24 hours Bad odor from the cast or wound fluid stains the cast Tightness or pain under the cast or splint gets worse Toes become swollen, cold, blue, numb, or tingly You can t move your toes Skin around cast or splint becomes red Fever of 100.4 F (38 C) or higher, or as directed by your healthcare provider [id number] [employer]. [address] [place] [address]. All rights reserved. This information is not intended as a substitute for professional medical care. Always follow yourhealthcare professional's instructions. Additional Information VACCINATE! IT SAVES LIVES! Members of the community who have not yet received the COVID-19 vaccine and would like to receive it can visit one of [facility] vaccine clinics. There are many vaccine clinic locations within the [facility]. For locations and available times, please visit [email or web address]. It is important to note that some COVID mobile vaccine clinics are held outdoors and may be canceled in rainy orstormy conditions. To learn more about pediatric vaccinations (ages 5-11), we invite you to visit the [facility] webpage. [email or web address]/[email or web address] [email or web address] learn more about the COVID-19 vaccine, we invite you to visit the [facility] website for a list of frequently asked questions. [email or web address] [facility] [employer] Patient Portal Access Instructions: Stay connected with your healthcare team and access your personal medical information anytime with the [email or web address] Patient Portal. If you would like a full copy of your medical records please contact the [facility] Medical Records Department Sunday through Sunday between 8a.m. and 4:30p.m. Please follow the directions below to access the portal: 1.Access the email account you provided upon registration to the [facility].2.Look for an invitation email from [facility].3.Open the email and access the invitation link: Accept Invitation to [email or web address].Fill in the required roth to create your account. Sign into [email or web address].[email or web address] with your username and password that you created in the above steps to stay up to date. You can then view a summary of results, a summary of your visits, and the ability to download your summaries to your computer or send the information securely to a physician. Remember that your healthcare information is confidential, so carefully consider who you will allow to register on the [email or web address] Patient Portal for access to your information. You can also access the [email or web address] Patient Portal on the [employer]. Simply click on Health Records under [employer] and then click on the [employer] logo. HOW TO SAFELY DISPOSE OF PRESCRIPTION MEDICATIONS Please use one of the following methods to safely dispose of your unused medications. 1.Use a drug disposal kit: the drug disposal pouch allows you to safely discard your old and unuseddrugs. Ask your nurse to give you one when you are discharged.2.Visit a local take-back location: Many local pharmacies and police departments have programs that collect old and unwanted prescriptiondrugs. Call your local pharmacy or go to http://[employer].IQMS/9I0Yj5r to find one close to you.3.Make use of household items: Use cat litter or old coffee grounds to dispose medications if other options arenot available. Mix your drugs with these household products, seal them in an airtight container andthrow it into the garbage. Call [facility]: [phone] to be sure your drugs can be disposed of in this way. Some medicines may require a different approach.4.Never flush your medications down the toilet. IF YOU HAVE BEEN PRESCRIBED AN OPIOIDS FOR PAIN If you have been prescribed an opioid (such as hydrocodone, oxycodone or morphine), it is critical to understand the possible side effects and risks of opioid pain medications. Even when taken as directed, opioids can have several side effects including: Tolerance, meaning you might need to take more of a medication for the same pain relief. Nausea, vomiting and/or constipation. Sleepiness, dizziness, dry mouth, confusion, depression or itching. Physical dependence, meaning you have withdrawal symptoms when a medication is stopped ? this can develop within a few days. KNOW YOUR RESPONSIBILITIES It is important to know exactly how much and how often to take the opioid pain medications you are prescribed. Never take opioids in higher amounts or more often than prescribed. Do not combine opioids with alcohol or other drugs that cause drowsiness, such as benzodiazepines, also known as benzos,including diazepam and alprazolam, muscle relaxants or sleep aids. Never sell or share prescriptionopioids. This is illegal. Store opioids in a secure place and out of reach of others (including children, family, friends and visitors). The last page(s) of this document has been signed and retained as a CHART COPY Signatures Patient Education Materials Fracture, Foot Medication Leaflets My discharge plan and instructions have been reviewed and explained to me and IFILI DANIEL F understand my current condition and have read and understand these discharge instructions. I have received a written copy of the plan/instructions. If I have questions, I am aware that I should contact my doctor. 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 FINDINGS: There is a nondisplaced transverse fracture across the base of the left 5th metatarsal. No intra-articular fracture involvement is present. There is mild arthritic narrowing of the left 1st MTP joint and mild arthritis at the tarsometatarsal junctions. Mild plantar calcaneal spur formation is present. No foreign body is detected in the soft tissue. IMPRESSION: Nondisplaced fracture across the base of the left 5th metatarsal. Mild osteoarthritic findings. Interpreted by: Narinder Gomez MD Preliminary Report By: Narinder Gomez MD Electronically signed By Narinder Gomez MD Dictated Date: 06/17/2022 5:54:08 AM Prelim Date: 06/17/2022 5:56:44 AM Sign Date: 06/17/2022 5:56:44 AM Ordering Provider: MIGUEL ÁNGEL BARROSO [facility]09-24-2022 Note ORIGINAL EXAMINATION: THREE XRAY VIEWS OF THE LEFT FOOT 06/17/2022 5:52 am COMPARISON: Left foot x-ray on 12/10/2015 HISTORY: ORDERING SYSTEM PROVIDED HISTORY: Reason for Exam: pain Injury. FINDINGS: There is a nondisplaced transverse fracture across the base of the left 5th metatarsal. No intra-articular fracture involvement is present. There is mild arthritic narrowing of the left 1st MTP joint and mild arthritis at the tarsometatarsal junctions. Mild plantar calcaneal spur formation is present. No foreign body is detected in the soft tissue. IMPRESSION: Nondisplaced fracture across the base of the left 5th metatarsal. Mild osteoarthritic findings. Interpreted by: Narinder Gomez MD Preliminary Report By: Narinder Gomez MD Electronically signed By Narinder Gomez MD Dictated Date: 06/17/2022 5:54:08 AM Prelim Date: 06/17/2022 5:56:44 AM Sign Date: 06/17/2022 5:56:44 AM Ordering Provider: MIGUEL ÁNGEL [facility]02-10-2022 Note Patient Education Material Cardiovascular Lab Discharge Instructions [facility] Radial Cardiac Catheterization A catheter was inserted through an artery in your arm and then it was carefully guided up to your heart. Once it reached your heart, the catheter was placed into 2 different arteries that deliver blood to your heart and contrast dye was injected. The dye allowed your doctor to see any areas in yourcoronary arteries that were blocked. If you had some blockage, you may have had angioplasty and a stent placed in your heart during the procedure. What to Expect at Home: Your arm may be sore where the catheter was placed. You may also have some bruising around and below the insertion site. The bruising may change color and possibly extend to your hand. This is normal. Activity: ? You may shower 24?48 hours after the procedure or as directed by your health care provider. Remove the bandage (dressing) and gently wash the site with plain soap and water. Pat the area dry with aclean towel. Do not rub the site, because this may cause bleeding. ? Do not take baths, swim, or use a hot tub until your health care provider approves. ? Check your insertion site every day for redness, swelling, or drainage. ? Do not apply powder or lotion to the site. ? Do not flex or bend the affected arm for 24 hours or as directed by your health care provider. ? Do not push or pull heavy objects with the affected arm for 24 hours or as directed by your health care provider. ? Do not lift over 10 lb (4.5 kg) for 5 days after your procedure or as directed by your health care provider. ? Ask your health care provider when it is okay to: ? Return to work or school. ? Resume usual physical activities or sports. ? Resume sexual activity. Incision Care: Remove dressing in 24 hours unless otherwise instructed. If your incision bleeds, lie down and put pressure on it for 30 minutes. Medication: Most people take aspirin or another medicine called Plavix (Clopidogrel), Brilinta, or Effient (Prasugrel) after a Stent procedure. These medicines are blood thinners and they keep your blood from forming clots in your arteries and stent. A blood clot can lead to a heart attack. Take medicines exactly as your doctor tells you. Do not stop taking them without talking with your doctor first. Nutrition: You should eat a heart healthy diet, exercise and follow a healthy lifestyle. Your doctor can referyou to other health care providers who can help you learn about exercise and healthy foods that will fit into your lifestyle. Notify your doctor immediately if: ? There is bleeding at the catheter insertion site that does not stop when you apply pressure. ? Your arm below where the catheter was inserted becomes pale, is cool to the touch, or is numb. ? The small incision for you catheter becomes red or painful, or yellow or green discharge is draining from it. ? You have chest pain or shortness of breath that does not go away with rest. ? You have dizziness, fainting or you are very tired. ? You have problems taking any of your heart medications. ? You have chills or a fever over 101 degrees F. Additional Instructions to follow for 24 hours if you received Sedation: ? Rest for the remainder of the day ? Drink plenty of liquids today ? Do not drive a car or operate machinery ? Do not drink alcoholic beverages ? Do not make any important decisions ? Do not sign important or legal papers ? For your safety, plan to have a responsible adult with you for the rest of the day and also the [facility]03-07-2021 NotePatient: TRUONG ROSARIO III Age: 60 years Sex: Male : 1960 Associated Diagnoses: Abdominal pain; Acute chest pain Author: PAZ LEE DO Discharge Information Discharge Summary Information: Admit Date: Admitted 11/27/2020. Discharge Date: Discharged 11/28/2020. Admitting Diagnosis: Abdominal pain - PNED [id number], Medical, Acute chest pain - [id number] R07.9, Medical. Discharge Diagnosis: Abdominal pain - PNED [id number], Medical, Acute chest pain - [id number] R07.9, Medical. Discharge Medications ST Home Medications (15) Active aspirin 81 mg oral tablet, chewable 81 mg = 1 tabs, ORAL, DAILY atorvastatin 40 mg oral tablet 40 mg = 1 tabs, ORAL, DAILY Brilinta (ticagrelor) 90 mg oral tablet 90 mg = 1 tabs, ORAL, BID citalopram 40 mg oral tablet 40 mg = 1 tabs, ORAL, DAILY lansoprazole 15 mg oral delayed release capsule 15 mg = 1 caps, ORAL, DAILY metoclopramide 10 mg oral tablet 10 mg = 1 tabs, PRN, ORAL, DAILY metoprolol succinate 25 mg oral tablet, extended release 25 mg = 1 tabs, ORAL, DAILY Mobic 15 mg oral tablet 15 mg = 1 tabs, ORAL, PRN nitroglycerin 0.4 mg sublingual tablet 0.4 mg = 1 tabs, PRN, Sublingual, Q5MIN Norvasc 10 mg oral tablet 10 mg = 1 tabs, ORAL, DAILY Refresh Redness Relief 1 drops, PRN, Both Eyes, DAILY sucralfate 1 g oral tablet 1 g = 1 tabs, ORAL, BID traZODone 50 mg oral tablet 75 mg = 1.5 tabs, ORAL, QHS TriCor 145 mg, ORAL, DAILY WITH BREAKFAST Zestril 20 mg oral tablet 20 mg = 1 tabs, ORAL, DAILY : (Complete Discharge Med Rec prior to selecting ST). Hospital Course Clinical Summary see below. Condition on Discharge Discharge Status: improved. Procedures and Treatment Completed During Hospital Stay Procedures/Treatments: None. Abdominal pain, nausea vomiting likely cyclical vomiting syndrome - resolved with Haldol, Benadryl.Patient also advised to follow up with GI. STANLEY, in setting of dehydration - resolved with IVF Leukocytosis in setting of dehydration - resolved with IVF Lactic acidosis resolved Chest pain - cardiology was following - No intervention needed. Continue all outpatient cardiac meds. Recommend follow-up with Dr. Cruz in 1 to 2 weeks History of hypertension, hyperlipidemia, depression, GERD, CAD status post PCI 30 mins spent coordinating discharge General: NAD, resting comfortably. HEENT: NCAT, supple. Respiratory: CTAB. No wheezes, rhonchi. Symmetrical chest wall expansion. Cardiovascular: RRR. Normal S1S2. No murmurs. No edema. Gastrointestinal: Soft, NT, ND. +BS. Musculoskeletal: Normal ROM. Normal strength. No swelling or deformity. Integumentary: Warm and dry. Neurologic: A&Ox3. No focal deficits. Cognition and Speech: Oriented, Speech clear and coherent. Psychiatric: Cooperative, Appropriate mood & affect, Normal judgment. Discharge Plan Diet Diet on Discharge: Cardiac. Activity Activity on Discharge: Ambulate. Education and Follow-up Counseled: patient. Disposition Discharge to: home. Sent to for review: PRERNA LEMUS DO [facility]03-07-2021 NotePatient Education Material Gastrointestinal Frequent Abdominal Pain: Care Instructions Your Care Instructions Frequent abdominal pain means you have belly pain that occurs at least 3 times over 3 months. Sometimes the pain is linked to eating certain foods or having a bowel movement. But most of the time thepain cannot be explained. Your doctor may use the words functional abdominal pain or recurrent abdominal pain to describe theproblem. It can be hard to deal with pain when your doctor cannot find a cause, even after tests are done. When the pain is very bad, it can keep you from doing your normal activities. Sometimes stress can make your pain worse. Even if you cannot make the pain go away, there are things you can do to make it a little easier to manage. Follow-up care is a interiano part of your treatment and safety. Be sure to make and go to all appointments, and call your doctor if you are having problems. It's also a good idea to know your test resultsand keep a list of the medicines you take. How can you care for yourself at home? ? Keep a symptom diary. This can help you see if there are events or emotions that make your pain worse. Think about what you ate, drank, or felt before the pain began. Maybe pain comes after a stressful meeting or when you have spicy foods, dairy products, or alcohol. ? Reduce stress. Breathing exercises and relaxation techniques can help. Try taking a walk or doingother exercise when you feel stressed. ? Try cognitive-behavioral therapy. You can work with a counselor to learn how to do this therapy. It can help you cope with pain by changing how you think. It can help you notice discouraging thoughts that make you feel bad. When should you call for help? Call your doctor now or seek immediate medical care if: ? You have a fever and belly pain. ? You have severe pain that is different from your usual belly pain. Watch closely for changes in your health, and be sure to contact your doctor if: ? Your pattern of pain changes. ? You have questions or concerns about your belly pain. Where can you learn more? Go to https://www.[employer]/patientEd Enter A944 in the search box to learn more about Frequent Abdominal Pain: Care Instructions. Current as of: March 19, 2019 Content Version: 12.5; ? [employer] Care instructions adapted under license by your healthcare professional. If you have questions about a medical condition or this instruction, always ask your healthcare professional. [employer] disclaims any warranty or liability for your use of this information. Trauma and Injuries Dehydration: Care Instructions Your Care Instructions Dehydration happens when your body loses too much fluid. This might happen when you do not drink enough water or you lose large amounts of fluids from your body because of diarrhea, vomiting, or sweating. Severe dehydration can be life-threatening. Water and minerals called electrolytes help put your body fluids back in balance. Learn the early signs of fluid loss, and drink more fluids to prevent dehydration. Follow-up care is a interiano part of your treatment and safety. Be sure to make and go to all appointments, and call your doctor if you are having problems. It's also a good idea to know your test resultsand keep a list of the medicines you take. How can you care for yourself at home? ? To prevent dehydration, drink plenty of fluids, enough so that your urine is light yellow or clear like water. Choose water and other caffeine-free clear liquids until you feel better. If you have kidney, heart, or liver disease and have to limit fluids, talk with your doctor before you increase the amount of fluids you drink. ? If you do not feel like eating or drinking, try taking small sips of water, sports drinks, or other rehydration drinks. ? Get plenty of rest. To prevent dehydration ? Add more fluids to your diet and daily routine, unless your doctor has told you not to. ? During hot weather, drink more fluids. Drink even more fluids if you exercise a lot. Stay away from drinks with alcohol or caffeine. ? Watch for the symptoms of dehydration. These include: ? A dry, sticky mouth. ? Dark yellow urine, and not much of it. ? Dry and sunken eyes. ? Feeling very tired. ? Learn what problems can lead to dehydration. These include: ? Diarrhea, fever, and vomiting. ? Any illness with a fever, such as pneumonia or the flu. ? Activities that cause heavy sweating, such as endurance races and heavy outdoor work in hot or humid weather. ? Alcohol or drug use or problems caused by quitting their use (withdrawal). ? Certain medicines, such as cold and allergy pills (antihistamines), diet pills (diuretics), and laxatives. ? Certain diseases, such as diabetes, cancer, and heart or kidney disease. When should you call for help? Call 911 anytime you think you may need emergency care. For example, call if: ? You passed out (lost c (more content not included)...[facility]03-07-2021 [id number]- Received report from CARIN Whiteside 1999- Patient is A/OX3 and stable. Patient denies any chest pain or abdominal pain at this time. Updated patient on plan of care. Safety maintained. Call light within reach.[facility]03-06-2021 NotePatient: TRUONG ROSARIO III Age: 60 years Sex: Male : 1960 Associated Diagnoses: None Author: PAZ LEE DO 60-year-old male with history of hypertension, hyperlipidemia, depression, GERD, history of cyclical vomiting syndrome in setting of marijuana use, CAD status post PCI in 2018 presented to the emergency room with 3 days of nausea and vomiting. He states he vomited at least greater than 20 times perday. Could not tolerate any p.o. intake. He did try taking Zofran, Reglan, Maalox at home without any relief. He was given Haldol and Benadryl in the emergency room which has helped. Has not had any episodes of emesis since admission to the hospital. He also stated he had some chest pain in the emergency room however this morning he states it was epigastric and felt like heartburn. Labs significant for STANLEY creatinine 1.9. Potassium 3.4. White blood cell 17.8 lactate has normalized. Troponin 0.070, 0.095. CT abdomen pelvis unremarkable. He does have a 2.9 cm cyst on the right kidney unchanged from priorscans, which can be followed up outpatient. Active Problems (28) Abdominal abscess Abdominal pain Abnormal CT of the abdomen Anemia At risk for falls Barretts esophagus Bilateral lower extremity edema Colitis Colon cancer screening Colon polyps Cyclical vomiting Depression Diarrhea GERD (gastroesophageal reflux disease) Hiatal hernia HTN (hypertension) Hypercholesteremia Hypomagnesemia Insomnia Low vitamin B12 level IN (myocardial infarction) Nausea Nausea and vomiting Physical exam RULE OUT Clostridium difficile diarrhea Seizure Sleep apnea Status post laparoscopic Gabrieal fundoplication Father (): Heart attack..; Heart disease.. Mother (): Heart attack..; Heart disease.. Brother (): Leukemia Sister (): Heart attack..; Heart disease.. Drug Eluting Stent- Coronary Artery.: 05/01/18 Coronary Angiograms.: 05/01/18 Left Heart Catheterization, left ventriculogram.: 04/16/18 Percutaneous Coronary Angioplasty.: 04/16/18 Drug Eluting Stent- Coronary Artery.: 04/16/18 Laparoscopy, surgical, esophagogastric fundoplasty (eg, Gabriela, Toupet procedures).: 10/20/15 HERNIA: 10/20/15 esophagogastroduodenoscopy(EGD).: 08/17/15 COLONOSCOPY AND BIOPSY: 2014 cardiac stents EGD Wrist surgery Cholecystectomy;. History Tobacco:Former smoker Performed Date Time:01/12/2016 Substance abuse:Past Performed Date Time:06/09/2019 Home Medications (15) Active aspirin 81 mg oral tablet, chewable 81 mg = 1 tabs, ORAL, DAILY atorvastatin 40 mg oral tablet 40 mg = 1 tabs, ORAL, DAILY Brilinta (ticagrelor) 90 mg oral tablet 90 mg = 1 tabs, ORAL, BID citalopram 40 mg oral tablet 40 mg = 1 tabs, ORAL, DAILY lansoprazole 15 mg oral delayed release capsule 15 mg = 1 caps, ORAL, DAILY metoclopramide 10 mg oral tablet 10 mg = 1 tabs, PRN, ORAL, DAILY metoprolol succinate 25 mg oral tablet, extended release 25 mg = 1 tabs, ORAL, DAILY Mobic 15 mg oral tablet 15 mg = 1 tabs, ORAL, PRN nitroglycerin 0.4 mg sublingual tablet 0.4 mg = 1 tabs, PRN, Sublingual, Q5MIN Norvasc 10 mg oral tablet 10 mg = 1 tabs, ORAL, DAILY Refresh Redness Relief 1 drops, PRN, Both Eyes, DAILY sucralfate 1 g oral tablet 1 g = 1 tabs, ORAL, BID traZODone 50 mg oral tablet 75 mg = 1.5 tabs, ORAL, QHS TriCor 145 mg, ORAL, DAILY WITH BREAKFAST Zestril 20 mg oral tablet 20 mg = 1 tabs, ORAL, DAILY Allergies (5) Active Reaction erythromycin None Documented Macrobid eyes swell/ skin discoloration penicillins vomit Vancomycin Hydrochloride None Documented Zoloft None Documented Vital Signs (last 24 hrs) Last Charted Temp Oral 36.6 degC (NOV 27 08:34) Heart Rate Peripheral 86 bpm (NOV 27 08:36) Resp Rate 12 br/min (NOV 27 08:36) SBP H 157mmHg (NOV 27 08:34) DBP 90 mmHg (NOV 27 08:34) Weight 90.8 kg (NOV 27 08:39) Height 178 cm (NOV 27 08:39) BMI 28.66 (NOV 27 08:39) General: NAD, resting comfortably. HEENT: NCAT, supple. Respiratory: CTAB. No wheezes, rhonchi. Symmetrical chest wall expansion. Cardiovascular: RRR. Normal S1S2. No murmurs. No edema. Gastrointestinal: Soft, NT, ND. +BS. Musculoskeletal: Normal ROM. Normal strength. No swelling or deformity. Integumentary: Warm and dry. Neurologic: A&Ox3. No focal deficits. Cognition and Speech: Oriented, Speech clear and coherent. Psychiatric: Cooperative, Appropriate mood & affect, Normal judgment. Labs (Last four charted values) WBC H 17.8 (NOV 27) Hgb 14.5 (NOV 27) Hct 44.0 (NOV 27) Plt 449 (NOV 27) Na 140 (NOV 27) K L 3.4 (NOV 27) CO2 25.6 (NOV 27) Cl L 98 (NOV 27) Cr H 1.9 (NOV 27) BUN H 31 (NOV 27) Glucose Random H 171 (NOV 27) Mg 1.8 (NOV 27) Ca 10.1 (NOV 27) INR 1.1 (NOV 27) Troponin 0.095 (NOV 27) 0.070 (NOV 27) Medications (9) Active Scheduled: (8) AMLODIPINE 10MG TAB 10 mg 1 tabs, ORAL, DAILY ASPIRIN (more content not included)...[facility]02-19-2020 History of Past illness Narrative* Problem Noted Date Resolved Date Intractable nausea and vomiting 11/12/2019 11/13/2019 Last Assessment & Plan: Patient with hx of cannabis hyperemesis syndrome presenting with 24 hours of continuous nausea and vomiting in setting of recent marijuana use Reports history of recurrent ED visits and hospitalizations for similar, most recent ED visit one week ago with reported negative CT A/P (unable to view results in Epic) Abdominal pain now resolved after haldol and toradol in the ED although still with some dyspepsia and nausea Abdominal examination is rather benign without significant TTP, rebound or guarding at this time Likely secondary to cannabis use, urine tox screen + marijuana Given recurrent CT of the A/P, most recently being one week ago will hold off on further imaging for now Consider CT if any change in clinical condition, although overall appears to be improved Check hepatic panel and lipase Pain control and anti-emetics prn Lactated ringers Clear liquid diet for now, advance as tolerated PPI Follow daily CBC, BMP, Mag Lactic acidosis 11/12/2019 11/13/2019 Last Assessment & Plan: Lactate initially 4.5 with improvement to 2.1 after IVF hydration in the ED Suspect in setting of significant dehydration from cannabis hyperemesis syndrome, less concern for infectious etiology Given concomitant leukocytosis will get check blood cultures Monitor off antibiotics for now Follow daily CBC, BMP Hypomagnesemia 11/12/2019 11/13/2019 Last Assessment & Plan: Mag 1.0 on admission, IV mag sulfate given in the ED Repeat Mag now Replete as needed Acute kidney injury 11/12/2019 11/13/2019 Last Assessment & Plan: Likely pre-renal in setting of volume depletion Creatinine initially 1.5-->1.2 after IV hydration in ED Unclear recent baseline although appears to be around 0.7-0.9 based on labwork from 2017 Continue lactated ringers Follow daily renal function Avoid nephrotoxins ACEI and diuretic held until creatine further improved SIRS (systemic inflammatory response syndrome) 0 11/12/2019 11/13/2019 Last Assessment & Plan: Patient noted to have leukocytosis, lactic acidosis and tachycardia on admission Patient appears non toxic on examination, no urinary or URI symptoms Suspect likely in setting of severe dehydration and less suspicious for sepsis or infectious etiology Check blood cultures Remainder of plan as above Monitor off antibiotics for now, especially given history of C diff colitis Leucocytosis 09/12/2013 11/13/2019 Last Assessment & Plan: Suspect likely reactive vs secondary to dehydration Has had leukocytosis with similar presentation in past Less suspicious for infectious etiology Repeat CBC in am after IV hydration documented as of this encounter (statuses as of 01/01/2023) [facility] No data available for this section [facility] Evaluation noteNo assessment information available [facility] Work Phone: Evaluation note* Diagnosis Nausea and vomiting, unspecified vomiting type- Primary documented in this encounter [facility] Diagnosis Onset Date Resolution Status Hearing loss acute Mild cognitive impairment ac mello Seizure resolved [facility] Work Phone: Evaluation note* Diagnosis Onset Date Resolution Status Hearing loss acute Mild cognitive impairment ac mello Seizure resolved B12 nutritional deficiency a cute [facility] Work Phone: Hospital Discharge instructions Additional Instructions Please follow-up with Dr. Mcwilliams, urologist, secondary to the renal cyst noted on your CAT scan.[facility] Work Phone: Hospital Discharge instructions Additional Instructions Please follow-up with your primary care doctor as well as your GI doctor. Take your antacid medications as prescribed. Avoid eating large meals.[facility] Work Phone: Hospital Discharge instructions No data available for this section [facility] Hospital Discharge instructions* Activity:activity as tolerated. May shower. May return to school/work Instructions:. May drive. * Call Provider If:Breathing faster than normal. Breathing harder than normal or having retractions. Fever of 100.4 F (38 C) or higher. Chills. Acting very sleepy and difficult to awaken. Vomiting (throwing up) and not able to eat or drink for 12 hours. * Patient Instructions:- Return to emergency room for severe chest pain or shortness of breath. * Follow-Up 2:Physician/Dept/Service: Thoracic surgery Dr. Espinosa to Schedule in: 2 weeksPhone Number: [phone] [facility] Additional Instructions Thank you for trusting us with your care today! Please take Tylenol (2 pills, 650 mg), ibuprofen (2 pills, 400 mg) every 6 hours as needed for pain and fever control. Please take Zofran as needed. Please return to the emergency department if your symptoms change or worsen. Please follow with your primary care physician for further outpatient evaluation and management.[facility] Work Phone: Summary Purpose Family History Relationship Condition Age at Onset Recorded Date/T andi mother Cardiac disease Unknown father Cardiac disease Unknown Advance Directives Advance Directive Response Recorded Date/ Time Name of Medical Power of Grease Rack Worker JOAN ROSARIO- November 11, 2022 3:47pm Living Will No November 17 4:29pm Power of Grease Rack Worker No November 17, 2022 4:29pm Advance Directive Response Recorded Date/ Time Name of Medical Power of Grease Rack Worker JOAN ROSARIO- November 11, 2022 4:47pm Name of Medical Power of Grease Rack Worker Lobo Rosario December 06, 2022 10:14am Living Will Yes December 06, 2022 10:14am Power of Grease Rack Worker Yes December 06 10:14am Advance Directive Response Recorded Date/ Time Name of Medical Power of Grease Rack Worker JOAN ROSARIO- November 11, 2022 4:47pm Name of Medical Power of Grease Rack Worker Lobo Rosario December 06, 2022 10:14am Living Will No December 27, 2022 7:59pm Power of Grease Rack Worker No December 27 7:59pm Advance Directive Response Recorded Date/ Time Name of Medical Power of Grease Rack Worker JOAN ROSARIO- November 11, 2022 4:47pm Name of Medical Power of Grease Rack Worker Lobo Rosario December 06, 2022 10:14am Living Will No January 01, 2023 1:25pm Power of Grease Rack Worker No January 01 1:25pm Advance Directive Response Recorded Date/ Time Name of Medical Power of Grease Rack Worker JOAN ROSARIO- November 11, 2022 4:47pm Name of Medical Power of Grease Rack Worker Lobo Rosario December 06, 2022 10:14am Living Will No March 08, 2023 12:27pm Power of Grease Rack Worker No March 08 12:27pm Advance Directive Response Recorded Date/ Time Living Will No September 06, 2 023 12:30pm Power of Grease Rack Worker No September 06, 2023 12:30pm Advance Directive Response Recorded Date/ Time Living Will No December 18, 2023 11:30am Power of Grease Rack Worker No December 17 11:30am Advance Directive Response Recorded Date/ Time Living Will No January 16, 2024 10:59am Power of Grease Rack Worker No January 15 10:59am Advance Directive Response Recorded Date/ Time Living Will Yes January 26, 2024 1: 11pm Power of Grease Rack Worker No January 26, 2024 1:11pm Advance Directive Response Recorded Date/ Time Living Will No September 06, 2 023 1:30pm Power of Grease Rack Worker No September 06, 2023 1:30pm Living Will No July 10 1:58pm Power of Grease Rack Worker No July 10, 2024 1:58pm Living Will No November 11, 2 025 12:22am Power of Grease Rack Worker No November 11, 2024 12:22am Living Will No September 02, 2 024 11:46pm Power of Grease Rack Worker No September 02, 2024 11:46pm Living Will No October 03 3:52pm Power of Grease Rack Worker No October 03, 2024 3:52pm Living Will No October 16 1:58pm Power of Grease Rack Worker No October 16, 2024 1:58pm Living Will Yes October 17 6:51am Power of Grease Rack Worker No October 17, 2024 6:51am Living Will Yes October 23 12:19pm Power of Grease Rack Worker Yes October 23, 2024 12:19pm Name of Medical Power of Grease Rack Worker lobo October 23, 2024 12:19pm Living Will No December 04, 2024 8:54pm Power of Grease Rack Worker No December 04 8:54pm Hospital Course Note HNO ID: [id number] Author: Fermin Benitez Service: Hospital Medicine Author Type: Physician Type: Discharge Summary Filed: 11/13/2019 2:48 PM Note Text: DISCHARGE SUMMARY PATIENT NAME: Truong Rosario III Code Status: Not on file Highest Readmission Risk Score: 8 The 30 day readmissions risk score is derived from an internally validated risk model which evaluates patient level characteristics, utilization history, medication orders and lab results up until the day of discharge. Patients with a score of 40 or above are considered highest risk for readmission. Specific patient level drivers will be listed at the bottom of the summary. Admission Information Admission Information ADMIT DATE: 11/12/2019 DISCHARGE DATE: 11/13/2019 MY DOCTORS AND MEDICAL TEAM: My Main Hospital Doctor: Wesley Benitez Primary Care Provider: Prerna Lemus DO My Medical Team Members: Treatment Team: Attending Provider: Wesley Benitez MY CONDITION AT DISCHARGE: Stable REASON I WAS IN THE HOSPITAL: N (more content not included)... Chief Complaint and Reason for Visit Chief Complaint VOMITING NAUSEA, VOMITING Chief Complaint VOMITING NAUSEA, VOMITING VOMITING Chief Complaint VOMITING NAUSEA, VOMITING VOMITING abd pain, nausea/vomitting Chief Complaint VOMITING NAUSEA, VOMITING VOMITING abd pain, nausea/vomitting N/V Chief Complaint VOMITING NAUSEA, VOMITING VOMITING abd pain, nausea/vomitting N/V nausea vomiting Chief Complaint MEMORY ISSUES VOMITIN SEIZURES Reason for Visit Hearing loss Mild cognitive impairment Seizure Chief Complaint MEMORY ISSUES VOMITIN SEIZURES Other specified postprocedural states Reason for Visit Hearing loss Mild cognitive impairment Seizure Chief Complaint VOMITIN SEIZURES Other specified postprocedural states 4 M FU EORDER - COPY PCP Reason for Visit Hearing loss Mild cognitive impairment Seizure Chief Complaint VOMITIN SEIZURES Other specified postprocedural states 4 M FU EORDER - COPY PCP EORDER B12 Reason for Visit Hearing loss Mild cognitive impairment Seizure B12 nutritional deficiency Chief Complaint SEIZURES Other specified postprocedural states 4 M FU EORDER - COPY PCP EORDER B12 N/V Reason for Visit Hearing loss Mild cognitive impairment Seizure B12 nutritional deficiency Chief Complaint SEIZURES Other specified postprocedural states 4 M FU EORDER - COPY PCP EORDER B12 N/V RIGHT FLANK PAIN Reason for Visit Hearing loss Mild cognitive impairment Seizure B12 nutritional deficiency Chief Complaint vomiting MEMORY ISSUES VOMITIN Reason for Visit Hearing loss Mild cognitive impairment Seizure Chief Complaint Admit Date B12 inject August 14, 2024 1:21pm INTRACTABLE N/V, LACTIC ACIDOSIS/LEUKOCY TOSIS September 02, 2024 9:11pm INTRACTABLE N/V, LACTIC ACIDOSIS/LEUKOCY TOSIS September 03, 2024 2:56pm B12 inject September 22, 2024 1:22pm chest pain October 03, 2024 2 :45pm abdominal pain October 16, 2024 1 2:52pm n/v vomitting blood October 17, 2024 5 :21am N/V, POSSIBLE GI BLEED October 17 5:23am N/V, POSSIBLE GI BLEED October 18 7:45am 10 mo fu October 20, 2024 1 :14pm EORDER October 20, 2024 1 :41pm N/V October 23, 2024 1 0:14am N/V/D November 10, 2024 8:55pm INTRACTABLE NAUSEA AND VOMITING W/ ABD P AIN November 10, 2024 9:05pm INTRACTABLE NAUSEA AND VOMITING W/ ABD P AIN November 11, 2024 9:56am INTRACTABLE NAUSEA AND VOMITING W/ ABD P AIN November 12, 2024 11:18am INTRACTABLE NAUSEA AND VOMITING W/ ABD P AIN November 12, 2024 4:26pm PREOP November 13, 2024 5:28am INTRACTABLE NAUSEA AND VOMITING W/ ABD P AIN November 13, 2024 11:15am INTRACTABLE NAUSEA AND VOMITING W/ ABD P AIN November 13, 2024 2:46pm N/V December 04, 2024 6:3 6pm Reason for Visit Admit Date B12 nutritional deficiency July 1:21pm Fatigue August 14, 2024 1:21pm Leukocytosis September 02, 2024 9:11pm Abdominal pain September 02, 2024 9:11pm Acidosis, lactic September 02, 2024 9:11pm Intractable cyclical vomiting with nause a September 02, 2024 9:11pm B12 nutritional deficiency August 1:22pm Fatigue September 22, 2024 1:22pm Abdominal pain October 17, 2024 5 :23am Hematemesis October 17, 2024 5 :23am Upper gastrointestinal bleeding October 17, 2024 5:23am Cyclic vomiting syndrome October 17, 025 5:23am Anemia October 20, 2024 1 :14pm B12 nutritional deficiency October 20, 2024 1:14pm Mild cognitive impairment October 20, 2024 1:14pm Abdominal pain November 10, 2024 9:05pm Acidosis, lactic November 10, 2024 9:05pm Acute lactic acidosis November 10 9:05pm STANLEY (acute kidney injury) November 10, 2024 9:05pm Acute dehydration November 10, 2024 9:05pm Acute generalized abdominal pain [email or web address] 9:05pm Cyclic vomiting syndrome November 10, 2024 9:05pm Shanna-Jaime tear November 10, 2024 9:05pm Marijuana abuse November 10, 2024 9:05pm Additional Source Comments (unrecognized sect ion and content) No Status Records FoundNo Status Records FoundNo Status Records FoundNo Status Records FoundNo Status Records FoundNo Status Records FoundNo Status Records FoundNo Status Records FoundNo Status Records FoundNo Status Records FoundNo Status Records Found INFORMATION SOURCE (unrecogn ized section and content) DATE CREATED AUTHOR 03/14/2018 Yoav Daigle [facility] DATE CREATED AUTHOR AUTHOR'S ORGANIZ ATION 04/23/2018 [facility] DATE CREATED AUTHOR AUTHOR'S ORGANIZ ATION 10/13/2018 [facility] DATE CREATED AUTHOR AUTHOR'S ORGANIZ ATION 12/13/2018 [facility] DATE CREATED AUTHOR AUTHOR'S ORGANIZ ATION 10/16/2020 [facility] DATE CREATED AUTHOR AUTHOR'S ORGANIZ ATION 11/26/2021 [facility] DATE CREATED AUTHOR AUTHOR'S ORGANIZ ATION 01/05/2023 [facility] DATE CREATED AUTHOR AUTHOR'S ORGANIZ ATION 2023 [facility] [place] DATE CREATED AUTHOR AUTHOR'S ORGANIZ ATION 07/21/2023 [facility] ([place]) DATE CREATED AUTHOR AUTHOR'S ORGANIZ ATION 11/09/2023 [facility] DATE CREATED AUTHOR AUTHOR'S ORGANIZ ATION 12/16/2024 [facility] Care Team (unrecognized sect ion and content) Care Team Personnel Name: PHYSICIAN, NOT RECORDED Member Role: Primary Care Physician Care Team Personnel Name: PHYSICIAN, NOT RECORDED Member Role: Primary Care Physician Care Team Personnel Name: PHYSICIAN, NOT RECORDED Member Role: Primary Care Physician Care Teams (unrecognized sec tion and content) Team Status: Active Member Role Status Dates No Primary Care Physician Primary Care Provider Active Team Status: Inactive Member Role Status Dates Dr. Germania Maldonado DO Emergency Provider Active Mariah Shook Primary Care Provider Active Team Status: Inactive Member Role Status Dates No Primary Care Physician Primary Care Provider Active Dr. Pieter Yoon DO Emergency Provider Active Team Status: Inactive Member Role Status Dates Dr. Germania Maldonado DO Attending Provider, Emergency P rovider Active Mariah Shook Primary Care Provider Active Team Status: Inactive Member Role Status Dates No Primary Care Physician Primary Care Provider Active Dr. Pieter Yoon DO Attending Provider, Emergency P rovider Active Team Status: Inactive Member Role Status Dates No Primary Care Physician Primary Care Provider Active Dr. Patience Lane MD Emergency Provider Active Team Status: Inactive Member Role Status Dates No Primary Care Physician Primary Care Provider Active Dr. Patience Lane MD Attending Provider, Emergency Provider Active Team Status: Inactive Member Role Status Dates No Primary Care Physician Primary Care Provider Active Dr. Germania Maldonado DO Emergency Provider Active Team Status: Active Member Role Status Dates MARIAH GRAFF Primary Care Provider Active Team Status: Inactive Member Role Status Dates Dr. Catherine Ramos DO Emergency Provider Active PRERNA LEMUS Primary Care Provider Active Team Lead Relationship Specialty Start Date End Date Prerna Lemus DO [address] [place] [address] PCP - General Family Medicine 12/27/17 Team Status: Inactive Member Role Status Dates No Primary Care Physician Primary Care Provider Active Dr. Germania Maldonado DO Attending Provider, Emergency P rovider Active Team Status: Inactive Member Role Status Dates Dr. Catherine Ramos DO Attending Provider, Emergency Provider Active PRERNA LEMUS Primary Care Provider Active Team Status: Inactive Member Role Status Dates PRERNA LEMUS Primary Care Provider Active Dr. Dewey Kam MD Emergency Provider Active Team Status: Inactive Member Role Status Dates Dr. Fredi Angeles MD Attending Provider Active No Primary Care Physician Primary Care Provider, Refer ring Provider Active Team Status: Inactive Member Role Status Dates Dr. Fredi Angeles MD Attending Provider, Referring Provider Active No Primary Care Physician Primary Care Provider Active Team Status: Inactive Member Role Status Dates Dr. Trenton Ruiz DO Attending Provider, Emergency Pro vider Active No Primary Care Physician Primary Care Provider Active Team Status: Active Member Role Status Dates PRERNA ROBUSTRandall Primary Care Provider Active Team Status: Inactive Member Role Status Dates Dr. Fredi Angeles MD Attending Provider, Referring Provider Active PRERNA ROBUSTRandall Primary Care Provider Active Team Status: Inactive Member Role Status Dates Dr. Fredi Angeles MD Attending Provider Active PRERNAMARIAH MENDOZA Primary Care Provider, Referring Provi denisha Active Team Status: Inactive Member Role Status Dates MARIAH GRAFF Primary Care Provider Active Dr. Fredi Angeles MD Attending Provider, Referring Provider Active Team Status: Inactive Member Role Status Dates Dr. Patience Lane MD Emergency Provider Active No Primary Care Physician Primary Care Provider Active Team Status: Inactive Member Role Status Dates Dr. Patience Lane MD Attending Provider, Emergency Provider Active No Primary Care Physician Primary Care Provider Active Team Status: Inactive Member Role Status Dates Dr. Trenton Ruiz DO Emergency Provider Active No Primary Care Physician Primary Care Provider Active Team Status: Inactive Member Role Status Dates No Primary Care Physician Primary Care Provider Active Dr. Malcom Cordova DO Attending Provider, Emergency P jimbo Active Team Status: Active Member Role Status Dates Dr. Prerna Lemus DO Primary Care Provider Active Team Status: Inactive Member Role Status Dates Dr. Prerna Lemus DO Primary Care Provider Active Start: August 14, 2024 End: August 14, 2024 Dr. Fredi Angeles MD Attending Provider Active Start: August 14, 2024 End: August 14, 2024 Dr. Fredi Angeles MD Referring Provider Active Start: August 14, 2024 End: August 14, 2024 Team Status: Inactive Member Role Status Dates Dr. Prerna Lemus DO Primary Care Provider Active Start: September 02, 2024 End: September 03, 2024 Dr. Trenton Ruiz DO Emergency Provider Active S tart: September 02, 2024 End: September 03, 2024 Dr. Iris Orozco MD Admit Provider Active St art: September 02, 2024 End: September 03, 2024 Dr. Iris Orozco MD Other Provider Active St art: September 02, 2024 End: September 03, 2024 Dr. Mirta Meza DO Attending Provider Active S tart: September 02, 2024 End: September 03, 2024 Team Status: Active Member Role Status Dates Dr. Prerna Lemus DO Primary Care Provider Active Start: September 03, 2024 Dr. Trenton Ruiz DO Emergency Provider Active S tart: September 03, 2024 Dr. Iris Orozco MD Admit Provider Active St art: September 03, 2024 Dr. Iris Orozco MD Other Provider Active St art: September 03, 2024 Dr. Mirta Meza DO Attending Provider Active S tart: September 03, 2024 Dr. Mirta Meza DO Other Provider Active Start : September 03, 2024 Team Status: Inactive Member Role Status Dates Dr. Prerna Lemus DO Primary Care Provider Active Start: September 22, 2024 End: September 22, 2024 Dr. Fredi Angeles MD Attending Provider Active Start: September 22, 2024 End: September 22, 2024 Dr. Fredi Angeles MD Referring Provider Active Start: September 22, 2024 End: September 22, 2024 Team Status: Inactive Member Role Status Dates Dr. Prerna Lemus DO Primary Care Provider Active Start: October 03, 2024 End: October 03, 2024 Dada Chung MD Attending Provider Active Star t: October 03, 2024 End: October 03, 2024 Dada Chung MD Emergency Provider Active Star t: October 03, 2024 End: October 03, 2024 Team Status: Inactive Member Role Status Dates Dr. Prerna Lemus DO Primary Care Provider Active Start: October 16, 2024 End: October 16, 2024 Dr. Truong Cooper DO Attending Provider Active Start: October 16, 2024 End: October 16, 2024 Dr. Truong Cooper DO Referring Provider Active Start: October 16, 2024 End: October 16, 2024 Dr. Truong Cooper DO Emergency Provider Active Start: October 16, 2024 End: October 16, 2024 Team Status: Active Member Role Status Dates Dr. Prerna Lemus DO Primary Care Provider Active Start: October 17, 2024 Dr. Tarun Jim DO Emergency Provider Active Start: October 17, 2024 Dr. Iris Orozco MD Attending Provider Active Start: October 17, 2024 Team Status: Inactive Member Role Status Dates Dr. Prerna Lemus DO Primary Care Provider Active Start: October 17, 2024 End: October 18, 2024 Dr. Tarun Jim DO Emergency Provider Active Start: October 17, 2024 End: October 18, 2024 Dr. Iris Orozco MD Admit Provider Active St art: October 17, 2024 End: October 18, 2024 Dr. Iris Orozco MD Other Provider Active St art: October 17, 2024 End: October 18, 2024 Dr. Mer Frias MD Attending Provider Active Start: October 17, 2024 End: October 18, 2024 Team Status: Active Member Role Status Dates Dr. Prerna Lemus DO Primary Care Provider Active Start: October 18, 2024 Dr. Tarun Jim DO Emergency Provider Active Start: October 18, 2024 Dr. Iris Orozco MD Admit Provider Active St art: October 18, 2024 Dr. Iris Orozco MD Other Provider Active St art: October 18, 2024 Dr. Mer Frias MD Attending Provider Active Start: October 18, 2024 Dr. Mer Frias MD Other Provider Active Star t: October 18, 2024 Team Status: Inactive Member Role Status Dates Dr. Fredi Angeles MD Attending Provider Active Start: October 20, 2024 End: October 20, 2024 Dr. Prerna Lemus DO Primary Care Provider Active Start: October 20, 2024 End: October 20, 2024 Dr. Prerna Lemus DO Referring Provider Active Start: October 20, 2024 End: October 20, 2024 Team Status: Inactive Member Role Status Dates Dr. Prerna Lemus DO Primary Care Provider Active Start: October 20, 2024 End: October 20, 2024 Dr. Fredi Angeles MD Attending Provider Active Start: October 20, 2024 End: October 20, 2024 Dr. Fredi Angeles MD Referring Provider Active Start: October 20, 2024 End: October 20, 2024 Team Status: Inactive Member Role Status Dates Dr. Prerna Lemus DO Primary Care Provider Active Start: October 23, 2024 End: October 23, 2024 Dr. Henry Ortiz MD Attending Provider Active Start: October 23, 2024 End: October 23, 2024 Dr. Henry Ortiz MD Emergency Provider Active Start: October 23, 2024 End: October 23, 2024 Team Status: Active Member Role Status Dates Dr. Prerna Lemus DO Primary Care Provider Active Start: November 10, 2024 Dr. Dewey Kam MD Emergency Provider Active Sta rt: November 10, 2024 Dr. Trey Lowe MD Attending Provider Active Start: November 10, 2024 Team Status: Inactive Member Role Status Dates Dr. Prerna Lemus DO Primary Care Provider Active Start: November 10, 2024 End: November 13, 2024 Dr. Dewey Kam MD Referring Provider Active Sta rt: November 10, 2024 End: November 13, 2024 Dr. Dewey Kam MD Emergency Provider Active Sta rt: November 10, 2024 End: November 13, 2024 Dr. Trey Lowe MD Admit Provider Active Star t: November 10, 2024 End: November 13, 2024 Dr. Trey Lowe MD Other Provider Active Star t: November 10, 2024 End: November 13, 2024 Dr. Aracelis Roberson MD Attending Provider Active Start: November 10, 2024 End: November 13, 2024 Dr. Talib Diaz MD Other Provider Active Start: November 10, 2024 End: November 13, 2024 Team Status: Active Member Role Status Dates Dr. Prerna Lemus DO Primary Care Provider Active Start: November 11, 2024 Dr. Dewey Kam MD Referring Provider Active Sta rt: November 11, 2024 Dr. Dewey Kam MD Emergency Provider Active Sta rt: November 11, 2024 Dr. Trey Lowe MD Admit Provider Active Star t: November 11, 2024 Dr. Trey Lowe MD Other Provider Active Star t: November 11, 2024 Dr. Talib Diaz MD Attending Provider Active Start: November 11, 2024 Dr. Talib Diaz MD Other Provider Active Start: November 11, 2024 Team Status: Active Member Role Status Dates Dr. Prerna Lemus DO Primary Care Provider Active Start: November 12, 2024 Dr. Dewey Kam MD Referring Provider Active Sta rt: November 12, 2024 Dr. Dewey Kam MD Emergency Provider Active Sta rt: November 12, 2024 Dr. Trey Lowe MD Admit Provider Active Star t: November 12, 2024 Dr. Trey Lowe MD Other Provider Active Star t: November 12, 2024 Dr. Aracelis Roberson MD Other Provider Active St art: November 12, 2024 Dr. Talib Diaz MD Other Provider Active Start: November 12, 2024 Dr. Aiden Baptiste DO Attending Provider Active Start: November 12, 2024 Team Status: Active Member Role Status Dates Dr. Prerna Lemus DO Primary Care Provider Active Start: November 12, 2024 Dr. Dewey Kam MD Emergency Provider Active Sta rt: November 12, 2024 Dr. Trey Lowe MD Admit Provider Active Star t: November 12, 2024 Dr. Trey Lowe MD Other Provider Active Star t: November 12, 2024 Dr. Aracelis Roberson MD Attending Provider Active Start: November 12, 2024 Dr. Aracelis Roberson MD Other Provider Active St art: November 12, 2024 Dr. Talib Diaz MD Other Provider Active Start: November 12, 2024 Team Status: Active Member Role Status Dates Dr. Prerna Lemus DO Primary Care Provider Active Start: November 13, 2024 End: November 13, 2024 Dr. Lori Xavier MD Attending Provider Active Start: November 13, 2024 End: November 13, 2024 Dr. Eligio Vasques MD Referring Provider Active Start: November 13, 2024 End: November 13, 2024 Team Status: Active Member Role Status Dates Dr. Prerna Lemus DO Primary Care Provider Active Start: November 13, 2024 Dr. Dewey Kam MD Referring Provider Active Sta rt: November 13, 2024 Dr. Dewey Kam MD Emergency Provider Active Sta rt: November 13, 2024 Dr. Trey Lowe MD Admit Provider Active Star t: November 13, 2024 Dr. Trey Lowe MD Other Provider Active Star t: November 13, 2024 Dr. Aracelis Roberson MD Other Provider Active St art: November 13, 2024 Dr. Talib Diaz MD Other Provider Active Start: November 13, 2024 Dr. Aiden Baptiste DO Attending Provider Active Start: November 13, 2024 Team Status: Active Member Role Status Dates Dr. Prerna Lemus DO Primary Care Provider Active Start: November 13, 2024 Dr. Dewey Kam MD Emergency Provider Active Sta rt: November 13, 2024 Dr. Trey Lowe MD Admit Provider Active Star t: November 13, 2024 Dr. Trey Lowe MD Other Provider Active Star t: November 13, 2024 Dr. Aracelis Roberson MD Attending Provider Active Start: November 13, 2024 Dr. Aracelis Roberson MD Other Provider Active St art: November 13, 2024 Dr. Talib Diaz MD Other Provider Active Start: November 13, 2024 Team Status: Inactive Member Role Status Dates Dr. Prerna Lemus DO Primary Care Provider Active Start: December 04, 2024 End: December 05, 2024 Dr. Romero Harrington DO Referring Provider Active Start : December 04, 2024 End: December 05, 2024 Dr. Romero Harrington DO Emergency Provider Active Start : December 04, 2024 End: December 05, 2024 Goals (unrecognized section and content) Goals may be documented in a n alternate section Source Comments (unrecognize d section and content) In the event this informatio n is protected by the Federal Confidentiality of Alcohol and Drug Abuse Patient Records regulations: The Federal rules restrict any use of the information to criminally investigate or prosecute any alcohol or drug abuse patient.[facility] <item> Privacy Markings (unrecogniz ed section and content) Section Author: Judy Machado PROHIBITION ON REDISCLOSURE OF CONFIDENTIAL INFORMATION This notice accompanies a disclosure of information concerning a client made to you with the consent of such client. FOR RECORDS PERTAINING TO PATIENTS WHO ARE OR HAVE BEEN ENROLLED IN A CHEMICAL DEPENDENCY/SUBSTANCEABUSE PROGRAM, SOME INFORMATION MAY BE OMITTED. This clinical summary was aggregated from multiple sources. Caution should be exercised in using it in the provision of clinical care. This summary normalizes information from multiple sources, and as a consequence, information in this document may materially change the coding, format and clinical context of patient data. In addition, data may be omitted in some cases. CLINICAL DECISIONS SHOULD BE BASED ON THE PRIMARY CLINICAL RECORDS. [facility] [employer] [facility]. provides no warranty or guarantee of the accuracy or completeness of information in this document.
[2025-04-05 13:29] LABS: Hematocrit 34.7 % (40-54); Hemoglobin 11.2 g/dL (13.0-16.5); Immature Granulocytes Count 0.160 X10^3/uL (0.0-0.0); Mean Corp Hgb Conc 32.3 g/dL (32-36); Mean Corpuscular Volume 74.5 fL (80-94); Mean Platelet Vol. 10.0 fl (6.2-12.0); NRBC Flagged by Analyzer 0 % (0-5); Platelet Count 414 K/mm3 (150-450); RBC Distribution Width CV 19.5 % (11.6-14.6); RBC Distribution Width SD 50.3 fl (35.1-43.9); Red Blood Count 4.66 M/mm3 (4.6-6.2); White Blood Count 18.9 K/mm3 (4.4-11.0)
[2025-04-05] MEDS: 0.9% Normal Saline (1000mL) 1,000 ML 999 ML IV (13:40)
[2025-04-05] MEDS: Lorazepam 2 MG/ML WCH Syringe 0.5 MG IV (13:41)
[2025-04-05] MEDS: Famotidine 200 MG/20 ML MDV 20 MG in 0.9% Normal Saline (Pres. free 8 ML 300 MG IV (13:42)
[2025-04-05 14:11] LABS: AST(SGOT) 28 U/L (<=37); Alanine Aminotransfer ALT/SGPT 11 U/L (<=46); Albumin, Serum 4.6 g/dL (3.4-4.8); Alkaline Phosphatase 57 U/L (40-129); Anion Gap 18 (5-15); BUN 13 mg/dL (4-19); BUN/Creat Ratio 11.9 RATIO (10-20); Calcium,Total 9.9 mg/dL (7.6-11.0); Carbon Dioxide 16.4 mmol/L (21.0-32.0); Chloride 106 mmol/L (98-108); Estimated Creatinine Clearance 70.78 ml/min (50-250); Globulin 3.3 g/dL (2.2-4.2); Glucose 106 mg/dL (70-99); Lipase 53 U/L (13-75); Potassium 3.9 mmol/L (3.3-5.1)
[2025-04-05 14:28] VITALS: BP 192/113; PULSE 77; O2SAT 97
[2025-04-05] MEDS: DiphenhydrAMINE 50 MG/ML Syringe 25 MG IV (15:32)
[2025-04-05 15:43] LABS: Mucous, Urine 0 SEEN /hpf (<or=2+); Squamous Epithelial Cells - UA 0 SEEN /hpf (0-5)
[2025-04-05 15:48] LABS: Color, Urine Yellow (Yellow); Glucose, Dipstick Normal (Normal); Ketone-Dipstick Negative (Negative); Leukocyte Esterase-Dipstick Negative /ul (Negative); Nitrite-Dipstick Negative (Negative); Occult Blood-Urine 25 /ul (Negative); Protein-Dipstick 15 mg/dl (Negative); Specific Gravity, Urine 1.010 (1.002-1.030); Urine Bilirubin Dipstick Negative (Negative)
[2025-04-05] MEDS: Capsaicin 0.025% 1 APPLIC Tube TOPICAL (15:57)
[2025-04-05 16:00] VITALS: PULSE 77; RESP 20
[2025-04-05 16:17] LABS: Red Blood Cells-Urine 0-5 SEEN /hpf (0-5)
[2025-04-05 16:39] VITALS: BP 192/113; PULSE 77; RESP 20; TEMP 36.6; O2SAT 97
== END 2025-04-05 16:39 | disposition home or self-care (01) ==
PROVIDERS: Emergency Provider Emergency Medicine; PCP Family Medicine; Visit Provider Emergency Medicine
DX: R11.15 Cyclical vomiting syndrome unrelated to migraine (principal); D72.829 Elevated white blood cell count, unspecified; F12.10 Cannabis abuse, uncomplicated; F17.210 Nicotine dependence, cigarettes, uncomplicated; F17.290 Nicotine dependence, other tobacco product, uncomplicated; I10 Essential (primary) hypertension; I25.2 Old myocardial infarction; E78.5 Hyperlipidemia, unspecified; Z79.82 Long term (current) use of aspirin; Z79.899 Other long term (current) drug therapy
CPT/HCPCS: 74177; 80053; 81001; 83690; 85025; 96365; 96375; 99283; Q9967; A4216; J2405

== ENCOUNTER 2025-04-09 15:09 | Inpatient (IN) | payer MEDICARE, SELFPAY ==
[2025-04-09] VITALS (21 sets, daily range): BP systolic 139–174; BP diastolic 87–148; PULSE 88–144; RESP 5–24; TEMP 36.6–37.1; O2SAT 96–100; BMI 22.6; BMI 22.7
--- NOTE | 2025-04-09 15:54 | RAD_ITS ---
PROCEDURE: CHEST PA AND LATERAL 04/09/2025 REASON FOR EXAM: GENERAL MALASE TECHNIQUE: CHEST PA AND LATERAL COMPARISON: Chest radiograph 10/23/2019 FINDINGS: Hardware: None Heart: The heart size is normal. Mediastinum: The mediastinal contour is unremarkable. Aortic atherosclerosis. Lungs: No focal consolidation or pleural effusion. Bones: Degenerative changes are identified within the thoracic spine. Surgical clips in the right upper quadrant of the abdomen. RAD/Chest PA and Lateral IMPRESSION: No acute cardiopulmonary abnormality. Reading Location: [id number]
--- NOTE | 2025-04-09 15:55 | CT_ITS ---
PROCEDURE: ABDOMEN/PELVIS W IV CONT ONLY 04/09/2025 REASON FOR EXAM: ALL ABDOMINAL PAIN TECHNIQUE: ABDOMEN/PELVIS W IV CONT ONLY Coronal and Sagittal reconstruction series were provided. CONTRAST: Isovue 370 VOLUME: 100 mL One or more dose reduction techniques were used (e.g., Automated exposure control, adjustment of the mA and/or kV according to patient size, use of iterative reconstruction technique. RADIATION DOSE SUMMARY: CTDlvol: 14.6 mGy DLP: 785 mGycm COMPARISON: CT abdomen and pelvis 04/05/2025 FINDINGS: Lower chest: Hiatal hernia. Multivessel coronary calcification. Lung bases are clear. Liver: Hypodense. No discrete lesion. Gallbladder: Surgically absent. Spleen: Punctate calcifications suggestive of prior granulomatous disease Pancreas: Normal size without evidence of mass surrounding inflammation or ductal dilation. Adrenals: Thickening of both adrenal glands, unchanged. There is a hypodense lesion in the right adrenal gland measuring 1.0 cm, unchanged and likely a small adenoma. Kidneys: Multiple bilateral simple cysts. Hyperdense cyst at the interpolar region of the right kidney, unchanged. Additional subcentimeter hypodensities are too small to characterize. A lesion at the interpolar region of the left kidney measuring 1.3 cm and 35 Hounsfield units (series 5, image 35) remains unchanged, and measured simple fluid density on prior exams suggesting density is artifactually increased on today's exam. Bladder: Mild circumferential wall thickening Reproductive Organs: Unremarkable Bowel: No obstruction or inflammation. Normal appendix. Lymph nodes: No suspicious lymph node enlargement. Vasculature: Moderate diffuse atherosclerotic calcifications are noted. Slight fusiform ectasia of the infrarenal abdominal aorta measuring 1.8 cm, unchanged. Bones: Degenerative changes of the spine. Soft tissues: Unremarkable CT/Abdomen/Pelvis W IV Cont ONLY IMPRESSION: 1. Mild circumferential bladder wall thickening, unchanged and which may again represent cystitis. Otherwise no acute intra-abdominal abnormality. 2. Chronic unchanged findings as detailed above, to include hiatal hernia, hep atic steatosis, and numerous renal cysts. Reading Location: [id number]
--- NOTE | 2025-04-09 15:58 | CT_ITS ---
PROCEDURE: BRAIN/HEAD WITHOUT CONTRAST 04/09/2025 REASON FOR EXAM: HEADACHE TECHNIQUE: BRAIN/HEAD WITHOUT CONTRAST Coronal and Sagittal reconstruction series were provided. One or more dose reduction techniques were used (e.g., Automated exposure control, adjustment of the mA and/or kV according to patient size, use of iterative reconstruction technique. RADIATION DOSE SUMMARY: DLP: 650 mGycm COMPARISON: None FINDINGS: There is no acute infarct, intracranial hemorrhage, or mass effect. There is no hydrocephalus or significant midline shift. No acute, depressed calvarial fractures. No large scalp hematomas. CT/Brain/Head without Contrast IMPRESSION: No acute intracranial process. Reading Location: [id number]
--- NOTE | 2025-04-09 16:07 | EX.ED.DYSGE1 ---
HPI History of Present Illness Chief Complaint: Headache Narrative Narrative: Chief complaint and HPI: Headache, nausea and vomiting. 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 Associated symptom is body aches. Patient states that he smokes marijuana. States he has not used in several days. States yesterday he developed nausea and vomiting. Today developed headache and bodyaches. Triage note states that patient is having difficulty following commands however this is not true on my exam. He is very anxious in the room and moving constantly. He states it secondary to not feeling well. He denies illicit drug use other than marijuana. He denies any fever, chills, cough, chest pain, diarrhea, constipation, dysuria. Does endorse some abdominal pain. Denies any trauma or injury to the head. Review of systems: See HPI Medications: As listed on the chart Allergies: As listed on the chart PFSH: Per chart Vital signs: As listed on the chart. Reviewed. Physical exam: Gen: A&O x3, anxious, moving around constantly in the bed Head: Normocephalic, atraumatic Eyes: No sclera icterus, conjunctiva clear, PERRL ENT: Dry mucous membranes Neck: Trachea midline, No JVD CV: Tachycardic, regular rhythm, no murmurs, no peripheral edema Resp: Lungs CTA BL, no w/r/c GI: Abd soft, non-distended, mildly tender to palpation diffusely, no r/r/g : No CVA tenderness Musc: Full ROM, no deformity Skin: Warm, diaphoretic Neuro: Alert, oriented, grossly intact, sensation intact Psych: Anxious [facility] Medical History Marijuana abuse Shanna-Jaime tear B12 nutritional deficiency Claustrophobia Mild cognitive impairment Tobacco use HLD (hyperlipidemia) HTN (hypertension) Right adrenal mass History of kidney stones History of seizure Cyclic vomiting syndrome Hiatal hernia Heart attack Home Medications ?Medication ?Instructions ?Recorded ?Last Taken ?Type amlodipine 10 mg tablet 10 mg PO DAILY 11/11/22 Unknown History aspirin 81 mg chewable tablet 81 mg PO DAILY 11/11/22 Unknown History atorvastatin 40 mg tablet 40 mg PO DAILY 11/11/22 Unknown History citalopram 40 mg tablet 40 mg PO DAILY 11/11/22 Unknown History sucralfate 1 gram tablet 1 g PO 4X/DAY 11/11/22 Unknown History acetaminophen 500 mg tablet 500 mg PO Q6H PRN pain 08/22/23 Unknown History (Tylenol Extra Strength) clopidogrel 75 mg tablet (Plavix) 75 mg PO DAILY 08/22/23 Unknown History metoprolol succinate 25 mg 25 mg PO DAILY 08/22/23 Unknown History tablet,extended release 24 hr nitroglycerin 0.4 mg sublingual 0.4 mg sublingual Q5M PRN chest 08/22/23 Unknown History tablet pain dicyclomine 20 mg tablet 20 mg PO Q6H PRN abdominal 06/30/24 Unknown Rx cramping #20 tabs lisinopril 40 mg tablet 40 mg PO DAILY 07/10/24 Unknown History trazodone 100 mg tablet 100 mg PO QHS 09/02/24 Unknown History magnesium chloride 64 mg 128 mg (2 x 64 mg) PO BID #60 tabs 10/18/24 Unknown Rx (magnesium chloride) tablet,delayed release (Mag 64) fenofibrate nanocrystallized 145 145 mg PO DAILY 11/10/24 Unknown History mg tablet ondansetron 4 mg disintegrating 4 mg PO Q6H PRN nausea and 11/12/24 Unknown Rx tablet vomiting #30 tabs pantoprazole 40 mg tablet,delayed 40 mg PO BID #60 tabs 11/13/24 Unknown Rx release ondansetron 4 mg disintegrating 4 mg PO Q8H PRN PRN Nausea #10 tabs 12/04/24 Unknown Rx tablet ondansetron 4 mg disintegrating 4 mg PO Q8H PRN PRN Nausea #10 tabs 04/05/25 Unknown Rx tablet Allergy/AdvReac Type Severity Reaction Status Date / Time Penicillins (PCN) Allergy Severe Rash Verified 04/09/25 15:16 sertraline (From Zoloft) Allergy Severe Other Verified 04/09/25 15:16 meloxicam (From Mobic) Allergy Mild Itching Verified 04/09/25 15:16 chlorpromazine (From Allergy lethargic Verified 04/09/25 15:16 Thorazine) nitrofurantoin (From AdvReac Severe Rash Verified 04/09/25 15:16 Macrobid) ketorolac (From Toradol) AdvReac Nausea Verified 04/09/25 15:16 Family History Mother Heart disease Father Heart disease Surgical History S/P primary angioplasty with coronary stent History of repair of hiatal hernia History of cholecystectomy Social History household members: spouse Smoking Status: Current every day smoker tobacco type: cigarettes and cigars per week: 28 alcohol intake: never details: Denies alcohol use and history of pancreatitis substance use type: does not use EXAM Physical Exam Const Vital Signs: 04/09/25 15:10 04/09/25 16:00 04/09/25 16:30 Temperature 98.7 F Temperature Source Oral Pulse Rate 144 H 138 H 98 Respiratory Rate 20 H 23 H Blood Pressure 156/111 H 159/109 H 157/107 H Blood Pressure Mean 126 125 121 Pulse Ox 100 98 96 Oxygen Delivery Method Room Air 04/09/25 16:53 04/09/25 17:00 04/09/25 18:30 Temperature Temperature Source Pulse Rate 95 92 112 H Respiratory Rate 5 L 8 L 14 Blood Pressure 139/92 H 141/100 H Blood Pressure Mean 107 113 Pulse Ox Oxygen Delivery Method MDM MDM MDM Narrative Medical decision making narrative: 64-year-old male with past medical history of cyclic vomiting secondary to marijuana abuse, HTN, history of seizures presents for evaluation of headache, nausea, and vomiting. Associated symptom is body aches. Patient states that he smokes marijuana. States he has not used in several days. States yesterday he developed nausea and vomiting. Today developed headache and bodyaches. On arrival, patient is anxious and constantly moving in the room. He is tachycardic and diaphoretic. Differential diagnosis includes but is not limited to cyclic vomiting, viral illness, electrolyte abnormality, dehydration, STANLEY, intra-abdominal pathology such as diverticulitis, pancreatitis. Suspect less likely ACS or intracranial abnormality however on the differential. NS bolus, morphine, Benadryl, capsaicin cream ordered. Laboratory workup ordered including CT head and CT abdomen pelvis. I was informed from pharmacy that we do not have capsaicin cream at this time. This was canceled. CBC shows leukocytosis of 21.6. On chart review, this seems to be about patient's baseline leukocytosis. He has baseline anemia with a hemoglobin of 12.7. Thrombocytosis of 579. Has a history of this in the past. CMP is consistent with dehydration. Patient has hypokalemia of 3.1. P.o. potassium ordered. He has an anion gap of 26. BUN of 35 and a creatinine of 2.24. Patient has normal creatinine at baseline. Another NS bolus ordered giving a total of 2 L. He is mildly hyperglycemic at 141. Given he has an anion gap will assess for DKA. pH, acetone, hemoglobin A1c ordered. Lactic acid 5. I suspect this is secondary to dehydration from nausea and vomiting. Fluids running. Magnesium is low. IV magnesium ordered. Has a AST transaminitis. Troponin 30. Patient not endorsing any chest pain. Lipase unremarkable. Beta hydroxybutyrate elevated at 1.5. VBG without acidosis. Hemoglobin A1c is 5. Patient's anion gap is secondary to dehydration and not diabetes. Ethanol level unremarkable. CT of the brain shows no acute process. CT abdomen pelvis shows circumferential bladder wall thickening, unchanged, may represent cystitis. Currently waiting on a UA. Patient has chronic findings such as hiatal hernia, fatty liver, renal cyst. On reevaluation, patient is no longer vomiting. His tachycardia is improving. However patient will warrant admission for his dehydration and electrolyte abnormalities. He confirmed understand the plan. Patient was discussed with the hospitalist who accepted admission. UA and urine drug screen still pending. EKG: Interpreted by me/EM physician: EKG shows sinus tachycardia with PVCs. Nonspecific ST changes however think this is secondary to his rate. Heart rate 130. Diagnostic: Interpreted by me/EM physician: Chest x-ray no pneumonia, effusion, cardiomegaly, pneumothorax. Radiology in agreement. Impression: 1. Nausea and vomiting, suspect cyclic vomiting secondary to marijuana abuse 2. Severe dehydration with anion gap and lactic acidosis 3. STANLEY 4. Hypokalemia 5. Hypomagnesia 6. AST transaminitis 7. Chronic leukocytosis 8. Chronic anemia 9. Thrombocytosis Lab Data Labs: Laboratory Results - last 24 hr 04/09/25 04/09/25 15:42 16:30 WBC 21.6 H RBC 5.36 Hgb 12.7 L Hct 37.8 L MCV 70.5 L D MCH 23.7 L MCHC 33.6 RDW Std Deviation 45.3 H RDW Coeff of Florencio 18.9 H Plt Count 579 H MPV 10.0 Immature Gran % (Auto) 1.000 H Neut % (Auto) 88.0 H Lymph % (Auto) 3.8 L [place] % (Auto) 7.1 Eos % (Auto) 0.0 Baso % (Auto) 0.1 Absolute Neuts (auto) 19.0 H Absolute Lymphs (auto) 0.83 Nucleated RBC % 0 Plt Morphology Comment LARGE Target Cells 1+ Rebecca Cells RARE Sodium 138 Potassium 3.1 L Chloride 97 L Carbon Dioxide 15.1 L Anion Gap 26 H BUN 35 H Creatinine 2.24 H Est GFR (MDRD) Non-Af 32 L BUN/Creatinine Ratio 15.8 Glucose 141 H Hemoglobin A1c 5.0 Lactic Acid 5.0 H* Calcium 10.4 Magnesium 1.0 L Total Bilirubin 0.44 AST 61 H ALT 31 Alkaline Phosphatase 54 Troponin T High Sens 30 H Total Protein 7.8 Albumin 4.6 Globulin 3.2 Albumin/Globulin Ratio 1.4 Lipase 31 b-Hydroxybutyric mmol/L 1.5 H Ethyl Alcohol < 10.1 ABG Data ABG results: ABG 04/09/25 17:28 Specimen Type ART Sample Site L Radial pH 7.52 H Bicarbonate Actual 21.0 L Total CO2 22 Base Excess -2 O2 Saturation 98 O2 % 21.0 ABG pCO2 25.6 L ABG pO2 88 Roderick Test Positive O2 Delivery Device Room Air Vent Mode Not entered Radiography Diagnostic Testing: Clinical Impression(s) from Imaging Studies Chest X-Ray 04/09/25 15:54 IMPRESSION: No acute cardiopulmonary abnormality. Reading Location: [facility] Abdomen/Pelvis CT 04/09/25 15:55 IMPRESSION: 1. Mild circumferential bladder wall thickening, unchanged and which may again represent cystitis. Otherwise no acute intra-abdominal abnormality. 2. Chronic unchanged findings as detailed above, to include hiatal hernia, hepatic steatosis, and numerous renal cysts. Reading Location: [facility] Brain CT 04/09/25 15:58 IMPRESSION: No acute intracranial process. Reading Location: [facility] Discharge Plan Triage Chief Complaint: Headache ED Provider: Dl Wolff Dx/Rx/DC Orders Prescriptions: No Action clopidogrel [Plavix] 75 mg tablet 75 mg PO DAILY metoprolol succinate 25 mg tablet extended release 24 hr 25 mg PO DAILY nitroglycerin 0.4 mg tablet, sublingual 0.4 mg sublingual Q5M PRN (Reason: chest pain) Rx Instructions: do not exceed 3 doses per episode acetaminophen [Tylenol Extra Strength] 500 mg tablet 500 mg PO Q6H PRN (Reason: pain) atorvastatin 40 mg Tablet 40 mg PO DAILY citalopram 40 mg Tablet 40 mg PO DAILY sucralfate 1 gram Tablet 1 g PO 4X/DAY amlodipine 10 mg Tablet 10 mg PO DAILY aspirin 81 mg Tablet,Chewable 81 mg PO DAILY dicyclomine 20 mg tablet 20 mg PO Q6H PRN (Reason: abdominal cramping) Qty: 20 0RF lisinopril 40 mg tablet 40 mg PO DAILY fenofibrate nanocrystallized 145 mg tablet 145 mg PO DAILY ondansetron 4 mg tablet,disintegrating 4 mg PO Q6H PRN (Reason: nausea and vomiting) Qty: 30 0RF pantoprazole 40 mg tablet,delayed release (DR/EC) 40 mg PO BID Qty: 60 2RF ondansetron 4 mg tablet,disintegrating 4 mg PO Q8H PRN PRN (Reason: Nausea) Qty: 10 0RF trazodone 100 mg tablet 100 mg PO QHS magnesium chloride [Mag 64] 64 mg Tablet,Delayed Release (Dr/Ec) 128 mg PO BID Qty: 60 0RF ondansetron 4 mg tablet,disintegrating 4 mg PO Q8H PRN PRN (Reason: Nausea) Qty: 10 0RF Primary Care Provider: Arias Lemus Referrals: Arias Lemus, [Primary Care Provider] - Print Language: Wallisian
[2025-04-09 16:17] LABS: Hematocrit 37.8 % (40-54); Hemoglobin 12.7 g/dL (13.0-16.5); Immature Granulocytes Count 0.210 X10^3/uL (0.0-0.0); Mean Corp Hgb Conc 33.6 g/dL (32-36); Mean Corpuscular Volume 70.5 fL (80-94); Mean Platelet Vol. 10.0 fl (6.2-12.0); NRBC Flagged by Analyzer 0 % (0-5); POSITIVE DIFFERENTIAL YES; Platelet Count 579 K/mm3 (150-450); RBC Distribution Width CV 18.9 % (11.6-14.6); RBC Distribution Width SD 45.3 fl (35.1-43.9); Red Blood Count 5.36 M/mm3 (4.6-6.2); White Blood Count 21.6 K/mm3 (4.4-11.0)
[2025-04-09] MEDS: DiphenhydrAMINE 50 MG/ML Syringe 25 MG IV ×2 (16:21→21:40)
[2025-04-09] MEDS: 0.9% Normal Saline (1000mL) 1,000 ML 1000 ML IV ×2 (16:22→17:20)
[2025-04-09 16:40] LABS: Lipase 31 U/L (13-75)
[2025-04-09 16:41] LABS: AST(SGOT) 61 U/L (<=37); Alanine Aminotransfer ALT/SGPT 31 U/L (<=46); Albumin, Serum 4.6 g/dL (3.4-4.8); Alkaline Phosphatase 54 U/L (40-129); Anion Gap 26 (5-15); BUN 35 mg/dL (4-19); BUN/Creat Ratio 15.8 RATIO (10-20); Calcium,Total 10.4 mg/dL (7.6-11.0); Carbon Dioxide 15.1 mmol/L (21.0-32.0); Chloride 97 mmol/L (98-108); Globulin 3.2 g/dL (2.2-4.2); Glucose 141 mg/dL (70-99); Potassium 3.1 mmol/L (3.3-5.1)
[2025-04-09] MEDS: Potassium Chloride Oral Soln 20 MEQ/15 ML UDC 40 MEQ PO (17:20)
[2025-04-09 17:26] LABS: Differential Indicated SCAN CRITERIA MET
[2025-04-09 17:27] LABS: Burr Cells RARE; Target Cells 1+
[2025-04-09 17:31] LABS: Allen Test Positive; Base Excess -2 mmol/L (-2 to +2); FI02 21.0; PO2 88 mmHG (75-100); SITE L Radial; SO2 98 % (95-99)
[2025-04-09 17:40] LABS: Magnesium 1.0 mg/dL (1.5-2.2); Troponin T High Sensitivity 30 ng/L (<=22)
[2025-04-09 17:45] LABS: Alcohol, Blood (Medical)-Serum < 10.1 mg/dL (<=10.0)
[2025-04-09 18:06] LABS: BETA-HYDROXYBUTYRATE 1.5 mmol/L (0.0-0.3)
--- NOTE | 2025-04-09 18:50 | PCM.HP.STD ---
HPI - General General Date of Admission: 04/09/25 Date of Service: 04/09/25 Chief Complaint: Intractable nausea/vomiting with poor p.o. intake and headache HPI Narrative MINDY PENN, is a 64 M who presented to [facility] ED on 04/09/2025 with intractable nausea/vomiting with poor p.o. intake and headache. Medical history is significant for marijuana use with cyclical vomiting syndrome, history of CAD with stenting, hypertension, hyperlipidemia, anxiety/depression and GERD. He was recently seen in the ER here on 04/05 for abdominal pain with nausea and vomiting. He did report smoking marijuana a few days prior to onset of symptoms. He was given IV fluids IV Reglan, Benadryl and capsaicin cream and reported feeling better with these interventions. CT of the pelvis was unremarkable and labs were fairly benign. He was given a prescription for Zofran and then discharged home. He presents today with continued nausea/vomiting and poor p.o. intake now with headache and bodyaches. In the ED he was tachycardic to the 110s, hypertensive to the 150s systolic, otherwise stable on room air at rest. Labs notable for WBC count 21, sodium 138, potassium 3.1, creatinine 2.24 (baseline around 1.0), BUN 35, magnesium 1.0 and lactic acid 5.0. He was given 2 L of IV normal saline, IV Benadryl, IV Reglan and IV morphine with some improvement in symptoms. Hospitalist was then contacted for admission. I saw the patient at bedside in the ED. Patient was somewhat somnolent appearing but otherwise sitting back in bed and in no acute distress currently. He did have some shifting in bed noted during the encounter and stated he continued to have some nausea and a headache but these have improved from earlier today. He denies any fevers or chills. Denies any other pain or discomfort. Will be admitted for further management. [facility] Medical History Marijuana abuse Shanna-Jaime tear B12 nutritional deficiency Claustrophobia Mild cognitive impairment Tobacco use HLD (hyperlipidemia) HTN (hypertension) Right adrenal mass History of kidney stones History of seizure Cyclic vomiting syndrome Hiatal hernia Heart attack Home Medications ?Medication ?Instructions ?Recorded ?Last Taken ?Type amlodipine 10 mg tablet 10 mg PO DAILY 11/11/22 Unknown History aspirin 81 mg chewable tablet 81 mg PO DAILY 11/11/22 Unknown History atorvastatin 40 mg tablet 40 mg PO DAILY 11/11/22 Unknown History citalopram 40 mg tablet 40 mg PO DAILY 11/11/22 Unknown History sucralfate 1 gram tablet 1 g PO 4X/DAY 11/11/22 Unknown History acetaminophen 500 mg tablet 500 mg PO Q6H PRN pain 08/22/23 Unknown History (Tylenol Extra Strength) clopidogrel 75 mg tablet (Plavix) 75 mg PO DAILY 08/22/23 Unknown History metoprolol succinate 25 mg 25 mg PO DAILY 08/22/23 Unknown History tablet,extended release 24 hr nitroglycerin 0.4 mg sublingual 0.4 mg sublingual Q5M PRN chest 08/22/23 Unknown History tablet pain dicyclomine 20 mg tablet 20 mg PO Q6H PRN abdominal 06/30/24 Unknown Rx cramping #20 tabs lisinopril 40 mg tablet 40 mg PO DAILY 07/10/24 Unknown History trazodone 100 mg tablet 100 mg PO QHS 09/02/24 Unknown History magnesium chloride 64 mg 128 mg (2 x 64 mg) PO BID #60 tabs 10/18/24 Unknown Rx (magnesium chloride) tablet,delayed release (Mag 64) fenofibrate nanocrystallized 145 145 mg PO DAILY 11/10/24 Unknown History mg tablet ondansetron 4 mg disintegrating 4 mg PO Q6H PRN nausea and 11/12/24 Unknown Rx tablet vomiting #30 tabs pantoprazole 40 mg tablet,delayed 40 mg PO BID #60 tabs 11/13/24 Unknown Rx release ondansetron 4 mg disintegrating 4 mg PO Q8H PRN PRN Nausea #10 tabs 12/04/24 Unknown Rx tablet ondansetron 4 mg disintegrating 4 mg PO Q8H PRN PRN Nausea #10 tabs 04/05/25 Unknown Rx tablet Allergy/AdvReac Type Severity Reaction Status Date / Time Penicillins (PCN) Allergy Severe Rash Verified 04/09/25 15:16 sertraline (From Zoloft) Allergy Severe Other Verified 04/09/25 15:16 meloxicam (From Mobic) Allergy Mild Itching Verified 04/09/25 15:16 chlorpromazine (From Allergy lethargic Verified 04/09/25 15:16 Thorazine) nitrofurantoin (From AdvReac Severe Rash Verified 04/09/25 15:16 Macrobid) ketorolac (From Toradol) AdvReac Nausea Verified 04/09/25 15:16 Family History Mother Heart disease Father Heart disease Surgical History S/P primary angioplasty with coronary stent History of repair of hiatal hernia History of cholecystectomy Social History household members: spouse Smoking Status: Current every day smoker tobacco type: cigarettes and cigars per week: 28 alcohol intake: never details: Denies alcohol use and history of pancreatitis substance use type: does not use ROS Constitutional Constitutional: Reports fatigue; Denies chills, fever(s) or weakness Eyes Eyes: Denies change in vision Cardiovascular Cardiovascular: Denies chest pain Respiratory/Chest Respiratory/Chest: Denies shortness of breath at rest Gastrointestinal Gastrointestinal: Reports nausea and vomiting; Denies abdominal pain, constipation, diarrhea or dyspepsia Genitourinary Genitourinary: Denies dysuria Musculoskeletal Musculoskeletal: Denies arthralgias or myalgias Neurologic Neurologic: Denies dizziness, focal weakness or headache(s) Vital Signs Vital Signs Vital Signs: 04/09/25 15:10 04/09/25 16:00 04/09/25 16:30 Temperature 98.7 F Temperature Source Oral Pulse Rate 144 H 138 H 98 Respiratory Rate 20 H 23 H Blood Pressure 156/111 H 159/109 H 157/107 H Blood Pressure Mean 126 125 121 Pulse Ox 100 98 96 Oxygen Delivery Method Room Air 04/09/25 16:53 04/09/25 17:00 04/09/25 18:30 Temperature Temperature Source Pulse Rate 95 92 112 H Respiratory Rate 5 L 8 L 14 Blood Pressure 139/92 H 141/100 H Blood Pressure Mean 107 113 Pulse Ox Oxygen Delivery Method Physical Exam Const alert, no apparent distress and average body habitus Constitutional Narrative: Upper middle-aged male, alert but somewhat somnolent and lethargic, otherwise sitting back fairly comfortably in bed, answering questions with short appropriate responses, in no acute distress. General Appearance: cooperative and comfortable Orientation / Consciousness: lethargic HEENT normocephalic, head/scalp atraumatic, hearing grossly normal bilaterally, nasal mucous membranes and turbinates normal and moist oral mucous membranes Eyes PERRL, EOMs intact bilaterally and conjunctivae normal Neck full ROM Chest inspection of chest normal Resp normal respiratory effort, normal air movement, no use of accessory muscles and clear to auscultation bilaterally Cardio no murmurs and peripheral pulses 2+ throughout Cardio Narrative: Tachycardic, regular rhythm. GI GI Narrative: Mild diffuse tenderness to palpation. Abdomen otherwise soft and nondistended. Back/Spine normal ROM Extremity normal to inspection, full ROM and no pedal edema Skin no rashes or lesions noted Psych mental status grossly normal Mood & Affect: anxious Results Lab / Micro Data 04/09/25 15:42 04/09/25 15:42 Labs: Laboratory Results - last 24 hr 04/09/25 15:42: WBC 21.6 H, RBC 5.36, Hgb 12.7 L, Hct 37.8 L, MCV 70.5 L D, MCH 23.7 L, MCHC 33.6, RDW Std Deviation 45.3 H, RDW Coeff of Florencio 18.9 H, Plt Count 579 H, MPV 10.0, Immature Gran % (Auto) 1.000 H, Neut % (Auto) 88.0 H, Lymph % (Auto) 3.8 L, [place] % (Auto) 7.1, Eos % (Auto) 0.0, Baso % (Auto) 0.1, Absolute Neuts (auto) 19.0 H, Absolute Lymphs (auto) 0.83, Nucleated RBC % 0, Plt Morphology Comment LARGE, Target Cells 1+, Rebecca Cells RARE, Sodium 138, Potassium 3.1 L, Chloride 97 L, Carbon Dioxide 15.1 L, Anion Gap 26 H, BUN 35 H, Creatinine 2.24 H, Est GFR (MDRD) Non-Af 32 L, BUN/Creatinine Ratio 15.8, Glucose 141 H, Hemoglobin A1c 5.0, Calcium 10.4, Magnesium 1.0 L, Total Bilirubin 0.44, AST 61 H, ALT 31, Alkaline Phosphatase 54, Troponin T High Sens 30 H, Total Protein 7.8, Albumin 4.6, Globulin 3.2, Albumin/Globulin Ratio 1.4, Lipase 31, b-Hydroxybutyric mmol/L 1.5 H 04/09/25 16:30: Lactic Acid 5.0 H*, Ethyl Alcohol < 10.1 Micro: Microbiology 04/09/25 16:30 Mucosa - Nose SARS-CoV-2, Influenza & RSV (PCR) - Final ABG Data ABG results: ABG 04/09/25 17:28 Specimen Type ART Sample Site L Radial pH 7.52 H Bicarbonate Actual 21.0 L Total CO2 22 Base Excess -2 O2 Saturation 98 O2 % 21.0 ABG pCO2 25.6 L ABG pO2 88 Roderick Test Positive O2 Delivery Device Room Air Vent Mode Not entered Imaging Radiology Impression Chest X-Ray 04/09/25 15:54 IMPRESSION: No acute cardiopulmonary abnormality. Reading Location: [id number] Abdomen/Pelvis CT 04/09/25 15:55 IMPRESSION: 1. Mild circumferential bladder wall thickening, unchanged and which may again represent cystitis. Otherwise no acute intra-abdominal abnormality. 2. Chronic unchanged findings as detailed above, to include hiatal hernia, hepatic steatosis, and numerous renal cysts. Reading Location: [id number] Brain CT 04/09/25 15:58 IMPRESSION: No acute intracranial process. Reading Location: [id number] Assessment & Plan Assessment/Plan (1) Intractable nausea and vomiting: (2) STANLEY (acute kidney injury): PLAN: Plan Patient is a 64-year-old male who presented to [facility] ED on 04/09/2025 with intractable nausea/vomiting with poor p.o. intake and headaches. 1. Intractable nausea/vomiting presumed secondary to cyclical vomiting syndrome ? Admit under inpatient status to [facility]. History of cyclical vomiting syndrome with last hospitalization here back in October. Has had ongoing nausea/vomiting with poor p.o. intake for about 5 days now. Presented with STANLEY with dehydration, elevated lactic acid and electrolyte abnormalities as below. Given IV Benadryl, IV Reglan and IV morphine in the ED with mild to moderate improvement. Will treat with IV Reglan and IV Benadryl as needed for now. Will order cardiac diet and allow patient to eat and drink whenever he tolerates at this time. Strongly encouraged cessation for marijuana on discharge. 2. STANLEY with dehydration and elevated lactic acid ? Creatinine 2.24 on admit, baseline around 1.0. Lactic acid 5.0. Presume prerenal STANLEY from dehydration. Given 2 L of IV fluids on admit and remained mildly tachycardic, so we will give another 1 L of IV fluid over several hours tonight. Follow-up a.m. BMP and monitor urine output. 3. Hypokalemia and hypomagnesemia ? Potassium 3.1, magnesium 1.0 on admit. Phosphorus pending. Presume secondary to poor p.o. intake and GI losses. Replete as needed. 4. Marijuana abuse ? Reportedly has cut back on using marijuana but did use it in the past week or so. Strongly encouraged cessation on discharge. 5. GERD with history of peptic ulcer disease ? EGD back in October showed nonbleeding peptic ulcers chronic gastritis. Continue home p.o. PPI twice daily and sucralfate with meals. 6. History of CAD with stenting, hypertension, hyperlipidemia ? Hypertensive to the 150s systolic on admit, otherwise stable. Continue home aspirin, Plavix, amlodipine, Toprol, statin and fenofibrate. Holding home lisinopril in setting of STANLEY as above. 7. Anxiety/depression ? Continue home citalopram and trazodone at night. DVT prophylaxis: Heparin subcu CODE STATUS: Full code, verified Expected disposition: Home, TBD Total clinical time spent by myself addressing the patient's medical issues, reviewing all the data, and collaborating with patient's care team: 75 minutes. Charges/Coding Visit Charges Inpatient E&M: 75794 Init Hosp L3
[2025-04-09] MEDS: Magnesium Sulfate 2 GM in Dextrose 5%-Water (100mL Bag) 100 ML IV (19:42)
--- OUTSIDE RECORDS SUMMARY | 2025-04-09 20:46 | XMS RPT_ITS | CCD ---
Author Organization [facility] Care Team Providers Care Office Machines Wirer Name Role Phone PRERNA LEMUS Unavailable Unavailable ROBUSTPRERNA Pereira Unavailable Unavailable BRIZENDINE, CATHERINE Unavailable Unavailable ROBUSTO, G DESIREE Unavailable Unavailable GUARDADO MER Unavailable Unavailable ROBUSTO, G DESIREE Unavailable Unavailable ROBUSTO, G DESIREE Unavailable Unavailable VILLAROSA, NYDIA Unavailable Unavailable REPENNING, BURTON Unavailable Unavailable YOO ASHELY Unavailable Unavailable JOSE L, MAZEN Unavailable Unavailable JOSE L, MAZEN Unavailable Unavailable ROBUSTO, G DESIREE Unavailable Unavailable ROBUSTO, G DESIREE Unavailable Unavailable ALYSE, SORAYA Unavailable Unavailable HODGES, TRILOK Unavailable Unavailable MAATOUK, AHMAD Unavailable Unavailable GUARDADO, MER Unavailable Unavailable ROBUSTO, G DESIREE Unavailable Unavailable ROBUSTPRERNA Pereira, R (DO) Referring Unavaila ble JOSE L, [...] PRERNA LEMUS DO Primary Care Physicia n Laura Hou Unavailable Ashlee Cardenas Unavailable Unavailable Theresa, Dr. Ashlee Ruggiero Attending Luz Elena vailable Dr. 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 Fredi Angeles Attending Provider Care Physician, No Primary Primary Care Provider Unavailable Care Physician, No Primary Referring Provider Un available Dr. Fredi Angeles Attending Provider KARSON, PRERNA Primary Care Provider Unavailabl e PRERNA LEMUS Referring Provider Unavailable Dr. Fredi Angeles Referring Provider Karson BRASHER, Dr. Prerna Madison Primary Care Provider Dr. Fredi Angeles MD Attending Provider Dr. Fredi Angeles MD Referring Provider Dr. Trenton Ruiz DO Emergency Provider Dr. Iris Orozco MD Admit Provider Dr. Iris Orozco MD Other Provider Dr. Mirta Meza DO Attending Provider Dr. Mirta Meza DO Other Provider Dada Chung MD Attending Provider Dada Chung MD Emergency Provider Dr. Mindy Cooper DO Attending Provider Kenneth BRASHER, Dr. Guerin Referring Provider Kenneth BRASHER, Dr. Guerin Emergency Provider Diandra BRASHER, Dr. Mcneil Emergency Provider Ernesto GIORDANO, Dr. Iris Goss Attending Provider Rodriguez GIORDANO, Dr. Mari Attending Provider Unavaila ble Rodriguez GIORDANO, Dr. Mari Other Provider Unavailable Karson BRASHER, Dr. Prerna Madison Referring Provider Angel GIORDANO, Dr. Figueroa Attending Provider Angel GIORDANO, Dr. Figueroa Emergency Provider Eddy GIORDANO, Dr. Palomo Emergency Provider Mynor GIORDANO, Dr. Yang Attending Provider Eddy GIORDANO, Dr. Palomo Referring Provider Mynor GIORDANO, Dr. Yang Admit Provider Mynor GIORDANO, Dr. Yang Other Provider Karol GIORDANO, Dr. Aracelis Canas Attending Provider Joe GIORDANO, Dr. Talib Duran Other Provider Joe GIORDANO, Dr. Talib Duran Attending Provider Karol GIORDANO, Dr. Aracelis Canas Other Provider Emile BRASHER, Dr. Wolfe Attending Provider Duc GIORDANO, Dr. Sandoval Attending Provider Caprice GIORDANO, Dr. Del Valle Referring Provider [phone] Morro BRASHER, Dr. Jasso Referring Provider [phone] Morro BRASHER, Dr. Jasso Emergency Provider Karson BRASHER, Dr. Prerna Madison Primary Care Provider Karrie BRASHER, Dr. Stapleton Emergency Provider [phone] Prerna Lemus Primary Care Unavailable Henry Ortiz Attending Unavailable Robusto, Prerna R Primary Care Unavailable Dada Chung Attending Unavailable Robusto, Prerna R Primary Care Unavailable Mindy Cooper Attending Unavailable Mindy Cooper Referring Unavailable Robusto, Prerna R Primary Care Unavailable Koram, Aracelis Floresita Attending Unavailable Lowe, Robert Admitting Unavailable Lowe, Robert Consulting Unavailable Kam, Dewey Referring Unavailable HakeemoniMauri baumTalib F Consulting Unavailable Koram, Aracelis Floresita Consulting Unavailable Robusto, Prerna R Primary Care Unavailable Mirta Meza Attending Unavailable White, Iris L Consulting Unavailable White, Iris L Admitting Unavailable Robusto, Prerna R Primary Care Unavailable Carson Montenegro Attending Unavailable Robusto, Prerna R Primary Care Unavailable Schwiger, Pieter Attending Unavailable Robusto, Prerna R Primary Care Unavailable White, Iris L Consulting Unavailable White, Iris L Admitting Unavailable eMr Frias Attending Unavailable Robusto, Prerna R Primary Care Unavailable Kam, Dewey Attending Unavailable Robusto, Prerna R Primary Care Unavailable White, Iris L Attending Unavailable White, Iris L Consulting Unavailable White, Iris L Admitting Unavailable Mirta Meza Attending Unavailable Mirta Meza Consulting Unavailable Robusto, Prerna R Primary Care Unavailable White, Iris L Attending Unavailable Robusto, Prerna R Primary Care Unavailable Lowe, Robert Attending Unavailable Robusto, Prerna R Primary Care Unavailable Lori Xavier Attending Unavailable Caprice, Eligio Referring Unavailable Baddour, Fredi Referring Unavailable Karthik Fredi Attending Unavailable Robusto, Prerna R Primary Care Unavailable Duncan Harringtony Attending Unavailable Le, Romero Referring Unavailable Robusto, Prerna R Primary Care Unavailable Baddour, Fredi Referring Unavailable Karthik Fredi Attending Unavailable Robusto, Prerna R Primary Care Unavailable Schwanamika Pieter Attending Unavailable Aiden Baptiste Attending Unavailable Robusto, Prerna R Primary Care Unavailable Koram, Aracelis Floresita Attending Unavailable Mynor, Robert Admitting Unavailable Lowe, Robert Consulting Unavailable Kam, Dewey Referring Unavailable Joe, Talib F Consulting Unavailable Robusto, Prerna R Primary Care Unavailable Baddour, Fredi Referring Unavailable Baddour, Fredi Attending Unavailable Robusto, Prerna R Primary Care Unavailable Henry Ortiz Attending Unavailable Robusto, Prerna R Primary Care Unavailable Baddour, Fredi Attending Unavailable Baddour, Fredi Referring Unavailable Robusto, Prerna R Referring Unavailable Robusto, Prerna R Primary Care Unavailable Fredi Angeles Attending Unavailable Robusto, Prerna R Primary Care Unavailable Fredi Angeles Attending Unavailable Fredi Angeles Referring Unavailable Fredi Angeles Referring Unavailable Fredi Angeles Attending Unavailable Talib Diaz Attending Unavailable Robusto, Prerna R Primary Care Unavailable White, Iris L Admitting Unavailable Iris Orozco L Consulting Unavailable Mer Frias Attending Unavailable Mer Frias Consulting Unavailable Allergies Allergy Classification Reported Allergen(s) Allergy Type Date of Onset Reaction(s) Facility (5 sources) morphine; Translations: [MORPHINE] Drug Allergy 07-26-20 11 Unknown [facility] Repository (4 sources) NITROFURANTOIN MONOHYD/M-CRYST; Translations: [NITROFURANTOIN MONOHYD/M-CRYST] Propensity to adverse reactions (disorder) 07-26-20 11 Unknown [facility] Repository (10 sources) meloxicam; Translations: [meloxicam] Drug Allergy 12-05-19 25 Itching [facility] (8 sources) NITROFURANTOIN, MACROCRYSTALS / Nitrofurantoin, Monohydrate; Translations: [nitrofurantoin] Drug Allergy black eyes [facility] (9 sources) Penicillin; Translations: [penicillin] Drug Allergy Unknown [facility] (17 sources) Sertraline; Translations: [sertraline] Drug Allergy 09-06-20 chest pain, Other [facility] Comment on above: CHEST PAIN (14 sources) Nitrofurantoin Drug Allergy 11-11-19 23 Rash [facility] (15 sources) Penicillins; Translations: [PENICILLINS] Allergy to substance 11-12-19 [facility] (1 source) Penicillins Propensity to adverse reactions to drug 11-12-19 Vomiting [facility] (1 source) NITROFURANTOIN, MACROCRYSTALS / Nitrofurantoin, Monohydrate Drug Allergy Unknown [facility] (1 source) Vancomycin Drug Allergy Rash [facility] (2 sources) chlorproMAZINE Drug Allergy 12-05-19 25 lethargic [facility] (1 source) chlorproMAZINE Drug Allergy 04-05-20 [facility] (1 source) meloxicam Drug Allergy 04-05-20 [facility] (1 source) Nitrofurantoin Drug Allergy 04-05-20 [facility] (1 source) Penicillins Drug allergy (disorder) 04-05-20 [facility] (1 source) Sertraline Drug Allergy 04-05-20 [facility] Repository Medications Current Medications Medication Drug Class(es) Dates Sig (Normalized) Sig (Original) acetaminophen 500 mg oral tablet (9 sources) Start: 08-22-2023 take 1 tablet by mouth every six hours as needed for pain Acetaminophen (Tylenol Extra Strength) 500 mg tablet Active 500 mg PO EVERY 6 HOURS as needed for pain August 22, 2023 1:00am acetaminophen 325 mg / oxyCODONE hydrochloride 5 mg oral tablet (3 sources) Opioid Agonist Start: 06-25-2022 acetaminophen-oxyCO DONE 325 mg-5 mg oral tablet 0 Refill(s) [...] sources) Dihydropyridine Calcium Channel Angelica Start: 06-25-2022 take 1 tablet by mouth once daily Amlodipine 10 mg Tablet Active 10 mg PO DAILY November 11, 2022 1:00am Start: 02-24-2017 End: 08-22-2017 take 1 tablet by mouth once daily amLODIPine 10 mg oral tablet ; 1 tab(s) orally once a day Quantity: 30 Refills: 5 Ordered: 24-Feb-2017 Mae Jaime Start: 24-Feb-2017 End: 22-Aug-2017 Generic Substitution Allowed Comment on above: Take 10 mg by mouth once daily. aspirin 81 mg delayed release oral tablet (17 sources) Platelet Aggregation Inhibitor, Nonsteroidal Anti-inflammatory Drug Start: 07-04-2023 aspirin 81 mg oral delayed release tablet Dose : 81 mg = 1 tab(s), Oral, Daily, 0 Refill(s) Start Date: 07/04/23 Status: Ordered Start: 11-11-2022 take 1 tablet by saira th once daily Aspirin 81 mg Tablet,Chewable Active 81 mg PO DAILY November 11, 2022 1:00am Start: 02-24-2017 End: 08-22-2017 take 1 tablet [...] th once daily. atorvastatin 40 mg oral tablet (20 sources) HMG-CoA Reductase Inhibitor Start: take 1 tablet by mouth once daily Atorvastatin 40 mg Tablet Active 40 mg PO DAILY November 11, 2022 1:00am Start: 02-24-2017 End: 08-22-2017 take 1 tablet by mouth once at bedtime atorvastatin 40 mg oral tablet ; 1 tab(s) orally once (at bedtime) Quantity: 30 Refills: 5 Ordered: 24-Feb-2017 Mae Jaime Start: 24-Feb-2017 End: 22-Aug-2017 Generic Substitution Allowed citalopram 40 mg oral tablet (20 sources) Serotonin Reuptake Inhibitor Start: 06-25-2022 take 1 tablet by mouth once daily Citalopram 40 mg Tablet Active 40 mg PO DAILY November 11, 2022 1:00am Comment on above: Take 40 mg by mouth once daily. clopidogrel 75 mg oral tablet (19 sources) P2Y12 Platelet Inhibitor Start: 08-22-2023 take 1 tablet by mouth once daily Clopidogrel (Plavix) 75 mg tablet Active 75 mg PO DAILY August 22, 2023 1:00am Start: 06-25-2022 clopidogrel 75 mg oral tablet Dose : 75 mg = 1 tab(s), Oral, qDay, 0 Refill(s) Start Date: 04/06/23 Status: Ordered dicyclomine hydrochloride 20 mg oral tablet (20 sources) Anticholinergic Start: 06-30-2024 take 1 tablet by mouth every six hours as needed Dicyclomine 20 mg tablet Active 20 mg PO EVERY 6 HOURS as needed for abdominal cramping 20 0 June 30, 2024 3:48am Start: 01-16-2024 End: 06-30-2024 take 1 tablet by mouth three times daily as needed Dicyclomine 20 mg tablet Discontinued 20 mg PO THREE TIMES A DAY as needed for abdominal cramping 20 0 March 27, 2024 12:12pm June 30, 2024 3:47am Start: 11-11-2022 End: 08-22-2023 take 1 tablet by mouth three times daily Dicyclomine 20 mg tablet Discontinued 20 mg PO THREE TIMES A DAY 20 0 January 01, 2023 12:00am August 22, 2023 10:03am take 1 tablet by saira th four times daily dicyclomine 20 mg oral tablet ; 1 tab(s) orally 4 times a day Quantity: 0 Refills: 0 Ordered: 07-Apr-2023 Connie Torres Generic Substitution Allowed fenofibrate 145 mg oral tablet (20 sources) Peroxisome Proliferator Receptor alpha Agonist Start: 11-10-2024 take 1 tablet by mouth once daily Fenofibrate Nanocrystallized 145 mg tablet Active 145 mg PO DAILY November 10, 2024 1:00am Start: 07-10-2024 End: 10-17-2024 take 1 tablet by mouth once daily Fenofibrate Nanocrystallized 145 mg tablet Discontinued 145 mg PO DAILY July 10, 2024 12:00am October 17, 2024 4:21am Start: 04-06-2023 fenofibrate 16 0 mg oral tablet Dose : 160 mg = 1 tab(s), Oral, qDay, 0 Refill(s) Start Date: 04/06/23 Status: Ordered Start: 11-11-2022 End: 11-10-2024 Fenofibrate 120 mg Tablet Di scontinued 145 mg PO DAILY November 11, 2022 1:00am November 10, 2024 8:59pm Start: 11-11-2022 End: 11-10-2024 Start: 06-25-2022 fenofibrate [...] day Quantity: 5 Refills: 0 Ordered: 08-Apr-2023 Dairel Campbell Start: 08-Apr-2023 End: 12-Apr-2023 Generic Substitution [...] sources) Angiotensin Converting Enzyme Inhibitor Start: 07-10-2024 take 1 tablet by mouth once daily Lisinopril 40 mg tablet Active 40 mg PO DAILY July 10, 2024 12:00am Start: 06-20-2023 lisinopril 40 mg oral tablet Dose : 40 mg = 1 tab(s), Oral, qDay, # 30 tab(s), 0 Refill(s) Start Date: 06/20/23 Status: Ordered Start: 11-13-2019 End: 09-02-2024 take 1 tablet by mouth once daily Lisinopril 20 mg Tablet Discontinued 20 mg PO DAILY November 11, 2022 1:00am September 02, 2024 9:58pm Comment on above: Take 1 tablet by saira once daily. magnesium chloride 598 mg delayed release oral tablet (2 sources) Start: 10-18-2024 Magnesium Chloride (Mag 64) 64 mg Tablet,Delayed Release (Dr/Ec) Active 128 mg PO TWICE A DAY 60 0 October 18, 2024 1:00am magnesium oxide 250 mg oral tablet (2 [...] once a day 24 hr metoprolol succinate 25 mg extended release oral tablet (18 sources) beta-Adrenergic Angelica Start: 08-22-2023 take 1 tablet by mouth once daily Metoprolol Succinate 25 mg tablet extended release 24 hr Active 25 mg PO DAILY August 22, 2023 1:00am Start: 08-22-2023 Start: 11-13-2019 Metoprolol Suc cinate ER 25 mg oral TABLET extended release Dose : 25 mg = 1 tab(s), Oral, qDay, 0 Refill(s) Start Date: 06/25/22 Status: Ordered take 1 tablet by saira th once daily metoprolol succinate 25 mg oral tablet, extended release ; 1 tab(s) orally once a day Quantity: 0 Refills: 0 Ordered: 07-Apr-2023 Connie Torres Generic Substitution Allowed Comment on above: Take 25 mg by mouth twice daily. nitroglycerin 0.4 mg sublingual tablet (9 sources) Nitrate Vasodilator Start: 08-22-2023 Nitroglycerin 0.4 mg tablet, sublingual Active 0.4 mg SL Q5M as needed for chest pain August 22, 2023 1:00am do not exceed 3 doses per episode Start: 08-22-2023 Start: 08-22-2023 Nitroglycerin Active 0.4 MG SL Q5M August 22, 2023 1:00am do not exceed 3 doses per episode ondansetron 4 mg disintegrating oral tablet (20 sources) Serotonin-3 Receptor Antagonist Start: 12-04-2024 take 1 tablet by mouth every eight hours as needed for nausea Ondansetron 4 mg tablet,disintegrating Active 4 mg PO EVERY 8 HOURS NEEDED as needed for Nausea April 05, 2025 12:00am Start: 11-12-2024 take 1 tablet by saira th every six hours as needed for nausea and vomiting Ondansetron 4 mg tablet,disintegrating Active 4 mg PO EVERY 6 HOURS as needed for nausea and vomiting 30 0 November 12, 2024 1:00am Start: 09-06-2023 End: 01-16-2024 take 1 tablet by mouth every eight hours as needed for nausea Ondansetron 4 mg tablet,disintegrating Discontinued 4 mg PO EVERY 8 HOURS NEEDED as needed for Nausea 10 0 September 06, 2023 1:00am January 16, 2024 3:41pm Start: 04-06-2023 take 1 dose intraven ously every four hours as needed Zofran Dose : 4 mg = 2 mL, IV Push, q4h, PRN Nausea/Vomiting, 0 Refill(s) Start Date: 04/06/23 Status: Ordered Start: 12-06-2022 End: 08-22-2023 take 1 tablet by mouth every eight hours as needed for nausea Ondansetron 4 mg tablet,disintegrating Discontinued 4 mg PO EVERY 8 HOURS NEEDED as needed for Nausea 10 0 December 06, 2022 12:00am August 22, 2023 10:10am take 1 tablet by saira th every eight hours as needed ondansetron (ZOFRAN, HYDROCHLORIDE,) 4 mg tablet Take 4 mg by mouth every 8 hours as needed for Nausea/Vomiting. 0 Active Comment on above: Take 4 mg by mouth e very 8 hours as needed for Nausea/Vomiting. potassium chloride 1.33 meq oral tablet (1 source) Start: 07-04-20 potassium chloride 99 mg oral tablet Dose : 99 mg = 1 tab(s), Oral, qDay, Take with food, # 100 tab(s), 0 Refill(s) Start Date: 07/04/23 Status: Ordered Protonix IV Push (2 sources) Start: 04-06-20 Protonix IV Push Dose : 40 mg =, IV Push, BIDAC, 0 Refill(s) Start Date: 04/06/23 Status: Ordered traZODone hydrochloride 100 mg oral tablet (20 sources) Serotonin Reuptake Inhibitor Start: 09-02-20 take 1 tablet by mouth at bedtime Trazodone 100 mg tablet Active 100 mg PO AT BEDTIME September 02, 2024 1:00am Start: 04-06-2023 traZODone 100 mg oral tablet Dose : 100 mg = 1 tab(s), Oral, qHS, 0 Refill(s) Start Date: 04/06/23 Status: Ordered Start: 11-11-2022 End: 09-02-2024 Trazodone 50 mg Tablet Disco ntinued 75 mg PO DAILY November 11, 2022 1:00am September 02, 2024 9:59pm Start: 11-11-2022 End: 09-02-2024 Start: 06-25-2022 traZODone 50 m g oral tablet Dose : 100 mg = 2 tab(s), Oral, qHS, 0 Refill(s) Start Date: 06/25/22 Status: Ordered Comment on above: Take 75 mg by [...] Sig (Original) ALPRAZolam 1 mg oral tablet (9 sources) Benzodiazepine Start: 08-22-20 End: 09-02-20 Alprazolam 1 mg tablet Discontinued 0 .ROUTE .COMPLEX 1 0 August 22, 2023 1:00am September 02, 2024 9:57pm Claustrophobia Claustrophobia Take 1 tablet orally 30 minutes prior to MRI hydroCHLOROthiazide 25 mg oral tablet (1 source) Thiazide Diuretic take 1 tablet by mouth once daily hydroCHLOROthiazide (HYDRODIURIL, ESIDRIX) 25 mg tablet Take 25 mg by mouth once daily. 0 Active Comment on above: Take 25 mg by mouth once daily. Dilaudid (4 sources) Opioid Agonist Start: 04-06-20 Dilaudid Dose : 1 mg = 1 mL, IV Push, q2h, PRN Pain, scale 7-10, 0 Refill(s), 84.1 Start Date: 04/06/23 Status: Ordered Start: 04-06-2023 Dilaudid Dose : 0.5 mg = 0.5 mL, IV Push, q2h, PRN Pain, scale 4-6, 0 Refill(s), 84.1 Start Date: 04/06/23 Status: Ordered lansoprazole 15 mg delayed release oral capsule (9 sources) Proton Pump Inhibitor Start: 08-22-2023 End: 03-27-2024 take 1 capsule by mouth once daily Lansoprazole 15 mg capsule,delayed release(DR/EC) Discontinued 15 mg PO DAILY August 22, 2023 1:00am March 27, 2024 9:24am meloxicam 15 mg oral tablet (19 sources) Nonsteroidal Anti-inflammatory Drug Start: 06-25-2022 End: 09-02-2024 take 1 tablet by mouth once daily as needed meropenem 500 mg injection (2 sources) Penem Antibacterial Start: 04-06-2023 meropenem 500 mg intravenous injection Dose : 500 mg =, IV Piggyback, q8h, 0 Refill(s), 84.1 Start Date: 04/06/23 Status: Ordered metoclopramide 10 mg oral tablet (5 sources) Dopamine-2 Receptor Antagonist Start: 03-27-2024 End: 09-02-2024 take 1 tablet by mouth every six hours as needed for nausea and vomiting Metoclopramide Hcl (Reglan) 10 mg tablet Discontinued 10 mg PO EVERY 6 HOURS as needed for nausea and vomiting 16 0 June 30, 2024 3:48am September 02, 2024 9:58pm [facility] daily metoclopramide HCl (REGLAN) 10 mg tablet Take 10 mg by mouth four times daily. 0 Active Comment on above: Take 10 mg by mouth four times daily. pantoprazole 40 mg delayed release oral tablet (12 sources) Proton Pump Inhibitor Start: End: take 1 tablet by mouth once daily Pantoprazole 40 mg tablet,delayed release (DR/EC) Discontinued 40 mg PO DAILY November 10, 2024 1:00am November 13, 2024 3:43pm Start: 09-02-2024 End: 10-18-2024 take 1 tablet by mouth once daily Pantoprazole 40 mg tablet,delayed release (DR/EC) Discontinued 40 mg PO DAILY September 02, 2024 1:00am October 18, 2024 8:48am Start: 09-02-2024 End: 11-13-2024 take 1 tablet by mouth twice daily Pantoprazole 40 mg tablet,delayed release (DR/EC) Discontinued 40 mg PO TWICE A DAY 60 October 18, 2024 8:48am November 10, 2024 8:59pm Start: 07-04-2023 pantoprazole 2 0 mg oral enteric coated tablet Dose : 20 mg = 1 tab(s), Oral, qDayAC, 0 Refill(s) Start Date: 07/04/23 Status: Ordered Start: 01-16-2023 pantoprazole 4 0 mg oral enteric coated tablet Dose : 40 mg = 1 tab(s), Oral, qDayAC, # 14 tab(s), 0 Refill(s), Pharmacy: [id number], 177.8, cm, 01/15/23 8:01:00 EDT, Height Start Date: 01/16/23 Status: Ordered prochlorperazine 10 mg oral tablet (5 sources) Phenothiazine Start: 03-09-2023 End: 03-12-2023 take 1 capsule by mouth three times daily Compazine use prochlorperazine Dose : 10 mg =, Oral, TID, # 12 cap(s), 0 Refill(s), Abdominal pain Start Date: 03/09/23 Stop Date: 03/12/23 Status: Ordered promethazine hydrochloride 25 mg oral tablet (20 sources) Phenothiazine Start: 07-10-2024 End: 09-02-2024 take 1 tablet by mouth three times daily as needed for nausea and vomiting Promethazine 25 mg tablet Discontinued 25 mg PO THREE TIMES A DAY as needed for nausea and vomiting July 10, 2024 7:51am September 02, 2024 9:59pm Start: 04-06-2023 End: 09-02-2024 take 1 tablet by mouth every six hours as needed for nausea and vomiting Promethazine 25 mg tablet Discontinued 25 mg PO EVERY 6 HOURS as needed for nausea and vomiting 14 January 26, 2024 12:00am June 30, 2024 3:48am Start: 01-01-2023 End: 08-22-2023 take 3 tablets by mouth three times daily as needed for nausea and vomiting Promethazine 12.5 mg tablet Discontinued 12.5 mg PO THREE TIMES A DAY as needed for nausea and vomiting 20 0 January 01, 2023 12:00am August 22, 2023 10:12am 3 doses during day; last dose no later than 4 hr before bedtime Start: 06-25-2022 End: 06-28-2022 promethazine 25 mg oral tabl et Dose : 25 mg = 1 tab(s), Oral, q6h, # 12 tab(s), 0 Refill(s) Start Date: 06/25/22 Stop Date: 06/28/22 Status: Ordered Start: 06-25-2022 End: 06-28-2022 promethazine 25 mg rectal suppository Dose : 25 mg = 1 supp, [...] at bedtime. sucralfate 1000 mg oral tablet (17 sources) Aluminum Complex Start: sucralfate 1 g oral tablet Dose : 1 gram(s) = 1 tab(s), Oral, QID, # 180 tab(s), 0 Refill(s) Start Date: 01/15/23 Status: Ordered Start: 11-11-2022 take 1 tablet by saira th four times daily Sucralfate 1 gram Tablet Active 1 g PO 4 TIMES DAILY November 11, 2022 1:00am ticagrelor 60 mg oral tablet (1 source) [...] Classification Problem Date Documented Da te Episodic/Chronic Acute and unspecified renal failure (3 sources) Acute renal failure syndrome; Translations: [Acute kidney failure, unspecified] 11-21-2024 Episodic Allergic reactions (1 source) Allergy status to penicillin; Translations: [Allergy status to penicillin] Onset: 3 Episodic Anxiety disorders (9 sources) Claustrophobia; Translations: [Claustrophobia] 08-22-2023 Chronic Cardiac dysrhythmias (2 sources) Supraventricular tachycardia; Translations: [Supraventricular tachycardia] 12-04-2024 Chronic Cardiac dysrhythmias (14 sources) Sinus tachycardia; Translations: [Tachycardia, unspecified] 03-08-2023 Episodic Coronary atherosclerosis and other heart disease (6 sources) Coronary arteriosclerosis; Translations: [Atherosclerotic heart disease of [place] coronary artery without angina pectoris] Onset: 0 11-13-2019 Chronic Deficiency and other anemia (3 sources) Anemia; Translations: [Anemia, unspecified] 10-20-2024 Episodic Diabetes mellitus without complication (10 sources) Acute hyperglycemia; Translations: [Hyperglycemia, unspecified] 03-08-2023 Episodic Diseases of white blood cells (8 sources) Leukocytosis; Translations: [Elevated white blood cell count, unspecified] Onset: 4 09-02-2024 Chronic Disorders of lipid metabolism (2 sources) Hyperlipidemia; Translations: [Hyperlipidemia, unspecified] 07-18-2024 Chronic Epilepsy; convulsions (16 sources) Seizure; Translations: [Unspecified convulsions] 08-22-2023 Episodic Essential hypertension (8 sources) Hypertensive disorder; Translations: [Essential (primary) hypertension] Onset: 3 09-19-2021 Chronic Fracture of lower limb (1 source) Closed fracture of metatarsal bone; Translations: [Other physeal fracture of unspecified metatarsal, initial encounter for closed fracture] Onset: 2 Episodic Gastritis and duodenitis (2 sources) Gastritis; Translations: [Gastritis, unspecified, without bleeding] 07-18-2024 Episodic Gastrointestinal hemorrhage (6 sources) Upper gastrointestinal bleeding; Translations: [Gastrointestinal hemorrhage, unspecified] 10-24-2024 Episodic Other aftercare (2 sources) Long-term current use of drug therapy; 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] 11-10-2024 Episodic Other circulatory disease (2 sources) Elevated blood-pressure reading without diagnosis of hypertension; Translations: [Elevated blood-pressure reading, without diagnosis of hypertension] 11-10-2024 Episodic Other diseases of kidney and ureters (13 sources) Cyst of kidney; Translations: [Cyst of kidney, acquired] 12-06-2022 Episodic Other diseases of kidney and ureters (2 sources) Acute renal insufficiency; Translations: [Disorder of kidney and ureter, unspecified] 12-04-2024 Episodic Other disorders of stomach and duodenum (20 sources) Cyclical vomiting syndrome; Translations: [Cyclical vomiting syndrome unrelated to migraine] Onset: 3 Episodic Other ear and sense organ disorders (9 sources) Hearing loss; Translations: [Unspecified hearing loss, unspecified ear] 08-22-2023 Chronic Other ear and sense organ disorders (7 sources) Unspecified hearing loss, unspecified ear; Translations: [Unspecified hearing loss] 08-22-2023 Chronic Other hereditary and degenerative nervous system conditions (10 sources) Impaired cognition; Translations: [Mild cognitive impairment, [...] specified conditions] 08-22-2023 Episodic Residual codes; unclassified (2 sources) Personal history of other specified conditions; Translations: [History of seizure] 01-26-2024 Episodic Spondylosis; intervertebral disc disorders; other back problems (1 source) Lumbar spondylosis; Translations: [Spondylosis without myelopathy or radiculopathy, lumbar region] Onset: 4 10-20-2013 Chronic Substance-related disorders (7 sources) Cannabis abuse; Translations: [Cannabis abuse, uncomplicated] Onset: 0 11-13-2019 Chronic Substance-related disorders (1 source) Marijuana user; Translations: [Cannabis use, unspecified, uncomplicated] 04-05-2025 Episodic Unclassified (2 sources) BOERHAAVE'S SYNDROME 04-06-2023 Comment on above: BOERHAAVE'S SYNDROME Unclassified (1 source) Esophageal perforation 04-07-2023 Unclassified (1 source) Acidosis, unspecified; Translations: [Acidosis, unspecified] Onset: Unclassified (2 sources) Cyclical vomiting syndrome unrelated to migraine; Translations: [Cyclical vomiting syndrome unrelated to migraine] Onset: 4 Past or Other Problems Problem Classification Problem Date Documented Da te Episodic/Chronic Abdominal pain (20 sources) Abdominal pain; Translations: [Unspecified abdominal pain] Onset: 09-12-2013 11-11-2022 Episodic Deficiency and other anemia (1 source) Anemia, unspecified; Translations: [Anemia, unspecified] Onset: 11-05-2024 Episodic Esophageal disorders (6 sources) Perforation of esophagus; Translations: [Perforation of esophagus] Onset: 04-08-2023 04-07-2023 Episodic Fluid and electrolyte disorders (20 sources) Dehydration; Translations: [Dehydration] Onset: 11-18-2024 11-11-2022 Episodic Malaise and fatigue (3 sources) Fatigue; Translations: [Other fatigue] Onset: 10-14-2024 08-14-2024 Episodic Nausea and vomiting (20 sources) Nausea and vomiting; Translations: [Nausea with vomiting, unspecified] Onset: 10-01-2014 11-17-2022 Episodic Nonspecific chest pain (4 sources) Chest pain; Translations: [Chest pain, unspecified] Onset: 10-01-2014 10-11-2024 Episodic Nutritional deficiencies (13 sources) Cobalamin deficiency; Translations: [Deficiency of other specified B group vitamins] Onset: 10-20-2024 12-17-2023 Episodic Other non-traumatic joint disorders (1 source) Pain [...] Test Name Value Interpretation Reference Range Facility Abdomen/Pelvis W IV Cont ONL Yon 04-05-2025 Abdomen/Pelvis W IV Cont ONLY Normal [facility] Absolute lymphocyte countOrd ered By: Pieter Yoon on 04-05-2025 Lymphocytes Auto (Unsp spec) [#/Vol] 1.67 10*3/uL 0.83-4.51 [facility] Absolute neutrophil countOrd ered By: Pieter Yoon on 04-05-2025 Neutrophils (Bld) [#/Vol] 16.0 10*3/uL High 2.0-7.7 [facility] Anion gap in Serum or Plasma Ordered By: Pieter Yoon on 04-05-2025 Anion gap [Moles/Vol] 18 mmol/L High 5-15 [facility] Automated lymphocyte count a s percentage of total leukocytesOrdered By: Pieter Yoon on 04-05-2025 Lymphocytes/100 WBC Auto (Unsp spec) 8.8 % Low 19-41 [facility] BUN/creatinine ratioOrdered By: Pieter Yoon on 04-05-2025 Urea nitrogen/Creatinine [Mass ratio] 11.9 mg/mg 10-20 [facility] Basophil percentageOrdered B y: Pieter Yoon on 04-05-2025 Basophils/100 WBC (Bld) 0.4 % 0-1 [facility] Bilirubin Test strip Ql (U)O rdered By: Pieter Yoon on 04-05-2025 Bilirubin Ql (U) Negative Negative [facility] Bilirubin, totalOrdered By: Pieter Yoon on 04-05-2025 Bilirubin [Mass/Vol] 0.29 mg/dL 0.00-1.30 [facility] CBC W/Diff, Automatedon 03-24 Absolute Lymph 1.67 X10 3/uL Normal 0.83-4.51 [facility] Comment on above: Performed By: #### L 501.2450, L500.4050, L100.0100 ####[facility] [address] [place], [address] Absolute Neut 16.0 X10 3/uL High 2.0-7.7 [facility] Comment on above: Performed By: #### L 501.2450, L500.4050, L100.0100 ####[facility] [address] [place], [address] Basophils/100 WBC (Bld) 0.4 % Normal 0-1 [facility] Comment on above: Performed By: #### L 501.2450, L500.4050, L100.0100 ####[facility] [address] [place], [address] Eosinophils/100 WBC (Bld) 0.8 % Normal 0-5 [facility] Comment on above: Performed By: #### L 501.2450, L500.4050, L100.0100 ####[facility] [address] [place], [address] Erythrocyte distribution width (RBC) [Ratio] 19.5 % High 11.6-14.6 [facility] Comment on above: Performed By: #### L 501.2450, L500.4050, L100.0100 ####[facility] [address] [place], [address] Hematocrit (Bld) [Volume fraction] 34.7 % Low 40-54 [facility] Comment on above: Performed By: #### L 501.2450, L500.4050, L100.0100 ####[facility] [address] [place], [address] Hemoglobin (Bld) [Mass/Vol] 11.2 g/dL Low 13.0-16.5 [facility] Comment on above: Performed By: #### L 501.2450, L500.4050, L100.0100 ####[facility] [address] [place], [address] IG% 0.800 Normal 0.0-0.9 [facility] Comment on above: Result Comment: IG% - Immature Granulocytes (promyelocytes, myelocytes andmetamyelocytes) > 1% indicates that a LEFT SHIFT is Present. Performed By: #### L 501.2450, L500.4050, L100.0100 ####[facility] [address] [place], [address] Lymphocytes/100 WBC (Bld) 8.8 % Low 19-41 [facility] Comment on above: Performed By: #### L 501.2450, L500.4050, L100.0100 ####[facility] [address] [place], [address] MCH (RBC) [Entitic mass] 24.0 pg Low 27.0-32.0 [facility] Comment on above: Performed By: #### L 501.2450, L500.4050, L100.0100 ####[facility] [address] [place], [address] MCHC (RBC) [Mass/Vol] 32.3 g/dL Normal 32-36 [facility] Comment on above: Performed By: #### L 501.2450, L500.4050, L100.0100 ####[facility] [address] [place], [address] MCV (RBC) [Entitic vol] 74.5 fL Low 80-94 [facility] Comment on above: Performed By: #### L 501.2450, L500.4050, L100.0100 ####[facility] [address] [place], [address] Monocytes/100 WBC (Bld) 4.7 % Normal 0-10 [facility] Comment on above: Performed By: #### L 501.2450, L500.4050, L100.0100 ####[facility] [address] [place], [address] Neutrophils/100 WBC (Bld) 84.5 % High 47-70 [facility] Comment on above: Performed By: #### L 501.2450, L500.4050, L100.0100 ####[facility] [address] [place], [address] Nucleated RBC (Bld) [#/Vol] 0 10*3/uL Normal 0-5 [facility] Comment on above: Performed By: #### L 501.2450, L500.4050, L100.0100 ####[facility] [address] [place], [address] Platelet mean volume (Bld) [Entitic vol] 10.0 fL Normal 6.2-12.0 [facility] Comment on above: Performed By: #### L 501.2450, L500.4050, L100.0100 ####[facility] [address] [place], [address] Platelets (Bld) [#/Vol] 414 10*3/uL Normal 150-450 [facility] Comment on above: Performed By: #### L 501.2450, L500.4050, L100.0100 ####[facility] [address] [place], [address] RBC (Bld) [#/Vol] 4.66 10*6/uL Normal 4.6-6.2 [facility] Comment on above: Performed By: #### L 501.2450, L500.4050, L100.0100 ####[facility] [address] [place], [address] RDW SD 50.3 fl High 35.1-43.9 [facility] Comment on above: Performed By: #### L 501.2450, L500.4050, L100.0100 ####[facility] [address] [place], [address] WBC (Bld) [#/Vol] 18.9 10*3/uL High 4.4-11.0 [facility] Comment on above: Performed By: #### L 501.2450, L500.4050, L100.0100 ####[facility] [address] [place], [address] Carbon dioxide, total [Moles /volume] in Central venous bloodOrdered By: Pieter Yoon on 04-05-2025 CO2 [Moles/Vol] 16.4 mmol/L Low 21.0-32.0 [facility] Chloride assayOrdered By: Jaden Yoon on 04-05-2025 Chloride [Moles/Vol] 106 mmol/L 98-108 [facility] Comprehensive Metabolic Prof ilon 04-05-2025 Albumin [Mass/Vol] 4.6 g/dL Normal 3.4-4.8 [facility] Comment on above: Performed By: #### L 501.2450, L500.4050, L100.0100 ####[facility] [address] [place], [address] Albumin/Globulin [Mass ratio] 1.4 {ratio} Normal 0.9-2.4 [facility] Comment on above: Performed By: #### L 501.2450, L500.4050, L100.0100 ####[facility] [address] [place], [address] ALK PHOS 57 U/L Normal 40-129 [facility] Comment on above: Performed By: #### L 501.2450, L500.4050, L100.0100 ####[facility] [address] [place], [address] ALT [Catalytic activity/Vol] 11 U/L Normal <=46 [facility] Comment on above: Performed By: #### L 501.2450, L500.4050, L100.0100 ####[facility] [address] [place], [address] AST [Catalytic activity/Vol] 28 U/L Normal <=37 [facility] Comment on above: Performed By: #### L 501.2450, L500.4050, L100.0100 ####[facility] [address] [place], [address] Bilirubin [Mass/Vol] 0.29 mg/dL Normal 0.00-1.30 [facility] Comment on above: Performed By: #### L 501.2450, L500.4050, L100.0100 ####[facility] [address] [place], [address] BUN/CRE 11.9 RATIO Normal 10-20 [facility] Comment on above: Performed By: #### L 501.2450, L500.4050, L100.0100 ####[facility] [address] [place], [address] Calcium [Mass/Vol] 9.9 mg/dL Normal 7.6-11.0 [facility] Comment on above: Performed By: #### L 501.2450, L500.4050, L100.0100 ####[facility] [address] [place], [address] Chloride [Moles/Vol] 106 mmol/L Normal 98-108 [facility] Comment on above: Performed By: #### L 501.2450, L500.4050, L100.0100 ####[facility] [address] [place], [address] CO2 [Moles/Vol] 16.4 mmol/L Low 21.0-32.0 [facility] Comment on above: Performed By: #### L 501.2450, L500.4050, L100.0100 ####[facility] [address] [place], [address] Creatinine [Mass/Vol] 1.06 mg/dL Normal 0.70-1.20 [facility] Comment on above: Performed By: #### L 501.2450, L500.4050, L100.0100 ####[facility] [address] [place], [address] ECRCL 70.78 ml/min Normal 50-250 [facility] Comment on above: Performed By: #### L 501.2450, L500.4050, L100.0100 ####[facility] [address] [place], [address] GAP 18 High 5-15 [facility] Comment on above: Performed By: #### L 501.2450, L500.4050, L100.0100 ####[facility] [address] [place], [address] GFR/1.73 sq M.predicted among non-blacks MDRD (S/P/Bld) [Vol rate/Area] 77 mL/min/{1.73_m2} Normal >60 [facility] Comment on above: Result Comment: mL/m in/1.73m2 CKD-EPI Creatinine Equation (2020) Performed By: #### L 501.2450, L500.4050, L100.0100 ####[facility] [address] [place], [address] Globulin (S) [Mass/Vol] 3.3 g/dL Normal 2.2-4.2 [facility] Comment on above: Performed By: #### L 501.2450, L500.4050, L100.0100 ####[facility] [address] [place], [address] Glucose [Mass/Vol] 106 mg/dL High 70-99 [facility] Comment on above: Performed By: #### L 501.2450, L500.4050, L100.0100 ####[facility] [address] [place], [address] Potassium [Moles/Vol] 3.9 mmol/L Normal 3.3-5.1 [facility] Comment on above: Performed By: #### L 501.2450, L500.4050, L100.0100 ####[facility] [address] [place], [address] Sodium [Moles/Vol] 140 mmol/L Normal 133-145 [facility] Comment on above: Performed By: #### L 501.2450, L500.4050, L100.0100 ####[facility] [address] [place], [address] T PROT 7.9 g/dL Normal 5.9-8.4 [facility] Comment on above: Performed By: #### L 501.2450, L500.4050, L100.0100 ####[facility] [address] [place], [address] Urea nitrogen [Mass/Vol] 13 mg/dL Normal 4-19 [facility] Comment on above: Performed By: #### L 501.2450, L500.4050, L100.0100 ####[facility] [address] [place], [address] Emergency Department Summary on 04-05-2025 Emergency Department Summary Normal [facility] Eosinophil percentageOrdered By: Pieter Yoon on 04-05-2025 Eosinophils/100 WBC (Bld) 0.8 % 0-5 [facility] Erythrocyte distribution wid th ratioOrdered By: Pieter Yoon on 04-05-2025 Erythrocyte distribution width (RBC) [Ratio] 19.5 % High 11.6-14.6 [facility] Erythrocyte distribution wid th standard deviationOrdered By: Pieter Yoon on 04-05-2025 Erythrocyte distribution width (RBC) [Ratio] 50.3 fl High 35.1-43.9 [facility] Glomerular filtration rate ( GFR) estimation/1.73 sq m using serum, plasma, or whole bOrdered By: Pieter Yoon on 04-05-2025 GFR/1.73 sq M.predicted among non-blacks MDRD (S/P/Bld) [Vol rate/Area] 77 mL/min/{1.73_m2} >60 [facility] Comment on above: mL/min/1.73m2 CKD-EP I Creatinine Equation (2020) Hematocrit Auto (Bld) [Volum e fraction]Ordered By: Pieter Yoon on 04-05-2025 Hematocrit (Bld) [Volume fraction] 34.7 % Low 40-54 [facility] Hemoglobin measurementOrdere d By: Pieter Yoon on 04-05-2025 Hemoglobin (Bld) [Mass/Vol] 11.2 g/dL Low 13.0-16.5 [facility] Immature granulocytes/100 WB C Auto (Bld)Ordered By: Pieter Yoon 04-05-2025 Immature granulocytes/100 WBC (Bld) 0.800 % 0.0-0.9 [facility] Comment on above: IG% - Immature Granu locytes (promyelocytes, myelocytes and metamyelocytes) > 1% indicates that a LEFT SHIFT is Present. Ketones Test strip Ql (U)Ord ered By: Pieter Yoon on 04-05-2025 Ketones Ql (U) Negative Negative [facility] Laboratory - Chemistry and C hemistry - challengeOrdered By: Pieter Yoon on 04-05-2025 AST [Catalytic activity/Vol] 28 U/L <38 [facility] Lipaseon 04-05-2025 Lipase [Catalytic activity/Vol] 53 U/L Normal 13-75 [facility] Comment on above: Result Comment: Edilberto conn note:LIPASE revised reference range effective 23.New Lipase methodology. Expected to produce lower valuesthan the previous assay method.NEW Reference Range: 13 - 75 U/L Performed By: #### L 501.2450, L500.4050, L100.0100 ####[facility] [address] [place], [address] Lipase measurementOrdered By : Pieter Yoon on 04-05-2025 Lipase [Catalytic activity/Vol] 53 U/L 13-75 [facility] Comment on above: Please note:LIPASE r evised reference range effective 23. New Lipase methodology. Expected to produce lower values than the previous assay method. NEW Reference Range: 13 - 75 U/L MCV (mean corpuscular volume ) determinationOrdered By: Pieter Yoon on 04-05-2025 MCV (RBC) [Entitic vol] 74.5 fL Low 80-94 [facility] Mean corpuscular hemoglobin (MCH) determinationOrdered By: Pieter Yoon on 04-05-2025 MCH (RBC) [Entitic mass] 24.0 pg Low 27.0-32.0 [facility] Mean corpuscular hemoglobin concentration (MCHC) determinationOrdered By: Pieter Yoon on 04-05-2025 MCHC (RBC) [Mass/Vol] 32.3 g/dL 32-36 [facility] Mean platelet volume determi nationOrdered By: Pieter Yoon on 04-05-2025 Platelet mean volume (Bld) [Entitic vol] 10.0 fL 6.2-12.0 [facility] Microscopic analysis of urin e for red blood cells (RBC)Ordered By: Pieter Yoon on 04-05-2025 Microscopic analysis of urine for red blood cells (RBC) 0-5 SEEN /hpf 0-5 [facility] Monocyte percentageOrdered B y: Pieter Yoon on 04-05-2025 Monocytes/100 WBC (Bld) 4.7 % 0-10 [facility] Mucus LM Ql (Urine sed)Order ed By: Pieter Yoon on 04-05-2025 Mucus Ql (Urine sed) 0 SEEN /hpf [facility] Neutrophil percentageOrdered By: Pieter Yoon on 04-05-2025 Neutrophils/100 WBC (Bld) 84.5 % High 47-70 [facility] Nitrite Test strip Ql (U)Ord ered By: Pieter Yoon on 04-05-2025 Nitrite Ql (U) Negative Negative [facility] Nucleated red blood cell per centageOrdered By: Pieter Yoon on 04-05-2025 Nucleated RBC/100 WBC (Bld) [Ratio] 0 % 0-5 [facility] Platelet countOrdered By: Jaden Yoon on 04-05-2025 Platelets (Bld) [#/Vol] 414 10*3/uL 150-450 [facility] Potassium measurement (mass/ volume)Ordered By: Pieter Yoon on 04-05-2025 Potassium (Unsp spec) [Mass/Vol] 3.9 mmol/L 3.3-5.1 [facility] Protein Test strip Ql (U)Ord ered By: Pieter Yoon on 04-05-2025 Protein Ql (U) 15 mg/dl High Negative [facility] RBC Auto (Bld) [#/Vol]Ordere d By: Pieter Yoon on 04-05-2025 RBC (Bld) [#/Vol] 4.66 10*6/uL 4.6-6.2 [facility] Serum creatinine measurement (mass/volume)Ordered By: Pieter Yoon on 04-05-2025 Creatinine [Mass/Vol] 1.06 mg/dL 0.70-1.20 [facility] Serum globulin measurementOr dered By: Pieter Yoon on 04-05-2025 Globulin (S) [Mass/Vol] 3.3 g/dL 2.2-4.2 [facility] Serum glucose measurement (m ass/volume)Ordered By: Pieter Yoon on 04-05-2025 Glucose [Mass/Vol] 106 mg/dL High 70-99 [facility] Serum or plasma alanine manjarrez otransferase (ALT) measurementOrdered By: Pieter Yoon on 04-05-2025 ALT [Catalytic activity/Vol] 11 U/L <47 [facility] Serum or plasma albumin madelyn urement (mass/volume)Ordered By: Pieter Yoon on 04-05-2025 Albumin [Mass/Vol] 4.6 g/dL 3.4-4.8 [facility] Serum or plasma albumin/glob ulin mass ratioOrdered By: Pieter Yoon on 04-05-2025 Albumin/Globulin [Mass ratio] 1.4 {ratio} 0.9-2.4 [facility] Serum or plasma alkaline taye sphatase measurementOrdered By: Pieter Yoon on 04-05-2025 ALP [Catalytic activity/Vol] 57 U/L 40-129 [facility] Serum or plasma calcium madleyn urement (mass/volume)Ordered By: Pieter Yoon on 04-05-2025 Calcium [Mass/Vol] 9.9 mg/dL 7.6-11.0 [facility] Serum or plasma urea nitroge n measurement (mass/volume)Ordered By: Pieter Yoon on 04-05-2025 Urea nitrogen [Mass/Vol] 13 mg/dL 4-19 [facility] Sodium levelOrdered By: Pieter Yoon on 04-05-2025 Sodium [Moles/Vol] 140 mmol/L 133-145 [facility] Squamous epithelial cells de tection in urine sediment by light microscopyOrdered By: Pieter Yoon on 04-05-2025 Epithelial cells.squamous LM Ql (Urine sed) 0 SEEN /hpf 0-5 [facility] Total proteinOrdered By: Mali Yoon on 04-05-2025 Protein [Mass/Vol] 7.9 g/dL 5.9-8.4 [facility] Urinalysis, Completeon 04-05 RBC 0-5 SEEN Normal 0-5 [facility] Comment on above: Order Comment: Urine , Random Performed By: #### L 400.0001 ####[facility] [address] [place], [address] WBC 0-5 SEEN Normal 0-5 [facility] Comment on above: Order Comment: Urine , Random Performed By: #### L 400.0001 ####[facility] [address] [place], [address] BACTERIA 0 SEEN Normal None Seen [facility] Comment on above: Order Comment: Urine , Random Performed By: #### L 400.0001 ####[facility] [address] [place], [address] EPI,SQUAMOUS 0 SEEN Normal 0-5 [facility] Comment on above: Order Comment: Urine , Random Performed By: #### L 400.0001 ####[facility] [address] [place], [address] Mucus Ql (Urine sed) [address] [facility] Comment on above: Order Comment: Urine , Random Performed By: #### L 400.0001 ####[facility] [address] [place], [place], [address] Urine clarityOrdered By: Mali Yoon on 04-05-2025 Clarity (U) Clear Clear [facility] Urine color determinationOrd ered By: Pieter Yoon on 04-05-2025 Color (U) Yellow Yellow [facility] Urine glucose detectionOrder ed By: Pieter Yoon on 04-05-2025 Glucose Ql (U) Normal mg/dl Normal [facility] Urine leukocyte esterase det ection by dipstickOrdered By: Pieter Yoon on 04-05-2025 Leukocyte esterase Test strip Ql (U) Negative Negative [facility] Urine pHOrdered By: Pieter freeman on 04-05-2025 pH (U) 6.0 [pH] 5.0 - 8.0 [facility] Urine sediment bacteria coun t by microscopy (number/high power field)Ordered By: Pieter Yoon on 04-05-2025 Bacteria LM.HPF (Urine sed) [#/Area] 0 /[HPF] None Seen [facility] Urine specific gravity measu rementOrdered By: Pieter Yoon on 04-05-2025 Specific gravity (U) [Rel density] 1.010 1.002-1.03 0 [facility] Urine urobilinogen measureme ntOrdered By: Pieter Yoon on 04-05-2025 Urobilinogen Ql (U) Normal mg/dl Normal [facility] White blood cell (WBC) count Ordered By: Pieter Yoon on 04-05-2025 WBC (Bld) [#/Vol] 18.9 10*3/uL High 4.4-11.0 [facility] White blood cell countOrdere d By: Pieter Yoon on 04-05-2025 White blood cell count 0-5 SEEN /hpf 0-5 [facility] ALP [Catalytic activity/Vol] Ordered By: Romero Harrington on 12-04-2024 Serum or plasma alkaline phosphatase measurement 54 U/L 40-129 [facility] ALT [Catalytic activity/Vol] Ordered By: Romero Harrington on 12-04-2024 Serum or plasma alanine aminotransferase (ALT) measurement 12 U/L <47 [facility] Abdomen/Pelvis without Conto n 12-04-2024 Abdomen/Pelvis without Cont Normal [facility] Absolute neutrophil countOrd ered By: Romero Harrington on 12-04-2024 Absolute neutrophil count 17.9 X10^3/uL High 2.0-7.7 [facility] Albumin [Mass/Vol]Ordered By : Romero Harrington on 12-04-2024 Serum or plasma albumin measurement (mass/volume) 4.8 g/dL 3.4-4.8 [facility] Albumin/Globulin [Mass ratio ]Ordered By: Romero Harrington on 12-04-2024 Serum or plasma albumin/globulin mass ratio 1.6 RATIO 0.9-2.4 [facility] Anion gap [Moles/Vol]Ordered By: Romero Harrington on 12-04-2024 Anion gap in Serum or Plasma 22 High 5-15 [facility] BUN/creatinine ratioOrdered By: Romero Harrington on 12-04-2024 BUN/creatinine ratio 9.5 RATIO Low 10-20 [facility] Basophil percentageOrdered B y: Romero Harrington on 12-04-2024 Basophil percentage 0.1 % 0-1 [facility] Bilirubin, totalOrdered By: Romero Harrington on 12-04-2024 Bilirubin, total 0.35 mg/dL 0.00-1.30 [facility] CBC W/Diff, Automatedon 11-22 Absolute Lymph 0.65 X10 3/uL Low 0.83-4.51 [facility] Comment on above: Performed By: #### L 100.0100, L500.4050, L501.2450 ####[facility] [address] [place], [address] Absolute Neut 17.9 X10 3/uL High 2.0-7.7 [facility] Comment on above: Performed By: #### L 100.0100, L500.4050, L501.2450 ####[facility] [address] [place], [address] Basophils/100 WBC (Bld) 0.1 % Normal 0-1 [facility] Comment on above: Performed By: #### L 100.0100, L500.4050, L501.2450 ####[facility] [address] [place], [address] Eosinophils/100 WBC (Bld) 0.3 % Normal 0-5 [facility] Comment on above: Performed By: #### L 100.0100, L500.4050, L501.2450 ####[facility] [address] [place], [address] Erythrocyte distribution width (RBC) [Ratio] 15.2 % High 11.6-14.6 [facility] Comment on above: Performed By: #### L 100.0100, L500.4050, L501.2450 ####[facility] [address] [place], [address] Hematocrit (Bld) [Volume fraction] 32.7 % Low 40-54 [facility] Comment on above: Performed By: #### L 100.0100, L500.4050, L501.2450 ####[facility] [address] [place], [address] Hemoglobin (Bld) [Mass/Vol] 10.9 g/dL Low 13.0-16.5 [facility] Comment on above: Performed By: #### L 100.0100, L500.4050, L501.2450 ####[facility] [address] [place], [address] IG% 0.800 Normal 0.0-0.9 [facility] Comment on above: Result Comment: IG% - Immature Granulocytes (promyelocytes, myelocytes andmetamyelocytes) > 1% indicates that a LEFT SHIFT is Present. Performed By: #### L 100.0100, L500.4050, L501.2450 ####[facility] [address] [place], [address] Lymphocytes/100 WBC (Bld) 3.2 % Low 19-41 [facility] Comment on above: Performed By: #### L 100.0100, L500.4050, L501.2450 ####[facility] [address] [place], [address] MCH (RBC) [Entitic mass] 27.4 pg Normal 27.0-32.0 [facility] Comment on above: Performed By: #### L 100.0100, L500.4050, L501.2450 ####[facility] [address] [place], [address] MCHC (RBC) [Mass/Vol] 33.3 g/dL Normal 32-36 [facility] Comment on above: Performed By: #### L 100.0100, L500.4050, L501.2450 ####[facility] [address] [place], [address] MCV (RBC) [Entitic vol] 82.2 fL Normal 80-94 [facility] Comment on above: Performed By: #### L 100.0100, L500.4050, L501.2450 ####[facility] [address] [place], [address] Monocytes/100 WBC (Bld) 7.1 % Normal 0-10 [facility] Comment on above: Performed By: #### L 100.0100, L500.4050, L501.2450 ####[facility] [address] [place], [address] Neutrophils/100 WBC (Bld) 88.5 % High 47-70 [facility] Comment on above: Performed By: #### L 100.0100, L500.4050, L501.2450 ####[facility] [address] [place], [address] Nucleated RBC (Bld) [#/Vol] 0 10*3/uL Normal 0-5 [facility] Comment on above: Performed By: #### L 100.0100, L500.4050, L501.2450 ####[facility] [address] [place], [address] Platelet mean volume (Bld) [Entitic vol] 9.7 fL Normal 6.2-12.0 [facility] Comment on above: Performed By: #### L 100.0100, L500.4050, L501.2450 ####[facility] [address] [place], [address] Platelets (Bld) [#/Vol] 523 10*3/uL High 150-450 [facility] Comment on above: Performed By: #### L 100.0100, L500.4050, L501.2450 ####[facility] [address] [place], [address] RBC (Bld) [#/Vol] 3.98 10*6/uL Low 4.6-6.2 [facility] Comment on above: Performed By: #### L 100.0100, L500.4050, L501.2450 ####[facility] [address] [place], [address] RDW SD 46.0 fl High 35.1-43.9 [facility] Comment on above: Performed By: #### L 100.0100, L500.4050, L501.2450 ####[facility] [address] [place], [address] WBC (Bld) [#/Vol] 20.2 10*3/uL High 4.4-11.0 [facility] Comment on above: Performed By: #### L 100.0100, L500.4050, L501.2450 ####[facility] [address] [place], [address] Calcium [Mass/Vol]Ordered By : Romero Harrington on 12-04-2024 Serum or plasma calcium measurement (mass/volume) 11.5 mg/dL High 7.6-11.0 [facility] Carbon dioxide, total [Moles /volume] in Central venous bloodOrdered By: Romero Harrington on 12-04-2024 Carbon dioxide, total [Moles/volume] in Central venous blood 18.1 mmol/L Low 21.0-32.0 [facility] Chloride assayOrdered By: Butch Harrington on 12-04-2024 Chloride assay 102 mmol/L 98-108 [facility] Comprehensive Metabolic Prof ilon 12-04-2024 Albumin [Mass/Vol] 4.8 g/dL Normal 3.4-4.8 [facility] Comment on above: Performed By: #### L 100.0100, L500.4050, L5.2450 ####[facility] [address] [place], [address] Albumin/Globulin [Mass ratio] 1.6 {ratio} Normal 0.9-2.4 [facility] Comment on above: Performed By: #### L 100.0100, L500.4050, L501.2450 ####[facility] [address] [place], [address] ALK PHOS 54 U/L Normal 40-129 [facility] Comment on above: Performed By: #### L 100.0100, L500.4050, L501.2450 ####[facility] [address] [place], [address] ALT [Catalytic activity/Vol] 12 U/L Normal <=46 [facility] Comment on above: Performed By: #### L 100.0100, L500.4050, L501.2450 ####[facility] [address] [place], [address] AST [Catalytic activity/Vol] 30 U/L Normal <=37 [facility] Comment on above: Performed By: #### L 100.0100, L500.4050, L501.2450 ####[facility] [address] [place], [address] Bilirubin [Mass/Vol] 0.35 mg/dL Normal 0.00-1.30 [facility] Comment on above: Performed By: #### L 100.0100, L500.4050, L501.2450 ####[facility] [address] [place], [address] BUN/CRE 9.5 RATIO Low 10-20 [facility] Comment on above: Performed By: #### L 100.0100, L500.4050, L501.2450 ####[facility] [address] [place], [address] Calcium [Mass/Vol] 11.5 mg/dL High 7.6-11.0 [facility] Comment on above: Performed By: #### L 100.0100, L500.4050, L501.2450 ####[facility] [address] [place], [address] Chloride [Moles/Vol] 102 mmol/L Normal 98-108 [facility] Comment on above: Performed By: #### L 100.0100, L500.4050, L501.2450 ####[facility] [address] [place], [address] CO2 [Moles/Vol] 18.1 mmol/L Low 21.0-32.0 [facility] Comment on above: Performed By: #### L 100.0100, L500.4050, L501.2450 ####[facility] [address] [place], [address] Creatinine [Mass/Vol] 1.73 mg/dL High 0.70-1.20 [facility] Comment on above: Performed By: #### L 100.0100, L500.4050, L501.2450 ####[facility] [address] [place], [address] ECRCL 43.37 ml/min Low 50-250 [facility] Comment on above: Performed By: #### L 100.0100, L500.4050, L501.2450 ####[facility] [address] [place], [address] GAP 22 High 5-15 [facility] Comment on above: Performed By: #### L 100.0100, L500.4050, L501.2450 ####[facility] [address] [place], [address] GFR/1.73 sq M.predicted among non-blacks MDRD (S/P/Bld) [Vol rate/Area] 43 mL/min/{1.73_m2} Low >60 [facility] Comment on above: Result Comment: mL/m in/1.73m2 CKD-EPI Creatinine Equation (2020) Performed By: #### L 100.0100, L500.4050, L501.2450 ####[facility] [address] [place], [address] Globulin (S) [Mass/Vol] 3.1 g/dL Normal 2.2-4.2 [facility] Comment on above: Performed By: #### L 100.0100, L500.4050, L501.2450 ####[facility] [address] [place], [address] Glucose [Mass/Vol] 149 mg/dL High 70-99 [facility] Comment on above: Performed By: #### L 100.0100, L500.4050, L501.2450 ####[facility] [address] [place], [address] Potassium [Moles/Vol] 3.7 mmol/L Normal 3.3-5.1 [facility] Comment on above: Performed By: #### L 100.0100, L500.4050, L501.2450 ####[facility] [address] [place], [address] Sodium [Moles/Vol] 143 mmol/L Normal 133-145 [facility] Comment on above: Performed By: #### L 100.0100, L500.4050, L501.2450 ####[facility] [address] [place], [address] T PROT 7.8 g/dL Normal 5.9-8.4 [facility] Comment on above: Performed By: #### L 100.0100, L500.4050, L501.2450 ####[facility] [address] [place], [address] Urea nitrogen [Mass/Vol] 16 mg/dL Normal 4-19 [facility] Comment on above: Performed By: #### L 100.0100, L500.4050, L501.2450 ####[facility] [address] [place], [address] Creatinine [Mass/Vol]Ordered By: Romero Harrington on 12-04-2024 Serum creatinine measurement (mass/volume) 1.73 mg/dL High 0.70-1.20 [facility] Emergency Department Summary on 12-04-2024 Emergency Department Summary Normal [facility] Eosinophil percentageOrdered By: Romero Harrington on 12-04-2024 Eosinophil percentage 0.3 % 0-5 [facility] Erythrocyte distribution wid th (RBC) [Entitic vol]Ordered By: Romero Harrington on 12-04-2024 Erythrocyte distribution width standard deviation 46.0 fl High 35.1-43.9 [facility] Erythrocyte distribution wid th (RBC) [Ratio]Ordered By: Romero Harrington on 12-04-2024 Erythrocyte distribution width ratio 15.2 % High 11.6-14.6 [facility] Estimation of creatinine deion aranceOrdered By: Romero Harrington on 12-04-2024 Estimation of creatinine clearance 43.37 ml/min Low 50-250 [facility] GFR/1.73 sq M.predicted raegan g non-blacks MDRD (S/P/Bld) [Vol rate/Area]Ordered By: Romero Harrington on 12-04-2024 Glomerular filtration rate (GFR) estimation/1.73 sq m using serum, plasma, or whole b 43 Low >60 [facility] Glucose [Mass/Vol]Ordered By : Romero Harrington on 12-04-2024 Serum glucose measurement (mass/volume) 149 mg/dL High 70-99 [facility] Hematocrit Auto (Bld) [Volum e fraction]Ordered By: Romero Harrington on 12-04-2024 Automated blood hematocrit (percentage) 32.7 % Low 40-54 [facility] Hemoglobin measurementOrdere d By: Romero Harrington on 12-04-2024 Hemoglobin measurement 10.9 g/dL Low 13.0-16.5 [facility] Immature granulocytes/100 WB C Auto (Bld)Ordered By: Romero Harrington on 12-04-2024 Automated immature granulocyte percentage 0.800 % 0.0-0.9 [facility] Lipaseon 12-04-2024 Lipase [Catalytic activity/Vol] 26 U/L Normal 13-75 [facility] Comment on above: Result Comment: Edilberto conn note:LIPASE revised reference range effective 23.New Lipase methodology. Expected to produce lower valuesthan the previous assay method.NEW Reference Range: 13 - 75 U/L Performed By: #### L 100.0100, L500.4050, L501.2450 ####[facility] [address] [place], [address] Lipase measurementOrdered By : Romero Harrington on 12-04-2024 Lipase measurement 26 U/L 13-75 [facility] Lymphocytes Auto (Unsp spec) [#/Vol]Ordered By: Romero Harrington on 12-04-2024 Absolute lymphocyte count 0.65 X10^3/uL Low 0.83-4.51 [facility] Lymphocytes/100 WBC Auto (Un sp spec)Ordered By: Romero Harrington on 12-04-2024 Automated lymphocyte count as percentage of total leukocytes 3.2 % Low 19-41 [facility] MCV (RBC) [Entitic vol]Order ed By: Romero Harrington on 12-04-2024 MCV (mean corpuscular volume) determination 82.2 fL 80-94 [facility] Mean corpuscular hemoglobin (MCH) determinationOrdered By: Romero Harrington on 12-04-2024 Mean corpuscular hemoglobin (MCH) determination 27.4 pg 27.0-32.0 [facility] Mean corpuscular hemoglobin concentration (MCHC) determinationOrdered By: Romero Harrington on 12-04-2024 Mean corpuscular hemoglobin concentration (MCHC) determination 33.3 g/dL 32-36 [facility] Mean platelet volume determi nationOrdered By: Romero Harrington on 12-04-2024 Mean platelet volume determination 9.7 fl 6.2-12.0 [facility] Monocyte percentageOrdered B y: Romero Harrington on 12-04-2024 Monocyte percentage 7.1 % 0-10 [facility] Neutrophil percentageOrdered By: Romero Harrington on 12-04-2024 Neutrophil percentage 88.5 % High 47-70 [facility] No Panel InformationOrdered By: Romero Harrington on 12-04-2024 30 U/L <38 [facility] Nucleated red blood cell per centageOrdered By: Romero Harrington on 12-04-2024 Nucleated red blood cell percentage 0 % 0-5 [facility] Platelet countOrdered By: Butch Harrington on 12-04-2024 Platelet count 523 K/mm3 High 150-450 [facility] Potassium (Unsp spec) [Mass/ Vol]Ordered By: Romero Harrington on 12-04-2024 Potassium measurement (mass/volume) 3.7 mmol/L 3.3-5.1 [facility] RBC Auto (Bld) [#/Vol]Ordere d By: Romero Harrington on 12-04-2024 Automated blood erythrocyte count 3.98 M/mm3 Low 4.6-6.2 [facility] Serum globulin measurementOr dered By: Romero Harrington on 12-04-2024 Serum globulin measurement 3.1 g/dL 2.2-4.2 [facility] Sodium levelOrdered By: Romero Harrington on 12-04-2024 Sodium level 143 mmol/L 133-145 [facility] Total proteinOrdered By: Duncan Harrington on 12-04-2024 Total protein 7.8 g/dL 5.9-8.4 [facility] Urea nitrogen [Mass/Vol]Orde red By: Romero Harrington on 12-04-2024 Serum or plasma urea nitrogen measurement (mass/volume) 16 mg/dL 4-19 [facility] White blood cell (WBC) count Ordered By: Romero Harrington on 12-04-2024 White blood cell (WBC) count 20.2 K/mm3 High 4.4-11.0 [facility] Basic Metabolic Profile (BMP )on 11-20-2024 BUN Normal 7-18 [facility] Comment on above: Result Comment: Canc elled via OM: Order cancelled - Patient discharged Performed By: #### L 500.2500, L100.0100 ####[facility] [address] [place], [address] BUN/CRE Normal 10-20 [facility] Comment on above: Result Comment: Canc elled via OM: Order cancelled - Patient discharged Performed By: #### L 500.2500, L100.0100 ####[facility] [address] [place], [address] CA,Total Normal 8.5-10.1 [facility] Comment on above: Result Comment: Canc elled via OM: Order cancelled - Patient discharged Performed By: #### L 500.2500, L100.0100 ####[facility] [address] [place], [address] CL Normal 98-107 [facility] Comment on above: Result Comment: Canc elled via OM: Order cancelled - Patient discharged Performed By: #### L 500.2500, L100.0100 ####[facility] [address] [place], [address] CO2 Normal 21.0-32.0 [facility] Comment on above: Result Comment: Canc elled via OM: Order cancelled - Patient discharged Performed By: #### L 500.2500, L100.0100 ####[facility] [address] [place], [address] CREAT,SERUM Normal 0.70-1.30 [facility] Comment on above: Result Comment: Canc elled via OM: Order cancelled - Patient discharged Performed By: #### L 500.2500, L100.0100 ####[facility] [address] [place], [address] EST GFR Normal >60 [facility] Comment on above: Result Comment: Canc elled via OM: Order cancelled - Patient discharged Performed By: #### L 500.2500, L100.0100 ####[facility] [address] [place], [address] EST GFR - AA Normal >60 [facility] Comment on above: Result Comment: Canc elled via OM: Order cancelled - Patient discharged Performed By: #### L 500.2500, L100.0100 ####[facility] [address] [place], [address] GAP Normal 5-15 [facility] Comment on above: Result Comment: Canc elled via OM: Order cancelled - Patient discharged Performed By: #### L 500.2500, L100.0100 ####[facility] [address] [place], [address] GLU Normal 74-106 [facility] Comment on above: Result Comment: Canc elled via OM: Order cancelled - Patient discharged Performed By: #### L 500.2500, L100.0100 ####[facility] [address] [place], [address] Potassium Normal 3.5-5.1 [facility] Comment on above: Result Comment: Canc elled via OM: Order cancelled - Patient discharged Performed By: #### L 500.2500, L100.0100 ####[facility] [address] [place], [address] Basic Metabolic Profile (BMP) Normal 136-145 [facility] Comment on above: Result Comment: Canc elled via OM: Order cancelled - Patient discharged Performed By: #### L 500.2500, L100.0100 ####[facility] [address] [place], [address] CBC W/Diff, Automatedon 02- Absolute Neut Normal 2.0-7.7 [facility] Comment on above: Result Comment: Canc elled via OM: Order cancelled - Patient discharged Performed By: #### L 500.2500, L100.0100 ####[facility] [address] [place], [address] HCT Normal 40-54 [facility] Comment on above: Result Comment: Canc elled via OM: Order cancelled - Patient discharged Performed By: #### L 500.2500, L100.0100 ####[facility] [address] [place], [address] HGB Normal 13.0-16.5 [facility] Comment on above: Result Comment: Canc elled via OM: Order cancelled - Patient discharged Performed By: #### L 500.2500, L100.0100 ####[facility] [address] [place], [address] MCH Normal 27.0-32.0 [facility] Comment on above: Result Comment: Canc elled via OM: Order cancelled - Patient discharged Performed By: #### L 500.2500, L100.0100 ####[facility] [address] [place], [address] MCHC Normal 32-36 [facility] Comment on above: Result Comment: Canc elled via OM: Order cancelled - Patient discharged Performed By: #### L 500.2500, L100.0100 ####[facility] [address] [place], [address] MCV Normal 80-94 [facility] Comment on above: Result Comment: Canc elled via OM: Order cancelled - Patient discharged Performed By: #### L 500.2500, L100.0100 ####[facility] [address] [place], [address] NEUT% Normal 47-70 [facility] Comment on above: Result Comment: Canc elled via OM: Order cancelled - Patient discharged Performed By: #### L 500.2500, L100.0100 ####[facility] [address] [place], [address] PLT Normal 150-450 [facility] Comment on above: Result Comment: Canc elled via OM: Order cancelled - Patient discharged Performed By: #### L 500.2500, L100.0100 ####[facility] [address] [place], [address] RBC Normal 4.6-6.2 [facility] Comment on above: Result Comment: Canc elled via OM: Order cancelled - Patient discharged Performed By: #### L 500.2500, L100.0100 ####[facility] [address] [place], [address] RDW CV Normal 11.6-14.6 [facility] Comment on above: Result Comment: Canc elled via OM: Order cancelled - Patient discharged Performed By: #### L 500.2500, L100.0100 ####[facility] [address] [place], [address] RDW SD Normal 35.1-43.9 [facility] Comment on above: Result Comment: Canc elled via OM: Order cancelled - Patient discharged Performed By: #### L 500.2500, L100.0100 ####[facility] [address] [place], [address] WBC Normal 4.4-11.0 [facility] Comment on above: Result Comment: Canc elled via OM: Order cancelled - Patient discharged Performed By: #### L 500.2500, L100.0100 ####[facility] [address] [place], [address] Basic Metabolic Profile (BMP )on 11-19-2024 BUN Normal 7-18 [facility] Comment on above: Result Comment: Canc elled via OM: Order cancelled - Patient discharged Performed By: #### L 500.2500, L100.0100 ####[facility] [address] [place], [address] BUN/CRE Normal 10-20 [facility] Comment on above: Result Comment: Canc elled via OM: Order cancelled - Patient discharged Performed By: #### L 500.2500, L100.0100 ####[facility] [address] [place], [address] CA,Total Normal 8.5-10.1 [facility] Comment on above: Result Comment: Canc elled via OM: Order cancelled - Patient discharged Performed By: #### L 500.2500, L100.0100 ####[facility] [address] [place], [address] CL Normal 98-107 [facility] Comment on above: Result Comment: Canc elled via OM: Order cancelled - Patient discharged Performed By: #### L 500.2500, L100.0100 ####[facility] [address] [place], [address] CO2 Normal 21.0-32.0 [facility] Comment on above: Result Comment: Canc elled via OM: Order cancelled - Patient discharged Performed By: #### L 500.2500, L100.0100 ####[facility] [address] [place], [address] CREAT,SERUM Normal 0.70-1.30 [facility] Comment on above: Result Comment: Canc elled via OM: Order cancelled - Patient discharged Performed By: #### L 500.2500, L100.0100 ####[facility] [address] [place], [address] EST GFR Normal >60 [facility] Comment on above: Result Comment: Canc elled via OM: Order cancelled - Patient discharged Performed By: #### L 500.2500, L100.0100 ####[facility] [address] [place], [address] EST GFR - AA Normal >60 [facility] Comment on above: Result Comment: Canc elled via OM: Order cancelled - Patient discharged Performed By: #### L 500.2500, L100.0100 ####[facility] [address] [place], [address] GAP Normal 5-15 [facility] Comment on above: Result Comment: Canc elled via OM: Order cancelled - Patient discharged Performed By: #### L 500.2500, L100.0100 ####[facility] [address] [place], [address] GLU Normal 74-106 [facility] Comment on above: Result Comment: Canc elled via OM: Order cancelled - Patient discharged Performed By: #### L 500.2500, L100.0100 ####[facility] [address] [place], [address] Potassium Normal 3.5-5.1 [facility] Comment on above: Result Comment: Canc elled via OM: Order cancelled - Patient discharged Performed By: #### L 500.2500, L100.0100 ####[facility] [address] [place], [address] Basic Metabolic Profile (BMP) Normal 136-145 [facility] Comment on above: Result Comment: Canc elled via OM: Order cancelled - Patient discharged Performed By: #### L 500.2500, L100.0100 ####[facility] [address] [place], [address] CBC W/Diff, Automatedon - Absolute Neut Normal 2.0-7.7 [facility] Comment on above: Result Comment: Canc elled via OM: Order cancelled - Patient discharged Performed By: #### L 500.2500, L100.0100 ####[facility] [address] [place], [address] HCT Normal 40-54 [facility] Comment on above: Result Comment: Canc elled via OM: Order cancelled - Patient discharged Performed By: #### L 500.2500, L100.0100 ####[facility] [address] [place], [address] HGB Normal 13.0-16.5 [facility] Comment on above: Result Comment: Canc elled via OM: Order cancelled - Patient discharged Performed By: #### L 500.2500, L100.0100 ####[facility] [address] [place], [address] MCH Normal 27.0-32.0 [facility] Comment on above: Result Comment: Canc elled via OM: Order cancelled - Patient discharged Performed By: #### L 500.2500, L100.0100 ####[facility] [address] [place], [address] MCHC Normal 32-36 [facility] Comment on above: Result Comment: Canc elled via OM: Order cancelled - Patient discharged Performed By: #### L 500.2500, L100.0100 ####[facility] [address] [place], [address] MCV Normal 80-94 [facility] Comment on above: Result Comment: Canc elled via OM: Order cancelled - Patient discharged Performed By: #### L 500.2500, L100.0100 ####[facility] [address] [place], [address] NEUT% Normal 47-70 [facility] Comment on above: Result Comment: Canc elled via OM: Order cancelled - Patient discharged Performed By: #### L 500.2500, L100.0100 ####[facility] [address] [place], [address] PLT Normal 150-450 [facility] Comment on above: Result Comment: Canc elled via OM: Order cancelled - Patient discharged Performed By: #### L 500.2500, L100.0100 ####[facility] [address] [place], [address] RBC Normal 4.6-6.2 [facility] Comment on above: Result Comment: Canc elled via OM: Order cancelled - Patient discharged Performed By: #### L 500.2500, L100.0100 ####[facility] [address] [place], [address] RDW CV Normal 11.6-14.6 [facility] Comment on above: Result Comment: Canc elled via OM: Order cancelled - Patient discharged Performed By: #### L 500.2500, L100.0100 ####[facility] [address] [place], [address] RDW SD Normal 35.1-43.9 [facility] Comment on above: Result Comment: Canc elled via OM: Order cancelled - Patient discharged Performed By: #### L 500.2500, L100.0100 ####[facility] [address] [place], [address] WBC Normal 4.4-11.0 [facility] Comment on above: Result Comment: Canc elled via OM: Order cancelled - Patient discharged Performed By: #### L 500.2500, L100.0100 ####[facility] [address] [place], [address] Basic Metabolic Profile (BMP )on 11-18-2024 BUN Normal 7-18 [facility] Comment on above: Result Comment: Canc elled via OM: Order cancelled - Patient discharged Performed By: #### L 100.0100, L500.2500 ####[facility] [address] [place], [address] BUN/CRE Normal 10-20 [facility] Comment on above: Result Comment: Canc elled via OM: Order cancelled - Patient discharged Performed By: #### L 100.0100, L500.2500 ####[facility] [address] [place], [address] CA,Total Normal 8.5-10.1 [facility] Comment on above: Result Comment: Canc elled via OM: Order cancelled - Patient discharged Performed By: #### L 100.0100, L500.2500 ####[facility] [address] [place], [address] CL Normal 98-107 [facility] Comment on above: Result Comment: Canc elled via OM: Order cancelled - Patient discharged Performed By: #### L 100.0100, L500.2500 ####[facility] [address] [place], [address] CO2 Normal 21.0-32.0 [facility] Comment on above: Result Comment: Canc elled via OM: Order cancelled - Patient discharged Performed By: #### L 100.0100, L500.2500 ####[facility] [address] [place], [address] CREAT,SERUM Normal 0.70-1.30 [facility] Comment on above: Result Comment: Canc elled via OM: Order cancelled - Patient discharged Performed By: #### L 100.0100, L500.2500 ####[facility] [address] [place], [address] EST GFR Normal >60 [facility] Comment on above: Result Comment: Canc elled via OM: Order cancelled - Patient discharged Performed By: #### L 100.0100, L500.2500 ####[facility] [address] [place], [address] EST GFR - AA Normal >60 [facility] Comment on above: Result Comment: Canc elled via OM: Order cancelled - Patient discharged Performed By: #### L 100.0100, L500.2500 ####[facility] [address] [place], [address] GAP Normal 5-15 [facility] Comment on above: Result Comment: Canc elled via OM: Order cancelled - Patient discharged Performed By: #### L 100.0100, L500.2500 ####[facility] [address] [place], [address] GLU Normal 74-106 [facility] Comment on above: Result Comment: Canc elled via OM: Order cancelled - Patient discharged Performed By: #### L 100.0100, L500.2500 ####[facility] [address] [place], [address] Potassium Normal 3.5-5.1 [facility] Comment on above: Result Comment: Canc elled via OM: Order cancelled - Patient discharged Performed By: #### L 100.0100, L500.2500 ####[facility] [address] [place], [address] Basic Metabolic Profile (BMP) Normal 136-145 [facility] Comment on above: Result Comment: Canc elled via OM: Order cancelled - Patient discharged Performed By: #### L 100.0100, L500.2500 ####[facility] [address] [place], [address] CBC W/Diff, Automatedon 02-2 Absolute Neut Normal 2.0-7.7 [facility] Comment on above: Result Comment: Canc elled via OM: Order cancelled - Patient discharged Performed By: #### L 100.0100, L500.2500 ####[facility] [address] [place], [address] HCT Normal 40-54 [facility] Comment on above: Result Comment: Canc elled via OM: Order cancelled - Patient discharged Performed By: #### L 100.0100, L500.2500 ####[facility] [address] [place], [address] HGB Normal 13.0-16.5 [facility] Comment on above: Result Comment: Canc elled via OM: Order cancelled - Patient discharged Performed By: #### L 100.0100, L500.2500 ####[facility] [address] [place], [address] MCH Normal 27.0-32.0 [facility] Comment on above: Result Comment: Canc elled via OM: Order cancelled - Patient discharged Performed By: #### L 100.0100, L500.2500 ####[facility] [address] [place], [address] MCHC Normal 32-36 [facility] Comment on above: Result Comment: Canc elled via OM: Order cancelled - Patient discharged Performed By: #### L 100.0100, L500.2500 ####[facility] [address] [place], [address] MCV Normal 80-94 [facility] Comment on above: Result Comment: Canc elled via OM: Order cancelled - Patient discharged Performed By: #### L 100.0100, L500.2500 ####[facility] [address] [place], [address] NEUT% Normal 47-70 [facility] Comment on above: Result Comment: Canc elled via OM: Order cancelled - Patient discharged Performed By: #### L 100.0100, L500.2500 ####[facility] [address] [place], [address] PLT Normal 150-450 [facility] Comment on above: Result Comment: Canc elled via OM: Order cancelled - Patient discharged Performed By: #### L 100.0100, L500.2500 ####[facility] [address] [place], [address] RBC Normal 4.6-6.2 [facility] Comment on above: Result Comment: Canc elled via OM: Order cancelled - Patient discharged Performed By: #### L 100.0100, L500.2500 ####[facility] [address] [place], [address] RDW CV Normal 11.6-14.6 [facility] Comment on above: Result Comment: Canc elled via OM: Order cancelled - Patient discharged Performed By: #### L 100.0100, L500.2500 ####[facility] [address] [place], [address] RDW SD Normal 35.1-43.9 [facility] Comment on above: Result Comment: Canc elled via OM: Order cancelled - Patient discharged Performed By: #### L 100.0100, L500.2500 ####[facility] [address] [place], [address] WBC Normal 4.4-11.0 [facility] Comment on above: Result Comment: Canc elled via OM: Order cancelled - Patient discharged Performed By: #### L 100.0100, L500.2500 ####[facility] [address] [place], [address] Basic Metabolic Profile (BMP )on 11-17-2024 BUN Normal 7-18 [facility] Comment on above: Result Comment: Canc elled via OM: Order cancelled - Patient discharged Performed By: #### L 100.0100, L500.2500 ####[facility] [address] [place], [address] BUN/CRE Normal 10-20 [facility] Comment on above: Result Comment: Canc elled via OM: Order cancelled - Patient discharged Performed By: #### L 100.0100, L500.2500 ####[facility] [address] [place], [address] CA,Total Normal 8.5-10.1 [facility] Comment on above: Result Comment: Canc elled via OM: Order cancelled - Patient discharged Performed By: #### L 100.0100, L500.2500 ####[facility] [address] [place], [address] CL Normal 98-107 [facility] Comment on above: Result Comment: Canc elled via OM: Order cancelled - Patient discharged Performed By: #### L 100.0100, L500.2500 ####[facility] [address] [place], [address] CO2 Normal 21.0-32.0 [facility] Comment on above: Result Comment: Canc elled via OM: Order cancelled - Patient discharged Performed By: #### L 100.0100, L500.2500 ####[facility] [address] [place], [address] CREAT,SERUM Normal 0.70-1.30 [facility] Comment on above: Result Comment: Canc elled via OM: Order cancelled - Patient discharged Performed By: #### L 100.0100, L500.2500 ####[facility] [address] [place], [address] EST GFR Normal >60 [facility] Comment on above: Result Comment: Canc elled via OM: Order cancelled - Patient discharged Performed By: #### L 100.0100, L500.2500 ####[facility] [address] [place], [address] EST GFR - AA Normal >60 [facility] Comment on above: Result Comment: Canc elled via OM: Order cancelled - Patient discharged Performed By: #### L 100.0100, L500.2500 ####[facility] [address] [place], [address] GAP Normal 5-15 [facility] Comment on above: Result Comment: Canc elled via OM: Order cancelled - Patient discharged Performed By: #### L 100.0100, L500.2500 ####[facility] [address] [place], [address] GLU Normal 74-106 [facility] Comment on above: Result Comment: Canc elled via OM: Order cancelled - Patient discharged Performed By: #### L 100.0100, L500.2500 ####[facility] [address] [place], [address] Potassium Normal 3.5-5.1 [facility] Comment on above: Result Comment: Canc elled via OM: Order cancelled - Patient discharged Performed By: #### L 100.0100, L500.2500 ####[facility] [address] [place], [address] Basic Metabolic Profile (BMP) Normal 136-145 [facility] Comment on above: Result Comment: Canc elled via OM: Order cancelled - Patient discharged Performed By: #### L 100.0100, L500.2500 ####[facility] [address] [place], [address] CBC W/Diff, Automatedon 02-2 Absolute Neut Normal 2.0-7.7 [facility] Comment on above: Result Comment: Canc elled via OM: Order cancelled - Patient discharged Performed By: #### L 100.0100, L500.2500 ####[facility] [address] [place], [address] HCT Normal 40-54 [facility] Comment on above: Result Comment: Canc elled via OM: Order cancelled - Patient discharged Performed By: #### L 100.0100, L500.2500 ####[facility] [address] [place], [address] HGB Normal 13.0-16.5 [facility] Comment on above: Result Comment: Canc elled via OM: Order cancelled - Patient discharged Performed By: #### L 100.0100, L500.2500 ####[facility] [address] [place], [address] MCH Normal 27.0-32.0 [facility] Comment on above: Result Comment: Canc elled via OM: Order cancelled - Patient discharged Performed By: #### L 100.0100, L500.2500 ####[facility] [address] [place], [address] MCHC Normal 32-36 [facility] Comment on above: Result Comment: Canc elled via OM: Order cancelled - Patient discharged Performed By: #### L 100.0100, L500.2500 ####[facility] [address] [place], [address] MCV Normal 80-94 [facility] Comment on above: Result Comment: Canc elled via OM: Order cancelled - Patient discharged Performed By: #### L 100.0100, L500.2500 ####[facility] [address] [place], [address] NEUT% Normal 47-70 [facility] Comment on above: Result Comment: Canc elled via OM: Order cancelled - Patient discharged Performed By: #### L 100.0100, L500.2500 ####[facility] [address] [place], [address] PLT Normal 150-450 [facility] Comment on above: Result Comment: Canc elled via OM: Order cancelled - Patient discharged Performed By: #### L 100.0100, L500.2500 ####[facility] [address] [place], [address] RBC Normal 4.6-6.2 [facility] Comment on above: Result Comment: Canc elled via OM: Order cancelled - Patient discharged Performed By: #### L 100.0100, L500.2500 ####[facility] [address] [place], [address] RDW CV Normal 11.6-14.6 [facility] Comment on above: Result Comment: Canc elled via OM: Order cancelled - Patient discharged Performed By: #### L 100.0100, L500.2500 ####[facility] [address] [place], [address] RDW SD Normal 35.1-43.9 [facility] Comment on above: Result Comment: Canc elled via OM: Order cancelled - Patient discharged Performed By: #### L 100.0100, L500.2500 ####[facility] [address] [place], [address] WBC Normal 4.4-11.0 [facility] Comment on above: Result Comment: Canc elled via OM: Order cancelled - Patient discharged Performed By: #### L 100.0100, L500.2500 ####[facility] [address] [place], [address] Basic Metabolic Profile (BMP )on 11-16-2024 BUN Normal 7-18 [facility] Comment on above: Result Comment: Canc elled via OM: Order cancelled - Patient discharged Performed By: #### L 100.0100, L500.2500 ####[facility] [address] [place], [address] BUN/CRE Normal 10-20 [facility] Comment on above: Result Comment: Canc elled via OM: Order cancelled - Patient discharged Performed By: #### L 100.0100, L500.2500 ####[facility] [address] [place], [address] CA,Total Normal 8.5-10.1 [facility] Comment on above: Result Comment: Canc elled via OM: Order cancelled - Patient discharged Performed By: #### L 100.0100, L500.2500 ####[facility] [address] [place], [address] CL Normal 98-107 [facility] Comment on above: Result Comment: Canc elled via OM: Order cancelled - Patient discharged Performed By: #### L 100.0100, L500.2500 ####[facility] [address] [place], [address] CO2 Normal 21.0-32.0 [facility] Comment on above: Result Comment: Canc elled via OM: Order cancelled - Patient discharged Performed By: #### L 100.0100, L500.2500 ####[facility] [address] [place], [address] CREAT,SERUM Normal 0.70-1.30 [facility] Comment on above: Result Comment: Canc elled via OM: Order cancelled - Patient discharged Performed By: #### L 100.0100, L500.2500 ####[facility] [address] [place], [address] EST GFR Normal >60 [facility] Comment on above: Result Comment: Canc elled via OM: Order cancelled - Patient discharged Performed By: #### L 100.0100, L500.2500 ####[facility] [address] [place], [address] EST GFR - AA Normal >60 [facility] Comment on above: Result Comment: Canc elled via OM: Order cancelled - Patient discharged Performed By: #### L 100.0100, L500.2500 ####[facility] [address] [place], [address] GAP Normal 5-15 [facility] Comment on above: Result Comment: Canc elled via OM: Order cancelled - Patient discharged Performed By: #### L 100.0100, L500.2500 ####[facility] [address] [place], [address] GLU Normal 74-106 [facility] Comment on above: Result Comment: Canc elled via OM: Order cancelled - Patient discharged Performed By: #### L 100.0100, L500.2500 ####[facility] [address] [place], [address] Potassium Normal 3.5-5.1 [facility] Comment on above: Result Comment: Canc elled via OM: Order cancelled - Patient discharged Performed By: #### L 100.0100, L500.2500 ####[facility] [address] [place], [address] Basic Metabolic Profile (BMP) Normal 136-145 [facility] Comment on above: Result Comment: Canc elled via OM: Order cancelled - Patient discharged Performed By: #### L 100.0100, L500.2500 ####[facility] [address] [place], [address] CBC W/Diff, Automatedon 02-2 Absolute Neut Normal 2.0-7.7 [facility] Comment on above: Result Comment: Canc elled via OM: Order cancelled - Patient discharged Performed By: #### L 100.0100, L500.2500 ####[facility] [address] [place], [address] HCT Normal 40-54 [facility] Comment on above: Result Comment: Canc elled via OM: Order cancelled - Patient discharged Performed By: #### L 100.0100, L500.2500 ####[facility] [address] [place], [address] HGB Normal 13.0-16.5 [facility] Comment on above: Result Comment: Canc elled via OM: Order cancelled - Patient discharged Performed By: #### L 100.0100, L500.2500 ####[facility] [address] [place], [address] MCH Normal 27.0-32.0 [facility] Comment on above: Result Comment: Canc elled via OM: Order cancelled - Patient discharged Performed By: #### L 100.0100, L500.2500 ####[facility] [address] [place], [address] MCHC Normal 32-36 [facility] Comment on above: Result Comment: Canc elled via OM: Order cancelled - Patient discharged Performed By: #### L 100.0100, L500.2500 ####[facility] [address] [place], [address] MCV Normal 80-94 [facility] Comment on above: Result Comment: Canc elled via OM: Order cancelled - Patient discharged Performed By: #### L 100.0100, L500.2500 ####[facility] [address] [place], [address] NEUT% Normal 47-70 [facility] Comment on above: Result Comment: Canc elled via OM: Order cancelled - Patient discharged Performed By: #### L 100.0100, L500.2500 ####[facility] [address] [place], [address] PLT Normal 150-450 [facility] Comment on above: Result Comment: Canc elled via OM: Order cancelled - Patient discharged Performed By: #### L 100.0100, L500.2500 ####[facility] [address] [place], [address] RBC Normal 4.6-6.2 [facility] Comment on above: Result Comment: Canc elled via OM: Order cancelled - Patient discharged Performed By: #### L 100.0100, L500.2500 ####[facility] [address] [place], [address] RDW CV Normal 11.6-14.6 [facility] Comment on above: Result Comment: Canc elled via OM: Order cancelled - Patient discharged Performed By: #### L 100.0100, L500.2500 ####[facility] [address] [place], [address] RDW SD Normal 35.1-43.9 [facility] Comment on above: Result Comment: Canc elled via OM: Order cancelled - Patient discharged Performed By: #### L 100.0100, L500.2500 ####[facility] [address] [place], [address] WBC Normal 4.4-11.0 [facility] Comment on above: Result Comment: Canc elled via OM: Order cancelled - Patient discharged Performed By: #### L 100.0100, L500.2500 ####[facility] [address] [place], [address] Basic Metabolic Profile (BMP )on 11-15-2024 BUN Normal 7-18 [facility] Comment on above: Result Comment: Canc elled via OM: Order cancelled - Patient discharged Performed By: #### L 100.0100, L500.2500 ####[facility] [address] [place], [address] BUN/CRE Normal 10-20 [facility] Comment on above: Result Comment: Canc elled via OM: Order cancelled - Patient discharged Performed By: #### L 100.0100, L500.2500 ####[facility] [address] [place], [address] CA,Total Normal 8.5-10.1 [facility] Comment on above: Result Comment: Canc elled via OM: Order cancelled - Patient discharged Performed By: #### L 100.0100, L500.2500 ####[facility] [address] [place], [address] CL Normal 98-107 [facility] Comment on above: Result Comment: Canc elled via OM: Order cancelled - Patient discharged Performed By: #### L 100.0100, L500.2500 ####[facility] [address] [place], [address] CO2 Normal 21.0-32.0 [facility] Comment on above: Result Comment: Canc elled via OM: Order cancelled - Patient discharged Performed By: #### L 100.0100, L500.2500 ####[facility] [address] [place], [address] CREAT,SERUM Normal 0.70-1.30 [facility] Comment on above: Result Comment: Canc elled via OM: Order cancelled - Patient discharged Performed By: #### L 100.0100, L500.2500 ####[facility] [address] [place], [address] EST GFR Normal >60 [facility] Comment on above: Result Comment: Canc elled via OM: Order cancelled - Patient discharged Performed By: #### L 100.0100, L500.2500 ####[facility] [address] [place], [address] EST GFR - AA Normal >60 [facility] Comment on above: Result Comment: Canc elled via OM: Order cancelled - Patient discharged Performed By: #### L 100.0100, L500.2500 ####[facility] [address] [place], [address] GAP Normal 5-15 [facility] Comment on above: Result Comment: Canc elled via OM: Order cancelled - Patient discharged Performed By: #### L 100.0100, L500.2500 ####[facility] [address] [place], [address] GLU Normal 74-106 [facility] Comment on above: Result Comment: Canc elled via OM: Order cancelled - Patient discharged Performed By: #### L 100.0100, L500.2500 ####[facility] [address] [place], [address] Potassium Normal 3.5-5.1 [facility] Comment on above: Result Comment: Canc elled via OM: Order cancelled - Patient discharged Performed By: #### L 100.0100, L500.2500 ####[facility] [address] [place], [address] Basic Metabolic Profile (BMP) Normal 136-145 [facility] Comment on above: Result Comment: Canc elled via OM: Order cancelled - Patient discharged Performed By: #### L 100.0100, L500.2500 ####[facility] [address] [place], [address] CBC W/Diff, Automatedon 02- Absolute Neut Normal 2.0-7.7 [facility] Comment on above: Result Comment: Canc elled via OM: Order cancelled - Patient discharged Performed By: #### L 100.0100, L500.2500 ####[facility] [address] [place], [address] HCT Normal 40-54 [facility] Comment on above: Result Comment: Canc elled via OM: Order cancelled - Patient discharged Performed By: #### L 100.0100, L500.2500 ####[facility] [address] [place], [address] HGB Normal 13.0-16.5 [facility] Comment on above: Result Comment: Canc elled via OM: Order cancelled - Patient discharged Performed By: #### L 100.0100, L500.2500 ####[facility] [address] [place], [address] MCH Normal 27.0-32.0 [facility] Comment on above: Result Comment: Canc elled via OM: Order cancelled - Patient discharged Performed By: #### L 100.0100, L500.2500 ####[facility] [address] [place], [address] MCHC Normal 32-36 [facility] Comment on above: Result Comment: Canc elled via OM: Order cancelled - Patient discharged Performed By: #### L 100.0100, L500.2500 ####[facility] [address] [place], [address] MCV Normal 80-94 [facility] Comment on above: Result Comment: Canc elled via OM: Order cancelled - Patient discharged Performed By: #### L 100.0100, L500.2500 ####[facility] [address] [place], [address] NEUT% Normal 47-70 [facility] Comment on above: Result Comment: Canc elled via OM: Order cancelled - Patient discharged Performed By: #### L 100.0100, L500.2500 ####[facility] [address] [place], [address] PLT Normal 150-450 [facility] Comment on above: Result Comment: Canc elled via OM: Order cancelled - Patient discharged Performed By: #### L 100.0100, L500.2500 ####[facility] [address] [place], [address] RBC Normal 4.6-6.2 [facility] Comment on above: Result Comment: Canc elled via OM: Order cancelled - Patient discharged Performed By: #### L 100.0100, L500.2500 ####[facility] [address] [place], [address] RDW CV Normal 11.6-14.6 [facility] Comment on above: Result Comment: Canc elled via OM: Order cancelled - Patient discharged Performed By: #### L 100.0100, L500.2500 ####[facility] [address] [place], [address] RDW SD Normal 35.1-43.9 [facility] Comment on above: Result Comment: Canc elled via OM: Order cancelled - Patient discharged Performed By: #### L 100.0100, L500.2500 ####[facility] [address] [place], [address] WBC Normal 4.4-11.0 [facility] Comment on above: Result Comment: Canc elled via OM: Order cancelled - Patient discharged Performed By: #### L 100.0100, L500.2500 ####[facility] [address] [place], [address] Basic Metabolic Profile (BMP )on 11-14-2024 BUN Normal 7-18 [facility] Comment on above: Result Comment: Canc elled via OM: Order cancelled - Patient discharged Performed By: #### L 100.0100, L500.2500 ####[facility] [address] [place], [address] BUN/CRE Normal 10-20 [facility] Comment on above: Result Comment: Canc elled via OM: Order cancelled - Patient discharged Performed By: #### L 100.0100, L500.2500 ####[facility] [address] [place], [address] CA,Total Normal 8.5-10.1 [facility] Comment on above: Result Comment: Canc elled via OM: Order cancelled - Patient discharged Performed By: #### L 100.0100, L500.2500 ####[facility] [address] [place], [address] CL Normal 98-107 [facility] Comment on above: Result Comment: Canc elled via OM: Order cancelled - Patient discharged Performed By: #### L 100.0100, L500.2500 ####[facility] [address] [place], [address] CO2 Normal 21.0-32.0 [facility] Comment on above: Result Comment: Canc elled via OM: Order cancelled - Patient discharged Performed By: #### L 100.0100, L500.2500 ####[facility] [address] [place], [address] CREAT,SERUM Normal 0.70-1.30 [facility] Comment on above: Result Comment: Canc elled via OM: Order cancelled - Patient discharged Performed By: #### L 100.0100, L500.2500 ####[facility] [address] [place], [address] EST GFR Normal >60 [facility] Comment on above: Result Comment: Canc elled via OM: Order cancelled - Patient discharged Performed By: #### L 100.0100, L500.2500 ####[facility] [address] [place], [address] EST GFR - AA Normal >60 [facility] Comment on above: Result Comment: Canc elled via OM: Order cancelled - Patient discharged Performed By: #### L 100.0100, L500.2500 ####[facility] [address] [place], [address] GAP Normal 5-15 [facility] Comment on above: Result Comment: Canc elled via OM: Order cancelled - Patient discharged Performed By: #### L 100.0100, L500.2500 ####[facility] [address] [place], [address] GLU Normal 74-106 [facility] Comment on above: Result Comment: Canc elled via OM: Order cancelled - Patient discharged Performed By: #### L 100.0100, L500.2500 ####[facility] [address] [place], [address] Potassium Normal 3.5-5.1 [facility] Comment on above: Result Comment: Canc elled via OM: Order cancelled - Patient discharged Performed By: #### L 100.0100, L500.2500 ####[facility] [address] [place], [address] Basic Metabolic Profile (BMP) Normal 136-145 [facility] Comment on above: Result Comment: Canc elled via OM: Order cancelled - Patient discharged Performed By: #### L 100.0100, L500.2500 ####[facility] [address] [place], [address] CBC W/Diff, Automatedon 02-2 Absolute Neut Normal 2.0-7.7 [facility] Comment on above: Result Comment: Canc elled via OM: Order cancelled - Patient discharged Performed By: #### L 100.0100, L500.2500 ####[facility] [address] [place], [address] HCT Normal 40-54 [facility] Comment on above: Result Comment: Canc elled via OM: Order cancelled - Patient discharged Performed By: #### L 100.0100, L500.2500 ####[facility] [address] [place], [address] HGB Normal 13.0-16.5 [facility] Comment on above: Result Comment: Canc elled via OM: Order cancelled - Patient discharged Performed By: #### L 100.0100, L500.2500 ####[facility] [address] [place], [address] MCH Normal 27.0-32.0 [facility] Comment on above: Result Comment: Canc elled via OM: Order cancelled - Patient discharged Performed By: #### L 100.0100, L500.2500 ####[facility] [address] [place], [address] MCHC Normal 32-36 [facility] Comment on above: Result Comment: Canc elled via OM: Order cancelled - Patient discharged Performed By: #### L 100.0100, L500.2500 ####[facility] [address] [place], [address] MCV Normal 80-94 [facility] Comment on above: Result Comment: Canc elled via OM: Order cancelled - Patient discharged Performed By: #### L 100.0100, L500.2500 ####[facility] [address] [place], [address] NEUT% Normal 47-70 [facility] Comment on above: Result Comment: Canc elled via OM: Order cancelled - Patient discharged Performed By: #### L 100.0100, L500.2500 ####[facility] [address] [place], [address] PLT Normal 150-450 [facility] Comment on above: Result Comment: Canc elled via OM: Order cancelled - Patient discharged Performed By: #### L 100.0100, L500.2500 ####[facility] [address] [place], [address] RBC Normal 4.6-6.2 [facility] Comment on above: Result Comment: Canc elled via OM: Order cancelled - Patient discharged Performed By: #### L 100.0100, L500.2500 ####[facility] [address] [place], [address] RDW CV Normal 11.6-14.6 [facility] Comment on above: Result Comment: Canc elled via OM: Order cancelled - Patient discharged Performed By: #### L 100.0100, L500.2500 ####[facility] [address] [place], [address] RDW SD Normal 35.1-43.9 [facility] Comment on above: Result Comment: Canc elled via OM: Order cancelled - Patient discharged Performed By: #### L 100.0100, L500.2500 ####[facility] [address] [place], [address] WBC Normal 4.4-11.0 [facility] Comment on above: Result Comment: Canc elled via OM: Order cancelled - Patient discharged Performed By: #### L 100.0100, L500.2500 ####[facility] [address] [place], [address] Absolute neutrophil countOrd ered By: Aracelis Roberson on 11-13-2024 Absolute neutrophil count 4.0 X10^3/uL 2.0-7.7 [facility] Basic Metabolic Profile (BMP )on 11-13-2024 BUN/CRE 12.3 RATIO Normal 10-20 [facility] Comment on above: Performed By: #### L 100.0100, L500.2500 ####[facility] [address] [place], [address] CA,Total 8.7 mg/dL Normal 8.5-10.1 [facility] Comment on above: Performed By: #### L 100.0100, L500.2500 ####[facility] [address] [place], [address] Chloride [Moles/Vol] 106 mmol/L Normal 98-107 [facility] Comment on above: Performed By: #### L 100.0100, L500.2500 ####[facility] [address] [place], [address] CO2 [Moles/Vol] 23.0 mmol/L Normal 21.0-32.0 [facility] Comment on above: Performed By: #### L 100.0100, L500.2500 ####[facility] [address] [place], [address] Creatinine [Mass/Vol] 0.81 mg/dL Normal 0.70-1.30 [facility] Comment on above: Result Comment: The validity of the calculated GFR GFRAA in patients over70 years has not been determined. Clinical correlation isessential. Performed By: #### L 100.0100, L500.2500 ####[facility] [address] [place], [address] ECRCL 92.63 ml/min Normal [facility] Comment on above: Performed By: #### L 100.0100, L500.2500 ####[facility] [address] [place], [address] EST GFR - AA 122 mL/min Normal >60 [facility] Comment on above: Result Comment: Afri can Welsh GFR Calc Performed By: #### L 100.0100, L500.2500 ####[facility] [address] [place], [address] GAP 6 Normal 5-15 [facility] Comment on above: Performed By: #### L 100.0100, L500.2500 ####[facility] [address] [place], [address] GFR/1.73 sq M.predicted among non-blacks MDRD (S/P/Bld) [Vol rate/Area] 101 mL/min/{1.73_m2} Normal >60 [facility] Comment on above: Result Comment: Non- GFR Calc Performed By: #### L 100.0100, L500.2500 ####[facility] [address] [place], [address] Glucose [Mass/Vol] 86 mg/dL Normal 74-106 [facility] Comment on above: Performed By: #### L 100.0100, L500.2500 ####[facility] [address] [place], [address] Potassium [Moles/Vol] 3.6 mmol/L Normal 3.5-5.1 [facility] Comment on above: Performed By: #### L 100.0100, L500.2500 ####[facility] [address] [place], [address] Sodium [Moles/Vol] 135 mmol/L Low 136-145 [facility] Comment on above: Performed By: #### L 100.0100, L500.2500 ####[facility] [address] [place], [address] Urea nitrogen [Mass/Vol] 10 mg/dL Normal 7-18 [facility] Comment on above: Performed By: #### L 100.0100, L500.2500 ####[facility] [address] [place], [address] Basophil percentageOrdered B y: Aracelis Roberson on 11-13-2024 Basophil percentage 0.5 % 0- [facility] Blood urea nitrogen (BUN)/cr eatinine ratioOrdered By: Aracelis Roberson on 11-13-2024 Blood urea nitrogen (BUN)/creatinine ratio 12.3 RATIO 07-13 [facility] CBC W/Diff, Automatedon - Absolute Lymph 0.84 X10 3/uL Normal 0.83-4.51 [facility] Comment on above: Performed By: #### L 100.0100, L500.2500 ####[facility] [address] [place], [address] Absolute Neut 4.0 X10 3/uL Normal 2.0-7.7 [facility] Comment on above: Performed By: #### L 100.0100, L500.2500 ####[facility] [address] [place], [address] Basophils/100 WBC (Bld) 0.5 % Normal 0-1 [facility] Comment on above: Performed By: #### L 100.0100, L500.2500 ####[facility] [address] [place], [address] Eosinophils/100 WBC (Bld) 2.3 % Normal 0-5 [facility] Comment on above: Performed By: #### L 100.0100, L500.2500 ####[facility] [address] [place], [address] Erythrocyte distribution width (RBC) [Ratio] 15.9 % High 11.6-14.6 [facility] Comment on above: Performed By: #### L 100.0100, L500.2500 ####[facility] [address] [place], [address] Hematocrit (Bld) [Volume fraction] 28.2 % Low 40-54 [facility] Comment on above: Performed By: #### L 100.0100, L500.2500 ####[facility] [address] [place], [address] Hemoglobin (Bld) [Mass/Vol] 9.5 g/dL Low 13.0-16.5 [facility] Comment on above: Performed By: #### L 100.0100, L500.2500 ####[facility] [address] [place], [address] IG% 0.500 Normal 0.0-0.9 [facility] Comment on above: Result Comment: IG% - Immature Granulocytes (promyelocytes, myelocytes andmetamyelocytes) > 1% indicates that a LEFT SHIFT is Present. Performed By: #### L 100.0100, L500.2500 ####[facility] [address] [place], [address] Lymphocytes/100 WBC (Bld) 14.7 % Low 19-41 [facility] Comment on above: Performed By: #### L 100.0100, L500.2500 ####[facility] [address] [place], [address] MCH (RBC) [Entitic mass] 28.9 pg Normal 27.0-32.0 [facility] Comment on above: Performed By: #### L 100.0100, L500.2500 ####[facility] [address] [place], [address] MCHC (RBC) [Mass/Vol] 33.7 g/dL Normal 32-36 [facility] Comment on above: Performed By: #### L 100.0100, L500.2500 ####[facility] [address] [place], [address] MCV (RBC) [Entitic vol] 85.7 fL Normal 80-94 [facility] Comment on above: Performed By: #### L 100.0100, L500.2500 ####[facility] [address] [place], [address] Monocytes/100 WBC (Bld) 12.7 % High 0-10 [facility] Comment on above: Performed By: #### L 100.0100, L500.2500 ####[facility] [address] [place], [address] Neutrophils/100 WBC (Bld) 69.3 % Normal 47-70 [facility] Comment on above: Performed By: #### L 100.0100, L500.2500 ####[facility] [address] [place], [address] Nucleated RBC (Bld) [#/Vol] 0 10*3/uL Normal 0-5 [facility] Comment on above: Performed By: #### L 100.0100, L500.2500 ####[facility] [address] [place], [address] Platelet mean volume (Bld) [Entitic vol] 9.0 fL Normal 6.2-12.0 [facility] Comment on above: Performed By: #### L 100.0100, L500.2500 ####[facility] [address] [place], [address] Platelets (Bld) [#/Vol] 262 10*3/uL Normal 150-450 [facility] Comment on above: Performed By: #### L 100.0100, L500.2500 ####[facility] [address] [place], [address] RBC (Bld) [#/Vol] 3.29 10*6/uL Low 4.6-6.2 [facility] Comment on above: Performed By: #### L 100.0100, L500.2500 ####[facility] [address] [place], [address] RDW SD 50.4 fl High 35.1-43.9 [facility] Comment on above: Performed By: #### L 100.0100, L500.2500 ####[facility] [address] [place], [address] WBC (Bld) [#/Vol] 5.7 10*3/uL Normal 4.4-11.0 [facility] Comment on above: Performed By: #### L 100.0100, L500.2500 ####[facility] [address] [place], [address] Calcium [Mass/Vol]Ordered By : Aracelis Roberson on 11-13-2024 Serum or plasma calcium measurement (mass/volume) 8.7 mg/dL 8.5-10.1 [facility] Carbon dioxide measurementOr dered By: Aracelis Roberson on 11-13-2024 Carbon dioxide measurement 23.0 mmol/L 21.0-32.0 [facility] Chloride measurementOrdered By: Aracelis Roberson on 11-13-2024 Chloride measurement 106 mmol/L 98-107 [facility] Creatinine [Mass/Vol]Ordered By: Aracelis Roberson on 11-13-2024 Serum or plasma creatinine measurement (mass/volume) 0.81 mg/dL 0.70-1.30 [facility] Discharge Instructionon 10-26 Discharge Instruction Normal [facility] EGD Reporton 11-13-2024 EGD Report Normal [facility] Eosinophil percentageOrdered By: Aracelis Roberson on 11-13-2024 Eosinophil percentage 2.3 % 0-5 [facility] Erythrocyte distribution wid th (RBC) [Entitic vol]Ordered By: Aracelis Roberson on 11-13-2024 Erythrocyte distribution width standard deviation 50.4 fl High 35.1-43.9 [facility] Erythrocyte distribution wid th (RBC) [Ratio]Ordered By: Aracelis Roberson on 11-13-2024 Erythrocyte distribution width ratio 15.9 % High 11.6-14.6 [facility] Estimated glomerular filtrat ion rate (GFR) AmericanOrdered By: Aracelis Roberson on 11-13-2024 Estimated glomerular filtration rate (GFR) 122 mL/min >60 [facility] Estimation of creatinine deion aranceOrdered By: Aracelis Roberson on 11-13-2024 Estimation of creatinine clearance 92.63 ml/min [facility] Glomerular filtration rate ( GFR) estimationOrdered By: Aracelis Roberson on 11-13-2024 Glomerular filtration rate (GFR) estimation 101 mL/min >60 [facility] Glucose measurementOrdered B y: Aracelis Roberson on 11-13-2024 Glucose measurement 86 mg/dL 74-106 [facility] Hematocrit Auto (Bld) [Volum e fraction]Ordered By: Aracelis Roberson on 11-13-2024 Automated blood hematocrit (percentage) 28.2 % Low 40-54 [facility] Hemoglobin measurementOrdere d By: Aracelis Roberson on 11-13-2024 Hemoglobin measurement 9.5 g/dL Low 13.0-16.5 [facility] Immature granulocytes/100 WB C Auto (Bld)Ordered By: Aracelis Roberson on 11-13-2024 Automated immature granulocyte percentage 0.500 % 0.0-0.9 [facility] Lymphocytes Auto (Unsp spec) [#/Vol]Ordered By: Aracelis Roberson on 11-13-2024 Absolute lymphocyte count 0.84 X10^3/uL 0.83-4.51 [facility] Lymphocytes/100 WBC Auto (Un sp spec)Ordered By: Aracelis Roberson on 11-13-2024 Automated lymphocyte count as percentage of total leukocytes 14.7 % Low 19-41 [facility] MCV (RBC) [Entitic vol]Order ed By: Aracelis Roberson on 11-13-2024 MCV (mean corpuscular volume) determination 85.7 fL 80-94 [facility] MR/POSTOP.ANEon 11-13-2024 MR/POSTOP.ANE Normal [facility] MR/PDWBGQCP0yk 11-13-2024 MR/POSTOPAN2 Normal [facility] Mean corpuscular hemoglobin (MCH) determinationOrdered By: Aracelis Roberson on 11-13-2024 Mean corpuscular hemoglobin (MCH) determination 28.9 pg 27.0-32.0 [facility] Mean corpuscular hemoglobin concentration (MCHC) determinationOrdered By: Aracelis Roberson on 11-13-2024 Mean corpuscular hemoglobin concentration (MCHC) determination 33.7 g/dL 32-36 [facility] Mean platelet volume determi nationOrdered By: Aracelis Roberson on 11-13-2024 Mean platelet volume determination 9.0 fl 6.2-12.0 [facility] Monocyte percentageOrdered B y: Aracelis Roberson on 11-13-2024 Monocyte percentage 12.7 % High 0-10 [facility] Neutrophil percentageOrdered By: Aracelis Roberson on 11-13-2024 Neutrophil percentage 69.3 % 47-70 [facility] Nucleated red blood cell per centageOrdered By: Aracelis Roberson on 11-13-2024 Nucleated red blood cell percentage 0 % 0-5 [facility] Partial Thromboplast Timeon 11-13-2024 aPTT Coag (Bld) [Time] 31.5 s Normal 24.1-36.2 [facility] Comment on above: Performed By: #### L 300.4313 ####[facility] [address] [place], [address] Platelet countOrdered By: Miriam Roberson on 11-13-2024 Platelet count 262 K/mm3 150-450 [facility] Potassium measurementOrdered By: Aracelis Roberson on 11-13-2024 Potassium measurement 3.6 mmol/L 3.5-5.1 [facility] RBC Auto (Bld) [#/Vol]Ordere d By: Aracelis Roberson on 11-13-2024 Automated blood erythrocyte count 3.29 M/mm3 Low 4.6-6.2 [facility] Serum anion gap measurementO rdered By: Aracelis Roberson on 11-13-2024 Serum anion gap measurement 6 5-15 [facility] Sodium levelOrdered By: Aracelis Roberson on 11-13-2024 Sodium level 135 mmol/L Low 136-145 [facility] Urea nitrogen [Mass/Vol]Orde red By: Aracelis Roberson on 11-13-2024 Serum or plasma urea nitrogen measurement (mass/volume) 10 mg/dL 7-18 [facility] White blood cell (WBC) count Ordered By: Aracelis Roberson on 11-13-2024 White blood cell (WBC) count 5.7 K/mm3 4.4-11.0 [facility] aPTT Coag (PPP) [Time]Ordere d By: Eligio Vasques on 11-13-2024 Activated partial thromboplastin time (aPTT) in platelet poor plasma by coagulation a 31.5 Seconds 24.1-36.2 [facility] Basic Metabolic Profile (BMP )on 11-12-2024 BUN/CRE 22.3 RATIO High 10-20 [facility] Comment on above: Performed By: #### L 500.2500, L100.0100 ####[facility] [address] [place], [address] CA,Total 8.9 mg/dL Normal 8.5-10.1 [facility] Comment on above: Performed By: #### L 500.2500, L100.0100 ####[facility] [address] [place], [address] Chloride [Moles/Vol] 107 mmol/L Normal 98-107 [facility] Comment on above: Performed By: #### L 500.2500, L100.0100 ####[facility] [address] [place], [address] CO2 [Moles/Vol] 21.0 mmol/L Normal 21.0-32.0 [facility] Comment on above: Performed By: #### L 500.2500, L100.0100 ####[facility] [address] [place], [address] Creatinine [Mass/Vol] 0.76 mg/dL Normal 0.70-1.30 [facility] Comment on above: Result Comment: The validity of the calculated GFR GFRAA in patients over70 years has not been determined. Clinical correlation isessential. Performed By: #### L 500.2500, L100.0100 ####[facility] [address] [place], [address] ECRCL 93.78 ml/min Normal [facility] Comment on above: Performed By: #### L 500.2500, L100.0100 ####[facility] [address] [place], [address] EST GFR - AA 131 mL/min Normal >60 [facility] Comment on above: Result Comment: Afri can Welsh GFR Calc Performed By: #### L 500.2500, L100.0100 ####[facility] [address] [place], [address] GAP 9 Normal 5-15 [facility] Comment on above: Performed By: #### L 500.2500, L100.0100 ####[facility] [address] [place], [address] GFR/1.73 sq M.predicted among non-blacks MDRD (S/P/Bld) [Vol rate/Area] 109 mL/min/{1.73_m2} Normal >60 [facility] Comment on above: Result Comment: Non- GFR Calc Performed By: #### L 500.2500, L100.0100 ####[facility] [address] [place], [address] Glucose [Mass/Vol] 88 mg/dL Normal 74-106 [facility] Comment on above: Performed By: #### L 500.2500, L100.0100 ####[facility] [address] [place], [address] Potassium [Moles/Vol] 3.8 mmol/L Normal 3.5-5.1 [facility] Comment on above: Performed By: #### L 500.2500, L100.0100 ####[facility] [address] [place], [address] Sodium [Moles/Vol] 137 mmol/L Normal 136-145 [facility] Comment on above: Performed By: #### L 500.2500, L100.0100 ####[facility] [address] [place], [address] Urea nitrogen [Mass/Vol] 17 mg/dL Normal 7-18 [facility] Comment on above: Performed By: #### L 500.2500, L100.0100 ####[facility] [address] [place], [address] CBC W/Diff, Automatedon 10-25 Absolute Lymph 1.17 X10 3/uL Normal 0.83-4.51 [facility] Comment on above: Performed By: #### L 500.2500, L100.0100 ####[facility] [address] [place], [address] Absolute Neut 6.7 X10 3/uL Normal 2.0-7.7 [facility] Comment on above: Performed By: #### L 500.2500, L100.0100 ####[facility] [address] [place], [address] Basophils/100 WBC (Bld) 0.5 % Normal 0-1 [facility] Comment on above: Performed By: #### L 500.2500, L100.0100 ####[facility] [address] [place], [address] Eosinophils/100 WBC (Bld) 0.9 % Normal 0-5 [facility] Comment on above: Performed By: #### L 500.2500, L100.0100 ####[facility] [address] [place], [address] Erythrocyte distribution width (RBC) [Ratio] 16.2 % High 11.6-14.6 [facility] Comment on above: Performed By: #### L 500.2500, L100.0100 ####[facility] [address] [place], [address] Hematocrit (Bld) [Volume fraction] 29.8 % Low 40-54 [facility] Comment on above: Performed By: #### L 500.2500, L100.0100 ####[facility] [address] [place], [address] Hemoglobin (Bld) [Mass/Vol] 9.8 g/dL Low 13.0-16.5 [facility] Comment on above: Performed By: #### L 500.2500, L100.0100 ####[facility] [address] [place], [address] IG% 0.600 Normal 0.0-0.9 [facility] Comment on above: Result Comment: IG% - Immature Granulocytes (promyelocytes, myelocytes andmetamyelocytes) > 1% indicates that a LEFT SHIFT is Present. Performed By: #### L 500.2500, L100.0100 ####[facility] [address] [place], [address] Lymphocytes/100 WBC (Bld) 13.2 % Low 19-41 [facility] Comment on above: Performed By: #### L 500.2500, L100.0100 ####[facility] [address] [place], [address] MCH (RBC) [Entitic mass] 28.4 pg Normal 27.0-32.0 [facility] Comment on above: Performed By: #### L 500.2500, L100.0100 ####[facility] [address] [place], [address] MCHC (RBC) [Mass/Vol] 32.9 g/dL Normal 32-36 [facility] Comment on above: Performed By: #### L 500.2500, L100.0100 ####[facility] [address] [place], [address] MCV (RBC) [Entitic vol] 86.4 fL Normal 80-94 [facility] Comment on above: Performed By: #### L 500.2500, L100.0100 ####[facility] [address] [place], [address] Monocytes/100 WBC (Bld) 9.1 % Normal 0-10 [facility] Comment on above: Performed By: #### L 500.2500, L100.0100 ####[facility] [address] [place], [address] Neutrophils/100 WBC (Bld) 75.7 % High 47-70 [facility] Comment on above: Performed By: #### L 500.2500, L100.0100 ####[facility] [address] [place], [address] Nucleated RBC (Bld) [#/Vol] 0 10*3/uL Normal 0-5 [facility] Comment on above: Performed By: #### L 500.2500, L100.0100 ####[facility] [address] [place], [address] Platelet mean volume (Bld) [Entitic vol] 9.3 fL Normal 6.2-12.0 [facility] Comment on above: Performed By: #### L 500.2500, L100.0100 ####[facility] [address] [place], [address] Platelets (Bld) [#/Vol] 322 10*3/uL Normal 150-450 [facility] Comment on above: Performed By: #### L 500.2500, L100.0100 ####[facility] [address] [place], [address] RBC (Bld) [#/Vol] 3.45 10*6/uL Low 4.6-6.2 [facility] Comment on above: Performed By: #### L 500.2500, L100.0100 ####[facility] [address] [place], [address] RDW SD 51.1 fl High 35.1-43.9 [facility] Comment on above: Performed By: #### L 500.2500, L100.0100 ####[facility] [address] [place], [address] WBC (Bld) [#/Vol] 8.9 10*3/uL Normal 4.4-11.0 [facility] Comment on above: Performed By: #### L 500.2500, L100.0100 ####[facility] [address] [place], [address] Discharge Instructionon 10-25 Discharge Instruction Normal [facility] MR/CON.PCM.GIon 11-12-2024 MR/CON.PCM.GI Normal [facility] Basic Metabolic Profile (BMP )on 11-11-2024 BUN/CRE 19.1 RATIO Normal 10-20 [facility] Comment on above: Performed By: #### L 100.0100, L500.2500 ####[facility] [address] [place], [address] CA,Total 9.4 mg/dL Normal 8.5-10.1 [facility] Comment on above: Performed By: #### L 100.0100, L500.2500 ####[facility] [address] [place], [address] Chloride [Moles/Vol] 108 mmol/L High 98-107 [facility] Comment on above: Performed By: #### L 100.0100, L500.2500 ####[facility] [address] [place], [address] CO2 [Moles/Vol] 20.0 mmol/L Low 21.0-32.0 [facility] Comment on above: Performed By: #### L 100.0100, L500.2500 ####[facility] [address] [place], [address] Creatinine [Mass/Vol] 1.10 mg/dL Normal 0.70-1.30 [facility] Comment on above: Result Comment: The validity of the calculated GFR GFRAA in patients over70 years has not been determined. Clinical correlation isessential. Performed By: #### L 100.0100, L500.2500 ####[facility] [address] [place], [address] ECRCL 68.21 ml/min Normal [facility] Comment on above: Performed By: #### L 100.0100, L500.2500 ####[facility] [address] [place], [address] EST GFR - AA 86 mL/min Normal >60 [facility] Comment on above: Result Comment: Afri can Welsh GFR Calc Performed By: #### L 100.0100, L500.2500 ####[facility] [address] [place], [address] GAP 11 Normal 5-15 [facility] Comment on above: Performed By: #### L 100.0100, L500.2500 ####[facility] [address] [place], [address] GFR/1.73 sq M.predicted among non-blacks MDRD (S/P/Bld) [Vol rate/Area] 71 mL/min/{1.73_m2} Normal >60 [facility] Comment on above: Result Comment: Non- GFR Calc Performed By: #### L 100.0100, L500.2500 ####[facility] [address] [place], [address] Glucose [Mass/Vol] 113 mg/dL High 74-106 [facility] Comment on above: Result Comment: Fast ing Glucose result from 100 to 125 mg/dLsuggests IMPAIRED HOMEOSTASIS per A.D.A. criteria. Performed By: #### L 100.0100, L500.2500 ####[facility] [address] [place], [address] Potassium [Moles/Vol] 4.0 mmol/L Normal 3.5-5.1 [facility] Comment on above: Performed By: #### L 100.0100, L500.2500 ####[facility] [address] [place], [address] Sodium [Moles/Vol] 140 mmol/L Normal 136-145 [facility] Comment on above: Performed By: #### L 100.0100, L500.2500 ####[facility] [address] [place], [address] Urea nitrogen [Mass/Vol] 21 mg/dL High 7-18 [facility] Comment on above: Performed By: #### L 100.0100, L500.2500 ####[facility] [address] [place], [address] CBC W/Diff, Automatedon - Absolute Lymph 1.00 X10 3/uL Normal 0.83-4.51 [facility] Comment on above: Performed By: #### L 100.0100, L500.2500 ####[facility] [address] [place], [address] Absolute Neut 9.8 X10 3/uL High 2.0-7.7 [facility] Comment on above: Performed By: #### L 100.0100, L500.2500 ####[facility] [address] [place], [address] Basophils/100 WBC (Bld) 0.2 % Normal 0-1 [facility] Comment on above: Performed By: #### L 100.0100, L500.2500 ####[facility] [address] [place], [address] Eosinophils/100 WBC (Bld) 0.0 % Normal 0-5 [facility] Comment on above: Performed By: #### L 100.0100, L500.2500 ####[facility] [address] [place], [address] Erythrocyte distribution width (RBC) [Ratio] 15.9 % High 11.6-14.6 [facility] Comment on above: Performed By: #### L 100.0100, L500.2500 ####[facility] [address] [place], [address] Hematocrit (Bld) [Volume fraction] 30.4 % Low 40-54 [facility] Comment on above: Performed By: #### L 100.0100, L500.2500 ####[facility] [address] [place], [address] Hemoglobin (Bld) [Mass/Vol] 10.4 g/dL Low 13.0-16.5 [facility] Comment on above: Performed By: #### L 100.0100, L500.2500 ####[facility] [address] [place], [address] IG% 0.600 Normal 0.0-0.9 [facility] Comment on above: Result Comment: IG% - Immature Granulocytes (promyelocytes, myelocytes andmetamyelocytes) > 1% indicates that a LEFT SHIFT is Present. Performed By: #### L 100.0100, L500.2500 ####[facility] [address] [place], [address] Lymphocytes/100 WBC (Bld) 8.1 % Low 19-41 [facility] Comment on above: Performed By: #### L 100.0100, L500.2500 ####[facility] [address] [place], [address] MCH (RBC) [Entitic mass] 28.9 pg Normal 27.0-32.0 [facility] Comment on above: Performed By: #### L 100.0100, L500.2500 ####[facility] [address] [place], [address] MCHC (RBC) [Mass/Vol] 34.2 g/dL Normal 32-36 [facility] Comment on above: Performed By: #### L 100.0100, L500.2500 ####[facility] [address] [place], [address] MCV (RBC) [Entitic vol] 84.4 fL Normal 80-94 [facility] Comment on above: Performed By: #### L 100.0100, L500.2500 ####[facility] [address] [place], [address] Monocytes/100 WBC (Bld) 11.9 % High 0-10 [facility] Comment on above: Performed By: #### L 100.0100, L500.2500 ####[facility] [address] [place], [address] Neutrophils/100 WBC (Bld) 79.2 % High 47-70 [facility] Comment on above: Performed By: #### L 100.0100, L500.2500 ####[facility] [address] [place], [address] Nucleated RBC (Bld) [#/Vol] 0 10*3/uL Normal 0-5 [facility] Comment on above: Performed By: #### L 100.0100, L500.2500 ####[facility] [address] [place], [address] Platelet mean volume (Bld) [Entitic vol] 9.7 fL Normal 6.2-12.0 [facility] Comment on above: Performed By: #### L 100.0100, L500.2500 ####[facility] [address] [place], [address] Platelets (Bld) [#/Vol] 386 10*3/uL Normal 150-450 [facility] Comment on above: Performed By: #### L 100.0100, L500.2500 ####[facility] [address] [place], [address] RBC (Bld) [#/Vol] 3.60 10*6/uL Low 4.6-6.2 [facility] Comment on above: Performed By: #### L 100.0100, L500.2500 ####[facility] [address] [place], [address] RDW SD 48.9 fl High 35.1-43.9 [facility] Comment on above: Performed By: #### L 100.0100, L500.2500 ####[facility] [address] [place], [address] WBC (Bld) [#/Vol] 12.4 10*3/uL High 4.4-11.0 [facility] Comment on above: Performed By: #### L 100.0100, L500.2500 ####[facility] [address] [place], [address] HH, Hemoglobin AND Hematocri ton 11-11-2024 Hematocrit (Bld) [Volume fraction] 29.4 % Low 40-54 [facility] Comment on above: Performed By: #### L 100.0600 ####[facility] [address] [place], [address] Hemoglobin (Bld) [Mass/Vol] 9.9 g/dL Low 13.0-16.5 [facility] Comment on above: Performed By: #### L 100.0600 ####[facility] [address] [place], [address] ALP [Catalytic activity/Vol] Ordered By: Dewey Kam on 11-10-2024 Serum or plasma alkaline phosphatase measurement 63 U/L 45-117 [facility] ALT [Catalytic activity/Vol] Ordered By: Dewey Kam on 11-10-2024 Serum or plasma alanine aminotransferase (ALT) measurement 22 U/L 16-61 [facility] Abdomen/Pelvis W IV Cont ONL Yon 11-10-2024 Abdomen/Pelvis W IV Cont ONLY Normal [facility] Albumin [Mass/Vol]Ordered By : Dewey Kam on 11-10-2024 Serum or plasma albumin measurement (mass/volume) 4.4 g/dL 3.2-5.0 [facility] Albumin to globulin ratioOrd ered By: Dewey Picketto on 11-10-2024 Albumin to globulin ratio 1.0 RATIO 0.9-2.4 [facility] Bacteria LM.HPF (Urine sed) [#/Area]Ordered By: Dewey Kam on 11-10-2024 Urine sediment bacteria count by microscopy (number/high power field) 0 SEEN /hpf None Seen [facility] Bilirubin, totalOrdered By: Deweyrandall Kam on 11-10-2024 Bilirubin, total 0.50 mg/dL 0.20-1.00 [facility] CBC W/Diff, Automatedon 10-25 Absolute Lymph 0.50 X10 3/uL Low 0.83-4.51 [facility] Comment on above: Performed By: #### L 100.0100, L500.4050 ####[facility] [address] [place], [address] Absolute Neut 17.7 X10 3/uL High 2.0-7.7 [facility] Comment on above: Performed By: #### L 100.0100, L500.4050 ####[facility] [address] [place], [address] Basophils/100 WBC (Bld) 0.1 % Normal 0-1 [facility] Comment on above: Performed By: #### L 100.0100, L500.4050 ####[facility] [address] [place], [address] Eosinophils/100 WBC (Bld) 0.3 % Normal 0-5 [facility] Comment on above: Performed By: #### L 100.0100, L500.4050 ####[facility] [address] [place], [address] Erythrocyte distribution width (RBC) [Ratio] 15.8 % High 11.6-14.6 [facility] Comment on above: Performed By: #### L 100.0100, L500.4050 ####[facility] [address] [place], [address] Hematocrit (Bld) [Volume fraction] 40.2 % Normal 40-54 [facility] Comment on above: Performed By: #### L 100.0100, L500.4050 ####[facility] [address] [place], [address] Hemoglobin (Bld) [Mass/Vol] 13.5 g/dL Normal 13.0-16.5 [facility] Comment on above: Performed By: #### L 100.0100, L500.4050 ####[facility] [address] [place], [address] IG% 0.500 Normal 0.0-0.9 [facility] Comment on above: Result Comment: IG% - Immature Granulocytes (promyelocytes, myelocytes andmetamyelocytes) > 1% indicates that a LEFT SHIFT is Present. Performed By: #### L 100.0100, L500.4050 ####[facility] [address] [place], [address] Lymphocytes/100 WBC (Bld) 2.6 % Low 19-41 [facility] Comment on above: Performed By: #### L 100.0100, L500.4050 ####[facility] [address] [place], [address] MCH (RBC) [Entitic mass] 28.1 pg Normal 27.0-32.0 [facility] Comment on above: Performed By: #### L 100.0100, L500.4050 ####[facility] [address] [place], [address] MCHC (RBC) [Mass/Vol] 33.6 g/dL Normal 32-36 [facility] Comment on above: Performed By: #### L 100.0100, L500.4050 ####[facility] [address] [place], [address] MCV (RBC) [Entitic vol] 83.6 fL Normal 80-94 [facility] Comment on above: Performed By: #### L 100.0100, L500.4050 ####[facility] [address] [place], [address] Monocytes/100 WBC (Bld) 3.2 % Normal 0-10 [facility] Comment on above: Performed By: #### L 100.0100, L500.4050 ####[facility] [address] [place], [address] Neutrophils/100 WBC (Bld) 93.3 % High 47-70 [facility] Comment on above: Performed By: #### L 100.0100, L500.4050 ####[facility] [address] [place], [address] Nucleated RBC (Bld) [#/Vol] 0 10*3/uL Normal 0-5 [facility] Comment on above: Performed By: #### L 100.0100, L500.4050 ####[facility] [address] [place], [address] Platelet mean volume (Bld) [Entitic vol] 9.5 fL Normal 6.2-12.0 [facility] Comment on above: Performed By: #### L 100.0100, L500.4050 ####[facility] [address] [place], [address] Platelets (Bld) [#/Vol] 579 10*3/uL High 150-450 [facility] Comment on above: Performed By: #### L 100.0100, L500.4050 ####[facility] [address] [place], [address] RBC (Bld) [#/Vol] 4.81 10*6/uL Normal 4.6-6.2 [facility] Comment on above: Performed By: #### L 100.0100, L500.4050 ####[facility] [address] [place], [address] RDW SD 47.4 fl High 35.1-43.9 [facility] Comment on above: Performed By: #### L 100.0100, L500.4050 ####[facility] [address] [place], [address] WBC (Bld) [#/Vol] 19.0 10*3/uL High 4.4-11.0 [facility] Comment on above: Performed By: #### L 100.0100, L500.4050 ####[facility] [address] [place], [address] Clarity (U)Ordered By: Dewey Centeno allo on 11-10-2024 Urine clarity Clear Clear [facility] Color (U)Ordered By: Dewey Hall lo on 11-10-2024 Urine color determination Yellow Yellow [facility] Comprehensive Metabolic Prof ilon 11-10-2024 Albumin [Mass/Vol] 4.4 g/dL Normal 3.2-5.0 [facility] Comment on above: Performed By: #### L 100.0100, L500.4050 ####[facility] [address] [place], [address] Albumin/Globulin [Mass ratio] 1.0 {ratio} Normal 0.9-2.4 [facility] Comment on above: Performed By: #### L 100.0100, L500.4050 ####[facility] [address] [place], [address] ALK P 63 U/L Normal 45-117 [facility] Comment on above: Performed By: #### L 100.0100, L500.4050 ####[facility] [address] [place], [address] ALT [Catalytic activity/Vol] 22 U/L Normal 16-61 [facility] Comment on above: Performed By: #### L 100.0100, L500.4050 ####[facility] [address] [place], [address] AST [Catalytic activity/Vol] 39 U/L High 15-37 [facility] Comment on above: Result Comment: Mode rate Hemolysis, Result may be falsely increased. Performed By: #### L 100.0100, L500.4050 ####[facility] [address] [place], [address] Bilirubin [Mass/Vol] 0.50 mg/dL Normal 0.20-1.00 [facility] Comment on above: Result Comment: For patients on eltrombopag therapy, use of Dimension [place] TBIL is not recommended. Performed By: #### L 100.0100, L500.4050 ####[facility] [address] [place], [address] BUN/CRE 9.7 RATIO Low 10-20 [facility] Comment on above: Performed By: #### L 100.0100, L500.4050 ####[facility] [address] [place], [address] CA,Total 11.1 mg/dL High 8.5-10.1 [facility] Comment on above: Performed By: #### L 100.0100, L500.4050 ####[facility] [address] [place], [address] Chloride [Moles/Vol] 102 mmol/L Normal 98-107 [facility] Comment on above: Performed By: #### L 100.0100, L500.4050 ####[facility] [address] [place], [address] CO2 [Moles/Vol] 15.0 mmol/L Low 21.0-32.0 [facility] Comment on above: Performed By: #### L 100.0100, L500.4050 ####[facility] [address] [place], [address] Creatinine [Mass/Vol] 1.75 mg/dL High 0.70-1.30 [facility] Comment on above: Result Comment: The validity of the calculated GFR GFRAA in patients over70 years has not been determined. Clinical correlation isessential. Performed By: #### L 100.0100, L500.4050 ####[facility] [address] [place], [address] ECRCL 42.87 ml/min Normal [facility] Comment on above: Performed By: #### L 100.0100, L500.4050 ####[facility] [address] [place], [address] EST GFR - AA 50 mL/min Low >60 [facility] Comment on above: Result Comment: Afri can Welsh GFR Calc Performed By: #### L 100.0100, L500.4050 ####[facility] [address] [place], [address] GAP 17 High 5-15 [facility] Comment on above: Performed By: #### L 100.0100, L500.4050 ####[facility] [address] [place], [address] GFR/1.73 sq M.predicted among non-blacks MDRD (S/P/Bld) [Vol rate/Area] 42 mL/min/{1.73_m2} Low >60 [facility] Comment on above: Result Comment: Non- GFR Calc Performed By: #### L 100.0100, L500.4050 ####[facility] [address] [place], [address] Globulin (S) [Mass/Vol] 4.5 g/dL High 2.2-4.2 [facility] Comment on above: Performed By: #### L 100.0100, L500.4050 ####[facility] [address] [place], [address] Glucose [Mass/Vol] 166 mg/dL High 74-106 [facility] Comment on above: Result Comment: Fast ing Glucose result greater than or equal to 126 mg/dLsuggests DIABETES MELLITUS per A.D.A. criteria. Performed By: #### L 100.0100, L500.4050 ####[facility] [address] [place], [address] Potassium [Moles/Vol] 5.4 mmol/L High 3.5-5.1 [facility] Comment on above: Result Comment: Mode rate Hemolysis, Result may be falsely increased. Performed By: #### L 100.0100, L500.4050 ####[facility] [address] [place], [address] Sodium [Moles/Vol] 134 mmol/L Low 136-145 [facility] Comment on above: Performed By: #### L 100.0100, L500.4050 ####[facility] [address] [place], [address] T PROT 8.9 g/dL High 6.4-8.2 [facility] Comment on above: Performed By: #### L 100.0100, L500.4050 ####[facility] [address] [place], [address] Urea nitrogen [Mass/Vol] 17 mg/dL Normal 7-18 [facility] Comment on above: Performed By: #### L 100.0100, L500.4050 ####[facility] [address] [place], [address] Emergency Department Summary on 11-10-2024 Emergency Department Summary Normal [facility] Gastric, Occult Bloodon - GASTOC Normal Reference Ran ge = Negative Gastrocult- Occult Blood A * POSITIVE * A Gastroccult pH 3 OCCULT BLOOD POSITIVE Normal [facility] Comment on above: Performed By: #### M 100.6950 ####[facility] [address] [place], [place], [id number] Glucose Ql (U)Ordered By: Sharon Kam on 11-10-2024 Urine glucose detection Normal mg/dl Normal [facility] Hemoglobin.gastrointestinal Ql (William fld)Ordered By: Kristel aLw on 11-10-2024 Gastric contents occult blood detection Positive Abnormal [facility] Hyaline casts LM.LPF (Urine sed) [#/Area]Ordered By: Dewey Kam on 11-10-2024 Urine sediment hyaline cast count by microscopy (number/low power field) 10-25 SEEN /lpf 0-5 [facility] Lactic Acidon 11-10-2024 Lactate [Moles/Vol] 0.7 mmol/L Normal 0.4-1.9 [facility] Comment on above: Performed By: #### L 503.6005 ####[facility] [address] [facility] [place], [address] Lactate [Moles/Vol] 3.9 mmol/L Invalid Interpretation Code 0.4-1.9 [facility] Comment on above: Order Comment: Y Result Comment: Crit ical Result(s) Called at: 18:25:49 11/10/2024 by: MAXIMILIAN ESCALONA. Results read back by same. Performed By: #### L 503.6005 ####[facility] [address] [facility] [place], [place], [id number] Lactic acid measurementOrder ed By: Kristel Law on 11-10-2024 Lactic acid measurement 0.7 mmol/L 0.4-2.0 [facility] Leukocyte esterase Test stri p Ql (U)Ordered By: Dewey Kam on 11-10-2024 Urine leukocyte esterase detection by dipstick 25 /ul High Negative [facility] Lipaseon 11-10-2024 Lipase [Catalytic activity/Vol] 30 U/L Low 73-393 [facility] Comment on above: Performed By: #### L 501.2450 ####[facility] [address] [place], [place], [id number] Lipase measurementOrdered By : Kristel Law on 11-10-2024 Lipase measurement 30 U/L Low 73-393 [facility] Microscopic analysis of urin e for red blood cells (RBC)Ordered By: Dewey Kam on 11-10-2024 Microscopic analysis of urine for red blood cells (RBC) 5-10 SEEN /hpf 0-5 [facility] Mucus detection in urine sed iment by light microscopyOrdered By: Deweyrandall Kam on 11-10-2024 Mucus detection in urine sediment by light microscopy 1+ /hpf [facility] No Panel InformationOrdered By: Deweyrandall Kam on 11-10-2024 39 U/L High 15-37 [facility] Protein Test strip Ql (U)Ord ered By: Dewey Kam on 11-10-2024 Urine protein assay by test strip, semi-quantitative 30 mg/dl High Negative [facility] Serum globulin measurementOr dered By: Dewey Kam on 11-10-2024 Serum globulin measurement 4.5 g/dL High 2.2-4.2 [facility] Specific gravity (U) [Rel de nsity]Ordered By: Dewey Kam on 11-10-2024 Urine specific gravity measurement 1.025 1.002-1.03 0 [facility] Total proteinOrdered By: Deweyrandall Kam on 11-10-2024 Total protein 8.9 g/dL High 6.4-8.2 [facility] Urinalysis, Completeon 11-10 CAST,FINE GRAN 0-5 SEEN Normal 0-5 [facility] Comment on above: Order Comment: CLEAN CATCH Performed By: #### L 400.0001 ####[facility] [address] [place], [place], [id number] CAST,WBC 0-5 SEEN Normal None Seen [facility] Comment on above: Order Comment: CLEAN CATCH Performed By: #### L 400.0001 ####[facility] [address] [place], [address] CA OX CRYSTAL 1+ /hpf Normal [facility] Comment on above: Order Comment: CLEAN CATCH Performed By: #### L 400.0001 ####[facility] [address] [place], [address] CAST,HYALINE 10-25 SEEN Normal 0-5 [facility] Comment on above: Order Comment: CLEAN CATCH Performed By: #### L 400.0001 ####[facility] [address] [place], [address] EPI,SQUAMOUS 0-5 SEEN Normal 0-5 [facility] Comment on above: Order Comment: CLEAN CATCH Performed By: #### L 400.0001 ####[facility] [address] [place], [address] Mucus Ql (Urine sed) 1+ /hpf Normal [facility] Comment on above: Order Comment: CLEAN CATCH Performed By: #### L 400.0001 ####[facility] [address] [place], [address] RBC 5-10 SEEN Normal 0-5 [facility] Comment on above: Order Comment: CLEAN CATCH Performed By: #### L 400.0001 ####[facility] [address] [place], [address] WBC 0-5 SEEN Normal 0-5 [facility] Comment on above: Order Comment: CLEAN CATCH Performed By: #### L 400.0001 ####[facility] [address] [place], [address] BACTERIA 0 SEEN Normal None Seen [facility] Comment on above: Order Comment: CLEAN CATCH Performed By: #### L 400.0001 ####[facility] [address] [place], [address] Urine blood detectionOrdered By: Dewey Kam on 11-10-2024 Urine blood detection 150 /ul High Negative [facility] Urine sediment fine granular cast count by microscopy (number/low power field)Ordered By: Dewey Kam on 11-10-2024 Urine sediment fine granular cast count by microscopy (number/low power field) 0-5 SEEN /lpf None Seen [facility] Urine total bilirubin detect ion by test stripOrdered By: Dewey Kam on 11-10-2024 Urine total bilirubin detection by test strip Negative Negative [facility] Urobilinogen Ql (U)Ordered B y: Dewey Kam on 11-10-2024 Urine urobilinogen measurement 1 mg/dl High Normal [facility] White blood cell countOrdere d By: Dewey Kam on 11-10-2024 White blood cell count 0-5 SEEN /hpf 0-5 [facility] pH (U)Ordered By: Dewey Kam on 11-10-2024 Urine pH 5.0 5.0 - 8.0 [facility] ALP [Catalytic activity/Vol] Ordered By: Henry Ortiz on 10-23-2024 Serum or plasma alkaline phosphatase measurement 58 U/L 45-117 [facility] ALT [Catalytic activity/Vol] Ordered By: Henry Ortiz on 10-23-2024 Serum or plasma alanine aminotransferase (ALT) measurement 19 U/L 16-61 [facility] Absolute neutrophil countOrd ered By: Henry Ortiz on 10-23-2024 Absolute neutrophil count 15.5 X10^3/uL High 2.0-7.7 [facility] Acute Abdomen Inc Cheston Acute Abdomen Inc Chest Normal [facility] Albumin [Mass/Vol]Ordered By : Henry Ortiz on 10-23-2024 Serum or plasma albumin measurement (mass/volume) 4.0 g/dL 3.2-5.0 [facility] Albumin to globulin ratioOrd ered By: Henry Ortiz on 10-23-2024 Albumin to globulin ratio 1.1 RATIO 0.9-2.4 [facility] Bacteria LM.HPF (Urine sed) [#/Area]Ordered By: Henry Ortiz on 10-23-2024 Urine sediment bacteria count by microscopy (number/high power field) 2+ /hpf None Seen [facility] Basophil percentageOrdered B y: Henry Ortiz on 10-23-2024 Basophil percentage 0.2 % 0-1 [facility] Bilirubin, totalOrdered By: Henry Ortiz on 10-23-2024 Bilirubin, total 0.40 mg/dL 0.20-1.00 [facility] Blood urea nitrogen (BUN)/cr eatinine ratioOrdered By: Henry Ortiz on 10-23-2024 Blood urea nitrogen (BUN)/creatinine ratio 14.4 RATIO 10-20 [facility] CBC W/Diff, Automatedon 09-26 Absolute Lymph 0.63 X10 3/uL Low 0.83-4.51 [facility] Comment on above: Performed By: #### L 500.4050, L100.0100, L501.2450, L503.6005 ####[facility] [address] [place], [address] Absolute Neut 15.5 X10 3/uL High 2.0-7.7 [facility] Comment on above: Performed By: #### L 500.4050, L100.0100, L501.2450, L503.6005 ####[facility] [address] [place], [address] Basophils/100 WBC (Bld) 0.2 % Normal 0-1 [facility] Comment on above: Performed By: #### L 500.4050, L100.0100, L501.2450, L503.6005 ####[facility] [address] [place], [address] Eosinophils/100 WBC (Bld) 0.1 % Normal 0-5 [facility] Comment on above: Performed By: #### L 500.4050, L100.0100, L501.2450, L503.6005 ####[facility] [address] [place], [address] Erythrocyte distribution width (RBC) [Ratio] 16.5 % High 11.6-14.6 [facility] Comment on above: Performed By: #### L 500.4050, L100.0100, L501.2450, L503.6005 ####[facility] [address] [place], [address] Hematocrit (Bld) [Volume fraction] 36.0 % Low 40-54 [facility] Comment on above: Performed By: #### L 500.4050, L100.0100, L501.2450, L503.6005 ####[facility] [address] [place], [address] Hemoglobin (Bld) [Mass/Vol] 12.1 g/dL Low 13.0-16.5 [facility] Comment on above: Performed By: #### L 500.4050, L100.0100, L501.2450, L503.6005 ####[facility] [address] [place], [address] IG% 1.000 High 0.0-0.9 [facility] Comment on above: Result Comment: IG% - Immature Granulocytes (promyelocytes, myelocytes andmetamyelocytes) > 1% indicates that a LEFT SHIFT is Present. Performed By: #### L 500.4050, L100.0100, L501.2450, L503.6005 ####[facility] [address] [place], [address] Lymphocytes/100 WBC (Bld) 3.8 % Low 19-41 [facility] Comment on above: Performed By: #### L 500.4050, L100.0100, L501.2450, L503.6005 ####[facility] [address] [place], [address] MCH (RBC) [Entitic mass] 28.6 pg Normal 27.0-32.0 [facility] Comment on above: Performed By: #### L 500.4050, L100.0100, L501.2450, L503.6005 ####[facility] [address] [place], [address] MCHC (RBC) [Mass/Vol] 33.6 g/dL Normal 32-36 [facility] Comment on above: Performed By: #### L 500.4050, L100.0100, L501.2450, L503.6005 ####[facility] [address] [place], [address] MCV (RBC) [Entitic vol] 85.1 fL Normal 80-94 [facility] Comment on above: Performed By: #### L 500.4050, L100.0100, L501.2450, L503.6005 ####[facility] [address] [place], [address] Monocytes/100 WBC (Bld) 2.4 % Normal 0-10 [facility] Comment on above: Performed By: #### L 500.4050, L100.0100, L501.2450, L503.6005 ####[facility] [address] [place], [address] Neutrophils/100 WBC (Bld) 92.5 % High 47-70 [facility] Comment on above: Performed By: #### L 500.4050, L100.0100, L501.2450, L503.6005 ####[facility] [address] [place], [address] Nucleated RBC (Bld) [#/Vol] 0 10*3/uL Normal 0-5 [facility] Comment on above: Performed By: #### L 500.4050, L100.0100, L501.2450, L503.6005 ####[facility] [address] [place], [address] Platelet mean volume (Bld) [Entitic vol] 9.0 fL Normal 6.2-12.0 [facility] Comment on above: Performed By: #### L 500.4050, L100.0100, L501.2450, L503.6005 ####[facility] [address] [place], [address] Platelets (Bld) [#/Vol] 475 10*3/uL High 150-450 [facility] Comment on above: Performed By: #### L 500.4050, L100.0100, L501.2450, L503.6005 ####[facility] [address] [place], [address] RBC (Bld) [#/Vol] 4.23 10*6/uL Low 4.6-6.2 [facility] Comment on above: Performed By: #### L 500.4050, L100.0100, L501.2450, L503.6005 ####[facility] [address] [place], [address] RDW SD 51.1 fl High 35.1-43.9 [facility] Comment on above: Performed By: #### L 500.4050, L100.0100, L501.2450, L503.6005 ####[facility] [address] [place], [address] WBC (Bld) [#/Vol] 16.7 10*3/uL High 4.4-11.0 [facility] Comment on above: Performed By: #### L 500.4050, L100.0100, L501.2450, L503.6005 ####[facility] [address] [place], [address] Calcium [Mass/Vol]Ordered By : Henry Ortiz on 10-23-2024 Serum or plasma calcium measurement (mass/volume) 10.0 mg/dL 8.5-10.1 [facility] Carbon dioxide measurementOr dered By: Henry Ortiz on 10-23-2024 Carbon dioxide measurement 20.0 mmol/L Low 21.0-32.0 [facility] Chloride measurementOrdered By: Henry Ortiz on 10-23-2024 Chloride measurement 109 mmol/L High 98-107 [facility] Clarity (U)Ordered By: Justin Ortiz on 10-23-2024 Urine clarity Clear Clear [facility] Color (U)Ordered By: Henry Ortiz on 10-23-2024 Urine color determination Yellow Yellow [facility] Comprehensive Metabolic Prof ilon 10-23-2024 Albumin [Mass/Vol] 4.0 g/dL Normal 3.2-5.0 [facility] Comment on above: Performed By: #### L 500.4050, L100.0100, L501.2450, L503.6005 ####[facility] [address] [place], [address] Albumin/Globulin [Mass ratio] 1.1 {ratio} Normal 0.9-2.4 [facility] Comment on above: Performed By: #### L 500.4050, L100.0100, L501.2450, L503.6005 ####[facility] [address] [place], [address] ALK P 58 U/L Normal 45-117 [facility] Comment on above: Performed By: #### L 500.4050, L100.0100, L501.2450, L503.6005 ####[facility] [address] [place], [address] ALT [Catalytic activity/Vol] 19 U/L Normal 16-61 [facility] Comment on above: Performed By: #### L 500.4050, L100.0100, L501.2450, L503.6005 ####[facility] [address] [place], [address] AST [Catalytic activity/Vol] 17 U/L Normal 15-37 [facility] Comment on above: Performed By: #### L 500.4050, L100.0100, L501.2450, L503.6005 ####[facility] [address] [place], [address] Bilirubin [Mass/Vol] 0.40 mg/dL Normal 0.20-1.00 [facility] Comment on above: Result Comment: For patients on eltrombopag therapy, use of Dimension [place] TBIL is not recommended. Performed By: #### L 500.4050, L100.0100, L501.2450, L503.6005 ####[facility] [address] [place], [address] BUN/CRE 14.4 RATIO Normal 10-20 [facility] Comment on above: Performed By: #### L 500.4050, L100.0100, L501.2450, L503.6005 ####[facility] [address] [place], [address] CA,Total 10.0 mg/dL Normal 8.5-10.1 [facility] Comment on above: Performed By: #### L 500.4050, L100.0100, L501.2450, L503.6005 ####[facility] [address] [place], [address] Chloride [Moles/Vol] 109 mmol/L High 98-107 [facility] Comment on above: Performed By: #### L 500.4050, L100.0100, L501.2450, L503.6005 ####[facility] [address] [place], [address] CO2 [Moles/Vol] 20.0 mmol/L Low 21.0-32.0 [facility] Comment on above: Performed By: #### L 500.4050, L100.0100, L501.2450, L503.6005 ####[facility] [address] [place], [address] Creatinine [Mass/Vol] 1.18 mg/dL Normal 0.70-1.30 [facility] Comment on above: Result Comment: The validity of the calculated GFR GFRAA in patients over70 years has not been determined. Clinical correlation isessential. Performed By: #### L 500.4050, L100.0100, L501.2450, L503.6005 ####[facility] [address] [place], [address] ECRCL 63.58 ml/min Normal [facility] Comment on above: Performed By: #### L 500.4050, L100.0100, L501.2450, L503.6005 ####[facility] [address] [place], [address] EST GFR - AA 79 mL/min Normal >60 [facility] Comment on above: Result Comment: Afri can Welsh GFR Calc Performed By: #### L 500.4050, L100.0100, L501.2450, L503.6005 ####[facility] [address] [place], [address] GAP 13 Normal 5-15 [facility] Comment on above: Performed By: #### L 500.4050, L100.0100, L501.2450, L503.6005 ####[facility] [address] [place], [address] GFR/1.73 sq M.predicted among non-blacks MDRD (S/P/Bld) [Vol rate/Area] 66 mL/min/{1.73_m2} Normal >60 [facility] Comment on above: Result Comment: Non- GFR Calc Performed By: #### L 500.4050, L100.0100, L501.2450, L503.6005 ####[facility] [address] [place], [address] Globulin (S) [Mass/Vol] 3.8 g/dL Normal 2.2-4.2 [facility] Comment on above: Performed By: #### L 500.4050, L100.0100, L501.2450, L503.6005 ####[facility] [address] [place], [address] Glucose [Mass/Vol] 165 mg/dL High 74-106 [facility] Comment on above: Result Comment: Fast ing Glucose result greater than or equal to 126 mg/dLsuggests DIABETES MELLITUS per A.D.A. criteria. Performed By: #### L 500.4050, L100.0100, L501.2450, L503.6005 ####[facility] [address] [place], [address] Potassium [Moles/Vol] 3.5 mmol/L Normal 3.5-5.1 [facility] Comment on above: Performed By: #### L 500.4050, L100.0100, L501.2450, L503.6005 ####[facility] [address] [place], [address] Sodium [Moles/Vol] 142 mmol/L Normal 136-145 [facility] Comment on above: Performed By: #### L 500.4050, L100.0100, L501.2450, L503.6005 ####[facility] [address] [place], [address] T PROT 7.8 g/dL Normal 6.4-8.2 [facility] Comment on above: Performed By: #### L 500.4050, L100.0100, L501.2450, L503.6005 ####[facility] [address] [place], [address] Urea nitrogen [Mass/Vol] 17 mg/dL Normal 7-18 [facility] Comment on above: Performed By: #### L 500.4050, L100.0100, L501.2450, L503.6005 ####[facility] [address] [place], [address] Creatinine [Mass/Vol]Ordered By: Henry Ortiz on 10-23-2024 Serum or plasma creatinine measurement (mass/volume) 1.18 mg/dL 0.70-1.30 [facility] Emergency Department Summary on 10-23-2024 Emergency Department Summary Normal [facility] Eosinophil percentageOrdered By: Henry Ortiz on 10-23-2024 Eosinophil percentage 0.1 % 0-5 [facility] Epithelial cells.squamous LM Ql (Urine sed)Ordered By: Henry Ortiz on 10-23-2024 Squamous epithelial cells detection in urine sediment by light microscopy 0-5 SEEN /hpf 0-5 [facility] Erythrocyte distribution wid th (RBC) [Entitic vol]Ordered By: Henry Ortiz on 10-23-2024 Erythrocyte distribution width standard deviation 51.1 fl High 35.1-43.9 [facility] Erythrocyte distribution wid th (RBC) [Ratio]Ordered By: Henry Ortiz on 10-23-2024 Erythrocyte distribution width ratio 16.5 % High 11.6-14.6 [facility] Estimated glomerular filtrat ion rate (GFR) AmericanOrdered By: Henry Ortiz on 10-23-2024 Estimated glomerular filtration rate (GFR) 79 mL/min >60 [facility] Estimation of creatinine deion aranceOrdered By: Henry Ortiz on 10-23-2024 Estimation of creatinine clearance 63.58 ml/min [facility] Glomerular filtration rate ( GFR) estimationOrdered By: Henry Ortiz on 10-23-2024 Glomerular filtration rate (GFR) estimation 66 mL/min >60 [facility] Glucose measurementOrdered B y: Henry Ortiz on 10-23-2024 Glucose measurement 165 mg/dL High 74-106 [facility] Hematocrit Auto (Bld) [Volum e fraction]Ordered By: Henry Ortiz on 10-23-2024 Automated blood hematocrit (percentage) 36.0 % Low 40-54 [facility] Hemoglobin measurementOrdere d By: Henry Ortiz on 10-23-2024 Hemoglobin measurement 12.1 g/dL Low 13.0-16.5 [facility] Hyaline casts LM.LPF (Urine sed) [#/Area]Ordered By: Henry Ortiz on 10-23-2024 Urine sediment hyaline cast count by microscopy (number/low power field) 0-5 SEEN /lpf 0-5 [facility] Immature granulocytes/100 WB C Auto (Bld)Ordered By: Henry Ortiz on 10-23-2024 Automated immature granulocyte percentage 1.000 % High 0.0-0.9 [facility] Lactic Acidon 10-23-2024 Lactate [Moles/Vol] 2.8 mmol/L Invalid Interpretation Code 0.4-1.9 [facility] Comment on above: Order Comment: Y Result Comment: Crit ical Result(s) Called at: 11:55:49 10/23/2024 by: Layne Garces RN (ER). Results read back by same. Performed By: #### L 500.4050, L100.0100, L501.2450, L503.6005 ####[facility] [address] [place], [place], [address] Lactic acid measurementOrder ed By: Henry Ortiz on 10-23-2024 Lactic acid measurement 2.8 mmol/L High 0.4-2.0 [facility] Lipaseon 10-23-2024 Lipase [Catalytic activity/Vol] 49 U/L Normal 13-75 [facility] Comment on above: Result Comment: Edilberto conn note:LIPASE revised reference range effective 23.New Lipase methodology. Expected to produce lower valuesthan the previous assay method.NEW Reference Range: 13 - 75 U/L Performed By: #### L 500.4050, L100.0100, L501.2450, L503.6005 ####[facility] [address] [place], [place], [address] Lipase measurementOrdered By : Henry Ortiz on 10-23-2024 Lipase measurement 49 U/L 13-75 [facility] Lymphocytes Auto (Unsp spec) [#/Vol]Ordered By: Henry Ortiz on 10-23-2024 Absolute lymphocyte count 0.63 X10^3/uL Low 0.83-4.51 [facility] Lymphocytes/100 WBC Auto (Un sp spec)Ordered By: Henry Ortiz on 10-23-2024 Automated lymphocyte count as percentage of total leukocytes 3.8 % Low 19-41 [facility] MCV (RBC) [Entitic vol]Order ed By: Henry Ortiz on 10-23-2024 MCV (mean corpuscular volume) determination 85.1 fL 80-94 [facility] Mean corpuscular hemoglobin (MCH) determinationOrdered By: Henry Ortiz on 10-23-2024 Mean corpuscular hemoglobin (MCH) determination 28.6 pg 27.0-32.0 [facility] Mean corpuscular hemoglobin concentration (MCHC) determinationOrdered By: Henry Ortiz on 10-23-2024 Mean corpuscular hemoglobin concentration (MCHC) determination 33.6 g/dL 32-36 [facility] Mean platelet volume determi nationOrdered By: Henry Ortiz on 10-23-2024 Mean platelet volume determination 9.0 fl 6.2-12.0 [facility] Microscopic analysis of urin e for red blood cells (RBC)Ordered By: Henry Ortiz on 10-23-2024 Microscopic analysis of urine for red blood cells (RBC) 10-25 SEEN /hpf 0-5 [facility] Monocyte percentageOrdered B y: Henry Ortiz on 10-23-2024 Monocyte percentage 2.4 % 0-10 [facility] Neutrophil percentageOrdered By: Henry Ortiz on 10-23-2024 Neutrophil percentage 92.5 % High 47-70 [facility] No Panel InformationOrdered By: Henry Ortiz on 10-23-2024 17 U/L 15-37 [facility] Nucleated red blood cell per centageOrdered By: Henry Ortiz on 10-23-2024 Nucleated red blood cell percentage 0 % 0-5 [facility] Platelet countOrdered By: Wolf Ortiz on 10-23-2024 Platelet count 475 K/mm3 High 150-450 [facility] Potassium measurementOrdered By: Henry Ortiz on 10-23-2024 Potassium measurement 3.5 mmol/L 3.5-5.1 [facility] Protein Test strip Ql (U)Ord ered By: Henry Ortiz on 10-23-2024 Urine protein assay by test strip, semi-quantitative 30 mg/dl High Negative [facility] RBC Auto (Bld) [#/Vol]Ordere d By: Henry Angel on 10-23-2024 Automated blood erythrocyte count 4.23 M/mm3 Low 4.6-6.2 [facility] Serum anion gap measurementO rdered By: Henry Ortiz on 10-23-2024 Serum anion gap measurement 13 5-15 [facility] Serum globulin measurementOr dered By: Henry Ortiz on 10-23-2024 Serum globulin measurement 3.8 g/dL 2.2-4.2 [facility] Sodium levelOrdered By: Kenrick Ortiz on 10-23-2024 Sodium level 142 mmol/L 136-145 [facility] Specific gravity (U) [Rel de nsity]Ordered By: Henry Ortiz on 10-23-2024 Urine specific gravity measurement 1.010 1.002-1.03 0 [facility] Total proteinOrdered By: Guy Ortiz on 10-23-2024 Total protein 7.8 g/dL 6.4-8.2 [facility] Urea nitrogen [Mass/Vol]Orde red By: Henry Ortiz on 10-23-2024 Serum or plasma urea nitrogen measurement (mass/volume) 17 mg/dL 7-18 [facility] Urinalysis, Completeon 10-23 BACTERIA 2+ /hpf Normal None Seen [facility] Comment on above: Order Comment: CLEAN CATCH Performed By: #### L 400.0001 ####[facility] [address] [place], [place], [id number] CAST,HYALINE 0-5 SEEN Normal 0-5 [facility] Comment on above: Order Comment: CLEAN CATCH Performed By: #### L 400.0001 ####[facility] [address] [place], [address] EPI,SQUAMOUS 0-5 SEEN Normal 0-5 [facility] Comment on above: Order Comment: CLEAN CATCH Performed By: #### L 400.0001 ####[facility] [address] [place], [address] RBC 10-25 SEEN Normal 0-5 [facility] Comment on above: Order Comment: CLEAN CATCH Performed By: #### L 400.0001 ####[facility] [address] [place], [address] Mucus Ql (Urine sed) [address] [facility] Comment on above: Order Comment: CLEAN CATCH Performed By: #### L 400.0001 ####[facility] [address] [place], [address] WBC 0 SEEN Normal 0-5 [facility] Comment on above: Order Comment: CLEAN CATCH Performed By: #### L 400.0001 ####[facility] [address] [place], [place], [id number] Urine blood detectionOrdered By: Henry Ortiz on 10-23-2024 Urine blood detection 150 /ul High Negative [facility] Urine glucose detectionOrder ed By: Henry Ortiz on 10-23-2024 Urine glucose detection Normal mg/dl Normal [facility] Urine total bilirubin detect ion by test stripOrdered By: Henry Ortiz on 10-23-2024 Urine total bilirubin detection by test strip Negative Negative [facility] White blood cell (WBC) count Ordered By: Henry Ortiz on 10-23-2024 White blood cell (WBC) count 16.7 K/mm3 High 4.4-11.0 [facility] White blood cell countOrdere d By: Henry Ortiz on 10-23-2024 White blood cell count 0 SEEN /hpf [facility] pH (U)Ordered By: Henry young on 10-23-2024 Urine pH 6.5 5.0 - 8.0 [facility] Ferritinon 10-20-2024 Ferritin [Mass/Vol] 29 ng/mL Normal 26-388 [facility] Comment on above: Performed By: #### L 503.0105, L503.6150, L503.6550 ####[facility] [address] [place], [address] Ferritin measurementOrdered By: Fredi Angeles on 10-20-2024 Ferritin measurement 29 ng/mL 26-388 [facility] Ironon 10-20-2024 Iron [Mass/Vol] 35 ug/dL Low 65-175 [facility] Comment on above: Performed By: #### L 503.0105, L503.6150, L503.6550 ####[facility] [address] [place], [place], [id number] Iron (Unsp spec) [Mass/Mass] Ordered By: Fredi Angeles on 10-20-2024 Iron measurement (mass/mass) 35 ug/dL Low 65-175 [facility] Neurology Visit Reporton Neurology Visit Report Normal [facility] Vitamin B12on 10-20-2024 Cobalamin (Vitamin B12) [Mass/Vol] 338 pg/mL Normal 211-911 [facility] Comment on above: Performed By: #### L 503.0105, L503.6150, L503.6550 ####[facility] [address] [place], [place], [address] Vitamin B12 measurementOrder ed By: Fredi Angeles on 10-20-2024 Vitamin B12 measurement 338 pg/mL 211-911 [facility] ALP [Catalytic activity/Vol] Ordered By: Iris Orozco on 10-18-2024 Serum or plasma alkaline phosphatase measurement 40 U/L Low 45-117 [facility] ALT [Catalytic activity/Vol] Ordered By: [facility] Ernesto on 10-18-2024 Serum or plasma alanine aminotransferase (ALT) measurement 19 U/L 16-61 [facility] Absolute neutrophil countOrd ered By: Iris Orozco on 10-18-2024 Absolute neutrophil count 6.5 X10^3/uL 2.0-7.7 [facility] Albumin [Mass/Vol]Ordered By : Iris Ernesto on 10-18-2024 Serum or plasma albumin measurement (mass/volume) 3.4 g/dL 3.2-5.0 [facility] Albumin to globulin ratioOrd ered By: Iris Ernesto on 10-18-2024 Albumin to globulin ratio 1.1 RATIO 0.9-2.4 [facility] Basophil percentageOrdered B y: Iris Orozco on 10-18-2024 Basophil percentage 0.4 % 0-1 [facility] Bilirubin, totalOrdered By: Iris Orozco on 10-18-2024 Bilirubin, total 0.50 mg/dL 0.20-1.00 [facility] Blood urea nitrogen (BUN)/cr eatinine ratioOrdered By: Iris Orozco on 10-18-2024 Blood urea nitrogen (BUN)/creatinine ratio 16.5 RATIO 10-20 [facility] CBC W/Diff, Automatedon 09-25 Absolute Lymph 1.03 X10 3/uL Normal 0.83-4.51 [facility] Comment on above: Performed By: #### L 501.5200, L500.4050, L501.9985, L100.0100 ####[facility] [address] [place], [address] Absolute Neut 6.5 X10 3/uL Normal 2.0-7.7 [facility] Comment on above: Performed By: #### L 501.5200, L500.4050, L501.9985, L100.0100 ####[facility] [address] [place], [address] Basophils/100 WBC (Bld) 0.4 % Normal 0-1 [facility] Comment on above: Performed By: #### L 501.5200, L500.4050, L501.9985, L100.0100 ####[facility] [address] [place], [address] Eosinophils/100 WBC (Bld) 0.2 % Normal 0-5 [facility] Comment on above: Performed By: #### L 501.5200, L500.4050, L501.9985, L100.0100 ####[facility] [address] [place], [address] Erythrocyte distribution width (RBC) [Ratio] 16.3 % High 11.6-14.6 [facility] Comment on above: Performed By: #### L 501.5200, L500.4050, L501.9985, L100.0100 ####[facility] [address] [place], [address] Hematocrit (Bld) [Volume fraction] 32.5 % Low 40-54 [facility] Comment on above: Performed By: #### L 501.5200, L500.4050, L501.9985, L100.0100 ####[facility] [address] [place], [address] Hemoglobin (Bld) [Mass/Vol] 10.7 g/dL Low 13.0-16.5 [facility] Comment on above: Performed By: #### L 501.5200, L500.4050, L501.9985, L100.0100 ####[facility] [address] [place], [address] IG% 0.600 Normal 0.0-0.9 [facility] Comment on above: Result Comment: IG% - Immature Granulocytes (promyelocytes, myelocytes andmetamyelocytes) > 1% indicates that a LEFT SHIFT is Present. Performed By: #### L 501.5200, L500.4050, L501.9985, L100.0100 ####[facility] [address] [place], [address] Lymphocytes/100 WBC (Bld) 12.1 % Low 19-41 [facility] Comment on above: Performed By: #### L 501.5200, L500.4050, L501.9985, L100.0100 ####[facility] [address] [place], [address] MCH (RBC) [Entitic mass] 28.9 pg Normal 27.0-32.0 [facility] Comment on above: Performed By: #### L 501.5200, L500.4050, L501.9985, L100.0100 ####[facility] [address] [place], [address] MCHC (RBC) [Mass/Vol] 32.9 g/dL Normal 32-36 [facility] Comment on above: Performed By: #### L 501.5200, L500.4050, L501.9985, L100.0100 ####[facility] [address] [place], [address] MCV (RBC) [Entitic vol] 87.8 fL Normal 80-94 [facility] Comment on above: Performed By: #### L 501.5200, L500.4050, L501.9985, L100.0100 ####[facility] [address] [place], [address] Monocytes/100 WBC (Bld) 10.1 % High 0-10 [facility] Comment on above: Performed By: #### L 501.5200, L500.4050, L501.9985, L100.0100 ####[facility] [address] [place], [address] Neutrophils/100 WBC (Bld) 76.6 % High 47-70 [facility] Comment on above: Performed By: #### L 501.5200, L500.4050, L501.9985, L100.0100 ####[facility] [address] [place], [address] Nucleated RBC (Bld) [#/Vol] 0 10*3/uL Normal 0-5 [facility] Comment on above: Performed By: #### L 501.5200, L500.4050, L501.9985, L100.0100 ####[facility] [address] [place], [address] Platelet mean volume (Bld) [Entitic vol] 8.9 fL Normal 6.2-12.0 [facility] Comment on above: Performed By: #### L 501.5200, L500.4050, L501.9985, L100.0100 ####[facility] [address] [place], [address] Platelets (Bld) [#/Vol] 360 10*3/uL Normal 150-450 [facility] Comment on above: Performed By: #### L 501.5200, L500.4050, L501.9985, L100.0100 ####[facility] [address] [place], [address] RBC (Bld) [#/Vol] 3.70 10*6/uL Low 4.6-6.2 [facility] Comment on above: Performed By: #### L 501.5200, L500.4050, L501.9985, L100.0100 ####[facility] [address] [place], [address] RDW SD 53.0 fl High 35.1-43.9 [facility] Comment on above: Performed By: #### L 501.5200, L500.4050, L501.9985, L100.0100 ####[facility] [address] [place], [address] WBC (Bld) [#/Vol] 8.5 10*3/uL Normal 4.4-11.0 [facility] Comment on above: Performed By: #### L 501.5200, L500.4050, L501.9985, L100.0100 ####[facility] [address] [place], [address] Calcium [Mass/Vol]Ordered By : Iris Orozco on 10-18-2024 Serum or plasma calcium measurement (mass/volume) 9.3 mg/dL 8.5-10.1 [facility] Carbon dioxide measurementOr dered By: Iris Orozco on 10-18-2024 Carbon dioxide measurement 22.0 mmol/L 21.0-32.0 [facility] Chloride measurementOrdered By: Iris Orozco on 10-18-2024 Chloride measurement 111 mmol/L High 98-107 [facility] Comprehensive Metabolic Prof ilon 10-18-2024 Albumin [Mass/Vol] 3.4 g/dL Normal 3.2-5.0 [facility] Comment on above: Performed By: #### L 501.5200, L500.4050, L501.9985, L100.0100 ####[facility] [address] [place], [address] Albumin/Globulin [Mass ratio] 1.1 {ratio} Normal 0.9-2.4 [facility] Comment on above: Performed By: #### L 501.5200, L500.4050, L501.9985, L100.0100 ####[facility] [address] [place], [address] ALK P 40 U/L Low 45-117 [facility] Comment on above: Performed By: #### L 501.5200, L500.4050, L501.9985, L100.0100 ####[facility] [address] [place], [address] ALT [Catalytic activity/Vol] 19 U/L Normal 16-61 [facility] Comment on above: Performed By: #### L 501.5200, L500.4050, L501.9985, L100.0100 ####[facility] [address] [place], [address] AST [Catalytic activity/Vol] 29 U/L Normal 15-37 [facility] Comment on above: Performed By: #### L 501.5200, L500.4050, L501.9985, L100.0100 ####[facility] [address] [place], [address] Bilirubin [Mass/Vol] 0.50 mg/dL Normal 0.20-1.00 [facility] Comment on above: Result Comment: For patients on eltrombopag therapy, use of Dimension Otoe TBIL is not recommended. Performed By: #### L 501.5200, L500.4050, L501.9985, L100.0100 ####[facility] [address] [place], [address] BUN/CRE 16.5 RATIO Normal 10-20 [facility] Comment on above: Performed By: #### L 501.5200, L500.4050, L501.9985, L100.0100 ####[facility] [address] [place], [address] CA,Total 9.3 mg/dL Normal 8.5-10.1 [facility] Comment on above: Performed By: #### L 501.5200, L500.4050, L501.9985, L100.0100 ####[facility] [address] [place], [address] Chloride [Moles/Vol] 111 mmol/L High 98-107 [facility] Comment on above: Performed By: #### L 501.5200, L500.4050, L501.9985, L100.0100 ####[facility] [address] [place], [address] CO2 [Moles/Vol] 22.0 mmol/L Normal 21.0-32.0 [facility] Comment on above: Performed By: #### L 501.5200, L500.4050, L501.9985, L100.0100 ####[facility] [address] [place], [address] Creatinine [Mass/Vol] 1.03 mg/dL Normal 0.70-1.30 [facility] Comment on above: Result Comment: The validity of the calculated GFR GFRAA in patients over70 years has not been determined. Clinical correlation isessential. Performed By: #### L 501.5200, L500.4050, L501.9985, L100.0100 ####[facility] [address] [place], [address] ECRCL 72.84 ml/min Normal [facility] Comment on above: Performed By: #### L 501.5200, L500.4050, L501.9985, L100.0100 ####[facility] [address] [place], [address] EST GFR - AA 93 mL/min Normal >60 [facility] Comment on above: Result Comment: Afri can Welsh GFR Calc Performed By: #### L 501.5200, L500.4050, L501.9985, L100.0100 ####[facility] [address] [place], [address] GAP 6 Normal 5-15 [facility] Comment on above: Performed By: #### L 501.5200, L500.4050, L501.9985, L100.0100 ####[facility] [address] [place], [address] GFR/1.73 sq M.predicted among non-blacks MDRD (S/P/Bld) [Vol rate/Area] 77 mL/min/{1.73_m2} Normal >60 [facility] Comment on above: Result Comment: Non- GFR Calc Performed By: #### L 501.5200, L500.4050, L501.9985, L100.0100 ####[facility] [address] [place], [address] Globulin (S) [Mass/Vol] 3.1 g/dL Normal 2.2-4.2 [facility] Comment on above: Performed By: #### L 501.5200, L500.4050, L501.9985, L100.0100 ####[facility] [address] [place], [address] Glucose [Mass/Vol] 87 mg/dL Normal 74-106 [facility] Comment on above: Performed By: #### L 501.5200, L500.4050, L501.9985, L100.0100 ####[facility] [address] [place], [address] Potassium [Moles/Vol] 3.5 mmol/L Normal 3.5-5.1 [facility] Comment on above: Performed By: #### L 501.5200, L500.4050, L501.9985, L100.0100 ####[facility] [address] [place], [address] Sodium [Moles/Vol] 139 mmol/L Normal 136-145 [facility] Comment on above: Performed By: #### L 501.5200, L500.4050, L501.9985, L100.0100 ####[facility] [address] [place], [address] T PROT 6.5 g/dL Normal 6.4-8.2 [facility] Comment on above: Performed By: #### L 501.5200, L500.4050, L501.9985, L100.0100 ####[facility] [address] [place], [address] Urea nitrogen [Mass/Vol] 17 mg/dL Normal 7-18 [facility] Comment on above: Performed By: #### L 501.5200, L500.4050, L501.9985, L100.0100 ####[facility] [address] [place], [address] Creatinine [Mass/Vol]Ordered By: Iris Orozco on 10-18-2024 Serum or plasma creatinine measurement (mass/volume) 1.03 mg/dL 0.70-1.30 [facility] Eosinophil percentageOrdered By: Iris Orozco on 10-18-2024 Eosinophil percentage 0.2 % 0-5 [facility] Erythrocyte distribution wid th (RBC) [Entitic vol]Ordered By: Iris Orozco on 10-18-2024 Erythrocyte distribution width standard deviation 53.0 fl High 35.1-43.9 [facility] Erythrocyte distribution wid th (RBC) [Ratio]Ordered By: Iris Orozco on 10-18-2024 Erythrocyte distribution width ratio 16.3 % High 11.6-14.6 [facility] Estimated glomerular filtrat ion rate (GFR) AmericanOrdered By: Iris Ernesto on 10-18-2024 Estimated glomerular filtration rate (GFR) 93 mL/min >60 [facility] Estimation of creatinine deion aranceOrdered By: Iris Orozco on 10-18-2024 Estimation of creatinine clearance 72.84 ml/min [facility] Glomerular filtration rate ( GFR) estimationOrdered By: [facility] Ernesto on 10-18-2024 Glomerular filtration rate (GFR) estimation 77 mL/min >60 [facility] Glucose measurementOrdered B y: Iris Orozco on 10-18-2024 Glucose measurement 87 mg/dL 74-106 [facility] HbA1c (Bld) [Mass fraction]O rdered By: Iris Ernesto on 10-18-2024 Hemoglobin A1c percentage 4.8 % 3.8-5.6 [facility] Hematocrit Auto (Bld) [Volum e fraction]Ordered By: [facility] Ernesto on 10-18-2024 Automated blood hematocrit (percentage) 32.5 % Low 40-54 [facility] Hemoglobin A1con 10-18-2024 HbA1c (Bld) [Mass fraction] 4.8 % Normal 3.8-5.6 [facility] Comment on above: Result Comment: Norm al < 5.7 % Prediabetic 5.7 - 6.4 % Diabetic >or= 6.5 % Please note range changes. Performed By: #### L 501.5200, L500.4050, L501.9985, L100.0100 ####[facility] [address] [place], [place], [id number] Hemoglobin measurementOrdere d By: Iris Orozco on 10-18-2024 Hemoglobin measurement 10.7 g/dL Low 13.0-16.5 [facility] Immature granulocytes/100 WB C Auto (Bld)Ordered By: Iris Orozco on 10-18-2024 Automated immature granulocyte percentage 0.600 % 0.0-0.9 [facility] Lymphocytes Auto (Unsp spec) [#/Vol]Ordered By: Iris Orozco on 10-18-2024 Absolute lymphocyte count 1.03 X10^3/uL 0.83-4.51 [facility] Lymphocytes/100 WBC Auto (Un sp spec)Ordered By: Iris Ernesto on 10-18-2024 Automated lymphocyte count as percentage of total leukocytes 12.1 % Low 19-41 [facility] MCV (RBC) [Entitic vol]Order ed By: Iris Orozco on 10-18-2024 MCV (mean corpuscular volume) determination 87.8 fL 80-94 [facility] Magnesiumon 10-18-2024 Magnesium [Mass/Vol] 2.1 mg/dL Normal 1.6-2.6 [facility] Comment on above: Performed By: #### L 501.5200, L500.4050, L501.9985, L100.0100 ####[facility] [address] [place], [address] Magnesium measurementOrdered By: Mer Frias on 10-18-2024 Magnesium measurement 2.1 mg/dL 1.6-2.6 [facility] Mean corpuscular hemoglobin (MCH) determinationOrdered By: Iris Orozco on 10-18-2024 Mean corpuscular hemoglobin (MCH) determination 28.9 pg 27.0-32.0 [facility] Mean corpuscular hemoglobin concentration (MCHC) determinationOrdered By: Iris Ernesto on 10-18-2024 Mean corpuscular hemoglobin concentration (MCHC) determination 32.9 g/dL 32-36 [facility] Mean platelet volume determi nationOrdered By: Iris Ernesto on 10-18-2024 Mean platelet volume determination 8.9 fl 6.2-12.0 [facility] Monocyte percentageOrdered B y: Iris Orozco on 10-18-2024 Monocyte percentage 10.1 % High 0-10 [facility] Neutrophil percentageOrdered By: Iris Ernesto on 10-18-2024 Neutrophil percentage 76.6 % High 47-70 [facility] No Panel InformationOrdered By: Iris Orozco on 10-18-2024 29 U/L 15-37 [facility] Nucleated red blood cell per centageOrdered By: Iris Orozco on 10-18-2024 Nucleated red blood cell percentage 0 % 0-5 [facility] Phosphoruson 10-18-2024 Phosphate [Mass/Vol] 2.8 mg/dL Normal 2.5-4.9 [facility] Comment on above: Performed By: #### L 501.2300 ####[facility] [address] [place], [address] Phosphorus measurementOrdere d By: Mer Frias on 10-18-2024 Phosphorus measurement 2.8 mg/dL 2.5-4.9 [facility] Platelet countOrdered By: Vijaya Orozco on 10-18-2024 Platelet count 360 K/mm3 150-450 [facility] Potassium measurementOrdered By: Iris Orozco on 10-18-2024 Potassium measurement 3.5 mmol/L 3.5-5.1 [facility] RBC Auto (Bld) [#/Vol]Ordere d By: Iris Orozco on 10-18-2024 Automated blood erythrocyte count 3.70 M/mm3 Low 4.6-6.2 [facility] Serum anion gap measurementO rdered By: Iris Orozco on 10-18-2024 Serum anion gap measurement 6 5-15 [facility] Serum globulin measurementOr dered By: Iris Orozco on 10-18-2024 Serum globulin measurement 3.1 g/dL 2.2-4.2 [facility] Sodium levelOrdered By: Gonzalou mn Ernesto on 10-18-2024 Sodium level 139 mmol/L 136-145 [facility] Total proteinOrdered By: Gonzalo umn Ernesto on 10-18-2024 Total protein 6.5 g/dL 6.4-8.2 [facility] Urea nitrogen [Mass/Vol]Orde red By: Iris Orozco on 10-18-2024 Serum or plasma urea nitrogen measurement (mass/volume) 17 mg/dL 7-18 [facility] White blood cell (WBC) count Ordered By: Iris Orozco on 10-18-2024 White blood cell (WBC) count 8.5 K/mm3 4.4-11.0 [facility] CBC W/Diff, Automatedon 09-25 Absolute Lymph 0.79 X10 3/uL Low 0.83-4.51 [facility] Comment on above: Performed By: #### L 501.2450, M100.7900, L100.0100, L503.6005, L500.4050 ####[facility] [address] [place], [address] Absolute Neut 15.5 X10 3/uL High 2.0-7.7 [facility] [facility] Comment on above: Performed By: #### L 501.2450, M100.7900, L100.0100, L503.6005, L500.4050 ####[facility] [address] [place], [address] Basophils/100 WBC (Bld) 0.1 % Normal 0-1 [facility] Comment on above: Performed By: #### L 501.2450, M100.7900, L100.0100, L503.6005, L500.4050 ####[facility] [address] [place], [address] Eosinophils/100 WBC (Bld) 0.2 % Normal 0-5 [facility] Comment on above: Performed By: #### L 501.2450, M100.7900, L100.0100, L503.6005, L500.4050 ####[facility] [address] [place], [address] Erythrocyte distribution width (RBC) [Ratio] 15.8 % High 11.6-14.6 [facility] Comment on above: Performed By: #### L 501.2450, M100.7900, L100.0100, L503.6005, L500.4050 ####[facility] [address] [place], [address] Hematocrit (Bld) [Volume fraction] 35.4 % Low 40-54 [facility] Comment on above: Performed By: #### L 501.2450, M100.7900, L100.0100, L503.6005, L500.4050 ####[facility] [address] [place], [address] Hemoglobin (Bld) [Mass/Vol] 12.4 g/dL Low 13.0-16.5 [facility] Comment on above: Performed By: #### L 501.2450, M100.7900, L100.0100, L503.6005, L500.4050 ####[facility] [address] [place], [address] IG% 0.600 Normal 0.0-0.9 [facility] Comment on above: Result Comment: IG% - Immature Granulocytes (promyelocytes, myelocytes andmetamyelocytes) > 1% indicates that a LEFT SHIFT is Present. Performed By: #### L 501.2450, M100.7900, L100.0100, L503.6005, L500.4050 ####[facility] [address] [place], [address] Lymphocytes/100 WBC (Bld) 4.5 % Low 19-41 [facility] Comment on above: Performed By: #### L 501.2450, M100.7900, L100.0100, L503.6005, L500.4050 ####[facility] [address] [place], [address] MCH (RBC) [Entitic mass] 29.5 pg Normal 27.0-32.0 [facility] Comment on above: Performed By: #### L 501.2450, M100.7900, L100.0100, L503.6005, L500.4050 ####[facility] [address] [place], [address] MCHC (RBC) [Mass/Vol] 35.0 g/dL Normal 32-36 [facility] Comment on above: Performed By: #### L 501.2450, M100.7900, L100.0100, L503.6005, L500.4050 ####[facility] [address] [place], [address] MCV (RBC) [Entitic vol] 84.3 fL Normal 80-94 [facility] Comment on above: Performed By: #### L 501.2450, M100.7900, L100.0100, L503.6005, L500.4050 ####[facility] [address] [place], [address] Monocytes/100 WBC (Bld) 6.5 % Normal 0-10 [facility] Comment on above: Performed By: #### L 501.2450, M100.7900, L100.0100, L503.6005, L500.4050 ####[facility] [address] [place], [address] Neutrophils/100 WBC (Bld) 88.1 % High 47-70 [facility] Comment on above: Performed By: #### L 501.2450, M100.7900, L100.0100, L503.6005, L500.4050 ####[facility] [address] [place], [address] Nucleated RBC (Bld) [#/Vol] 0 10*3/uL Normal 0-5 [facility] Comment on above: Performed By: #### L 501.2450, M100.7900, L100.0100, L503.6005, L500.4050 ####[facility] [address] [place], [address] Platelet mean volume (Bld) [Entitic vol] 9.1 fL Normal 6.2-12.0 [facility] Comment on above: Performed By: #### L 501.2450, M100.7900, L100.0100, L503.6005, L500.4050 ####[facility] [address] [place], [address] Platelets (Bld) [#/Vol] 458 10*3/uL High 150-450 [facility] Comment on above: Performed By: #### L 501.2450, M100.7900, L100.0100, L503.6005, L500.4050 ####[facility] [address] [place], [address] RBC (Bld) [#/Vol] 4.20 10*6/uL Low 4.6-6.2 [facility] Comment on above: Performed By: #### L 501.2450, M100.7900, L100.0100, L503.6005, L500.4050 ####[facility] [address] [place], [address] RDW SD 47.7 fl High 35.1-43.9 [facility] Comment on above: Performed By: #### L 501.2450, M100.7900, L100.0100, L503.6005, L500.4050 ####[facility] [address] [place], [address] WBC (Bld) [#/Vol] 17.6 10*3/uL High 4.4-11.0 [facility] Comment on above: Performed By: #### L 501.2450, M100.7900, L100.0100, L503.6005, L500.4050 ####[facility] [address] [place], [address] CTA Abd/Pelvis W/WO Contrast on 10-17-2024 CTA Abd/Pelvis W/WO Contrast Normal [facility] Comprehensive Metabolic Prof ilon 10-17-2024 Albumin [Mass/Vol] 4.0 g/dL Normal 3.2-5.0 [facility] Comment on above: Performed By: #### L 501.2450, M100.7900, L100.0100, L503.6005, L500.4050 ####[facility] [address] [place], [address] Albumin/Globulin [Mass ratio] 1.1 {ratio} Normal 0.9-2.4 [facility] Comment on above: Performed By: #### L 501.2450, M100.7900, L100.0100, L503.6005, L500.4050 ####[facility] [address] [place], [address] ALK P 49 U/L Normal 45-117 [facility] Comment on above: Performed By: #### L 501.2450, M100.7900, L100.0100, L503.6005, L500.4050 ####[facility] [address] [place], [address] ALT [Catalytic activity/Vol] 18 U/L Normal 16-61 [facility] Comment on above: Performed By: #### L 501.2450, M100.7900, L100.0100, L503.6005, L500.4050 ####[facility] [address] [place], [address] AST [Catalytic activity/Vol] 22 U/L Normal 15-37 [facility] Comment on above: Performed By: #### L 501.2450, M100.7900, L100.0100, L503.6005, L500.4050 ####[facility] [address] [place], [address] Bilirubin [Mass/Vol] 0.40 mg/dL Normal 0.20-1.00 [facility] Comment on above: Result Comment: For patients on eltrombopag therapy, use of Dimension Oto[place] TBIL is not recommended. Performed By: #### L 501.2450, M100.7900, L100.0100, L503.6005, L500.4050 ####[facility] [address] [place], [address] BUN/CRE 11.4 RATIO Normal 10-20 [facility] Comment on above: Performed By: #### L 501.2450, M100.7900, L100.0100, L503.6005, L500.4050 ####[facility] [address] [place], [address] CA,Total 10.5 mg/dL High 8.5-10.1 [facility] Comment on above: Performed By: #### L 501.2450, M100.7900, L100.0100, L503.6005, L500.4050 ####[facility] [address] [place], [address] Chloride [Moles/Vol] 104 mmol/L Normal 98-107 [facility] Comment on above: Performed By: #### L 501.2450, M100.7900, L100.0100, L503.6005, L500.4050 ####[facility] [address] [place], [address] CO2 [Moles/Vol] 20.0 mmol/L Low 21.0-32.0 [facility] Comment on above: Performed By: #### L 501.2450, M100.7900, L100.0100, L503.6005, L500.4050 ####[facility] [address] [place], [address] Creatinine [Mass/Vol] 1.14 mg/dL Normal 0.70-1.30 [facility] Comment on above: Result Comment: The validity of the calculated GFR GFRAA in patients over70 years has not been determined. Clinical correlation isessential. Performed By: #### L 501.2450, M100.7900, L100.0100, L503.6005, L500.4050 ####[facility] [address] [place], [address] ECRCL 65.81 ml/min Normal [facility] Comment on above: Performed By: #### L 501.2450, M100.7900, L100.0100, L503.6005, L500.4050 ####[facility] [address] [place], [address] EST GFR - AA 83 mL/min Normal >60 [facility] Comment on above: Result Comment: Afri can Welsh GFR Calc Performed By: #### L 501.2450, M100.7900, L100.0100, L503.6005, L500.4050 ####[facility] [address] [place], [address] GAP 12 Normal 5-15 [facility] Comment on above: Performed By: #### L 501.2450, M100.7900, L100.0100, L503.6005, L500.4050 ####[facility] [address] [place], [address] GFR/1.73 sq M.predicted among non-blacks MDRD (S/P/Bld) [Vol rate/Area] 68 mL/min/{1.73_m2} Normal >60 [facility] Comment on above: Result Comment: Non- GFR Calc Performed By: #### L 501.2450, M100.7900, L100.0100, L503.6005, L500.4050 ####[facility] [address] [place], [address] Globulin (S) [Mass/Vol] 3.5 g/dL Normal 2.2-4.2 [facility] Comment on above: Performed By: #### L 501.2450, M100.7900, L100.0100, L503.6005, L500.4050 ####[facility] [address] [place], [address] Glucose [Mass/Vol] 149 mg/dL High 74-106 [facility] Comment on above: Result Comment: Fast ing Glucose result greater than or equal to 126 mg/dLsuggests DIABETES MELLITUS per A.D.A. criteria. Performed By: #### L 501.2450, M100.7900, L100.0100, L503.6005, L500.4050 ####[facility] [address] [place], [address] Potassium [Moles/Vol] 3.6 mmol/L Normal 3.5-5.1 [facility] Comment on above: Performed By: #### L 501.2450, M100.7900, L100.0100, L503.6005, L500.4050 ####[facility] [address] [place], [address] Sodium [Moles/Vol] 136 mmol/L Normal 136-145 [facility] Comment on above: Performed By: #### L 501.2450, M100.7900, L100.0100, L503.6005, L500.4050 ####[facility] [address] [place], [address] T PROT 7.5 g/dL Normal 6.4-8.2 [facility] Comment on above: Performed By: #### L 501.2450, M100.7900, L100.0100, L503.6005, L500.4050 ####[facility] [address] [place], [address] Urea nitrogen [Mass/Vol] 13 mg/dL Normal 7-18 [facility] Comment on above: Performed By: #### L 501.2450, M100.7900, L100.0100, L503.6005, L500.4050 ####[facility] [address] [place], [address] Emergency Department Summary on 10-17-2024 Emergency Department Summary Normal [facility] H AND P Exam - Hospitaliston 10-17-2024 H&P Exam - Hospitalist Normal [facility] HH, Hemoglobin AND Hematocri ton 10-17-2024 Hematocrit (Bld) [Volume fraction] 29.8 % Low 40-54 [facility] Comment on above: Performed By: #### L 100.0600 ####[facility] [address] [place], [address] Hemoglobin (Bld) [Mass/Vol] 10.3 g/dL Low 13.0-16.5 [facility] Comment on above: Performed By: #### L 100.0600 ####[facility] [address] [place], [address] Hematocrit (Bld) [Volume fraction] 29.5 % Low 40-54 [facility] Comment on above: Performed By: #### L 100.0600 ####[facility] [address] [place], [address] Hemoglobin (Bld) [Mass/Vol] 10.1 g/dL Low 13.0-16.5 [facility] Comment on above: Performed By: #### L 100.0600 ####[facility] [address] [place], [address] Hematocrit (Bld) [Volume fraction] 31.7 % Low 40-54 [facility] Comment on above: Performed By: #### L 100.0600 ####[facility] [address] [place], [address] Hemoglobin (Bld) [Mass/Vol] 10.5 g/dL Low 13.0-16.5 [facility] Comment on above: Performed By: #### L 100.0600 ####[facility] [address] [place], [address] Lactic Acidon 10-17-2024 Lactate [Moles/Vol] 0.7 mmol/L Normal 0.4-1.9 [facility] Comment on above: Performed By: #### L 503.6005 ####[facility] [address] [place], [address] Lactate [Moles/Vol] 2.4 mmol/L Invalid Interpretation Code 0.4-1.9 [facility] Comment on above: Order Comment: Y Result Comment: Crit ical Result(s) Called at: 03:45:31 10/17/2024 by: Domo. to [facility]. Results read back by same. Performed By: #### L 501.2450, M100.7900, L100.0100, L503.6005, L500.4050 ####[facility] [address] [place], [address] Lactic acid measurementOrder ed By: Tarun Jim on 10-17-2024 Lactic acid measurement 0.7 mmol/L 0.4-2.0 [facility] Lipaseon 10-17-2024 Lipase [Catalytic activity/Vol] 32 U/L Normal 13-75 [facility] Comment on above: Result Comment: Edilberto conn note:LIPASE revised reference range effective 23.New Lipase methodology. Expected to produce lower valuesthan the previous assay method.NEW Reference Range: 13 - 75 U/L Performed By: #### L 501.2450, M100.7900, L100.0100, L503.6005, L500.4050 ####[facility] [address] [place], [address] Lipase measurementOrdered By : Tarun Jim on 10-17-2024 Lipase measurement 32 U/L - [facility] Magnesiumon 10-17-2024 Magnesium [Mass/Vol] 1.2 mg/dL Low 1.6-2.6 [facility] Comment on above: Order Comment: Comme nts: May add to ED labsComments: may add to ED labs Performed By: #### L 505.5000, L501.5200, L501.2300, L509.7000 ####[facility] [address] [place], [address] No Panel InformationOrdered By: Iris Orozco on 10-17-2024 [facility] Phosphoruson 10-17-2024 Phosphate [Mass/Vol] 3.0 mg/dL Normal 2.5-4.9 [facility] Comment on above: Order Comment: Comme nts: May add to ED labsComments: may add to ED labs Performed By: #### L 505.5000, L501.5200, L501.2300, L509.7000 ####[facility] [address] [place], [address] Procalcitoninon 10-17-2024 Procalcitonin 0.05 ng/mL Normal 0.00-0.09 [facility] Comment on above: Result Comment: A [...] ng/mL are obtained. Performed By: #### L 505.5000, L501.5200, L501.2300, L509.7000 ####[facility] [address] [place], [address] Procalcitonin [Mass/Vol]Orde red By: Iris rOozco on 10-17-2024 Serum procalcitonin measurement 0.05 ng/mL 0.00-0.09 [facility] Quantitative urine opiates m easurementOrdered By: Iris Orozco on 10-17-2024 Quantitative urine opiates measurement Positive Abnormal [facility] Stool Occult Blood iFOBon STOB Positive Normal [facility] Comment on above: Performed By: #### L 501.2450, M100.7900, L100.0100, L503.6005, L500.4050 ####[facility] [address] [place] [address] Urine Drug Screen (VISTA)on 10-17-2024 AMPHETAMINES Negative Normal <1000 ng/mL [facility] Comment on above: Performed By: #### L 505.5000, L501.5200, L501.2300, L509.7000 ####[facility] [address] [place] [address] BARBITIURATES Negative Normal < 200 ng/mL [facility] Comment on above: Performed By: #### L 505.5000, L501.5200, L501.2300, L509.7000 ####[facility] [address] [place] [address] BENZODIAZIPINE Negative Normal < 200 ng/mL [facility] Comment on above: Performed By: #### L 505.5000, L501.5200, L501.2300, L509.7000 ####[facility] [address] [place] [address] COCAINE Negative Normal < 300 ng/mL [facility] Comment on above: Performed By: #### L 505.5000, L501.5200, L501.2300, L509.7000 ####[facility] [address] [place] [id number] ECSTACY Negative Normal < 500 ng/mL [facility] Comment on above: Performed By: #### L 505.5000, L501.5200, L501.2300, L509.7000 ####[facility] [address] [place], [address] METHADONE Negative Normal < 300 ng/mL [facility] Comment on above: Performed By: #### L 505.5000, L501.5200, L501.2300, L509.7000 ####[facility] [address] [place], [address] OPIATES Positive Abnormal < 300 ng/mL [facility] Comment on above: Performed By: #### L 505.5000, L501.5200, L501.2300, L509.7000 ####[facility] [address] [place], [address] PCP Negative Normal < 25 ng/mL [facility] Comment on above: Performed By: #### L 505.5000, L501.5200, L501.2300, L509.7000 ####[facility] [address] [place], [address] THC Positive Abnormal < 50 ng/mL [facility] Comment on above: Performed By: #### L 505.5000, L501.5200, L501.2300, L509.7000 ####[facility] [address] [place], [address] VISTA UDS PH 7 Normal [facility] Comment on above: Performed By: #### L 505.5000, L501.5200, L501.2300, L509.7000 ####[facility] [address] [place], [address] Urine amphetamine measuremen tOrdered By: Iris Orozco on 10-17-2024 Urine amphetamine measurement Negative < 25 ng/mL [facility] ALP [Catalytic activity/Vol] Ordered By: Robert Ritchie on 10-16-2024 Serum or plasma alkaline phosphatase measurement 56 U/L 45-117 [facility] ALT [Catalytic activity/Vol] Ordered By: Robert Ritchie on 10-16-2024 Serum or plasma alanine aminotransferase (ALT) measurement 18 U/L 16-61 [facility] Absolute neutrophil countOrd ered By: Robert Ritchie on 10-16-2024 Absolute neutrophil count 18.7 X10^3/uL High 2.0-7.7 [facility] Albumin [Mass/Vol]Ordered By : Robert Ritchie on 10-16-2024 Serum or plasma albumin measurement (mass/volume) 4.1 g/dL 3.2-5.0 [facility] Albumin to globulin ratioOrd ered By: Robert Ritchie on 10-16-2024 Albumin to globulin ratio 1.1 RATIO 0.9-2.4 [facility] Automated lymphocyte count a s percentage of total leukocytesOrdered By: Robert Ritchie on 10-16-2024 Automated lymphocyte count as percentage of total leukocytes 3.3 % 0-10 [facility] Basophil percentageOrdered B y: Robert Ritchie on 10-16-2024 Basophil percentage 0.2 % 0-1 [facility] Bilirubin, totalOrdered By: Robert Ritchie on 10-16-2024 Bilirubin, total 0.40 mg/dL 0.20-1.00 [facility] Blood urea nitrogen (BUN)/cr eatinine ratioOrdered By: Robert Ritchie on 10-16-2024 Blood urea nitrogen (BUN)/creatinine ratio 9.3 RATIO Low 10-20 [facility] CBC W/Diff, Automatedon 09-25 Absolute Lymph 0.67 X10 3/uL Low 0.83-4.51 [facility] Comment on above: Performed By: #### L 100.0100, L500.4050, L501.2450 ####[facility] [address] [place], [address] Absolute Neut 18.7 X10 3/uL High 2.0-7.7 [facility] Comment on above: Performed By: #### L 100.0100, L500.4050, L501.2450 ####[facility] [address] [place], [address] Basophils/100 WBC (Bld) 0.2 % Normal 0-1 [facility] Comment on above: Performed By: #### L 100.0100, L500.4050, L501.2450 ####[facility] [address] [place], [address] Eosinophils/100 WBC (Bld) 0.1 % Normal 0-5 [facility] Comment on above: Performed By: #### L 100.0100, L500.4050, L501.2450 ####[facility] [address] [place], [address] Erythrocyte distribution width (RBC) [Ratio] 15.5 % High 11.6-14.6 [facility] Comment on above: Performed By: #### L 100.0100, L500.4050, L501.2450 ####[facility] [address] [place], [address] Hematocrit (Bld) [Volume fraction] 37.7 % Low 40-54 [facility] Comment on above: Performed By: #### L 100.0100, L500.4050, L501.2450 ####[facility] [address] [place], [address] Hemoglobin (Bld) [Mass/Vol] 12.7 g/dL Low 13.0-16.5 [facility] Comment on above: Performed By: #### L 100.0100, L500.4050, L501.2450 ####[facility] [address] [place], [address] IG% 0.800 Normal 0.0-0.9 [facility] Comment on above: Result Comment: IG% - Immature Granulocytes (promyelocytes, myelocytes andmetamyelocytes) > 1% indicates that a LEFT SHIFT is Present. Performed By: #### L 100.0100, L500.4050, L501.2450 ####[facility] [address] [place], [address] Lymphocytes/100 WBC (Bld) 3.3 % Low 19-41 [facility] Comment on above: Performed By: #### L 100.0100, L500.4050, L501.2450 ####[facility] [address] [place], [address] MCH (RBC) [Entitic mass] 28.9 pg Normal 27.0-32.0 [facility] Comment on above: Performed By: #### L 100.0100, L500.4050, L501.2450 ####[facility] [address] [place], [address] MCHC (RBC) [Mass/Vol] 33.7 g/dL Normal 32-36 [facility] Comment on above: Performed By: #### L 100.0100, L500.4050, L501.2450 ####[facility] [address] [place], [address] MCV (RBC) [Entitic vol] 85.7 fL Normal 80-94 [facility] Comment on above: Performed By: #### L 100.0100, L500.4050, L501.2450 ####[facility] [address] [place], [address] Monocytes/100 WBC (Bld) 3.3 % Normal 0-10 [facility] Comment on above: Performed By: #### L 100.0100, L500.4050, L501.2450 ####[facility] [address] [place], [address] Neutrophils/100 WBC (Bld) 92.3 % High 47-70 [facility] Comment on above: Performed By: #### L 100.0100, L500.4050, L501.2450 ####[facility] [address] [place], [address] Nucleated RBC (Bld) [#/Vol] 0 10*3/uL Normal 0-5 [facility] Comment on above: Performed By: #### L 100.0100, L500.4050, L501.2450 ####[facility] [address] [place], [address] Platelet mean volume (Bld) [Entitic vol] 8.9 fL Normal 6.2-12.0 [facility] Comment on above: Performed By: #### L 100.0100, L500.4050, L501.2450 ####[facility] [address] [place], [address] Platelets (Bld) [#/Vol] 504 10*3/uL High 150-450 [facility] Comment on above: Performed By: #### L 100.0100, L500.4050, L501.2450 ####[facility] [address] [place], [address] RBC (Bld) [#/Vol] 4.40 10*6/uL Low 4.6-6.2 [facility] Comment on above: Performed By: #### L 100.0100, L500.4050, L501.2450 ####[facility] [address] [place], [address] RDW SD 48.6 fl High 35.1-43.9 [facility] Comment on above: Performed By: #### L 100.0100, L500.4050, L501.2450 ####[facility] [address] [place], [address] WBC (Bld) [#/Vol] 20.3 10*3/uL High 4.4-11.0 [facility] Comment on above: Performed By: #### L 100.0100, L500.4050, L501.2450 ####[facility] [address] [place], [address] Calcium [Mass/Vol]Ordered By : Robert Ritchie on 10-16-2024 Serum or plasma calcium measurement (mass/volume) 9.8 mg/dL 8.5-10.1 [facility] Carbon dioxide measurementOr dered By: Robert Ritchie on 10-16-2024 Carbon dioxide measurement 15.0 mmol/L Low 21.0-32.0 [facility] Chloride measurementOrdered By: Robert Ritchie on 10-16-2024 Chloride measurement 103 mmol/L 98-107 [facility] Comprehensive Metabolic Prof ilon 10-16-2024 Albumin [Mass/Vol] 4.1 g/dL Normal 3.2-5.0 [facility] Comment on above: Performed By: #### L 100.0100, L500.4050, L501.2450 ####[facility] [address] [place], [address] Albumin/Globulin [Mass ratio] 1.1 {ratio} Normal 0.9-2.4 [facility] Comment on above: Performed By: #### L 100.0100, L500.4050, L501.2450 ####[facility] [address] [place], [address] ALK P 56 U/L Normal 45-117 [facility] [facility] Comment on above: Performed By: #### L 100.0100, L500.4050, L501.2450 ####[facility] [address] [place], [address] ALT [Catalytic activity/Vol] 18 U/L Normal 16-61 [facility] Comment on above: Performed By: #### L 100.0100, L500.4050, L501.2450 ####[facility] [address] [place], [address] AST [Catalytic activity/Vol] 21 U/L Normal 15-37 [facility] Comment on above: Performed By: #### L 100.0100, L500.4050, L501.2450 ####[facility] [address] [place], [address] Bilirubin [Mass/Vol] 0.40 mg/dL Normal 0.20-1.00 [facility] Comment on above: Result Comment: For patients on eltrombopag therapy, use of Dimension Otoe TBIL is not recommended. Performed By: #### L 100.0100, L500.4050, L501.2450 ####[facility] [address] [place], [address] BUN/CRE 9.3 RATIO Low 10-20 [facility] Comment on above: Performed By: #### L 100.0100, L500.4050, L501.2450 ####[facility] [address] [place], [address] CA,Total 9.8 mg/dL Normal 8.5-10.1 [facility] Comment on above: Performed By: #### L 100.0100, L500.4050, L501.2450 ####[facility] [address] [place], [address] Chloride [Moles/Vol] 103 mmol/L Normal 98-107 [facility] Comment on above: Performed By: #### L 100.0100, L500.4050, L501.2450 ####[facility] [address] [place], [address] CO2 [Moles/Vol] 15.0 mmol/L Low 21.0-32.0 [facility] Comment on above: Performed By: #### L 100.0100, L500.4050, L501.2450 ####[facility] [address] [place], [address] Creatinine [Mass/Vol] 1.08 mg/dL Normal 0.70-1.30 [facility] Comment on above: Result Comment: The validity of the calculated GFR GFRAA in patients over70 years has not been determined. Clinical correlation isessential. Performed By: #### L 100.0100, L500.4050, L501.2450 ####[facility] [address] [place], [address] ECRCL 69.47 ml/min Normal [facility] Comment on above: Performed By: #### L 100.0100, L500.4050, L501.2450 ####[facility] [address] [place], [address] EST GFR - AA 88 mL/min Normal >60 [facility] Comment on above: Result Comment: Afri can Welsh GFR Calc Performed By: #### L 100.0100, L500.4050, L501.2450 ####[facility] [address] [place], [address] GAP 14 Normal 5-15 [facility] Comment on above: Performed By: #### L 100.0100, L500.4050, L501.2450 ####[facility] [address] [place], [address] GFR/1.73 sq M.predicted among non-blacks MDRD (S/P/Bld) [Vol rate/Area] 73 mL/min/{1.73_m2} Normal >60 [facility] Comment on above: Result Comment: Non- GFR Calc Performed By: #### L 100.0100, L500.4050, L501.2450 ####[facility] [address] [place], [address] Globulin (S) [Mass/Vol] 3.6 g/dL Normal 2.2-4.2 [facility] Comment on above: Performed By: #### L 100.0100, L500.4050, L501.2450 ####[facility] [address] [place], [address] Glucose [Mass/Vol] 178 mg/dL High 74-106 [facility] Comment on above: Result Comment: Fast ing Glucose result greater than or equal to 126 mg/dLsuggests DIABETES MELLITUS per A.D.A. criteria. Performed By: #### L 100.0100, L500.4050, L501.2450 ####[facility] [address] [place], [address] Potassium [Moles/Vol] 3.6 mmol/L Normal 3.5-5.1 [facility] Comment on above: Performed By: #### L 100.0100, L500.4050, L501.2450 ####[facility] [address] [place], [address] Sodium [Moles/Vol] 132 mmol/L Low 136-145 [facility] Comment on above: Performed By: #### L 100.0100, L500.4050, L501.2450 ####[facility] [address] [place], [address] T PROT 7.7 g/dL Normal 6.4-8.2 [facility] Comment on above: Performed By: #### L 100.0100, L500.4050, L501.2450 ####[facility] [address] [place], [address] Urea nitrogen [Mass/Vol] 10 mg/dL Normal 7-18 [facility] Comment on above: Performed By: #### L 100.0100, L500.4050, L501.2450 ####[facility] [address] [place], [address] Creatinine [Mass/Vol]Ordered By: Robert Ritchie on 10-16-2024 Serum or plasma creatinine measurement (mass/volume) 1.08 mg/dL 0.70-1.30 [facility] Emergency Department Summary on 10-16-2024 Emergency Department Summary Normal [facility] Eosinophil percentageOrdered By: Robert Ritchie on 10-16-2024 Eosinophil percentage 0.1 % 0-5 [facility] Erythrocyte distribution wid th (RBC) [Entitic vol]Ordered By: Robert Ritchie on 10-16-2024 Erythrocyte distribution width standard deviation 48.6 fl High 35.1-43.9 [facility] Erythrocyte distribution wid th (RBC) [Ratio]Ordered By: Robert Ritchie on 10-16-2024 Erythrocyte distribution width ratio 15.5 % High 11.6-14.6 [facility] Estimated glomerular filtrat ion rate (GFR) AmericanOrdered By: Robert Ritchie on 10-16-2024 Estimated glomerular filtration rate (GFR) 88 mL/min >60 [facility] Estimation of creatinine deion aranceOrdered By: Robert Ritchie on 10-16-2024 Estimation of creatinine clearance 69.47 ml/min [facility] Glomerular filtration rate ( GFR) estimationOrdered By: Robert Ritchie on 10-16-2024 Glomerular filtration rate (GFR) estimation 73 mL/min >60 [facility] Glucose measurementOrdered B y: Robert Ritchie on 10-16-2024 Glucose measurement 178 mg/dL High 74-106 [facility] Hematocrit Auto (Bld) [Volum e fraction]Ordered By: Robert Ritchie on 10-16-2024 Automated blood hematocrit (percentage) 37.7 % Low 40-54 [facility] Hemoglobin measurementOrdere d By: Robert Ritchie on 10-16-2024 Hemoglobin measurement 12.7 g/dL Low 13.0-16.5 [facility] Immature granulocytes/100 WB C Auto (Bld)Ordered By: Robert Ritchie on 10-16-2024 Automated immature granulocyte percentage 0.800 % 0.0-0.9 [facility] Lipaseon 10-16-2024 Lipase [Catalytic activity/Vol] 36 U/L Normal 13-75 [facility] Comment on above: Result Comment: Edilberto conn note:LIPASE revised reference range effective 23.New Lipase methodology. Expected to produce lower valuesthan the previous assay method.NEW Reference Range: 13 - 75 U/L Performed By: #### L 100.0100, L500.4050, L501.2450 ####[facility] [address] [place], [address] Lipase measurementOrdered By : Robert Ritchie on 10-16-2024 Lipase measurement 36 U/L 13-75 [facility] Lymphocytes Auto (Unsp spec) [#/Vol]Ordered By: Robert Ritchie on 10-16-2024 Absolute lymphocyte count 0.67 X10^3/uL Low 0.83-4.51 [facility] MCV (RBC) [Entitic vol]Order ed By: Robert Ritchie on 10-16-2024 MCV (mean corpuscular volume) determination 85.7 fL 80-94 [facility] Mean corpuscular hemoglobin (MCH) determinationOrdered By: Robert Ritchie on 10-16-2024 Mean corpuscular hemoglobin (MCH) determination 28.9 pg 27.0-32.0 [facility] Mean corpuscular hemoglobin concentration (MCHC) determinationOrdered By: Robert Ritchie on 10-16-2024 Mean corpuscular hemoglobin concentration (MCHC) determination 33.7 g/dL 32-36 [facility] Mean platelet volume determi nationOrdered By: Robert Ritchie on 10-16-2024 Mean platelet volume determination 8.9 fl 6.2-12.0 [facility] Neutrophil percentageOrdered By: Robert Ritchie on 10-16-2024 Neutrophil percentage 92.3 % High 47-70 [facility] No Panel InformationOrdered By: Robert Ritchie on 10-16-2024 21 U/L 15-37 [facility] Nucleated red blood cell per centageOrdered By: Robert Ritchie on 10-16-2024 Nucleated red blood cell percentage 0 % 0-5 [facility] Platelet countOrdered By: Emma Ritchie on 10-16-2024 Platelet count 504 K/mm3 High 150-450 [facility] Potassium measurementOrdered By: Robert Ritchie on 10-16-2024 Potassium measurement 3.6 mmol/L 3.5-5.1 [facility] RBC Auto (Bld) [#/Vol]Ordere d By: Robert Ritchie on 10-16-2024 Automated blood erythrocyte count 4.40 M/mm3 Low 4.6-6.2 [facility] Serum anion gap measurementO rdered By: Robert Ritchie on 10-16-2024 Serum anion gap measurement 14 5-15 [facility] Serum globulin measurementOr dered By: Robert Ritchie on 10-16-2024 Serum globulin measurement 3.6 g/dL 2.2-4.2 [facility] Sodium levelOrdered By: Robert Ritchie on 10-16-2024 Sodium level 132 mmol/L Low 136-145 [facility] Total proteinOrdered By: Aline Ritchie on 10-16-2024 Total protein 7.7 g/dL 6.4-8.2 [facility] Urea nitrogen [Mass/Vol]Orde red By: Robert Ritchie on 10-16-2024 Serum or plasma urea nitrogen measurement (mass/volume) 10 mg/dL 7-18 [facility] White blood cell (WBC) count Ordered By: Robert Ritchie on 10-16-2024 White blood cell (WBC) count 20.3 K/mm3 High 4.4-11.0 [facility] 12 Lead EKGon 10-03-2024 12 Lead EKG Normal [facility] Absolute neutrophil countOrd ered By: Dada Chung on 10-03-2024 Absolute neutrophil count 6.9 X10^3/uL 2.0-7.7 [facility] BNP (brain natriuretic pepti de measurement)Ordered By: Dada Chung on 10-03-2024 BNP (brain natriuretic peptide measurement) 24.1 pg/mL 0-100 [facility] BNP,B-Type NATRIURETIC PEPTI Tala 10-03-2024 Natriuretic peptide B (Bld) [Mass/Vol] 24.1 pg/mL Normal 0-100 [facility] Comment on above: Performed By: #### L 501.5200, L100.0100, L503.6620, L501.5425, L500.2500 ####[facility] [address] [place], [place], [id number] Basic Metabolic Profile (BMP )on 10-03-2024 BUN/CRE 9.1 RATIO Low 10-20 [facility] Comment on above: Order Comment: 1Y Performed By: #### L 501.5200, L100.0100, L503.6620, L501.5425, L500.2500 ####[facility] [address] [place], [address] CA,Total 8.9 mg/dL Normal 8.5-10.1 [facility] Comment on above: Order Comment: 1Y Performed By: #### L 501.5200, L100.0100, L503.6620, L501.5425, L500.2500 ####[facility] [address] [place], [address] Chloride [Moles/Vol] 105 mmol/L Normal 98-107 [facility] Comment on above: Order Comment: 1Y Performed By: #### L 501.5200, L100.0100, L503.6620, L501.5425, L500.2500 ####[facility] [address] [place], [address] CO2 [Moles/Vol] 22.0 mmol/L Normal 21.0-32.0 [facility] Comment on above: Order Comment: 1Y Performed By: #### L 501.5200, L100.0100, L503.6620, L501.5425, L500.2500 ####[facility] [address] [place], [address] Creatinine [Mass/Vol] 1.10 mg/dL Normal 0.70-1.30 [facility] Comment on above: Order Comment: 1Y Result Comment: The validity of the calculated GFR GFRAA in patients over70 years has not been determined. Clinical correlation isessential. Performed By: #### L 501.5200, L100.0100, L503.6620, L501.5425, L500.2500 ####[facility] [address] [place], [address] ECRCL 68.21 ml/min Normal [facility] Comment on above: Order Comment: 1Y Performed By: #### L 501.5200, L100.0100, L503.6620, L501.5425, L500.2500 ####[facility] [address] [place], [address] EST GFR - AA 86 mL/min Normal >60 [facility] Comment on above: Order Comment: 1Y Result Comment: Afri can Welsh GFR Calc Performed By: #### L 501.5200, L100.0100, L503.6620, L501.5425, L500.2500 ####[facility] [address] [place], [address] GAP 6 Normal 5-15 [facility] Comment on above: Order Comment: 1Y Performed By: #### L 501.5200, L100.0100, L503.6620, L501.5425, L500.2500 ####[facility] [address] [place], [address] GFR/1.73 sq M.predicted among non-blacks MDRD (S/P/Bld) [Vol rate/Area] 71 mL/min/{1.73_m2} Normal >60 [facility] Comment on above: Order Comment: 1Y Result Comment: Non- GFR Calc Performed By: #### L 501.5200, L100.0100, L503.6620, L501.5425, L500.2500 ####[facility] [address] [place], [address] Glucose [Mass/Vol] 153 mg/dL High 74-106 [facility] Comment on above: Order Comment: 1Y Result Comment: Fast ing Glucose result greater than or equal to 126 mg/dLsuggests DIABETES MELLITUS per A.D.A. criteria. Performed By: #### L 501.5200, L100.0100, L503.6620, L501.5425, L500.2500 ####[facility] [address] [place], [address] Potassium [Moles/Vol] 3.6 mmol/L Normal 3.5-5.1 [facility] Comment on above: Order Comment: 1Y Performed By: #### L 501.5200, L100.0100, L503.6620, L501.5425, L500.2500 ####[facility] [address] [place], [address] Sodium [Moles/Vol] 133 mmol/L Low 136-145 [facility] Comment on above: Order Comment: 1Y Performed By: #### L 501.5200, L100.0100, L503.6620, L501.5425, L500.2500 ####[facility] [address] [place], [address] Urea nitrogen [Mass/Vol] 10 mg/dL Normal 7-18 [facility] Comment on above: Order Comment: 1Y Performed By: #### L 501.5200, L100.0100, L503.6620, L501.5425, L500.2500 ####[facility] [address] [place], [address] Basophil percentageOrdered B y: Dada Chung on 10-03-2024 Basophil percentage 0.5 % 0-1 [facility] Blood urea nitrogen (BUN)/cr eatinine ratioOrdered By: Dada Chung on 10-03-2024 Blood urea nitrogen (BUN)/creatinine ratio 9.1 RATIO Low 10-20 [facility] CBC W/Diff, Automatedon 09-24 Absolute Lymph 2.12 X10 3/uL Normal 0.83-4.51 [facility] Comment on above: Performed By: #### L 501.5200, L100.0100, L503.6620, L501.5425, L500.2500 ####[facility] [address] [place], [address] Absolute Neut 6.9 X10 3/uL Normal 2.0-7.7 [facility] Comment on above: Performed By: #### L 501.5200, L100.0100, L503.6620, L501.5425, L500.2500 ####[facility] [address] [place], [address] Basophils/100 WBC (Bld) 0.5 % Normal 0-1 [facility] Comment on above: Performed By: #### L 501.5200, L100.0100, L503.6620, L501.5425, L500.2500 ####[facility] [address] [place], [address] Eosinophils/100 WBC (Bld) 2.6 % Normal 0-5 [facility] Comment on above: Performed By: #### L 501.5200, L100.0100, L503.6620, L501.5425, L500.2500 ####[facility] [address] [place], [address] Erythrocyte distribution width (RBC) [Ratio] 15.8 % High 11.6-14.6 [facility] Comment on above: Performed By: #### L 501.5200, L100.0100, L503.6620, L501.5425, L500.2500 ####[facility] [address] [place], [address] Hematocrit (Bld) [Volume fraction] 35.5 % Low 40-54 [facility] Comment on above: Performed By: #### L 501.5200, L100.0100, L503.6620, L501.5425, L500.2500 ####[facility] [address] [place], [address] Hemoglobin (Bld) [Mass/Vol] 12.1 g/dL Low 13.0-16.5 [facility] Comment on above: Performed By: #### L 501.5200, L100.0100, L503.6620, L501.5425, L500.2500 ####[facility] [address] [place], [address] IG% 0.600 Normal 0.0-0.9 [facility] Comment on above: Result Comment: IG% - Immature Granulocytes (promyelocytes, myelocytes andmetamyelocytes) > 1% indicates that a LEFT SHIFT is Present. Performed By: #### L 501.5200, L100.0100, L503.6620, L501.5425, L500.2500 ####[facility] [address] [place], [address] Lymphocytes/100 WBC (Bld) 21.1 % Normal 19-41 [facility] Comment on above: Performed By: #### L 501.5200, L100.0100, L503.6620, L501.5425, L500.2500 ####[facility] [address] [place], [address] MCH (RBC) [Entitic mass] 29.3 pg Normal 27.0-32.0 [facility] Comment on above: Performed By: #### L 501.5200, L100.0100, L503.6620, L501.5425, L500.2500 ####[facility] [address] [place], [address] MCHC (RBC) [Mass/Vol] 34.1 g/dL Normal 32-36 [facility] Comment on above: Performed By: #### L 501.5200, L100.0100, L503.6620, L501.5425, L500.2500 ####[facility] [address] [place], [address] MCV (RBC) [Entitic vol] 86.0 fL Normal 80-94 [facility] Comment on above: Performed By: #### L 501.5200, L100.0100, L503.6620, L501.5425, L500.2500 ####[facility] [address] [place], [address] Monocytes/100 WBC (Bld) 6.7 % Normal 0-10 [facility] Comment on above: Performed By: #### L 501.5200, L100.0100, L503.6620, L501.5425, L500.2500 ####[facility] [address] [place], [address] Neutrophils/100 WBC (Bld) 68.5 % Normal 47-70 [facility] Comment on above: Performed By: #### L 501.5200, L100.0100, L503.6620, L501.5425, L500.2500 ####[facility] [address] [place], [address] Nucleated RBC (Bld) [#/Vol] 0 10*3/uL Normal 0-5 [facility] Comment on above: Performed By: #### L 501.5200, L100.0100, L503.6620, L501.5425, L500.2500 ####[facility] [address] [place], [address] Platelet mean volume (Bld) [Entitic vol] 8.9 fL Normal 6.2-12.0 [facility] Comment on above: Performed By: #### L 501.5200, L100.0100, L503.6620, L501.5425, L500.2500 ####[facility] [address] [place], [address] Platelets (Bld) [#/Vol] 412 10*3/uL Normal 150-450 [facility] Comment on above: Performed By: #### L 501.5200, L100.0100, L503.6620, L501.5425, L500.2500 ####[facility] [address] [place], [address] RBC (Bld) [#/Vol] 4.13 10*6/uL Low 4.6-6.2 [facility] Comment on above: Performed By: #### L 501.5200, L100.0100, L503.6620, L501.5425, L500.2500 ####[facility] [address] [place], [address] RDW SD 49.2 fl High 35.1-43.9 [facility] Comment on above: Performed By: #### L 501.5200, L100.0100, L503.6620, L501.5425, L500.2500 ####[facility] [address] [place], [address] WBC (Bld) [#/Vol] 10.1 10*3/uL Normal 4.4-11.0 [facility] Comment on above: Performed By: #### L 501.5200, L100.0100, L503.6620, L501.5425, L500.2500 ####[facility] [address] [place], [address] Calcium [Mass/Vol]Ordered By : Dada Chung on 10-03-2024 Serum or plasma calcium measurement (mass/volume) 8.9 mg/dL 8.5-10.1 [facility] Carbon dioxide measurementOr dered By: Dada Chung on 10-03-2024 Carbon dioxide measurement 22.0 mmol/L 21.0-32.0 [facility] Chest 1 View (Portable)on Chest 1 View (Portable) Normal [facility] Chloride measurementOrdered By: Dada Chung on 10-03-2024 Chloride measurement 105 mmol/L 98-107 [facility] Creatinine [Mass/Vol]Ordered By: Dada Chung on 10-03-2024 Serum or plasma creatinine measurement (mass/volume) 1.10 mg/dL 0.70-1.30 [facility] Emergency Department Summary on 10-03-2024 Emergency Department Summary Normal [facility] Eosinophil percentageOrdered By: Dada Chung on 10-03-2024 Eosinophil percentage 2.6 % 0-5 [facility] Erythrocyte distribution wid th (RBC) [Entitic vol]Ordered By: Dada Chung on 10-03-2024 Erythrocyte distribution width standard deviation 49.2 fl High 35.1-43.9 [facility] Erythrocyte distribution wid th (RBC) [Ratio]Ordered By: Dada Chung on 10-03-2024 Erythrocyte distribution width ratio 15.8 % High 11.6-14.6 [facility] Estimated glomerular filtrat ion rate (GFR) AmericanOrdered By: Dada Chung on 10-03-2024 Estimated glomerular filtration rate (GFR) 86 mL/min >60 [facility] Estimation of creatinine deion aranceOrdered By: Dada Chung on 10-03-2024 Estimation of creatinine clearance 68.21 ml/min [facility] Glomerular filtration rate ( GFR) estimationOrdered By: Dada Chung on 10-03-2024 Glomerular filtration rate (GFR) estimation 71 mL/min >60 [facility] Glucose measurementOrdered B y: Dada Chung on 10-03-2024 Glucose measurement 153 mg/dL High 74-106 [facility] Hematocrit Auto (Bld) [Volum e fraction]Ordered By: Dada Chung on 10-03-2024 Automated blood hematocrit (percentage) 35.5 % Low 40-54 [facility] Hemoglobin measurementOrdere d By: Dada Chung on 10-03-2024 Hemoglobin measurement 12.1 g/dL Low 13.0-16.5 [facility] Immature granulocytes/100 WB C Auto (Bld)Ordered By: Dada Chung on 10-03-2024 Automated immature granulocyte percentage 0.600 % 0.0-0.9 [facility] L501.4020on 10-03-2024 TROPONIN-I HS 8 pg/mL Normal 3.0-78.0 [facility] Comment on above: Result Comment: Edilberto conn Note: New Test Units and Gender Specific Reference Ranges. For more information see Policy Stat Procedure Otoe High Sensitivity Troponin (TNIH) and attachments. Performed By: #### L 501.4020 ####[facility] [address] [place], [address] L501.5425on 10-03-2024 TROPONIN-I HS 6 pg/mL Normal 3.0-78.0 [facility] Comment on above: Order Comment: 1Y Result Comment: Edilberto conn Note: New Test Units and Gender Specific Reference Ranges. For more information see Policy Stat Procedure [place]e High Sensitivity Troponin (TNIH) and attachments. Performed By: #### L 501.5200, L100.0100, L503.6620, L501.5425, L500.2500 ####[facility] [address] [place], [place], [id number] Lymphocytes Auto (Unsp spec) [#/Vol]Ordered By: Dada Chung on 10-03-2024 Absolute lymphocyte count 2.12 X10^3/uL 0.83-4.51 [facility] Lymphocytes/100 WBC Auto (Un sp spec)Ordered By: Dada Chung on 10-03-2024 Automated lymphocyte count as percentage of total leukocytes 21.1 % 19-41 [facility] MCV (RBC) [Entitic vol]Order ed By: Dada Chung on 10-03-2024 MCV (mean corpuscular volume) determination 86.0 fL 80-94 [facility] Magnesiumon 10-03-2024 Magnesium [Mass/Vol] 1.2 mg/dL Low 1.6-2.6 [facility] Comment on above: Order Comment: 1Y Performed By: #### L 501.5200, L100.0100, L503.6620, L501.5425, L500.2500 ####[facility] [address] [facility] [place], [place], [id number] Magnesium measurementOrdered By: Dada Chung on 10-03-2024 Magnesium measurement 1.2 mg/dL Low 1.6-2.6 [facility] Mean corpuscular hemoglobin (MCH) determinationOrdered By: Dada Chung on 10-03-2024 Mean corpuscular hemoglobin (MCH) determination 29.3 pg 27.0-32.0 [facility] Mean corpuscular hemoglobin concentration (MCHC) determinationOrdered By: Dada Chung on 10-03-2024 Mean corpuscular hemoglobin concentration (MCHC) determination 34.1 g/dL 32-36 [facility] Mean platelet volume determi nationOrdered By: Dada Chung on 10-03-2024 Mean platelet volume determination 8.9 fl 6.2-12.0 [facility] Monocyte percentageOrdered B y: Dada Chung on 10-03-2024 Monocyte percentage 6.7 % 0-10 [facility] Neutrophil percentageOrdered By: Dada Chung on 10-03-2024 Neutrophil percentage 68.5 % 47-70 [facility] Nucleated red blood cell per centageOrdered By: Dada Chung on 10-03-2024 Nucleated red blood cell percentage 0 % 0-5 [facility] Platelet countOrdered By: Hema Chung on 10-03-2024 Platelet count 412 K/mm3 150-450 [facility] Potassium measurementOrdered By: Dada Chung on 10-03-2024 Potassium measurement 3.6 mmol/L 3.5-5.1 [facility] RBC Auto (Bld) [#/Vol]Ordere d By: Dada Chung on 10-03-2024 Automated blood erythrocyte count 4.13 M/mm3 Low 4.6-6.2 [facility] Serum anion gap measurementO rdered By: Dada Chung on 10-03-2024 Serum anion gap measurement 6 5-15 [facility] Sodium levelOrdered By: Dada Chung on 10-03-2024 Sodium level 133 mmol/L Low 136-145 [facility] Troponin IOrdered By: Dada noonan on 10-03-2024 Troponin I 8 pg/mL 3.0-78.0 [facility] Urea nitrogen [Mass/Vol]Orde red By: Dada Chung on 10-03-2024 Serum or plasma urea nitrogen measurement (mass/volume) 10 mg/dL 7-18 [facility] White blood cell (WBC) count Ordered By: Dada Chung on 10-03-2024 White blood cell (WBC) count 10.1 K/mm3 4.4-11.0 [facility] Office Visit Reporton 2023 Office Visit Report Normal [facility] Urine Cultureon 09-05-2024 URC Below infection leve l. Mixed Gram Positive Organisms [place] Count 1000-10,000 MIXC Mixed contaminants. Submit a new specimen if indicated. Normal [facility] Comment on above: Performed By: #### M 100.2200 ####[facility] [address] [place], [address] ALP [Catalytic activity/Vol] Ordered By: Iris Ernesto on 09-03-2024 Serum or plasma alkaline phosphatase measurement 44 U/L Low 45-117 [facility] ALT [Catalytic activity/Vol] Ordered By: Iris White on 09-03-2024 Serum or plasma alanine aminotransferase (ALT) measurement 18 U/L 16-61 [facility] Absolute neutrophil countOrd ered By: Iris White on 09-03-2024 Absolute neutrophil count 12.9 X10^3/uL High 2.0-7.7 [facility] Albumin [Mass/Vol]Ordered By : [facility] on 09-03-2024 Serum or plasma albumin measurement (mass/volume) 3.7 g/dL 3.2-5.0 [facility] Albumin to globulin ratioOrd ered By: [facility] White on 09-03-2024 Albumin to globulin ratio 1.2 RATIO 0.9-2.4 [facility] Basophil percentageOrdered B y: Iris Orozco on 09-03-2024 Basophil percentage 0.1 % 0-1 [facility] Bilirubin, totalOrdered By: [facility] Ernesto on 09-03-2024 Bilirubin, total 0.30 mg/dL 0.20-1.00 [facility] Blood urea nitrogen (BUN)/cr eatinine ratioOrdered By: [facility] Ernesto on 09-03-2024 Blood urea nitrogen (BUN)/creatinine ratio 14.0 RATIO 10-20 [facility] CBC W/Diff, Automatedon 08-24 PATH REV Reviewed Normal [facility] Comment on above: Result Comment: Neut rophilic leukocytosis.Normocytic anemia.Clinical correlation necessary.Chaz Kat M.D. 09/03/24 AMENDED REPORT 09/03/24 3998 PATH REV previously reported as: January Performed By: #### L 100.0100, L500.4050 ####[facility] [address] [place], [address] Calcium [Mass/Vol]Ordered By : Iris Orozco on 09-03-2024 Serum or plasma calcium measurement (mass/volume) 9.5 mg/dL 8.5-10.1 [facility] Carbon dioxide measurementOr dered By: Iris Orozco on 09-03-2024 Carbon dioxide measurement 21.0 mmol/L 21.0-32.0 [facility] Chloride measurementOrdered By: Iris Orozco on 09-03-2024 Chloride measurement 106 mmol/L 98-107 [facility] Comprehensive Metabolic Prof ilon 09-03-2024 Albumin [Mass/Vol] 3.7 g/dL Normal 3.2-5.0 [facility] Comment on above: Performed By: #### L 100.0100, L500.4050 ####[facility] [address] [place], [address] Albumin/Globulin [Mass ratio] 1.2 {ratio} Normal 0.9-2.4 [facility] Comment on above: Performed By: #### L 100.0100, L500.4050 ####[facility] [address] [place], [address] ALK P 44 U/L Low 45-117 [facility] Comment on above: Performed By: #### L 100.0100, L500.4050 ####[facility] [address] [place], [address] ALT [Catalytic activity/Vol] 18 U/L Normal 16-61 [facility] Comment on above: Performed By: #### L 100.0100, L500.4050 ####[facility] [address] [place], [address] AST [Catalytic activity/Vol] 36 U/L Normal 15-37 [facility] Comment on above: Performed By: #### L 100.0100, L500.4050 ####[facility] [address] [place], [address] Bilirubin [Mass/Vol] 0.30 mg/dL Normal 0.20-1.00 [facility] Comment on above: Result Comment: For patients on eltrombopag therapy, use of Dimension Otoe TBIL is not recommended. Performed By: #### L 100.0100, L500.4050 ####[facility] [address] [place], [address] BUN/CRE 14.0 RATIO Normal 10-20 [facility] Comment on above: Performed By: #### L 100.0100, L500.4050 ####[facility] [address] [place], [address] CA,Total 9.5 mg/dL Normal 8.5-10.1 [facility] Comment on above: Performed By: #### L 100.0100, L500.4050 ####[facility] [address] [place], [address] Chloride [Moles/Vol] 106 mmol/L Normal 98-107 [facility] Comment on above: Performed By: #### L 100.0100, L500.4050 ####[facility] [address] [place], [address] CO2 [Moles/Vol] 21.0 mmol/L Normal 21.0-32.0 [facility] Comment on above: Performed By: #### L 100.0100, L500.4050 ####[facility] [address] [place], [address] Creatinine [Mass/Vol] 1.07 mg/dL Normal 0.70-1.30 [facility] Comment on above: Result Comment: The validity of the calculated GFR GFRAA in patients over70 years has not been determined. Clinical correlation isessential. Performed By: #### L 100.0100, L500.4050 ####[facility] [address] [place], [address] ECRCL 70.12 ml/min Normal [facility] Comment on above: Performed By: #### L 100.0100, L500.4050 ####[facility] [address] [place], [address] EST GFR - AA 89 mL/min Normal >60 [facility] Comment on above: Result Comment: Afri can Welsh GFR Calc Performed By: #### L 100.0100, L500.4050 ####[facility] [address] [place], [address] GAP 8 Normal 5-15 [facility] Comment on above: Performed By: #### L 100.0100, L500.4050 ####[facility] [address] [place], [address] GFR/1.73 sq M.predicted among non-blacks MDRD (S/P/Bld) [Vol rate/Area] 73 mL/min/{1.73_m2} Normal >60 [facility] Comment on above: Result Comment: Non- GFR Calc Performed By: #### L 100.0100, L500.4050 ####[facility] [address] [place], [address] Globulin (S) [Mass/Vol] 3.2 g/dL Normal 2.2-4.2 [facility] Comment on above: Performed By: #### L 100.0100, L500.4050 ####[facility] [address] [place], [address] Glucose [Mass/Vol] 109 mg/dL High 74-106 [facility] Comment on above: Result Comment: Fast ing Glucose result from 100 to 125 mg/dLsuggests IMPAIRED HOMEOSTASIS per A.D.A. criteria. Performed By: #### L 100.0100, L500.4050 ####[facility] [address] [place], [address] Potassium [Moles/Vol] 4.3 mmol/L Normal 3.5-5.1 [facility] Comment on above: Performed By: #### L 100.0100, L500.4050 ####[facility] [address] [place], [address] Sodium [Moles/Vol] 135 mmol/L Low 136-145 [facility] Comment on above: Performed By: #### L 100.0100, L500.4050 ####[facility] [address] [place], [address] T PROT 6.9 g/dL Normal 6.4-8.2 [facility] Comment on above: Performed By: #### L 100.0100, L500.4050 ####[facility] [address] [place], [address] Urea nitrogen [Mass/Vol] 15 mg/dL Normal 7-18 [facility] Comment on above: Performed By: #### L 100.0100, L500.4050 ####[facility] [address] [place], [address] Creatinine [Mass/Vol]Ordered By: Iris Orozco on 09-03-2024 Serum or plasma creatinine measurement (mass/volume) 1.07 mg/dL 0.70-1.30 [facility] Eosinophil percentageOrdered By: Iris White on 09-03-2024 Eosinophil percentage 0.0 % 0-5 [facility] Erythrocyte distribution wid th (RBC) [Entitic vol]Ordered By: Iris White on 09-03-2024 Erythrocyte distribution width standard deviation 48.6 fl High 35.1-43.9 [facility] Erythrocyte distribution wid th (RBC) [Ratio]Ordered By: White on 09-03-2024 Erythrocyte distribution width ratio 15.3 % High 11.6-14.6 [facility] Estimated glomerular filtrat ion rate (GFR) AmericanOrdered By: Iris White on 09-03-2024 Estimated glomerular filtration rate (GFR) 89 mL/min >60 [facility] Estimation of creatinine deion aranceOrdered By: Iris Orozco on 09-03-2024 Estimation of creatinine clearance 70.12 ml/min [facility] Glomerular filtration rate ( GFR) estimationOrdered By: Iris Orozco on 09-03-2024 Glomerular filtration rate (GFR) estimation 73 mL/min >60 [facility] Glucose measurementOrdered B y: Iris Orozco on 09-03-2024 Glucose measurement 109 mg/dL High 74-106 [facility] Hematocrit Auto (Bld) [Volum e fraction]Ordered By: Iris Orozco on 09-03-2024 Automated blood hematocrit (percentage) 31.5 % Low 40-54 [facility] Hemoglobin measurementOrdere d By: Iris Orozco on 09-03-2024 Hemoglobin measurement 10.6 g/dL Low 13.0-16.5 [facility] Immature granulocytes/100 WB C Auto (Bld)Ordered By: Iris Orozco on 09-03-2024 Automated immature granulocyte percentage 0.700 % 0.0-0.9 [facility] Lymphocytes Auto (Unsp spec) [#/Vol]Ordered By: Iris Orozco on 09-03-2024 Absolute lymphocyte count 1.29 X10^3/uL 0.83-4.51 [facility] Lymphocytes/100 WBC Auto (Un sp spec)Ordered By: Iris Orozco on 09-03-2024 Automated lymphocyte count as percentage of total leukocytes 8.0 % Low 19-41 [facility] MCV (RBC) [Entitic vol]Order ed By: Iris Orozco on 09-03-2024 MCV (mean corpuscular volume) determination 86.8 fL 80-94 [facility] Magnesiumon 09-03-2024 Magnesium [Mass/Vol] 2.6 mg/dL Normal 1.6-2.6 [facility] Comment on above: Performed By: #### L 501.520 ####[facility] [address] [place], [place], [address] Magnesium measurementOrdered By: Iris Orozco on 09-03-2024 Magnesium measurement 2.6 mg/dL 1.6-2.6 [facility] Manual differential comment Sami (Bld) [Interp]Ordered By: Iris Orozco on 09-03-2024 Blood manual differential comment interpretation (narrative result) SCANNED [facility] Mean corpuscular hemoglobin (MCH) determinationOrdered By: Iris Ernesto on 09-03-2024 Mean corpuscular hemoglobin (MCH) determination 29.2 pg 27.0-32.0 [facility] Mean corpuscular hemoglobin concentration (MCHC) determinationOrdered By: Ernesto on 09-03-2024 Mean corpuscular hemoglobin concentration (MCHC) determination 33.7 g/dL 32-36 [facility] Mean platelet volume determi nationOrdered By: Iris Ernesto on 09-03-2024 Mean platelet volume determination 9.4 fl 6.2-12.0 [facility] Monocyte percentageOrdered B y: Iris Ernesto on 09-03-2024 Monocyte percentage 11.8 % High 0-10 [facility] Neutrophil percentageOrdered By: Iris Ernesto on 09-03-2024 Neutrophil percentage 79.4 % High 47-70 [facility] No Panel InformationOrdered By: Iris Orozco on 09-03-2024 36 U/L 15-37 [facility] Nucleated red blood cell per centageOrdered By: Ernesto on 09-03-2024 Nucleated red blood cell percentage 0 % 0-5 [facility] Pathologist review Sami (Unsp spec) [Interp]Ordered By: Iris Orozco on 09-03-2024 Review by pathologist Reviewed [facility] Platelet countOrdered By: Vijaya Orozco on 09-03-2024 Platelet count 390 K/mm3 150-450 [facility] Potassium measurementOrdered By: Iris Orozco on 09-03-2024 Potassium measurement 4.3 mmol/L 3.5-5.1 [facility] RBC Auto (Bld) [#/Vol]Ordere d By: Iris Orozco on 09-03-2024 Automated blood erythrocyte count 3.63 M/mm3 Low 4.6-6.2 [facility] Serum anion gap measurementO rdered By: Iris Orozco on 09-03-2024 Serum anion gap measurement 8 5-15 [facility] Serum globulin measurementOr dered By: Iris Orozco on 09-03-2024 Serum globulin measurement 3.2 g/dL 2.2-4.2 [facility] Sodium levelOrdered By: Yissel Orozco on 09-03-2024 Sodium level 135 mmol/L Low 136-145 [facility] Total proteinOrdered By: Gonzalo umn White on 09-03-2024 Total protein 6.9 g/dL 6.4-8.2 [facility] Urea nitrogen [Mass/Vol]Orde red By: Iris White on 09-03-2024 Serum or plasma urea nitrogen measurement (mass/volume) 15 mg/dL 7-18 [facility] Urine Drug Screen (VISTA)on 09-03-2024 VISTA UDS PH 7 Normal [facility] Comment on above: Result Comment: AMENDED REPORT 09/03/24212 VISTA UDS PH previously reported as: 6 Performed By: #### L 505.5000 ####[facility] [address] [place], [place], [address] White blood cell (WBC) count Ordered By: Iris Orozco on 09-03-2024 White blood cell (WBC) count 16.2 K/mm3 High 4.4-11.0 [facility] Abdomen/Pelvis W IV Cont ONL Yon 09-02-2024 Abdomen/Pelvis W IV Cont ONLY Normal [facility] Amorphous sediment LM Ql (Ur ine sed)Ordered By: Trenton Ruiz on 09-02-2024 Amorphous sediment detection in urine sediment by light microscopy 1+ [facility] Bacteria LM.HPF (Urine sed) [#/Area]Ordered By: Trenton Ruiz on 09-02-2024 Urine sediment bacteria count by microscopy (number/high power field) 1+ /hpf None Seen [facility] CBC W/Diff, Automatedon 08-24 Anisocytosis Ql (Bld) 1+ Normal [facility] Comment on above: Performed By: #### L 500.4050, L503.6005, L100.0100, L501.2450 ####[facility] [address] [place], [place], [id number] HYPOCHROMASIA 1+ Normal [facility] Comment on above: Performed By: #### L 500.4050, L503.6005, L100.0100, L501.2450 ####[facility] [address] [place], [address] PLT EST SLT INC Normal ADEQ [facility] Comment on above: Performed By: #### L 500.4050, L503.6005, L100.0100, L501.2450 ####[facility] [address] [place], [address] STOMATOCYTE RARE Normal [facility] Comment on above: Performed By: #### L 500.4050, L503.6005, L100.0100, L501.2450 ####[facility] [address] [place], [address] Clarity (U)Ordered By: Remus Ungur on 09-02-2024 Urine clarity Clear Clear [facility] Coarse Granular Casts LM Ql (Urine sed)Ordered By: Remus Ungur on 09-02-2024 Urine coarse granular cast detection 0-5 SEEN /lpf 0-5 /lpf [facility] Color (U)Ordered By: Remus U ngur on 09-02-2024 Urine color determination Chikis Yellow [facility] Comprehensive Metabolic Prof ilon 09-02-2024 Albumin [Mass/Vol] 4.6 g/dL Normal 3.2-5.0 [facility] Comment on above: Performed By: #### L 500.4050, L503.6005, L100.0100, L501.2450 ####[facility] [address] [place], [address] Albumin/Globulin [Mass ratio] 1.2 {ratio} Normal 0.9-2.4 [facility] Comment on above: Performed By: #### L 500.4050, L503.6005, L100.0100, L501.2450 ####[facility] [address] [place], [address] ALK P 59 U/L Normal 45-117 [facility] Comment on above: Performed By: #### L 500.4050, L503.6005, L100.0100, L501.2450 ####[facility] [address] [place], [address] ALT [Catalytic activity/Vol] 15 U/L Low 16-61 [facility] Comment on above: Performed By: #### L 500.4050, L503.6005, L100.0100, L501.2450 ####[facility] [address] [place], [address] AST [Catalytic activity/Vol] 22 U/L Normal 15-37 [facility] Comment on above: Performed By: #### L 500.4050, L503.6005, L100.0100, L501.2450 ####[facility] [address] [place], [address] Bilirubin [Mass/Vol] 0.60 mg/dL Normal 0.20-1.00 [facility] Comment on above: Result Comment: For patients on eltrombopag therapy, use of Dimension Otoe TBIL is not recommended. Performed By: #### L 500.4050, L503.6005, L100.0100, L501.2450 ####[facility] [address] [place], [address] BUN/CRE 9.2 RATIO Low 10-20 [facility] Comment on above: Performed By: #### L 500.4050, L503.6005, L100.0100, L501.2450 ####[facility] [address] [place], [address] CA,Total 10.8 mg/dL High 8.5-10.1 [facility] Comment on above: Performed By: #### L 500.4050, L503.6005, L100.0100, L501.2450 ####[facility] [address] [place], [address] Chloride [Moles/Vol] 103 mmol/L Normal 98-107 [facility] Comment on above: Performed By: #### L 500.4050, L503.6005, L100.0100, L501.2450 ####[facility] [address] [place], [address] CO2 [Moles/Vol] 19.0 mmol/L Low 21.0-32.0 [facility] Comment on above: Performed By: #### L 500.4050, L503.6005, L100.0100, L501.2450 ####[facility] [address] [place], [address] Creatinine [Mass/Vol] 1.52 mg/dL High 0.70-1.30 [facility] Comment on above: Result Comment: The validity of the calculated GFR GFRAA in patients over70 years has not been determined. Clinical correlation isessential. Performed By: #### L 500.4050, L503.6005, L100.0100, L501.2450 ####[facility] [address] [place], [address] ECRCL 49.36 ml/min Normal [facility] Comment on above: Performed By: #### L 500.4050, L503.6005, L100.0100, L501.2450 ####[facility] [address] [place], [address] EST GFR - AA 59 mL/min Low >60 [facility] Comment on above: Result Comment: Afri can Welsh GFR Calc Performed By: #### L 500.4050, L503.6005, L100.0100, L501.2450 ####[facility] [address] [place], [address] GAP 13 Normal 5-15 [facility] Comment on above: Performed By: #### L 500.4050, L503.6005, L100.0100, L501.2450 ####[facility] [address] [place], [address] GFR/1.73 sq M.predicted among non-blacks MDRD (S/P/Bld) [Vol rate/Area] 49 mL/min/{1.73_m2} Low >60 [facility] Comment on above: Result Comment: Non- GFR Calc Performed By: #### L 500.4050, L503.6005, L100.0100, L501.2450 ####[facility] [address] [place], [address] Globulin (S) [Mass/Vol] 3.7 g/dL Normal 2.2-4.2 [facility] Comment on above: Performed By: #### L 500.4050, L503.6005, L100.0100, L501.2450 ####[facility] [address] [place], [address] Glucose [Mass/Vol] 165 mg/dL High 74-106 [facility] Comment on above: Result Comment: Fast ing Glucose result greater than or equal to 126 mg/dLsuggests DIABETES MELLITUS per A.D.A. criteria. Performed By: #### L 500.4050, L503.6005, L100.0100, L501.2450 ####[facility] [address] [place], [address] Potassium [Moles/Vol] 4.1 mmol/L Normal 3.5-5.1 [facility] Comment on above: Performed By: #### L 500.4050, L503.6005, L100.0100, L501.2450 ####[facility] [address] [place], [address] Sodium [Moles/Vol] 135 mmol/L Low 136-145 [facility] Comment on above: Performed By: #### L 500.4050, L503.6005, L100.0100, L501.2450 ####[facility] [address] [place], [address] T PROT 8.3 g/dL High 6.4-8.2 [facility] Comment on above: Performed By: #### L 500.4050, L503.6005, L100.0100, L501.2450 ####[facility] [address] [place], [address] Urea nitrogen [Mass/Vol] 14 mg/dL Normal 7-18 [facility] Comment on above: Performed By: #### L 500.4050, L503.6005, L100.0100, L501.2450 ####[facility] [address] [place], [address] Emergency Department Summary on 09-02-2024 Emergency Department Summary Normal [facility] Glucose Ql (U)Ordered By: Hailee Ruiz on 09-02-2024 Urine glucose detection Normal mg/dl Normal [facility] H AND P Exam - Hospitaliston 09-02-2024 H&P Exam - Hospitalist Normal [facility] Hypochromatic red blood cell detectionOrdered By: Trenton Ruiz on 09-02-2024 Hypochromatic red blood cell detection 1+ [facility] Lactic Acidon 09-02-2024 Lactate [Moles/Vol] 1.6 mmol/L Normal 0.4-1.9 [facility] Comment on above: Performed By: #### L 503.6005 ####[facility] [address] [place], [address] Lactate [Moles/Vol] 6.4 mmol/L Invalid Interpretation Code 0.4-1.9 [facility] Comment on above: Order Comment: Y Result Comment: Crit ical Result(s) Called at: 19:08:55 09/02/2024 by: MAXIMILIAN TO SUSU. Results read back by same. Performed By: #### L 500.4050, L503.6005, L100.0100, L501.2450 ####[facility] [address] [place], [place], [id number] Lactic acid measurementOrder ed By: Trenton Ruiz on 09-02-2024 Lactic acid measurement 1.6 mmol/L 0.4-2.0 [facility] Leukocyte esterase Test stri p Ql (U)Ordered By: Trenton Ruiz on 09-02-2024 Urine leukocyte esterase detection by dipstick 25 /ul High Negative [facility] Lipaseon 09-02-2024 Lipase [Catalytic activity/Vol] 31 U/L Normal 13-75 [facility] Comment on above: Result Comment: Edilberto conn note:LIPASE revised reference range effective 23.New Lipase methodology. Expected to produce lower valuesthan the previous assay method.NEW Reference Range: 13 - 75 U/L Performed By: #### L 500.4050, L503.6005, L100.0100, L501.2450 ####[facility] [address] [place], [address] Lipase measurementOrdered By : Trenton Ruiz on 09-02-2024 Lipase measurement 31 U/L 13-75 [facility] Magnesiumon 09-02-2024 Magnesium [Mass/Vol] 1.2 mg/dL Low 1.6-2.6 [facility] Comment on above: Order Comment: Comme nts: May add to ED labsComments: may add to ED labs Performed By: #### L 501.2300, L509.7000, L501.5200 ####[facility] [address] [place], [place], [address] Microscopic analysis of urin e for red blood cells (RBC)Ordered By: Trenton Ruiz on 09-02-2024 Microscopic analysis of urine for red blood cells (RBC) 5-10 SEEN /hpf 0-5 [facility] No Panel InformationOrdered By: Iris Orozco on 09-02-2024 [facility] Phosphoruson 09-02-2024 Phosphate [Mass/Vol] 3.6 mg/dL Normal 2.5-4.9 [facility] Comment on above: Order Comment: Comme nts: May add to ED labsComments: may add to ED labs Performed By: #### L 501.2300, L509.7000, L501.5200 ####[facility] [address] [place], [place], [id number] Phosphorus measurementOrdere d By: Iris Orozco on 09-02-2024 Phosphorus measurement 3.6 mg/dL 2.5-4.9 [facility] Platelets LM Ql (Bld)Ordered By: Remus Ruiz on 09-02-2024 Platelet estimate SLT INC ADEQ [facility] Procalcitoninon 09-02-2024 Procalcitonin 0.07 ng/mL Normal 0.00-0.09 [facility] Comment on above: Result Comment: A [...] are obtained. Performed By: #### L 501.2300, L509.7000, L501.5200 ####[facility] [address] [place], [place], [address] Procalcitonin [Mass/Vol]Orde red By: Iris Orozco on 09-02-2024 Serum procalcitonin measurement 0.07 ng/mL 0.00-0.09 [facility] Protein Test strip Ql (U)Ord ered By: Remus Ungmarge on 09-02-2024 Urine protein assay by test strip, semi-quantitative 100 mg/dl High Negative [facility] Specific gravity (U) [Rel de nsity]Ordered By: Trenton Sara on 09-02-2024 Urine specific gravity measurement 1.025 1.002-1.03 0 [facility] Squamous epithelial cells de tection in urine sediment by light microscopyOrdered By: Myla Sara on 09-02-2024 Squamous epithelial cells detection in urine sediment by light microscopy 0 SEEN /hpf [facility] Stomatocytes LM Ql (Bld)Orde red By: Myla Sara on 09-02-2024 Blood stomatocytes detection by light microscopy RARE [facility] Urinalysis, Completeon 09-02 AMORPHOUS 1+ Normal [facility] Comment on above: Order Comment: COLOR OF URINE MAY AFFECT DIPSTICK RESULTS.CLEAN CATCH Performed By: #### L 400.0001 ####[facility] [address] [facility] [address] BACTERIA 1+ /hpf Normal None Seen [facility] Comment on above: Order Comment: COLOR OF URINE MAY AFFECT DIPSTICK RESULTS.CLEAN CATCH Performed By: #### L 400.0001 ####[facility] [address] [place], [address] CAST,COARSE GR 0-5 SEEN Normal 0-5 /lpf [facility] Comment on above: Order Comment: COLOR OF URINE MAY AFFECT DIPSTICK RESULTS.CLEAN CATCH Performed By: #### L 400.0001 ####[facility] [address] [place], [address] RBC 5-10 SEEN Normal 0-5 [facility] Comment on above: Order Comment: COLOR OF URINE MAY AFFECT DIPSTICK RESULTS.CLEAN CATCH Performed By: #### L 400.0001 ####[facility] [address] [place], [address] WBC 0-5 SEEN Normal 0-5 [facility] Comment on above: Order Comment: COLOR OF URINE MAY AFFECT DIPSTICK RESULTS.CLEAN CATCH Performed By: #### L 400.0001 ####[facility] [address] [place], [address] EPI,SQUAMOUS 0 SEEN Normal 0-5 [facility] Comment on above: Order Comment: COLOR OF URINE MAY AFFECT DIPSTICK RESULTS.CLEAN CATCH Performed By: #### L 400.0001 ####[facility] [address] [place], [address] Mucus Ql (Urine sed) [address] [facility] Comment on above: Order Comment: COLOR OF URINE MAY AFFECT DIPSTICK RESULTS.CLEAN CATCH Performed By: #### L 400.0001 ####[facility] [address] [place], [address] Urine blood detectionOrdered By: Trenton Ruiz on 09-02-2024 Urine blood detection 150 /ul High Negative [facility] Urine cultureOrdered By: Aut umn White on 09-02-2024 Urine culture Positive Abnormal [facility] Urine ketones detection by t est stripOrdered By: Trenton Ruiz on 09-02-2024 Urine ketones detection by test strip Negative < 25 ng/mL [facility] Urine methylenedioxymethamph etamine (MDMA) measurementOrdered By: Iris White on 09-02-2024 Urine methylenedioxymethamphet amine (MDMA) measurement Positive High < 50 ng/mL [facility] Urine total bilirubin detect ion by test stripOrdered By: Trenton Ruiz on 09-02-2024 Urine total bilirubin detection by test strip 1 mg/dL High Normal [facility] White blood cell countOrdere d By: Trenton Ruiz on 09-02-2024 White blood cell count 0-5 SEEN /hpf 0-5 [facility] pH (U)Ordered By: Trenton Haney r on 09-02-2024 Urine pH 5.0 5.0 - 8.0 [facility] Office Visit Reporton 2023 Office Visit Report Normal [facility] Office Visit Reporton 2023 Office Visit Report Normal [facility] Basic Metabolic Profile (BMP )on 07-10-2024 BUN/CRE 12.1 RATIO Normal 07-13 [facility] Comment on above: Performed By: #### L 100.0100, L500.2500, L501.2450, L500.3400 ####[facility] [address] [place], [address] CA,Total 9.6 mg/dL Normal 8.5-10.1 [facility] Comment on above: Performed By: #### L 100.0100, L500.2500, L501.2450, L500.3400 ####[facility] [address] [place], [address] Chloride [Moles/Vol] 101 mmol/L Normal 98-107 [facility] Comment on above: Performed By: #### L 100.0100, L500.2500, L501.2450, L500.3400 ####[facility] [address] [place], [address] CO2 [Moles/Vol] 18.0 mmol/L Low 21.0-32.0 [facility] Comment on above: Performed By: #### L 100.0100, L500.2500, L501.2450, L500.3400 ####[facility] [address] [place], [address] Creatinine [Mass/Vol] 1.00 mg/dL Normal 0.70-1.30 [facility] Comment on above: Result Comment: The validity of the calculated GFR GFRAA in patients over70 years has not been determined. Clinical correlation isessential. Performed By: #### L 100.0100, L500.2500, L501.2450, L500.3400 ####[facility] [address] [place], [address] ECRCL 75.03 ml/min Normal [facility] Comment on above: Performed By: #### L 100.0100, L500.2500, L501.2450, L500.3400 ####[facility] [address] [place], [address] EST GFR - AA 97 mL/min Normal >60 [facility] Comment on above: Result Comment: Afri can Welsh GFR Calc Performed By: #### L 100.0100, L500.2500, L501.2450, L500.3400 ####[facility] [address] [place], [address] GAP 10 Normal 5-15 [facility] Comment on above: Performed By: #### L 100.0100, L500.2500, L501.2450, L500.3400 ####[facility] [address] [place], [address] GFR/1.73 sq M.predicted among non-blacks MDRD (S/P/Bld) [Vol rate/Area] 80 mL/min/{1.73_m2} Normal >60 [facility] Comment on above: Result Comment: Non- GFR Calc Performed By: #### L 100.0100, L500.2500, L501.2450, L500.3400 ####[facility] [address] [place], [address] Glucose [Mass/Vol] 136 mg/dL High 74-106 [facility] Comment on above: Result Comment: Fast ing Glucose result greater than or equal to 126 mg/dLsuggests DIABETES MELLITUS per A.D.A. criteria. Performed By: #### L 100.0100, L500.2500, L501.2450, L500.3400 ####[facility] [address] [place], [address] Potassium [Moles/Vol] 4.0 mmol/L Normal 3.5-5.1 [facility] Comment on above: Result Comment: Slig ht Hemolysis, Result may be falsely increased. Performed By: #### L 100.0100, L500.2500, L501.2450, L500.3400 ####[facility] [address] [place], [address] Sodium [Moles/Vol] 129 mmol/L Low 136-145 [facility] Comment on above: Performed By: #### L 100.0100, L500.2500, L501.2450, L500.3400 ####[facility] [address] [place], [address] Urea nitrogen [Mass/Vol] 12 mg/dL Normal 7-18 [facility] Comment on above: Performed By: #### L 100.0100, L500.2500, L501.2450, L500.3400 ####[facility] [address] [place], [address] CBC W/Diff, Automatedon 06-24 Absolute Lymph 0.35 X10 3/uL Low 0.83-4.51 [facility] Comment on above: Performed By: #### L 300.3900, L100.0100, L500.4050, L501.2450, L300.4310 ####[facility] [address] [place], [address] Absolute Neut 13.7 X10 3/uL High 2.0-7.7 [facility] Comment on above: Performed By: #### L 300.3900, L100.0100, L500.4050, L501.2450, L300.4310 ####[facility] [address] [place], [address] Basophils/100 WBC (Bld) 0.1 % Normal 0-1 [facility] Comment on above: Performed By: #### L 300.3900, L100.0100, L500.4050, L501.2450, L300.4310 ####[facility] [address] [place], [address] Eosinophils/100 WBC (Bld) 0.0 % Normal 0-5 [facility] Comment on above: Performed By: #### L 300.3900, L100.0100, L500.4050, L501.2450, L300.4310 ####[facility] [address] [place], [address] Erythrocyte distribution width (RBC) [Ratio] 14.7 % High 11.6-14.6 [facility] Comment on above: Performed By: #### L 300.3900, L100.0100, L500.4050, L501.2450, L300.4310 ####[facility] [address] [place], [address] Hematocrit (Bld) [Volume fraction] 36.6 % Low 40-54 [facility] Comment on above: Performed By: #### L 300.3900, L100.0100, L500.4050, L501.2450, L300.4310 ####[facility] [address] [place], [address] Hemoglobin (Bld) [Mass/Vol] 12.3 g/dL Low 13.0-16.5 [facility] Comment on above: Performed By: #### L 300.3900, L100.0100, L500.4050, L501.2450, L300.4310 ####[facility] [address] [place], [address] IG% 0.900 Normal 0.0-0.9 [facility] Comment on above: Result Comment: IG% - Immature Granulocytes (promyelocytes, myelocytes andmetamyelocytes) > 1% indicates that a LEFT SHIFT is Present. Performed By: #### L 300.3900, L100.0100, L500.4050, L501.2450, L300.4310 ####[facility] [address] [place], [address] Lymphocytes/100 WBC (Bld) 2.4 % Low 19-41 [facility] Comment on above: Performed By: #### L 300.3900, L100.0100, L500.4050, L501.2450, L300.4310 ####[facility] [address] [place], [address] MCH (RBC) [Entitic mass] 29.3 pg Normal 27.0-32.0 [facility] Comment on above: Performed By: #### L 300.3900, L100.0100, L500.4050, L501.2450, L300.4310 ####[facility] [address] [place], [address] MCHC (RBC) [Mass/Vol] 33.6 g/dL Normal 32-36 [facility] Comment on above: Performed By: #### L 300.3900, L100.0100, L500.4050, L501.2450, L300.4310 ####[facility] [address] [place], [address] MCV (RBC) [Entitic vol] 87.1 fL Normal 80-94 [facility] Comment on above: Performed By: #### L 300.3900, L100.0100, L500.4050, L501.2450, L300.4310 ####[facility] [address] [place], [address] Monocytes/100 WBC (Bld) 3.1 % Normal 0-10 [facility] Comment on above: Performed By: #### L 300.3900, L100.0100, L500.4050, L501.2450, L300.4310 ####[facility] [address] [place], [address] Neutrophils/100 WBC (Bld) 93.5 % High 47-70 [facility] Comment on above: Performed By: #### L 300.3900, L100.0100, L500.4050, L501.2450, L300.4310 ####[facility] [address] [place], [address] Nucleated RBC (Bld) [#/Vol] 0 10*3/uL Normal 0-5 [facility] Comment on above: Performed By: #### L 300.3900, L100.0100, L500.4050, L501.2450, L300.4310 ####[facility] [address] [place], [address] Performed By: #### L 100.0100, L500.2500, L501.2450, L500.3400 ####[facility] [address] [place], [address] Platelet mean volume (Bld) [Entitic vol] 9.0 fL Normal 6.2-12.0 [facility] Comment on above: Performed By: #### L 300.3900, L100.0100, L500.4050, L501.2450, L300.4310 ####[facility] [address] [place], [address] Platelets (Bld) [#/Vol] 508 10*3/uL High 150-450 [facility] Comment on above: Performed By: #### L 300.3900, L100.0100, L500.4050, L501.2450, L300.4310 ####[facility] [address] [place], [address] RBC (Bld) [#/Vol] 4.20 10*6/uL Low 4.6-6.2 [facility] Comment on above: Performed By: #### L 300.3900, L100.0100, L500.4050, L501.2450, L300.4310 ####[facility] [address] [place], [address] RDW SD 47.5 fl High 35.1-43.9 [facility] Comment on above: Performed By: #### L 300.3900, L100.0100, L500.4050, L501.2450, L300.4310 ####[facility] [address] [place], [address] WBC (Bld) [#/Vol] 14.7 10*3/uL High 4.4-11.0 [facility] Comment on above: Performed By: #### L 300.3900, L100.0100, L500.4050, L501.2450, L300.4310 ####[facility] [address] [place], [address] Absolute Lymph 1.49 X10 3/uL Normal 0.83-4.51 [facility] Comment on above: Performed By: #### L 100.0100, L500.2500, L501.2450, L500.3400 ####[facility] [address] [place], [address] Absolute Neut 16.2 X10 3/uL High 2.0-7.7 [facility] Comment on above: Performed By: #### L 100.0100, L500.2500, L501.2450, L500.3400 ####[facility] [address] [place], [address] Basophils/100 WBC (Bld) 0.4 % Normal 0-1 [facility] Comment on above: Performed By: #### L 100.0100, L500.2500, L501.2450, L500.3400 ####[facility] [address] [place], [address] Eosinophils/100 WBC (Bld) 1.4 % Normal 0-5 [facility] Comment on above: Performed By: #### L 100.0100, L500.2500, L501.2450, L500.3400 ####[facility] [address] [place], [address] Erythrocyte distribution width (RBC) [Ratio] 14.9 % High 11.6-14.6 [facility] Comment on above: Performed By: #### L 100.0100, L500.2500, L501.2450, L500.3400 ####[facility] [address] [place], [address] Hematocrit (Bld) [Volume fraction] 40.0 % Normal 40-54 [facility] Comment on above: Performed By: #### L 100.0100, L500.2500, L501.2450, L500.3400 ####[facility] [address] [place], [address] Hemoglobin (Bld) [Mass/Vol] 13.4 g/dL Normal 13.0-16.5 [facility] Comment on above: Performed By: #### L 100.0100, L500.2500, L501.2450, L500.3400 ####[facility] [address] [place], [address] IG% 1.100 High 0.0-0.9 [facility] Comment on above: Result Comment: IG% - Immature Granulocytes (promyelocytes, myelocytes andmetamyelocytes) > 1% indicates that a LEFT SHIFT is Present. Performed By: #### L 100.0100, L500.2500, L501.2450, L500.3400 ####[facility] [address] [place], [address] Lymphocytes/100 WBC (Bld) 7.7 % Low 19-41 [facility] Comment on above: Performed By: #### L 100.0100, L500.2500, L501.2450, L500.3400 ####[facility] [address] [place], [address] MCH (RBC) [Entitic mass] 30.2 pg Normal 27.0-32.0 [facility] Comment on above: Performed By: #### L 100.0100, L500.2500, L501.2450, L500.3400 ####[facility] [address] [place], [address] MCHC (RBC) [Mass/Vol] 33.5 g/dL Normal 32-36 [facility] Comment on above: Performed By: #### L 100.0100, L500.2500, L501.2450, L500.3400 ####[facility] [address] [place], [address] MCV (RBC) [Entitic vol] 90.3 fL Normal 80-94 [facility] Comment on above: Performed By: #### L 100.0100, L500.2500, L501.2450, L500.3400 ####[facility] [address] [place], [address] Monocytes/100 WBC (Bld) 6.2 % Normal 0-10 [facility] Comment on above: Performed By: #### L 100.0100, L500.2500, L501.2450, L500.3400 ####[facility] [address] [place], [address] Neutrophils/100 WBC (Bld) 83.2 % High 47-70 [facility] Comment on above: Performed By: #### L 100.0100, L500.2500, L501.2450, L500.3400 ####[facility] [address] [place], [address] Platelet mean volume (Bld) [Entitic vol] 8.8 fL Normal 6.2-12.0 [facility] Comment on above: Performed By: #### L 100.0100, L500.2500, L501.2450, L500.3400 ####[facility] [address] [place], [address] Platelets (Bld) [#/Vol] 475 10*3/uL High 150-450 [facility] Comment on above: Performed By: #### L 100.0100, L500.2500, L501.2450, L500.3400 ####[facility] [address] [place], [address] RBC (Bld) [#/Vol] 4.43 10*6/uL Low 4.6-6.2 [facility] Comment on above: Performed By: #### L 100.0100, L500.2500, L501.2450, L500.3400 ####[facility] [address] [place], [address] RDW SD 49.8 fl High 35.1-43.9 [facility] Comment on above: Performed By: #### L 100.0100, L500.2500, L501.2450, L500.3400 ####[facility] [address] [place], [address] WBC (Bld) [#/Vol] 19.4 10*3/uL High 4.4-11.0 [facility] Comment on above: Performed By: #### L 100.0100, L500.2500, L501.2450, L500.3400 ####[facility] [address] [place], [address] Comprehensive Metabolic Prof [facility] 07-10-2024 Albumin [Mass/Vol] 3.9 g/dL Normal 3.2-5.0 [facility] Comment on above: Performed By: #### L 300.3900, L100.0100, L500.4050, L501.2450, L300.4310 ####[facility] [address] [place], [address] Albumin/Globulin [Mass ratio] 1.1 {ratio} Normal 0.9-2.4 [facility] Comment on above: Performed By: #### L 300.3900, L100.0100, L500.4050, L501.2450, L300.4310 ####[facility] [address] [place], [address] ALK P 45 U/L Normal 45-117 [facility] Comment on above: Performed By: #### L 300.3900, L100.0100, L500.4050, L501.2450, L300.4310 ####[facility] [address] [place], [address] ALT [Catalytic activity/Vol] 17 U/L Normal 16-61 [facility] Comment on above: Performed By: #### L 300.3900, L100.0100, L500.4050, L501.2450, L300.4310 ####[facility] [address] [place], [address] AST [Catalytic activity/Vol] 27 U/L Normal 15-37 [facility] Comment on above: Performed By: #### L 300.3900, L100.0100, L500.4050, L501.2450, L300.4310 ####[facility] [address] [place], [address] Bilirubin [Mass/Vol] 0.40 mg/dL Normal 0.20-1.00 [facility] Comment on above: Result Comment: For patients on eltrombopag therapy, use of Dimension [place] TBIL is not recommended. Performed By: #### L 300.3900, L100.0100, L500.4050, L501.2450, L300.4310 ####[facility] [address] [place], [address] BUN/CRE 8.8 RATIO Low 10-20 [facility] Comment on above: Performed By: #### L 300.3900, L100.0100, L500.4050, L501.2450, L300.4310 ####[facility] [address] [place], [address] CA,Total 9.4 mg/dL Normal 8.5-10.1 [facility] Comment on above: Performed By: #### L 300.3900, L100.0100, L500.4050, L501.2450, L300.4310 ####[facility] [address] [place], [address] Chloride [Moles/Vol] 102 mmol/L Normal 98-107 [facility] Comment on above: Performed By: #### L 300.3900, L100.0100, L500.4050, L501.2450, L300.4310 ####[facility] [address] [place], [address] CO2 [Moles/Vol] 17.0 mmol/L Low 21.0-32.0 [facility] Comment on above: Performed By: #### L 300.3900, L100.0100, L500.4050, L501.2450, L300.4310 ####[facility] [address] [place], [address] Creatinine [Mass/Vol] 1.02 mg/dL Normal 0.70-1.30 [facility] Comment on above: Result Comment: The validity of the calculated GFR GFRAA in patients over70 years has not been determined. Clinical correlation isessential. Performed By: #### L 300.3900, L100.0100, L500.4050, L501.2450, L300.4310 ####[facility] [address] [place], [address] ECRCL 73.56 ml/min Normal [facility] Comment on above: Performed By: #### L 300.3900, L100.0100, L500.4050, L501.2450, L300.4310 ####[facility] [address] [place], [address] EST GFR - AA 94 mL/min Normal >60 [facility] Comment on above: Result Comment: Afri can Welsh GFR Calc Performed By: #### L 300.3900, L100.0100, L500.4050, L501.2450, L300.4310 ####[facility] [address] [place], [address] GAP 11 Normal 5-15 [facility] Comment on above: Performed By: #### L 300.3900, L100.0100, L500.4050, L501.2450, L300.4310 ####[facility] [address] [place], [address] GFR/1.73 sq M.predicted among non-blacks MDRD (S/P/Bld) [Vol rate/Area] 78 mL/min/{1.73_m2} Normal >60 [facility] Comment on above: Result Comment: Non- GFR Calc Performed By: #### L 300.3900, L100.0100, L500.4050, L501.2450, L300.4310 ####[facility] [address] [place], [address] Globulin (S) [Mass/Vol] 3.4 g/dL Normal 2.2-4.2 [facility] Comment on above: Performed By: #### L 300.3900, L100.0100, L500.4050, L501.2450, L300.4310 ####[facility] [address] [place], [address] Glucose [Mass/Vol] 144 mg/dL High 74-106 [facility] Comment on above: Result Comment: Fast ing Glucose result greater than or equal to 126 mg/dLsuggests DIABETES MELLITUS per A.D.A. criteria. Performed By: #### L 300.3900, L100.0100, L500.4050, L501.2450, L300.4310 ####[facility] [address] [place], [address] Potassium [Moles/Vol] 3.8 mmol/L Normal 3.5-5.1 [facility] Comment on above: Performed By: #### L 300.3900, L100.0100, L500.4050, L501.2450, L300.4310 ####[facility] [address] [place], [address] Sodium [Moles/Vol] 130 mmol/L Low 136-145 [facility] Comment on above: Performed By: #### L 300.3900, L100.0100, L500.4050, L501.2450, L300.4310 ####[facility] [address] [place], [address] T PROT 7.3 g/dL Normal 6.4-8.2 [facility] Comment on above: Performed By: #### L 300.3900, L100.0100, L500.4050, L501.2450, L300.4310 ####[facility] [address] [place], [address] Urea nitrogen [Mass/Vol] 9 mg/dL Normal 7-18 [facility] Comment on above: Performed By: #### L 300.3900, L100.0100, L500.4050, L501.2450, L300.4310 ####[facility] [address] [place], [address] Emergency Department Summary on 07-10-2024 Emergency Department Summary Normal [facility] Emergency Department Summary Normal [facility] Lipaseon 07-10-2024 Lipase [Catalytic activity/Vol] 37 U/L Normal 13-75 [facility] Comment on above: Result Comment: Edilberto conn note:LIPASE revised reference range effective 23.New Lipase methodology. Expected to produce lower valuesthan the previous assay method.NEW Reference Range: 13 - 75 U/L Performed By: #### L 300.3900, L100.0100, L500.4050, L501.2450, L300.4310 ####[facility] [address] [place], [address] Lipase [Catalytic activity/Vol] 56 U/L Normal 13-75 [facility] Comment on above: Result Comment: Edilberto conn note:LIPASE revised reference range effective 23.New Lipase methodology. Expected to produce lower valuesthan the previous assay method.NEW Reference Range: 13 - 75 U/L Performed By: #### L 100.0100, L500.2500, L501.2450, L500.3400 ####[facility] [address] [place], [address] Liver Profileon 07-10-2024 Albumin [Mass/Vol] 4.0 g/dL Normal 3.2-5.0 [facility] Comment on above: Performed By: #### L 100.0100, L500.2500, L501.2450, L500.3400 ####[facility] [address] [place], [address] ALK P 60 U/L Normal 45-117 [facility] Comment on above: Performed By: #### L 100.0100, L500.2500, L501.2450, L500.3400 ####[facility] [address] [place], [address] ALT [Catalytic activity/Vol] 19 U/L Normal 16-61 [facility] Comment on above: Performed By: #### L 100.0100, L500.2500, L501.2450, L500.3400 ####[facility] [address] [place], [address] AST [Catalytic activity/Vol] 23 U/L Normal 15-37 [facility] Comment on above: Result Comment: Slig ht Hemolysis, Result may be falsely increased. Performed By: #### L 100.0100, L500.2500, L501.2450, L500.3400 ####[facility] [address] [place], [address] Bilirubin [Mass/Vol] 0.40 mg/dL Normal 0.20-1.00 [facility] Comment on above: Result Comment: For patients on eltrombopag therapy, use of Dimension Otoe TBIL is not recommended. Performed By: #### L 100.0100, L500.2500, L501.2450, L500.3400 ####[facility] [address] [place], [address] Bilirubin.direct [Mass/Vol] 0.11 mg/dL Normal 0.00-0.30 [facility] Comment on above: Performed By: #### L 100.0100, L500.2500, L501.2450, L500.3400 ####[facility] [address] [place], [address] Globulin (S) [Mass/Vol] 3.5 g/dL Normal 2.2-4.2 [facility] Comment on above: Performed By: #### L 100.0100, L500.2500, L501.2450, L500.3400 ####[facility] [address] [place], [address] T PROT 7.5 g/dL Normal 6.4-8.2 [facility] Comment on above: Performed By: #### L 100.0100, L500.2500, L501.2450, L500.3400 ####[facility] [address] [place], [address] Partial Thromboplast Timeon 07-10-2024 aPTT Coag (Bld) [Time] 27.7 s Normal 24.1-36.2 [facility] Comment on above: Performed By: #### L 300.3900, L100.0100, L500.4050, L501.2450, L300.4310 ####[facility] [address] [place], [address] Prothrombin Time w/INRon INR Coag (PPP) [Relative time] 1.0 {INR} Normal [facility] Comment on above: Performed By: #### L 300.3900, L100.0100, L500.4050, L501.2450, L300.4310 ####[facility] [address] [place], [address] PT Coag (PPP) [Time] 13.5 s Normal 11.7-14.9 [facility] Comment on above: Performed By: #### L 300.3900, L100.0100, L500.4050, L501.2450, L300.4310 ####[facility] [address] [place], [address] Stool Occult Blood iFOBon STOB Positive Normal [facility] Comment on above: Performed By: #### M 100.7900 ####[facility] [address] [place], [address] 12 Lead EKGon 06-30-2024 12 Lead EKG Normal [facility] Abdomen/Pelvis W IV Cont ONL Yon 06-30-2024 Abdomen/Pelvis W IV Cont ONLY Normal [facility] Basic Metabolic Profile (BMP )on 06-30-2024 BUN/CRE 11.5 RATIO Normal 10-20 [facility] Comment on above: Order Comment: 'TROP ' Serial specimen #1, #2 or #3: 1 Performed By: #### L 501.4020, L500.2500, L100.0100 ####[facility] [address] [place], [address] CA,Total 9.3 mg/dL Normal 8.5-10.1 [facility] Comment on above: Order Comment: 'TROP ' Serial specimen #1, #2 or #3: 1 Performed By: #### L 501.4020, L500.2500, L100.0100 ####[facility] [address] [place], [address] Chloride [Moles/Vol] 101 mmol/L Normal 98-107 [facility] Comment on above: Order Comment: 'TROP ' Serial specimen #1, #2 or #3: 1 Performed By: #### L 501.4020, L500.2500, L100.0100 ####[facility] [address] [place], [address] CO2 [Moles/Vol] 16.0 mmol/L Low 21.0-32.0 [facility] Comment on above: Order Comment: 'TROP ' Serial specimen #1, #2 or #3: 1 Performed By: #### L 501.4020, L500.2500, L100.0100 ####[facility] [address] [place], [address] Creatinine [Mass/Vol] 1.04 mg/dL Normal 0.70-1.30 [facility] Comment on above: Order Comment: 'TROP ' Serial specimen #1, #2 or #3: 1 Result Comment: The validity of the calculated GFR GFRAA in patients over70 years has not been determined. Clinical correlation isessential. Performed By: #### L 501.4020, L500.2500, L100.0100 ####[facility] [address] [place], [address] ECRCL 72.14 ml/min Normal [facility] Comment on above: Order Comment: 'TROP ' Serial specimen #1, #2 or #3: 1 Performed By: #### L 501.4020, L500.2500, L100.0100 ####[facility] [address] [place], [address] EST GFR - AA 92 mL/min Normal >60 [facility] Comment on above: Order Comment: 'TROP ' Serial specimen #1, #2 or #3: 1 Result Comment: Afri can Welsh GFR Calc Performed By: #### L 501.4020, L500.2500, L100.0100 ####[facility] [address] [place], [address] GAP 14 Normal 5-15 [facility] Comment on above: Order Comment: 'TROP ' Serial specimen #1, #2 or #3: 1 Performed By: #### L 501.4020, L500.2500, L100.0100 ####[facility] [address] [place], [address] GFR/1.73 sq M.predicted among non-blacks MDRD (S/P/Bld) [Vol rate/Area] 76 mL/min/{1.73_m2} Normal >60 [facility] Comment on above: Order Comment: 'TROP ' Serial specimen #1, #2 or #3: 1 Result Comment: Non- GFR Calc Performed By: #### L 501.4020, L500.2500, L100.0100 ####[facility] [address] [place], [address] Glucose [Mass/Vol] 158 mg/dL High 74-106 [facility] Comment on above: Order Comment: 'TROP ' Serial specimen #1, #2 or #3: 1 Result Comment: Fast ing Glucose result greater than or equal to 126 mg/dLsuggests DIABETES MELLITUS per A.D.A. criteria. Performed By: #### L 501.4020, L500.2500, L100.0100 ####[facility] [address] [place], [address] Potassium [Moles/Vol] 3.7 mmol/L Normal 3.5-5.1 [facility] Comment on above: Order Comment: 'TROP ' Serial specimen #1, #2 or #3: 1 Performed By: #### L 501.4020, L500.2500, L100.0100 ####[facility] [address] [place], [address] Sodium [Moles/Vol] 132 mmol/L Low 136-145 [facility] Comment on above: Order Comment: 'TROP ' Serial specimen #1, #2 or #3: 1 Performed By: #### L 501.4020, L500.2500, L100.0100 ####[facility] [address] [place], [address] Urea nitrogen [Mass/Vol] 12 mg/dL Normal 7-18 [facility] Comment on above: Order Comment: 'TROP ' Serial specimen #1, #2 or #3: 1 Performed By: #### L 501.4020, L500.2500, L100.0100 ####[facility] [address] [place], [address] CBC W/Diff, Automatedon 10-0 7-2023 Absolute Lymph 0.59 X10 3/uL Low 0.83-4.51 [facility] Comment on above: Performed By: #### L 501.4020, L500.2500, L100.0100 ####[facility] [address] [place], [address] Absolute Neut 14.0 X10 3/uL High 2.0-7.7 [facility] Comment on above: Performed By: #### L 501.4020, L500.2500, L100.0100 ####[facility] [address] [place], [address] Basophils/100 WBC (Bld) 0.1 % Normal 0-1 [facility] Comment on above: Performed By: #### L 501.4020, L500.2500, L100.0100 ####[facility] [address] [place], [address] Eosinophils/100 WBC (Bld) 0.1 % Normal 0-5 [facility] Comment on above: Performed By: #### L 501.4020, L500.2500, L100.0100 ####[facility] [address] [place], [address] Erythrocyte distribution width (RBC) [Ratio] 14.5 % Normal 11.6-14.6 [facility] Comment on above: Performed By: #### L 501.4020, L500.2500, L100.0100 ####[facility] [address] [place], [address] Hematocrit (Bld) [Volume fraction] 36.8 % Low 40-54 [facility] Comment on above: Performed By: #### L 501.4020, L500.2500, L100.0100 ####[facility] [address] [place], [address] Hemoglobin (Bld) [Mass/Vol] 12.4 g/dL Low 13.0-16.5 [facility] Comment on above: Performed By: #### L 501.4020, L500.2500, L100.0100 ####[facility] [address] [place], [address] IG% 1.100 High 0.0-0.9 [facility] Comment on above: Result Comment: IG% - Immature Granulocytes (promyelocytes, myelocytes andmetamyelocytes) > 1% indicates that a LEFT SHIFT is Present. Performed By: #### L 501.4020, L500.2500, L100.0100 ####[facility] [address] [place], [address] Lymphocytes/100 WBC (Bld) 3.9 % Low 19-41 [facility] Comment on above: Performed By: #### L 501.4020, L500.2500, L100.0100 ####[facility] [address] [place], [address] MCH (RBC) [Entitic mass] 30.0 pg Normal 27.0-32.0 [facility] Comment on above: Performed By: #### L 501.4020, L500.2500, L100.0100 ####[facility] [address] [place], [address] MCHC (RBC) [Mass/Vol] 33.7 g/dL Normal 32-36 [facility] Comment on above: Performed By: #### L 501.4020, L500.2500, L100.0100 ####[facility] [address] [place], [address] MCV (RBC) [Entitic vol] 88.9 fL Normal 80-94 [facility] Comment on above: Performed By: #### L 501.4020, L500.2500, L100.0100 ####[facility] [address] [place], [address] Monocytes/100 WBC (Bld) 3.2 % Normal 0-10 [facility] Comment on above: Performed By: #### L 501.4020, L500.2500, L100.0100 ####[facility] [address] [place], [address] Neutrophils/100 WBC (Bld) 91.6 % High 47-70 [facility] Comment on above: Performed By: #### L 501.4020, L500.2500, L100.0100 ####[facility] [address] [place], [address] Nucleated RBC (Bld) [#/Vol] 0 10*3/uL Normal 0-5 [facility] Comment on above: Performed By: #### L 501.4020, L500.2500, L100.0100 ####[facility] [address] [place], [address] Platelet mean volume (Bld) [Entitic vol] 9.2 fL Normal 6.2-12.0 [facility] Comment on above: Performed By: #### L 501.4020, L500.2500, L100.0100 ####[facility] [address] [place], [address] Platelets (Bld) [#/Vol] 449 10*3/uL Normal 150-450 [facility] Comment on above: Performed By: #### L 501.4020, L500.2500, L100.0100 ####[facility] [address] [place], [address] RBC (Bld) [#/Vol] 4.14 10*6/uL Low 4.6-6.2 [facility] Comment on above: Performed By: #### L 501.4020, L500.2500, L100.0100 ####[facility] [address] [place], [address] RDW SD 46.6 fl High 35.1-43.9 [facility] Comment on above: Performed By: #### L 501.4020, L500.2500, L100.0100 ####[facility] [address] [place], [address] WBC (Bld) [#/Vol] 15.2 10*3/uL High 4.4-11.0 [facility] Comment on above: Performed By: #### L 501.4020, L500.2500, L100.0100 ####[facility] [address] [place], [address] Emergency Department Summary on 06-30-2024 Emergency Department Summary Normal [facility] L501.4020on 06-30-2024 TROPONIN-I HS 20 pg/mL Normal 3.0-78.0 [facility] Comment on above: Order Comment: 'TROP ' Serial specimen #1, #2 or #3: 1 Result Comment: Plea se Note: New Test Units and Gender Specific Reference Ranges. For more information see Policy Stat Procedure Otoe High Sensitivity Troponin (TNIH) and attachments. Performed By: #### L 501.4020, L500.2500, L100.0100 ####[facility] [address] [place], [address] Basic Metabolic Profile (BMP )on 06-29-2024 BUN/CRE 15.0 RATIO Normal 10-20 [facility] Comment on above: Performed By: #### L 501.2450, L100.0100, L500.3400, L500.2500 ####[facility] [address] [place], [address] CA,Total 8.8 mg/dL Normal 8.5-10.1 [facility] Comment on above: Performed By: #### L 501.2450, L100.0100, L500.3400, L500.2500 ####[facility] [address] [place], [address] Chloride [Moles/Vol] 102 mmol/L Normal 98-107 [facility] Comment on above: Performed By: #### L 501.2450, L100.0100, L500.3400, L500.2500 ####[facility] [address] [place], [address] CO2 [Moles/Vol] 21.0 mmol/L Normal 21.0-32.0 [facility] Comment on above: Performed By: #### L 501.2450, L100.0100, L500.3400, L500.2500 ####[facility] [address] [place], [address] Creatinine [Mass/Vol] 0.93 mg/dL Normal 0.70-1.30 [facility] Comment on above: Result Comment: The validity of the calculated GFR GFRAA in patients over70 years has not been determined. Clinical correlation isessential. Performed By: #### L 501.2450, L100.0100, L500.3400, L500.2500 ####[facility] [address] [place], [address] ECRCL 80.68 ml/min Normal [facility] Comment on above: Performed By: #### L 501.2450, L100.0100, L500.3400, L500.2500 ####[facility] [address] [place], [address] EST GFR - AA 104 mL/min Normal >60 [facility] Comment on above: Result Comment: Afri can Welsh GFR Calc Performed By: #### L 501.2450, L100.0100, L500.3400, L500.2500 ####[facility] [address] [place], [address] GAP 7 Normal 5-15 [facility] Comment on above: Performed By: #### L 501.2450, L100.0100, L500.3400, L500.2500 ####[facility] [address] [place], [address] GFR/1.73 sq M.predicted among non-blacks MDRD (S/P/Bld) [Vol rate/Area] 86 mL/min/{1.73_m2} Normal >60 [facility] Comment on above: Result Comment: Non- GFR Calc Performed By: #### L 501.2450, L100.0100, L500.3400, L500.2500 ####[facility] [address] [place], [address] Glucose [Mass/Vol] 107 mg/dL High 74-106 [facility] Comment on above: Result Comment: Fast ing Glucose result from 100 to 125 mg/dLsuggests IMPAIRED HOMEOSTASIS per A.D.A. criteria. Performed By: #### L 501.2450, L100.0100, L500.3400, L500.2500 ####[facility] [address] [place], [address] Potassium [Moles/Vol] 4.7 mmol/L Normal 3.5-5.1 [facility] Comment on above: Result Comment: Mode rate Hemolysis, Result may be falsely increased. Performed By: #### L 501.2450, L100.0100, L500.3400, L500.2500 ####[facility] [address] [place], [address] Sodium [Moles/Vol] 130 mmol/L Low 136-145 [facility] Comment on above: Performed By: #### L 501.2450, L100.0100, L500.3400, L500.2500 ####[facility] [address] [place], [address] Urea nitrogen [Mass/Vol] 14 mg/dL Normal 7-18 [facility] Comment on above: Performed By: #### L 501.2450, L100.0100, L500.3400, L500.2500 ####[facility] [address] [place], [address] CBC W/Diff, Automatedon 10-0 6-2023 Absolute Lymph 0.65 X10 3/uL Low 0.83-4.51 [facility] Comment on above: Performed By: #### L 501.2450, L100.0100, L500.3400, L500.2500 ####[facility] [address] [place], [address] Absolute Neut 9.4 X10 3/uL High 2.0-7.7 [facility] Comment on above: Performed By: #### L 501.2450, L100.0100, L500.3400, L500.2500 ####[facility] [address] [place], [address] Basophils/100 WBC (Bld) 0.2 % Normal 0-1 [facility] Comment on above: Performed By: #### L 501.2450, L100.0100, L500.3400, L500.2500 ####[facility] [address] [place], [address] Eosinophils/100 WBC (Bld) 0.1 % Normal 0-5 [facility] Comment on above: Performed By: #### L 501.2450, L100.0100, L500.3400, L500.2500 ####[facility] [address] [place], [address] Erythrocyte distribution width (RBC) [Ratio] 14.5 % Normal 11.6-14.6 [facility] Comment on above: Performed By: #### L 501.2450, L100.0100, L500.3400, L500.2500 ####[facility] [address] [place], [address] Hematocrit (Bld) [Volume fraction] 35.3 % Low 40-54 [facility] Comment on above: Performed By: #### L 501.2450, L100.0100, L500.3400, L500.2500 ####[facility] [address] [place], [address] Hemoglobin (Bld) [Mass/Vol] 11.7 g/dL Low 13.0-16.5 [facility] Comment on above: Performed By: #### L 501.2450, L100.0100, L500.3400, L500.2500 ####[facility] [address] [place], [address] IG% 0.800 Normal 0.0-0.9 [facility] Comment on above: Result Comment: IG% - Immature Granulocytes (promyelocytes, myelocytes andmetamyelocytes) > 1% indicates that a LEFT SHIFT is Present. Performed By: #### L 501.2450, L100.0100, L500.3400, L500.2500 ####[facility] [address] [place], [address] Lymphocytes/100 WBC (Bld) 6.2 % Low 19-41 [facility] Comment on above: Performed By: #### L 501.2450, L100.0100, L500.3400, L500.2500 ####[facility] [address] [place], [address] MCH (RBC) [Entitic mass] 29.5 pg Normal 27.0-32.0 [facility] Comment on above: Performed By: #### L 501.2450, L100.0100, L500.3400, L500.2500 ####[facility] [address] [place], [address] MCHC (RBC) [Mass/Vol] 33.1 g/dL Normal 32-36 [facility] Comment on above: Performed By: #### L 501.2450, L100.0100, L500.3400, L500.2500 ####[facility] [address] [place], [address] MCV (RBC) [Entitic vol] 89.1 fL Normal 80-94 [facility] Comment on above: Performed By: #### L 501.2450, L100.0100, L500.3400, L500.2500 ####[facility] [address] [place], [address] Monocytes/100 WBC (Bld) 3.5 % Normal 0-10 [facility] Comment on above: Performed By: #### L 501.2450, L100.0100, L500.3400, L500.2500 ####[facility] [address] [place], [address] Neutrophils/100 WBC (Bld) 89.2 % High 47-70 [facility] Comment on above: Performed By: #### L 501.2450, L100.0100, L500.3400, L500.2500 ####[facility] [address] [place], [address] Nucleated RBC (Bld) [#/Vol] 0 10*3/uL Normal 0-5 [facility] Comment on above: Performed By: #### L 501.2450, L100.0100, L500.3400, L500.2500 ####[facility] [address] [place], [address] Platelet mean volume (Bld) [Entitic vol] 9.1 fL Normal 6.2-12.0 [facility] Comment on above: Performed By: #### L 501.2450, L100.0100, L500.3400, L500.2500 ####[facility] [address] [place], [address] Platelets (Bld) [#/Vol] 345 10*3/uL Normal 150-450 [facility] Comment on above: Performed By: #### L 501.2450, L100.0100, L500.3400, L500.2500 ####[facility] [address] [place], [address] RBC (Bld) [#/Vol] 3.96 10*6/uL Low 4.6-6.2 [facility] Comment on above: Performed By: #### L 501.2450, L100.0100, L500.3400, L500.2500 ####[facility] [address] [place], [address] RDW SD 47.0 fl High 35.1-43.9 [facility] Comment on above: Performed By: #### L 501.2450, L100.0100, L500.3400, L500.2500 ####[facility] [address] [place], [address] WBC (Bld) [#/Vol] 10.5 10*3/uL Normal 4.4-11.0 [facility] Comment on above: Performed By: #### L 501.2450, L100.0100, L500.3400, L500.2500 ####[facility] [address] [place], [address] Emergency Department Summary on 06-29-2024 Emergency Department Summary Normal [facility] Lipaseon 06-29-2024 Lipase [Catalytic activity/Vol] 27 U/L Normal 13-75 [facility] Comment on above: Result Comment: Edilberto conn note:LIPASE revised reference range effective 23.New Lipase methodology. Expected to produce lower valuesthan the previous assay method.NEW Reference Range: 13 - 75 U/L Performed By: #### L 501.2450, L100.0100, L500.3400, L500.2500 ####[facility] [address] [place], [address] Liver Profileon 06-29-2024 Albumin [Mass/Vol] 3.4 g/dL Normal 3.2-5.0 [facility] Comment on above: Performed By: #### L 501.2450, L100.0100, L500.3400, L500.2500 ####[facility] [address] [place], [address] ALK P 41 U/L Low 45-117 [facility] Comment on above: Performed By: #### L 501.2450, L100.0100, L500.3400, L500.2500 ####[facility] [address] [place], [address] ALT [Catalytic activity/Vol] 15 U/L Low 16-61 [facility] Comment on above: Performed By: #### L 501.2450, L100.0100, L500.3400, L500.2500 ####[facility] [address] [place], [address] AST [Catalytic activity/Vol] 21 U/L Normal 15-37 [facility] Comment on above: Result Comment: Mode rate Hemolysis, Result may be falsely increased. Performed By: #### L 501.2450, L100.0100, L500.3400, L500.2500 ####[facility] [address] [place], [address] Bilirubin [Mass/Vol] 0.50 mg/dL Normal 0.20-1.00 [facility] Comment on above: Result Comment: For patients on eltrombopag therapy, use of Dimension Otoe TBIL is not recommended. Performed By: #### L 501.2450, L100.0100, L500.3400, L500.2500 ####[facility] [address] [place], [address] Bilirubin.direct [Mass/Vol] 0.14 mg/dL Normal 0.00-0.30 [facility] Comment on above: Result Comment: Spec imen is hemolyzed. The presence of hemoglobin canfalsley depress direct bilirubin reslts. Collection of anew specimen is suggested if clinicaly indicated. Performed By: #### L 501.2450, L100.0100, L500.3400, L500.2500 ####[facility] [address] [place], [address] Globulin (S) [Mass/Vol] 2.7 g/dL Normal 2.2-4.2 [facility] Comment on above: Performed By: #### L 501.2450, L100.0100, L500.3400, L500.2500 ####[facility] [address] [place], [address] T PROT 6.1 g/dL Low 6.4-8.2 [facility] Comment on above: Performed By: #### L 501.2450, L100.0100, L500.3400, L500.2500 ####[facility] [address] [place], [address] Office Visit Reporton 2023 Office Visit Report Normal [facility] Office Visit Reporton 2023 Office Visit Report Normal [facility] Absolute lymphocyte countOrd ered By: Patience Lane on 01-26-2024 Lymphocytes Auto (Unsp spec) [#/Vol] 1.37 10*3/uL 0.83-4.51 [facility] Automated lymphocyte count a s percentage of total leukocytesOrdered By: Patience Lane on 01-26-2024 Lymphocytes/100 WBC Auto (Unsp spec) 12.4 % 19-41 [facility] Basophil percentageOrdered B y: Patience Lane on 01-26-2024 Basophil percentage 0-5 SEEN /hpf 0-5 [facility] Basophils/100 WBC (Bld) 0.5 % 0-1 [facility] Bilirubin [Mass/Vol] 0.40 mg/dL 0.20-1.00 [facility] Comment on above: For patients on eltr ombopag therapy, use of Dimension Otoe TBIL is not recommended. Chloride [Moles/Vol] 103 mmol/L 98-107 [facility] Eosinophils/100 WBC (Bld) 3.2 % 0-5 [facility] Glucose [Mass/Vol] 95 mg/dL 74-106 [facility] Hemoglobin (Bld) [Mass/Vol] 14.6 g/dL 13.0-16.5 [facility] Monocytes/100 WBC (Bld) 5.9 % 0-10 [facility] Neutrophils (Bld) [#/Vol] 8.5 10*3/uL 2.0-7.7 [facility] Neutrophils/100 WBC (Bld) 77.4 % 47-70 [facility] Potassium [Moles/Vol] 4.1 mmol/L 3.5-5.1 [facility] Protein [Mass/Vol] 7.3 g/dL 6.4-8.2 [facility] Sodium [Moles/Vol] 132 mmol/L 136-145 [facility] WBC (Bld) [#/Vol] 11.0 10*3/uL 4.4-11.0 [facility] Bilirubin Test strip Ql (U)O rdered By: Patience Lane on 01-26-2024 Bilirubin Ql (U) Negative Negative [facility] Determination of erythrocyte mean corpuscular volume (MCV)Ordered By: Patience Lane on 01-26-2024 MCV (RBC) [Entitic vol] 87.0 fL 80-94 [facility] Direct bilirubinOrdered By: Patience Lane on 01-26-2024 Bilirubin.direct [Mass/Vol] 0.15 mg/dL 0.00-0.30 [facility] Erythrocyte distribution wid th ratioOrdered By: Patience Lane on 01-26-2024 Erythrocyte distribution width (RBC) [Ratio] 16.3 % 11.6-14.6 [facility] Erythrocyte distribution wid th standard deviationOrdered By: Patience Lane on 01-26-2024 Erythrocyte distribution width (RBC) [Entitic vol] 52.3 fL 35.1-43.9 [facility] Hematocrit Auto (Bld) [Volum e fraction]Ordered By: Patience Lane on 01-26-2024 Hematocrit (Bld) [Volume fraction] 45.0 % 40-54 [facility] Immature granulocytes/100 WB C Auto (Bld)Ordered By: Patience Lane on 01-26-2024 Immature granulocytes/100 WBC (Bld) 0.600 % 0.0-0.9 [facility] Comment on above: IG% - Immature Granu locytes (promyelocytes, myelocytes and metamyelocytes) > 1% indicates that a LEFT SHIFT is Present. Ketones Test strip Ql (U)Ord ered By: Patience Lane on 01-26-2024 Ketones Ql (U) Negative Negative [facility] Laboratory - Chemistry and C hemistry - challengeOrdered By: Patience Lane on 01-26-2024 ALP [Catalytic activity/Vol] 53 U/L 45-117 [facility] ALT [Catalytic activity/Vol] 15 U/L 16-61 [facility] CO2 [Moles/Vol] 23.0 mmol/L 21.0-32.0 [facility] Globulin (S) [Mass/Vol] 3.6 g/dL 2.2-4.2 [facility] Urea nitrogen/Creatinine [Mass ratio] 11.3 mg/mg 10-20 [facility] Laboratory - Hematology and Cell countsOrdered By: Patience Lane on 01-26-2024 MCH (RBC) [Entitic mass] 28.2 pg 27.0-32.0 [facility] MCHC (RBC) [Mass/Vol] 32.4 g/dL 32-36 [facility] Nucleated RBC/100 WBC (Bld) [Ratio] 0 % 0-5 [facility] Platelet mean volume (Bld) [Entitic vol] 9.6 fL 6.2-12.0 [facility] Platelets (Bld) [#/Vol] 282 10*3/uL 150-450 [facility] Mucus LM Ql (Urine sed)Order ed By: Patience Lane on 01-26-2024 Mucus Ql (Urine sed) 0 SEEN /hpf [facility] Nitrite Test strip Ql (U)Ord ered By: Patience Lane on 01-26-2024 Nitrite Ql (U) Negative Negative [facility] No Panel InformationOrdered By: Patience Lane on 01-26-2024 Urine RBC 0-5 SEEN /hpf 0-5 [facility] Estimated Creatinine Clearance Calc 71.74 ml/min [facility] Estimated GFR (MDRD) Amer 90 mL/min >60 [facility] Comment on above: GFR Calc Estimated GFR (MDRD) Non-Af Amer 74 mL/min >60 [facility] Comment on above: Non- GFR Calc Protein Test strip Ql (U)Ord ered By: Patience Lane on 01-26-2024 Protein Ql (U) 15 mg/dl Negative [facility] RBC Auto (Bld) [#/Vol]Ordere d By: Patience Lane on 01-26-2024 RBC (Bld) [#/Vol] 5.17 10*6/uL 4.6-6.2 [facility] Serum or plasma calcium madelyn urement (mass/volume)Ordered By: Patience Lane on 01-26-2024 Calcium [Mass/Vol] 9.5 mg/dL 8.5-10.1 [facility] Serum or plasma creatinine m easurement (mass/volume)Ordered By: Patience Lane on 01-26-2024 Creatinine [Mass/Vol] 1.06 mg/dL 0.70-1.30 [facility] Comment on above: The validity of the calculated GFR & GFRAA in patients over 70 years has not been determined. Clinical correlation is essential. Serum or plasma urea nitroge n measurement (mass/volume)Ordered By: Patience Lane on 01-26-2024 Urea nitrogen [Mass/Vol] 12 mg/dL 7-18 [facility] Squamous epithelial cells de tection in urine sediment by light microscopyOrdered By: Patience Lane on 01-26-2024 Epithelial cells.squamous LM Ql (Urine sed) 0 SEEN /hpf 0-5 [facility] Thin prep Papanicolaou smear with manual screeningOrdered By: Patience Lane on 01-26-2024 Thin prep Papanicolaou smear with manual screening 3.7 g/dL 3.2-5.0 [facility] Thin prep Papanicolaou smear with manual screening 21 U/L 15-37 [facility] Thin prep Papanicolaou smear with manual screening 6 5-15 [facility] Urine blood detectionOrdered By: Patience Lane on 01-26-2024 RBC Ql (U) 25 /ul Negative [facility] Urine clarityOrdered By: Vanessa Lane on 01-26-2024 Clarity (U) Clear Clear [facility] Urine color determinationOrd ered By: Patience Lane on 01-26-2024 Color (U) Yellow Yellow [facility] Urine glucose detectionOrder ed By: Patience Lane on 01-26-2024 Glucose Ql (U) Normal mg/dl Normal [facility] Urine leukocyte esterase det ection by dipstickOrdered By: Patience Lane on 01-26-2024 Leukocyte esterase Test strip Ql (U) 25 /ul Negative [facility] Urine pHOrdered By: Patience Lane on 01-26-2024 pH (U) 7.0 [pH] 5.0 - 8.0 [facility] Urine sediment bacteria coun t by microscopy (number/high power field)Ordered By: Patience Lane on 01-26-2024 Bacteria LM.HPF (Urine sed) [#/Area] 0 /[HPF] None Seen [facility] Urine specific gravity measu rementOrdered By: Patience Lane on 01-26-2024 Specific gravity (U) [Rel density] 1.010 1.002-1.03 0 [facility] Urine urobilinogen measureme ntOrdered By: Patience Lane on 01-26-2024 Urobilinogen Ql (U) Normal mg/dl Normal [facility] Absolute lymphocyte countOrd ered By: Patience Lane on 01-16-2024 Lymphocytes Auto (Unsp spec) [#/Vol] 0.99 10*3/uL 0.83-4.51 [facility] Automated lymphocyte count a s percentage of total leukocytesOrdered By: Patience Lane on 01-16-2024 Lymphocytes/100 WBC Auto (Unsp spec) 7.2 % 19-41 [facility] Basophil percentageOrdered B y: Patience Lane on 01-16-2024 Basophils/100 WBC (Bld) 0.4 % 0-1 [facility] Bilirubin [Mass/Vol] 0.30 mg/dL 0.20-1.00 [facility] Comment on above: For patients on eltr ombopag therapy, use of Dimension [place] TBIL is not recommended. Chloride [Moles/Vol] 110 mmol/L 98-107 [facility] Eosinophils/100 WBC (Bld) 0.1 % 0-5 [facility] Glucose [Mass/Vol] 140 mg/dL 74-106 [facility] Comment on above: Fasting Glucose resu lt greater than or equal to 126 mg/dL suggests DIABETES MELLITUS per A.D.A. criteria. Hemoglobin (Bld) [Mass/Vol] 13.6 g/dL 13.0-16.5 [facility] Monocytes/100 WBC (Bld) 2.4 % 0-10 [facility] Neutrophils (Bld) [#/Vol] 12.3 10*3/uL 2.0-7.7 [facility] Neutrophils/100 WBC (Bld) 89.0 % 47-70 [facility] Potassium [Moles/Vol] 3.4 mmol/L 3.5-5.1 [facility] Protein [Mass/Vol] 7.5 g/dL 6.4-8.2 [facility] Sodium [Moles/Vol] 140 mmol/L 136-145 [facility] WBC (Bld) [#/Vol] 13.8 10*3/uL 4.4-11.0 [facility] Determination of erythrocyte mean corpuscular volume (MCV)Ordered By: Patience Lane on 01-16-2024 MCV (RBC) [Entitic vol] 85.8 fL 80-94 [facility] Direct bilirubinOrdered By: Patience Lane on 01-16-2024 Bilirubin.direct [Mass/Vol] 0.09 mg/dL 0.00-0.30 [facility] Erythrocyte distribution wid th ratioOrdered By: Patienceeddie Lane on 01-16-2024 Erythrocyte distribution width (RBC) [Ratio] 16.6 % 11.6-14.6 [facility] Erythrocyte distribution wid th standard deviationOrdered By: Patienceeddie Lane on 01-16-2024 Erythrocyte distribution width (RBC) [Entitic vol] 52.3 fL 35.1-43.9 [facility] Hematocrit Auto (Bld) [Volum e fraction]Ordered By: Patience Lane on 01-16-2024 Hematocrit (Bld) [Volume fraction] 41.8 % 40-54 [facility] Immature granulocytes/100 WB C Auto (Bld)Ordered By: Patience Lane on 01-16-2024 Immature granulocytes/100 WBC (Bld) 0.900 % 0.0-0.9 [facility] Comment on above: IG% - Immature Granu locytes (promyelocytes, myelocytes and metamyelocytes) > 1% indicates that a LEFT SHIFT is Present. Laboratory - Chemistry and C hemistry - challengeOrdered By: Patience Lane on 01-16-2024 ALP [Catalytic activity/Vol] 59 U/L 45-117 [facility] ALT [Catalytic activity/Vol] 16 U/L 16-61 [facility] CO2 [Moles/Vol] 22.0 mmol/L 21.0-32.0 [facility] Globulin (S) [Mass/Vol] 3.7 g/dL 2.2-4.2 [facility] Lipase [Catalytic activity/Vol] 46 U/L 13-75 [facility] Comment on above: Please note:LIPASE r evised reference range effective 23. New Lipase methodology. Expected to produce lower values than the previous assay method. NEW Reference Range: 13 - 75 U/L Urea nitrogen/Creatinine [Mass ratio] 17.7 mg/mg 10-20 [facility] Laboratory - Hematology and Cell countsOrdered By: Patience Lane on 01-16-2024 MCH (RBC) [Entitic mass] 27.9 pg 27.0-32.0 [facility] MCHC (RBC) [Mass/Vol] 32.5 g/dL 32-36 [facility] Nucleated RBC/100 WBC (Bld) [Ratio] 0 % 0-5 [facility] Platelet mean volume (Bld) [Entitic vol] 10.1 fL 6.2-12.0 [facility] Platelets (Bld) [#/Vol] 408 10*3/uL 150-450 [facility] No Panel InformationOrdered By: Patience Lane on 01-16-2024 Estimated Creatinine Clearance Calc 86.57 ml/min [facility] Estimated GFR (MDRD) Amer 101 mL/min >60 [facility] Comment on above: GFR Calc Estimated GFR (MDRD) Non-Af Amer 84 mL/min >60 [facility] Comment on above: Non- GFR Calc RBC Auto (Bld) [#/Vol]Ordere d By: Patience Lane on 01-16-2024 RBC (Bld) [#/Vol] 4.87 10*6/uL 4.6-6.2 [facility] Serum or plasma calcium madelyn urement (mass/volume)Ordered By: Patience Lane on 01-16-2024 Calcium [Mass/Vol] 9.4 mg/dL 8.5-10.1 [facility] Serum or plasma creatinine m easurement (mass/volume)Ordered By: Patience Lane on 01-16-2024 Creatinine [Mass/Vol] 0.96 mg/dL 0.70-1.30 [facility] Comment on above: The validity of the calculated GFR & GFRAA in patients over 70 years has not been determined. Clinical correlation is essential. Serum or plasma urea nitroge n measurement (mass/volume)Ordered By: Patience Lane on 01-16-2024 Urea nitrogen [Mass/Vol] 17 mg/dL 7-18 [facility] Thin prep Papanicolaou smear with manual screeningOrdered By: Patience Lane on 01-16-2024 Thin prep Papanicolaou smear with manual screening 3.8 g/dL 3.2-5.0 [facility] Thin prep Papanicolaou smear with manual screening 18 U/L 15-37 [facility] Thin prep Papanicolaou smear with manual screening 8 5-15 [facility] No Panel InformationOrdered By: Fredi Angeles on 12-25-2023 Intrinsic Factor Antibody 1.1 AU/mL 0.0-1.1 [facility] Comment on above: Performed at: [address] [id number] Director: Fabian Qureshi MD, Phone: [phone] Basophil percentageOrdered B y: Fredi Angeles on 12-17-2023 Bilirubin [Mass/Vol] 0.30 mg/dL 0.20-1.00 [facility] Comment on above: For patients on eltr ombopag therapy, use of Dimension [place] TBIL is not recommended. Chloride [Moles/Vol] 107 mmol/L 98-107 [facility] Glucose [Mass/Vol] 80 mg/dL 74-106 [facility] Hemoglobin (Bld) [Mass/Vol] 12.3 g/dL 13.0-16.5 [facility] Potassium [Moles/Vol] 3.9 mmol/L 3.5-5.1 [facility] Protein [Mass/Vol] 6.9 g/dL 6.4-8.2 [facility] Sodium [Moles/Vol] 137 mmol/L 136-145 [facility] WBC (Bld) [#/Vol] 13.0 10*3/uL 4.4-11.0 [facility] Determination of erythrocyte mean corpuscular volume (MCV)Ordered By: Fredi Angeles on 12-17-2023 MCV (RBC) [Entitic vol] 88.6 fL 80-94 [facility] Erythrocyte distribution wid th ratioOrdered By: Fredi Angeles on 12-17-2023 Erythrocyte distribution width (RBC) [Ratio] 18.2 % 11.6-14.6 [facility] Erythrocyte distribution wid th standard deviationOrdered By: Fredi Angeles on 12-17-2023 Erythrocyte distribution width (RBC) [Entitic vol] 59.0 fL 35.1-43.9 [facility] Hematocrit Auto (Bld) [Volum e fraction]Ordered By: Fredi Angeles on 12-17-2023 Hematocrit (Bld) [Volume fraction] 38.9 % 40-54 [facility] Laboratory - Chemistry and C hemistry - challengeOrdered By: Fredi Angeles on 12-17-2023 Albumin/Globulin [Mass ratio] 1.0 {ratio} 0.9-2.4 [facility] ALP [Catalytic activity/Vol] 46 U/L 45-117 [facility] ALT [Catalytic activity/Vol] 16 U/L 16-61 [facility] CO2 [Moles/Vol] 22.0 mmol/L 21.0-32.0 [facility] Cobalamin (Vitamin B12) [Mass/Vol] 159 pg/mL 211-911 [facility] Globulin (S) [Mass/Vol] 3.4 g/dL 2.2-4.2 [facility] Urea nitrogen/Creatinine [Mass ratio] 11.6 mg/mg 10-20 [facility] Laboratory - Hematology and Cell countsOrdered By: Fredi Angeles on 12-17-2023 MCH (RBC) [Entitic mass] 28.0 pg 27.0-32.0 [facility] MCHC (RBC) [Mass/Vol] 31.6 g/dL 32-36 [facility] Platelet mean volume (Bld) [Entitic vol] 9.3 fL 6.2-12.0 [facility] Platelets (Bld) [#/Vol] 337 10*3/uL 150-450 [facility] No Panel InformationOrdered By: Fredi Angeles on 12-17-2023 Estimated GFR (MDRD) Amer 103 mL/min >60 [facility] Comment on above: GFR Calc Estimated GFR (MDRD) Non-Af Amer 85 mL/min >60 [facility] Comment on above: Non- GFR Calc Folate 11.00 ng/mL 3.1-55.4 [facility] RBC Auto (Bld) [#/Vol]Ordere d By: Fredi Angeles on 12-17-2023 RBC (Bld) [#/Vol] 4.39 10*6/uL 4.6-6.2 [facility] Serum or plasma calcium madelyn urement (mass/volume)Ordered By: Fredi Angeles on 12-17-2023 Calcium [Mass/Vol] 8.8 mg/dL 8.5-10.1 [facility] Serum or plasma creatinine m easurement (mass/volume)Ordered By: Fredi Angeles on 12-17-2023 Creatinine [Mass/Vol] 0.94 mg/dL 0.70-1.30 [facility] Comment on above: The validity of the calculated GFR & GFRAA in patients over 70 years has not been determined. Clinical correlation is essential. Serum or plasma thiamine russ surement (mass/volume)Ordered By: Fredi Angeles on 12-17-2023 Thiamine [Mass/Vol] 142.4 nmol/L 66.5-200.0 [facility] Comment on above: Performed at: - [address] [id number] Director: Fabian Qureshi MD, Phone: [phone] Serum or plasma thyroid stim ulating hormone (TSH) measurement (units/volume)Ordered By: Fredi Angeles on 12-17-2023 TSH Qn 0.61 uIU/mL 0.358-3.74 [facility] Serum or plasma urea nitroge n measurement (mass/volume)Ordered By: Fredi Angeles on 12-17-2023 Urea nitrogen [Mass/Vol] 11 mg/dL 7-18 [facility] Thin prep Papanicolaou smear with manual screeningOrdered By: Fredi Angeles on 12-17-2023 Thin prep Papanicolaou smear with manual screening 3.5 g/dL 3.2-5.0 [facility] Thin prep Papanicolaou smear with manual screening 16 U/L 15-37 [facility] Thin prep Papanicolaou smear with manual screening 8 5-15 [facility] ALBUMIN, RANDOM URINE W/CREA TININEon 11-08-2023 ALBUMIN, URINE 0.4 mg/dL Normal See Note: [facility] Comment on above: Result Comment: Refe rence Range: Reference Range Not established Performed By: #### 6 517, 12539, 04959, 6399 #### [facility] [place] [address] Weight Count Operator: Malvin Saez MD ALBUMIN/CREATININE RATIO, RANDOM URINE [...] diagnostic category. Performed By: #### 6 517, 66602, 12985, 6399 #### [facility] [place] [address] Weight Count Operator: Malvin Saez MD Creatinine (U) [Mass/Vol] 90 mg/dL Normal 20-320 [facility] Comment on above: Performed By: #### 6 517, 08715, 41191, 6399 #### [facility] [place] [address] Weight Count Operator: Malvin Saez MD CBC (INCLUDES DIFF/PLT)on Basophils (Bld) [#/Vol] 0.028 10*3/uL Normal 0-200 [facility] Comment on above: Performed By: #### 6 517, 83041, 34758, 6399 #### [facility] [place] [address] Weight Count Operator: Malvin Saez MD Basophils/100 WBC (Bld) 0.3 % Normal [facility] Comment on above: Performed By: #### 6 517, 80165, 66680, 6399 #### [facility] [place] [address] Weight Count Operator: Malvin Saez MD Eosinophils (Bld) [#/Vol] 0.167 10*3/uL Normal 15-500 [facility] Comment on above: Performed By: #### 6 517, 72717, 80813, 6399 #### [facility] of [place] [address] Weight Count Operator: Malvin Saez MD Eosinophils/100 WBC (Bld) 1.8 % Normal [facility] Comment on above: Performed By: #### 6 517, 07861, 78752, 6399 #### [facility] of [place] [address] Weight Count Operator: Malvin Saez MD Erythrocyte distribution width (RBC) [Ratio] 14.7 % Normal 11.0-15.0 [facility] Comment on above: Performed By: #### 6 517, 34284, 02766, 6399 #### [facility] of [place] [address] Weight Count Operator: Malvin Saez MD Hematocrit (Bld) [Volume fraction] 38.1 % Low 38.5-50.0 [facility] Comment on above: Performed By: #### 6 517, 94512, 82023, 6399 #### [facility] of [place] [address] Weight Count Operator: Malvin Saez MD Hemoglobin (Bld) [Mass/Vol] 12.4 g/dL Low 13.2-17.1 [facility] Comment on above: Performed By: #### 6 517, 92638, 86639, 6399 #### [facility] [place] [address] Weight Count Operator: Malvin Saez MD Lymphocytes (Bld) [#/Vol] 1.469 10*3/uL Normal 850-3900 [facility] Comment on above: Performed By: #### 6 517, 46778, 07797, 6399 #### [facility] [place] [address] Weight Count Operator: Malvin Saez MD Lymphocytes/100 WBC (Bld) 15.8 % Normal [facility] Comment on above: Performed By: #### 6 517, 10555, 35573, 6399 #### [facility] [place] [address] Weight Count Operator: Malvin Saez MD MCH (RBC) [Entitic mass] 27.2 pg Normal 27.0-33.0 [facility] Comment on above: Performed By: #### 6 517, 60736, 51212, 6399 #### [facility] [place] [address] Weight Count Operator: Malvin Saez MD MCHC (RBC) [Mass/Vol] 32.5 g/dL Normal 32.0-36.[address] [facility] Comment on above: Performed By: #### 6 517, 00097, 15111, 6399 #### [facility] [place] [address] Weight Count Operator: Malvin Saez MD MCV (RBC) [Entitic vol] 83.6 fL Normal 80.0-100.0 [facility] Comment on above: Performed By: #### 6 517, 88140, 64171, 6399 #### [facility] [place] [address] Weight Count Operator: Malvin Saez MD Monocytes (Bld) [#/Vol] 0.763 10*3/uL Normal 200-950 [facility] Comment on above: Performed By: #### 6 517, 61575, 12484, 6399 #### [facility] [place] [address] Weight Count Operator: Malvin Saez MD Monocytes/100 WBC (Bld) 8.2 % Normal [facility] Comment on above: Performed By: #### 6 517, 93746, 50101, 6399 #### [facility] [place] [address] Weight Count Operator: Malvin Saez MD Neutrophils (Bld) [#/Vol] 6.873 10*3/uL Normal 9415-8042 [facility] Comment on above: Performed By: #### 6 517, 82643, 99600, 6399 #### [facility] [place] [address] Weight Count Operator: Malvin Saez MD Neutrophils/100 WBC (Bld) 73.9 % Normal [facility] Comment on above: Performed By: #### 6 517, 38301, 31264, 6399 #### [facility] [place] [address] Weight Count Operator: Malvin Saez MD Platelet mean volume (Bld) [Entitic vol] 10.3 fL Normal 7.5-12.5 [facility] Comment on above: Performed By: #### 6 517, 99507, 86259, 6399 #### [facility] [place] [address] Weight Count Operator: Malvin Saez MD Platelets (Bld) [#/Vol] 368 10*3/uL Normal 140-400 [facility] Comment on above: Performed By: #### 6 517, 08399, 34708, 6399 #### [facility] [place] [address] Weight Count Operator: Malvin Saez MD RBC (Bld) [#/Vol] 4.56 10*6/uL Normal 4.20-5.80 [facility] Comment on above: Performed By: #### 6 517, 85511, 08157, 6399 #### [facility] [place] [address] Weight Count Operator: Malvin Saez MD WBC (Bld) [#/Vol] 9.3 10*3/uL Normal 3.8-10.8 [facility] Comment on above: Performed By: #### 6 517, 79560, 11336, 6399 #### [facility] [place] [address] Weight Count Operator: Malvin Saez MD [facility] 11-08-2023 Albumin [Mass/Vol] 4.5 g/dL Normal 3.6-5.1 [facility] Comment on above: Performed By: #### 6 517, 78285, 82965, 6399 #### [facility] [place] [address] Weight Count Operator: Malvin Saez MD Albumin/Globulin [Mass ratio] 1.8 {ratio} Normal 1.0-2.5 [facility] Comment on above: Performed By: #### 6 517, 89400, 36059, 6399 #### [facility] of [address], [address] [place] [address] Weight Count Operator: Malvin Saez MD ALP [Catalytic activity/Vol] 48 U/L Normal 35-144 [facility] Comment on above: Performed By: #### 6 517, 90250, 49520, 6399 #### [facility] of [address], [address] [place] [address] Weight Count Operator: Malvin Saez MD ALT [Catalytic activity/Vol] 11 U/L Normal 9-46 [facility] Comment on above: Performed By: #### 6 517, 91514, 48714, 6399 #### [facility] [place] [address] Weight Count Operator: Malvin Saez MD AST [Catalytic activity/Vol] 19 U/L Normal 10-35 [facility] Comment on above: Performed By: #### 6 517, 21368, 45163, 6399 #### [facility] [place] [address] Weight Count Operator: Malvin Saez MD Bilirubin [Mass/Vol] 0.5 mg/dL Normal 0.2-1.2 [facility] Comment on above: Performed By: #### 6 517, 74735, 34944, 6399 #### [facility] [place] [address] Weight Count Operator: Malvin Saez MD BUN/CREATININE RATIO SEE NOTE: Normal 6-22 [facility] Comment on above: Result Comment: Not Reported: BUN and Creatinine are within reference range. Performed By: #### 6 517, 29288, 59194, 6399 #### [facility] [place] [address] Weight Count Operator: Malvin Saez MD Calcium [Mass/Vol] 9.8 mg/dL Normal 8.6-10.3 [facility] Comment on above: Performed By: #### 6 517, 82693, 36472, 6399 #### [facility] [place] [address] Weight Count Operator: Malvin Saez MD Chloride [Moles/Vol] 104 mmol/L Normal 98-110 [facility] Comment on above: Performed By: #### 6 517, 52549, 52796, 6399 #### [facility] [place] [address] Weight Count Operator: Malvin Saez MD CO2 [Moles/Vol] 19 mmol/L Low 20-32 [facility] Comment on above: Performed By: #### 6 517, 76157, 52716, 6399 #### [facility] [place] [address] Weight Count Operator: Malvin Saez MD Creatinine [Mass/Vol] 1.06 mg/dL Normal 0.70-1.[address] [facility] Comment on above: Performed By: #### 6 517, 63979, 28093, 6399 #### [facility] [place] [address] Weight Count Operator: Malvin Saez MD GFR/1.73 sq M.predicted among non-blacks MDRD (S/P/Bld) [Vol rate/Area] 78 mL/min/{1.73_m2} Normal > OR = 60 [facility] Comment on above: Performed By: #### 6 517, 76531, 12100, 6399 #### [facility] [place] [address] Weight Count Operator: Malvin Saez MD Globulin (S) [Mass/Vol] 2.5 g/dL Normal 1.9-3.7 [facility] Comment on above: Performed By: #### 6 517, 99722, 05815, 6399 #### [facility] [place] [address] Weight Count Operator: Malvin Saez MD Glucose [Mass/Vol] 90 mg/dL Normal 65-99 [facility] Comment on above: Result Comment: Fasting reference interval Performed By: #### 6 517, 12858, 58823, 6399 #### [facility] [place] [address] Weight Count Operator: Malvin Saez MD Potassium [Moles/Vol] 4.4 mmol/L Normal 3.5-5.[address] [facility] Comment on above: Performed By: #### 6 517, [id number], 91105, 6399 #### [facility] [place] [address] Weight Count Operator: Malvin Saez MD Protein [Mass/Vol] 7.0 g/dL Normal 6.1-8.1 [facility] Comment on above: Performed By: #### 6 517, 90022, 98252, 6399 #### [facility] [place] [address] Weight Count Operator: Malvin Saez MD Sodium [Moles/Vol] 134 mmol/L Low 135-146 [facility] Comment on above: Performed By: #### 6 517, 21449, 12658, 6399 #### [facility] [place] [address] Weight Count Operator: Malvin Saez MD Urea nitrogen [Mass/Vol] 19 mg/dL Normal 7-25 [facility] Comment on above: Performed By: #### 6 517, 28223, 81336, 6399 #### [facility] [place] [address] Weight Count Operator: Malvin Saez MD LIPID PANEL WITH REFLEX TO Hamzah ESCOBAR LDLon 11-08-2023 Cholesterol [Mass/Vol] 154 mg/dL Normal <200 [facility] Comment on above: Order Comment: FASTI NG:YES FASTING: YES Performed By: #### 6 517, 55757, 04851, 6399 #### [facility] [address], [address] [place] [address] Weight Count Operator: Malvin Saez MD Cholesterol in HDL [Mass/Vol] 44 mg/dL Normal > OR = 40 [facility] Comment on above: Order Comment: FASTI NG:YES FASTING: YES Performed By: #### 6 517, 46842, 76793, 6399 #### [facility] [address], [address] [place] [address] Weight Count Operator: Malvin Saez MD Cholesterol in LDL [Mass/Vol] [...] LDL-C. Rojas SS et al. SIGRID. 2013;310(19): 9217-6024 (http://education.TeliApp/faq/MXR303) Performed By: #### 6 517, 52999, 54499, 6399 #### [facility] [address], [address] [place] [address] Weight Count Operator: Malvin Saez MD Cholesterol.total/Choles terol in HDL [Mass ratio] 3.5 {ratio} Normal <5.0 [facility] Comment on above: Order Comment: FASTI NG:YES FASTING: YES Performed By: #### 6 517, 54989, 16446, 6399 #### [facility] [address], [address] [place] [address] Weight Count Operator: Malvin Saez MD NON HDL CHOLESTEROL 110 mg/dL (calc) Normal <130 [facility] Comment on above: Order Comment: FASTI NG:YES FASTING: YES Result Comment: For patients with diabetes plus 1 major ASCVD risk factor, treating to a non-HDL-C goal of <100 mg/dL (LDL-C of <70 mg/dL) is considered a therapeutic option. Performed By: #### 6 517, 86477, 82928, 6399 #### [facility] [address], [address] [place] [address] Weight Count Operator: Malvin Saez MD Triglyceride [Mass/Vol] 139 mg/dL Normal <150 [facility] Comment on above: Order Comment: FASTI NG:YES FASTING: YES Performed By: #### 6 517, 13019, 96913, 6399 #### [facility] [address], [address] [place] [address] Weight Count Operator: Mlavin Saez MD PSA, TOTALon 11-08-2023 PSA, TOTAL 0.73 ng/mL Normal < OR = 4.00 [facility] [...] of disease. Performed By: #### 6 517, 16017, 85219, 6399 #### [facility] [address], [address] [place] [address] Weight Count Operator: Malvin Saez MD Basophil percentageOrdered B y: Fredi Angeles on 10-19-2023 Creatinine [Mass/Vol] 1.4 mg/dL 0.70-1.30 [facility] - Chemistry and C hemistry - challengeOrdered By: Fredi Angeles on 10-19-2023 GFR/1.73 sq M.predicted among non-blacks MDRD (S/P/Bld) [Vol rate/Area] 55.0000 mL/min/{1.73_m2} >60 [facility] Absolute lymphocyte countOrd ered By: Trenton Ruiz on 09-06-2023 Lymphocytes Auto (Unsp spec) [#/Vol] 0.80 10*3/uL 0.83-4.51 [facility] Basophil percentageOrdered B y: Trenton Ruiz on 09-06-2023 Lactate [Moles/Vol] 2.1 mmol/L 0.4-2.0 [facility] Comment on above: Critical Result(s) C alled at: 17:23:44 09/06/2023 by: Tiana Singer. Results read back by same. Basophils/100 WBC (Bld) 0.3 % 0-1 [facility] Bilirubin [Mass/Vol] 0.40 mg/dL 0.20-1.00 [facility] Comment on above: For patients on eltr ombopag therapy, use of Dimension Otoe TBIL is not recommended. Chloride [Moles/Vol] 110 mmol/L 98-107 [facility] Eosinophils/100 WBC (Bld) 0.0 % 0-5 [facility] Glucose [Mass/Vol] 164 mg/dL 74-106 [facility] Comment on above: Fasting Glucose resu lt greater than or equal to 126 mg/dL suggests DIABETES MELLITUS per A.D.A. criteria. Neutrophils (Bld) [#/Vol] 12.7 10*3/uL 2.0-7.7 [facility] Neutrophils/100 WBC (Bld) 90.5 % 47-70 [facility] Potassium [Moles/Vol] 3.3 mmol/L 3.5-5.1 [facility] Protein [Mass/Vol] 8.1 g/dL 6.4-8.2 [facility] Sodium [Moles/Vol] 141 mmol/L 136-145 [facility] WBC (Bld) [#/Vol] 14.0 10*3/uL 4.4-11.0 [facility] Basophil percentageOrdered B y: Malcom Cordova on 09-06-2023 Basophil percentage 0-5 SEEN /hpf 0-5 [facility] Bilirubin Test strip Ql (U)O rdered By: Malcom Cordova on 09-06-2023 Bilirubin Ql (U) Negative Negative [facility] Blood erythrocytes count (nu mber/volume)Ordered By: Trenton Ruiz on 09-06-2023 RBC (Bld) [#/Vol] 4.55 10*6/uL 4.6-6.2 [facility] Blood hemoglobin measurement (mass/volume)Ordered By: Trenton Ruiz on 09-06-2023 Hemoglobin (Bld) [Mass/Vol] 12.8 g/dL 13.0-16.5 [facility] Blood lymphocytes/100 leukoc ytesOrdered By: Trenton Ruiz on 09-06-2023 Lymphocytes/100 WBC (Bld) 5.7 % 19-41 [facility] Blood monocytes/100 leukocyt esOrdered By: Trenton Ruiz on 09-06-2023 Monocytes/100 WBC (Bld) 2.9 % 0-10 [facility] Blood platelet mean volumeOr dered By: Trenton Ruiz on 09-06-2023 Platelet mean volume (Bld) [Entitic vol] 10.2 fL 6.2-12.0 [facility] Determination of erythrocyte mean corpuscular volume (MCV)Ordered By: Trenton Ruiz on 09-06-2023 MCV (RBC) [Entitic vol] 88.4 fL 80-94 [facility] Hematocrit Auto (Bld) [Volum e fraction]Ordered By: Trenton Ruiz on 09-06-2023 Hematocrit (Bld) [Volume fraction] 40.2 % 40-54 [facility] Influenza virus A and B and SARS-CoV-2 (COVID-19) Ag panel - Upper respiratory specimOrdered By: Malcom Cordova on 09-06-2023 SARS-CoV-2 (COVID-19) RNA VILMA+probe Ql (Resp) [facility] Ketones Test strip Ql (U)Ord ered By: Malcom Cordova on 09-06-2023 Ketones Ql (U) Negative Negative [facility] - Chemistry and C hemistry - challengeOrdered By: Trenton Ruiz on 09-06-2023 ALP [Catalytic activity/Vol] 63 U/L 45-117 [facility] ALT [Catalytic activity/Vol] 23 U/L 16-61 [facility] CO2 [Moles/Vol] 19.0 mmol/L 21.0-32.0 [facility] Globulin (S) [Mass/Vol] 3.9 g/dL 2.2-4.2 [facility] Lipase [Catalytic activity/Vol] 30 U/L 13-75 [facility] Comment on above: Please note:LIPASE r evised reference range effective 23. New Lipase methodology. Expected to produce lower values than the previous assay method. NEW Reference Range: 13 - 75 U/L Urea nitrogen/Creatinine [Mass ratio] 9.1 mg/mg 10-20 [facility] - Hematology and Cell countsOrdered By: Trenton Ruiz on 09-06-2023 Erythrocyte distribution width (RBC) [Entitic vol] 44.7 fL 35.1-43.9 [facility] Erythrocyte distribution width (RBC) [Ratio] 13.9 % 11.6-14.6 [facility] Immature granulocytes/100 WBC (Bld) 0.600 % 0.0-0.9 [facility] Comment on above: IG% - Immature Granu locytes (promyelocytes, myelocytes and metamyelocytes) > 1% indicates that a LEFT SHIFT is Present. MCH (RBC) [Entitic mass] 28.1 pg 27.0-32.0 [facility] Nucleated RBC/100 WBC (Bld) [Ratio] 0 % 0-5 [facility] MCHC Auto (RBC) [Mass/Vol]Or dered By: Trenton Ruiz on 09-06-2023 MCHC (RBC) [Mass/Vol] 31.8 g/dL 32-36 [facility] Mucus LM Ql (Urine sed)Order ed By: Malcom Cordova on 09-06-2023 Mucus Ql (Urine sed) 0 SEEN /hpf [facility] Nitrite Test strip Ql (U)Ord ered By: Malcom Cordova on 09-06-2023 Nitrite Ql (U) Negative Negative [facility] No Panel InformationOrdered By: Trenton Ruiz on 09-06-2023 Estimated Creatinine Clearance Calc 62.84 ml/min [facility] Estimated GFR (MDRD) Amer 77 mL/min >60 [facility] Comment on above: GFR Calc Estimated GFR (MDRD) Non-Af Amer 64 mL/min >60 [facility] Comment on above: Non- GFR Calc Platelets bldOrdered By: Myla catalan Sara on 09-06-2023 Platelets (Bld) [#/Vol] 407 10*3/uL 150-450 [facility] Protein Test strip Ql (U)Ord ered By: Malcom Cordova on 09-06-2023 Protein Ql (U) 15 mg/dl Negative [facility] Serum or plasma albumin madelyn urement (mass/volume)Ordered By: Trenton Crawfordmarge on 09-06-2023 Albumin [Mass/Vol] 4.2 g/dL 3.2-5.0 [facility] Serum or plasma albumin/glob ulin mass ratioOrdered By: Trenton Crawfordmarge on 09-06-2023 Albumin/Globulin [Mass ratio] 1.1 {ratio} 0.9-2.4 [facility] Serum or plasma calcium madelyn urement (mass/volume)Ordered By: Trenton Crawfordmarge on 09-06-2023 Calcium [Mass/Vol] 9.9 mg/dL 8.5-10.1 [facility] Serum or plasma creatinine m easurement (mass/volume)Ordered By: [facility] Sara on 09-06-2023 Creatinine [Mass/Vol] 1.21 mg/dL 0.70-1.30 [facility] Comment on above: The validity of the calculated GFR & GFRAA in patients over 70 years has not been determined. Clinical correlation is essential. Serum or plasma urea nitroge n measurement (mass/volume)Ordered By: Trenton Sara on 09-06-2023 Urea nitrogen [Mass/Vol] 11 mg/dL 7-18 [facility] Squamous epithelial cells de tection in urine sediment by light microscopyOrdered By: Malcom Cordova on 09-06-2023 Epithelial cells.squamous LM Ql (Urine sed) 0-5 SEEN /hpf 0-5 [facility] Thin prep Papanicolaou smear with manual screeningOrdered By: Trenton Sara on 09-06-2023 Thin prep Papanicolaou smear with manual screening 21 U/L 15-37 [facility] Thin prep Papanicolaou smear with manual screening 12 5-15 [facility] Upper respiratory specimen i nfluenza A virus, influenza B virus, and severe acute respiratory syndromOrdered By: Malcom Cordova on 09-06-2023 Upper respiratory specimen influenza A virus, influenza B virus, and severe acute respiratory syndrom [facility] Urine blood detectionOrdered By: Malcom Cordova on 09-06-2023 RBC Ql (U) 50 /ul Negative [facility] RBC Ql (U) 0-5 SEEN /hpf 0-5 [facility] Urine clarityOrdered By: Ra Cordova on 09-06-2023 Clarity (U) Clear Clear [facility] Urine color determinationOrd ered By: Malcom Cordova on 09-06-2023 Color (U) Yellow Yellow [facility] Urine glucose detectionOrder ed By: Malcom Cordova on 09-06-2023 Glucose Ql (U) Normal mg/dl Normal [facility] Urine leukocyte esterase det ection by dipstickOrdered By: Malcom Cordova on 09-06-2023 Leukocyte esterase Test strip Ql (U) Negative Negative [facility] Urine pHOrdered By: Malcom bone on 09-06-2023 pH (U) 7.0 [pH] 5.0 - 8.0 [facility] Urine sediment bacteria coun t by microscopy (number/high power field)Ordered By: Malcom Cordova on 09-06-2023 Bacteria LM.HPF (Urine sed) [#/Area] 0 /[HPF] None Seen [facility] Urine specific gravity measu rementOrdered By: Malcom Cordova on 09-06-2023 Specific gravity (U) [Rel density] 1.010 1.002-1.03 0 [facility] Urobilinogen Auto test strip Ql (U)Ordered By: Malcom Cordova on 09-06-2023 Urobilinogen Ql (U) Normal mg/dl Normal [facility] Final Surgical Pathology Rep carlos 07-06-2023 Final Surgical Pathology Report . Pathology Reports Accession: Collected Date/Time: Received Date/Time: Pathologist: [id number] 07/04/2023 09:02 EDT 07/05/2023 09:42 EDT MINDY ROMO MD Final Surgical Pathology Report DIAGNOSIS: [...] All parts labelled with patient name and [id number] A. Received in formalin labeled stomach biopsy are multiple ortiz-pink tissue fragments aggregating 1.8 x 0.3 x 0.2 cm. TS-1 B. Received in formalin labeled distal transverse polyp 5 mm are 2 ortiz tissue fragments each measuring 0.3 cm. TS-1 Ro Patrick, Grossing Department Secretary/ Dr. Mindy Romo, Pathologist Dictated by oR Patrick MICROSCOPIC DESCRIPTION: The microscopic examination is performed, except in the case of Gross Only. Electronically Signed by Pathology Report verified by [facility] MINDY ROMO Sign out Date: 07/06/2023 14:02 Performing Lab: [facility], [address] [place] [address] Pathology Dept Disclaimer If ancillary studies were utilized, the following Laboratory Developed Test (LDT) disclaimer will apply: Under CLIA requirements, [facility] Pathology [facility] is qualified to perform high complexity testing. For all ancillary stains, positive and negative controls stain appropriately. Performance characteristics of immunohistochemical and chromogenic in-situ hybridization tests have been determined by [facility] Pathology [facility]. These tests are used for clinical purposes, They should not be regarded as investigational or for research. Normal [facility] ([place]) Absolute lymphocyte countOrd ered By: ED PROVIDER on 06-18-2023 Lymphocytes Auto (Unsp spec) [#/Vol] 1.36 10*3/uL 0.83-4.51 [facility] Basophil percentageOrdered B y: Malcom Cordova on 06-18-2023 Basophil percentage 0 SEEN /hpf 0-5 [facility] Bilirubin [Mass/Vol] 0.30 mg/dL 0.20-1.00 [facility] Comment on above: For patients on eltr ombopag therapy, use of Dimension Otoe TBIL is not recommended. Chloride [Moles/Vol] 105 mmol/L 98-107 [facility] Glucose [Mass/Vol] 132 mg/dL 74-106 [facility] Comment on above: Fasting Glucose resu lt greater than or equal to 126 mg/dL suggests DIABETES MELLITUS per A.D.A. criteria. Potassium [Moles/Vol] 4.0 mmol/L 3.5-5.1 [facility] Protein [Mass/Vol] 8.2 g/dL 6.4-8.2 [facility] Sodium [Moles/Vol] 135 mmol/L 136-145 [facility] Basophil percentageOrdered B y: ED PROVIDER on 06-18-2023 Basophils/100 WBC (Bld) 0.5 % 0-1 [facility] Eosinophils/100 WBC (Bld) 0.5 % 0-5 [facility] Neutrophils (Bld) [#/Vol] 14.5 10*3/uL 2.0-7.7 [facility] Neutrophils/100 WBC (Bld) 86.1 % 47-70 [facility] WBC (Bld) [#/Vol] 16.8 10*3/uL 4.4-11.0 [facility] Bilirubin Test strip Ql (U)O rdered By: Malcom Cordova on 06-18-2023 Bilirubin Ql (U) Negative Negative [facility] Blood erythrocytes count (nu mber/volume)Ordered By: ED PROVIDER on 06-18-2023 RBC (Bld) [#/Vol] 4.54 10*6/uL 4.6-6.2 [facility] Blood hemoglobin measurement (mass/volume)Ordered By: ED PROVIDER on 06-18-2023 Hemoglobin (Bld) [Mass/Vol] 12.7 g/dL 13.0-16.5 [facility] Blood lymphocytes/100 leukoc ytesOrdered By: ED PROVIDER on 06-18-2023 Lymphocytes/100 WBC (Bld) 8.1 % 19-41 [facility] Blood monocytes/100 leukocyt esOrdered By: ED PROVIDER on 06-18-2023 Monocytes/100 WBC (Bld) 3.0 % 0-10 [facility] Blood platelet mean volumeOr dered By: ED PROVIDER on 06-18-2023 Platelet mean volume (Bld) [Entitic vol] 9.5 fL 6.2-12.0 [facility] Determination of erythrocyte mean corpuscular volume (MCV)Ordered By: ED PROVIDER on 06-18-2023 MCV (RBC) [Entitic vol] 86.8 fL 80-94 [facility] Hematocrit Auto (Bld) [Volum e fraction]Ordered By: ED PROVIDER on 06-18-2023 Hematocrit (Bld) [Volume fraction] 39.4 % 40-54 [facility] Ketones Test strip Ql (U)Ord ered By: Malcom Cordova on 06-18-2023 Ketones Ql (U) Negative Negative [facility] Laboratory - Chemistry and C hemistry - challengeOrdered By: Malcom Cordova on 06-18-2023 ALP [Catalytic activity/Vol] 54 U/L 45-117 [facility] ALT [Catalytic activity/Vol] 21 U/L 16-61 [facility] CO2 [Moles/Vol] 21.0 mmol/L 21.0-32.0 [facility] Globulin (S) [Mass/Vol] 4.0 g/dL 2.2-4.2 [facility] Lipase [Catalytic activity/Vol] 40 U/L 13-75 [facility] Comment on above: Please note:LIPASE r evised reference range effective 23. New Lipase methodology. Expected to produce lower values than the previous assay method. NEW Reference Range: 13 - 75 U/L Urea nitrogen/Creatinine [Mass ratio] 13.3 mg/mg 10-20 [facility] - Hematology and Cell countsOrdered By: ED PROVIDER on 06-18-2023 Erythrocyte distribution width (RBC) [Entitic vol] 53.5 fL 35.1-43.9 [facility] Erythrocyte distribution width (RBC) [Ratio] 16.8 % 11.6-14.6 [facility] Immature granulocytes/100 WBC (Bld) 1.800 % 0.0-0.9 [facility] Comment on above: IG% - Immature Granu locytes (promyelocytes, myelocytes and metamyelocytes) > 1% indicates that a LEFT SHIFT is Present. MCH (RBC) [Entitic mass] 28.0 pg 27.0-32.0 [facility] Nucleated RBC/100 WBC (Bld) [Ratio] 0 % 0-5 [facility] MCHC Auto (RBC) [Mass/Vol]Or dered By: ED PROVIDER on 06-18-2023 MCHC (RBC) [Mass/Vol] 32.2 g/dL 32-36 [facility] Mucus LM Ql (Urine sed)Order ed By: Malcom Cordova on 06-18-2023 Mucus Ql (Urine sed) 0 SEEN /hpf [facility] Nitrite Test strip Ql (U)Ord ered By: Malcom Cordova on 06-18-2023 Nitrite Ql (U) Negative Negative [facility] No Panel InformationOrdered By: Malcom Cordova on 06-18-2023 Estimated GFR (MDRD) Amer 64 mL/min >60 [facility] Comment on above: GFR Calc Estimated GFR (MDRD) Non-Af Amer 53 mL/min >60 [facility] Comment on above: Non- GFR Calc Platelets bldOrdered By: ED PROVIDER on 06-18-2023 Platelets (Bld) [#/Vol] 416 10*3/uL 150-450 [facility] Protein Test strip Ql (U)Ord ered By: Malcom Cordova on 06-18-2023 Protein Ql (U) 15 mg/dl Negative [facility] Serum or plasma albumin madelyn urement (mass/volume)Ordered By: Malcom Cordova on 06-18-2023 Albumin [Mass/Vol] 4.2 g/dL 3.2-5.0 [facility] Serum or plasma albumin/glob ulin mass ratioOrdered By: Malcom Cordova on 06-18-2023 Albumin/Globulin [Mass ratio] 1.0 {ratio} 0.9-2.4 [facility] Serum or plasma calcium madelyn urement (mass/volume)Ordered By: Malcom Cordova on 06-18-2023 Calcium [Mass/Vol] 9.4 mg/dL 8.5-10.1 [facility] Serum or plasma creatinine m easurement (mass/volume)Ordered By: Malcom Cordova on 06-18-2023 Creatinine [Mass/Vol] 1.43 mg/dL 0.70-1.30 [facility] Comment on above: The validity of the calculated GFR & GFRAA in patients over 70 years has not been determined. Clinical correlation is essential. Serum or plasma urea nitroge n measurement (mass/volume)Ordered By: Malcom Cordova on 06-18-2023 Urea nitrogen [Mass/Vol] 19 mg/dL 7-18 [facility] Squamous epithelial cells de tection in urine sediment by light microscopyOrdered By: Malcom Cordova on 06-18-2023 Epithelial cells.squamous LM Ql (Urine sed) 0 SEEN /hpf 0-5 [facility] Thin prep Papanicolaou smear with manual screeningOrdered By: Malcom Cordova on 06-18-2023 Thin prep Papanicolaou smear with manual screening 22 U/L 15-37 [facility] Thin prep Papanicolaou smear with manual screening 9 5-15 [facility] Urine blood detectionOrdered By: Malcom Cordova on 06-18-2023 RBC Ql (U) 50 /ul Negative [facility] RBC Ql (U) 5-10 SEEN /hpf 0-5 [facility] Urine clarityOrdered By: Ra Cordova on 06-18-2023 Clarity (U) Clear Clear [facility] Urine color determinationOrd ered By: Malcom Cordova on 06-18-2023 Color (U) Yellow Yellow [facility] Urine glucose detectionOrder ed By: Malcom Cordova on 06-18-2023 Glucose Ql (U) Normal mg/dl Normal [facility] Urine leukocyte esterase det ection by dipstickOrdered By: Malcom Cordova on 06-18-2023 Leukocyte esterase Test strip Ql (U) Negative Negative [facility] Urine pHOrdered By: Malcom bone on 06-18-2023 pH (U) 6.0 [pH] 5.0 - 8.0 [facility] Urine sediment bacteria coun t by microscopy (number/high power field)Ordered By: Malcom Cordova on 06-18-2023 Bacteria LM.HPF (Urine sed) [#/Area] 0 /[HPF] None Seen [facility] Urine specific gravity measu rementOrdered By: Malcom Cordova on 06-18-2023 Specific gravity (U) [Rel density] 1.015 1.002-1.03 0 [facility] Urobilinogen Auto test strip Ql (U)Ordered By: Malcom Cordova on 06-18-2023 Urobilinogen Ql (U) Normal mg/dl Normal [facility] CT ABD/PELVIS W/ IV CONTRAST ONLYon 04-13-2023 [...] Date: 04/06/2023 7:41:51 AM Ordering Provider: MARTI GUILLAUME [facility] ([place]) Discharge Planning [id number] 04-08-2023 Discharge Planning Note2 Discharge Plann ing: Needs Prior to Discharge (ex. Home Care Orders, IV/O2 prescriptions) PT/OT Discharge Barriersmedical Planned Dispositionhome [facility] PCP/Next Provider Follow Up Scheduledyes Amelia of Choice Explainedno Anticipated Discharge [id number] Discharge Planning Transitional Locator Specialist Note: 04/08/2023@ 12:25 Met with patient/ to introduce myself, role and discuss discharge planning s/p thoracic surgery is alert and oriented lives with spouse. Independent in all ADL's. Requires a cane to assist with mobility. Patient denies active home care or home care needs. Demographics and contact information confirmed. Will continue to monitor patient for all home going needs. Julissa Morales RN [facility] [phone] Assessment: Discharge Planning Assessment [id number] Discharge Planning Assessment Completed byVish Carmichael Halo Primary Contact Name and NumberRicky [phone] Prior Level of FunctioningIndependent in all adl's. [...] Profile - Adult v2 07-Apr-2023 02:50 Normal [facility] UA MICROSCOPICon 04-08-2023 BACTERIA 1+ /HPF Abnormal [facility] Comment on above: Performed By: #### U AMIC ####[id number] [place] [address] Mucus Ql (Urine sed) 2+ /LPF Normal [facility] [place] Comment on above: Performed By: #### U AMIC ####[id number] [place] [address] RBC 8 /HPF Abnormal 0-5 [facility] Comment on above: Performed By: #### U AMIC ####[id number] [place] [address] WBC 5 /HPF Normal 0-5 [facility] Comment on above: Performed By: #### U AMIC ####[id number] [place] [address] URINALYSIS WITH CULTURE IF I NDICATEDon 04-08-2023 Appearance (U) CLEAR Normal CLEAR [facility] Comment on above: Performed By: #### U ARFX ####[id number] [place] [address] Bilirubin Ql (U) Negative Normal NEGATIVE [facility] Comment on above: Performed By: #### U ARFX ####[id number] [place] [address] Color (U) CHIKIS Normal STRAW,YELL OW [facility] Comment on above: Performed By: #### U ARFX ####[id number] [place] [address] Glucose Ql (U) Negative Normal NEGATIVE [facility] Comment on above: Performed By: #### U ARFX ####[id number] [place] [address] Hemoglobin Ql (U) SMALL (1+) Abnormal NEGATIVE [facility] Comment on above: Performed By: #### U ARFX ####[id number] [place] [address] Ketones Ql (U) 5 (TRACE) Abnormal NEGATIVE [facility] [facility] Comment on above: Performed By: #### U ARFX ####[id number] [place] [address] Leukocyte esterase Test strip Ql (U) Negative Normal NEGATIVE [facility] Comment on above: Performed By: #### U ARFX ####[id number] [place] [address] Nitrite Ql (U) Negative Normal NEGATIVE [facility] Comment on above: Performed By: #### U ARFX ####[id number] [place] [address] pH (U) 6.0 [pH] Normal 5.0 - 8.0 [facility] Comment on above: Performed By: #### U ARFX ####[id number] [place] [address] Protein Ql (U) Negative Normal NEGATIVE [facility] Comment on above: Performed By: #### U ARFX ####[id number] [place] [address] Specific gravity (U) [Rel density] 1.025 Normal 1.005 - 1.035 [facility] Comment on above: Performed By: #### U ARFX ####[id number] [place] [address] Urobilinogen (U) [Mass/Vol] mg/dL Normal 0.0 - 1.9 [facility] Comment on above: Performed By: #### U ARFX ####[id number] [place] [address] .Auto Diffon 04-07-2023 Basophil, Absolute 0.1 10 3/mcL Normal 0.0-0.3 [facility] Comment on above: Performed By: #### G FR, MG, LIP, MDW, CBC, CMP, MORPH, DIFF #### [address] [address] Basophils/100 WBC (Bld) 0.7 % Normal 0.0-2.5 [facility] ([place]) Comment on above: Performed By: #### G FR, MG, LIP, MDW, CBC, CMP, MORPH, DIFF #### [address] [address] Eosinophil, Absolute 0.0 10 3/mcL Normal 0.0-0.7 [facility] ([place]) Comment on above: Performed By: #### G FR, MG, LIP, MDW, CBC, CMP, MORPH, DIFF #### [address] [address] Eosinophils/100 WBC (Bld) 0.1 % Normal 0.0-6.0 [facility] ([place]) Comment on above: Performed By: #### G FR, MG, LIP, MDW, CBC, CMP, MORPH, DIFF #### [address] [address] Lymphocyte, Absolute 1.5 10 3/mcL Normal 0.9-4.3 [facility] ([place] Comment on above: Performed By: #### G FR, MG, LIP, MDW, CBC, CMP, MORPH, DIFF #### [address] [address] Lymphocytes/100 WBC (Bld) 10.6 % Low 20.0-40.0 [facility] ([place] Comment on above: Performed By: #### G FR, MG, LIP, MDW, CBC, CMP, MORPH, DIFF #### [address] [address] Monocyte, Absolute 1.3 10 3/mcL Normal 0.1-1.4 [facility] Comment on above: Performed By: #### G FR, MG, LIP, MDW, CBC, CMP, MORPH, DIFF #### [address] [address] Monocytes/100 WBC (Bld) 9.4 % Normal 2.0-13.0 A [facility] ([place]) Comment on above: Performed By: #### G FR, MG, LIP, MDW, CBC, CMP, MORPH, DIFF #### [address] [address] Neutrophils/100 WBC (Bld) 79.2 % High 50.0-75.0 [facility] ([place] Comment on above: Performed By: #### G FR, MG, LIP, MDW, CBC, CMP, MORPH, DIFF #### [address] [address] .GFRon 04-07-2023 GFR Non- >60 Normal [facility] ([place] Comment on above: Result Comment: GFR Population [...] LIP, MDW, CBC, CMP, MORPH, DIFF #### [address] [address] GFR >60 Normal [facility] Comment on above: Result Comment: GFR Population [...] LIP, MDW, CBC, CMP, MORPH, DIFF #### [address] [address] .NEUABSon 04-07-2023 Neutrophil, Absolute 10.9 10 3/mcL High 2.3-8.1 A [facility] ([place] Comment on above: Performed By: #### G FR, MG, LIP, MDW, CBC, CMP, MORPH, DIFF #### [address] [address] Admission Risk Screen - Adul ton 04-07-2023 [...] AlertFor Ebola-like Symptoms: Isolate Patient and Notify Provider/Market Development Manager For Contact: Notify Provider/Market Development Manager Advance Directive: Advance Directive/DNRyes Advance Directive typeLiving Will Living Will AvailabilityLiving Will not available now Living Will [id number] Zamudio Fall Screen: History of falling (immediate or [...] Communicatenone Learning Preferencesaudio Cultural Considerationsnone Developmental Considerationsnone Mandaeism Considerationsnone Learning Assessment (Other Learner): Other learner availableno Depression Screen: During the past month, have you often been bothered by feeling down, depressed or hopelessno During the past month, have you often had little interest or pleasure in doing thingsno Have you had any thoughts of harming anyone elseno [place] Suicide: Risk Screen Not Applicable/Able to Answerable to be screened In the Past Month: Have you wished you were or could go to sleep and not wake upno In the Past Month: Have you had any actual thoughts of killing yourselfno Lifetime: Have you ever done, started to do, or prepared to do anything to end your lifeno [place] Suicide Risknegative Adult Nutrition Screen: Have you [...] Spiritual Screen: Are there any cultural, spiritual, yarsanism practices/values/needs that are important for us to knowno CAGE: Is this an injured patient at a Trauma Center ([facility]/[place] /[place]): no Vaccinations: Vaccination - Influenza Vaccination Screen: [...] problem Kenrick (more content not included)... Normal [facility] BMPon 04-07-2023 BUN/Creatinine Ratio 18.7 ratio Normal 10.0-22.0 [facility] Comment on above: Performed By: #### G FR, MG, LIP, MDW, CBC, CMP, MORPH, DIFF #### [id number] [place], [place] [address] Calcium [Mass/Vol] 8.8 mg/dL Normal 8.7-10.4 [facility] ([place]) Comment on above: Performed By: #### G FR, MG, LIP, MDW, CBC, CMP, MORPH, DIFF #### [id number] [place], [place] [address] Chloride [Moles/Vol] 114 mmol/L High 98-110 [facility] Comment on above: Performed By: #### G FR, MG, LIP, MDW, CBC, CMP, MORPH, DIFF #### [address] [address] CO2 [Moles/Vol] 23 mmol/L Normal 22-32 [facility] ([place] Comment on above: Performed By: #### G FR, MG, LIP, MDW, CBC, CMP, MORPH, DIFF #### [address] [address] Creatinine [Mass/Vol] 1.07 mg/dL Normal 0.60-1.40 [facility] ([place]) Comment on above: Performed By: #### G FR, MG, LIP, MDW, CBC, CMP, MORPH, DIFF #### [address] [address] Electrolyte Balance 12.0 mEq/L Normal 4.0-15.0 [facility] ([place] Comment on above: Performed By: #### G FR, MG, LIP, MDW, CBC, CMP, MORPH, DIFF #### [address] [address] Glucose [Mass/Vol] 88 mg/dL Normal 82-115 [facility] ([place]) Comment on above: Performed By: #### G FR, MG, LIP, MDW, CBC, CMP, MORPH, DIFF #### [address] [address] Potassium [Moles/Vol] 3.6 mmol/L Normal 3.5-5.0 [facility] ([place]) Comment on above: Result Comment: Spec imen slightly hemolyzed. Performed By: #### G FR, MG, LIP, MDW, CBC, CMP, MORPH, DIFF #### [address] [address] Sodium [Moles/Vol] 149 mmol/L High 136-145 [facility] ([place]) Comment on above: Performed By: #### G FR, MG, LIP, MDW, CBC, CMP, MORPH, DIFF #### [id number] [place], [place] [address] Urea nitrogen [Mass/Vol] 20.0 mg/dL Normal 8.0-22.0 [facility] ([place] Comment on above: Performed By: #### G FR, MG, LIP, MDW, CBC, CMP, MORPH, DIFF #### [id number] [place], [place] [address] CBCon 04-07-2023 Erythrocyte distribution width (RBC) [Ratio] 17.7 % High 11.5 - 14.5 [facility] Comment on above: Performed By: #### C BC #### [facility] [address] [place] [address] Hematocrit (Bld) [Volume fraction] 31.4 % Low 41.0 - 52.0 [facility] Comment on above: Performed By: #### C BC #### [facility] [address] [place] [address] Hemoglobin (Bld) [Mass/Vol] 10.2 g/dL Low 13.5 - 17.5 [facility] Comment on above: Performed By: #### C BC #### [facility] [address] [place] [address] MCHC (RBC) [Mass/Vol] 32.5 g/dL Normal 32.0 - 36.0 [facility] Comment on above: Performed By: #### C BC #### [facility] [address] [place] [address] MCV (RBC) [Entitic vol] 85 fL Normal 80 - 100 [facility] Comment on above: Performed By: #### C BC #### [facility] [address] [place] [address] NUCLEATED RBC 0.0 /100 WBC Normal 0.0-0.0 [facility] Comment on above: Performed By: #### C BC #### [facility] [address] [place] [address] Platelets (Bld) [#/Vol] 321 10*3/uL Normal 150 - 450 [facility] Comment on above: Performed By: #### C BC #### [facility] [address] [place] [address] RBC 3.70 x10E12/L Low 4.50 - 5.90 [facility] Comment on above: Performed By: #### C BC #### [facility] [address] [place] [address] WBC (Bld) [#/Vol] 11.2 10*3/uL Normal 4.4 - 11.3 [facility] Comment on above: Performed By: #### C BC #### [facility] [address] [place] [address] Erythrocyte distribution width (RBC) [Ratio] 18.0 % High 11.5-15.5 [facility] ([place] Comment on above: Performed By: #### G FR, BMP, ANEU, CBC, ADIFF #### [address] [address] Hematocrit (Bld) [Volume fraction] 31.1 % Low 40.0-52.0 [facility] ([place] Comment on above: Performed By: #### G FR, BMP, ANEU, CBC, ADIFF #### [address] [address] Hgb 10.2 G/dL Low 13.0-17.5 [facility] ([place] Comment on above: Performed By: #### G FR, BMP, ANEU, CBC, ADIFF #### [address] [address] MCH (RBC) [Entitic mass] 27.4 pg Normal 27.0-33.0 [facility] ([place] Comment on above: Performed By: #### G FR, BMP, ANEU, CBC, ADIFF #### [address] [address] MCHC 32.9 G/dL Normal 32.0-36.0 [facility] ([place] Comment on above: Performed By: #### G FR, BMP, ANEU, CBC, ADIFF #### [address] [address] MCV (RBC) [Entitic vol] 83.2 fL Normal 81.0-100.0 A [facility] ([place] Comment on above: Performed By: #### G FR, BMP, ANEU, CBC, ADIFF #### [address] [address] Platelet 304 10 3/mcL Normal 150-450 [facility] ([place] Comment on above: Performed By: #### G FR, BMP, ANEU, CBC, ADIFF #### [address] [address] Platelet mean volume (Bld) [Entitic vol] 8.1 fL Normal 6.4-10.5 [facility] ([place] Comment on above: Performed By: #### G FR, BMP, ANEU, CBC, ADIFF #### [address] [address] RBC 3.74 10 6/mcL Low 4.50-6.00 [facility] ([place] Comment on above: Performed By: #### G FR, BMP, ANEU, CBC, ADIFF #### [address] [address] WBC 13.8 10 3/mcL High 4.5-10.8 [facility] ([place] Comment on above: Performed By: #### G FR, BMP, ANEU, CBC, ADIFF #### [address] [address] CBC AND DIFFERENTIALon 04-07 % AUTOMATED IMMATURE GRAN 0.6 % Normal 0.0 - 0.9 [facility] Comment on above: Result Comment: Salome ture Granulocyte Count (IG) includes promyelocytes, myelocytes and metamyelocytes but does not include bands. Percent differential counts (%) should be interpreted in the context of the absolute cell counts (cells/L). Performed By: #### C BCDF #### [facility] [address] [place] [address] Basophils (Bld) [#/Vol] 0.04 10*3/uL Normal 0.00 - 0.10 [facility] Comment on above: Performed By: #### C BCDF #### [facility] [address] [place] [address] Basophils/100 WBC (Bld) 0.3 % Normal 0.0 - 2.0 [facility] Comment on above: Performed By: #### C BCDF #### [facility] [address] [place] [address] Eosinophils (Bld) [#/Vol] 0.02 10*3/uL Normal 0.00 - 0.70 [facility] Comment on above: Performed By: #### C BCDF #### [facility] [address] [place] [address] Eosinophils/100 WBC (Bld) 0.1 % Normal 0.0 - 6.0 [facility] Comment on above: Performed By: #### C BCDF #### [facility] [address] [place] [address] Erythrocyte distribution width (RBC) [Ratio] 17.9 % High 11.5 - 14.5 [facility] Comment on above: Performed By: #### C BCDF #### [facility] [address] [place] [address] Hematocrit (Bld) [Volume fraction] 31.9 % Low 41.0 - 52.0 [facility] Comment on above: Performed By: #### C BCDF #### [facility] [address] [place] [address] Hemoglobin (Bld) [Mass/Vol] 10.3 g/dL Low 13.5 - 17.5 [facility] Comment on above: Performed By: #### C BCDF #### [facility] [address] [place] [address] Lymphocytes (Bld) [#/Vol] 1.79 10*3/uL Normal 1.20 - 4.80 [facility] Comment on above: Performed By: #### C BCDF #### [facility] [address] [place] [address] Lymphocytes/100 WBC (Bld) 12.5 % Normal 13.0 - 44.0 [facility] Comment on above: Performed By: #### C BCDF #### [facility] [address] [place] [address] MCHC (RBC) [Mass/Vol] 32.3 g/dL Normal 32.0 - 36.0 [facility] Comment on above: Performed By: #### C BCDF #### [facility] [address] [place] [address] MCV (RBC) [Entitic vol] 85 fL Normal 80 - 100 [facility] Comment on above: Performed By: #### C BCDF #### [facility] [address] [place] [address] Monocytes (Bld) [#/Vol] 1.29 10*3/uL High 0.10 - 1.00 [facility] Comment on above: Performed By: #### C BCDF #### [facility] [address] [place] [address] Monocytes/100 WBC (Bld) 9.0 % Normal 2.0 - 10.0 [facility] Comment on above: Performed By: #### C BCDF #### [facility] [address] [place] [address] Neutrophils (Bld) [#/Vol] 11.12 10*3/uL High 1.20 - 7.70 [facility] Comment on above: Performed By: #### C BCDF #### [facility] [address] [place] [address] Neutrophils/100 WBC (Bld) 77.5 % Normal 40.0 - 80.0 [facility] Comment on above: Performed By: #### C BCDF #### [facility] [address] [place] [address] NUCLEATED RBC 0.0 /100 WBC Normal 0.0-0.0 [facility] Comment on above: Performed By: #### C BCDF #### [facility] [address] [place] [address] Platelets (Bld) [#/Vol] 299 10*3/uL Normal 150 - 450 [facility] Comment on above: Performed By: #### C BCDF #### [facility] [address] [place] [address] RBC 3.75 x10E12/L Low 4.50 - 5.90 [facility] Comment on above: Performed By: #### C BCDF #### [facility] [address] [place] [address] WBC (Bld) [#/Vol] 14.3 10*3/uL High 4.4 - 11.3 [facility] Comment on above: Performed By: #### C BCDF #### [facility] [address] [place] [address] COAGULATION SCREENon 023 aPTT Coag (Bld) [Time] 30 s Normal 27 - 38 [facility] Comment on above: Result Comment: Note new reference range as of 03/13/2023 at 10:00am. Performed By: #### C OAGS #### [facility] [address] [place] [address] PT Coag (PPP) [Time] 11.9 s Normal 9.8 - 12.8 [facility] [place], [facility] Comment on above: Result Comment: Note new reference range as of 03/13/2023 at 10:00am. Performed By: #### C OAGS #### [facility] [address] [place] [address] PT, INR 1.1 Normal 0.9 - 1.1 [facility] Comment on above: Performed By: #### C OAGS #### [facility] [address] [place] [address] Discharge [id number] Discharge Profile2 Discharge Orders: Anticipated Discharge Date: Anticipated Discharge [id number] Problem List: Additional Dx: Esophageal perforation: Catalog [...] and regular diet after that. Follow-Up Appointment: [facility] Carden[facility] Call to Schedule in2 weeks Phone [phone] Hospital Course (Home Care/Gold Form): Hospital Course: [...] Medication Reconciliation and Orders Completedby Physician Reviewing ProviderDaniandra Szymanski MD (Resident) at 07-Apr-2023 13:50:39 Electronic Signatures: Mindy Szymanski ( (Resident)) (Signed 07-Apr-2023 17:36) Authored: Discharge Orders, Thoracic, Hospital Course (Home Care/Gold Form), Provider FINAL REVIEW of Orders, Gold Form - Certified Nursing Assistant Summary Last Updated: 07-Apr-2023 17:36 by Mindy Szymanski ( (Resident)) Normal [facility] Electrocardiogram 12 Leadon 04-07-2023 Electrocardiogram 12 Lead Ventricular Rate 66 Atrial Rate 66 P-R Interval 142 QRS Duration 102 Q-T Interval 448 QTC Calculation(Bazett) 469 P [place] 48 R [place] 23 T [place] 14 QRS Count 11 Q Onset 219 P Onset 148 P Offset 209 T Offset 443 QTC Fredericia 462 Diagnosis Class Abnormal Diagnosis Normal sinus rhythm Possible Inferior infarct , age undetermined Abnormal ECG No previous ECGs available Confirmed by Thelma Smyth (1954) on 04/10/2023 10:28:27 PM Normal [facility] GI ESOPHAGRAMon 04-07-2023 GI ESOPHAGRAM Patient Name: MINDY ROSARIO STUDY: GI ESOPHAGRAM; 04/07/2023 2:27 am INDICATION: Concern for Esophageal Perforation . COMPARISON: CT chest dated 04/06/2023 ACCESSION NUMBER(S): [id number] ORDERING CLINICIAN: CONNIE TORRES TECHNIQUE: Initial police shift commander radiograph of the esophagus was obtained. Multiple fluoroscopic spot images were obtained after the administration of 80 mL of gastrografin contrast. The patient tolerated the procedure well. Fluoroscopic time was 0.2 minutes. FINDINGS: Initial police shift commander image demonstrates an unremarkable upper chest. Fluoroscopic [...] as stated. This study was interpreted at [facility], [place], [place]. The critical information above was relayed directly by resident Dr. Sobeida Dougherty by telephone to CONNIE TORRES on 04/07/2023 at 2:49 am with readback verification. Electronically signed by: CLAYTON MONSIVAIS MD Normal [facility] HEPATIC FUNCTION PANELon Albumin [Mass/Vol] 3.9 g/dL Normal 3.4 - 5.0 [facility] Comment on above: Performed By: #### H EPFP #### [facility] [address] [place] [address] Performed By: #### R ENAL #### [facility] [address] [place] [address] ALP [Catalytic activity/Vol] 46 U/L Normal 33 - 136 [facility] Comment on above: Performed By: #### H EPFP #### [facility] [address] [place] [address] ALT [Catalytic activity/Vol] 13 U/L Normal 10 - 52 [facility] Comment on above: Result Comment: Suyapa ents treated with Sulfasalazine may generate falsely decreased results for ALT. Performed By: #### H EPFP #### [facility] [address] [place] [address] AST [Catalytic activity/Vol] 31 U/L Normal 9 - 39 [facility] Comment on above: Result Comment: MILD HEMOLYSIS DETECTED. The result may be falsely elevated due to hemolysis or other interferents. Clinical correlation is recommended. Repeat testing may be considered. Performed By: #### H EPFP #### [facility] [address] [place] [address] Bilirubin [Mass/Vol] 0.5 mg/dL Normal 0.0 - 1.2 [facility] [place] Comment on above: Performed By: #### H EPFP #### [facility] [address] [place] [address] Bilirubin.indirect [Mass/Vol] 0.1 mg/dL Normal 0.0 - 0.3 [facility] Comment on above: Result Comment: MILD HEMOLYSIS DETECTED. The result may be falsely decreased due to hemolysis or other interferents. Clinical correlation is recommended. Repeat testing may be considered. Performed By: #### H EPFP #### [facility] [address] [place] [address] Protein [Mass/Vol] 5.9 g/dL Low 6.4 - 8.2 [facility] Comment on above: Performed By: #### H EPFP #### [facility] [address] [place] [address] LACTATEon 04-07-2023 Lactate [Moles/Vol] 0.9 mmol/L Normal 0.4 - 2.0 [facility] Comment on above: Result Comment: Monica puncture immediately after or during the administration of Metamizole may lead to falsely low results. Testing should be performed immediately prior to Metamizole dosing. Performed By: #### L ACT #### [facility] [address] [place] [address] MAGNESIUMon 04-07-2023 Magnesium [Mass/Vol] 2.02 mg/dL Normal 1.60 - 2.40 [facility] Comment on above: Performed By: #### M G #### [facility] [address] [place] [address] Order Reconciliationon 04-07 Order Reconciliation Page 1 Discharge Reconciliation Document Reconciliation Type: Discharge requested on behalf of Dariel Campbell (Resident) done by Dariel Campbell ( (Resident)) Discharge - Partial Reconciliation: 07-Apr-2023 13:39 by: Mindy Szymanski ( (Resident)) Discharge - Reconciliation: 07-Apr-2023 17:33 by: Mindy Szymanski ( (Resident)) Discharge - Reset to Incomplete: 08-Apr-2023 11:44 by: Dariel Campbell (Resident)) Discharge - Reconciliation: 08-Apr-2023 11:46 by: Dariel Campbell ( (Resident)) Discharge - Reset to Incomplete: 08-Apr-2023 12:38 by: Dariel Campbell (Resident)) Discharge - Reconciliation: 08-Apr-2023 12:39 by: Dariel Campbell ( (Resident)) Discharge - Reset to Incomplete: 08-Apr-2023 12:40 by: Dariel Campbell (Resident)) Discharge - Reconciliation: 08-Apr-2023 12:40 by: Dariel Campbell (Resident)) Home Medications EnteredHOME MEDICATIONS AT DISCHARGE [...] g oral (more content not included)... Normal [facility] Order Reconciliation Page 1 Admission Reconciliation Document Reconciliation Type: Admission requested on behalf of Connie Torres (Resident) done by Connie Torres (Resident)) Admission - Partial Reconciliation: 07-Apr-2023 01:21 by: Connie Torres ( (Resident)) Admission - Reconciliation: 07-Apr-2023 01:29 by: Connie Torres ( (Resident)) Home MedicationsEnteredLast Dose TakenReconciled with current Order Reconciliation Comment/ Additional Information acetaminophen 325 mg oral tablet 2 tab(s) orally every 6 hours, As needed, Pain - Mild (1-3) 07-Apr-2023 NoLongerTaking amitriptyline 10 mg oral tablet 2 tab(s) orally once (at bedtime) 07-Apr-2023 NoLongerTaking amLODIPine 10 mg oral tablet 1 tab(s) orally once a [id number] Reviewed and Held aspirin 81 mg oral tablet, chewable 1 tab(s) orally once a [id number] Reviewed and Held atorvastatin 40 mg oral tablet 1 tab(s) orally once (at bedtime)07-Apr-2023 Reviewed and Held Benicar HCT 40 mg-25 mg oral tablet 1 tab(s) orally once a day 07-Apr-2023 NoLongerTaking citalopram 40 mg oral tablet 1 tab(s) orally once a [id number] Reviewed and Held clopidogrel 75 mg oral tablet 1 tab(s) orally once a [id number] Reviewed and Held dicyclomine 20 mg oral tablet 1 tab(s) orally 4 times a [id number] Reviewed and Held docusate sodium 100 mg oral capsule 1 cap(s) orally 2 times a day, As Needed for constipation 07-Apr-2023 NoLongerTaking fenofibrate 145 mg oral tablet 1 tab(s) orally once a [id number] Reviewed and Held gabapentin 400 mg oral tablet 1 dose(s) orally 3 times a day 07-Apr-2023 NoLongerTaking levETIRAcetam 500 mg oral tablet 1 tab(s) orally 2 times a day 07-Apr-2023 NoLongerTaking lisinopril 20 mg oral tablet 1 tab(s) orally once a [id number] Reviewed and Held magnesium oxide 400 mg (241.3 mg elemental magnesium) oral tablet 1 tab(s) orally once a day 07-Apr-2023 NoLongerTaking meloxicam 15 mg oral tablet 1 tab(s) orally once a [id number] Reviewed and Held metoprolol succinate 25 mg oral tablet, extended release 1 tab(s) orally once a [id number] Reviewed and Held polyethylene glycol 3350 oral powder for reconstitution 17 gram(s) orally once a day, As needed, constipation 07-Apr-2023 NoLongerTaking prochlorperazine 10 mg oral tablet 1 tab(s) orally 3 times a [id number]-3085 Reviewed and Held promethazine 25 mg oral tablet 1 tab(s) orally every 6 -[id number]-7041 Reviewed and Held promethazine 25 mg rectal suppository 1 suppository(ies) rectal 2 times a day, As [id number] Reviewed and Held Protonix 40 mg oral [...] mg IntraVenous Push Every 12 Hours Normal [facility] Patient Profile - Adult v2on 04-07-2023 Patient Profile - Adult v2 Profile: Initial Info: How to be AddressedDaniel Spoken Language PreferredEnglish Stated Reason for Admissionvomiting and nausea Wants Family/Rep Notified of Admissionno Notify PCPdo not notify PCP Informed of Patient Visiting Rightsyes Arrived Fromhospital Patient Belongingsnone Medications Brought to Hospitalno General Health: Weight in kg81.5 kilogram(s)(1) Weight in fna543.6 pound(s) Weight Methodactual (measured) (1) Scale Typestanding (1) Height in cm180.1 centimeter(s) Height in feet5 feet Height in xylnes48.94 inch(es) Height Methodstated BMI (kg/m2)25.126 square meter [...] morphine: Drug, Unknown, Active Electronic Signatures: Sol Montoya) (Signed 07-Apr-2023 02:53) Authored: Initial Info, General Health, RSP Based Care, Substance, Health Mgmt, Relationship/Environ, Additional Information Last Updated: 07-Apr-2023 02:53 by Jan, Sol (CARIN) References: 1. Data Referenced From 1. Vital Signs 07-Apr-2023 02:35 Normal [facility] RENAL FUNCTION PANELon 04-07 Anion gap [Moles/Vol] 14 mmol/L Normal 10 - 20 [facility] Comment on above: Performed By: #### R ENAL #### [facility] [address] [place] [address] Calcium [Mass/Vol] 9.1 mg/dL Normal 8.6 - 10.6 [facility] Comment on above: Performed By: #### R ENAL #### [facility] [address] [place] [address] Chloride [Moles/Vol] 112 mmol/L High 98 - 107 [facility], [place], [facility] Comment on above: Performed By: #### R ENAL #### [facility] [address] [place] [address] Creatinine [Mass/Vol] 1.07 mg/dL Normal 0.50 - 1.30 [facility] Comment on above: Performed By: #### R ENAL #### [facility] [address] [place] [address] GFR/1.73 sq M.predicted among non-blacks MDRD (S/P/Bld) [Vol rate/Area] 77 mL/min/{1.73_m2} Normal >90 [facility] Comment on above: Result Comment: CALC ULATIONS OF ESTIMATED GFR ARE PERFORMED USING THE 2020 CKD-EPI STUDY REFIT EQUATION WITHOUT THE RACE VARIABLE FOR THE IDMS-TRACEABLE CREATININE METHODS. https://jasn.asnjournals.org/content/early/ASN.173 2517613 Performed By: #### R ENAL #### [facility] [address] [place] [address] Glucose [Mass/Vol] 83 mg/dL Normal 74 - 99 [facility] Comment on above: Performed By: #### R ENAL #### [facility] [address] [place] [address] HCO3 (Bld) [Moles/Vol] 24 mmol/L Normal 21 - 32 [facility] Comment on above: Performed By: #### R ENAL #### [facility] [address] [place] [address] Phosphate [Mass/Vol] 3.3 mg/dL Normal 2.5 - 4.9 [facility], [place], [facility] Comment on above: Result Comment: The performance [...] considered. Performed By: #### R ENAL #### [facility] [address] [place] [address] Potassium [Moles/Vol] 3.9 mmol/L Normal 3.5 - 5.3 [facility] Comment on above: Result Comment: MILD HEMOLYSIS DETECTED. The result may be falsely elevated due to hemolysis or other interferents. Clinical correlation is recommended. Repeat testing may be considered. Performed By: #### R ENAL #### [facility] [address] [place] [address] Sodium [Moles/Vol] 146 mmol/L High 136 - 145 [facility] Comment on above: Performed By: #### R ENAL #### [facility] [address] [place] [address] Urea nitrogen [Mass/Vol] 20 mg/dL Normal 6 - 23 [facility] Comment on above: Performed By: #### R ENAL #### [facility] [address] [place] [address] CHEST 1 VIEWon 04-07-2023 CHEST 1 VIEW Patient Name: MINDY ROSARIO STUDY: CHEST 1 VIEW; 04/07/2023 9:46 am INDICATION: Follow UP CXR . COMPARISON: Chest radiograph dated 04/07/2023, 2:[address] 04/06/2023 ACCESSION NUMBER(S): [id number] ORDERING CLINICIAN: CONNIE TORRES FINDINGS: AP radiograph of the chest [...] Electronically signed by: JURGEN MEDEL MD Normal [facility] CHEST 1 VIEW Patient Name: MINDY ROSARIO STUDY: CHEST 1 VIEW; 04/07/2023 2:21 am INDICATION: New Admission, Concern for Esophageal Perforation . COMPARISON: Chest CT 04/06/2023 ACCESSION NUMBER(S): [id number] ORDERING CLINICIAN: CONNIE TORRES FINDINGS: PA radiograph of the chest, [...] Electronically signed by: JURGEN MEDEL MD Normal [facility] TYPE + SCREENon 04-07-2023 ABO TYPE O Normal [facility] Comment on above: Performed By: #### T +S #### [facility] [address] [place] [id number] RH TYPE Positive Normal [facility] Comment on above: Performed By: #### T +S #### [facility] [address] [place] [address] .Auto Diffon 04-06-2023 Basophil, Absolute 0.0 10 3/mcL Normal 0.0-0.2 [facility] [place] Comment on above: Performed By: #### G FR, MG, LIP, MDW, CBC, CMP, MORPH, DIFF #### [address] [address] Basophils/100 WBC (Bld) 0.1 % Normal 0.0-2.5 A [facility] ([place]) Comment on above: Performed By: #### G FR, MG, LIP, MDW, CBC, CMP, MORPH, DIFF #### [address] [address] Eosinophil, Absolute 0.0 10 3/mcL Normal 0.0-0.4 [facility] ([place]) Comment on above: Performed By: #### G FR, MG, LIP, MDW, CBC, CMP, MORPH, DIFF #### [address] [address] Eosinophils/100 WBC (Bld) 0.0 % Normal 0.0-7.0 [facility] ([place]) Comment on above: Performed By: #### G FR, MG, LIP, MDW, CBC, CMP, MORPH, DIFF #### [address] [address] Lymphocyte, Absolute 1.0 10 3/mcL Normal 0.8-3.9 [facility] ([place] Comment on above: Performed By: #### G FR, MG, LIP, MDW, CBC, CMP, MORPH, DIFF #### [address] [address] Lymphocytes/100 WBC (Bld) 4.3 % Low 10.0-50.0 [facility] ([place] Comment on above: Performed By: #### G FR, MG, LIP, MDW, CBC, CMP, MORPH, DIFF #### [address] [address] Monocyte, Absolute 1.7 10 3/mcL High 0.2-1.0 [facility] [place] Comment on above: Performed By: #### G FR, MG, LIP, MDW, CBC, CMP, MORPH, DIFF #### [place] [id number] [place], [place] [address] Monocytes/100 WBC (Bld) 7.7 % Normal 1.7-13.0 A [facility] ([place] Comment on above: Performed By: #### G FR, MG, LIP, MDW, CBC, CMP, MORPH, DIFF #### [address] [address] Neutrophils/100 WBC (Bld) 87.9 % High 37.0-80.0 [facility] ([place]) Comment on above: Performed By: #### G FR, MG, LIP, MDW, CBC, CMP, MORPH, DIFF #### [address] [address] .GFRon 04-06-2023 GFR Non- 33 ml/min/1.73sqm Normal [facility] ([place]) Comment on above: Result Comment: GFR Population [...] LIP, MDW, CBC, CMP, MORPH, DIFF #### [id number] [place], [place] [address] GFR 40 ml/min/1.73sqm Normal [facility] ([place]) Comment on above: Result Comment: GFR Population [...] LIP, MDW, CBC, CMP, MORPH, DIFF #### [place] [address] .MDWon 04-06-2023 Monocyte Distribution Width 16.89 Normal 0.00-20.00 [facility] ([place] Comment on above: Result Comment: For ED adult patients suspected of sepsis, MDW<=20.0 does not rule out sepsis or risk of sepsis Performed By: #### G FR, MG, LIP, MDW, CBC, CMP, MORPH, DIFF #### [place] [address] Monocyte Distribution Width 18.24 Normal 0.00-20.00 [facility] ([place] Comment on above: Result Comment: For ED adult patients suspected of sepsis, MDW<=20.0 does not rule out sepsis or risk of sepsis Performed By: #### G FR, MG, LIP, MDW, CBC, CMP, MORPH, DIFF #### [place] [address] .Manual Diffon 04-06-2023 Basophil %, Manual 0.0 % Normal 0.0-2.5 [facility] ([place]) Comment on above: Performed By: #### G FR, MG, LIP, MDW, CBC, CMP, MORPH, DIFF #### [place] [address] Basophil, Abs Manual 0.0 10 3/mcL Normal 0.0-0.2 [facility] ([place] Comment on above: Performed By: #### G FR, MG, LIP, MDW, CBC, CMP, MORPH, DIFF #### [place] [address] Eosinophil %, Manual 0.0 % Normal 0.0-7.0 [facility] [place] Comment on above: Performed By: #### G FR, MG, LIP, MDW, CBC, CMP, MORPH, DIFF #### [address] [address] Eosinophil, Abs Manual 0.0 10 3/mcL Normal 0.0-0.4 [facility] ([place] Comment on above: Performed By: #### G FR, MG, LIP, MDW, CBC, CMP, MORPH, DIFF #### [address] [address] Lymphocyte %, Manual 6.0 % Low 10.0-50.0 [facility] [place] Comment on above: Performed By: #### G FR, MG, LIP, MDW, CBC, CMP, MORPH, DIFF #### [address] [address] Lymphocyte, Abs Manual 1.3 10 3/mcL Normal 0.8-3.9 [facility] ([place] Comment on above: Performed By: #### G FR, MG, LIP, MDW, CBC, CMP, MORPH, DIFF #### [address] [address] Monocyte %, Manual 3.0 % Normal 1.7-13.0 [facility] ([place] Comment on above: Performed By: #### G FR, MG, LIP, MDW, CBC, CMP, MORPH, DIFF #### [address] [address] Monocyte, Abs Manual 0.7 10 3/mcL Normal 0.2-1.0 [facility] ([place] Comment on above: Performed By: #### G FR, MG, LIP, MDW, CBC, CMP, MORPH, DIFF #### [address] [address] Neutrophil %, Manual 91.0 % High 37.0-80.0 [facility] [place] Comment on above: Performed By: #### G FR, MG, LIP, MDW, CBC, CMP, MORPH, DIFF #### [address] [address] Neutrophil, Abs Manual 20.5 10 3/mcL High 2.9-6.2 [facility] ([place] Comment on above: Performed By: #### G FR, MG, LIP, MDW, CBC, CMP, MORPH, DIFF #### [address] [address] Nucleated RBC 0.0 /100 WBC Normal [facility] ([place] Comment on above: Performed By: #### G FR, MG, LIP, MDW, CBC, CMP, MORPH, DIFF #### [address] [address] Basophil %, Manual 0.0 % Normal 0.0-2.5 [facility] ([place] Comment on above: Performed By: #### G FR, MG, LIP, MDW, CBC, CMP, MORPH, DIFF #### [address] [address] Basophil, Abs Manual 0.0 10 3/mcL Normal 0.0-0.2 [facility] ([place] Comment on above: Performed By: #### G FR, MG, LIP, MDW, CBC, CMP, MORPH, DIFF #### [address] [address] Eosinophil %, Manual 0.0 % Normal 0.0-7.0 [facility] [place] Comment on above: Performed By: #### G FR, MG, LIP, MDW, CBC, CMP, MORPH, DIFF #### [address] [address] Eosinophil, Abs Manual 0.0 10 3/mcL Normal 0.0-0.4 [facility] ([place] Comment on above: Performed By: #### G FR, MG, LIP, MDW, CBC, CMP, MORPH, DIFF #### [address] [address] Lymphocyte %, Manual 7.0 % Low 10.0-50.0 [facility] [place] Comment on above: Performed By: #### G FR, MG, LIP, MDW, CBC, CMP, MORPH, DIFF #### [address] [address] Lymphocyte, Abs Manual 2.3 10 3/mcL Normal 0.8-3.9 [facility] ([place] Comment on above: Performed By: #### G FR, MG, LIP, MDW, CBC, CMP, MORPH, DIFF #### [address] [address] Monocyte %, Manual 5.0 % Normal 1.7-13.0 [facility] ([place] Comment on above: Performed By: #### G FR, MG, LIP, MDW, CBC, CMP, MORPH, DIFF #### [address] [address] Monocyte, Abs Manual 1.7 10 3/mcL High 0.2-1.0 [facility] ([place] Comment on above: Performed By: #### G FR, MG, LIP, MDW, CBC, CMP, MORPH, DIFF #### [address] [address] Neutrophil %, Manual 88.0 % High 37.0-80.0 [facility] [place] Comment on above: Performed By: #### G FR, MG, LIP, MDW, CBC, CMP, MORPH, DIFF #### [address] [address] Neutrophil, Abs Manual 29.4 10 3/mcL High 2.9-6.2 [facility] ([place] Comment on above: Performed By: #### G FR, MG, LIP, MDW, CBC, CMP, MORPH, DIFF #### [address] [address] Nucleated RBC 0.0 /100 WBC Normal [facility] ([place] Comment on above: Performed By: #### G FR, MG, LIP, MDW, CBC, CMP, MORPH, DIFF #### [address] [address] .Morphon 04-06-2023 Platelet Estimate Normal Normal [facility]) Comment on above: Performed By: #### G FR, MG, LIP, MDW, CBC, CMP, MORPH, DIFF #### [address] [address] Platelet Estimate Normal Normal [facility] ([place] Comment on above: Performed By: #### G FR, MG, LIP, MDW, CBC, CMP, MORPH, DIFF #### [address] [address] .NEUABSon 04-06-2023 Neutrophil, Absolute 19.8 10 3/mcL High 2.9-6.2 A [facility] ([place] Comment on above: Performed By: #### G FR, MG, LIP, MDW, CBC, CMP, MORPH, DIFF #### [place] [address] .Urinalysis Microscopic (AO) on 04-06-2023 UA Fine Granular Casts 0-5 Abnormal [facility] ([place] Comment on above: Performed By: #### G FR, MG, LIP, MDW, CBC, CMP, MORPH, DIFF #### [address] [address] UA Hyal Cast 0-5 Abnormal [facility] ([place]) Comment on above: Performed By: #### G FR, MG, LIP, MDW, CBC, CMP, MORPH, DIFF #### [address] [address] UA RBC 0-5 Abnormal None Seen [facility] ([place] Comment on above: Performed By: #### G FR, MG, LIP, MDW, CBC, CMP, MORPH, DIFF #### [address] [address] UA Squam Epithelial 0-5 Abnormal None Seen [facility] ([place]) Comment on above: Performed By: #### G FR, MG, LIP, MDW, CBC, CMP, MORPH, DIFF #### [address] [address] UA WBC 5-10 Abnormal None Seen [facility] ([place] Comment on above: Performed By: #### G FR, MG, LIP, MDW, CBC, CMP, MORPH, DIFF #### [address] [address] CBCon 04-06-2023 Erythrocyte distribution width (RBC) [Ratio] 18.0 % High 11.5-14.5 [facility] ([place] Comment on above: Performed By: #### G FR, MG, LIP, MDW, CBC, CMP, MORPH, DIFF #### [place] [address] Hematocrit (Bld) [Volume fraction] 34.4 % Low 42.0-52.0 [facility] ([place] Comment on above: Performed By: #### G FR, MG, LIP, MDW, CBC, CMP, MORPH, DIFF #### [place] [address] Hgb 11.4 G/dL Low 14.0-18.0 [facility] ([place] Comment on above: Performed By: #### G FR, MG, LIP, MDW, CBC, CMP, MORPH, DIFF #### [address] [address] MCH (RBC) [Entitic mass] 27.1 pg Normal 27.0-31.2 [facility] ([place] Comment on above: Performed By: #### G FR, MG, LIP, MDW, CBC, CMP, MORPH, DIFF #### [place] [address] MCHC 33.2 G/dL Normal 31.8-35.4 [facility] ([place] Comment on above: Performed By: #### G FR, MG, LIP, MDW, CBC, CMP, MORPH, DIFF #### [place] [address] MCV (RBC) [Entitic vol] 81.6 fL Normal 80.0-94.0 A [facility] ([place] Comment on above: Performed By: #### G FR, MG, LIP, MDW, CBC, CMP, MORPH, DIFF #### [place] [address] Platelet 351 10 3/mcL Normal 130-400 [facility] ([place] Comment on above: Performed By: #### G FR, MG, LIP, MDW, CBC, CMP, MORPH, DIFF #### [place] [address] Platelet mean volume (Bld) [Entitic vol] 8.0 fL Normal 7.4-10.4 [facility] ([place] Comment on above: Performed By: #### G FR, MG, LIP, MDW, CBC, CMP, MORPH, DIFF #### [place] [address] RBC 4.21 10 6/mcL Normal 4.04-6.13 [facility] ([place] Comment on above: Performed By: #### G FR, MG, LIP, MDW, CBC, CMP, MORPH, DIFF #### [place] [address] WBC 22.5 10 3/mcL High 4.6-10.8 [facility] ([place] Comment on above: Performed By: #### G FR, MG, LIP, MDW, CBC, CMP, MORPH, DIFF #### [place] [address] Erythrocyte distribution width (RBC) [Ratio] 18.1 % High 11.5-14.5 [facility] ([place] Comment on above: Performed By: #### G FR, MG, LIP, MDW, CBC, CMP, MORPH, DIFF #### [place] [address] Hematocrit (Bld) [Volume fraction] 40.7 % Low 42.0-52.0 [facility] ([place] Comment on above: Performed By: #### G FR, MG, LIP, MDW, CBC, CMP, MORPH, DIFF #### [place] [address] Hgb 13.5 G/dL Low 14.0-18.0 [facility] ([place] Comment on above: Performed By: #### G FR, MG, LIP, MDW, CBC, CMP, MORPH, DIFF #### [address] [address] MCH (RBC) [Entitic mass] 26.9 pg Low 27.0-31.2 [facility] ([place] Comment on above: Performed By: #### G FR, MG, LIP, MDW, CBC, CMP, MORPH, DIFF #### [address] [address] MCHC 33.1 G/dL Normal 31.8-35.4 [facility] ([place] Comment on above: Performed By: #### G FR, MG, LIP, MDW, CBC, CMP, MORPH, DIFF #### [address] [address] MCV (RBC) [Entitic vol] 81.4 fL Normal 80.0-94.0 A [facility] ([place] Comment on above: Performed By: #### G FR, MG, LIP, MDW, CBC, CMP, MORPH, DIFF #### [address] [address] Platelet 467 10 3/mcL High 130-400 [facility] ([place] Comment on above: Performed By: #### G FR, MG, LIP, MDW, CBC, CMP, MORPH, DIFF #### [address] [address] Platelet mean volume (Bld) [Entitic vol] 8.1 fL Normal 7.4-10.4 [facility] ([place] Comment on above: Performed By: #### G FR, MG, LIP, MDW, CBC, CMP, MORPH, DIFF #### [address] [address] RBC 5.00 10 6/mcL Normal 4.04-6.13 [facility] ([place] Comment on above: Performed By: #### G FR, MG, LIP, MDW, CBC, CMP, MORPH, DIFF #### [address] [address] WBC 33.4 10 3/mcL High 4.6-10.8 [facility] ([place]) Comment on above: Performed By: #### G FR, MG, LIP, MDW, CBC, CMP, MORPH, DIFF #### [address] [address] CMPon 04-06-2023 Albumin Level 4.5 G/dL Normal 3.4-4.8 [facility] ([place] Comment on above: Performed By: #### G FR, MG, LIP, MDW, CBC, CMP, MORPH, DIFF #### [address] [address] Albumin/Globulin [Mass ratio] 1.2 {ratio} Normal 1.1-2.5 [facility] ([place] Comment on above: Performed By: #### G FR, MG, LIP, MDW, CBC, CMP, MORPH, DIFF #### [address] [address] ALP [Catalytic activity/Vol] 76 U/L Normal 40-135 [facility] ([place]) Comment on above: Performed By: #### G FR, MG, LIP, MDW, CBC, CMP, MORPH, DIFF #### [address] [address] ALT [Catalytic activity/Vol] 15 U/L Low 16-63 [facility] ([place]) Comment on above: Performed By: #### G FR, MG, LIP, MDW, CBC, CMP, MORPH, DIFF #### [address] [address] AST [Catalytic activity/Vol] 24 U/L Normal 10-40 [facility] ([place]) Comment on above: Performed By: #### G FR, MG, LIP, MDW, CBC, CMP, MORPH, DIFF #### [address] [address] Bili Total 0.5 mg/dL Normal 0.2-1.0 [facility] ([place]) Comment on above: Result Comment: Use of this assay is not recommended for patients undergoing treatment with eltrombopag due to the potential for falsely elevated results. Performed By: #### G FR, MG, LIP, MDW, CBC, CMP, MORPH, DIFF #### [address] [address] BUN/Creatinine Ratio 7 ratio Normal 7-27 [facility] [place] Comment on above: Performed By: #### G FR, MG, LIP, MDW, CBC, CMP, MORPH, DIFF #### [address] [address] Calcium [Mass/Vol] 11.1 mg/dL High 8.4-10.2 [facility] ([place]) Comment on above: Performed By: #### G FR, MG, LIP, MDW, CBC, CMP, MORPH, DIFF #### [address] [address] Chloride [Moles/Vol] 105 mmol/L Normal 98-107 [facility] [place] Comment on above: Performed By: #### G FR, MG, LIP, MDW, CBC, CMP, MORPH, DIFF #### [address] [address] CO2 [Moles/Vol] 21 mmol/L Low 23-31 [facility] ([place]) Comment on above: Performed By: #### G FR, MG, LIP, MDW, CBC, CMP, MORPH, DIFF #### [address] [address] Creatinine [Mass/Vol] 2.06 mg/dL High 0.70-1.30 [facility] ([place]) Comment on above: Performed By: #### G FR, MG, LIP, MDW, CBC, CMP, MORPH, DIFF #### [address] [address] Electrolyte Balance 20.0 mEq/L High 4.0-15.0 [facility] ([place]) Comment on above: Performed By: #### G FR, MG, LIP, MDW, CBC, CMP, MORPH, DIFF #### [address] [address] Globulin 3.6 G/dL Normal [facility] ([place]) Comment on above: Performed By: #### G FR, MG, LIP, MDW, CBC, CMP, MORPH, DIFF #### [address] [address] Glucose [Mass/Vol] 151 mg/dL High 80-115 [facility] ([place]) Comment on above: Performed By: #### G FR, MG, LIP, MDW, CBC, CMP, MORPH, DIFF #### [address] [address] Potassium [Moles/Vol] 3.8 mmol/L Normal 3.5-5.1 [facility] ([place]) Comment on above: Performed By: #### G FR, MG, LIP, MDW, CBC, CMP, MORPH, DIFF #### [address] [address] Sodium [Moles/Vol] 146 mmol/L High 136-145 [facility] ([place]) Comment on above: Performed By: #### G FR, MG, LIP, MDW, CBC, CMP, MORPH, DIFF #### [address] [address] Total Protein 8.1 G/dL Normal 6.4-8.2 [facility] ([place]) Comment on above: Performed By: #### G FR, MG, LIP, MDW, CBC, CMP, MORPH, DIFF #### [address] [address] Urea nitrogen [Mass/Vol] 15 mg/dL Normal 7-18 [facility] ([place]) Comment on above: Performed By: #### G FR, MG, LIP, MDW, CBC, CMP, MORPH, DIFF #### [address] [address] [address] THORAX W/O CONTRASTon CT THORAX W/O [...] 04/06/2023 9:04:26 AM Ordering Provider: JAMEL MARCUS [facility] ([place]) LABORATORYOrdered By: SYSTEM SYSTEM on 04-06-2023 Basophils (Bld) [#/Vol] 0.1 103/mcL Invalid Interpretation Code 0.0 - 0.3 10^3/mcL AH Workflow SS Basophils/100 WBC (Bld) 0.7 % Invalid Interpretation Code 0.0 - 2.5 % AH Workflow SS Calcium [Mass/Vol] 8.8 mg/dL Invalid Interpretation Code 8.7 - 10.4 mg/dL AH ADM SS Chloride [Moles/Vol] 114 mmol/L Invalid Interpretation Code 98 - 110 mEq/L AH ADM SS CO2 [Moles/Vol] 23 mmol/L Invalid Interpretation Code 22 - 32 mEq/L AH ADM SS Creatinine [Mass/Vol] 1.07 mg/dL Invalid [...] Invalid Interpretation Code 40.0 - 52.0 % AH Workflow SS Hemoglobin (Bld) [Mass/Vol] 10.2 G/dL [...] Invalid Interpretation Code 81.0 - 100.0 fL AH Workflow SS Monocytes (Bld) [#/Vol] 1.3 103/mcL Invalid Interpretation Code 0.1 - 1.4 10^3/mcL AH Workflow SS Monocytes/100 WBC (Bld) 9.4 % Invalid Interpretation Code 2.0 - 13.0 % AH Workflow SS Neutrophils (Bld) [#/Vol] 10.9 103/mcL Invalid Interpretation Code 2.3 - 8.1 10^3/mcL AH Workflow SS Neutrophils/100 WBC (Bld) 79.2 % Invalid Interpretation Code 50.0 - 75.0 % AH Workflow SS Platelet mean volume (Bld) [Entitic [...] Invalid Interpretation Code 8.0 - 22.0 mg/dL ADM SS Urea nitrogen/Creatinine [Mass ratio] 18.7 [...] Lactic Acid Lvl 1.5 mmol/L Normal 0.4-2.0 [facility] ([place] Comment on above: Order Comment: Order ed secondary to Lactic Acid result greater than or equal to 2.0 Performed By: #### G FR, MG, LIP, MDW, CBC, CMP, MORPH, DIFF #### [address] [address] Lactic Acid Lvl 2.0 mmol/L Normal 0.4-2.0 [facility] ([place]) Comment on above: Performed By: #### G FR, MG, LIP, MDW, CBC, CMP, MORPH, DIFF #### [address] [address] LIPon 04-06-2023 Lipase Level 25 U/L Normal 16-77 [facility] ([place]) Comment on above: Performed By: #### G FR, MG, LIP, MDW, CBC, CMP, MORPH, DIFF #### [address] [address] MGon 04-06-2023 Magnesium [Mass/Vol] 2.8 mg/dL High 1.8-2.4 [facility] [place] Comment on [place]: Performed By: #### M G #### [address] [address] Magnesium [Mass/Vol] 1.1 mg/dL Low 1.8-2.4 [facility] [place] Comment on above: Performed By: #### G FR, MG, LIP, MDW, CBC, CMP, MORPH, DIFF #### [address] [address] No Panel Informationon 04-06 Microscopic examination of blood, culture Culture has been received in lab and is no growth to date. Routine cultures are held for 5 days. [facility] Work Phone: UAon 04-06-2023 Color (U) Dark yellow Normal [facility] ([place] Comment on above: Performed By: #### G FR, MG, LIP, MDW, CBC, CMP, MORPH, DIFF #### [address] [address] Glucose (U) [Mass/Vol] Negative Normal Negative [facility] ([place]) Comment on above: Performed By: #### G FR, MG, LIP, MDW, CBC, CMP, MORPH, DIFF #### [address] [address] Ketones Ql (U) Trace Abnormal Negative [facility] ([place] Comment on above: Performed By: #### G FR, MG, LIP, MDW, CBC, CMP, MORPH, DIFF #### [place] [address] UA Appear Slightly Cloudy Abnormal Clear [facility] ([place] Comment on above: Performed By: #### G FR, MG, LIP, MDW, CBC, CMP, MORPH, DIFF #### [place] [address] UA Bili Small Abnormal Negative [facility] ([place] Comment on above: Performed By: #### G FR, MG, LIP, MDW, CBC, CMP, MORPH, DIFF #### [address] [address] UA Blood Small Abnormal Negative [facility] ([place] Comment on above: Performed By: #### G FR, MG, LIP, MDW, CBC, CMP, MORPH, DIFF #### [address] [address] UA Leuk Est Negative Normal Negative [facility] ([place] Comment on above: Performed By: #### G FR, MG, LIP, MDW, CBC, CMP, MORPH, DIFF #### [address] [address] UA Nitrite Negative Normal Negative [facility] ([place] Comment on above: Performed By: #### G FR, MG, LIP, MDW, CBC, CMP, MORPH, DIFF #### [address] [address] UA pH 5.5 Normal 5.0 - 8.0 [facility] ([place] Comment on above: Performed By: #### G FR, MG, LIP, MDW, CBC, CMP, MORPH, DIFF #### [address] [address] UA Protein 100 mg/dL Abnormal Negative [facility] ([place] Comment on above: Performed By: #### G FR, MG, LIP, MDW, CBC, CMP, MORPH, DIFF #### [address] [address] UA Spec Grav 1.025 Normal 1.015-1.02 5 [facility] ([place] Comment on above: Performed By: #### G FR, MG, LIP, MDW, CBC, CMP, MORPH, DIFF #### [address] [address] UA Specimen Type Void Normal [facility] ([place] Comment on above: Performed By: #### G FR, MG, LIP, MDW, CBC, CMP, MORPH, DIFF #### [address] [address] UA Urobilinogen 0.2 E.U./dL Normal 0.2-1.0 [facility] ([place] Comment on above: Performed By: #### G FR, MG, LIP, MDW, CBC, CMP, MORPH, DIFF #### [address] [address] .Auto Diffon 03-27-2023 Basophil, Absolute 0.1 10 3/mcL Normal 0.0-0.2 [facility] [place] Comment on above: Performed By: #### G FR, MG, LIP, MDW, CBC, CMP, MORPH, DIFF #### [address] [address] Basophils/100 WBC (Bld) 0.8 % Normal 0.0-2.5 A [facility] ([place]) Comment on above: Performed By: #### G FR, MG, LIP, MDW, CBC, CMP, MORPH, DIFF #### [address] [address] Eosinophil, Absolute 0.1 10 3/mcL Normal 0.0-0.4 [facility] ([place]) Comment on above: Performed By: #### G FR, MG, LIP, MDW, CBC, CMP, MORPH, DIFF #### [address] [address] Eosinophils/100 WBC (Bld) 0.4 % Normal 0.0-7.0 [facility] ([place] Comment on above: Performed By: #### G FR, MG, LIP, MDW, CBC, CMP, MORPH, DIFF #### [address] [address] Lymphocyte, Absolute 1.4 10 3/mcL Normal 0.8-3.9 [facility] ([place]) Comment on above: Performed By: #### G FR, MG, LIP, MDW, CBC, CMP, MORPH, DIFF #### [address] [address] Lymphocytes/100 WBC (Bld) 8.7 % Low 10.0-50.0 [facility] ([place] Comment on above: Performed By: #### G FR, MG, LIP, MDW, CBC, CMP, MORPH, DIFF #### [address] [address] Monocyte, Absolute 0.4 10 3/mcL Normal 0.2-1.0 [facility] [place] Comment on above: Performed By: #### G FR, MG, LIP, MDW, CBC, CMP, MORPH, DIFF #### [address] [address] Monocytes/100 WBC (Bld) 2.5 % Normal 1.7-13.0 [facility] ([place]) Comment on above: Performed By: #### G FR, MG, LIP, MDW, CBC, CMP, MORPH, DIFF #### [address] [address] Neutrophils/100 WBC (Bld) 87.6 % High 37.0-80.0 [facility] ([place] Comment on above: Performed By: #### G FR, MG, LIP, MDW, CBC, CMP, MORPH, DIFF #### [address] [address] .GFRon 03-27-2023 GFR 96 ml/min/1.73sqm Normal [facility] ([place] Comment on above: Result Comment: GFR Population [...] LIP, MDW, CBC, CMP, MORPH, DIFF #### [address] [address] GFR Non- 79 ml/min/1.73sqm Normal [facility] ([place]) Comment on above: Result Comment: GFR Population [...] LIP, MDW, CBC, CMP, MORPH, DIFF #### [address] [address] .MDWon 03-27-2023 Monocyte Distribution Width 14.96 Normal 0.00-20.00 [facility] ([place]) Comment on above: Result Comment: For ED adult patients suspected of sepsis, MDW<=20.0 does not rule out sepsis or risk of sepsis Performed By: #### G FR, MG, LIP, MDW, CBC, CMP, MORPH, DIFF #### [address] [address] .NEUABSon 03-27-2023 Neutrophil, Absolute 13.7 10 3/mcL High 2.9-6.2 A [facility] ([place] Comment on above: Performed By: #### G FR, MG, LIP, MDW, CBC, CMP, MORPH, DIFF #### [address] [address] BMPon 03-27-2023 BUN/Creatinine Ratio 12 ratio Normal 7-27 [facility] [place] Comment on above: Performed By: #### G FR, MG, LIP, MDW, CBC, CMP, MORPH, DIFF #### [address] [address] Calcium [Mass/Vol] 9.8 mg/dL Normal 8.4-10.2 [facility] ([place]) Comment on above: Performed By: #### G FR, MG, LIP, MDW, CBC, CMP, MORPH, DIFF #### [address] [address] Chloride [Moles/Vol] 99 mmol/L Normal 98-107 [facility] [place] Comment on above: Performed By: #### G FR, MG, LIP, MDW, CBC, CMP, MORPH, DIFF #### [address] [address] CO2 [Moles/Vol] 21 mmol/L Low 23-31 [facility] ([place]) Comment on above: Performed By: #### G FR, MG, LIP, MDW, CBC, CMP, MORPH, DIFF #### [address] [address] Creatinine [Mass/Vol] 0.96 mg/dL Normal 0.70-1.30 [facility] ([place]) Comment on above: Performed By: #### G FR, MG, LIP, MDW, CBC, CMP, MORPH, DIFF #### [address] [address] Electrolyte Balance 16.0 mEq/L High 4.0-15.0 [facility] ([place]) Comment on above: Performed By: #### G FR, MG, LIP, MDW, CBC, CMP, MORPH, DIFF #### [address] [address] Glucose [Mass/Vol] 143 mg/dL High 80-115 [facility] ([place]) Comment on above: Performed By: #### G FR, MG, LIP, MDW, CBC, CMP, MORPH, DIFF #### [address] [address] Potassium [Moles/Vol] 4.0 mmol/L Normal 3.5-5.1 [facility] ([place]) Comment on above: Performed By: #### G FR, MG, LIP, MDW, CBC, CMP, MORPH, DIFF #### [address] [address] Sodium [Moles/Vol] 136 mmol/L Normal 136-145 [facility] ([place]) Comment on above: Performed By: #### G FR, MG, LIP, MDW, CBC, CMP, MORPH, DIFF #### [address] [address] Urea nitrogen [Mass/Vol] 12 mg/dL Normal 7-18 [facility] ([place]) Comment on above: Performed By: #### G FR, MG, LIP, MDW, CBC, CMP, MORPH, DIFF #### [address] [address] CBCon 03-27-2023 Erythrocyte distribution width (RBC) [Ratio] 18.0 % High 11.5-14.5 [facility] ([place]) Comment on above: Performed By: #### G FR, MG, LIP, MDW, CBC, CMP, MORPH, DIFF #### [address] [address] Hematocrit (Bld) [Volume fraction] 40.6 % Low 42.0-52.0 [facility] ([place] Comment on above: Performed By: #### G FR, MG, LIP, MDW, CBC, CMP, MORPH, DIFF #### [address] [address] Hgb 13.4 G/dL Low 14.0-18.0 [facility] ([place] Comment on above: Performed By: #### G FR, MG, LIP, MDW, CBC, CMP, MORPH, DIFF #### [place] [address] MCH (RBC) [Entitic mass] 27.1 pg Normal 27.0-31.2 [facility] ([place] Comment on above: Performed By: #### G FR, MG, LIP, MDW, CBC, CMP, MORPH, DIFF #### [place] [address] MCHC 33.0 G/dL Normal 31.8-35.4 [facility] ([place]) Comment on above: Performed By: #### G FR, MG, LIP, MDW, CBC, CMP, MORPH, DIFF #### [address] [address] MCV (RBC) [Entitic vol] 82.0 fL Normal 80.0-94.0 A [facility] ([place]) Comment on above: Performed By: #### G FR, MG, LIP, MDW, CBC, CMP, MORPH, DIFF #### [address] [address] Platelet 443 10 3/mcL High 130-400 [facility] ([place]) Comment on above: Performed By: #### G FR, MG, LIP, MDW, CBC, CMP, MORPH, DIFF #### [address] [address] Platelet mean volume (Bld) [Entitic vol] 7.6 fL Normal 7.4-10.4 [facility] ([place] Comment on above: Performed By: #### G FR, MG, LIP, MDW, CBC, CMP, MORPH, DIFF #### [place] [id number] RBC 4.96 10 6/mcL Normal 4.04-6.13 [facility] ([place]) Comment on above: Performed By: #### G FR, MG, LIP, MDW, CBC, CMP, MORPH, DIFF #### [place] [id number] [place], [place] [address] WBC 15.7 10 3/mcL High 4.6-10.8 [facility] ([place]) Comment on above: Performed By: #### G FR, MG, LIP, MDW, CBC, CMP, MORPH, DIFF #### [place] [id number] [place], [place] [address] LABORATORYOrdered By: SYSTEM SYSTEM on 03-27-2023 Basophil, [...] 03-27-2023 Magnesium [Mass/Vol] 1.3 mg/dL Low 1.8-2.4 [facility] [place] Comment on above: Performed By: #### G FR, MG, LIP, MDW, CBC, CMP, MORPH, DIFF #### [address] [address] .GFRon 03-09-2023 GFR 40 ml/min/1.73sqm Normal [facility] ([place] Comment on above: Result Comment: GFR Population [...] LIP, MDW, CBC, CMP, MORPH, DIFF #### [address] [address] GFR Non- 33 ml/min/1.73sqm Normal [facility] ([place] Comment on above: Result Comment: GFR Population [...] LIP, MDW, CBC, CMP, MORPH, DIFF #### [place] [address] .MDWon 03-09-2023 Monocyte Distribution Width 15.16 Normal 0.00-20.00 [facility] ([place] Comment on above: Result Comment: For ED adult patients suspected of sepsis, MDW<=20.0 does not rule out sepsis or risk of sepsis Performed By: #### G FR, MG, LIP, MDW, CBC, CMP, MORPH, DIFF #### [place] [address] .Manual Diffon 03-09-2023 Basophil %, Manual 0.0 % Normal 0.0-2.5 [facility] ([place]) Comment on above: Performed By: #### G FR, MG, LIP, MDW, CBC, CMP, MORPH, DIFF #### [place] [address] Basophil, Abs Manual 0.0 10 3/mcL Normal 0.0-0.2 [facility] ([place]) Comment on above: Performed By: #### G FR, MG, LIP, MDW, CBC, CMP, MORPH, DIFF #### [place] [address] Eosinophil %, Manual 1.0 % Normal 0.0-7.0 [facility] [place] Comment on above: Performed By: #### G FR, MG, LIP, MDW, CBC, CMP, MORPH, DIFF #### [address] [address] Eosinophil, Abs Manual 0.2 10 3/mcL Normal 0.0-0.4 [facility] ([place] Comment on above: Performed By: #### G FR, MG, LIP, MDW, CBC, CMP, MORPH, DIFF #### [address] [address] Lymphocyte %, Manual 5.0 % Low 10.0-50.0 [facility] [place] Comment on above: Performed By: #### G FR, MG, LIP, MDW, CBC, CMP, MORPH, DIFF #### [address] [address] Lymphocyte, Abs Manual 1.1 10 3/mcL Normal 0.8-3.9 [facility] ([place] Comment on above: Performed By: #### G FR, MG, LIP, MDW, CBC, CMP, MORPH, DIFF #### [address] [address] Monocyte %, Manual 8.0 % Normal 1.7-13.0 [facility] ([place]) Comment on above: Performed By: #### G FR, MG, LIP, MDW, CBC, CMP, MORPH, DIFF #### [address] [address] Monocyte, Abs Manual 1.7 10 3/mcL High 0.2-1.0 [facility] ([place]) Comment on above: Performed By: #### G FR, MG, LIP, MDW, CBC, CMP, MORPH, DIFF #### [address] [address] Neutrophil %, Manual 86.0 % High 37.0-80.0 [facility] [place] Comment on above: Performed By: #### G FR, MG, LIP, MDW, CBC, CMP, MORPH, DIFF #### [address] [address] Neutrophil, Abs Manual 18.7 10 3/mcL High 2.9-6.2 [facility] ([place]) Comment on above: Performed By: #### G FR, MG, LIP, MDW, CBC, CMP, MORPH, DIFF #### [address] [address] Nucleated RBC 0.0 /100 WBC Normal [facility] ([place]) Comment on above: Performed By: #### G FR, MG, LIP, MDW, CBC, CMP, MORPH, DIFF #### [place] [address] .Morphon 03-09-2023 Anisocytosis Ql (Bld) 1+ Normal [facility] ([place]) Comment on above: Performed By: #### G FR, MG, LIP, MDW, CBC, CMP, MORPH, DIFF #### [place] [address] Hyperseg 1+ Normal [facility] ([place]) Comment on above: Performed By: #### G FR, MG, LIP, MDW, CBC, CMP, MORPH, DIFF #### [place] [address] Ovalocytes 1+ Normal [facility] ([place]) Comment on above: Performed By: #### G FR, MG, LIP, MDW, CBC, CMP, MORPH, DIFF #### [place] [address] Platelet Estimate Slt Increased Normal [facility] [place] Comment on above: Performed By: #### G FR, MG, LIP, MDW, CBC, CMP, MORPH, DIFF #### [place] [address] .Urinalysis Microscopic (AO) on 03-09-2023 UA Coarse Granular Casts 5-10 Abnormal [facility] ([place] Comment on above: Performed By: #### G FR, MG, LIP, MDW, CBC, CMP, MORPH, DIFF #### [place] [address] UA Hyal Cast 5-10 Abnormal [facility] ([place] Comment on above: Performed By: #### G FR, MG, LIP, MDW, CBC, CMP, MORPH, DIFF #### [place] [id number] UA Mucous 1+ /hpf Normal [facility] ([place]) Comment on above: Performed By: #### G FR, MG, LIP, MDW, CBC, CMP, MORPH, DIFF #### [address] [address] UA RBC 0-5 Abnormal None Seen [facility] ([place] Comment on above: Performed By: #### G FR, MG, LIP, MDW, CBC, CMP, MORPH, DIFF #### [address] [address] UA Squam Epithelial 0-5 Abnormal None Seen [facility] ([place]) Comment on above: Performed By: #### G FR, MG, LIP, MDW, CBC, CMP, MORPH, DIFF #### [place] [address] UA WBC 0-5 Abnormal None Seen [facility] ([place] Comment on above: Performed By: #### G FR, MG, LIP, MDW, CBC, CMP, MORPH, DIFF #### [address] [address] UA Yeast Trace Abnormal [facility] ([place]) Comment on above: Performed By: #### G FR, MG, LIP, MDW, CBC, CMP, MORPH, DIFF #### [place] [address] CBCon 03-09-2023 Erythrocyte distribution width (RBC) [Ratio] 17.8 % High 11.5-14.5 [facility] ([place] Comment on above: Performed By: #### G FR, MG, LIP, MDW, CBC, CMP, MORPH, DIFF #### [place] [address] Hematocrit (Bld) [Volume fraction] 40.4 % Low 42.0-52.0 [facility] ([place] Comment on above: Performed By: #### G FR, MG, LIP, MDW, CBC, CMP, MORPH, DIFF #### [place] [address] Hgb 13.3 G/dL Low 14.0-18.0 [facility] ([place] Comment on above: Performed By: #### G FR, MG, LIP, MDW, CBC, CMP, MORPH, DIFF #### [address] [address] MCH (RBC) [Entitic mass] 26.6 pg Low 27.0-31.2 [facility] ([place] Comment on above: Performed By: #### G FR, MG, LIP, MDW, CBC, CMP, MORPH, DIFF #### [address] [address] MCHC 32.9 G/dL Normal 31.8-35.4 [facility] ([place]) Comment on above: Performed By: #### G FR, MG, LIP, MDW, CBC, CMP, MORPH, DIFF #### [address] [address] MCV (RBC) [Entitic vol] 80.7 fL Normal 80.0-94.0 A [facility] ([place] Comment on above: Performed By: #### G FR, MG, LIP, MDW, CBC, CMP, MORPH, DIFF #### [address] [address] Platelet 528 10 3/mcL High 130-400 [facility] ([place] Comment on above: Performed By: #### G FR, MG, LIP, MDW, CBC, CMP, MORPH, DIFF #### [address] [address] Platelet mean volume (Bld) [Entitic vol] 7.6 fL Normal 7.4-10.4 [facility] ([place] Comment on above: Performed By: #### G FR, MG, LIP, MDW, CBC, CMP, MORPH, DIFF #### [address] [address] RBC 5.00 10 6/mcL Normal 4.04-6.13 [facility] ([place] Comment on above: Performed By: #### G FR, MG, LIP, MDW, CBC, CMP, MORPH, DIFF #### [address] [address] WBC 21.7 10 3/mcL High 4.6-10.8 [facility] ([place] Comment on above: Performed By: #### G FR, MG, LIP, MDW, CBC, CMP, MORPH, DIFF #### [address] [address] CMPon 03-09-2023 Albumin Level 4.6 G/dL Normal 3.4-4.8 [facility] ([place] Comment on above: Performed By: #### G FR, MG, LIP, MDW, CBC, CMP, MORPH, DIFF #### [address] [address] Albumin/Globulin [Mass ratio] 1.4 {ratio} Normal 1.1-2.5 [facility] ([place] Comment on above: Performed By: #### G FR, MG, LIP, MDW, CBC, CMP, MORPH, DIFF #### [address] [address] ALP [Catalytic activity/Vol] 64 U/L Normal 40-135 [facility] ([place] Comment on above: Performed By: #### G FR, MG, LIP, MDW, CBC, CMP, MORPH, DIFF #### [address] [address] ALT [Catalytic activity/Vol] 23 U/L Normal 16-63 [facility] ([place] Comment on above: Performed By: #### G FR, MG, LIP, MDW, CBC, CMP, MORPH, DIFF #### [address] [address] AST [Catalytic activity/Vol] 38 U/L Normal 10-40 [facility] ([place] Comment on above: Performed By: #### G FR, MG, LIP, MDW, CBC, CMP, MORPH, DIFF #### [address] [address] Bili Total 0.4 mg/dL Normal 0.2-1.0 [facility] ([place] Comment on above: Result Comment: Use of this assay is not recommended for patients undergoing treatment with eltrombopag due to the potential for falsely elevated results. Performed By: #### G FR, MG, LIP, MDW, CBC, CMP, MORPH, DIFF #### [address] [address] BUN/Creatinine Ratio 8 ratio Normal 7-27 [facility] [place] Comment on above: Performed By: #### G FR, MG, LIP, MDW, CBC, CMP, MORPH, DIFF #### [address] [address] Calcium [Mass/Vol] 11.6 mg/dL High 8.4-10.2 [facility] ([place]) Comment on above: Performed By: #### G FR, MG, LIP, MDW, CBC, CMP, MORPH, DIFF #### [address] [address] Chloride [Moles/Vol] 102 mmol/L Normal 98-107 [facility] [place] Comment on above: Performed By: #### G FR, MG, LIP, MDW, CBC, CMP, MORPH, DIFF #### [address] [address] CO2 [Moles/Vol] 21 mmol/L Low 23-31 [facility] ([place] Comment on above: Performed By: #### G FR, MG, LIP, MDW, CBC, CMP, MORPH, DIFF #### [address] [address] Creatinine [Mass/Vol] 2.03 mg/dL High 0.70-1.30 [facility] ([place]) Comment on above: Performed By: #### G FR, MG, LIP, MDW, CBC, CMP, MORPH, DIFF #### [address] [address] Electrolyte Balance 16.0 mEq/L High 4.0-15.0 [facility] ([place]) Comment on above: Performed By: #### G FR, MG, LIP, MDW, CBC, CMP, MORPH, DIFF #### [address] [address] Globulin 3.4 G/dL Normal [facility] ([place]) Comment on above: Performed By: #### G FR, MG, LIP, MDW, CBC, CMP, MORPH, DIFF #### [address] [address] Glucose [Mass/Vol] 161 mg/dL High 80-115 [facility] ([place]) Comment on above: Performed By: #### G FR, MG, LIP, MDW, CBC, CMP, MORPH, DIFF #### [address] [address] Potassium [Moles/Vol] 4.1 mmol/L Normal 3.5-5.1 [facility] ([place]) Comment on above: Performed By: #### G FR, MG, LIP, MDW, CBC, CMP, MORPH, DIFF #### [address] [address] Sodium [Moles/Vol] 139 mmol/L Normal 136-145 [facility] ([place]) Comment on above: Performed By: #### G FR, MG, LIP, MDW, CBC, CMP, MORPH, DIFF #### [address] [address] Total Protein 8.0 G/dL Normal 6.4-8.2 [facility]) Comment on above: Performed By: #### G FR, MG, LIP, MDW, CBC, CMP, MORPH, DIFF #### [address] [address] Urea nitrogen [Mass/Vol] 17 mg/dL Normal 7-18 [facility] ([place] Comment on above: Performed By: #### G FR, MG, LIP, MDW, CBC, CMP, MORPH, DIFF #### [address] [address] [address] ABD/PELVIS W/ IV CONTRAST ONLYon 03-09-2023 [...] 03/09/2023 6:55:31 AM Ordering Provider: ALFRED LANDAVERDE [facility] ([place]) LABORATORYOrdered By: SYSTEM SYSTEM on 03-09-2023 Albumin [...] 03-09-2023 Lipase Level 35 U/L Normal 16-77 [facility] ([place] Comment on above: Performed By: #### G FR, MG, LIP, MDW, CBC, CMP, MORPH, DIFF #### [address] [address] MGon 03-09-2023 Magnesium [Mass/Vol] 1.1 mg/dL Low 1.8-2.4 [facility] [place] Comment on above: Performed By: #### G FR, MG, LIP, MDW, CBC, CMP, MORPH, DIFF #### [address] [address] UAon 03-09-2023 Color (U) Yellow Normal [facility] ([place] Comment on above: Performed By: #### G FR, MG, LIP, MDW, CBC, CMP, MORPH, DIFF #### [address] [address] Glucose (U) [Mass/Vol] Negative Normal Negative [facility] ([place]) Comment on above: Performed By: #### G , MG, EUGENIA, W, CBC, CMP, MORPH, DIFF #### [address] [address] Ketones Ql (U) Negative Normal Negative [facility] [facility] ([place]) Comment on above: Performed By: #### G FR, MG, EUGENIA, MDW, CBC, CMP, MORPH, DIFF #### [address] [address] UA Appear Cloudy Abnormal Clear [facility] ([place]) Comment on above: Performed By: #### G , MG, EUGENIA, MDW, CBC, CMP, MORPH, DIFF #### [address] [address] UA Blood Small Abnormal Negative [facility] ([place]) Comment on above: Performed By: #### G , MG, EUGENIA, MDW, CBC, CMP, MORPH, DIFF #### [address] [address] UA Leuk Est Negative Normal Negative [facility] ([place]) Comment on above: Performed By: #### G , MG, EUGENIA, MDW, CBC, CMP, MORPH, DIFF #### [address] [address] UA Nitrite Negative Normal Negative [facility] ([place] Comment on above: Performed By: #### G FR, MG, EUGENIA, MDW, CBC, CMP, MORPH, DIFF #### [address] [address] UA pH 5.5 Normal 5.0 - 8.0 [facility] ([place]) Comment on above: Performed By: #### G FR, MG, EUGENIA, MDW, CBC, CMP, MORPH, DIFF #### [address] [address] UA Protein >=300 Abnormal Negative [facility] ([place]) Comment on above: Performed By: #### G FR, MG, LIP, MDW, CBC, CMP, MORPH, DIFF #### [address] [address] UA Spec Grav >=1.030 Abnormal 1.015-1.02 5 [facility] ([place]) Comment on above: Performed By: #### G FR, MG, LIP, MDW, CBC, CMP, MORPH, DIFF #### [place] [id number] [place], [place] [address] UA Specimen Type Clean Catch Normal [facility] ([place]) Comment on above: Performed By: #### G FR, MG, LIP, MDW, CBC, CMP, MORPH, DIFF #### [place] [address] UA Urobilinogen 0.2 E.U./dL Normal 0.2-1.0 [facility] ([place]) Comment on above: Performed By: #### G FR, MG, LIP, MDW, CBC, CMP, MORPH, DIFF #### [place] [address] Urobilinogen (U) [Mass/Vol] Negative Normal Negative [facility] ([place]) Comment on above: Performed By: #### G FR, MG, LIP, MDW, CBC, CMP, MORPH, DIFF #### [address] [address] Basophil percentageOrdered B y: Dr. Kam on 03-08-2023 Chloride [Moles/Vol] 106 mmol/L 98-107 [facility] Glucose [Mass/Vol] 146 mg/dL 74-106 [facility] Comment on above: Fasting Glucose resu lt greater than or equal to 126 mg/dL suggests DIABETES MELLITUS per A.D.A. criteria. Potassium [Moles/Vol] 3.9 mmol/L 3.5-5.1 [facility] Sodium [Moles/Vol] 135 mmol/L 136-145 [facility] CBC (INCLUDES DIFF/PLT)on Basophils (Bld) [#/Vol] 0.049 10*3/uL Normal 0-200 [facility] Comment on above: Performed By: #### 1 2862, 6777, 47186, 5363 #### [facility] of [address], [address] [place] [address] Weight Count Operator: Malvin Saez MD Basophils/100 WBC (Bld) 0.4 % Normal [facility] Comment on above: Performed By: #### 1 4852, 6399, 64922, 5363 #### [facility] of [address], [address] [place] [address] Weight Count Operator: Malvin Saez MD Eosinophils (Bld) [#/Vol] 0.197 10*3/uL Normal 15-500 [facility] Comment on above: Performed By: #### 1 4852, 6399, 45753, 5363 #### [facility] of [address], [address] [place] [address] Weight Count Operator: Malvin Saez MD Eosinophils/100 WBC (Bld) 1.6 % Normal [facility] Comment on above: Performed By: #### 1 4852, 6399, 64121, 5363 #### [facility] of [place] [address] Weight Count Operator: Malvin Saez MD Erythrocyte distribution width (RBC) [Ratio] 16.0 % High 11.0-15.0 [facility] Comment on above: Performed By: #### 1 4852, 6399, 92334, 5363 #### [facility] of [place] [address] Weight Count Operator: Malvin Saez MD Hematocrit (Bld) [Volume fraction] 40.2 % Normal 38.5-50.0 [facility] Comment on above: Performed By: #### 1 4852, 6399, 62807, 5363 #### [facility] of [place] [address] Weight Count Operator: Malvin Saez MD Hemoglobin (Bld) [Mass/Vol] 12.8 g/dL Low 13.2-17.1 [facility] Comment on above: Performed By: #### 1 4852, 6399, 70091, 5363 #### [facility] of [address], [address] [place] [address] Weight Count Operator: Malvin Saez MD Lymphocytes (Bld) [#/Vol] 1.759 10*3/uL Normal 850-3900 [facility] Comment on above: Performed By: #### 1 4852, 63, 86624, 5363 #### [facility] of [place] [address] Weight Count Operator: Malvin Saez MD Lymphocytes/100 WBC (Bld) 14.3 % Normal [facility] Comment on above: Performed By: #### 1 4852, 63, 28717, 5363 #### [facility] of [place] [address] Weight Count Operator: Malvin Saez MD MCH (RBC) [Entitic mass] 26.8 pg Low 27.0-33.0 [facility] Comment on above: Performed By: #### 1 4852, 63, 27962, 5363 #### [facility] of [place] [address] Weight Count Operator: Malvin Saez MD MCHC (RBC) [Mass/Vol] 31.8 g/dL Low 32.0-36.[address] [facility] Comment on above: Performed By: #### 1 485, 63, 03346, 5363 #### [facility] of [place] [address] Weight Count Operator: Malvin Saez MD MCV (RBC) [Entitic vol] 84.1 fL Normal 80.0-100.0 [facility] Comment on above: Performed By: #### 1 4852, 63, 72832, 5363 #### [facility] of [place] [address] Weight Count Operator: Malvin Saez MD Monocytes (Bld) [#/Vol] 0.664 10*3/uL Normal 200-950 [facility] Comment on above: Performed By: #### 1 485, 6399, 01042, 5363 #### [facility] of [address], [address] [place] [address] Weight Count Operator: Malvin Saez MD Monocytes/100 WBC (Bld) 5.4 % Normal [facility] Comment on above: Performed By: #### 1 4852, 6399, 48078, 5363 #### [facility] of [address], [address] [place] [address] Weight Count Operator: Malvin Saez MD Neutrophils (Bld) [#/Vol] 9.631 10*3/uL High 9121-9642 [facility] Comment on above: Performed By: #### 1 4852, 6399, 95711, 5363 #### [facility] of [address], [address] [place] [address] Weight Count Operator: Malvin Saez MD Neutrophils/100 WBC (Bld) 78.3 % Normal [facility] Comment on above: Performed By: #### 1 4852, 6399, 66291, 5363 #### [facility] of [address], [address] [place] [address] Weight Count Operator: Malvin Saez MD Platelet mean volume (Bld) [Entitic vol] 10.5 fL Normal 7.5-12.5 [facility] Comment on above: Performed By: #### 1 4852, 6399, 26610, 5363 #### [facility] of [address], [address] [place] [address] Weight Count Operator: Malvin Saez MD Platelets (Bld) [#/Vol] 417 10*3/uL High 140-400 [facility] Comment on above: Performed By: #### 1 4852, 6399, 72798, 5363 #### [facility] of [address], [address] [place] [address] Weight Count Operator: Malvin Saez MD RBC (Bld) [#/Vol] 4.78 10*6/uL Normal 4.20-5.80 [facility] Comment on above: Performed By: #### 1 4852, 6399, 95644, 5363 #### [facility] of [place] [address] Weight Count Operator: Malvin Saez MD WBC (Bld) [#/Vol] 12.3 10*3/uL High 3.8-10.8 [facility] Comment on above: Performed By: #### 1 4852, 6399, 84358, 5363 #### [facility] of [place] [address] Weight Count Operator: Malvin Saez MD [facility] METABOLIC [facility] 03-08-2023 Albumin [Mass/Vol] 4.3 g/dL Normal 3.6-5.1 [facility] Comment on above: Performed By: #### 1 4852, 6399, 13213, 5363 #### [facility] of [place] [address] Weight Count Operator: Malvin Saez MD Albumin/Globulin [Mass ratio] 1.9 {ratio} Normal 1.0-2.5 [facility] Comment on above: Performed By: #### 1 4852, 6399, 72457, 5363 #### [facility] of [place] [address] Weight Count Operator: Malvin Saez MD ALP [Catalytic activity/Vol] 43 U/L Normal 35-144 [facility] Comment on above: Performed By: #### 1 4852, 6399, 71945, 5363 #### [facility] of [place] [address] Weight Count Operator: Malvin Saez MD ALT [Catalytic activity/Vol] 10 U/L Normal 9-46 [facility] Comment on above: Performed By: #### 1 4852, 6399, 02343, 5363 #### [facility] of [place] [address] Weight Count Operator: Malvin Saez MD AST [Catalytic activity/Vol] 23 U/L Normal 10-35 [facility] Comment on above: Performed By: #### 1 4852, 6399, 52020, 5363 #### [facility] of [address], [address] [place] [address] Weight Count Operator: Malvin Saez MD Bilirubin [Mass/Vol] 0.4 mg/dL Normal 0.2-1.2 [facility] Comment on above: Performed By: #### 1 4852, 6399, 30096, 5363 #### [facility] of [address], [address] [place] [address] Weight Count Operator: Malvin Saez MD BUN/CREATININE RATIO NOT APPLICABLE Normal 6-22 [facility] Comment on above: Performed By: #### 1 4852, 6399, 66434, 5363 #### [facility] of [place] [address] Weight Count Operator: Malvin Saez MD Calcium [Mass/Vol] 9.7 mg/dL Normal 8.6-10.3 [facility] Comment on above: Performed By: #### 1 4852, 6399, 63033, 5363 #### [facility] of [address], [address] [place] [address] Weight Count Operator: Malvin Saez MD Chloride [Moles/Vol] 103 mmol/L Normal 98-110 [facility] Comment on above: Performed By: #### 1 4852, 6399, 75556, 5363 #### [facility] of [place] [address] Weight Count Operator: Malvin Saez MD CO2 [Moles/Vol] 20 mmol/L Normal 20-32 [facility] Comment on above: Performed By: #### 1 4852, 6399, 90571, 5363 #### [facility] of [place] [address] Weight Count Operator: Malvin Saez MD Creatinine [Mass/Vol] 1.04 mg/dL Normal 0.70-1.[address] [facility] Comment on above: Performed By: #### 1 4852, 6399, 33893, 5363 #### [facility] of [place] [address], [address] [place] [address] Weight Count Operator: Malvin Saez MD GFR/1.73 sq M.predicted among non-blacks MDRD (S/P/Bld) [Vol rate/Area] 80 mL/min/{1.73_m2} Normal > OR = 60 [facility] Comment on above: Result Comment: The eGFR is based on the CKD-EPI 2020 equation. To calculate the new eGFR from a previous Creatinine or Cystatin C result, go to https://www.kidney.org/professionals/ kdoqi/gfr%5Fcalculator Performed By: #### 1 4852, 6399, 13120, 5363 #### [facility] [place] [address] Weight Count Operator: Malvin Saez MD Globulin (S) [Mass/Vol] 2.3 g/dL Normal 1.9-3.7 [facility] Comment on above: Performed By: #### 1 4852, 6399, 94276, 5363 #### [facility] [place] [address] Weight Count Operator: Malvin Saez MD Glucose [Mass/Vol] 86 mg/dL Normal 65-99 [facility] Comment on above: Result Comment: Fasting reference interval Performed By: #### 1 4852, 6399, 69828, 5363 #### [facility] [place] [address] Weight Count Operator: Malvin Saez MD Potassium [Moles/Vol] 4.5 mmol/L Normal 3.5-5.[address] [facility] Comment on above: Performed By: #### 1 4852, 6399, 59458, 5363 #### [facility] [place] [address] Weight Count Operator: Malvin Saez MD Protein [Mass/Vol] 6.6 g/dL Normal 6.1-8.1 [facility] Comment on above: Performed By: #### 1 4852, 6399, 99329, 5363 #### [facility] of [address], [address] [place] [address] Weight Count Operator: Malvin Saez MD Sodium [Moles/Vol] 132 mmol/L Low 135-146 [facility] Comment on above: Performed By: #### 1 4852, 6399, 20853, 5363 #### [facility] [address], [address] [place] [address] Weight Count Operator: Malvin Saez MD Urea nitrogen [Mass/Vol] 11 mg/dL Normal 7-25 [facility] Comment on above: Performed By: #### 1 4852, 6399, 43399, 5363 #### [facility] [address], [address] [place] [address] Weight Count Operator: Malvin Saez MD LIPID PANEL WITH REFLEX TO D IRECT LDLon 03-08-2023 Cholesterol [Mass/Vol] 188 mg/dL Normal <200 [facility] Comment on above: Order Comment: FASTI NG:YES FASTING: YES Performed By: #### 1 4852, 6399, 25985, 5363 #### [facility] [address], [address] [place] [address] Weight Count Operator: Malvin Saez MD Cholesterol in HDL [Mass/Vol] 45 mg/dL Normal > OR = 40 [facility] Comment on above: Order Comment: FASTI NG:YES FASTING: YES Performed By: #### 1 4852, 6399, 15344, 5363 #### [facility] [address], [address] [place] [address] Weight Count Operator: Malvin Saez MD Cholesterol in LDL [Mass/Vol] [...] LDL-C. Rojas GALVAN et al. SIGRID. 2013;310(19): 9478-1742 (http://education.[employer]/faq/KJG560) Performed By: #### 1 4852, 6399, 61650, 5363 #### [facility] [address], [address] [place] [address] Weight Count Operator: Malvin Saez MD Cholesterol.total/Choles terol in HDL [Mass ratio] 4.2 {ratio} Normal <5.0 [facility] Comment on above: Order Comment: FASTI NG:YES FASTING: YES Performed By: #### 1 4852, 6399, 98613, 5363 #### [facility] [address], [address] [place] [address] Weight Count Operator: Malvin Saez MD NON HDL CHOLESTEROL 143 mg/dL (calc) High <130 [facility] Comment on above: Order Comment: FASTI NG:YES FASTING: YES Result Comment: For patients with diabetes plus 1 major ASCVD risk factor, treating to a non-HDL-C goal of <100 mg/dL (LDL-C of <70 mg/dL) is considered a therapeutic option. Performed By: #### 1 4852, 6399, 11992, 5363 #### [facility] [place] [address] Weight Count Operator: Malvin Saez MD Triglyceride [Mass/Vol] 160 mg/dL High <150 [facility] Comment on above: Order Comment: FASTI NG:YES FASTING: YES Performed By: #### 1 4852, 6399, 34251, 5363 #### [facility] [address], [address] [place] [address] Weight Count Operator: Malvin Saez MD Laboratory - Chemistry and C hemistry - challengeOrdered By: Dr. Kam on 03-08-2023 CO2 [Moles/Vol] 19.0 mmol/L 21.0-32.0 [facility] Urea nitrogen/Creatinine [Mass ratio] 12.5 mg/mg 10- [facility] No Panel InformationOrdered By: Dr. Kam on 03-08-2023 Estimated GFR (MDRD) Amer 78 mL/min >60 [facility] Comment on above: GFR Calc Estimated GFR (MDRD) Non-Af Amer 65 mL/min >60 [facility] Comment on above: Non- GFR Calc PSA, TOTALon 03-08-2023 PSA, TOTAL 0.43 ng/mL Normal < OR = 4.00 [facility] Comment on above: Result Comment: The total PSA value from this assay system is standardized against the WHO standard. The test result will be approximately 20% lower when compared to the equimolar-standardized total PSA (Conce[place]ion Sm[place]). Comparison of serial PSA results should be interpreted with this fact in mind. This test was performed using the Siemens chemiluminescent method. Values obtained from different assay methods cannot be used interchangeably. PSA levels, regardless of value, should not be interpreted as absolute evidence of the presence or absence of disease. Performed By: #### 1 4852, 6399, 65363, 5363 #### [facility] [address], [address] [place], [place] [address] Weight Count Operator: Malvin Saez MD Serum or plasma calcium madelyn urement (mass/volume)Ordered By: Dr. Kam on 03-08-2023 Calcium [Mass/Vol] 9.7 mg/dL 8.5-10.1 [facility] Serum or plasma creatinine m easurement (mass/volume)Ordered By: Dr. Kam on 03-08-2023 Creatinine [Mass/Vol] 1.20 mg/dL 0.70-1.30 [facility] Comment on above: The validity of the calculated GFR & GFRAA in patients over 70 years has not been determined. Clinical correlation is essential. Serum or plasma urea nitroge n measurement (mass/volume)Ordered By: Dr. Kam on 03-08-2023 Urea nitrogen [Mass/Vol] 15 mg/dL 7-18 [facility] TSHon 03-08-2023 TSH Qn 1.82 m[IU]/L Normal 0.40-4.50 [facility] Comment on above: Performed By: #### 1 3992, 6399, 15692, 5363 #### [facility] [address], [address] [place], [place] [address] Weight Count Operator: Malvin Saez MD Thin prep Papanicolaou smear with manual screeningOrdered By: Dr. Kam on 03-08-2023 Thin prep Papanicolaou smear with manual screening 02-05 [facility] .GFRon 01-16-2023 GFR 89 ml/min/1.73sqm Normal [facility] ([place]) Comment on above: Result Comment: GFR Population [...] LIP, MDW, CBC, CMP, MORPH, DIFF #### [address] [address] GFR Non- 74 ml/min/1.73sqm Normal [facility] ([place]) Comment on above: Result Comment: GFR Population [...] LIP, MDW, CBC, CMP, MORPH, DIFF #### [address] [address] .Manual Diffon 01-16-2023 Atypical Lymphs 3.0 % Normal 0.0-5.0 [facility] ([place]) Comment on above: Performed By: #### G FR, MG, LIP, MDW, CBC, CMP, MORPH, DIFF #### [address] [address] Basophil %, Manual 1.0 % Normal 0.0-2.5 [facility] ([place]) Comment on above: Performed By: #### G FR, MG, LIP, MDW, CBC, CMP, MORPH, DIFF #### [address] [address] Basophil, Abs Manual 0.1 10 3/mcL Normal 0.0-0.2 [facility] ([place]) Comment on above: Performed By: #### G FR, MG, LIP, MDW, CBC, CMP, MORPH, DIFF #### [address] [address] Eosinophil %, Manual 3.0 % [facility] 0.0-7.0 [facility] Comment on above: Performed By: #### G FR, MG, LIP, MDW, CBC, CMP, MORPH, DIFF #### [address] [address] Eosinophil, Abs Manual 0.2 10 3/mcL Normal 0.0-0.4 [facility] ([place]) Comment on above: Performed By: #### G FR, MG, LIP, MDW, CBC, CMP, MORPH, DIFF #### [address] [address] Lymphocyte %, Manual 27.0 % Normal 10.0-50.0 [facility] [place] Comment on above: Performed By: #### G FR, MG, LIP, MDW, CBC, CMP, MORPH, DIFF #### [address] [address] Lymphocyte, Abs Manual 1.8 10 3/mcL Normal 0.8-3.9 [facility] ([place]) Comment on above: Performed By: #### G FR, MG, LIP, MDW, CBC, CMP, MORPH, DIFF #### [address] [address] Monocyte %, Manual 4.0 % Normal 1.7-13.0 [facility] ([place]) Comment on above: Performed By: #### G FR, MG, LIP, MDW, CBC, CMP, MORPH, DIFF #### [address] [address] Monocyte, Abs Manual 0.3 10 3/mcL Normal 0.2-1.0 [facility] ([place]) Comment on above: Performed By: #### G FR, MG, LIP, MDW, CBC, CMP, MORPH, DIFF #### [address] [address] Neutrophil %, Manual 62.0 % Normal 37.0-80.0 [facility] [place] Comment on above: Performed By: #### G FR, MG, LIP, MDW, CBC, CMP, MORPH, DIFF #### [address] [address] Neutrophil, Abs Manual 4.1 10 3/mcL Normal 2.9-6.2 [facility] ([place] Comment on above: Performed By: #### G FR, MG, LIP, MDW, CBC, CMP, MORPH, DIFF #### [address] [address] Nucleated RBC 0.0 /100 WBC Normal [facility] ([place]) Comment on above: Performed By: #### G FR, MG, LIP, MDW, CBC, CMP, MORPH, DIFF #### [address] [address] .Morphon 01-16-2023 Hyperseg 1+ Normal [facility] ([place]) Comment on above: Performed By: #### G FR, MG, LIP, MDW, CBC, CMP, MORPH, DIFF #### [address] [address] Ovalocytes 1+ Normal [facility] ([place] Comment on above: Performed By: #### G FR, MG, LIP, MDW, CBC, CMP, MORPH, DIFF #### [address] [address] Platelet Estimate Normal Normal [facility] ([place]) Comment on above: Performed By: #### G FR, MG, LIP, MDW, CBC, CMP, MORPH, DIFF #### [address] [address] CBCon 01-16-2023 Erythrocyte distribution width (RBC) [Ratio] 17.1 % High 11.5-14.5 [facility] ([place]) Comment on above: Performed By: #### G FR, MG, LIP, MDW, CBC, CMP, MORPH, DIFF #### [place] [address] Hematocrit (Bld) [Volume fraction] 34.2 % Low 42.0-52.0 [facility] ([place] Comment on above: Performed By: #### G FR, MG, LIP, MDW, CBC, CMP, MORPH, DIFF #### [place] [address] Hgb 11.3 G/dL Low 14.0-18.0 [facility] ([place] Comment on above: Performed By: #### G FR, MG, LIP, MDW, CBC, CMP, MORPH, DIFF #### [address] [address] MCH (RBC) [Entitic mass] 26.9 pg Low 27.0-31.2 [facility] ([place] Comment on above: Performed By: #### G FR, MG, LIP, MDW, CBC, CMP, MORPH, DIFF #### [place] [address] MCHC 33.0 G/dL Normal 31.8-35.4 [facility] ([place] Comment on above: Performed By: #### G FR, MG, LIP, MDW, CBC, CMP, MORPH, DIFF #### [place] [address] MCV (RBC) [Entitic vol] 81.3 fL Normal 80.0-94.0 [facility] ([place]) Comment on above: Performed By: #### G FR, MG, LIP, MDW, CBC, CMP, MORPH, DIFF #### [address] [address] Platelet 300 10 3/mcL Normal 130-400 [facility] ([place]) Comment on above: Performed By: #### G FR, MG, LIP, MDW, CBC, CMP, MORPH, DIFF #### [address] [address] Platelet mean volume (Bld) [Entitic vol] 7.7 fL Normal 7.4-10.4 [facility] ([place] Comment on above: Performed By: #### G FR, MG, LIP, MDW, CBC, CMP, MORPH, DIFF #### [address] [address] RBC 4.20 10 6/mcL Normal 4.04-6.13 [facility] ([place] Comment on above: Performed By: #### G FR, MG, LIP, MDW, CBC, CMP, MORPH, DIFF #### [address] [address] WBC 6.7 10 3/mcL Normal 4.6-10.8 [facility] ([place] Comment on above: Performed By: #### G FR, MG, LIP, MDW, CBC, CMP, MORPH, DIFF #### [address] [address] CMPon 01-16-2023 Albumin Level 3.3 G/dL Low 3.4-4.8 [facility] ([place] Comment on above: Performed By: #### G FR, MG, LIP, MDW, CBC, CMP, MORPH, DIFF #### [address] [address] Albumin/Globulin [Mass ratio] 1.2 {ratio} Normal 1.1-2.5 [facility] ([place] Comment on above: Performed By: #### G FR, MG, LIP, MDW, CBC, CMP, MORPH, DIFF #### [address] [address] ALP [Catalytic activity/Vol] 48 U/L Normal 40-135 [facility] ([place] Comment on above: Performed By: #### G FR, MG, LIP, MDW, CBC, CMP, MORPH, DIFF #### [address] [address] ALT [Catalytic activity/Vol] 18 U/L Normal 16-63 [facility] ([place] Comment on above: Performed By: #### G FR, MG, LIP, MDW, CBC, CMP, MORPH, DIFF #### [address] [address] AST [Catalytic activity/Vol] 20 U/L Normal 10-40 [facility] ([place] Comment on above: Performed By: #### G FR, MG, LIP, MDW, CBC, CMP, MORPH, DIFF #### [address] [address] Bili Total 0.4 mg/dL Normal 0.2-1.0 [facility] ([place] Comment on above: Result Comment: Use of this assay is not recommended for patients undergoing treatment with eltrombopag due to the potential for falsely elevated results. Performed By: #### G FR, MG, LIP, MDW, CBC, CMP, MORPH, DIFF #### [address] [address] BUN/Creatinine Ratio 9 ratio Normal 7-27 [facility] [place] Comment on above: Performed By: #### G FR, MG, LIP, MDW, CBC, CMP, MORPH, DIFF #### [address] [address] Calcium [Mass/Vol] 8.8 mg/dL Normal 8.4-10.2 [facility] ([place]) Comment on above: Performed By: #### G FR, MG, LIP, MDW, CBC, CMP, MORPH, DIFF #### [address] [address] Chloride [Moles/Vol] 107 mmol/L Normal 98-107 [facility] [place] Comment on above: Performed By: #### G FR, MG, LIP, MDW, CBC, CMP, MORPH, DIFF #### [address] [address] CO2 [Moles/Vol] 25 mmol/L Normal 23-31 [facility] ([place] Comment on above: Performed By: #### G FR, MG, LIP, MDW, CBC, CMP, MORPH, DIFF #### [address] [address] Creatinine [Mass/Vol] 1.02 mg/dL Normal 0.70-1.30 [facility] ([place]) Comment on above: Performed By: #### G FR, MG, LIP, MDW, CBC, CMP, MORPH, DIFF #### [address] [address] Electrolyte Balance 10.0 mEq/L Normal 4.0-15.0 [facility] ([place]) Comment on above: Performed By: #### G FR, MG, LIP, MDW, CBC, CMP, MORPH, DIFF #### [address] [address] Globulin 2.7 G/dL Normal [facility] ([place]) Comment on above: Performed By: #### G FR, MG, LIP, MDW, CBC, CMP, MORPH, DIFF #### [address] [address] Glucose [Mass/Vol] 101 mg/dL Normal 80-115 [facility] ([place]) Comment on above: Performed By: #### G FR, MG, LIP, MDW, CBC, CMP, MORPH, DIFF #### [address] [address] Potassium [Moles/Vol] 3.7 mmol/L Normal 3.5-5.1 [facility] ([place]) Comment on above: Performed By: #### G FR, MG, LIP, MDW, CBC, CMP, MORPH, DIFF #### [address] [address] Sodium [Moles/Vol] 142 mmol/L Normal 136-145 [facility] ([place]) Comment on above: Performed By: #### G FR, MG, LIP, MDW, CBC, CMP, MORPH, DIFF #### [address] [address] Total Protein 6.0 G/dL Low 6.4-8.2 [facility] ([place]) Comment on above: Performed By: #### G FR, MG, LIP, MDW, CBC, CMP, MORPH, DIFF #### [address] [address] Urea nitrogen [Mass/Vol] 9 mg/dL Normal 7-18 [facility] ([place]) Comment on above: Performed By: #### G FR, MG, LIP, MDW, CBC, CMP, MORPH, DIFF #### [address] [address] MGon 01-16-2023 Magnesium [Mass/Vol] 1.4 mg/dL Low 1.8-2.4 [facility] Comment on above: Performed By: #### G FR, MG, LIP, MDW, CBC, CMP, MORPH, DIFF #### [address] [address] .Auto Diffon 01-15-2023 Basophil, Absolute 0.3 10 3/mcL High 0.0-0.2 [facility] [place] Comment on above: Performed By: #### G FR, MG, LIP, MDW, CBC, CMP, MORPH, DIFF #### [address] [address] Basophils/100 WBC (Bld) 1.5 % Normal 0.0-2.5 A [facility] ([place]) Comment on above: Performed By: #### G FR, MG, LIP, MDW, CBC, CMP, MORPH, DIFF #### [address] [address] Eosinophil, Absolute 0.2 10 3/mcL Normal 0.0-0.4 [facility] ([place]) Comment on above: Performed By: #### G FR, MG, LIP, MDW, CBC, CMP, MORPH, DIFF #### [address] [address] Eosinophils/100 WBC (Bld) 1.0 % Normal 0.0-7.0 [facility] ([place]) Comment on above: Performed By: #### G FR, MG, LIP, MDW, CBC, CMP, MORPH, DIFF #### [address] [address] Lymphocyte, Absolute 2.1 10 3/mcL Normal 0.8-3.9 [facility] ([place]) Comment on above: Performed By: #### G FR, MG, LIP, MDW, CBC, CMP, MORPH, DIFF #### [address] [address] Lymphocytes/100 WBC (Bld) 11.4 % Normal 10.0-50.0 [facility] ([place]) Comment on above: Performed By: #### G FR, MG, LIP, MDW, CBC, CMP, MORPH, DIFF #### [address] [address] Monocyte, Absolute 0.9 10 3/mcL Normal 0.2-1.0 [facility] [place] Comment on above: Performed By: #### G FR, MG, LIP, MDW, CBC, CMP, MORPH, DIFF #### [address] [address] Monocytes/100 WBC (Bld) 4.7 % Normal 1.7-13.0 [facility] ([place]) Comment on above: Performed By: #### G FR, MG, LIP, MDW, CBC, CMP, MORPH, DIFF #### [address] [address] Neutrophils/100 WBC (Bld) 81.4 % High 37.0-80.0 [facility] ([place]) Comment on above: Performed By: #### G FR, MG, LIP, MDW, CBC, CMP, MORPH, DIFF #### [address] [address] .GFRon 01-15-2023 GFR 72 ml/min/1.73sqm Normal [facility] ([place]) Comment on above: Result Comment: GFR Population [...] LIP, MDW, CBC, CMP, MORPH, DIFF #### [address] [address] GFR Non- 59 ml/min/1.73sqm Normal [facility] ([place]) Comment on above: Result Comment: GFR Population [...] LIP, MDW, CBC, CMP, MORPH, DIFF #### [address] [address] .MDWon 01-15-2023 Monocyte Distribution Width 21.20 High 0.00-20.00 [facility] ([place]) Comment on above: Result Comment: For adults in ED, MDW>20.0 may be associated with a higher risk of sepsis during the first 12hrs of hospital admission Performed By: #### G FR, MG, LIP, MDW, CBC, CMP, MORPH, DIFF #### [place] [address] .NEUABSon 01-15-2023 Neutrophil, Absolute 15.3 10 3/mcL High 2.9-6.2 A [facility] ([place]) Comment on above: Performed By: #### G FR, MG, LIP, MDW, CBC, CMP, MORPH, DIFF #### [place] [address] .Urinalysis Microscopic (AO) on 01-15-2023 UA Coarse Granular Casts 0-5 Abnormal [facility] ([place]) Comment on above: Performed By: #### G FR, MG, LIP, MDW, CBC, CMP, MORPH, DIFF #### [place] [address] UA Hyal Cast 10-15 Abnormal [facility] ([place]) Comment on above: Performed By: #### G FR, MG, LIP, MDW, CBC, CMP, MORPH, DIFF #### [address] [address] UA Bacteria 1+ /hpf Abnormal [facility] ([place]) Comment on above: Performed By: #### G FR, MG, LIP, MDW, CBC, CMP, MORPH, DIFF #### [address] [address] UA Mucous 1+ /hpf Normal [facility] ([place]) Comment on above: Performed By: #### G FR, MG, LIP, MDW, CBC, CMP, MORPH, DIFF #### [address] [address] UA RBC 5-10 Abnormal None Seen [facility] ([place]) Comment on above: Performed By: #### G FR, MG, LIP, MDW, CBC, CMP, MORPH, DIFF #### [address] [address] UA Squam Epithelial 0-5 Abnormal None Seen [facility] ([place]) Comment on above: Performed By: #### G FR, MG, LIP, MDW, CBC, CMP, MORPH, DIFF #### [place] [address] UA WBC 5-10 Abnormal None Seen [facility] ([place]) Comment on above: Performed By: #### G FR, MG, LIP, MDW, CBC, CMP, MORPH, DIFF #### [place] [address] UA Yeast Trace Abnormal [facility] ([place]) Comment on above: Performed By: #### G FR, MG, LIP, MDW, CBC, CMP, MORPH, DIFF #### [place] [address] CBCon 01-15-2023 Erythrocyte distribution width (RBC) [Ratio] 18.0 % High 11.5-14.5 [facility] ([place]) Comment on above: Performed By: #### G FR, MG, LIP, MDW, CBC, CMP, MORPH, DIFF #### [place] [address] Hematocrit (Bld) [Volume fraction] 42.0 % Normal 42.0-52.0 [facility] ([place]) Comment on above: Performed By: #### G FR, MG, LIP, MDW, CBC, CMP, MORPH, DIFF #### [place] [address] Hgb 13.6 G/dL Low 14.0-18.0 [facility] ([place]) Comment on above: Performed By: #### G FR, MG, LIP, MDW, CBC, CMP, MORPH, DIFF #### [address] [address] MCH (RBC) [Entitic mass] 26.2 pg Low 27.0-31.2 [facility] ([place]) Comment on above: Performed By: #### G FR, MG, LIP, MDW, CBC, CMP, MORPH, DIFF #### [place] [address] MCHC 32.4 G/dL Normal 31.8-35.4 [facility] ([place]) Comment on above: Performed By: #### G FR, MG, LIP, MDW, CBC, CMP, MORPH, DIFF #### [address] [address] MCV (RBC) [Entitic vol] 80.8 fL Normal 80.0-94.0 A [facility] ([place]) Comment on above: Performed By: #### G FR, MG, LIP, MDW, CBC, CMP, MORPH, DIFF #### [address] [address] Platelet 492 10 3/mcL High 130-400 [facility] ([place]) Comment on above: Performed By: #### G FR, MG, LIP, MDW, CBC, CMP, MORPH, DIFF #### [address] [address] Platelet mean volume (Bld) [Entitic vol] 8.7 fL Normal 7.4-10.4 [facility] ([place]) Comment on above: Performed By: #### G FR, MG, LIP, MDW, CBC, CMP, MORPH, DIFF #### [address] [address] RBC 5.20 10 6/mcL Normal 4.04-6.13 [facility] ([place]) Comment on above: Performed By: #### G FR, MG, LIP, MDW, CBC, CMP, MORPH, DIFF #### [address] [address] WBC 18.8 10 3/mcL High 4.6-10.8 [facility] ([place]) Comment on above: Performed By: #### G FR, MG, LIP, MDW, CBC, CMP, MORPH, DIFF #### [address] [address] CMPon 01-15-2023 AST [Catalytic activity/Vol] 25 U/L Normal 10-40 [facility] ([place]) Comment on above: Performed By: #### G FR, MG, LIP, MDW, CBC, CMP, MORPH, DIFF #### [address] [address] Calcium [Mass/Vol] 10.8 mg/dL High 8.4-10.2 [facility] ([place]) Comment on above: Performed By: #### G FR, MG, LIP, MDW, CBC, CMP, MORPH, DIFF #### [address] [address] Albumin Level 4.4 G/dL Normal 3.4-4.8 [facility] ([place]) Comment on above: Performed By: #### G FR, MG, LIP, MDW, CBC, CMP, MORPH, DIFF #### [address] [address] Albumin/Globulin [Mass ratio] 1.3 {ratio} Normal 1.1-2.5 [facility] ([place]) Comment on above: Performed By: #### G FR, MG, LIP, MDW, CBC, CMP, MORPH, DIFF #### [address] [address] ALP [Catalytic activity/Vol] 72 U/L Normal 40-135 [facility] ([place]) Comment on above: Performed By: #### G FR, MG, LIP, MDW, CBC, CMP, MORPH, DIFF #### [address] [address] ALT [Catalytic activity/Vol] 16 U/L Normal 16-63 [facility] ([place]) Comment on above: Performed By: #### G FR, MG, LIP, MDW, CBC, CMP, MORPH, DIFF #### [address] [address] Bili Total 0.3 mg/dL Normal 0.2-1.0 [facility] ([place]) Comment on above: Result Comment: Use of this assay is not recommended for patients undergoing treatment with eltrombopag due to the potential for falsely elevated results. Performed By: #### G FR, MG, LIP, MDW, CBC, CMP, MORPH, DIFF #### [address] [address] BUN/Creatinine Ratio 11 ratio Normal 7-27 [facility] [place] Comment on above: Performed By: #### G FR, MG, LIP, MDW, CBC, CMP, MORPH, DIFF #### [address] [address] Chloride [Moles/Vol] 104 mmol/L Normal 98-107 [facility] [place] Comment on above: Performed By: #### G FR, MG, LIP, MDW, CBC, CMP, MORPH, DIFF #### [address] [address] CO2 [Moles/Vol] 25 mmol/L Normal 23-31 [facility] ([place]) Comment on above: Performed By: #### G FR, MG, LIP, MDW, CBC, CMP, MORPH, DIFF #### [address] [address] Creatinine [Mass/Vol] 1.23 mg/dL Normal 0.70-1.30 [facility] ([place]) Comment on above: Performed By: #### G FR, MG, LIP, MDW, CBC, CMP, MORPH, DIFF #### [address] [address] Electrolyte Balance 14.0 mEq/L Normal 4.0-15.0 [facility] ([place]) Comment on above: Performed By: #### G FR, MG, LIP, MDW, CBC, CMP, MORPH, DIFF #### [address] [address] Globulin 3.5 G/dL Normal [facility] ([place]) Comment on above: Performed By: #### G FR, MG, LIP, MDW, CBC, CMP, MORPH, DIFF #### [address] [address] Glucose [Mass/Vol] 133 mg/dL High 80-115 [facility] ([place]) Comment on above: Performed By: #### G FR, MG, LIP, MDW, CBC, CMP, MORPH, DIFF #### [address] [address] Potassium [Moles/Vol] 3.8 mmol/L Normal 3.5-5.1 [facility] ([place]) Comment on above: Performed By: #### G FR, MG, LIP, MDW, CBC, CMP, MORPH, DIFF #### [place] [id number] [place], [place] [address] Sodium [Moles/Vol] 143 mmol/L Normal 136-145 [facility] ([place]) Comment on above: Performed By: #### G FR, MG, LIP, MDW, CBC, CMP, MORPH, DIFF #### [place] [id number] [place], [place] [address] Total Protein 7.9 G/dL Normal 6.4-8.2 [facility] ([place]) Comment on above: Performed By: #### G FR, MG, LIP, MDW, CBC, CMP, MORPH, DIFF #### [address] [address] Urea nitrogen [Mass/Vol] 14 mg/dL Normal 7-18 [facility] ([place]) Comment on above: Performed By: #### G FR, MG, LIP, MDW, CBC, CMP, MORPH, DIFF #### [place] [id number] [place], [place] [address] CT ABD/PELVIS W/ IV CONTRAST ONLYon 01-15-2023 [...] 4:15:44 AM Ordering Provider: SOBEIDA LOGAN Normal [facility]) [facility] 01-15-2023 Lipase Level 49 U/L Normal 16-77 [facility]) Comment on above: Performed By: #### G FR, MG, LIP, MDW, CBC, CMP, MORPH, DIFF #### [address] [address] UAon 01-15-2023 Color (U) Yellow Normal [facility]) Comment on above: Performed By: #### G FR, MG, LIP, MDW, CBC, CMP, MORPH, DIFF #### [address] [address] Glucose (U) [Mass/Vol] Negative Normal Negative [facility] ([place]) Comment on above: Performed By: #### G FR, MG, LIP, MDW, CBC, CMP, MORPH, DIFF #### [address] [address] Ketones Ql (U) Negative Normal Negative [facility] ([place]) Comment on above: Performed By: #### G FR, MG, LIP, MDW, CBC, CMP, MORPH, DIFF #### [address] [address] UA Appear Slightly Cloudy Abnormal Clear [facility] ([place]) Comment on above: Performed By: #### G FR, MG, LIP, MDW, CBC, CMP, MORPH, DIFF #### [address] [address] UA Blood Trace Abnormal Negative [facility] ([place]) Comment on above: Performed By: #### G FR, MG, LIP, MDW, CBC, CMP, MORPH, DIFF #### [address] [address] UA Leuk Est Negative Normal Negative [facility] ([place]) Comment on above: Performed By: #### G FR, MG, LIP, MDW, CBC, CMP, MORPH, DIFF #### [address] [address] UA Nitrite Negative Normal Negative [facility] ([place]) Comment on above: Performed By: #### G FR, MG, LIP, MDW, CBC, CMP, MORPH, DIFF #### [address] [address] UA pH 7.0 Normal 5.0 - 8.0 [facility] ([place]) Comment on above: Performed By: #### G FR, MG, LIP, MDW, CBC, CMP, MORPH, DIFF #### [address] [address] UA Protein 100 mg/dL Abnormal Negative [facility] ([place]) Comment on above: Performed By: #### G FR, MG, LIP, MDW, CBC, CMP, MORPH, DIFF #### [address] [address] UA Spec Grav 1.015 Normal 1.015-1.02 5 [facility] ([place]) Comment on above: Performed By: #### G FR, MG, LIP, MDW, CBC, CMP, MORPH, DIFF #### [place] [id number] [place], [place] [address] UA Specimen Type Clean Catch Normal [facility] ([place]) Comment on above: Performed By: #### G FR, MG, LIP, MDW, CBC, CMP, MORPH, DIFF #### [address] [address] UA Urobilinogen 0.2 E.U./dL Normal 0.2-1.0 [facility] ([place]) Comment on above: Performed By: #### G FR, MG, LIP, MDW, CBC, CMP, MORPH, DIFF #### [place] [id number] [place], [place] [address] Urobilinogen (U) [Mass/Vol] Negative Normal Negative [facility] ([place]) Comment on above: Performed By: #### G FR, MG, LIP, MDW, CBC, CMP, MORPH, DIFF #### [address] [address] Absolute lymphocyte countOrd ered By: Dr. Ramos on 01-01-2023 Lymphocytes Auto (Unsp spec) [#/Vol] 0.85 10*3/uL 0.83-4.51 [facility] Basophil percentageOrdered B y: Dr. Ramos on 01-01-2023 Basophils/100 WBC (Bld) 0.3 % 0-1 [facility] Bilirubin [Mass/Vol] 0.30 mg/dL 0.20-1.00 [facility] Comment on above: For patients on eltr ombopag therapy, use of Dimension [place] TBIL is not recommended. Chloride [Moles/Vol] 111 mmol/L 98-107 [facility] Eosinophils/100 WBC (Bld) 0.0 % 0-5 [facility] Glucose [Mass/Vol] 126 mg/dL 74-106 [facility] Comment on above: Fasting Glucose resu lt greater than or equal to 126 mg/dL suggests DIABETES MELLITUS per A.D.A. criteria. Neutrophils (Bld) [#/Vol] 13.2 10*3/uL 2.0-7.7 [facility] Neutrophils/100 WBC (Bld) 90.0 % 47-70 [facility] Potassium [Moles/Vol] 3.8 mmol/L 3.5-5.1 [facility] Protein [Mass/Vol] 7.4 g/dL 6.4-8.2 [facility] Sodium [Moles/Vol] 140 mmol/L 136-145 [facility] WBC (Bld) [#/Vol] 14.6 10*3/uL 4.4-11.0 [facility] Blood erythrocytes count (nu mber/volume)Ordered By: Dr. Ramos on 01-01-2023 RBC (Bld) [#/Vol] 4.71 10*6/uL 4.6-6.2 [facility] Blood hemoglobin measurement (mass/volume)Ordered By: Dr. Ramos on 01-01-2023 Hemoglobin (Bld) [Mass/Vol] 12.9 g/dL 13.0-16.5 [facility] Blood lymphocytes/100 leukoc ytesOrdered By: Dr. Ramos on 01-01-2023 Lymphocytes/100 WBC (Bld) 5.8 % 19-41 [facility] Blood monocytes/100 leukocyt esOrdered By: Dr. Ramos on 01-01-2023 Monocytes/100 WBC (Bld) 3.1 % 0-10 [facility] Blood platelet mean volumeOr dered By: Dr. Ramos on 01-01-2023 Platelet mean volume (Bld) [Entitic vol] 10.0 fL 6.2-12.0 [facility] CNOVon 01-01-2023 CNOV Office Visit (UCWSTR ) -------- MINDY ROSARIO III ([id number]) 1960 M Date Time Provider Department 01/01/23 1:15 PM MADDIE KEARNEY [facility] During your visit today, we recorded the following information about you: Maddie Kearney MD 01/01/2023 1:16 PM Signed Express [...] response syndrome) *11/12/2019 11/13/2019 Encounter Status:Closed by MADDIE KEARNEY on 01/01/23 [facility] Determination of erythrocyte mean corpuscular volume (MCV)Ordered By: Dr. Ramos on 01-01-2023 MCV (RBC) [Entitic vol] 83.2 fL 80-94 [facility] Comment on above: Delta: 88.7 on 12/27-1600 Hematocrit Auto (Bld) [Volum e fraction]Ordered By: Dr. Ramos on 01-01-2023 Hematocrit (Bld) [Volume fraction] 39.2 % 40-54 [facility] Laboratory - Chemistry and C hemistry - challengeOrdered By: Dr. Ramos on 01-01-2023 ALP [Catalytic activity/Vol] 62 U/L 45-117 [facility] ALT [Catalytic activity/Vol] 17 U/L 16-61 [facility] CO2 [Moles/Vol] 21.0 mmol/L 21.0-32.0 [facility] Globulin (S) [Mass/Vol] 3.7 g/dL 2.2-4.2 [facility] Lipase [Catalytic activity/Vol] 166 U/L 73-393 [facility] Urea nitrogen/Creatinine [Mass ratio] 11.8 mg/mg 10-20 [facility] Laboratory - Hematology and Cell countsOrdered By: Dr. Ramos on 01-01-2023 Erythrocyte distribution width (RBC) [Entitic vol] 52.2 fL 35.1-43.9 [facility] Erythrocyte distribution width (RBC) [Ratio] 17.2 % 11.6-14.6 [facility] Immature granulocytes/100 WBC (Bld) 0.800 % 0.0-0.9 [facility] Comment on above: IG% - Immature Granu locytes (promyelocytes, myelocytes and metamyelocytes) > 1% indicates that a LEFT SHIFT is Present. MCH (RBC) [Entitic mass] 27.4 pg 27.0-32.0 [facility] Nucleated RBC/100 WBC (Bld) [Ratio] 0 % 0-5 [facility] MCHC Auto (RBC) [Mass/Vol]Or dered By: Dr. Ramos on 01-01-2023 MCHC (RBC) [Mass/Vol] 32.9 g/dL 32-36 [facility] Comment on above: Delta: 30.5 on 12/27-1599 No Panel InformationOrdered By: Dr. Ramos on 01-01-2023 Estimated Creatinine Clearance Calc 64.75 ml/min [facility] Estimated GFR (MDRD) Amer 79 mL/min >60 [facility] Comment on above: GFR Calc Estimated GFR (MDRD) Non-Af Amer 65 mL/min >60 [facility] Comment on above: Non- GFR Calc Platelets bldOrdered By: Dr. Ramos on 01-01-2023 Platelets (Bld) [#/Vol] 410 10*3/uL 150-450 [facility] Serum or plasma albumin madelyn urement (mass/volume)Ordered By: Dr. Ramos on 01-01-2023 Albumin [Mass/Vol] 3.7 g/dL 3.2-5.0 [facility] Serum or plasma albumin/glob ulin mass ratioOrdered By: Dr. Ramos on 01-01-2023 Albumin/Globulin [Mass ratio] 1.0 {ratio} 0.9-2.4 [facility] Serum or plasma calcium madelyn urement (mass/volume)Ordered By: Dr. Ramos on 01-01-2023 Calcium [Mass/Vol] 9.5 mg/dL 8.5-10.1 [facility] Serum or plasma creatinine m easurement (mass/volume)Ordered By: Dr. Ramos on 01-01-2023 Creatinine [Mass/Vol] 1.19 mg/dL 0.70-1.30 [facility] Comment on above: The validity of the calculated GFR & GFRAA in patients over 70 years has not been determined. Clinical correlation is essential. Serum or plasma urea nitroge n measurement (mass/volume)Ordered By: Dr. Ramos on 01-01-2023 Urea nitrogen [Mass/Vol] 14 mg/dL 7-18 [facility] Thin prep Papanicolaou smear with manual screeningOrdered By: Dr. Ramos on 01-01-2023 Thin prep Papanicolaou smear with manual screening 15 U/L 15-37 [facility] Thin prep Papanicolaou smear with manual screening 8 5-15 [facility] Absolute lymphocyte countOrd ered By: ED PROVIDER on 12-27-2022 Lymphocytes Auto (Unsp spec) [#/Vol] 1.02 10*3/uL 0.83-4.51 [facility] Basophil percentageOrdered B y: Dr. Maldonado on 12-27-2022 Bilirubin [Mass/Vol] 0.40 mg/dL 0.20-1.00 [facility] Comment on above: For patients on eltr ombopag therapy, use of Dimension [place] TBIL is not recommended. Protein [Mass/Vol] 8.0 g/dL 6.4-8.2 [facility] Basophil percentageOrdered B y: ED PROVIDER on 12-27-2022 Basophils/100 WBC (Bld) 0.3 % 0-1 [facility] Chloride [Moles/Vol] 109 mmol/L 98-107 [facility] Eosinophils/100 WBC (Bld) 0.1 % 0-5 [facility] Glucose [Mass/Vol] 162 mg/dL 74-106 [facility] Comment on above: Fasting Glucose resu lt greater than or equal to 126 mg/dL suggests DIABETES MELLITUS per A.D.A. criteria. Neutrophils (Bld) [#/Vol] 13.3 10*3/uL 2.0-7.7 [facility] Neutrophils/100 WBC (Bld) 88.9 % 47-70 [facility] Potassium [Moles/Vol] 4.7 mmol/L 3.5-5.1 [facility] Comment on above: Moderate Hemolysis, Result may be falsely increased. Sodium [Moles/Vol] 136 mmol/L 136-145 [facility] WBC (Bld) [#/Vol] 15.0 10*3/uL 4.4-11.0 [facility] Blood erythrocytes count (nu mber/volume)Ordered By: ED PROVIDER on 12-27-2022 RBC (Bld) [#/Vol] 4.95 10*6/uL 4.6-6.2 [facility] Blood hemoglobin measurement (mass/volume)Ordered By: ED PROVIDER on 12-27-2022 Hemoglobin (Bld) [Mass/Vol] 13.4 g/dL 13.0-16.5 [facility] Blood lymphocytes/100 leukoc ytesOrdered By: ED PROVIDER on 12-27-2022 Lymphocytes/100 WBC (Bld) 6.8 % 19-41 [facility] Blood monocytes/100 leukocyt esOrdered By: ED PROVIDER on 12-27-2022 Monocytes/100 WBC (Bld) 3.3 % 0-10 [facility] Blood platelet mean volumeOr dered By: ED PROVIDER on 12-27-2022 Platelet mean volume (Bld) [Entitic vol] 9.7 fL 6.2-12.0 [facility] Determination of erythrocyte mean corpuscular volume (MCV)Ordered By: ED PROVIDER on 12-27-2022 MCV (RBC) [Entitic vol] 88.7 fL 80-94 [facility] Direct bilirubinOrdered By: Dr. Maldonado on 12-27-2022 Bilirubin.direct [Mass/Vol] 0.08 mg/dL 0.00-0.30 [facility] Hematocrit Auto (Bld) [Volum e fraction]Ordered By: ED PROVIDER on 12-27-2022 Hematocrit (Bld) [Volume fraction] 43.9 % 40-54 [facility] Laboratory - Chemistry and C hemistry - challengeOrdered By: Dr. Maldonado on 12-27-2022 ALP [Catalytic activity/Vol] 64 U/L 45-117 [facility] ALT [Catalytic activity/Vol] 18 U/L 16-61 [facility] Globulin (S) [Mass/Vol] 3.9 g/dL 2.2-4.2 [facility] Lipase [Catalytic activity/Vol] 100 U/L 73-393 [facility] - Chemistry and C hemistry - challengeOrdered By: ED PROVIDER on 12-27-2022 CO2 [Moles/Vol] 17.0 mmol/L 21.0-32.0 [facility] Urea nitrogen/Creatinine [Mass ratio] 7.3 mg/mg 10-20 [facility] - Hematology and Cell countsOrdered By: ED PROVIDER on 12-27-2022 Erythrocyte distribution width (RBC) [Entitic vol] 57.4 fL 35.1-43.9 [facility] Erythrocyte distribution width (RBC) [Ratio] 17.6 % 11.6-14.6 [facility] Immature granulocytes/100 WBC (Bld) 0.600 % 0.0-0.9 [facility] Comment on above: IG% - Immature Granu locytes (promyelocytes, myelocytes and metamyelocytes) > 1% indicates that a LEFT SHIFT is Present. MCH (RBC) [Entitic mass] 27.1 pg 27.0-32.0 [facility] Nucleated RBC/100 WBC (Bld) [Ratio] 0 % 0-5 [facility] MCHC Auto (RBC) [Mass/Vol]Or dered By: ED PROVIDER on 12-27-2022 MCHC (RBC) [Mass/Vol] 30.5 g/dL 32-36 [facility] No Panel InformationOrdered By: ED PROVIDER on 12-27-2022 Estimated GFR (MDRD) Amer 75 mL/min >60 [facility] Comment on above: GFR Calc Estimated GFR (MDRD) Non-Af Amer 62 mL/min >60 [facility] Comment on above: Non- GFR Calc Platelets bldOrdered By: ED PROVIDER on 12-27-2022 Platelets (Bld) [#/Vol] 503 10*3/uL 150-450 [facility] Serum or plasma albumin madelyn urement (mass/volume)Ordered By: Dr. Maldonado on 12-27-2022 Albumin [Mass/Vol] 4.1 g/dL 3.2-5.0 [facility] Serum or plasma calcium madelyn urement (mass/volume)Ordered By: ED PROVIDER on 12-27-2022 Calcium [Mass/Vol] 10.1 mg/dL 8.5-10.1 [facility] Serum or plasma creatinine m easurement (mass/volume)Ordered By: ED PROVIDER on 12-27-2022 Creatinine [Mass/Vol] 1.24 mg/dL 0.70-1.30 [facility] Comment on above: The validity of the calculated GFR & GFRAA in patients over 70 years has not been determined. Clinical correlation is essential. Serum or plasma urea nitroge n measurement (mass/volume)Ordered By: ED PROVIDER on 12-27-2022 Urea nitrogen [Mass/Vol] 9 mg/dL 7-18 [facility] Thin prep Papanicolaou smear with manual screeningOrdered By: Dr. Maldonado on 12-27-2022 Thin prep Papanicolaou smear with manual screening 31 U/L 15-37 [facility] Comment on above: Moderate Hemolysis, Result may be falsely increased. Thin prep Papanicolaou smear with manual screeningOrdered By: ED PROVIDER on 12-27-2022 Thin prep Papanicolaou smear with manual screening 10 5-15 [facility] Absolute lymphocyte countOrd ered By: Dr. Lane on 12-06-2022 Lymphocytes Auto (Unsp spec) [#/Vol] 0.76 10*3/uL 0.83-4.51 [facility] Basophil percentageOrdered B y: Dr. Lane on 12-06-2022 Basophils/100 WBC (Bld) 0.4 % 0-1 [facility] Bilirubin [Mass/Vol] 0.30 mg/dL 0.20-1.00 [facility] Comment on above: For patients on eltr ombopag therapy, use of Dimension [place] TBIL is not recommended. Chloride [Moles/Vol] 108 mmol/L 98-107 [facility] Eosinophils/100 WBC (Bld) 0.2 % 0-5 [facility] Glucose [Mass/Vol] 117 mg/dL 74-106 [facility] Comment on above: Fasting Glucose resu lt from 100 to 125 mg/dL suggests IMPAIRED HOMEOSTASIS per A.D.A. criteria. Neutrophils (Bld) [#/Vol] 9.3 10*3/uL 2.0-7.7 [facility] Neutrophils/100 WBC (Bld) 89.1 % 47-70 [facility] Potassium [Moles/Vol] 4.1 mmol/L 3.5-5.1 [facility] Comment on above: Moderate Hemolysis, Result may be falsely increased. Protein [Mass/Vol] 7.6 g/dL 6.4-8.2 [facility] Sodium [Moles/Vol] 141 mmol/L 136-145 [facility] WBC (Bld) [#/Vol] 10.4 10*3/uL 4.4-11.0 [facility] Blood erythrocytes count (nu mber/volume)Ordered By: Dr. Lane on 12-06-2022 RBC (Bld) [#/Vol] 4.69 10*6/uL 4.6-6.2 [facility] Blood hemoglobin measurement (mass/volume)Ordered By: Dr. Lane on 12-06-2022 Hemoglobin (Bld) [Mass/Vol] 12.7 g/dL 13.0-16.5 [facility] Blood lymphocytes/100 leukoc ytesOrdered By: Dr. Lane on 12-06-2022 Lymphocytes/100 WBC (Bld) 7.3 % 19-41 [facility] Blood monocytes/100 leukocyt esOrdered By: Dr. Lane on 12-06-2022 Monocytes/100 WBC (Bld) 2.5 % 0-10 [facility] Blood platelet mean volumeOr dered By: Dr. Lane on 12-06-2022 Platelet mean volume (Bld) [Entitic vol] 9.9 fL 6.2-12.0 [facility] Determination of erythrocyte mean corpuscular volume (MCV)Ordered By: Dr. Lane on 12-06-2022 MCV (RBC) [Entitic vol] 84.4 fL 80-94 [facility] Direct bilirubinOrdered By: Dr. Lane on 12-06-2022 Bilirubin.direct [Mass/Vol] mg/dL 0.00-0.30 [facility] Hematocrit Auto (Bld) [Volum e fraction]Ordered By: Dr. Lane on 12-06-2022 Hematocrit (Bld) [Volume fraction] 39.6 % 40-54 [facility] Laboratory - Chemistry and C hemistry - challengeOrdered By: Dr. Lane on 12-06-2022 ALP [Catalytic activity/Vol] 63 U/L 45-117 [facility] ALT [Catalytic activity/Vol] 19 U/L 16-61 [facility] CO2 [Moles/Vol] 23.0 mmol/L 21.0-32.0 [facility] Globulin (S) [Mass/Vol] 3.9 g/dL 2.2-4.2 [facility] Lipase [Catalytic activity/Vol] 167 U/L 73-393 [facility] Urea nitrogen/Creatinine [Mass ratio] 11.4 mg/mg 10-20 [facility] Laboratory - Hematology and Cell countsOrdered By: Dr. Lane on 12-06-2022 Erythrocyte distribution width (RBC) [Entitic vol] 51.8 fL 35.1-43.9 [facility] Erythrocyte distribution width (RBC) [Ratio] 16.9 % 11.6-14.6 [facility] Immature granulocytes/100 WBC (Bld) 0.500 % 0.0-0.9 [facility] Comment on above: IG% - Immature Granu locytes (promyelocytes, myelocytes and metamyelocytes) > 1% indicates that a LEFT SHIFT is Present. MCH (RBC) [Entitic mass] 27.1 pg 27.0-32.0 [facility] Nucleated RBC/100 WBC (Bld) [Ratio] 0 % 0-5 [facility] Auto (RBC) [Mass/Vol]Or dered By: Dr. Lane on 12-06-2022 MCHC (RBC) [Mass/Vol] 32.1 g/dL 32-36 [facility] No Panel InformationOrdered By: Dr. Lane on 12-06-2022 Estimated Creatinine Clearance Calc 73.39 ml/min [facility] Estimated GFR (MDRD) Amer 91 mL/min >60 [facility] Comment on above: GFR Calc Estimated GFR (MDRD) Non-Af Amer 75 mL/min >60 [facility] Comment on above: Non- GFR Calc Platelets bldOrdered By: Dr. Lane on 12-06-2022 Platelets (Bld) [#/Vol] 387 10*3/uL 150-450 [facility] Serum or plasma albumin madelyn urement (mass/volume)Ordered By: Dr. Lane on 12-06-2022 Albumin [Mass/Vol] 3.7 g/dL 3.2-5.0 [facility] Serum or plasma calcium madelyn urement (mass/volume)Ordered By: Dr. Lane on 12-06-2022 Calcium [Mass/Vol] 9.5 mg/dL 8.5-10.1 [facility] Serum or plasma creatinine m easurement (mass/volume)Ordered By: Dr. Lane on 12-06-2022 Creatinine [Mass/Vol] 1.05 mg/dL 0.70-1.30 [facility] Comment on above: The validity of the calculated GFR & GFRAA in patients over 70 years has not been determined. Clinical correlation is essential. Serum or plasma urea nitroge n measurement (mass/volume)Ordered By: Dr. Lane on 12-06-2022 Urea nitrogen [Mass/Vol] 12 mg/dL 7-18 [facility] Thin prep Papanicolaou smear with manual screeningOrdered By: Dr. Lane on 12-06-2022 Thin prep Papanicolaou smear with manual screening 31 U/L 15- [facility] Comment on above: Moderate Hemolysis, Result may be falsely increased. Thin prep Papanicolaou smear with manual screening 10 5-15 [facility] Absolute lymphocyte countOrd ered By: Dr. Yoon on 11-17-2022 Lymphocytes Auto (Unsp spec) [#/Vol] 0.78 10*3/uL 0.83-4.51 [facility] Basophil percentageOrdered B y: Dr. Yoon on 11-17-2022 Basophils/100 WBC (Bld) 0.2 % 0-1 [facility] Bilirubin [Mass/Vol] 0.50 mg/dL 0.20-1.00 [facility] Comment on above: For patients on eltr ombopag therapy, use of Dimension [place] TBIL is not recommended. Chloride [Moles/Vol] 111 mmol/L 98-107 [facility] Eosinophils/100 WBC (Bld) 0.0 % 0-5 [facility] Glucose [Mass/Vol] 149 mg/dL 74-106 [facility] Comment on above: Fasting Glucose resu lt greater than or equal to 126 mg/dL suggests DIABETES MELLITUS per A.D.A. criteria. Neutrophils (Bld) [#/Vol] 13.0 10*3/uL 2.0-7.7 [facility] Neutrophils/100 WBC (Bld) 90.3 % 47-70 [facility] Potassium [Moles/Vol] 4.0 mmol/L 3.5-5.1 [facility] Comment on above: Moderate Hemolysis, Result may be falsely increased. Protein [Mass/Vol] 8.2 g/dL 6.4-8.2 [facility] Sodium [Moles/Vol] 142 mmol/L 136-145 [facility] WBC (Bld) [#/Vol] 14.4 10*3/uL 4.4-11.0 [facility] Blood erythrocytes count (nu mber/volume)Ordered By: Dr. Yoon on 11-17-2022 RBC (Bld) [#/Vol] 5.21 10*6/uL 4.6-6.2 [facility] Blood hemoglobin measurement (mass/volume)Ordered By: Dr. Yoon on 11-17-2022 Hemoglobin (Bld) [Mass/Vol] 13.9 g/dL 13.0-16.5 [facility] Blood lymphocytes/100 leukoc ytesOrdered By: Dr. Yoon on 11-17-2022 Lymphocytes/100 WBC (Bld) 5.4 % 19-41 [facility] Blood monocytes/100 leukocyt esOrdered By: Dr. Yoon on 11-17-2022 Monocytes/100 WBC (Bld) 3.2 % 0-10 [facility] Blood platelet mean volumeOr dered By: Dr. Yoon on 11-17-2022 Platelet mean volume (Bld) [Entitic vol] 10.2 fL 6.2-12.0 [facility] Determination of erythrocyte mean corpuscular volume (MCV)Ordered By: Dr. Yoon on 11-17-2022 MCV (RBC) [Entitic vol] 82.7 fL 80-94 [facility] Hematocrit Auto (Bld) [Volum e fraction]Ordered By: Dr. Yoon on 11-17-2022 Hematocrit (Bld) [Volume fraction] 43.1 % 40-54 [facility] Laboratory - Chemistry and C hemistry - challengeOrdered By: Dr. Yoon on 11-17-2022 ALP [Catalytic activity/Vol] 64 U/L 45-117 [facility] ALT [Catalytic activity/Vol] 22 U/L 16-61 [facility] CO2 [Moles/Vol] 18.0 mmol/L 21.0-32.0 [facility] Globulin (S) [Mass/Vol] 4.0 g/dL 2.2-4.2 [facility] Lipase [Catalytic activity/Vol] 110 U/L 73-393 [facility] Urea nitrogen/Creatinine [Mass ratio] 5.3 mg/mg 10-20 [facility] Laboratory - Hematology and Cell countsOrdered By: Dr. Yoon on 11-17-2022 Erythrocyte distribution width (RBC) [Entitic vol] 51.3 fL 35.1-43.9 [facility] Erythrocyte distribution width (RBC) [Ratio] 17.2 % 11.6-14.6 [facility] Immature granulocytes/100 WBC (Bld) 0.900 % 0.0-0.9 [facility] Comment on above: IG% - Immature Granu locytes (promyelocytes, myelocytes and metamyelocytes) > 1% indicates that a LEFT SHIFT is Present. MCH (RBC) [Entitic mass] 26.7 pg 27.0-32.0 [facility] Nucleated RBC/100 WBC (Bld) [Ratio] 0 % 0-5 [facility] MCHC Auto (RBC) [Mass/Vol]Or dered By: Dr. Yoon on 11-17-2022 MCHC (RBC) [Mass/Vol] 32.3 g/dL 32-36 [facility] No Panel InformationOrdered By: Dr. Yoon on 11-17-2022 Estimated Creatinine Clearance Calc 58.82 ml/min [facility] Estimated GFR (MDRD) Amer 71 mL/min >60 [facility] Comment on above: GFR Calc Estimated GFR (MDRD) Non-Af Amer 58 mL/min >60 [facility] Comment on above: Non- GFR Calc Platelets bldOrdered By: Dr. Yoon on 11-17-2022 Platelets (Bld) [#/Vol] 464 10*3/uL 150-450 [facility] Serum or plasma albumin madelyn urement (mass/volume)Ordered By: Dr. Yoon on 11-17-2022 Albumin [Mass/Vol] 4.2 g/dL 3.2-5.0 [facility] Serum or plasma albumin/glob ulin mass ratioOrdered By: Dr. Yoon on 11-17-2022 Albumin/Globulin [Mass ratio] 1.0 {ratio} 0.9-2.4 [facility] Serum or plasma calcium madelyn urement (mass/volume)Ordered By: Dr. Yoon on 11-17-2022 Calcium [Mass/Vol] 10.3 mg/dL 8.5-10.1 [facility] Serum or plasma creatinine m easurement (mass/volume)Ordered By: Dr. Yoon on 11-17-2022 Creatinine [Mass/Vol] 1.31 mg/dL 0.70-1.30 [facility] Comment on above: The validity of the calculated GFR & GFRAA in patients over 70 years has not been determined. Clinical correlation is essential. Serum or plasma urea nitroge n measurement (mass/volume)Ordered By: Dr. Yoon on 11-17-2022 Urea nitrogen [Mass/Vol] 7 mg/dL 7-18 [facility] Thin prep Papanicolaou smear with manual screeningOrdered By: Dr. Yoon on 11-17-2022 Thin prep Papanicolaou smear with manual screening 30 U/L 15-37 [facility] Comment on above: Moderate Hemolysis, Result may be falsely increased. Thin prep Papanicolaou smear with manual screening 13 5-15 [facility] Absolute lymphocyte countOrd ered By: Dr. Maldonado on 11-11-2022 Lymphocytes Auto (Unsp spec) [#/Vol] 0.96 10*3/uL 0.83-4.51 [facility] Basophil percentageOrdered B y: Dr. Maldonado on 11-11-2022 Basophil percentage 0-5 SEEN /hpf 0-5 [facility] Basophils/100 WBC (Bld) 0.2 % 0-1 [facility] Bilirubin [Mass/Vol] 0.60 mg/dL 0.20-1.00 [facility] Comment on above: For patients on eltr ombopag therapy, use of Dimension [place] TBIL is not recommended. Chloride [Moles/Vol] 104 mmol/L 98-107 [facility] Eosinophils/100 WBC (Bld) 0.1 % 0-5 [facility] Glucose [Mass/Vol] 115 mg/dL 74-106 [facility] Comment on above: Fasting Glucose resu lt from 100 to 125 mg/dL suggests IMPAIRED HOMEOSTASIS per A.D.A. criteria. Lactate [Moles/Vol] 2.0 mmol/L 0.4-2.0 [facility] Comment on above: Critical Result(s) C alled at: 17:22:12 11/11/2022 by: Cordelia Guy. Results read back by same. Neutrophils (Bld) [#/Vol] 16.0 10*3/uL 2.0-7.7 [facility] Neutrophils/100 WBC (Bld) 90.0 % 47-70 [facility] Potassium [Moles/Vol] 3.7 mmol/L 3.5-5.1 [facility] Protein [Mass/Vol] 7.9 g/dL 6.4-8.2 [facility] Sodium [Moles/Vol] 137 mmol/L 136-145 [facility] WBC (Bld) [#/Vol] 17.8 10*3/uL 4.4-11.0 [facility] Bilirubin Test strip Ql (U)O rdered By: Dr. Maldonado on 11-11-2022 Bilirubin Ql (U) 1 mg/dL Negative [facility] Comment on above: COLOR OF URINE MAY A FFECT DIPSTICK RESULTS. Blood erythrocytes count (nu mber/volume)Ordered By: Dr. Maldonado on 11-11-2022 RBC (Bld) [#/Vol] 4.92 10*6/uL 4.2-5.4 [facility] Blood hemoglobin measurement (mass/volume)Ordered By: Dr. Maldonado on 11-11-2022 Hemoglobin (Bld) [Mass/Vol] 13.4 g/dL 12.0-15.0 [facility] Blood lymphocytes/100 leukoc ytesOrdered By: Dr. Maldonado on 11-11-2022 Lymphocytes/100 WBC (Bld) 5.4 % 19-41 [facility] Blood monocytes/100 leukocyt esOrdered By: Dr. Maldonado on 11-11-2022 Monocytes/100 WBC (Bld) 3.6 % 0-10 [facility] Blood platelet mean volumeOr dered By: Dr. Maldonado on 11-11-2022 Platelet mean volume (Bld) [Entitic vol] 9.3 fL 6.2-12.0 [facility] Determination of erythrocyte mean corpuscular volume (MCV)Ordered By: Dr. Maldonado on 11-11-2022 MCV (RBC) [Entitic vol] 82.5 fL 81-99 [facility] Hematocrit Auto (Bld) [Volum e fraction]Ordered By: Dr. Maldonado on 11-11-2022 Hematocrit (Bld) [Volume fraction] 40.6 % 37-47 [facility] Hyaline casts LM.LPF (Urine sed) [#/Area]Ordered By: Dr. Maldonado on 11-11-2022 Hyaline casts (Urine sed) [#/Area] 10 /[LPF] 0-5 [facility] Ketones Test strip Ql (U)Ord ered By: Dr. Maldonado on 11-11-2022 Ketones Ql (U) 15 mg/dl Negative [facility] Laboratory - Chemistry and C hemistry - challengeOrdered By: Dr. Maldonado on 11-11-2022 ALP [Catalytic activity/Vol] 65 U/L 45-117 [facility] ALT [Catalytic activity/Vol] 23 U/L 13-56 [facility] CO2 [Moles/Vol] 21.0 mmol/L 21.0-32.0 [facility] Globulin (S) [Mass/Vol] 3.9 g/dL 2.2-4.2 [facility] Lipase [Catalytic activity/Vol] 141 U/L 73-393 [facility] Urea nitrogen/Creatinine [Mass ratio] 13.2 mg/mg 10-20 [facility] Laboratory - Hematology and Cell countsOrdered By: Dr. Maldonado on 11-11-2022 Erythrocyte distribution width (RBC) [Entitic vol] 48.3 fL 35.1-43.9 [facility] Erythrocyte distribution width (RBC) [Ratio] 16.1 % 11.6-14.6 [facility] Immature granulocytes/100 WBC (Bld) 0.700 % 0.0-0.9 [facility] Comment on above: IG% - Immature Granu locytes (promyelocytes, myelocytes and metamyelocytes) > 1% indicates that a LEFT SHIFT is Present. MCH (RBC) [Entitic mass] 27.2 pg 27.0-32.0 [facility] Nucleated RBC/100 WBC (Bld) [Ratio] 0 % 0-5 [facility] MCHC Auto (RBC) [Mass/Vol]Or dered By: Dr. Maldonado on 11-11-2022 MCHC (RBC) [Mass/Vol] 33.0 g/dL 32-36 [facility] Mucus LM Ql (Urine sed)Order ed By: Dr. Maldonado on 11-11-2022 Mucus Ql (Urine sed) 0 SEEN /hpf [facility] Nitrite Test strip Ql (U)Ord ered By: Dr. Maldonado on 11-11-2022 Nitrite Ql (U) Negative Negative [facility] No Panel InformationOrdered By: Dr. Maldonado on 11-11-2022 Estimated Creatinine Clearance Calc 47.64 ml/min [facility] Estimated GFR (MDRD) Amer 53 mL/min >60 [facility] Comment on above: GFR Calc Estimated GFR (MDRD) Non-Af Amer 44 mL/min >60 [facility] Comment on above: Non- GFR Calc Troponin I High Sensitivity 13 pg/mL 3.0-54.0 [facility] Comment on above: Please Note: New [place]um[place] t Units and Gender Specific Reference Ranges. For more information see Policy Stat Procedure [place] High Sensitivity Troponin (TNIH) and attachments. Platelets bldOrdered By: Dr. Maldonado on 11-11-2022 Platelets (Bld) [#/Vol] 456 10*3/uL 150-450 [facility] Protein Test strip Ql (U)Ord ered By: Dr. Maldonado on 11-11-2022 Protein Ql (U) 100 mg/dl Negative [facility] Serum or plasma albumin madelyn urement (mass/volume)Ordered By: Dr. Maldonado on 11-11-2022 Albumin [Mass/Vol] 4.0 g/dL 3.2-5.0 [facility] Serum or plasma albumin/glob ulin mass ratioOrdered By: Dr. Maldonado on 11-11-2022 Albumin/Globulin [Mass ratio] 1.0 {ratio} 0.9-2.4 [facility] Serum or plasma calcium madelyn urement (mass/volume)Ordered By: Dr. Maldonado on 11-11-2022 Calcium [Mass/Vol] 9.4 mg/dL 8.5-10.1 [facility] Serum or plasma creatinine m easurement (mass/volume)Ordered By: Dr. Maldonado on 11-11-2022 Creatinine [Mass/Vol] 1.29 mg/dL 0.55-1.02 [facility] Comment on above: The validity of the calculated GFR & GFRAA in patients over 70 years has not been determined. Clinical correlation is essential. Serum or plasma urea nitroge n measurement (mass/volume)Ordered By: Dr. Maldonado on 11-11-2022 Urea nitrogen [Mass/Vol] 17 mg/dL 04-10 [facility] Squamous epithelial cells de tection in urine sediment by light microscopyOrdered By: Dr. Maldonado on 11-11-2022 Epithelial cells.squamous LM Ql (Urine sed) 0-5 SEEN /hpf 5-10 [facility] Thin prep Papanicolaou smear with manual screeningOrdered By: Dr. Maldonado on 11-11-2022 Thin prep Papanicolaou smear with manual screening 35 U/L 15-37 [facility] Thin prep Papanicolaou smear with manual screening 12 5-15 [facility] Urine blood detectionOrdered By: Dr. Maldonado on 11-11-2022 RBC Ql (U) 25 /ul Negative [facility] RBC Ql (U) 0-5 SEEN /hpf 0-5 [facility] Urine clarityOrdered By: Dr. Maldonado on 11-11-2022 Clarity (U) Sl. Cloudy Clear [facility] Urine color determinationOrd ered By: Dr. Maldonado on 11-11-2022 Color (U) Yellow Yellow [facility] Urine glucose detectionOrder ed By: Dr. Maldonado on 11-11-2022 Glucose Ql (U) Normal mg/dl Normal [facility] Urine leukocyte esterase det ection by dipstickOrdered By: Dr. Maldonado on 11-11-2022 Leukocyte esterase Test strip Ql (U) 25 /ul Negative [facility] Urine pHOrdered By: Dr. Gabriele pina on 11-11-2022 pH (U) 5.0 [pH] 5.0 - 8.0 [facility] Urine sediment bacteria coun t by microscopy (number/high power field)Ordered By: Dr. Maldonado on 11-11-2022 Bacteria LM.HPF (Urine sed) [#/Area] 0 /[HPF] None Seen [facility] Urine specific gravity measu rementOrdered By: Dr. Maldonado on 11-11-2022 Specific gravity (U) [Rel density] 1.025 1.002-1.03 0 [facility] Urobilinogen Auto test strip Ql (U)Ordered By: Dr. Maldonado on 11-11-2022 Urobilinogen Ql (U) 1 mg/dl Normal [facility] LABORATORYOrdered By: Latoya Zelaya on 06-27-2022 [...] Document Reviewed: 04/26/2015 ExitCare? Patient Information ?2016 [employer]. Normal [facility] ED Patient Summaryon 022 ED Patient Summary [facility] Emergency Department Discharge Instructions [address] [place] [address] \.br\(Patient Copy)\.br\ \.br\Name: MINDY ROSARIO III : 1960 \.br\Allergies: Vancomycin Hydrochloride; penicillins; erythromycin; Zoloft; Macrobid\.br\Diagnosis: Diagnoses This Visit\.br\ Chronic pain of right knee (M25.561)\.br\ Knee pain-swelling ([id number] -[id number])\.br\ Knee pain-swelling ([id number] -[id number])\.br\\.br\ \.br\ \.br\ Visit Date: 11/26/2021 12:28:26 \.br\ Current Date Time: 11/26/2021 13:50:25 \.br\Address: [address] [place] [id number] \.br\Phone: [phone] \.br\ \.br\Primary Care Provider: \.br\ Name: PRERNA LEMUS DO\.br\ \.br\ \.br\Emergency Department Care Providers: \.br\ Primary Physician: BROOKE ALBERT DO \.br\ \.br\ \.br\\.br\Thank you for choosing [facility] for your emergency care. You are very important to us. Our goal is to demonstrate our high quality medical care, and provide you with a very good patient experience.\.br\\.br\You may receive a survey about our service. Please take the time to complete the survey and return it so we can continue to enhance our service.\.br\\.br\Thank you again for allowing the [facility] Emergency Department to care for your medical needs. If you have questions about your care or follow up information please contact us at [phone].\.br\\.br\ Follow-Up Instructions\.br\ \.br\MINDY ROSARIO III has been given these follow-up instructions:\.br\\.br\\ .br\With: Address: When: \.br\PRERNA LEMUS [address] [place] [address]\.br\ Business (1) Within 3 to 5 days \.br\\.br\\.br\\.br\\.br \ Patient Education Materials\.br\ \.br\MINDY ROSARIO III Renee has been given the following patient education [...] Revised: 10/01/2015 Document Reviewed: 04/26/2015\.br\ExitCare? Patient Information ?2016 [employer].\.br\\.br\\.br\\.br\ \.br\ \.br\BEFORE YOU LEAVE\.br\\.br\Set up your [facility] [employer] account!\.br\ \.br\[employer] is a secure, online health management tool that connects you to portions of your hospital-ba (more content not included)... Normal [facility] ED Physician Reporton 2021 ED Physician Report Patient: MINDY ROSARIO III Age: 61 years Sex: Male [...] Surgical history: Left Heart Catheterization, left ventriculogram. ([id number]) on 11/03/2021 at 61 Years. Drug Eluting Stent- Coronary Artery. (C9600) on 11/03/2021 at 61 Years. Drug Eluting Stent- Coronary Artery. (C9600) on 05/01/2018 at 58 Years. Coronary Angiograms. ([id number]) on 05/01/2018 at 58 Years. Left Heart Catheterization, left ventriculogram. ([id number]) on 04/16/2018 at 58 Years. Percutaneous Coronary Angioplasty. ([id number]) on 04/16/2018 at 58 Years. Drug Eluting Stent- Coronary Artery. (C9600) on 04/16/2018 at 58 Years. Comments: 04/17/2018 9:40 RENATE CRUZ MD, YOSI PCI with 3 by 20mm Promus NEVAEH Laparoscopy, surgical, esophagogastric fundoplasty (eg, Gabriela, Toupet procedures) ([id number]) on 10/20/2015 at 55 Years. Comments: 10/20/2015 8:22 Monik Scott RN LAPAROSCOPIC GABRIELA FUNDOPLICATION HERNIA on 10/20/2015 at 55 Years. Comments: 11/01/2015 11:00 Dorothy Lovelace RN 2 WEEKS AGO esophagogastroduodenosco py(EGD). (00876) on 08/17/2015 at 55 Years. COLONOSCOPY AND BIOPSY (PT:59) in 2014 at 55 Years. Cholecystectomy; (33345). EGD. Wrist surgery. Comments: 07/27/2015 14:08 EST - Gianna WRIGHT, Soraida left cardiac stents.. Family history: Leukemia [...] pharyngeal regan (more content not included)... Normal [facility] ED Progress Noteon ED Progress Note pt to bred ra1 c/o r t knee pain x 2 weeks has had problems in past including scopes no specific injury pts orthopedic dr retired so does not have one 1349 Rx(s) given, verbalized understanding discharged pt in NAD, instructions given, verbalized understanding encouraged close f/u with dr or return for worsening Normal [facility] Cardiac Catheterization-Repo rton 11-03-2021 Cardiac Catheterization-Report Patient: MINDY ROSARIO III Age: 61 years Sex: Male : 1960 Associated Diagnoses: None Author: CARROLL GIORDANO, SHEN CARDIAC CATHETERIZATION REPORT HISTORY: Patient was in [...] elevated. Lungs: Clear. Cardiac: Normal. Abdomen: Normal. DIRECTOR OF CATEGORY MANAGEMENT: Normal. Extremities: Normal. EKG: NSR 92 bpm. Old inferior TN. FLUOROSCOPY: Stents are seen in LAD, circumflex and RCA including PDA PROCEDURE: The right radial area was prepared, draped, and anesthetized in the usual manner. A 6-Guatemalan sheath was inserted in the right radial artery. Then, 5000 units of heparin was given intravenously. 3 mg of verapamil was given intra-arterially. A 6-Guatemalan multipurpose A2 catheter was used. Left ventricular [...] wall hypo (more content not included)... Normal [facility] Inpatient Patient Summaryon 11-03-2021 Inpatient Patient Summary [facility] Discharge Instructions [address] [place] [address] \.br\(Patient Copy)\.br\ \.br\ \.br\Name: MINDY ROSARIO III : 1960 \.br\Diagnosis: \.br\ \.br\Allergies: Vancomycin Hydrochloride; penicillins; erythromycin; Zoloft; Macrobid\.br\ \.br\Registration Date: 11/03/21\.br\\.br\\.br\M RN: [id number] \.br\ Current Date Time: 11/03/2021 19:31:24 \.br\ \.br\Address: [address] [place] [address] \.br\Phone: [phone] \.br\ \.br\Primary Care Provider: \.br\Name: PRERNA LEMUS DO\.br\ \.br\ \.br\Thank you for choosing [facility] for your care. You are very important to us. Our goal is to demonstrate our high quality medical care and provide you with a very good patient experience.\.br\ You may receive a survey about our service. Please take the time to complete the survey and return it so we can continue to enhance our service.\.br\ Thank you again for allowing [facility] to care for your medical needs. If [...] any, will display below\.br\\.br\Cardiovas cular Lab Discharge Instructions\.br\[facility]\.br\Radial Cardiac Catheterization\.br\\.br \A catheter was inserted [...] provider.\.br\? Do (more content not included)... Normal [facility] Nursing Clinical Noteon 02-1 Nursing Clinical Note dangling at zayra poon no incident 1744 ambulating halls with no incident 1814 initiated removal of radial band instruction to call for assist OOB did not wait for assist to get into bathroom at bedside Normal [facility] POC Nahid 11-03-2021 POC ACT 261 seconds Normal [facility] Comment on above: Result Comment: The target value anticipated for sheath removal is less than or equal to 170 seconds or as indicated by the physician. Panic values are designated by the physician and are individualized to each patient. Performed By: #### C [id number] #### [facility] Laboratory Services [address] [phone] Weight Count Operator: Rojas Hernandez MD ED Discharge Educationon ED [...] irregular heartbeat. After you call 911, the centrifugal station operator may tell you to chew 1 [...] Where can you learn more? Go to https://[email or web address] et/patientEd Enter A120 in the search box to learn more about Chest Pain: Care Instructions. Current as of: November 19, 2019 Content Version: 12.7 ? [employer]. Care instructions adapted under license by your healthcare professional. If you have questions about a medical condition or this instruction, always ask your healthcare professional. [employer] disclaims any warranty or liability for your use of this information. Normal [facility] ED Patient Summaryon 022 ED Patient Summary [facility] Emergency Department Discharge Instructions [address] [place] [address] \.br\(Patient Copy)\.br\ \.br\Name: MINDY ROSARIO III : 1960 \.br\Allergies: Vancomycin Hydrochloride; penicillins; erythromycin; Zoloft; Macrobid\.br\Diagnosis: Diagnoses This Visit\.br\ Chest pain ([id number] -[id number])\.br\ Chest pain ([id number] -[id number])\.br\ Chest pain (R07.9)\.br\\.br\\.br\ \.br\ Visit Date: 09/26/2021 18:54:49 \.br\ Current Date Time: 09/26/2021 22:09:39 \.br\Address: [address] [facility] [address] \.br\ \.br\ \.br\Primary Care Provider: \.br\ Name: PRERNA LEMUS DO\.br\ \.br\ \.br\Emergency Department Care Providers: \.br\ Primary Physician: BROOKE ALBERT DO \.br\ \.br\ \.br\\.br\Thank you for choosing [facility] for your emergency care. You are very important to us. Our goal is to demonstrate our high quality medical care, and provide you with a very good patient experience.\.br\\.br\You may receive a survey about our service. Please take the time to complete the survey and return it so we can continue to enhance our service.\.br\\.br\Thank you again for allowing the [facility] Emergency Department to care for your medical needs. If you have questions about your care or follow up information please contact us at [phone].\.br\\.br\ Follow-Up Instructions\.br\ \.br\MINDY ROSARIO III has been given these follow-up instructions:\.br\\.br\\ .br\With: Address: When: \.br\YOSI CRUZ, Cardiology, Radiology [address] [facility], [place] [facility] [place] [place] [place] [address]\.br\[phone] Business (1) Within 3 to 5 days \.br\\.br\\.br\With: Address: When: \.br\PRERNA LEMUS [address] [place] [address]\.br\ Business (1) Within 3 to 5 days \.br\\.br\\.br\\.br\\.br \ Patient Education Materials\.br\ \.br\MINDY ROSARIO III has been given the following [...] or irregular heartbeat.\.br\After you call 911, the centrifugal station operator may tell you to chew 1 [...] pain. \.br\Where can you learn more?\.br\Go to https://[email or web address].n et/patientEd\.br\Enter A120 in the search box to learn more about Chest Pain: Care Instructions.\.br\Rashaun king as of: November 19, 2019 Content Version: 12.7\.br\? [employer], [employer]. \.br\Care instructions adapted under license by your healthcare professional. If you have questions about a medical condition or this instruction, always ask your healthcare professional. [employer], [employer] (more content not included)... Normal [facility] ED Physician Reporton 2021 ED Physician Report Patient: MINDY ROSARIO III Age: 61 years Sex: Male [...] Line Saline Flush: 3 mL, IV Push, [id number] Prescriptions Prescribed TriCor: 145 mg, ORAL, DAILY [...] on 05/01/2018 at 58 Years. Coronary Angiograms. (08723) on 05/01/2018 at 58 Years. Left Heart Catheterization, left ventriculogram. (72091) on 04/16/2018 at 58 Years. Percutaneous Coronary Angioplasty. (48216) on 04/16/2018 at 58 Years. Drug Eluting Stent- Coronary Artery. (C9600) on 04/16/2018 at 58 Years. Comments: 04/17/2018 9:40 RENATE CRUZ MD, YOSI PCI with 3 by 20mm Promus NEVAEH Laparoscopy, surgical, esophagogastric fundoplasty (eg, Gabriela, Toupet procedures) (00717) on 10/20/2015 at 55 Years. Comments: 10/20/2015 8:22 Monik Scott RN LAPAROSCOPIC GABRIELA FUNDOPLICATION HERNIA on 10/20/2015 at 55 Years. Comments: 11/01/2015 11:00 ALFONZO Cherry RN, Dorothy 2 WEEKS AGO esophagogastroduodenosco py(EGD). (85066) on 08/17/2015 at 55 Years. COLONOSCOPY AND BIOPSY (PT:59) in 2015 at 55 Years. Cholecystectomy; (05068). EGD. Wrist surgery. Comments: 07/27/2015 14:08 EST - Soraida Katz MA left cardiac stents.. Family history: Leukemia [...] Rate Monitor (more content not included)... Normal [facility] ED Progress Noteon ED Progress Note Pt presents to ED fr om home w/ c/o CP this AM. Pt has hx of TN and stents in the past. EKG done, IV placed and labs drawn. VSS and RR unlabored. Pt ambulated to DC w/ steady gait. VSS and RR unlabored. IV removed w/o incident. DC instructions and f/u recommendations given to pt who states understanding. All questions answered prior to DC. Normal [facility] AUTO DIFFon 09-26-2021 Baso Count 0.10 x1000 Normal 0.00-0.20 [facility] Comment on above: Performed By: #### 9 [id number] #### [facility] Laboratory Services [address] [place] [address] Weight Count Operator: Rojas Hernandez MD Basos % 1.4 % Normal [facility] Comment on above: Performed By: #### 9 [id number] #### [facility] Laboratory Services [address] [place] [address] Weight Count Operator: Rojas Hernandez MD Eos Count 0.10 x1000 Normal 0.00-0.50 [facility] Comment on above: Performed By: #### 9 [id number] #### [facility] Services [address] [place] [address] Weight Count Operator: Rojas Hernandez MD Eosinophils/100 WBC (Bld) 1.3 % Normal [facility] Comment on above: Performed By: #### 9 [id number] #### [facility] Services [address] [place] [address] Weight Count Operator: Rojas Hernandez MD Lymph Count 1.20 x1000 Normal 1.20-4.80 [facility] Comment on above: Performed By: #### 9 [id number] #### [facility] Laboratory Services [address] [place] [address] Weight Count Operator: Rojas Hernandez MD Lymphocytes/100 WBC (Bld) 13.8 % Normal [facility] Comment on above: Performed By: #### 9 [id number] #### [facility] [address] [place] [address] Weight Count Operator: Rojas Hernandez MD Navajo Count 0.70 x1000 Normal 0.10-1.00 [facility] Comment on above: Performed By: #### 9 [id number] #### [facility] [address] [place] [address] Weight Count Operator: Rojas Hernandez MD Monocytes/100 WBC (Bld) 8.0 % Normal [place] Comment on above: Performed By: #### 9 [id number] #### [facility] [address] [place] [address] Weight Count Operator: Rojas Hernandez MD Neutrophil Count (ANC) 6.40 x1000 Normal 1.40-8.80 [facility] Comment on above: Performed By: #### 9 [id number] #### [facility] [address] [place] [address] Weight Count Operator: Rojas Hernandez MD Neutrophils/100 WBC (Bld) 75.5 % Normal [facility] Comment on above: Performed By: #### 9 [id number] #### [facility] Laboratory Services [address] [place] [address] Weight Count Operator: Rojas Hernandez MD Red Blood Cell Morphology See Notes Abnormal [facility] Comment on above: Result Comment: Anis ocytosis 1+ Performed By: #### 9 [id number] #### [facility] Laboratory Services [address] [place] [address] Weight Count Operator: Rojas Hernandez MD COMPMETAon 09-26-2021 GFR Estimated 85 Normal [facility] Comment on above: Result Comment: The GFR is calculated and is Age, Sex, and Race adjusted. Performed By: #### 9 [id number] #### [facility] Laboratory Services [address] [place] [address] Weight Count Operator: Rojas Hernandez MD Albumin [Mass/Vol] 3.7 g/dL Normal 3.4-5.0 [facility] Comment on above: Performed By: #### 9 [id number] #### [facility] Laboratory Services [address] [place] [address] Weight Count Operator: Rojas Hernandez MD Albumin/Globulin [Mass ratio] 1.2 {ratio} Normal [facility] Comment on above: Performed By: #### 9 [id number] #### [facility] Laboratory Services [address] [place] [address] Weight Count Operator: Rojas Hernandez MD Alk Phos 91 unit/L Normal 45-117 [facility] Comment on above: Performed By: #### 9 [id number] #### [facility] Laboratory Services [address] [place] [address] Weight Count Operator: Rojas Hernandez MD Bilirubin [Mass/Vol] 0.30 mg/dL Normal 0.20-1.00 [facility] Comment on above: Result Comment: Use of this assay is not recommended for patients undergoing treatment with eltrombopag due to the potential for falsely elevated results. Performed By: #### 9 [id number] #### [facility] Laboratory Services [address] [place] [address] Weight Count Operator: Rojas Hernandez MD Calcium [Mass/Vol] 8.8 mg/dL Normal 8.5-10.5 [facility] Comment on above: Performed By: #### 9 [id number] #### [facility] Laboratory Services [address] [place] [address] Weight Count Operator: Rojas Hernandez MD Chloride [Moles/Vol] 103 mmol/L Normal 100-109 [facility] Comment on above: Performed By: #### 9 [id number] #### [facility] Laboratory Services [address] [place] [address] Weight Count Operator: Rojas Hernandez MD CO2 [Moles/Vol] 23.7 mmol/L Normal 21.0-32.0 [facility] Comment on above: Performed By: #### 9 [id number] #### [facility] Laboratory Services [address] [place] [address] Weight Count Operator: Rojas Hernandez MD Creatinine [Mass/Vol] 0.9 mg/dL Normal 0.7-1.[address] [facility] Comment on above: Performed By: #### 9 [id number] #### [facility] Laboratory Services [address] [place], [place] [phone] Weight Count Operator: Rojas Hernandez MD Globulin (S) [Mass/Vol] 3.2 g/dL Normal [facility] Comment on above: Performed By: #### 9 [id number] #### [facility] Laboratory Services [address] [place] [address] Weight Count Operator: Rojas Hernandez MD Glucose [Mass/Vol] 171 mg/dL High 72-100 [facility] Comment on above: Result Comment: Monica puncture should occur prior to sulfasalazine administration due to the potential for falsely depressed results. Venipuncture should occur prior to sulfapyridine administration due to the potential falsely elevated results. Baseline assay values before administration of sulfasalazine and sulfapyridine therapy would not be affected. Performed By: #### 9 [id number] #### [facility] Laboratory Services [address] [place] [address] Weight Count Operator: Rojas Hernandez MD GOT 20 unit/L Normal 15-37 [facility] Comment on above: Result Comment: Monica puncture should occur prior to sulfasalazine administration due to the potential for falsely depressed results. Baseline assay values before administration of sulfasalazine and sulfapyridine therapy would not be affected. Performed By: #### 9 [id number] #### [facility] Laboratory Services [address] [place] [address] Weight Count Operator: Rojas Hernandez MD GPT 28 unit/L Normal 16-63 [facility] Comment on above: Result Comment: Monica puncture should occur prior to sulfasalazine administration due to the potential for falsely depressed results. Baseline assay values before administration of sulfasalazine and sulfapyridine therapy would not be affected. Performed By: #### 9 [id number] #### [facility] Laboratory Services [address] [place] [address] Weight Count Operator: Rojas Hernandez MD Osmolality [Osmolality] 282 mosm/kg Normal 275-295 [facility] Comment on above: Performed By: #### 9 [id number] #### [facility] Laboratory Services [address] [place] [address] Weight Count Operator: Rojas Hernandez MD Potassium [Moles/Vol] 4.0 mmol/L Normal 3.5-5.[address] [facility] Comment on above: Performed By: #### 9 [id number] #### [facility] Laboratory Services [address] [place] [address] Weight Count Operator: Rojas Hernandez MD Protein [Mass/Vol] 6.9 g/dL Normal 6.0-8.5 [facility] Comment on above: Performed By: #### 9 [id number] #### [facility] Laboratory Services [facility] [place] [address] Weight Count Operator: Rojas Hernandez MD Sodium [Moles/Vol] 139 mmol/L Normal 135-145 [facility] Comment on above: Performed By: #### 9 [id number] #### [facility] Laboratory Services [address] [place] [address] Weight Count Operator: Rojas Hernandez MD Urea nitrogen [Mass/Vol] 13 mg/dL Normal 10-20 [facility] Comment on above: Performed By: #### 9 [id number] #### [facility] Laboratory Services [address] [place] [address] Weight Count Operator: Rojas Hernandez MD Urea nitrogen/Creatinine [Mass ratio] 14.4 mg/mg Normal [facility] Comment on above: Performed By: #### 9 [id number] #### [facility] Laboratory Services [address] [place] [address] Weight Count Operator: Rojas Hernandez MD HEMOon 09-26-2021 DIFF? No Normal [facility] Comment on above: Performed By: #### 9 [id number] #### [facility] Laboratory Services [address] [place] [address] Weight Count Operator: Rojas Hernandez MD Erythrocyte distribution width (RBC) [Ratio] 17.1 % High 11.5-14.5 [facility] Comment on above: Performed By: #### 9 [id number] #### [facility] Laboratory Services [address] [place] [address] Weight Count Operator: Rojas Hernandez MD Hematocrit (Bld) [Volume fraction] 38.2 % Low 41.0-52.0 [facility] Comment on above: Performed By: #### 9 [id number] #### [facility] Laboratory Services [address] [place] [address] Weight Count Operator: Rojas Hernandez MD Hemoglobin (Bld) [Mass/Vol] 12.4 g/dL Low 13.5-17.5 [facility] Comment on above: Performed By: #### 9 [id number] #### [facility] Laboratory Services [address] [place] [address] Weight Count Operator: Rojas Hernandez MD Instr WBC 8.4 Normal [facility] Comment on above: Performed By: #### 9 [id number] #### [facility] Laboratory Services [address] [place] [address] Weight Count Operator: Rojas Hernandez MD MCH (RBC) [Entitic mass] 26.2 pg Low 27.0-34.0 [facility] Comment on above: Performed By: #### 9 [id number] #### [facility] Laboratory Services [address] [place] [address] Weight Count Operator: Rojas Hernandez MD MCHC (RBC) [Mass/Vol] 32.5 g/dL Normal 32.0-37.[address] [facility] Comment on above: Performed By: #### 9 [id number] #### [facility] Laboratory Services [address] [place] [address] Weight Count Operator: Rojas Hernandez MD MCV (RBC) [Entitic vol] 80.6 fL Normal 80.0-100.0 [facility] Comment on above: Performed By: #### 9 [id number] #### [facility] Laboratory Services [address] [place] [address] Weight Count Operator: Rojas Hernandez MD Nucleated RBC 0 /100WBC Normal [facility] Comment on above: Performed By: #### 9 [id number] #### [facility] Laboratory Services [address] [place] [address] Weight Count Operator: Rojas Hernandez MD Platelet 326 x1000 Normal 150-450 [facility] Comment on above: Performed By: #### 9 [id number] #### [facility] Services [address] [place] [address] Weight Count Operator: Rojas Hernandez MD Platelet mean volume (Bld) [Entitic vol] 8.0 fL Normal 7.4-10.4 [facility] Comment on above: Performed By: #### 9 [id number] #### [facility] Services [address] [place] [address] Weight Count Operator: Rojas Hernandez MD RBC 4.74 x10 Normal 4.70-6.10 [facility] Comment on above: Result Comment: Note : RBC morphology is normal unless otherwise stated. Evaluation performed only if differential is requested. Performed By: #### 9 [id number] #### [facility] Services [address] [place] [address] Weight Count Operator: Rojas Hernandez MD WBC 8.4 x10 Normal 4.5-11.0 [facility] Comment on above: Performed By: #### 9 [id number] #### [facility] [address] [place] [address] Weight Count Operator: Rojas Hernandez MD TROPONIN HS 0HRon 09-26-2021 Troponin HS 0 Hr 13 pg/mL Normal 3-78 [facility] Comment on above: Performed By: #### 9 [id number] #### [facility] Services [address] [place] [address] Weight Count Operator: Rojas Hernandez MD TROPONIN HS 2HRon 09-26-2021 Delta Troponin 2 Hr 1 pg/mL Normal 0-14 [facility] Comment on above: Result Comment: The term acute myocardial infarction should be used when there is acute myocardial injury with clinical evidence of acute myocardial ischemia and the rise or fall of serial Troponin HS values (delta troponin) greater than or equal to 15 pg/mL with at least one Troponin HS value above the 99th percentile reference range Performed By: #### 9 [id number] #### [facility] [address] [place] [address] Weight Count Operator: Rojas Hernandez MD Troponin HS 2 Hr 14 pg/mL Normal 3-78 [facility] Comment on above: Performed By: #### 9 [id number] #### [facility] Services [address] [place] [address] Weight Count Operator: Rojas Hernandez MD XR CHEST PORTABLEon 09-26-19 XR CHEST PORTABLE EXAM DESCRIPTION: Site: XR CHEST PORTABLE RP: XR CHEST 1 VIEW CLINICAL HISTORY: 61 years Male; CHEST PAIN; WHAT SYMPTOMS ARE YOU EXPERIENCING? - C/O ONSET OF LEFT SIDE UPPER CHEST PAIN THIS AM, HX TN AND 6 STENTS IN 2018 COMPARISON: 01/07/2021 FINDINGS: Lungs: Lungs are clear, with no focal infiltrate, pneumothorax, or pleural effusion. Mediastinum: Mediastinum is within normal limits for this positioning. Bones: Bony structures are unremarkable. IMPRESSION: 1. No acute pulmonary findings. Electronically signed by: Celso Rizzo MD 09/26/2021 7:06 PM [facility] Technologist: Dictated By: VERONICA RIZZO MD Signed By: VERONICA RIZZO MD Signed Out: 09/26/21 20:06:18 Normal [facility] ED Physician Reporton 2020 ED Physician Report Patient: MINDY ROSARIO III Age: 61 years Sex: Male [...] on 05/01/2018 at 58 Years. Coronary Angiograms. (43857) on 05/01/2018 at 58 Years. Left Heart Catheterization, left ventriculogram. (44373) on 04/16/2018 at 58 Years. Percutaneous Coronary Angioplasty. (89828) on 04/16/2018 at 58 Years. Drug Eluting Stent- Coronary Artery. (C9600) on 04/16/2018 at 58 Years. Comments: 04/17/2018 9:40 DAVINAT - NANCY GIORDANO, YOSI PCI with 3 by 20mm Promus NEVAEH Laparoscopy, surgical, esophagogastric fundoplasty (eg, Gabriela, Toupet procedures) (98927) on 10/20/2015 at 55 Years. Comments: 10/20/2015 8:22 Monik Scott RN LAPAROSCOPIC GABRIELA FUNDOPLICATION HERNIA on 10/20/2015 at 55 Years. Comments: 11/01/2015 11:00 Dorothy Lovelace RN 2 WEEKS AGO esophagogastroduodenosco py(EGD). (18576) on 08/17/2015 at 55 Years. COLONOSCOPY AND BIOPSY (PT:59) in 2015 at 55 Years. Cholecystectomy; (37361). EGD. Wrist surgery. Comments: 07/27/2015 14:08 Soraida [...] Warm, dry. (more content not included)... Normal [facility] AUTO DIFFon 07-11-2021 Baso Count 0.10 x1000 Normal 0.00-0.20 [facility] Comment on above: Performed By: #### 1 [id number] #### [facility] [address] [place], [place] [id number] Weight Count Operator: Rojas Hernandez MD Basos % 1.0 % Normal [facility] Comment on above: Performed By: #### 1 42170 #### [facility] [address] [place], [place] [address] Weight Count Operator: Rojas Hernandez MD Eos Count 0.20 x1000 Normal 0.00-0.50 [facility] Comment on above: Performed By: #### 1 87698 #### [facility] [address] [place] [address] Weight Count Operator: Rojas Hernandez MD Eosinophils/100 WBC (Bld) 1.7 % Normal [facility] Comment on above: Performed By: #### 1 42003 #### [facility] [address] [place], [place] [address] Weight Count Operator: Rojas Hernandez MD Lymph Count 1.60 x1000 Normal 1.20-4.80 [facility] Comment on above: Performed By: #### 1 51319 #### [facility] [address] [place], [place] [address] Weight Count Operator: Rojas Hernandez MD Lymphocytes/100 WBC (Bld) 16.6 % Normal [facility] Comment on above: Performed By: #### 1 79423 #### [facility] [address] [place], [place] [address] Weight Count Operator: Rojas Hernandez MD Navajo Count 0.80 x1000 Normal 0.10-1.00 [facility] Comment on above: Performed By: #### 1 67034 #### [facility] [address] [place] [address] Weight Count Operator: Rojas Hernandez MD Monocytes/100 WBC (Bld) 8.5 % Normal [facility] Comment on above: Performed By: #### 1 18325 #### [facility] [address] [place] [address] Weight Count Operator: Rojas Hernandez MD Neutrophil Count (ANC) 7.10 x1000 Normal 1.40-8.80 [facility] Comment on above: Performed By: #### 1 06923 #### [facility] [address] [place] [address] Weight Count Operator: Rojas Hernandez MD Neutrophils/100 WBC (Bld) 72.2 % Normal [facility] Comment on above: Performed By: #### 1 27917 #### [facility] [address] [place] [address] Weight Count Operator: Rojas Hernandez MD Red Blood Cell Morphology See Notes Abnormal [facility] Comment on above: Result Comment: Anis ocytosis 1+ Performed By: #### 1 14558 #### [facility] [address] [place] [address] Weight Count Operator: Rojas Hernandez MD COMPMETAon 07-11-2021 GFR Estimated 75 Normal [facility] Comment on above: Result Comment: The GFR is calculated and is Age, Sex, and Race adjusted. Performed By: #### 1 18856 #### [facility] [address] [place] [address] Weight Count Operator: Rojas Hernandez MD Albumin [Mass/Vol] 4.2 g/dL Normal 3.4-5.0 [facility] Comment on above: Performed By: #### 1 04569 #### [facility] [address] [place] [address] 24989 Weight Count Operator: Rojas Hernandez MD Albumin/Globulin [Mass ratio] 1.4 {ratio} Normal [facility] Comment on above: Performed By: #### 1 60896 #### [facility] [address] [place] [address] 24219 Weight Count Operator: Rojas Hernandez MD Alk Phos 97 unit/L Normal 45-117 [facility] Comment on above: Performed By: #### 1 93755 #### [facility] [address] [place] [address]40 Weight Count Operator: Rojas Hernandez MD Bilirubin [Mass/Vol] 0.40 mg/dL Normal 0.20-1.00 [facility] Comment on above: Result Comment: Use of this assay is not recommended for patients undergoing treatment with eltrombopag due to the potential for falsely elevated results. Performed By: #### 1 97409 #### [facility] [address] [place] [address] 020[address] Weight Count Operator: Rojas Hernandez MD Calcium [Mass/Vol] 9.7 mg/dL Normal 8.5-10.5 [facility] Comment on above: Performed By: #### 1 56027 #### [facility] [address] [place] [address] 01906 Weight Count Operator: Rojas Hernandez MD Chloride [Moles/Vol] 99 mmol/L Low 100-109 [facility] Comment on above: Performed By: #### 1 28224 #### [facility] [address] [place] [address] Weight Count Operator: Rojas Hernandez MD CO2 [Moles/Vol] 22.8 mmol/L Normal 21.0-32.0 [facility] Comment on above: Performed By: #### 1 57679 #### [facility] [address] [place] [address]247 Weight Count Operator: Rojas Hernandez MD Creatinine [Mass/Vol] 1.0 mg/dL Normal 0.7-1.[address] [facility] Comment on above: Performed By: #### 1 86098 #### [facility] [address] [place] [address] Weight Count Operator: Rojas Hernandez MD Globulin (S) [Mass/Vol] 3.1 g/dL Normal [facility] Comment on above: Performed By: #### 1 63148 #### [facility] [address] [place] [address] 13701 Weight Count Operator: Rojas Hernandez MD Glucose [Mass/Vol] 95 mg/dL Normal 72-100 [facility] Comment on above: Result Comment: Monica puncture should occur prior to sulfasalazine administration due to the potential for falsely depressed results. Venipuncture should occur prior to sulfapyridine administration due to the potential falsely elevated results. Baseline assay values before administration of sulfasalazine and sulfapyridine therapy would not be affected. Performed By: #### 1 21092 #### [facility] [place] [id number] Weight Count Operator: Rojas Hernandez MD GOT 22 unit/L Normal 15-37 [facility] Comment on above: Result Comment: Monica puncture should occur prior to sulfasalazine administration due to the potential for falsely depressed results. Baseline assay values before administration of sulfasalazine and sulfapyridine therapy would not be affected. Performed By: #### 1 28467 #### [facility] [address] [address] Weight Count Operator: Rojas Hernandez MD GPT 33 unit/L Normal 16-63 [facility] Comment on above: Result Comment: Monica puncture should occur prior to sulfasalazine administration due to the potential for falsely depressed results. Baseline assay values before administration of sulfasalazine and sulfapyridine therapy would not be affected. Performed By: #### 1 74081 #### [facility] [address] [place] [address] 07971 Weight Count Operator: Rojas Hernandez MD Osmolality [Osmolality] 266 mosm/kg Low 275-295 [facility] Comment on above: Performed By: #### 1 42235 #### [facility] [address] [place] [address] Weight Count Operator: Rojas Hernandez MD Potassium [Moles/Vol] 4.4 mmol/L Normal 3.5-5.[address] [facility] Comment on above: Performed By: #### 1 42784 #### [facility] [address] [place] [address] Weight Count Operator: Rojas Hernandez MD Protein [Mass/Vol] 7.3 g/dL Normal 6.0-8.5 [facility] Comment on above: Performed By: #### 1 55434 #### [facility] [address] [place] [address] Weight Count Operator: Rojas Hernandez MD Sodium [Moles/Vol] 132 mmol/L Low 135-145 [facility] Comment on above: Performed By: #### 1 15607 #### [facility] [address] [place] [address] 48912 Weight Count Operator: Rojas Hernandez MD Urea nitrogen [Mass/Vol] 16 mg/dL Normal 10-20 [facility] Comment on above: Performed By: #### 1 62533 #### [facility] [address] [place] [address] 8[address]81 Weight Count Operator: Rojas Hernandez MD Urea nitrogen/Creatinine [Mass ratio] 16.0 mg/mg Normal [facility] Comment on above: Performed By: #### 1 38047 #### [facility] [address] [place] [address] Weight Count Operator: Rojas Hernandez MD CT ABD PELVIS WO [...] Rizzo MD 07/11/2021 5:50 PM CDT Technologist: LSDaisy Dictated By: VERONICA RIZZO MD Signed By: VERONICA RIZZO MD Signed Out: 07/11/21 18:50:51 Normal [facility] ED Discharge Educationon ED Discharge Education Gastrointestinal [...] Where can you learn more? Go to [email or web address] Enter E907 in the search box to learn more about Abdominal Pain: Care Instructions. Current as of: November 19, 2019 Content Version: 12.7 ? [employer]. Care instructions adapted under license by your healthcare professional. If you have questions about a medical condition or this instruction, always ask your healthcare professional. [employer] disclaims any warranty or liability for your use of this information. Normal [facility] ED Patient Summaryon 021 ED Patient Summary [facility] Emergency Department Discharge Instructions [facility] [place] [address] \.br\(Patient Copy)\.br\ \.br\Name: MINDY ROSARIO III : 1960 \.br\Allergies: Vancomycin Hydrochloride; penicillins; erythromycin; Zoloft; Macrobid\.br\Diagnosis: Diagnoses This Visit\.br\ Cyst of left kidney (N28.1)\.br\ Flank pain ([id number])\.br\ Renal colic on left side (N23)\.br\\.br\\.br\ \.br\ Visit Date: 07/11/2021 16:36:09 \.br\ Current Date Time: 07/11/2021 19:48:35 \.br\Address: [address] [place] [address] \.br\ \.br\ \.br\Primary Care Provider: \.br\ Name: PRERNA LEMUS DO\.br\ \.br\ \.br\Emergency Department Care Providers: \.br\ Primary Physician: BROOKE ALBERT DO \.br\ \.br\ \.br\\.br\Thank you for choosing [facility] for your emergency care. You are very important to us. Our goal is to demonstrate our high quality medical care, and provide you with a very good patient experience.\.br\\.br\You may receive a survey about our service. Please take the time to complete the survey and return it so we can continue to enhance our service.\.br\\.br\Thank you again for allowing the [facility] Emergency Department to care for your medical needs. If you have questions about your care or follow up information please contact us at [phone].\.br\\.br\ Follow-Up Instructions\.br\ \.br\MINDY ROSARIO III has been given these follow-up instructions:\.br\\.br\\ .br\With: Address: When: \.br\JAYE WONG, Urology [address] [place] [address]\.br\ Business (1) Within 3 to 5 days \.br\\.br\\.br\With: Address: When: \.br\PRERNA LEMUS [address] [place] [address]\.br\ Business (1) Within 3 to 5 days \.br\\.br\\.br\\.br\\.br \ Patient Education Materials\.br\ \.br\FILI RAYMUNDO MINDY Duran has been given the following patient [...] than usual.\.br\ (more content not included)... Normal [facility] ED Progress Noteon ED Progress Note 1637 [facility] triage for left flank pain. denies fever and chills. patient medicated. patient updated on plan of care. report given to carmen null rn. 1905 - Pt care assumed from Yohana DEL ROSARIO 1914 - Pt requesting pain medication. Dr. Albert aware 1935 - Dr. Albert at bedside to update pt. IV removed. Pt given prescription and discharge instructions and verbalizes understanding with no further questions Normal [facility] HEMOon 07-11-2021 DIFF? No Normal [facility] Comment on above: Performed By: #### 9 [id number] #### [facility] Services [address] [place] [address]14 Weight Count Operator: Rojas Hernandez MD Erythrocyte distribution width (RBC) [Ratio] 17.4 % High 11.5-14.5 [facility] Comment on above: Performed By: #### 9 [id number] #### [facility] [address] [place] [address]36 Weight Count Operator: Rojas Hernandez MD Hematocrit (Bld) [Volume fraction] 43.5 % Normal 41.0-52.0 [facility] Comment on above: Performed By: #### 9 [id number] #### [facility] Services [address] [place], [place] [address] Weight Count Operator: Rojas Hernandez MD Hemoglobin (Bld) [Mass/Vol] 14.3 g/dL Normal 13.5-17.5 [facility] Comment on above: Performed By: #### 9 [id number] #### [facility] [address] [place] [address]77 Weight Count Operator: Rojas Hernandez MD Instr WBC 9.8 Normal [facility] Comment on above: Performed By: #### 9 956129 #### [facility] [address] [place] [address] 7[address]34 Weight Count Operator: Rojas Hernandez MD MCH (RBC) [Entitic mass] 26.3 pg Low 27.0-34.0 [facility] Comment on above: Performed By: #### 9 081895 #### [facility] [address] [place] [address]228 Weight Count Operator: Rojas Hernandez MD MCHC (RBC) [Mass/Vol] 32.9 g/dL Normal 32.0-37.[address] [facility] Comment on above: Performed By: #### 9 [id number] #### [facility] Services [address] [place] [address] Weight Count Operator: Rojas Hernandez MD MCV (RBC) [Entitic vol] 79.9 fL Low 80.0-100.0 [facility] Comment on above: Performed By: #### 9 [id number] #### [facility] [address] [place] [address] 9[address] Weight Count Operator: Rojas Hernandez MD Nucleated RBC 0 /100WBC Normal [facility] Comment on above: Performed By: #### 9 [id number] #### [facility] [address] [place] [address] Weight Count Operator: Rojas Hernandez MD Platelet 327 x1000 Normal 150-450 [facility] Comment on above: Performed By: #### 9 [id number] #### [facility] Laboratory [address] [address] Weight Count Operator: Rojas Hernandez MD Platelet mean volume (Bld) [Entitic vol] 8.6 fL Normal 7.4-10.4 [facility] Comment on above: Performed By: #### 9 [id number] #### [facility] [address] [place] [address]175 Weight Count Operator: Rojas Hernandez MD RBC 5.44 x10 Normal 4.70-6.10 [facility] Comment on above: Result Comment: Note : RBC morphology is normal unless otherwise stated. Evaluation performed only if differential is requested. Performed By: #### 9 [id number] #### [facility] [address] [place] [address]329 Weight Count Operator: Rojas Hernandez MD WBC 9.8 x10 Normal 4.5-11.0 [facility] Comment on above: Performed By: #### 9 [id number] #### [facility] [address] [place] [address]757 Weight Count Operator: Rojas Hernandez MD UAon 07-11-2021 Bacteria, U Occasional Normal [facility] Comment on above: Performed By: #### 1 28490 #### [facility] [address] [place] [address] Weight Count Operator: Rojas Hernandez MD RBC/HPF, U <1 Normal 0-3 [facility] Comment on above: Performed By: #### 1 57356 #### [facility] [address] [place] [address] 97702 Weight Count Operator: Rojas Hernandez MD Squamous Epithelial Cells, U <1 Normal [facility] Comment on above: Performed By: #### 1 36889 #### [facility] [address] [place] [address]17 Weight Count Operator: Rojas Hernandez MD U MICRO Indicated Normal [facility] Comment on above: Performed By: #### 1 49663 #### [facility] [address] [place] [address]74 Weight Count Operator: Rojas Hernandez MD Appearance, U Clear Normal [facility] Comment on above: Performed By: #### 1 50489 #### [facility] [address] [place] [address] Weight Count Operator: Rojas Hernandez MD Bilirubin, U Negative Normal Negative [facility] Comment on above: Performed By: #### 1 23349 #### [facility] [address] [place] [address] 97[address] Weight Count Operator: Rojas Hernandez MD Blood, U Small Abnormal Negative [facility] Comment on above: Performed By: #### 1 79886 #### [facility] [address] [place] [address]197 Weight Count Operator: Rojas Hernandez MD Color, U Yellow Normal [facility] Comment on above: Performed By: #### 1 43449 #### [facility] [address] [place] [address] 25673 Weight Count Operator: Rojas Hernandez MD Glucose Qual, U Negative Normal Negative [facility] Comment on above: Performed By: #### 1 44151 #### [facility] [address] [place] [address] 747[address] Weight Count Operator: Rojas Hernandez MD Ketones, U Negative Normal Negative [facility] Comment on above: Performed By: #### 1 32570 #### [facility] [address] [place] [address] 62667 Weight Count Operator: Rojas Hernandez MD Leukocyte Esterase, U Negative Normal Negative [facility] Comment on above: Performed By: #### 1 45811 #### [facility] [address] [place] [address] Weight Count Operator: Rojas Hernandez MD Nitrite, U Negative Normal Negative [facility] Comment on above: Performed By: #### 1 30283 #### [facility] Services [address] [place], [place] [address] Weight Count Operator: Rojas Hernandez MD pH, U 5.5 Normal 4.5-8.0 [facility] Comment on above: Performed By: #### 1 82961 #### [facility] Services [address] [place], [place] [address] Weight Count Operator: Rojas Hernandez MD Protein, U Negative Normal Negative [facility] Comment on above: Performed By: #### 1 31460 #### [facility] Services [address] [place], [place] [address] Weight Count Operator: Rojas Hernandez MD Specific [place], U 1.015 Normal 1.001-1. 03 5 [facility] Comment on above: Performed By: #### 1 83349 #### [facility] Services [address] [place] [address] Weight Count Operator: Rojas Hernandez MD Urobilinogen Qual, U 0.2 EU/dl Normal 0.1-1.0 mg/dl [facility] Comment on above: Result Comment: EU/d l and mg/dl are equivalent units. Performed By: #### 1 81370 #### [facility] [address] [place] [address] Weight Count Operator: Rojas Hernandez MD ED Discharge Educationon ED [...] 06/06/2006 Document Revised: 02/15/2017 Document Reviewed: 04/26/2015 [employer] Patient Education ? 2018 [employer]. Cardiovascular Palpitations: Care Instructions Your Care Instructions [...] have symptoms (more content not included)... Normal [facility] ED Physician Reporton 2020 ED Physician Report Patient: MINDY ROSARIO III Age: 60 years Sex: Male [...] on 05/01/2018 at 58 Years. Coronary Angiograms. (37620) on 05/01/2018 at 58 Years. Left Heart Catheterization, left ventriculogram. (01956) on 04/16/2018 at 58 Years. Percutaneous Coronary Angioplasty. (75526) on 04/16/2018 at 58 Years. Drug Eluting Stent- Coronary Artery. (C9600) on 04/16/2018 at 58 Years. Comments: 04/17/2018 9:40 RENATE CRUZ MD, YOSI PCI with 3 by 20mm Promus NEVAEH Laparoscopy, surgical, esophagogastric fundoplasty (eg, Gabriela, Toupet procedures) ([id number]) on 10/20/2015 at 55 Years. Comments: 10/20/2015 8:22 Monik Scott RN LAPAROSCOPIC GABRIELA FUNDOPLICATION HERNIA on 10/20/2015 at 55 Years. Comments: 11/01/2015 11:00 Dorothy Lovelace RN 2 WEEKS AGO esophagogastroduodenosco py(EGD). ([id number]) on 08/17/2015 at 55 Years. COLONOSCOPY AND BIOPSY (PT:59) in 2015 at 55 Years. Cholecystectomy; (76698). EGD. Wrist surgery. Comments: 07/27/2015 14:08 Soraida [...] Hypercholesteremia Hypomagnesemia Insomnia Low vitamin B12 level TN (myocardial infarction) Nausea Nausea and vomiting Physical exam RULE OUT Clostridium difficile diarrhea Seizure Sleep apnea Status post laparoscopic Gabriela fundoplication . Physical Examination General: Alert, no acute distress. Vital Signs Skin: Warm, dry, no rash. Head: Normocephalic, atraumatic. Neck: Supple, trachea midline. Eye: Normal conjunctiva, vision unchanged. Ears, nose, mouth and throat: (more content not included)... Normal [facility] ED Progress Noteon 1 ED Progress Note WALKED INTO ED TODAY WITH . STATES HEART PALPITATIONS FOR THE PAST SEVERAL DAYS. HAS HX TN IN THE PAST WITH SEVERAL STENTS. STATES OCCASIONAL TWINGES OF CHEST DISCOMFORT WHEN HE FEELS THE PALPITATIONS. DENIES CP AT THIS TIME. DR ZHU IN ROOM TO EXAMINE. REPORT GIVEN TO Cecily [facility] RECIEVED, NOTIFIED. 1930 PT [...] steady gait out to private vehicle. Normal [facility] LIPID PNLon 01-08-2021 Calculated LDL Cholesterol 87 mg/dL Normal 60-130 [facility] Comment on above: Result Comment: <100 mg/dl Optimal 100-129 mg/dl Near Optimal 130-159 mg/dl Borderline High 160-189 mg/dl High >=190 mg/dl Very High Performed By: #### 1 [id number] #### [facility] [address] [place] [address] 52382 Weight Count Operator: Rojas Hernandez MD Total Chol/HDL Chol Ratio 3.5 Normal [facility] Comment on above: Performed By: #### 1 [id number] #### [facility] [address] [place] [address] 62955 Weight Count Operator: Rojas Hernandez MD Cholesterol [Mass/Vol] 165 mg/dL Normal 100-200 [facility] Comment on above: Result Comment: <200 mg/dl Desirable 200-239 mg/dl Borderline High >= 240 mg/dl High Performed By: #### 1 [id number] #### [facility] [address] [place] [address] 72621 Weight Count Operator: Rojas Hernandez MD Cholesterol in HDL [Mass/Vol] 47 mg/dL Normal 40-60 [facility] Comment on above: Performed By: #### 1 [id number] #### [facility] [address] [place] [address] 09595 Weight Count Operator: Rojas Hernandez MD Triglyceride [Mass/Vol] 153 mg/dL High 30-150 [facility] Comment on above: Performed By: #### 1 [id number] #### [facility] [address] [place] [address] 35650 Weight Count Operator: Rojas Hernandez MD MG LEVELon 01-08-2021 Magnesium [Mass/Vol] 2.4 mg/dL Normal 1.6-2.6 [facility] Comment on above: Performed By: #### 1 [id number] #### [facility] [address] [place] [address] 92305 Weight Count Operator: Rojas Hernandez MD PSAon 01-08-2021 Prostatic Specific Antigen 0.9 ng/mL Normal 0.0-4.0 [facility] Comment on above: Performed By: #### 1 77925 #### [facility] [address] [place] [address] 11435 Weight Count Operator: Rojas Hernandez MD ACETAMIN LEVELon 01-07-2021 Acetaminophen [Mass/Vol] ug/mL Low 10.0-30.0 [facility] Comment on above: Performed By: #### 9 [id number] #### [facility] [address] [place] [address] 72525 Weight Count Operator: Rojas Hernandez MD Date Last Dose Normal [facility] Comment on above: Performed By: #### 9 [id number] #### [facility] [address] [place] [address] 48722 Weight Count Operator: Rojas Hernandez MD Time Last Dose Normal [facility] Comment on above: Performed By: #### 9 [id number] #### [facility] [address] [place], [place] [id number] Weight Count Operator: Rojas Hernandez MD APTTon 01-07-2021 aPTT Coag (Bld) [Time] 29.7 s Normal 25.0-35.0 [facility] Comment on above: Performed By: #### 1 [id number] #### [facility] [address] [place], [place] [phone] Weight Count Operator: Rojas Hernandez MD AUTO DIFFon 01-07-2021 Baso Count 0.10 x1000 Normal 0.00-0.20 [facility] Comment on above: Performed By: #### 1 [id number] #### [facility] [address] [place], [place] [address] Weight Count Operator: Rojas Hernandez MD Basos % 0.7 % Normal [facility] Comment on above: Performed By: #### 1 51028 #### [facility] [address] [place] [address] 50736 Weight Count Operator: Rojas Hernandez MD Eos Count 0.10 x1000 Normal 0.00-0.50 [facility] Comment on above: Performed By: #### 1 59756 #### [facility] [address] [place] [address] 92063 Weight Count Operator: Rojas Hernandez MD Eosinophils/100 WBC (Bld) 1.6 % Normal [facility] Comment on above: Performed By: #### 1 55292 #### [facility] [address] [place] [address] 82398 Weight Count Operator: Rojas Hernandez MD Lymph Count 1.50 x1000 Normal 1.20-4.80 [facility] Comment on above: Performed By: #### 1 26747 #### [facility] [address] [place] [address] 76826 Weight Count Operator: Rojas Hernandez MD Lymphocytes/100 WBC (Bld) 17.8 % Normal [facility] Comment on above: Performed By: #### 1 50044 #### [facility] [address] [place] [address] 95185 Weight Count Operator: Rojas Hernandez MD Navajo Count 0.50 x1000 Normal 0.10-1.00 [facility] Comment on above: Performed By: #### 1 10572 #### [facility] [address] [place] [address] 45595 Weight Count Operator: Rojas Hernandez MD Monocytes/100 WBC (Bld) 5.8 % Normal [place] Comment on above: Performed By: #### 1 71581 #### [facility] [address] [place] [address] 18184 Weight Count Operator: Rojas Hernandez MD Neutrophil Count (ANC) 6.30 x1000 Normal 1.40-8.80 [facility] Comment on above: Performed By: #### 1 69150 #### [facility] [address] [place] [address] 44296 Weight Count Operator: Rojas Hernandez MD Neutrophils/100 WBC (Bld) 74.1 % Normal [facility] Comment on above: Performed By: #### 1 05978 #### [facility] [address] [place] [address] 16563 Weight Count Operator: Rojas Hernandez MD Red Blood Cell Morphology See Notes Abnormal [facility] Comment on above: Result Comment: Anis ocytosis 1+ Performed By: #### 1 53614 #### [facility] [address] [place] [address] 04825 Weight Count Operator: Rojas Hernandez MD COMPMETAon 01-07-2021 GFR Estimated 61 Normal [facility] Comment on above: Result Comment: The GFR is calculated and is Age, Sex, and Race adjusted. Performed By: #### 1 [id number] #### [facility] [address] [place] [address] 55738 Weight Count Operator: Rojas Hernandez MD Albumin [Mass/Vol] 3.8 g/dL Normal 3.4-5.0 [facility] Comment on above: Performed By: #### 1 64693 #### [facility] [address] [place] [address] 00684 Weight Count Operator: Rojas Hernandez MD Albumin/Globulin [Mass ratio] 1.1 {ratio} Normal [facility] Comment on above: Performed By: #### 1 14519 #### [facility] [address] [place] [address] 47425 Weight Count Operator: Rojas Hernandez MD Alk Phos 58 unit/L Normal 45-117 [facility] Comment on above: Performed By: #### 1 96365 #### [facility] [address] [place] [address] 73555 Weight Count Operator: Rojas Hernandez MD Bilirubin [Mass/Vol] 0.40 mg/dL Normal 0.20-1.00 [facility] Comment on above: Result Comment: Use of this assay is not recommended for patients undergoing treatment with eltrombopag due to the potential for falsely elevated results. Performed By: #### 1 07917 #### [facility] [address] [place] [address] 18988 Weight Count Operator: Rojas Hernandez MD Calcium [Mass/Vol] 8.7 mg/dL Normal 8.5-10.5 [facility] Comment on above: Performed By: #### 1 04152 #### [facility] [address] [place] [address] 25669 Weight Count Operator: Rojas Hernandez MD Chloride [Moles/Vol] 107 mmol/L Normal 100-109 [facility] Comment on above: Performed By: #### 1 56783 #### [facility] [address] [place] [address] 05347 Weight Count Operator: Rojas Hernandez MD CO2 [Moles/Vol] 22.0 mmol/L Normal 21.0-32.0 [facility] Comment on above: Performed By: #### 1 99360 #### [facility] [address] [place] [address] 02224 Weight Count Operator: Rojas Hernandez MD Creatinine [Mass/Vol] 1.2 mg/dL Normal 0.7-1.[address] [facility] Comment on above: Performed By: #### 1 44995 #### [facility] [address] [place] [address] 55115 Weight Count Operator: Rojas Hernandez MD Globulin (S) [Mass/Vol] 3.4 g/dL Normal [facility] Comment on above: Performed By: #### 1 83965 #### [facility] [address] [place] [address] 69399 Weight Count Operator: Rojas Hernandez MD Glucose [Mass/Vol] 117 mg/dL High 72-100 [facility] Comment on above: Result Comment: Monica puncture should occur prior to sulfasalazine administration due to the potential for falsely depressed results. Venipuncture should occur prior to sulfapyridine administration due to the potential falsely elevated results. Baseline assay values before administration of sulfasalazine and sulfapyridine therapy would not be affected. Performed By: #### 1 07340 #### [facility] [address] [place] [address] 03001 Weight Count Operator: Rojas Hernandez MD GOT 23 unit/L Normal 15-37 [facility] Comment on above: Result Comment: Monica puncture should occur prior to sulfasalazine administration due to the potential for falsely depressed results. Baseline assay values before administration of sulfasalazine and sulfapyridine therapy would not be affected. Performed By: #### 1 47119 #### [facility] [address] [place] [address] 83974 Weight Count Operator: Rojas Hernandez MD GPT 28 unit/L Normal 16-63 [facility] Comment on above: Result Comment: Monica puncture should occur prior to sulfasalazine administration due to the potential for falsely depressed results. Baseline assay values before administration of sulfasalazine and sulfapyridine therapy would not be affected. Performed By: #### 1 16008 #### [facility] [address] [place] [address] 40946 Weight Count Operator: Rojas Hernandez MD Osmolality [Osmolality] 282 mosm/kg Normal 275-295 [facility] Comment on above: Performed By: #### 1 39383 #### [facility] [address] [place] [address] 48642 Weight Count Operator: Rojas Hernandez MD Potassium [Moles/Vol] 3.7 mmol/L Normal 3.5-5.[address] [facility] Comment on above: Performed By: #### 1 23514 #### [facility] [address] [place] [address] 55063 Weight Count Operator: Rojas Hernandez MD Protein [Mass/Vol] 7.2 g/dL Normal 6.0-8.5 [facility] Comment on above: Performed By: #### 1 60232 #### [facility] [address] [place] [address] 51559 Weight Count Operator: Rojas Hernandez MD Sodium [Moles/Vol] 141 mmol/L Normal 135-145 [facility] Comment on above: Performed By: #### 1 44274 #### [facility] [address] [place] [address] Weight Count Operator: Rojas Hernandez MD Urea nitrogen [Mass/Vol] 12 mg/dL Normal 10-20 [facility] Comment on above: Performed By: #### 1 48712 #### [facility] [address] [place] [address] 04499 Weight Count Operator: Rojas Hernandez MD Urea nitrogen/Creatinine [Mass ratio] 10.0 mg/mg Normal [facility] Comment on above: Performed By: #### 1 21058 #### [facility] [address] [place] [address] 38603 Weight Count Operator: Rojas Hernandez MD D Dimer HSon 01-07-2021 D Dimer HS 309 ng/mL FEU Normal <=499 [facility] Comment on above: Result Comment: Excl usion of PE and DVT The D Dimer HS assay is reported in ng/ml Fibrinogen Equivalent Units (FEU). Per embroidery designer?s instructions for use, a value less than 500ng/ml (FEU) may help to exclude DVT and /or PE in outpatients when the assay is used with a clinical pretest probability assessment. D-Dimer used for DIC Screens Assay results should be used with other information, including the clinical context in forming a diagnosis. Performed By: #### 1 [id number] #### [facility] [address] [place] [address] Weight Count Operator: Rojas Hernandez MD HEMOon 01-07-2021 DIFF? No Normal [facility] Comment on above: Performed By: #### 1 93997 #### [facility] [address] [place] [address] 47384 Weight Count Operator: Rojas Hernandez MD Erythrocyte distribution width (RBC) [Ratio] 17.3 % High 11.5-14.5 [facility] Comment on above: Performed By: #### 1 49066 #### [facility] [address] [place] [address] 98390 Weight Count Operator: Rojas Hernandez MD Hematocrit (Bld) [Volume fraction] 37.4 % Low 41.0-52.0 [facility] Comment on above: Performed By: #### 1 63141 #### [facility] [address] [place], [place] [address] Weight Count Operator: Rojas Hernandez MD Hemoglobin (Bld) [Mass/Vol] 12.3 g/dL Low 13.5-17.5 [facility] Comment on above: Performed By: #### 1 26482 #### [facility] [address] [place], [place] [address] Weight Count Operator: Rojas Hernandez MD Instr WBC 8.4 Normal [facility] Comment on above: Performed By: #### 1 03432 #### [facility] [address] [place], [place] [address] Weight Count Operator: Rojas Hernandez MD MCH (RBC) [Entitic mass] 27.6 pg Normal 27.0-34.0 [facility] Comment on above: Performed By: #### 1 05395 #### [facility] [address] [place], [place] [address] Weight Count Operator: Rojas Hernandez MD MCHC (RBC) [Mass/Vol] 33.0 g/dL Normal 32.0-37.[address] [facility] Comment on above: Performed By: #### 1 18795 #### [facility] [address] [place], [place] [address] Weight Count Operator: Rojas Hernandez MD MCV (RBC) [Entitic vol] 83.8 fL Normal 80.0-100.0 [facility] Comment on above: Performed By: #### 1 89696 #### [facility] [address] [place], [place] [address] Weight Count Operator: Rojas Hernandez MD Nucleated RBC 0 /100WBC Normal [facility] Comment on above: Performed By: #### 1 77191 #### [facility] [address] [place] [address] 08889 Weight Count Operator: Rojas Hernandez MD Platelet 299 x1000 Normal 150-450 [facility] Comment on above: Performed By: #### 1 24136 #### [facility] [address] [place] [address] 08615 Weight Count Operator: Rojas Hernandez MD Platelet mean volume (Bld) [Entitic vol] 7.9 fL Normal 7.4-10.4 [facility] Comment on above: Performed By: #### 1 71842 #### [facility] [address] [place] [address] 82982 Weight Count Operator: Rojas Hernandez MD RBC 4.46 x10 Low 4.70-6.10 [facility] Comment on above: Result Comment: Note : RBC morphology is normal unless otherwise stated. Evaluation performed only if differential is requested. Performed By: #### 1 [id number] #### [facility] [address] [place] [address] 52737 Weight Count Operator: Rojas Hernandez MD WBC 8.4 x10 Normal 4.5-11.0 [facility] Comment on above: Performed By: #### 1 24472 #### [facility] [address] [place] [address] 82929 Weight Count Operator: Rojas Hernandez MD MG LEVELon 01-07-2021 Magnesium [Mass/Vol] 4.1 mg/dL High 1.6-2.6 [facility] Comment on above: Result Comment: rchk d Performed By: #### 1 53771 #### [facility] [address] [place] [address] 26160 Weight Count Operator: Rojas Hernandez MD Magnesium [Mass/Vol] 1.0 mg/dL Critically abnormal 1.6-2.6 [facility] Comment on above: Result Comment: ckdv /rbr/adria cobos rn by [email or web address]/ 19:17:15 EDT Performed By: #### 1 19391 #### [facility] [address] [place], [place] [address] Weight Count Operator: Rojas Hernandez MD PT INRon 01-07-2021 INR Coag (PPP) [Relative time] 1.0 {INR} Normal [facility] Comment on above: Result Comment: INR Reference Range: Normal reference range for INR on patients not on anticoagulant therapy: 0.9-1.1 General therapeutic range for patients on anticoagulant therapy: 2.0-3.5 Performed By: #### 1 73769 #### [facility] [address] [place], [place] [address] Weight Count Operator: Rojas Hernandez MD Protime Patient 11.8 seconds Normal 10.1-13.3 [facility] Comment on above: Performed By: #### 1 26892 #### [facility] [address] [place], [place] [address] Weight Count Operator: Rojas Hernandez MD THY GPon 01-07-2021 Free T4 [Mass/Vol] 0.94 ng/dL Normal 0.76-1.40 [facility] Comment on above: Result Comment: High levels of serum biotin may interfere with this test. Performed By: #### 1 76131 #### [facility] [address] [place], [place] [address] Weight Count Operator: Rojas Hernandez MD TSH Qn 2.18 m[IU]/L Normal 0.36-3.74 [facility] Comment on above: Result Comment: High levels of serum biotin may interfere with this test. Performed By: #### 1 67975 #### [facility] [address] [place], [place] [address] Weight Count Operator: Rojas Hernandez MD TROPONINon 01-07-2021 Troponin I.cardiac [Mass/Vol] ng/mL Normal 0.000-0.09 9 [facility] Comment on above: Result Comment: This test is a quantitative determination of cardiac troponin I. High levels of serum biotin may interfere with this test. Performed By: #### 1 37097 #### [facility] [address] [place] [address] Weight Count Operator: Rojas Hernandez MD Troponin I.cardiac [Mass/Vol] ng/mL Normal 0.000-0.09 9 [facility] Comment on above: Result Comment: This test is a quantitative determination of cardiac troponin I. High levels of serum biotin may interfere with this test. Performed By: #### 9 [id number] #### [facility] [address] [place] [address] Weight Count Operator: Rojas Hernandez MD XR CHEST PORTABLEon 01-08-20 21 XR CHEST PORTABLE EXAM DESCRIPTION: XR CHEST [...] DUPREE MD Signed Out: 01/07/21 19:24:52 Normal [facility] proBNPon 01-07-2021 Natriuretic peptide B (Bld) [Mass/Vol] 71 pg/mL Normal 0-124 [facility] Comment on above: Order Comment: order able at [facility] ONLY Result Comment: Acut e CHF Rule-in: less than 50 yrs old greater than or equal to 450 pg/ml greater than 50 yrs old greater than or equal to 900 pg/ml Performed By: #### 9 [id number] #### [facility] [address] [place] [address] 44130 Weight Count Operator: Rojas Hernandez MD C BLOODon 12-07-2020 C BLOOD [facility] [address] [place] [phone] Name: MINDY ROSARIO III : 1960 Admitting NYDIA TURK MD Provider: Gender: Male Financial [phone] Number: Location: 1DOF; D166; 02 Admit 11/27/2020 [...] Abnormal, C=Critical, f=Footnote, c=Corrected, i=Interp Data Name: MINDY ROSARIO III Print Date/ 12/07/2020 06:38 EDT [facility]: [facility] [address] [place] [phone] Name: MINDY ROSARIO III : 1960 Admitting NYDIA TURK MD Provider: Gender: Male Financial [id number] Number: Location: 1DOF; D166; 02 Admit 11/27/2020 [...] Abnormal, C=Critical, f=Footnote, c=Corrected, i=Interp Data Name: MINDY ROSARIO III Print Date12/07/2020 06:38 EDT Time: Normal [facility] Comment on above: Performed By: #### 1 52653 #### [facility] Services [address] [place] [address] Weight Count Operator: MD Lam Cain BLOODon 12-02-2020 C BLOOD [facility] Services [address] [place] [phone] Name: MINDY ROSARIO III : 1960 Admitting NYDIA TURK MD Provider: Gender: Male Financial [id number] Number: Location: 1DOF; D166; 02 Admit 11/27/2020 [...] Abnormal, C=Critical, f=Footnote, c=Corrected, i=Interp Data Name: MINDY ROSARIO III Print Date/ 12/02/2020 19:00 EST Time: Normal [facility] Comment on above: Performed By: #### 1 [id number] ####[facility] Laboratory [id number] [place] [id number] Medical Director: Rojas Hernandez MD BASICMETAon 11-28-2020 Calcium [Mass/Vol] 8.3 mg/dL Low 8.5-10.5 [facility] Comment on above: Performed By: #### 9 [id number] #### [facility] Laboratory Services [address] [place] [address] Weight Count Operator: Rojas Hernandez MD Chloride [Moles/Vol] 112 mmol/L High 100-109 [facility] Comment on above: Performed By: #### 9 [id number] #### [facility] Laboratory Services [address] [place] [address] Weight Count Operator: Rojas Hernandez MD CO2 [Moles/Vol] 25.3 mmol/L Normal 21.0-32.0 [facility] Comment on above: Performed By: #### 9 [id number] #### [facility] Services [address] [place] [address] Weight Count Operator: Rojas Hernandez MD Creatinine [Mass/Vol] 1.1 mg/dL Normal 0.7-1.[address] [facility] Comment on above: Performed By: #### 9 [id number] #### [facility] Services [address] [place] [address] Weight Count Operator: Rojas Hernandez MD GFR AA >60 Normal [facility] Comment on above: Result Comment: Afri can Welsh GFR Calc Medical judgement is necessary to [...] for drug dosing. Performed By: #### 9 [id number] #### [facility] Services [address] [place] [address] Weight Count Operator: Rojas Hernandez MD Glomerular Filtration Rate >60 Normal [facility] Comment on above: Result Comment: Non GFR [...] for drug dosing. Performed By: #### 9 [id number] #### [facility] Services [address] [place] [address] Weight Count Operator: Rojas Hernandez MD Glucose [Mass/Vol] 75 mg/dL Normal 72-100 [facility] Comment on above: Result Comment: Monica puncture should occur prior to sulfasalazine administration due to the potential for falsely depressed results. Venipuncture should occur prior to sulfapyridine administration due to the potential falsely elevated results. Baseline assay values before administration of sulfasalazine and sulfapyridine therapy would not be affected. Performed By: #### 9 [id number] #### [facility] Services [address] [place] [address] Weight Count Operator: Rojas Hernandez MD Osmolality [Osmolality] 283 mosm/kg Normal 275-295 [facility] Comment on above: Performed By: #### 9 [id number] #### [facility] Services [address] [place] [address] Weight Count Operator: Rojas Hernandez MD Potassium [Moles/Vol] 3.7 mmol/L Normal 3.5-5.[address] [facility] Comment on above: Performed By: #### 9 [id number] #### [facility] Services [address] [place] [address] Weight Count Operator: Rojas Hernandez MD Sodium [Moles/Vol] 142 mmol/L Normal 135-145 [facility] Comment on above: Performed By: #### 9 [id number] #### [facility] Services [address] [place] [address] Weight Count Operator: Rojas Hernandez MD Urea nitrogen [Mass/Vol] 15 mg/dL Normal 10-20 [facility] Comment on above: Performed By: #### 9 [id number] #### [facility] Services [address] [place] [address] Weight Count Operator: Rojas Hernandez MD Urea nitrogen/Creatinine [Mass ratio] 13.8 mg/mg Normal [facility] Comment on above: Performed By: #### 9 [id number] #### [facility] Services [address] [place] [address] Weight Count Operator: Rojas Hernandez MD C URINEon 11-28-2020 C URINE [facility] Services [id number] [place] [phone] Name: MINDY ROSARIO III : 1960 Admitting NYDIA TURK MD Provider: Gender: Male Financial [id number] Number: Location: 1DOF; D166; 02 Admit 11/27/2020 [...] Abnormal, C=Critical, f=Footnote, c=Corrected, i=Interp Data Name: MINDY ROSARIO III Print Date/ 11/28/2020 09:25 EST Time: Normal [facility] Comment on above: Performed By: #### 1 [id number] #### [facility] Laboratory Services [address] [place] [address] Weight Count Operator: Rojas Hernandez MD CBCNDon 11-28-2020 Erythrocyte distribution width (RBC) [Ratio] 16.8 % High 11.5-14.5 [facility] Comment on above: Performed By: #### 9 [id number] #### [facility] Services [address] [place] [address] Weight Count Operator: Rojas Hernandez MD Hematocrit (Bld) [Volume fraction] 35.9 % Low 41.0-52.0 [facility] Comment on above: Performed By: #### 9 [id number] #### [facility] Services [address] [place] [address] Weight Count Operator: Rojas Hernandez MD Hemoglobin (Bld) [Mass/Vol] 11.6 g/dL Low 13.5-17.5 [facility] Comment on above: Result Comment: Revi ewed Performed By: #### 9 [id number] #### [facility] Services [address] [place] [address] Weight Count Operator: Rojas Hernandez MD Instr WBC ND 6.8 Normal [facility] Comment on above: Performed By: #### 9 [id number] #### [facility] Services [address] [place] [address] Weight Count Operator: Rojas Hernandez MD MCH (RBC) [Entitic mass] 27.2 pg Normal 27.0-34.0 [facility] Comment on above: Performed By: #### 9 [id number] #### [facility] Services [address] [place] [address] Weight Count Operator: Rojas Hernandez MD MCHC (RBC) [Mass/Vol] 32.4 g/dL Normal 32.0-37.[address] [facility] Comment on above: Performed By: #### 9 [id number] #### [facility] Services [address] [place] [address] Weight Count Operator: Rojas Hernandez MD MCV (RBC) [Entitic vol] 83.8 fL Normal 80.0-100.0 [facility] Comment on above: Performed By: #### 9 [id number] #### [facility] Services [address] [place] [address] Weight Count Operator: Rojas Hernandez MD Platelet 245 x1000 Normal 150-450 [facility] Comment on above: Result Comment: Revi ewed Performed By: #### 9 [id number] #### [facility] Services [address] [place] [address] Weight Count Operator: Rojas Hernandez MD Platelet mean volume (Bld) [Entitic vol] 8.1 fL Normal 7.4-10.4 [facility] Comment on above: Performed By: #### 9 [id number] #### [facility] Services [address] [place] [address] Weight Count Operator: Rojas Hernandez MD RBC 4.28 x10 Low 4.70-6.10 [facility] Comment on above: Result Comment: Note : RBC morphology is normal unless otherwise stated. Evaluation performed only if differential is requested. Performed By: #### 9 [id number] #### [facility] Services [address] [place] [address] Weight Count Operator: Rojas Hernandez MD WBC 6.8 x10 Normal 4.5-11.0 [facility] Comment on above: Performed By: #### 9 136528 #### [facility] Services [address] [place] [address] Weight Count Operator: Rojas Hernandez MD Nursing Clinical Noteon 0 Nursing Clinical Note 0700-Morning round s report received from Mimi DEL ROSARIO. Pt alert and oriented sitting up in bed, call miranda within reach. 0825-Pt medicated with morning orders, assessment complete, see Powerchart. Pt updated with plan of care, pt verbalized understanding without any further questions. All needs met at this time. Call miranda within reach. Normal [facility] COVID-19 by PCR BREDon 11-27 SARS-CoV-2 (COVID-19) RNA VILMA+probe Ql (Unsp spec) Negative Normal [facility] Comment on above: Performed By: #### C [id number] #### [facility] Laboratory Services [address] [place] [address] Weight Count Operator: Rojas Hernandez MD Consult Reporton 11-27-2020 Consult Report Patient: MINDY ROSARIO III Age: 60 years Sex: Male : 1960 Associated Diagnoses: None Author: EVANGELINA GIORDANO, [facility] Consult Note IMPRESSION: 1. Chest pain: The setting of intractable cyclic vomiting 2. CAD, NEVAEH to OM, LAD, NEVAEH x 4 to the RCA 3. Hypertension 4. Hyperlipidemia 5. Depression 6. GERD PLAN: No evidence of acute coronary syndrome. EKG without changes. Troponins are negative. Symptoms most likely related to esophageal dysmotility or related to intractable vomiting. Consider GI referral. Will follow with outpatient rn forensic in 1 to 2 weeks post discharge. [...] 1.1 (MA (more content not included)... Normal [facility] ED Discharge Educationon ED Discharge Education Normal So [facility] ED Physician Reporton 2020 ED Physician Report Patient: MINDY ROSARIO III Age: 60 years Sex: Male [...] on 05/01/2018 at 58 Years. Coronary Angiograms. (67573) on 05/01/2018 at 58 Years. Left Heart Catheterization, left ventriculogram. (02506) on 04/16/2018 at 58 Years. Percutaneous Coronary Angioplasty. (52626) on 04/16/2018 at 58 Years. Drug Eluting Stent- Coronary Artery. (C9600) on 04/16/2018 at 58 Years. Comments: 04/17/2018 9:40 RENATE CRUZ MD, YOSI PCI with 3 by 20mm Promus NEVAEH Laparoscopy, surgical, esophagogastric fundoplasty (eg, Gabriela, Toupet procedures) (56200) on 10/20/2015 at 55 Years. Comments: 10/20/2015 8:22 ALFONZO Rios RN, Monik LAPAROSCOPIC GABRIELA FUNDOPLICATION HERNIA on 10/20/2015 at 55 Years. Comments: 11/01/2015 11:00 ALFONZO - Jo Ann DEL ROSARIO, Dorothy 2 WEEKS AGO esophagogastroduodenosco py(EGD). (52449) on 08/17/2015 at 55 Years. COLONOSCOPY AND BIOPSY (PT:59) in 2015 at 55 Years. Cholecystectomy; (33746). EGD. Wrist surgery. Comments: 07/27/2015 14:08 ALFONZO - Gianna WRIGHT, Soraida left cardiac stents., Reviewed as documented [...] No ectopy. (more content not included)... Normal [facility] ED Progress Noteon ED Progress Note Pt presents to ED fr om home w/ c/o abd pain, n/v/d x 1-2days. Pt has hx of cyclic vomiting. IV placed, labs drawn and EKG done. Pt tachy upon arrival. RR unlabored. 0100: Pt medicated per orders. 0600: pt to be admitted to [facility]. Awaiting bed assignment. Pt to be transferred to [facility], Physicians called for transport. ETA 0730, Report given to Thelma DEL ROSARIO at [facility]. Patient care transferred to EMS without incident. Normal [facility] Nursing Clinical Noteon 03 Nursing Clinical Note 1348-Pt with compl aints of headache, pt medicated with Tylenol per orders. All needs met at this time. Call miranda within reach. Normal [facility] TROPONINon 11-27-2020 Troponin I.cardiac [Mass/Vol] 0.096 ng/mL Normal 0.000-0.09 9 [facility] Comment on above: Result Comment: This test is a quantitative determination of cardiac troponin I. High levels of serum biotin may interfere with this test. Performed By: #### 1 [id number] #### [facility] Services [address] [place] [address]88 Weight Count Operator: Rojas Hernandez MD U DOAon 11-27-2020 Amphetamines, U Negative Normal [facility] Comment on above: Performed By: #### 1 76961 #### [facility] Services [address] [place] [address] Weight Count Operator: Rojas Hernandez MD Barbituates, U Negative Normal [facility] Comment on above: Performed By: #### 1 72464 #### [facility] Services [address] [place] [address] 11264 Weight Count Operator: Rojas Hernandez MD Benzodiazepines, U Negative [facility] Comment on above: Performed By: #### 1 71151 #### [facility] Services [address] [place] [address]192 Weight Count Operator: Rojas Hernandez MD Cocaine, U Negative [facility] Comment on above: Performed By: #### 1 58063 #### [facility] Laboratory Services [address] [place] [address]31 Weight Count Operator: Rojas Hernandez MD Ecstasy, U see note Normal [facility] Comment on above: Result Comment: Init ially positive for MDMA family of substances which may include prescription medications. Clinical judgment required for interpretation. Performed By: #### 1 96596 #### [facility] Services [address] [place] [address]57 Weight Count Operator: Rojas Hernandez MD Opiates, U Negative [facility] Comment on above: Performed By: #### 1 50653 #### [facility] Laboratory Services [address] [place] [address] Weight Count Operator: Rojas Hernandez MD PCP, U Negative [facility] Comment on above: Performed By: #### 1 14196 #### [facility] Services [address] [place] [address] Weight Count Operator: Rojas Hernandez MD THC, U Positive Normal [facility] Comment on above: Performed By: #### 1 46570 #### [facility] Services [address] [place] [address]199 Weight Count Operator: Rojas Hernandez MD UAon 11-27-2020 Appearance, U Slightly Cloudy [facility] Comment on above: Performed By: #### 1 70991 #### [facility] Services [address] [place] [address]91 Weight Count Operator: Rojas Hernandez MD Bacteria, U Occasional Normal [facility] Comment on above: Performed By: #### 1 24059 #### [facility] Services [address] [place] [address] 99995 Weight Count Operator: Rojas Hernandez MD Bilirubin, U see note Normal [facility] Comment on above: Result Comment: Init ial positive results not confirmed. Interfering substances may include elevated urobilinogen. Performed By: #### 1 65334 #### [facility] Services [address] [place] [address] 01405 Weight Count Operator: Rojas Hernandez MD Blood, U Moderate Abnormal Negative [facility] Comment on above: Performed By: #### 1 43492 #### [facility] Services [address] [place] [address] 25363 Weight Count Operator: Rojas Hernandez MD Color, U Yellow Normal [facility] Comment on above: Performed By: #### 1 81693 #### [facility] Services [address] [place] [address] 28775 Weight Count Operator: Rojas Hernandez MD Glucose Qual, U Negative Normal Negative [facility] Comment on above: Performed By: #### 1 38465 #### [facility] Services [address] [place] [address] 44741 Weight Count Operator: Rojas Hernandez MD Granular Cast 1 #/HPF Normal [facility] Comment on above: Performed By: #### 1 85750 #### [facility] Services [address] [place] [address] 53095 Weight Count Operator: Rojas Hernandez MD Ketones, U Trace Normal Negative [facility] Comment on above: Performed By: #### 1 25916 #### [facility] Laboratory Services [address] [place] [address] 67316 Weight Count Operator: Rojas Hernandez MD Leukocyte Esterase, U Negative Normal Negative [facility] Comment on above: Performed By: #### 1 19273 #### [facility] Services [address] [place] [address] 21534 Weight Count Operator: Rojas Hernandez MD Mucous, U Occasional Normal [facility] Comment on above: Performed By: #### 1 31216 #### [facility] Services [address] [place] [address] 94671 Weight Count Operator: Rojas Hernandez MD Nitrite, U Negative Normal Negative [facility] Comment on above: Performed By: #### 1 19104 #### [facility] Services [address] [place] [address] 97562 Weight Count Operator: Rojas Hernandez MD Non-Squamous Epithelial, U 1 #/HPF Normal [facility] Comment on above: Performed By: #### 1 63274 #### [facility] Laboratory Services [address] [place] [address] 68419 Weight Count Operator: Rojas Hernandez MD pH, U 7.0 Normal 4.5-8.0 [facility] Comment on above: Performed By: #### 1 08018 #### [facility] Laboratory Services [address] [place] [address] 07923 Weight Count Operator: Rojas Hernandez MD Protein, U 100 mg/dl Abnormal Negative [facility] Comment on above: Performed By: #### 1 19836 #### [facility] Laboratory Services [address] [place] [address] 90220 Weight Count Operator: Rojas Hernandez MD RBC/HPF, U 2 #/HPF Normal 0-3 [facility] Comment on above: Performed By: #### 1 32473 #### [facility] Laboratory Services [address] [place] [address] 25291 Weight Count Operator: Rojas Hernandez MD Specific [place], U 1.020 Normal 1.001-1. 03 5 [facility] Comment on above: Performed By: #### 1 34629 #### [facility] Laboratory Services [address] [place] [address] 79547 Weight Count Operator: Rojas Hernandez MD Squamous Epithelial Cells, U 1 #/HPF Normal [facility] Comment on above: Performed By: #### 1 56890 #### [facility] Services [address] [place] [address] 65088 Weight Count Operator: Rojas Hernandez MD U MICRO Indicated Normal [facility] Comment on above: Performed By: #### 1 63136 #### [facility] Laboratory Services [address] [place] [address] 34072 Weight Count Operator: Rojas Hernandez MD Urobilinogen Qual, U 0.2 EU/dl Normal 0.1-1.0 mg/dl [facility] Comment on above: Result Comment: EU/d l and mg/dl are equivalent units. Performed By: #### 1 63652 #### [facility] Services [address] [place] [address] 29746 Weight Count Operator: Rojas Hernandez MD WBC/HPF, U 5 #/HPF Normal 0-5 [facility] Comment on above: Performed By: #### 1 51031 #### [facility] Laboratory Services [address] [place], [place] [phone] Weight Count Operator: Rojas Hernandez MD Utilization Review Noteon Utilization Review Note PER ROUNDS HAS N OT CROSSED 1 MN, ANTICIPATE DC TOMORROW IF TOLERATING DIET AND STANLEY IMPROVES Normal [facility] ALLIED HEALTHon 11-13-2019 ALLIED HEALTH HNO ID: [id number] Author: Jojo Patel (Rt) Service: ? Author Type: Department Secretary Type: Allied Health Filed: 11/13/2019 10:53 AM Note Text: Radiology Service Progress Note PATIENT NAME: Mindy Rosario III DATE OF SERVICE: November 13, 2019 TIME: 10:52 AM PATIENT IDENTITY VERIFICATION COMPLETED USING TWO (2) IDENTIFIERS: Name and Date of confirmed by patient verbally. PATIENT GENDER DATA: Male PATIENT RELEVANT IMPLANT DATA REVIEWED: Not Applicable RADIOLOGY DEPARTMENT: General X-ray: Exam(s) Completed: Chest X-Ray PERIPHERAL IV DATA: Not applicable SIGNED BY: RT Amanda November 13, 2019 10:[address] [facility] Basic Metabolic Panlon 11-13 Anion gap [Moles/Vol] 13 mmol/L Normal 9-18 [facility] Comment on above: Performed By: #### C BCDIF, BMP, MG1 ####[facility] [id number] [place] [address] Calcium [Mass/Vol] 8.7 mg/dL Normal 8.5-10.2 [facility] Comment on above: Performed By: #### C BCDIF, BMP, MG1 ####[facility] [id number] [place] [address] Chloride [Moles/Vol] 108 mmol/L High 97-105 [facility] Comment on above: Performed By: #### C BCDIF, BMP, MG1 ####[facility] [address] [place] [address] CO2 [Moles/Vol] 21 mmol/L Low 22-30 [facility] Comment on above: Performed By: #### C BCDIF, BMP, MG1 ####[facility] [id number] [place] [address] Creatinine [Mass/Vol] 0.96 mg/dL Normal 0.73-1.22 [facility] Comment on above: Performed By: #### C BCDIF, BMP, MG1 ####[facility] [id number] [place] [address] eGFR- Amer. >60 Normal [facility] Comment on above: Performed By: #### C BCDIF, BMP, MG1 ####[facility] [id number] [place] [address] GFR/1.73 sq M predicted among non-blacks MDRD (S/P/Bld) [Vol rate/Area] mL/min/{1.73_m2} Normal [facility] Comment on above: Result Comment: eGFR (Estimated [...] reflect actual GFR. Performed By: #### C CHRISTI [place], MG1 ####[facility] [id number] [place] [address] Glucose [Mass/Vol] 88 mg/dL Normal 74-99 [facility] Comment on above: Result Comment: The [place] Diabetes [employer] (ADA) provides guidance for cutoff [...] Standards of Medical Care in Diabetes 2016, [place] [employer]. Diabetes Care. 2016.39(Suppl 1). Performed By: #### C [place]RISTI [place] MG1 ####[facility] [address]upcbl[address] [place] [address] Potassium [Moles/Vol] 3.4 mmol/L Low 3.7-5.1 [facility] Comment on above: Performed By: #### C [place]RI[place]I [place], MG1 ####[facility] Rsqhlyltsn[address] [place] [address] Sodium [Moles/Vol] 142 mmol/L Normal 136-144 [facility] Comment on above: Performed By: #### C [place], MG1 ####[facility] [address]dhp[address] [place] [address] Urea nitrogen [Mass/Vol] 11 mg/dL Normal 9-24 [facility] Comment on above: Performed By: #### C [place]RISTI [place] MG1 ####[facility] [address] [place], [place] [phone] CASE MANAGEMon 11-13-2019 CASE MANAGEM HNO ID: [id number] Author: Aliza DwyerRn) CARIN Jo Service: Case Management Author Type: [...] Care Physician Primary Care Physician Name/Phone: Prerna Lemus DO; Summary of Care to Prerna Lemus DO [...] appointment. SIGNATURE: Aliza Jo RN PATIENT NAME: Mindy Rosario III DATE: November 13, 2019 TIME: 2:28 PM PAGER/CONTACT #: [phone] [facility] CASE MANAGEM HNO ID: [id number] Author: Mayra Flood (Msw) Service: ? Author Type: Hog Cutter Type: Care Mgt Progress Note Filed: 11/13/2019 [...] him. Also provided him with handouts on [facility], and [facility]. Pt appreciative of resources and information. Denies any other needs at this time. Assigned CM will continue to follow for possible dc needs. SIGNATURE: MICHELLE Grier, OVERLAY OPERATOR PATIENT NAME: Mindy Rosario III DATE: November 13, 2019 TIME: 1:52 PM PAGER/CONTACT #: [phone] 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 Last discharge within 30 days: No Advance Directive: Current Advance Directive: Health Care Power of Legal Practice Manager In Chart: No Oxygen Therapy Technician Attempted to Assist with AD Completion: [...] Extended Emergency Contact Information Primary Emergency Contact: Ebenezer Rosario Address: [address] [place] [address] [address] [place] [address] Relation: Spouse Supportive Patient Contact:: Yes Social [...] Completely I feel financially burdened by my mxk-tf-gvubtj expenses for my prescription medication:: 0 - Disagree Completely Risk Score: 0 Patient is categorized as: Low risk < 2 Are you interested in bedside delivery of your medications? No, preferred community [facility]acy is [facility]. Is Patient Psychosocially Complex?: Yes, refer to Social Work ASSESSMENT AND PLAN: Medical Needs: Medical Needs: Two or more chronic diseases Psychosocial Needs: Psychosocial Needs: Chemical Dependency Drug of Choice: Marijuana Treatment: None FREEDOM OF CHOICE EXPLAINED: Amelia of Choice Given: No Reason Not Given: No placements necessary POTENTIAL TRANSITION PLANS Home EMR reviewed and CM assessment complete. 59 year old patient assigned to Observation bed for Cannabinoid hyperemesis syndrome. 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 No skilled needs anticipated at discharge. OVERLAY OPERATOR to follow-up with patient regarding chonic Marijuana use. CM assigned will continue to follow. SIGNATURE: Aliza Jo RN PATIENT NAME: Mindy Rosario III DATE: November 13, 2019 TIME: 11:23 AM PAGER/CONTACT #: [phone] Normal [facility] CBC and Differentialon 11-13 Abs Baso <0.03 Normal <0.11 [facility] Comment on above: Performed By: #### C BCDIF, BMP, MG1 ####[facility] [address] [place], [place] [phone] Abs Navajo 0.65 k/uL Normal <0.87 [facility] Comment on above: Performed By: #### C BCDIF, BMP, MG1 ####[facility] [address] [place] [address] Abs Neut 5.39 k/uL Normal 1.45-7.50 [facility] Comment on above: Performed By: #### C BCDIF, BMP, MG1 ####[facility] Uzqtkrkftc6585 [address] Basophils/100 WBC (Bld) 0.3 % Normal [facility] Comment on above: Performed By: #### C BCDIF, BMP, MG1 ####[facility] [address] [place] [address] Eosinophils (Bld) [#/Vol] 0.06 10*3/uL Normal <0.46 [facility] Comment on above: Performed By: #### C BCDIF, BMP, MG1 ####[facility] [address] [place] [address] Eosinophils/100 WBC (Bld) 0.8 % Normal [facility] Comment on above: Performed By: #### C BCDIF, BMP, MG1 ####[facility] [address] [place] [address] Erythrocyte distribution width (RBC) [Ratio] 18.3 % High 11.5-15.0 [facility] Comment on above: Performed By: #### C BCDIF, BMP, MG1 ####[facility] [address] [place] [address] Hematocrit (Bld) [Volume fraction] 34.4 % Low 39.0-51.0 [facility] Comment on above: Performed By: #### C BCDIF, BMP, MG1 ####[facility] [address] [place] [address] Hemoglobin (Bld) [Mass/Vol] 10.7 g/dL Low 13.0-17.0 [facility] Comment on above: Performed By: #### C BCDIF, BMP, MG1 ####[facility] [address] [place] [address] Lymphocytes (Bld) [#/Vol] 1.85 10*3/uL Normal 1.00-4.00 [facility] Comment on above: Performed By: #### C BCDIF, BMP, MG1 ####[facility] [address] [place] [address] Lymphocytes/100 WBC (Bld) 23.2 % Normal [facility] Comment on above: Performed By: #### C BCDIF, BMP, MG1 ####[facility] [address] [place] [address] MCH (RBC) [Entitic mass] 26.8 pG Normal 26.0-34.0 [facility] Comment on above: Performed By: #### C BCDIF, BMP, MG1 ####[facility] [address] [place], [place] [address] MCHC (RBC) [Mass/Vol] 31.1 g/dL Normal 30.5-36.0 [facility] Comment on above: Performed By: #### C BCDIF, BMP, MG1 ####[facility] [address] [place], [place] [phone] MCV (RBC) [Entitic vol] 86.0 fL Normal 80.0-100.0 [facility] Comment on above: Performed By: #### C BCDIF, BMP, MG1 ####[facility] [address] [place], [place] [phone] Monocytes/100 WBC (Bld) 8.2 % Normal [facility] Comment on above: Performed By: #### C BCDIF, BMP, MG1 ####[facility] [address] [place] [address] Neutrophils/100 WBC (Bld) 67.5 % Normal [facility] Comment on above: Performed By: #### C BCDIF, BMP, MG1 ####[facility] [address] [place], [place] [address] Platelet mean volume (Bld) [Entitic vol] 10.5 fL Normal 9.0-12.7 [facility] Comment on above: Performed By: #### C BCDIF, BMP, MG1 ####[facility] Pvrrwtandz4241 [address]721[address] Platelets (Bld) [#/Vol] 263 10*3/uL Normal 150-400 [facility] Comment on above: Performed By: #### C BCDIF, BMP, MG1 ####[facility] Wvophigbnv2326 [address]5[address] RBC (Bld) [#/Vol] 4.00 10*6/uL Low 4.20-6.00 [facility] Comment on above: Performed By: #### C BCDIF, BMP, MG1 ####[facility] Muqbhllqwj9281 [address]5160 WBC (Bld) [#/Vol] 7.97 10*3/uL Normal 3.70-11.00 [facility] Comment on above: Performed By: #### C BCDIF, BMP, MG1 ####[facility] [address] [place] [address] CK, Total and CKMBon 020 CK [Catalytic activity/Vol] 241 U/L Normal 51-298 [facility] Comment on above: Performed By: #### C KCKMB #### [facility] Laboratory [address] [place] [address] CK MB % 1.1 % Normal 0.0-4.0 [facility] Comment on above: Performed By: #### C KCKMB #### [facility] [address] [place] [address] MB 2.7 ng/mL Normal <7.8 [facility] Comment on above: Performed By: #### C KCKMB #### [facility] [address]5160 CNCOon 11-13-2019 CNCO Letter Text Normal [facility] ECG COMPLETEon 11-13-2019 ECG COMPLETE NAME : MINDY ROSARIO PID : [id number] Gender : Male Race : ORD : [id number] Procedure Date : Nov 13 2019 00:54:23 Edit Date : Nov 14 2019 15:19:53 Diagnosis:NORMAL SINUS RHYTHM WHEN COMPARED WITH ECG OF 19-FEB-2017 16:38, VENT. RATE HAS DECREASED BY 58 BPM NON-SPECIFIC CHANGE IN ST SEGMENT IN INFERIOR LEADS Confirmed by MD VALERIE, QAB ([id number]) on 11/14/2019 3:19:51 PM Ventricular Rate : 60 BPM Atrial Rate : 60 BPM P-R Interval : 150 ms QRS Duration : 102 ms Q-T Interval : 468 ms QTC Calculation(Bazett) : 468 ms P [place] : 35 degrees R [place] : 4 degrees T [place] : 14 degrees Test Reason : Chest Pain Location : 4 : 2S 204- Overread By : MD PADILLA QARAB Edited By : MD PADILLA QARAB Referred By : NYDIA TURK Acquired by : BS, Normal [facility] Lipaseon 11-13-2019 Lipase [Catalytic activity/Vol] 36 U/L Normal 16-61 [facility] Comment on above: Performed By: #### L IPA ####[facility] Uptekywajz6200 [address] Magnesiumon 11-13-2019 Magnesium [Mass/Vol] 1.6 mg/dL Low 1.7-2.3 [facility] Comment on above: Performed By: #### C BCDIF, BMP, MG1 ####[facility] Hcgiqqohah3441 [address] NURSING PROGon 11-13-2019 NURSING PROG HNO ID: [id number] Author: Charlie (Rn) CARIN Gutierrez Service: ? Author Type: Registered Nurse Type: Nursing Progress Note Filed: 11/13/2019 3:14 PM Note Text: Nursing Progress Note Patient Name: Mindy Rosario III [place] [facility] [id number]700-pt resting comfortably in bed without s/s distress. Potassium phos running without complications. SR-SB on tele. Patent iv access and falls precautions maintained. Pt has no s/s nausea, CP, SOB, lightheadedness, dizziness. VSS. 0738-morning assessment completed. Am med pas completed. Pt denies nausea, CP, SOB, lightheadedness, dizziness, chills, BERRIOS. 0936-pt c/o ear ache, pt given tylenol per MAR order. Pt denies nausea, CP, SOB, lightheadedness, [...] note was completed by: Charlie Gutierrez RN [facility] NURSING PROG HNO ID: [id number] Author: Leila Munoz) CARIN Lewis Service: ? Author Type: Registered Nurse Type: Nursing Progress Note Filed: 11/13/2019 7:02 AM Note Text: Nursing Progress Note Patient Name: Mindy Rosario III [place] [facility] [id number] Daily Note: 2100 pt awake,symmetrical chest rise, [...] note was completed by: Leila Lewis RN [facility] PLAN OF CAREon 11-13-2019 PLAN OF CARE HNO ID: [id number] Author: Shalonda Ross Service: Hospital Medicine Author Type: Physician Type: Plan of Care Filed: 11/13/2019 7:59 AM Note Text: Ordered EKG ,trops and CXR due to patient's complaint of chest pain. History of coronary artery disease with stent Shalonda Ross MD [facility] Troponin Ton 11-13-2019 Troponin T.cardiac [Mass/Vol] ug/L Normal 0.000-0.[address] [place] [address] Comment on above: Performed By: #### T NT ####[facility] [address] [place] [address] Troponin T.cardiac [Mass/Vol] ug/L Normal 0.000-0.[address] [place] [address] Comment on above: Performed By: #### T NT ####[facility] [address] [place] [address] XR CHEST 1V FRONTAL PORTon 0 11-13-2019 [...] or pleural effusion. IMPRESSION: No acute finding Sales Planning Manager: PSCB Transcribe Date/Time: Nov 13 2019 11:45A Dictated by : NEEL VAZQUEZ MD This examination was interpreted and the report reviewed and electronically signed by: NEEL VAZQUEZ MD on Nov 13 2019 11:48AM EST [id number] [facility] Basic Metabolic Panlon 11-12 Anion gap [Moles/Vol] 8 mmol/L Low 9-18 [facility] Comment on above: Performed By: #### B MP ####[facility] [address] [place] [phone] Calcium [Mass/Vol] 8.8 mg/dL Normal 8.5-10.2 [facility] Comment on above: Performed By: #### B MP ####[facility] [address] [place] [address] Chloride [Moles/Vol] 113 mmol/L High 97-105 [facility] Comment on above: Performed By: #### B MP ####[facility] [address] [place] [phone] CO2 [Moles/Vol] 22 mmol/L Normal 22-30 [facility] Comment on above: Performed By: #### B MP ####[facility] Z[address] [place] [address] Creatinine [Mass/Vol] 0.96 mg/dL Normal 0.73-1.22 [facility] Comment on above: Performed By: #### B MP ####[facility] [address] [place] [address] eGFR- Amer. >60 Normal [facility] Comment on above: Performed By: #### B MP ####[facility] [address] [place] [phone] GFR/1.73 sq M predicted among non-blacks MDRD (S/P/Bld) [Vol rate/Area] mL/min/{1.73_m2} Normal [facility] Comment on above: Result Comment: eGFR (Estimated [...] actual GFR. Performed By: #### B MP ####[facility] [address]kw[address] [place] [address] Glucose [Mass/Vol] 102 mg/dL High 74-99 [facility] Comment on above: Result Comment: The [place] Diabetes Association (ADA) provides guidance for cutoff [...] Standards of Medical Care in Diabetes 2016, [place] Diabetes Association. Diabetes Care. 2016.39(Suppl 1). Performed By: #### B MP ####[facility] [address] [place] [address] Potassium [Moles/Vol] 3.7 mmol/L Normal 3.7-5.1 [facility] Comment on above: Performed By: #### B MP ####[place] [address] Sodium [Moles/Vol] 143 mmol/L Normal 136-144 [facility] Comment on above: Performed By: #### B MP ####[place] [address] Urea nitrogen [Mass/Vol] 16 mg/dL Normal 9-24 [facility] Comment on above: Performed By: #### B MP ####[facility] [address] [place] [address] Anion gap [Moles/Vol] 15 mmol/L Normal 9-18 [facility] Comment on above: Performed By: #### L IPA, MG1, BMP, CBCDIF, HFP ####[place] [address] Calcium [Mass/Vol] 9.0 mg/dL Normal 8.5-10.2 [facility] Comment on above: Performed By: #### L IPA, MG1, BMP, CBCDIF, HFP ####[facility] [address] [place] [address] Chloride [Moles/Vol] 112 mmol/L High 97-105 [facility] Comment on above: Performed By: #### L IPA, MG1, BMP, CBCDIF, HFP ####[facility] [address] [place] [phone] CO2 [Moles/Vol] 20 mmol/L Low 22-30 [facility] Comment on above: Performed By: #### L IPA, MG1, BMP, CBCDIF, HFP ####[facility] [address]ryscl[address] [place] [address] Creatinine [Mass/Vol] 0.97 mg/dL Normal 0.73-1.22 [facility] Comment on above: Performed By: #### L IPA, MG1, BMP, CBCDIF, HFP ####[facility] [address] [place] [address] eGFR- Amer. >60 Normal [facility] Comment on above: Performed By: #### L IPA, MG1, BMP, CBCDIF, HFP ####[facility] [address]sunz[address] [place] [phone] GFR/1.73 sq M predicted among non-blacks MDRD (S/P/Bld) [Vol rate/Area] mL/min/{1.73_m2} Normal [facility] Comment on above: Result Comment: eGFR (Estimated [...] #### L IPA, MG1, BMP, CBCDIF, HFP ####[facility] Xzuqesoqln3135 [address]5160 Glucose [Mass/Vol] 101 mg/dL High 74-99 [facility] Comment on above: Result Comment: The [place] Diabetes Association (ADA) provides guidance for cutoff [...] Standards of Medical Care in Diabetes 2016, [place] Diabetes Association. Diabetes Care. 2016.39(Suppl 1). Performed By: #### L IPA, MG1, BMP, CBCDIF, HFP ####[facility] [address] [place] [address] Potassium [Moles/Vol] 3.6 mmol/L Low 3.7-5.1 [facility] Comment on above: Performed By: #### L IPA, MG1, BMP, CBCDIF, HFP ####[facility] [address] [place] [address] Sodium [Moles/Vol] 147 mmol/L High 136-144 [facility] Comment on above: Performed By: #### L IPA, MG1, BMP, CBCDIF, HFP ####[facility] [address] [place] [address] Urea nitrogen [Mass/Vol] 18 mg/dL Normal 9-24 [facility] Comment on above: Performed By: #### L IPA, MG1, BMP, CBCDIF, HFP ####[facility] [address] [place] [address] Blood Cultureon 11-12-2019 Bacteria identified Cx Nom (Bld) Culture Result - No growth 5 days Normal [facility] Comment on above: Performed By: #### B LCUL ####[facility] [address] [place], [place] [phone] Bacteria identified Cx Nom (Bld) Culture Result - No growth 5 days Normal [facility] Comment on above: Performed By: #### B LCUL ####[facility] [address] [place], [place] [phone] CBC and Differentialon 11-12 Abs Baso <0.03 Normal <0.11 [facility] Comment on above: Performed By: #### L IPA, MG1, BMP, CBCDIF, HFP #### [facility] Laboratory [address] [place], [place] [phone] Abs Navajo 1.17 k/uL High <0.87 [facility] Comment on above: Performed By: #### L IPA, MG1, BMP, CBCDIF, HFP #### [facility] [address] [place] [address] Abs Neut 11.14 k/uL High 1.45-7.50 [facility] Comment on above: Performed By: #### L IPA, MG1, BMP, CBCDIF, HFP #### [facility] [address] [place], [place] [phone] Basophils/100 WBC (Bld) 0.1 % Normal [facility] Comment on above: Performed By: #### L IPA, MG1, BMP, CBCDIF, HFP #### [facility] [address] [place] [address] Eosinophils (Bld) [#/Vol] 10*3/uL Normal <0.46 [facility] Comment on above: Performed By: #### L IPA, MG1, BMP, CBCDIF, HFP #### [facility] [address] [place], [place] [phone] Eosinophils/100 WBC (Bld) 0.0 % Normal [facility] Comment on above: Performed By: #### L IPA, MG1, BMP, CBCDIF, HFP #### [facility] [address] [place], [place] [phone] Erythrocyte distribution width (RBC) [Ratio] 18.1 % High 11.5-15.0 [facility] Comment on above: Performed By: #### L IPA, MG1, BMP, CBCDIF, HFP #### [facility] [address] [place], [place] [phone] Hematocrit (Bld) [Volume fraction] 34.3 % Low 39.0-51.0 [facility] Comment on above: Performed By: #### L IPA, MG1, BMP, CBCDIF, HFP #### [facility] Laboratory [address] [place] [address] Hemoglobin (Bld) [Mass/Vol] 10.8 g/dL Low 13.0-17.0 [facility] Comment on above: Performed By: #### L IPA, MG1, BMP, CBCDIF, HFP #### [facility] Laboratory [address] [facility] [phone] Lymphocytes (Bld) [#/Vol] 1.42 10*3/uL Normal 1.00-4.00 [facility] Comment on above: Performed By: #### L IPA, MG1, BMP, CBCDIF, HFP #### [facility] Laboratory [address] [facility] [phone] Lymphocytes/100 WBC (Bld) 10.3 % Normal [facility] Comment on above: Performed By: #### L IPA, MG1, BMP, CBCDIF, HFP #### [facility] Laboratory [address] [place] [phone] MCH (RBC) [Entitic mass] 26.7 pG Normal 26.0-34.0 [facility] Comment on above: Performed By: #### L IPA, MG1, BMP, CBCDIF, HFP #### [facility] Laboratory [address] [facility] [phone] MCHC (RBC) [Mass/Vol] 31.5 g/dL Normal 30.5-36.0 [facility] Comment on above: Performed By: #### L IPA, MG1, BMP, CBCDIF, HFP #### [facility] Laboratory [address] [place], [place] [address] MCV (RBC) [Entitic vol] 84.9 fL Normal 80.0-100.0 [facility] Comment on above: Performed By: #### L IPA, MG1, BMP, CBCDIF, HFP #### [facility] [address] [place], [place] [address] Monocytes/100 WBC (Bld) 8.5 % Normal [facility] Comment on above: Performed By: #### L IPA, MG1, BMP, CBCDIF, HFP #### [facility] [address] [place] [address] Neutrophils/100 WBC (Bld) 81.1 % Normal [facility] [facility] Comment on above: Performed By: #### L IPA, MG1, BMP, CBCDIF, HFP #### [facility] [address] [facility] [phone] Platelet mean volume (Bld) [Entitic vol] 11.3 fL Normal 9.0-12.7 [facility] Comment on above: Performed By: #### L IPA, MG1, BMP, CBCDIF, HFP #### [facility] [address] [phone] Platelets (Bld) [#/Vol] 296 10*3/uL Normal 150-400 [facility] Comment on above: Performed By: #### L IPA, MG1, BMP, CBCDIF, HFP #### [facility] [address] [facility] [phone] RBC (Bld) [#/Vol] 4.04 10*6/uL Low 4.20-6.00 [facility] Comment on above: Performed By: #### L IPA, MG1, BMP, CBCDIF, HFP #### [facility] [address] [phone] WBC (Bld) [#/Vol] 13.74 10*3/uL High 3.70-11.00 [facility] Comment on above: Performed By: #### L IPA, MG1, BMP, CBCDIF, HFP #### [facility] [address] [phone] HISTORY PHYSICALon 0 HISTORY PHYSICAL HNO ID: [id number] Author: Leti Seth (Pa) Service: Hospital Medicine Author Type: Physician Cane Weigher Helper Type: HANDP Filed: 11/12/2019 4:52 AM Note Text: -------- Attestation signed by Matesuz Wagner at 11/12/2019 6:51 AM I evaluated [...] HOSPITAL MEDICINE HISTORY AND PHYSICAL PCP: Prerna Lemus, NIGHT AND WEEKEND COVERAGE: Nights: Please contact pager [phone]. SUBJECTIVE Chief Complaint: Nausea and vomiting HPI: [...] PAST SURGICAL HISTORY Procedure Laterality Date - PCI CORONARY INTERVENT Stent x 6 - CHOLECYSTECTOMY 2015 [facility] - HIATAL HERNIA REPAIR HX 09/2015 Dr. [facility] - PAST SURGICAL HISTORY OF Left left [...] Patient reports he follows with cardiology through [facility] No chest pain or SOB currently Continue [...] appropriate SIGNATURE: Leti Seth PA-C PATIENT NAME: Mindy Rosario III DATE: November 12, 2019 TIME: 4:49 AM PAGER/CONTACT #: [id number] Normal [facility] Hepatic Functn Panelon 11-12 Albumin [Mass/Vol] 3.9 g/dL Normal 3.9-4.9 [facility] Comment on above: Performed By: #### L IPA, MG1, BMP, CBCDIF, HFP ####[facility] [address] [place] [address] ALP [Catalytic activity/Vol] 44 U/L Normal 38-113 [facility] Comment on above: Performed By: #### L IPA, MG1, BMP, CBCDIF, HFP ####[facility] [address] [place] [address] ALT [Catalytic activity/Vol] 20 U/L Normal 10-54 [facility] Comment on above: Performed By: #### L IPA, MG1, BMP, CBCDIF, HFP ####[facility] Ins[address]fftbg25[address] AST [Catalytic activity/Vol] 20 U/L Normal 14-40 [facility] Comment on above: Performed By: #### L IPA, MG1, BMP, CBCDIF, HFP ####[facility] Rcpqgcxhma8464 [address] Bilirubin [Mass/Vol] 0.3 mg/dL Normal 0.2-1.3 [facility] Comment on above: Performed By: #### L IPA, MG1, BMP, CBCDIF, HFP ####[facility] Rdtwe[address]uuq1123 [address] Bilirubin,Conjugated <0.2 Normal <0.2 [facility] Comment on above: Performed By: #### L IPA, MG1, BMP, CBCDIF, HFP ####[facility] [address] [phone] Protein [Mass/Vol] 6.3 g/dL Normal 6.3-8.0 [facility] Comment on above: Performed By: #### L IPA, MG1, BMP, CBCDIF, HFP ####[facility] Ry[address]tzcosp3900 [address] Lipaseon 11-12-2019 Lipase [Catalytic activity/Vol] 30 U/L Normal 16-61 [facility] Comment on above: Performed By: #### L IPA, MG1, BMP, CBCDIF, HFP ####[facility] Vjgzxyacfe9997 [address] Magnesiumon 11-12-2019 Magnesium [Mass/Vol] 1.8 mg/dL Normal 1.7-2.3 [facility] Comment on above: Performed By: #### L IPA, MG1, BMP, CBCDIF, HFP ####[facility] [address] [place] [address] NURSING PROGon 11-12-2019 NURSING PROG HNO ID: [id number] Author: Charlie (Rn) CARIN Gutierrez Service: ? Author Type: Registered Nurse Type: Nursing Progress Note Filed: 11/12/2019 6:21 PM Note Text: Nursing Progress Note Patient Name: Mindy Rosario III Patient Location: [id number] 0711-pt resting in bed, A+Ox3, denies nausea/pain/sob/dizzines [...] Monitoring pt , patent iv access maintained. 1819-pt c/o feeling anxious. Pt also asking to take brilinta which he states he takes at home for management of previous cardiac stents. EMMA Seth made aware on floor. Per EMMA Seth, verbal order ok to restart brilinta on floor tonight. Following orders accordingly. Monitoring pt. This note was completed by: Charlie Gutierrez RN [facility] NURSING PROG HNO ID: [id number] Author: Leila DwyerRn) CARIN Lewis Service: ? Author Type: Registered Nurse Type: Nursing Progress Note Filed: 11/12/2019 6:25 AM Note Text: Nursing Progress Note Patient Name: Mindy Rosario III Patient [place] [facility] [id number] Daily Note: 0300 pt awake, sinus rhythm on tele, no pain, no vomiting,symmetrical chest rise, vitals stable, complains of heart burn hospitalist notified. 0500 pt awake, sinus rhythm on tele, no vomiting,symmetrical chest rise, vitals stable, This note was completed by: Leila Lewis RN [facility] PLAN OF CAREon 11-12-2019 PLAN OF CARE HNO ID: [id number] Author: Wesley Benitez Service: Hospital Medicine Author Type: Physician Type: Plan of Care Filed: 11/12/2019 1:33 PM Note Text: Patient seen and examined. Resting and no pain/ any other symptoms. Continue on current Mx and monitoring overnight. [facility] PLAN OF CARE HNO ID: [id number] Author: Leti Seth (Pa) Service: Hospital Medicine Author Type: Physician Cane Weigher Helper Type: Plan of Care Filed: 11/12/2019 4:58 AM Note Text: After completion of HANDP was made aware that patient's PCP is Dr. Lemus Discussed with avionics electrical engineer [employer] group for private physicians who will contact Dr. Redding for possible transfer of care in the am [facility] Urinalysison 11-12-2019 Bilirubin, Urine Negative Normal [facility] Comment on above: Performed By: #### U AMIC, UA #### [facility] [address] [place], [place] [id number] Clarity (U) Clear Normal Clear [facility] Comment on above: Performed By: #### U AMIC, UA #### [facility] [address] Color (U) Yellow Normal Yellow [facility] Comment on above: Performed By: #### U AMIC, UA #### [facility] [address] [phone] Glucose Ql (U) Negative Normal Negative [facility] Comment on above: Performed By: #### U AMIC, UA #### [facility] [address] [phone] Hemoglobin/Blood,Ur Small Critically abnormal Negative [facility] Comment on above: Performed By: #### U AMIC, UA #### [facility] [address] Ketones Ql (U) Negative Normal Negative [facility] Comment on above: Performed By: #### U AMIC, UA #### [facility] [address] Leukest Negative Normal Negative [facility] Comment on above: Performed By: #### U AMIC, UA #### [facility] [address] [address] Nitrite Ql (U) Negative Normal Negative [facility] Comment on above: Performed By: #### U AMIC, UA #### [facility] [address] [address] pH (Bld) 6.5 Normal 5.0-8.0 [facility] Comment on above: Performed By: #### U AMIC, UA #### [facility] [address] [address] Protein (U) [Mass/Vol] Negative Normal Negative [facility] Comment on above: Performed By: #### U AMIC, UA #### [facility] [address] [address] Specific [place], Ur 1.025 Normal 1.001-1 .02 9 [facility] Comment on above: Performed By: #### U AMIC, UA #### [facility] [address] [address] Urobilinogen Qn (U) 0.2 Normal 0.2-1.0 [facility] Comment on above: Performed By: #### U AMIC, UA #### [facility] [address] [place] [address] Urine Microscopic (FOR LAB U SE ONLY)on 11-12-2019 Cast SEE COMMENT Normal 0 [facility] Comment on above: Result Comment: 0 Performed By: #### U AMIC, UA #### [facility] [address] [address] Epithelial cells LM.HPF (Urine sed) [#/Area] SEE COMMENT Normal [facility] Comment on above: Result Comment: 0-5 Squamous Epithelial Cells Performed By: #### U AMIC, UA #### [facility] [address] [address] RBC (U) [#/Vol] 3-5 Critically abnormal 0-3 [facility] Comment on above: Performed By: #### U AMIC, UA #### [facility] [address] [facility] [phone] WBC (Bld) [#/Vol] 0-5 Normal 0-5 [facility] Comment on above: Performed By: #### U [facility], UA #### [facility] [address] [phone] PROGRESSon 10-08-2018 Protein mass conc HNO ID: [id number] Author: Provider Left [facility] System Service: (none) Author Type: Physician Type: Progress Notes Filed: 10/08/2018 1:15 PM Note Text: This note is incomplete and has been administratively closed. Normal [facility] CNOVon 01-09-2018 CNOV Office Visit (SLPBTH ) -------- MINDY ROSARIO III ([id number]) 1960 M Date Time Provider Department 01/09/18 8:00 PM SLEEP LAB BATH BED 2 SLPBTH During your visit today, we recorded the following information about you: System, Provider Left [facility] 10/08/2018 1:15 PM Signed This note is incomplete and has been administratively closed. Referring Provider: PRERNA LEMUS [[id number]] Allergies As of Date: 01/09/2018 Noted Allergy [...] SYSTEM, PROVIDER LEFT CLOSED on 10/08/18 Normal [facility] Vital Signs Date Time Vital Sign Value Performing Clinician Facility 04-05-2025 16:39-0400 Body temperature 97.8 [degF] Dr. Prerna Lemus DO Work Phone: [facility] 04-05-2025 16:39-0400 Diastolic blood pressure 113 mm[Hg] Dr. Prerna Lemus DO Work Phone: [facility] 04-05-2025 16:39-0400 Heart rate 77 /min Dr. Prerna Lemus DO Work Phone: [facility] 04-05-2025 16:39-0400 Respiratory rate 20 /min Dr. Prerna Lemus DO Work Phone: [facility] 04-05-2025 16:39-0400 SaO2% (BldA) [Mass fraction] 97 % Dr. Prerna Lemus DO Work Phone: [facility] 04-05-2025 16:39-0400 Systolic blood pressure 192 mm[Hg] Dr. Prerna Lemus DO Work Phone: [facility] 04-05-2025 12:28-0400 Body height 177.[address] Prerna Lemus DO Work Phone: [facility] 04-05-2025 12:28-0400 Body mass index (BMI) [Ratio] 24.2 kg/m2 Dr. Prerna Lemus DO Work Phone: [facility] 04-05-2025 12:28-0400 Body weight 76.[address] Prerna Lemus DO Work Phone: [facility] 12-05-2024 00:43-0400 Body temperature 98 [degF] Dr. Prerna Lemus DO Work Phone: [facility] 12-05-2024 00:43-0400 Diastolic blood pressure 100 mm[Hg] Dr. Prerna Lemus DO Work Phone: [facility] 12-05-2024 00:43-0400 Heart rate 97 /min Dr. Prerna Lemus DO Work Phone: [facility] 12-05-2024 00:43-0400 Respiratory rate 18 /min Dr. Prerna Lemus DO Work Phone: [facility] 12-05-2024 00:43-0400 SaO2% (BldA) [Mass fraction] 97 % Dr. Prerna Lemus DO Work Phone: [facility] 12-05-2024 00:43-0400 Systolic blood pressure 156 mm[Hg] Dr. Prerna Lemus DO Work Phone: [facility] 12-04-2024 18:36-0400 Body height 177.[address] Prerna Lemus DO Work Phone: [facility] 12-04-2024 18:36-0400 Body mass index (BMI) [Ratio] 23.6 kg/m2 Dr. Prerna Lemus DO Work Phone: [facility] 12-04-2024 18:36-0400 Body weight 74.[address] Prerna Lemus DO Work Phone: [facility] 11-13-2024 15:33-0500 Body temperature 98.1 [degF] Dr. Prerna Lemus DO Work Phone: [facility] 11-13-2024 15:33-0500 Diastolic blood pressure 92 mm[Hg] Dr. Prerna Lemus DO Work Phone: [facility] 11-13-2024 15:33-0500 Heart rate 69 /min Dr. Prerna Lemus DO Work Phone: [facility] 11-13-2024 15:33-0500 Respiratory rate 18 /min Dr. Prerna Lemus DO Work Phone: [facility] 11-13-2024 15:33-0500 SaO2% (BldA) [Mass fraction] 98 % Dr. Prerna Lemus DO Work Phone: [facility] 11-13-2024 15:33-0500 Systolic blood pressure 157 mm[Hg] Dr. Prerna Lemus DO Work Phone: [facility] 11-13-2024 07:59-0500 Body mass index (BMI) [Ratio] 23.8 kg/m2 Dr. Prerna Lemus DO Work Phone: [facility] 11-13-2024 07:59-0500 Body weight 75.[address] Prerna Lemus DO Work Phone: [facility] 10-23-2024 15:31-0500 Body temperature 98 [degF] Dr. Prerna Lemus DO Work Phone: [facility] 10-23-2024 15:31-0500 Diastolic blood pressure 78 mm[Hg] Dr. Prerna Lemus DO Work Phone: [facility] 10-23-2024 15:31-0500 Heart rate 86 /min Dr. Prerna Lemus DO Work Phone: [facility] 10-23-2024 15:31-0500 Respiratory rate 18 /min Dr. Prerna Lemus DO Work Phone: [facility] 10-23-2024 15:31-0500 SaO2% (BldA) [Mass fraction] 100 % Dr. Prerna Lemus DO Work Phone: [facility] 10-23-2024 15:31-0500 Systolic blood pressure 149 mm[Hg] Dr. Prerna Lemus DO Work Phone: [facility] 10-23-2024 11:20-0500 Body mass index (BMI) [Ratio] 24.8 kg/m2 Dr. Prerna Lemus DO Work Phone: [facility] 10-23-2024 11:20-0500 Body weight 78.[address] Prerna Lemus DO Work Phone: [facility] 10-20-2024 13:03-0500 Body mass index (BMI) [Ratio] 25 kg/m2 Dr. Prerna Lemus DO Work Phone: [facility] 10-20-2024 13:03-0500 Body temperature 98 [degF] Dr. Prerna Lemus DO Work Phone: [facility] 10-20-2024 13:03-0500 Body weight 78.[address] Prerna Lemus DO Work Phone: [facility] 10-20-2024 13:03-0500 Diastolic blood pressure 88 mm[Hg] Dr. Prerna Lemus DO Work Phone: [facility] 10-20-2024 13:03-0500 Heart rate 98 /min Dr. Prerna Lemus DO Work Phone: [facility] 10-20-2024 13:03-0500 Respiratory rate 15 /min Dr. Prerna Lemus DO Work Phone: [facility] 10-20-2024 13:03-0500 SaO2% (BldA) [Mass fraction] 97 % Dr. Prerna Lemus DO Work Phone: [facility] 10-20-2024 13:03-0500 Systolic blood pressure 132 mm[Hg] Dr. Prerna Lemus DO Work Phone: [facility] 10-18-2024 08:18-0500 SaO2% (BldA) [Mass fraction] 96 % Dr. Prerna Lemus DO Work Phone: [facility] 10-18-2024 08:15-0500 Heart rate 77 /min Dr. Prerna Lemus DO Work Phone: [facility] 10-18-2024 08:10-0500 Body temperature 98.1 [degF] Dr. Prerna Lemus DO Work Phone: [facility] 10-18-2024 08:10-0500 Diastolic blood pressure 86 mm[Hg] Dr. Prerna Lemus DO Work Phone: [facility] 10-18-2024 08:10-0500 Respiratory rate 18 /min Dr. Prerna Lemus DO Work Phone: [facility] 10-18-2024 08:10-0500 Systolic blood pressure 144 mm[Hg] Dr. Prerna Lemus DO Work Phone: [facility] 10-18-2024 06:00-0500 Body mass index (BMI) [Ratio] 23.9 kg/m2 Dr. Prerna Lemus DO Work Phone: [facility] 10-18-2024 06:00-0500 Body weight 75.[address] Prerna Lemus DO Work Phone: [facility] 10-16-2024 15:29-0500 Body temperature 97.9 [degF] Dr. Prerna Lemus DO Work Phone: [facility] 10-16-2024 15:29-0500 Diastolic blood pressure 67 mm[Hg] Dr. Prerna Lemus DO Work Phone: [facility] 10-16-2024 15:29-0500 Heart rate 93 /min Dr. Prerna Lemus DO Work Phone: [facility] 10-16-2024 15:29-0500 Respiratory rate 16 /min Dr. Prerna Lemus DO Work Phone: [facility] 10-16-2024 15:29-0500 SaO2% (BldA) [Mass fraction] 95 % Dr. Prerna Lemus DO Work Phone: [facility] 10-16-2024 15:29-0500 Systolic blood pressure 130 mm[Hg] Dr. Prerna Lemus DO Work Phone: [facility] 10-16-2024 12:53-0500 Body mass index (BMI) [Ratio] 25.4 kg/m2 Dr. Prerna Lemus DO Work Phone: [facility] 10-16-2024 12:53-0500 Body weight 80.[address] Prerna Lemus DO Work Phone: [facility] 10-03-2024 17:32-0500 Body temperature 98.2 [degF] Dr. Prerna Lemus DO Work Phone: [facility] 10-03-2024 17:32-0500 Diastolic blood pressure 85 mm[Hg] Dr. Prerna Lemus DO Work Phone: [facility] 10-03-2024 17:32-0500 Heart rate 83 /min Dr. Prerna Lemus DO Work Phone: [facility] 10-03-2024 17:32-0500 Respiratory rate 16 /min Dr. Prerna Lemus DO Work Phone: [facility] 10-03-2024 17:32-0500 SaO2% (BldA) [Mass fraction] 99 % Dr. Prerna Lemus DO Work Phone: [facility] 10-03-2024 17:32-0500 Systolic blood pressure 124 mm[Hg] Dr. Prerna Lemus DO Work Phone: [facility] 10-03-2024 14:46-0500 Body mass index (BMI) [Ratio] 25 kg/m2 Dr. Prerna Lemus DO Work Phone: [facility] 10-03-2024 14:46-0500 Body weight 78.[address] Prerna Lemus DO Work Phone: [facility] 09-22-2024 13:31-0500 Body mass index (BMI) [Ratio] 24.5 kg/m2 Dr. Prerna Lemus DO Work Phone: [facility] 09-22-2024 13:31-0500 Body temperature 97.8 [degF] Dr. Prerna Lemus DO Work Phone: [facility] 09-22-2024 13:31-0500 Body weight 77.[address] Prerna Lemus DO Work Phone: [facility] 09-22-2024 13:31-0500 Diastolic blood pressure 80 mm[Hg] Dr. Prerna Lemus DO Work Phone: [facility] 09-22-2024 13:31-0500 Heart rate 96 /min Dr. Prerna Lemus DO Work Phone: [facility] 09-22-2024 13:31-0500 Respiratory rate 17 /min Dr. Prerna Lemus DO Work Phone: [facility] 09-22-2024 13:31-0500 SaO2% (BldA) [Mass fraction] 98 % Dr. Prerna Lemus DO Work Phone: [facility] 09-22-2024 13:31-0500 Systolic blood pressure 140 mm[Hg] Dr. Prerna Lemus DO Work Phone: [facility] 09-03-2024 15:45-0500 Body temperature 98 [degF] Dr. Prerna Lemus DO Work Phone: [facility] 09-03-2024 15:45-0500 Diastolic blood pressure 96 mm[Hg] Dr. Prerna Lemus DO Work Phone: [facility] 09-03-2024 15:45-0500 Heart rate 90 /min Dr. Prerna Lemus DO Work Phone: [facility] 09-03-2024 15:45-0500 Respiratory rate 16 /min Dr. Prerna Lemus DO Work Phone: [facility] 09-03-2024 15:45-0500 SaO2% (BldA) [Mass fraction] 96 % Dr. Prerna Lemus DO Work Phone: [facility] 09-03-2024 15:45-0500 Systolic blood pressure 144 mm[Hg] Dr. Prerna Lemus DO Work Phone: [facility] 09-03-2024 13:47-0500 Body weight 77.[address] Prerna Lemus DO Work Phone: [facility] 09-03-2024 03:48-0500 Body mass index (BMI) [Ratio] 24.5 kg/m2 Dr. Prerna Lemus DO Work Phone: [facility] 08-14-2024 13:32-0500 Body mass index (BMI) [Ratio] 26.2 kg/m2 Dr. Prerna Lemus DO Work Phone: [facility] 08-14-2024 13:32-0500 Body temperature 98.2 [degF] Dr. Prerna Lemus DO Work Phone: [facility] 08-14-2024 13:32-0500 Body weight 83.[address] Prerna Lemus DO Work Phone: [facility] 08-14-2024 13:32-0500 Diastolic blood pressure 80 mm[Hg] Dr. Prerna Lemus DO Work Phone: [facility] 08-14-2024 13:32-0500 Heart rate 79 /min Dr. Prerna Lemus DO Work Phone: [facility] 08-14-2024 13:32-0500 Respiratory rate 17 /min Dr. Prerna Lemus DO Work Phone: [facility] 08-14-2024 13:32-0500 SaO2% (BldA) [Mass fraction] 98 % Dr. Prerna Lemus DO Work Phone: [facility] 08-14-2024 13:32-0500 Systolic blood pressure 128 mm[Hg] Dr. Prerna Lemus DO Work Phone: [facility] 01-26-2024 17:10-0400 Body temperature 98.2 [degF] [facility] 01-26-2024 17:10-0400 Diastolic blood pressure 78 mm[Hg] [facility] 01-26-2024 17:10-0400 Heart rate 71 /min [facility] 01-26-2024 17:10-0400 Respiratory rate 16 /min [facility] 01-26-2024 17:10-0400 SaO2% (BldA) [Mass fraction] 99 % [facility] 01-26-2024 17:10-0400 Systolic blood pressure 142 mm[Hg] [facility] 01-26-2024 12:38-0400 Body height 177.8 cm [facility] 01-26-2024 12:38-0400 Body mass index (BMI) [Ratio] 27.2 kg/m2 [facility] 01-26-2024 12:38-0400 Body weight 86.18 kg [facility] 01-16-2024 15:41-0400 Body temperature 98 [degF] [facility] 01-16-2024 15:41-0400 Diastolic blood pressure 83 mm[Hg] [facility] 01-16-2024 15:41-0400 Heart rate 75 /min [facility] 01-16-2024 15:41-0400 Respiratory rate 18 /min [facility] 01-16-2024 15:41-0400 SaO2% (BldA) [Mass fraction] 92 % [facility] 01-16-2024 15:41-0400 Systolic blood pressure 154 mm[Hg] [facility] 01-16-2024 10:47-0400 Body height 178 cm [facility] 01-16-2024 10:47-0400 Body mass index (BMI) [Ratio] 28.3 kg/m2 [facility] 01-16-2024 10:47-0400 Body weight 89.94 kg [facility] 12-25-2023 13:21-0400 Body temperature 98.6 [degF] [facility] 12-25-2023 13:21-0400 Diastolic blood pressure 85 mm[Hg] [facility] 12-25-2023 13:21-0400 Heart rate 88 /min [facility] 12-25-2023 13:21-0400 Respiratory rate 14 /min [facility] 12-25-2023 13:21-0400 SaO2% (BldA) [Mass fraction] 97 % [facility] 12-25-2023 13:21-0400 Systolic blood pressure 135 mm[Hg] [facility] 12-18-2023 11:30-0400 Body height 177.8 cm [facility] 12-17-2023 13:24-0400 Body temperature 97.8 [degF] [facility] 12-17-2023 13:24-0400 Body weight 91.79 kg [facility] 12-17-2023 13:24-0400 Diastolic blood pressure 78 mm[Hg] [facility] 12-17-2023 13:24-0400 Heart rate 98 /min PRERNAKELLY LEMUS [facility] 12-17-2023 13:24-0400 Respiratory rate 14 /[facility] 12-17-[facility]23 13:24-0400 SaO2% (BldA) [Mass fraction] 98 % [facility] 12-17-2023 13:24-0400 Systolic blood pressure 115 mm[Hg] [facility] 09-06-2023 18:00-0500 Respiratory rate 18 /min No Primary Care Physician [facility] 09-06-2023 18:00-0500 SaO2% (BldA) [Mass fraction] 100 % No Primary Care Physician [facility] 09-06-2023 16:00-0500 Heart rate 65 /min No Primary Care Physician [facility] 09-06-2023 11:51-0500 Body height 177.8 cm No Primary Care Physician [facility] 09-06-2023 11:51-0500 Body mass index (BMI) [Ratio] 28.2 kg/m2 No Primary Care Physician [facility] 09-06-2023 11:51-0500 Body temperature 98.2 [degF] No Primary Care Physician [facility] 09-06-2023 11:51-0500 Body weight 89.3 kg No Primary Care Physician [facility] 09-06-2023 11:51-0500 Diastolic blood pressure 118 mm[Hg] No Primary Care Physician [facility] 09-06-2023 11:51-0500 Systolic blood pressure 168 mm[Hg] No Primary Care Physician [facility] 08-22-2023 07:57-0500 Body mass index (BMI) [Ratio] 28.3 kg/m2 No Primary Care Physician [facility] 08-22-2023 07:57-0500 Body temperature 98.6 [degF] No Primary Care Physician [facility] 08-22-2023 07:57-0500 Body weight 89.52 kg No Primary Care Physician [facility] 08-22-2023 07:57-0500 Diastolic blood pressure 88 mm[Hg] No Primary Care Physician [facility] 08-22-2023 07:57-0500 Heart rate 91 /min No Primary Care Physician [facility] 08-22-2023 07:57-0500 Respiratory rate 17 /min No Primary Care Physician [facility] 08-22-2023 07:57-0500 SaO2% (BldA) [Mass fraction] 98 % No Primary Care Physician [facility] 08-22-2023 07:57-0500 Systolic blood pressure 142 mm[Hg] No Primary Care Physician [facility] 07-04-2023 09:32-[address] SOBEIDA JOHNS MD [facility] 07-04-2023 09:32-0400 Body temperature 97.34 [degF] DR SOBEIDA JOHNS MD [facility] 07-04-2023 09:32-0400 Diastolic Blood Pressure Non-Invasive [address] SOBEIDA JOHNS MD [facility] 07-04-2023 09:32-0400 Heart rate 65 /min DR SOBEIDA JOHNS MD [facility] 07-04-2023 09:32-0400 Respiratory rate 12 /min DR SOBEIDA JOHNS MD [facility] 07-04-2023 09:32-0400 Systolic Blood Pressure Non-Invasive [address] SOBEIDA JOHNS MD [facility] 07-04-2023 09:09-0400 Body temperature 97.16 [degF] DR SOBEIDA JOHNS MD [facility] 07-04-2023 09:09-0400 Diastolic Blood Pressure Non-Invasive [address] SOBEIDA JOHNS MD [facility] 07-04-2023 09:09-0400 Heart rate 74 /min DR SOBEIDA JOHNS MD [facility] 07-04-2023 09:09-0400 Respiratory rate 19 /min DR SOBEIDA JOHNS MD [facility] 07-04-2023 09:09-0400 Systolic Blood Pressure Non-Invasive [address] SOBEIDA JOHNS MD [facility] 07-04-2023 09:00-0400 Diastolic Blood Pressure Non-Invasive [address] SOBEIDA JOHNS MD [facility] 07-04-2023 09:00-0400 Heart rate 75 /min DR SOBEIDA JOHNS MD [facility] 07-04-2023 08:55-0400 Respiratory Rate - Anes 22 br/min DR SOBEIDA JOHNS MD [facility] 07-04-2023 08:50-0400 Respiratory Rate - Anes 27 br/min DR SOBEIDA JOHNS MD [facility] 07-04-2023 07:48-[address] SOBEIDA JOHNS MD [facility] 07-04-2023 07:48-0400 Body height 177.[address] SOBEIDA JOHNS MD [facility] 07-04-2023 07:48-0400 Body temperature 98.24 [degF] DR SOBEIDA JOHNS MD [facility] 07-04-2023 07:48-0400 Body weight 88.[address] SOBEIDA JOHNS MD [facility] 07-04-2023 07:48-0400 Body weight 28.03 kg/m2 DR SOBEIDA JOHNS MD [facility] 07-04-2023 07:48-0400 Heart rate 79 /min DR SOBEIDA JOHNS MD [facility] 07-04-2023 07:48-0400 Respiratory rate 12 /min DR SOBEIDA JOHNS MD [facility] 06-18-2023 18:53-0400 Diastolic blood pressure 76 mm[Hg] No Primary Care Physician [facility] 06-18-2023 18:53-0400 Heart rate 88 /min No Primary Care Physician [facility] 06-18-2023 18:53-0400 Respiratory rate 16 /min No Primary Care Physician [facility] 06-18-2023 18:53-0400 SaO2% (BldA) [Mass fraction] 94 % No Primary Care Physician [facility] 06-18-2023 18:53-0400 Systolic blood pressure 148 mm[Hg] No Primary Care Physician [facility] 06-18-2023 14:33-0400 Body temperature 97.6 [degF] No Primary Care Physician [facility] 04-08-2023 11:15-0400 Body temperature 99.14 [degF] Laura Hou Other Phone: [facility] 04-08-2023 11:15-0400 Diastolic blood pressure 86 mm[Hg] Laura Hou Other Phone: [facility] 04-08-2023 11:15-0400 Heart rate 54 /min Laura Hou Other Phone: [facility] 04-08-2023 11:15-0400 Respiratory rate 19 /min Laura Hou Other Phone: [facility] 04-08-2023 11:15-0400 SaO2% (BldA) [Mass fraction] 96 % Laura Hou Other Phone: [facility] 04-08-2023 11:15-0400 Systolic blood pressure 149 mm[Hg] Laura Hou Other Phone: [facility] 04-08-2023 08:18-0400 Body weight 82.1 kg Laura Hou Other Phone: [facility] 04-06-2023 20:36-0400 Body temperature 98.24 [degF] BILLIE BARRETO MD FACP [facility] 04-06-2023 20:36-0400 Diastolic Blood Pressure Non-Invasive 84 1 BILLIE BARRETO MD FACP [address] [place] [address] 04-06-2023 20:36-0400 Heart rate 66 /min BILLIE BARRETO MD FACP [address] 04-06-2023 20:36-0400 Respiratory rate 20 /min BILLIE BARRETO MD FACP [facility] 04-06-2023 20:36-0400 Systolic Blood Pressure Non-Invasive 161 1 BILLIE BARRETO MD FACP [facility] 04-06-2023 20:14-0400 Body height 177.8 cm BILLIE BARRETO MD FACP [facility] 04-06-2023 20:14-0400 Body weight 84.1 kg BILLIE BARRETO MD FACP [facility] 04-06-2023 20:14-0400 Body weight 26.6 kg/m2 BILLIE BARRETO MD FACP [facility] 04-06-2023 17:45-0400 Diastolic Blood Pressure Non-Invasive 74 1 JAMEL MARCUS MD [facility] 04-06-2023 17:45-0400 Heart rate 83 /min JAMEL MARCUS MD [facility] 04-06-2023 17:45-0400 Respiratory rate 18 /min JAMEL MARCUS MD [facility] 04-06-2023 17:45-0400 Systolic Blood Pressure Non-Invasive 140 1 JAMEL MARCUS MD [facility] 04-06-2023 15:32-0400 Diastolic Blood Pressure Non-Invasive 72 1 JAMEL MARCUS MD [facility] 04-06-2023 15:32-0400 Heart rate 86 /min JAMEL MARCUS MD [facility] 04-06-2023 15:32-0400 Respiratory rate 18 /min JAMEL MARCUS MD [facility] 04-06-2023 15:32-0400 Systolic Blood Pressure Non-Invasive 139 1 JAMEL MARCUS MD [facility] 04-06-2023 12:50-0400 Diastolic Blood Pressure Non-Invasive 73 1 JAMEL MARCUS MD [facility] 04-06-2023 12:50-0400 Heart rate 78 /min JAMEL MARCUS MD [facility] 04-06-2023 12:50-0400 Respiratory rate 16 /min JAMEL MARCUS MD [facility] 04-06-2023 12:50-0400 Systolic Blood Pressure Non-Invasive 138 1 JAMEL MARCUS MD [facility] 04-06-2023 05:15-0400 Reason For Taking VItal Signs JAMEL MARCUS MD [facility] 04-06-2023 04:33-0400 Body height 177.8 cm JAMEL MARCUS MD [facility] 04-06-2023 04:33-0400 Body temperature 98.24 [degF] JAMEL MARCUS MD [facility] 04-06-2023 04:33-0400 Body weight 86.4 kg JAMEL MARCUS MD [facility] 03-27-2023 16:23-0400 Diastolic Blood Pressure Non-Invasive 78 1 JOSEPH LLAMAS MD [facility] 03-27-2023 16:23-0400 Heart rate 68 /min JOSEPH LLAMAS MD [facility] 03-27-2023 16:23-0400 Respiratory rate 18 /min JOSEPH LLAMAS MD [facility] 03-27-2023 16:23-0400 Systolic Blood Pressure Non-Invasive 149 1 JOSEPH LLAMAS MD [facility] 03-27-2023 15:42-0400 Diastolic Blood Pressure Non-Invasive 90 1 JOSEPH LLAMAS MD [facility] 03-27-2023 15:42-0400 Heart rate 70 /min JOSEPH LLAMAS MD [facility] 03-27-2023 15:42-0400 Respiratory rate 18 /min JOSEPH LLAMAS MD [facility] 03-27-2023 15:42-0400 Systolic Blood Pressure Non-Invasive 160 1 JOSEPH LLAMAS MD [facility] 03-27-2023 14:24-0400 Body height 177.8 cm JOSEPH LLAMAS MD [facility] 03-27-2023 14:24-0400 Body temperature 98.6 [degF] JOSEPH LLAMAS MD [facility] 03-27-2023 14:24-0400 Body weight 90.9 kg JOSEPH LLAMAS MD [facility] 03-27-2023 14:24-0400 Diastolic Blood Pressure Non-Invasive 97 1 JOSEPH LLAMAS MD [facility] 03-27-2023 14:24-0400 Heart rate 90 /min JOSEPH LLAMAS MD [facility] 03-27-2023 14:24-0400 Respiratory rate 20 /min JOSEPH LLAMAS MD [facility] 03-27-2023 14:24-0400 Systolic Blood Pressure Non-Invasive 129 1 JOSEPH LLAMAS MD [facility] 03-09-2023 08:36-[address] CLARISSE QUEEN MD [facility] 03-09-2023 08:36-[address] CLARISSE QUEEN MD [facility] 03-09-2023 08:36-0400 Diastolic Blood Pressure Non-Invasive [address] CLARISSE QUEEN MD [facility] 03-09-2023 08:36-0400 Heart rate 97 /min DR CLARISSE QUEEN MD [facility] 03-09-2023 08:36-0400 Respiratory rate 18 /min DR CLARISSE QUEEN MD [facility] 03-09-2023 08:36-0400 Systolic Blood Pressure Non-Invasive [address] CLARISSE QUEEN MD [facility] 03-09-2023 05:47-0400 Diastolic Blood Pressure Non-Invasive [address] CLARISSE QUEEN MD [facility] 03-09-2023 05:47-0400 Heart rate 92 /min DR CLARISSE QUEEN MD [facility] 03-09-2023 05:47-0400 Respiratory rate 18 /min DR CLARISSE QUEEN MD [facility] 03-09-2023 05:47-0400 Systolic Blood Pressure Non-Invasive [address] CLARISSE QUEEN MD [facility] 03-09-2023 05:30-0400 Heart rate 102 /min DR CLARISSE QUEEN MD [facility] 03-09-2023 04:50-04[address] Blood Pressure Cuff Size DR CLARISSE QUEEN MD [facility] 03-09-2023 04:50-[address] CLARISSE QUEEN MD [facility] 03-09-2023 04:50-[address] CLARISSE QUEEN MD [facility] 03-09-2023 04:50-0400 Body height 177.[address] CLARISSE QUEEN MD [facility] 03-09-2023 04:50-0400 Body temperature 97.34 [degF] DR CLARISSE QUEEN MD [facility] 03-09-2023 04:50-0400 Body weight 88.[address] CLARISSE QUEEN MD [facility] 03-09-2023 04:50-0400 Diastolic Blood Pressure Non-Invasive [address] CLARISSE QUEEN MD [facility] 03-09-2023 04:50-0400 Reason For Taking VItal Signs DR CLARISSE QUEEN MD [facility] 03-09-2023 04:50-0400 Respiratory rate 22 /min DR CLARISSE QUEEN MD [facility] 03-09-2023 04:50-0400 Systolic Blood Pressure Non-Invasive [address] CLARISSE QUEEN MD [facility] 03-08-2023 12:14-0400 Body height 177.8 cm [facility] 03-08-2023 12:14-0400 Body temperature 97.4 [degF] [facility] 03-08-2023 12:14-0400 Diastolic blood pressure 124 mm[Hg] [facility] 03-08-2023 12:14-0400 Heart rate 120 /min [facility] 03-08-2023 12:14-0400 Respiratory rate 18 /min [facility] 03-08-2023 12:14-0400 SaO2% (BldA) [Mass fraction] 98 % [facility] 03-08-2023 12:14-0400 Systolic blood pressure 155 mm[Hg] [facility] 01-01-2023 18:21-0400 Diastolic blood pressure 103 mm[Hg] [facility] 01-01-2023 18:21-0400 Systolic blood pressure 170 mm[Hg] [facility] 01-01-2023 15:14-0400 Heart rate 81 /min [facility] 01-01-2023 15:14-0400 Respiratory rate 12 /min [facility] 01-01-2023 15:14-0400 SaO2% (BldA) [Mass fraction] 97 % [facility] 01-01-2023 13:15-0400 Body height 177.8 cm [facility] 01-01-2023 13:15-0400 Body mass index (BMI) [Ratio] 30.1 kg/m2 [facility] 01-01-2023 13:15-0400 Body temperature 96.9 [degF] [facility] 01-01-2023 13:15-0400 Body weight 95.25 kg [facility] 12-28-2022 00:04-0400 Diastolic blood pressure 89 mm[Hg] [facility] 12-28-2022 00:04-0400 Heart rate 87 /min [facility] 12-28-2022 00:04-0400 Respiratory rate 20 /min [facility] 12-28-2022 00:04-0400 SaO2% (BldA) [Mass fraction] 98 % [facility] 12-28-2022 00:04-0400 Systolic blood pressure 166 mm[Hg] [facility] 12-27-2022 19:07-0400 Body mass index (BMI) [Ratio] 27.1 kg/m2 [facility] 12-27-2022 19:07-0400 Body weight 85.6 kg [facility] 12-27-2022 15:32-0400 Body height 177.8 cm [facility] 12-27-2022 15:32-0400 Body temperature 96 [degF] [facility] 12-06-2022 14:02-0400 Diastolic blood pressure 86 mm[Hg] [facility] 12-06-2022 14:02-0400 Heart rate 72 /min [facility] 12-06-2022 14:02-0400 Respiratory rate 18 /min [facility] 12-06-2022 14:02-0400 Systolic blood pressure 160 mm[Hg] [facility] 12-06-2022 12:19-0400 SaO2% (BldA) [Mass fraction] 98 % [facility] 12-06-2022 09:45-0400 Body height 177.8 cm [facility] 12-06-2022 09:45-0400 Body mass index (BMI) [Ratio] 28.7 kg/m2 [facility] 12-06-2022 09:45-0400 Body temperature 97 [degF] [facility] 12-06-2022 09:45-0400 Body weight 90.7 kg [facility] 11-17-2022 20:15-0500 Diastolic blood pressure 74 mm[Hg] [facility] 11-17-2022 20:15-0500 Heart rate 78 /min [facility] 11-17-2022 20:15-0500 Respiratory rate 18 /min [facility] 11-17-2022 20:15-0500 SaO2% (BldA) [Mass fraction] 97 % [facility] 11-17-2022 20:15-0500 Systolic blood pressure 132 mm[Hg] [facility] 11-17-2022 17:47-0500 Body height 177.8 cm [facility] 11-17-2022 17:47-0500 Body mass index (BMI) [Ratio] 28.7 kg/m2 [facility] 11-17-2022 17:47-0500 Body weight 90.71 kg [facility] 11-17-2022 15:35-0500 Body temperature 97.8 [degF] [facility] 11-11-2022 19:34-0500 Diastolic blood pressure 79 mm[Hg] [facility] 11-11-2022 19:34-0500 Heart rate 63 /min [facility] 11-11-2022 19:34-0500 Respiratory rate 18 /min [facility] 11-11-2022 19:34-0500 Systolic blood pressure 132 mm[Hg] [facility] 11-11-2022 18:52-0500 SaO2% (BldA) [Mass fraction] 92 % [facility] 11-11-2022 15:34-0500 Body mass index (BMI) [Ratio] 27.9 kg/m2 [facility] 11-11-2022 15:34-0500 Body temperature 97 [degF] [facility] 11-11-2022 15:34-0500 Body weight 88.3 kg [facility] 06-27-2022 22:24-0400 Diastolic blood pressure 96 mm[Hg] JOSEPH LLAMAS MD [facility] 06-27-2022 22:24-0400 Heart rate 80 /min JOSEPH LLAMAS MD [facility] 06-27-2022 22:24-0400 Respiratory rate 18 /min JOSEPH LLAMAS MD [facility] 06-27-2022 22:24-0400 Systolic blood pressure 146 mm[Hg] JOSEPH LLAMAS MD [facility] 06-27-2022 19:20-0400 Body temperature 98.06 [degF] JOSEPH LLAMAS MD [facility] 06-27-2022 19:20-0400 Diastolic blood pressure 92 mm[Hg] JOSEPH LLAMAS MD [facility] 06-27-2022 19:20-0400 Heart rate 90 /min JOSEPH LLAMAS MD [facility] 06-27-2022 19:20-0400 Respiratory rate 20 /min JOSEPH LLAMAS MD [facility] 06-27-2022 19:20-0400 Systolic blood pressure 169 mm[Hg] JOSEPH LLAMAS MD [facility] 06-25-2022 15:31-0400 Diastolic blood pressure 95 mm[Hg] HAN SAVAGE DO [facility] 06-25-2022 15:31-0400 Heart rate 120 /min HAN SAVAGE DO [facility] 06-25-2022 15:31-0400 Respiratory rate 18 /min HAN SAVAGE DO [facility] 06-25-2022 15:31-0400 Systolic blood pressure 145 mm[Hg] HAN SAVAGE DO [facility] 06-25-2022 14:25-0400 Body temperature 98.06 [degF] HAN SAVAGE DO [facility] 06-25-2022 14:25-0400 Diastolic blood pressure 101 mm[Hg] HAN SAVAGE DO [facility] 06-25-2022 14:25-0400 Heart rate 128 /min HAN SAVAGE DO [facility] 06-25-2022 14:25-0400 Respiratory rate 18 /min HAN SAVAGE DO [facility] 06-25-2022 14:25-0400 Systolic blood pressure 150 mm[Hg] HAN SAVAGE DO [facility] 06-17-2022 05:30-0400 Body temperature 98.06 [degF] DR LAURA BARROSO MD [facility] 06-17-2022 05:30-0400 Diastolic blood pressure 90 mm[Hg] DR LAURA BARROSO MD [facility] 06-17-2022 05:30-0400 Heart rate 80 /min DR LAURA BARROSO MD [facility] 06-17-2022 05:30-0400 Respiratory rate 18 /min DR LAURA BARROSO MD [facility] 06-17-2022 05:30-0400 Systolic blood pressure 148 mm[Hg] DR LAURA BARROSO MD [facility] Encounters Encounter Date Encounter Type Care Provider Facility Start: 04-05-2025 End: 04-05-2025 Emergency department patient visit Dr. Prerna Lemus DO Work Phone: -Emergency Department Work Phone: Start: 12-04-2024 End: 12-05-2024 Dr. Prerna Lemus DO Work Phone: -Emergency Department Work Phone: Start: 12-04-2024 End: 12-05-2024 Emergency department patient visit Dr. Prerna Lemus DO Work Phone: [facility] Work Phone: Start: 11-13-2024 Dr. Aracelis Roberson MD - [facility] Work Phone: Start: 11-13-2024 Aidenedward Baptiste [facility] Start: 11-13-2024 End: 11-13-2024 ambulatory Prerna R Robusto Facility:[facility] Start: 11-13-2024 End: 11-13-2024 Dr. Lori Xavier MD -[facility] Work Phone: Start: 11-12-2024 Dr. Aracelis Roberson MD - [facility] Work Phone: Start: 11-12-2024 Aidenedward Baptiste [facility] Start: 11-11-2024 Dr. Talib Diaz MD -[facility] Work Phone: Start: 11-10-2024 End: 11-13-2024 Evaluation and management of inpatient Prerna R Robusto Facility:[facility] Start: 11-10-2024 ambulatory Prerna R Robusto Facili ty:[facility] Start: 11-10-2024 End: 11-13-2024 Dr. Aracelis Roberson MD -[facility] Work Phone: Start: 10-23-2024 End: 10-23-2024 Dr. Henry Ortiz MD -Emergency Departm ent Work Phone: Start: 10-23-2024 End: 10-23-2024 Emergency department patient visit Prerna R Robusto Facility:[facility] Start: 10-20-2024 End: 10-20-2024 Dr. Fredi Angeles MD -[facility] Work Phone: Start: 10-20-2024 End: 10-20-2024 ambulatory Prerna R Robusto Facility:[facility] Start: 10-20-2024 End: 10-20-2024 ambulatory Prerna R Robusto Facility:[facility] Start: 10-18-2024 Dr. Mer Frias MD -[facility] Work Phone: Start: 10-17-2024 End: 10-18-2024 ambulatory Prerna R Robusto Facility:[facility] Start: 10-17-2024 End: 10-18-2024 Dr. Mer Frias MD -[facility] Work Phone: Start: 10-16-2024 End: 10-16-2024 Dr. Mindy Cooper DO -Emergency Departoh nt Work Phone: Start: 10-16-2024 End: 10-16-2024 Emergency department patient visit Prerna R Robusto Facility:[facility] Start: 10-03-2024 End: 10-03-2024 Dr. Dada Chung MD -Emergency Departmen t Work Phone: Start: 10-03-2024 End: 10-03-2024 Emergency department patient visit Prerna R Robusto Facility:[facility] Start: 09-22-2024 End: 09-22-2024 Dr. Fredi Angeles MD -[facility] Work Phone: Start: 09-22-2024 End: 09-22-2024 ambulatory Prerna R Robusto Facility:[facility] Start: 09-03-2024 Dr. Mirta Meza DO -[facility] Work Phone: Start: 09-02-2024 End: 09-03-2024 ambulatory Prerna Lemus Facility:[facility] Start: 09-02-2024 End: 09-03-2024 Dr. Mirta Meza DO -[facility] Work Phone: Start: 08-14-2024 End: 08-14-2024 Dr. Fredi Angeles MD -[facility] Work Phone: Start: 08-14-2024 End: 08-14-2024 ambulatory Prerna Lemus Facility:[facility] Start: 07-14-2024 End: 07-14-2024 ambulatory Prerna Lemus Facility:[facility] Start: 07-10-2024 End: 07-10-2024 Emergency department patient visit Prerna Lemus Facility:[facility] Start: 07-10-2024 End: 07-10-2024 Emergency department patient visit Prerna Lemus Facility:[facility] Start: 06-30-2024 End: 06-30-2024 Emergency department patient visit Prerna Lemus Facility:[facility] Start: 06-29-2024 End: 06-29-2024 Emergency department patient visit Prerna Lemus Facility:[facility] Start: 06-12-2024 End: 06-12-2024 ambulatory Ferdi Angeles Facility:[facility] Start: 05-12-2024 End: 05-12-2024 ambulatory Fredi Angeles Facility:[facility] Start: 01-26-2024 End: 01-26-2024 Emergency department patient visit PRERNA LEMUS [facility]-Emergency Department Work Phone: Start: 01-16-2024 End: 01-16-2024 Emergency department patient visit PRERNA LEMUS [facility] Work Phone: Start: 12-25-2023 End: 12-25-2023 ambulatory PRERNA LEMUS [facility] Work Phone: Start: 12-25-2023 End: 12-25-2023 Patient encounter procedure PRERNA LEMUS [facility] Work Phone: Start: 12-17-2023 End: 12-17-2023 ambulatory PRERNA LEMUS [facility] Work Phone: Start: 12-17-2023 End: 12-17-2023 Patient encounter procedure PRERNA LEMUS [facility] Work Phone: Start: 11-01-2023 End: 11-01-2023 ambulatory No Primary Care Physician [facility] Work Phone: Start: 11-01-2023 End: 11-01-2023 Patient encounter procedure No Primary Care Physician [facility]urology Work Phone: Start: 10-19-2023 End: 10-19-2023 ambulatory No Primary Care Physician [facility] Work Phone: Start: 10-19-2023 End: 10-19-2023 Patient encounter procedure No Primary Care Physician [facility] Work Phone: Start: 09-06-2023 End: 09-06-2023 Emergency department patient visit No Primary Care Physician [facility] Work Phone: Start: 08-22-2023 End: 08-22-2023 Patient encounter procedure No Primary Care Physician [facility] Work Phone: Start: 07-04-2023 End: 07-04-2023 ambulatory SOBEIDA JOHNS Facility:B Start: 07-04-2023 End: 07-04-[address] SOBEIDA JOHNS MD [facility] Start: 06-18-2023 End: 06-18-2023 Emergency department patient visit No Primary Care Physician [facility] Work Phone: Start: 04-07-2023 End: 04-08-2023 Evaluation and management of inpatient Ashlee Cardenas [facility] [id number] Rm [id number] Start: 04-06-2023 End: 04-07-2023 Evaluation and management of inpatient BILLIE BARRETO MD [facility] Facility:A Start: 04-06-2023 End: 04-06-2023 Evaluation and management of inpatient BILLIE BARRETO MD [facility] Start: 04-06-2023 End: 04-06-2023 Emergency department patient visit PRERNA LEMUS DO Facility:B Start: 04-06-2023 End: 04-06-2023 Emergency department patient visit JAMEL MARCUS MD [facility] Start: 03-27-2023 End: 03-27-2023 Emergency department patient visit JOSEPH LLAMAS MD Facility:B Start: 03-27-2023 End: 03-27-2023 Emergency department patient visit JOSEPH LLAMAS MD [facility] Start: 03-09-2023 End: 03-09-2023 Emergency department patient visit PRERNA LEMUS DO Facility:B Start: 03-09-2023 End: 03-09-2023 Emergency department patient visit DR CLARISSE QUEEN MD [facility] Start: 03-08-2023 End: 03-08-2023 Emergency department patient visit [facility] Start: 01-15-2023 End: 01-16-2023 ambulatory CHARLENE RIVAS APRN-PATIENT CARE ASSOCIATE Facility:B Start: 01-01-2023 End: 01-01-2023 ambulatory PRERNA Madison IMCHELLERandall Facility:[facility] Start: 01-01-2023 End: 01-01-2023 Patient encounter procedure Maddie Kearney MD Work Phone: [facility] Comment on above: Nausea and vomiting, unspecified vomiting type (Primary Dx) Start: 01-01-2023 End: 01-01-2023 Emergency department patient visit [facility] Start: 12-27-2022 End: 12-28-2022 Emergency department patient visit [facility] Start: 12-06-2022 End: 12-06-2022 Emergency department patient visit [facility] Start: 11-17-2022 End: 11-17-2022 Emergency department patient visit [facility] Start: 11-11-2022 End: 11-11-2022 Emergency department patient visit [facility] Start: 06-27-2022 End: 06-27-2022 Emergency department patient visit JOSEPH LLAMAS MD [facility] Start: 06-25-2022 End: 06-25-2022 Emergency department patient visit HAN SAVAGE DO [facility] Start: 06-17-2022 End: 06-17-2022 Emergency department patient visit DR LAURA BARROSO MD [facility] Start: 12-12-2018 End: 12-12-2018 Emergency department patient visit DESIREE GARG Facility:[id number] Start: 09-25-2018 End: 09-27-2018 Patient encounter procedure TRILOK HODGES Facility:[id number] Start: 09-09-2018 End: 09-09-2018 Emergency department patient visit SORAYANICA BARTONALYSE Facility:[id number] Start: 08-24-2018 End: 09-24-2018 Patient encounter procedure TRILOK HODGES Facility:[id number] Start: 07-25-2018 Patient encounter procedure TRILOK HODGES Facility:[id number] Start: 06-24-2018 Patient encounter procedure TRILOK HODGES Facility:[id number] Start: 06-14-2018 Patient encounter procedure TRILOK HODGES Facility:[id number] Start: 05-21-2018 Patient encounter procedure MAZEN JOSE L Facility:[id number] Start: 04-23-2018 Patient encounter MAZEN JOSE L Facil ity:[id number] Start: 04-19-2018 End: 04-19-2018 Emergency department patient visit MER GUARDADO Facility:[id number] Start: 04-15-2018 End: 04-17-2018 Evaluation and management of inpatient G DESIREE LEMUS Facility:[id number] Start: 03-12-2018 End: 03-13-2018 Patient encounter G DESIREE LEMUS Facility:[id number] Start: 03-08-2018 End: 03-08-2018 Emergency department patient visit MER GUARDADO Facility:[id number] Start: 01-09-2018 Ambulatory PRERNA KARSON Facility :[facility] Start: 10-27-2017 End: 10-27-2017 Emergency department patient visit CATHERINE DESOUZA Facility:[id number] Procedures Date Procedure Procedure Detail Performing Clinician Start: 04-05-2025 Urnls dip stick/tablet reagent auto microscopy Dr. Prerna Lemus DO Work Phone: Start: 04-05-[address] Bessie Lemus DO Work Phone: Start: 04-05-2025 Computed tomography of abdomen and pelvis with intravenous contrast Dr. Prerna Lemus DO Work Phone: Start: 12-04-2024 CT of abdomen and pelvis [...] on above: Performed By: #### T+S #### [facility] [address] [place] [address] Start: 04-07-2023 End: 04-07-2023 EKG impression Connie Josias Start: 12-06-2022 Computed tomography of abdomen and pelvis with intravenous contrast Arthroscopy of knee DR VAN JOHNS MD Comment on above: right Marti's esophagus (disorder) HAN SAVAGE DO Cholecystectomy HAN SAL DO Colonoscopy DR SOBEIDA CUEVA MD Coronary artery sten t (physical object) DR SOBEIDA JOHSN MD Comment on above: 7 stents Esophageal hiatus hernia repair DR SOBEIDA JOHNS MD Esophagogastroduodenoscopy D R SOBEIDA LIBERTIN MD H/O: surgery History of metal removed from eye No Primary Care Physician Hernia of abdominal cavity (disorder) DR CLARISSE QUEEN MD Wrist region structu re (body structure) DR CLARISSE QUEEN MD Comment on above: katelyn left wrist Plan of Treatment Date Care Activity Detail Author Start: 04-05-2025 [facility] Start: 12-05-2024 [facility] Start: 11-13-2024 Patient discharge [facility] Start: 11-12-2024 Referral to gastroenterology service [facility] Start: 11-12-2024 Chart related administrative procedure [facility] Start: 11-11-2024 Application of intermittent pneumatic compression device [facility] Start: 11-10-2024 Following clinical pathway protocol [facility] Start: 11-10-2024 Ambulation without limitation [facility] Start: 11-10-2024 Assessment of risk of venous thromboembolism [facility] Start: 11-10-2024 Insertion of catheter into peripheral vein [facility] Start: 11-10-2024 Providing care according to standard [facility] Start: 11-10-2024 [facility] Start: 11-10-2024 Admission procedure [facility] Start: 11-10-2024 Patient referral to dietitian [facility] Start: 10-18-2024 Patient discharge [facility] Start: 10-17-2024 Following clinical pathway protocol [facility] Start: 10-17-2024 Application of intermittent pneumatic compression device [facility] Start: 10-17-2024 Assessment of risk of venous thromboembolism [facility] Start: 10-17-2024 Inhalation therapy procedure [facility] Start: 10-17-2024 Insertion of catheter into peripheral vein [facility] Start: 10-17-2024 Introduction of urinary catheter [facility] Start: 10-17-2024 Measuring intake and output [facility] Start: 10-17-2024 Oxygen therapy [facility] Start: 10-17-2024 Providing care according to standard [facility] Start: 10-17-2024 Provision of activity privileges [facility] Start: 10-17-2024 Referral to service [facility] Start: 10-17-2024 Tobacco use cessation education [facility] Start: 10-17-2024 [facility] Start: 10-17-2024 Admission procedure [facility] Start: 10-16-2024 [facility] Start: 10-03-2024 [facility] Start: 10-03-2024 [facility] Start: 09-03-2024 Patient discharge [facility] Start: 09-03-2024 Admission procedure [facility] Start: 09-02-2024 End: 09-02-2024 Following clinical pathway protocol [facility] Start: 09-02-2024 Assessment of risk of venous thromboembolism [facility] Start: 09-02-2024 Incentive spirometry [facility] Start: 09-02-2024 Insertion of catheter into peripheral vein [facility] Start: 09-02-2024 Introduction of urinary catheter [facility] Start: 09-02-2024 Oxygen therapy [facility] Start: 09-02-2024 Providing care according to standard [facility] Start: 09-02-2024 Provision of activity privileges [facility] Start: 09-02-2024 Tobacco use cessation education [facility] Start: 09-02-2024 [facility] Start: 09-02-2024 Measuring intake and output [facility] Start: 09-02-2024 Admission procedure [facility] Start: 09-02-2024 Patient referral to dietitian [facility] Start: 01-26-2024 [facility] Start: 01-16-2024 [facility] Start: 09-06-2023 [facility] Start: 08-22-2023 Patient referral [facility] Work Phone: Start: 05-25-2023 Influenza vaccination INFLUENZA (Season Ended) [facility] Start: 04-07-2023 End: 04-07-2024 oxyCODONE Immediate Release 5 mg Oral Tablet Every 4 Hours ; Tablet (OXYIR, ROXICODONE)DOSE = 2.5 mg Oral Every 4 Hours, PRN Pain - Mod (4-6) Start: 07-Apr-2023 End: 06-Apr-2024 Ordered: 07-Apr-2023 Mindy Szymanski Intent [facility] Start: 04-07-2023 End: 04-07-2024 Ibuprofen 600 mg Oral Tablet Every 6 Hours PRN ; Tablet (ADVIL, MOTRIN)DOSE = 600 mg Oral Every 8 Hours Start: 07-Apr-2023 End: 06-Apr-2024 Ordered: 07-Apr-2023 Mindy Szymanski Intent [facility] Start: 04-07-2023 End: 04-07-2024 Ondansetron Injectable 4 mg IntraVenous Push Every 6 Hours PRN ; (ZOFRAN)DOSE = 4 mg IntraVenous Push Every 6 Hours, PRN Nausea and/or Vomiting Start: 07-Apr-2023 End: 06-Apr-2024 Ordered: 07-Apr-2023 Connie Torres Intent [facility] Start: 12-27-2022 [facility] Start: 11-13-2022 DIABETES SCREEN DIABETES SCREEN [facility] Start: 09-24-2022 DEPRESSION ASSESSMENT DEPRESSION ASSESSMENT [facility] Start: 12-14-2021 COVID-19 VACCINE (3 - Booster for Pfizer series) COVID-19 VACCINE (3 - Booster for Pfizer series) [facility] Start: 05-10-2016 PROSTATE CANCER SCREENING DISCUSSION PROSTATE CANCER SCREENING DISCUSSION [facility] Start: 2008 SHINGRIX VACCINE (1 of 2) SHINGRIX VACCINE (1 of 2) [facility] Start: 2003 COLOGUARD (FIT-DNA) COLOGUARD (FIT-DNA) [facility] Start: 2003 Colonoscopy COLONOSCOPY [facility] Start: 2003 COLORECTAL CANCER SCREENING COLORECTAL CANCER SCREENING [facility] Start: [address] COLONOGRAPHY [facility] Start: 2003 FECAL OCCULT BLOOD FECAL OCCULT BLOOD [facility] Start: 2003 SIGMOIDOSCOPY SIGMOIDOSCOPY [facility] Start: 1993 LIPID SCREEN LIPID SCREEN [facility] Start: 1977 Urine microalbumin profile DTAP,TDAP,TD (1 - Tdap) [facility] Start: 1976 ANNUAL PCP TEAM CHRONIC DISEASE VISIT ANNUAL PCP TEAM CHRONIC DISEASE VISIT [facility] Start: 1976 BP CONTROLLED (<130/80) BP CONTROLLED (<130/80) [facility] Start: 1976 Hepatitis B surface antibody level LDL CHOLESTEROL [facility] Start: 1976 HEPATITIS C SCREENING HEPATITIS C SCREENING [facility] Start: 1976 HIV SCREENING HIV SCREENING [facility] Complete blood count [facility] Electroencephalogram [facility] Folate [Mass/volume] in Serum or Plasma [facility] Intrinsic factor blo cking Ab [Units/volume] in Serum [facility] MR Brain WO and W contrast IV [facility] Patient Education [facility] Work Phone: Patient referral [facility] Work Phone: Thiamine measurement [facility] Thyroid stimulating hormone measurement [facility] Vitamin B12 measurement [facility] XR Orbit - bilateral Views for foreign body [facility] Immunizations Immunization Date Immunization Notes Care Provider [facility] 09-03-2024 influenza, high dose seasonal, preservative-free Dr. Prerna eLmus DO Work Phone: [facility] 03-31-2024 tetanus toxoid, redu chato diphtheria toxoid, and acellular pertussis vaccine, adsorbed Dr. Prerna Lemus DO Work Phone: [facility] 03-31-[address] Prerna Lemus DO Work Phone: [facility] 01-22-2024 Pneumococcal Vaccine PCV20 (Prevnar 20) Dr. Prerna Lemus DO Work Phone: [facility] 01-22-[address] Prerna Lemus DO Work Phone: [facility] 10-19-2021 Covid (Pfizer) Dr. Prerna fuentes DO Work Phone: [facility] 10-19-2021 influenza virus vacc ine, unspecified formulation DR CLARISSE QUEEN MD [facility] 10-19-2021 SARS-CoV-2 mRNA (otrzxyhvjym-oysq-ekkenl e) vaccine DR CLARISSE QUEEN MD [facility] 10-19-2021 Seasonal, quadrivale nt, recombinant, injectable influenza vaccine, preservative free Dr. Prerna Lemus DO Work Phone: [facility] 09-28-2021 SARS-CoV-2 mRNA (tozinameran) vaccine DR CLARISSE QUEEN MD [facility] 06-11-2019 influenza virus vacc ine, unspecified formulation DR CLARISSE QUEEN MD [facility] 06-11-2019 influenza, injectabl e, quadrivalent, preservative free Dr. Prerna Lemus DO Work Phone: [facility] 07-05-2018 influenza virus vacc ine, unspecified formulation DR CLARISSE QUEEN MD [facility] 07-05-2018 influenza, injectabl e, quadrivalent, preservative free Dr. Prerna Lemus DO Work Phone: [facility] 06-06-2017 influenza virus vacc ine, unspecified formulation DR CLARISSE QUEEN MD [facility] 06-06-2017 influenza, seasonal, injectable, preservative free Dr. Prerna Lemus DO Work Phone: [facility] 11-27-2015 influenza virus vacc ine, unspecified formulation DR CLARISSE QUEEN MD [facility] 11-27-2015 influenza, injectabl e, quadrivalent, preservative free Dr. Prerna Lemus DO Work Phone: [facility] 11-27-2015 pneumococcal polysaccharide vaccine, [address] CLARISSE QUEEN MD [facility] 06-28-2015 influenza virus vacc ine, unspecified formulation DR CLARISSE QUEEN MD [facility] 06-28-2015 influenza, injectabl e, quadrivalent, preservative free Dr. Prerna Lemus DO Work Phone: [facility] Payers Date Payer Category Payer Self-pay 2023 Private Health Insurance 101 [id number] 2023 Medicare [id number] 2022 Unknown [id number] 2021 Medicare [id number] 2008 Medicare 2008 Unknown [id number] 1958 Unknown [id number] 2.16.8 40.1.484979.3.579.2.159 1958 Unknown [id number] 2.16.8 40.1.667038.3.579.2.159 1958 Unknown [id number] 2.16.8 40.1.268569.3.579.2.159 1958 Unknown [id number] 2.16.8 40.1.107325.3.579.2.159 1958 Unknown [id number] 2.16.8 40.1.501202.3.579.2.159 1958 Unknown [id number] 2.16.8 40.1.212680.3.579.2.159 1958 Unknown [id number] 2.16.8 40.1.016212.3.579.2.159 1958 Unknown [id number] 2.16. 840.1.097727.3.579.2.356 1958 Unknown [id number] 2.16.8 40.1.734111.3.579.2.627 1958 Unknown [id number] 2.16.8 40.1.666216.3.579.2.62 1958 Unknown [id number] 2.16.8 40.1.920004.3.579.2.62 1958 Unknown [id number] 2.16.8 40.1.369844.3.579.2.62 1958 Unknown [id number] 2.16.8 40.1.048369.3.579.2.62 1958 Unknown [id number] 2.16.8 40.1.376908.3.579.2.627 Unknown [id number] Unknown [id number] 2.16.8 40.1.472888.3.579.2.462 Unknown [id number] 2.16.8 40.1.362455.3.579.2.462 Unknown [id number] 2.16.8 40.1.176076.3.579.2.462 Unknown [id number] 2.16.8 40.1.502785.3.579.2.462 Unknown [id number] 2.16.8 40.1.957698.3.579.2.462 Unknown [id number] 2.16.8 40.1.319733.3.579.2.462 Unknown [id number] 2.16.8 40.1.321749.3.579.2.462 Unknown [id number] 2.16.8 40.1.383242.3.579.2.462 Unknown [id number] 2.16.8 40.1.918651.3.579.2.462 Unknown [id number] 2.16.8 40.1.818035.3.579.2.462 Unknown [id number] 2.16.8 40.1.255763.3.579.2.462 Unknown [id number] 2.16.8 40.1.116633.3.579.2.462 Unknown [id number] 2.16.8 40.1.096291.3.579.2.462 Unknown [id number] 2.16.8 40.1.245961.3.579.2.462 Unknown [id number] 2.16.8 40.1.219042.3.579.2.462 Unknown [id number] 2.16.8 40.1.223231.3.579.2.462 Unknown [id number] 2.16.8 40.1.633639.3.579.2.462 Unknown [id number] 2.16.8 40.1.088565.3.579.2.462 Unknown [id number] 2.16.8 40.1.279678.3.579.2.462 Unknown [id number] 2.16.8 40.1.151108.3.579.2.462 Unknown [id number] 2.16.8 40.1.888360.3.579.2.462 Unknown [id number] 2.16.8 40.1.149922.3.579.2.462 Unknown [id number] 2.16.8 40.1.056659.3.579.2.462 Unknown [id number] 2.16.8 40.1.414160.3.579.2.462 Unknown [id number] 2.16.8 40.1.432009.3.579.2.462 Unknown [id number] 2.16.8 40.1.395682.3.579.2.462 Unknown [id number] 2.16.8 40.1.579362.3.579.2.462 Unknown [id number] 2.16.8 40.1.782376.3.579.2.462 Unknown [id number] 2.16.8 40.1.666301.3.579.2.462 Unknown [id number] 2.16.8 40.1.995134.3.579.2.462 Social History Date Type Detail Facility Tobacco smoking status [facility] Start: 1960 Sex Assigned At Male A [facility] Start: 06-25-2022 Tobacco smoking status Heavy t obacco smoker (finding) [facility] Start: 11-17-2022 End: 09-06-2023 Tobacco smoking status NHIS Unknown if ever smoked [facility] Start: 11-12-2019 Tobacco smoking stat us NHIS Ex-smoker [facility] Work Phone: End: 07-16-2001 History of tobacco use Current smoker [facility] Work Phone: End: 07-16-2001 History of tobacco use Cigarette Smoker [facility] Work Phone: History of tobacco use Cigar Smoker [facility] Work Phone: Start: 11-12-2019 Cigarettes smoked current (pack per day) - Reported 2 [facility] Start: 11-12-2019 Tobacco use and exposure Smokeless tobacco non-user [facility] Work Phone: Start: 11-13-2019 Alcohol intake 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) [facility] Start: 11-13-2019 History SDOH Financial 4 [facility] Start: 11-13-2019 History SDOH Food Worry 1 [facility] Start: 11-13-2019 History SDOH Transpo rt Med 2 [facility] Start: 1960 Sex Assigned At Not on file C [facility] Start: 01-15-2023 End: 04-05-2025 Tobacco smoking status Smokes tobacco daily (finding) [facility] Start: 12-05-2024 Sex Male (finding) [facility] Goals Date Patient Goal Desired Activity /State Functional Status Date Assessment Result Facility 11-13-2024 Functional status Ambulates;Up ad elba [facility] Work Phone: 10-18-2024 Functional status Bathroom Privilege [facility] Work Phone: 09-03-2024 Functional status Ambulates [facility] Work Phone: 07-04-2023 Functional Status Repositions self [facility] 07-04-2023 Functional Status Maintained, Less than 8 hours [facility] 04-06-2023 Functional Status Awake, Repositions self [facility] 04-06-2023 Functional Status Activity Parulaamir reyes Independent [facility] 04-06-2023 Functional Status Repositions se lf, Sleeping quietly with easy respirations [facility] 04-06-2023 Functional Status Aparna Mercedes [facility] 04-06-2023 Functional Status Aparna Mercedes [facility] 03-27-2023 Functional Status Up ad elba Aparna [facility] 03-27-2023 Functional Status Standard Safet y ID band on, Allergy Band on, Call device within reach, Bed in low position, Visitor at bedside [facility] 03-09-2023 [facility]-09[facility] Functional Status Ambulating in turner, Ambulating in room, Awake, Bathroom privileges [facility] 06-27-2022 [facility] 06-27-2022 Functional Status ID band on, Call device within reach, Bed in low position, Wheels locked, Visitor at bedside [facility] 06-25-2022 Functional Status Independent Aparna [facility] 06-25-2022 Functional Status Standard Safet y ID band on, Allergy Band on, Call device within reach, Bed in low position, Wheels locked, Upper/Half-Length side-rails up, Phone within reach, personal items within reach, Assistive devices within reach, Toileting device within reach, Bedside Cart Locked, Visitor at bedside, Safety level maintained [facility] 06-17-2022 Functional Status ID band on, Call device within reach, Bed in low position, Wheels locked, Upper/Half-Length side-rails up [facility] Functional observable [facility] Mental Status Date Assessment Result Facility 11-13-2024 Cognitive function Voice/Name [facility] Work Phone: 10-18-2024 Cognitive function Voice/Name [facility] Work Phone: 10-03-2024 Cognitive function Awake;Alert;Appropriat e [facility] Work Phone: 07-04-2023 Mental Status Oriented x 4 [facility] 04-07-2023 Cognitive functi ons [id number] [facility] 04-06-2023 Mental Status Oriented x 4 [facility] 04-06-2023 Mental Status Orientation Oriented x 4 [place] [facility] Status [facility] 04-06-2023 Mental Status [facility] 03-27[facility]23 Mental Status Orientation Oriented x 4 [facility] 03-27-2023 Mental Status [facility] 03-09-2023 Mental Status Orientation Oriented x 4 [facility] 03-09-2023 Mental Status [facility] 06-27-2022 Mental Status Orientation Oriented x 4 [facility] 06-27-2022 Mental Status [facility] 06-25-2022 Mental Status Orientation Oriented x 4 [facility] 06-25-2022 Mental Status [facility] 06-17-2022 Mental Status Oriented x 4 [facility] Clinical Notes 11-12-2019 to 04-05-2025 Note Date & Type Note Facility 04-05-2025 Radiology Diagnostic study note [facility] Imaging Services [address] [place], [place] [address] Abdomen/Pelvis W IV Cont ONLY MR#: [id number] Acct: [id number] Name: MINDY ROSARIO Rep #: [id number] : 1960 M 64 From: Reta Maya MD PCP: Dr. Prerna Lemus, DO Status: R EG ER Study:Abdomen/Pelvis W IV Cont ONLY Date of E xam: 04/05/25 Exam# [id number] Ordering Dr: Pieter Yoon DO PROCEDURE: ABDOMEN/PELVIS W IV CONT ONLY 04/05/2025 REASON FOR EXAM: ABDOMINAL PAIN TECHNIQUE: ABDOMEN/PELVIS W IV CONT ONLY Coronal and Sagittal reconstruction series were provided. CONTRAST: Isovue 370 VOLUME: 89 mL One or more dose reduction techniques were used (e.g., Automated exposure control, adjustment of the mA and/or kV according to patient size, use of iterative reconstruction technique. RADIATION DOSE SUMMARY: CTDlvol: 13.4 mGy DLP: 698 mGycm COMPARISON: CT abdomen and pelvis on 12/04/2024, 11/10/2024, and 06/30/2024 FINDINGS: Lung bases: Lung bases are clear. Multivessel coronary calcifications. Hiatal hernia, unchanged. Liver: Unremarkable Gallbladder: Surgically absent. Spleen: Scattered calcifications suggestive of prior granulomatous disease Pancreas: Normal size without evidence of mass surrounding inflammation or ductal dilation. Adrenals: Thickening of the adrenal glands, cgfyv-zpjsnnx-zrfz-left, is again unchanged. Kidneys: No hydronephrosis or radiodense stone. There are numerous simple cyststhroughout both kidneys. A hyperdense cyst in the interpolar region of the right kidney is also unchanged. A lesion at the interpolar region of the left kidney measuring 1.4 cm and 30 Hounsfield units (series 2, image 44) remains unchanged, and measured simple fluid density on prior exams suggesting density is artifactually increased on today's exam. Bladder: Mild circumferential wall thickening. Reproductive Organs: Unremarkable Bowel: Mildly prominent loops of air-filled small bowel in the anterior abdomen,without significant dilation or focal transition point to suggest obstruction. No significant inflammatory changes involving thebowel.. Appendix: Unremarkable Lymph nodes: No suspicious lymph node enlargement. Vasculature: Diffuse atherosclerotic calcifications are noted. Slight fusiform ectasia of the infrarenal abdominal aorta measuring up to 1.8 cm is unchanged. Bones: Degenerative changes of the spine. Soft tissues: Fluid in the right inguinal canal. CT/Abdomen/Pelvis W IV Cont ONLY IMPRESSION: 1. No definite acute intra-abdominal abnormality. There is mild circumferentialbladder wall thickening, correlate with urinalysis for evidence of cystitis. 2. Additional unchanged findings as detailed above. Reading Location: [id number] CC: Dr. Pieter Yoon, DO; Dr. Prerna Lemus, DO ~ Sales Planning Manager: Signed [facility] 12-04-2024 Radiology Diagnostic study note [facility] 11-21-2024 Hospital Discharge instructions Additional Instructions Urine creatinine 1.7 mL 0.8 last month. You are given 2 L of fluid. You are treated for your cyclic vomiting with improvement. Avoid marijuana. Use nausea medicine as needed. Use topical cream as needed. Follow-up with your doctor. Follow-up with cardiology for your transient SVT. [facility] Work Phone: 11-13-2024 Note [facility] 11-10-2024 Note [facility] 10-18-2024 Note [facility] 09-03-2024 Note [facility] 08-14-2024 Evaluation note Diagnosis Onset Date Resolution B12 nutritional deficiency acute August 14, 2 024 1:21pm Fatigue noneactive August 14, 2024 1:21pm [...] 2024 9:05pm Acute lactic acidosis resolved Oct ru2024 9:05pm STANLEY (acute kidney injury) resolved November 10, 2024 9:05pm Acute dehydration inactive 2024 9:05pm Acute generalized abdominal pain inactive November 10, 2 025 9:05pm Cyclic vomiting syndrome inactive November 10, 2024 9:05pm Shanna-Jaime tear inactive 2024 9:05pm Marijuana abuse inactive November 10, 2024 9:05pm [facility] Work Phone: 1(860) 674-743305-04-2024 Discharge summary Author Patience Lane [facility] January 26, 2024 4:50pm Note Date/Time January 26, 2024 12:53p m [facility] Medical Records Department [address] [place] [address] Emergency Department Summary 01/26/24 MR#: [id number] Acct: [id number] Name: MINDY ROSARIO Rep #:[id number] : 1960 63 From: Patience Lane MD [...] able to urinate this morning without difficulty. [facility] Medical History (Updated 01/26/24 @ 16:46 by [...] 77.4 H Lymph % (Auto) 12.4 L [place] % (Auto) 5.9 Eos % (Auto) 3.2 [...] Clear Urine pH Cancelled 7.0 Ur Specific [place] Cancelled 1.010 U Specif Grav (Refrac) Cancelled [...] Signed: Kendy Carrera MD at 14:41 EDT , Treatment and Re-Evaluation :: CBC was [...] discharge to home. I will write him Phenergan and Bentyl to have at home as needed. Return [...] your Primary Care Provider. Call [facility] ([phone]) or report to the closest Emergency Room. Call 911 if necessary. 01/26/24 1650 <Electronically signed by Patience Lane MD> Cosigner Signature (if applicable): CC: No Primary Care Physician ~ Signed [facility] Work Phone: 1(654) 114-555012-14-2023 Discharge summary Author Trenton Ruiz [facility] September 06, 2023 3:28pm Note Date/Time September 06, 2023 12:03pm [facility] Medical Records Department [address] [place] [address] Emergency Department Summary 09/06/23 MR#: [id number] Acct: [id number] Name: MINDY ROSARIO #:[id number] : 1960 63 From: Trenton Ruiz DO [...] of breath. Prior similar symptoms: Yes [facility] Medical History (Updated 09/06/23 @ 15:19 by [...] 90.5 H Lymph % (Auto) 5.7 L [place] % (Auto) 2.9 Eos % (Auto) 0.0 [...] Signed: Ivan Norton MD at 15:25 EST Reading Location ID and State: [address] [place] [address] , Service support , Discharge Plan Triage Chief Complaint: Nausea/Vomiting [...] your Primary Care Provider. Call [facility] ([phone]) or report to the closest Emergency Room. Call 911 if necessary. 09/06/23 1528 <Electronically signed by Trenton Ruiz DO> Cosigner Signature (if applicable): CC: No Primary Care Physician ~ Signed [facility] Work Phone: 1(274) 682-159810-11-2023 Evaluation + Plan noteExtracted from: Title:History and [...] held for EGD and colonoscopy. [facility] 10-11-2023 Hospital Discharge instructions Patient Education 07/04/2023 [...] before eating solid foods. General instructions Take uivi-ood-lworego and prescription medicines only as told by [...] 12/31/2016 Document Revised: 12/09/2018 Document Reviewed: 12/31/2016 [employer] Patient Education 2020 Hactus. 07/04/2023 09:22:06 Colonoscopy, Adult, Care After Colonoscopy, [...] a slower pace than normal. ?Eat soft, qljm-iz-yxdita foods. Take ayru-lkp-mbwzasw or prescription medicines only as told by [...] 04/24/2005 Document Revised: 07/03/2018 Document Reviewed: 11/21/2016 [employer] Patient Education 2020 Hactus. Follow Up Care 06/21/2023 08:24:07 With:SOBEIDA JOHNS Address: [address] [place] [address] [place] [address] [phone] Business (1) When: Unknown Comments:Follow-up as needed. Followup based on biopsy results [facility] 10-11-2023 Note Discharge Instructions Thank you for allowing [facility] to assist you with your healthcare needs. The following is importantdischarge information regarding your hospital visit. Your Care Team PRERNA LEMUS DO Dr. Johns What to do next Follow Up Appointments Follow Up with SOBEIDA JOHNS When Why: Follow-up as needed. Followup based on biopsy results Where: [address] [facility] [place] [address] [phone] cFares (1) The Following Activity and Diet Have [...] before eating solid foods. General instructions Take aoqm-uhl-odgribu and prescription medicines only as told by [...] 12/31/2016 Document Revised: 12/09/2018 Document Reviewed: 12/31/2016 [employer] Patient Education 2020 Hactus. Colonoscopy, Adult, Care After This sheet gives [...] slower pace than normal. ? Eat soft, qomd-ra-vaqppd foods. Take bhrb-pve-gvfnyux or prescription medicines only as told by [...] 04/24/2005 Document Revised: 07/03/2018 Document Reviewed: 11/21/2016 [employer] Patient Education 2020 Hactus. Additional Information VACCINATE! IT SAVES LIVES! Members of the community who have not yet received the COVID-19 vaccine and would like to receive it can visit one of [facility] vaccine clinics. There are many vaccine clinic locations within the [facility]. For locations and available times, please visit [email or web address]/. It is important to note that some COVID mobile vaccine clinics are held outdoors and may be canceled in rainy or stormy conditions. To learn more about pediatric vaccinations (ages 5-11), we invite you to visit the [facility] webpage. https://www.[employer].org/pages/9527-Pclsq-Epgyxprixec-Lpueuumycx-Wromv-Dei stions.htmlTo learn more about the COVID-19 vaccine, we invite you to visit the CDC website for a list of frequently asked questions.https://www.cdc.gov/coronavirus/2019-ncov/vaccines/faq.html [facility]us Patient Portal Access Instructions: Stay connected with your healthcare team and access your personal medical information anytime with the [facility]us Patient Portal. Please follow the directions below to create your elmenus account: 1.Access the email account you provided upon registration to the hospital/physician office.2.Look for an invitation email from [facility].3.Open the email and access the invitation link: AcceptInvitation to AparnaBukupe.4.Fill in the required roth to create your account. To access your account, visit [email or web address]. Click the blue button labeled Access Patient Portal and then log in with the username and password that you created in the steps above. You will be able to view your test results, lab results, a summary of your visits, upcoming appointments and more. There is also a convenient messaging option where you can send secure messages to your p perryvider. In addition, you will have the ability to download any documents or summaries to your computer and/or send the information securely to a physician. Remember that your healthcare information is confidential, so carefully consider who you will allowto register on the [facility] for access to your information. You can also access the [facility] Patient Portal on the [facility]. Simply click on Patient Portal and then log into your account. If you would like to receive a full copy of your medical records, please contact the [facility] Medical Records Department by calling [phone], Sunday through Sunday between 8 a.m. and [...] Call your local pharmacy or go to http://[employer]/8P4Ii6a to find one close to you.3.Make use of household items: Use cat litter or old coffee grounds to dispose medications if other options arenot available. Mix your drugs with these household products, seal them in an airtight container andthrow it into the garbage. Call [facility]: [phone] to be sure your drugs can be [...] been reviewed and explained to me and I,MINDY ROSARIO understand my current condition and have read and understand these discharge instructions. I have received a written copy of the plan/instructions. If I have questions, I am aware that I should contact my doctor. Patient/Visiting Housekeeper Signature: Date/Time: Relationship to Patient: Witness Name/Signature: Date/Time: [facility]10-11-2023 Note Date of Service 07/04/2023 Chief Complaint [...] None. Living situation: Home with assistance. Primary Manager Chemical: Self. Safe place to go: Yes. Current [...] MD on 07/04/2023 08:40 AM [facility]10-11-2023 Anesthesiology Consult note Patient: MINDY ROSARIO Age: 63 years Sex: Male : 1960 Associated Diagnoses: None Author: NAHED PAULSON APRN-NELIA Preoperative Information Anesthesia history Patient's history: negative. [...] Medical Coronary artery disease / SNOMED CT 15967434 / Confirmed Hypertension / SNOMED CT 5483277160 / Confirmed, Active Problems (9) Adrenal cyst Coronary artery disease Cyclical vomiting Hemorrhoids Hypertension TN (myocardial infarction) OA (osteoarthritis) Sleep apnea Tobacco use Histories Past Medical History: No active or resolved past medical history items have been selected or recorded. Family History: Cancer Brother Heart attack Mother Father Leukemia Brother Procedure history: Cholecystectomy (88040600). Wrist (30220860). Comments: 01/15/2023 9:59 Janene Blair RN katelyn left wrist Coronary artery stent (0457516059). Comments: 07/04/2023 7:44 Dayami Pacheco RN 7 stents Repair of diaphragmatic hiatal hernia (535718246). EGD - esophagogastroduodenoscopy (7107983823). Colonoscopy (768837713). Arthroscopy of knee (486896130). Comments: 07/04/2023 7:48 EDT - Dayami Caldera RN right Social History Social & Psychosocial [...] None Living situation: Home with assistance Primary Manager Chemical: Self Safe place to go: Yes Current [...] Vital Signs(last 24 hrs) Last Charted Temp Mncfexrg77.8 DegC (JUL 04 07:48) Resp Rate L 12br/min (JUL 04 07:48) SBPH 153mmHg (JUL 04 07:48) DBPH 97mmHg (JUL 04 07:48) BMI28.03 (JUL 04 07:48) Measurements from flowsheet : Measurements 07/04/2023 7:48 EDT Height 177.8 cm Admission Weight 88.6 kg Weight Method Stated [place] Body Weight 73.00 kg BSA Admission 2.07 [...] Allergies Yes Anesthesia Extension Set Applied Yes Cofounder On Yes Colon Prep Results Good Consent [...] Person #1 We May Share PHI Geena Liverien [phone] Designated Person #1 Relationship Spouse Designated Person #2 We May Share PHI Raquel Pereira'Brien [phone] Designated Person #2 Relationship Son Privacy Restrictions Requested None Height 177.8 cm Admission Weight 88.6 kg Weight Method Stated [place] Body Weight 73.00 kg BSA Admission 2.07 [...] Status N/A Skin Temperature Warm Skin Description [place], Dry Skin Integrity Intact Skin Moisture General [...] Method Explanation, Printed materials Preferred Spoken Language Kenyan Preferred Written Language Kenyan Information Given by Patient Patient's Current Physicians [...] of Attempts: 1 . Assessment and Plan [place] Society of Anesthesiologists (ASA) physical status classification: Class III. Anesthetic Preoperative Plan Anesthetic technique: MAC. Postoperative pain management: Per surgeon. Risks discussed: nausea, vomiting, sore throat, dental injury, hypotension, allergic reaction, serious complications. Informed consent: signed by patient. Digitally Signed by NAHED PAULSON on 07/04/2023 08:40 AM [facility]07-19-2023 Note. MICRO - Microbiology PROCEDURE: Blood Culture [...] Locations *1: This test was performed at: [address], [address] [place] [address] ([facility]2023 Note. MICRO - Microbiology PROCEDURE: Blood Culture [...] Locations *1: This test was performed at: [address], [address] [place], [place] [address]04-07-2023 NoteSend Summary: Discharge Summary Providers: Provider RoleProvider Name PrimaryWLaura hay Note Recipients: Correct Info, Needed, Ashlee Bui, DO HouLaura Celso, - [phone] [] Discharge: Summary: Admission Date: .07-Apr-2023 00:56:00 Discharge Date: 08-Apr-2023 Attending Physician at Discharge: Ashlee Cardenas Admission Reason: Pneumomediastinum with concerns for esophageal perforation. Final Discharge Diagnoses: Pneumomediastinum Procedures: none Condition at Discharge: Satisfactory Disposition at Discharge: .Home Vital Signs: T PRBPMAPSpO2 Value37.73018127/8494% Date/Time04/07 13: 13: 13: 13: 13:26 Range(36.1C - 37.3C ) (61 - 74 ) (16 - 19 ) (165 - 170 )/ (76 - 91 ) (94% - 98% ) Highest temp of 37.3 C was recorded at 04/07 13:26 Date: Weight/Scale Type:Height: 07-Apr-2023 02:5081.5 kg / xtphdsqy360.1 cm Physical Exam: Awake alert in no [...] to Schedule in: 2 weeks Phone Number: [phone] Discharge Medications: Home Medication citalopram 40 mg [...] the resident/fellows medical decision (more content not included)...[facility] 04-07-2023 Note. MICRO - Microbiology [...] Locations *1: This test was performed at: [address], [facility] , [facility] [place] hospital ([place])04-07-2023 NoteHistory of Present Illness: HPI: MINDY ROSARIO is a 62 year old Man [...] He was transferred to the floor at [facility] for further evaluation. Upon my interview the [...] 12.5 Monocyte % 9 (more content not included)...[facility]07-15-2023 Hospital Discharge instructions Patient Education 04/06/2023 22:42:06 Nausea and Vomiting, Adult, Daed-rt-Qswq Nausea and Vomiting, Adult Nausea is feeling [...] fruit juice). ?Low-calorie sports drinks. Eat bland, wbue-ui-wwgaov foods in small amounts as you are able, such as: ?Bananas. ?Applesauce. ?Rice. ?Low-fat (lean) meats. ?[place]. ?Crackers. Avoid drinking fluids that have a lot of sugar or caffeine in them. This includes energy drinks, sports drinks, and soda. Avoid alcohol. Avoid spicy or fatty foods. General instructions Take iljn-lym-gtmxsvq and prescription medicines only as told by your doctor. Drink enough fluid to keep your pee (urine) pale yellow. Wash your hands often with soap and water. If you cannot use soap and water, use hand contract associate. Make sure that all people in your [...] too much water in your body. Take fumv-zmg-jnwobpj and prescription medicines only as told by [...] 02/26/2009 Document Revised: 01/02/2020 Document Reviewed: 02/18/2019 [employer] Patient Education 2019 Hactus. Follow Up Care 04/06/2023 20:09:30 With:PRERNA LEMUS DO Address: [address] [place] [address] [phone] When:1-2 days [facility] 07-14-2023 Note Discharge Instructions Thank you for allowing [facility] to assist you with your healthcare needs. The following is importantdischarge information regarding your hospital visit. Your Care Team PRERNA LEMUS DO Your Diagnosis Abdominal pain What to do next Follow Up Appointments Follow Up with PRERNA LEMUS DO When Within 1-2 days Where: [address] [place] [id number] [phone] The Following Activity and Diet Have Been [...] juice). ? Low-calorie sports drinks. Eat bland, zbhw-zz-srhbvc foods in small amounts as you are able, such as: ? Bananas. ? Applesauce. ? Rice. ? Low-fat (lean) meats. ? [place]. ? Crackers. Avoid drinking fluids that have a lot of sugar or caffeine in them. This includes energy drinks, sports drinks, and soda. Avoid alcohol. Avoid spicy or fatty foods. General instructions Take wwkc-hyb-dxsvvyv and prescription medicines only as told by your doctor. Drink enough fluid to keep your pee (urine) pale yellow. Wash your hands often with soap and water. If you cannot use soap and water, use hand contract associate. Make sure that all people in your [...] too much water in your body. Take ghbg-jsc-xelsaov and prescription medicines only as told by [...] 02/26/2009 Document Revised: 01/02/2020 Document Reviewed: 02/18/2019 Elsevier Patient Education 2020 [employer] Additional Information VACCINATE! IT SAVES LIVES! Members of the community who have not yet received the COVID-19 vaccine and would like to receive it can visit one of [facility] vaccine clinics. There are many vaccine clinic locations within the [facility]. For locations and available times, please visit https://[email or web address].[place].gov/. It is important to note that some COVID mobile vaccine clinics are held outdoors and may be canceled in rainy or stormy conditions. To learn more about pediatric vaccinations (ages 5-11), we invite you to visit the [employer] webpage. https://www.[employer].org/pages/9728-Lxnyc-Vqruscudicc-Nincbhrpyt-Rboka-Atx stions.htmlTo learn more about the COVID-19 vaccine, we invite you to visit the CDC website for a list of frequently asked questions.https://www.cdc.gov/coronavirus/2019-ncov/vaccines/faq.html [facility]us Patient Portal Access Instructions: Stay connected with your healthcare team and access your personal medical information anytime with the [facility]us Patient Portal. Please follow the directions below to create your elmenus account: 1.Access the email account you provided upon registration to the hospital/physician office.2.Look for an invitation email from [facility].3.Open the email and access the invitation link: AcceptInvitation to AparnaBukupe.4.Fill in the required roth to create your account. To access your account, visit [email or web address]. Click the blue button labeled Access Patient Portal and then log in with the username and password that you created in the steps above. You will be able to view your test results, lab results, a summary of your visits, upcoming appointments and more. There is also a convenient messaging option where you can send secure messages to your shiva choi. In addition, you will have the ability to download any documents or summaries to your computer and/or send the information securely to a physician. Remember that your healthcare information is confidential, so carefully consider who you will allowto register on the [facility] Patient Portal for access to your information. You can also access the [facility] Patient Portal on the [facility]. Simply click on Patient Portal and then log into your account. If you would like to receive a full copy of your medical records, please contact the [facility] Medical Records Department by calling [phone], Sunday through Sunday between 8 a.m. and [...] Call your local pharmacy or go to http://[employer]/5N0Er1u to find one close to you.3.Make use of household items: Use cat litter or old coffee grounds to dispose medications if other options arenot available. Mix your drugs with these household products, seal them in an airtight container andthrow it into the garbage. Call [facility]: [phone] to be sure your drugs can be [...] Patient Education Materials Nausea and Vomiting, Adult, Ouqz-ak-Foea Medication Leaflets My discharge plan and instructions have been reviewed and explained to me and I,MINDY ROSARIO understand my current condition and have read and understand these discharge instructions. I have received a written copy of the plan/instructions. If I have questions, I am aware that I should contact my doctor. Patient/Visiting Housekeeper Signature: Date/Time: Relationship to Patient: Witness Name/Signature: Date/Time: [id number] History and physical note Date of Service 04/06/2023 Chief Complaint Chest pain, N/V History of Present Illness 62 yo M w/a PMH consistent with cyclic vomiting syndrome, HTN, HLP, CAD, Marti's esophagus who presented to [facility] with the complaint of intractable nausea/vomiting in the setting of CVS.He endorses intermittent marijuana use and has had multiple ED visits over the last year for the afo rementioned complaint. Reflex CT in [facility] revealed: Locules of air adjacent to the [...] HTN HLP Patient was transferred to from [facility] during the day out of concern for [...] Full Code, Constant Order Digitally Signed by ROBERT VARGAS DO on 04/06/2023 10:17 PM [facility] [id number] Evaluation + Plan note Diagnostic Tests Pending * Urine Culture 04/06/23 [facility] 07-14-2023 Evaluation + Plan noteExtracted from: Title:History and Physical Author:ROBERT VARGAS Date:04/06/23 Boerhaave Syndrome Intractable Nausea/Vomiting Cyclic Vomiting Syndrome CAD HTN HLP Patient was transferred to from [facility] during the day out of concern for [...] meds for CAD, HTN, HLP. [facility] 07-14-2023 Note ORIGINAL EXAMINATION: CT OF THE [...] Date: 04/06/2023 9:04:26 AM Ordering Provider: [facility]07-14-2023 Note ORIGINAL EXAMINATION: CT OF THE CHEST [...] Sign Date: 04/06/2023 9:04:26 AM Ordering Provider: [facility]07-14-2023 Note ORIGINAL EXAMINATION: CT OF THE [...] Sign Date: 04/06/2023 7:41:51 AM Ordering Provider: [facility]07-14-2023 Note ORIGINAL EXAMINATION: CT OF THE ABDOMEN [...] Sign Date: 04/06/2023 7:41:51 AM Ordering Provider: [facility]07-04-2023 Hospital Discharge instructions Patient Education 03/27/2023 16:41:12 [...] and water are not available, use alcohol-based contract associate to keep from spreading the infection to [...] Yellow color of the eyes or skin 1883-7425 [employer] [address] [place] [address], [place] [address]. All rights reserved. This information is not intended as a substitute for professional medical care. Always follow yourhealthcare professional's instructions. Follow Up Care 03/27/2023 14:22:32 With:PRERNA LEMUS DO Address: [address] [place] [phone]- [phone] When:2-4 days [facility] 07-04-2023 Note Discharge Instructions Thank you for allowing [facility] to assist you with your healthcare needs. The following is importantdischarge information regarding your hospital visit. Diagnosis from Today's Visit Cyclical vomiting Vomiting What to Do Next Instructions from Your Care Team No qualifying data available. Post Acute Orders No qualifying data available. You Need to Schedule the Following Appointments Follow Up with PRERNA LEMUS DO When Within 2-4 days Where: [address] [place] [address] [phone] Allergies Macrobid Zoloft meloxicam penicillin Medications Please [...] and water are not available, use alcohol-based contract associate to keep from spreading the infection to [...] Yellow color of the eyes or skin 2089-4577 [employer] [address] [place] [address], [place] [address]. All rights reserved. This information is not intended as a substitute for professional medical care. Always follow yourhealthcare professional's instructions. Additional Information VACCINATE! IT SAVES LIVES! Members of the community who have not yet received the COVID-19 vaccine and would like to receive it can visit one of [facility] vaccine clinics. There are many vaccine clinic locations within the [facility]. For locations and available times, please visit www.gettheshot.coronavirus.[place].gov/. It is important to note that some COVID mobile vaccine clinics are held outdoors and may be canceled in rainy or stormy conditions. To learn more about pediatric vaccinations (ages 5-11), we invite you to visit the [facility] webpage. https://www.akComfortWay Inc.s.org/pages/1903-Qsnmv-Cqlgvszogig-Gyirgboszg-Vlnhw-Qat stions.htmlTo learn more about the COVID-19 vaccine, we invite you to visit the CDC website for a list of frequently asked questions. https://www.cdc.gov/coronavirus/2019-ncov/vaccines/faq.html [facility] agreement24 [email or web address] Patient Portal Access Instructions: Stay connected with your healthcare team and access your personal medical information anytime with the [facility] Patient Portal. If you would like a full copy of your medical records please contact the [facility] Records Department Sunday through Sunday between 8a.m. and 4:30p.m. Please follow the directions below to access the portal: 1.Access the email account you provided upon registration to the hospital.2.Look for an invitation email from [facility].3.Open the email and access the invitation link: Accept Invitation to [facility]4.Fill in the required roth to create your account. Sign into [email or web address] with your username and password that you [...] you will allow to register on the [facility] Patient Portal for access to your information. You can also access the [facility] Patient Portal on the Fronto inan. Simply click on Health Records under [employer]ractice [employer] and then click on the Tok3n logo. HOW TO SAFELY DISPOSE OF PRESCRIPTION [...] Call your local pharmacy or go to http://[employer].Millennium Airship/1E8Fh3x to find one close to you.3.Make use of household items: Use cat litter or old coffee grounds to dispose medications if other options arenot available. Mix your drugs with these household products, seal them in an airtight container andthrow it into the garbage. Call [facility]: [phone] to be sure your drugs can be [...] been reviewed and explained to me and I,TERRY ROSARIOEL Renee understand my current condition and have read and understand these discharge instructions. I have received a written copy of the plan/instructions. If I have questions, I am aware that I should contact my doctor. Patient/Visiting Housekeeper Signature: Date/Time: Relationship to Patient: Witness Name/Signature: Date/Time: [facility]06-16-2023 Hospital Discharge instructions Patient Education 03/09/2023 06:40:50 [...] and water are not available, use alcohol-based contract associate to keep from spreading the infection to [...] Yellow color of the eyes or skin 8187-0796 [employer] [address] [place] [address]. All rights reserved. This information is not intended as a substitute for professional medical care. Always follow yourhealthcare professional's instructions. Follow Up Care 03/09/2023 04:50:48 With:TELLO LOVETT MD Address: [facility] EVE[facility] [address] [phone] [phone] When:2-4 days With:PRERNA LEMUS DO Address: [address] [place] [phone]- [phone] When:2-4 days [facility] 06-16-2023 Note Discharge Instructions Thank you for allowing [facility] to assist you with your healthcare needs. [...] LOVETT MD When Within 2-4 days Where: [facility] [address] [phone]- [phone] Follow Up with PRERNA LEMUS DO When Within 2-4 days Where: [address] [place] [phone]- [phone] Allergies Macrobid Zoloft meloxicam penicillin Medications Please [...] and water are not available, use alcohol-based contract associate to keep from spreading the infection to [...] Yellow color of the eyes or skin 7386-5910 [employer] [address] [place] [address]. All rights reserved. This information is not intended as a substitute for professional medical care. Always follow yourhealthcare professional's instructions. Additional Information VACCINATE! IT SAVES LIVES! Members of the community who have not yet received the COVID-19 vaccine and would like to receive it can visit one of [facility] vaccine clinics. There are many vaccine clinic locations within the [facility]. For locations and available times, please visit www.gettheshot.coronavirus.[place].gov/. It is important to note that some COVID mobile vaccine clinics are held outdoors and may be canceled in rainy or stormy conditions. To learn more about pediatric vaccinations (ages 5-11), we invite you to visit the [facility] webpage. https://www.[facility].org/pages/8630-Iyuop-Rbxofteebpz-Awtacbpdrq-Luciv-Ddq stions.htmlTo learn more about the COVID-19 vaccine, we invite you to visit the CDC website for a list of frequently asked questions. https://www.cdc.gov/coronavirus/2019-ncov/vaccines/faq.html [facility] agreement24 [email or web address] Patient Portal Access Instructions: Stay connected with your healthcare team and access your personal medical information anytime with the [facility] Patient Portal. If you would like a full copy of your medical records please contact the [facility] Records Department Sunday through Sunday between 8a.m. and 4:30p.m. Please follow the directions below to access the portal: 1.Access the email account you provided upon registration to the [facility].2.Look for an invitation email from [facility].3.Open the email and access the invitation link: Accept Invitation to [facility] agreement24 [email or web address].Fill in the required roth to create your account. Sign into [email or web address] with your username and password that you [...] you will allow to register on the [facility] agreement24 [email or web address] Patient Portal for access to your information. You can also access the [facility] Patient Portal on the Fronto inna. Simply click on Health Records under [employer]ractice [employer] and then click on the Aparna logo. HOW TO SAFELY DISPOSE OF PRESCRIPTION [...] Call your local pharmacy or go to http://bit.Millennium Airship/3C3Ii4f to find one close to you.3.Make use of household items: Use cat litter or old coffee grounds to dispose medications if other options arenot available. Mix your drugs with these household products, seal them in an airtight container andthrow it into the garbage. Call [facility]: [phone] to be sure your drugs can be [...] aware that I should contact my doctor. Patient/Visiting Housekeeper Signature: Date/Time: Relationship to Patient: Witness Name/Signature: Date/Time: [facility]06-16-2023 Note ORIGINAL EXAMINATION: CT OF THE ABDOMEN [...] Date: 03/09/2023 6:55:31 AM [facility] Note ORIGINAL EXAMINATION: CT OF THE [...] Sign Date: 03/09/2023 6:55:31 AM Ordering Provider: [facility]06-15-[address] Kam [facility] March 08, 2023 3:08pm Note Date/Time March 08, 2023 12:5 7pm [facility] Medical Records Department [address] [facility] [place] [address] Emergency Department Summary 03/08/23 MR#: [id number] Acct: [id number] Name: MINDY ROSARIO III Rep #:[id number] : 1960 62 From: Dewey Kam MD PCP: KARSON GRAFF Status:REG ER Location: ED HPI History [...] Other (There are no inpatient records at [facility].) Lab Data Attestation: I reviewed the [...] TID Qty: 20 0RF Primary Care Provider: KARSON GRAFF Referrals: KARSON GRAFF [Other] - As Needed Disposition Disposition: Home, Self Care What to do if you have Problems For any increased pain, shortness of breath, bleeding, nausea or vomiting, chest pain, or any unexpected problems, contact your Primary Care Provider. Call [facility] ([phone]) or report to the closest Emergency Room. Call 911 if necessary. 03/08/23 1508 <Electronically signed by Dewey Kam MD> Cosigner Signature (if applicable): CC: KARSON GRAFF ~ Signed [facility] Work Phone: 1(808) 670-901404-10-2023 NoteHNO ID: [id number] Author: Maddie Kearney MD Service: ? Author Type: Physician [...] and pain, so she will take him too.[facility]04-10-[address] Ramos [facility] January 01, 2023 6:14pm Note Date/Time January 01, 2023 6:1 4pm [facility] Medical Records Department [address] [place] [address] Emergency Department Summary 01/01/23 MR#: [id number] Acct: [id number] Name: MINDY ROSARIO III Rep #:[id number] : 1960 62 From: Catherine Ramos DO PCP: KARSON GRAFF Status:REG ER Location: ED HPI HPI [...] does not see his old physicians in [place]. He has not set up any kind of follow-up here in [place] because he states I been busy with shit. [facility] Medical History Heart attack Hiatal hernia Home [...] 90.0 H Lymph % (Auto) 5.8 L Navajo % (Auto) 3.1 Eos % (Auto) 0.0 [...] Nausea) Qty: 10 0RF Primary Care Provider: KARSON GRAFF Referrals: KARSON GRAFF [Other] Disposition Disposition: Home, Self Care What to do if you have Problems For any increased pain, shortness of breath, bleeding, nausea or vomiting, chest pain, or any unexpected problems, contact your Primary Care Provider. Call [facility] ([phone]) or report to the closest Emergency Room. Call 911 if necessary. 01/01/231813 <Electronically signed by Catherine Ramos DO> Cosigner Signature (if applicable): CC: KARSON GRAFF ~ Signed [facility] Work Phone: [phone]) 459-912404-10-2023 History of Present illness Narrative* Maddie Kearney MD - 01/01/2023 1:11 PM EDT Express Care Triage Note: Patient presents to the [facility] care with complaint of severe nausea and vomiting since this morning. Denies severe abdominal pain or blood in emesis/stool, but he is feeling weak. Patient is persistently retching and has difficulty standing for discussion. Anti-emetic is available here, but is going to the ER for her leg numbness and pain, so she will take him too. [facility] Discharge instructions Patient Education 06/27/2022 22:13:46 [...] and water are not available, use alcohol-based contract associate to keep from spreading the infection to [...] Yellow color of the eyes or skin 1774-4345 [employer] [address] [place] [address]. All rights reserved. This information is not intended as a substitute for professional medical care. Always follow yourhealthcare professional's instructions. Follow Up Care 06/27/2022 19:17:30 With:Follow up with primary care provider Address:Unknown When:2-4 days [facility] 10-04-2022 Note Discharge Instructions Thank you for allowing [facility] to assist you with your healthcare needs. [...] and water are not available, use alcohol-based contract associate to keep from spreading the infection to [...] Yellow color of the eyes or skin 3963-9755 [employer] [address] [place] [address], [place] [address]. All rights reserved. This information is not intended as a substitute for professional medical care. Always follow yourhealthcare professional's instructions. Additional Information VACCINATE! IT SAVES LIVES! Members of the community who have not yet received the COVID-19 vaccine and would like to receive it can visit one of [facility] vaccine clinics. There are many vaccine clinic locations within the [facility]. For locations and available times, please visit www.gettheshot.coronavirus.[place].org. It is important to note that some COVID mobile vaccine clinics are held outdoors and may be canceled in rainy orstormy conditions. To learn more about pediatric vaccinations (ages 5-11), we invite you to visit the [facility] webpage. https://www.akronSkyscrapers.org/pages/5439-Pxpxb-Hhmtxsifdiw-Wmrdgxhefo-Wwmmy-Cag stions.htmlTo learn more about the COVID-19 vaccine, we invite you to visit the [facility] website for a list of frequently asked questions. https://aparna.org/assets/Yyxxchim-fvl-Otxoegbk/ilyus-Dkhjoyy-Kkkcotrtna _Asked-Questions.pdf [facility] Patient Portal Access Instructions: Stay connected with your healthcare team and access your personal medical information anytime with the [facility] Patient Portal. If you would like a full copy of your medical records please contact the [facility] Records Department Sunday through Sunday between 8a.m. and 4:30p.m. Please follow the directions below to access the portal: 1.Access the email account you provided upon registration to the [facility].2.Look for an invitation email from [facility].3.Open the email and access the invitation link: Accept Invitation to [facility]4.Fill in the required roth to create your account. Sign into [email or web address] with your username and password that you [...] you will allow to register on the [facility] Patient Portal for access to your information. You can also access the [facility] Patient Portal on the Auctelia. Simply click on Health Records under HealthData and then click on the Tok3n logo. HOW TO SAFELY DISPOSE OF PRESCRIPTION [...] Call your local pharmacy or go to http://[employer].Millennium Airship/0I3Lf8a to find one close to you.3.Make use of household items: Use cat litter or old coffee grounds to dispose medications if other options arenot available. Mix your drugs with these household products, seal them in an airtight container andthrow it into the garbage. Call [facility]: [phone] to be sure your drugs can be [...] been reviewed and explained to me and I,FILI MINDY Renee understand my current condition and have read and understand these discharge instructions. I have received a written copy of the plan/instructions. If I have questions, I am aware that I should contact my doctor. Patient/Visiting Housekeeper Signature: Date/Time: Relationship to Patient: Witness Name/Signature: Date/Time: [facility]10-02-2022 Hospital Discharge instructions Patient Education 06/25/2022 17:31:52 [...] blood Large amounts of blood in stool 4311-7449 [employer] [address] [place] [address], [place] [address]. All rights reserved. This information is not intended as a substitute for professional medical care. Always follow yourhealthcare professional's instructions. Follow Up Care 06/25/2022 14:14:50 With:GARRET MCWILLIAMS MD Address: [address] [place] [phone]- When:2-4 days With:TELLO LOVETT MD Address: [address] [facility] [address] [place], [place] [phone]- [phone] When:2-4 days [facility] 10-02-2022 Emergency department Discharge summary Discharge Instructions Thank you for allowing [facility] to assist you with your healthcare needs. The following is importantdischarge information regarding your hospital visit. Diagnosis from Today's Visit Emesis What to Do Next Instructions from Your Care Team No qualifying data available. Post Acute Orders No qualifying data available. You Need to Schedule the Following Appointments Follow Up with GARRET MCWILLIAMS MD When Within 2-4 days Where: [address] [place] [address] [address] [place] [address]- Follow Up with TELLO LOVETT MD When Within 2-4 days Where: [address] [facility] [address] [place], [place] [phone] Allergies Macrobid Zoloft meloxicam penicillin Medications Please [...] may report side effects to FDA at 3-396-UPU-2160. What other drugs will affect promethazine? Using promethazine with other drugs that make you drowsy can worsen this effect. Ask your doctor before using opioid medication, a sleeping pill, a muscle relaxer, or medicine for anxiety or seizures. Other drugs may affect promethazine, including prescription and fpkt-ceh-zbambzr medicines, vitamins, and herbal products. Tell your [...] to ensure that the information provided by [employer]. ('[employer]') is accurate, up-to-date, and complete, but no guarantee is made to that effect. Drug information contained herein may be time sensitive. [employer] information has been compiled for use by healthcare practitioners and consumers in the [place] and therefore [employer] does not warrant that uses outside of the [place] are appropriate, unless specifically indicated otherwise. kubo financieros drug information does not endorse drugs, diagnose patients or recommend therapy. kubo financieros drug information isan informational resource designed to [...] effective or appropriate for any given patient. [facility] does not assume any responsibility for any aspect of healthcare administered with the aid of information [facility] provides. The information contained herein is not intended to cover all possible uses, directions, precautions, warnings, drug interactions, allergic reactions, or adverse effects. If you have questions about the drugs you are taking, check with your doctor, nurse or pharmacist. Copyright 9685-[address] [facility] FOB.com. Version: 8.01. Revision Date: 10/19/2021. promethazine (rectal) (pro METH a zeen) Rod Promethegan What is the most important information [...] may report side effects to FDA at 2-705-LOG-2831. What other drugs will affect promethazine rectal? Using promethazine rectal with other drugs that make you drowsy can worsen this effect. Ask your doctor before using opioid medication, a sleeping pill, a muscle relaxer, or medicine for anxiety or seizures. Other drugs may affect promethazine rectal, including prescription and grow-asr-dhrppan medicines, vitamins, and herbal products. Tell your [...] to ensure that the information provided by [employer]. ('[employer]') is accurate, up-to-date, and complete, but no guarantee is made to that effect. Drug information contained herein may be time sensitive. [employer] information has been compiled for use by healthcare practitioners and consumers in the [place] and therefore [employer] does not warrant that uses outside of the [place] are appropriate, unless specifically indicated otherwise. kubo financieros drug information does not endorse drugs, diagnose patients or recommend therapy. kubo financieros drug information isan informational resource designed to [...] effective or appropriate for any given patient. [facility] does not assume any responsibility for any aspect of healthcare administered with the aid of information [employer] provides. The information contained herein is not intended to cover all possible uses, directions, precautions, warnings, drug interactions, allergic reactions, or adverse effects. If you have questions about the drugs you are taking, check with your doctor, nurse or pharmacist. Copyright 9071-[address] [facility] FOB.com. Version: 6.01. Revision Date: 10/19/2021. Education Materials [...] blood Large amounts of blood in stool 4046-1801 [employer] [address] [place] [address], [place] [address]. All rights reserved. This information is not intended as a substitute for professional medical care. Always follow yourhealthcare professional's instructions. Additional Information VACCINATE! IT SAVES LIVES! Members of the community who have not yet received the COVID-19 vaccine and would like to receive it can visit one of [facility] vaccine clinics. There are many vaccine clinic locations within the [facility]. For locations and available times, please visit www.[email or web address].[email or web address]. It is important to note that some COVID mobile vaccine clinics are held outdoors and may be canceled in rainy orstormy conditions. To learn more about pediatric vaccinations (ages 5-11), we invite you to visit the [facility] webpage. https://www.akComfortWay Inc.s.org/pages/6854-Krwoj-Wfkwofpemwp-Hohdgzefqg-Pqrwb-Ifq stions.htmlTo learn more about the COVID-19 vaccine, we invite you to visit the [facility] website for a list of frequently asked questions. https://wildwoodNetac/assets/Vdgsisxa-jjk-Upwioumh/jxoaw-Qdrrrmg-Ebspqqzmkg _Asked-Questions.pdf [facility] Patient Portal Access Instructions: Stay connected with your healthcare team and access your personal medical information anytime with the [facility] Patient Portal. If you would like a full copy of your medical records please contact the [facility] Medical Records Department Sunday through Sunday between 8a.m. and 4:30p.m. Please follow the directions below to access the portal: 1.Access the email account you provided upon registration to the [facility].2.Look for an invitation email from [facility].3.Open the email and access the invitation link: Accept Invitation to [facility]4.Fill in the required roth to create your account. Sign into www.[email or web address] with your username and password that you [...] you will allow to register on the [facility] Patient Portal for access to your information. You can also access the [facility] Patient Portal on the [employer] inna. Simply click on Health Records under iPractice Group and then click on the Tok3n logo. HOW TO SAFELY DISPOSE OF PRESCRIPTION [...] Call your local pharmacy or go to http://[employer].Millennium Airship/8E5In2i to find one close to you.3.Make use of household items: Use cat litter or old coffee grounds to dispose medications if other options arenot available. Mix your drugs with these household products, seal them in an airtight container andthrow it into the garbage. Call [facility]: [phone] to be sure your drugs can be [...] been reviewed and explained to me and I,TERRY ROSARIOEL Renee understand my current condition and have read and understand these discharge instructions. I have received a written copy of the plan/instructions. If I have questions, I am aware that I should contact my doctor. Patient/Visiting Housekeeper Signature: Date/Time: Relationship to Patient: Witness Name/Signature: Date/Time: [facility]10-02-2022 Note ORIGINAL EXAMINATION: CT OF THE ABDOMEN [...] Date: 06/25/2022 4:54:29 PM Ordering Provider: HAN SAVAGE [facility]10-02-2022 Note ORIGINAL EXAMINATION: CT OF THE ABDOMEN [...] Sign Date: 06/25/2022 4:54:29 PM Ordering Provider: [facility]10-02-2022 Note ORIGINAL EXAMINATION: TWO [...] Sign Date: 06/25/2022 3:57:35 PM Ordering Provider: [facility]10-02-2022 Note ORIGINAL EXAMINATION: TWO XRAY VIEWS OF [...] Sign Date: 06/25/2022 3:57:35 PM Ordering Provider: [facility]09-24-2022 Hospital Discharge instructions Patient Education 06/17/2022 06:03:02 [...] wet, you can dry it with a assistant hairstylist. Unless told otherwise, you can take off [...] or as directed by your healthcare provider [phone] [employer] [address] [place] [address], [place] [address]. All rights reserved. This information is not intended as a substitute for professional medical care. Always follow yourhealthcare professional's instructions. Follow Up Care 06/17/2022 05:30:07 With:BILLIE JUÁREZ DPM, Surgery Address: [address] [address] [facility] [place] [address]- When:2-4 days [facility] 09-24-2022 Note Discharge Instructions Thank you for allowing [facility] to assist you with your healthcare needs. The following is importantdischarge information regarding your hospital visit. Diagnosis from Today's Visit Foot pain-swelling Monge fracture What to Do Next Instructions from Your Care Team Discharge Home Equipment - Ordered -- Crutches, 99 month(s), 06/17/22 6:02:00 EDT Discharge Home Equipment - Ordered -- Walking Boot, month(s), 06/17/22 6:02:00 EDT Post Acute Orders No qualifying data available. You Need to Schedule the Following Appointments Follow Up with BILLIE JUÁREZ DPM, Surgery When Within 2-4 days Where: [address] [facility], [address] [facility] [place] [address]- Allergies Macrobid Zoloft meloxicam penicillin Medications Please [...] wet, you can dry it with a assistant hairstylist. Unless told otherwise, you can take off [...] or as directed by your healthcare provider [phone] [employer] [address] [place] [address]. All rights reserved. This information is not intended as a substitute for professional medical care. Always follow yourhealthcare professional's instructions. Additional Information VACCINATE! IT SAVES LIVES! Members of the community who have not yet received the COVID-19 vaccine and would like to receive it can visit one of [facility] vaccine clinics. There are many vaccine clinic locations within the [facility]. For locations and available times, please visit www.[email or web address].[email or web address]. It is important to note that some COVID mobile vaccine clinics are held outdoors and may be canceled in rainy orstormy conditions. To learn more about pediatric vaccinations (ages 5-11), we invite you to visit the [facility] webpage. https://www.[facility].org/pages/6144-Atuai-Rartpjyilfq-Jqhiitwniz-Naetv-Chz stions.htmlTo learn more about the COVID-19 vaccine, we invite you to visit the [facility] website for a list of frequently asked questions. https://aparna.[employer] Interactive/assets/Nvqwoyvm-aru-Nmnxjwcw/deabm-Kczshie-Ssgmkqxhww _Asked-Questions.pdf [facility] agreement24 avtal24 Patient Portal Access Instructions: Stay connected with your healthcare team and access your personal medical information anytime with the [facility] agreement24 [email or web address] Patient Portal. If you would like a full copy of your medical records please contact the [facility] Medical Records Department Sunday through Sunday between 8a.m. and 4:30p.m. Please follow the directions below to access the portal: 1.Access the email account you provided upon registration to the [facility].2.Look for an invitation email from [facility].3.Open the email and access the invitation link: Accept Invitation to [facility]4.Fill in the required roth to create your account. Sign into www.[email or web address] with your username and password that you [...] you will allow to register on the [facility] Patient Portal for access to your information. You can also access the [facility] Patient Portal on the [employer]uct[employer]. Simply click on Health Records under iPractice Group and then click on the [facility] logo. HOW TO SAFELY DISPOSE OF PRESCRIPTION [...] Call your local pharmacy or go to http://[employer].Millennium Airship/2E7Mt7r to find one close to you.3.Make use of household items: Use cat litter or old coffee grounds to dispose medications if other options arenot available. Mix your drugs with these household products, seal them in an airtight container andthrow it into the garbage. Call [facility]: [phone] to be sure your drugs can be [...] been reviewed and explained to me and I,MINDY ROSARIO understand my current condition and have read and understand these discharge instructions. I have received a written copy of the plan/instructions. If I have questions, I am aware that I should contact my doctor. Patient/Visiting Housekeeper Signature: Date/Time: Relationship to Patient: Witness Name/Signature: Date/Time: [facility]09-24-2022 Note ORIGINAL EXAMINATION: THREE XRAY VIEWS OF [...] Sign Date: 06/17/2022 5:56:44 AM Ordering Provider: [facility]09-24-2022 Note ORIGINAL EXAMINATION: THREE XRAY VIEWS OF [...] Sign Date: 06/17/2022 5:56:44 AM Ordering Provider: LAUR[facility]02-10-2022 Note Patient Education Material Cardiovascular Lab Discharge Instructions [facility] Radial Cardiac Catheterization A catheter was inserted [...] rest of the day and also the [facility]03-07-2021 NotePatient: MINDY ROSARIO III Age: 60 years Sex: Male : 1960 Associated Diagnoses: Abdominal pain; Acute chest pain Author: PAZ LEE DO Discharge Information Discharge Summary Information: Admit Date: Admitted 11/27/2020. Discharge Date: Discharged 11/28/2020. Admitting Diagnosis: Abdominal pain - PNED [id number], Medical, Acute chest pain - LFF73-XX R07.9, Medical. Discharge Diagnosis: Abdominal pain - PNED [id number], Medical, Acute chest pain - KNT10-WN R07.9, Medical. Discharge Medications ST Home Medications [...] Sent to for review: PRERNA LEMUS DO [facility]03-07-2021 NotePatient Education Material Gastrointestinal Frequent Abdominal [...] Where can you learn more? Go to https://www.Codarica.net/patientEd Enter A944 in the search box to learn more about Frequent Abdominal Pain: Care Instructions. Current as of: March 19, 2019 Content Version: 12.5; ? [employer]. Care instructions adapted under license by your healthcare professional. If you have questions about a medical condition or this instruction, always ask your healthcare professional. [employer] disclaims any warranty or liability for your [...] passed out (lost c (more content not included)...[facility]03-07-2021 [id number]- Received report from CARIN Whiteside 1999- Patient is A/OX3 and stable. Patient denies any chest pain or abdominal pain at this time. Updated patient on plan of care. Safety maintained. Call light within reach.[facility]03-06-2021 NotePatient: MINDY ROSARIO III Age: 60 years Sex: Male [...] Hypercholesteremia Hypomagnesemia Insomnia Low vitamin B12 level TN (myocardial infarction) Nausea Nausea and vomiting Physical exam RULE OUT Clostridium difficile diarrhea Seizure Sleep apnea Status post laparoscopic Gabriela fundoplication Father (): Heart attack..; Heart disease.. [...] tabs, ORAL, DAILY ASPIRIN (more content not included)...[facility]02-19-2020 History of Past illness Narrative* Problem Noted [...] of this encounter (statuses as of 01/01/2023) [facility] No data available for this section [facility] Evaluation noteNo assessment information available [facility] Work Phone: Evaluation note* Diagnosis Nausea and vomiting, unspecified vomiting type- Primary documented in this encounter [facility] Diagnosis Onset Date Resolution Status Hearing loss acute Mild cognitive impairment ac sun'aq Seizure resolved [facility] Work Phone: Evaluation note* Diagnosis Onset Date Resolution Status Hearing loss acute Mild cognitive impairment ac sun'aq Seizure resolved B12 nutritional deficiency a cute [facility] Work Phone: Hospital Discharge instructions Additional Instructions Please follow-up with Dr. Mcwilliams, urologist, secondary to the renal cyst noted on your CAT scan.[facility] Work Phone: Hospital Discharge instructions Additional Instructions Please follow-up with your primary care doctor as well as your GI doctor. Take your antacid medications as prescribed. Avoid eating large meals.[facility] Work Phone: Hospital Discharge instructions No data available for this section [facility] Hospital Discharge instructions* Activity:activity as tolerated. May [...] Espinosa to Schedule in: 2 weeksPhone Number: [phone] [facility] Additional Instructions Thank [...] care physician for further outpatient evaluation and management.[facility] Work Phone: Reason for referral (narrative)No reason for referral information availableWJoint Township District [facility] Work Phone: Summary Purpose Family History No Family History Records Found Relationship Condition Age at Onset Recorded Date/T andi mother Cardiac disease Unknown father Cardiac disease Unknown Advance Directives No Advanced Directives Records Found Advance Directive Response Recorded Date/ Time Name of Medical Power of Legal Practice Manager EBENEZER ROSARIO- November 11, 2022 3:47pm Living Will No November 17 023 4:29pm Power of Legal Practice Manager No November 17, 2022 4:29pm Advance Directive Response Recorded Date/ Time Name of Medical Power of Legal Practice Manager EBENEZER ROSARIO- November 11, 2022 4:47pm Name of Medical Power of Legal Practice Manager Lobo Rosario December 06, 2022 10:14am Living Will Yes December 06, 2022 10:14am Power of Legal Practice Manager Yes December 06 10:14am Advance Directive Response Recorded Date/ Time Name of Medical Power of Legal Practice Manager EBENEZER ROSARIO- November 11, 2022 4:47pm Name of Medical Power of Legal Practice Manager Lobo Rosario December 06, 2022 10:14am Living Will No December 27, 2022 7:59pm Power of Legal Practice Manager No December 27 7:59pm Advance Directive Response Recorded Date/ Time Name of Medical Power of Legal Practice Manager EBENEZER ROSARIO- November 11, 2022 4:47pm Name of Medical Power of Legal Practice Manager Lobo Rosario December 06, 2022 10:14am Living Will No January 01, 2023 1:25pm Power of Legal Practice Manager No January 01 1:25pm Advance Directive Response Recorded Date/ Time Name of Medical Power of Legal Practice Manager EBENEZER ROSARIO- November 11, 2022 4:47pm Name of Medical Power of Legal Practice Manager Lobo Rosario December 06, 2022 10:14am Living Will No March 08, 2023 12:27pm Power of Legal Practice Manager No March 08 12:27pm Advance Directive Response Recorded Date/ Time Living Will No September 06 023 12:30pm Power of Legal Practice Manager No September 06, 2023 12:30pm Advance Directive Response Recorded Date/ Time Living Will No December 18, 2023 11:30am Power of Legal Practice Manager No December 17 11:30am Advance Directive Response Recorded Date/ Time Living Will No January 16, 2024 10:59am Power of Legal Practice Manager No January 15 10:59am Advance Directive Response Recorded Date/ Time Living Will Yes January 26, 2024 1: 11pm Power of Legal Practice Manager No January 26, 2024 1:11pm Advance Directive Response Recorded Date/ Time Living Will No September 06, 2 023 1:30pm Power of Legal Practice Manager No September 06, 2023 1:30pm Living Will No July 10 1:58pm Power of Legal Practice Manager No July 10, 2024 1:58pm Living Will No November 11, 025 12:22am Power of Legal Practice Manager No November 11, 2024 12:22am Living Will No September 02, 2 024 11:46pm Power of Legal Practice Manager No September 02, 2024 11:46pm Living Will No October 03 3:52pm Power of Legal Practice Manager No October 03, 2024 3:52pm Living Will No October 16 1:58pm Power of Legal Practice Manager No October 16, 2024 1:58pm Living Will Yes October 17 6:51am Power of Legal Practice Manager No October 17, 2024 6:51am Living Will Yes October 23 12:19pm Power of Legal Practice Manager Yes October 23, 2024 12:19pm Name of Medical Power of Legal Practice Manager lobo October 23, 2024 12:19pm Living Will No December 04, 2024 8:54pm Power of Legal Practice Manager No December 04 8:54pm Advance Directive Response Recorded Date/ Time Do you have a Healthcare Power of Legal Practice Manager? No April 05, 2025 1:01pm Hospital Course Note HNO ID: [id number] Author: Carmen Benitez Service: Hospital Medicine Author Type: Physician Type: Discharge Summary Filed: 11/13/2019 2:48 PM Note Text: DISCHARGE SUMMARY PATIENT NAME: Mindy Rosario III Code Status: Not on file [...] MEDICAL TEAM: [facility] Doctor: Wesley eBnitez Primary Care Provider: Prerna Lemus DO My [...] 2024 5:23am Cyclic vomiting syndrome October 17, 2 025 5:23am Anemia October 20, 2024 1 :14pm B12 nutritional deficiency October 20, 2024 1:14pm Mild cognitive impairment October 20, 2024 1:14pm Abdominal pain November 10, 2024 9:05pm Acidosis, lactic November 10, 2024 9:05pm Acute lactic acidosis November 10 9:05pm STANLEY (acute kidney injury) November 10, 2024 9:05pm Acute dehydration November 10, 2024 9:05pm Acute generalized abdominal pain Februar 2024 9:05pm Cyclic vomiting syndrome November 10, 2024 9:05pm Shanna-Jaime tear November 10, 2024 9:05pm Marijuana abuse November 10, 2024 9:05pm Chief Complaint Admit Date N/V April 05, 2025 12:2 8pm Additional Source Comments (unrecognized sect ion and content) No Status Records FoundNo Status Records FoundNo Status Records FoundNo Status Records FoundNo Status Records FoundNo Status Records FoundNo Status Records FoundNo Status Records FoundNo Status Records FoundNo Status Records FoundNo Status Records Found INFORMATION SOURCE (unrecogn ized section and content) DATE CREATED AUTHOR 03/14/2018 [facility] DATE CREATED AUTHOR AUTHOR'S ORGANIZ ATION 04/23/2018 [facility] DATE CREATED AUTHOR AUTHOR'S ORGANIZ ATION 10/13/2018 [facility] DATE CREATED AUTHOR AUTHOR'S ORGANIZ ATION 12/13/2018 [facility] DATE CREATED AUTHOR AUTHOR'S ORGANIZ ATION 10/16/2020 [facility] DATE CREATED AUTHOR AUTHOR'S ORGANIZ ATION 11/26/2021 [facility] DATE CREATED AUTHOR AUTHOR'S ORGANIZ ATION 01/05/2023 [facility] DATE CREATED AUTHOR AUTHOR'S ORGANIZ ATION 2023 [facility] DATE CREATED AUTHOR AUTHOR'S ORGANIZ ATION 07/21/2023 [facility] ([place]) DATE CREATED AUTHOR AUTHOR'S ORGANIZ ATION 11/09/2023 [facility] DATE CREATED AUTHOR AUTHOR'S ORGANIZ ATION 04/08/2025 [facility] Care Team (unrecognized sect ion [...] Member Role Status Dates Dr. Germania Maldonado , DO Emergency Provider Active Prerna Desiree, Robusto Primary Care Provider Active Team Status: Inactive Member Role Status Dates No Primary Care Physician Primary Care Provider Active Dr. Pieter Yoon DO Emergency Provider Active Team Status: Inactive Member Role Status Dates Dr. Germania Maldonado DO Attending Provider, Emergency P rovider Active Karson Shook Primary Care Provider Active Team Status: [...] Team Status: Active Member Role Status Dates KARSON GRAFF Primary Care Provider Active Team Status: Inactive Member Role Status Dates Dr. Catherine Ramos DO Emergency Provider Active PRERNA LEMUS Primary Care Provider Active [employer] Relationship Specialty Start Date End Date Prerna Lemus DO [address] [place] [address] PCP - General Family Medicine 12/27/17 Team [...] Status: Active Member Role Status Dates PRERNA LEMUS Primary Care Provider Active Team Status: Inactive Member Role Status Dates Dr. Fredi Angeles MD Attending Provider, Referring Provider Active KARSON GRAFF Primary Care Provider Active Team Status: Inactive Member Role Status Dates Dr. Fredi Angeles MD Attending Provider Active KARSON GRAFF Primary Care Provider, Referring Provi denisha Active Team Status: Inactive Member Role Status Dates KARSON GRAFF Primary Care Provider Active Dr. Fredi Angeles MD Attending Provider, Referring Provider Active Team Status: Inactive Member Role Status Dates Dr. Patience Lane MD Emergency Provider Active No Primary Care Physician Primary Care Provider Active Team Status: Inactive Member Role Status Dates Dr. Patienec Lane MD Attending Provider, Emergency Provider Active No Primary Care Physician Primary Care Provider Active Team Status: Inactive Member Role Status Dates Dr. Trenton Ruiz DO Emergency Provider Active No Primary Care Physician Primary Care Provider Active Team Status: Inactive Member Role Status Dates No Primary Care Physician Primary Care Provider Active Dr. Malcom Cordova DO Attending Provider, Emergency P roshalom Active Team Status: Active Member Role Status [...] End: September 03, 2024 Dr. Mirta Meza , DO Attending Provider Active S tart: September 02, 2024 End: September 03, 2024 Team Status: Active Member Role Status Dates Dr. Prerna Lemus DO Primary Care Provider Active Start: September 03, 2024 Dr. Trenton Ruiz , DO Emergency Provider Active S tart: September 03, 2024 Dr. Iris Orozco MD Admit Provider Active St art: September 03, 2024 Dr. Iris Orozco MD Other Provider Active St art: September 03, 2024 Dr. Mirta Meza DO Attending Provider Active S tart: September 03, 2024 Dr. Mirta Meza , DO Other Provider Active Start : September [...] 16, 2024 End: October 16, 2024 Dr. Mindy Cooper DO Attending Provider Active Start: October 16, 2024 End: October 16, 2024 Dr. Mindy Cooper DO Referring Provider Active Start: October 16, 2024 End: October 16, 2024 Dr. Mindy Cooper DO Emergency Provider Active Start: October 16, 2024 End: October 16, 2024 Team Status: Active Member Role Status Dates Dr. Prerna Lemus DO Primary Care Provider Active Start: October 17, 2024 Dr. Tarun Jim , Emergency Provider Active Start: October 17, 2024 [...] Active Sta rt: November 10, 2024 Dr. Robert Lowe MD Attending Provider Active Start: November [...] 10, 2024 End: November 13, 2024 Dr. Robert Lowe MD Admit Provider Active Star t: November 10, 2024 End: November 13, 2024 Dr. Robert Lowe MD Other Provider Active Star t: [...] Active Sta rt: November 11, 2024 Dr. Robert Lowe MD Admit Provider Active Star t: November 11, 2024 Dr. Robert Lowe MD Other Provider Active Star t: [...] Active Sta rt: November 12, 2024 Dr. Robert Lowe MD Admit Provider Active Star t: November 12, 2024 Dr. Robert Lowe MD Other Provider Active Star t: [...] Active Sta rt: November 12, 2024 Dr. Robert Lowe MD Admit Provider Active Star t: November 12, 2024 Dr. Robert Lowe MD Other Provider Active Star t: [...] Active Sta rt: November 13, 2024 Dr. Robert Lowe MD Admit Provider Active Star t: November 13, 2024 Dr. Robert Lowe MD Other Provider Active Star t: [...] Active Sta rt: November 13, 2024 Dr. Robert Lowe MD Admit Provider Active Star t: November 13, 2024 Dr. Robert Lowe MD Other Provider Active Star t: [...] December 04, 2024 End: December 05, 2024 Team Status: Active Member Role/Relationship Status Dates Dr. Prerna Lemus DO Primary Care Provider Active Team Status: Inactive Member Role/Relationship Status Dates Dr. Prerna Lemus DO Primary Care Provider Active Start: April 05, 2025 End: April 05, 2025 Dr. Pieter Yoon DO Emergency Provider Active Start: April 05, 2025 End: April 05, 2025 Goals (unrecognized section and content) Goals may be documented in a n alternate section Source Comments (unrecognize d section and content) In the event this informatio n is protected by the Federal Confidentiality of Alcohol and Drug Abuse Patient Records regulations: The Federal rules restrict any use of the information to criminally investigate or prosecute any alcohol or drug abuse patient.[facility] <item> Privacy Markings (unrecogniz ed section and [...] BE BASED ON THE PRIMARY CLINICAL RECORDS. [facility]. provides no warranty or guarantee of the accuracy or completeness of information in this document.
[2025-04-09 20:58] LABS: Reflex Lactate? Y
[2025-04-09] MEDS: 0.9% Saline Lock 10 ML Syringe IV (21:40)
[2025-04-09] MEDS: 0.9% Normal Saline (250mL Bag) 250 ML 15 ML IV (21:43)
[2025-04-09] MEDS: Magnesium Sulfate 4gm/100mL 4 GM/100 ML IV.SOLN. IV (21:47)
[2025-04-09] MEDS: Heparin Injection (Vial) 5,000 UNIT/ML VIAL 5000 UNIT SC (21:47)
[2025-04-09 21:56] LABS: Troponin T High Sens 2 HR 32 ng/L (<=22)
[2025-04-10 03:14] VITALS: BP 134/88; PULSE 72; RESP 18; TEMP 36.6; O2SAT 98
[2025-04-10 06:06] LABS: Hematocrit 28.5 % (40-54); Hemoglobin 9.4 g/dL (13.0-16.5); Mean Corp Hgb Conc 33.0 g/dL (32-36); Mean Corpuscular Volume 72.7 fL (80-94); Mean Platelet Vol. 10.1 fl (6.2-12.0); Platelet Count 329 K/mm3 (150-450); RBC Distribution Width CV 18.5 % (11.6-14.6); RBC Distribution Width SD 47.9 fl (35.1-43.9); Red Blood Count 3.92 M/mm3 (4.6-6.2); White Blood Count 11.3 K/mm3 (4.4-11.0)
[2025-04-10 06:45] LABS: Anion Gap 12 (5-15); BUN 25 mg/dL (4-19); BUN/Creat Ratio 20.2 RATIO (10-20); Calcium,Total 8.6 mg/dL (7.6-11.0); Carbon Dioxide 20.4 mmol/L (21.0-32.0); Chloride 103 mmol/L (98-108); Estimated Creatinine Clearance 58.65 ml/min (50-250); Glucose 84 mg/dL (70-99); Magnesium 2.6 mg/dL (1.5-2.2); Potassium 3.0 mmol/L (3.3-5.1)
[2025-04-10 09:00] VITALS: BP 148/84; PULSE 70; PULSE 80; RESP 18; TEMP 36.8; O2SAT 99
[2025-04-10] MEDS: Metoprolol(XL)Succ 25 MG Tablet PO (09:00)
--- NOTE | 2025-04-10 10:15 | DCINST_ITS ---
Discharge Instructions Dressing / Incision Discharge Activity: Return to Normal Activity Weight Bearing Status: Weight bearing as tolerated Dressing / Incision Call your doctor if you observe: Fever of 101 or Higher, Coldness, Increased Pain, Numbness or Tingling, Change in Color, Inability to urinate, Inability to have a bowel movement, Shortness of breath, Dizziness, Fainting spells, Swelling in the ankles, Chest pain, Prolonged hiccupping, Increased palpitations (irregular heartbeat) and Calf discomfort Follow Up Care When: IN 2 WEEKS Test Results: Test results from this visit will be discussed in further detail at your follow- up appointment, if applicable. Discharge Plan Admission Admit Date/Time: 04/09/25 18:50 Primary Reason for Your Visit: Intractable nausea vomiting probably precipitated by cannabinoid Attending Provider: Reynaldo Iniguez Primary Care Provider: Arias Lemus Consulting Providers: Luca Willett Discharge Orders/Prescriptions Prescriptions: New ferrous sulfate 325 mg (65 mg iron) tablet 325 mg PO QODAY Qty: 30 2RF ascorbic acid (vitamin C) 500 mg tablet 500 mg PO BID Qty: 60 2RF Continued metoprolol succinate 25 mg tablet extended release 24 hr 25 mg PO DAILY nitroglycerin 0.4 mg tablet, sublingual 0.4 mg sublingual Q5M PRN (Reason: chest pain) Rx Instructions: do not exceed 3 doses per episode acetaminophen [Tylenol Extra Strength] 500 mg tablet 500 mg PO Q6H PRN (Reason: pain) atorvastatin 40 mg Tablet 40 mg PO DAILY citalopram 40 mg Tablet 40 mg PO DAILY sucralfate 1 gram Tablet 1 g PO 4X/DAY amlodipine 10 mg Tablet 10 mg PO DAILY aspirin 81 mg Tablet,Chewable 81 mg PO DAILY dicyclomine 20 mg tablet 20 mg PO Q6H PRN (Reason: abdominal cramping) Qty: 20 0RF fenofibrate nanocrystallized 145 mg tablet 145 mg PO DAILY ondansetron 4 mg tablet,disintegrating 4 mg PO Q6H PRN (Reason: nausea and vomiting) Qty: 30 0RF ondansetron 4 mg tablet,disintegrating 4 mg PO Q8H PRN PRN (Reason: Nausea) Qty: 10 0RF trazodone 100 mg tablet 100 mg PO QHS magnesium chloride [Mag 64] 64 mg Tablet,Delayed Release (Dr/Ec) 128 mg PO BID Qty: 60 0RF ondansetron 4 mg tablet,disintegrating 4 mg PO Q8H PRN PRN (Reason: Nausea) Qty: 10 0RF pantoprazole 40 mg tablet,delayed release (DR/EC) 40 mg PO BID 30 Days Qty: 60 1RF Held clopidogrel [Plavix] 75 mg tablet 75 mg PO DAILY Hold Instructions: Hold for 5 days lisinopril 40 mg tablet 40 mg PO DAILY Hold Instructions: Hold lisinopril for 5 days. Referrals / Follow Up: Arias Lemus DO [Primary Care Provider] - Friend,DO Aiden [Med Staff - Active Staff] - Within 1 Month
--- NOTE | 2025-04-10 10:27 | PCM.PN.HOSP ---
Reason for Visit Chief Complaint: Intractable nausea/vomiting with poor p.o. intake and headache Objective Data Objective Data Vital Signs: Vital Signs Temp Pulse Resp BP Pulse Ox O2 Del Method 97.9 F 80 18 134/88 H 98 Room Air 04/10/25 03:14 04/10/25 09:00 04/10/25 03:14 04/10/25 03:14 04/10/25 03:14 04/10/25 07:16 Oxygen Delivery Method Room Air Weight: 158 lb 8.198 oz Body Mass Index (BMI) 22.7 Intake & Output: Intake and Output for Last 24 Hours 04/08/25 04/09/25 04/10/25 23:59 23:59 23:59 Intake Total 2105.25 / 2105.25 100 / 100 Output Total 300 / 300 Balance 2105.25 / 2105.25 -200 / -200 Lab / Micro Data 04/10/25 05:12 04/10/25 05:12 Labs: Laboratory Results - last 24 hr 04/09/25 15:42: WBC 21.6 H, RBC 5.36, Hgb 12.7 L, Hct 37.8 L, MCV 70.5 L D, MCH 23.7 L, MCHC 33.6, RDW Std Deviation 45.3 H, RDW Coeff of Florencio 18.9 H, Plt Count 579 H, MPV 10.0, Immature Gran % (Auto) 1.000 H, Neut % (Auto) 88.0 H, Lymph % (Auto) 3.8 L, Angelina % (Auto) 7.1, Eos % (Auto) 0.0, Baso % (Auto) 0.1, Absolute Neuts (auto) 19.0 H, Absolute Lymphs (auto) 0.83, Nucleated RBC % 0, Plt Morphology Comment LARGE, Target Cells 1+, Rebecca Cells RARE, Sodium 138, Potassium 3.1 L, Chloride 97 L, Carbon Dioxide 15.1 L, Anion Gap 26 H, BUN 35 H, Creatinine 2.24 H, Est GFR (MDRD) Non-Af 32 L, BUN/Creatinine Ratio 15.8, Glucose 141 H, Hemoglobin A1c 5.0, Calcium 10.4, Magnesium 1.0 L, Total Bilirubin 0.44, AST 61 H, ALT 31, Alkaline Phosphatase 54, Troponin T High Sens 30 H, Total Protein 7.8, Albumin 4.6, Globulin 3.2, Albumin/Globulin Ratio 1.4, Lipase 31, b-Hydroxybutyric mmol/L 1.5 H 04/09/25 16:30: Lactic Acid 5.0 H*, Ethyl Alcohol < 10.1 04/09/25 19:33: Lactic Acid 1.3, Phosphorus 2.2 L, Troponin T Hi Sens 2 Hr 32 H 04/10/25 05:12: WBC 11.3 H, RBC 3.92 L, Hgb 9.4 L, Hct 28.5 L, MCV 72.7 L, MCH 24.0 L, MCHC 33.0, RDW Std Deviation 47.9 H, RDW Coeff of Florencio 18.5 H, Plt Count 329, MPV 10.1, Sodium 136, Potassium 3.0 L, Chloride 103, Carbon Dioxide 20.4 L, Anion Gap 12, BUN 25 H, Creatinine 1.26 H, Estim Creat Clear Calc 58.65, Est GFR (MDRD) Non-Af 63, BUN/Creatinine Ratio 20.2 H, Glucose 84, Calcium 8.6, Phosphorus 2.3 L, Magnesium 2.6 H Micro: Microbiology 04/09/25 16:30 Mucosa - Nose SARS-CoV-2, Influenza & RSV (PCR) - Final ABG Data ABG results: ABG 04/09/25 17:28 Specimen Type ART Sample Site L Radial pH 7.52 H Bicarbonate Actual 21.0 L Total CO2 22 Base Excess -2 O2 Saturation 98 O2 % 21.0 ABG pCO2 25.6 L ABG pO2 88 Roderick Test Positive O2 Delivery Device Room Air Vent Mode Not entered Radiography Diagnostic Testing: Radiology Impression Chest X-Ray 04/09/25 15:54 IMPRESSION: No acute cardiopulmonary abnormality. Reading Location: [id number] Abdomen/Pelvis CT 04/09/25 15:55 IMPRESSION: 1. Mild circumferential bladder wall thickening, unchanged and which may again represent cystitis. Otherwise no acute intra-abdominal abnormality. 2. Chronic unchanged findings as detailed above, to include hiatal hernia, hepatic steatosis, and numerous renal cysts. Reading Location: [facility] Brain CT 04/09/25 15:58 IMPRESSION: No acute intracranial process. Reading Location: [facility] Physical Exam Narrative Seen and examined. Patient has history of chronic cannabis use. He has been vomiting. Patient also has diarrhea, loose watery bowel movement about 4-5 times per day for 5 days. Had cardiac stents in the past, 7 stents last 1 probably 3 years ago. Patient also with drop in hemoglobin. Physical exam General: Alert, Oriented x3, Cooperative HEENT: Atraumatic, PERRLA, EOMI, Normocephalic. Oral: No Gingival or Mucosal Lesions/ Ulcerations Neck: Supple, No JVD, Negative Carotid Bruits Chest wall/Lungs: Air entry diminished in bilateral lung bases. No crepitation/rhonchi Cardiovascular: Regular rate and rhythm, Normal S1,S2, No M/G/R Abdomen: Bowel Sounds Present, Soft, Non Tender, Non-Distended : No dysuria. No renal angle tenderness. No suprapubic tenderness. Extremities: No edema, Capillary Refill Less than 3 Seconds Skin: No rashes, No breakdown Musculoskeletal: No Tenderness to Palpation of Joints or Extremities Neurological: Cranial nerves II-XII grossly intact, DTR 2+/4. No acute focal neurological deficit. Psych/Mental Status: Normal Affect, Appropriate. Assessment & Plan Assessment/Plan (1) Intractable nausea and vomiting: (2) STANLEY (acute kidney injury): PLAN: Plan Patient is a 64-year-old male who presented to [facility] ED on 04/09/2025 with intractable nausea/vomiting with poor p.o. intake and headaches. 1. Intractable nausea/vomiting presumed secondary to cyclical vomiting syndrome ? Admit under inpatient status to [facility]. History of cyclical vomiting syndrome with last hospitalization in October 2024 has had ongoing nausea/vomiting with poor p.o. intake for about 5 days now. Presented with STANLEY with dehydration, elevated lactic acid and electrolyte abnormalities as below. Given IV Benadryl, IV Reglan and IV morphine in the ED with mild to moderate improvement. Improved with IV Reglan and IV Benadryl as needed for now. Patient tolerating diet. Strongly encouraged cessation for marijuana on discharge. 04/10: Vomiting is controlled. Patient wanted to go home in the morning. Patient is still dehydrated therefore recommended to stay. Patient decided to stay. 2. STANLEY with dehydration and elevated lactic acid ? Creatinine 2.24 on admit, baseline around 1.0. Lactic acid 5.0. Presume prerenal STANLEY from dehydration. Given 2 L of IV fluids on admit and remained mildly tachycardic, so we will give another 1 L of IV fluid over several hours tonight. Follow-up a.m. BMP and monitor urine output. 04/10: Creatinine improving, BUN/creatinine 25/1.26. Magnesium 2.6, hypophosphatemia, phosphorus 2.3. Hypokalemia, K3.0. Neutra-Phos ordered. 3. Hypokalemia and hypomagnesemia ? Potassium 3.1, magnesium 1.0 on admit. Phosphorus pending. Presume secondary to poor p.o. intake and GI losses. Replete as needed. 4. Marijuana abuse ? Reportedly has cut back on using marijuana but did use it in the past week or so. Strongly encouraged cessation on discharge. 5. GERD with history of peptic ulcer disease ? EGD back in October showed nonbleeding peptic ulcers chronic gastritis. Continue home p.o. PPI twice daily and sucralfate with meals. Acute anemia with baseline chronic anemia: Patient hemoglobin also dropped from his baseline around 11.2-9.4. Admitting H&H was 12.7 therefore meets criteria for acute anemia. 6. History of CAD with stenting, hypertension, hyperlipidemia ? Hypertensive to the 150s systolic on admit, otherwise stable. Continue home aspirin, Plavix, amlodipine, Toprol, statin and fenofibrate. Holding home lisinopril in setting of STANLEY as above. 7. Anxiety/depression ? Continue home citalopram and trazodone at night. DVT prophylaxis: Heparin subcu CODE STATUS: Full code, verified Laboratory Results 04/09/25 15:42: WBC 21.6 H, RBC 5.36, Hgb 12.7 L, Hct 37.8 L, MCV 70.5 L D, MCH 23.7 L, MCHC 33.6, RDW Std Deviation 45.3 H, RDW Coeff of Florencio 18.9 H, Plt Count 579 H, MPV 10.0, Immature Gran % (Auto) 1.000 H, Neut % (Auto) 88.0 H, Lymph % (Auto) 3.8 L, Angelina % (Auto) 7.1, Eos % (Auto) 0.0, Baso % (Auto) 0.1, Absolute Neuts (auto) 19.0 H, Absolute Lymphs (auto) 0.83, Nucleated RBC % 0, Plt Morphology Comment LARGE, Target Cells 1+, Rebecca Cells RARE, Sodium 138, Potassium 3.1 L, Chloride 97 L, Carbon Dioxide 15.1 L, Anion Gap 26 H, BUN 35 H, Creatinine 2.24 H, Est GFR (MDRD) Non-Af 32 L, BUN/Creatinine Ratio 15.8, Glucose 141 H, Hemoglobin A1c 5.0, Calcium 10.4, Magnesium 1.0 L, Total Bilirubin 0.44, AST 61 H, ALT 31, Alkaline Phosphatase 54, Troponin T High Sens 30 H, Total Protein 7.8, Albumin 4.6, Globulin 3.2, Albumin/Globulin Ratio 1.4, Lipase 31, b-Hydroxybutyric mmol/L 1.5 H 04/09/25 16:30: Lactic Acid 5.0 H*, Ethyl Alcohol < 10.1 04/09/25 16:45: Urine Color Yellow, Urine Clarity Clear, Urine pH 6.5, Ur Specific [place] 1.010, Urine Protein Negative, Urine Glucose (UA) Normal, Urine Ketones Negative, Urine Occult Blood 25 H, Urine Nitrite Negative, Urine Bilirubin Negative, Urine Urobilinogen Normal, Ur Leukocyte Esterase Negative, Urine RBC 0-5 SEEN, Urine WBC 0 SEEN, Ur Squamous Epith Cells 0 SEEN, Urine Bacteria 0 SEEN, Urine Mucus 0 SEEN 04/09/25 17:28: Specimen Type ART, Sample Site L Radial, pH 7.52 H, Bicarbonate Actual 21.0 L, Total CO2 22, Base Excess -2, O2 Saturation 98, O2 % 21.0, ABG pCO2 25.6 L, ABG pO2 88, Roderick Test Positive, O2 Delivery Device Room Air, Vent Mode Not entered 04/09/25 19:33: Lactic Acid 1.3, Phosphorus 2.2 L, Troponin T Hi Sens 2 Hr 32 H 04/10/25 05:12: WBC 11.3 H, RBC 3.92 L, Hgb 9.4 L, Hct 28.5 L, MCV 72.7 L, MCH 24.0 L, MCHC 33.0, RDW Std Deviation 47.9 H, RDW Coeff of Florencio 18.5 H, Plt Count 329, MPV 10.1, Sodium 136, Potassium 3.0 L, Chloride 103, Carbon Dioxide 20.4 L, Anion Gap 12, BUN 25 H, Creatinine 1.26 H, Estim Creat Clear Calc 58.65, Est GFR (MDRD) Non-Af 63, BUN/Creatinine Ratio 20.2 H, Glucose 84, Calcium 8.6, Phosphorus 2.3 L, Magnesium 2.6 H Charges/Coding Visit Charges Inpatient E&M: 69408 Subs Hosp L2
--- NOTE | 2025-04-10 10:28 | CASEMGMT ---
CARIN AMOR Assessment: Face to Face with pt for initial transition planning/care coordination assessment. RN ZULEYMA introduced self and role at [facility], pt voices understanding and consents to assessment. Pt is A&O x4 and answers all questions appropriately at this time. Pt sitting up in bed in no distress. Care providers, pharmacy, and demographics verified/updated. Admitting Dx: intractable N/V with STANLEY and electrolyte abnormalities Strata Score: 3 PCP:Mariah Specialists:Denies Preferred Pharmacy:[facility] Insurance: [facility] Prescription Benefit: yes LNOK: Joan Lu, Living Arrangements: Pt lives with in a ground level apt with 1 step to enter. Pt reports he is I in ADL/IADLs and denies concerns at home. Transportation: Pt drives self and denies concerns with transportation. DME:walking stick, cane, CPAP- doesn't use HHC/SNF: Denies hx of Pt states no concerns with going home at time of dc. Pt states no further concerns/needs. CM to follow. Advised pt to ask CM if any further questions/concerns/needs arise, voices understanding. Pt Goal: Home Plan: Home Angelique DEL ROSARIO CM
[2025-04-10] MEDS: Lactated Ringers 1,000 ML 100 ML IV ×2 (12:55→22:49)
[2025-04-10] MEDS: Na Biphos/Potassium Phosphate PACKET 1 PACKET PO ×2 (12:56→20:08)
[2025-04-10 15:00] VITALS: BP 144/81; PULSE 99; RESP 18; TEMP 36.6; O2SAT 95
[2025-04-10 15:56] LABS: Mucous, Urine 0 SEEN /hpf (<or=2+); Squamous Epithelial Cells - UA 0 SEEN /hpf (0-5)
[2025-04-10 16:01] LABS: Color, Urine Yellow (Yellow); Glucose, Dipstick Normal (Normal); Ketone-Dipstick Negative (Negative); Leukocyte Esterase-Dipstick Negative /ul (Negative); Nitrite-Dipstick Negative (Negative); Occult Blood-Urine 25 /ul (Negative); Protein-Dipstick Negative (Negative); Specific Gravity, Urine 1.010 (1.002-1.030); Urine Bilirubin Dipstick Negative (Negative)
--- NOTE | 2025-04-10 16:01 | NURSING ---
meds scanned into computer and filed did not file-I.S. made aware
[2025-04-10 16:10] LABS: Red Blood Cells-Urine 0-5 SEEN /hpf (0-5)
[2025-04-10 18:00] VITALS: BP 151/88; PULSE 68; RESP 18; TEMP 36.6; O2SAT 98
[2025-04-10 20:00] VITALS: BP 154/86; PULSE 69; RESP 17; TEMP 36.6; O2SAT 100
[2025-04-10] MEDS: Heparin Injection (Vial) 5,000 UNIT/ML VIAL 5000 UNIT SC (20:08)
[2025-04-11] MEDS: MELATONIN 3 MG TABLET PO (01:39)
[2025-04-11 03:07] VITALS: BP 120/68; PULSE 58; RESP 17; TEMP 37.1; O2SAT 97
[2025-04-11] MEDS: Na Biphos/Potassium Phosphate PACKET 1 PACKET PO (06:02)
[2025-04-11 07:43] VITALS: BP 130/81; PULSE 63; RESP 13; TEMP 37.5; O2SAT 95
[2025-04-11 07:46] VITALS: PULSE 63
[2025-04-11] MEDS: Metoprolol(XL)Succ 25 MG Tablet PO (07:46)
[2025-04-11] MEDS: Heparin Injection (Vial) 5,000 UNIT/ML VIAL 5000 UNIT SC (07:47)
[2025-04-11 08:15] LABS: Hematocrit 27.6 % (40-54); Hemoglobin 9.0 g/dL (13.0-16.5); Immature Granulocytes Count 0.060 X10^3/uL (0.0-0.0); Mean Corp Hgb Conc 32.6 g/dL (32-36); Mean Corpuscular Volume 73.4 fL (80-94); Mean Platelet Vol. 10.1 fl (6.2-12.0); NRBC Flagged by Analyzer 0 % (0-5); Platelet Count 311 K/mm3 (150-450); RBC Distribution Width CV 19.2 % (11.6-14.6); RBC Distribution Width SD 49.2 fl (35.1-43.9); Red Blood Count 3.76 M/mm3 (4.6-6.2); White Blood Count 7.1 K/mm3 (4.4-11.0)
[2025-04-11 08:39] LABS: Anion Gap 10 (5-15); BUN 13 mg/dL (4-19); BUN/Creat Ratio 14.9 RATIO (10-20); Calcium,Total 8.2 mg/dL (7.6-11.0); Carbon Dioxide 21.0 mmol/L (21.0-32.0); Chloride 105 mmol/L (98-108); Estimated Creatinine Clearance 85.76 ml/min (50-250); Glucose 84 mg/dL (70-99); Potassium 3.3 mmol/L (3.3-5.1)
--- NOTE | 2025-04-11 10:58 | DCINST_ITS ---
Discharge Instructions DC O2, CPAP, BIPAP needs Home O2 Discharge instructions: No Follow Up Care Test Results: Test results from this visit will be discussed in further detail at your follow- up appointment, if applicable. Discharge Plan Admission Admit Date/Time: 04/09/25 18:50 Primary Reason for Your Visit: Intractable nausea vomiting probably precipitated by cannabinoid Attending Provider: Reynaldo Iniguez Primary Care Provider: Arias Lemus Consulting Providers: Luca Willett Discharge Orders/Prescriptions Prescriptions: New ferrous sulfate 325 mg (65 mg iron) tablet 325 mg PO QODAY Qty: 30 2RF ascorbic acid (vitamin C) 500 mg tablet 500 mg PO BID Qty: 60 2RF potassium, sodium phosphates 280-160-250 mg Powder In Packet 1 packet PO TID 3 Days Qty: 10 0RF Continued metoprolol succinate 25 mg tablet extended release 24 hr 25 mg PO DAILY nitroglycerin 0.4 mg tablet, sublingual 0.4 mg sublingual Q5M PRN (Reason: chest pain) Rx Instructions: do not exceed 3 doses per episode acetaminophen [Tylenol Extra Strength] 500 mg tablet 500 mg PO Q6H PRN (Reason: pain) atorvastatin 40 mg Tablet 40 mg PO DAILY citalopram 40 mg Tablet 40 mg PO DAILY sucralfate 1 gram Tablet 1 g PO 4X/DAY amlodipine 10 mg Tablet 10 mg PO DAILY aspirin 81 mg Tablet,Chewable 81 mg PO DAILY dicyclomine 20 mg tablet 20 mg PO Q6H PRN (Reason: abdominal cramping) Qty: 20 0RF fenofibrate nanocrystallized 145 mg tablet 145 mg PO DAILY ondansetron 4 mg tablet,disintegrating 4 mg PO Q6H PRN (Reason: nausea and vomiting) Qty: 30 0RF ondansetron 4 mg tablet,disintegrating 4 mg PO Q8H PRN PRN (Reason: Nausea) Qty: 10 0RF trazodone 100 mg tablet 100 mg PO QHS ondansetron 4 mg tablet,disintegrating 4 mg PO Q8H PRN PRN (Reason: Nausea) Qty: 10 0RF pantoprazole 40 mg tablet,delayed release (DR/EC) 40 mg PO BID 30 Days Qty: 60 1RF Held clopidogrel [Plavix] 75 mg tablet 75 mg PO DAILY Hold Instructions: Hold for 5 days lisinopril 40 mg tablet 40 mg PO DAILY Hold Instructions: Hold lisinopril for 5 days. Discontinued magnesium chloride [Mag 64] 64 mg Tablet,Delayed Release (Dr/Ec) 128 mg PO BID Qty: 60 0RF Referrals / Follow Up: Arias Lemus DO [Primary Care Provider] - FriendAiden DO [Med Staff - Active Staff] - 05/11/25 2:00 pm Disposition Disposition (needs filled in before D/C Order can be placed): Home, Self Care
--- NOTE | 2025-04-11 11:01 | DS.PCM_ITS ---
Providers Date of Admission: 04/09/25 Date of Discharge: 04/11/25 Primary Care Physician: Dr. Arias Lemus DO Reason For Visit: INTRACTABLE N/V W/STANLEY & ELECTROLYTE ABNORMALITIES Diagnosis Discharge Diagnosis (1) Intractable nausea and vomiting: Status: Acute Code(s): R11.2 - Nausea with vomiting, unspecified (2) STANLEY (acute kidney injury): Status: Resolved Code(s): N17.9 - Acute kidney failure, unspecified Plan Patient is a 64-year-old male who presented to [facility] ED on 04/09/2025 with intractable nausea/vomiting with poor p.o. intake and headaches. 1. Intractable nausea/vomiting presumed secondary to cyclical vomiting syndrome ? Admit under inpatient status to [facility]. History of cyclical vomiting syndrome with last hospitalization in October 2024 has had ongoing nausea/vomiting with poor p.o. intake for about 5 days now. Presented with STANLEY with dehydration, elevated lactic acid and electrolyte abnormalities as below. Given IV Benadryl, IV Reglan and IV morphine in the ED with mild to moderate improvement. Improved with IV Reglan and IV Benadryl as needed for now. Patient tolerating diet. Strongly encouraged cessation for marijuana on discharge. 04/10: Vomiting is controlled. Patient wanted to go home in the morning. Patient is still dehydrated therefore recommended to stay. Patient decided to stay. 2. STANLEY with dehydration and elevated lactic acid ? Creatinine 2.24 on admit, baseline around 1.0. Lactic acid 5.0. Presume prerenal STANLEY from dehydration. Given 2 L of IV fluids on admit and remained mildly tachycardic, so we will give another 1 L of IV fluid over several hours tonight. Follow-up a.m. BMP and monitor urine output. 04/10: Creatinine improving, BUN/creatinine 25/1.26. Magnesium 2.6, hypophosphatemia, phosphorus 2.3. Hypokalemia, K3.0. Neutra-Phos ordered. 3. Hypokalemia and hypomagnesemia ? Potassium 3.1, magnesium 1.0 on admit. Phosphorus pending. Presume secondary to poor p.o. intake and GI losses. Replete as needed. 4. Marijuana abuse ? Reportedly has cut back on using marijuana but did use it in the past week or so. Strongly encouraged cessation on discharge. 5. GERD with history of peptic ulcer disease ? EGD back in October showed nonbleeding peptic ulcers chronic gastritis. Continue home p.o. PPI twice daily and sucralfate with meals. Acute anemia with baseline chronic anemia: Patient hemoglobin also dropped from his baseline around 11.2-9.4. Admitting H&H was 12.7 therefore meets criteria for acute anemia. 6. History of CAD with stenting, hypertension, hyperlipidemia ? Hypertensive to the 150s systolic on admit, otherwise stable. Continue home aspirin, Plavix, amlodipine, Toprol, statin and fenofibrate. Holding home lisinopril in setting of STANLEY as above. 7. Anxiety/depression ? Continue home citalopram and trazodone at night. DVT prophylaxis: Heparin subcu CODE STATUS: Full code, verified Laboratory Results 04/09/25 15:42: WBC 21.6 H, RBC 5.36, Hgb 12.7 L, Hct 37.8 L, MCV 70.5 L D, MCH 23.7 L, MCHC 33.6, RDW Std Deviation 45.3 H, RDW Coeff of Florencio 18.9 H, Plt Count 579 H, MPV 10.0, Immature Gran % (Auto) 1.000 H, Neut % (Auto) 88.0 H, Lymph % (Auto) 3.8 L, Gibson % (Auto) 7.1, Eos % (Auto) 0.0, Baso % (Auto) 0.1, Absolute Neuts (auto) 19.0 H, Absolute Lymphs (auto) 0.83, Nucleated RBC % 0, Plt Morphology Comment LARGE, Target Cells 1+, [place] Cells RARE, Sodium 138, P otassium 3.1 L, Chloride 97 L, Carbon Dioxide 15.1 L, Anion Gap 26 H, BUN 35 H, Creatinine 2.24 H, Est GFR (MDRD) Non-Af 32 L, BUN/Creatinine Ratio 15.8, G lucose 141 H, Hemoglobin A1c 5.0, Calcium 10.4, Magnesium 1.0 L, Total Bilirubin 0.44, AST 61 H, ALT 31, Alkaline Phosphatase 54, Troponin T High Sens 30 H, Total Protein 7.8, Albumin 4.6, Globulin 3.2, Albumin/Globulin Ratio 1.4, Lipase 31, b-Hydroxybutyric mmol/L 1.5 H 07/17/25 16:30: Lactic Acid 5.0 H*, Ethyl Alcohol < 10.1 04/09/25 16:45: Urine Color Yellow, Urine Clarity Clear, Urine pH 6.5, Ur Specific [place] 1.010, Urine Protein Negative, Urine Glucose (UA) Normal, Urine Ketones Negative, Urine Occult Blood 25 H, Urine Nitrite Negative, Urine Bilirubin Negative, Urine Urobilinogen Normal, Ur Leukocyte Esterase Negative, Urine RBC 0-5 SEEN, Urine WBC 0 SEEN, Ur Squamous Epith Cells 0 SEEN, Urine Bacteria 0 SEEN, Urine Mucus 0 SEEN 04/09/25 17:28: Specimen Type ART, Sample Site L Radial, pH 7.52 H, Bicarbonate Actual 21.0 L, Total CO2 22, Base Excess -2, O2 Saturation 98, O2 % 21.0, ABG pCO2 25.6 L, ABG pO2 88, Roderick Test Positive, O2 Delivery Device Room Air, Vent Mode Not entered 04/09/25 19:33: Lactic Acid 1.3, Phosphorus 2.2 L, Troponin T Hi Sens 2 Hr 32 H 04/10/25 05:12: WBC 11.3 H, RBC 3.92 L, Hgb 9.4 L, Hct 28.5 L, MCV 72.7 L, MCH 24.0 L, MCHC 33.0, RDW Std Deviation 47.9 H, RDW Coeff of Florencio 18.5 H, Plt Count 329, MPV 10.1, Sodium 136, Potassium 3.0 L, Chloride 103, Carbon Dioxide 20.4 L, Anion Gap 12, BUN 25 H, Creatinine 1.26 H, Estim Creat Clear Calc 58.65, Est GFR (MDRD) Non-Af 63, BUN/Creatinine Ratio 20.2 H, Glucose 84, Calcium 8.6, P hosphorus 2.3 L, Magnesium 2.6 H Medications at Discharge Home Medications amlodipine 10 mg tablet 10 mg PO DAILY 11/11/22 aspirin 81 mg chewable tablet 81 mg PO DAILY 11/11/22 atorvastatin 40 mg tablet 40 mg PO DAILY 11/11/22 citalopram 40 mg tablet 40 mg PO DAILY 11/11/22 sucralfate 1 gram tablet 1 g PO 4X/DAY 11/11/22 acetaminophen 500 mg tablet (Tylenol Extra Strength) 500 mg PO Q6H PRN pain 08/22/23 clopidogrel 75 mg tablet (Plavix) 75 mg PO DAILY 08/22/23 Held on 04/10/25. Instructions: Hold for 5 days metoprolol succinate 25 mg tablet,extended release 24 hr 25 mg PO DAILY 08/22/23 nitroglycerin 0.4 mg sublingual tablet 0.4 mg sublingual Q5M PRN chest pain 08/22/23 dicyclomine 20 mg tablet 20 mg PO Q6H PRN abdominal cramping #20 tabs 06/30/24 lisinopril 40 mg tablet 40 mg PO DAILY 07/10/24 Held on 04/10/25. Instructions: Hold lisinopril for 5 days. trazodone 100 mg tablet 100 mg PO QHS 09/02/24 fenofibrate nanocrystallized 145 mg tablet 145 mg PO DAILY 11/10/24 ondansetron 4 mg disintegrating tablet 4 mg PO Q6H PRN nausea and vomiting #30 tabs 11/12/24 ondansetron 4 mg disintegrating tablet 4 mg PO Q8H PRN PRN Nausea #10 tabs 12/04/24 ondansetron 4 mg disintegrating tablet 4 mg PO Q8H PRN PRN Nausea #10 tabs 04/05/25 ascorbic acid (vitamin C) 500 mg tablet 500 mg PO BID #60 tabs 04/10/25 ferrous sulfate 325 mg (65 mg iron) tablet 325 mg PO QODAY #30 tabs 04/10/25 pantoprazole 40 mg tablet,delayed release 40 mg PO BID 30 days #60 tabs 04/10/25 potassium, sodium phosphates 280 mg-160 mg-250 mg oral powder packet 1 packet PO TID 3 days #10 ea 04/11/25 Physical Exam Narrative Seen and examined. Patient has history of chronic cannabis use. He has been vomiting. Patient also has diarrhea, loose watery bowel movement about 4-5 times per day for 5 days. Had cardiac stents in the past, 7 stents last 1 probably 3 years ago. Patient also with drop in hemoglobin. Physical exam General: Alert, Oriented x3, Cooperative HEENT: Atraumatic, PERRLA, EOMI, Normocephalic. Oral: No Gingival or Mucosal Lesions/ Ulcerations Neck: Supple, No JVD, Negative Carotid Bruits Chest wall/Lungs: Air entry diminished in bilateral lung bases. No crepitation/rhonchi Cardiovascular: Regular rate and rhythm, Normal S1,S2, No M/G/R Abdomen: Bowel Sounds Present, Soft, Non Tender, Non-Distended : No dysuria. No renal angle tenderness. No suprapubic tenderness. Extremities: No edema, Capillary Refill Less than 3 Seconds Skin: No rashes, No breakdown Musculoskeletal: No Tenderness to Palpation of Joints or Extremities Neurological: Cranial nerves II-XII grossly intact, DTR 2+/4. No acute focal neurological deficit. Psych/Mental Status: Normal Affect, Appropriate. Weight / BMI Weight Weight: 158 lb 8.198 oz Body Mass Index (BMI) 22.7 ABG / Lab / Microbiology Data 04/11/25 07:26 04/11/25 07:26 Laboratory: Laboratory Results - last 24 hr 04/09/25 16:45: Urine Color Yellow, Urine Clarity Clear, Urine pH 6.5, Ur Specific [place] 1.010, Urine Protein Negative, Urine Glucose (UA) Normal, Urine Ketones Negative, Urine Occult Blood 25 H, Urine Nitrite Negative, Urine Bilirubin Negative, Urine Urobilinogen Normal, Ur Leukocyte Esterase Negative, Urine RBC 0-5 SEEN, Urine WBC 0 SEEN, Ur Squamous Epith Cells 0 SEEN, Urine Bacteria 0 SEEN, Urine Mucus 0 SEEN 04/11/25 07:26: WBC 7.1, RBC 3.76 L, Hgb 9.0 L, Hct 27.6 L, MCV 73.4 L, MCH 23.9 L, MCHC 32.6, RDW Std Deviation 49.2 H, RDW Coeff of Flore[place]io 19.2 H, Plt Count 311, MPV 10.1, Immature Gran % (Auto) 0.800, Neut % (Auto) 71.4 H, Lymph % (Auto) 15.4 L, Gibson % (Auto) 11.0 H, Eos % (Auto) 1.1, Baso % (Auto) 0.3, Absolute Neuts (auto) 5.1, Absolute Lymphs (auto) 1.09, Nucleated RBC % 0, Sodium 136, Potassium 3.3, Chloride 105, Carbon Dioxide 21.0, Anion Gap 10, BUN 13, Creatinine 0.85, Estim Creat Clear Calc 85.76, Est GFR (MDRD) Non-Af 95, BUN/Creatinine Ratio 14.9, Glucose 84, Calcium 8.2 Microbiology: Microbiology 04/09/25 16:30 Mucosa - Nose SARS-CoV-2, Influenza & RSV (PCR) - Final D/C Instructions DC O2, CPAP, BIPAP Needs Home O2 Discharge instructions: No Discharge Plan Admission Admit Date/Time: 04/09/25 18:50 Primary Reason for Your Visit: Intractable nausea vomiting probably precipitated by cannabinoid Attending Provider: Reynaldo Iniguez Primary Care Provider: Arias Lemus Consulting Providers: Luca Willett Discharge Orders/Prescriptions Prescriptions: New ferrous sulfate 325 mg (65 mg iron) tablet 325 mg PO QODAY Qty: 30 2RF ascorbic acid (vitamin C) 500 mg tablet 500 mg PO BID Qty: 60 2RF potassium, sodium phosphates 280-160-250 mg Powder In Packet 1 packet PO TID 3 Days Qty: 10 0RF Continued metoprolol succinate 25 mg tablet extended release 24 hr 25 mg PO DAILY nitroglycerin 0.4 mg tablet, sublingual 0.4 mg sublingual Q5M PRN (Reason: chest pain) Rx Instructions: do not exceed 3 doses per episode acetaminophen [Tylenol Extra Strength] 500 mg tablet 500 mg PO Q6H PRN (Reason: pain) atorvastatin 40 mg Tablet 40 mg PO DAILY citalopram 40 mg Tablet 40 mg PO DAILY sucralfate 1 gram Tablet 1 g PO 4X/DAY amlodipine 10 mg Tablet 10 mg PO DAILY aspirin 81 mg Tablet,Chewable 81 mg PO DAILY dicyclomine 20 mg tablet 20 mg PO Q6H PRN (Reason: abdominal cramping) Qty: 20 0RF fenofibrate nanocrystallized 145 mg tablet 145 mg PO DAILY ondansetron 4 mg tablet,disintegrating 4 mg PO Q6H PRN (Reason: nausea and vomiting) Qty: 30 0RF ondansetron 4 mg tablet,disintegrating 4 mg PO Q8H PRN PRN (Reason: Nausea) Qty: 10 0RF trazodone 100 mg tablet 100 mg PO QHS ondansetron 4 mg tablet,disintegrating 4 mg PO Q8H PRN PRN (Reason: Nausea) Qty: 10 0RF pantoprazole 40 mg tablet,delayed release (DR/EC) 40 mg PO BID 30 Days Qty: 60 1RF Held clopidogrel [Plavix] 75 mg tablet 75 mg PO DAILY Hold Instructions: Hold for 5 days lisinopril 40 mg tablet 40 mg PO DAILY Hold Instructions: Hold lisinopril for 5 days. Discontinued magnesium chloride [Mag 64] 64 mg Tablet,Delayed Release (Dr/Ec) 128 mg PO BID Qty: 60 0RF Referrals / Follow Up: Arias Lemus DO [Primary Care Provider] - FriendAiden DO [Med Staff - Active Staff] - 05/11/25 2:00 pm Disposition Disposition (needs filled in before D/C Order can be placed): Home, Self Care
== END 2025-04-11 12:15 | disposition home or self-care (01) | DRG 394 ==
LOC: ED 19:24 → MS3 19:54
PROVIDERS: Admitting Provider Hospitalist; Emergency Provider Surgery; PCP Family Medicine; Visit Provider Internal Medicine
DX: R11.15 Cyclical vomiting syndrome unrelated to migraine (principal); N17.9 Acute kidney failure, unspecified; D64.9 Anemia, unspecified; I10 Essential (primary) hypertension; F12.10 Cannabis abuse, uncomplicated; F32.A Depression, unspecified; E78.5 Hyperlipidemia, unspecified; E87.6 Hypokalemia; I25.10 Atherosclerotic heart disease of native coronary artery without angina pectoris; F17.210 Nicotine dependence, cigarettes, uncomplicated; K21.9 Gastro-esophageal reflux disease without esophagitis; E86.0 Dehydration; E83.42 Hypomagnesemia; F41.9 Anxiety disorder, unspecified; F17.290 Nicotine dependence, other tobacco product, uncomplicated; I25.2 Old myocardial infarction; Z95.5 Presence of coronary angioplasty implant and graft; Z79.02 Long term (current) use of antithrombotics/antiplatelets; Z79.82 Long term (current) use of aspirin; Z79.899 Other long term (current) drug therapy; Z87.11 Personal history of peptic ulcer disease
CPT/HCPCS: 36415; 36600; 70450; 71046; 74177; 80048; 80053; 81001; 82010; 82077; 82803; 83036; 83605; 83690; 83735; 84100; 84484; 85025; 85027; 87631; 93005; 94668; 99285; Q9967; A4216